=== PATIENT | female | born 1975 | race Caucasian/White ===

== ENCOUNTER 2021-08-30 12:55 | Outpatient (REF) | payer BC, SELFPAY | END 2021-08-30 12:56 | disposition home or self-care (01) | LOC: LBN 12:55 | PROVIDERS: PCP Nurse Practitioner; Visit Provider Physician Assistant Medical | DX: N39.0 Urinary tract infection, site not specified (principal) | CPT/HCPCS: 87086 ==

== ENCOUNTER 2021-09-20 19:05 | Outpatient (REF) | payer BC, SELFPAY ==
[2021-09-20 20:38] LABS: Abs Immature Grans 0.01 10^3/uL (0.0-0.06); Absolute Basophil Count 0.01 10^3/uL (0.0-0.2); Absolute Eosinophil Count 0.08 10^3/uL (0.0-0.7); Absolute Lymphocyte Count 2.34 10^3/uL (1.2-3.4); Absolute Monocyte Count 0.61 10^3/uL (0.1-0.8); Absolute Neutrophil Count 4.58 10^3/uL (1.2-6.7); Basophils % 0.1; HCT 38.5 % (36.0-46.0); HGB 12.5 g/dL (11.2-15.7); Immature Grans % 0.1; Lymphocytes % 30.7; MCH 27.3 pg (27.0-33.0); MCHC 32.5 % (32.0-36.0); MCV 84.1 fL (80-95); MPV 10.8 fL (8.0-11.0); Neutrophils % 60.1; Nucleated RBC 0 %; Platelet Count 272 10^3/uL (130-400); RBC 4.58 10^6/uL (3.93-5.22); RDW 12.1 % (11.7-14.6); RDW-SD 36.4 fL; WBC 7.63 10^3/uL (4.4-10.8)
[2021-09-20 21:17] LABS: ALT 42 U/L (14-59); AST 27 U/L (15-37); Albumin 3.9 g/dL (3.4-5.0); Alkaline Phosphatase 96 U/L (46-116); Anion Gap 7.5 mmol/L (3-11); BUN 15 mg/dL (7-18); Bilirubin, Total 0.3 mg/dL (0.2-1.0); CO2 27.5 mmol/L (21.0-32.0); CREATININE 0.8 mg/dL (0.55-1.02); Calcium 8.9 mg/dL (8.5-10.1); Chloride 106 mmol/L (98-107); Glucose 91 mg/dL (74-106); Potassium 4.3 mmol/L (3.5-5.1); Sodium 141 mmol/L (136-145); Total Protein 6.7 g/dL (6.4-8.2)
== END 2021-09-20 19:06 | disposition home or self-care (01) ==
LOC: LBN 19:05
PROVIDERS: PCP Nurse Practitioner; Visit Provider Physician Assistant Medical
DX: N39.0 Urinary tract infection, site not specified (principal); R39.82 Chronic bladder pain; R10.9 Unspecified abdominal pain
CPT/HCPCS: 80053; 85025

== ENCOUNTER 2021-10-29 01:18 | Outpatient (CLI) | payer BC, SELFPAY ==
[2021-10-29 22:58] LABS: COVID-19 PCR Negative (Negative); Source Nasal/Nares
== END 2021-10-29 01:19 | disposition home or self-care (01) ==
LOC: LBO 01:19
PROVIDERS: PCP Nurse Practitioner; Visit Provider Obstetrics & Gynecology
DX: Z20.822 Contact with and (suspected) exposure to COVID-19 (principal); Z01.818 Encounter for other preprocedural examination
CPT/HCPCS: 87635

== ENCOUNTER 2021-10-29 01:36 | Outpatient (CLI) | payer BC, SELFPAY ==
[2021-10-29 11:09] LABS: Abs Immature Grans 0.01 10^3/uL (0.0-0.06); Absolute Basophil Count 0.01 10^3/uL (0.0-0.2); Absolute Eosinophil Count 0.13 10^3/uL (0.0-0.7); Absolute Lymphocyte Count 2.19 10^3/uL (1.2-3.4); Absolute Monocyte Count 0.59 10^3/uL (0.1-0.8); Absolute Neutrophil Count 3.62 10^3/uL (1.2-6.7); Basophils % 0.2; HCT 36.8 % (36.0-46.0); HGB 11.7 g/dL (11.2-15.7); Immature Grans % 0.2; Lymphocytes % 33.4; MCH 26.8 pg (27.0-33.0); MCHC 31.8 % (32.0-36.0); MCV 84.2 fL (80-95); Neutrophils % 55.2; Nucleated RBC 0 %; Platelet Count 253 10^3/uL (130-400); RBC 4.37 10^6/uL (3.93-5.22); RDW 12.2 % (11.7-14.6); RDW-SD 37.2 fL; WBC 6.55 10^3/uL (4.4-10.8)
== END 2021-10-29 01:37 | disposition home or self-care (01) ==
LOC: LBO 01:36
PROVIDERS: PCP Nurse Practitioner; Visit Provider Obstetrics & Gynecology
DX: N90.7 Vulvar cyst (principal); R10.2 Pelvic and perineal pain; Z01.818 Encounter for other preprocedural examination; Z01.812 Encounter for preprocedural laboratory examination
CPT/HCPCS: 36415; 86850; 86900; 86901; 85025

== ENCOUNTER 2021-10-31 07:16 | Day surgery (SDC) | payer BC, SELFPAY ==
[2021-10-31 07:21] VITALS: BP 104/74; PULSE 78; RESP 16; TEMP 36.4; O2SAT 96
--- NOTE | 2021-10-31 07:59 | W.ANESPRE ---
General Info Date of Service Date Performed: 10/31/21 Height: 5 ft 1 in Weight: 64.8 kg Body Mass Index (BMI): 26.9 Surgical Procedure: Operation Date: 10/31/21 08:40 Proposed Procedure Side Surgeon p Excision Rt Labial Cyst Right Nara Post DO Meds Allergies and Home Medications Allergies Allergy/AdvReac Type Severity Reaction Status Date / Time bupropion [From Wellbutrin] Allergy Severe Pt states Unverified 10/31/21 07:49 serum sickness onion Allergy Severe Anaphylaxis Unverified 10/31/21 07:42 Home Medication Medication Instructions Recorded omeprazole 20 mg capsule,delayed 20 mg PO TID cap 09/12/21 release ibuprofen 200 mg capsule 600 mg PO BID 10/31/21 Current Visit Medications: Current Medications Generic Name Dose Route Start Last Admin Trade Name Freq PRN Reason Stop Dose Admin Ringer's Solution 1,000 mls @ 125 mls/hr 10/31/21 06:00 IV 11/12/21 23:59 INFUSION JULIO IV Miscellaneous Supplies 1 each 10/31/21 06:00 Iv Access IV 11/12/21 23:59 DIRECTED JULIO Sodium Chloride 0 ml 10/31/21 06:00 Normal Saline Flush 10 Ml Syr IV 11/12/21 23:59 PRN PRN Sodium Chloride 0 ml 10/31/21 06:00 Normal Saline 10 Ml Vial IJ 11/12/21 23:59 DIRECTED PRN Sterile Water 0 ml 10/31/21 06:00 Water,Injection,Sterile 10 Ml Vial IJ 11/12/21 23:59 DIRECTED PRN PFSH Active Problems Active Problems: Problem Status Onset Code Pelvic pain R10.2 Labial cyst N90.7 Hx of endometriosis Z87.42 Medical History Medical History (Updated 10/31/21 @ 07:49 by Jacey Harvey RN) Barretts esophagus Chronic bladder pain Hiatal hernia with GERD Left flank pain Tibial plateau fracture, left orif, metal in left tibia UTI (urinary tract infection) Medical History Comments:: left knee metal implants Surgical History Surgical History (Updated 10/31/21 @ 07:42 by Jacey Harvey RN) H/O hysterectomy with oophorectomy Unilateral oophorectomy for endometriosis History of cholecystectomy History of laparoscopy History of Magdaleno fundoplication History of partial gastrectomy Hx of section Tobacco Smoking/Tobacco Use Status: Former Tobacco Use Alcohol Alcohol Intake: never Substance Use Substance use type: does not use Prental History History 3 Para 2 Hx # Term Pregnancies 2 Multiple births Hx # Pregnancies Ectopic pregnancies AB induced Hx Number of Living Children 2 AB spontaneous Vital Signs and Lab Results Vital Signs Most Recent Vital Signs in EMR: Most Recent Vital Signs Temp Pulse Resp BP Pulse Ox 36.4 C L 78 16 104/74 96 10/31/21 07:21 10/31/21 07:21 10/31/21 07:21 10/31/21 07:21 10/31/21 07:21 Lab Results Blood Type / Crossmatch: Patient ABO/Rh B Positive 10/29/21 Antibody Screen NEGATIVE 10/29/21 Complete Blood Count: White Blood Count 6.55 10^3/uL (4.4-10.8) 10/29/21 11:00 10/29/21 Red Blood Count 4.37 10^6/uL (3.93-5.22) 10/29/21 11:00 10/29/21 Hemoglobin 11.7 g/dL (11.2-15.7) 10/29/21 11:00 10/29/21 Hematocrit 36.8 % (36.0-46.0) 10/29/21 11:00 10/29/21 Platelet Count 253 10^3/uL (130-400) 10/29/21 11:00 10/29/21 Complete Metabolic Panel: No Data to Display Liver Function Panel: No Data to Display Coagulation Panel: No Data to Display Cardiac Panel: No Data to Display Arterial Blood Gas: No Data to Display Venous Blood Gas: No Data to Display Pancreas Panel: No Data to Display Thyroid Panel: No Data to Display Infectious Disease: Coronavirus (COVID-19)(PCR) Negative (Negative) 10/29/21 11:04 10/29/21 Coronavirus 2019 Source Nasal/Nares 10/29/21 11:04 10/29/21 Blood Cultures: No Data to Display Toxicology Panel: No Data to Display Panel: No Data to Display Anesthesia Assessment and Plan Anesthesia History Personal History: PONV Family History: No Family History of Anesthesia Complications Exercise Tolerance Exercise Tolerance: Metabolic Equivalents>4 Pertinent Negatives Pertinent Negatives: No Symptoms of GERD, No Major Cardiovascular Symptoms or Complaints, No Major Pulmonary Symptoms or Complaints and No History of CVA/TIA Cardiac & Pulmonary Exam Cardiac Exam: Normal S1/S2 Heart Sounds Pulmonary Exam: Clear Bilateral Breath Sounds Implantable Cardiac Device Does patient have a Pacemaker or an ICD?: No Airway Exam Known Difficult Airway: No Mallampati Class: 2 Mouth Opening: Normal (> 3cm) Thyromental Distance: Greater than 3 cm Neck Range of Motion: Full ROM Neck Circumference: Normal Teeth Condition: Normal Dentition ASA Classification ASA Score: ASA 2 Emergency Case?: No NPO Status NPO Status: NPO Clears >2 hours, Solids >8 hours Status Status: History of Hysterectomy Anesthesia Plan Resuscitation Status: Full Code Anesthesia Technique: General Anesthesia Airway Planned: Natural Airway Monitors Used: Standard Monitors
[2021-10-31] MEDS: Lactated Ringers 1,000 ML 125 ML IV (08:10)
[2021-10-31 08:22] VITALS: BMI 26.9
[2021-10-31] MEDS: Lidocaine 1% Multi-Dose 50 ML VIAL (09:06)
--- NOTE | 2021-10-31 09:21 | LABIA_PTH ---
PATIENT: Mora Bolanos LOC: [facility] U#:[id number] AGE/SX: 46/F ROOM: RE10/31/[address]: Nara Post DO : 1975 BED: DIS: 10/31/2021 SPEC #: [id number] RECD: 10/31/21 12:51 STATUS: SOPHIE RE #: [id number] AMBER: 10/31/21 09:[address]: Nara Post DEPT: Surgical Specimen RECD BY: Silvia Cruz ENTERED: 10/31/21 12:52 SP TYPE: LABIA OTHR DR: Laura Ross Tissues: 1 - LABIA BX Procedures: GROSS AND MICRO LEVEL 3 Comments: [id number]
[2021-10-31 09:30] VITALS: PULSE 70; TEMP 36.4
--- NOTE | 2021-10-31 09:34 | W.PM.OP ---
Date of service: 10/31/21 Time of Service: 09:34 Operative Note Operative Note DATE OF PROCEDURE: 10/31/21 PRE-OP DIAGNOSIS: Labial cyst POST-OP DIAGNOSIS: same PROCEDURE: Excision of labial cyst, and removal of sebaceous cyst of the vulva SURGEON: Nara Post ANESTHESIA TYPE: MAC Refer to Anesthesia Record ESTIMATED BLOOD LOSS: 5 PATHOLOGY: other (1. Labial cyst) COMPLICATIONS: None Patient was transported to: same day Patient's condition: stable Indications: Symptomatic cyst of the right labia minora. Irritation from sebaceous cyst of the right labia majora Findings: 1 cm mobile right labial cyst. Small sebaceous cyst of the right labia majora Procedure Description: Patient taken the operating suite with an IV running where she is placed in dorsal supine position. Anesthesia administered. Then placed in the modified dorsolithotomy position in yellowfin stirrups and prepped and draped in the usual sterile fashion. Exam revealed a freely mobile approximately 1 cm cyst of the right labia minora and a very small sebaceous cyst at the 9 o'clock position of the vulva in the labia majora. Initial attention was turned to the freely mobile cyst. A 1 cm incision was made at the lateral aspect of the right labia minora. With meticulous blunt and sharp dissection around the cystic structure the entire cyst was elevated through the incision and removed. Base of the cyst cavity was then reapproximated with 4-0 Vicryl suture in a mattress fashion and skin edge reapproximated with 4-0 undyed Monocryl in a subcuticular fashion. Area was noted to be hemostatic. At this point, attention was turned to the sebaceous cyst which was infiltrated with lidocaine, 1% and incised. Sebaceous material removed. Cyst wall identified and removed. Puncture wound will heal by secondary intent. EBL: 5 mL Complications: None apparent Pathology: Right labial cyst for examination Anesthesia Per record Fluids: Crystalloid per anesthesia
[2021-10-31 10:00] VITALS: BP 113/67; PULSE 60; RESP 16; TEMP 36.5; O2SAT 100
[2021-10-31] MEDS: oxyCODONE 5 MG TAB PO (10:21)
[2021-10-31 11:15] VITALS: BP 110/65; PULSE 67; RESP 16; TEMP 36.2; O2SAT 99
--- NOTE | 2021-10-31 12:13 | W.ANESPOSTOP ---
Postoperative Evaluation Date, Time and Location Date Performed: 10/31/21 Time Performed: 11:28 Patient Location: Day Surgery Unit Vital Signs Most Recent Imported Vital Signs: Most Recent Vital Signs Temp Pulse Resp BP Pulse Ox 36.5 C 60 16 113/67 100 10/31/21 10:00 10/31/21 10:00 10/31/21 10:00 10/31/21 10:00 10/31/21 10:00 Pain Score Most Recent Pain Score: Most Recent Pain Score Pain Level 8 10/31/21 10:00 Assessment Mental Status: Awake (Alert & Oriented to Patient Baseline) Airway and Respiratory Function: Patent airway with normal (patient baseline) respiratory exam Cardiovascular Function: Hemodynamically Stable Hydration Status: Adequately Hydrated Nausea & Vomiting: No Nausea or Vomiting Pain: Pain is tolerable per patient (4/10) Peripheral Nerve Block: Patient did not receive a nerve block
== END 2021-10-31 11:30 | disposition home or self-care (01) ==
PROVIDERS: PCP Nurse Practitioner; Visit Provider Obstetrics & Gynecology
PROC: (CPT 11420; principal; 2021-10-31 08:30)
DX: N90.7 Vulvar cyst (principal); N94.89 Other specified conditions associated with female genital organs and menstrual cycle
CPT/HCPCS: 11420; 11421; 88305; 88304; J1100; J1885; J2001; J2405

== ENCOUNTER 2022-08-13 21:28 | Outpatient (REF) | payer BC, SELFPAY ==
[2022-08-13 21:50] LABS: Abs Immature Grans 0.01 10^3/uL (0.0-0.06); Absolute Basophil Count 0.02 10^3/uL (0.0-0.2); Absolute Eosinophil Count 0.04 10^3/uL (0.0-0.7); Absolute Lymphocyte Count 2.04 10^3/uL (1.2-3.4); Absolute Monocyte Count 0.43 10^3/uL (0.1-0.8); Absolute Neutrophil Count 3.17 10^3/uL (1.2-6.7); Basophils % 0.4; Eosinophils % 0.7; HGB 12.3 g/dL (11.2-15.7); Immature Grans % 0.2; Lymphocytes % 35.7; MCH 26.2 pg (27.0-33.0); MCHC 32.4 % (32.0-36.0); MCV 81 fL (80-95); MPV 11.2 fL (8.0-11.0); Monocytes % 7.5; Neutrophils % 55.5; Platelet Count 269 10^3/uL (130-400); RDW 12.1 % (11.7-14.6); RDW-SD 35.9 fL; WBC 5.71 10^3/uL (4.4-10.8)
[2022-08-13 21:52] LABS: ESR 10 mm/hr (0-20)
[2022-08-13 22:01] LABS: ALT 32 U/L (14-59); AST 29 U/L (15-37); Albumin 3.9 g/dL (3.4-5.0); Alkaline Phosphatase 122 U/L (46-116); Anion Gap 6.6 mmol/L (3-11); BUN 11 mg/dL (7-18); Bilirubin, Total 0.3 mg/dL (0.2-1.0); C-Reactive Protein < 0.05 mg/dL (0.0-0.3); CO2 29.4 mmol/L (21.0-32.0); CREATININE 0.9 mg/dL (0.55-1.02); Chloride 101 mmol/L (98-107); Estimated GFR 78.86 (mL/min/1.73m2); Glucose 95 mg/dL (74-106); Potassium 4.3 mmol/L (3.5-5.1); Sodium 137 mmol/L (136-145); Total Protein 6.9 g/dL (6.4-8.2)
[2022-08-15 10:30] LABS: Lyme Ab w Rflx to Lyme Confirm Negative (Negative)
[2022-08-15 10:37] LABS: Cyclic Citrullinated Peptide <2.5 U/mL (<5.0)
[2022-08-15 14:37] LABS: ANA Interpretation Positive (Negative); ANA Titer Pattern 1:320 Speckled
[2022-08-17 18:25] LABS: Anaplasma phagocytophilum Negative (Negative); B. miyamotoi PCR Negative (Negative); Babesia divergens/MO-1 Negative (Negative); Babesia duncani Negative (Negative); Babesia microti Negative (Negative); Ehrlichia chaffeensis Negative (Negative); Ehrlichia ewingii/canis Negative (Negative); Ehrlichia muris eauclairensis Negative (Negative)
== END 2022-08-13 21:29 | disposition home or self-care (01) ==
LOC: LBN 21:28
PROVIDERS: PCP Nurse Practitioner; Visit Provider Nurse Practitioner Family
DX: M25.59 Pain in other specified joint (principal); Z83.2 Family history of diseases of the blood and blood-forming organs and certain disorders involving the immune mechanism
CPT/HCPCS: 80053; 85652; 86200; 87798; 85025; 86038; 86140; 86618

== ENCOUNTER 2022-09-19 01:14 | Outpatient (CLI) | payer BC, SELFPAY ==
--- NOTE | 2022-09-19 | DI.US_ITS ---
Exam(s) US BREAST LT COMPLETE US BREAST RT COMPLETE MG MAMMO DIAGNOSTIC BI EXAM: MG MAMMO DIAGNOSTIC BI AND BILATERAL COMPLETE BREAST ULTRASOUND CLINICAL HISTORY: new increasing mass right side,2:00 outer,painful lumpy breast,n64.4,n63.10. TECHNIQUE: Bilateral CC and MLO views were performed and also performed 3D spot mammographic images of both breasts were obtained with 3D tomosynthesis technique and utilizing computer aided detection (CAD). Also performed complete bilateral breast ultrasound including all 4 quadrants of both breasts, the re troareolar regions, and both axillary regions. COMPARISON: Prior mammograms are from outside institution and have not yet arrived. This 47-year-old patient apparently feels 3 areas of lumps in the right breast. She has had a prior negative biopsy the right breast a few years ago. FINDINGS: DIAGNOSTIC BILATERAL MAMMOGRAM: There are no findings in the immediate vicinity of the biopsy marker clip in the right breast. In the anterior aspect right breast on the CC view there is a well-defined oval 5 x 3 millimeter nodu lar density located 3 cm in from the nipple, slightly medial of center. This has a small notch and m ay be a benign intramammary lymph node. Posterolaterally in the right breast there is a benign-appea ring lymph node noted peripherally. Skin marker is placed over 2 areas of which she feels are breast lumps on the right side placed and s pot compression view of this area was performed and did not reveal discernible nodule. In the opposite-left breast on the MLO view there is suggestion of nodular 2 adjacent small nodules l ocated 6 cm in from the nipple and with total measurement of 1.8 by 0.7 cm. These are less convincin g for a true nodule on 3D spot compression imaging through this area. There are no malignant-appearing microcalcification groups in either breast. No significant architec tural distortion nor skin thickening-traction. COMPLETE BILATERAL BREAST ULTRASOUND: Left breast: No significant focal findings in all 4 quadrants, further evidence that the finding on t he mammogram is most probably just asymmetric tissue, as opposed to a true nodule. No axillary adeno smiley. Right breast: There is no ultrasound finding to correspond to the 5 x 3 millimeter nodule seen anteri mal in the right breast on the CC view. Therefore this is probably a benign intramammary lymph node . In addition, there are no focal ultrasound findings in all 4 quadrants of the breast with this patien t scanned both supine and sitting. There are no ultrasound findings in the 2 areas where she apparen feli feels nodule. More superiorly there is a palpable finding which corresponds to a prominent rib on ultrasound. Ther e no breast tissue findings on ultrasound through this area. However, it is truly palpable as an asy mmetry. No adenopathy evident in the right axilla. IMPRESSION: 1. No radiographic evidence of malignancy in either breast. An addendum will follow if and when we r eceive the prior outside mammograms for comparison, particularly with respect of the left breast find ings. 2. Recommend repeat right breast mammogram and ultrasound in 6 months for follow-up of the mammograph ically visible nodule anteriorly in the right breast (which is not visible on ultrasound today and th erefore may represent a benign intramammary lymph node). 3. An addendum will follow when we receive the prior outside mammograms from [place]. If you have not received this addendum in 2 weeks then please contact us in the Radiology Department. 4. In the meantime I recommend CT or MRI scan of the chest wall for study of the anterior right chest wall abnormality which is palpable anteriorly on the right side.. The patient was informed of the findings and follow-up recommendations by myself prior to leaving the department today. BI-RADS Category 0 - Assessment Incomplete: Need additional imaging evaluation as described above and also be compared to her prior outside mammograms when they arrive. Breast Density - Category B - Scattered areas of fibroglandular density Breast density Category C or D implies that the patient has dense breast tissue. Dense breast tissue can make it harder to find cancer on a mammogram. Dense breast tissue is also associated with an incr eased risk of breast cancer. This information about the result of the mammogram report was provided to the patient to raise their awareness. Use this report when you speak with the patient about their risks for breast cancer, which includes their family history. At that time, you may recommend additional screening tests (Ultrasoun d or MRI) as these tests may add significant information. A negative radiographic report should not delay biopsy if a dominant or clinically suspicious mass is present. Up to ten percent of cancers are not identified on mammography. A negative report may reinforce clinical impression. Adenosis and dense breasts may obscure an underlying neoplasm. False positive reports average 6 to 10%. Patient will receive a letter notifying them of these results.
--- NOTE | 2022-09-19 06:45 | DI.RAD_ITS ---
Exam(s) XR WRIST LT COMPLETE EXAM: XR WRIST LT COMPLETE CLINICAL HISTORY: pain after trauma,m25.532. TECHNIQUE: 2D digital imaging was performed. COMPARISON: No exams were available for comparison FINDINGS: 3 views No fracture dislocation significant ulnar. Scaphoid appears unremarkable. Scapholunate distance nor mal. No osseous lesions. First carpometacarpal joint appears unremarkable. IMPRESSION: No significant osseous findings in the wrist. DATA REPOSITORY: RADIATION DOSE DELIVERED:
--- NOTE | 2022-09-19 06:45 | DI.US_ITS ---
Exam(s) US SOFT TISSUE EXTREMITY EXAM: US SOFT TISSUE EXTREMITY CLINICAL HISTORY: pain, lumps lateral aspect lt upper arm, m79.622. TECHNIQUE: Ultrasound was performed using standard protocol. COMPARISON: US US RENAL from 09/19/2021 FINDINGS: Sonographic assessment utilizing grayscale and color Doppler imaging was performed and targeted to th e area of clinical concern. There are 3 areas of apparent concern left upper extremity. Dedicated ultrasound of all 3 areas reveals no evidence of solid or significant cystic lesions. Also no obvious discernible lipomas at these locations. IMPRESSION: Negative ultrasound study of the areas concern in the left upper extremity. DATA REPOSITORY:
[2022-09-19 08:27] LABS: ESR 11 mm/hr (0-20)
[2022-09-19 08:28] LABS: HCT 39.2 % (36.0-46.0); HGB 12.4 g/dL (11.2-15.7); MCH 25.7 pg (27.0-33.0); MCHC 31.6 % (32.0-36.0); MCV 81 fL (80-95); MPV 10.2 fL (8.0-11.0); Platelet Count 228 10^3/uL (130-400); RBC 4.83 10^6/uL (3.93-5.22); RDW 12.1 % (11.7-14.6); WBC 5.31 10^3/uL (4.4-10.8)
[2022-09-19 09:14] LABS: ALT 27 U/L (14-59); AST 32 U/L (15-37); Albumin 3.9 g/dL (3.4-5.0); Alkaline Phosphatase 114 U/L (46-116); Anion Gap 7.9 mmol/L (3-11); BUN 13 mg/dL (7-18); Bilirubin, Total 0.5 mg/dL (0.2-1.0); CO2 29.1 mmol/L (21.0-32.0); CREATININE 0.8 mg/dL (0.55-1.02); Calcium 9.2 mg/dL (8.5-10.1); Chloride 104 mmol/L (98-107); Estimated GFR 90.83 (mL/min/1.73m2); Ferritin 13 ng/mL (8-252); Glucose 92 mg/dL (74-106); Potassium 4.2 mmol/L (3.5-5.1); Sodium 141 mmol/L (136-145); Total Protein 7.3 g/dL (6.4-8.2)
[2022-09-19 09:18] LABS: Iron 99 ug/dL (50-170); Total Iron Binding Capacity 458 ug/dL (250-450)
[2022-09-19 09:28] LABS: C-Reactive Protein < 0.05 mg/dL (0.0-0.3)
== END 2022-09-19 01:34 ==
PROVIDERS: PCP Nurse Practitioner Family; Visit Provider Nurse Practitioner Family
DX: N64.4 Mastodynia; M79.622 Pain in left upper arm; M25.532 Pain in left wrist; D50.9 Iron deficiency anemia, unspecified; R71.8 Other abnormality of red blood cells; R79.89 Other specified abnormal findings of blood chemistry; G25.81 Restless legs syndrome; R92.8 Other abnormal and inconclusive findings on diagnostic imaging of breast
CPT/HCPCS: 36415; 76642; 76881; 77062; 77066; 80053; 85027; 85652; 73110; 82728; 83540; 83550; 86140; G0279

== ENCOUNTER 2022-10-08 18:36 | Outpatient (CLI) | payer BC, SELFPAY ==
--- NOTE | 2022-10-08 18:30 | RT.EKG_ITS ---
APPROVED REPORT Exam: Resting ECG Reason for Exam: syncope Patient Location: O HR:65 bpm ECG Measurements Heart Rate 65 AXIS OK 129 P 3 QRSd 96 QRS 4 QT 396 T 39 QTc 412 Conclusion Sinus rhythm...normal P axis, V-rate 50- 99 Normal Electrocardiogram
== END 2022-10-08 18:37 | disposition home or self-care (01) ==
LOC: DI.CM 20:23
PROVIDERS: PCP Nurse Practitioner Family; Visit Provider Nurse Practitioner Family
DX: R55 Syncope and collapse (principal)
CPT/HCPCS: 93010

== ENCOUNTER 2022-11-22 00:08 | Outpatient (CLI) | payer BC, SELFPAY ==
--- NOTE | 2022-11-22 10:30 | DI.DEXA_ITS ---
Exam(s) XR DEXA BONE DENSITY W/WO AL EXAM: XR DEXA BONE DENSITY W/WO AL CLINICAL HISTORY: screening for osteoporosis in postmenopausal woman,z78.0 TECHNIQUE: COMPARISON: No exams were available for comparison FINDINGS: Lateral Spine Image: Unremarkable. No compression deformities identified. Left hip: Total T-Score: -1.9 Total Z-Score: -1.5 T- and Z-scores: Findings consistent with osteopenia. Lumbar Spine: Total T-Score: -2.1 Total Z-Score: -1.4 T- and Z-scores: Findings are consistent with osteopenia. IMPRESSION: Osteopenia in the lumbar spine and left hip.
== END 2022-11-22 00:28 ==
LOC: DI 00:08
PROVIDERS: PCP Nurse Practitioner Family; Visit Provider Nurse Practitioner Family
DX: Z78.0 Asymptomatic menopausal state (principal); Z13.820 Encounter for screening for osteoporosis; M85.88 Other specified disorders of bone density and structure, other site
CPT/HCPCS: 77080

== ENCOUNTER 2023-03-06 17:07 | Outpatient (CLI) | payer OTHER, SELFPAY ==
[2023-03-06 16:47] LABS: ESR 5 mm/hr (0-20); HCT 36.8 % (36.0-46.0); HGB 11.8 g/dL (11.2-15.7); MCH 25.6 pg (27.0-33.0); MCHC 32.1 % (32.0-36.0); MCV 80 fL (80-95); MPV 9.8 fL (8.0-11.0); Platelet Count 278 10^3/uL (130-400); RBC 4.61 10^6/uL (3.93-5.22); RDW 12.9 % (11.7-14.6); RDW-SD 36.6 fL
[2023-03-06 17:31] LABS: ALT 28 U/L (14-59); AST 22 U/L (15-37); Albumin 3.7 g/dL (3.4-5.0); Alkaline Phosphatase 116 U/L (46-116); BUN 11 mg/dL (7-18); Bilirubin, Total 0.2 mg/dL (0.2-1.0); CREATININE 0.8 mg/dL (0.55-1.02); Calcium 8.9 mg/dL (8.5-10.1); Chloride 105 mmol/L (98-107); Estimated GFR 90.83 (mL/min/1.73m2); Glucose 116 mg/dL (74-106); Potassium 4.5 mmol/L (3.5-5.1); Sodium 143 mmol/L (136-145); Total Protein 7.3 g/dL (6.4-8.2)
[2023-03-06 17:43] LABS: Iron 26 ug/dL (50-170)
[2023-03-07 10:51] LABS: Lab Add On Test DONE
[2023-03-07 11:14] LABS: Total Iron Binding Capacity 468 ug/dL (250-450)
== END 2023-03-06 17:08 | disposition home or self-care (01) ==
LOC: LBO 17:07
PROVIDERS: PCP Nurse Practitioner Family; Visit Provider Nurse Practitioner Family
DX: D50.9 Iron deficiency anemia, unspecified (principal); M25.50 Pain in unspecified joint; R79.89 Other specified abnormal findings of blood chemistry
CPT/HCPCS: 36415; 80053; 85027; 85652; 83540; 83550

== ENCOUNTER 2023-03-13 04:20 | Outpatient (CLI) | payer OTHER, SELFPAY ==
[2023-03-13 16:45] LABS: HCT 36.2 % (36.0-46.0); HGB 11.4 g/dL (11.2-15.7); MCH 25.5 pg (27.0-33.0); MCHC 31.5 % (32.0-36.0); MCV 81 fL (80-95); MPV 10.5 fL (8.0-11.0); Platelet Count 271 10^3/uL (130-400); RBC 4.47 10^6/uL (3.93-5.22); RDW 12.7 % (11.7-14.6); RDW-SD 37.3 fL; WBC 6.85 10^3/uL (4.4-10.8)
[2023-03-13 17:44] LABS: Iron 41 ug/dL (50-170); Total Iron Binding Capacity 452 ug/dL (250-450)
[2023-03-13 17:58] LABS: Ferritin 7 ng/mL (8-252)
[2023-03-17 13:08] LABS: IgA 212 mg/dL (85-499); Interpretation (See Note); Tissue Transglutaminase IgA <1.2 U/mL (<4.0)
== END 2023-03-13 04:21 | disposition home or self-care (01) ==
LOC: LBO 04:20
PROVIDERS: PCP Nurse Practitioner Family; Visit Provider Nurse Practitioner Family
DX: D50.9 Iron deficiency anemia, unspecified (principal)
CPT/HCPCS: 82784; 83516; 85027; 82728; 83540; 83550

== ENCOUNTER 2023-07-02 10:07 | Outpatient (CLI) | payer OTHER, SELFPAY ==
[2023-07-02 08:38] LABS: HCT 35.9 % (36.0-46.0); HGB 11.2 g/dL (11.2-15.7); MCH 24.8 pg (27.0-33.0); MCHC 31.2 % (32.0-36.0); MCV 80 fL (80-95); MPV 10.1 fL (8.0-11.0); Platelet Count 235 10^3/uL (130-400); RBC 4.51 10^6/uL (3.93-5.22); RDW 12.8 % (11.7-14.6); RDW-SD 36.2 fL; WBC 4.74 10^3/uL (4.4-10.8)
[2023-07-02 09:14] LABS: Iron 50 ug/dL (50-170); Total Iron Binding Capacity 468 ug/dL (250-450)
[2023-07-02 09:22] LABS: ALT 26 U/L (14-59); AST 24 U/L (15-37); Albumin 3.6 g/dL (3.4-5.0); Alkaline Phosphatase 120 U/L (46-116); Anion Gap 5.9 mmol/L (3-11); BUN 10 mg/dL (7-18); Bilirubin, Total 0.5 mg/dL (0.2-1.0); CO2 29.1 mmol/L (21.0-32.0); CREATININE 0.8 mg/dL (0.55-1.02); Calcium 9.3 mg/dL (8.5-10.1); Chloride 104 mmol/L (98-107); Estimated GFR 90.27 (mL/min/1.73m2); Ferritin 9 ng/mL (8-252); Glucose 90 mg/dL (74-106); Sodium 139 mmol/L (136-145); Total Protein 7.2 g/dL (6.4-8.2)
== END 2023-07-02 10:08 | disposition home or self-care (01) ==
LOC: LBO 10:07
PROVIDERS: PCP Nurse Practitioner Family; Visit Provider Nurse Practitioner Family
DX: D50.9 Iron deficiency anemia, unspecified (principal); R79.89 Other specified abnormal findings of blood chemistry
CPT/HCPCS: 36415; 80053; 85027; 82728; 83540; 83550

== ENCOUNTER 2023-11-05 14:07 | Outpatient (REF) | payer OTHER, SELFPAY ==
[2023-11-06 21:28] LABS: Bilirubin Negative (Negative); Blood Negative (Negative); Clarity Clear (Clear); Glucose Negative (Negative); Ketones Negative (Negative); Leukocyte Esterase Small (Negative); Nitrite Positive (Negative); Specific Gravity 1.025 (1.005-1.025); Urobilinogen 0.2 mg/dL (Up to 0.2); pH 5.5 (5-8)
[2023-11-06 21:37] LABS: Bacteria Few HPF (Negative); C & S Indicated? Yes; Casts Negative LPF (Negative); Crystals Negative HPF (Negative); Epithelial Cells Few HPF (Negative); Mucus Trace (Negative); RBC 0-2 HPF (0-2)
== END 2023-11-05 14:08 | disposition home or self-care (01) ==
LOC: LBN 14:07
PROVIDERS: PCP Nurse Practitioner Family; Visit Provider Nurse Practitioner Family
DX: R30.0 Dysuria (principal); R35.0 Frequency of micturition; R31.9 Hematuria, unspecified
CPT/HCPCS: 87077; 81003; 81015; 87086; 87186

== ENCOUNTER 2023-11-11 09:44 | Outpatient (CLI) | payer OTHER, SELFPAY ==
[2023-11-11 07:49] LABS: Abs Immature Grans 0.01 10^3/uL (0.0-0.06); Absolute Basophil Count 0.01 10^3/uL (0.0-0.2); Absolute Eosinophil Count 0.05 10^3/uL (0.0-0.7); Absolute Lymphocyte Count 2.17 10^3/uL (1.2-3.4); Absolute Neutrophil Count 2.43 10^3/uL (1.2-6.7); Basophils % 0.2; HGB 12.8 g/dL (11.2-15.7); Immature Grans % 0.2; Lymphocytes % 42.8; MCH 25.6 pg (27.0-33.0); MCV 80 fL (80-95); MPV 9.7 fL (8.0-11.0); Monocytes % 7.9; Neutrophils % 47.9; Platelet Count 233 10^3/uL (130-400); RDW 14.6 % (11.7-14.6); RDW-SD 42.5 fL; WBC 5.07 10^3/uL (4.4-10.8)
[2023-11-11 08:05] LABS: ALT 52 U/L (14-59); AST 44 U/L (15-37); Albumin 3.7 g/dL (3.4-5.0); Alkaline Phosphatase 125 U/L (46-116); Anion Gap 7.8 mmol/L (3-11); BUN 8 mg/dL (7-18); Bilirubin, Total 0.4 mg/dL (0.2-1.0); CO2 29.2 mmol/L (21.0-32.0); CREATININE 0.8 mg/dL (0.55-1.02); Calcium 9.1 mg/dL (8.5-10.1); Chloride 105 mmol/L (98-107); Estimated GFR 90.27 (mL/min/1.73m2); Glucose 63 mg/dL (74-106); Potassium 4.3 mmol/L (3.5-5.1); Sodium 142 mmol/L (136-145); Total Protein 7.1 g/dL (6.4-8.2)
== END 2023-11-11 09:45 | disposition home or self-care (01) ==
LOC: LBO 09:44
PROVIDERS: PCP Nurse Practitioner Family; Visit Provider Physician Assistant
DX: R10.9 Unspecified abdominal pain (principal)
CPT/HCPCS: 36415; 80053; 85025

== ENCOUNTER 2023-12-23 14:40 | Outpatient (REF) | payer OTHER, SELFPAY ==
[2023-12-23 21:06] LABS: Abs Immature Grans 0.02 10^3/uL (0.0-0.06); Absolute Basophil Count 0.03 10^3/uL (0.0-0.2); Absolute Eosinophil Count 0.07 10^3/uL (0.0-0.7); Absolute Lymphocyte Count 2.58 10^3/uL (1.2-3.4); Absolute Monocyte Count 0.39 10^3/uL (0.1-0.8); Absolute Neutrophil Count 3.58 10^3/uL (1.2-6.7); Basophils % 0.4; HCT 43.3 % (36.0-46.0); HGB 14.2 g/dL (11.2-15.7); Immature Grans % 0.3; Lymphocytes % 38.7; MCHC 32.8 % (32.0-36.0); MCV 82 fL (80-95); MPV 10.7 fL (8.0-11.0); Monocytes % 5.8; Neutrophils % 53.8; Platelet Count 260 10^3/uL (130-400); RBC 5.26 10^6/uL (3.93-5.22); RDW-SD 41.6 fL; WBC 6.67 10^3/uL (4.4-10.8)
[2023-12-23 21:20] LABS: Iron 84 ug/dL (50-170)
[2023-12-23 21:40] LABS: Hemoglobin A1C 5.5 % (<5.7)
[2023-12-23 21:43] LABS: ALT 43 U/L (14-59); AST 30 U/L (15-37); Albumin 4.1 g/dL (3.4-5.0); Alkaline Phosphatase 134 U/L (46-116); Anion Gap 10.8 mmol/L (3-11); BUN 11 mg/dL (7-18); Bilirubin, Total 0.4 mg/dL (0.2-1.0); CO2 27.2 mmol/L (21.0-32.0); CREATININE 0.8 mg/dL (0.55-1.02); Calcium 9.1 mg/dL (8.5-10.1); Chloride 105 mmol/L (98-107); Estimated GFR 90.27 (mL/min/1.73m2); Ferritin 161 ng/mL (8-252); Folate 12.6 ng/mL (8.6-20.0); Glucose 126 mg/dL (74-106); Potassium 4.3 mmol/L (3.5-5.1); Sodium 143 mmol/L (136-145); Total Protein 7.2 g/dL (6.4-8.2); Vitamin B12 392 pg/mL (193-986); Vitamin D 25 Total 9.6 ng/mL (30-100)
[2023-12-24 21:52] LABS: Parathyroid Hormone,Intact 58 pg/mL (19-88)
[2023-12-25 08:50] LABS: Prealbumin 24 mg/dL (20-40)
[2023-12-27 11:54] LABS: Thiamine (Vitamin B1), WB 110 nmol/L (70-180)
== END 2023-12-23 14:41 | disposition home or self-care (01) ==
LOC: LBN 14:40
PROVIDERS: PCP Nurse Practitioner Family; Visit Provider Nurse Practitioner Family
DX: Z90.3 Acquired absence of stomach [part of] (principal); R79.89 Other specified abnormal findings of blood chemistry; D50.9 Iron deficiency anemia, unspecified; R71.8 Other abnormality of red blood cells
CPT/HCPCS: 80053; 82306; 82607; 82728; 82746; 83036; 83540; 83970; 84134; 84425; 85025

== ENCOUNTER 2024-01-15 05:02 | Outpatient (CLI) | payer OTHER, SELFPAY ==
[2024-01-15 07:37] LABS: Abs Immature Grans 0.01 10^3/uL (0.0-0.06); Absolute Basophil Count 0.01 10^3/uL (0.0-0.2); Absolute Eosinophil Count 0.05 10^3/uL (0.0-0.7); Absolute Lymphocyte Count 2.05 10^3/uL (1.2-3.4); Absolute Monocyte Count 0.35 10^3/uL (0.1-0.8); Absolute Neutrophil Count 2.81 10^3/uL (1.2-6.7); Basophils % 0.2 %; Eosinophils % 0.9 %; HCT 41.2 % (36.0-46.0); HGB 13.4 g/dL (11.2-15.7); Immature Grans % 0.2 %; Lymphocytes % 38.8 %; MCH 27.2 pg (27.0-33.0); MCHC 32.5 % (32.0-36.0); MCV 84 fL (80-95); MPV 9.9 fL (8.0-11.0); Monocytes % 6.6 %; Neutrophils % 53.3 %; Platelet Count 242 10^3/uL (130-400); RBC 4.92 10^6/uL (3.93-5.22); RDW 13.5 % (11.7-14.6); RDW-SD 41.6 fL; WBC 5.28 10^3/uL (4.4-10.8)
[2024-01-15 08:04] LABS: Ferritin 152 ng/mL (8-252)
== END 2024-01-15 05:03 | disposition home or self-care (01) ==
LOC: LBO 05:02
PROVIDERS: PCP Nurse Practitioner Family; Visit Provider Internal Medicine Hematology & Oncology
DX: D50.0 Iron deficiency anemia secondary to blood loss (chronic) (principal)
CPT/HCPCS: 36415; 82728; 85025

== ENCOUNTER 2024-03-04 00:55 | Outpatient (CLI) | payer OTHER, SELFPAY ==
--- OUTSIDE RECORDS SUMMARY | 2024-03-04 00:56 | XMS_ITS | Continuity of Care Document ---
Author Name Unknown Organization [facility] Ambulatory Clinics Address [address] [place] [address] Care Team Providers Care Heating And Refrigeration Inspector Name Role Phone Mike Goodman Primary Care Physician [phone] Encounter [facility] NBR [id number] Date(s): 11/07/22 - 11/07/22 [facility] Ambulatory Clinics [address] [place] [address]- [place] Encounter Diagnosis GERD - Gastro-esophageal reflux disease(Discharge Diagnosis) - 11/07/22 Queen's esophagus(Discharge Diagnosis) - 11/07/22 Elevated liver function tests(Discharge Diagnosis) - 11/07/22 Family history of colon cancer(Discharge Diagnosis) - 11/07/22 S/P partial gastrectomy(Discharge Diagnosis) - 11/07/22 S/P cholecystectomy(Discharge Diagnosis) - 11/07/22 NSAID long-term use(Discharge Diagnosis) - 11/07/22 Fatty liver(Discharge Diagnosis) - 11/07/22 Nausea(Discharge Diagnosis) - 11/07/22 Epigastric pain(Discharge Diagnosis) - 11/07/22 Hematochezia(Discharge Diagnosis) - 11/07/22 Anorexia(Discharge Diagnosis) - 11/07/22 Pyrosis(Discharge Diagnosis) - 11/07/22 Globus sensation(Discharge Diagnosis) - 11/07/22 Discharge Disposition: Home or Self Care Attending Physician: Rehana Solorio APRN Allergies, Adverse Reactions, Alerts Substance Reaction Severity Status buPROPion Unknown Active Onion Unknown Active Assessment and Plan Future Appointments Future Scheduled Tests Laboratory* Celiac Disease Comprehensive LC 11/07/22 Radiology* US Abdomen Limited 11/07/22 Functional Status 11/07/22 Other exposure to Infectious Disease Non e Medications amitriptyline 10 mg oral tablet 20 mg = 2 tab, Oral, every day at bedtime, # 180 tab, 0 Refill(s) Start Date: 11/06/22 Status: Ordered doxycycline hyclate 100 mg oral capsule 100 mg = 1 cap, Oral, Daily, # 7 cap, 0 Refill(s) Start Date: 11/06/22 Stop Date: 11/13/22 Status: Ordered ibuprofen 800 mg oral tablet 800 mg = 1 tab, Oral, every 6 hr, # 40 tab, 0 Refill(s) Start Date: 11/06/22 Status: Ordered omeprazole 20 mg oral delayed release tablet 20 mg = 1 tab, Oral, Daily, # 90 tab, 0 Refill(s) Start Date: 11/06/22 Status: Ordered Problem List Condition Confirmation Course Effective Dates Status H ealth Status Informant Queen's esophagus Confirmed Active Diaphragmatic hernia Confirmed Active Epigastric pain Confirmed Active Family history of colon cancer Confirmed Active Globus sensation Confirmed Active GERD - Gastro-esophageal reflux disease Confirmed Active Pyrosis Confirmed Active Hematochezia Confirmed Active S/P cholecystectomy Confirmed Active History of endometriosis Confirmed Active S/P partial gastrectomy Confirmed Active Elevated liver function tests Confirmed Active Anorexia Confirmed Active Nausea Confirmed Active NSAID long-term use Confirmed Active Pelvic pain syndrome Confirmed Active Fatty liver Confirmed Active Procedures Procedure Date Related Diagnosis Body Site Status section Complete d Cholecystectomy Completed Dilation and curettage Co mpleted Hysterectomy Completed Magdaleno fundoplication Com pleted Oophorectomy Completed Partial gastrectomy Compl eted Vital Signs Most recent to oldest [Reference Range]: 1 Temperature Temporal Artery [36-38 Deg C ] 36.9 Deg C (11/07/22 4:04 PM) Apical Heart Rate [60-100 bpm] 92 bpm (11/07/22 4:04 PM) Blood Pressure [90-140/60-90 mmHg] 110/7 2mmHg (11/07/22 4:04 PM) Weight 68.9 kg (11/07/22 4:04 PM) Weight Measured (lbs) 151.898 lb (11/07/22 4:04 PM) [place] Body Weight Calculated 48.95 kg (11/07/22 4:04 PM) Height 156.21 cm (11/07/22 4:04 PM) Height/Length Measured (inches) 61.5 inc h (11/07/22 4:04 PM) BSA Measured 1.73 m2 (11/07/22 4:04 PM) Body Mass Index 28.24 kg/m2 (11/07/22 4:04 PM) Social History Social History Type Response Tobacco Former tobacco user Tobacco Use:. Sex Physician Outpatient Note * Rehana Solorio APRN: PERFORM Event Display: Office Clinic Note Physician Authored Date: [id number] MEAGAN SCHWARTZ :1975 Age:47 years Sex:Female Visit Date:11/07/2022 Primary Care Physician: Mike Goodman Chief Complaint Gastroparesis and elevated liver functions History of Present Illness Patient is a 47-year-old female here today at the request of Mike Goodman APRN for gastroparesis and elevated liver functions. ??This is an initial??consult.?? Patient has a history of a hiatal hernia??with GERD??and is status post partial gastrectomy. 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 Patient reports an extensive cardiac history??of??GERD having manometryand pH testing. ??She has had a Magdaleno fundoplication but slipped and had a repair. ??She ended up with a partial gastrectomy??afterwards.?? She takes omeprazole 20 mg 3 times a day before meals??andstill has pyrosis at night. ??She states pantoprazole 40 mg twice daily was not beneficial??and didnot improve her pH.?? She uses Motrin 800 mg twice daily.?? Her appetite is diminished and has nausea.?? Complains of epigastric pain. ?? She also complains of narrow stools that are changed. ??They are anywhere from [place] form 4-7.?? She has 2-3 bowel movements daily. ??Has hematochezia.?She has had??loose stools since cholecystectomy 7 years ago.? She reports??being told she has fatty liver disease??and has had elevated liver functions in the past.?? She cannot recall??what work-up she has had.?.? She had a cholecystectomy??laparoscopy,??Magdaleno, and partial gastrectomy. ?? She reports a history of endometriosis and has??rectal discomfort with intercourse.?? 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 ?? Labs on 09/19/2022 showed CBC,??normal. ??CRP normal left??05.?? Platelets were 228, AST 32, ALT 27. ??Fib 4 score based on these labs were 1.11??not indicative of cirrhosis. ?? Patient had a CT of the chest without contrast??on 09/27/2022 that was normal. ?? Patient has had extensive GI work-up at [facility], [facility]??at [facility].?? We will get a copy of those reports for review. ?? She states she has poor onset of pain in the colon or stomach cancer??both parents??are in their 50s.?? She was advised to have genetic testing but due to cost??was prohibitive. ?? Patient is being worked??up by cardiology for syncopal episodes. Review of Systems Pertinent positives and negatives are discussed in HPI. Physical Exam Vitals & Measurements T:??36.9?C ??(Temporal Artery)?? HR:??92??(Apical)?? BP:??110/72?? SpO2:??98%?? HT:??156.21??cm?? WT:??68.9??kg?? BMI:??28.24?? BSA:??1.73?? General: Well-nourished well-developed??female??in no acute distress. HEENT: Head is normocephalic, trachea midline and no cervical lymphadenopathy. ??Sclera are clear. Respiratory: Respirations are even and unlabored. ??Lungs are clear to auscultation. Cardiovascular: Regular rate and rhythm with S1 and S2. Abdomen: Positive bowel sounds x4 quadrants, no masses, no guarding, no tenderness. ??No hepatosplenomegaly. ??Abdomen is soft. Skin: Warm, dry, and pink. ??No spider angiomata, palmar erythema. Neurological: Alert and oriented x3, speech is clear and gait is steady. Psychological: Pleasant, calm and cooperative. Assessment/Plan 1.??GERD - Gastro-esophageal reflux disease??K21.9 Patient still has pyrosis despite omeprazole 20 mg 3 times a day which works the best for her. ??She has had a Magdaleno,??repair of Magdaleno??and a partial gastric gastrectomy.?? She uses??Motrin 800 mg twice daily. ??She has been advised to??avoid NSAIDs,??to eat small frequent meals,??to avoid acid reflux during foods and to avoid??eating 3 hours before bedtime.?? Patient should undergo EGD??for reevaluation??of mucosal injury, inflammation, H. pylori infection and celiac disease. ??She also has a history of Queen's esophagus with??with dysplasia??that has been ablated. Ordered: Actin (Smooth Muscle) Antibody LC, Blood, Routine, 11/07/22, Once, Lab Collect, GERD - Gastro-esophageal reflux disease Queen's esophagus Elevated liver function tests, Order for future visit [id number], Serum LC, Blood, Routine, 11/07/22, Once, Lab Collect, GERD - Gastro-esophageal reflux disease Queen's esophagus Elevated liver function tests, Order for future visit CBC w/ Diff, Blood, Routine, 11/07/22, Once, Lab Collect, GERD - Gastro- esophageal reflux disease Queen's esophagus Elevated liver function tests, Order for future visit Celiac Disease Comprehensive LC, Blood, Routine, 11/07/22, Once, Lab Collect, GERD - Gastro-esophageal reflux disease Queen's esophagus Elevated liver function tests, Order for future visit Ceruloplasmin LC, Blood, Routine, 11/07/22, Once, Lab Collect, GERD - Gastro- esophageal reflux disease Queen's esophagus Elevated liver function tests, Order for future visit Comprehensive Metabolic Panel, Blood, Routine, 11/07/22, Once, Lab Collect, GERD - Gastro-esophageal reflux disease Queen's esophagus Elevated liver function tests, Order for future visit Ferritin, Blood, Routine, 11/07/22, Once, Lab Collect, GERD - Gastro-esophageal reflux disease Queen's esophagus Elevated liver function tests, Order for future visit Follow-up Appointment Request [email or web address], *Est. 11/28/22 +/- 4 days, Future Order, In Approximately, [facility] Gastroenterology Hep A Ab, Total LC, Blood, Routine, 11/07/22, Once, Lab Collect, GERD - Gastro- esophageal reflux disease Queen's esophagus Elevated liver function tests, Order for future visit Hep B Core Ab, Tot LC, Blood, Routine, 11/07/22, Once, Lab Collect, GERD - Gastro-esophageal refluxdisease Queen's esophagus Elevated liver function tests, Order for future visit Hepatitis B Surface Antibody, Blood, Routine, 11/07/22, Once, Lab Collect, GERD - Gastro-esophagealreflux disease Queen's esophagus Elevated liver function tests, Order for future visit Hepatitis B Surface Antigen, Blood, Routine, 11/07/22, Once, Lab Collect, GERD - Gastro-esophageal reflux disease Queen's esophagus Elevated liver function tests, Order for future visit Hepatitis C Antibody, Blood, Routine, 11/07/22, Once, Lab Collect, GERD - Gastro-esophageal reflux disease Queen's esophagus Elevated liver function tests, Order for future visit Iron Panel, Blood, Routine, 11/07/22, Once, Lab Collect, GERD - Gastro- esophageal reflux disease Queen's esophagus Elevated liver function tests, Order for future visit Liver-Kidney Microsomal Ab LC, Blood, Routine, 11/07/22, Once, Lab Collect, GERD - Gastro-esophageal reflux disease Queen's esophagus Elevated liver function tests, Order for future visit Mitochondrial (M2) Antibody LC, Blood, Routine, 11/07/22, Once, Lab Collect, GERD - Gastro-esophageal reflux disease Queen's esophagus Elevated liver function tests, Order for future visit Abdomen Limited, 11/07/22, Routine, Reason: elevated liver functions, Transport Mode: Ambulatory, GERD - Gastro-esophageal reflux disease Queen's esophagus Elevated liver function tests ?? 2.??Queen's esophagus??K22.70 As above. Ordered: Actin (Smooth Muscle) Antibody LC, Blood, Routine, 11/07/22, Once, Lab Collect, GERD - Gastro-esophageal reflux disease Queen's esophagus Elevated liver function tests, Order for future visit [id number], Serum LC, Blood, Routine, 11/07/22, Once, Lab Collect, GERD - Gastro-esophageal reflux disease Queen's esophagus Elevated liver function tests, Order for future visit CBC w/ Diff, Blood, Routine, 11/07/22, Once, Lab Collect, GERD - Gastro- esophageal reflux disease Queen's esophagus Elevated liver function tests, Order for future visit Celiac Disease Comprehensive LC, Blood, Routine, 11/07/22, Once, Lab Collect, GERD - Gastro-esophageal reflux disease Queen's esophagus Elevated liver function tests, Order for future visit Ceruloplasmin LC, Blood, Routine, 11/07/22, Once, Lab Collect, GERD - Gastro- esophageal reflux disease Queen's esophagus Elevated liver function tests, Order for future visit Comprehensive Metabolic Panel, Blood, Routine, 11/07/22, Once, Lab Collect, GERD - Gastro-esophageal reflux disease Queen's esophagus Elevated liver function tests, Order for future visit Ferritin, Blood, Routine, 11/07/22, Once, Lab Collect, GERD - Gastro-esophageal reflux disease Queen's esophagus Elevated liver function tests, Order for future visit Follow-up Appointment Request [email or web address], *Est. 11/28/22 +/- 4 days, Future Order, In Approximately, [facility] Gastroenterology Hep A Ab, Total LC, Blood, Routine, 11/07/22, Once, Lab Collect, GERD - Gastro- esophageal reflux disease Queen's esophagus Elevated liver function tests, Order for future visit Hep B Core Ab, Tot LC, Blood, Routine, 11/07/22, Once, Lab Collect, GERD - Gastro-esophageal refluxdisease Queen's esophagus Elevated liver function tests, Order for future visit Hepatitis B Surface Antibody, Blood, Routine, 11/07/22, Once, Lab Collect, GERD - Gastro-esophagealreflux disease Queen's esophagus Elevated liver function tests, Order for future visit Hepatitis B Surface Antigen, Blood, Routine, 11/07/22, Once, Lab Collect, GERD - Gastro-esophageal reflux disease Queen's esophagus Elevated liver function tests, Order for future visit Hepatitis C Antibody, Blood, Routine, 11/07/22, Once, Lab Collect, GERD - Gastro-esophageal reflux disease Queen's esophagus Elevated liver function tests, Order for future visit Iron Panel, Blood, Routine, 11/07/22, Once, Lab Collect, GERD - Gastro- esophageal reflux disease Queen's esophagus Elevated liver function tests, Order for future visit Liver-Kidney Microsomal Ab LC, Blood, Routine, 11/07/22, Once, Lab Collect, GERD - Gastro-esophageal reflux disease Queen's esophagus Elevated liver function tests, Order for future visit Mitochondrial (M2) Antibody LC, Blood, Routine, 11/07/22, Once, Lab Collect, GERD - Gastro-esophageal reflux disease Qeuen's esophagus Elevated liver function tests, Order for future visit US Abdomen Limited, 11/07/22, Routine, Reason: elevated liver functions, Transport Mode: Ambulatory, GERD - Gastro-esophageal reflux disease Queen's esophagus Elevated liver function tests ?? 3.??Elevated liver function tests??R79.89 Labs ordered to assess for hemochromatosis, viral and autoimmune hepatitis. ??Abdominal ultrasound also ordered.?? Will discuss further at her follow-up.?? Fib 4 score does not suggest cirrhosis.?? We will also test??for immunity to hepatitis a and B. Ordered: Actin (Smooth Muscle) Antibody LC, Blood, Routine, 11/07/22, Once, Lab Collect, GERD - Gastro-esophageal reflux disease Queen's esophagus Elevated liver function tests, Order for future visit [id number], Serum LC, Blood, Routine, 11/07/22, Once, Lab Collect, GERD - Gastro-esophageal reflux disease Queen's esophagus Elevated liver function tests, Order for future visit CBC w/ Diff, Blood, Routine, 11/07/22, Once, Lab Collect, GERD - Gastro- esophageal reflux disease Queen's esophagus Elevated liver function tests, Order for future visit Celiac Disease Comprehensive LC, Blood, Routine, 11/07/22, Once, Lab Collect, GERD - Gastro-esophageal reflux disease Queen's esophagus Elevated liver function tests, Order for future visit Ceruloplasmin LC, Blood, Routine, 11/07/22, Once, Lab Collect, GERD - Gastro- esophageal reflux disease Queen's esophagus Elevated liver function tests, Order for future visit Comprehensive Metabolic Panel, Blood, Routine, 11/07/22, Once, Lab Collect, GERD - Gastro-esophageal reflux disease Queen's esophagus Elevated liver function tests, Order for future visit Ferritin, Blood, Routine, 11/07/22, Once, Lab Collect, GERD - Gastro-esophageal reflux disease Queen's esophagus Elevated liver function tests, Order for future visit Follow-up Appointment Request [id number], *Est. 11/28/22 +/- 4 days, Future Order, In Approximately, [facility] Gastroenterology Hep A Ab, Total LC, Blood, Routine, 11/07/22, Once, Lab Collect, GERD - Gastro- esophageal reflux disease Queen's esophagus Elevated liver function tests, Order for future visit Hep B Core Ab, Tot LC, Blood, Routine, 11/07/22, Once, Lab Collect, GERD - Gastro-esophageal refluxdisease Queen's esophagus Elevated liver function tests, Order for future visit Hepatitis B Surface Antibody, Blood, Routine, 11/07/22, Once, Lab Collect, GERD - Gastro-esophagealreflux disease Queen's esophagus Elevated liver function tests, Order for future visit Hepatitis B Surface Antigen, Blood, Routine, 11/07/22, Once, Lab Collect, GERD - Gastro-esophageal reflux disease Queen's esophagus Elevated liver function tests, Order for future visit Hepatitis C Antibody, Blood, Routine, 11/07/22, Once, Lab Collect, GERD - Gastro-esophageal reflux disease Queen's esophagus Elevated liver function tests, Order for future visit Iron Panel, Blood, Routine, 11/07/22, Once, Lab Collect, GERD - Gastro- esophageal reflux disease Queen's esophagus Elevated liver function tests, Order for future visit Liver-Kidney Microsomal Ab LC, Blood, Routine, 11/07/22, Once, Lab Collect, GERD - Gastro-esophageal reflux disease Queen's esophagus Elevated liver function tests, Order for future visit Mitochondrial (M2) Antibody LC, Blood, Routine, 11/07/22, Once, Lab Collect, GERD - Gastro-esophageal reflux disease Queen's esophagus Elevated liver function tests, Order for future visit US Abdomen Limited, 11/07/22, Routine, Reason: elevated liver functions, Transport Mode: Ambulatory, GERD - Gastro-esophageal reflux disease Queen's esophagus Elevated liver function tests ?? 4.??Family history of colon cancer??Z80.0 Family history of colon and gastric cancer. ??She should undergo EGD and colonoscopy once we have cardiac clearance??for her syncopal episodes.?? I will see patient??in 3 weeks to reevaluate once we have??previous medical records and current diagnostic work-up. ?? 5.??S/P partial gastrectomy??Z90.3 As above. ?? 6.??S/P cholecystectomy??Z90.49 She states she does have loose stools since having cholecystectomy??this may be bile acid malabsorption and corrected with bile acid sequestrant's.?? Will discuss this further pending the results of the colonoscopy once we get cardiac clearance to have a colonoscopy. ?? 7.??NSAID long-term use??Z79.1 As above. ?? 8.??Fatty liver??K76.0 As above. ?? 9.??Nausea??R11.0 As above, EGD and recommend small frequent meals. ?? 10.??Epigastric pain??R10.13 As above. ?? 11.??Hematochezia??K92.1 Colonoscopy as above to assess for anal fissure, internal hemorrhoids, colitis or neoplasm. ?? 12.??Anorexia??R63.0 As above. ?? 13.??Pyrosis??R12 As above. ?? 14.??Globus sensation??R09.89 As above. Denies dysphagia. ?? Will asked him to get records from??[facility] [place], and [facility].?? Will see patient back in 3 weeks to discuss current GI work-up??and previous medical records.?? Will??determine if cardiology work-up iscomplete??in order to schedule EGD and colonoscopy. ?? Voice recognition software utilized which may result in minor cutter operator helper error. ?? Future Orders Actin (Smooth Muscle) Antibody LC, Blood, Routine, 11/07/22, Once, Lab Collect, GERD - Gastro-esophageal reflux disease Queen's esophagus Elevated liver function tests, Order for future visit [id number], Serum LC, Blood, Routine, 11/07/22, Once, Lab Collect, GERD - Gastro-esophageal reflux disease Queen's esophagus Elevated liver function tests, Order for future visit CBC w/ Diff, Blood, Routine, 11/07/22, Once, Lab Collect, GERD - Gastro- esophageal reflux disease Queen's esophagus Elevated liver function tests, Order for future visit Celiac Disease Comprehensive LC, Blood, Routine, 11/07/22, Once, Lab Collect, GERD - Gastro-esophageal reflux disease Queen's esophagus Elevated liver function tests, Order for future visit Ceruloplasmin LC, Blood, Routine, 11/07/22, Once, Lab Collect, GERD - Gastro- esophageal reflux disease Queen's esophagus Elevated liver function tests, Order for future visit Comprehensive Metabolic Panel, Blood, Routine, 11/07/22, Once, Lab Collect, GERD - Gastro-esophageal reflux disease Queen's esophagus Elevated liver function tests, Order for future visit Ferritin, Blood, Routine, 11/07/22, Once, Lab Collect, GERD - Gastro-esophageal reflux disease Queen's esophagus Elevated liver function tests, Order for future visit Hep A Ab, Total LC, Blood, Routine, 11/07/22, Once, Lab Collect, GERD - Gastro- esophageal reflux disease Queen's esophagus Elevated liver function tests, Order for future visit Hep B Core Ab, Tot LC, Blood, Routine, 11/07/22, Once, Lab Collect, GERD - Gastro-esophageal refluxdisease Queen's esophagus Elevated liver function tests, Order for future visit Hepatitis B Surface Antibody, Blood, Routine, 11/07/22, Once, Lab Collect, GERD - Gastro-esophagealreflux disease Queen's esophagus Elevated liver function tests, Order for future visit Hepatitis B Surface Antigen, Blood, Routine, 11/07/22, Once, Lab Collect, GERD - Gastro-esophageal reflux disease Queen's esophagus Elevated liver function tests, Order for future visit Hepatitis C Antibody, Blood, Routine, 11/07/22, Once, Lab Collect, GERD - Gastro-esophageal reflux disease Queen's esophagus Elevated liver function tests, Order for future visit Iron Panel, Blood, Routine, 11/07/22, Once, Lab Collect, GERD - Gastro- esophageal reflux disease Queen's esophagus Elevated liver function tests, Order for future visit Liver-Kidney Microsomal Ab LC, Blood, Routine, 11/07/22, Once, Lab Collect, GERD - Gastro-esophageal reflux disease Queen's esophagus Elevated liver function tests, Order for future visit Mitochondrial (M2) Antibody LC, Blood, Routine, 11/07/22, Once, Lab Collect, GERD - Gastro-esophageal reflux disease Queen's esophagus Elevated liver function tests, Order for future visit US Abdomen Limited, 11/07/22, Routine, Reason: elevated liver functions, Transport Mode: Ambulatory, GERD - Gastro-esophageal reflux disease Queen's esophagus Elevated liver function tests Problem List/Past Medical History Ongoing Anorexia Queen's esophagus Diaphragmatic hernia Elevated liver function tests Epigastric pain Family history of colon cancer Fatty liver GERD - Gastro-esophageal reflux disease Globus sensation Hematochezia History of endometriosis Nausea NSAID long-term use Pelvic pain syndrome Pyrosis S/P cholecystectomy S/P partial gastrectomy Historical No qualifying data Procedure/Surgical History ??? section???Cholecystectomy???Dilation and curettage???Hysterectomy???Magdaleno fundoplication???Oophorectomy???Partial gastrectomy Medications amitriptyline 10 mg oral tablet, 20 mg= 2 tab, Oral, every night at bedtime doxycycline hyclate 100 mg oral capsule, 100 mg= 1 cap, Oral, Daily ibuprofen 800 mg oral tablet, 800 mg= 1 tab, Oral, every 6 hr omeprazole 20 mg oral delayed release tablet, 20 mg= 1 tab, Oral, Daily Allergies Onion buPROPion Social History Alcohol Never Electronic Cigarette/Vaping Electronic Cigarette Use: Never. Substance Use Never Tobacco Former tobacco user Tobacco Use:. Family History Cancer: Father. Diabetes mellitus: Father. Heart disease: Father. Hypertension: Father. Electronically Signed on 11/07/22 04:45 PM Rehana Solorio APRN Patient Care team information Care Team Personnel Name: Mike Goodman Position: No Access Member Role: Primary Care Physician Address: Address: [address] [place] [id number] [place] Care Team Related Persons Name: MAMIE SCHWARTZ Address: Home [address] [place], [place] [id number] [facility]
--- OUTSIDE RECORDS SUMMARY | 2024-03-04 00:56 | XMS_ITS | Continuity of Care Document ---
Author Name Unknown Organization [facility] Address [address] [place] [id number] Care Team Providers Care Systems Program Manager Name Role Phone Mike Goodman Primary Care Physician [phone] Encounter [facility] FIN NBR [id number] Date(s): 02/28/23 - 02/28/[address] [address]- Discharge Disposition: Home or Self Care Attending Physician: Rehana Solorio APRN Admitting Physician: Rehana Solorio APRN Referring Physician: Mike Goodman Allergies, Adverse Reactions, Alerts Substance Reaction Severity Status buPROPion Unknown Active Onion Unknown Active Assessment and Plan Future Appointments Future Scheduled Tests Laboratory* Celiac Disease Comprehensive 11/07/22 Medications omeprazole 20 mg oral delayed release tablet 20 mg = 1 tab, Oral, Daily, # 90 tab, 0 Refill(s) Start Date: 11/06/22 Status: Ordered Problem List Condition Confirmation Course Effective Dates Status H ealt Status Informant Change in bowel habits Confirmed Active Anal fissure Confirmed Active Diaphragmatic hernia Confirmed Active Diverticulosis of colon Confirmed Active Epigastric pain Confirmed Active Family history of colon cancer Confirmed Active Globus sensation Confirmed Active Family history of gastric cancer Confirmed Active GERD - Gastro-esophageal reflux disease Confirmed Active Pyrosis Confirmed Active S/P cholecystectomy Confirmed Active History of endometriosis Confirmed Active S/P partial gastrectomy Confirmed Active Iron deficiency anemia Confirmed Active Elevated liver function tests Confirmed Active Anorexia Confirmed Active Nausea Confirmed Active NSAID long-term use Confirmed Active Pelvic pain syndrome Confirmed Active Fatty liver Confirmed Active Terminal ileum 1 Confirmed Active 1polyp Procedures Procedure Date Related Diagnosis Body Site Status Esophagogastroduodenoscopy a nd Colonoscopy with Biopsy 1 02/13/23 Comple kendy Arthroscopy of knee with meniscus repair Completed section Complete d Cholecystectomy Completed Dilation and curettage Co mpleted Hysterectomy Completed Magdaleno fundoplication Com pleted Oophorectomy Completed Partial gastrectomy Compl eted 1auto-populated from documented surgical case Results Laboratory List Name Date CBC w/ Diff 02/28/23 Comprehensive Metabolic Panel 02/28/23 Ferritin 02/28/23 Iron Panel 02/28/23 Automated Diff 02/28/23 Most recent to oldest [Reference Range]: 1 WBC [4.8-10.8 K/mcL] 6.2 K/mcL (02/28/23 9:57 AM) RBC [4.20-5.40 Million/mcL] 4.67 Million /mcL (02/28/23 9:57 AM) Neutro Auto [42.2-75.2 %] 57.1 % (02/28/23 9:57 AM) Lymph Auto [20.5-51.1 %] 34.7 % (02/28/23 9:57 AM) [place] Auto [1.7-9.3 %] 6.4 % (02/28/23 9:57 AM) Basophil Auto [0.0-0.8 %] 0.3 % (02/28/23 9:57 AM) BUN [8-26 mg/dL] 11 mg/dL (02/28/23 9:57 AM) Glucose Level [74-106 mg/dL] 89 mg/dL (02/28/23 9:57 AM) Potassium Level [3.5-5.1 mmol/L] 4.3 mmo l/L (02/28/23 9:57 AM) Baso Absolute [0.0-0.2 K/mcL] 0.0 K/mcL (02/28/23 9:57 AM) MCV [81.0-99.0 fL] 81.2 fL (02/28/23 9:57 AM) AST [15-41 IntlUnit/L] 25 IntlUnit/L (02/28/23 9:57 AM) ALT [14-54 IntlUnit/L] 20 IntlUnit/L (02/28/23 9:57 AM) MCHC [32.0-36.0 g/dL] 31.9 g/dL *LOW* (02/28/23 9:57 AM) Osmolality [275-295 mOsm/kg] 275 mOsm/kg (02/28/23 9:57 AM) Sodium Level [134-143 mmol/L] 138 mmol/L (02/28/23 9:57 AM) Lymph Absolute [1.2-3.4 K/mcL] 2.2 K/mcL (02/28/23 9:57 AM) Hct [37.0-47.0 %] 37.9 % (02/28/23 9:57 AM) Calcium Level [8.9-10.3 mg/dL] 9.5 mg/dL (02/28/23 9:57 AM) [place] Absolute [0.1-0.6 K/mcL] 0.4 K/mcL (02/28/23 9:57 AM) Albumin Level [3.5-5.0 g/dL] 4.1 g/dL (02/28/23 9:57 AM) Protein Total [6.5-8.1 g/dL] 7.1 g/dL (02/28/23 9:57 AM) Iron Sat [20-55 %] 10 % *LOW* (02/28/23 9:57 AM) MCH [27.0-31.0 pg] 25.9 pg *LOW* (02/28/23 9:57 AM) Neutro Absolute [1.4-6.5 K/mcL] 3.6 K/mc L (02/28/23 9:57 AM) Bilirubin Total [0.2-1.2 mg/dL] 0.5 mg/d L (02/28/23 9:57 AM) Hgb [12.0-16.0 g/dL] 12.1 g/dL (02/28/23 9:57 AM) Transferrin [192-382 mg/dL] 391 mg/dL *HI* (02/28/23 9:57 AM) Alk Phos [38-130 IntlUnit/L] 95 IntlUnit /L (02/28/23 9:57 AM) MPV [7.4-10.4 fL] 10.5 fL *HI* (02/28/23 9:57 AM) Ferritin Level [11.0-307.0 ng/mL] 4.2 ng /mL *LOW* (02/28/23 9:57 AM) Platelets [130-400 K/mcL] 279 K/mcL (02/28/23 9:57 AM) CO2 [22-32 mmol/L] 29 mmol/L (02/28/23 9:57 AM) Eos Absolute [0.0-0.2 K/mcL] 0.1 K/mcL (02/28/23 9:57 AM) TIBC 547 *NA* (02/28/23 9:57 AM) Iron [28-170 mcg/dL] 53 mcg/dL (02/28/23 9:57 AM) Chloride Level [98-111 mmol/L] 101 mmol/ L (02/28/23 9:57 AM) RDW-CV [11.5-14.5 %] 12.8 % (02/28/23 9:57 AM) A/G Ratio 1.4 *NA* (02/28/23 9:57 AM) BUN/Creat Ratio [8.0-20.0] 16.2 (02/28/23 9:57 AM) Globulin 3.0 *NA* (02/28/23 9:57 AM) Imm Gran Absolute 0.01 *NA* (02/28/23 9:57 AM) Imm Gran Auto [0.0-0.5 %] 0.2 % (02/28/23 9:57 AM) Creatinine Level [0.44-1.00 mg/dL] 0.68 mg/dL (02/28/23 9:57 AM) Anion Gap [3.0-12.0] 8.0 (02/28/23 9:57 AM) Eos, Auto [0.00-3.00 %] 1.30 % (02/28/23 9:57 AM) eGFR CKD-EPI [>=60 mL/min/1.73 m2] 107 m L/min/1.73 m2 (02/28/23 9:57 AM) Social History Social History Type Response Tobacco Former tobacco user Tobacco Use:. Sex Patient Care team information Care Team Personnel Name: Mike Goodman Position: No Access Member Role: Primary Care Physician Address: Address: [address] [place] [id number] Care Team Related Persons Name: MAMIE SCHWARTZ Address: Home [address] [facility] [place], [place] [id number] [facility]
--- OUTSIDE RECORDS SUMMARY | 2024-03-04 00:56 | XMS_ITS | Continuity of Care Document ---
Author Name Unknown Organization [facility] Address [address] [place] [address] Care Team Providers Care Funeral Director/Embalmer Name Role Phone Mike Goodman Primary Care Physician Encounter [facility] NBR [id number] Date(s): 02/28/23 - 02/28/23 [facility] [address], [place] [address] Encounter Diagnosis Anal fissure(Discharge Diagnosis) - 02/28/23 Elevated liver function tests(Discharge Diagnosis) - 02/28/23 Iron deficiency anemia(Discharge Diagnosis) - 02/28/23 Family history of colon cancer(Discharge Diagnosis) - 02/28/23 Fatty liver(Discharge Diagnosis) - 02/28/23 GERD - Gastro-esophageal reflux disease(Discharge Diagnosis) - 02/28/23 Nausea(Discharge Diagnosis) - 02/28/23 S/P partial gastrectomy(Discharge Diagnosis) - 02/28/23 Discharge Disposition: Home or Self Care Attending Physician: Rehana Solorio APRN Allergies, Adverse Reactions, Alerts Substance Reaction Severity Status buPROPion Unknown Active Onion Unknown Active Assessment and Plan Future Appointments Future Scheduled Tests Laboratory* Celiac Disease Comprehensive LC 11/07/22 Functional Status 02/28/23 Other exposure to Infectious Disease Non e Medications omeprazole 20 mg oral delayed release tablet 20 mg = 1 tab, Oral, Daily, # 90 tab, 0 Refill(s) Start Date: 11/06/22 Status: Ordered Problem List Condition Confirmation Course Effective Dates Status H ealth Status Informant Change in bowel habits Confirmed [...] Compl eted 1auto-populated from documented surgical case Vital Signs Most recent to oldest [Reference Range]: 1 Temperature Temporal Artery [36-38 Deg C ] 36.9 Deg C (02/28/23 9:08 AM) Apical Heart Rate [60-100 bpm] 94 bpm (02/28/23 9:08 AM) Blood Pressure [90-140/60-90 mmHg] 122/8 0mmHg (02/28/23 9:08 AM) Weight 69.1 kg (02/28/23 9:08 AM) Weight Measured (lbs) 152.339 lb (02/28/23 9:08 AM) [place] Body Weight Calculated 47.8 kg (02/28/23 9:08 AM) Height 154.94 cm (02/28/23 9:08 AM) Height/Length Measured (inches) 61 inch (02/28/23 9:08 AM) BSA Measured 1.72 m2 (02/28/23 9:08 AM) Body Mass Index 28.78 kg/m2 (02/28/23 9:08 AM) Social History Social History Type Response Tobacco Former tobacco user Tobacco Use:. Sex Physician Outpatient Note * Rehana Solorio APRN W: PERFORM Event Display: Office Clinic Note Physician Authored Date: [id number] MEAGAN SCHWARTZ :1975 Age:47 years Sex:Female Visit Date:02/28/2023 Primary Care Physician: Mike Goodman Chief Complaint 2-week EGD and colonoscopy follow-up History of Present Illness Patient is a 47-year-old female here today at the request of Mike Maxine, SITE ADMINISTRATOR for gastroparesis and elevated liver functions. ??She is an established patient here today for follow-up??of EGD and colonoscopy.? 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 Patient reports an extensive cardiac history??of??GERD having manometry and pH testing. ??She has had a Magdaleno fundoplication but slipped and had a repair. ??She ended up with a partial gastrectomy??afterwards.?? She takes omeprazole 20 mg 3 times a day before meals??and still has pyrosis at night.??She states pantoprazole 40 mg twice daily was not beneficial??and did not improve her pH.?? She also reports that Prevacid a.m. Nexium were not beneficial either omeprazole works the past. ??She uses Motrin 800 mg twice daily.?? Her appetite is diminished and has nausea.?? Complains of epigastricpain.?? States she tried Carafate in the past that was not helpful. ?? She also complains of narrow stools that are changed. ??They are anywhere from [place] form 4-7.?? She has 2-3 bowel movements daily. ??Has hematochezia.?She has had??loose stools since cholecystectomy 7 years ago.?States overall they have improved but she continues with??large amounts of hematochezia. ?? She reports??being told she has fatty liver disease??and has had elevated liver functions in the past.?? She cannot recall??what work-up she has had.?.? She had a cholecystectomy??laparoscopy,??Magdaleno, and partial gastrectomy. ?? She reports a history of endometriosis and has??rectal discomfort with intercourse.?? She states she has seen [facility]??and advised??to speak to GI in regards to this. ?? Labs on 09/19/2022 showed CBC,??normal. ??CRP normal left??05.?? Platelets were 228, AST 32, ALT 27. ??Fib 4 score based on these labs were 1.11??not indicative of cirrhosis. ?? Patient had a CT of the chest without contrast??on 09/27/2022 that was normal. ?? Patient has had extensive GI work-up at [facility], [facility]??and at [facility].? 03/16/2019 colonoscopy was normal at [facility].?? Advised to follow-up in 10 years. ?? On 03/16/2019??EGD at [facility]??was unremarkable with biopsies of the GE junction??showing??chronic??gastritis.?? No Queen's esophagus seen. Small gastric pouch was seen.?? There was a small??ulcer at the??region of the anastomosis. ??Another small ulcer near jejunum distal to GEJ. ?? On 01/06/2013??patient??had a colonoscopy that was unremarkable.?? EGD??showed visualization of the Magdaleno wrap that was normal. ??No evidence of gastritis or duodenitis??or esophagitis seen. ?? 06/18/2012 patient had??an EGD with pathology??showing no H. pylori infection.?? Pathology??showed??1 hyperplastic polyp and 1 tubular adenoma.?? No celiac disease was seen. ??There was mild chronic??inflammation??within the stomach and??gastric intestinal metaplasia.?? No H. pylori infection.? On 03/15/2010 at [facility]??patient had EGD and colonoscopy??showing 2 small polyps 1 in the sigmoid and one in the transverse colon.?? They??were both removed.?? There was evidence of acid reflux and possible Queen's esophagus seen.?? Pathology report is not available. ?? 02/13/2023 EGD??showed status post??Bill[place]th I gastrectomy with 6 cm residual stomach, 2 cm hiatal hernia, irregular Z-line, no Queen's esophagus, celiac disease,??H. pylori infection or eosinophil esophagitis. ??There was reactive changes seen in the esophagus. ?? 02/13/2023??colonoscopy showed a terminal ileum polyp??that small bowel tissue, sigmoid diverticulosis and anal fissure. ?? In October??2022 labs suggested iron deficiency anemia. ?? Patient reports she has an appointment in April at [facility] gastroenterology was made prior to this appointment??she has been advised to continue that appointment by her PCP. ?? She states both of father had colon cancer and mother had stomach??cancer,??both??in their 50s.?? She was advised to have genetic testing but due to cost??was prohibitive. ?? Patient is being worked??up by cardiology for syncopal episodes. Review of Systems Pertinent positives and negatives are discussed in HPI. Physical Exam Vitals & Measurements T:??36.9?C ??(Temporal Artery)?? HR:??94??(Apical)?? BP:??122/80?? SpO2:??99%?? HT:??154.94??cm?? WT:??69.1??kg?? BMI:??28.78?? BSA:??1.72?? General: Well-nourished well-developed??female??in no acute distress. HEENT: [...] dry, and pink. ??No spider angiomata, palmar erythema or gynecomastia. Neurological: Alert and oriented x3, speech is clear and gait is steady. Psychological: Pleasant, calm and cooperative. ?? Assessment/Plan 1.??Anal fissure??K60.2 Reviewed findings of colonoscopy showing anal fissure. ??There was sigmoid diverticulosis.?? 1 polyp in the terminal ileum was benign.?? We discussed??high-fiber diet and she is agreeable to referralto Dr. Banerjee for further evaluation and treatment. ?? 2.??Elevated liver function tests??R79.89 Work-up has been unremarkable in the past showing no viral or autoimmune hepatitis. ??There is no hemochromatosis.?? Fib??4 score is 1.6??not suggestive of cirrhosis.?? She is not immune to hepatitisA or B.?? At this point would recommend she speak to her primary care provider in regards to??vaccin?? Will discuss this further??as patient's main priority is her??upper GI complaints at this time. We discussed nonalcoholic fatty liver disease and its??progression to cirrhosis and its associated complications including??liver carcinoma. ??Recommend 10 to 20% weight loss??goal of maintaining a healthy weight??and preventing this progression. ??Recheck liver functions today ?? 3.??Iron deficiency anemia??D50.9 Patient has some mild iron deficiency anemia. ??Recheck??CBC??and iron studies today. Ordered: Automated Diff, Blood, Routine, 02/28/23 9:50:00 EDT, by Etienne PEOPLES, Lab Collect, Iron deficiency anemia, [id number] CBC w/ Diff, Blood, Routine, 02/28/23 9:50:00 EDT, by Etienne PEOPLES, Lab Collect, Iron deficiency anemia Ferritin, Blood, Routine, 02/28/23 9:50:00 EDT, by Etienne PEOPLES, Lab Collect, Iron deficiency anemia Iron Panel, Blood, Routine, 02/28/23 9:50:00 EDT, by Etienne PEOPLES, Lab Collect, Iron deficiencyanemia ?? 4.??Family history of colon cancer??Z80.0 Repeat colonoscopy in 3 years given family history. 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 Referral made to [facility]??genetics. ?? 5.??Fatty liver??K76.0 As above. ?? 6.??GERD - Gastro-esophageal reflux disease??K21.9 Continue omeprazole 20 mg 3 times a day before meals??as this has worked the best for the patient. ??Reviewed EGD showing??she??is status post both??1 gastrectomy with a 6 cm residual stomach,??and a2 cm hiatal hernia. ??She did note an irregular Z-line but no signs of Queen's esophagus.?? Reactive changes are noted. ??No celiac disease, H. pylori infection or eosinophil esophagitis.?? Recommend??referral to [facility] which she already has in place??for consideration of high-resolution impedance and manometry and pH testing??and determine an??future treatments. ?? 7.??Nausea??R11.0 As above. ?? 8.??S/P partial gastrectomy??Z90.3 As above. ?? Orders: Comprehensive Metabolic Panel, Blood, Routine, 02/28/23 9:50:00 EDT, by Etienne PEOPLES, Lab Collect, Abnormal liver function Voice recognition software utilized which may result in minor ip attorney error. 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., Start: 02/28/23 Problem List/Past Medical History Ongoing Anal fissure Anorexia Change in bowel habits Diaphragmatic hernia Diverticulosis of colon Elevated liver function tests Epigastric pain Family history of colon cancer Family history of gastric cancer Fatty liver GERD - Gastro-esophageal reflux disease Globus sensation History of endometriosis Iron deficiency anemia Nausea NSAID long-term use Pelvic pain syndrome Pyrosis S/P cholecystectomy S/P partial gastrectomy Terminal ileum Historical Queen's esophagus Hematochezia Procedure/Surgical History ???Esophagogastroduodenoscopy and Colonoscopy with Biopsy (02/13/2023)???Arthroscopy of knee with meniscus repair??? section???Cholecystectomy???Dilation and curettage???Hysterectomy???Magdaleno fundoplication???Oophorectomy???Partial gastrectomy Medications omeprazole 20 mg oral delayed release tablet, 20 mg= 1 tab, Oral, Daily Allergies Onion buPROPion Social History Alcohol Never Electronic Cigarette/Vaping Electronic Cigarette Use: Never. Substance Use Never Tobacco Former tobacco user Tobacco Use:. Family History Cancer: Father. Diabetes mellitus: Father. Heart disease: Father. Hypertension: Father. Electronically Signed on 02/28/23 10:26 AM Rehana Solorio APRN Patient Care team information Care Team Personnel Name: Mike Goodman Position: No Access Member Role: Primary Care Physician Address: Address: [address] [place] [id number] Care Team Related Persons Name: MAMIE SCHWARTZ Address: Home [address] [facility] [place], [place] [id number] [facility]
--- OUTSIDE RECORDS SUMMARY | 2024-03-04 00:56 | XMS_ITS | Continuity of Care Document ---
Author Name Unknown Organization [facility] Address [address] [place] [address] Care Team Providers Care Supply Chain Coordinator Name Role Phone Mike Goodman Primary Care Physician Encounter [facility] NBR [id number] Date(s): 11/26/22 - 11/26/22 [facility] [address] [place] [address]- [place] Encounter Diagnosis Elevated liver function tests(Discharge Diagnosis) - 11/26/22 Queen's esophagus(Discharge Diagnosis) - 11/26/22 GERD - Gastro-esophageal reflux disease(Discharge Diagnosis) - 11/26/22 Hematochezia(Discharge Diagnosis) - 11/26/22 Change in bowel habits(Discharge Diagnosis) - 11/26/22 Iron deficiency anemia(Discharge Diagnosis) - 11/26/22 Discharge Disposition: Home or Self Care Attending Physician: Rehana Solorio APRN Allergies, Adverse Reactions, Alerts Substance Reaction Severity Status buPROPion Unknown Active Onion Unknown Active Assessment and Plan Future Scheduled Tests Laboratory* Celiac Disease Comprehensive LC 11/07/22 Radiology* US Abdomen Limited 11/07/22 Functional Status 11/26/22 Other exposure to Infectious Disease Non e [...] Informant Change in bowel habits Confirmed Active Queen's esophagus Confirmed Active Diaphragmatic hernia Confirmed [...] Temperature Temporal Artery [36-38 Deg C ] 36.5 Deg C (11/26/22 11:39 AM) Apical Heart Rate [60-100 bpm] 94 bpm (11/26/22 11:39 AM) Blood Pressure [90-140/60-90 mmHg] 118/7 8mmHg (11/26/22 11:39 AM) Weight 68.3 kg (11/26/22 11:39 AM) Weight Measured (lbs) 150.576 lb (11/26/22 11:39 AM) [place] Body Weight Calculated 47.8 kg (11/26/22 11:39 AM) Height 154.94 cm (11/26/22 11:39 AM) Height/Length Measured (inches) 61 inch (11/26/22 11:39 AM) BSA Measured 1.71 m2 (11/26/22 11:39 AM) Body Mass Index 28.45 kg/m2 (11/26/22 11:39 AM) Social History Social History Type Response Tobacco Former tobacco user Tobacco Use:. Sex Physician Outpatient Note * Rehana Solorio APRN: PERFORM Event Display: Office Clinic Note Physician Authored Date: [id number] MEAGAN SCHWARTZ :1975 Age:47 years Sex:Female Visit Date:11/26/2022 Primary Care Physician: Mike Goodman Chief Complaint 3 week follow up LFTS and gastropresis History of Present Illness Patient is a 47-year-old female here today at the request of Mike Goodman APRN for gastroparesis and elevated liver functions. ??She is an established patient here today for follow-up.?? Patient has a history of a hiatal hernia??with GERD??and is status post partial gastrectomy. 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 Patient reports an extensive cardiac history??of??GERD having manometry and pH testing. ??She has had a Magdaleno fundoplication but slipped and had a repair. ??She ended up with a partial gastrectomy??afterwards.?? She takes omeprazole 20 mg 3 times a day before meals??and still has pyrosis at night. ??She states pantoprazole 40 mg twice daily was not beneficial??and did not improve her pH.?? She uses Motrin 800 mg twice daily.?? Her appetiteis diminished and has nausea.?? Complains of epigastric pain.?? States she tried Carafate in the past that was not helpful. ?? She also complains of narrow stools that are changed. ??They are anywhere from [place] form 4-7.?? She has 2-3 bowel movements daily. ??Has hematochezia.?This is new since last colonoscopy.?She has had??loose stools since cholecystectomy 7 years ago.? She reports??being told she has fatty liver disease??and has had elevated liver functions in the past.?? She cannot recall??what work-up she has had.?.? She had a cholecystectomy??laparoscopy,??Magdaleno, and partial gastrectomy. ?? She reports a history of endometriosis and has??rectal discomfort with intercourse.?? She states she has seen [facility]??and advised??to speak to GI in regards to this. ?? Labs on 09/19/2022 showed CBC,??normal. ??CRP normal left??05.?? Platelets were 228, AST 32, ALT 27. ??Fib 4 score based on these labs were 1.11??not indicative of cirrhosis. ?? Patient had a CT of the chest without contrast??on 09/27/2022 that was normal. ?? Patient has had extensive GI work-up at [facility], [facility]??and at [facility].? 03/16/2019 colonoscopy was normal at [facility].?? Advised to follow-up in 10 years. ?? On 03/16/2019??EGD at [facility]??was unremarkable with biopsies of the GE [...] No H. pylori infection.? On 03/15/2010 at [facility]??patient had EGD and colonoscopy??showing 2 small polyps 1 in the sigmoid and one in the transverse colon.?? They??were both removed.?? There was evidence of acid reflux and possible Queen's esophagus seen.?? Pathology report is not available. ?? She states both of father had colon cancer and mother had stomach??cancer,??both??in their 50s.?? She was advised to have genetic testing but due to cost??was prohibitive. ?? Patient states that she has had a CT angiogram??and Holter monitor at [facility]. ??She is??for cardiac clearance to have procedures.?? She still has an echo pending for December. ?? Patient is being worked??up by cardiology for syncopal episodes. Review of Systems Pertinent positives and negatives are discussed in HPI. Physical Exam Vitals & Measurements T:??36.5?C ??(Temporal Artery)?? HR:??94??(Apical)?? BP:??118/78?? SpO2:??98%?? HT:??154.94??cm?? WT:??78.3??kg?? BMI:??32.62?? BSA:??1.84?? General: Well-nourished well-developed??female??in no acute distress. HEENT: Head is normocephalic, trachea midline, and no cervical lymphadenopathy. Respiratory: Respirations are even and unlabored. ??Lungs are clear to auscultation. Cardiovascular: Regular rate and rhythm with S1 and S2. Abdomen: Positive bowel sounds x4 quadrants, no masses, no guarding, no tenderness. ??No hepatosplenomegaly. ??Abdomen is soft. Skin: Warm, dry, and pink. Neurological: Alert and oriented x3, speech is clear and gait is steady. Psychological: Pleasant, calm and cooperative. Assessment/Plan 1.??Elevated liver function tests??R79.89 Reviewed findings of liver work-up showing no viral or autoimmune hepatitis. ??There is no hemochromatosis.?? Fib??4 score is 1.6??not suggestive of cirrhosis.?? She is not immune to hepatitis A or B.?? At this point would recommend she speak to her primary care provider in regards to??vaccinations.?? Will discuss this further??as patient's main priority is her??upper GI complaints at this time. 2.??Queen's esophagus??K22.70 Given patient's upper GI symptoms and a history of Queen's esophagus??would recommend EGD to assess for mucosal injury,??inflammation, H. pylori infection,??celiac disease,??and Queen's esophagus.?? Will need cardiac clearance prior to. ??I will reach out to anesthesia??at patient request as wel l. 3.??GERD - Gastro-esophageal reflux disease??K21.9 As above.?? Discussed reflux triggering foods and beverages to avoid, to avoid eating 3 hours before bedtime and to eat small frequent meals.?? Advised to avoid NSAIDs.?? Use only Tylenol for pain. ??Offered change of PPI however she states this is what is worked the best for her.?? Also offered Carafate which she states has not worked in the past.?? Recommend Pepcid??20 mg??daily??as needed??forbreakthrough symptoms. 4.??Hematochezia??K92.1 Hematochezia is new since last colonoscopy. ??Recommend??colonoscopy to assess for colitis or neoplasm.?? Again will need cardiac clearance prior to scheduling procedures. 5.??Change in bowel habits??R19.4 As above to assess for colitis or neoplasm.?Recommend high-fiber diet. 6.??Iron deficiency anemia??D50.9 EGD and colonoscopy as above.?? I will see patient 2 weeks following procedures to discuss findingsand??patient's. Voice recognition software utilized which may result in minor pipe testing technician error. Problem List/Past Medical History Ongoing Anorexia Queen's esophagus Change in bowel habits Diaphragmatic hernia Elevated liver function tests Epigastric pain Family history of colon cancer Fatty liver GERD - Gastro-esophageal reflux disease Globus sensation Hematochezia History of endometriosis Iron deficiency anemia Nausea [...] mellitus: Father. Heart disease: Father. Hypertension: Father. Lab Results Test Name Test Result Date/Time Hgb 11.8 g/dL 11/07/2022 17:00 EST Hct 36.5 % 11/07/2022 17:00 EST MCV 82.2 fL 11/07/2022 17:00 EST MCH 26.6 pg 11/07/2022 17:00 EST MCHC 32.3 g/dL 11/07/2022 17:00 EST RDW-CV 12.7 % 11/07/2022 17:00 EST Platelets 275 K/mcL 11/07/2022 17:00 EST Alk Phos 88 IntlUnit/L 11/07/2022 17:00 EST AST 31 IntlUnit/L 11/07/2022 17:00 EST ALT 26 IntlUnit/L 11/07/2022 17:00 EST Creatinine Level 0.59 mg/dL 11/07/2022 17:00 EST Protein Total 6.9 g/dL 11/07/2022 17:00 EST Albumin Level 3.9 g/dL 11/07/2022 17:00 EST Globulin 3.0 11/07/2022 17:00 EST Bilirubin Total 0.4 mg/dL 11/07/2022 17:00 EST Iron 42 mcg/dL 11/07/2022 17:00 EST TIBC 539 11/07/2022 17:00 EST Iron Sat 8 % 11/07/2022 17:00 EST Ferritin Level 5.6 ng/mL 11/07/2022 17:00 EST Osmolality 269 mOsm/kg 11/07/2022 17:00 EST Transferrin 385 mg/dL 11/07/2022 17:00 EST Diiek-0-Yuxdajzhqdd LC 145 mg/dL 11/07/2022 17:00 EST Ceruloplasmin LC 27.9 mg/dL 11/07/2022 17:00 EST Actin (Smooth Muscle) Ab LC 6 units 11/07/2022 17:00 EST t-Transglutaminase (tTG) IgA LC <2 unit/mL 11/07/2022 17:00 EST t-Transglutaminase (tTG) IgG LC <2 unit/mL 11/07/2022 17:00 EST Mitochondrial (M2) Ab LC <20.0 units 11/07/2022 17:00 EST Deamidated Gliadin Abs, IgA LC 5 units 11/07/2022 17:00 EST Liver-Kidney Microsomal Ab LC <20.1 units 11/07/2022 17:00 EST Deamidated Gliadin Abs, IgG LC 3 units 11/07/2022 17:00 EST Endomysial Ab IgA LC Negative 11/07/2022 17:00 EST Hep B Surface Ab <3.10 11/07/2022 17:00 EST Electronically Signed on 11/26/22 01:11 PM Rehana Solorio APRN Patient Care team information Care Team Personnel Name: Mike Goodman Position: No Access Member Role: Primary Care Physician Address: Address: [address] [place] [phone] [place] Care Team Related Persons Name: MAMIE SCHWARTZ Address: Home [address] [place], [place] [id number] [facility]
--- OUTSIDE RECORDS SUMMARY | 2024-03-04 00:56 | XMS_ITS | Continuity of Care Document ---
Author Name Unknown Organization [facility] Address [address] [place] [id number] Care Team Providers Care Flaker Operator Name Role Phone Mike Goodman Primary Care Physician Encounter [facility] NBR [id number] Date(s): 02/13/23 - 02/13/[address] [id number] Encounter Diagnosis Epigastric pain(Discharge Diagnosis) - 02/13/23 Family history of colon cancer(Discharge Diagnosis) - 02/13/23 Family history of gastric cancer(Discharge Diagnosis) - 02/13/23 Hematochezia(Discharge Diagnosis) - 02/13/23 S/P partial gastrectomy(Discharge Diagnosis) - 02/13/23 Discharge Disposition: Home or Self Care Attending Physician: Morris Mchugh MD Admitting Physician: Morris Mchugh MD Referring Physician: Mike Goodman Allergies, Adverse Reactions, Alerts Substance Reaction Severity Status buPROPion Unknown Active Onion Unknown Active Assessment and Plan Future Appointments Future Scheduled Tests Laboratory* Celiac Disease Comprehensive 11/07/22 Functional Status 02/13/23 ADLs Independent Other exposure to Infectious Disease Non e 02/06/23 Living Situation Home independently Medications omeprazole 20 mg oral delayed release [...] Most recent to oldest [Reference Range]: 1 2 3 Temperature Temporal Artery [36-38 Deg C] 36.6 Deg C (02/13/23 8:06 AM) 37.1 Deg C (02/13/23 6:49 AM) Temperature Temporal Artery (DegF) [97.3-100 Deg F] 97.88 Deg F (02/13/23 8:06 AM) Peripheral Pulse Rate [60-100 bpm] 57 bpm *LOW* (02/13/23 8:43 AM) 77 bpm (02/13/23 8:13 AM) 81 bpm (02/13/23 8:06 AM) Respiratory Rate [12-24 br/min] 16 br/min (02/13/23 6:49 AM) Blood Pressure [90-140/60-90 mmHg] 112/72mmHg (02/13/23 8:43 AM) 109/78mmHg (02/13/23 8:13 AM) 101/72mmHg (02/13/23 8:06 AM) Mean Arterial Pressure, Cuff [65-140 mmHg] 85 mmHg (02/13/23 8:43 AM) 88 mmHg (02/13/23 8:13 AM) 82 mmHg (02/13/23 8:06 AM) Mean Arterial Pressure Cuff 85 mmHg (02/13/23 8:43 AM) 88 mmHg (02/13/23 8:13 AM) 83 mmHg (02/13/23 8:06 AM) Weight 66.680 kg (02/06/23 2:19 PM) Weight Dosing 66.680 kg (02/06/23 2:19 PM) Height 154.940 cm (02/06/23 2:19 PM) Height/Length Dosing 154.940 cm (02/06/23 2:19 PM) Social History Social History Type Response Tobacco Former tobacco user Tobacco Use:. Sex Hospital Discharge Instructions Patient Education 02/13/2023 07:16:48 Upper Endoscopy, Adult, Care After Upper Endoscopy, Adult, Care After This sheet gives you information about how to care for yourself after your procedure. Your health care provider may also give you more specific instructions. If you have problems or questions, contact your health care provider. What can I expect after the procedure? After the procedure, it is common to have: ??? A sore throat. ??? Mild stomach pain or discomfort. ??? Bloating. ??? Nausea. Follow these instructions at home: ??? Follow instructions from your health care provider about what to eat or drink after your procedure. ??? Return to your normal activities as told by your health care provider. Ask your health care provider what activities are safe for you. ??? Take fpql-dta-evjqvub and prescription medicines only as told by your health care provider. ??? If you were given a sedative during the procedure, it can affect you for several hours. Do not drive or operate machinery until your health care provider says that it is safe. ??? Keep all follow-up visits as told by your health care provider. This is important. Contact a health care provider if you have: ??? A sore throat that lasts longer than one day. ??? Trouble swallowing. Get help right away if: ??? You vomit blood or your vomit looks like coffee grounds. ??? You have: ??? A fever. ??? Bloody, black, or tarry stools. ??? A severe sore throat or you cannot swallow. ??? Difficulty breathing. ??? Severe pain in your chest or abdomen. Summary ??? After the procedure, it is common to have a sore throat, mild stomach discomfort, bloating, andnausea. ??? If you were given a sedative during the procedure, it can affect you for several hours. Do not drive or operate machinery until your health care provider says that it is safe. ??? Follow instructions from your health care provider about what to eat or drink after your procedure. ??? Return to your normal activities as told by your health care provider. This information is not intended to replace advice given to you by your health care provider. Make sure you discuss any questions you have with your health care provider. Document Revised: 08/29/2020 Document Reviewed: 02/01/2019 [employer] Patient Education ?? 2021 [employer] 02/13/2023 07:16:44 Diverticulosis Diverticulosis Diverticulosis is a condition that develops when small pouches (diverticula) form in the wall of the large intestine (colon). The colon is where water is absorbed and stool (feces) is formed. The pouches form when the inside layer of the colon pushes through weak spots in the outer layers of the colon. You may have a few pouches or many of them. The pouches usually do not cause problems unless they become inflamed or infected. When this happens, the condition is called diverticulitis. What are the causes? The cause of this condition is not known. What increases the risk? The following factors may make you more likely to develop this condition: ??? Being older than age 60. Your risk for this condition increases with age. Diverticulosis is rare among people younger than age 30. By age 80, many people have it. ??? Eating a low-fiber diet. ??? Having frequent constipation. ??? Being overweight. ??? Not getting enough exercise. ??? Smoking. ??? Taking fdma-ree-brnyaua pain medicines, like aspirin and ibuprofen. ??? Having a family history of diverticulosis. What are the signs or symptoms? In most people, there are no symptoms of this condition. If you do have symptoms, they may include: ??? Bloating. ??? Cramps in the abdomen. ??? Constipation or diarrhea. ??? Pain in the lower left side of the abdomen. How is this diagnosed? Because diverticulosis usually has no symptoms, it is most often diagnosed during an exam for othercolon problems. The condition may be diagnosed by: ??? Using a flexible scope to examine the colon (colonoscopy). ??? Taking an X-ray of the colon after dye has been put into the colon (barium enema). ??? Having a CT scan. How is this treated? You may not need treatment for this condition. Your health care provider may recommend treatment toprevent problems. You may need treatment if you have symptoms or if you previously had diverticulitis. Treatment may include: ??? Eating a high-fiber diet. ??? Taking a fiber supplement. ??? Taking a live bacteria supplement (probiotic). ??? Taking medicine to relax your colon. Follow these instructions at home: Medicines ??? Take qqdj-vet-usqnnze and prescription medicines only as told by your health care provider. ??? If told by your health care provider, take a fiber supplement or probiotic. Constipation prevention Your condition may cause constipation. To prevent or treat constipation, you may need to: ??? Drink enough fluid to keep your urine pale yellow. ??? Take zulj-pss-kwtoeaw or prescription medicines. ??? Eat foods that are high in fiber, such as beans, whole grains, and fresh fruits and vegetables. ??? Limit foods that are high in fat and processed sugars, such as fried or sweet foods. General instructions ??? Try not to strain when you have a bowel movement. ??? Keep all follow-up visits as told by your health care provider. This is important. Contact a health care provider if you: ??? Have pain in your abdomen. ??? Have bloating. ??? Have cramps. ??? Have not had a bowel movement in 3 days. Get help right away if: ??? Your pain gets worse. ??? Your bloating becomes very bad. ??? You have a fever or chills, and your symptoms suddenly get worse. ??? You vomit. ??? You have bowel movements that are bloody or black. ??? You have bleeding from your rectum. Summary ??? Diverticulosis is a condition that develops when small pouches (diverticula) form in the wall of the large intestine (colon). ??? You may have a few pouches or many of them. ??? This condition is most often diagnosed during an exam for other colon problems. ??? Treatment may include increasing the fiber in your diet, taking supplements, or taking medicines. This information is not intended to replace advice given to you by your health care provider. Make sure you discuss any questions you have with your health care provider. Document Revised: 03/30/2020 Document Reviewed: 03/30/2020 [employer] Patient Education ?? 2021 [employer]. 02/13/2023 07:16:42 Colonoscopy, Adult, Care After Colonoscopy, Adult, Care After This sheet gives you information about how to care for yourself after your procedure. Your health care provider may also give you more specific instructions. If you have problems or questions, contact your health care provider. What can I expect after the procedure? After the procedure, it is common to have: ??? A small amount of blood in your stool for 24 hours after the procedure. ??? Some gas. ??? Mild cramping or bloating of your abdomen. Follow these instructions at home: Eating and drinking ??? Drink enough fluid to keep your urine pale yellow. ??? Follow instructions from your health care provider about eating or drinking restrictions. ??? Resume your normal diet as instructed by your health care provider. Avoid heavy or fried foods that are hard to digest. Activity ??? Rest as told by your health care provider. ??? Avoid sitting for a long time without moving. Get up to take short walks every 1???2 hours. This is important to improve blood flow and breathing. Ask for help if you feel weak or unsteady. ??? Return to your normal activities as told by your health care provider. Ask your health care provider what activities are safe for you. Managing cramping and bloating ??? Try walking around when you have cramps or feel bloated. ??? Apply heat to your abdomen as told by your health care provider. Use the heat source that your health care provider recommends, such as a moist heat pack or a heating pad. ??? Place a towel between your skin and the heat source. ??? Leave the heat on for 20???30 minutes. ??? Remove the heat if your skin turns bright red. This is especially important if you are unable to feel pain, heat, or cold. You may have a greater risk of getting burned. General instructions ??? If you were given a sedative during the procedure, it can affect you for several hours. Do not drive or operate machinery until your health care provider says that it is safe. ??? For the first 24 hours after the procedure: ??? Do not sign important documents. ??? Do not drink alcohol. ??? Do your regular daily activities at a slower pace than normal. ??? Eat soft foods that are easy to digest. ??? Take rwqn-zsn-cpvemcp and prescription medicines only as told by your health care provider. ??? Keep all follow-up visits as told by your health care provider. This is important. Contact a health care provider if: ??? You have blood in your stool 2???3 days after the procedure. Get help right away if you have: ??? More than a small spotting of blood in your stool. ??? Large blood clots in your stool. ??? Swelling of your abdomen. ??? Nausea or vomiting. ??? A fever. ??? Increasing pain in your abdomen that is not relieved with medicine. Summary ??? After the procedure, it is common to have a small amount of blood in your stool. You may also have mild cramping and bloating of your abdomen. ??? If you were given a sedative during the procedure, it can affect you for several hours. Do not drive or operate machinery until your health care provider says that it is safe. ??? Get help right away if you have a lot of blood in your stool, nausea or vomiting, a fever, or increased pain in your abdomen. This information is not intended to replace advice given to you by your health care provider. Make sure you discuss any questions you have with your health care provider. Document Revised: 08/25/2020 Document Reviewed: 03/27/2020 [employer] Patient Education ?? 2021 [employer]. Discharge instructions * Samreen Finn: PERFORM Event Display: Discharge Instructions Authored Date: [id number] MEAGAN SCHWARTZ :1975 Age:47 years Sex:Female Visit Date:02/13/2023 Primary Care Physician: [facility] Discharge Instructions We would like to thank you for allowing us to assist you with your healthcare needs. The following includes patient education materials and information regarding your injury/illness. Your Next Steps Discharge Orders Discharge Patient Instructions, You may experience some gas cramps and abdominal bloating Discharge Patient Instructions, Cramping and abdominal bloating should subside in 1 hour or so Discharge Patient Instructions, Passing gas rectally and belching is normal Discharge Patient Instructions, A light first meal may feel better in your stomach Discharge Patient Instructions, You may resume your normal activity in 24 hours Discharge Patient Instructions, It is important that a responsible adult drive you home today Discharge Patient Instructions, Do not sign any contracts, make any major decisions, or drive or operate machinery for 24 hours Discharge Patient Instructions, You should not be responsible for the care of others Discharge Patient Instructions, Avoid alcohol, tranquilizers, sleeping pills, or cold medicines for24 hours Discharge Patient Instructions, Call or come to emergency department if having unusual pain or severe abdominal pain Discharge Patient Instructions, Call or come to emergency department if vomiting blood or having black bowel movements, rectal bleeding or passing blood clots Discharge Patient Instructions, Call or come to emergency department for dizziness Discharge Patient Instructions, Call or come to emergency department chest pain, or shortness of breath Discharge Patient Instructions, Call or come to emergency department for fever greater than 100 ??F Discharge Patient Instructions, Call with any additional questions or concerns Medications What How Much When Instructions Next Dose Unchanged omeprazole (omeprazole 20 mg oral delayed release tablet) 1 tab Oral (given by mouth) Every day ?? What How Much When Comments Stop Taking ibuprofen (ibuprofen 800 mg oral tablet) 1 tab Oral (given by mouth) Every 6 hours Your Summary Your Care Team Admitting Physician - Jeison MCGOVERN, Morris Attending Physician - Jeison MCGOVERN, Morris Primary Care Physician - Mike Goodman Referring Physician - Mike Goodman Your Diagnosis Epigastric pain Family history of colon cancer Family history of gastric cancer Hematochezia S/P partial gastrectomy Problems Ongoing - Any problem that you are currently receiving treatment for. Anorexia Queen's esophagus Change in bowel habits Diaphragmatic hernia Elevated liver function tests Epigastric pain Family history of colon cancer Family history of gastric cancer Fatty liver GERD - Gastro-esophageal reflux disease Globus sensation Hematochezia History of endometriosis Iron deficiency anemia Nausea NSAID long-term use Pelvic pain syndrome Pyrosis S/P cholecystectomy S/P partial gastrectomy Procedures Performed ???Esophagogastroduodenoscopy and Colonoscopy with Biopsy (02/13/2023)???Arthroscopy of knee with meniscus repair Discharge Vitals Temperature??(Temporal Artery) 98.8 ??F (37.1 ??C) Heart Rate??(Peripheral) 66 Respiratory Rate?? 16 Blood Pressure?? 112/75?? Allergies Onion buPROPion Education Materials Upper Endoscopy, Adult, Care After This sheet gives you information about how to care for yourself after your procedure. Your health care provider may also give you more specific instructions. If you have problems or questions, contact your health care provider. What can I expect after the procedure? After the procedure, it is common to have: ? A sore throat. ? Mild stomach pain or discomfort. ? Bloating. ? Nausea. Follow these instructions at home: ? Follow instructions from your health care provider about what to eat or drink after your procedure. ? Return to your normal activities as told by your health care provider. Ask your health care provider what activities are safe for you. ? Take zvbf-ltk-icpbmdp and prescription medicines only as told by your health care provider. ? If you were given a sedative during the procedure, it can affect you for several hours. Do not drive or operate machinery until your health care provider says that it is safe. ? Keep all follow-up visits as told by your health care provider. This is important. Contact a health care provider if you have: ? A sore throat that lasts longer than one day. ? Trouble swallowing. Get help right away if: ? You vomit blood or your vomit looks like coffee grounds. ? You have: ? A fever. ? Bloody, black, or tarry stools. ? A severe sore throat or you cannot swallow. ? Difficulty breathing. ? Severe pain in your chest or abdomen. Summary ? After the procedure, it is common to have a sore throat, mild stomach discomfort, bloating, and nausea. ? If you were given a sedative during the procedure, it can affect you for several hours. Do not drive or operate machinery until your health care provider says that it is safe. ? Follow instructions from your health care provider about what to eat or drink after your procedure. ? Return to your normal activities as told by your health care provider. This information is not intended to replace advice given to you by your health care provider. Make sure you discuss any questions you have with your health care provider. Document Revised: 08/29/2020 Document Reviewed: 02/01/2019 [employer] Patient Education ?? 2022 [employer] Diverticulosis Diverticulosis is a condition that develops when small pouches (diverticula) form in the wall of the large intestine (colon). The colon is where water is absorbed and stool (feces) is formed. The pouches form when the inside layer of the colon pushes through weak spots in the outer layers of the colon. You may have a few pouches or many of them. The pouches usually do not cause problems unless they become inflamed or infected. When this happens, the condition is called diverticulitis. What are the causes? The cause of this condition is not known. What increases the risk? The following factors may make you more likely to develop this condition: ? Being older than age 60. Your risk for this condition increases with age. Diverticulosis is rare among people younger than age 30. By age 80, many people have it. ? Eating a low-fiber diet. ? Having frequent constipation. ? Being overweight. ? Not getting enough exercise. ? Smoking. ? Taking xoin-koc-rhdgjnb pain medicines, like aspirin and ibuprofen. ? Having a family history of diverticulosis. What are the signs or symptoms? In most people, there are no symptoms of this condition. If you do have symptoms, they may include: ? Bloating. ? Cramps in the abdomen. ? Constipation or diarrhea. ? Pain in the lower left side of the abdomen. How is this diagnosed? Because diverticulosis usually has no symptoms, it is most often diagnosed during an exam for othercolon problems. The condition may be diagnosed by: ? Using a flexible scope to examine the colon (colonoscopy). ? Taking an X-ray of the colon after dye has been put into the colon (barium enema). ? Having a CT scan. How is this treated? You may not need treatment for this condition. Your health care provider may recommend treatment toprevent problems. You may need treatment if you have symptoms or if you previously had diverticulitis. Treatment may include: ? Eating a high-fiber diet. ? Taking a fiber supplement. ? Taking a live bacteria supplement (probiotic). ? Taking medicine to relax your colon. Follow these instructions at home: Medicines ? Take ymmk-ram-qdjnigf and prescription medicines only as told by your health care provider. ? If told by your health care provider, take a fiber supplement or probiotic. Constipation prevention Your condition may cause constipation. To prevent or treat constipation, you may need to: ? Drink enough fluid to keep your urine pale yellow. ? Take vjmu-ata-yvljnez or prescription medicines. ? Eat foods that are high in fiber, such as beans, whole grains, and fresh fruits and vegetables. ? Limit foods that are high in fat and processed sugars, such as fried or sweet foods. General instructions ? Try not to strain when you have a bowel movement. ? Keep all follow-up visits as told by your health care provider. This is important. Contact a health care provider if you: ? Have pain in your abdomen. ? Have bloating. ? Have cramps. ? Have not had a bowel movement in 3 days. Get help right away if: ? Your pain gets worse. ? Your bloating becomes very bad. ? You have a fever or chills, and your symptoms suddenly get worse. ? You vomit. ? You have bowel movements that are bloody or black. ? You have bleeding from your rectum. Summary ? Diverticulosis is a condition that develops when small pouches (diverticula) form in the wall of the large intestine (colon). ? You may have a few pouches or many of them. ? This condition is most often diagnosed during an exam for other colon problems. ? Treatment may include increasing the fiber in your diet, taking supplements, or taking medicines. This information is not intended to replace advice given to you by your health care provider. Make sure you discuss any questions you have with your health care provider. Document Revised: 03/30/2020 Document Reviewed: 03/30/2020 [employer] Patient Education ?? 2021 [employer] Colonoscopy, Adult, Care After This sheet gives you information about how to care for yourself after your procedure. Your health care provider may also give you more specific instructions. If you have problems or questions, contact your health care provider. What can I expect after the procedure? After the procedure, it is common to have: ? A small amount of blood in your stool for 24 hours after the procedure. ? Some gas. ? Mild cramping or bloating of your abdomen. Follow these instructions at home: Eating and drinking ? Drink enough fluid to keep your urine pale yellow. ? Follow instructions from your health care provider about eating or drinking restrictions. ? Resume your normal diet as instructed by your health care provider. Avoid heavy or fried foods thatare hard to digest. Activity ? Rest as told by your health care provider. ? Avoid sitting for a long time without moving. Get up to take short walks every 1???2 hours. This isimportant to improve blood flow and breathing. Ask for help if you feel weak or unsteady. ? Return to your normal activities as told by your health care provider. Ask your health care provider what activities are safe for you. Managing cramping and bloating ? Try walking around when you have cramps or feel bloated. ? Apply heat to your abdomen as told by your health care provider. Use the heat source that your health care provider recommends, such as a moist heat pack or a heating pad. ? Place a towel between your skin and the heat source. ? Leave the heat on for 20???30 minutes. ? Remove the heat if your skin turns bright red. This is especially important if you are unable to feel pain, heat, or cold. You may have a greater risk of getting burned. General instructions ? If you were given a sedative during the procedure, it can affect you for several hours. Do not drive or operate machinery until your health care provider says that it is safe. ? For the first 24 hours after the procedure: ? Do not sign important documents. ? Do not drink alcohol. ? Do your regular daily activities at a slower pace than normal. ? Eat soft foods that are easy to digest. ? Take yadb-udy-rthsfuu and prescription medicines only as told by your health care provider. ? Keep all follow-up visits as told by your health care provider. This is important. Contact a health care provider if: ? You have blood in your stool 2???3 days after the procedure. Get help right away if you have: ? More than a small spotting of blood in your stool. ? Large blood clots in your stool. ? Swelling of your abdomen. ? Nausea or vomiting. ? A fever. ? Increasing pain in your abdomen that is not relieved with medicine. Summary ? After the procedure, it is common to have a small amount of blood in your stool. You may also have mild cramping and bloating of your abdomen. ? If you were given a sedative during the procedure, it can affect you for several hours. Do not drive or operate machinery until your health care provider says that it is safe. ? Get help right away if you have a lot of blood in your stool, nausea or vomiting, a fever, or increased pain in your abdomen. This information is not intended to replace advice given to you by your health care provider. Make sure you discuss any questions you have with your health care provider. Document Revised: 08/25/2020 Document Reviewed: 03/27/2020 [employer] Patient Education ?? 2021 [employer]. Patient Name:MEAGAN SCHWARTZ I have received this information and my questions have been answered. Patient/Train Operator Name: Patient/Train Operator Signature: Relationship to Patient: Witness Name/Signature: Date: Electronically Signed on: 02/13/2023 08:24 EDTSigned by:OMER History and physical note * Jeison MCGOVERN, Morris: PERFORM Event Display: History and Physical Authored Date: [id number] MEAGAN SCHWARTZ :1975 Age:47 years Sex:Female Visit Date:02/13/2023 Primary Care Physician: Mike Goodman History of Present Illness 39-year-old female with complex surgical history.?? She is status post Magdaleno fundoplication approximately 12 years ago??with a revision??8 years ago,??persistent??gastric hyperacidity,??unknown??cause??which resulted in??proximal??partial gastrectomy??at [facility].?? She complains of??refractory??pyrosis, epigastric pain.?? Father with colon cancer, mother with gastric cancer,??maternal aunts with??colon cancer??at least one younger than 50 years old??complains of intermittent hematochezia. Physical Exam Vitals & Measurements T:??37.1?C ??(Temporal Artery)?? HR:??66??(Peripheral)?? RR:??16?? BP:??112/75?? SpO2:??99%?? O2 Therapy:??Room air?? Well-developed well-nourished white female no acute distress Lungs: Clear to auscultation bilaterally Heart: Regular rhythm S1-S2 Abdomen: Soft nontender Assessment/Plan 1.??Epigastric pain??R10.13 EGD today. 2.??Family history of colon cancer??Z80.0,??Family history of gastric cancer??Z80.0 4.??Hematochezia??K92.1 Colonoscopy today. 5.??S/P partial gastrectomy??Z90.3 Orders: Normal Saline Flush, 10 mL, IV Flush, Soln, As Directed, PRN online content developer, First Dose: 236:34:00 EDT, Routine Sodium Chloride 0.9% 1,000 mL, Total Volume (mL): 1,000, 1,000 mL, Soln-IV, IV, 50 mL/hr, Start Date: 02/13/23 6:34:00 EDT, 66.68 kg, Populate Charting Weight From Order, 1.69, m2 Blood Glucose Monitoring POC RE, 02/13/23 6:34:00 EDT, Stop date 02/13/23 6:34:00 EDT NPO, 02/13/23 6:34:00 EDT, Constant Indicator Obtain consent, 02/13/23 6:34:00 EDT, Constant Order, 02/13/23 6:34:00 EDT Peripheral IV Insertion, 02/13/23 6:34:00 EDT Saline Lock Convert From IV, 02/13/23 6:34:00 EDT, Stop date 02/13/23 6:34:00 EDT Vital Signs, 02/13/23 6:34:00 EDT, Stop date 02/13/23 6:34:00 EDT, Routine Problem List/Past Medical History Ongoing Anorexia Queen's [...] gastrectomy Historical No qualifying data Procedure/Surgical History ???Arthroscopy of knee with meniscus repair??? section???Cholecystectomy???Dilation and curettage???Hysterectomy???Magdaleno fundoplication???Oophorectomy???Partial gastrectomy Medications Inpatient Normal Saline Flush, 10 mL, IV Flush, As Directed, PRN Sodium Chloride 0.9% 1,000 mL, 1000 mL, IV Home ibuprofen 800 mg oral tablet, 800 mg= 1 tab, Oral, every 6 hr omeprazole 20 mg oral delayed release tablet, 20 mg= 1 tab, Oral, Daily Allergies Onion buPROPion Social History Alcohol Never Electronic Cigarette/Vaping Electronic Cigarette Use: Never. Substance Use Never Tobacco Former tobacco user Tobacco Use:. Family History Cancer: Father. Diabetes mellitus: Father. Heart disease: Father. Hypertension: Father. Electronically Signed on 02/13/23 07:30 AM Morris Mchugh MD Patient Care team information Care Team Personnel Name: Mike Goodman Position: No Access Member Role: Primary Care Physician Address: Address: [address] [place] [address]- [place] Care Team Related Persons Name: MAMIE SCHWARTZ Address: Home [address] [facility] [place], [place] [id number] [facility]
--- OUTSIDE RECORDS SUMMARY | 2024-03-04 00:56 | XMS_ITS | Continuity of Care Document ---
Author Name Unknown Organization [facility] Ambulatory Clinics Address [address] [place] [address] Care Team Providers Care Special Inspector Name Role Phone Mike Goodman Primary Care Physician [phone] Encounter [facility] NBR [id number] Date(s): 03/03/23 - 03/03/23 [facility] Ambulatory Clinics [address] [place], [place] [address] Encounter Diagnosis Anal fissure(Discharge Diagnosis) - 03/03/23 Discharge Disposition: Home or Self Care Attending Physician: Chriss MCGOVERN, Senthil Powell Allergies, Adverse Reactions, Alerts Substance Reaction Severity Status buPROPion Unknown Active Onion Unknown Active Assessment and Plan Future Scheduled Tests Laboratory* Celiac Disease Comprehensive 11/07/22 Functional Status 03/03/23 Living Environment Home Environment No qualifying data available Other exposure to Infectious Disease Non e [...] Temperature Temporal Artery [36-38 Deg C ] 36.7 Deg C (03/03/23 3:11 PM) Apical Heart Rate [60-100 bpm] 93 bpm (03/03/23 3:11 PM) Blood Pressure [90-140/60-90 mmHg] 102/6 8mmHg (03/03/23 3:11 PM) Weight 69.2 kg (03/03/23 3:11 PM) Weight Measured (lbs) 152.56 lb (03/03/23 3:11 PM) [place] Body Weight Calculated 47.8 kg (03/03/23 3:11 PM) Height 154.94 cm (03/03/23 3:11 PM) Height/Length Measured (inches) 61 inch (03/03/23 3:11 PM) BSA Measured 1.73 m2 (03/03/23 3:11 PM) Body Mass Index 28.83 kg/m2 (03/03/23 3:11 PM) Social History Social History Type Response Tobacco Former tobacco user Tobacco Use:. Sex Physician Outpatient Note * Chriss MCGOVERN, Senthil Powell: PERFORM Event Display: Office Clinic Note Physician Authored Date: [id number] MORA BOLANOS :1975 Age:47 years Sex:Female Visit Date:03/03/2023 Primary Care Physician: Mike Goodman Chief Complaint Anal fissure History of Present Illness Mora Bolanos??is a 47-year-old woman referred by??Rehana Solorio APRN for evaluation of anal fissure.?? Mora??reports??intermittent issues with??bright red blood following bowel movements and pain.?She??recalls a history of a bleeding hemorrhoid being banded when she lived in [place].?? She has had??no significant recent??episodes of??bleeding. ??She denies current pain with defecation. ??She is having??occasional??perianal pain with intercourse. ??She is concerned this may related to??history of endometriosis.?? She describes moving her bowels daily without straining or constipation. ??She has had no forceful diarrhea. ??She does describe??thin stools.?? She??is followed regularlyby gastroenterology due to a history of Queen's esophagus as well as??significant family history??of colon cancer in both paternal and maternal sides. ??The question of possible Hammond syndrome has been raised, but she has not undergone genetic testing.?? Mora has underwent several prior surgeries including partial gastrectomy??with Analia-en-Y reconstruction. ??This was in follow-up of a slipped Magdaleno fundoplication??for severe GERD and history of Queen's esophagus.?? She??eats??small amounts daily and has been experiencing worsening??symptoms of reflux despite these interventions. ??She is taking omeprazole. ??She has had??no vomiting.?? She is taking iron for iron deficiency anemia.?? She is concerned as she has persistent elevation of her transfer and low ferritin and iron despite iron replacement.?? She underwent a colonoscopy on 02/13/2023 as part of her regular screening as well as evaluation of her ongoing??iron deficiency. ??This demonstrated??an anal fissure, sigmoid dive rticulosis, and??a polyp within the terminal ileum which was biopsied.?? The anal fissure was believed to be a possible cause for her intermittent hematochezia.?? Mora??has follow-up established with gastroenterology at [facility]. ??This is set up for April.?She denies other significant changes in her health. Review of Systems A 10 point review of systems was completed. ??Notable findings are documented above. Physical Exam Vitals & Measurements T:??36.7?C ??(Temporal Artery)?? HR:??93??(Apical)?? BP:??102/68?? SpO2:??98%?? HT:??154.94??cm?? WT:??69.2??kg?? BMI:??28.83?? BSA:??1.73?? General: No acute distress, pleasant, conversant CV: RRR Pulmonary: Regular breathing rate and effort Abdomen: Soft, nontender, nondistended Examination of the perineum reveals??significant enlargement of the external hemorrhoids. ??There is no tenderness to palpation.?? The previously??seen??anal fissure??is presumably healed as it is nolonger present. ??There is no evidence of sentinel tag or chronic inflammatory changes at the anal verge.?? Digital rectal exam was performed which demonstrated normal resting tone, normal voluntary contraction, and no gross blood. ??A well-lubricated anoscope was inserted.?? The anal canal was normal-appearing with??slightly enlarged hemorrhoids without stigmata of recent bleeding. Assessment/Plan 1.??Anal fissure??K60.2 Mora Bolanos is a 47-year-old woman??with a anal fissure identified on recent colonoscopy.?? Patient has a complex??history with multiple GI issues??which are being managed by gastroenterology aswell as??general surgery at [facility].?? The??fissure identified at the time of her colonoscopy was likely??an acute fissure that is subsequently healed. ??She has no evidence of chronic fissure warranting further intervention. ??We discussed the nature of anal fissures. ??I suspect that she has been dealing with anal fissure and??occasionally??enlarged internal hemorrhoid bleeding??or past several yea rs.?? Despite these intermittent symptoms, she has no consistent??issues with constipation, straining, or diarrhea??exacerbating her symptoms.?? Dietary modification with a high-fiber diet is challenging in individuals s/p??proximal gastrectomy and reconstruction.?? We discussed strategies to treatacute symptoms related to fissure and hemorrhoids with sitz bath's??and topical medications as needed.?? I recommend that Mora follow-up with her gastroenterology as scheduled in April.?? Additionally, she continues to experience dyspareunia, it may be worth following up with??a processing archivist as well. ??Mora demonstrated good understanding and agreed with this plan. ??She can call my office anytime with any further questions or concerns. Problem List/Past Medical History Ongoing Anal fissure [...] disease: Father. Hypertension: Father. Electronically Signed on 03/03/23 04:24 PM Senthil Banerjee MD Reviewed by: Rehana Solorio APRN Patient Care team information Care Team Personnel Name: Mike Goodman Position: No Access Member Role: Primary Care Physician Address: Address: [address] [place] [id number] [place] [address] Care Team Related Persons Name: MAMIE BOLANOS Address: Home [address] [place], [place] [id number] [facility]
--- OUTSIDE RECORDS SUMMARY | 2024-03-04 00:56 | XMS_ITS | Continuity of Care Document ---
Author Name Unknown Organization [facility] Address [address] [place] [id number] Care Team Providers Care Speed Operator Name Role Phone Mike Goodman Primary Care Physician [phone] Encounter [facility] FIN NBR [id number] Date(s): 12/12/22 - 12/12/[address] [address] Discharge Disposition: Home or Self Care Attending Physician: Rehana Solorio APRN Admitting Physician: Rehana Solorio APRN Allergies, Adverse Reactions, Alerts Substance Reaction Severity Status buPROPion Unknown Active Onion Unknown Active Assessment and Plan Future Scheduled Tests Laboratory* Celiac Disease Comprehensive LC 11/07/22 Medications amitriptyline 10 mg oral tablet 20 [...] pleted Oophorectomy Completed Partial gastrectomy Compl eted Results Radiology Reports * Exam Date Time Procedure Performing Provider Status 12/12/22 7:33 AM US Abdomen Limited DomainUserSherman ed; Auth (Verified) Notes: (US Abdomen Limited) Reason For Exam: elevated liver functions US Abdomen Limited EXAM DESCRIPTION: US Abdomen Limited 12/12/2022 INDICATION: ELEVATED LIVER FUNCTIONS TECHNIQUE: Grayscale and color Doppler ultrasound examination of the right upper quadrant region of the abdomen. COMPARISON: None FINDINGS: Liver measures 15.2 cm in maximum dimension. No focal hepatic lesion identified. Mild diffusely increased hepatic echogenicity suggesting hepatic steatosis. No hepatic surface nodularity. The main portal vein is patent with normal flow direction No ascites in the right upper quadrant Pancreas partly obscured by overlying bowel gas. Visualized portions are unremarkable Status post cholecystectomy. No biliary dilatation with common bile duct diameter of 4 mm Right kidney measures 10.9 cm in maximum dimension. No focal right renal mass, hydronephrosis or perinephric fluid collection. IMPRESSION: Findings suggesting mild hepatic steatosis. No focal hepatic lesion identified Status post cholecystectomy. No biliary dilatation. JOB #: [id number] Final Signed by: Shyam Dillon MD Signed (Electronic Signature): 12/12/2022 9:04 am Social History Social History Type Response Tobacco Former tobacco user Tobacco Use:. Sex US Abdomen limited * Shyam Dillon MD: VERIFY, VERIFY Event Display: Report EXAM DESCRIPTION: US Abdomen Limited 12/12/2022 INDICATION: ELEVATED LIVER FUNCTIONS TECHNIQUE: Grayscale and color Doppler ultrasound examination of the right upper quadrant region of the abdomen. COMPARISON: None FINDINGS: Liver measures 15.2 cm in maximum dimension. No focal hepatic lesion identified. Mild diffusely increased hepatic echogenicity suggesting hepatic steatosis. No hepatic surface nodularity. The main portal vein is patent with normal flow direction No ascites in the right upper quadrant Pancreas partly obscured by overlying bowel gas. Visualized portions are unremarkable Status post cholecystectomy. No biliary dilatation with common bile duct diameter of 4 mm Right kidney measures 10.9 cm in maximum dimension. No focal right renal mass, hydronephrosis or perinephric fluid collection. IMPRESSION: Findings suggesting mild hepatic steatosis. No focal hepatic lesion identified Status post cholecystectomy. No biliary dilatation. JOB #: [id number] Final Signed by: Shyam Dillon MD Signed (Electronic Signature): 12/12/2022 9:04 am Patient Care team information Care Team Personnel Name: Mike Goodman Position: No Access Member Role: Primary Care Physician Address: Address: [address] [place] [address]- Care Team Related Persons Name: MAMIE SCHWARTZ Address: Home [address] [facility] [place], [place] [id number] [facility]
--- OUTSIDE RECORDS SUMMARY | 2024-03-04 00:57 | XMS_ITS | Continuity of Care Document ---
Author Name Unknown Organization [facility] Ambulatory Clinics Address [address] [place] [address] Care Team Providers Care Job Setter Honing Name Role Phone Mike Goodman Primary Care Physician Encounter [facility] FIN NBR [id number] Date(s): 12/26/22 - 12/26/[address] [facility] Ambulatory Clinics [address] [place] [address] [place] Discharge Disposition: Home Allergies, Adverse Reactions, Alerts Substance Reaction Severity Status buPROPion Unknown Active Onion Unknown Active Assessment and Plan Future Appointments Future Scheduled Tests Laboratory* Celiac Disease Comprehensive 11/07/22 Medications amitriptyline 10 mg oral tablet [...] pleted Oophorectomy Completed Partial gastrectomy Compl eted Social History Social History Type Response Tobacco Former tobacco user Tobacco Use:. Sex Patient Care team information Care Team Personnel Name: Mike Goodman Position: No Access Member Role: Primary Care Physician Address: Address: [address] [place] [id number] [place] [address] Care Team Related Persons Name: MAMIE SCHWARTZ Address: Home [address] [facility] [place], [place] [id number] [place]
--- OUTSIDE RECORDS SUMMARY | 2024-03-04 00:57 | XMS_ITS | Continuity of Care Document ---
Author Name Unknown Organization [facility] Address [address] [place] [id number] Care Team Providers Care Journeyman Patternmaker Name Role Phone Mike Goodman Primary Care Physician Encounter [facility] FIN NBR [id number] Date(s): 11/07/22 - 11/07/[address] [address]- Encounter Diagnosis Gastro-esophageal reflux disease without esophagitis(Final) - 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(Final) - Other specified abnormal findings of blood chemistry(Final) - Discharge Disposition: Home or Self Care Attending Physician: Rehana Solorio APRN Admitting Physician: Rehana Solorio APRN Allergies, Adverse Reactions, Alerts Substance Reaction Severity Status buPROPion Unknown Active Onion Unknown Active Assessment and Plan Future Appointments Diagnostic Tests Pending * Celiac Disease Comprehensive LC 11/07/22 * Liver-Kidney Microsomal Ab LC 11/07/22 * Hepatitis C Antibody 11/07/22 * Actin (Smooth Muscle) Antibody LC 11/07/22 * [id number], Serum LC 11/07/22 * Ceruloplasmin LC 11/07/22 * Hep A Ab, Total LC 11/07/22 * Hep B Core Ab, Tot LC 11/07/22 * Hepatitis B Surface Antibody 11/07/22 * Hepatitis B Surface Antigen 11/07/22 * Mitochondrial (M2) Antibody LC 11/07/22 Future Scheduled Tests Laboratory* Celiac Disease Comprehensive LC 11/07/22 Radiology* US Abdomen Limited 11/07/22 Medications amitriptyline 10 mg oral tablet [...] Oophorectomy Completed Partial gastrectomy Compl eted Results Laboratory List Name Date CBC w/ Diff 11/07/22 Comprehensive Metabolic Panel (CMP) 11/07 Ferritin 11/07/22 Iron Panel 11/07/22 Automated Diff 11/07/22 Most recent to oldest [Reference Range]: 1 WBC [4.8-10.8 K/mcL] 6.2 K/mcL (11/07/22 5:00 PM) RBC [4.20-5.40 Million/mcL] 4.44 Million /mcL (11/07/22 5:00 PM) Neutro Auto [42.2-75.2 %] 55.0 % (11/07/22 5:00 PM) Lymph Auto [20.5-51.1 %] 36.5 % (11/07/22 5:00 PM) [place] Auto [1.7-9.3 %] 6.6 % (11/07/22 5:00 PM) Basophil Auto [0.0-0.8 %] 0.3 % (11/07/22 5:00 PM) BUN [8-26 mg/dL] 11 mg/dL (11/07/22 5:00 PM) Glucose Level [74-106 mg/dL] 90 mg/dL (11/07/22 5:00 PM) Potassium Level [3.5-5.1 mmol/L] 4.5 mmo l/L (11/07/22 5:00 PM) Baso Absolute [0.0-0.2 K/mcL] 0.0 K/mcL (11/07/22 5:00 PM) MCV [81.0-99.0 fL] 82.2 fL (11/07/22 5:00 PM) AST [15-41 IntlUnit/L] 31 IntlUnit/L (11/07/22 5:00 PM) ALT [14-54 IntlUnit/L] 26 IntlUnit/L (11/07/22 5:00 PM) MCHC [32.0-36.0 g/dL] 32.3 g/dL (11/07/22 5:00 PM) Osmolality [275-295 mOsm/kg] 269 mOsm/kg *LOW* (11/07/22 5:00 PM) Sodium Level [134-143 mmol/L] 135 mmol/L (11/07/22 5:00 PM) Lymph Absolute [1.2-3.4 K/mcL] 2.3 K/mcL (11/07/22 5:00 PM) Hct [37.0-47.0 %] 36.5 % *LOW* (11/07/22 5:00 PM) Calcium Level [8.9-10.3 mg/dL] 9.2 mg/dL (11/07/22 5:00 PM) [place] Absolute [0.1-0.6 K/mcL] 0.4 K/mcL (11/07/22 5:00 PM) Albumin Level [3.5-5.0 g/dL] 3.9 g/dL (11/07/22 5:00 PM) Protein Total [6.5-8.1 g/dL] 6.9 g/dL (11/07/22 5:00 PM) Iron Sat [20-55 %] 8 % *LOW* (11/07/22 5:00 PM) MCH [27.0-31.0 pg] 26.6 pg *LOW* (11/07/22 5:00 PM) Neutro Absolute [1.4-6.5 K/mcL] 3.4 K/mc L (11/07/22 5:00 PM) Bilirubin Total [0.2-1.2 mg/dL] 0.4 mg/d L (11/07/22 5:00 PM) Hgb [12.0-16.0 g/dL] 11.8 g/dL *LOW* (11/07/22 5:00 PM) Transferrin [192-382 mg/dL] 385 mg/dL *HI* (11/07/22 5:00 PM) Alk Phos [38-130 IntlUnit/L] 88 IntlUnit /L (11/07/22 5:00 PM) MPV [7.4-10.4 fL] 10.4 fL (11/07/22 5:00 PM) Ferritin Level [11.0-307.0 ng/mL] 5.6 ng /mL *LOW* (11/07/22 5:00 PM) Platelets [130-400 K/mcL] 275 K/mcL (11/07/22 5:00 PM) CO2 [22-32 mmol/L] 28 mmol/L (11/07/22 5:00 PM) Eos Absolute [0.0-0.2 K/mcL] 0.1 K/mcL (11/07/22 5:00 PM) TIBC 539 *NA* (11/07/22 5:00 PM) Iron [28-170 mcg/dL] 42 mcg/dL (11/07/22 5:00 PM) Chloride Level [98-111 mmol/L] 101 mmol/ L (11/07/22 5:00 PM) RDW-CV [11.5-14.5 %] 12.7 % (11/07/22 5:00 PM) A/G Ratio 1.3 *NA* (11/07/22 5:00 PM) BUN/Creat Ratio [8.0-20.0] 18.6 (11/07/22 5:00 PM) Globulin 3.0 *NA* (11/07/22 5:00 PM) Imm Gran Absolute 0.01 *NA* (11/07/22 5:00 PM) Imm Gran Auto [0.0-0.5 %] 0.2 % (11/07/22 5:00 PM) Creatinine Level [0.44-1.00 mg/dL] 0.59 mg/dL (11/07/22 5:00 PM) Anion Gap [3.0-12.0] 6.0 (11/07/22 5:00 PM) Eos, Auto [0.00-3.00 %] 1.40 % (11/07/22 5:00 PM) eGFR CKD-EPI [>=60 mL/min/1.73 m2] 111 m L/min/1.73 m2 (11/07/22 5:00 PM) Social History Social History Type Response Tobacco Former tobacco user Tobacco Use:. Sex Patient Care team information Care Team Personnel Name: Mike Goodman Position: No Access Member Role: Primary Care Physician Address: Address: [address] [place] [id number] [place] [address] Care Team Related Persons Name: MAMIE SCHWARTZ Address: Home [address] [facility] [place], [place] [id number] [facility]
[2024-03-04 13:07] LABS: Abs Immature Grans 0.01 10^3/uL (0.0-0.06); Absolute Basophil Count 0.02 10^3/uL (0.0-0.2); Absolute Eosinophil Count 0.09 10^3/uL (0.0-0.7); Absolute Lymphocyte Count 2.28 10^3/uL (1.2-3.4); Absolute Neutrophil Count 3.12 10^3/uL (1.2-6.7); Basophils % 0.3 %; Eosinophils % 1.5 %; HCT 40.1 % (36.0-46.0); HGB 13.2 g/dL (11.2-15.7); Immature Grans % 0.2 %; Lymphocytes % 37.9 %; MCHC 32.9 % (32.0-36.0); MCV 85 fL (80-95); MPV 9.7 fL (8.0-11.0); Monocytes % 8.3 %; Neutrophils % 51.8 %; Platelet Count 258 10^3/uL (130-400); RBC 4.72 10^6/uL (3.93-5.22); RDW 12.2 % (11.7-14.6); RDW-SD 37.6 fL; WBC 6.02 10^3/uL (4.4-10.8)
[2024-03-04 13:38] LABS: Ferritin 133 ng/mL (8-252)
== END 2024-03-04 00:56 | disposition home or self-care (01) ==
LOC: LBO 00:55
PROVIDERS: PCP Nurse Practitioner Family; Visit Provider Internal Medicine Hematology & Oncology
DX: D50.0 Iron deficiency anemia secondary to blood loss (chronic) (principal)
CPT/HCPCS: 36415; 82728; 85025

== ENCOUNTER 2024-06-12 13:38 | Outpatient (REF) | payer BC, SELFPAY ==
--- OUTSIDE RECORDS SUMMARY | 2024-06-12 13:40 | XMS_ITS | Encounter Summary ---
Author Organization [employer], Located Within [facility] [place] [address] Care Team Providers Care First Aid Teacher Name Role Phone Mike Goodman DNP Primary Care Provider [phone] Reason for Visit * Auth/Cert (Routine) Specialty Diagnoses / Procedures Referred By Martha broussard Referred To Contact Diagnoses Altered bowel function Bloating Gastroesophageal reflux disease, unspecified whether esophagitis present Esophageal dysphagia Nausea without vomiting Lower abdominal pain EGD hx of barretts, hx of anjel fund, esophageal dypshagia chcf- please take biopsies for EoE, ongoing GERD on BID PPI, wants a second opion EGD- last one done by Dr. Sidra Cohen: diarrhea, watery, please take biopsies for microscopic coltiis Procedures PRO UPPER GI ENDOSCOPY, DIAGNOSTIC PRO COLONOSCOPY, DIAGNOSTIC PRO UPPER GI ENDOSCOPY, BIOPSY PRO UP GI ENDOSCOPY, REMV TUMOR, SNARE PRO COLONOSCOPY, BIOPSY PRO COLONOSCOPY, REMV LESN, SNARE EGD, UPPER GI ENDOSCOPY (WRVU 2.09) COLONOSCOPY, DIAGNOSTIC (WRVU 3.26) Carolyn Lopez MD [facility] [place] [address] [facility] Referral ID Status Reason Start Date Expiration Date Visits Re quested Visits Authorized [id number] 1 1 Encounter Details Date Type Department Care Team (Late st Contact Info) Description 05/24/2024 9:30 AM EDT - 05/24/2024 10:30 AM EDT Surgery [place] [address] Carolyn Lopez MD [facility] [place] [address] EGD WITH BIOPSY (VU 2.39) Social History Tobacco Use Types Packs/Day Years Used Date Smoking Tobacco: Former Cigarettes Q uit: 12/03/2003 Smokeless Tobacco: Never Alcohol Use Standard Drinks/Week Comments No 0 (1 standard drink = 0.6 oz pur e alcohol) [facility] Utilities Answer Date Recorded In the past 12 months has th e electric, gas, oil, or water company threatened to shut off services in your home? Yes 10/16/2023 Overall Financial Resource Strain (CARDIA) Answe r Date Recorded How hard is it for you to pa y for the very basics like food, housing, medical care, and heating? Somewhat hard 10/16/2023 Hunger Vital Sign Answer Date Recorded Within the past 12 months, y ou worried that your food would run out before you got the money to buy more. Never true 10/16/19 24 Within the past 12 months, t he food you bought just didn't last and you didn't have money to get more. Never true 10/16/2023 PRAPARE - Transportation Answer Date Re corded In the past 12 months, has l ack of transportation kept you from medical appointments or from getting medications? No 09/2023 In the past 12 months, has l ack of transportation kept you from meetings, work, or from getting things needed for daily living? No 10/16/2023 Housing Stability Vital Sign Answer Wil e Recorded In the last 12 months, was t here a time when you were not able to pay the mortgage or rent on time? Yes 10/16/2023 In the last 12 months, how many places have you lived? 1 10/16/2023 In the last 12 months, was t here a time when you did not have a steady place to sleep or slept in a intermediate (including now)? No 10/16/2023 DH IPV Inpatient Questions Answer Date Recorded Does Anyone Try to Keep You From Having Contact with Others or Doing Things Outside Your Home? unable to answer (comment required) 07/16/2023 Feels Threatened by Someone unable to an swer (comment required) 07/16/2023 Feels Unsafe at Home or Work/School unab le to answer (comment required) 07/16/2023 Physical Signs of Abuse Present Not on file 07/16/2023 Sex and Gender Information Value Date Recorded Sex Assigned at Not on file Gender Identity Not on file Sexual Orientation Not on file documented as of this encounter Last Filed Vital Signs Vital Sign Reading Time Taken Comments Blood Pressure 100/73 05/24/2024 10:30 AM EDT Pulse 71 05/24/2024 10:20 AM EDT Temperature 36.2 ??C (97.2 ??F) 05/24/2024 9:07 AM ED T Respiratory Rate 16 05/24/2024 10:30 AM EDT Oxygen Saturation 100% 05/24/2024 10:30 AM EDT Inhaled Oxygen Concentration - - Weight - - Height - - Body Mass Index - - documented in this encounter Discharge Instructions * Discharge Instructions* Niraj Kearns, RN - 05/24/2024 11:21 AM EDT Upper Endoscopy (EGD) and Colonoscopy: What to Expect at Home Your Recovery After you have an EGD and colonoscopy, you will stay at the clinic for 1 to 2 hours until the medicines wear off. Then you can go home. But you will need to arrange for a ride. Your doctor will tell you when you can eat and do your other usual activities. Your doctor will talk to you about when you will need your next colonoscopy. Your doctor can help you decide how often you need to be checked. This will depend on the results of your test and your risk for colorectal cancer. You may have a sore throat for a day or two after the test. After the test, you may be bloated or have gas pains. You may need to pass gas. If a biopsy was done or a polyp was removed, you may have streaks of blood in your stool (feces) for a few days. Problems such as heavy rectal bleeding may notoccur until several weeks after the test. This isn't common. But it can happen after polyps are sue alon. This care sheet gives you a general idea about how long it will take for you to recover. But each person recovers at a different pace. Follow the steps below to get better as quickly as possible. How can you care for yourself at home? Activity Rest when you feel tired. You can do your normal activities when it feels okay to do so. Diet Follow your doctor's directions for eating. Unless your doctor has told you not to, drink plenty of fluids. This helps to replace the fluids that were lost during the colon prep. Do not drink alcohol. Medicines If you have a sore throat the day after the test, use an ennv-ooq-oyfdfer spray or lozenges to numbyour throat. Warm salt water gargles can also help the discomfort. Your doctor will tell you if and when you can restart your medicines. He or she will also give you instructions about taking any new medicines. If you take blood thinners, such as warfarin (Coumadin), clopidogrel (Plavix), or aspirin, be sure to talk to your doctor. He or she will tell you if and when to start taking those medicines again. Make sure that you understand exactly what your doctor wants you to do. If polyps were removed or a biopsy was done during the test, your doctor may tell you not to take aspirin or other anti-inflammatory medicines for a few days. These include ibuprofen (Advil, Motrin) and naproxen (Aleve). Other instructions for patients who received sedation: You may have received medications during the procedure which effect your judgement and reaction time. For your safety, do not drive or operate machinery until the medicine wears off and you can think clearly. Your doctor may tell you not to drive or operate machinery until the day after your test. Do not sign legal documents or make major decisions until the medicine wears off and you can think clearly. The anesthesia can make it hard for you to fully understand what you are agreeing to. Be careful on stairs and when standing up quickly as you may be unsteady on your feet. IV site: Slight redness or tenderness is normal. You can use a warm compress if you would like. If tenderness and/or redness increase or if foul drainage occurs, please contact your doctor. Please call [phone] before 8pm Mon-Fri with problems, questions, or concerns. If you call after 8pm or on weekends, call the Hospital at [phone] and ask for the Softball Winder risk and insurance consultant and the head soft sugar operator will contact that person for you. When should you call for help? Call 911 anytime you think you may need emergency care. For example, call if: You passed out (lost consciousness). You pass maroon or bloody stools. You have trouble breathing. Call your doctor now or seek immediate medical care if: You have pain that does not get better after you take pain medicine. You are sick to your stomach or cannot drink fluids. You have new or worse belly pain. You have blood in your stools. You have a fever. You cannot pass stools or gas. Your throat still hurts after a day or two. Your throat still hurts after a day or two. Watch closely for changes in your health, and be sure to contact your doctor if you have any problems. Where can you learn more? You can view health information on [employer], your personal patient account. Log in or sign up today. Content Version: 12.2 ?? [id number] [employer]. Care instructions adapted under license by [facility]. If you have questions about a medical condition or this instruction, always ask your healthcare professional. [employer] disclaims any warranty or liability for your use of this information. documented in this encounter Medications at Time of Discharge Medication Sig Dispensed Refills Start Date End Date ergocalciferoL, vitamin D2, (vitamin D2) 50,000 unit capsule Take 1 capsule by mouth daily. 30 capsule 1 05/03/2024 pantoprazole EC (Protonix) [address] tablet Take 1 tablet by mouth daily. 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 01/11/2011 documented as of this encounter Progress Notes * Niraj Kearns RN - 05/24/2024 11:36 AM EDT Patient alert and oriented, vital signs stable. Reviewed discharge instructions; patient and , Jay, verbalized understanding. Copy of instruction sheet with contact numbers for questions/concerns. Pain assessment documented. Patient escorted out of department via wheelchair with pushing wheelchair. * Mana Powell RN - 05/10/2024 3:34 PM EDT Pt called back and asked for a return call . Called pt and reached VM. Left message to call back 05/10/24 1530 LM x 1 to call GAS Nurse back at [phone] 05/24/24 0930 EGD/[place] [facility] IVCS Arrival Time: 829 Past Medical History: Cardiac History HLD, SVT Diabetic History na CURTIS na COPD/severe asthma na Any concerns with the ability to lie flat with or without breathing difficulty none Home Oxygen na Psychological none Co-morbidities Syncope, Queen's Fundoplication, diarrhea/nausea, Anemia, GERD Current height and weight - In Chart 151 lb 5'1 BMI > 40 [] IV Drug Abuse no Alcohol drinks/week: no Recommend IVCS or Anesthesia: IVCS Review med instructions for procedure complete Anesthesia education complete If the patient is unable to self-consent, plan of action: Name of the person who can consent Phone number if person not present on the day of the procedure documented in this encounter H&P Notes * Carolyn Lopez MD - 05/24/2024 9:36 AM EDT Gastroenterology and Hepatology Pre-Procedure History and Physical Exam Procedure: EGD: Colonoscopy: Indication: 48F with PMHx RYGB, s/p CCY presenting for dysphagia and diarrhea Patient Active Problem List Diagnosis Code Gastroesophageal reflux K21.9 Dyspepsia R10.13 Disorder of female genital organ N94.9 Endometriosis of other specified sites N80.8 Nausea R11.0 S/P partial gastrectomy Z90.3 Paroxysmal SVT (supraventricular tachycardia) I47.10 Chest pressure R07.89 Lipid screening Z13.220 Iron deficiency anemia due to chronic blood loss D50.0 EXAM: HEENT: Airway examined, oropharynx clear Mallampati Score: I (soft palate, uvula, fauces, tonsillar pillars visible) LUNGS: Clear to auscultation HEART: Regular rate and rhythm, normal S1, S2 ABDOMEN: Normal bowel sounds, soft, non tender, non distended A/P Proceed with the planned endoscopic procedure. ASA 2 - Patient with mild systemic disease with no functional limitations Sedation Plan: moderate (conscious sedation) Risks and benefits of the procedure explained to the patient. Consent signed. documented in this encounter Plan of Treatment Upcoming Encounters Date Type Department Care Team (Late st Contact Info) Description 06/15/2024 3:00 PM EDT Hospital [place] [address] [place] [address] 07/09/2024 8:30 AM EDT Appointment XRay at [address] [id number] [place] [address] 07/17/2024 8:00 AM EDT Procedure visit [place] [address] 08/26/2024 8:00 AM EST Office Visit Gastroenterology at [facility] [place] [address] 08/27/2024 9:00 AM EST Clinical Support Gastroenterology at [facility] [place] [address] documented as of this encounter Procedures Procedure Name Priority Date/Time Associated Diagnosis Comments SURGICAL PATHOLOGY Routine 05/24/2024 9: 57 AM EDT Colonoscopy, Biopsy ([id number]) 05/24/2024 9:46 AM EDT Altered bowel function Bloating Gastroesophageal reflux disease, unspecified whether esophagitis present Esophageal dysphagia Nausea without vomiting Lower abdominal pain Upper Gi Endoscopy, Biopsy ([id number]) 05/24/2024 9:46 AM EDT Altered bowel function Bloating Gastroesophageal reflux disease, unspecified whether esophagitis present Esophageal dysphagia Nausea without vomiting Lower abdominal pain UPPER GI ENDOSCOPY Routine 05/24/2024 9: 43 AM EDT COLONOSCOPY Routine 05/24/2024 9:35 AM EDT documented in this encounter Results * Surgical Pathology (05/24/2024 9:57 AM EDT) Case Report Surgical Pathology Report ? Case: [id number] ? Authorizing Provider: ??Carolyn Lopez MD ?Collected: ? 05/24/2024 0957 ? Ordering Location: ? Gastroenterology at [facility] ?? Received: ?05/24/2024 1229 ? Pathologist: ? Stefani Roberts MD ? Specimens: ?? A) - Esophagus, Distal ? B) - Esophagus, Mid ? C) - Colon, nontargeted ? 05/27/2024 1:40 PM EDT [facility] Final Diagnosis A. Esophagus, Distal, Biopsy: Esophageal squamous mucosa within normal limits. B. Esophagus, Mid, Biopsy: Esophageal squamous mucosa within normal limits. C. Colon, nontargeted Biopsy: Colonic mucosa within normal limits. 05/27/2024 1:40 PM EDT [facility] Clinical Information A. Esophagus, Distal, Rule out eosinophilic esophagitis Dysphagia B. Esophagus, Mid, Rule out eosinophilic esophagitis Dysphagia C. Colon, nontargeted Rule out microscopic colitis Diarrhea 05/27/2024 1:40 PM EDT [facility] Gross Description A. Esophagus, Distal, . A - Labeled/Fixative: Esophagus, distal, formalin. Quantity/Size: Fragments, 0.2 to 0.3 cm. Tissue Description: Soft, wispy dukes-white tissues. Sections/Processin g: Submitted in toto in 1 cassette labeled A1. pps B. Esophagus, Mid, . B - Labeled/Fixative: Esophagus, mid, formalin. Quantity/Size: Fragments, averaging 0.2 cm. Tissue Description: Soft, wispy dukes-white tissues. Sections/Processin g: Submitted in toto in 1 cassette labeled B1. pps C. Colon, nontargeted. C - Labeled/Fixative: Colon, nontargeted, formalin. Quantity/Size: Multiple, 0.2 to 0.4 cm. Tissue Description: Soft, dukes-pink tissues. Sections/Processin g: Entirely submitted in 3 cassettes labeled C1-C3. 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 Sidra Cohen: diarrhea, watery, please take biopsies for microscopic coltiis Tissue specimen (specimen) COLON STRUCTURE / Unknown 05/24/2024 10:15 AM EDT 05/24/2024 12:29 PM EDT Comment:Pre-op diagnosis: EGD hx of barretts, hx of anjel fund, esophageal dypshagia chcf- please take biopsies for EoE, ongoing GERD on BID PPI, wants a second opion EGD- last one done by Dr. Truss [place]: diarrhea, watery, please take biopsies for microscopic coltiis Carolyn Lopez MD PATHOLOGY/CYTOLOGY O RDERABLES [facility] [place] [address] * UPPER GI ENDOSCOPY (05/24/2024 9:43 AM EDT) UPPER GI ENDOSCOPY [facility] Procedure Date: 05/24/2024 9:43 AM ? Patient Name: Mora Bolanos ? N: [id number] ? Date of : 1975 ? Age: 48 ? Order #: [id number] ? Instrument Name: [id number]- [id number] ? Procedure: ? Upper GI endoscopy Indications: ? Dysphagia Patient Profile: ? 48F s/p Analia-en-Y with dysphagia Providers: ? Eamon Mccormack, RN, ? Symone Queen, Movie Theater Manager Referring MD: ?Senait Rico Medicines: ? Benzocaine spray, Midazolam 3 mg ? IV, Fentanyl 100 micrograms IV, ? Diphenhydramine 50 mg IV Complications: ? No immediate complications. Procedure: ? Pre-Anesthesia Assessment: ? - Prior to the procedure, a History ? and Physical was performed, and ? patient medications and allergies ? were reviewed. The patient's ? tolerance of previous anesthesia ? was also reviewed. The risks and ? benefits of the procedure and the ? sedation options and risks were ? discussed with the patient. All ? questions were answered, and ? informed consent was obtained. ? Prior Anticoagulants: The patient ? has taken no anticoagulant or ? antiplatelet agents. ASA Grade ? Assessment: II - A patient with ? mild systemic disease. After ? reviewing the risks and benefits, ? the patient was deemed in ? satisfactory condition to undergo ? the procedure. ? The procedure, indications, ? benefits, risks and alternatives ? were explained to the patient. ? Specifically discussed were ? potential complications including, ? but not limited to, bleeding, ? perforation, infection, missing a ? cancer, and adverse medication ? reactions. The Endoscope was ? introduced through the mouth, and ? advanced to the second part of ? duodenum The upper GI endoscopy was ? accomplished without difficulty. ? The patient tolerated the procedure ? well. ? Findings: ? The Z-line was irregular and was found 34 cm from the ? incisors. ? The exam of the esophagus was otherwise normal. ? Biopsies were obtained from the proximal and distal ? esophagus with cold forceps for histology of ? suspected eosinophilic esophagitis. ? Normal stomach ? Normal gastrojejunal anastomosis ? Normal efferent limb jejunum ? Moderate Sedation: ? Moderate (conscious) sedation was administered by the ? nurse and supervised by the endoscopist. The ? patient's oxygen saturation, heart rate, blood ? pressure and response to care were monitored. Impression: ?- Z-line irregular, 34 cm from the ? incisors. ? - Biopsies were taken with a cold ? forceps for evaluation of ? eosinophilic esophagitis. ? - Normal stomach ? - Normal gastrojejunal anastomosis ? - Normal efferent limb jejunum Recommendation: ?-Await pathology results, MD to ? send letter ? -Follow up in GI clinic ? Attending Participation: ? I personally performed the entire procedure. ? Carolyn Lopez MD Carolyn Lopez, 05/24/2024 10:04:17 AM Number of Addenda: 0 Note Initiated On: 05/24/2024 9:43 AM [employer] 05/24/2024 9:43 AM EDT Senait Rico ECONOMIC DEVELOPER GENERAL SURGICAL O RDERABLES [employer] * COLONOSCOPY (05/24/2024 9:35 AM EDT) COLONOSCOPY [facility] End[facility] Procedure Date: 05/24/2024 9:35 AM ? Patient Name: Mora Bolanos ? Date of : 1975 ? Age: 48 ? Order #: [id number] ? Instrument Name: [id number] [id number] ? Procedure: ? Colonoscopy Indications: ? Clinically significant diarrhea of ? unexplained origin Patient Profile: ? 48F with diarrhea Providers: ? Eamon Mccormack, RN, ? Symone Queen, Movie Theater Manager Referring MD: ?Senait Rico [facility]: ? EGD sedation and ? Midazolam 1 mg IV, Fentanyl 50 ? micrograms IV Complications: ? No immediate complications. Procedure: ? Pre-Anesthesia Assessment: ? - Prior to the procedure, a History ? and Physical was performed, and ? patient medications and allergies ? were reviewed. The patient's ? tolerance of previous anesthesia ? was also reviewed. The risks and ? benefits of the procedure and the ? sedation options and risks were ? discussed with the patient. All ? questions were answered, and ? informed consent was obtained. ? Prior Anticoagulants: The patient ? has taken no anticoagulant or ? antiplatelet agents. ASA Grade ? Assessment: II - A patient with ? mild systemic disease. After ? reviewing the risks and benefits, ? the patient was deemed in ? satisfactory condition to undergo ? the procedure. ? The procedure, indications, ? benefits, risks and alternatives ? were explained to the patient. ? Specifically discussed were ? potential complications including, ? but not limited to, bleeding, ? perforation, infection, missing a ? cancer, and adverse medication ? reactions. The patient was placed ? in the left lateral decubitus ? position, and a digital rectal exam ? was performed. The Colonoscope was ? inserted in the anus and under ? direct visualization, advanced to 5 ? cm into the ileum. Careful ? inspection was made as the ? colonoscope was withdrawn. The ? colonoscopy was performed without ? difficulty. The patient tolerated ? the procedure well. The quality of ? the bowel preparation was evaluated ? using the BBPS (Howard Bowel ? Preparation Scale) with scores of: ? Right Colon = 3, Transverse Colon = ? 3 and Left Colon = 3 (entire mucosa ? seen well with no residual ? staining, small fragments of stool ? or opaque liquid). The total BBPS ? score equals 9. The terminal ileum, ? ileocecal valve, appendiceal ? orifice, and rectum were ? photographed. The entire colon was ? examined. Scope withdrawal time was ? 9 minutes. ? Findings: ? Hemorrhoids were found on perianal exam. ? Internal hemorrhoids were found during retroflexion. ? A few diverticula were found in the sigmoid colon. ? Mild scattered erythema adjacent with appearance ? suggestive of mild SCAD ? The colon (entire examined portion) appeared normal. ? Biopsies for histology were taken with a cold forceps ? from the cecum, ascending colon, transverse colon, ? descending colon, sigmoid colon and rectum for ? evaluation of microscopic colitis. ? The terminal ileum appeared normal. ? Moderate Sedation: ? Moderate (conscious) sedation was administered by the ? nurse and supervised by the endoscopist. The ? patient's oxygen saturation, heart rate, blood ? pressure and response to care were monitored. Impression: ?- Hemorrhoids found on perianal ? exam. ? - Internal hemorrhoids. ? - Diverticulosis in the sigmoid ? colon. ? - The entire examined colon is ? normal. Biopsied. ? - The examined portion of the ileum ? was normal. Recommendation: ?-Await pathology results, MD to ? send letter ? -Follow up in GI clinic ? Attending Participation: ? I personally performed the entire procedure. ? Carolny Lopez MD Carolyn Lopez, 05/24/2024 10:24:04 AM Number of Addenda: 0 Note Initiated On: 05/24/2024 9:35 AM [employer]ATION 05/24/2024 9:35 AM EDT Mike Goodman DNP GENERAL SURGICAL OR DERABLES [employer] documented in this encounter Visit Diagnoses Diagnosis Altered bowel function Other symptoms involving digestive system Bloating Flatulence, eructation, and gas pain Gastroesophageal reflux disease, unspecified whether esophagitis present Esophageal dysphagia Dysphagia, pharyngoesophageal phase Nausea without vomiting Lower abdominal pain Abdominal pain, other specified site documented in this encounter Administered Medications Inactive Administered Medications - up to 3 most recent administrations Medication Order MAR Action Action Date Dose Rate Site benzocaine (Hurricane One) 20% spray (restricted to per-procedural use) PRN, Starting on Fri05/24/24 at 0956, Until Fri05/24/24 at 1338, Intra-Operative (Intra-Procedure) Given 05/24/2024 9:56 AM EDT 1 spray diphenhydrAMINE (Benadryl) (50 mg/mL) injection PRN, Starting on Fri05/24/24 at 0954, Until Fri05/24/24 at 1338, Intra-Operative (Intra-Procedure), Routine Given 05/24/2024 9:54 AM EDT 25 mg Given 05/24/2024 9:51 AM EDT 25 mg fentaNYL (pf) (50 mcg/mL) multi-dose injection PRN, Starting on Fri05/24/24 at 0954, Until Fri05/24/24 at 1338, Intra-Operative (Intra-Procedure), Routine Given 05/24/2024 10:06 AM EDT 50 mcg Given 05/24/2024 9:54 AM EDT 50 mcg Given 05/24/2024 9:51 AM EDT 50 mcg lactated ringers infusion 100 mL/hr, Intravenous, CONTINUOUS, Starting on Fri05/24/24 at 0930, Until Fri05/24/24 at 1118, Endoscopy (Day of Procedure) New Bag 05/24/2024 9:18 AM EDT 100 mL/hr 100 mL/hr midazolam (pf) (Versed) (1 mg/mL) multi-dose injection PRN, Starting on Fri05/24/24 at 0954, Until Fri05/24/24 at 1338, Intra-Operative (Intra-Procedure), Routine Given 05/24/2024 10:06 AM EDT 1 mg Given 05/24/2024 9:54 AM EDT 1 mg Given 05/24/2024 9:51 AM EDT 1 mg documented in this encounter Active and Recently Administered Medications Times are shown in EDT. Continuous Medication Order 05/22/2024 05/23/2024 05/24/2024 lactated ringers infusion (CANCELED) 100 mL/hr, Intravenous, CONTINUOUS, Starting on Fri05/24/24 at 0930, Until Fri05/24/24 at 1118, Endoscopy (Day of Procedure) 0918 (New Bag - Prov ider: Melissa Mariscal RN)1120 (Stopped - Provider: Niraj Kearns RN) PRN Medication Order 05/22/2024 05/23/2024 05/24/2024 benzocaine (Hurricane One) 20% spray (restricted to per-procedural use) (CANCELED) PRN, Starting on Fri05/24/24 at 0956, Until Fri05/24/24 at 1338, Intra-Operative (Intra-Procedure) 0956 (Given - Provid er: Eamon Porras RN) diphenhydrAMINE (Benadryl) (50 mg/mL) injection (CANCELED) PRN, Starting on Fri05/24/24 at 0954, Until Fri05/24/24 at 1338, Intra-Operative (Intra-Procedure), Routine 0951 (Given - Provid er: Eamon Porras RN)0954 (Given - Provider: Eamon Porras RN) fentaNYL (pf) (50 mcg/mL) multi-dose injection (CANCELED) PRN, Starting on Fri05/24/24 at 0954, Until Fri05/24/24 at 1338, Intra-Operative (Intra-Procedure), Routine 0951 (Given - Provid er: Eamon Porras RN)0954 (Given - Provider: Eamon Porras RN)1006 (Given - Provider: Eamon Porras RN) midazolam (pf) (Versed) (1 mg/mL) multi-dose injection (CANCELED) PRN, Starting on Fri05/24/24 at 0954, Until Fri05/24/24 at 1338, Intra-Operative (Intra-Procedure), Routine 0948 (Given - Provid er: Eamon Porras RN)0951 (Given - Provider: Eamon Porras RN)0954 (Given - Provider: Eamon Porras RN)1006 (Given - Provider: Eamon Porras RN) documented in this encounter Care Teams First Aid Teacher Relationship Specialty Start Date End Date Mike Goodman DNP [address] [place] [address] PCP - General Family Medicine 08/22/22 documented as of this encounter
--- OUTSIDE RECORDS SUMMARY | 2024-06-12 13:40 | XMS_ITS | Encounter Summary ---
Author Organization [facility] Address [facility] [place] [address] Care Team Providers Care Movement Assembler Name Role Phone Mike Goodman DNP Primary Care Provider [phone] Encounter Details Date Type Department Care Team (Late st Contact Info) Description 04/28/2024 Telephone [place] [phone] Tanner Ngo Social History Tobacco Use Types Packs/Day Years Used Date Smoking Tobacco: Former Cigarettes Q uit: 12/03/2003 Smokeless Tobacco: Never Alcohol Use Standard Drinks/Week Comments No 0 (1 standard drink = 0.6 oz pur e alcohol) [facility] Utilities Answer Date Recorded In the past 12 months has e electric, gas, oil, or water company [...] place to sleep or slept in a long term (including now)? No 10/16/2023 IPV Inpatient Questions Answer Date Recorded Does [...] on file documented as of this encounter Miscellaneous Notes * Telephone Encounter - Tanner Ngo - 04/28/2024 4:22 PM EDT Mora Bolanos [id number] Diagnosis/Indication: EGD hx of barretts, hx of anjel fund, esophageal dypshagia retirement- pleasetake biopsies for EoE, ongoing GERD on BID PPI, wants a second opion EGD- last one done by Dr. Sidra Cohen: diarrhea, watery, please take biopsies for microscopic coltiis Please review patient chart to confirm if previous Endoscopy procedure was performed within system. If yes, take note of Anesthesia type used. If previous procedure found, and with MAC/propofol Anesthesia support was used, schedule this procedure with Anesthesia and skip the Anesthesia portion of questions. If not performed within system, not performed at all, or performed with IVCS, ask Anesthesia questions. SCHEDULING QUESTIONS (ask all patient these questions) Have you ever had a/an Upper Endoscopy & Colonoscopy before? Yes: Date egd DH 07/16/23, colo [place] 3 years ago If yes, did you have any problems with the procedure (such as waking up during the procedure, pain or difficulties afterwards, etc.)? No What type of sedation was used: Other: unknown (ASK ONLY FOR COLONOSCOPY PROCEDURES) Are you aware, or have you ever been told that you had a poor prep or failed prep with a previous colonoscopy? No If yes, assign the Extended MiraLAX Prep (ASK ONLY FOR COLONOSCOPY PROCEDURES) Do you have an ongoing history of constipation? (E.g., hard stools, >2 days without a bowel movement, straining or difficulty passing stool) No If yes, assign the Extended MiraLAX Prep Do you take any blood thinners or have you been diagnosed with a bleeding disorder that increases your risk of bleeding with procedures? No Do you have a Pacemaker or Defibrillator device? If yes, send pool message to Cardiology with patient information and date or procedure. No Do you have diabetes? If yes, call PCP/managing provider to discuss use of prep and any questions or concerns related to. No If yes, assign the Extended MiraLAX Prep Do you take any iron supplements or vitamins that contain iron? No Do you have a preference regarding the gender of your provider? No ANESTHESIA QUESTIONS (YES to any question, please book with Anesthesia support) Have you ever been diagnosed with Pulmonary Hypertension and/or Congential Heart Disease? No Have you been diagnosed with A-Fib (atrial fibrillation) that is NOT being well controled with medications? No Have you ever had an allergic or adverse reaction to Fentanyl or Versed? No Have you had a problem with sedation or anesthesia? (Waking up during procedure, extreme confusion after, etc.) No Do you have a diagnosis of Obstructive Sleep Apnea that requires the use of a c- pap machine? No Do you use an oxygen tank at home? No Do you use a rescue inhaler more than twice per day? (COPD, severe asthma) No Do you experience breathing problems when you lay flat for a period of time? No Do you regularly take prescription opioid pain medications on a daily basis? (Includes oxycodone, Percocet, Suboxone, methadone, etc.) No If yes, assign the Extended MiraLAX Prep SCHEDULING CONFIRMATIONS: Please note any and all parts of your conversation with the patient here. We offer all new patients an opportunity to have an appointment with one of our associate care providers to learn more about your upcoming procedure, ask questions and get answers. These appointmentsare offered via telehealth. Would you be interested in scheduling this appointment? (Only ask if NEW referral patient; skip this question if GI provider ordered the procedure.) No Is there any other information or concerns you would like to us to share with your care team in relation to your upcoming scheduled procedure? No You must have a responsible libertarian who will drive you to your procedure, stay on campus for the entire duration of your procedure, and drive you home from your procedure. Who will likely be your ambulette driver for the procedure? *Please Verify the height and weight, and adjust if height and/or weight have changed* Estimated body mass index is 28.78 kg/m?? as calculated from the following: Height as of 04/27/24: 154.9 cm (5' 1). Weight as of 04/27/24: 69.1 kg (152 lb 4.8 oz). Age:48 y.o. documented in this encounter Plan of Treatment Upcoming Encounters Date Type Department Care Team (Late st Contact Info) Description 06/15/2024 3:00 PM EDT Hospital [place] [address] [place] [address] 07/09/2024 8:30 AM EDT Appointment XRay at [address] [address] [place] [address] 07/17/2024 8:00 AM EDT Procedure [place] [address] 08/26/2024 8:00 AM EST Office [place] [address] 08/27/2024 9:00 AM EST Clinical Support [place] [address] documented as of this encounter Visit Diagnoses Not on filedocumented in this encounter Care Teams Movement Assembler Relationship Specialty Start Date End Date Mike Goodman DNP [address] [place] [address] PCP - General Family Medicine 08/22/22 documented as of this encounter
--- OUTSIDE RECORDS SUMMARY | 2024-06-12 13:40 | XMS_ITS | Encounter Summary ---
[place] [address] Care Team Providers Care Continuous Process Machine Operator Name Role Phone Mike Goodman DNP Primary Care Provider [phone] Encounter Details Date Type Department Care Team (Latest Contact Info) Description 03/01/2024 2:40 PM EDT Laboratory Appointment Lab [address] [phone] Vitamin D deficient osteomalacia Social History Tobacco Use Types Packs/Day Years Used Date Smoking Tobacco: Former Cigarettes Q uit: 12/03/2003 Smokeless Tobacco: Never Alcohol Use Standard Drinks/Week Comments No 0 (1 standard drink = 0.6 oz pur e alcohol) [facility] Utilities Answer Date Recorded In the past 12 months has e electric, gas, oil, or water [employer] threatened to shut off services in your [...] place to sleep or slept in a snf (including now)? No 10/16/2023 IPV Inpatient Questions [...] on file documented as of this encounter Plan of Treatment Upcoming Encounters Date Type Department Care Team (Late st Contact Info) Description 06/15/2024 3:00 PM EDT Hospital Encounter [place] [address] [place] [address] 07/09/2024 8:30 AM EDT Appointment XRay at [address] [phone] [place] [address] 07/17/2024 8:00 AM EDT Procedure visit [place] [address] 08/26/2024 8:00 AM EST Office Visit [place] [address] 08/27/2024 9:00 AM EST Clinical Support [place] [address] documented as of this encounter Procedures Procedure Name Priority Date/Time Associated Diagnosis Comments PTH Routine 03/01/2024 3:28 PM EDT Vitamin D deficient osteomalacia 1,25-DIHYDROXYCHOLECA LCIFEROL Routine 03/01/2024 3:28 PM EDT Vitamin D deficient osteomalacia VITAMIN D, 25-HYDROXY Routine 03/01/2024 3:28 PM EDT Vitamin D deficient osteomalacia PHOSPHORUS Routine 03/01/2024 3:28 PM EDT Vitamin D deficient osteomalacia COMPREHENSIVE METABOLIC PANEL Routine 03/01/2024 3:28 PM EDT Vitamin D deficient osteomalacia documented in this encounter Results * (ABNORMAL) Vitamin D, 25-Hydroxy (03/01/2024 3:28 PM EDT) Pathologist [facility] Vitamin D Total 25 OH 18(L) 21 - 100 ng/mL [facility] Vit D Interp Deficient [facility] Blood 03/01/2024 3:28 PM EDT 03/01/2024 3:48 PM EDT Narrative Resulting Agency Comment Spec In Lab Piotr Carolina MD CHEMISTRY ORDERABLES [facility] [place] [place] [address] * 1,25-dihydroxycholecalciferol (03/01/2024 3:28 PM EDT) [facility] Vit D 1,25 Dihydroxy (JANUARY) 37 18 - 78 pg/mL [facility] Comment: ADDITIONAL INFORMATION This test was developed and its performance characteristics determined by [facility] in a manner consistent with CLIA requirements. This test has not been cleared or approved by the U.S. Food and Drug Administration. Test Performed by: [facility] - [facility] [address] [place] [address] Web Analytics Specialist: Talat Meier Ph.D.; CLIA# [id number] Blood 03/01/2024 3:28 PM EDT 03/02/2024 2:38 PM EDT Narrative Resulting Agency Comment Spec In Lab Piotr Carolina MD LAB SEND OUT ORDERAB LES [facility] [place] [address] * (ABNORMAL) Comprehensive metabolic panel (non-fasting) (03/01/2024 3:28 PM EDT) Glucose 91 65 - 199 mg/dL [facility] Comment:Diabetes: >=200 mg/d L plus symptoms Blood Urea Nitrogen 6(L) 8 - 18 mg/dL [facility] Creatinine 0.78 0.70 - 1.20 mg/dL [facility] Sodium 143 135 - 145 mmol/L [facility] Potassium 4.2 3.5 - 5.0 mmol/L [facility] Comment: Please note: ??Patients with WBC >100,000 may have falsely elevated Potassium levels. ??For accurate Potassium quantification in these patients send serum separator tube (gold top) for subsequent determinations. ??Contact the Clinical Chemistry Laboratory if there are any questions. Chloride 104 98 - 107 mmol/L [facility] Carbon Dioxide 28 22 - 31 mmol/L [facility] Anion Gap 11 5 - 15 mmol/L [facility] Calcium 9.3 8.5 - 10.5 mg/dL [facility] Protein, Total 6.6 6.1 - 8.0 g/dL [facility] Albumin 4.1 3.2 - 5.2 g/dL [facility] Aspartate Aminotransferase 25 0 - 30 unit/L [facility] Alanine Aminotransferase 23 0 - 30 unit/L [facility] Alkaline Phosphatase 111(H) 35 - 105 unit/L [facility] Bilirubin, Total 0.3 0.2 - 1.3 mg/dL [facility] Est Glomerular Filtration Rate 93 >=60 mL/min/1. 73 m?? [facility] Comment: This patient's estimated GFR was calculated using the 2020 CKD-EPI equation. The estimated GFR can vary from the measured GFR by up to 30% in the absence of rapidly changing kidney function. Assessment of the estimated GFR is not appropriate when creatinine concentrations are rapidly changing. For clinical situations in which a more precise estimate of GFR is necessary, consider alternative methods of GFR estimation such as a 24-hour urine creatinine clearance. Assignment of CKD stage 1-5 for patients with an eGFR near the transition point between stages may be based on clinical assessment of muscle mass and symptoms in addition to eGFR. Blood 03/01/2024 3:28 PM EDT 03/01/2024 3:48 PM EDT Narrative Resulting Agency Comment Spec In Lab Piotr Carolina MD CHEMISTRY ORDERABLES Performing Organization Address City/[facility] [place] [address] * Phosphorus (03/01/2024 3:28 PM EDT) Phosphorus 3.9 2.5 - 4.5 mg/dL [facility] Blood 03/01/2024 3:28 PM EDT 03/01/2024 3:48 PM EDT Narrative Resulting Agency Comment Spec In Lab Piotr Carolina MD CHEMISTRY ORDERABLES Performing Organization Address City/[facility]/ZIP Co de Phone Number [facility] [place] [address] * (ABNORMAL) PTH (03/01/2024 3:28 PM EDT) Parathyroid Hormone 76(H) 15 - 65 pg/mL [facility] Blood 03/01/2024 3:28 PM EDT 03/01/2024 3:48 PM EDT Narrative Resulting Agency Comment Spec In Lab Piotr Carolina MD CHEMISTRY ORDERABLES [facility] [place] [address] documented in this encounter Visit Diagnoses Diagnosis Vitamin D deficient osteomalacia Osteomalacia, unspecified documented in this encounter Care Teams Continuous Process Machine Operator Relationship Specialty Start Date End Date Mike Goodman DNP [address] [place] [address] PCP - General Family Medicine 08/22/22 documented as of this encounter
--- OUTSIDE RECORDS SUMMARY | 2024-06-12 13:40 | XMS_ITS | Encounter Summary ---
Author Organization [facility] [place] [address] Care Team Providers Care Concrete Pump Operator Name Role Phone Mike Goodman DNP Primary Care Provider [phone] Encounter Details Date Type Department Care Team (Late st Contact Info) Description 06/02/2024 Telephone [place] [address] Michael Sorensen Social History Tobacco Use Types Packs/Day Years Used Date Smoking Tobacco: Former Cigarettes Q uit: 12/03/2003 Smokeless Tobacco: Never Alcohol Use Standard Drinks/Week Comments No 0 (1 standard drink = 0.6 oz pur e alcohol) [facility] Utilities Answer Date Recorded In the [...] place to sleep or slept in a alf (including now)? No 10/16/2023 IPV Inpatient Questions [...] encounter Miscellaneous Notes * Telephone Encounter - Michael Sorensen - 06/02/2024 5:07 PM EDT Inbound/Outbound: Outbound Spoke to Patient/Left Message: Left message Notes: Outbound call to patient to schedule motility lab testing from referral. Left message askingfor callback to schedule. Return calls can be handled by: Motility Lab Renal Dialysis Technician documented in this encounter Plan of Treatment Upcoming Encounters Date Type Department Care Team (Late st Contact Info) Description 06/15/2024 3:00 PM EDT Hospital [place] [address] [place] [address] 07/09/2024 8:30 AM EDT Appointment XRay at [address] [phone] [place] [address] 07/17/2024 8:00 AM EDT Procedure visit [place] [address] 08/26/2024 8:00 AM EST Office [place] [address] 08/27/2024 9:00 AM EST Clinical Support [place] [address] documented as of this encounter Visit Diagnoses Not on filedocumented in this encounter Care Teams Concrete Pump Operator Relationship Specialty Start Date End Date Mike Goodman DNP [address] [place] [address] PCP - General Family Medicine 08/22/22 documented as of this encounter
--- OUTSIDE RECORDS SUMMARY | 2024-06-12 13:40 | XMS_ITS | Encounter Summary ---
[place] [address] Care Team Providers Care Firer Low Pressure Name Role Phone Mike Goodman KYLE Primary Care Provider [phone] Reason for Referral * Diagnostic Test (Routine) - Authorized Specialty Diagnoses / Procedures Referred By Martha broussard Referred To Contact Radiology Diagnoses Altered bowel function Lower abdominal pain Procedures CT Enterography [place] [address] [place] [address] Referral ID Status Reason Start Date Expiration Date Visits Requested Visits Authorized [id number] Authorized Specialty Service Requested 06/07/2024 12/05/2025 1 1 Encounter Details Date Type Department Care Team (Late st Contact Info) Description 06/07/2024 Orders [place] [address] Alena Pizarro [place] [address] Altered bowel function; Lower abdominal pain Social History Tobacco Use Types Packs/Day Years Used Date Smoking Tobacco: Former Cigarettes Q uit: 12/03/2003 Smokeless Tobacco: Never Alcohol Use Standard Drinks/Week Comments No 0 (1 standard drink = 0.6 oz pur e alcohol) [facility] Utilities Answer Date Recorded In [...] place to sleep or slept in a senior care (including now)? No 10/16/2023 DH IPV Inpatient [...] PM EDT Hospital [place] [address] Alena Pizarro [place] [address] 07/09/2024 8:30 AM EDT Appointment XRay at [address] [address] Alena Pizarro [place] [address] 07/17/2024 8:00 AM EDT Procedure [place] [address] 08/26/2024 8:00 AM EST Office [place] [address] 08/27/2024 9:00 AM EST Clinical [place] [address] Scheduled Orders Name Type Priority Associated Diagnoses Orde r Schedule CT Enterography Imaging Routine Altered bowel function Lower abdominal pain Expected: 06/07/2024, Expires: 12/07/2024 documented as of this encounter Visit Diagnoses Diagnosis Altered bowel function Other symptoms involving digestive system Lower abdominal pain Abdominal pain, other specified site documented in this encounter Care Teams Firer Low Pressure Relationship Specialty Start Date End Date Mike Goodman DNP [address] [place] [address] PCP - General Family Medicine 08/22/22 documented as of this encounter
--- OUTSIDE RECORDS SUMMARY | 2024-06-12 13:40 | XMS_ITS | Encounter Summary ---
[place] [address] Care Team Providers Care Classifier Operator Name Role Phone Mike Goodman KYLE Primary Care Provider [phone] Reason for Referral * Consultation (Routine) - Closed Specialty Diagnoses / Procedures Referred By Martha broussard Referred To Contact Gastroenterology Diagnoses Chronic abdominal pain Senait Rico APRN [facility] [place] [address] [facility] [address] [address] Referral ID Status Reason Start Date Expiration Date V isits Requested Visits Authorized [id number] Closed Consult, Test & Treat 02/11/2024 02/10/2025 1 1 Encounter Details Date Type Department Care Team (Late st Contact Info) Description 02/11/2024 Orders [place] [address] Senait Rico A OPERATOR [facility] [place] [address] Chronic abdominal pain Social History Tobacco Use Types Packs/Day Years Used Date Smoking Tobacco: Former Cigarettes Q uit: 12/03/2003 Smokeless Tobacco: Never Alcohol Use Standard Drinks/Week Comments No 0 (1 standard drink = 0.6 oz pur e alcohol) [facility] Utilities Answer Date Recorded In the past [...] place to sleep or slept in a nursing home (including now)? No 10/16/2023 DH IPV Inpatient [...] PM EDT Hospital [place] [address] [place] [address] 07/09/2024 8:30 AM EDT Appointment XRay at [address] [address] [place] [address] 07/17/2024 8:00 AM EDT Procedure [place] [address] 08/26/2024 8:00 AM EST Office [place] [address] 08/27/2024 9:00 AM EST Clinical [place] [address] Scheduled Referrals Name Type Priority Associated Diagnoses Order Schedule Referral to Gastroenterology Outpatient Referral Routine Chronic abdominal pain Ordered: 02/11/2024 documented as of this encounter Visit Diagnoses Diagnosis Chronic abdominal pain Abdominal pain, unspecified site documented in this encounter Care Teams Classifier Operator Relationship Specialty Start Date End Date Mike Goodman DNP [address] [place] [address] PCP - General Family Medicine 08/22/22 documented as of this encounter
--- OUTSIDE RECORDS SUMMARY | 2024-06-12 13:40 | XMS_ITS | Encounter Summary ---
Author Organization [facility]ly [facility] Address [facility] [place] [address] Care Team Providers Care Wound Care Coordinator Name Role Phone Mike Goodman DNP Primary Care Provider [phone]- [phone] Encounter Details Date Type Department Care Team (Latest Contact Info) Description 04/27/2024 Travel Social History Tobacco Use Types Packs/Day Years Used Date Smoking Tobacco: Former Cigarettes Q uit: 12/03/2003 Smokeless Tobacco: Never Alcohol Use Standard Drinks/Week Comments No 0 (1 standard drink = 0.6 oz pur e alcohol) [facility] Utilities Answer Date Recorded In the [...] place to sleep or slept in a skilled nursing (including now)? No 10/16/2023 IPV Inpatient Questions [...] PM EDT Hospital Encounter [place] [address] Alena Pizarro [employer] [place] [address] 07/09/2024 8:30 AM EDT Appointment XRay at [address] [address] Alena Pizarro [employer] [place] [address] 07/17/2024 8:00 AM EDT Procedure visit [place] [address] 08/26/2024 8:00 AM EST Office [place] [address] 08/27/2024 9:00 AM EST Clinical Support Gastroenterology at [place] [id number] documented as of this encounter Visit Diagnoses Not on filedocumented in this encounter Care Teams Wound Care Coordinator Relationship Specialty Start Date End Date Mike Goodman DNP [address] [place] [address] PCP - General Family Medicine 08/22/22 documented as of this encounter
--- OUTSIDE RECORDS SUMMARY | 2024-06-12 13:40 | XMS_ITS | Encounter Summary ---
Author Organization [facility] Address [facility] [place] [address] Care Team Providers Care Recycling Sorter Name Role Phone Mike Goodman DNP Primary Care Provider [phone]- [phone] Encounter Details Date Type Department Care Team (Latest Contact Info) Description 03/04/2024 Travel Social History Tobacco Use Types Packs/Day Years Used Date Smoking Tobacco: Former Cigarettes Q uit: 12/03/2003 Smokeless Tobacco: Never Alcohol Use Standard Drinks/Week Comments No 0 (1 standard drink = 0.6 oz pur e alcohol) [facility] Utilities Answer Date Recorded In the past [...] place to sleep or slept in a correction (including now)? No 10/16/2023 IPV Inpatient Questions [...] PM EDT Hospital [place] [address] [place] [address] 07/09/2024 8:30 AM EDT Appointment XRay at [address] [address] [place] [address] 07/17/2024 8:00 AM EDT Procedure [place] [address] 08/26/2024 8:00 AM EST Office [place] [address] 08/27/2024 9:00 AM EST Clinical Support Gastroenterology at [place] [id number] documented as of this encounter Visit Diagnoses Not on filedocumented in this encounter Care Teams Recycling Sorter Relationship Specialty Start Date End Date Mike Goodman DNP [address] [place] [address] PCP - General Family Medicine 08/22/22 documented as of this encounter
--- OUTSIDE RECORDS SUMMARY | 2024-06-12 13:40 | XMS_ITS | Encounter Summary ---
Author Organization [facility] Address [facility] [place] [address] Care Team Providers Care Wash Operator Name Role Phone Mike Goodman DNP Primary Care Provider Encounter Details Date Type Department Care Team (Latest Contact Info) Description 03/01/2024 2:39 PM EDT - 03/01/2024 11:59 PM EDT Hospital Encounter Mammography/[place] [address] Zahida Interiano MD Vitamin D deficient osteomalacia Discharge Disposition: Home Social History Tobacco Use Types Packs/Day Years Used Date Smoking Tobacco: Former Cigarettes Q uit: 12/03/2003 Smokeless Tobacco: Never Alcohol Use Standard Drinks/Week Comments No 0 (1 standard drink = 0.6 oz pur e alcohol) [facility] Utilities Answer Date Recorded In the past 12 months has [employer], gas, oil, or water [employer] threatened to shut off services in your [...] place to sleep or slept in a assisted (including now)? No 10/16/2023 DH IPV Inpatient [...] on file documented as of this encounter Medications at Time of Discharge Medication Sig Dispensed Refills Start Date End Date pantoprazole EC (Protonix) [address] tablet Take 1 tablet by mouth daily. 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 01/11/2011 acetaminophen (Tylenol) 325 mg tablet Take 650 mg by mouth every 4 hours as needed for Pain. 05/21/2024 calcium carbonate (Tums) 200 mg calcium (500 mg) Tablet, Chewable Take 1 tablet by mouth as needed for Heartburn. 05/03/2024 Calcium Carbonate-Mag Hydroxid (Rolaids) 550-110 mg Tablet, Chewable Take 1 tablet by mouth as needed. 05/03/2024 documented as of this encounter Plan of Treatment Upcoming Encounters Date Type Department Care Team (Late st Contact Info) Description 06/15/2024 3:00 PM EDT Hospital [place] [address] Alena Pizarro [employer] [address] 07/09/2024 8:30 AM EDT Appointment XRay at [address] [phone] Alena Pizarro [place] [address] 07/17/2024 8:00 AM EDT Procedure visit [place] [address] 08/26/2024 8:00 AM EST Office [place] [address] 08/27/2024 9:00 AM EST Clinical [place] [address] documented as of this encounter Procedures Procedure Name Priority Date/Time Associated Diagnosis Comments DXA CENTRAL SPINE, HIP, AND/OR WHOLE BODY (GENERIC) Routine 03/01/2024 3:26 PM EDT Vitamin D deficient osteomalacia documented in this encounter Results * DXA Central Spine, Hip, and/or Whole Body (Generic) (03/01/2024 3:26 PM EDT) WORKSTATION ID DH RAD Anatomical Region Laterality Modality C-spine, Hip N/A Other Impressions 03/01/2024 5:16 PM EDT 1. ??Measurements meet WHO criteria for osteopenia. 2. ??Although quantitative comparison for bone mineral density changes cannot be performed between equipment at different institutions which has not been cross calibrated, the WHO classification is unchanged since 2019.This will be considered a new baseline exam to compare with future DXA scans performed at [facility]. Prevent Fractures! PATIENTS NOT ON TREATMENT: For patients with osteopenia, *the fracture risk calculated by FRAX is displayed below*. Offer treatment for osteoporosis (calcium, vitamin D, and medication) if: * ??T less than or equal to -2.5, after excluding or treating secondary causes * ??FRAX gives a 10-year risk of hip fracture greater than or equal to 3% or major osteoporotic fracture (MOF) greater than or equal to 20% * ??Fragility fracture, regardless of T score (fracture without trauma, or from trauma equivalent to falling from standing height or less) If not treating, repeat DXA at the following intervals: * ??T greater than or equal to -1(normal): Repeat DXA in 10-15 years * ??T -1.0 to -1.5 (mild osteopenia): Repeat DXA in 10-15 years * ??T -1.5 to 2.0 (moderate osteopenia): Repeat DXA in 5 years * ??T -2.0 to -2.5 (severe osteopenia): Repeat DXA in 2 years DXA data sheets with BMD measurements and plots are available in [employer] under the imaging tab. Paper copies will be sent to providers without [employer] access. If you have received this report without the data sheet and do not have access to [employer], please contact Radiology Rn Acute Care at [phone] Friday thru Friday 8am-4pm. ? Bone Density Report ? Name: ?Mora Bolanos Age: ? 48 Sex: ? Female Ethnicity: ? White Date of : 1975 Referring Provider: ZAHIDA INTERIANO Study: Bone densitometry was performed. Model: FantasyHub (S/N [id number]) SW version 13.6.1.3 Exam Date: March 01, 2024 Accession number: [id number] Bone Density: Region ? BMD ?T-score ??Z-score ? AP Spine(L1-L4) ?0.824 ?? -2.0 ? -1.3 ? Femoral Neck (Left) ?0.641 ?? -1.9 ? -1.2 ? Total Hip (Left) ? 0.768 ?? -1.4 ? -1.0 ? Total Forearm (Left) ? 0.508 ?? -1.3 ? -0.6 ? 1/3 Forearm (Left) ? 0.677 ?? -0.3 ?0.4 ? UD Forearm (Left) ?0.309 ?? -2.3 ? -1.8 ? World Health Organization criteria for BMD impression classify patients as: Normal (T-score at or above -1.0), Osteopenia (T-score between -1.0 and -2.5), or Osteoporosis (T-score at or below -2.5). 10-year Fracture Risk(1): Major Osteoporotic Fracture ?4.8% Hip Fracture ? 0.5% Reported Risk Factors: [place] (), Neck BMD=0.641, BMI=29.4 (1) FRAX(R) Version 3.08. Fracture probability calculated for an untreated patient. Fracture probability may be lower if the patient has received treatment. Thank you for letting us participate in the care of this patient. ??If you are a health care provider and have any questions regarding this report, please contact the number below. ??For patients who have questions please contact the health rn medicare that requested your imaging first. ? Electronically signed by: Jethro Hutchins MD, [facility] ([phone]), at 03/01/2024 5:16 PM Narrative 03/01/2024 5:16 PM EDT EXAMINATION: DXA CENTRAL SPINE, HIP, AND/OR WHOLE BODY (GENERIC) CLINICAL HISTORY: 48 years Female Low Vit D from Malabsorption ? Osteoprosis/Osteomalacia (as entered by ordering provider) TECHNIQUE: Scans were acquired at the lumbar spine, left hip and left forearm using the Hologic Horizon A system. COMPARISON: Outside hospital DXA 02/17/2019 FINDINGS: Femoral neck BMD: 0.641 g/cm2 Lowest T-score at a diagnostic region of interest: T-score: -2, KARINE: Lumbar spine, WHO diagnosis: ??osteopenia. Procedure Note Jethro Hutchins MD - 03/01/2024 EXAMINATION: DXA CENTRAL SPINE, HIP, AND/OR WHOLE BODY (GENERIC) CLINICAL HISTORY: 48 years Female Low Vit D from Malabsorption ? Osteoprosis/Osteomalacia (as entered by ordering provider) TECHNIQUE: Scans were acquired at the lumbar spine, left hip and leftforearm using the Hologic Horizon A system. COMPARISON: Outside hospital DXA 02/17/2019 FINDINGS: Femoral neck BMD: 0.641 g/cm2 Lowest T-score at a diagnostic region of interest: T-score: -2, KARINE: Lumbar spine, WHO diagnosis: osteopenia. IMPRESSION 1. Measurements meet WHO criteria for osteopenia. 2. Although quantitative comparison for bone mineral density changescannot be performed between equipment at different institutions which has not beencross calibrated, the WHO classification is unchanged since 2019.This will be considered a new baseline exam to compare with future DXA scans performedat [facility]. Prevent Fractures! PATIENTS NOT ON TREATMENT: For patients with osteopenia, *the fracture risk calculated by FRAX isdisplayed below*. Offer treatment for osteoporosis (calcium, vitamin D, and medication)if: * T less than or equal to -2.5, after excluding or treating secondarycauses * FRAX gives a 10-year risk of hip fracture greater than or equal to 3%or major osteoporotic fracture (MOF) greater than or equal to 20% * Fragility fracture, regardless of T score (fracture without trauma, orfrom trauma equivalent to falling from standing height or less) If not treating, repeat DXA at the following intervals: * T greater than or equal to -1(normal): Repeat DXA in 10-15 years * T -1.0 to -1.5 (mild osteopenia): Repeat DXA in 10-15 years * T -1.5 to 2.0 (moderate osteopenia): Repeat DXA in 5 years * T -2.0 to -2.5 (severe osteopenia): Repeat DXA in 2 years DXA data sheets with BMD measurements and plots are available in [employer] the imaging tab. Paper copies will be sent to providers without [facility] access.If you have received this report without the data sheet and do not haveaccess to [employer], please contact Radiology Rn Acute Care at [phone] Friday thruFriday 8am-4pm. Bone Density Report Name: Mora Bolanos Age: 48 Sex: Female Ethnicity: White Date of : 1975 Referring Provider: ZAHIDA INTERIANO Study: Bone densitometry was performed. Model: FantasyHub (S/N [id number]) SW version 13.6.1.3 Exam Date: March 01, 2024 Accession number: [id number] Bone Density: Region BMD T-score Z-score AP Spine(L1-L4) 0.824 -2.0 -1.3 Femoral Neck (Left) 0.641 -1.9 -1.2 Total Hip (Left) 0.768 -1.4 -1.0 Total Forearm (Left) 0.508 -1.3 -0.6 1/3 Forearm (Left) 0.677 -0.3 0.4 UD Forearm (Left) 0.309 -2.3 -1.8 World Health Organization criteria for BMD impression classify patients as: Normal (T-score at or above -1.0), Osteopenia (T-score between -1.0 and -2.5), or Osteoporosis (T-score at or below -2.5). 10-year Fracture Risk(1): Major Osteoporotic Fracture 4.8% Hip Fracture 0.5% Reported Risk Factors: [place] (), Neck BMD=0.641, BMI=29.4 (1) FRAX(R) Version 3.08. Fracture probability calculated for an untreated patient. Fracture probability may be lower if the patient has received treatment. Thank you for letting us participate in the care of this patient. If youare a health care provider and have any questions regarding this report,please contact the number below. For patients who have questions please contactthe health rn medicare that requested your imaging first. Zahida Interiano MD IMG DEXA ORDERABLES documented in this encounter Visit Diagnoses Diagnosis Vitamin D deficient osteomalacia Osteomalacia, unspecified documented in this encounter Care Teams Wash Operator Relationship Specialty Start Date End Date Mike Goodman DNP [address] [place] [address] PCP - General Family Medicine 08/22/22 documented as of this encounter
--- OUTSIDE RECORDS SUMMARY | 2024-06-12 13:40 | XMS_ITS | Encounter Summary ---
Author Organization [facility] [place] [address] Care Team Providers Care Hospital Housekeeper Name Role Phone Mike Goodman DNP Primary Care Provider [phone] Reason for Visit * Auth/Cert (Routine) Specialty Diagnoses / Procedures Referred By Martha broussard Referred To Contact Diagnoses Altered bowel function Bloating Gastroesophageal reflux disease, unspecified whether esophagitis present Esophageal dysphagia Nausea without vomiting Lower abdominal pain EGD hx of barretts, hx of anjel fund, esophageal dypshagia jail- please take biopsies for EoE, ongoing GERD [...] COLONOSCOPY, DIAGNOSTIC (WRVU 3.26) Carolyn Lopez MD [facility] [place] [address] [facility] Referral ID Status Reason Start Date Expiration Date Visits Re quested Visits Authorized [id number] 1 1 Encounter Details Date Type Department Care Team (Latest Contact Info) Description 05/24/2024 8:44 AM EDT - 05/24/2024 11:30 AM EDT Hospital [place] [address] Carolyn Lopez MD [facility] [place] [address] Discharge Disposition: Home Social History Tobacco Use Types Packs/Day Years Used Date Smoking Tobacco: Former Cigarettes Q uit: 12/03/2003 Smokeless Tobacco: Never Alcohol Use Standard Drinks/Week Comments No 0 (1 standard drink = 0.6 oz pur e alcohol) [facility] Utilities Answer Date Recorded In [...] place to sleep or slept in a penitentiary (including now)? No 10/16/2023 DH IPV Inpatient [...] Sign Reading Time Taken Comments Blood Pressure 111/65 05/24/2024 11:00 AM EDT Pulse 71 05/24/2024 10:20 AM EDT Temperature 36.2 ??C (97.2 ??F) 05/24/2024 9:07 AM ED T Respiratory Rate 16 05/24/2024 11:00 AM EDT Oxygen Saturation 99% 05/24/2024 11:00 AM EDT Inhaled Oxygen Concentration - - Weight - - Height - - Body Mass Index - - documented in this encounter Discharge Instructions * Discharge Instructions* Niraj Kearns RN - 05/24/2024 11:21 AM EDT Upper [...] the day after the test, use an cddd-lgh-mjxkseb spray or lozenges to numbyour throat. Warm [...] occurs, please contact your doctor. Please call [phone] before 8pm Mon-Fri with problems, questions, or concerns. If you call after 8pm or on weekends, call the Hospital at [phone] and ask for the Body Masker chronic disease manager and the wood carving lathe operator will contact that person for you. [...] more? You can view health information on [employer], your personal patient account. Log in or sign up today. Content Version: 12.2 ?? [id number] [employer]. Care instructions adapted under license by [facility]. If you have questions about a medical condition or this instruction, always ask your healthcare professional. [employer] disclaims any warranty or liability for your [...] 1 to call GAS Nurse back at [phone] 05/24/24 0930 EGD/[facility] IVCS Arrival Time: 829 Past Medical [...] PM EDT Hospital [place] [address] [place] [address] 07/09/2024 8:30 AM EDT Appointment XRay at [address] [phone] [place] [address] 07/17/2024 8:00 AM EDT Procedure [place] [address] 08/26/2024 8:00 AM EST Office [place] [address] 08/27/2024 9:00 AM EST Clinical [place] [address] documented as of this encounter Procedures Procedure Name Priority Date/Time Associated Diagnosis Comments SURGICAL PATHOLOGY Routine 05/24/2024 9: 57 AM EDT Colonoscopy, Biopsy ([id number]) 05/24/2024 9:46 AM EDT Altered bowel function Bloating Gastroesophageal reflux disease, unspecified whether esophagitis present Esophageal dysphagia Nausea without vomiting Lower abdominal pain Upper Gi Endoscopy, Biopsy ([id number]) 05/24/2024 9:46 AM EDT Altered bowel function Bloating Gastroesophageal reflux disease, unspecified whether esophagitis present Esophageal dysphagia Nausea without vomiting Lower abdominal pain UPPER GI ENDOSCOPY Routine 05/24/2024 9: 43 AM EDT COLONOSCOPY Routine 05/24/2024 9:35 AM EDT documented in this encounter Results * Surgical Pathology (05/24/2024 9:57 AM EDT) Case Report Surgical Pathology Report ? Case: [id number] ? Authorizing Provider: ??Carolyn Lopez MD ?Collected: ? 05/24/2024 0957 ? Ordering Location: ? [place] [facility] [place] Received: ?05/24/2024 1229 ? Pathologist: ? Stefani Roberts MD ? Specimens: ?? A) - Esophagus, Distal ? B) - Esophagus, Mid ? C) - Colon, nontargeted ? 05/27/2024 1:40 PM EDT [facility] Final Diagnosis A. Esophagus, Distal, Biopsy: Esophageal squamous mucosa within normal limits. B. Esophagus, Mid, Biopsy: Esophageal squamous mucosa within normal limits. C. Colon, nontargeted Biopsy: Colonic mucosa within normal limits. 05/27/2024 1:40 PM EDT [facility] Clinical Information A. Esophagus, Distal, Rule out eosinophilic esophagitis Dysphagia B. Esophagus, Mid, Rule out eosinophilic esophagitis Dysphagia C. Colon, nontargeted Rule out microscopic colitis Diarrhea 05/27/2024 1:40 PM EDT [facility] Gross Description A. Esophagus, Distal, . [...] labeled C1-C3. pps 05/27/2024 1:40 PM EDT [facility] Result Note Routine 05/27/2024 1:40 PM EDT [facility] Tissue REGION OF ESOPHAGUS / Unknown 05/24/2024 9:57 AM EDT 05/24/2024 12:29 PM EDT Comment:Pre-op diagnosis: EGD hx of barretts, hx of anjel fund, esophageal dypshagia jail- please take biopsies for EoE, ongoing GERD on BID PPI, wants a second opion EGD- last one done by Dr. 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 Sidra Cohen: diarrhea, watery, please take biopsies for microscopic coltiis Carolyn Lopez MD PATHOLOGY/CYTOLOGY O RDRENANBLES [facility] [place] [address] * UPPER GI ENDOSCOPY (05/24/2024 9:43 AM EDT) Pathologist [facility] UPPER GI ENDOSCOPY [facility] Endoscopy Procedure Date: 05/24/2024 9:43 AM ? Patient Name: Mora Bolanos ? N: [id number] ? Date of : 1975 ? Age: 48 ? Order #: [id number] ? Instrument Name: [id number]- [id number] ? Procedure: ? Upper GI endoscopy Indications: ? Dysphagia Patient Profile: ? 48F s/p Analia-en-Y with dysphagia Providers: ? Eamon Mccormack, CHELO, ? Symone Queen, Oriental Rug Stretcher Referring MD: ?Senait Rico [facility]: ? Benzocaine spray, Midazolam 3 mg ? [...] personally performed the entire procedure. ? Carolyn Lopez, MD Carolyn Lopez, 05/24/2024 10:04:17 AM Number of Addenda: 0 Note Initiated On: 05/24/2024 9:43 AM PROVATION 05/24/2024 9:43 AM EDT Senait Rico WATER TAXI OPERATOR GENERAL SURGICAL O RDERABLES PROVATION * COLONOSCOPY (05/24/2024 9:35 AM EDT) COLONOSCOPY [facility] Endoscopy Procedure Date: 05/24/2024 9:35 AM ? Patient Name: Mora Bolanos ? Date of : 1975 ? Age: 48 ? Order #: [id number] ? Instrument Name: [id number]- [id number] ? Procedure: ? Colonoscopy Indications: ? Clinically significant diarrhea of ? unexplained origin Patient Profile: ? 48F with diarrhea Providers: ? Eamon Mccormack, RN, ? Symone Queen, Oriental Rug Stretcher Referring MD: ?Senait Rico [facility]: ? EGD sedation and ? Midazolam 1 [...] preparation was evaluated ? using the BBPS ([place] Bowel ? Preparation Scale) with scores of: [...] ? Carolyn Lopez MD Carolyn Lopez, 05/24/2024 10:24:04 AM Number of Addenda: 0 Note Initiated On: 05/24/2024 9:35 AM PROVATION 05/24/2024 9:35 AM EDT Mike Goodman DNP GENERAL SURGICAL OR DERABLES PROVATION documented in this encounter Visit Diagnoses Not on filedocumented in this encounter Administered Medications Inactive Administered Medications - up to 3 most recent administrations Medication Order MAR Action Action Date Dose Rate Site lactated ringers infusion 100 mL/hr, Intravenous, CONTINUOUS, Starting on Fri05/24/24 at 0930, Until Fri05/24/24 at 1118, Endoscopy (Day of Procedure) New Bag 05/24/2024 9:18 AM EDT 100 mL/hr 100 mL/hr documented in this encounter Active and Recently [...] RN) documented in this encounter Care Teams Hospital Housekeeper Relationship Specialty Start Date End Date Mike Goodman DNP [address] [place] [address] PCP - General Family Medicine 08/22/22 documented as of this encounter
--- OUTSIDE RECORDS SUMMARY | 2024-06-12 13:40 | XMS_ITS | Encounter Summary ---
Author Organization [facility] Address [facility] [place] [address] Care Team Providers Care Cable Engineer Name Role Phone Mike Goodman DNP Primary Care Provider [phone] Encounter Details Date Type Department Care Team (Late st Contact Info) Description 05/04/2024 Telephone [place] [phone] Roxana Webb MD [facility] [place] [address] Social History Tobacco Use Types Packs/Day Years Used Date Smoking Tobacco: Former Cigarettes Q uit: 12/03/2003 Smokeless Tobacco: Never Alcohol Use Standard Drinks/Week Comments No 0 (1 standard drink = 0.6 oz pur e alcohol) [facility] Utilities Answer Date Recorded In the past 12 months has [employer], gas, oil, or water [employer] threatened to shut off services in your [...] in a alf (including now)? No 10/16/2023 [facility] Inpatient Questions Answer Date Recorded Does Anyone [...] encounter Miscellaneous Notes * Telephone Encounter - Kisha Edmonds - 05/04/2024 10:54 AM EDT Needs [address] Webb can either be in person of . documented in this encounter Plan of Treatment Upcoming Encounters Date Type Department Care Team (Late st Contact Info) Description 06/15/2024 3:00 PM EDT Hospital Encounter [place] [phone] [place] [address] 07/09/2024 8:30 AM EDT Appointment XRay at [address] [phone] [place] [address] 07/17/2024 8:00 AM EDT Procedure visit [place] [address] 08/26/2024 8:00 AM EST [place] [address] 08/27/2024 9:00 AM EST Clinical [place] [address] documented as of this encounter Visit Diagnoses Not on filedocumented in this encounter Care Teams Cable Engineer Relationship Specialty Start Date End Date Mike Goodman DNP [address] [place] [id number] PCP - General Family Medicine 08/22/22 documented as of this encounter
--- OUTSIDE RECORDS SUMMARY | 2024-06-12 13:40 | XMS_ITS | Clinical Summary ---
Author Organization [facility] Address [facility] [place] [address] Care Team Providers Care Deicer Tester Name Role Phone Mike Goodman DNP Primary Care Provider Allergies Active Allergy Reactions Criticality Noted Date Comments Bupropion Hcl Other (See Comments) serum sickness Metoclopramide Hcl Other (See Comments) Unknown Onion Anaphylaxis High Medications Medication Sig Dispensed Refills Start Date End Date Status epiNEPHrine 0.15 mg/0.15 mL Cmpk combo pack Inject into the muscle as needed (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 01/11/2011 Active pantoprazole EC (Protonix) [address] tablet Take 1 tablet by mouth daily. 90 tablet 3 08/19/2023 Active Additional Information Patient taking differently:40 mg Oral2 TIMES DAILY, Reported on 10/16/2023 ergocalciferoL, vitamin D2, (vitamin D2) 50,000 unit capsule Take 1 capsule by mouth daily. 30 capsule 1 05/03/2024 Active Active Problems Problem Noted Date Diagnosed Date Iron deficiency anemia due to chronic blood loss 10/16/2023 Paroxysmal SVT (supraventricular tachycardia) Assessment & Plan (10/22/2022 9:10 PM EST): Since she seems to have had ablation worthy SVTs diagnosed years ago will refer to EP team even though most recent monitor result is still pending. She has never taking a beta jade. Will obtain echocardiogram, TSH. Chest pressure 10/22/2022 Assessment & Plan (10/22/2022 4:14 PM EST): Exertional chest pressure in addition to chest pressure with heart racing. She thinks stress tests in the past were negative. Will see whether coronary CTA is covered. Lipid screening 10/22/2022 Assessment & Plan (10/22/2022 4:17 PM EST): Will check lipid panel and Lp(a). S/P partial gastrectomy 11/26/2017 Gastroesophageal reflux 01/14/2011 Overview (06/14/2012): -EGD, 07/18/11: medium hiatal hernia from 38 to 33 cm; LA grade esophagitis; mild gastric erythema; H. pylori negative; normal small bowel biopsies -48 hour wireless pH capsule on daily Protonix, 09/17-01/2011 - normal on day one; evidence of persistent acid reflux on day two (while on daily PPI) -esophageal manometry, 09/17/10: hypotensive LES; normal motility in the body of the esophagus -Upper GI Series, Indra Roy, 08/24/09: question retained food in stomach, otherwise normal. -EGD, [facility], Dr. Julius Zepeda, 03/15/10: small hiatal hernia noted. Distal esophagitis noted, ? Queen? s. Dyspepsia 01/14/2011 Disorder of female genital organ 08/16/2009 Overview (09/03/2017): Overview: ICD10 Update Auto Replacement Endometriosis of other specified sites 9 Nausea 08/09/2009 Overview (09/03/2017): Overview: ICD10 Update Auto Replacement Encounters Date Type Department Care Team Description 06/07/2024 Orders [place] [address] Alena Pizarro APRN Altered bowel function; Lower abdominal pain 06/02/2024 Telephone [place] [address] Michael Sorensen 05/24/2024 9:30 AM EDT - 05/24/2024 10:30 AM EDT [place] [address] Carolyn Lopez MD EGD WITH BIOPSY (WRVU 2.39) 05/24/2024 8:44 AM EDT - 05/24/2024 11:30 AM EDT Hospital En[place] [address] Carolyn Lopez MD Discharge Disposition: Home 05/04/2024 [place] [address] Roxana Webb MD 05/03/2024 4:00 PM EDT TH Visit (TeleHealth) [place] [address] Roxana Webb MD 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; Vitamin D deficient osteomalacia; H/O bariatric surgery 04/28/2024 [place] [address] Tanner Ngo 04/27/2024 5:40 PM EDT Laboratory Appointment Lab [address] [place] [phone] Altered bowel function 04/27/2024 3:00 PM EDT Office [place] [address] Alena Pizarro APRN Altered bowel function; Bloating; Gastroesophageal reflux disease, unspecified whether esophagitis present; Esophageal dysphagia; Nausea without vomiting; Lower abdominal pain; Epigastric pain 04/27/2024 Travel from Last 3 Months Immunizations Name Administration Dates Next Due DTaP 05/17/1982, 6,04/15/1975,1974 ,1974 Measles Vaccine (Attenuvax)LIVE 12/15/1975 Mumps Vaccine (Mumpsvax) LIVE 05/17/1982 Polio Vaccine (Orimune) 05/17/1982,12/15/1975,,1974 Rubella Vaccine (MeruVax II)LIVE 12/15/1975 Family History Medical History Relation Comments Colorectal Cancer Father Prostate Cancer Father Breast Cancer Maternal Aunt 1 Pancreatic Cancer Maternal Aunt 1 Breast Cancer Maternal Aunt 2 Ovarian Cancer Maternal Aunt 2 Pancreatic Cancer Maternal Aunt 2 Colorectal Cancer Maternal Aunt 3 Polyposis syn drome Crohn Disease Maternal Aunt 3 Colorectal Cancer Maternal Aunt 4 Crohn Disease Maternal Aunt 4 Breast Cancer Maternal Cousin 1 Breast Cancer Maternal Cousin 2 Polyposis syn drome Ovarian Cancer Maternal Cousin 3 Breast Cancer Maternal Grandmother Colorectal Cancer Maternal Uncle 1 Esophageal Cancer Maternal Uncle 1 Colorectal Cancer Maternal Uncle 2 Colorectal Cancer Mother Ovarian Cancer Mother Colorectal Cancer Paternal Aunt Breast Cancer Paternal Grandmother Relation Status Comments Brother 1 Brother 2 Alive Father Maternal Aunt 1 Maternal Aunt 2 Maternal Aunt 3 Maternal Aunt 4 Maternal Cousin 1 Alive Maternal Cousin 2 Alive Maternal Cousin 3 Alive Maternal Grandfather Maternal Grandmother Maternal Uncle 1 Maternal Uncle 2 Mother Paternal Aunt Great-aunt (thro ugh PGF) Paternal Grandfather Paternal Grandmother Social History Tobacco Use Types Packs/Day Years Used Date Smoking Tobacco: Former Cigarettes Q uit: 12/03/2003 Smokeless Tobacco: Never Alcohol Use Standard Drinks/Week Comments No 0 (1 standard drink = 0.6 oz pur e alcohol) [facility] Utilities Answer Date Recorded In the past [...] place to sleep or slept in a longterm (including now)? No 10/16/2023 IPV Inpatient Questions [...] on file Sexual Orientation Not on file Last Filed Vital Signs Vital Sign Reading Time Taken Comments Blood Pressure 111/65 05/24/2024 11:00 AM EDT Pulse 71 05/24/2024 10:20 AM EDT Temperature 36.2 ??C (97.2 ??F) 05/24/2024 9:07 AM ED T Respiratory Rate 16 05/24/2024 11:00 AM EDT Oxygen Saturation 99% 05/24/2024 11:00 AM EDT Inhaled Oxygen Concentration - - Weight 69.1 kg (152 lb 4.8 oz) 04/27/2024 2:58 P M EDT Height 154.9 cm (5' 1) 2024 3:06 PM EDT Body Mass Index 28.78 04/27/2024 2:58 PM EDT Plan of Treatment Upcoming Encounters Date Type Department Care Team (Late st Contact Info) Description 06/15/2024 3:00 PM EDT Hospital [place] [address] [place] [address] 07/09/2024 8:30 AM EDT Appointment XRay at [address] [phone] [place] [address] 07/17/2024 8:00 AM EDT Procedure [place] [address] 08/26/2024 8:00 AM EST Office [place] [address] 08/27/2024 9:00 AM EST Clinical Support [place] [address] Health Maintenance Due Date Last Done Comments CT Colonography 1974 FIT DNA 1974 FIT 1974 Sigmoidoscopy 1974 Tetanus/Diphtheria/Pertussis Vaccines (6 - Tdap) 1985 05/17/1982, 12/15/1975, 04/15/1975, Additional history exists HIV screen 1992 Hepatitis C Screening 1992 Hepatitis B vaccine (0-59 yr s) (1) 1993 Breast Cancer Share Decision Needed 2014 HPV test 10/01/2022 10/01/2017 PAP Smear 10/01/2022 10/01/2017 Covid-19 Vaccine (1 - 2022-2 4 season) 2024 Influenza (Flu) vaccine (1 o f 1 - Influenza standard series) 05/16/2024 Zoster vaccine (1 of 2) 2024 Breast Cancer screening 12/20/2024 12/20/2022 Diabetes Screening (HgbA1C o r Glucose) 03/01/2027 03/01/2024, 09/02/2023, 09/02/2023, Additional history exists Colonoscopy 05/24/2034 05/24/2024, 05/24/2024 Colorectal Cancer Screening 05/24/2034 Sigmoidoscopy (10 year) with FIT yearly 05/24/2034 05/24/2024, 05/24/2024 Lipid Screening Discontinued 09/02/2023, 03/2023, 01/02/2021 Procedures Procedure Name Priority Date/Time Associated Diagnosis Comments SURGICAL PATHOLOGY Routine 05/24/2024 9: 57 AM EDT Colonoscopy, Biopsy ([id number]) 05/24/2024 9:46 AM EDT Altered bowel function Bloating Gastroesophageal reflux disease, unspecified whether esophagitis present Esophageal dysphagia Nausea without vomiting Lower abdominal pain Upper Gi Endoscopy, Biopsy ([id number]) 05/24/2024 9:46 AM EDT Altered bowel function Bloating Gastroesophageal reflux disease, unspecified whether esophagitis present Esophageal dysphagia Nausea without vomiting Lower abdominal pain UPPER GI ENDOSCOPY Routine 05/24/2024 9: 43 AM EDT COLONOSCOPY Routine 05/24/2024 9:35 AM EDT TISSUE TRANSGLUTAMINASE, IGA Routine 04/27/2024 4:14 PM EDT Altered bowel function IGG Routine 04/27/2024 4:14 PM EDT Altered bowel function IGA Routine 04/27/2024 4:14 PM EDT Altered bowel function TSH Routine 04/27/2024 4:14 PM EDT Altered bowel function COMPREHENSIVE METABOLIC PANEL Routine 03/01/2024 3:28 PM EDT Vitamin D deficient osteomalacia LIPID PANEL (REFLEX DIRECT LDL) Routine 09/02/2023 4:55 PM EST S/P partial gastrectomy MAMMO DIAGNOSTIC CAD AND DUTCH BILATERAL Routine 12/20/2022 9:28 AM EDT Abnormal finding on breast imaging HPV Routine 10/01/2017 12:00 PM EST WOOD STRIP BLOCK FLOOR INSTALLER CYTOLOGY FINAL REPORT Routine 10/01/2017 12:00 PM EST from Last 3 Months or Most Recently Relevant to Health Maintenance Results * Surgical Pathology (05/24/2024 9:57 AM EDT) Case Report Surgical Pathology Report ? Case: [id number] ? Authorizing Provider: ??Carolyn Lopez MD ?Collected: ? 05/24/2024 0957 ? Ordering Location: ? Gastroenterology at [facility] ?? Received: ?05/24/2024 1229 ? Pathologist: ? Stefani Roberts MD ? Specimens: ?? A) - Esophagus, Distal ? B) - Esophagus, Mid ? C) - Colon, nontargeted ? 05/27/2024 1:40 PM EDT [facility] Final Diagnosis A. Esophagus, Distal, Biopsy: Esophageal squamous mucosa within normal limits. B. Esophagus, Mid, Biopsy: Esophageal squamous mucosa within normal limits. C. Colon, nontargeted Biopsy: Colonic mucosa within normal limits. 05/27/2024 1:40 PM EDT [facility] Clinical Information A. Esophagus, Distal, Rule out eosinophilic esophagitis Dysphagia B. Esophagus, Mid, Rule out eosinophilic esophagitis Dysphagia C. Colon, nontargeted Rule out microscopic colitis Diarrhea 05/27/2024 1:40 PM EDT [facility] Gross Description A. Esophagus, [...] labeled C1-C3. pps 05/27/2024 1:40 PM EDT [facility] Result Note Routine 05/27/2024 1:40 PM EDT [facility] Tissue REGION OF ESOPHAGUS / Unknown 05/24/2024 9:57 AM EDT 05/24/2024 12:29 PM EDT Comment:Pre-op diagnosis: EGD hx of barretts, hx of anjel fund, esophageal dypshagia assisted- please take biopsies for EoE, ongoing GERD on BID PPI, wants a second opion EGD- last one done by Dr. 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 Sidra Cohen: diarrhea, watery, please take biopsies for microscopic coltiis Tissue specimen (specimen) COLON STRUCTURE / Unknown 05/24/2024 10:15 AM EDT 05/24/2024 12:29 PM EDT Comment:Pre-op diagnosis: EGD hx of barretts, hx of anjel fund, esophageal dypshagia machine long goods helper- please take biopsies for EoE, ongoing GERD on BID PPI, wants a second opion EGD- last one done by Dr. Sidra Cohen: diarrhea, watery, please take biopsies for microscopic coltiis Carolyn Lopez MD PATHOLOGY/[place] [address] * UPPER GI ENDOSCOPY (05/24/2024 9:43 AM EDT) UPPER GI ENDOSCOPY [facility] Endoscopy Procedure Date: 05/24/2024 9:43 AM ? Patient Name: Mora Bolanos ? Date of : 1975 ? Age: 48 ? Order #: [id number] ? Instrument Name: [id number] ? Procedure: ? Upper GI endoscopy Indications: ? Dysphagia Patient Profile: ? 48F s/p Analia-en-Y with dysphagia Providers: ? Eamon Mccormack RN, ? Symone Queen, Carton Counter Feeder Referring MD: ?Senait Rico Medicines: ? Benzocaine [...] [facility]ATION 05/24/2024 9:43 AM EDT Senait Rico TECHNICAL PROJECT COORDINATOR GENERAL SURGICAL O RDERABLES [facility] * COLONOSCOPY (05/24/2024 9:35 AM EDT) COLONOSCOPY [facility] Endoscopy Procedure Date: 05/24/2024 9:35 AM ? Patient Name: Mora Bolanos ? Date of : 1975 ? Age: 48 ? Order #: [id number] ? Instrument Name: [id number] ? Procedure: ? Colonoscopy Indications: ? Clinically significant diarrhea of ? unexplained origin Patient Profile: ? 48F with diarrhea Providers: ? Eamon Mccormack, CHELO, ? Symone Queen, Carton Counter Feeder Referring MD: ?Senait E. Sanborn Medicines: ? EGD sedation and ? Midazolam 1 [...] preparation was evaluated ? using the BBPS ([place] Bowel ? Preparation Scale) with scores of: [...] Mike Goodman DNP GENERAL SURGICAL OR DERABLES Performing Organization Address City/State/[facility] de Phone Number [facility]ATION * Tissue Transglutaminase, IgA (04/27/2024 4:14 PM EDT) TTG IgA Ab <0.4 <=10.0 U/mL 04/28/2024 3:02 PM EDT [facility] Blood VENOUS BLOOD SPECIMEN / Unknown Venipuncture / Unknown 04/27/2024 4:14 PM EDT 04/27/2024 4:15 PM EDT Narrative [facility] - 04/28/2024 3:02 PM EDT <7 U/mL: Negative 7-10 U/mL: Indeterminate >10 U/mL: Positive Alena Pizarro APRN IMMUNOLOGY ORDERAB LES Performing Organization Address [facility] de Phone Number [facility] [place] [address] * TSH (04/27/2024 4:14 PM EDT) Thyroid Stimulating Hormone 1.26 0.27 - 4.20 mcIU/mL 04/27/2024 5:23 PM EDT [facility] Comment: Reference Interval (mcIU/mL): ?? Females: ? First Trimester: 0.23-3.88 ? Second Trimester: 0.22-3.90 ? Third Trimester: 0.44-4.66 Blood VENOUS BLOOD SPECIMEN / Unknown Venipuncture / Unknown 04/27/2024 4:14 PM EDT 04/27/2024 4:15 PM EDT Alena Pizarro APRN CHEMISTRY ORDERABL ES Performing Organization Address [facility] de Phone Number [facility] [place] [address] * IgA (04/27/2024 4:14 PM EDT) IgA 215 70 - 400 mg/dL 04/27/2024 5:18 PM EDT [facility] Blood VENOUS BLOOD SPECIMEN / Unknown Venipuncture / Unknown 04/27/2024 4:14 PM EDT 04/27/2024 4:15 PM EDT Alena Baron Juarez CARMENN CHEMISTRY ORDERABL ES Performing Organization Address City/[facility]/ZIP Co de Phone Number [facility] [place] [address] * IgG (04/27/2024 4:14 PM EDT) IgG 842 700 - 1,600 mg/dL 04/27/2024 5:18 PM EDT [facility] Blood VENOUS BLOOD SPECIMEN / Unknown Venipuncture / Unknown 04/27/2024 4:14 PM EDT 04/27/2024 4:15 PM EDT Alena Pizarro APRN CHEMISTRY ORDERABL ES Performing Organization Address [facility]/ZIP Co de Phone Number [facility] [place] [address] * (ABNORMAL) Comprehensive metabolic panel (non-fasting) (03/01/2024 3:28 PM EDT) Glucose 91 65 - 199 mg/dL [facility] Comment:Diabetes: >=200 mg/d L plus symptoms Blood Urea Nitrogen 6(L) 8 - 18 mg/dL [facility] Creatinine 0.78 0.70 - 1.20 mg/dL [facility] Sodium 143 135 - 145 mmol/L [facility] Potassium 4.2 3.5 - 5.0 mmol/L [facility] Comment: Please note: ??Patients with WBC >100,000 may have falsely elevated Potassium levels. ??For accurate Potassium quantification in these patients send serum separator tube (gold top) for subsequent determinations. ??Contact the Clinical Chemistry Laboratory if there are any questions. Chloride 104 98 - 107 mmol/L [facility] Carbon Dioxide 28 22 - 31 mmol/L [facility] Anion Gap 11 5 - 15 mmol/L [facility] Calcium 9.3 8.5 - 10.5 mg/dL [facility] Protein, Total 6.6 6.1 - 8.0 g/dL [facility] Albumin 4.1 3.2 - 5.2 g/dL [facility] Aspartate Aminotransferase 25 0 - 30 unit/L [facility] Alanine Aminotransferase 23 0 - 30 unit/L [facility] Alkaline Phosphatase 111(H) 35 - 105 unit/L [facility] Bilirubin, Total 0.3 0.2 - 1.3 mg/dL [facility] Est Glomerular Filtration Rate 93 >=60 mL/min/1. 73 m?? [facility] Comment: This patient's estimated [...] In Lab Piotr Carolina MD CHEMISTRY ORDERABLES [facility] [place] [address] * Lipid Panel (Reflex Direct LDL) (09/02/2023 4:55 PM EST) Cholesterol, Total 202 mg/dL [facility] Comment: Lower Risk: <200 mg/dL Average Risk: 200-239 mg/dL Higher Risk: >rq=786 mg/dL Triglyceride 70 mg/dL [facility] Comment: Average Risk/Lower Risk: <150 mg/dL Borderline High Risk: 150-199 mg/dL High Risk: 200-499 mg/dL Very High Risk: >su=570 mg/dL HDL Cholesterol 73 mg/dL [facility] Comment: Males: ?? Higher Risk: <40 mg/dL Females: ?? Higher Risk: <50 mg/dL LDL Cholesterol 115 mg/dL [facility] Comment: Lowest Risk: <100 mg/dL Lower Risk: 100-129 mg/dL Borderline High Risk: 130-159 mg/dL High Risk: 160-189 mg/dL Very High Risk: >zj=854 mg/dL Cholesterol/HDL Ratio 2.8 ratio [facility] Lipid Interpretation See Note [facility] Comment: Lipid management should be guided by a patient? s ASCVD risk, goals and preferences. ACC/AHA Guidelines recommend high intensity statin if clinical ASCVD or LDL greater than or equal to 190 mg/dL. http://[employer]/OXO-UAN-Tnbclwino Adults aged 40-75 with LDL 70-189 mg/dL should have their 10 year ASCVD risk estimated with the ACC/AHA ASCVD risk offset platemaker http://tools.acc.org/UFNFX-Bbja-Xbtmyqtqu/ Statin should be discussed if risk greater than or equal to 7.5% in non-diabetics. With diabetes, moderate intensity statin is recommended if risk less than 7.5%, high intensity if risk greater than or equal to 7.5%. Annual lipid monitoring on statins is not necessary. Evaluate secondary causes of Triglycerides greater than 500 mg/dL or LDL greater than 190 mg/dL: See table 6 of ACC/AHA Guideline. Lifestyle modification is a critical component of ASCVD risk reduction. Blood 09/02/2023 4:55 PM EST 09/02/2023 5:02 PM EST Narrative Resulting Agency Comment Spec In Lab Sheridan Cassidy MD CHEMISTRY ORDERABLES [facility] [place] [address] * Mammo Diagnostic CAD and Dutch Bilateral (12/20/2022 9:28 AM EDT) Anatomical Region Laterality Modality Breast Bilateral Mammography Impressions 12/20/2022 11:08 AM EDT No mammographic evidence of malignancy in either breast. Recommend routine annual screening. Thank you for letting us participate in the care of this patient. ??If you are a health care provider and have any questions regarding this report, please contact the number below. ??For patients who have questions please contact the health hospice care sales consultant that requested your imaging first. ? Narrative 12/20/2022 11:08 AM EDT BILATERAL BREAST DIAGNOSTIC MAMMOGRAPHY AND BILATERAL DIAGNOSTIC ULTRASOUND CLINICAL HISTORY: Patient with 3 palpable areas in the right upper and upper inner breast and a small right breast mass seen on recent screening mammogram. Also with questioned mammographic focal asymmetry in the left upper outer quadrant. ??Additional evaluation. TECHNIQUE AND VIEWS OBTAINED: CC and MLO views were obtained of BOTH breasts. 2D and 3D tomosynthesis images were obtained. Computer aided detection was used. Ultrasound was performed of the right upper and upper inner quadrant and left upper outer quadrant. COMPARISON: Prior images BREAST DENSITY: There are scattered areas of fibroglandular density. FINDINGS: RIGHT BREAST MAMMOGRAM: There is a circumscribed, equal and low density 4 to 5 mm mass in the lower inner breast about 2 cm from the nipple. No other mass, suspicious calcifications or unexplained architectural distortion is seen, specifically in the areas of palpable concern identified with BB markers. RIGHT BREAST ULTRASOUND: A simple cyst measuring about 4 x 3 mm at 3:00, 3 cm from the nipple corresponds to the mammographic mass. No abnormalities identified in all of the areas of palpable concern which the patient pointed out. LEFT BREAST MAMMOGRAM: The area of focal asymmetry in the upper outer quadrant persists but does not show discrete margins. There are no associated calcifications or architectural distortion. No other abnormalities seen. LEFT BREAST ULTRASOUND: Sonographic evaluation shows a prominent island of glandular tissue corresponding to the focal asymmetry. No discrete cystic or solid mass is seen. DIAGNOSTIC SUMMARY: Small simple cyst in the right breast corresponding to mammographic mass. No other abnormalities seen in either breast.. Maria Alejandra Aparicio MD IMG MAMMO ORD ERABLES * HPV (10/01/2017 12:00 PM EST) HPV16 NEGATIVE NEGATIVE [facility] HPV 18 NEGATIVE NEGATIVE [facility] HPV Other HR NEGATIVE NEGATIVE [facility] HPV Interpretation See Comment [facility] Comment: NEGATIVE for high-risk HPV *. * Testing negative for high risk HPV means that the specimen is negative for the following 14 types tested: ??types 16, 18, 31, 33, 35, 39, 45, 51, 52, 56, 58, 59, 66, and 68. ??The test is not intended to detect low risk HPV types. Jules Isabella HPV test Specimen: HPV Testing - Cytology Liquid Based Prep Cervical swab (specimen) 10/01/2017 12:00 PM EST 10/02/2017 9:15 PM EST Narrative Resulting Agency Comment Spec In Lab / WKS Laura Ross APRN PATHOLOGY/CYTOLOGY O RDERABLES [facility] [place] [address] * Construction And Maintenance Inspector Cytology Final Report (10/01/2017 12:00 PM EST) Construction And Maintenance Inspector Cytology Final Report [id number] ? Location: [facility] The signing pathologist has (i) examined the relevant preparation(s) for the specimen(s) and (ii) rendered or confirmed the diagnosis(es). . ? Construction And Maintenance Inspector Final DIAGNOSIS Normal Negative for Intraepithelial Lesion or Malignancy (NILM). For consensus guidelines for the management of cervical cancer screening test results, please see: ?? http://www.asccp.o rg . Electronically signed by: ??Cari CARRIZALES(ASCP)Siobhanca Andre Verified: ??10/14/2017 ?Sales Professional Bilingual Performed at: ??-[facility] Dept. of Pathology, [place], [place] HPV RESULTS HPV16 (Result) ?Negative HPV18 (Result) ?Negative HPVOHR (Result) ? Negative HPV (Interpretation) ?See Below HPV (Interpretation) Text: NEGATIVE for high-risk HPV *. *Testing negative for high risk HPV means that the specimen is negative for the following 14 types tested: types 16, 18, 31, 33, 35, 39, 45, 51, 52, 56, 58, 59, 66, and 68. The test is not intended to detect low risk HPV types. Jules isabella HPV test Specimen: HPV Testing - Cytology Liquid Based Prep The Jules isabella ? HPV test was validated, performed and results reported through the [facility] ([facility]) at [facility]. ? - Tomasz Whitehead, PhD, [facility], Director-[facility] STATEMENT OF ADEQUACY Specimen submitted is satisfactory. Vaginal Only. CLINICAL INFORMATION HPV Option: ? Concurrent HPV Preparation: ?Liquid Based Pap Specimen Source: ?Vaginal Only/LBP LMP: ?Hyst Hormones?: ?No Hysterectomy?: ?Yes ?: ?No ?: ?No I.U.D.?: ?No Pelvic Radiation: ? No Prior WOOD STRIP BLOCK FLOOR INSTALLER Therapy?: ? No Hist Abnl Pap/Biopsy?: ??Yes Hist of HPV Vaccine?: ?? No Hist of Smoking?: ? No Hist of SANDRA exposure?: ??No Clinical Data, Significant Therapy and Clinical Impression ?? : ?? _ Referring Identifier: ?(not provided) . CLINICAL INFORMATION This Pap Test has been evaluated with the assistance of the Phon[employer] Pap Test Imaging System. Note: The Pap test is a screening test for cervical cancer with an inherent false-negative rate dependent upon several variables. For further information please contact the [facility]. Reference: Rosemary YE. Monkey Breeder of Pap Smear Results. In: Dane BS, Jeferson HH, ed. ??The Pap Smear. [place]: Rolando, 2002: 71-77. [facility] 10/01/2017 12:0 0 PM EST Narrative Resulting Agency Comment Spec In Lab / WKS Laura Ross APRN PATHOLOGY/CYTOLOGY O RDERABLES [facility] [place] [address] from Last 3 Months or Most Recently Relevant to Health Maintenance Advance Directives * Attempt Cardiopulmonary Resuscitation - Inpatient (Latest Code Status on File) Date Activated Date Inactivated Comments 07/16/2023 6:30 AM 07/16/2023 3:17 PM Question Answer Comments Code Status decision made by: Patient * Full Code Date Activated Date Inactivated Comments 11/26/2017 8:37 PM 11/29/2017 8:47 PM Question Answer Comments Does patient have capacity to make decision: Yes * Full Code Date Activated Date Inactivated Comments 11/25/2012 8:38 PM 11/27/2012 4:57 PM Question Answer Comments Order Status: Initial Order Does patient have decision m aking capacity? Yes, Order is based on Patients wishes. * Full Code Date Activated Date Inactivated Comments 11/25/2012 3:49 PM 11/25/2012 8:38 PM Question Answer Comments Order Status: Initial Order Does patient have decision m aking capacity? Yes, Order is based on Patients wishes. Care Teams Deicer Tester Relationship Specialty Start Date End Date Mike Goodman DNP [address] [place] [id number] PCP - General Family Medicine 08/22/22
--- OUTSIDE RECORDS SUMMARY | 2024-06-12 13:40 | XMS_ITS | Encounter Summary ---
Author Organization [facility] Address [facility] [place] [address] Care Team Providers Care Gang Head Saw Operator Name Role Phone Mike Goodman DNP Primary Care Provider [phone]- [phone] Encounter Details Date Type Department Care Team (Latest Contact Info) Description 03/01/2024 Travel Social History Tobacco Use Types Packs/Day Years Used Date Smoking Tobacco: Former Cigarettes Q uit: 12/03/2003 Smokeless Tobacco: Never Alcohol Use Standard Drinks/Week Comments No 0 (1 standard drink = 0.6 oz pur e alcohol) [facility] Utilities Answer Date Recorded In the [...] PM EDT Hospital Encounter [place] [address] Alena Pizarro OCULAR [place] [address] 07/09/2024 8:30 AM EDT Appointment XRay at [address] [phone] Alena Pizarro [employer] [place] [address] 07/17/2024 8:00 AM EDT Procedure visit [place] [address] 08/26/2024 8:00 AM EST Office Visit [place] [address] 08/27/2024 9:00 AM EST Clinical Support Gastroenterology at [place] [phone] documented as of this encounter Visit Diagnoses Not on filedocumented in this encounter Care Teams Gang Head Saw Operator Relationship Specialty Start Date End Date Mike Goodman DNP [address] [place] [address] PCP - General Family Medicine 08/22/22 documented as of this encounter
--- OUTSIDE RECORDS SUMMARY | 2024-06-12 13:40 | XMS_ITS | Encounter Summary ---
Author Organization [facility] [place] [address] Care Team Providers Care Accelerator Technician Name Role Phone Mike Goodman DNP Primary Care Provider [phone]- [phone] Encounter Details Date Type Department Care Team (Latest Contact Info) Description 04/27/2024 5:40 PM EDT Laboratory Appointment Lab [address] [place] [phone] Altered bowel function Social History Tobacco Use Types Packs/Day Years Used Date Smoking Tobacco: Former Cigarettes Q uit: 12/03/2003 Smokeless Tobacco: Never Alcohol Use Standard Drinks/Week Comments No 0 (1 standard drink = 0.6 oz pur e alcohol) [facility] Utilities Answer Date Recorded In the past 12 months has e electric, gas, oil, or water [facility] [place] threatened to shut off services in your [...] place to sleep or slept in a halfway (including now)? No 10/16/2023 IPV Inpatient Questions [...] PM EDT Hospital [place] [address] [place] [address] 07/09/2024 8:30 AM EDT Appointment XRay at [address] [phone] [place] [address] 07/17/2024 8:00 AM EDT Procedure [place] [phone] 08/26/2024 8:00 AM EST Office [place] [address] 08/27/2024 9:00 AM EST Clinical [place] [address] documented as of this encounter Procedures Procedure Name Priority Date/Time Associated Diagnosis Comments TISSUE TRANSGLUTAMINASE, IGA Routine 04/27/2024 4:14 PM EDT Altered bowel function TSH Routine 04/27/2024 4:14 PM EDT Altered bowel function IGA Routine 04/27/2024 4:14 PM EDT Altered bowel function IGG Routine 04/27/2024 4:14 PM EDT Altered bowel function documented in this encounter Results * Tissue Transglutaminase, IgA (04/27/2024 4:14 PM EDT) TTG IgA Ab <0.4 <=10.0 U/mL 04/28/2024 3:02 PM EDT [facility] Blood VENOUS BLOOD SPECIMEN / Unknown Venipuncture / Unknown 04/27/2024 4:14 PM EDT 04/27/2024 4:15 PM EDT Narrative [facility] - 04/28/2024 3:02 PM EDT <7 U/mL: Negative 7-10 U/mL: Indeterminate >10 U/mL: Positive Alena Pizarro STOCK CUTTER IMMUNOLOGY ORDERAB LES [facility] [place] [address] * IgG (04/27/2024 4:14 PM EDT) IgG 842 700 - 1,600 mg/dL 04/27/2024 5:18 PM EDT [facility] Blood VENOUS BLOOD SPECIMEN / Unknown Venipuncture / Unknown 04/27/2024 4:14 PM EDT 04/27/2024 4:15 PM EDT Alena Tod Juarez CARMENN CHEMISTRY ORDERABL ES Performing Organization Address [facility] Co de Phone Number [facility] [place] [address] * IgA (04/27/2024 4:14 PM EDT) IgA 215 70 - 400 mg/dL 04/27/2024 5:18 PM EDT [facility] Blood VENOUS BLOOD SPECIMEN / Unknown Venipuncture / Unknown 04/27/2024 4:14 PM EDT 04/27/2024 4:15 PM EDT Alena Tod Juarez CARMENN CHEMISTRY ORDERABL ES Performing Organization Address [facility] Co de Phone Number [facility] [place] [address] * TSH (04/27/2024 4:14 PM EDT) Thyroid Stimulating Hormone 1.26 0.27 - 4.20 mcIU/mL 04/27/2024 5:23 PM EDT [facility] Comment: Reference Interval (mcIU/mL): ?? Females: ? First Trimester: 0.23-3.88 ? Second Trimester: 0.22-3.90 ? Third Trimester: 0.44-4.66 Blood VENOUS BLOOD SPECIMEN / Unknown Venipuncture / Unknown 04/27/2024 4:14 PM EDT 04/27/2024 4:15 PM EDT Alena Pizarro APRN CHEMISTRY ORDERABL ES Performing Organization Address [facility] Co de Phone Number [facility] [place] [address] documented in this encounter Visit Diagnoses Diagnosis Altered bowel function Other symptoms involving digestive system documented in this encounter Care Teams Accelerator Technician Relationship Specialty Start Date End Date Mike Goodman DNP [address] [place] [address] PCP - General Family Medicine 08/22/22 documented as of this encounter
--- OUTSIDE RECORDS SUMMARY | 2024-06-12 13:40 | XMS_ITS | Encounter Summary ---
[place] [address] Care Team Providers Care Music Publisher Name Role Phone Mike Goodman KYLE Primary Care Provider Reason for Referral * Diagnostic Test (Routine) - Pending Review Specialty Diagnoses / Procedures Referred By Martha broussard Referred To Contact Gastroenterology Diagnoses Bloating HBT - lactulose - bloating Procedures Breath Hydrogen [place] [address] [place] [address] Referral ID Status Reason Start Date Expiration Date Visits Requested Visits Authorized [id number] Pending Review Consult, Test & Treat 04/27/2024 04/27/2025 1 1 * Diagnostic Test (Routine) - Pending Review Specialty Diagnoses / Procedures Referred By Martha broussard Referred To Contact Gastroenterology Diagnoses Gastroesophageal reflux disease, unspecified whether esophagitis present Esophageal dysphagia pH impedance ON PPI - regurgitation Procedures pH Impedance - 24 [place] [address] [facility] [address] [place] [address] Referral ID Status Reason Start Date Expiration Date Visits Requested Visits Authorized [id number] Pending Review Consult, Test & Treat 04/27/2024 04/27/2025 1 1 * Diagnostic Test (Routine) - Pending Review Specialty Diagnoses / Procedures Referred By Martha broussard Referred To Contact Gastroenterology Diagnoses Gastroesophageal reflux disease, unspecified whether esophagitis present Esophageal dysphagia HREM - dysphagia Procedures High Resolution Esophageal [place] [address] [place] [address] Referral ID Status Reason Start Date Expiration Date Visits Requested Visits Authorized [id number] Pending Review Test Only 04/27/2024 04/27/2025 1 1 Reason for Visit * Consultation (Routine) - Closed Specialty Diagnoses / Procedures Referred By Martha broussard Referred To Contact Gastroenterology Diagnoses Chronic abdominal pain Senait Rico [facility] [place] [address] [facility] [address] [place] [phone] Referral ID Status Reason Start Date Expiration Date V isits Requested Visits Authorized [id number] Closed Consult, Test & Treat 02/11/2024 02/10/2025 1 1 Encounter Details Date Type Department Care Team (Late st Contact Info) Description 04/27/2024 3:00 PM EDT Office Visit [place] [address] [place] [address] Altered bowel function; Bloating; Gastroesophageal reflux disease, unspecified whether esophagitis present; Esophageal dysphagia; Nausea without vomiting; Lower abdominal pain; Epigastric pain Social History Tobacco Use Types Packs/Day Years Used Date Smoking Tobacco: Former Cigarettes Q uit: 12/03/2003 Smokeless Tobacco: Never Alcohol Use Standard Drinks/Week Comments No 0 (1 standard drink = 0.6 oz pur e alcohol) [facility] Utilities Answer Date Recorded In the past 12 months has th e electric, gas, oil, or water [employer] threatened to shut off services in your [...] place to sleep or slept in a prison (including now)? No 10/16/2023 [facility] IPV Inpatient [...] Sign Reading Time Taken Comments Blood Pressure 127/63 04/27/2024 2:58 PM EDT Pulse - - Temperature - - Respiratory Rate - - Oxygen Saturation - - Inhaled Oxygen Concentration - - Weight 69.1 kg (152 lb 4.8 oz) 04/27/2024 2:58 P M EDT Height 154.9 cm (5' 1) 04/27/2024 2:58 PM EDT Body Mass Index 28.78 04/27/2024 2:58 PM EDT documented in this encounter Patient Instructions * Patient Instructions* Alena Pizarro, LOUIE - 04/27/2024 3:00 PM EDT Please call the GI department to schedule the investigations if you do not hear from us within 1 week: Clinic [phone] [facility] scheduling [phone] Endoscopy scheduling- [phone] Ms. Bolanos, It was a pleasure to meet you. Plan is as follows: Diagnostics: Endoscopy with biopsies for EOE Colonoscopy with biopsies for microscopic colitis and endometriosis Stool studies -C.difficile, crypto/Giardia, fecal elastase, and stool culture CT-E Esophageal high resolution manometry 24 hour esophageal pH/Impedance testing on PPI therapy Upper GI series with small bowel follow through Hydrogen breath test Labs: TSH and celiac panel Consider double contrast barium esophagram Consider anorectal manometry Therapeutics: Functional bowel handout Begin Metamucil or psyllium husk fiber (make sure it is free of artificial sweetener): 1tsp daily for one week, then 2tsp daily for one week, then 3tsp (1TBSP) daily. May increase slowly up to 2 TBSPdaily. Titrate according to what works best for you.This may cause bloating initially but this willimprove with continued use. If this supplement causes too much bloating you may try Citrucel. Follow-up with [employer] regarding bloating, abdominal pain, and altered bowel pattern similar to endometriosis flare. Patient was instructed to go to the ED with any worsening of abdominal pain or changing of abdominal pain and other symptoms. We will f/u 3 weeks after testing. Thanks! LOUIE Guillen Functional Bowel Disorders: Information Handout for Patients and Primary Care Providers [facility] What are functional bowel disorders? These are the most common type of gastrointestinal disorders in the [place] The most common functional bowel disorder in the [place] is irritable bowel syndrome (IBS) Irritable bowel syndrome affects the lower GI tract and can cause bloating, abdominal pain, diarrhea, and constipation Functional dyspepsia (FD) affects the upper GI tract and can cause bloating, burping, heartburn, nausea, fullness and stomach discomfort In functional disorders the gut is structurally/anatomically normal but is not functioning properlydue to abnormalities in the enteric (gut) nervous system Two mechanisms - heightened sensitivity of the gut to normal sensations (sensory nerves) and abnormal gut motility (motor nerves) These disorders are caused by a combination of a genetic factors, changes to the gut microbiota (intestinal bacteria) and environmental triggers How common are these disorders and what is the impact? 15-20% of general [place] population has IBS or FD or both 2nd most common cause for lost work days (after common cold) in [place] Estimated $30 billion dollar cost to [place] economy per year These disorders can have a significant impact on quality of life How is the diagnosis made? The diagnosis of a functional disorder is NOT a ???diagnosis of exclusion?? (common misconception) Investigations may be necessary to look for other disorders (such as celiac disease) if the diagnosis is unclear Work-up may include history (description of symptoms), physical exam, bloodwork, stool studies, diagnostic imaging and endoscopy What is the prognosis? Functional bowel disorders are unfortunately chronic disorders and often have a major impact on patient quality of life, function, and relationships Symptoms may gradually resolve is a small proportion of patients (highest rate in patients with immediate onset of symptoms after infection); joint terminal attack controller symptoms are expected in most patients however Intermittent exacerbations (i.e. ???flares?? ) are common and may be caused by stress, infections, antibiotic exposure, and lack of adherence to treatment plans When should a patient be re-evaluated? Patients with stable symptoms do NOT need episodic re-evaluation Subtle changes in symptoms and symptom flares are common Patients should be re-evaluated if they have progression or dramatic changes in symptoms, severe abdominal pain, swallowing difficulties, unexplained weight loss, anemia (low blood counts), or bleeding If you have concerns be sure to talk to your doctor What are the goals of therapy? Ultimately we hope that you to able to achieve prolonged periods of stability with minimal daily symptoms and have a decrease in the frequency/severity of ???flares?? However, we believe the most important goal is to help you improve your overall quality of life. For most patients this means doing the things that are important in your life despite having symptoms. This is generally achieved by helping you develop coping skills and helping you achieve a greater understanding of your disorder. Remember, generally complete resolution of symptoms is NOT a realistic goal. How do I use this information? Talk to you primary care provider and/or local major league baseball umpire and share this document. Treatment of functional disorders is a team effort! Set realistic goals! Remember it is unlikely that any one measure will completely eliminate all symptoms ???Start low and go slow?? with all measures to avoid potential side effects Do ONE measure at a time - add measures as needed in a ???step-solomon fashion?? - this will help determine if a particular measure is helpful or not Stay on any measure continuously for at least 4-6 weeks prior to assessing whether or not it is helping (improvements are often slow to occur) After an adequate trial ask yourself if the benefit is worth continuing the treatment Remember there are a limited number of treatment options available. We want to be absolutely sure that a measure is not effective or intolerable before stopping it and considering other options Often patients will need several ???layers?? or ???steps?? of therapy - finding the right combination for you takes time and patience We specifically recommend all patients to do ALL lifestyle and dietary measures AND try using Metamucil (or other psyllium fiber supplement) and probiotics together - this approach benefits most patients OTC (elgp-rri-jltlggl) medications can be used for ongoing bothersome symptoms as listed below Your provider (PCP or local Gastroenterology provider or [facility] provider) may decide to use prescription medications if you have ongoing symptoms despite strict adherence to lifestyle and dietary measures and OTC medications Your provider will give you advice on treatments but it is your responsibility to work on these measures to improve your symptoms. Lack of adherence to recommendations is one of the most common causefor ongoing symptoms. If symptoms are controlled try easing back or stepping down on measures - remember the main goal isto improve quality of life (not necessarily eliminate symptoms). Non-Pharmacologic General Treatments Lifestyle measures Many lifestyle factors can worsen IBS symptoms However, IBS is not caused by these factors (common misconception) These lifestyle factors include the following: Inadequate sleep Weight gain Inadequate exercise Stress Depression/anxiety - this should be brought up to your Primary Care Provider (if left untreated it is unlikely the functional bowel disorder will improve) Dietary measures Trigger food avoidance - you should re-introduce foods once symptoms settle as overly restrictive diet can be unhealthy and even harmful Fatty foods, spicy foods, alcohol, and caffeine can worsen symptoms Consider a 2 week dairy-free trial for possible lactose-intolerance Your PCP or GI provider can refer you to a dietitian to discuss specialized diets. The overall dietary goal is to allow you to have a well-balanced and nutritious diet Fiber and Fluid Adequate fiber and fluid intake is essential for optimal functioning of the human digestive tract Aim for a fluid intake goal of 8-10 glasses of water a day (caffeine and alcohol count as minus onein calculation) Aim for a fiber intake goal of 30 grams per day - some patients may require more or less Increase fiber by 5 grams per week (remember ???start low and go slow?? ) Fiber can be from multiple dietary sources but supplemental is often helpful Fiber intake should include psyllium fiber; this is the type of fiber used in research studies for treatment of functional disorders Sources of psyllium include All-Bran psyllium buds, Metamucil, Konsyl, bulk psyllium ([employer] food stores and bulk stores) Specifically we recommend starting Metamucil or Konsyl at a low dosage - start at one teaspoon a day for one week then gradually increase by one teaspoon per week until no further benefit is achieved. Some patients may get bloating when they start a fiber supplement. This generally goes away after 1-2 weeks of daily therapy. Try backing off to a lower dose or trying an alternate version (such as sweetener-free Metamucil) If persistent issues try Citrucel (methylcellulose) as an alternate fiber supplement Probiotics Measures aimed at improving the microbiome such as probiotics are a promising area but convincing medical evidence is still lacking Pwsk-ang-fasczic supplements including probiotics are not typically evaluated by FDA. The quality and even safety is often unclear and many products (despite being very expensive) actually do not contain any active ingredients at all! Live-culture yogurts, kombucha, sauerkraut and other dietary sources may help improve your microbiome Navya, TuLincoln, and Vissushmame are the three probiotics that are supported by medical research to have benefit for IBS Florastor has been shown to decrease antibiotic-associated diarrhea and post- infectious diarrhea BioK Plus has been shown to decrease antibiotic-associated diarrhea and antibiotic-related infections Hrhc-fqx-Upyknnz Medications for Functional Gut Disorders Based on Symptoms Diarrhea Loperamide (Imodium) should be considered first for mild and intermittent symptoms - start with small doses and take several hours before needed (or even before bed) (it is generally considered safe for long-term use) Constipation Patients with mild constipation can use laxatives ???as needed?? (in other words, if you feel constipated or haven't had a regular bowel movement). However, patients with more severe constipation generally need laxatives on a regular schedule (every day or every second day for example). This is called ???maintenance therapy?? . PEG 3350 (Miralax) is a stool softener that is safe for joint terminal attack controller usage (no risk of dependency) andthe dosage can be adjusted to achieve 1-2 soft bowel movements per day; you can take a capful (17g)twice daily if needed Milk of magnesia and lactulose are alternate stool softeners that are generally safe for regular use in most patients (you should ask your provider first). Bisacodyl (Dulcolax) and senna (Senokot) are stimulant laxatives for occasional use only as they may lead to dependency with regular long-term use. Enemas and bowel preparations (e.g. Colyte or Golytely) can be used to treat severe stool impaction---- this is called ???rescue therapy?? . Drink 2 litres in 4 hours in the evening then take another 2 litres over 4 hours the next morning. Another option is to mix up 14 capfuls of Miralax with 64 oz of Gatorade. After rescue therapy immediately begin aggressive ???maintenance therapy?? with the therapies above. Bloating/Pain Ensure constipation adequately treated - impacted stool can create a partial obstruction and contribute to pain Peppermint oil may also be useful; a capsule form exists as well (IBgard) Simethicone (Gas-X) can be helpful for occasional usage for ???gas spasms?? Acetominophen (Tylenol) is safest analgesic (pain killer) on the gut NSAIDs (e.g. ibuprofen) can cause gut irritation/inflammation - it's best to avoid or use in low doses only Medical cannabis has been used to treat various chronic pain disorders; it has been reported to benefit some patients with pain but has not be rigorously studied and may actually worsen symptoms in some patients with functional disorders. At this point we generally do NOT recommend using medical cannabis to treat functional disorders AVOID narcotics/opioids as they typically make symptoms much worse and there is a risk of addictionand/or dependence Exercise, hot-water bottle/heating pad, warm bath/shower, and warm beverages are also good treatments for painful bloating episodes Heartburn/Nausea/Vomiting/Dyspepsia Acid reducing medications such as proton-pump inhibitors (PPIs) and H2 blockers may be helpful especially if you have gastroesophageal reflux disease (GERD) Often a combination of anti-nausea medications (xfbp-hlv-yeikdzp or prescription) works better thanhigh doses of only one medication A herbal product called STW5 (Iberogast) is supported by some studies to help dyspepsia but data onlong-term effectiveness and safety is limited L-carnitine and coenzyme Q10 supplements have been reported to be beneficial to some patients with chronic nausea and vomiting If using cannabis (recreational or medical) consider stopping for at least two weeks (ideally a full month). While cannabis has been reported to help some patients with nausea it may actually be contributing to symptoms. Disclaimer This information is intended for education purposes only It is not meant to replace direct patient-provider care All medications should be used under the supervision of a Gastroenterology provider or Primary CareProvider Authors are not liable for misuse/misinterpretation of this information Patient Resources [place] [employer] https://www.gastro.org/practice-guidance/hk-jobkzyy-deuqhq/ topic/rhhegmaqh-ylhhz-bhqadbea-ibs Badgut.org https://badgut.org/information-centre/l-l-ouvyzjfmg-topics/ibs/ AboutIBS.org https://www.aboutibs.org/ Uptodate.com https://www.Nuservtodate.com/contents/ftzvuykki-sukxr-shptgjof-nwanqv-jbm-sakubu documented in this encounter Progress Notes * Alena Pizarro APRN - 04/27/2024 3:00 PM EDT Images from the original note were not included. Chief Complaint: Mora Bolanos is a 48 y.o. patient referred for consultation by Dr. Rico for chronic abdominal pain. History of Present Illness: 48 y.o. 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 No oropharyngeal dysphagia. Patient reports esophageal dysphagia 3-4x/week. It occurs with smoothies or solids. It generally occurs with more solid or thick consistencies. Patient also notes pain in epigastric/lower esophageal area. If she eats too much, patient reports she will have foam come up. Patient reports heartburn and acid reflux regularly. She notes she loses her voice from it. She reports it can occur with Ritz crackers, or laying down flat. Patient reports nausea when there is increased acid reflux or just sporadically with an associated gag reflux. No vomiting. Patient reports early satiety and post-prandial fullness. Pt reports regular bloating and gas. For the last month patient reports pain across her lower abdomen. This feels similar to when she has had endometriosis. It is worse when she has to have a BM. Patient feels incomplete evacuation of stool. Watery bowel movements for 1 month. Patient is going every time she eats or drinks. Patient reports melena. No blood in her stools. Patient reports artificial sugar can exacerbate loose stool. Patient is unable to drink a lot, as she will have diarrhea. Patient has had episodes of fecal incontinence. Low appetite. Patient has gained close to 20lbs. Current Regimen: Pantoprazole 40mg BID Past Therapies: N/A Lifestyle NSAID use: Ibuprofen twice weekly Caffeine/Soda: Sometimes coffee Diet: Regular Exercise: Active Child Births: 2: 1- vaginally and 1 Depression/Anxiety/Stress: Stress H/O abuse: No Disordered Eating: No Work: [employer] Review of systems: 14-system ROS reviewed and negative except as above Medications: Outpatient Medications Prior to Visit Medication Sig Dispense Refill pantoprazole EC (Protonix) [address] tablet Take 1 tablet by mouth daily. (Patient taking differently: Take 40 mg by mouth 2 times daily.) 90 tablet 3 calcium carbonate (Tums) 200 mg calcium (500 mg) Tablet, Chewable Take 1 tablet by mouth as needed for Heartburn. Calcium Carbonate-Mag Hydroxid (Rolaids) 550-110 mg Tablet, Chewable Take 1 tablet by mouth as needed. 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 acetaminophen (Tylenol) 325 mg tablet Take 650 mg by mouth every 4 hours as needed for Pain. No facility-administered medications prior to visit. Allergies: is allergic to onion, bupropion hcl, and metoclopramide hcl. Past Medical History: has a past medical history of Queen's esophagus, HLD (hyperlipidemia), and Type 2 diabetes mellitus. Past Surgical History: has a past surgical history that includes Upper Gi Endoscopy, Exam (91654) (09/04/2012); Upper Gi Endoscopy, Biopsy (33607) (09/04/2012); Unlisted Laparoscopic Procedure Esophagus (08763) (11/25/2012); Upper GI Endoscopy, Diagnostic (70886) (11/25/2012); Upper GI Endoscopy, Diag nostic (77883) (07/18/2014); Upper Gi Endoscopy, Biopsy ([id number]) (N/A, 07/22/2016); Upper Gi Endoscopy, Biopsy (63607) (N/A, 10/20/2017); Unlisted Laparoscopic Procedure Esophagus (11190) (N/A, 11/26/2017); Unlisted Laparoscopic Procedure Stomach (42953) (N/A, 11/26/2017); Upper GI Endoscopy, Diagnostic (49433) (N/A, 11/26/2017); Upper Gi Endoscopy, Biopsy (27010) (N/A, 03/09/2018); Upper GI Endoscopy, Diagnostic (36840) (N/A, 01/08/2021); Lap, Dx Surgical Abd W/Biopsy ([id number]) (N/A, 07/16/2023); and UpperGI Endoscopy, Diagnostic (44763) (N/A, 07/16/2023). Family History: family history includes Breast Cancer in her maternal cousin, maternal cousin, maternal grandmother, and paternal grandmother; Breast Cancer (age of onset: 45) in her maternal aunt and maternal aunt; Colorectal Cancer in her father, maternal uncle, mother, and paternal aunt; Colorectal Cancer (age of onset: 55) in her maternal aunt and maternal uncle; Colorectal Cancer (age of onset: 65) in her maternal aunt; Crohn Disease in her maternal aunt and maternal aunt; Esophageal Cancer in her maternal uncle; Ovarian Cancer in her maternal aunt and maternal cousin; Ovarian Cancer (age of onset: 60) in her mother; Pancreatic Cancer in her maternal aunt and maternal aunt; Prostate Cancer (age of onset: 63) in her father. denies family history of celiac disease in mother father or other family members Social History: reports that she quit smoking about 20 years ago. Her smoking use included cigarettes. She has never used smokeless tobacco. She reports that she does not drink alcohol and does not use drugs. Physical Exam: VITAL SIGNS: BP 127/63 (BP Location (NBP): Right arm, Patient Position: Sitting, BP Cuff Sizes: Adult (25-34 cm)) Ht 154.9 cm (5' 1) Wt 69.1 kg (152 lb 4.8 oz) BMI 28.78 kg/m?? BMI: Body mass index is 28.78 kg/m??. Gen: nad, normal body habitus Eyes: no scleral icterus CV: rrr, no m/r/g, radial pulse 2+, no pedal edema Pulm: ctab, normal respiratory effort GI: soft without masses, epigastric tenderness and lower abdominal tenderness, nondistended, normoactive bowel sounds Skin: warm, dry, grossly intact Neurologic: intact to light touch Psych: appropriate affect, a+ox3 Questionnaire: No data to display Laboratory studies, imaging, and procedures (my review of prior records): MRCP 05/15/23 07/16/23: Exploratory Lap and EGD HPI/Surgical Indications: Mora Bolanos is a 48 y.o. female with recurrent abdominal pain and reflux symptoms despite conversion from Magdaleno to Analia-en-Y gastric bypass, presenting for diagnostic laparoscopy and upper endoscopy. Procedure Description: The patient was brought to the operating room and positioned supine on the operating room table. 5000 units of SQH were administered preoperatively for VTE prophylaxis. Following induction of general endotracheal anesthesia, SCDs were placed for perioperative VTE prophylaxis and 2 g of Ancef was given as perioperative antibiotic prophylaxis. The abdomen was prepped and draped in usual sterile fashion. A standard surgical safety timeout was performed. Entry to the abdomen was gained via Optiview technique just above and to the left of the umbilicus at a prior port site. After infiltrating the skin and subcutaneous tissue with 0.25% Sensorcaine, a skin incision was made and a 5 mm port was placed under direct visualization with a 5 mm 0 degree laparoscope. Pneumoperitoneum was established to 15 mmHg which the patient tolerated without issue. Close inspection revealed no injury from initial port placement. After switching to a 5 mm 30 degree laparoscope, we then proceeded to place two additional 5 mm working ports in the right upper quadrantunder direct visualization at previous port sites. We then carefully inspected her post bypass anatomy. The Analia limb was identified and followed down to the JJ anastomosis. There were some adhesionsof the Analia limb to the JJ which were causing kinking of the Analia limb. These were carefully lysed using laparoscopic scissors. There were some additional adhesions to the mesentery of the Analia limb which were taken down as well. Once we had done this, the Analia limb was nicely mobile and laid out straight. The JJ anastomosis was carefully inspected; the mesenteric defect was closed. The BP limb was then run proximally without any evidence of abnormality. The common channel was then run distallyfor about 50 cm; there was no evidence of any abnormality. We then retracted the omentum cephalad and inspected Porter's defect which had opened up; this was closed with a running nonabsorbable 3-0V-loc suture. We then retracted the left lobe of the liver towards the anterior abdominal wall to expose the hiatus. There were large amount of adhesions from the gastric pouch and GJ anastomosis to the undersurface of the liver. These were taken down sharply with laparoscopic scissors to allow thepouch to be completely mobilized up to the level of the hiatus. An additional 5 mm working port wasplaced in the left upper quadrant under direct visualization in order to assist with retraction during this portion of the procedure. There was evidence of small herniation of the pouch, so we proceeded with an upper endoscopy. The gastroscope was passed through the oropharynx and into the esophagus. It was advanced down into the gastric pouch. The gastrojejunostomy appeared healthy and patent without any significant dilation or stricturing, and no evidence of ulceration. On withdrawing the scop e, there was a small 1 to 2 cm hiatal hernia but no evidence of any esophagitis. Given the relatively small size of the pouch herniation, we did not feel that this required further attention at this time, especially as the lysis of adhesions had significantly straightened out the Analia limb and mobilized the gastric pouch and may hopefully address a good deal of her symptoms. The ports were then removed under direct visualization and pneumoperitoneum was released. A total of 30 cc of 0.25% Sensorcaine was used to anesthetize the subcutaneous tissue at each of the port sites. The skin of each of the port sites was closed with 4-0 Monocryl subcuticular sutures. Mastisol and dressings of Steri-Strips and Band-Aids were applied to each port site. All counts were correct at the conclusion of the procedure. The patient was awakened from anesthesia, extubated, and transferred to recovery room in stable condition having suffered no untoward event. Dr. Cassidy was present for all critical portions of the procedure. Assessment/Plan: Ms. Bolanos is a 48 y.o. patient with a history of hyperlipidemia, endometriosis , diabetes, Queen's esophagus, s/p Analia-en-Y (Magdaleno to Analia-en-Y gastric bypass), s/p CCY presents for consultationfor chronic abdominal pain. #Esophageal Dysphagia Patient reports esophageal dysphagia 3-4x/week. It occurs with smoothies or solids. It generally occurs with more solid or thick consistencies. Patient also notes pain in epigastric/lower esophageal area. If she eats too much, patient reports she will have foam come up. Will proceed with high-resolution esophageal manometry to look for esophageal dysmotility. Last year high-resolution esophageal manometry was unremarkable. Patient did have an endoscopy last year by Dr. Cassidy, and is interested in repeating endoscopy to look for any structural abnormalities contributing to esophageal dysphagia. Patient is okay proceedingwith a GI provider if Dr. Cassidy is okay with it. Last EGD was unremarkable. Will proceed with EGD with biopsies for EOE. Could consider a double contrast barium esophagram. #Heartburn and Acid Reflux #Queen's Esophagus #Epigastric Pain #Voice Hoarseness Patient reports heartburn and acid reflux regularly. She notes she loses her voice from it. She reports it can occur with Ritz crackers, or laying down flat. Patient also reports epigastric pain and tenderness. Patient had pH/impedance testing in April of last year that showed evidence against breakthrough acid reflux 20 mg of omeprazole 4 times daily. Will proceed with pH/impedance testing to look for breakthrough acid reflux on 40 mg of omeprazole twice daily. We discussed the role of visceral hypersensitivity versus reflux (acid vs nonacid). #Nausea #Early Satiety #Post-Prandial Fullness Patient reports nausea when there is increased acid reflux or just sporadically with an associated gag reflux. No vomiting. Patient reports early satiety and post-prandial fullness. Will proceed with upper GI series with small bowel follow-through given altered anatomy from partial gastrectomy and Analia-en-Y. #Bloating Pt reports regular bloating and gas. Will obtain hydrogen breath test to rule out SIBO given that patient has a history of abdominal surgeries and diabetes. #Altered Bowel Pattern For the last month patient reports pain across her lower abdomen. This feels similar to when she has had endometriosis. It is worse when she has to have a BM. Patient feels incomplete evacuation of stool. Watery bowel movements for 1 month. Patient is going every time she eats or drinks. Patient reports melena. No blood in her stools. Patient reports artificial sugar can exacerbate loose stool. Patient is unable to drink a lot, as she will have diarrhea. Patient has had episodes of fecal incontinence. Patient has a significant family history of IBD and colorectal cancer. Will proceed with an abdominal CT-Eto rule out small bowel IBD given that patient has significant family history. Would hold off on fecal calprotectin given that patient uses NSAIDs regularly and that can alter the results. Will obtain a colonoscopy with biopsies for further microscopic colitis. Also patient has a historyof endometriosis can obtain biopsies. Patient also instructed to follow-up with [facility]CEIV[employer] PROC[employer] regarding abdominal pain, bloating, and altered bowelpattern similar to when patient had endometriosis flares. Will obtain stool samples: C. difficile, crypto/Giardia, fecal elastase, and stool culture. Will send labs to [facility] per patient request. Could consider anorectal manometry for fecal incontinence to look for dyssynergic defecation. Will obtain TSH and celiac panel. Could also trial fiber powder as a bulking agent. #Weight Gain Low appetite. Patient has gained close to 20lbs. We discussed that complete symptom relief may not be a fully achievable goal for this chronic condition, but that improvement in quality of life, healthy days at work and family functions, and also general symptom improvement may be more reasonable goals. We discussed that treatments should be tried individually and for periods of at least 4-8 weeks to truly assess symptom response. I did my bestto answer questions to the fullest ability. We discussed that recommended treatments should be tried individually for at least three months at a time to truly assess for a meaningful response, or as long as tolerated, before changing therapy. Recommendations: We discussed GI functional/motility disorders in depth today including pathophysiology, expected course, impact and treatment categories We also discussed realistic goals (with emphasis on improved quality of life) and patient responsibilities. Please see the patient handout for recommendations on general treatment measures including lifestyle, dietary, and non-prescription pharmacologic options. I will arrange a comprehensive evaluation of the structure and function of the patient's GI tract including the following investigations +/- referrals: Diagnostics: Endoscopy with biopsies for EOE Colonoscopy with biopsies for microscopic colitis and endometriosis Stool studies -C.difficile, crypto/Giardia, fecal elastase, and stool culture CT-E Esophageal high resolution manometry 24 hour esophageal pH/Impedance testing on PPI therapy Upper GI series with small bowel follow through Hydrogen breath test Labs: TSH and celiac panel Consider double contrast barium esophagram Consider anorectal manometry Therapeutics: Functional bowel handout Begin Metamucil or psyllium husk fiber (make sure it is free of artificial sweetener): 1tsp daily for one week, then 2tsp daily for one week, then 3tsp (1TBSP) daily. May increase slowly up to 2 TBSPdaily. Titrate according to what works best for you.This may cause bloating initially but this willimprove with continued use. If this supplement causes too much bloating you may try Citrucel. Follow-up with [facility] [facility] PROC[facility] regarding bloating, abdominal pain, and altered bowel pattern similar to endometriosis flare. Patient was instructed to go to the ED with any worsening of abdominal pain or changing of abdominal pain and other symptoms. We also discussed the collaborative care model of the [facility] GI motility program. The patient should continue to work with their PCP +/- local GI as the primary point(s) of contact for urgent issues, medication refills and adjustments as needed for continuity of care purposes in between visits to our center based on the recommendations above. Recommend PCP to refer to local GI if patient does not have a local GI currently (if outside the [facility] area). Yearly or bi-yearly visits with a member of the motility team may be available for co- management purposes depending upon the specific circumstances of the patient's medical condition. RTC with me in 3 weeks after testing Time spent reviewing records prior to this encounter on day of appointment: 0 minutes Time spent during encounter with patient including counselin minutes Time spent documenting encounter after office visit on day of appointment: 10 minutes Alena Pizarro APRN [facility] [place] [phone] documented in this encounter Plan of Treatment Upcoming Encounters Date Type Department Care Team (Late st Contact Info) Description 06/15/2024 3:00 PM EDT Hospital En[place] [address] [place] [address] 07/09/2024 8:30 AM EDT Appointment XRay at [address] [address] Alena Pizarro APRN [facility] [place] [address] 07/17/2024 8:00 AM EDT Procedure visit [place] [address] 08/26/2024 8:00 AM EST Office [place] [address] 08/27/2024 9:00 AM EST Clinical Support Gastroenterology at [place] [id number] Scheduled Orders Name Type Priority Associated Diagnoses Orde r Schedule High Resolution Esophageal Manometry GI Routine Gastroesophageal reflux disease, unspecified whether esophagitis present Esophageal dysphagia Expected: 04/27/2024, Expires: 10/28/2025 pH Impedance - 24 Hour GI Routine Gastroesophageal reflux disease, unspecified whether esophagitis present Esophageal dysphagia Expected: 04/27/2024 (Approximate), Expires: 10/28/2025 Breath Hydrogen Test GI Routine Bloating Expected: 04/27/2024, Expires: 10/27/2024 ENDOSCOPY CASE REQUEST: EGD, UPPER GI ENDOSCOPY (WRVU 2.09), COLONOSCOPY, DIAGNOSTIC (WRVU 3.26) Procedures Routine Altered bowel function Bloating Gastroesophageal reflux disease, unspecified whether esophagitis present Esophageal dysphagia Nausea without vomiting Lower abdominal pain Ordered: 04/27/2024 C. Difficile Screen Microbiology Routine Altered bowel function Expected: 04/27/2024 (Approximate), Expires: 07/28/2024 Giardia/Cryptosporidiu m Antigens ([facility]/CGP/APD/NLH) Microbiology Routine Altered bowel function Expected: 04/27/2024, Expires: 10/27/2024 Elastase, Stool Lab Routine Altered bowel function Expected: 04/27/2024, Expires: 10/27/2024 Stool Culture Screen ([facility]/CGP/APD/NL) Microbiology Routine Altered bowel function Expected: 04/27/2024, Expires: 10/27/2024 XR Fluoro Upper GI With Small Bowel Follow Thru Imaging Routine Bloating Nausea without vomiting Lower abdominal pain Epigastric pain Expected: 04/27/2024, Expires: 10/27/2024 documented as of this encounter Results * Tissue Transglutaminase, IgA (04/27/2024 4:14 PM EDT) TTG IgA Ab <0.4 <=10.0 U/mL 04/28/2024 3:02 PM EDT [facility] Blood VENOUS BLOOD SPECIMEN / Unknown Venipuncture / Unknown 04/27/2024 4:14 PM EDT 04/27/2024 4:15 PM EDT Narrative [facility] - 04/28/2024 3:02 PM EDT <7 U/mL: Negative 7-10 U/mL: Indeterminate >10 U/mL: Positive Alena Pizarro APRN IMMUNOLOGY ORDERAB LES Performing Organization Address City/[facility]/ZIP Co de Phone Number [facility] [place] [address] * IgG (04/27/2024 4:14 PM EDT) IgG 842 700 - 1,600 mg/dL 04/27/2024 5:18 PM EDT [facility] Blood VENOUS BLOOD SPECIMEN / Unknown Venipuncture / Unknown 04/27/2024 4:14 PM EDT 04/27/2024 4:15 PM EDT Alena Pizarro APRN CHEMISTRY ORDERABL ES Performing Organization Address [facility] Co de Phone Number [facility] [place] [address] * IgA (04/27/2024 4:14 PM EDT) IgA 215 70 - 400 mg/dL 04/27/2024 5:18 PM EDT [facility] Blood VENOUS BLOOD SPECIMEN / Unknown Venipuncture / Unknown 04/27/2024 4:14 PM EDT 04/27/2024 4:15 PM EDT Alena Pizarro REHAB NURSE CHEMISTRY ORDERABL ES Performing Organization Address City/[facility]/ZIP Co de Phone Number [facility] [place] [address] * TSH (04/27/2024 4:14 PM EDT) Thyroid Stimulating Hormone 1.26 0.27 - 4.20 mcIU/mL 04/27/2024 5:23 PM EDT [facility] Comment: Reference Interval (mcIU/mL): ?? Females: ? First Trimester: 0.23-3.88 ? Second Trimester: 0.22-3.90 ? Third Trimester: 0.44-4.66 Blood VENOUS BLOOD SPECIMEN / Unknown Venipuncture / Unknown 04/27/2024 4:14 PM EDT 04/27/2024 4:15 PM EDT Alena Tod Juarez REHAB NURSE CHEMISTRY ORDERABL ES [facility] [place] [address] documented in this encounter Visit Diagnoses Diagnosis Altered bowel function Other symptoms involving digestive system Bloating Flatulence, eructation, and gas pain Gastroesophageal reflux disease, unspecified whether esophagitis present Esophageal dysphagia Dysphagia, pharyngoesophageal phase Nausea without vomiting Lower abdominal pain Abdominal pain, other specified site Epigastric pain Abdominal pain, epigastric documented in this encounter Care Teams Music Publisher Relationship Specialty Start Date End Date Mike Goodman DNP [address] [place] [address] PCP - General Family Medicine 08/22/22 documented as of this encounter
--- OUTSIDE RECORDS SUMMARY | 2024-06-12 13:40 | XMS_ITS | Encounter Summary ---
Author Organization [facility] Address [facility] [place] [address] Care Team Providers Care Registry Np Name Role Phone Mike Goodman DNP Primary Care Provider [phone] Encounter Details Date Type Department Care Team (Late st Contact Info) Description 03/04/2024 2:00 PM EDT Office Visit Hematology/Oncology at [address] [phone] Leobardo Ricci MD [facility] DR HEMATOLOGY [place] [address] Justa Lyons [employer] LIFE COORDINATOR [address] [place] [address] DR [facility] [place], [place] [id number] Iron deficiency anemia due to chronic blood loss Social History Tobacco Use Types Packs/Day Years Used Date Smoking Tobacco: Former Cigarettes Q uit: 12/03/2003 Smokeless Tobacco: Never Alcohol Use Standard Drinks/Week Comments No 0 (1 standard drink = 0.6 oz pur e alcohol) [facility] Utilities Answer Date Recorded In the past 12 months has [employer], gas, oil, or water [employer] threatened to shut off services in your [...] place to sleep or slept in a fci (including now)? No 10/16/2023 DH IPV Inpatient [...] Sign Reading Time Taken Comments Blood Pressure 109/71 03/04/2024 1:56 PM EDT Pulse 79 03/04/2024 1:56 PM EDT Temperature 36.6 ??C (97.8 ??F) 03/04/2024 1:56 PM ED T Respiratory Rate 16 03/04/2024 1:56 PM EDT Oxygen Saturation 99% 03/04/2024 1:56 PM EDT Inhaled Oxygen Concentration - - Weight 68.9 kg (152 lb) 03/04/2024 1:56 PM EDT Height 154.9 cm (5' 0.98) 03/04/2024 1:56 PM ED T Body Mass Index 28.74 03/04/2024 1:56 PM EDT documented in this encounter Progress Notes * Leobardo Ricci MD - 03/04/2024 2:00 PM EDT Patient ID: Mora Bolanos is a 48 y.o. female. HPI Mora Bolanos is a 48yr old with iron deficiency anemia. She established care with the [facility] hematology clinic several months ago. She had been documented to be iron deficient without improvement on oral iron. She has a history of gastric bypass surgery. We gave her 1000 mg of intravenous iron 11/08. This resolved her iron deficiency and she was not anemic when we last checked her about 2 months ago. We asked her to return to make sure she was holdingonto her iron and not having rapid loss. She really does not feel much better. Still fatigued. Lots of other symptoms. He has not seen any blood loss. Patient Active Problem List Diagnosis Code Gastroesophageal reflux K21.9 Dyspepsia R10.13 Disorder of female genital organ N94.9 Endometriosis of other specified sites N80.8 Nausea R11.0 S/P partial gastrectomy Z90.3 Paroxysmal SVT (supraventricular tachycardia) I47.10 Chest pressure R07.89 Lipid screening Z13.220 Iron deficiency anemia due to chronic blood loss D50.0 Current Outpatient Medications: pantoprazole EC (Protonix) [address] tablet, Take 1 tablet by mouth daily. (Patient taking differently: Take 40 mg by mouth 2 times daily.), Disp: 90 tablet, Rfl: 3 acetaminophen (Tylenol) 325 mg tablet, Take 650 mg by mouth every 4 hours as needed for Pain., Disp: , Rfl: calcium carbonate (Tums) 200 mg calcium (500 mg) Tablet, Chewable, Take 1 tablet by mouth as neededfor Heartburn., Disp: , Rfl: Calcium Carbonate-Mag Hydroxid (Rolaids) 550-110 mg Tablet, Chewable, Take 1 tablet by mouth as needed., Disp: , Rfl: epiNEPHrine 0.15 mg/0.15 mL Cmpk combo pack, Inject into the muscle as needed (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, Disp: , Rfl: Allergies Allergen Reactions Onion Anaphylaxis Bupropion Hcl Other (See Comments) serum sickness Metoclopramide Hcl Other (See Comments) Unknown Review of Systems Constitutional: Positive for fatigue. Negative for fever. Respiratory: Negative for cough and shortness of breath. Cardiovascular: Negative for chest pain. Gastrointestinal: Positive for abdominal pain, diarrhea and nausea. Negative for anal bleeding, blood in stool and vomiting. Genitourinary: Negative for dysuria and vaginal bleeding. Musculoskeletal: Negative for back pain. Skin: Negative for pallor. Neurological: Negative for tremors, numbness and headaches. Hematological: Negative for adenopathy. Bruises/bleeds easily. Objective BP 109/71 (Patient Position: Sitting) Pulse 79 Temp 36.6 ??C (97.8 ??F) (Temporal) Resp 16 Ht 154.9 cm (5' 0.98) Wt 68.9 kg (152 lb) SpO2 99% BMI 28.74 kg/m?? Physical Exam Constitutional: General: She is not in acute distress. Appearance: Normal appearance. She is not ill-appearing. HENT: Mouth/Throat: Mouth: Mucous membranes are moist. Eyes: General: No scleral icterus. Pulmonary: Effort: Pulmonary effort is normal. Musculoskeletal: General: No swelling. Skin: Findings: No rash. Neurological: Mental Status: She is alert and oriented to person, place, and time. Lab Results Component Value Date WBC 6.02 03/04/2024 RBC 4.72 03/04/2024 HGB 13.2 03/04/2024 HCT 40.1 03/04/2024 MCV 78.4 (L) 09/02/2023 MCH 24.6 (L) 09/02/2023 MCHC 31.4 (L) 09/02/2023 PLATELET 258 03/04/2024 RDWCV 13.0 09/02/2023 Latest Reference Range & Units 08/19/23 09:51 09/02/23 16:55 01/15/24 00:00 03/04/24 00:00 Ferritin 6 - 175 ng/mL 10 (L) 10 152 (E) 133 (E) (L): Data is abnormally low (E): External lab result Assessment and Plan 48-year-old female with a microcytic anemia in the setting of low iron saturation and low ferritin despite ongoing oral iron. It is likely that her losses are not that great but she just does not absorb the iron very well. She had 1000mg monoferric IV infusion 11/08. This corrected her anemia and replenished her iron stores. There really has not been significant decrease in her iron stores over the last couple of months. This suggest she does not have excess losses. At this point I think she can be followed by her primary care team. I would recommend checking a CBC and ferritin every 6 to 12 months. She can be referred back to hematology if her ferritin gets below 30 for another course of intravenous iron. documented in this encounter Plan of Treatment Upcoming Encounters Date Type Department Care Team (Late st Contact Info) Description 06/15/2024 3:00 PM EDT Hospital [place] [address] [place] [address] 07/09/2024 8:30 AM EDT Appointment XRay at [address] [address] [place] [address] 07/17/2024 8:00 AM EDT Procedure [place] [address] 08/26/2024 8:00 AM EST Office [place] [address] 08/27/2024 9:00 AM EST Clinical [place] [address] documented as of this encounter Procedures Procedure Name Priority Date/Time Associated Diagnosis Comments CBC (WITH DIFF) Routine 03/04/2024 FERRITIN Routine 03/04/2024 documented in this encounter Results * Ferritin (03/04/2024) Ferritin 133 Blood 03/04/2024 Historical Provider CHEMISTRY ORDERAB LES * CBC (with Diff) (03/04/2024) White Blood Cell 6.02 Red Blood Cell 4.72 Hemoglobin 13.2 Hematocrit 40.1 Platelet 258 Neutrophil Absolute (ANC) - Automated 3.12 Blood 03/04/2024 Historical Provider HEMATOLOGY ORDERA BLES documented in this encounter Visit Diagnoses Diagnosis Iron deficiency anemia due to chronic blood loss Iron deficiency anemia secondary to blood loss (chronic) documented in this encounter Care Teams Registry Np Relationship Specialty Start Date End Date Mike Goodman DNP [address] [place] [id number] PCP - General Family Medicine 08/22/22 documented as of this encounter
--- OUTSIDE RECORDS SUMMARY | 2024-06-12 13:40 | XMS_ITS | Encounter Summary ---
Author Organization [facility] Address [facility] [place] [address] Care Team Providers Care Medical Technologist Hematology Name Role Phone Mike Goodman DNP Primary Care Provider [phone] Reason for Visit * Consultation (Routine) - Closed Specialty Diagnoses / Procedures Referred By Martha broussard Referred To Contact Endocrinology Diagnoses Vitamin D deficient osteomalacia Piotr Carolina MD [facility] [place] [address] Roxana Webb MD [facility] [place] [address] Referral ID Status Reason Start Date Expiration Date V isits Requested Visits Authorized [id number] Closed Consult, Test & Treat 02/11/2024 02/10/2025 1 1 Encounter Details Date Type Department Care Team (Latest Contact Info) Description 05/03/2024 4:00 PM EDT TH Visit (TeleHealth) [place] [address] Roxana Webb MD [facility] [place] [address] 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 No 10/16/2023 DH IPV Inpatient [...] on file documented as of this encounter Progress Notes * Roxana Webb MD - 05/03/2024 4:00 PM EDT Images from the original note were not included. Division of Endocrinology Date of Visit: 05/03/2024 Patient Name: Mora Bolanos : 1975 PCP: Mike Goodman DNP Mrs Mora Bolanos 48yo here for tele follow-up on vitamin D def, secondary hyperparathyroidisms/p Analia-en-Y. All food makes her nauseated. Her DM has resolved. Somebody told her to cut back Ca citrate to one a day and cut back on vitamin D. She still has pains in here long bones, shins and arms. Getting sun exposure as well as tanning garcia. Had partial hysterectomy when 20, one ovari was not taken out. She does not know if is postmenopausal. Analia-en-Y was done due to severe GERD, not weight loss. Her last BMD by [facility] DXA done on 02/2024 LS - 2.0 SD LFN -1.9 SD Distal 1/3 forearm -0.3 SD on T score Average time spent outside in direct sun a day [] 0-5 min [] 5-10 min [] 11-15 min [] 16-20 min [] 21-25 min [] 26-30 min [x] >30 min Daily calcium intake: [] 0-100 mg [x] 101-200 mg from one ca citrate chew [] 201-300 mg [] 301-400 mg [x] 401-500 mg from food [] 501-600 mg [] 601-700 mg [] 701-900 mg [] 901-1100 mg [] 2499-6441 mg [] 8668-6076 mg [] Above 1500 mg Medications: Current Outpatient Medications on File Prior to Visit Medication Sig Dispense Refill pantoprazole EC (Protonix) [address] tablet Take 1 tablet by mouth daily. (Patient taking differently: Take 40 mg by mouth 2 times daily.) 90 tablet 3 acetaminophen (Tylenol) 325 mg tablet Take 650 mg by mouth every 4 hours as needed for Pain. calcium carbonate (Tums) 200 mg calcium (500 mg) Tablet, Chewable Take 1 tablet by mouth as needed for Heartburn. Calcium Carbonate-Mag Hydroxid (Rolaids) 550-110 mg Tablet, Chewable Take 1 tablet by mouth as needed. 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 No current facility-administered medications on file prior to visit. PMH: Patient Active Problem List Diagnosis Code Gastroesophageal reflux K21.9 Dyspepsia R10.13 Disorder of female genital organ N94.9 Endometriosis of other specified sites N80.8 Nausea R11.0 S/P partial gastrectomy Z90.3 Paroxysmal SVT (supraventricular tachycardia) I47.10 Chest pressure R07.89 Lipid screening Z13.220 Iron deficiency anemia due to chronic blood loss D50.0 Allergies Allergen Reactions Onion Anaphylaxis Bupropion Hcl Other (See Comments) serum sickness Metoclopramide Hcl Other (See Comments) Unknown Family History Problem Relation Age of Onset Colorectal Cancer Mother Ovarian Cancer Mother 60 Colorectal Cancer Father Prostate Cancer Father 63 Breast Cancer Maternal Grandmother Breast Cancer Paternal Grandmother Breast Cancer Maternal Aunt 45 Pancreatic Cancer Maternal Aunt Pancreatic Cancer Maternal Aunt Breast Cancer Maternal Aunt 45 Ovarian Cancer Maternal Aunt Colorectal Cancer Maternal Aunt 55 Polyposis syndrome Crohn Disease Maternal Aunt Crohn Disease Maternal Aunt Colorectal Cancer Maternal Aunt 65 Colorectal Cancer Maternal Uncle 55 Esophageal Cancer Maternal Uncle Colorectal Cancer Maternal Uncle Colorectal Cancer Paternal Aunt Breast Cancer Maternal Cousin Breast Cancer Maternal Cousin Polyposis syndrome Ovarian Cancer Maternal Cousin Social History Socioeconomic History Marital status: Spouse name: Not on file Number of children: Not on file Years of education: Not on file Highest education level: Not on file Occupational History Not on file Tobacco Use Smoking status: Former Current packs/day: 0.00 Types: Cigarettes Quit date: 12/03/2003 Years since quittin.4 Smokeless tobacco: Never Vaping Use Vaping status: Never Used Substance and Sexual Activity Alcohol use: No Drug use: No Sexual activity: Yes Partners: Male Other Topics Concern Not on file Social History Narrative Not on file Social Determinants of Health Financial Resource Strain: Medium Risk (10/16/2023) Overall Financial Resource Strain (CARDIA) Difficulty of Paying Living Expenses: Somewhat hard Food Insecurity: No Food Insecurity (10/16/2023) Hunger Vital Sign Worried About Running Out of Food in the Last Year: Never true Ran Out of Food in the Last Year: Never true Transportation Needs: No Transportation Needs (10/16/2023) PRAPARE - Transportation Lack of Transportation (Medical): No Lack of Transportation (Non-Medical): No Physical Activity: Not on file Intimate Partner Violence: Patient Unable To Answer (07/16/2023) IPV Inpatient Questions Prevent Contact with Others: unable to answer (comment required) Feels Threatened by Someone: unable to answer (comment required) Feels Unsafe at Home: unable to answer (comment required) Physical Signs of Abuse Present: Not on file Housing Stability: High Risk (10/16/2023) Housing Stability Vital Sign Unable to Pay for Housing in the Last Year: Yes Number of Places Lived in the Last Year: 1 Unstable Housing in the Last Year: No Physical Examination: Appearance: well hydrated, well nourished, oriented x 3, in nad. Labs 02/2024 CBC and Chem 7 in good range, Ca 9.3, PTH 76, 25-D 18, AP 111, TSH 1.26 Assessment and Plan Vit D def with secondary hyperparathyroidism due to severe malabsorption/osteopenia: Will get FSH/LH to see if pt is postmenopausal. Check am cortisol as feels nausea all the time. Will continue spending time in sun 20min daily and/or tanning garcia. A. As patient's Ca intake is 400mg, and pt is on PPI, increase Ca citrate 1800 mg (21% elemental Ca) plus Vitamin D twice a day chews. B. Patient doesn't have Vitamin D at goal, 30 ng/ml and above. Now takes 73443Y vit D every other day, will increase to Ergoclaciferol 50,000 U daily for 4 weeks and repeat PTH/25-D level at that time. Will recheck 25, Vit D at [facility] outpatient follow up appointment. C. No need to repeat BMD by DXA D. I will schedule patient for outpatient visit at 4-8 weeks. Thank you for allowing me to participate in the care of this very pleasant patient. I spend 40min in chart review, DXA, labs discussing her low vitamin D, elevated PTH and writing my note. Sincerely, Roxana Webb MD Professor of Endocrinology documented in this encounter Plan of Treatment Upcoming Encounters Date Type Department Care Team (Late st Contact Info) Description 06/15/2024 3:00 PM EDT Hospital [place] [address] [place] [address] 07/09/2024 8:30 AM EDT Appointment XRay at [address] [address] [place] [address] 07/17/2024 8:00 AM EDT Procedure [place] [address] 08/26/2024 8:00 AM EST Office [place] [address] 08/27/2024 9:00 AM EST Clinical [place] [address] Scheduled Orders Name Type Priority Associated Diagnoses Orde r Schedule Creatinine, urine, 24 hour Lab Routine 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 H/O bariatric surgery Ordered: 05/03/2024 Calcium, urine, 24 hour Lab Routine 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 H/O bariatric surgery Ordered: 05/03/2024 PTH Lab Routine 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 H/O bariatric surgery Expected: 05/03/2024, Expires: 11/02/2024 Calcium Lab Routine 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 H/O bariatric surgery Expected: 05/03/2024, Expires: 11/02/2024 Vitamin D, 25-Hydroxy Lab Routine 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 H/O bariatric surgery Expected: 05/03/2024, Expires: 07/03/2024 Luteinizing Hormone Lab Routine 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 H/O bariatric surgery Expected: 05/03/2024, Expires: 11/02/2024 Follicle Stimulating Hormone Lab Routine 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 H/O bariatric surgery Expected: 05/03/2024, Expires: 11/02/2024 Cortisol Lab Routine 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
--- OUTSIDE RECORDS SUMMARY | 2024-06-12 13:41 | XMS_ITS | Encounter Summary ---
Author Organization [facility] [place] [address] Care Team Providers Care Commercial Attache Name Role Phone Mike Goodman KYLE Primary Care Provider [phone] Reason for Visit * Reason Comments Genetic Evaluation * Consultation (Routine) - Closed Specialty Diagnoses / Procedures Referred By Martha broussard Referred To Contact Genetics Diagnoses Family history of ovarian cancer Jaimee Maki, [facility] [place] [address] [facility] [address] [place] [address] Referral ID Status Reason Start Date Expiration Date V isits Requested Visits Authorized [id number] Closed Consult, Test & Treat 06/17/2023 06/16/2024 1 1 Encounter Details Date Type Department Care Team (Late st Contact Info) Description 10/01/2023 1:00 PM EST Office Visit Hematology [place] [address] Justa Jakcson, [facility] [place] [address] Family history of ovarian cancer; Family hx of colon cancer; Family history of malignant neoplasm of breast; Family history of genetic disease carrier Social History Tobacco Use Types Packs/Day Years Used Date Smoking Tobacco: Former Cigarettes Q uit: 12/03/2003 Smokeless Tobacco: Never Alcohol Use Standard Drinks/Week Comments No 0 (1 standard drink = 0.6 oz pur e alcohol) [facility] Utilities Answer Date Recorded In [...] place to sleep or slept in a residential (including now)? No 10/16/2023 DH IPV Inpatient [...] Sign Reading Time Taken Comments Blood Pressure 118/79 10/01/2023 1:12 PM EST Pulse 87 10/01/2023 1:12 PM EST Temperature 36.2 ??C (97.2 ??F) 10/01/2023 1:12 PM ES T Respiratory Rate 18 10/01/2023 1:12 PM EST Oxygen Saturation 100% 10/01/2023 1:12 PM EST Inhaled Oxygen Concentration - - Weight 68.9 kg (151 lb 14.4 oz) 10/01/2023 1:12 PM EST Height 154.9 cm (5' 0.98) 10/01/2023 1:12 PM ES T Body Mass Index 28.72 10/01/2023 1:12 PM EST documented in this encounter Progress Notes * Justa Flores LGC - 10/01/2023 1:00 PM EST Mora Bolanos was seen by MARCELLO Vila in consultation at the request of Rehana Solorio to advise regarding possible heritable predisposition to cancer. I spent 44 minutes of this face to face encounter with the patient gathering medical and family history and discussing the likelihood of a genetic predisposition to cancer and the option of genetic testing. Reason for referral/Chief complaint Family history of breast, colon, and ovarian cancer. Medical history Cancer hx and treatment: Mora is a 48 y.o. female who denies a personal history of cancer. Mora reports that her maternal aunt and maternal cousin underwent genetic testing and found to have a genetic predisposition to a polyposis syndrome. Mora did not have a copy of either her aunt or her cousin's test reports, so we were unable to review the specific gene/mutation found, where their testing was done, or how many genes were analyzed at today's visit. I informed Mora that providing us with a copy of either her aunt or cousin's genetic test report would ensure that our testing company supplies the most accurate information if she is able to send a copy to us through our email at [email or web address] or via a [employer] message. Family History of Cancer Problem Relation Age of Onset Ovarian Cancer Mother 60 Prostate Cancer Father 63 Breast Cancer Maternal Grandmother Breast Cancer Paternal Grandmother Breast Cancer Maternal Aunt 45 Breast Cancer Maternal Aunt 45 Ovarian Cancer Maternal Aunt Colorectal Cancer Maternal Aunt 55 Polyposis syndrome Colorectal Cancer Maternal Aunt 65 Colorectal Cancer Maternal Uncle 55 Colorectal Cancer Maternal Uncle Breast Cancer Maternal Cousin Breast Cancer Maternal Cousin Polyposis syndrome Ovarian Cancer Maternal Cousin Colorectal Cancer Paternal Aunt There is no known Ashkenazi Jain ancestry. Genetic risk assessment Based on the reported polyposis syndrome mutation identified in Mora's maternal aunt and maternal cousin, Mora has an up to 25% chance of also being a carrier. Genetic testing for Mora is recommended. Additionally, Mora meets NCCN criteria for BRCA1 and BRCA2 analysis based on thefamily history of ovarian cancer diagnosed in her mother, maternal aunt, and maternal cousin, as well as breast cancer diagnosed in her maternal grandmother, two maternal aunts, and two maternal cousins. We discussed the purpose of testing such as the possibility of identifying additional screeningand medical management recommendations, as well as identifying hereditary cancer risk for other family members. We reviewed the lifetime cancer risks and medical management recommendations associated with mutations in the BRCA1 and BRCA2 genes, including high-risk breast cancer screening with mammography and breast MRIs vs prophylactic bilateral mastectomy, as well as prophylactic removal of the ovaries and f allopian tubes (bilateral salpingo-oophorectomy). We also discussed risks for prostate, male breast, and pancreatic cancer. We discussed the lifetime cancer risks and medical management recommendations associated with polyposis syndromes such as Familial Adenomatous Polyposis (FAP) syndrome, including colonoscopies every 1-2 years beginning in late teens with consideration of colectomy depending on polyp burden and upper endoscopy starting between ages 20-25 with frequency determined by family history and personal findings. Panel genetic testing for an inherited predisposition to cancer, including polyposis syndromes and breast and ovarian cancer, was discussed. The risks, benefits and limitations of panel genetic testing were reviewed, specifically a high rate of identifying a variant of uncertain significance, lack of knowledge of cancer risk for newly identified, moderate risk genes included in the panel and lackof effective screening, as well as cancer risk for other cancers not observed in the family. We reviewed dominant inheritance, meaning that if a mutation is detected there is a 50% chance for Mora's sons and siblings to have also inherited the same gene alteration. We discussed the Genetic Information Nondiscrimination Act (MARTHA), a federal law prohibiting discrimination by health insurance companies and most employers based on genetic information. MARTHA does not apply to life insurance, disability insurance or long-term care insurance. More information about MARTHA may be found at [email or web address]. Mora opted for testing with [facility]' CancerNext-Expanded Panel, a next generation sequencing panel that simultaneously analyzes 77 genes, including BRCA1/BRCA2 and polyposis syndromes, that contribute to increased risk for cancer. Mora was consented. Her blood sample was drawn and sent to [facility]. We reviewed [facility]'s billing policy. Mora will be notified by text and/or email once Daksha completes their benefits investigation if her estimated out of pocket cost is over $100. At that time, ifMora is concerned about the estimated test cost she will have the option to contact [facility] directly and either apply for [employer]'s patient assistance program to try and reduce cost of testing based on income information, cancel testing, or switch to a self-pay option of $250. If Mora does not respond to [employer] [facility] [facility], testing will be billed to her insurance as the default option. Testing will take up to 3 weeks from when the lab receives the sample. Mora will be contacted via telephone once her test results become available. At that time, we will discuss with Mora theimplications that this test result may have for her as well as her family members, review any recommended screening guidelines for cancer prevention and early detection, and answer any questions she may have. documented in this encounter Plan of Treatment Upcoming Encounters Date Type Department Care Team (Late st Contact Info) Description 06/15/2024 3:00 PM EDT Hospital [place] [address] [place] [address] 07/09/2024 8:30 AM EDT Appointment XRay at [address] [address] Alena Pizarro APRN [facility] [place] [address] 07/17/2024 8:00 AM EDT Procedure [place] [address] 08/26/2024 8:00 AM EST Office [place] [address] 08/27/2024 9:00 AM EST Clinical [place] [address] Scheduled Referrals Name Type Priority Associated Diagnoses Orde r Schedule Referral to Familial Cancer Outpatient Referral Routine Anal fissure Family hx of colon cancer Ordered: 03/07/2023 Referral to Familial Cancer Outpatient Referral Routine Family history of ovarian cancer Ordered: 06/17/2023 documented as of this encounter Visit Diagnoses Diagnosis Family history of ovarian cancer Family history of malignant neoplasm of ovary Family hx of colon cancer Family history of malignant neoplasm of gastrointestinal tract Family history of malignant neoplasm of breast Family history of genetic disease carrier documented in this encounter Care Teams Commercial Attache Relationship Specialty Start Date End Date Mike Goodman DNP [address] [place] [id number] PCP - General Family Medicine 08/22/22 documented as of this encounter
--- OUTSIDE RECORDS SUMMARY | 2024-06-12 13:41 | XMS_ITS | Encounter Summary ---
Author Organization [facility] [place] [address] Care Team Providers Care Rn Hemodialysis Name Role Phone Mike Goodman KYLE Primary Care Provider [phone] Reason for Visit * Reason Onset Date Comments Results 11/06/2023 Encounter Details Date Type Department Care Team (Late st Contact Info) Description 11/06/2023 Telephone H[place]ology [place] [address] Garry Bullard [facility] Hematology/[place] [address] Results Social History Tobacco Use Types Packs/Day Years Used Date Smoking Tobacco: Former Cigarettes Q uit: 12/03/2003 Smokeless Tobacco: Never Alcohol Use Standard Drinks/Week Comments No 0 (1 standard drink = 0.6 oz pur e alcohol) [facility] Utilities Answer Date Recorded In the past 12 months has [employer], gas, oil, or water [employer] threatened to shut off services in your [...] in a snf (including now)? No 10/16/2023 DH IPV Inpatient [...] encounter Miscellaneous Notes * Telephone Encounter - Garry Bullard LGC - 11/06/2023 4:05 PM EST This test result was discussed with the patient by phone. A copy of the test results have been scanned in the medical record and sent to Mora. A summary of the results is provided below. Please be advised that [place] law requires that all health care workers respect the confidentiality of this information and not pass it along to other health care providers, insurance companies, or individuals without the written permission of the patient. The [facility] Cancer Program welcomes any questions about these matters. Our phone number is: [phone]. On 10/01/2023 Mora was seen for genetic counseling and subsequently underwent genetic testing for a hereditary predisposition to cancers in eight major organ systems including breast, gynecologic, gastrointestinal, endocrine, genitourinary, skin, brain/nervous system, sarcoma and hematologic. Following are the results of this test. Result: [facility]-Expanded [facility] Medical Panel showed no mutation was detected. This means that Mora does not carry a mutation in the genes detectable by this test. The following 77 genes were analyzed: AIP, ALK, APC, BLANCO, BAP1, BARD1, BLM, BMPR1A, BRCA1, BRCA2, BRIP1, CDC73, CDH1, CDK4, CDKN1B,CDKN2A, CHEK2, DICER1, FANCC, FH, FLCN, GALNT12, KIF1B, LZTR1, MAX, MEN1, MET, MLH1, MSH2, MSH6, MUTYH, NBN, NF1, NF2, NTHL1, PALB2, PHOX2B, PMS2, POT1, SFIMB2U, PTCH1, PTEN, RAD51C, RAD51D, RB1, RECQL, RET, SDHA, SDHAF2, SDHB, SDHC, SDHD, SMAD4, SMARCA4, SMARCB1, SMARCE1, STK11, SUFU, BRIF649, TP53, TSC1, TSC2, VHL and XRCC2 (sequencing and deletion/duplication); AXIN2, CTNNA1, EGFR, EGLN1, HOXB13, KIT, MITF, MSH3, PDGFRA, POLD1 and POLE (sequencing only); EPCAM and GREM1 (deletion/duplicationonly). Interpretation: This test did not identify an underlying genetic cause for the family history of ovarian, breast, colon, and prostate cancer. Possible explanations for this uninformative negative test result include: The cancer in Mora's family may be due to non genetic, environmental causes. There could be a mutation in Mora's family that Mora did not inherit. Mora's siblings and any maternal relatives should still consider their own genetic counseling and testing based on the extensive family history of cancer. There could be mutations in other cancer genes not included in this test, or in genes yet to be discovered. There is a very small chance that a pathogenic variant/mutation could be missed due to limitations in the testing. Based on these results, Mroa's children do not need genetic testing for hereditary cancer risk due to their maternal family history. If their father's family history is of concern, we would recommend further evaluation of that side of the family by a genetic counselor. Additional germline genetic testing for Mora is not recommended at this time. Screening Recommendations Based on genetic test results and personal and/or family history, we recommend: Breast cancer screening Be aware of any breast changes and share concerns with primary care provider Annual clinical breast exams Annual mammograms/Biennial or annual tomosynthesis (3D mammogram) As it is unclear whether the family history of breast cancers are due to a hereditary cancer syndrome or not, Mora could be considered for additional screening with breast MRIs. Mora should be aware of a high false positive rate associated with breast MRI screening, limited data supporting this modality for screening women at her level of risk, as well as possible lack of insurance coverage. If interested, Mora could further discuss this screening option with a breast specialist. Gynecologic cancer screening Pelvic exams and/or Pap smears as recommended by Mora's officer captain or primary care provider. Ovarian cancer risk management Risk reducing surgery to remove one's ovaries and fallopian tubes (a bilateral salpingo-oophorectomy) is not currently recommended for women without a gene mutation. Whether or not Mora may benefit from a BSO could be discussed with a gynecologic oncologist, if she desires. It important to notethat there may be risk associated with the procedure including, but not limited to: financial costs, early menopause, and general surgical risks. If Mora would like to discuss pros and cons of surgery further, she can talk to her officer captain or request a referral to the gynecological oncology program here at [facility]. Colon cancer screening Baseline colorectal cancer screening starting by age 45-50 is important for everyone, regardless ofgenetic predisposition. If Mora hasn't begun screening yet she should discuss the available screening options with her primary care provider. Periodic colonoscopy screening as recommended by Mora's operating room manager, taking family history it account. Skin cancer screening Skin cancer screening and sun protection are important for everyone, regardless of genetic predisposition. Consideration of routine dermatologic/skin exams, as recommended by Mora's primary care provider or chief clinical dietitian. documented in this encounter Plan of Treatment Upcoming Encounters Date Type Department Care Team (Late st Contact Info) Description 06/15/2024 3:00 PM EDT Hospital [place] [address] Alena [place] [address] 07/09/2024 8:30 AM EDT Appointment XRay at [address] [address] [place] [address] 07/17/2024 8:00 AM EDT Procedure [place] [address] 08/26/2024 8:00 AM EST Office [place] [address] 08/27/2024 9:00 AM EST Clinical [place] [address] documented as of this encounter Visit Diagnoses Not on filedocumented in this encounter Care Teams Rn Hemodialysis Relationship Specialty Start Date End Date Mike Goodman DNP [address] [place] [address] PCP - General Family Medicine 08/22/22 documented as of this encounter
--- OUTSIDE RECORDS SUMMARY | 2024-06-12 13:41 | XMS_ITS | Encounter Summary ---
Author Organization [facility] [place] [address] Care Team Providers Care Gse Mechanic Name Role Phone Mike Goodman DNP Primary Care Provider [phone] Encounter Details Date Type Department Care Team (Late st Contact Info) Description 10/01/2023 Notes Only Hematology [place] [id number] Lucy Roberts MD [facility] [place] [address] Social History Tobacco Use Types Packs/Day Years Used Date Smoking Tobacco: Former Cigarettes Q uit: 12/03/2003 Smokeless Tobacco: Never Alcohol Use Standard Drinks/Week Comments No 0 (1 standard drink = 0.6 oz pur e alcohol) IPV Inpatient Questions Answer Date Recorded Does [...] as of this encounter Progress Notes * Lucy Roberts MD - 10/01/2023 10:09 AM EST Images from the original note were not included. Patient Name: Mora Bolanos : 1975 Mora Bolanos will be meeting with the genetic counselor(s) of the [facility] Cancer Program ([facility]) for genetic testing as per referral placed by their referring provider. Genetic counselor(s) will order appropriate genetic testing based on their assessment and indications for which the patient has been referred to the program. Based on genetic testing results, and within the scope of practice of [facility] genetic counselors, referrals to other providers/departments for recommendations regarding screening/ further management may need to be ordered by genetic counselors, if indicated; and will be communicated with the patients per genetic counselors. Please be advised that I have NOT met with Mora Bolanos; and that Mora Bolanos may or may NOT have established care with medical oncology. Please be advised that my name may appear as referring provider for referrals s/p genetic testing results, given my relation with [facility]; otherwise I have NOT established care with Mora Bolanos from medical oncology standpoint unless patient has been formally referred to see me. If referrals for medical oncology are indicated; please place orders for referrals as indicated through appropriate channels. If patient has already established care with medical oncology, please communicate further recommendations to their primary oncologist. For questions regarding genetic testing results, please communicate with [facility] genetic counselors. An appointment has been scheduled with [facility] Genetics. Lucy Roberts MD Medical Oncology [facility] Cancer [employer] TeacherLamp Inspector, [facility] [employer] Cancer.[email or web address] [email or web address] [facility] documented in this encounter Plan of Treatment Upcoming Encounters Date Type Department Care Team (Late st Contact Info) Description 06/15/2024 3:00 PM EDT Hospital [place] [address] [place] [address] 07/09/2024 8:30 AM EDT Appointment XRay at [address] [address] [place] [address] 07/17/2024 8:00 AM EDT Procedure [place] [address] 08/26/2024 8:00 AM EST Office [place] [address] 08/27/2024 9:00 AM EST Clinical [place] [address] documented as of this encounter Visit Diagnoses Not on filedocumented in this encounter Care Teams Gse Mechanic Relationship Specialty Start Date End Date Mike Goodman DNP [address] [place] [address] PCP - General Family Medicine 08/22/22 documented as of this encounter
--- OUTSIDE RECORDS SUMMARY | 2024-06-12 13:41 | XMS_ITS | Encounter Summary ---
Author Organization [facility] Address [facility] [place] [address] Care Team Providers Care Sanitation Laborer Name Role Phone Mike Goodman DNP Primary Care Provider Encounter Details Date Type Department Care Team (Late st Contact Info) Description 07/16/2023 Interpretation Only Radiology [address] [place] [address] [place] [address] Unknown None Social History Tobacco Use Types Packs/Day Years Used Date Smoking Tobacco: Former Cigarettes Q uit: 12/03/2003 Smokeless Tobacco: Never Alcohol Use Standard Drinks/Week Comments No 0 (1 standard drink = 0.6 oz pur e alcohol) [facility] Inpatient Questions Answer Date Recorded Does Anyone [...] PM EDT Hospital Encounter CT Scan at [facility] [place] [address] [place] [address] 07/09/2024 8:30 AM EDT Appointment XRay at [address] [address] [place] [address] 07/17/2024 8:00 AM EDT Procedure visit [place] [address] 08/26/2024 8:00 AM EST Office [place] [address] 08/27/2024 9:00 AM EST Clinical [place] [address] documented as of this encounter Procedures Procedure Name Priority Date/Time Associated Diagnosis Comments DH OR ENDOSCOPY Routine 07/16/2023 documented in this encounter Results * DH OR Endoscopy (07/16/2023) Anatomical Region Laterality Modality Other 07/16/2023 Narrative 07/16/2023 12:00 AM EDT Photographs - Images Procedure Note Unknown - 09/01/2023 Photographs - Images Unknown EA IMAGES documented in this encounter Visit Diagnoses Not on filedocumented in this encounter Care Teams Sanitation Laborer Relationship Specialty Start Date End Date Mike Goodman DNP [address] [place] [address] PCP - General Family Medicine 08/22/22 documented as of this encounter
--- OUTSIDE RECORDS SUMMARY | 2024-06-12 13:41 | XMS_ITS | Encounter Summary ---
Author Organization [facility] [place] [address] Care Team Providers Care Neon Sign Installer Name Role Phone Mike Goodman KYLE Primary Care Provider [phone] Reason for Visit * Diagnostic Test (Routine) - Closed Specialty Diagnoses / Procedures Referred By Martha broussard Referred To Contact Diagnoses Pain of upper abdomen Procedures Duplex Study Visceral Arteries, Comp Eusebio Pereyra, HOME SCHOOL COORDINATOR [facility] [place] [address] [facility] [address], [place] [address] Referral ID Status Reason Start Date Expiration Date V isits Requested Visits Authorized [id number] Closed Specialty Service Requested 08/19/2023 08/18/2024 1 1 Encounter Details Date Type Department Care Team (Late st Contact Info) Description 08/27/2023 9:00 AM [facility] Tech [place] [address] Niyah Coppola, RVT Pain of upper abdomen Social History Tobacco Use Types Packs/Day Years [...] PM EDT Hospital [place] [address] [place] [address] 07/09/2024 8:30 AM EDT Appointment XRay at [address] [address] [place] [address] 07/17/2024 8:00 AM EDT Procedure [place] [address] 08/26/2024 8:00 AM EST Office Visit [place] [address] 08/27/2024 9:00 AM EST Clinical Support [place] [address] documented as of this encounter Procedures Procedure Name Priority Date/Time Associated Diagnosis Comments MESENTERIC COMPLETE Routine 08/27/2023 8 :44 AM EST Pain of upper abdomen documented in this encounter Results * Duplex Study Visceral Arteries, Comp (08/27/2023 8:44 AM EST) VB Text Report Department: Vascular Surgery Lab Patient: [id number] (MORA BOLANOS) CPT: 92164 Referring Physician: EUSEBIO PEREYRA ?? Indications: Persistent epigastric pain associated with eating; ? mesenteric disease. Findings: Unilateral ? Waveform ?? PSV cm/s ??EDV cm/s ?? [place] Renal Aorta ?96 ?13 ?? Celiac Artery, Proximal ??Biphasic ?103 ?35 ?? Celiac Artery, Mid ? Biphasic ?167 ?48 ?? Celiac Artery, Distal ?Biphasic ?123 ?32 ?? Sup Mes Artery Proximal ??Triphasic ? 156 ?26 ?? Sup Mes Artery Middle ?Triphasic ? 142 ?18 ?? Sup Mes Artery Distal ?Triphasic ?69 ? 0 ?? Hepatic Artery ? Biphasic ? 88 ?21 ?? Splenic Artery ? Biphasic ?146 ?38 ?? Inf Mes Artery ? Triphasic ? 136 ? 7 ?? Interpretation: Patent celiac and superior mesenteric arteries with no evidence of significant stenosis. Patent common hepatic, splenic and inferior mesenteric arteries with no evidence of significant stenosis. Comparison: ??No previous study in our vascular lab database for comparison. Electronically Signed by: CONRADO BOATENG M.D. on 2023-08-27 12:25:47 PM [facility] VB Text Report End of Report [facility] 08/27/2023 8:44 AM EST Eusebio Pereyra HOME SCHOOL COORDINATOR VASCULAR ORDERABLE S [facility] documented in this encounter Visit Diagnoses Diagnosis Pain of upper abdomen Abdominal pain, other specified site documented in this encounter Care Teams Neon Sign Installer Relationship Specialty Start Date End Date Mike Goodman DNP [address] [place] [address] PCP - General Family Medicine 08/22/22 documented as of this encounter
--- OUTSIDE RECORDS SUMMARY | 2024-06-12 13:41 | XMS_ITS | Encounter Summary ---
[place] [address] Care Team Providers Care Web Services Manager Name Role Phone Mike Goodman KYLE Primary Care Provider Reason for Referral * Diagnostic Test (Routine) - Closed Specialty Diagnoses / Procedures Referred By Martha broussard Referred To Contact Diagnoses Pain of upper abdomen Procedures Duplex Study Visceral Arteries, Comp Jessica Pereyra APRN [facility] [place] [address] [facility] [address] [address] Referral ID Status Reason Start Date Expiration Date V isits Requested Visits Authorized [id number] Closed Specialty Service Requested 08/19/2023 08/18/2024 1 1 Encounter Details Date Type Department Care Team (Late st Contact Info) Description 08/19/2023 8:00 AM EST Office Visit [place] [address] Jessica Pereyra APRN [facility] [place] [address] Pain of upper abdomen Social History Tobacco Use Types Packs/Day Years Used Date Smoking Tobacco: Former Cigarettes Q uit: 12/03/2003 Smokeless Tobacco: Never Alcohol Use Standard Drinks/Week Comments No 0 (1 standard drink = 0.6 oz pur e alcohol) DH IPV Inpatient Questions Answer Date Recorded [...] Sign Reading Time Taken Comments Blood Pressure 124/73 08/19/2023 8:52 AM EST Pulse 100 08/19/2023 8:52 AM EST Temperature 36.7 ??C (98 ??F) 08/19/2023 8:52 AM EST Respiratory Rate 16 08/19/2023 8:52 AM EST Oxygen Saturation 97% 08/19/2023 8:52 AM EST Inhaled Oxygen Concentration - - Weight - - Height - - Body Mass Index - - documented in this encounter Progress Notes * Jessica Pereyra, HEALTH SERVICE WORKER - 08/19/2023 8:00 AM EST Meagan Bolanos presents to clinic for surgical follow up. Meagan is a 48 yo female with PMH of Anjel fundoplication, with recurrent epigastric pain, laparoscopic revision. Pt reports she had a anjel fundoplication in 2010, developed acute cholecystitis shortly thereafter and underwent laparoscopic cholecystectomy. She then developed persistent epigastric pain, dysphagia and bloating. She then underwent redo laparoscopic Anjel fundoplication in 2012(Ange). In 2018 underwent laparoscopic revision, with partial gastrectomy and Analia-en-Y reconstruction. She subsequently developed worsening GERD, with epigastric pain.She presented to Dr Cassidy' clinic in June with complaints of recurrent abdominal pain and GERD symptoms despite her conversion togastric bypass anatomy. In addition there was concern for possible intermittent internal herniation. 07/16/23: Laparoscopy with biopsy single or multiple, EGD upper GI endoscopy-Trus Findings: Adhesions from Analia limb to JJ causing kinking of the Analia limb. 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 Small hiatal hernia. Today Meagan returns for hospital check.She reports the following:persistent epigastric pain of many years, radiating to RUQ and back, associated with meals occurring about an hour after eating however has also occurred at night. Described the pain as raw, like my guts are being ripped out lasting from 5-60 minutes at a time, resolving on its own.No aggravating factors, is sometime relieved by leaning forward. She has tried rolaids with occasional relief. Reports she has no energy. Otherwise no fevers, nausea or vomiting, denies any weight loss dark or bloody stools. She is able to eat, she is moving her bowels and voiding without difficulty. Denies any diarrhea or steatorhea. Denies any dark urine or acholic stools. Reports she has been taking omeprazole 40mg TID, she is taking Ferrous sulfate 325mg QD as well. EXAM: Non toxic appearing, moves easily about the exam room and onto the exam table. Sclera clear non icteric there is no jaundice. Abdomen is soft mildly tender over her epigastrium and right subcostal margin. Incisions are nicely healed there is no erythema or fluctuance. Impression/plan: -mesenteric duplex to evaluate for arterial stenosis -DC omeprazole, begin pantoprazole 40mg QD, may take Pepcid for breakthrough GERD symptoms -CBC, CMP, Lipase, Iron studies Seen with Dr Cassidy above reviewed with pt, she is pleased with this plan Addendum: Labs: 08/19/23: WBC:5.7 hgb:11.5 hct;36.2 Plat:257 Na;140 K:4.2 CL:104 CO2:27 Bun:8 Cre:0.78 Ca:9.2 Glu:86 Iron:60 TIBC:460 Iron saturation:13 Ferritin:[address] Cassidy, today's labs seem to be in keeping with her labs in June drawn by her PCP. Per Dr Cassidy plan for now it to await the pt's mesenteric duplex, at this point we would not pursue Iron infusion but will defer this to Meagan's PCP. I called Meagan samanta eng above results and updated her on the plan for care. She is comfortable with this documented in this encounter Plan of Treatment Upcoming Encounters Date Type Department Care Team (Late st Contact Info) Description 06/15/2024 3:00 PM EDT Hospital Encounter [place] [address] [place] [address] 07/09/2024 8:30 AM EDT Appointment XRay at [address] [phone] Alena Pizarro [place] [address] 07/17/2024 8:00 AM EDT Procedure visit [place] [address] 08/26/2024 8:00 AM EST Office [place] [address] 08/27/2024 9:00 AM EST Clinical Support [place] [address] documented as of this encounter Procedures Procedure Name Priority Date/Time Associated Diagnosis Comments HEMOGRAM STAT 08/19/2023 9:51 AM EST Pain of upper abdomen DIFFERENTIAL, AUTOMATED STAT 08/19/2023 9:51 AM EST Pain of upper abdomen IRON AND TIBC Routine 08/19/2023 9:51 AM EST Pain of upper abdomen CBC (WITH DIFF) STAT 08/19/2023 9:51 AM EST Pain of upper abdomen LIPASE STAT 08/19/2023 9:51 AM EST Pain of upper abdomen FOLATE, SERUM Routine 08/19/2023 9:51 AM EST Pain of upper abdomen FERRITIN Routine 08/19/2023 9:51 AM EST Pain of upper abdomen COMPREHENSIVE METABOLIC PANEL STAT 08/19/2023 9:51 AM EST Pain of upper abdomen documented in this encounter Results * Duplex Study Visceral Arteries, Comp (08/27/2023 8:44 AM EST) VB Text Report Department: Vascular Surgery Lab Patient: [id number] (MEAGAN BOLANOS) CPT: 45201 Referring Physician: JESSICA PEREYRA ?? Indications: Persistent epigastric pain associated [...] of Report VASCUBASE 08/27/2023 8:44 AM EST Jessica Pereyra HEALTH SERVICE WORKER VASCULAR ORDERABLE S VASCUBASE * Differential, Automated (08/19/2023 9:51 AM EST) Neutrophil % 55.0 % [facility] Neutrophil Absolute 3.15 1.70 - 6.10 x10(3)/[facility] Lymph % 35.5 % [facility] Lymphocytes Abs 2.0 0.9 - 3.2 x10(3)/[facility] Monocyte % 8.6 % [facility] Monocyte Abs 0.5 0.3 - 0.9 x10(3)/[facility] Eos % 0.5 % [facility] Eosinophils Abs 0.0 0.0 - 0.4 x10(3)/[facility] Basophil % 0.2 % [facility] Baso Absolute 0.0 0.0 - 0.1 x10(3)/[facility] Immature Gran % 0.20 % [facility] Comment: Immature granulocytes(IG's)percentage and absolute count will include metamyelocytes, myelocytes, and promyelocytes. Blood smears from CBCs yielding IG's will be scanned manually for concordance. If this scan disagrees with the automated IG or if promyelocytes are noted, a manual differential will be performed. Immature Gran Absolute 0.01 0.00 - 0.04 x10(3)/[facility] Blood 08/19/2023 9:51 AM EST 08/19/2023 10:12 AM EST Narrative Resulting Agency Comment Spec In Lab Jessica oTd Jayson HEALTH SERVICE WORKER HEMATOLOGY ORDERAB LES [facility] [place] [address] * (ABNORMAL) Hemogram (08/19/2023 9:51 AM EST) White Blood Cell 5.7 4.0 - 9.5 x10(3)/mc L [facility] Red Blood Cell 4.64 4.00 - 5.21 x10(6)/mc L [facility] Hemoglobin 11.5(L) 11.7 - 15.5 g/dL [facility] Hematocrit 36.2 35.7 - 45.8 % [facility] Mean Cell Volume 78.0(L) 82.6 - 94.4 fL [facility] Mean Cell Hemoglobin 24.8(L) 27.1 - 32.0 pg [facility] Mean Cell Hemoglobin Concentration 31.8 31.7 - 35.0 g/dL [facility] Platelet 257 145 - 357 x10(3)/mc L [facility] RDW Standard Deviation 36.3(L) 37.0 - 46.0 fL [facility] RDW coefficient of variation 12.8 11.5 - 14.1 % [facility] Mean Platelet Volume 10.4 7.6 - 12.9 fL [facility] NRBC% auto 0.0 % [facility] NRBC Absolute 0.000 0.000 - 0.000 x10(3)/ L [facility] Blood 08/19/2023 9:51 AM EST 08/19/2023 10:12 AM EST Narrative Resulting Agency Comment Spec In Lab Jessica Tod Jayson HEALTH SERVICE WORKER HEMATOLOGY ORDERAB LES Performing Organization Address City/[facility]/ZIP Co de Phone Number [facility] [place] [address] * (ABNORMAL) Ferritin (08/19/2023 9:51 AM EST) Ferritin 10(L) 15 - 150 ng/mL [facility] Comment: Pediatric reference ranges not verified at [facility], interpret with caution. Reference ranges for females greater than 50 years of age approach values for men, i.e., 30-400 ng/mL. Blood 08/19/2023 9:51 AM EST 08/19/2023 10:12 AM EST Narrative Resulting Agency Comment Spec In Lab Jessica Pereyra HEALTH SERVICE WORKER CHEMISTRY ORDERABL ES Performing Organization Address City/[facility] Co de Phone Number [facility] [place] [address] * Folate, serum (08/19/2023 9:51 AM EST) Folate 11.9 4.8 - 24.2 ng/mL [facility] Blood 08/19/2023 9:51 AM EST 08/19/2023 10:12 AM EST Narrative Resulting Agency Comment Spec In Lab Jessica Pereyra HEALTH SERVICE WORKER CHEMISTRY ORDERABL ES Performing Organization Address [facility] Co de Phone Number [facility] [place] [address] * (ABNORMAL) Iron and TIBC (08/19/2023 9:51 AM EST) Iron 60 30 - 150 mcg/dL [facility] TIBC 460(H) 250 - 450 mcg/dL [facility] Iron Saturation 13(L) 20 - 50 % [facility] Blood 08/19/2023 9:51 AM EST 08/19/2023 10:12 AM EST Narrative Resulting Agency Comment Spec In Lab Jessica Pereyra HEALTH SERVICE WORKER CHEMISTRY ORDERABL ES Performing Organization Address City/[facility] Co de Phone Number [facility] [place] [address] * Lipase (08/19/2023 9:51 AM EST) Lipase 57 0 - 60 unit/L [facility] Blood 08/19/2023 9:51 AM EST 08/19/2023 10:12 AM EST Narrative Resulting Agency Comment Spec In Lab Jessica Pereyra HEALTH SERVICE WORKER CHEMISTRY ORDERABL ES [facility] [place] [address] * (ABNORMAL) Comprehensive metabolic panel (non-fasting) (08/19/2023 9:51 AM EST) Glucose 86 65 - 199 mg/dL [facility] Comment:Diabetes: >=200 mg/d L plus symptoms Blood Urea Nitrogen 8 8 - 18 mg/dL [facility] Creatinine 0.78 0.70 - 1.20 mg/dL [facility] Sodium 140 135 - 145 mmol/L [facility] Potassium 4.2 3.5 - 5.0 mmol/L [facility] Comment: Please note: ??Patients with WBC >100,000 may have falsely elevated Potassium levels. ??For accurate Potassium quantification in these patients send serum separator tube (gold top) for subsequent determinations. ??Contact the Clinical Chemistry Laboratory if there are any questions. Chloride 104 98 - 107 mmol/L [facility] Carbon Dioxide 27 22 - 31 mmol/L [facility] Anion Gap 9 5 - 15 mmol/L [facility] Calcium 9.2 8.5 - 10.5 mg/dL [facility] Protein, Total 7.1 6.1 - 8.0 g/dL [facility] Albumin 4.4 3.2 - 5.2 g/dL [facility] Aspartate Aminotransferase 21 0 - 30 unit/L [facility] Alanine Aminotransferase 11 0 - 30 unit/L [facility] Alkaline Phosphatase 119(H) 35 - 105 unit/L [facility] Bilirubin, Total 0.4 0.2 - 1.3 mg/dL [facility] Est Glomerular Filtration Rate 93 >=60 mL/min/1. 73 m?? [facility] Comment: This patient's estimated GFR was [...] and symptoms in addition to eGFR. Blood 08/19/2023 9:51 AM EST 08/19/2023 10:12 AM EST Narrative Resulting Agency Comment Spec In Lab Jessica M Jayson HEALTH SERVICE WORKER CHEMISTRY ORDERABL ES Performing Organization Address City/State/[facility] Co de Phone Number [facility] [place] [address] documented in this encounter Visit Diagnoses Diagnosis Pain of upper abdomen Abdominal pain, other specified site documented in this encounter Care Teams Web Services Manager Relationship Specialty Start Date End Date Mike Goodman DNP [address] [place] [id number] PCP - General Family Medicine 08/22/22 documented as of this encounter
--- OUTSIDE RECORDS SUMMARY | 2024-06-12 13:41 | XMS_ITS | Encounter Summary ---
Author Organization [facility] [place] [address] Care Team Providers Care Fire Hydrant Operator Name Role Phone Mike Goodman DNP Primary Care Provider [phone]- [phone] Encounter Details Date Type Department Care Team (Late st Contact Info) Description 10/01/2023 Orders Only [place]ematology [place] [address] [facility] [place] [address] Family history of malignant neoplasm of breast; Family history of malignant neoplasm of ovary Social History Tobacco Use Types Packs/Day Years [...] PM EDT Hospital [place] [address] [place] [address] 07/09/2024 8:30 AM EDT Appointment XRay at [address] [address] [place] [address] 07/17/2024 8:00 AM EDT Procedure [place] [address] 08/26/2024 8:00 AM EST Office Visit [place] [address] 08/27/2024 9:00 AM EST Clinical Support [place] [address] documented as of this encounter Results * Research Venipuncture (10/01/2023 2:12 PM EST) Research Venipuncture Drawn [facility] Blood 10/01/2023 2:12 PM EST 10/01/2023 2:35 PM EST Narrative Resulting Agency Comment Spec In Lab Amalia Pendleton CLINICAL PHLEBOTOMIST CHEMISTRY ORDERABLE S [facility] [place] [address] documented in this encounter Visit Diagnoses Diagnosis Family history of malignant neoplasm of breast Family history of malignant neoplasm of ovary documented in this encounter Care Teams Fire Hydrant Operator Relationship Specialty Start Date End Date Mike Goodman DNP [address] [place] [address] PCP - General Family Medicine 08/22/22 documented as of this encounter
--- OUTSIDE RECORDS SUMMARY | 2024-06-12 13:41 | XMS_ITS | Encounter Summary ---
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 Social History Tobacco Use Types Packs/Day Years Used Date Smoking Tobacco: Former Cigarettes Q uit: 12/03/2003 Smokeless Tobacco: Never Alcohol Use Standard Drinks/Week Comments No 0 (1 standard drink = 0.6 oz pur e alcohol) [facility] Inpatient Questions Answer Date Recorded Does Anyone [...] PM EDT Hospital [place] [address] [place] [address] 07/09/2024 8:30 AM EDT Appointment XRay at [address] [address] Alena Pizar[place] [address] 07/17/2024 8:00 AM EDT Procedure [place] [address] 08/26/2024 8:00 AM EST Office [place] [address] 08/27/2024 9:00 AM EST Clinical [place] [address] documented as of this encounter Procedures Procedure Name Priority Date/Time Associated Diagnosis Comments PTH Routine 10/01/2023 3:56 PM EST 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 130 ?H ?U/L ?? 35 - 104 ??Liver 1 % ? 49.0 ?% ? 27.8-76.3 ??Liver 1 ? 63.7 ?IU/L ??16.2-70.2 ??Liver 2 % ? 6.2 ? % ? 0.0-8.0 ??Liver 2 ? 8.1 ?H ?IU/L ??0.0-5.8 ??Bone % ?44.8 ?% ? 19.1-67.7 ??Bone ?58.2 ? H ?IU/L ??12.1-42.7 ??Intestine % ? 0.0 ? % ? 0.0-20.6 ??Intestine ? 0.0 ? IU/L ??0.0-11.0 ??Placental ? Not Present ? Not present ?Test Performed by: ?[facility] ?[address] [place] [address] ?Physicians And Surgeons: Didier Botello M.D. Ph.D.; CLIA# [id number]) [facility] Blood Venous Draw / Unknown 10/01/2023 3:56 PM EST 10/02/2023 3:29 PM EST Narrative Resulting Agency Comment Spec In Lab Piotr Carolina MD LAB SEND OUT ORDERAB LES Performing Organization Address [facility] de Phone Number [facility] [place] [address] * Calcium (10/01/2023 3:56 PM EST) Calcium 9.8 8.5 - 10.5 mg/dL [facility] Blood 10/01/2023 3:56 PM EST 10/01/2023 4:07 PM EST Narrative Resulting Agency Comment Spec In Lab Piotr Carolina MD CHEMISTRY ORDERABLES Performing Organization Address [facility] de Phone Number [facility] [place] [address] * Phosphorus (10/01/2023 3:56 PM EST) Phosphorus 3.4 2.5 - 4.5 mg/dL [facility] Blood 10/01/2023 3:56 PM EST 10/01/2023 4:07 PM EST Narrative Resulting Agency Comment Spec In Lab Piotr Carolina MD CHEMISTRY ORDERABLES Performing Organization Address City/[facility]/ZIP Co de Phone Number [facility] [place] [address] * (ABNORMAL) PTH (10/01/2023 3:56 PM EST) Parathyroid Hormone 71(H) 15 - 65 pg/mL [facility] Blood 10/01/2023 3:56 PM EST 10/01/2023 4:07 PM EST Narrative Resulting Agency Comment Spec In Lab Piotr Carolina MD CHEMISTRY ORDERABLES Performing Organization Address City/[facility] Co de Phone Number [facility] [place] [address] documented in this encounter Visit Diagnoses Diagnosis 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
--- OUTSIDE RECORDS SUMMARY | 2024-06-12 13:41 | XMS_ITS | Encounter Summary ---
Author Organization [facility] [place] [address] Care Team Providers Care Motor Grader Rough Grade Name Role Phone Mike Goodman DNP Primary Care Provider [phone] Encounter Details Date Type Department Care Team (Late st Contact Info) Description 10/20/2023 Patient Outreach Hematology [place] [phone] Kathy Montoya Social History Tobacco Use Types Packs/Day Years Used Date Smoking Tobacco: Former Cigarettes Q uit: 12/03/2003 Smokeless Tobacco: Never Alcohol Use Standard Drinks/Week Comments No 0 (1 standard drink = 0.6 oz pur e alcohol) [facility] Utilities Answer Date Recorded In the [...] encounter Miscellaneous Notes * Telephone Encounter - Kathy Montoya - 10/20/2023 8:49 AM EST Community Health Tipple Engineer sent this letter to patient ,due to SDOH+ screen and being seen for non cancer patient visit. Dear Patient, 10/20/2023 Thank you for your recent visit to [facility]. We recognize that many things beyond medical care affect your health and wellbeing. During your recent visit, you completed the Social Determinants of Health questionnaire. Your responses indicate that you would like information about assistance programs and community resources. 211 is a great resource. [place] 211 and [place] 211 offer [place] and [place] residents detailed descriptions about programs and services provided by local community groups. A specially trained Information and Beauty Parlor Cleaner will guide and assist you. 211 can provide contact information for State resources for: Housing services including homelessness, rental assistance, fuel assistance, utilities and housing expenses Food services including food stamps, finding food, and Meals on Wheels Health related services including health insurance, health care assistance, mental health and COVID-19. Other services including transportation, child care associate teacher, aging and senior services, legal assistance, paying bills and much more. Call 211 by dialing 2-1-1 available 24 hours/7 days a week. If you are worried about your safety, call one of the toll-free numbers for your location to get help that is free and confidential: [place] hotline [place] hot[place] hotline [place] hotline Call 911 if you are in immediate danger. You may contact me if you would like a free consult, at your next scheduled appointment at [facility]. Kathy Montoya Community Health Tipple Engineer Included my contact information documented in this encounter Plan of Treatment Upcoming Encounters Date Type Department Care Team (Late st Contact Info) Description 06/15/2024 3:00 PM EDT Hospital [place] [address] Alena Pizarro [employer] [place] [address] 07/09/2024 8:30 AM EDT Appointment XRay at [address] [address] [place] [address] 07/17/2024 8:00 AM EDT Procedure [place] [address] 08/26/2024 8:00 AM EST Office Visit [place] [address] 08/27/2024 9:00 AM EST Clinical Support [place] [address] documented as of this encounter Visit Diagnoses Not on filedocumented in this encounter Care Teams Motor Grader Rough Grade Relationship Specialty Start Date End Date Mike Goodman DNP [address] [place] [address] PCP - General Family Medicine 08/22/22 documented as of this encounter
--- OUTSIDE RECORDS SUMMARY | 2024-06-12 13:41 | XMS_ITS | Encounter Summary ---
Author Organization [facility] [place] [address] Care Team Providers Care Relations Manager Name Role Phone Mike Goodman DNP Primary Care Provider +1 [phone] Encounter Details Date Type Department Care Team (Latest Contact Info) Description 08/14/2023 Travel Social History Tobacco Use Types Packs/Day [...] PM EDT Hospital [place] [address] [place] [address] 07/09/2024 8:30 AM EDT Appointment XRay at [address] [phone] [place] [address] 07/17/2024 8:00 AM EDT Procedure visit [place] [address] 08/26/2024 8:00 AM EST Office [place] [address] 08/27/2024 9:00 AM EST Clinical [place] [address] documented as of this encounter Visit Diagnoses Not on filedocumented in this encounter Care Teams Relations Manager Relationship Specialty Start Date End Date Mike Goodman DNP [address] [place] [address] [place] [address] PCP - General Family Medicine 08/22/22 documented as of this encounter
--- OUTSIDE RECORDS SUMMARY | 2024-06-12 13:41 | XMS_ITS | Encounter Summary ---
Author [place] [address] Care Team Providers Care Timber Surveyor Name Role Phone Mike Goodman KYLE Primary Care Provider [phone] Reason for Visit * Consultation (Routine) - Closed Specialty Diagnoses / Procedures Referred By Martha broussard Referred To Contact Endocrinology Diagnoses Vitamin D deficiency Senait Rico, AGING ROOM OPERATOR [facility] [place] [address] [facility] Endocrinology [address] [place] [phone] Referral ID Status Reason Start Date Expiration Date V isits Requested Visits Authorized [id number] Closed Consult, Test & Treat 09/10/2023 09/09/2024 1 1 Encounter Details Date Type Department Care Team (Latest Contact Info) Description 10/01/2023 3:00 PM EST Office [place] [address] Piotr Carolina MD 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 No 10/16/2023 DH IPV Inpatient [...] Reading Time Taken Comments Blood Pressure 109/71 10/01/2023 2:40 PM EST Pulse 86 10/01/2023 2:40 PM EST Temperature 36.8 ??C (98.2 ??F) 10/01/2023 2:40 PM ES T Respiratory Rate - - Oxygen Saturation 97% 10/01/2023 2:40 PM EST Inhaled Oxygen Concentration - - Weight 68.5 kg (151 lb) 10/01/2023 2:40 PM EST Height 154.9 cm (5' 1) 10/01/2023 2:40 PM EST Body Mass Index 28.53 10/01/2023 2:40 PM EST documented in this encounter Progress Notes * Piotr Carolina MD - 10/01/2023 3:00 PM EST Endocrine Consult I have reviewed the patient's medical history, past medical history and problem list, family medical history, social history, medications, allergies, laboratory values, imaging, as well as any outside medical records pertinent to this call incorporated into our EHR, in detail and am summarizing thepertinent relative facts below. 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 She underwent this procedure 3 to 4 years ago and initially lost 54 pounds of weight. Over the years she has gradually regained 23 of those pounds back. She continued to have significant problems with gastroesophageal reflux and underwent a Magdaleno fundoplication which initially worked well but then needed repair and redo on a second occasion. However since her partial gastrectomy she has had ongoing problems maintaining her vitamin D levelsshe has had documented vitamin D levels that have been low for the past several years. She saw my colleague here back in 2017 and had very low vitamin D levels at that time. She presents today upon referral after she was found to have an elevation in her PTH to 92 with a very low 25-hydroxy vitamin D level of 13. This was associated with an increased alkaline phosphatase, a normal serum calcium at 9.3 and a normal EGFR and liver function tests. At her return today the patient reports that she is having rather diffuse bone pain in her spine arms and legs. She notes that she has continuous loose stools in which she often sees fat droplets suggesting Steatorrhea. She also notes difficulties with her teeth breaking easily and has undergone a DEXA scan in [facility] in November 2022 which showed osteopenia with a T- score of -1.9 at the left hip and -2.1 at the left spine. All of these difficulties continued despite efforts at significant calcium and vitamin D supplementation. She currently is using the bariatric advantage multivitamin that contains 5000 international units of vitamin D daily and in addition supplements with 50,000 units of vitamin D every 3 days. Her bariatric multivitamin contains calcium and she is also using calcium citrate chews initially at 3tablets (believe 500 g) daily which was recently reduced by her bariatric surgeon to 2 tablets daily. PMHx: Status post hysterectomy Status post fundoplication Status postcholecystectomy History of prediabetes History of syncope Analia-en-Y Patient Active Problem List Diagnosis Code Gastroesophageal reflux K21.9 Dyspepsia R10.13 Disorder of female genital organ N94.9 Endometriosis of other specified sites N80.8 Nausea R11.0 S/P partial gastrectomy Z90.3 Paroxysmal SVT (supraventricular tachycardia) I47.10 Chest pressure R07.89 Lipid screening Z13.220 FamHx: No known family history of osteomalacia. She tells me that both her brother and her mother from blood clots resulting in stroke rendering them panhypopit There was also a family history of hemophilia on her father side Meds: Tells me medications were recently changed in terms of calcium and vitamin D D supplementation Using bariatric advantage multivitamin containing 5000 international units of vitamin D and calcium Calcium citrate chews 500 mg 2 chews daily with meals Additional vitamin D 50,000 units every 3 days pantoprazole EC (Protonix) [address] tablet oxyCODONE (Roxicodone) 5 mg tablet ferrous sulfate (FeroSul) 325 mg (65 mg iron) tablet acetaminophen (Tylenol) 325 mg tablet calcium carbonate (Tums) 200 mg calcium (500 mg) Tablet, Chewable Calcium Carbonate-Mag Hydroxid (Rolaids) 550-110 mg Tablet, Chewable epiNEPHrine 0.15 mg/0.15 mL Cmpk combo pack Allergies: Allergies Allergen Reactions Onion Anaphylaxis Bupropion Hcl Other (See Comments) serum sickness Metoclopramide Hcl Other (See Comments) Unknown R.O.S. Notes loose fatty stools chronically Multiple complaints of bone pain Phys. Exam: Vitals: Patient Vitals for the past 24 hrs: Temp Pulse BP SpO2 10/01/23 1440 36.8 ??C (98.2 ??F) 86 109/71 97 % There were no vitals filed for this visit. General: In no acute distress. HEENT: NCAT, PERRL, EOMI, Sclera non-icteric No thyroid goiter, no cervical lymphadenopathy Chest: Clear to auscultation without rales, rubs or rhonchi CV: Regular rate and rhythm without murmurs rubs or gallops Abd: Soft nontender, she does have CVA spinal tenderness to percussion Extrem: No clubbing cyanosis or edema, pain on palpation over her tibia but no shireen Bowing Neuro: General nonfocal neurologic examination Skin: No focal skin breakdown rash or ulceration in the distal lower extremities or feet LABS: Calcium 9.3 Albumin 4.5 PTH 92 Alkaline phosphatase 135 Estimated GFR 98 Outside ALT normal Assessment & Plan: 1. 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 At this juncture she has developed secondary hyperparathyroidism likely due to vitamin D deficiencyfrom malabsorption and I worry she now has osteomalacia as well which would explain her ongoing bone pain. Unfortunately as best I can ascertain we no longer have access to intravenous vitamin D infusions as these have been taken off the market. There is also an intramuscular injection of vitamin D but weare unable to obtain this on another patient in the recent past. Given that her D deficiency is likely related to gut malabsorption one of the few remaining solutions may be to recommend that she regularly attend a tanning garcia and maintain a 10 to generate normal vitamin D stores. We realize this increases skin exposure, skin aging and risk of skin cancer but given her severe symptoms and possible osteomalacia and documented osteopenia that such extreme measures are warranted. I will assess a repeat calcium this time with a phosphorus as well as a PTH and to ensure that directionally this is not contributing to worsen. Will also likely obtain a 24-hour urinary calcium to better gauge her calcium intake and inability to absorb. Will investigate possible alternative avenues for vitamin D supplementation but in the interim it may be reasonable to attend a tanning garcia weekly obtain a healthy full body 10 and reassess her vitamin D levels after 3 months. She can then contact me through the portal and we will reassess her vitamin D, Calcium, Phosphorus and parathyroid hormone at that time. A note will be sent to the referring provider It was a pleasure to be involved in the care of Mora Bolanos. If you have any questions aboutthe management and treatment plan as outlined above, or if I can be of further assistance, please do not hesitate to contact me. Sincerely, Piotr Carolina MD Endocrinology Section [facility] Total time for this visit encompassing extensive and thorough chart review and previsit planning aswell as examination counseling and education of the patient and coordination of care = 75 minutes. documented in this encounter Plan of Treatment Upcoming Encounters Date Type Department Care Team (Late st Contact Info) Description 06/15/2024 3:00 PM EDT Hospital [place] [address] [place] [address] 07/09/2024 8:30 AM EDT Appointment XRay at [address] [address] [place] [address] 07/17/2024 8:00 AM EDT Procedure [place] [address] 08/26/2024 8:00 AM EST Office [place] [address] 08/27/2024 9:00 AM EST Clinical [place] [address] documented as of this encounter Results * (ABNORMAL) PTH (10/01/2023 3:56 PM EST) Parathyroid Hormone 71(H) 15 - 65 pg/mL [facility] Blood 10/01/2023 3:56 PM EST 10/01/2023 4:07 PM EST Narrative Resulting Agency Comment Spec In Lab Piotr Carolina MD CHEMISTRY ORDERABLES Performing Organization Address City/[facility] Co de Phone Number [facility] [place] [address] * Phosphorus (10/01/2023 3:56 PM EST) Phosphorus 3.4 2.5 - 4.5 mg/dL [facility] Blood 10/01/2023 3:56 PM EST 10/01/2023 4:07 PM EST Narrative Resulting Agency Comment Spec In Lab Piotr Carolina MD CHEMISTRY ORDERABLES Performing Organization Address City/[facility] Co de Phone Number [facility] [place] [address] * Calcium (10/01/2023 3:56 PM EST) Calcium 9.8 8.5 - 10.5 mg/dL [facility] Blood 10/01/2023 3:56 PM EST 10/01/2023 4:07 PM EST Narrative Resulting Agency Comment Spec In Lab Piotr Carolina MD CHEMISTRY ORDERABLES Performing Organization Address [facility] Co de Phone Number [facility] [place] [address] documented in this encounter Visit Diagnoses Diagnosis 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
--- OUTSIDE RECORDS SUMMARY | 2024-06-12 13:41 | XMS_ITS | Encounter Summary ---
Author Organization [facility] Address [facility] [place] [address] Care Team Providers Care Shank Faker Name Role Phone Mike Goodman DNP Primary Care Provider [phone] Encounter Details Date Type Department Care Team (Latest Contact Info) Description 10/16/2023 Travel Social History Tobacco Use Types Packs/Day Years Used Date Smoking Tobacco: Former Cigarettes Q uit: 12/03/2003 Smokeless Tobacco: Never Alcohol Use Standard Drinks/Week Comments No 0 (1 standard drink = 0.6 oz pur e alcohol) [facility] Utilities Answer Date Recorded In the past [...] place to sleep or slept in a [place] health [place] facility (including now)? No 10/16/2023 IPV Inpatient Questions [...] PM EDT Hospital [place] [address] Alena Pizar[place] [address] 07/09/2024 8:30 AM EDT Appointment XRay at [address] [address] Alena Pizar[place] [address] 07/17/2024 8:00 AM EDT Procedure [place] [address] 08/26/2024 8:00 AM EST Office [place] [address] 08/27/2024 9:00 AM EST Clinical Support Gastroenterology at [place] [phone] documented as of this encounter Visit Diagnoses Not on filedocumented in this encounter Care Teams Shank Faker Relationship Specialty Start Date End Date Mike Goodman DNP [address] [place] [address] PCP - General Family Medicine 08/22/22 documented as of this encounter
--- OUTSIDE RECORDS SUMMARY | 2024-06-12 13:41 | XMS_ITS | Encounter Summary ---
Author Organization [facility] Address [facility] [place] [address] Care Team Providers Care Legal Services Manager Name Role Phone Mike Goodman DNP Primary Care Provider [phone] [phone] Encounter Details Date Type Department Care Team (Late st Contact Info) Description 08/19/2023 Orders [place] [address] Jessica Tyler, AUTOMATIC WINDER OPERATOR [facility] [place] [address] Social History Tobacco Use Types Packs/Day Years [...] PM EDT [place] [address] Alena Pizarro AUTOMATIC [place] [address] 07/09/2024 8:30 AM EDT Appointment XRay at [address] [address] Alena Pizar[place], [place] [address] 07/17/2024 8:00 AM EDT Procedure [place] [address] 08/26/2024 8:00 AM EST Office [place] [address] 08/27/2024 9:00 AM EST Clinical [place] [address] documented as of this encounter Visit Diagnoses Not on filedocumented in this encounter Care Teams Legal Services Manager Relationship Specialty Start Date End Date Mike Goodman DNP [address] [place] [address] PCP - General Family Medicine 08/22/22 documented as of this encounter
--- OUTSIDE RECORDS SUMMARY | 2024-06-12 13:41 | XMS_ITS | Encounter Summary ---
Author Organization [facility] [place] [address] Care Team Providers Care Forest Ranger Name Role Phone Mike Goodman DNP Primary Care Provider [phone] Encounter Details Date Type Department Care Team (Latest Contact Info) Description 08/27/2023 Travel Social History Tobacco Use Types Packs/Day [...] PM EDT Hospital [place] [address] [place] [address] 07/09/2024 8:30 AM EDT Appointment XRay at [address] [phone] [place] [address] 07/17/2024 8:00 AM EDT Procedure [place] [address] 08/26/2024 8:00 AM EST Office [place] [address] 08/27/2024 9:00 AM EST Clinical [place] [address] documented as of this encounter Visit Diagnoses Not on filedocumented in this encounter Care Teams Forest Ranger Relationship Specialty Start Date End Date Mike Goodman DNP [address] [place] [address] [place] [address] PCP - General Family Medicine 08/22/22 documented as of this encounter
--- OUTSIDE RECORDS SUMMARY | 2024-06-12 13:41 | XMS_ITS | Encounter Summary ---
Author Organization [place] [address] Care Team Providers Care Medical Scientific Officer Name Role Phone Mike Goodman DNP Primary Care Provider [phone] [phone] Encounter Details Date Type Department Care Team (Latest Contact Info) Description 10/01/2023 Travel Social History Tobacco Use Types Packs/Day [...] Hospital [place] [address] [place] [address] 07/09/2024 8:30 AM EDT Appointment XRay at [address] [phone] [place] [address] 07/17/2024 8:00 AM EDT Procedure [place] [address] 08/26/2024 8:00 AM EST Office [place] [address] 08/27/2024 9:00 AM EST Clinical [place] [address] documented as of this encounter Visit Diagnoses Not on filedocumented in this encounter Care Teams Medical Scientific Officer Relationship Specialty Start Date End Date Mike Goodman DNP [address] [place] [address] [place] [address] PCP - General Family Medicine 08/22/22 documented as of this encounter
--- OUTSIDE RECORDS SUMMARY | 2024-06-12 13:41 | XMS_ITS | Encounter Summary ---
[place] [address] Care Team Providers Care Registered Respiratory Technician Name Role Phone Mike Goodman DNP Primary Care Provider Encounter Details Date Type Department Care Team (Late st Contact Info) Description 08/19/2023 9:45 AM EST Laboratory Appointment Lab [place] [address] Social History Tobacco Use Types Packs/Day Years Used Date Smoking Tobacco: Former Cigarettes Q uit: 12/03/2003 Smokeless Tobacco: Never Alcohol Use Standard Drinks/Week Comments No 0 (1 standard drink = 0.6 oz pur e alcohol) [facility] Inpatient Questions Answer Date Recorded Does Anyone [...] PM EDT Hospital [place] [address] Alena Pizarro [place] [address] 07/09/2024 8:30 AM EDT Appointment XRay at [address] [address] [place] [address] 07/17/2024 8:00 AM EDT Procedure visit [place] [address] 08/26/2024 8:00 AM EST Office [place] [address] 08/27/2024 9:00 AM EST Clinical [place] [address] documented as of this encounter Visit Diagnoses Not on filedocumented in this encounter Care Teams Registered Respiratory Technician Relationship Specialty Start Date End Date Mike Goodman DNP [address] [place] [address] PCP - General Family Medicine 08/22/22 documented as of this encounter
--- OUTSIDE RECORDS SUMMARY | 2024-06-12 13:41 | XMS_ITS | Encounter Summary ---
Author Organization [facility] Address [facility] [place] [address] Care Team Providers Care Curing Finisher Name Role Phone Mike Goodman KYLE Primary Care Provider [phone] Reason for Visit * Reason Comments IV Medication * Treatment/Therapy Plan Authorization (Routine) - Pending Review Specialty Diagnoses / Procedures Referred By Martha t Referred To Contact Hematology and Oncology Diagnoses Iron deficiency anemia due to chronic blood loss Procedures TC FERRIC DERISOMALTOSE, 10 MG, INJ Ferric Derisomaltose (Monoferric) Infusion ([facility], [place]CHEL, LUZMA, NDP, [facility], [facility]) Iron Deficiency Anemia - Leobardo Ricci MD [facility] DR HEMATOLOGY [place] [address] Stj Hem Onc Infusion [address] [place] [phone] Referral ID Status Reason Start Date Expiration Date V isits Requested Visits Authorized [id number] Pending Review 10/16/2023 10/15/2024 1 100 Encounter Details Date Type Department Care Team (Late st Contact Info) Description 10/16/2023 11:45 AM EST Infusion Hematology Oncology at [address] [address] Iron deficiency anemia due to chronic blood loss Social History Tobacco Use Types Packs/Day Years Used Date Smoking Tobacco: Former Cigarettes Q uit: 12/03/2003 Smokeless Tobacco: Never Alcohol Use Standard Drinks/Week Comments No 0 (1 standard drink = 0.6 oz pur e alcohol) [facility] Utilities Answer Date Recorded In the [...] in a longterm (including now)? No 10/16/2023 DH IPV Inpatient [...] as of this encounter Progress Notes * Kisha Arita, RN - 10/16/2023 11:45 AM EST Mora Bolanos, 48 y.o. female with diagnosis of PAULA is here for chemotherapy infusion of Monoferric. S: Pt. offers no complaints at this time. O: Chemotherapy orders independently verified for correct drug name, route and dosage per patient'sheight, weight and BSA by Kisha Arita RN and onsite pharmacist REACTIONS (DESCRIPTION, TIME, INTERVENTION AND EFFECTIVENESS) none A: Pt. Tolerated treatment well. Mora Kanika Cici confirms that all questions and issues have been addressed. P: Return to clinic per routine documented in this encounter Plan of Treatment Upcoming Encounters Date Type Department Care Team (Late st Contact Info) Description 06/15/2024 3:00 PM EDT Hospital [place] [address] [place] [address] 07/09/2024 8:30 AM EDT Appointment XRay at [address] [address] [place] [address] 07/17/2024 8:00 AM EDT Procedure [place] [address] 08/26/2024 8:00 AM EST Office [place] [address] 08/27/2024 9:00 AM EST Clinical [place] [address] documented as of this encounter Visit Diagnoses Diagnosis Iron deficiency anemia due to chronic blood loss Iron deficiency anemia secondary to blood loss (chronic) documented in this encounter Administered Medications Inactive Administered Medications - up to 3 most recent administrations Medication Order MAR Action Action Date Dose Rate Site ferric derisomaltose (Monoferric) 1,000 mg in sodium chloride 0.9% 110 mL infusion 1,000 mg, Intravenous, ONCE, 1 dose, On Germania 10/16/23 at 1245, Administer over 20 Minutes, Administer over at least 20 minutes. Monitor for 30 minutes after infusion for hypersensitivity reactions. Compatible only in sodium chloride 0.9%, FerumoxytoL (Feraheme) is the [facility] preferred IV iron product. If this product was selected in error when ordering via Therapy Plan please discontinue and reorder as Feraheme. If use of ferric derisomaltose (Monoferric) is required, please provide reason. Other (please enter in comments), Comments: 1 infusion is better than multiple, This agent is restricted to oupatient use. Is this drug being given as an outpatient? Yes New Bag 10/16/2023 12:21 PM EST 1,000 mg 330 mL/hr documented in this encounter Care Teams Curing Finisher Relationship Specialty Start Date End Date Mike Goodman DNP [address] [place] [address] PCP - General Family Medicine 08/22/22 documented as of this encounter
--- OUTSIDE RECORDS SUMMARY | 2024-06-12 13:41 | XMS_ITS | Encounter Summary ---
Author Organization Formerly [facility], Later [facility] [place] [address] Care Team Providers Care Certified Cytotechnologist Name Role Phone Mike Goodman DNP Primary Care Provider [phone] Encounter Details Date Type Department Care Team (Latest Contact Info) Description 07/29/2023 Travel Social History Tobacco Use Types Packs/Day [...] PM EDT Hospital Encounter [place] [address] [place] [address] 07/09/2024 8:30 AM EDT Appointment XRay at [address] [phone] [place] [address] 07/17/2024 8:00 AM EDT Procedure visit [place] [address] 08/26/2024 8:00 AM EST Office Visit [place] [address] 08/27/2024 9:00 AM EST Clinical Support [place] [address] documented as of this encounter Visit Diagnoses Not on filedocumented in this encounter Care Teams Certified Cytotechnologist Relationship Specialty Start Date End Date Mike Goodman DNP [address] [place] [address] [place] [address] PCP - General Family Medicine 08/22/22 documented as of this encounter
--- OUTSIDE RECORDS SUMMARY | 2024-06-12 13:41 | XMS_ITS | Encounter Summary ---
Author Organization Formerly [facility] Address [facility] [place] [address] Care Team Providers Care Health Lead Name Role Phone Mike Goodman DNP Primary Care Provider [phone] Reason for Referral * Consultation (Routine) - Closed Specialty Diagnoses / Procedures Referred By Martha broussard Referred To Contact Endocrinology Diagnoses Vitamin D deficient osteomalacia Zahida Interiano MD [facility] [place] [address] Roxana Webb MD [facility] [place] [address] Referral ID Status Reason Start Date Expiration Date V isits Requested Visits Authorized [id number] Closed Consult, Test & Treat 02/11/2024 02/10/2025 1 1 Encounter Details Date Type Department Care Team (Latest Contact Info) Description 02/11/2024 11:30 AM EDT TH Visit (TeleHealth) [place] [address] Zahida Interiano MD Vitamin D deficient osteomalacia Social History Tobacco Use Types Packs/Day Years Used Date Smoking Tobacco: Former Cigarettes Q uit: 12/03/2003 Smokeless Tobacco: Never Alcohol Use Standard Drinks/Week Comments No 0 (1 standard drink = 0.6 oz pur e alcohol) [facility] Utilities Answer Date Recorded In [...] as of this encounter Progress Notes * Zahida Interiano MD - 02/11/2024 11:30 AM EDT Video Interim Follow-up Appt for Low Vit D and concern for Osteomalacia/Osteoporosis : Reviewed interim progress with her vitamin D replace placement and bone status with Ms. Cici bruce today. 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 She never did complete the 24-hour urine calcium to assess the adequacy of calcium intake and absorption. Because repeated attempts at even high-dose vitamin D replacement did not result in adequate levelswe had actually recommended trying to circumvent the GI route by having her make vitamin D through exposure to her skin by using a tanning garcia 3 times weekly. Her local physicians had continue to monitor PTH levels which had been progressively dropping potentially signifying improvement. PTH levels dropped from 92 pg/mL 5 months ago to 71 pg/mL 4 months ago to 58 pg/mL 1 month ago (normal limits 19-88 pg/mL). Unfortunately the patient reports that she continues to feel poorly with rather diffuse bone pain. In addition she reports that she recently had her vitamin D 3 level checked which was still quite low at 9.6 along with an elevated alkaline phosphatase of 134. A/P: 1. Status post Analia-en-Y gastric bypass with malabsorption and low vitamin D with potential for osteomalacia/osteoporosis: At this point would have her continue with a tanning garcia to supplement her vitamin D while also taking 50,000 units of vitamin D3 three times weekly. She should supplement her diet with an additional 1200 mg of calcium citrate daily in divided doses. We will then reassess her 24-hour urine calcium, serum calcium and phosphorus, alkaline phosphatase, PTH, creatinine, and ALT along with obtaining a full DEXA scan. I will then arrange for her to see one of my mold maintenance technician colleagues who is a specialist in boneand calcium disorders. Total time taken to review the chart, notes and labs, interviewed the patient, and coordinate ongoing testing and her future care 30 minutes documented in this encounter Plan of Treatment Upcoming Encounters Date Type Department Care Team (Late st Contact Info) Description 06/15/2024 3:00 PM EDT Hospital [place] [address] [place] [address] 07/09/2024 8:30 AM EDT Appointment XRay at [address] [phone] Alena Pizarro TEAM FOREM[employer] [facility] [place] [address] 07/17/2024 8:00 AM EDT Procedure visit [place] [address] 08/26/2024 8:00 AM EST Office [place] [address] 08/27/2024 9:00 AM EST Clinical Support [place] [address] Scheduled Orders Name Type Priority Associated Diagnoses Orde r Schedule Calcium, urine, 24 hour Lab Routine Vitamin D deficient osteomalacia Expected: 02/11/2024, Expires: 08/12/2024 Scheduled Referrals Name Type Priority Associated Diagnoses Orde r Schedule Referral to Endocrinology Outpatient Referral Routine Vitamin D deficient osteomalacia Ordered: 02/11/2024 documented as of this encounter Results * (ABNORMAL) PTH (03/01/2024 3:28 PM EDT) [facility] Parathyroid Hormone 76(H) 15 - 65 pg/mL [facility] Blood 03/01/2024 3:28 PM EDT 03/01/2024 3:48 PM EDT Narrative Resulting Agency Comment Spec In Lab Zahida Interiano MD CHEMISTRY ORDERABLES [facility] [place] [address] * Phosphorus (03/01/2024 3:28 PM EDT) [facility] Phosphorus 3.9 2.5 - 4.5 mg/dL [facility] Blood 03/01/2024 3:28 PM EDT 03/01/2024 3:48 PM EDT Narrative Resulting Agency Comment Spec In Lab Zahida Interiano MD CHEMISTRY ORDERABLES [facility] [place] [address] * (ABNORMAL) Comprehensive metabolic panel (non-fasting) (03/01/2024 3:28 PM EDT) Glucose 91 65 - 199 mg/dL [facility] Comment:Diabetes: >=200 mg/d L plus symptoms Blood Urea Nitrogen 6(L) 8 - 18 mg/dL [facility] Creatinine 0.78 0.70 - 1.20 mg/dL [facility] Sodium 143 135 - 145 mmol/L [facility] Potassium 4.2 3.5 - 5.0 mmol/L [facility] Comment: Please note: ??Patients with WBC >100,000 may have falsely elevated Potassium levels. ??For accurate Potassium quantification in these patients send serum separator tube (gold top) for subsequent determinations. ??Contact the Clinical Chemistry Laboratory if there are any questions. Chloride 104 98 - 107 mmol/L [facility] Carbon Dioxide 28 22 - 31 mmol/L [facility] Anion Gap 11 5 - 15 mmol/L [facility] Calcium 9.3 8.5 - 10.5 mg/dL [facility] Protein, Total 6.6 6.1 - 8.0 g/dL [facility] Albumin 4.1 3.2 - 5.2 g/dL [facility] Aspartate Aminotransferase 25 0 - 30 unit/L [facility] Alanine Aminotransferase 23 0 - 30 unit/L [facility] Alkaline Phosphatase 111(H) 35 - 105 unit/L [facility] Bilirubin, Total 0.3 0.2 - 1.3 mg/dL [facility] Est Glomerular Filtration Rate 93 >=60 mL/min/1. 73 m?? [facility] Comment: This patient's estimated GFR [...] Narrative Resulting Agency Comment Spec In Lab Zahida Interiano MD CHEMISTRY ORDERABLES Performing Organization Address [facility] de Phone Number [facility] [place] [address] * 1,25-dihydroxycholecalciferol (03/01/2024 3:28 PM EDT) Pathologist [facility] Vit D 1,25 Dihydroxy (JANUARY) 37 18 - 78 pg/mL [facility] Comment: ADDITIONAL INFORMATION This test was developed and its performance characteristics determined by [facility] in a manner consistent with CLIA requirements. This test has not been cleared or approved by the U.S. Food and Drug Administration. Test Performed by: [facility] - [address] [address] Luncheonette Operator: Talat Meier Ph.D.; CLIA# [id number] Blood 03/01/2024 3:28 PM EDT 03/02/2024 2:38 PM EDT Narrative Resulting Agency Comment Spec In Lab Zahida Interiano MD LAB SEND OUT ORDERAB LES [facility] [place] [address] * (ABNORMAL) Vitamin D, 25-Hydroxy (03/01/2024 3:28 PM EDT) Vitamin D Total 25 OH 18(L) 21 - 100 ng/mL [facility] Vit D Interp Deficient [facility] Blood 03/01/2024 3:28 PM EDT 03/01/2024 3:48 PM EDT Narrative Resulting Agency Comment Spec In Lab Zahida Interiano MD CHEMISTRY ORDERABLES Performing Organization Address City/[facility]/ZIP Co de Phone Number [facility] [place] [address] * DXA Central Spine, Hip, and/or Whole [...] compare with future DXA scans performed at [facility]. Prevent Fractures! PATIENTS NOT ON TREATMENT: [...] BMD measurements and plots are available in netZentry under the imaging tab. Paper copies will be sent to providers without netZentry access. If you have received this report without the data sheet and do not have access to netZentry, please contact Radiology Construction Management Instructor at [phone] Friday thru Friday 8am-4pm. ? Bone Density Report ? Name: ?Mora Bolanos Age: ? 48 Sex: ? Female Ethnicity: ? White Date of : 1975 Referring Provider: ZAHIDA INTERIANO Study: Bone densitometry was performed. Model: Follicum (S/N [id number]) version 13.6.1.3 Exam Date: March 01, 2024 Accession number: [id number] Bone Density: Region ? BMD ?T-score ??Z-score [...] who have questions please contact the health after school caregiver that requested your imaging first. ? Narrative 03/01/2024 5:16 PM EDT EXAMINATION: DXA CENTRAL SPINE, HIP, AND/OR WHOLE BODY (GENERIC) CLINICAL HISTORY: 48 years Female Low Vit D from Malabsorption ? Osteoprosis/Osteomalacia (as entered by ordering provider) TECHNIQUE: Scans were acquired at the lumbar spine, left hip and left forearm using the [employer] Horizon A system. COMPARISON: Outside hospital DXA [...] spine, left hip and leftforearm using the [employer] Horizon A system. COMPARISON: Outside hospital DXA [...] to compare with future DXA scans performedat [facility]. Prevent Fractures! PATIENTS NOT ON TREATMENT: [...] BMD measurements and plots are available in netZentryunder the imaging tab. Paper copies will be sent to providers without netZentry access.If you have received this report without the data sheet and do not haveaccess to netZentry, please contact Radiology Construction Management Instructor at [phone] Fridayrid 8am-4pm. Bone Density Report Name: Mora Bolanos Age: 48 Sex: Female Ethnicity: White Date of : 1975 Referring Provider: ZAHIDA INTERIANO Study: Bone densitometry was performed. Model: Follicum (S/N [id number]) SW version 13.6.1.3 Exam Date: March 01, 2024 Accession number: [id number] Bone Density: Region BMD T-score Z-score AP [...] patients who have questions please contactthe health after school caregiver that requested your imaging first. Zahida Interiano MD IMG DEXA ORDERABLES documented in this encounter Visit Diagnoses Diagnosis Vitamin D deficient osteomalacia Osteomalacia, unspecified Vitamin D deficient osteomalacia Osteomalacia, unspecified documented in this encounter Care Teams Health Lead Relationship Specialty Start Date End Date Mike Goodman DNP [address] [place] [address] PCP - General Family Medicine 08/22/22 documented as of this encounter
--- OUTSIDE RECORDS SUMMARY | 2024-06-12 13:41 | XMS_ITS | Encounter Summary ---
Author Organization [facility] Address [facility] [place] [address] Care Team Providers Care Administrative And Program Specialist Name Role Phone Mike Goodman KYLE Primary Care Provider Reason for Visit * Consultation (Routine) - Closed Specialty Diagnoses / Procedures Referred By Martha broussard Referred To Contact Hematology and Oncology Diagnoses Iron deficiency anemia, unspecified iron deficiency anemia type Senait Rico, [facility] [place] [address] St Hem Onc Office [address] [place] [phone] Referral ID Status Reason Start Date Expiration Date V isits Requested Visits Authorized [id number] Closed Consult, Test & Treat 09/10/2023 09/09/2024 1 1 Encounter Details Date Type Department Care Team (Late st Contact Info) Description 10/16/2023 11:00 AM EST Office Visit Hematology/Oncology at [address] [phone] Leobardo Ricci MD [facility] [place] [address] Blanca Lobo, [facility] [place] [address] Iron deficiency anemia due to chronic blood loss Social History Tobacco Use Types Packs/Day Years Used Date Smoking Tobacco: Former Cigarettes Q uit: 12/03/2003 Smokeless Tobacco: Never Alcohol Use Standard Drinks/Week Comments No 0 (1 standard drink = 0.6 oz pur e alcohol) [facility] Utilities Answer Date Recorded In the [...] to sleep or slept in a senior living (including now)? No 10/16/2023 DH IPV Inpatient [...] Sign Reading Time Taken Comments Blood Pressure 134/90 10/16/2023 11:06 AM EST Pulse 86 10/16/2023 11:06 AM EST Temperature 35.9 ??C (96.7 ??F) 10/16/2023 11:[address] Respiratory Rate 18 10/16/2023 11:06 AM EST Oxygen Saturation 99% 10/16/2023 11:06 AM EST Inhaled Oxygen Concentration - - Weight 68.9 kg (152 lb) 10/16/2023 11:06 AM EST Height 156.7 cm (5' 1.69) 10/16/2023 11:[address] Body Mass Index 28.08 10/16/2023 11:06 AM EST documented in this encounter Progress Notes * Sabina Rhodes, RN - 10/16/2023 11:[address] Medical Oncology Note SOCIAL ASSESSMENT: See [facility] social assessment information entered. 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 [ x ] yes [ ] no Local Pharmacy: No FUNCTIONAL SCREENING: Balance difficulty: [ x ]no [ ]yes At risk for fall: [ x ] no [ ] yes If yes, actions implemented to prevent fall. Patient/family instructed to avoid independent ambulation. Use wheelchair and ask for assistance of staff while in the clinic. ADL [ x] no limits [ ] needs dressing assistance [ ] needs meal assistance Assistive device:[x ]none [ ]cane [ ]walker [ ]wheelchair [ ]other: explain PAIN ASSESSMENT: [ 3 ] out of 10 Chronic Location: Description: [ ] Dull [ ] Sharp [ ] Burning [ ] Throbbing [ ] Radiating [ ] Continuous [ ] Intermittent Aggravating Factors: [ ] Movement [ ] Position [ ] Immobility [ ] Other Alleviating Factors: [ ] Medication [ ] Positioning [ ] Other Current Pain Management Plan: [ ] Satisfied [ ] Not satisfied LEARNING STYLE: Learning Needs Assessment up to date (yearly) [10/16/23 ] TEACHING: __ NCI ???Chemotherapy and You?? and folder given __ Specific chemotherapy literature provided and reviewed with patient VASCULAR ACCESS ASSESSMENT: getting chemo? [ ]yes [n ]no Need port? [ ] yes [ ] no * Leobardo Ricci MD - 10/16/2023 11:00 AM EST Subjective Patient ID: Mora Bolanos is a 48 y.o. female. HPI The patient is a 48-year-old female referred by Senait Rico APRN for consultation regarding iron deficiency anemia. I had a chance to review the available records and interviewed and examined thepatient. The patient has a long history of GI symptoms. She has had multiple evaluations by GI service. Mostrecent upper endoscopy revealed 2 small upper intestinal ulcers. She takes iron daily but it is unclear if she observes it based on her gastric bypass history. She has been documented to be iron deficient over the last several months without improvement with her oral iron. She additionally has lots of abdominal complaints which she takes the iron. She does have craving for some ice. She has not noted any active bleeding anywhere. She does feel tired. Patient Active Problem List Diagnosis Code Gastroesophageal [...] times daily.), Disp: 90 tablet, Rfl: 3 ferrous sulfate (FeroSul) 325 mg (65 mg iron) tablet, Take 325 mg by mouth 2 times daily., Disp: , Rfl: acetaminophen (Tylenol) 325 mg tablet, Take 650 [...] sickness Metoclopramide Hcl Other (See Comments) Unknown Social History Socioeconomic History Marital status: Spouse name: Not on file Number of children: Not on file Years of education: Not on file Highest education level: Not on file Occupational History Not on file Tobacco Use Smoking status: Former Packs/day: 1 Types: Cigarettes Quit date: 12/03/2003 Years since quittin.8 Smokeless tobacco: Never Vaping Use Vaping Use: Never used Substance and Sexual Activity Alcohol use: No [...] Activity: Not on file Intimate Partner Violence: Not on file Housing Stability: High Risk (10/16/2023) Housing Stability Vital Sign Unable to Pay for Housing in the Last Year: Yes Number of Places Lived in the Last Year: 1 Unstable Housing in the Last Year: No No family history on file. Review of Systems Constitutional: Positive for fatigue. Negative for fever. Respiratory: Positive for shortness of breath. Negative for cough. Cardiovascular: Negative for chest pain. Gastrointestinal: Positive for abdominal pain. Negative for blood in stool. Genitourinary: Negative for dysuria. Musculoskeletal: Negative for back pain. Neurological: Negative for seizures. Hematological: Negative for adenopathy. Objective BP 134/90 (Patient Position: Sitting) Pulse 86 Temp 35.9 ??C (96.7 ??F) (Temporal) Resp 18 Ht 156.7 cm (5' 1.69) Wt 68.9 kg (152 lb) SpO2 99% BMI 28.08 kg/m?? Physical Exam Constitutional: General: She is not in acute distress. HENT: Mouth/Throat: Mouth: Mucous membranes are moist. Eyes: General: No scleral icterus. Pulmonary: Effort: Pulmonary effort is normal. Musculoskeletal: General: No swelling. Skin: Findings: No rash. Neurological: Mental Status: She is oriented to person, place, and time. Lab Results Component Value Date WBC 6.7 09/02/2023 RBC 4.72 09/02/2023 HGB 11.6 (L) 09/02/2023 HCT 37.0 09/02/2023 MCV 78.4 (L) 09/02/2023 MCH 24.6 (L) 09/02/2023 MCHC 31.4 (L) 09/02/2023 PLATELET 282 09/02/2023 RDWCV 13.0 09/02/2023 Latest Reference Range & Units 09/02/23 16:55 Folate Lvl 4.8 - 24.2 ng/mL 9.5 Iron 30 - 150 mcg/dL 35 TIBC 250 - 450 mcg/dL 478 (H) Iron Saturation 20 - 50 % 7 (L) Ferritin 6 - 175 ng/mL 10 Vit B1 Lvl WB 70 - 180 nmol/L 77 Vitamin B-12 232 - 1,245 pg/mL 350 (H): Data is abnormally high (L): Data is abnormally low Assessment and Plan 48-year-old female with a microcytic anemia in the setting of low iron saturation and low ferritin despite ongoing oral iron. I think it is likely that her losses are not that great but she just does not absorb the iron very well. Additionally she is having GI side effects that may be worsened from the oral iron. I recommended intravenous iron to replace her and build up her iron stores. I would recommend Monoferric which can deliver the entire amount of 1000 mg of intravenous iron and a single infusion whichcan be done today. She is willing to get that. I would like to see her back in 2 or 3 months and repeat her CBC and ferritin to be sure she has been repleted and has adequate iron stores. In the future if she wanted to try oral iron again I would recommend a single ferrous sulfate tablet Wednesdays and Fridays to minimize GI side effects and increase the percentage of iron absorbed documented in this encounter Plan of Treatment Upcoming Encounters Date Type Department Care Team (Late st Contact Info) Description 06/15/2024 3:00 PM EDT Hospital [place] [address] [place] [address] 07/09/2024 8:30 AM EDT Appointment XRay at [address] [address] [place] [address] 07/17/2024 8:00 AM EDT Procedure [place] [address] 08/26/2024 8:00 AM EST Office [place] [address] 08/27/2024 9:00 AM EST Clinical Support [place] [address] Scheduled Orders Name Type Priority Associated Diagnoses Orde r Schedule CBC (with Diff) Lab STAT Iron deficiency anemia due to chronic blood loss Expected: 01/18/2024, Expires: 07/19/2024 Ferritin Lab STAT Iron deficiency anemia due to chronic blood loss Expected: 01/18/2024, Expires: 07/19/2024 documented as of this encounter Visit Diagnoses Diagnosis Iron deficiency anemia due to chronic blood loss Iron deficiency anemia secondary to blood loss (chronic) documented in this encounter Care Teams Administrative And Program Specialist Relationship Specialty Start Date End Date Mike Goodman DNP [address] [place] [id number] PCP - General Family Medicine 08/22/22 documented as of this encounter
--- OUTSIDE RECORDS SUMMARY | 2024-06-12 13:41 | XMS_ITS | Encounter Summary ---
Author Organization [facility] [place] [address] Care Team Providers Care Parts Finisher Name Role Phone Mike Goodman DNP Primary Care Provider [phone] Encounter Details Date Type Department Care Team (Late st Contact Info) Description 12/05/2023 3:00 PM EDT TH Visit (TeleHealth) [place] [address] Lisa Grady M, FACILITIES PAINTER [facility] [place] [address] Nedra Ling, RD [facility] [place] [address] Iron deficiency anemia, unspecified iron deficiency anemia type; Vitamin D deficiency; S/P partial gastrectomy Social History Tobacco Use Types Packs/Day Years Used Date Smoking Tobacco: Former Cigarettes Q uit: 12/03/2003 Smokeless Tobacco: Never Alcohol Use Standard Drinks/Week Comments No 0 (1 standard drink = 0.6 oz pur e alcohol) [facility] Utilities Answer Date Recorded In [...] on file documented as of this encounter Patient Instructions * Patient Instructions* Lisa Grady, FACILITIES PAINTER - 12/05/2023 3:00 PM EDT BSP application support intern Ana Maria [phone] and Lawanda [phone] Dietitians: [phone] Surgeons/ nurse practitioners: [phone] Nurse line: [phone] Dear Mora, Please see your electronic medical record note from today for details we discussed at your visit. Below is some additional general information that you may find helpful. Testing: It would be helpful if you can have your lab work drawn a couple days before your visit uriel [facility] facility so the results are available at the time of your follow up visit. If you have labwork done by your primary patient care technician before that date, please have a copy sent to the Bariatric Surgery Program. Please call/send my message if you have not heard from us within 2 weeks of having labs work done. Here's the link to [facility] Lab hours and locations: [email or web address] Next visit: Follow up visits are done at 4 months and 12 months after surgery and yearly thereafter. Some patients are evaluated on a more frequent basis. Please call [phone] if you do not receive an appointment by 3-4 weeks prior to the expected visit. Vitamins/Nutrition/Activity Recommendations: Please see your visit note for personalized recommendations General Vitamin recommendations: Multivitamins with minerals twice daily- needs to be an under 50 multivitamin that contains iron. Vitamin B12 500 mcg by mouth once daily Calcium citrate 500-600 mg with Vitamin D 400 units twice daily (600 mg in AM and 600 mg in PM- 2 pills twice a day) (or 1 chewable twice a day) Iron supplement: as specified in today's visit Vitamin D: as specified in today's visit General Nutrition recommendations: 1,000-1,200 calories per day (300 calories per meal, 100 calories per snack, 1-2 snacks per day) 60 grams of protein per day (20 grams per meal) 48-64 oz of non-caloric and hydrating fluids per day (6-8, 8 oz cups) Do not drink with meals- pushes food through more quickly, can cause upset stomach Activity: Aim for 30 minutes of exercise daily, 5 days a week of both cardio and strength training exercises. Skinfold care: Cleanse area with soap and water. Blow dry area on low setting with dental chairside assistant. Avoid excessive heat and/or sweating as friction and moisture can exacerbate disease. Try OTC Dove clinical strength anti perspirant to affected areas nightly or an absorbent powder such as Gold Flores and Desinex Apply cotton strips (such as strips from old sheets) or larger size cotton underwear folded beneathskin folds to act as a wick. Do not apply carlo cloth toweling which can cause further irritation Try combination of over the counter hydrocortisone cream with over the counter antifungal cream such as lotrimin twice a day for 2 weeks. If your symptoms do not improve you may require prescription of anti-fungal cream/powder. Follow up with PCP if symptoms worsen/fail to improve with above strategies. Constipation: Increase fiber, fluids and fitness. Yerba Prima is a fiber supplement that comes in capsule form. Additionally, consider trying 1 capful daily of miralax daily (preferably at night) with a goal of at least 1 BM per day. You can increase the dose as needed every 2-3 days (by adding on 1 capful either morning or night) without safety concerns, noting that individual tolerance becomes limited by loose stools and bloating with doses higher than 2 capfuls twice daily. Please call if you do not have a BM after 3 days. On days with loose stools, we recommend reducing miralax to 1/2 capful daily but continue to take miralax every day Nausea: Common causes for nausea post bariatric surgery are: Eating too fast, eating too much, drinking with meals, or not chewing well enough. Be sure to eat slowly and chew food well. Take at least30 minutes or more to eat a meal. Call if symptoms worsen, fail to improve, or if you have difficulty keeping food or fluid down. Alcohol: is not recommended for at least 6-12 months after surgery. Alcohol is absorbed much fasterand stays in your system much longer post bariatric surgery and as a result there is an increase risk of alcohol misuse/abuse after bariatric surgery. It should be used sparingly, no more than one drink per occasion, no more than 2 drinks a week. Alcohol is toxic to the liver, a source of empty calories, it can cause ulcers, vitamin and mineral deficiencies, as well as impair digestion and absorption of nutrients. Call or follow up with your therapist or primary care provider if you are struggling or think your alcohol intake is a problem. control for women of child bearing age: is recommended for at least 18-24 months after surgery. f non-prescribed drugs and treet drugs is unsafe Anti-inflammatory medications such as Ibuprofen (Advil), Aleve (Naproxen), Excedrin, Michell-Eldridge should be used sparingly after gastric bypass, since they increase the risk of ulcer and bleeding. A bone mineral density scan (DEXA) is recommended every 2 years after bariatric surgery. Please schedule this study through your primary care providers office. Hair Loss: is associated with rapid weight loss and is seen approximately 3 to 6 months after surgery and can last 3 to 6 months. It is almost always temporary. Eating a healthy diet with 60 grams ofprotein per day and taking your multivitamin with minerals will help. Sleep Apnea: If you have a history of sleep apnea and have a CPAP/BiPAP, please be sure to follow up with the sleep center to confirm your pressures and determine if continued use of CPAP/BiPAP is recommended. Potential lifetime risks of gastric bypass include risk of ulcer, which is increased with alcohol and antiinflammatory medications and internal hernia (less than 5%), which may be increased with higher than predicted weight loss Potential lifetime risks of sleeve gastrectomy include developed heartburn or severe reflux Call us: If you have concerns. If you have unexplained abdominal pain. if you see blood in your stool or vomit blood If you have prolonged vomiting Post Surgery Support Group: Our post surgery support group meets at [facility] on the first Friday of every month from 1:00 PM-2:00 PM. You can attend online or in person. Use the following link to attend online: [email or web address] Nutrition and Activity apps- Baritastic, My Fitness Pal, Lose It, My Plate Internet resources: www.Coin www.Theraclone Sciences www.bariatriceating.com www.[employer].nessPal.Reply[employer] Inc./blog [facility] facebook page: [email or web address] Books & Magazines: - Recipes for Life After Weight Loss Surgery by Netta Stovall - Shrink Yourself by Dr Renny Madrigal - Eating Well - www.Zenbox.[employer]. - Cooking Light- www.cookingAtrum Coal.[employer]. Anxiety: The Happiness Trap by Jd Joy The Mindfulness and acceptance workbook for anxiety By Ryan Priest. Mindful eating: What are you Hungry For? By Christiano Barraza The Mindful Diet by Dora Stevenson and the [facility] group. Emotional eating: End Emotional Eating by Nedra Birch Calming the Emotional Storm Lissettechari Ferrari documented in this encounter Progress Notes * Nedra Ling, RD - 12/05/2023 3:00 PM EDT Images from the original note were [place] [address] VIRTUAL NOTE Call made with Lisa Grady APRN Reason/purpose for telemedicine: follow up visit The patient voiced an understanding of the reason and intent of the televisit and provided verbal consent to discuss clinical issues by telehealth. Additionally, the patient acknowledged that the telehealth consultation is a billable encounter, and that the patient or their medical insurance carrier could be billed. At the time of encounter pt was in [place]. SUBJECTIVE: Topics Discussed/Patient Concerns: PCP is concerned bc she has been having struggles for some time - osteomalacia, low vitamin D, iron, and B12 . PCP wants to know what the plan is. Having hypoglycemia- no energy, blacks out- daily. Used to keep symptom log but not any more. So frustrated. Ongoing for years- since at least 2016. Retaining weight No change in abdominal pain. OBJECTIVE: Date of Surgery: 11/26/17 Types of Surgery: Laparoscopic revision of anjel fundoplasty with partial gastrectomy and Analia-en-Y reconstruction w/Dr. Ange López lap with Dr. Cassidy: 07/16/23 Weight History: Date Weight (lbs) HT BMI Comments 10/20/17 199.6# 61 37.7 Pre-op visit 11/26/17 199.5# EWL % Surgery 12/18/17 187.8# 18% 35.5 1 month post-op 12/05/23 na 6 years post-op (telehealth) Vitamin/Mineral Supplements (reported by patient): Supplement Type Brand/Form Dosage/Amount Frequency Comments Multivitamin Bariatric Advantage MV 3 pill daily 45 mg FE, 3000 IU vit D, 1000 mcg vit B12, 800 mcgfolate Calcium chews 500 mg twice daily Vitamin B12 IM monthly IM from PCP monthly Iron Stopped per hematology hx infusions Vitamin D3 57090 IU every 3rd day Food Allergies/Intolerances: red sauce Tracking Intake: none. Has in the past. 24-Hour Intake: eats 4 small meals. Doesn't eat after 7PM due to reflux. Breakfast Scrambled egg AM Snack 2 slices of apple with PB Lunch Not feeling well. String cheese PM Snack Couple slices of apple with PB Dinner Chicken, javier, caesar HS Snack Protein/ grams per day: <60 g Hydrating fluids- oz/ day: Struggles to stay hydrated. Sips all day. Crystal Light during the day. Occ coconut water - 2 x 24 oz bottle water daily Soda: Sips on coke if nauseous ETOH: None. Caffeine: coffee Sweets: Meals per day: Drinks with meals: none. In the past month, pt has vomited/regurgitated: if eats too much will regurgitation of food. Constipation/Diarrhea: BM daily. Exercise: energy is poor. Doesn't sleep well. Horses. adopting an 8 year old child. No longer running long distances. ASSESSMENT: Summary of Weight Loss: Mora Bolanos presents for f/u s/p Laparoscopic revision of anjel fundoplasty with partial gastrectomy and Analia-en-Y reconstruction w/Dr. Cassidy in 2018. Ongoing challenges with nutrition/supplementation. Recent visits with endocrinology (vitamin D), hematology (iron), PCP (vitamin B12). Discussed reactive hypoglycemia and how to treat it. NUTRITION INTERVENTION & MONITORING: Provided support/encouragement and reinforced importance of meeting nutritional goals. For low blood sugars: eat small frequent meals - 6 x day, protein at every meal, keep a ready source of glucose on hand (glucose tabs, honey sticks, etc) 15 g carbohydrate Talk to endocrinology about a trial of acarbose. Reviewed nutrition and vitamin and mineral supplement recommendations. Multivitamin with minerals- continue Bariatric Multivitamin 3 pill per day Calcium citrate 500-600 mg with vitamin D twice daily. (1 chew twice daily) Vitamin D 50,000 IU every 3 days. Iron- infusions as rec by hematology Vitamin B12- 1000 mcg IM monthly or as recommended by PCP Evaluation by Lisa Grady APRN today. F/u in 6 months, sooner if requested. * Lisa Grady, FACILITIES PAINTER - 12/05/2023 3:00 PM EDT Images from the original note were not included. [place] [address] SURGERY VIRTUAL NOTE Reason/purpose for phone call: follow up visit The patient voiced an understanding of the reason and intent of the televisit and provided verbal consent to discuss clinical issues by telehealth. Additionally, the patient acknowledged that the telehealth consultation is a billable encounter, and that the patient or their medical insurance carrier could be billed. Summary of conversation, decision making, and plan: see below encounter note for details. Reason for visit: Surgery follow up visit Subjective: Mora Bolanos is s/p Laparoscopic revision of anjel fundoplasty with partial gastrectomy and Analia-en-Y reconstruction on 11/26/17. She presents today for follow up. She is extremely frustrated with feeling poorly. She was last seen by Dr. Cassidy 08/2023, she is s/p diagnostic laparoscopy. She continues to have intermittent abdominal pain and fatigue. Per Dr. Cassidy, she had extensive work up, no surgical indication or cause for her pain. If pain persists would recommend referral to a GI motility specialist to see if there is any dysmotility component to this. She continues to have epigastric pain, which can occur every 3-4 days. Pain is accompanied by nausea. She has not found anything that really helps. Usually lasts minutes to hours. She has tried levsin in the past which did not help. She has not found a trend or specific food/fluid that causes her sx. She did find that this last time she took tums/rolaids it did help. She is taking Protonix BID. She will occasionally taking Pepcid prn, does not always seem. Her GERD sx are stable, occasional break through sx if she eats too late or has specific trigger foods. Occasional nausea/foamies. + regurg if she eats too much. BM are daily without problems. She also reports long history of reactive hypoglycemia which predates her bypass. She has been trying to be careful with what and how she eats. She is eating 4 small meals daily. Trying to make sure she is meeting nutritional/fluid requirements. Since her last visit she has seen heme for iron infusions to help manage her iron deficiency She has seen endocrinology for vit D deficiency and hyperparathyroid. She had been taking Vit D 50,000 IU q 3 days without any improvement in her levels. Per endocrinology she has stopped her PO Vit D and is now tanning 3 x week, she is up to 6 minutes. Current Supplements: -Bariatric Advantage MV serving = 3, taking full dose daily (45 mg Fe, 5000 IU vitamin D, 1000 mcg B12 daily) -Calcium citrate chews 3 daily, will decrease to 2 daily -Vitamin D every 3rd day 50,000 IU - Just started B12 injections monthly - following with Heme for periodic iron infusions -Magnesium Patient Active Problem List Diagnosis Code Gastroesophageal reflux K21.9 Dyspepsia R10.13 Disorder of female genital organ N94.9 Endometriosis of other specified sites N80.8 Nausea R11.0 S/P partial gastrectomy Z90.3 Paroxysmal SVT (supraventricular tachycardia) I47.10 Chest pressure R07.89 Lipid screening Z13.220 Iron deficiency anemia due to chronic blood loss D50.0 Dietary history/ exericse/ activity level: See dietitian note from today's visit for complete dietary evaluation. Objective: There were no vitals taken for this visit. Physical Exam- limited d/t telehealth Gen: Alert, pleasant, NAD, appears well Resp: Speaking in full sentences, no gasping. No cough witnessed. Skin: No pallor or diaphoresis visible. No rash noted. Psychiatric: normal mood and affect. Lab Results Component Value Date SFOLATE 9.5 09/02/2023 Lab Results Component Value Date IRON 35 09/02/2023 TIBC 478 (H) 09/02/2023 FERRITIN 10 09/02/2023 Lab Results Component Value Date LGBUREPS38 350 09/02/2023 25-OH Vit D Total (ng/mL) Date Value Status 09/02/2023 13 (L) Final Lab Results Component Value Date PTH 71 (H) 10/01/2023 CALCIUM 9.8 10/01/2023 PHOS 3.4 10/01/2023 Lab Results Component Value Date WBC 6.7 09/02/2023 HGB 11.6 (L) 09/02/2023 HCT 37.0 09/02/2023 MCV 78.4 (L) 09/02/2023 PLATELET 282 09/02/2023 Lab Results Component Value Date NA 141 09/02/2023 K 5.0 09/02/2023 CL 104 09/02/2023 CO2 29 09/02/2023 BUN 9 09/02/2023 CREATININE 0.77 09/02/2023 GLUCOSE 102 09/02/2023 GLUCFASTING 114 (H) 11/27/2017 CALCIUM 9.8 10/01/2023 ESTGFR 95 09/02/2023 Lab Results Component Value Date ALT 16 09/02/2023 AST 21 09/02/2023 ALKPHOS 135 (H) 09/02/2023 BILITOT 0.2 09/02/2023 BILIDIR 0.1 03/09/2018 ALBUMIN 4.5 09/02/2023 PROT 7.1 09/02/2023 Assessment /Plan: 48 y.o. female who is 6 yrs s/p Analia-en-Y gastric bypass For GERD with : Hypoglycemic episodes: Discussed importance of protein at every meal. Reviewed 15 grams of carbs and wait 15 minutes to see if sx improve. Reviewed ED precautions. Patient will track symptoms- when an episode occurs patient will document symptoms/time and food intake/time over the preceding 6 hours. Recommended that she discuss further with endocrinology to see if she should check blood sugar (? CGM) or see if she would be a candidate for acarbose. Epigastric pain: Discussed that some of patient's sx may be related to how she eats as well as whatshe eats. Discussed food tolerance/intolerances and nuances to post bariatric eating. Recommended re-starting Stage 2 diet for 5 days to see if sx persist with full fluid diet, advance diet to stage 3 for 3-5 days and then to stage 4, continue sx diary/food long to see if she can isolate trigger/cause. Continue PPI and H2 Silas. Reviewed importance of post bariatric eating behaviors--eating protein first, pairing carbs with protein, eating slowly, taking small bites, chewing well, avoiding meats/foods that are too dry. Separate food from fluids by 30 minutes. Patient has met with piping design specialist today, please see note for additional details/dietary evaluation. Will also refer to GI motility clinic for further evaluation. Risk for vitamin deficiencies: Reviewed lab results as above. Will check iron studies, folate, Vit D, Vit B 1, Vit B 12, hemogram, CMP, PTH and prealbumin and A1c. Will make additional recommendations once lab results are available. Continue with above supplements and recommendations by heme and endocrinology. RTC in 6 mo for next BSP follow up visit, with labs. Call/rtc sooner prn with questions/concerns orunexplained abdominal pain, prolonged nausea, vomiting or inability to hydrate. AVS Summary report is availabe for patient's review via e-DH I spent a total of 30 minutes associated with this encounter, including chart review, the patient encounter, and documentation. Lisa Grady APRN RECOMMENDED BARIATRIC SURGERY PROGRAM POSTOPERATIVE FOLLOW-UP: Follow up: done at 4, 12 and yearly thereafter. High risk patients are evaluated on a more frequentbasis. *Typical Supplement recommendations: Multivitamin with minerals twice a day, B12 500 mcg once a day, calcium citrate 600 mg/400 units vitamin D twice a day, iron (ferrous fumarate, carbonyl iron taken with vitamin C 250 mg once every other day) for menstruating females or those with Iron Deficiency. Labwork: Hemogram, ferritin, iron (transferrin) saturation, iron, folate, B1, B12, D (25 hydroxy only), Intact PTH and comprehensive metabolic profile at 4, 12 months and yearly. If labwork is done by the primary patient care technician: please send a copy to the Bariatric Surgery Program, General Surgery Clinic, [facility], or fax [phone] documented in this encounter Plan of Treatment Upcoming Encounters Date Type Department Care Team (Late st Contact Info) Description 06/15/2024 3:00 PM EDT Hospital [place] [address] [place] [address] 07/09/2024 8:30 AM EDT Appointment XRay at [address] [id number] [place] [address] 07/17/2024 8:00 AM EDT Procedure visit [place] [address] 08/26/2024 8:00 AM EST Office [place] [address] 08/27/2024 9:00 AM EST Clinical [place] [address] documented as of this encounter Visit Diagnoses Diagnosis Iron deficiency anemia, unspecified iron deficiency anemia type Vitamin D deficiency Unspecified vitamin D deficiency S/P partial gastrectomy Other postprocedural status documented in this encounter Care Teams Parts Finisher Relationship Specialty Start Date End Date Mike Goodman DNP [address] [place] [id number] PCP - General Family Medicine 08/22/22 documented as of this encounter
--- OUTSIDE RECORDS SUMMARY | 2024-06-12 13:41 | XMS_ITS | Encounter Summary ---
[place] [address] Care Team Providers Care Metal Drill Press Operator Name Role Phone Mike Goodman KYLE Primary Care Provider [phone]- [phone] Reason for Referral * Diagnostic Test (Routine) - Closed Specialty Diagnoses / Procedures Referred By Martha broussard Referred To Contact Radiology Diagnoses Breast lesion on mammography Procedures MRI Breast wwo Contrast Jaimee Shields APRN [facility] [place] [address] [place] [address] Referral ID Status Reason Start Date Expiration Date V isits Requested Visits Authorized [id number] Closed Specialty Service Requested 06/17/2023 12/16/2024 1 1 Reason for Visit * Diagnostic Test (Routine) - Closed Specialty Diagnoses / Procedures Referred By Martha broussard Referred To Contact Radiology Diagnoses Breast lesion on mammography Procedures MRI Breast wwo Contrast Jaimee Shields APRN [facility] [place] [address] [place] [address] Referral ID Status Reason Start Date Expiration Date V isits Requested Visits Authorized [id number] Closed Specialty Service Requested 06/17/2023 12/16/2024 1 1 Encounter Details Date Type Department Care Team (Latest Contact Info) Description 07/29/2023 6:11 PM EST - 07/29/2023 11:59 PM EST Hospital Encounter MRI at [facility] [place] [address] Jaimee Maki APRN [facility] [place] [place] [address] Breast lesion on mammography Discharge Disposition: Home Social History Tobacco Use Types Packs/Day Years Used Date Smoking Tobacco: Former Cigarettes Q uit: 12/03/2003 Smokeless Tobacco: Never Alcohol Use Standard Drinks/Week Comments No 0 (1 standard drink = 0.6 oz pur e alcohol) [facility] Inpatient Questions Answer Date Recorded Does Anyone [...] Sig Dispensed Refills Start Date End Date epiNEPHrine 0.15 mg/0.15 mL Cmpk combo pack Inject into the muscle as needed (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 01/11/2011 oxyCODONE (Roxicodone) 5 mg tablet Take 1 tablet by mouth every 4 hours as needed for Pain. 5 tablet 07/16/2023 10/16/2023 ferrous sulfate (FeroSul) 325 mg (65 mg iron) tablet Take 325 mg by mouth 2 times daily. 03/11/2023 12/05/2023 acetaminophen (Tylenol) 325 mg tablet Take 650 mg by mouth every 4 hours as needed for Pain. 05/21/2024 OMEPRAZOLE ORAL Take 40 mg by mouth 2 times daily. Takes it 4 times a day 08/19/2023 calcium carbonate (Tums) 200 mg calcium (500 [...] PM EDT Hospital [place] [address] Alena Pizarro, [place] [address] 07/09/2024 8:30 AM EDT Appointment XRay at [address] [address] [place] [address] 07/17/2024 8:00 AM EDT Procedure [place] [address] 08/26/2024 8:00 AM EST [place] [address] 08/27/2024 9:00 AM EST Clinical [place] [address] documented as of this encounter Procedures Procedure Name Priority Date/Time Associated Diagnosis Comments MRI BREAST WWO CONTRAST BILAT Routine 07/29/2023 7:24 PM EST Breast lesion on mammography documented in this encounter Results * MRI Breast wwo Contrast Bilat (07/29/2023 7:24 PM EST) Anatomical Region Laterality Modality Breast Bilateral Magnetic Resonan ce Impressions 07/30/2023 3:51 PM EST No MRI evidence of malignancy. RECOMMENDATION: Yearly screening mammography unless clinically indicated otherwise. FINAL ASSESSMENT: BI-RADS Category 2: Benign Findings Thank you for letting us participate in the care of this patient. ??If you are a health care provider and have any questions regarding this report, please contact the number below. ??For patients who have questions please contact the health child care specialist that requested your imaging first. ? Electronically signed by: Pilar Saravia MD, [facility] ([phone]), at 07/30/2023 3:51 PM Narrative 07/30/2023 3:51 PM EST EXAMINATION: MRI BREAST WWO CONTRAST BILAT CLINICAL INDICATION: 48-year-old with an abnormality detected in the right breast on a recent MRI cholangiogram. The patient has no current breast complaints. No family history of breast cancer. Most recent mammogram is December 2022 which found a cyst in the right breast. TECHNIQUE: Multiplanar sequences were obtained pre- and post- Dotarem enhancement, to include SPGR weighted dynamic run-off and subtraction sequences obtained after the intravenous administration of 13 ccs of Dotarem. Computer algorithm analysis for lesion detection and kinetic contrast enhancement curve analysis was performed, using [employer] software. COMPARISON STUDIES: No prior contrast-enhanced breast MRI studies. FINDINGS: Background Parenchymal Enhancement: Mild Amount of Fibroglandular Tissue: Scattered fibroglandular tissue There is adequate bilateral contrast and there is mild background enhancement. Signal void from biopsy clip is seen in the right lower outer quadrant. There is a benign-appearing intramammary lymph node in the right posterior 10:00 position. There is no suspicious enhancement in either breast. Both axillary regions are unremarkable. Lymph Node Basins/Other: There is no evidence of internal mammary or axillary adenopathy.. No significant abnormalities are seen in the chest wall or skin.. Jaimee Maki APRN IMG MRI ORDERABLES documented in this encounter Visit Diagnoses Diagnosis Breast lesion on mammography Abnormal mammogram, unspecified documented in this encounter Administered Medications Inactive Administered Medications - up to 3 most recent administrations Medication Order MAR Action Action Date Dose Rate Site gadoterate meglumine (Dotarem) (0.5 mMol/mL) injection solution 0-100 mL 0-100 mL, Intravenous, ONCE PRN, 1 dose, Starting on Fri07/29/23 at 1859, Until Fri07/29/23 at 1905, Per Protocol, Radiology Contrast, Routine Given 07/29/2023 7:05 PM EST 13 mLs documented in this encounter Care Teams Metal Drill Press Operator Relationship Specialty Start Date End Date Mike Goodman DNP [address] [place] [id number] PCP - General Family Medicine 08/22/22 documented as of this encounter
--- OUTSIDE RECORDS SUMMARY | 2024-06-12 13:41 | XMS_ITS | Encounter Summary ---
[place] [address] Care Team Providers Care Land Surveying Survey Worker Name Role Phone Mike Goodman KYLE Primary Care Provider [phone]- [phone] Reason for Referral * Consultation (Routine) - Closed Specialty Diagnoses / Procedures Referred By Contac t Referred To Contact Endocrinology Diagnoses Vitamin D deficiency Senait Rico APRN [facility] [place] [address] [facility] Endocrinology [address] [place] [phone] Referral ID Status Reason Start Date Expiration Date V isits Requested Visits Authorized [id number] Closed Consult, Test & Treat 09/10/2023 09/09/2024 1 1 * Consultation (Routine) - Closed Specialty Diagnoses / Procedures Referred By Contac t Referred To Contact Hematology and Oncology Diagnoses Iron deficiency anemia, unspecified iron deficiency anemia type Senait Rico APRN [facility] [place] [address] [facility] Hem Onc Office [address] [place] [phone] Referral ID Status Reason Start Date Expiration Date V isits Requested Visits Authorized [id number] Closed Consult, Test & Treat 09/10/2023 09/09/2024 1 1 Encounter Details Date Type Department Care Team (Late st Contact Info) Description 09/10/2023 Telephone General Surgery at [facility] [place] [address] Senait Rico APRN [facility] [place] [address] Social History Tobacco Use Types Packs/Day Years [...] encounter Miscellaneous Notes * Telephone Encounter - Senait Rico APRN - 09/10/2023 1:48 PM EST Called patient to review lab results. Labs show iron deficiency anemia, vitamin D deficiency, low B12. Patient is taking: -Bariatric Advantage MV serving = 3, taking full dose daily (45 mg Fe, 5000 IU vitamin D, 1000 mcg B12 daily) *patient switched to this MV about 1 year ago -Fe 62 mg BID -Calcium citrate chews 3 daily, will decrease to 2 daily -Vitamin D every 3rd day 50,000 *patient switching to this dose in December -Methylated B12 2000 mcg taking 4/day = 8000 mcg total -Magnesium A/P: Patient s/p RNY with significant micronutrient deficiencies in spite of very high dose supplement regimen. Referrals to hematology and endocrine placed. -Clinic follow up booked. -Questions encouraged and answered. documented in this encounter Plan of Treatment Upcoming Encounters Date Type Department Care Team (Late st Contact Info) Description 06/15/2024 3:00 PM EDT Hospital [place] [address] [place] [address] 07/09/2024 8:30 AM EDT Appointment XRay at [address] [address] Alena Pizarro [employer] [place] [address] 07/17/2024 8:00 AM EDT Procedure [place] [address] 08/26/2024 8:00 AM EST Office [place] [address] 08/27/2024 9:00 AM EST Clinical [place] [address] Scheduled Referrals Name Type Priority Associated Diagnoses Order Schedule Referral to Hematology and Oncology Outpatient Referral Routine Iron deficiency anemia, unspecified iron deficiency anemia type Ordered: 09/10/2023 Referral to Endocrinology Outpatient Referral Routine Vitamin D deficiency Ordered: 09/10/2023 documented as of this encounter Visit Diagnoses Diagnosis Iron deficiency anemia, unspecified iron deficiency anemia type Vitamin D deficiency Unspecified vitamin D deficiency documented in this encounter Care Teams Land Surveying Survey Worker Relationship Specialty Start Date End Date Mike Goodman DNP [address] [place] [address] PCP - General Family Medicine 08/22/22 documented as of this encounter
--- OUTSIDE RECORDS SUMMARY | 2024-06-12 13:41 | XMS_ITS | Encounter Summary ---
Author Organization [facility] [place] [address] Care Team Providers Care Loss Prevention Consultant Name Role Phone Mike Goodman DNP Primary Care Provider [phone] Encounter Details Date Type Department Care Team (Latest Contact Info) Description 07/22/2023 Travel Social History Tobacco Use Types Packs/Day [...] PM EDT Hospital [place] [address] [place] [address] 07/09/2024 8:30 AM EDT Appointment XRay at [address] [phone] [place] [address] 07/17/2024 8:00 AM EDT Procedure [place] [address] 08/26/2024 8:00 AM EST Office [place] [address] 08/27/2024 9:00 AM EST Clinical [place] [address] documented as of this encounter Visit Diagnoses Not on filedocumented in this encounter Care Teams Loss Prevention Consultant Relationship Specialty Start Date End Date Mike Goodman DNP [address] [place] [address] [place] [address] PCP - General Family Medicine 08/22/22 documented as of this encounter
--- OUTSIDE RECORDS SUMMARY | 2024-06-12 13:41 | XMS_ITS | Encounter Summary ---
Author Organization [facility] Address [facility] [place] [address] Care Team Providers Care Tobacco Warehouse Agent Name Role Phone Mike Goodman DNP Primary Care Provider [phone] Reason for Visit * Reason Comments Follow-up Encounter Details Date Type Department Care Team (Late st Contact Info) Description 09/02/2023 3:30 PM EST Office [place] [address] Sheridan Cassidy MD [facility] [place] [address] S/P partial gastrectomy Social History Tobacco Use [...] as of this encounter Progress Notes * Sheridan Cassidy MD - 09/02/2023 3:30 PM EST Mora Bolanos was seen in follow-up after her recent diagnostic laparoscopy. Unfortunately, she continues to have intermittent pain and fatigue. I do not see any surgical cause for this pain andshe has been worked up extensively. I think some of the fatigue may be related to some vitamin and m ineral deficiencies and I will check them today and have her followed by our bariatric team to arrange some corrections if there are some to be made. Another consideration is referral to a GI motility specialist to see if there is any dysmotility component to this. I think we should try to correct any mineral deficiencies first to see how this affects her energy level. documented in this encounter Plan of Treatment Upcoming Encounters Date Type Department Care Team (Late st Contact Info) Description 06/15/2024 3:00 PM EDT Hospital [place] [address] Alena [place] [address] 07/09/2024 8:30 AM EDT Appointment XRay at [address] [address] [place] [address] 07/17/2024 8:00 AM EDT Procedure [place] [address] 08/26/2024 8:00 AM EST Office Visit [place] [address] 08/27/2024 9:00 AM EST Clinical Support [place] [address] documented as of this encounter Procedures Procedure Name Priority Date/Time Associated Diagnosis Comments PTH Routine 09/02/2023 4:55 PM EST S/P partial gastrectomy HEMOGRAM Routine 09/02/2023 4:55 PM EST S/P partial gastrectomy VITAMIN B1, WHOLE BLOOD Routine 09/02/2023 4:55 PM EST S/P partial gastrectomy IRON AND TIBC Routine 09/02/2023 4:55 PM EST S/P partial gastrectomy VITAMIN D, 25-HYDROXY Routine 09/02/2023 4:55 PM EST S/P partial gastrectomy HEMOGLOBIN A1C Routine 09/02/2023 4:55 PM EST S/P partial gastrectomy FOLATE, SERUM Routine 09/02/2023 4:55 PM EST S/P partial gastrectomy FERRITIN Routine 09/02/2023 4:55 PM EST S/P partial gastrectomy VITAMIN B12 Routine 09/02/2023 4:55 PM EST S/P partial gastrectomy LIPID PANEL (REFLEX DIRECT LDL) Routine 09/02/2023 4:55 PM EST S/P partial gastrectomy COMPREHENSIVE METABOLIC PANEL Routine 09/02/2023 4:55 PM EST S/P partial gastrectomy documented in this encounter Results * (ABNORMAL) Vitamin D, 25-Hydroxy (09/02/2023 4:55 PM EST) Vitamin D Total 25 OH 13(L) 21 - 100 ng/mL [facility] Vit D Interp Deficient [facility] Blood 09/02/2023 4:55 PM EST 09/02/2023 5:02 PM EST Narrative Resulting Agency Comment Spec In Lab Sheridan Cassidy MD CHEMISTRY ORDERABLES [facility] [place] [address] * Vitamin B12 (09/02/2023 4:55 PM EST) Vitamin B12 350 232 - 1,245 pg/mL [facility] Blood 09/02/2023 4:55 PM EST 09/02/2023 5:02 PM EST Narrative Resulting Agency Comment Spec In Lab Sheridan Cassidy MD CHEMISTRY ORDERABLES Performing Organization Address City/[facility]/ZIP Co de Phone Number [facility] [place] [address] * Vitamin B1, whole blood (09/02/2023 4:55 PM EST) Vit B1 Lvl Wb (JANUARY) 77 70 - 180 nmol/L [facility] Comment: ADDITIONAL INFORMATION This test was developed and its performance characteristics determined by [facility] in a manner consistent with CLIA requirements. This test has not been cleared or approved by the U.S. Food and Drug Administration. Test Performed by: [facility] - [address] [address] Foreign Language Interpreter: Didier Botello M.D. Ph.D.; CLIA# [id number] Blood 09/02/2023 4:55 PM EST 09/03/2023 11:27 AM EST Narrative Resulting Agency Comment Spec In Lab Sheridan Cassidy MD LAB SEND OUT ORDERAB LES [facility] [place] [address] * (ABNORMAL) PTH (09/02/2023 4:55 PM EST) Parathyroid Hormone 92(H) 15 - 65 pg/mL [facility] Blood 09/02/2023 4:55 PM EST 09/02/2023 5:02 PM EST Narrative Resulting Agency Comment Spec In Lab Sheridan Cassidy MD CHEMISTRY ORDERABLES [facility] [place] [address] * Lipid Panel (Reflex Direct LDL) (09/02/2023 4:55 PM EST) Cholesterol, Total 202 mg/dL [facility] Comment: Lower Risk: <200 mg/dL Average Risk: 200-239 mg/dL Higher Risk: >cd=379 mg/dL Triglyceride 70 mg/dL [facility] Comment: Average Risk/Lower Risk: <150 mg/dL Borderline High Risk: 150-199 mg/dL High Risk: 200-499 mg/dL Very High Risk: >av=767 mg/dL HDL Cholesterol 73 mg/dL [facility] Comment: Males: ?? Higher Risk: <40 mg/dL Females: ?? Higher Risk: <50 mg/dL LDL Cholesterol 115 mg/dL [facility] Comment: Lowest Risk: <100 mg/dL Lower Risk: 100-129 mg/dL Borderline High Risk: 130-159 mg/dL High Risk: 160-189 mg/dL Very High Risk: >cb=007 mg/dL Cholesterol/HDL Ratio 2.8 ratio [facility] Lipid Interpretation See Note [facility] Comment: Lipid management should be guided by a patient? s ASCVD risk, goals and preferences. ACC/AHA Guidelines recommend high intensity statin if clinical ASCVD or LDL greater than or equal to 190 mg/dL. http://[employer] 11.com/RAD-LLI-Auyfbgjjd Adults aged 40-75 with LDL 70-189 mg/dL should have their 10 year ASCVD risk estimated with the ACC/AHA ASCVD risk retail sales advisor http://tools.acc.org/ZOXCE-Xhrr-Mfvrtixws/ Statin should be discussed if risk greater [...] In Lab Sheridan Cassidy MD CHEMISTRY ORDERABLES Performing Organization Address [facility] Co de Phone Number [facility] [place] [address] * (ABNORMAL) Iron and TIBC (09/02/2023 4:55 PM EST) Iron 35 30 - 150 mcg/dL [facility] TIBC 478(H) 250 - 450 mcg/dL [facility] Iron Saturation 7(L) 20 - 50 % [facility] Blood 09/02/2023 4:55 PM EST 09/02/2023 5:02 PM EST Narrative Resulting Agency Comment Spec In Lab Sheridan Cassidy MD CHEMISTRY ORDERABLES Performing Organization Address [facility] Co de Phone Number [facility] [place] [address] * (ABNORMAL) Hemogram (09/02/2023 4:55 PM EST) White Blood Cell 6.7 4.0 - 9.5 x10(3)/mc L [facility] Red Blood Cell 4.72 4.00 - 5.21 x10(6)/mc L [facility] Hemoglobin 11.6(L) 11.7 - 15.5 g/dL [facility] Hematocrit 37.0 35.7 - 45.8 % [facility] Mean Cell Volume 78.4(L) 82.6 - 94.4 fL [facility] Mean Cell Hemoglobin 24.6(L) 27.1 - 32.0 pg [facility] Mean Cell Hemoglobin Concentration 31.4(L) 31.7 - 35.0 g/dL [facility] Platelet 282 145 - 357 x10(3)/mc L [facility] RDW Standard Deviation 37.1 37.0 - 46.0 fL [facility] RDW coefficient of variation 13.0 11.5 - 14.1 % [facility] Mean Platelet Volume 10.0 7.6 - 12.9 fL [facility] NRBC% auto 0.0 % [facility] NRBC Absolute 0.000 0.000 - 0.000 x10(3)/mc L [facility] Blood 09/02/2023 4:55 PM EST 09/02/2023 5:02 PM EST Narrative Resulting Agency Comment Spec In Lab Sheridan Cassidy MD HEMATOLOGY ORDERABLE S Performing Organization Address [facility] Co de Phone Number [facility] [place] [address] * Hemoglobin A1c (09/02/2023 4:55 PM EST) Hemoglobin A1c 5.4 4.3 - 5.6 % [facility] Comment: Reference Range: 4.3 - 5.6% 5.7 - 6.4% - Increased Risk of Developing Diabetes Mellitus >= 6.5% - Consistent with diagnosis of Diabetes Mellitus In the absence of hyperglycemia (i.e. plasma glucose > 200 mg/dL) or classic symptoms of hyperglycemia a repeat measurement of HbA1c should be performed on a separate sample to confirm the diagnosis. Diagnosis and Classification of Diabetes Mellitus, Diabetes Care 2013; 36: Suppl. 1, M19-28 Estimated Average Glucose 110 mg/dL [facility] Comment: Note: The eAG calculation has not been proven valid for women, individuals below 18 years old or above 70 years old, or individuals with hemoglobinopathies. Estimated average glucose (eAG) is calculated from the equation described in: Ankush ERWIN, Finn J, Dariusz R, et al. ??Translating the A1C assay into estimated average glucose values. ??Diabetes Care 2008:31(8):8865-7427. Additional resources are available on the ADA website (diabetes.org). Blood 09/02/2023 4:55 PM EST 09/02/2023 5:02 PM EST Narrative Resulting Agency Comment Spec In Lab Sheridan Cassidy MD CHEMISTRY ORDERABLES Performing Organization Address [facility] Co de Phone Number [facility] [place] [address] * Folate, serum (09/02/2023 4:55 PM EST) Folate 9.5 4.8 - 24.2 ng/mL [facility] Blood 09/02/2023 4:55 PM EST 09/02/2023 5:02 PM EST Narrative Resulting Agency Comment Spec In Lab Sheridan Cassidy MD CHEMISTRY ORDERABLES Performing Organization Address [facility] Co de Phone Number [facility] [place] [address] * Ferritin (09/02/2023 4:55 PM EST) Ferritin 10 6 - 175 ng/mL [facility] Comment: Please note that as of 08/20/2023, the reference intervals for Ferritin have been updated. Blood 09/02/2023 4:55 PM EST 09/02/2023 5:02 PM EST Narrative Resulting Agency Comment Spec In Lab Sheridan Cassidy MD CHEMISTRY ORDERABLES Performing Organization Address [facility] Co de Phone Number [facility] [place] [address] * (ABNORMAL) Comprehensive metabolic panel (non-fasting) (09/02/2023 4:55 PM EST) Glucose 102 65 - 199 mg/dL [facility] Comment:Diabetes: >=200 mg/d L plus symptoms Blood Urea Nitrogen 9 8 - 18 mg/dL [facility] Creatinine 0.77 0.70 - 1.20 mg/dL [facility] Sodium 141 135 - 145 mmol/L [facility] Potassium 5.0 3.5 - 5.0 mmol/L [facility] Comment: Please note: ??Patients with WBC >100,000 may have falsely elevated Potassium levels. ??For accurate Potassium quantification in these patients send serum separator tube (gold top) for subsequent determinations. ??Contact the Clinical Chemistry Laboratory if there are any questions. Chloride 104 98 - 107 mmol/L [facility] Carbon Dioxide 29 22 - 31 mmol/L [facility] Anion Gap 8 5 - 15 mmol/L [facility] Calcium 9.3 8.5 - 10.5 mg/dL [facility] Protein, Total 7.1 6.1 - 8.0 g/dL [facility] Albumin 4.5 3.2 - 5.2 g/dL [facility] Aspartate Aminotransferase 21 0 - 30 unit/L [facility] Alanine Aminotransferase 16 0 - 30 unit/L [facility] Alkaline Phosphatase 135(H) 35 - 105 unit/L [facility] Bilirubin, Total 0.2 0.2 - 1.3 mg/dL [facility] Est Glomerular Filtration Rate 95 >=60 mL/min/1. 73 m?? [facility] Comment: This patient's estimated [...] and symptoms in addition to eGFR. Blood 09/02/2023 4:55 PM EST 09/02/2023 5:02 PM EST Narrative Resulting Agency Comment Spec In Lab Sheridan Cassidy MD CHEMISTRY ORDERABLES [facility] [place] [address] documented in this encounter Visit Diagnoses Diagnosis S/P partial gastrectomy Other postprocedural status documented in this encounter Care Teams Tobacco Warehouse Agent Relationship Specialty Start Date End Date Mike Goodman DNP [address] [place] [id number] PCP - General Family Medicine 08/22/22 documented as of this encounter
--- OUTSIDE RECORDS SUMMARY | 2024-06-12 13:41 | XMS_ITS | Encounter Summary ---
Author Organization [facility] Address [facility] [place] [address] Care Team Providers Care Motion Picture Film Examiner Name Role Phone Mike Goodman DNP Primary Care Provider Encounter Details Date Type Department Care Team (Late st Contact Info) Description 01/15/2024 8:30 AM EDT Office Visit Hematology/Oncology at [address] [phone] Leobardo Ricci MD [facility] [address] [place] [address] Justa Lyons ENERGY SALES CONSULTANT [address] [place] [address] DR MEDICAL ONCOLOGY [place], [place] [id number] Iron deficiency anemia due to chronic blood loss Social History Tobacco Use Types Packs/Day Years Used Date Smoking Tobacco: Former Cigarettes Q uit: 12/03/2003 Smokeless Tobacco: Never Alcohol Use Standard Drinks/Week Comments No 0 (1 standard drink = 0.6 oz pur e alcohol) [facility] Utilities Answer Date Recorded In the past 12 months has [employer], gas, oil, or water [employer] threatened to shut off services in your [...] Sign Reading Time Taken Comments Blood Pressure 109/70 01/15/2024 8:15 AM EDT Pulse 82 01/15/2024 8:15 AM EDT Temperature 36.5 ??C (97.7 ??F) 01/15/2024 8:15 AM ED T Respiratory Rate 16 01/15/2024 8:15 AM EDT Oxygen Saturation 99% 01/15/2024 8:15 AM EDT Inhaled Oxygen Concentration - - Weight 70.5 kg (155 lb 6.4 oz) 01/15/2024 8:15 A M EDT Height 154.9 cm (5' 0.98) 01/15/2024 8:15 AM ED T Body Mass Index 29.38 01/15/2024 8:15 AM EDT documented in this encounter Progress Notes * Justa Lyons, ENERGY SALES CONSULTANT - 01/15/2024 8:30 AM EDT Patient ID: Mora Bolanos is a 48 y.o. female. HPI Mora Bolanos is a 48yr old with iron deficiency anemia. She established care with the [facility] hematology clinic several months ago. She had been documented to be iron deficient without improvement on oral iron. She has a history of gastric bypass surgery. She has a long history of GI symptoms and a history of Barretts. She has had multiple evaluations by GI service. Most recent upper endoscopy revealed 2 small upper intestinal ulcers. She was started on protonix but has not had much improvement. She reports feeling very frustrated that no one can figure out what is going on with her. She is fatigues, has frequent diarrhea, joint pain and generallyfeels like something is wrong. She reports after her iron infusion two months ago she felt better for a little while but now feelstired again. She has had no bleeding, hx of hysterectomy so no periods. Patient Active Problem List Diagnosis Code Gastroesophageal [...] Negative for adenopathy. Bruises/bleeds easily. Objective BP 109/70 (Patient Position: Sitting) Pulse 82 Temp 36.5 ??C (97.7 ??F) (Temporal) Resp 16 Ht 154.9 cm (5' 0.98) Wt 70.5 kg (155 lb 6.4 oz) SpO2 99% BMI 29.38 kg/m?? Physical Exam Constitutional: General: She is not in acute distress. Appearance: Normal appearance. She is not ill-appearing. HENT: Mouth/Throat: Mouth: Mucous membranes are moist. Eyes: General: No scleral icterus. Pulmonary: Effort: Pulmonary effort is normal. Musculoskeletal: General: No swelling. Skin: Findings: No rash. Neurological: Mental Status: She is alert and oriented to person, place, and time. 01/15/24 00:00 WBC 5.28 (E) RBC 4.92 (E) Hemoglobin 13.4 (E) Hematocrit 41.2 (E) Platelets 242 (E) Neutr Abs (ANC) 2.81 (E) Ferritin 152 (E) (E): External lab result Assessment and Plan 48-year-old female with a microcytic anemia in the setting of low iron saturation and low ferritin despite ongoing oral iron. It is likely that her losses are not that great but she just does not absorb the iron very well. She had 1000mg monoferric IV infusion 2mos ago. Tolerated well and ferritin today is fine. She will continue to work with her PCP and gastroenterology to manage and treat her multiple concerns that are greatly affecting her quality of life. She will reach back out to [facility] gastric bypass nutrition team for advice on multiple nutritional deficiencies. Plan: - repeat CBC and ferritin in 3mos to ensure stability - monoferric infusions as needed Call with concerns or problems in the interim documented in this encounter Plan of Treatment Upcoming Encounters Date Type Department Care Team (Late st Contact Info) Description 06/15/2024 3:00 PM EDT Hospital [place] [address] Alena Pizarro [employer] [place] [address] 07/09/2024 8:30 AM EDT Appointment XRay at [address] [address] [place] [address] 07/17/2024 8:00 AM EDT Procedure visit [place] [address] 08/26/2024 8:00 AM EST Office [place] [address] 08/27/2024 9:00 AM EST Clinical [place] [address] documented as of this encounter Procedures Procedure Name Priority Date/Time Associated Diagnosis Comments CBC (WITH DIFF) Routine 01/15/2024 FERRITIN Routine 01/15/2024 documented in this encounter Results * Ferritin (01/15/2024) Ferritin 152 Blood 01/15/2024 Historical Provider CHEMISTRY ORDERAB LES * CBC (with Diff) (01/15/2024) White Blood Cell 5.28 Red Blood Cell 4.92 Hemoglobin 13.4 Hematocrit 41.2 Platelet 242 Neutrophil Absolute (ANC) - Automated 2.81 Blood 01/15/2024 Historical Provider HEMATOLOGY ORDERA BLES documented in this encounter Visit Diagnoses Diagnosis Iron deficiency anemia due to chronic blood loss Iron deficiency anemia secondary to blood loss (chronic) documented in this encounter Care Teams Motion Picture Film Examiner Relationship Specialty Start Date End Date Mike Goodman DNP [address] [place] [id number] PCP - General Family Medicine 08/22/22 documented as of this encounter
--- OUTSIDE RECORDS SUMMARY | 2024-06-12 13:41 | XMS_ITS | Encounter Summary ---
Author Organization [facility] [place] [address] Care Team Providers Care Water Restoration Technician Name Role Phone Mike Goodman DNP Primary Care Provider Encounter Details Date Type Department Care Team (Latest Contact Info) Description 10/01/2023 2:03 PM EST - 10/01/2023 11:59 PM EST Hospital Encounter Hematology [place] [address] Family history of malignant neoplasm of breast; Family history of malignant neoplasm of ovary Discharge Disposition: Home Social History Tobacco Use Types Packs/Day Years Used Date Smoking Tobacco: Former Cigarettes Q uit: 12/03/2003 Smokeless Tobacco: Never Alcohol Use Standard Drinks/Week Comments No 0 (1 standard drink = 0.6 oz pur e alcohol) [facility] Inpatient Questions Answer Date Recorded Does [...] PM EDT Hospital [place] [address] [place] [address] 07/09/2024 8:30 AM EDT Appointment XRay at [address] [address] [place] [address] 07/17/2024 8:00 AM EDT Procedure [place] [address] 08/26/2024 8:00 AM EST Office [place] [address] 08/27/2024 9:00 AM EST Clinical Support [place] [address] documented as of this encounter Procedures Procedure Name Priority Date/Time Associated Diagnosis Comments HC VENIPUNCTURE Routine 10/01/2023 2:12 PM EST Family history of malignant neoplasm of breast Family history of malignant neoplasm of ovary documented in this encounter Results * Research Venipuncture (10/01/2023 2:12 PM EST) Research Venipuncture Drawn [facility] Blood 10/01/2023 2:12 PM EST 10/01/2023 2:35 PM EST Narrative Resulting Agency Comment Spec In Lab Amalia Pendleton LEACH CELL OPERATOR CHEMISTRY ORDERABLE S [facility] [place] [address] documented in this encounter Visit Diagnoses Diagnosis Family history of malignant neoplasm of breast Family history of malignant neoplasm of ovary documented in this encounter Care Teams Water Restoration Technician Relationship Specialty Start Date End Date Mike Goodman DNP [address] [place] [id number] PCP - General Family Medicine 08/22/22 documented as of this encounter
--- OUTSIDE RECORDS SUMMARY | 2024-06-12 13:41 | XMS_ITS | Encounter Summary ---
Author Organization [facility] [place] [address] Care Team Providers Care Gyn Name Role Phone Mike Goodman DNP Primary Care Provider [phone] Encounter Details Date Type Department Care Team (Latest Contact Info) Description 09/02/2023 Travel Social History Tobacco Use Types Packs/Day [...] PM EDT Hospital En[place] [address] [place] [address] 07/09/2024 8:30 AM EDT Appointment XRay at [address] [phone] [place] [address] 07/17/2024 8:00 AM EDT Procedure visit [place] [address] 08/26/2024 8:00 AM EST Office [place] [address] 08/27/2024 9:00 AM EST Clinical Support [place] [address] documented as of this encounter Visit Diagnoses Not on filedocumented in this encounter Care Teams Gyn Relationship Specialty Start Date End Date Mike Goodman DNP [address] [place] [address] [place] [address] PCP - General Family Medicine 08/22/22 documented as of this encounter
--- OUTSIDE RECORDS SUMMARY | 2024-06-12 13:41 | XMS_ITS | Encounter Summary ---
Author Organization Counts Include [address] [facility] [address] Care Team Providers Care Oil Burner Servicer And Installer Name Role Phone Mike Goodman DNP Primary Care Provider [phone] Encounter Details Date Type Department Care Team (Latest Contact Info) Description 06/17/2023 Travel Social History Tobacco Use Types Packs/Day Years Used Date Smoking Tobacco: Former Cigarettes Q uit: 12/03/2003 Smokeless Tobacco: Never Alcohol Use Standard Drinks/Week Comments No 0 (1 standard drink = 0.6 oz pur e alcohol) Sex and Gender Information Value Date Recorded Sex Assigned at Not on file Gender Identity Not on file Sexual Orientation Not on file documented as of this encounter Plan of Treatment Upcoming Encounters Date Type Department Care Team (Late st Contact Info) Description 06/15/2024 3:00 PM EDT Hospital [place] [address] [place] [address] 07/09/2024 8:30 AM EDT Appointment XRay at [address] [phone] Alena [place] [address] 07/17/2024 8:00 AM EDT Procedure [place] [address] 08/26/2024 8:00 AM EST Office Visit [place] [address] 08/27/2024 9:00 AM EST Clinical Support [place] [address] documented as of this encounter Visit Diagnoses Not on filedocumented in this encounter Care Teams Oil Burner Servicer And Installer Relationship Specialty Start Date End Date Mike Goodman DNP [address] [place] [id number] PCP - General Family Medicine 08/22/22 documented as of this encounter
--- OUTSIDE RECORDS SUMMARY | 2024-06-12 13:41 | XMS_ITS | Encounter Summary ---
Author Organization [facility] [place] [address] Care Team Providers Care Subassembly Supervisor Name Role Phone Mike Goodman DNP Primary Care Provider [phone] Reason for Visit * Auth/Cert (Routine) Specialty Diagnoses / Procedures Referred By Martha broussard Referred To Contact Diagnoses possible internal Procedures PRO LAP, DX SURGICAL ABD W/BIOPSY PRO UPPER GI ENDOSCOPY, DIAGNOSTIC PRO UPPER GI ENDOSCOPY, BIOPSY PRO UP GI ENDOSCOPY, REMV TUMOR, SNARE PRO ANESTH, UGI ENDOSCOPY NOS LAPAROSCOPY,SURGICAL,WITH BIOPSY, SINGLE OR MULTIPLE (WRVU 5.44) EGD, UPPER GI ENDOSCOPY (WRVU 2.09) Sheridan Mosher MD [facility] [place] [address] [facility] Referral ID Status Reason Start Date Expiration Date Visits Re quested Visits Authorized [id number] 1 1 Encounter Details Date Type Department Care Team (Late st Contact Info) Description 07/16/2023 7:30 AM EDT - 07/16/2023 9:41 AM EDT [place] [phone] Sheridan Mosher MD [facility] DR AL SURGERY [place], [place] [id number] LAPAROSCOPY,SURGICAL,W ITH BIOPSY, SINGLE OR MULTIPLE (WRVU 5.44) Social History Tobacco Use Types Packs/Day Years [...] Sign Reading Time Taken Comments Blood Pressure 121/72 07/16/2023 9:30 AM EDT Pulse 70 07/16/2023 9:32 AM EDT Temperature 36 ??C (96.8 ??F) 07/16/2023 9:16 AM EDT Respiratory Rate 17 07/16/2023 9:32 AM EDT Oxygen Saturation 100% 07/16/2023 9:32 AM EDT Inhaled Oxygen Concentration - - Weight 69.4 kg (153 lb) 07/16/2023 6:16 AM EDT Height 154.9 cm (5' 1) 07/16/2023 6:16 AM EDT Body Mass Index 28.91 07/16/2023 6:16 AM EDT documented in this encounter Discharge Instructions * Patient Instructions* Joshua Medrano MD - 07/16/2023 9:21 AM EDT [facility] Department of GeneralSurgery Discharge Instructions CALL YOUR PHYSICIAN'S OFFICE IF: You have a fever greater than 101 degrees Farenheit (38.3C) within one month of your surgery. You have diarrhea or vomiting for >24 hours, stop having bowel movements and/or passing flatus, have pain with urination. You have worsening pain, not controlled with your pain medication. You develop redness, swelling, or new drainage from your wound. Medications: [x] Pain Control [x] Non-narcotic pain medication - We recommend taking tylenol as needed for pain control per the label instructions. [] Other Medication(s) - The remainder of your medications are listed in the first section of the After Visit Summary. Driving Restrictions: - No driving if you are too sore from surgery to enter or exit your vehicle comfortably, or if you are too sore to easily check your blind spot. No driving while using narcotic pain medications. Shower: - It is ok to shower starting on post operative day 2 (Friday). You can shower per usual routine and let soapy water run over your incision. Pat incision dry with a clean, dry towel. Do not submerge the wound under water (no swimming or soaking) for at least 6 weeks, or until approved by your surgeon. Diet: [x] You have been cleared to resume your usual diet. Activity: - It is normal to feel tired after surgery/hospitalization. Be as active as tolerated as this will improve recovery and prevent blood clots. - You should avoid any heavy lifting for 2-4 weeks after surgery. A gallon of milk is a good estimate of the maximum you should be lifting while your wounds heal. Wound/Incision Care: Closure: Your skin incision(s) are closed with: [x] Sutures - If your sutures are visible, they will need to be removed at a follow up appointment.If they are not visible, then they are underneath the skin and will dissolve. You may also have Steri strips covering your skin, which are strips of white tape that should fall off after ~10 days (ifnot, please remove manually). You may shower with them on. Infection: Observe for changes and alert the clinic if new/worsening redness or drainage. Things to avoid: Do not use creams, oils, or ointments on the wound. Keep wound open to air if it is not draining. Who to call? If you have concerns or questions: - During the day, it is best to call the General Surgery Clinic to speak with the Surgery nurses. The number is [phone]. - During the night or weekends call the [facility] toggle press operator at [phone] and ask to speak to the surgery resident organizational development consultant for general surgery. Please note: Your surgeon may not be Typists Supervisor, especially during the night or on weekends, so be ready to describe yourself and your surgery when you call. Follow up appointments: Future Appointments Date Time Provider Department Center 07/29/2023 6:30 PM [facility] MR 6 MH MRI [facility] Rad 08/12/2023 10:30 AM Jessica Tyler APRN [facility] SURG [facility] [x] Follow-up appointment with General Surgery has already been scheduled. Please call the clinic at [phone] to confirm or reschedule. documented in this encounter Medications at Time [...] needed. 05/03/2024 documented as of this encounter Progress Notes * Asa Wagoner RN - 07/16/2023 1:12 PM EDT Pt reports better pain control, see MAR. AVS reviewed with pt and with good understanding. IV removed without difficulty. Pt meets discharge criteria at this time. Pt discharged home with . Chika WHITNEY documented in this encounter H&P Notes * Francisco Javier Rader MD - 07/16/2023 6:29 AM EDT Pre-operative Interval H&P Planned Procedure: diagnostic laparoscopy, EGD Mora Bolanos is a 48 y.o. 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 She reports no interval change in her overall health since last seeing Dr. Mosher in clinic on 06/17/23 - please see clinic note for further details. VITALS: BP 109/76 Pulse 72 Temp 37 ??C (98.6 ??F) (Temporal) Resp 14 Ht 154.9 cm (5' 1) Wt 69.4 kg (153 lb) SpO2 98% BMI 28.91 kg/m?? EXAM: Gen: NAD CV: regular rate Pulm: unlabored respirations on RA Consent signed previously in clinic. All questions answered. Proceed with planned procedure. Francisco Javier Rader MD [id number] 07/16/2023 6:29 AM documented in this encounter Miscellaneous Notes * Op Note - Francisco Javier Rader MD - 07/16/2023 8:04 AM EDT [facility] Operative Note Patient Name: Mora Bolanos : [id number] MR#: [id number] Case Date: 07/16/2023 Surgeon: Surgeon(s) and Role: * Sheridan Mosher MD - Primary * Joshua Medrano MD - Resident - Assisting * Francisco Javier Rader MD - Fellow - Assisting Preoperative diagnosis: possible internal Postoperative diagnosis: possible internal Procedure(s) (LRB): LAPAROSCOPY,SURGICAL,WITH BIOPSY, SINGLE OR MULTIPLE (WRVU 5.44) (N/A) EGD, UPPER GI ENDOSCOPY (WRVU 2.09) (N/A) Findings: Adhesions from Analia limb to JJ causing kinking of the Analia limb. 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 Small hiatal hernia. Anesthesia: General Estimated Blood Loss: Specimens removed during surgery: None Drains: none Surgical Closure: Primary Closure - skin incision is completely closed without any wires, haley, drains or other devices Disposition: awakened from anesthesia, extubated and taken to the recovery room in a stable condition, having suffered no apparent untoward event. Condition: doing well without problems (Please see the Surgical Encounter Summary for any Implant and Specimen details pertinent to this patient.) HPI/Surgical Indications: Mora Bolanos is a 48 [...] condition having suffered no untoward event. Dr. Mosher was present for all critical portions of the procedure. Surgical Infection Prevention Bundle Used? N/A Francisco Javier Rader MD Associated attestation - Sheridan Mosher MD - 07/16/2023 5:58 PM EDT Attestation: Case Date: 07/16/2023 I was present and I participated during the entire procedure (does not need to include opening and closing). SHERIDAN MOSHER MD 07/16/2023 documented in this encounter Plan of Treatment Upcoming Encounters Date Type Department Care Team (Late st Contact Info) Description 06/15/2024 3:00 PM EDT Hospital [place] [address] [place] [address] 07/09/2024 8:30 AM EDT Appointment XRay at [address] [phone] [place] [address] 07/17/2024 8:00 AM EDT Procedure [place] [address] 08/26/2024 8:00 AM EST Office [place] [address] 08/27/2024 9:00 AM EST Clinical [place] [address] documented as of this encounter Procedures Procedure Name Priority Date/Time Associated Diagnosis Comments Upper GI Endoscopy, Diagnostic (71368) Yes 07/16/2023 7:30 AM EDT possible internal Lap, Dx Surgical Abd W/Biopsy (87478) Yes 07/16/2023 7:30 AM EDT possible internal POCT GLUCOSE Routine 07/16/2023 6:23 AM EDT UPPER GI ENDOSCOPY Routine 07/16/2023 6: 05 AM EDT LAPAROSCOPY,SURGICAL ,WITH BIOPSY, SINGLE OR MULTIPLE Routine 07/16/2023 6:05 AM EDT documented in this encounter Results * POCT Glucose (07/16/2023 6:23 AM EDT) Glucose, POC 82 65 - 199 mg/dL [facility] Comment: Supplemental ranges: <140 mg/dL before meals <180 mg/dL all other times of the day Blood 07/16/2023 6:23 AM EDT 07/16/2023 6:23 AM EDT Sheridan Mosher MD POINT OF CARE TEST O RDERACALVIN [facility] [place] [address] documented in this encounter Visit Diagnoses Not on filedocumented in this encounter Administered Medications Inactive Administered Medications - up to 3 most recent administrations Medication Order MAR Action Action Date Dose Rate Site acetaminophen (Tylenol) tablet 975 mg 975 mg, Oral, ONCE, 1 dose, On Fri07/16/23 at 0715, Maximum dose of acetaminophen is 4,000 mg from all sources in 24 hours. When ordered for pain, acetaminophen should be given even when other ordered pain medications are indicated. , Day of Surgery (Day of Procedure), Routine Given 07/16/2023 7:18 AM EDT 975 mg BUpivacaine (pf) (Marcaine) (2.5 mg/mL) 0.25% injection PRN, Starting on Fri07/16/23 at 0900, Until Fri07/16/23 at 1517, Intra-Operative (Intra-Procedure), Routine Given 07/16/2023 9:00 AM EDT 30 mLs 19- Surgical Site calcium carbonate (TUMS) chewable tablet 1,000 mg 1,000 mg, Oral, EVERY 6 HOURS PRN, Starting on Fri07/16/23 at 1029, Until Fri07/16/23 at 1517, Heartburn, Routine Given 07/16/2023 10:31 AM EDT 1,000 mg heparin (porcine) (5,000 units/1 mL) subcutaneous injection 5,000 Units 5,000 Units, Subcutaneous, ONCE, 1 dose, On Fri07/16/23 at 0715, Day of Surgery (Day of Procedure), Routine Given 07/16/2023 7:18 AM EDT 5,000 Units HYDROmorphone (Dilaudid) (0.2 mg/1 mL) injection syringe 0.4 mg 0.4 mg, Intravenous, EVERY 10 MIN PRN, Starting on Fri07/16/23 at 0928, Until Fri07/16/23 at 1312, Pain, For Moderate to Severe Pain (6-10 out of 10), Hold for respiratory rate less than 10 per minute. Maximum dose 2 mg over one hour including administrations in the OR. If multiple pain medications are ordered, start with HYDROmorphone and use fentaNYL for breakthrough pain. Notify anesthesia team if the maximum of 100 mcg of fentaNYL AND 2 mg of HYDROmorphone has been administered and patient still complains of moderate to severe pain (6-10)., PACU Recovery, Routine Given 07/16/2023 10:46 AM EDT 0.4 mg Given 07/16/2023 9:53 AM EDT 0.4 mg Given 07/16/2023 9:32 AM EDT 0.4 mg ketorolac (Toradol) (15 mg/mL) injection 30 mg 30 mg, Intravenous, ONCE, 1 dose, On Fri07/16/23 at 1045, PACU Recovery, Routine Given 07/16/2023 10:21 AM EDT 30 mg oxyCODONE (Roxicodone) tablet 5 mg 5 mg, Oral, ONCE PRN, 1 dose, Starting on Fri07/16/23 at 1218, Until Fri07/16/23 at 1230, Pain, Routine Given 07/16/2023 12:30 PM EDT 5 mg documented in this encounter Active and Recently Administered Medications Times are shown in EDT. Scheduled Medication Order 07/14/2023 07/15/2023 07/16/2023 acetaminophen (Tylenol) tablet 975 mg (COMPLETED) 975 mg, Oral, ONCE, 1 dose, On Fri07/16/23 at 0715, Maximum dose of acetaminophen is 4,000 mg from all sources in 24 hours. When ordered for pain, acetaminophen should be given even when other ordered pain medications are indicated. , Day of Surgery (Day of Procedure), Routine 0718 (Given - Provid er: Alexandra Rubi RN) ceFAZolin (Ancef) 2 g vial attach to sodium chloride 0.9% 100 mL Mini-Bag Plus (COMPLETED) 2 g, Intravenous, EVERY 4 HOURS, 1 dose, First dose on Fri07/16/23 at 0715, Administer over 30 Minutes, Intra-Operative (Intra-Procedure), Indication for (Active or Suspected): Prophylaxis 0752 (New Bag - Prov ider: Jayleen Lee) heparin (porcine) (5,000 units/1 mL) subcutaneous injection 5,000 Units (COMPLETED) 5,000 Units, Subcutaneous, ONCE, 1 dose, On Fri07/16/23 at 0715, Day of Surgery (Day of Procedure), Routine 0718 (Given - Provid er: Alexandra Rubi RN) ketorolac (Toradol) (15 mg/mL) injection 30 mg (COMPLETED) 30 mg, Intravenous, ONCE, 1 dose, On Fri07/16/23 at 1045, PACU Recovery, Routine 1021 (Given - Provid er: Asa Wagoner RN) PRN Medication Order 07/14/2023 07/15/2023 07/16/2023 BUpivacaine (pf) (Marcaine) (2.5 mg/mL) 0.25% injection (CANCELED) PRN, Starting on Fri07/16/23 at 0900, Until Fri07/16/23 at 1517, Intra-Operative (Intra-Procedure), Routine 0900 (Given - Provid er: Sheridan Mosher MD) calcium carbonate (TUMS) chewable tablet 1,000 mg 1,000 mg, Oral, EVERY 6 HOURS PRN, Starting on Fri07/16/23 at 1029, Until Fri07/16/23 at 1517, Heartburn, Routine 1031 (Given - Provid er: Asa Wagoner RN) HYDROmorphone (Dilaudid) (0.2 mg/1 mL) injection syringe 0.4 mg (CANCELED)(Linked Group 1) 0.4 mg, Intravenous, EVERY 10 MIN PRN, Starting on Fri07/16/23 at 0928, Until Fri07/16/23 at 1312, Pain, For Moderate to Severe Pain (6-10 out of 10), Hold for respiratory rate less than 10 per minute. Maximum dose 2 mg over one hour including administrations in the OR. If multiple pain medications are ordered, start with HYDROmorphone and use fentaNYL for breakthrough pain. Notify anesthesia team if the maximum of 100 mcg of fentaNYL AND 2 mg of HYDROmorphone has been administered and patient still complains of moderate to severe pain (6-10)., PACU Recovery, Routine 0932 (Given - Provid er: Asa Wagoner RN)0953 (Given - Provider: Asa Wagoner RN)1046 (Given - Provider: Asa Wagoner RN) oxyCODONE (Roxicodone) tablet 5 mg (COMPLETED) 5 mg, Oral, ONCE PRN, 1 dose, Starting on Fri07/16/23 at 1218, Until Fri07/16/23 at 1230, Pain, Routine 1230 (Given - Provid er: Asa Wagoner RN) Linked Groups Order Group 1: HYDROmorphone (Dilaudid) (0.2 mg/1 mL) injection syringe 0.2 mg (CANCELED) 0.2 mg, Intravenous, EVERY 10 MIN PRN, Starting on Fri07/16/23 at 0928, Until Fri07/16/23 at 1312, Pain, For Mild to Moderate Pain (1-5 out of 10), Hold for respiratory rate less than 10 per minute. Maximum dose 2 mg over one hour including administrations in the OR. If multiple pain medications are ordered, start with HYDROmorphone and use fentaNYL for breakthrough pain. Notify anesthesia team if the maximum of 100 mcg of fentaNYL AND 2 mg of HYDROmorphone has been administered and patient still complains of moderate to severe pain (6-10)., PACU Recovery, Routine Or HYDROmorphone (Dilaudid) (0.2 mg/1 mL) injection syringe 0.4 mg (CANCELED)Jump to med 0.4 mg, Intravenous, EVERY 10 MIN PRN, Starting on Fri07/16/23 at 0928, Until Fri07/16/23 at 1312, Pain, For Moderate to Severe Pain (6-10 out of 10), Hold for respiratory rate less than 10 per minute. Maximum dose 2 mg over one hour including administrations in the OR. If multiple pain medications are ordered, start with HYDROmorphone and use fentaNYL for breakthrough pain. Notify anesthesia team if the maximum of 100 mcg of fentaNYL AND 2 mg of HYDROmorphone has been administered and patient still complains of moderate to severe pain (6-10)., PACU Recovery, Routine documented in this encounter Care Teams Subassembly Supervisor Relationship Specialty Start Date End Date Mike Goodman, KYLE [address] [place] [address] PCP - General Family Medicine 08/22/22 documented as of this encounter
--- OUTSIDE RECORDS SUMMARY | 2024-06-12 13:41 | XMS_ITS | Encounter Summary ---
Author Organization [facility] [place] [address] Care Team Providers Care Developmental Education Instructor Name Role Phone Mike Goodman DNP Primary Care Provider [phone] Reason for Visit * Auth/Cert (Routine) Specialty [...] GI ENDOSCOPY (WRVU 2.09) Sheridan Mosher MD [facility] [place] [address] [facility] Referral ID Status Reason Start Date Expiration Date Visits Re quested Visits Authorized [id number] 1 1 Encounter Details Date Type Department Care Team (Latest Contact Info) Description 07/16/2023 5:55 AM EDT - 07/16/2023 1:17 PM EDT Hospital Encounter [place] [phone] Sheridan Mosher MD [facility] [place] [address] Discharge Disposition: Home Social History Tobacco Use [...] Sign Reading Time Taken Comments Blood Pressure 108/72 07/16/2023 11:45 AM EDT Pulse 64 07/16/2023 11:45 AM EDT Temperature 37.5 ??C (99.5 ??F) 07/16/2023 12:45 PM E DT Respiratory Rate 13 07/16/2023 11:45 AM EDT Oxygen Saturation 94% 07/16/2023 11:45 AM EDT Inhaled Oxygen Concentration - - Weight 69.4 kg (153 lb) 07/16/2023 6:16 AM EDT Height 154.9 cm (5' 1) 07/16/2023 6:16 AM EDT Body Mass Index 28.91 07/16/2023 6:16 AM EDT documented in this encounter Discharge Instructions * Patient Instructions* Joshua Medrano MD - 07/16/2023 9:21 AM EDT [facility] Department of GeneralSurgery Discharge Instructions CALL YOUR [...] with the Surgery nurses. The number is [phone]. - During the night or weekends call the [facility] latex thread machine operator at [phone] and ask to speak to the surgery resident supervisor home energy consultant for general surgery. Please note: Your surgeon may not be Steward/Stewardess Banquet, especially during the night or on weekends, so be ready to describe yourself and your surgery when you call. Follow up appointments: Future Appointments Date Time Provider Department Center 07/29/2023 6:30 PM [facility] MR 6 MH MRI [facility] Rad 08/12/2023 10:30 AM Jessica Tyler APRN [facility] SURG [facility] [x] Follow-up appointment with General Surgery has already been scheduled. Please call the clinic at [phone] to confirm or reschedule. documented in this [...] Rader MD - 07/16/2023 8:04 AM EDT [facility] Operative Note Patient Name: Mora Bolanos : [id number] MR#: [id number] Case Date: 07/16/2023 Surgeon: Surgeon(s) and Role: [...] PM EDT Hospital [place] [address] [place] [address] 07/09/2024 8:30 AM EDT Appointment XRay at [address] [phone] Alena Pizarro, [place] [address] 07/17/2024 8:00 AM EDT Procedure [place] [address] 08/26/2024 8:00 AM EST Office [place] [address] 08/27/2024 9:00 AM EST Clinical [place] [address] documented as of this encounter Procedures Procedure Name Priority Date/Time Associated Diagnosis Comments Upper GI Endoscopy, Diagnostic (66722) Yes 07/16/2023 7:30 AM EDT possible internal Lap, Dx Surgical Abd W/Biopsy (70406) Yes 07/16/2023 7:30 AM EDT possible internal POCT GLUCOSE Routine 07/16/2023 6:23 AM EDT UPPER GI ENDOSCOPY Routine 07/16/2023 6: 05 AM EDT LAPAROSCOPY,SURGICAL ,WITH BIOPSY, SINGLE OR MULTIPLE Routine 07/16/2023 6:05 AM EDT documented in this encounter Results * POCT Glucose (07/16/2023 6:23 AM EDT) Glucose, POC 82 65 - 199 mg/dL [facility] Comment: Supplemental ranges: <140 mg/dL before meals <180 mg/dL all other times of the day Blood 07/16/2023 6:23 AM EDT 07/16/2023 6:23 AM EDT Sheridan Mosher MD POINT OF CARE TEST O PATRICIA [facility] [place] [address] documented in this encounter Visit Diagnoses Not [...] Given 07/16/2023 7:18 AM EDT 975 mg calcium carbonate (TUMS) chewable tablet 1,000 mg [...] Day of Surgery (Day of Procedure), Routine 717 (Given - Provid er: Alexandra Rubi RN) ceFAZolin (Ancef) 2 g vial attach to sodium chloride 0.9% 100 mL Mini-Bag Plus (COMPLETED) 2 g, Intravenous, EVERY 4 HOURS, 1 dose, First dose on Fri07/16/23 at 0715, Administer over 30 Minutes, Intra-Operative (Intra-Procedure), Indication for (Active or Suspected): Prophylaxis 751 (New Bag - Prov ider: Jayleen Lee) [...] Heartburn, Routine 1031 (Given - Provid er: sAa Wagoner RN) HYDROmorphone (Dilaudid) (0.2 mg/1 mL) [...] Routine documented in this encounter Care Teams Developmental Education Instructor Relationship Specialty Start Date End Date Mike Goodman DNP [address] [place] [address] PCP - General Family Medicine 08/22/22 documented as of this encounter
--- OUTSIDE RECORDS SUMMARY | 2024-06-12 13:41 | XMS_ITS | Encounter Summary ---
Author Organization [facility] Address [facility] [place] [address] Care Team Providers Care Lotteries Agent Name Role Phone Mike Goodman DNP Primary Care Provider [phone] Encounter Details Date Type Department Care Team (Latest Contact Info) Description 01/15/2024 Travel Social History Tobacco Use Types Packs/Day Years Used Date Smoking Tobacco: Former Cigarettes Q uit: 12/03/2003 Smokeless Tobacco: Never Alcohol Use Standard Drinks/Week Comments No 0 (1 standard drink = 0.6 oz pur e alcohol) [facility] Utilities Answer Date Recorded In [...] PM EDT Hospital [place] [address] Alena Pizarro [place] [address] 07/09/2024 8:30 AM EDT Appointment XRay at [address] [address] Alena Pizarro [place] [address] 07/17/2024 8:00 AM EDT Procedure [place] [address] 08/26/2024 8:00 AM EST Office [place] [address] 08/27/2024 9:00 AM EST Clinical Support Gastroenterology at [place] [id number] documented as of this encounter Visit Diagnoses Not on filedocumented in this encounter Care Teams Lotteries Agent Relationship Specialty Start Date End Date Mike Goodman DNP [address] [place] [address] PCP - General Family Medicine 08/22/22 documented as of this encounter
--- OUTSIDE RECORDS SUMMARY | 2024-06-12 13:41 | XMS_ITS | Encounter Summary ---
Author Organization [facility] [place] [address] Care Team Providers Care Digital Press Operator Name Role Phone Mike Goodman DNP Primary Care Provider [phone] Encounter Details Date Type Department Care Team (Latest Contact Info) Description 08/19/2023 Travel Social History Tobacco Use Types Packs/Day [...] PM EDT Hospital [place] [address] [place] [address] 07/09/2024 8:30 AM EDT Appointment XRay at [address] [phone] [place] [address] 07/17/2024 8:00 AM EDT Procedure [place] [address] 08/26/2024 8:00 AM EST Office [place] [address] 08/27/2024 9:00 AM EST Clinical [place] [address] documented as of this encounter Visit Diagnoses Not on filedocumented in this encounter Care Teams Digital Press Operator Relationship Specialty Start Date End Date Mike Godoman DNP [address] [place] [address] [place] [address] PCP - General Family Medicine 08/22/22 documented as of this encounter
--- OUTSIDE RECORDS SUMMARY | 2024-06-12 13:41 | XMS_ITS | Encounter Summary ---
Author Organization [facility] [place] [address] Care Team Providers Care Speech Language Pathology Assistant Name Role Phone Mike Goodman DNP Primary Care Provider [phone] Reason for Visit * Auth/Cert (Routine) Specialty Diagnoses / Procedures Referred By Martha broussard Referred To Contact Diagnoses possible internal Procedures PRO LAP, DX SURGICAL ABD W/BIOPSY PRO UPPER GI ENDOSCOPY, DIAGNOSTIC PRO UPPER GI ENDOSCOPY, BIOPSY PRO UP GI ENDOSCOPY, REMV TUMOR, SNARE PRO ANESTH, UGI ENDOSCOPY NOS LAPAROSCOPY,SURGICAL,WITH BIOPSY, SINGLE OR MULTIPLE (WRVU 5.44) EGD, UPPER GI ENDOSCOPY (WRVU 2.09) Sheridan Cassidy MD [facility] [place] [address] [facility] Referral ID Status Reason Start Date Expiration Date Visits Re quested Visits Authorized [id number] 1 1 Encounter Details Date Type Department Care Team (Late st Contact Info) Description 07/16/2023 7:32 AM EDT Anesthesia Event [place] [phone] Clay Alaniz MD [facility] [place] [address] Jayleen Lee Anesthesia Record Procedure Summary Procedure Name Responsible Anesthesiologist Anesthesia Start Time Anesthesia Stop Time LAPAROSCOPY,SURGICA L,WITH BIOPSY, SINGLE OR MULTIPLE (WRVU 5.44) (Abdomen) Clay Alaniz MD 07/16/23 0732 07/16/23 0917 Events Date Time Event Comment 07/16/2023 0718 0732 AN Verify 0732 Start 0732 An Start Data 0745 An Induction 0746 An Intubation 0747 Anesthesia Ready 0807 Quick Note Abdominal insuf flation 0834 Break/Relief In I assumed ca re for Break Relief before which we: 1. Identified the patient 2. Identified the responsible provider(s) 3. Reviewed the pertinent medical history 4. Discussed the surgical plan and course 5. Reviewed intra-op anesthesia management and issues during anesthesia 6. Set expectations for the relief (and/or post-procedure) period 7. Allowed opportunity for questions and acknowledgement of understanding Ana Maria Garces CRNA 0850 Break/Relief Out 0911 Extubation/LMA Out 0913 an stop data 0917 Recovery or ICU Handoff Candelaria ent care was transferred to the destination unit staff after review of the patient's medical history, current anesthetic/surgical status and plan, according to the Provider Handoff Checklist. 0917 Stop Meds Name Total Midazolam 2 mg fentaNYL 100 mcg IV Lidocaine 50 mg Propofol 150 mg Propofol INF 817.19 mg ceFAZolin (Ancef) 2 g vial a ttach to sodium chloride 0.9% 100 mL Mini-Bag Plus 2 g Ondansetron 4 mg Dexamethasone 8 mg Succinylcholine 80 mg Rocuronium 50 mg Sugammadex 140 mg PHENYLephrine 160 mcg Lactated Ringers 500 mL * Agents Name O2 * Blood No blood administrations on file. Lines, Drains, and Airways Type Details Placement Removal Incision 07/16/23; 0804; Bila teral, anterior; abdomen; laparoscopic punctures (specify) (trocars (x4)) 07/16/23 0804 by Fuad King RN PIV 07/16/23; 0658; [id number] catheter system; 20 gauge; cephalic vein (lateral side of arm), right; Anatomical Landmarks; VERA Clemens; distraction, tolerated well, appears comfortable; 07/16/23; 1311 07/16/23 0658 by Bong Thompson RN 07/16/23 1311 by Asa Wagoner RN ETT Mask Ventilation: No t Attempted (0); ETT Type: Cuffed, Oral; ETT Size: 7 mm; Mac Blade: 3; Notes: Asleep, Pre-O2, Cricoid Pressure, Stylette; Attempts: 1; Laryngoscopy Grade: 1; ETT Placement Verified By: Auscultation, Capnometry, Visual; Secured at Teeth: 21 cm; Inserted by: SILKE Molina; Removal Date: 07/16/23; Removal Time: 91007/16/23745 by Jayleen Lee 07/16/23910 by Ana Maria Garces CRNA documented in this encounter Social History Tobacco Use Types Packs/Day Years [...] on file documented as of this encounter OR Notes * Anesthesia Postprocedure Evaluation - Clay Alaniz MD - 07/16/2023 10:19 AM EDT Department of Anesthesiology Post-procedure Note Patient: Mora Bolanos Procedure Summary Date: 07/16/23 Room / Location: [facility] OR [address] [place] [address] MAIN OR Anesthesia Start: 731 Anesthesia Stop: 916 Procedures: LAPAROSCOPY,SURGICAL,WITH BIOPSY, SINGLE OR MULTIPLE (WRVU 5.44) (Abdomen) EGD, UPPER GI ENDOSCOPY (WRVU 2.09) (Esophagus) Diagnosis: (possible internal) Surgeons: Sheridan Cassidy MD Responsible Provider: Clay Alaniz MD Anesthesia Type: general ASA Status: 3 All Anesthesia Providers: Anesthesiologist: Clay Alaniz MD MEDICAL RESEARCH ASSISTANT: O'Ihsan, Ana Maria M, MEDICAL RESEARCH ASSISTANT Student Nurse Medical Scientific Liaison: Jayleen Lee Vitals Value Taken Time BP 128/78 07/16/23 1015 Temp 36 ??C (96.8 ??F) 07/16/23 0916 Pulse 80 07/16/23 1018 Resp 11 07/16/23 1018 SpO2 92 % 07/16/23 1018 Pain Level 6 07/16/23 0953 Vitals shown include unfiled device data. Patient Location: PACU/[facility] Level of Consciousness: Awake and Alert Pain Management: Pain Being Addressed PONV: Cardiovascular Status: At Baseline Respiratory Status: At Baseline Postoperative Fluid Status: Intravascular EUvolemia Possible Anesthetic Complications: NONE apparent at time of evaluation Final Primary Anesthesia Type: General (The anesthetic type performed was the same as planned.) Comments: Significant post procedural pain. Will add single dose ketorolac and additional dilaudid and reevaluate * Anesthesia Preprocedure Evaluation - Clay Alaniz MD - 07/15/2023 3:56 PM EDT Pre-Anesthesia Evaluation for: Mora Bolanos a 48 y.o. female. Procedure(s): LAPAROSCOPY,SURGICAL,WITH BIOPSY, SINGLE OR MULTIPLE (WRVU 5.44) EGD, UPPER GI ENDOSCOPY (WRVU 2.09) Patient Active Problem List Diagnosis Date Noted ??? Paroxysmal SVT (supraventricular tachycardia) 10/22/2022 ??? Chest pressure 10/22/2022 ??? Lipid screening 10/22/2022 ??? S/P partial gastrectomy 11/26/2017 ??? Gastroesophageal reflux 01/14/2011 ??? Dyspepsia 01/14/2011 ??? Disorder of female genital organ 08/16/2009 ??? Endometriosis of other specified sites 08/09/2009 ??? Nausea 08/09/2009 No past medical history on file. Past Surgical History: Procedure Laterality Date ??? PRO UNLISTED LAPAROSCOPIC PROCEDURE ESOPHAGUS 11/25/2012 LAPAROSCOPIC REVISION OF GABRIELLA FUNDOPLASTY performed by Sheridan Cassidy MD at [facility] MAIN OR ??? PRO UNLISTED LAPAROSCOPIC PROCEDURE ESOPHAGUS N/A 11/26/2017 LAPAROSCOPIC REVISION OF GABRIELLA FUNDOPLASTY (WRVU *) performed by Sheridan Cassidy MD at [facility] MAIN OR ??? PRO UNLISTED LAPAROSCOPIC PROCEDURE STOMACH N/A 11/26/2017 LAPAROSCOPIC GASTRECTOMY, PARTIAL, W EVIN-EN-Y RECONSTRUCTION (WRVU *) performed by Sheridan Cassidy MD at [facility] OR ??? PRO UPPER GI ENDOSCOPY, BIOPSY 09/04/2012 EGD WITH BIOPSY performed by Didier Jones MD at [facility] ENDOSCOPY ??? PRO UPPER GI ENDOSCOPY, BIOPSY N/A 07/22/2016 UPPER GASTROINTESTINAL ENDOSCOPY,WITH BIOPSY SINGLE OR MULTIPLE performed by Sheridan Cassidy MD [facility] ENDOSCOPY ??? PRO UPPER GI ENDOSCOPY, BIOPSY N/A 10/20/2017 EGD WITH BIOPSY (WRVU 2.49) performed by Sheridan Cassidy MD at [facility] ENDOSCOPY ??? PRO UPPER GI ENDOSCOPY, BIOPSY N/A 03/09/2018 EGD WITH BIOPSY (WRVU 2.49) performed by Sheridan Cassidy MD at [facility] ENDOSCOPY ??? PRO UPPER GI ENDOSCOPY, DIAGNOSTIC 11/25/2012 ENDOSCOPY, UPPER GI, DIAGNOSTIC, WITH OR WITHOUT SPECIMENS performed by Sheridan Cassidy MD at [facility] OR ??? PRO UPPER GI ENDOSCOPY, DIAGNOSTIC 07/18/2014 EGD, UPPER GI ENDOSCOPY performed by Sheridan Cassidy MD at [facility] ENDOSCOPY ??? PRO UPPER GI ENDOSCOPY, DIAGNOSTIC N/A 11/26/2017 ENDOSCOPY, UPPER GI, DIAGNOSTIC, WITH OR WITHOUT SPECIMENS performed by Sheridan Cassidy MD at [facility] OR ??? PRO UPPER GI ENDOSCOPY, DIAGNOSTIC N/A 01/08/2021 EGD, UPPER GI ENDOSCOPY performed by Sheridan Cassidy MD at [facility] ENDOSCOPY ??? UPPER GI ENDOSCOPY, EXAM 09/04/2012 UPPER GI ENDOSCOPY performed by Didier Jones MD at [facility] ENDOSCOPY Social History Tobacco Use ??? Smoking status: Former Packs/day: 1 Types: Cigarettes Quit date: 12/03/2003 Years since quittin.6 ??? Smokeless tobacco: Never Substance Use Topics ??? Alcohol use: No Social History Substance and Sexual Activity Drug Use No Allergies Allergen Reactions ??? Onion Anaphylaxis ??? Bupropion Hcl Other (See Comments) serum sickness ??? Metoclopramide Hcl Other (See Comments) Unknown Medications: MAR and/or home medications have been reviewed. Physical Exam: Preprocedure Vitals Current as of 07/15/23 1556 No BP, pulse, respiration, SpO2, or temperature recorded. Height: Weight: BMI: IBW: Airway Assessment: Mallampati: II TM distance: >3 FB Neck ROM: full Cardiovascular Assessment: Rhythm: regular Rate: normal Pulmonary Assessment: breath sounds clear to auscultation Dental Assessment: - normal exam Misc Assessment: Last Filed Perioperative Cognitive Screening None Anesthesia Plan: ASA 3 general, with a(n) intravenous induction Pleasant 48yo 69kg F presents for laparoscopy and EGD. Prior Gabriella with subsequent revisions, and gastric bypass surgery, now presenting with GERD and abdominal pain. Most recently Mac 3 RSI Grade: 1 - appropriately fasted Prior cardiology workup for SVT. 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 Echocardiogram: December 2022, left ventricle normal size, LVEF 56%, LA normal, RA normal, ventricularectopy noted during study CT angiogram of coronary arteries: November 2022, coronary calcium score 0. No significant findings ofthe cardiac chambers, no significant findings of the great vessels. Region - Other Informed Consent: Anesthetic plan and risks discussed with patient and spouse. Plan discussed with MEDICAL RESEARCH ASSISTANT. Anesthesia Screening documented in this encounter Plan of Treatment Upcoming Encounters Date Type Department Care Team (Late st Contact Info) Description 06/15/2024 3:00 PM EDT Hospital [place] [address] Alena Pizarro PHARMACY [place] [address] 07/09/2024 8:30 AM EDT Appointment XRay at [address] [phone] [place] [address] 07/17/2024 8:00 AM EDT Procedure visit [place] [address] 08/26/2024 8:00 AM EST Office [place] [address] 08/27/2024 9:00 AM EST Clinical [place] [address] documented as of this encounter Visit Diagnoses Not on filedocumented in this encounter Administered Medications Inactive Administered Medications - up to 3 most recent administrations Medication Order MAR Action Action Date Dose Rate Site ceFAZolin (Ancef) 2 g vial attach to sodium chloride 0.9% 100 mL Mini-Bag Plus 2 g, Intravenous, EVERY 4 HOURS, 1 dose, First dose on Fri07/16/23 at 0715, Administer over 30 Minutes, Intra-Operative (Intra-Procedure), Indication for (Active or Suspected): Prophylaxis New Bag 07/16/2023 7:52 AM EDT 2 g dexAMETHasone (Decadron) injection Intravenous, PRN, Starting on Fri07/16/23 at 0746, Until Fri07/16/23 at 0919, Anesthesia Intra-op, Routine Given 07/16/2023 7:51 AM EDT 8 mg fentaNYL (pf) (50 mcg/mL) multi-dose injection Intravenous, PRN, Starting on Fri07/16/23 at 0748, Until Fri07/16/23 at 0919, Anesthesia Intra-op, Routine Given 07/16/2023 7:50 AM EDT 50 mcg Given 07/16/2023 7:48 AM EDT 50 mcg lactated ringers infusion Intravenous, CONTINUOUS PRN, Starting on Fri07/16/23 at 0729, Until Fri07/16/23 at 0919, Anesthesia Intra-op New Bag 07/16/2023 7:29 AM EDT lidocaine (pf) (Xylocaine) (20 mg/mL) 2% injection syringe Intravenous, PRN, Starting on Fri07/16/23 at 0745, Until Fri07/16/23 at 0919, Anesthesia Intra-op, Routine Given 07/16/2023 7:45 AM EDT 50 mg midazolam (pf) (Versed) (1 mg/mL) multi-dose injection Intravenous, PRN, Starting on Fri07/16/23 at 0729, Until Fri07/16/23 at 0919, Anesthesia Intra-op, Routine Given 07/16/2023 7:29 AM EDT 2 mg ondansetron (pf) (Zofran) (2 mg/mL) injection Intravenous, PRN, Starting on Fri07/16/23 at 0855, Until Fri07/16/23 at 0919, Anesthesia Intra-op, Routine Given 07/16/2023 8:55 AM EDT 4 mg PHENYLephrine in NS (PF) (RAS-SYNEPHRINE) 0.8 mg/10 mL (80 mcg/mL) multi-dose injection Syringe Intravenous, PRN, Starting on Fri07/16/23 at 0757, Until Fri07/16/23 at 09, Anesthesia Intra-op, Routine Given 07/16/2023 8:04 AM EDT 80 mcg Given 07/16/2023 7:57 AM EDT 80 mcg propofoL (Diprivan) (10 mg/mL) infusion Intravenous, CONTINUOUS PRN, Starting on Fri07/16/23 at 0746, Until Fri07/16/23 at 09, Anesthesia Intra-op, Routine Rate/Dose Change 07/16/2023 8:45 AM EDT 100 mcg/kg/min 41.64 mL/hr Rate/Dose Change 07/16/2023 8:29 AM EDT 150 mcg/kg/min 62. 46 mL/hr Rate/Dose Change 07/16/2023 8:00 AM EDT 175 mcg/kg/min 72. 87 mL/hr propofoL (Diprivan) 10 mg/mL bolus injection (Anesthesia) Intravenous, PRN, Starting on Fri07/16/23 at 0745, Until Fri07/16/23 at 0919, Anesthesia Intra-op Given 07/16/2023 7:45 AM EDT 150 mg rocuronium (Zemuron) 10 mg/mL injection Intravenous, PRN, Starting on Fri07/16/23 at 0752, Until Fri07/16/23 at 0919, Anesthesia Intra-op, Routine Given 07/16/2023 8:42 AM EDT 10 mg Given 07/16/2023 8:03 AM EDT 20 mg Given 07/16/2023 7:52 AM EDT 20 mg succinylcholine (Anectine;Quelicin) (20 mg/mL) injection Intravenous, PRN, Starting on Fri07/16/23 at 0745, Until Fri07/16/23 at 0919, Anesthesia Intra-op, Routine Given 07/16/2023 7:45 AM EDT 80 mg sugammadex (Bridion) 100 mg/mL injection Intravenous, PRN, Starting on Fri07/16/23 at 0900, Until Fri07/16/23 at 0919, Anesthesia Intra-op, Routine Given 07/16/2023 9:00 AM EDT 140 mg documented in this encounter Care Teams Speech Language Pathology Assistant Relationship Specialty Start Date End Date Mike Goodman DNP [address] [place] [address] PCP - General Family Medicine 08/22/22 documented as of this encounter
--- OUTSIDE RECORDS SUMMARY | 2024-06-12 13:42 | XMS_ITS | Encounter Summary ---
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; Hiatal hernia with GERD Social History Tobacco Use Types Packs/Day Years [...] PM EDT Hospital [place] [address] [place] [address] 07/09/2024 8:30 AM EDT Appointment XRay at [address] [address] [place] [address] 07/17/2024 8:00 AM EDT Procedure [place] [address] 08/26/2024 8:00 AM EST Office [place] [address] 08/27/2024 9:00 AM EST Clinical [place] [address] Scheduled Referrals Name Type Priority Associated Diagnoses Order Schedule Referral to Gastroenterology Outpatient Referral Routine S/P partial gastrectomy Elevated LFTs Syncope, unspecified syncope type 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
--- OUTSIDE RECORDS SUMMARY | 2024-06-12 13:42 | XMS_ITS | Encounter Summary ---
Author Organization [facility] Address [facility] [place] [address] Care Team Providers Care Concrete Layer Name Role Phone Laura Ross LOUIE Primary Care Provider [phone] Encounter Details Date Type Department Care Team (Late st Contact Info) Description 01/02/2021 8:45 AM EDT Office [place] [address] Sheridan Cassidy MD [facility] [place] [address] S/P partial gastrectomy (Primary Dx); Nausea; Inadequate nutrition; Gastroesophageal reflux disease, unspecified whether esophagitis present Social History Tobacco Use Types Packs/Day Years [...] encounter Patient Instructions * Patient Instructions* Lisa Grady APRN - 01/02/2021 8:45 AM EDT BSP sales support manager Ana Maria [phone] and Lawanda [phone] Dietitians: [phone] Surgeons/ nurse practitioners: [phone] Nurse line: [phone] Dear Mora, Please see your electronic medical record note from today for details we discussed at your visit. Below is some additional general information that you may find helpful. Testing: It would be helpful if you can have your lab work drawn a couple days before your visit uriel [facility] facility so the results are available at the time of your follow up visit. If you have labwork done by your primary acute care nursing assistant before that date, please have a copy sent to the Bariatric Surgery Program. Please call/send my message if you have not heard from us within 2 weeks of having labs work done. Here's the link to [facility] Lab hours and locations: [email or web address] Next visit: Follow up visits are done at 4 months and 12 months after surgery and yearly thereafter. Some patients are evaluated on a more frequent basis. Please call [phone] if you do not receive an appointment by 3-4 weeks prior to the expected visit. Vitamins/Nutrition/Activity Recommendations: Please see your visit note for personalized recommendations General Vitamin recommendations: ??? Multivitamins with minerals twice daily- needs to be an under 50 multivitamin that contains iron. ??? Vitamin B12 500 mcg by mouth once daily ??? Calcium citrate 500-600 mg with Vitamin D 400 units twice daily (600 mg in AM and 600 mg in PM-2 pills twice a day) (or 1 chewable twice a day) ??? Iron supplement: as specified in today's visit ??? Vitamin D: as specified in today's visit General Nutrition recommendations: ?? 1,000-1,200 calories per day (300 calories per meal, 100 calories per snack, 1-2 snacks per day) ?? 60 grams of protein per day (20 grams per meal) ?? 48-64 oz of non-caloric and hydrating fluids per day (6-8, 8 oz cups) ?? Do not drink with meals- pushes food through more quickly, can cause upset stomach Activity: ??? Aim for 30 minutes of exercise daily, 5 days a week of both cardio and strength training exercises. Skinfold care: 1. Cleanse area with soap and water. 2. Blow dry area on low setting with astronomy department chair. 3. Avoid excessive heat and/or sweating as friction and moisture can exacerbate disease. 4. Try OTC Dove clinical strength anti perspirant to affected areas nightly or an absorbent powder such as Gold Flores and Desinex 5. Apply cotton strips (such as strips from old sheets) or larger size cotton underwear folded beneath skin folds to act as a wick. Do not apply carlo cloth toweling which can cause further irritation 6. Try combination of over the counter hydrocortisone cream with over the counter antifungal cream such as lotrimin twice a day for 2 weeks. 7. If your symptoms do not improve you may require prescription of anti-fungal cream/powder. 8. Follow up with PCP if symptoms worsen/fail [...] day Nausea: Common causes for nausea post gastric bypass surgery are: Eating too fast, eating too much,drinking with meals, or not chewing well enough. Be sure to eat slowly and chew food well. Take at least 30 minutes or more to eat a meal. [...] such as Ibuprofen (Advil), Aleve (Naproxen), Excedrin, Michell-Lewellen should be used sparingly after gastric bypass, since they increase the risk of ulcer and bleeding. A bone mineral density scan (DEXA) is recommended every 2 years after gastric bypass surgery. Please schedule this study through your [...] developed heartburn or severe reflux Call us: ??? If you have concerns. ??? If you have unexplained abdominal pain. ??? if you see blood in your stool or vomit blood ??? If you have prolonged vomiting Post Surgery Support Group: Our post surgery support group meets at [facility] on the first Friday of every month from 1:00 PM-2:00 PM. Nutrition and Activity apps- Baritastic, My Fitness Pal, Lose It, My Plate Internet resources: www.[employer] www.[employer] www.bariatriceating.com www.Bsmark.Physiq/blog [facility] facebook page: https://www.facebook.com/[facility] Books & Magazines: - Recipes for Life After Weight Loss Surgery by Netta Stovall - Shrink Yourself by Dr Renny Madrigal - Eating Well - www.[employer].Physiq - Cooking Light- www.cookinglight.Physiq Anxiety: The Happiness Trap by Jd Joy The Mindfulness and acceptance workbook for anxiety By Ryan Priest. Mindful eating: What are you Hungry For? By Christiano Barraza The Mindful Diet by Dora Stevenson and the [facility] group. Emotional eating: End Emotional Eating by Nedra Birch Calming the Emotional Storm Lissettechari Ferrari documented in this encounter Progress Notes * Lisa Grady APRN - 01/02/2021 8:45 AM EDT Mora Bolanos is s/p Laparoscopic revision of anjel fundoplasty with partial gastrectomy and Analia-en-Y reconstruction on 11/26/17. She was seen in conjunction with Dr. Cassidy today as part of a shared visit (please see his note for more detail). Mora reports worsening GERD/epigastric pain. Additionally she is having difficultyconsistently meeting her protein/fluid goals. Notes often times after eating she will feel sweaty, l ight headed and shaky. She will sometimes skip meals b/c she is not hungry or she is nervous that she will develop sx. She is struggling to take her recommended vitamin/mineral supplements. She is taking a multivitaminwith minerals/no iron ~ 2-3 x week, but finds that they do not settle well and make her feel nauseous. 24 hour dietary recall: Breakfast No breakfast yesterday, typically will eat 1/2 slovenian muffin with slice of cheese AM Snack few pistachios Lunch Cup of salad with baked chicken breast PM Snack Dinner Protein pasta with chicken and pesto. HS Snack Protein: ~40 grams Hydrating Fluids: ~ 48 oz Soda: occasional sip of coke to help settle her stomach Caffeine: as above otherwise no Meals: does not always eat 3/day. ?? Episodes of hypoglycemia;yes ?? Food Allergies/Intolerances: Difficulty with carbs/sugars ?? Feels full/satisfied after eating: yes ?? Feels hungry: No ?? Drinks with meals: No ?? Has had dumping syndrome: yes ?? Practices portion control: yes ?? Spends at least 20 minutes eating each meal: yes Patient Active Problem List Diagnosis Code ??? Gastroesophageal reflux K21.9 ??? Dyspepsia R10.13 ??? Disorder of female genital organ N94.9 ??? Endometriosis of other specified sites N80.8 ??? Nausea R11.0 ??? S/P partial gastrectomy Z90.3 Meds and Allergies reviewed. Objective: Physical Exam Gen: Alert, pleasant, NAD, appears well Resp: Speaking in full sentences, no gasping. No cough witnessed. Skin: No pallor or diaphoresis visible. No rash noted. Psychiatric: normal mood and affect. No results found for this or any previous visit (from the past 72 hour(s)). Assessment: Mora Bolanos is an 45 y.o. female who is s/p laparoscopic revision of anjel fundoplasty with partial gastrectomy and Analia-en-Y gastric bypass with difficulty meet nutrition/supplement goals. Plan: o Recommended that she eat protein first with each meal/pair carbs with lean protein/healthy fats. Choose whole grain breads/cereals and pastas, spread carb intake throughout the day and avoid high carb meals. Limit intake of concentrated sweets, avoid drinking with meals, avoid caffeine and ETOH. o Reviewed importance of meeting nutritional/protein/fluid requirements daily . Encouraged to set timer as a reminder to eat/drink and avoid skipping meals. Recommended measuring and tracking food and being mindful of food choices. Pace eating, chew food well, space fluids 30 minutes from food. Call if she continues to struggle/ unable to meet daily nutritional goals. o Reviewed recommended vitamin/mineral supplements: Discussed timing of supplements and recommendedtrial of Bariatric Fusion Complete multivitamin, with the goal to taper up to two wafers twice daily (which includes Vit B12 560 mcg, Vit D3 3,000 IU, Calcium 1200 mg, Iron 45mg/day). Will make additional recommendations once lab results are available. F/u with Dr. Cassidy as planned for EGD. She will plan to f/u with me and our RD in 6 months for additional nutritional support. She will call/rtc sooner prn with questions/concerns or worsening abdominal pain, prolonged nausea, vomiting or inability to hydrate/meet nutritional goals. After Visit Summary report is availabe for patient's review via e-DH > 30 minutes spent with patient in [id number] discussion including review of diagnosis, labs, counseling/education and treatment plan. Lisa Grady APRN This patient was seen in conjunction with Dr.Dr. Cassidy as part of a shared visit- please see his note for further information regarding medical decision making. * Sheridan Cassidy MD - 01/02/2021 8:45 AM EDT Mora Bolanos was seen in follow-up with new complaints of recurrent significant reflux. She feels she is having worsening GERD with epigastric pain sometimes feeling lightheaded and sweaty whenshe eats. She will sometimes skip meals because she is worried about developing symptoms. She had arecent swallow which shows an intact gastric pouch and emptying with no dilation. No reflux could be elicited despite provocative measures. She has maintained regular weight and has tried a number of PPIs and other jcmg-dbb-blskrcw meds totry to combat her symptoms with no relief. She was seen today as well with our bariatric nurse practitioner and we talked a little bit about how some of this may represent some dumping. We discussed ways to try to help change her eating habits a little bit so we can perhaps control some of the symptoms. Given her ongoing issues however I think it is important to proceed with a endoscopy to ensurethat she does not have any issues with ulceration or stricturing. I think the latter is unlikely given her recent swallow appearance. She is agreeable with this plan and I will see her shortly for EGD. documented in this encounter Plan of Treatment Upcoming Encounters Date Type Department Care Team (Late st Contact Info) Description 06/15/2024 3:00 PM EDT Hospital [place] [address] [place] [address] 07/09/2024 8:30 AM EDT Appointment XRay at [address] [id number] [place] [address] 07/17/2024 8:00 AM EDT Procedure [place] [address] 08/26/2024 8:00 AM EST Office [place] [address] 08/27/2024 9:00 AM EST Clinical [place] [address] documented as of this encounter Procedures Procedure Name Priority Date/Time Associated Diagnosis Comments HC PARATHYROID HORMONE(PTH INTACT Routine 01/02/2021 12:23 PM EDT S/P partial gastrectomy HC HEMOGRAM Routine 01/02/2021 12:23 PM EDT S/P partial gastrectomy HC PCH THIAMIN LVL(VITAMIN B1) WB-CURRIE Routine 01/02/2021 12:23 PM EDT S/P partial gastrectomy HC IRON BINDING CAPACITY Routine 01/02/2021 12:23 PM EDT S/P partial gastrectomy HC VITAMIN D TOTAL-25 HYDROXY Routine 01/02/2021 12:23 PM EDT S/P partial gastrectomy HC HEMOGLOBIN A1C Routine 01/02/2021 12: 23 PM EDT S/P partial gastrectomy HC FOLATE, SERUM Routine 01/02/2021 12:2 3 PM EDT S/P partial gastrectomy HC FERRITIN, SERUM Routine 01/02/2021 12 :23 PM EDT S/P partial gastrectomy HC VITAMIN B12 SERUM Routine 01/02/2021 12:23 PM EDT S/P partial gastrectomy LIPID PANEL (REFLEX DIRECT LDL) Routine 01/02/2021 12:23 PM EDT S/P partial gastrectomy HC VENIPUNCTURE Routine 01/02/2021 12:23 PM EDT S/P partial gastrectomy documented in this encounter Results * Vitamin D, 25-Hydroxy (01/02/2021 12:23 PM EDT) Vitamin D Total 25 OH 27 21 - 100 ng/mL [facility] Vit D Interp Insufficient [facility] Blood specimen (specimen) 01/02/2021 12:23 PM EDT 01/02/2021 12:36 PM EDT Narrative Resulting Agency Comment Spec In Lab Sheridan Cassidy MD CHEMISTRY ORDERABLES Performing Organization Address [facility]/ZIP Co de Phone Number [facility] [place] [place] [address] * Vitamin B12 (01/02/2021 12:23 PM EDT) Vitamin B12 446 232 - 1,245 pg/mL [facility] Blood specimen (specimen) 01/02/2021 12:23 PM EDT 01/02/2021 12:36 PM EDT Narrative Resulting Agency Comment Spec In Lab Sheridan Cassidy MD CHEMISTRY ORDERABLES Performing Organization Address City/[facility]/ZIP Co de Phone Number [facility] [place] [address] * Vitamin B1, whole blood (01/02/2021 12:23 PM EDT) Vit B1 Lvl Wb (JANUARY) 97 70 - 180 nmol/L [facility] Comment: ADDITIONAL INFORMATION This test was developed and its performance characteristics determined by [facility] in a manner consistent with CLIA requirements. This test has not been cleared or approved by the U.S. Food and Drug Administration. Test Performed by: [facility] [address] [place] [address] Ice Guard Tester: Didier Botello M.D. Ph.D.; CLIA# [id number] Blood specimen (specimen) 01/02/2021 12:23 PM EDT 01/02/2021 1:49 PM EDT Narrative Resulting Agency Comment Spec In Lab Sheridan Cassidy MD LAB SEND OUT ORDERAB LES [facility] [place] [address] * PTH (01/02/2021 12:23 PM EDT) Parathyroid Hormone 45 15 - 65 pg/mL [facility] Blood specimen (specimen) 01/02/2021 12:23 PM EDT 01/02/2021 12:36 PM EDT Narrative Resulting Agency Comment Spec In Lab Sheridan Cassidy MD CHEMISTRY ORDERABLES Performing Organization Address City/[facility]/ZIP Co de Phone Number [facility] [place] [address] * Lipid Panel (Reflex Direct LDL) (01/02/2021 12:23 PM EDT) Cholesterol, Total 182 mg/dL [facility] Comment: Lower Risk: <200 mg/dL Average Risk: 200-239 mg/dL Higher Risk: >no=187 mg/dL Triglyceride 58 mg/dL [facility] Comment: Average Risk/Lower Risk: <150 mg/dL Borderline High Risk: 150-199 mg/dL High Risk: 200-499 mg/dL Very High Risk: >sw=706 mg/dL HDL Cholesterol 76 mg/dL [facility] Comment: Males: ?? Higher Risk: <40 mg/dL Females: ?? Higher Risk: <50 mg/dL LDL Cholesterol 94 mg/dL [facility] Comment: Lowest Risk: <100 mg/dL Lower Risk: 100-129 mg/dL Borderline High Risk: 130-159 mg/dL High Risk: 160-189 mg/dL Very High Risk: >fz=949 mg/dL Cholesterol/HDL Ratio 2.4 ratio [facility] Lipid Interpretation See Note [facility] Comment: Lipid management should be guided by a patient? s ASCVD risk, goals and preferences. ACC/AHA Guidelines recommend high intensity statin if clinical ASCVD or LDL greater than or equal to 190 mg/dL. http://[employer].com/WTR-XWA-Yrlvkrgnt Adults aged 40-75 with LDL 70-189 mg/dL should have their 10 year ASCVD risk estimated with the ACC/AHA ASCVD risk utilities estimator and drafter http://tools.acc.org/OAIWO-Txnr-Tkttcbjrh/ Statin should be discussed if risk greater [...] critical component of ASCVD risk reduction. Blood specimen (specimen) 01/02/2021 12:23 PM EDT 01/02/2021 12:36 PM EDT Narrative Resulting Agency Comment Spec In Lab Sheridan Cassidy MD CHEMISTRY ORDERABLES [facility] [place] [address] * Iron and TIBC (01/02/2021 12:23 PM EDT) Iron 90 30 - 150 mcg/dL [facility] TIBC 336 250 - 450 mcg/dL [facility] Iron Saturation 27 20 - 50 % [facility] Blood specimen (specimen) 01/02/2021 12:23 PM EDT 01/02/2021 12:36 PM EDT Narrative Resulting Agency Comment Spec In Lab Sheridan Cassidy MD CHEMISTRY ORDERABLES [facility] [place] [address] * Hemogram (01/02/2021 12:23 PM EDT) [facility] White Blood Cell 5.8 4.0 - 9.5 x10(3)/[facility] Red Blood Cell 4.52 4.00 - 5.21 x10(6)/[facility] Hemoglobin 12.4 11.7 - 15.5 gm/dL [facility] Hematocrit 37.5 35.7 - 45.8 % [facility] Mean Cell Volume 83.0 82.6 - 94.4 fL [facility] Mean Cell Hemoglobin 27.4 27.1 - 32.0 pg [facility] Mean Cell Hemoglobin Concentration 33.1 31.7 - 35.0 gm/dL [facility] Platelet 242 145 - 357 x10(3)/[facility]ORATORY RDW Standard Deviation 37.1 37.0 - 46.0 [facility] RDW coefficient of variation 12.2 11.5 - 14.1 % [facility] Mean Platelet Volume 10.2 7.6 - 12.9 fL [facility] NRBC% auto 0.0 % [facility] NRBC Absolute 0.000 0.000 - 0.000 x10(3)/[facility] Blood specimen (specimen) 01/02/2021 12:23 PM EDT 01/02/2021 12:36 PM EDT Narrative Resulting Agency Comment Spec In Lab Sheridan Cassidy MD HEMATOLOGY ORDERABLE S [facility] [place] [address] * Hemoglobin A1c (01/02/2021 12:23 PM EDT) Hemoglobin A1c 4.9 4.3 - 5.6 % [facility] Comment: Reference Range: [...] Mellitus, Diabetes Care 2013; 36: Suppl. 1, S67-05 Estimated Average Glucose 93 mg/dL [facility] Comment: eAG equivalents for HbA1c percentages: HbA1c(%) ?eAG(mg/dL) 6.0 ?126 6.5 ?140 7.0 ?154 7.5 ?169 8.0 ?183 8.5 ?197 9.0 ?212 9.5 ?226 10.0 ? 240 Limitations: The eAG calculation has not been validated on women, individuals below 18 years old and above 70 years old, and individuals with hemoglobinopathies. Additional resources are available on the ADA website. Ankush ERWIN, Finn J, Dariusz R, et al. ??Translating the A1C assay into estimated average glucose values. ??Diabetes Care 2008:31(8):3438-1662. Blood specimen (specimen) 01/02/2021 12:23 PM EDT 01/02/2021 12:36 PM EDT Narrative Resulting Agency Comment Spec In Lab Sheridan Cassidy MD CHEMISTRY ORDERABLES [facility] [place] [address] * Folate, serum (01/02/2021 12:23 PM EDT) [facility] Folate 11.2 4.8 - 24.2 ng/mL [facility] Blood specimen (specimen) 01/02/2021 12:23 PM EDT 01/02/2021 12:36 PM EDT Narrative Resulting Agency Comment Spec In Lab Sheridan Cassidy MD CHEMISTRY ORDERABLES Performing Organization Address City/[facility]/ZIP Co de Phone Number [facility] [place] [address] * Ferritin (01/02/2021 12:23 PM EDT) [facility] Ferritin 46 15 - 150 ng/mL [facility] Comment: Pediatric reference ranges not verified at [facility], interpret with caution. Reference ranges for females greater than 50 years of age approach values for men, i.e., 30-400 ng/mL. Blood specimen (specimen) 01/02/2021 12:23 PM EDT 01/02/2021 12:36 PM EDT Narrative Resulting Agency Comment Spec In Lab Sheridan Cassidy MD CHEMISTRY ORDERABLES Performing Organization Address City/[facility]/ZIP Co de Phone Number [facility] [place] [address] * (ABNORMAL) Comprehensive metabolic panel (non-fasting) (01/02/2021 12:23 PM EDT) [facility] Glucose 92 65 - 199 mg/dL [facility] Comment:Diabetes: >=200 mg/d L plus symptoms Blood Urea Nitrogen 8 8 - 18 mg/dL [facility] Creatinine 0.72 0.70 - 1.20 mg/dL [facility] Sodium 143 135 - 145 mmol/L [facility] Potassium 4.3 3.5 - 5.0 mmol/L [facility] Comment: Please note: ??Patients with WBC >100,000 may have falsely elevated Potassium levels. ??For accurate Potassium quantification in these patients send serum separator tube (gold top) for subsequent determinations. ??Contact the Clinical Chemistry Laboratory if there are any questions. Chloride 105 98 - 107 mmol/L [facility] Carbon Dioxide 30 22 - 31 mmol/L [facility] Anion Gap 8 5 - 15 mmol/L [facility] Calcium 9.6 8.5 - 10.5 mg/dL [facility] Protein, Total 7.0 6.1 - 8.0 gm/dL [facility] Albumin 4.3 3.2 - 5.2 gm/dL [facility] Aspartate Aminotransferase 31(H) 0 - 30 unit/L [facility] Alanine Aminotransferase 27 0 - 30 unit/L [facility] Alkaline Phosphatase 82 35 - 105 unit/L [facility] Bilirubin, Total 0.4 0.2 - 1.3 mg/dL [facility] Est Glomerular Filtration Rate 100 >=60 mL/min/1. 73 m?? [facility] Comment: This patient? s estimated glomerular filtration rate (eGFR) is between 100 mL/min/1.73 m2 (patients with less muscle mass) and 116 mL/min/1.73 m2 (patients with more muscle mass) as determined by the CKD-EPI equation. Assessment of eGFR is not appropriate when creatinine concentrations are rapidly changing. For clinical decisions where creatinine clearance will affect therapy, a 24-hour urine creatinine clearance may be advised. Assignment of CKD stage 1 - 5 for patients with an eGFR near the transition point between stages may be based on clinical assessment of muscle mass and symptoms in addition to eGFR. Blood specimen (specimen) 01/02/2021 12:23 PM EDT 01/02/2021 12:36 PM EDT Narrative Resulting Agency Comment Spec In Lab Sheridan Cassidy MD CHEMISTRY ORDERABLES [facility] [place] [phone] documented in this encounter Visit Diagnoses Diagnosis S/P partial gastrectomy- Primary Other postprocedural status Nausea Nausea alone Inadequate nutrition Gastroesophageal reflux disease, unspecified whether esophagitis present documented in this encounter Care Teams Concrete Layer Relationship Specialty Start Date End Date Laura Ross APRN [address] [place] [address] PCP - General Family Medicine 10/01/17 08/21/22 documented as of this encounter
--- OUTSIDE RECORDS SUMMARY | 2024-06-12 13:42 | XMS_ITS | Encounter Summary ---
Author Organization [facility] [place] [address] Care Team Providers Care International Account Executive Name Role Phone Mike Goodman KYLE Primary Care Provider [phone] Reason for Visit * Consultation (Routine) - Closed Specialty Diagnoses / Procedures Referred By Contact Referred To Contact Electrophysiology / Cardiology Diagnoses Paroxysmal SVT (supraventricular tachycardia) history of SVTs, most recent monitor pending, has had presyncopal and syncopal events in the last couple of months. *Zio scanned in from 2019* King Haro MD [facility] [place] [address] [facility] [address] [place] [id number] Referral ID Status Reason Start Date Expiration Date V isits Requested Visits Authorized [id number] Closed Consult, Test & Treat 10/22/2022 10/22/2023 1 1 Encounter Details Date Type Department Care Team (Late st Contact Info) Description 01/23/2023 4:00 PM EDT Office Visit Cardiology at [address] [phone] Grisel Vazquez MD [facility] [place] [address] Ezra Mckeon MD [facility] [place] [address] Paroxysmal SVT (supraventricular tachycardia) (Primary Dx) Social History Tobacco Use Types Packs/Day Years [...] Sign Reading Time Taken Comments Blood Pressure 131/81 01/23/2023 4:20 PM EDT Pulse 85 01/23/2023 4:20 PM EDT Temperature - - Respiratory Rate 14 01/23/2023 4:20 PM EDT Oxygen Saturation 100% 01/23/2023 4:20 PM EDT Inhaled Oxygen Concentration - - Weight 68.9 kg (152 lb) 01/23/2023 4:20 PM EDT Height - - Body Mass Index 28.26 10/22/2022 3:34 PM EST documented in this encounter Progress Notes * Grisel Vazquez MD - 01/23/2023 4:00 PM EDT Images from the original note were not included. Section of Cardiology/Cardiac Electrophysiology Clinical Cardiac Electrophysiology Consult Patient ID Mora Bolanos [id number] Mora Bolanos is referred to the EP clinic by Dr Haro Chief Complaint Syncope Palpitations History This is a 47 y.o. female following up/being seen in clinic for syncope/palpitations/SVT. The history is a little challenging to obtain as she has had care in multiple hospitals. Records from her prior cardiovascular work-up are somewhat incomplete, she has previously had care in [place]. She does have a long history of Magdaleno fundoplication with post surgery epigastric pain. Neil had a Magdaleno fundoplication performed in about 2010, and following this developed acute cholecystitis, and after a laparoscopic cholecystectomy, has had persistent epigastric pain dysphagia bloating etc. In 2012, she underwent a redo laparoscopic Magdaleno fundoplication. In 2018, she underwent a laparoscopic revision, with partial gastrectomy and Analia-en-Y reconstruction. Although she recovered reasonably well from the surgery, a few years later she was started to experience worsening GERD, with epigastric pain, lightheadedness and sweating when eating. As a result, she has small meals and does not drink much water. In October of this year, she was seen in the general cardiology clinic, for evaluation of episodesof heart racing, that she had been experiencing since approximately age 29. These episodes have become more prolonged, and sometimes associated with presyncope or even shireen syncope. She says that when she lived in [place], she was evaluated by a air chipper, who apparently diagnosed her with SVT. 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 She has injured her knee in the past. She tells me that she enjoys running, often running 3 to 5 miles and having 1 some half marathons, but more recently she has curtailed this. She believes she was trialed on a beta-jade while in [place], but this may have made her feel more lightheaded and dizzy. There is a family history of heart disease -see below, various members of the family have had coronary artery disease, she has a brother with pacemaker at a young age. Dr. Haro ordered a cardiac CT for evaluation of her chest discomfort, calcium score was 0. She had an ambulatory monitor placed in October of this year at [facility] -results of this monitor are not in the electronic medical record - she says that it 'didn't show much' She did have a Zio patch performed in 2019, wearing the monitor for 13 days. She brought a printed copy to the clinic with her today. There were no significant arrhythmias during the time of the recording. She indicates that in general her oral intake and hydration is poor to modest, she has difficulty secondary to her prior GI surgeries, does not typically drink much water during the day. She knows this is something she has to work at. Problem List Patient Active Problem List Diagnosis ??? Paroxysmal SVT (supraventricular tachycardia) ??? Chest pressure ??? Lipid screening ??? S/P partial gastrectomy ??? Gastroesophageal reflux -EGD, 07/18/11: medium hiatal hernia from 38 to 33 cm; LA grade esophagitis; mild gastric erythema;H. pylori negative; normal small bowel biopsies -48 hour wireless pH capsule on daily Protonix, 09/17-01/2011 - normal on day one; evidence of persistent acid reflux on day two (while on daily PPI) -esophageal manometry, 09/17/10: hypotensive LES; normal motility in the body of the esophagus -Upper GI Series, Indra Roy, 08/24/09: question retained food in stomach, otherwise normal. -EGD, [facility], Dr. Julius Zepeda, 03/15/10: small hiatal hernia noted. Distal esophagitis noted, ? [facility]???s. ??? Dyspepsia ??? 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 Endometriosis of other specified sites ??? Nausea Overview: ICD10 Update Auto Replacement Review of Systems Review of Systems Constitutional: Positive for weight loss. Cardiovascular: Positive for irregular heartbeat and palpitations. Meds Current Outpatient Medications Medication Sig Dispense Refill ??? OMEPRAZOLE ORAL Take 40 mg by mouth 2 times daily. ??? calcium carbonate (Tums) 200 mg calcium (500 mg) Tablet, Chewable Take 1 tablet by mouth as needed for Heartburn. ??? Calcium Carbonate-Mag Hydroxid (Rolaids) 550-110 mg Tablet, Chewable Take 1 tablet by mouth as needed. ??? 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 No current facility-administered medications for this visit. Social History Social History Tobacco Use ??? Smoking status: Former Packs/day: 1.00 Types: Cigarettes Quit date: 12/03/2003 Years since quittin.1 ??? Smokeless tobacco: Never Substance Use Topics ??? Alcohol use: No ??? Drug use: No Family History No family history on file. Father - age 80, he had CABG / vascular disease Mother - coronary artery disease () Parthahter - age 51 - stroke Brother - Fabiano - has pacemaker since age 24 Exam Patient Vitals for the past 24 hrs: Pulse Resp BP SpO2 01/23/23 1620 85 14 131/81 100 % Physical Exam Constitutional: Comments: Body mass index is 28.26 kg/m??. Eyes: Conjunctiva/sclera: Conjunctivae normal. Cardiovascular: Rate and Rhythm: Normal rate. Pulses: Normal pulses. Pulmonary: Effort: Pulmonary effort is normal. Skin: General: Skin is warm. Neurological: General: No focal deficit present. Mental Status: She is alert. Psychiatric: Mood and Affect: Mood normal. Echocardiogram: December 2022, left ventricle normal size, LVEF 56%, LA normal, RA normal, ventricularectopy noted during study CT angiogram of coronary arteries: November 2022, coronary calcium score 0. No significant findings ofthe cardiac chambers, no significant findings of the great vessels. Impression Mora Bolanos is seen in the EP clinic for consultative evaluation of her SVT/syncope. Although she has a history of prior work-up in [place], and was told that she has SVT, the availableZio patch (from 2018), shows only brief episodes of nonsustained, probable atrial tachycardia, and ectopic beats. Some of the symptoms also probably relate to the multiple GI complaints she has had in the past, with poor hydration and oral intake. Her echocardiogram was normal. CT scan also normal. We discussed the idea of trying to obtain more rhythm information, she believes that her ambulatorymonitor performed at [facility] did not provide much useful information (we need to obtain a copy of this). She does have an Apple Watch, so we reviewed how to obtain an ECG with the watch, she will try and capture some episodes of her tachycardia when they happen. If we are unable to obtain useful information from the Apple Watch, then we should order another Zio patch-we discussed this in detail today, she was agreeable to this plan. Depending on the findings, we may end up starting her on a low-dose of beta- jade for palpitations/ectopic beats, which she apparently has tolerated in the past, although had some orthostatic symptoms - she will need to make sure that she hydrates adequately. We discussed hydration with 60-80 ounces of water daily and use of electrolyte drinks when exercising. Recommendations / Plan A) We need to obtain copies of her ambulatory monitor from [facility] (requested) B) She will try and capture episodes of tachycardia on her Apple Watch C) If we are unable to capture any diagnostic episodes, we will proceed with repeat Zio patch D) Contingency for potentially starting metoprolol for palpitations/SVT E) Encouraged to maintain good hydration F) Follow-up in [place]. GRISEL VAZQUEZ MD Cardiac Electrophysiology [facility] T: [phone] F: [phone] 45 minutes were spent preparing to see the patient (e.g. review of tests), obtaining and/or reviewing separately obtained history, performing a medically appropriate examination and/or evaluation, counseling and educating the patient, ordering medications, tests, or procedures, documenting clinicalinformation in the electronic medical record, independently interpreting results Cc: Mike Goodman APRN documented in this encounter Plan of Treatment Upcoming Encounters Date Type Department Care Team (Late st Contact Info) Description 06/15/2024 3:00 PM EDT Hospital [place] [address] [place] [address] 07/09/2024 8:30 AM EDT Appointment XRay at [address] [phone] [place] [address] 07/17/2024 8:00 AM EDT Procedure [place] [address] 08/26/2024 8:00 AM EST Office Visit [place] [address] 08/27/2024 9:00 AM EST Clinical Support [place] [address] documented as of this encounter Visit Diagnoses Diagnosis Paroxysmal SVT (supraventricular tachycardia)- Primary Paroxysmal supraventricular tachycardia documented in this encounter Care Teams International Account Executive Relationship Specialty Start Date End Date Mike Goodman DNP [address] [place] [phone] PCP - General Family Medicine 08/22/22 documented as of this encounter
--- OUTSIDE RECORDS SUMMARY | 2024-06-12 13:42 | XMS_ITS | Encounter Summary ---
Author Organization [facility] [place] [address] Care Team Providers Care Water Registrar Name Role Phone Mike Goodman DNP Primary Care Provider Encounter Details Date Type Department Care Team (Latest Contact Info) Description 10/21/2022 Travel Social History Tobacco Use Types Packs/Day [...] PM EDT Hospital Encounter [place] [address] [place] [address] 07/09/2024 8:30 AM EDT Appointment XRay at [address] [phone] Alena Pizarro [employer] [place] [address] 07/17/2024 8:00 AM EDT Procedure visit [place] [address] 08/26/2024 8:00 AM EST Office [place] [address] 08/27/2024 9:00 AM EST Clinical Support [place] [address] documented as of this encounter Visit Diagnoses Not on filedocumented in this encounter Care Teams Water Registrar Relationship Specialty Start Date End Date Mike Goodman DNP [address] [place] [phone] PCP - General Family Medicine 08/22/22 documented as of this encounter
--- OUTSIDE RECORDS SUMMARY | 2024-06-12 13:42 | XMS_ITS | Encounter Summary ---
[place] [address] Care Team Providers Care Circus Performer Name Role Phone Laura Ross LOUIE Primary Care Provider Reason for Visit * Auth/Cert Specialty Diagnoses / Procedures Referred By Martha broussard Referred To Contact Diagnoses GERD (gastroesophageal reflux disease) GERD Procedures PRO UPPER GI ENDOSCOPY, DIAGNOSTIC PRO UPPER GI ENDOSCOPY, BIOPSY PRO UP GI ENDOSCOPY, REMV TUMOR, SNARE EGD, UPPER GI ENDOSCOPY Referral ID Status Reason Start Date Expiration Date Visits Re quested Visits Authorized [id number] 1 1 Encounter Details Date Type Department Care Team (Late Contact Info) Description 01/08/2021 3:00 PM EDT - 01/08/2021 3:45 PM EDT Surgery [place] [address] Sheridan Cassidy MD [facility] [place] [address] EGD, UPPER GI ENDOSCOPY (WRVU 2.09) Social History Tobacco Use Types Packs/Day Years [...] Sign Reading Time Taken Comments Blood Pressure 131/93 01/08/2021 3:35 PM EDT Pulse 77 01/08/2021 3:35 PM EDT Temperature 36.8 ??C (98.2 ??F) 01/08/2021 2:39 PM ED T Respiratory Rate 16 01/08/2021 3:35 PM EDT Oxygen Saturation 99% 01/08/2021 3:35 PM EDT Inhaled Oxygen Concentration - - Weight 63.5 kg (140 lb) 01/08/2021 2:39 PM EDT Height - - Body Mass Index 26.45 01/02/2021 10:27 AM EDT documented in this encounter Discharge Instructions * Discharge Instructions* Nuha Solomon RN - 01/08/2021 4:25 PM EDT Upper GI Endoscopy: What to Expect at Home Your Recovery You will be able to go home after your doctor or nurse checks to make sure you are not having any problems. You may have to stay overnight if you had treatment during the test. You may have a sore throat fora day or two after the test. This care sheet gives you a general idea about what to expect after the test. How can you care for yourself at home? Activity Rest when you feel tired. ?? You can do your normal activities when it feels okay to do so. Diet ?? Follow your doctor's directions for eating. ?? Unless your doctor has told you not to, drink plenty of fluids. This helps to replace the fluidsthat were lost during the prep. ?? Do not drink alcohol. Medicines ?? Your doctor will tell you if and when you can restart your medicines. He or she will also give you instructions about taking any new medicines. ?? If you take blood thinners, such as warfarin (Coumadin), clopidogrel (Plavix), or aspirin, be sure to talk to your doctor. He or she will tell you if and when to start taking those medicines again. Make sure that you understand exactly what your doctor wants you to do. ?? If polyps were removed or a biopsy was done during the test, your doctor may tell you not to take aspirin or other anti-inflammatory medicines for a few days. These include ibuprofen (Advil, Motrin) and naproxen (Aleve). ?? If you have a sore throat the day after the procedure, use an pvmh-lgt-pzsvufh spray to numb your throat. Sucking on throat lozenges and gargling with warm salt water may also help relieve your symptoms. Other instructions ?? For your safety, do not drive or operate machinery until the medicine wears off and you can think clearly. Your doctor may tell you not to drive or operate machinery until the day after your test. ?? Do not sign legal documents or make major decisions until the medicine wears off and you can think clearly. The anesthesia can make it hard for you to fully understand what you are agreeing to. Additional Information for Sedation Patients For patients who received sedation: ?? You may have received medications before and/or during your procedure which effects your judgement and reaction time. ?? Do not drive, operate machinery, drink alcoholic beverages or make important decisions for 24 hours. ?? Be careful on stairs as you may be unsteady on your feet. ?? You may eat a regular diet as tolerated. ?? Do not smoke if you are alone. ?? IV site: Slight redness or tenderness is normal, you can use a warm compress if you would like. If tenderness and/or redness increase or if foul drainage occurs, please contact your Doctor. Please call [phone] before 8pm Mon-Fri with problems, questions or concerns. If you call after 8pm or on weekends, call the Hospital at [phone] and ask to speak to the Ward Clerk hydraulic elevator constructor and the oxidation operator will contact that person for you. When should you call for help? Call 242 anytime you think you may need emergency care. For example, call if: ?? You passed out (lost consciousness). ?? You pass maroon or bloody stools. ?? You have trouble breathing. Call your doctor now or seek immediate medical care if: ?? You have pain that does not get better after you take pain medicine. ?? You are sick to your stomach or cannot drink fluids. ?? You have new or worse belly pain. ?? You have blood in your stools. ?? You have a fever. ?? You cannot pass stools or gas. Watch closely for changes in your health, and be sure to contact your doctor if you have any problems. Where can you learn more? [facility] View your After Visit Summary and more online at [email or web address] If you would like to provide feedback about your hospital experience, please call the Office of Patient and Family Relations at . If you have received this After Visit Summary in error, please immediately return it in person to the department, or notify the [facility] Privacy Office by calling toll free at between the hours of 8AM and 5PM to arrange for our retrieval of the documents at no cost to you. Content Version: 12.2 ?? [id number] [employer]. Care instructions adapted under license by [facility]. If you have questions about a medical condition or this instruction, always ask your healthcare professional. [employer] disclaims any warranty or liability for your use of this information. 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 01/11/2011 omeprazole (PriLOSEC) 40 mg Capsule, Delayed Release(E.C.) Take 1 capsule by mouth 2 times daily. 60 capsule 11 01/02/2021 01/02/2022 calcium carbonate (Tums) 200 mg calcium (500 mg) Tablet, Chewable Take 1 tablet by mouth as needed for Heartburn. 05/03/2024 Calcium Carbonate-Mag Hydroxid (Rolaids) 550-110 mg Tablet, Chewable Take 1 tablet by mouth as needed. 05/03/2024 documented as of this encounter H&P Notes * Lainey Eng MD - 01/08/2021 3:17 PM EDT [facility] Minimally Invasive Surgery Interval History and Physical HPI: Mora Bolanos is a 45 y.o. female who presents for EGD. She is s/p Gabriella conversion to gastric bypass for poorly controlled GERD. Recently she has experienced worsening GERD with heartburnalong with mid epigastric sharp pain. She was increased to Omeprazole 40 mg BID last week with minimal improvement in symptoms. The pain is sometimes triggered by food intake but not consistently. Please see clinic note dated 01/02/[address] Cassidy for further historical details, copied below. There have been no changes to the patient's history or physical exam since documented in clinic. Mora Bolanos was seen in follow-up with [...] reflux could be elicited despite provocative measures. ?? She has maintained regular weight and has tried a number of PPIs and other pzbp-oep-rhjqiqs meds totry to combat her symptoms with [...] I will see her shortly for EGD. ??5:13 PM Past Surgical History: Procedure Laterality Date ??? PRO LAP, ESOPHAGUS, OTHER PROC 11/25/2012 LAPAROSCOPIC REVISION OF GABRIELLA FUNDOPLASTY performed by Sheridan Cassidy MD at [facility] MAIN OR ??? PRO LAP, ESOPHAGUS, OTHER PROC N/A 11/26/2017 LAPAROSCOPIC REVISION OF GABRIELLA FUNDOPLASTY (WRVU *) performed by Sheridan Cassidy MD at [facility] MAIN OR ??? PRO LAP, STOMACH, OTHER, W/O TUBE N/A 11/26/2017 LAPAROSCOPIC GASTRECTOMY, PARTIAL, W EVIN-EN-Y RECONSTRUCTION (WRVU *) performed by Sheridan Cassidy MD at [facility] MAIN OR ??? PRO UPPER GI ENDOSCOPY, BIOPSY 09/04/2012 EGD WITH BIOPSY performed by Didier Jones MD at [facility] ENDOSCOPY ??? PRO UPPER GI ENDOSCOPY, BIOPSY N/A 07/22/2016 UPPER GASTROINTESTINAL ENDOSCOPY,WITH BIOPSY SINGLE OR MULTIPLE performed by Sheridan Cassidy MD [facility] ENDOSCOPY ??? PRO UPPER GI ENDOSCOPY, BIOPSY N/A 10/20/2017 EGD WITH BIOPSY (WRVU 2.49) performed by Sheridan Cassidy MD at [facility] ENDOSCOPY ??? PRO UPPER GI ENDOSCOPY, BIOPSY N/A 03/09/2018 EGD WITH BIOPSY (WRVU 2.49) performed by Sheridan Cassidy MD at [facility] ENDOSCOPY ??? PRO UPPER GI ENDOSCOPY, DIAGNOSTIC 11/25/2012 ENDOSCOPY, UPPER GI, DIAGNOSTIC, WITH OR WITHOUT SPECIMENS performed by Sheridan Cassidy MD at [facility] OR ??? PRO UPPER GI ENDOSCOPY, DIAGNOSTIC 07/18/2014 EGD, UPPER GI ENDOSCOPY performed by Sheridan Cassidy MD at [facility] ENDOSCOPY ??? PRO UPPER GI ENDOSCOPY, DIAGNOSTIC N/A 11/26/2017 ENDOSCOPY, UPPER GI, DIAGNOSTIC, WITH OR WITHOUT SPECIMENS performed by Sheridan Cassidy MD at [facility] OR ??? UPPER GI ENDOSCOPY, EXAM 09/04/2012 UPPER GI ENDOSCOPY performed by Didier Jones MD at [facility] ENDOSCOPY No current facility-administered medications on file prior to encounter. Current Outpatient Medications on File Prior to Encounter Medication Sig Dispense Refill ??? calcium carbonate (Tums) 200 mg calcium (500 mg) Tablet, Chewable Take 1 tablet by mouth as needed for Heartburn. ??? Calcium Carbonate-Mag Hydroxid (Rolaids) 550-110 mg Tablet, Chewable Take 1 tablet by mouth as needed. ??? omeprazole (PriLOSEC) 40 mg Capsule, Delayed Release(E.C.) Take 1 capsule by mouth 2 times daily. 60 capsule 11 ??? 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 Allergies Allergen Reactions ??? Onion Anaphylaxis ??? Bupropion Hcl Other (See Comments) serum sickness ??? Metoclopramide Hcl Other (See Comments) Unknown Social History Socioeconomic History ??? Marital status: Spouse name: Not on file ??? Number of children: Not on file ??? Years of education: Not on file ??? Highest education level: Not on file Occupational History ??? Not on file Tobacco Use ??? Smoking status: Former Smoker Packs/day: 1.00 Types: Cigarettes Quit date: 12/03/2003 Years since quittin.1 ??? Smokeless tobacco: Never Used Substance and Sexual Activity ??? Alcohol use: No ??? Drug use: No ??? Sexual activity: Yes Partners: Male Other Topics Concern ??? Not on file Social History Narrative ??? Not on file Social Determinants of Health Financial Resource Strain: ??? Difficulty of Paying Living Expenses: Food Insecurity: ??? Worried About Running Out of Food in the Last Year: ??? Ran Out of Food in the Last Year: Transportation Needs: ??? Lack of Transportation (Medical): ??? Lack of Transportation (Non-Medical): Physical Activity: ??? Days of Exercise per Week: ??? Minutes of Exercise per Session: Stress: ??? Feeling of Stress : Social Connections: ??? Frequency of Communication with Friends and Family: ??? Frequency of Social Gatherings with Friends and Family: ??? Attends [employer] Services: ??? Active Member of Clubs or Organizations: ??? Attends Club or Organization Meetings: ??? Marital Status: Intimate Partner Violence: ??? Fear of Current or Ex-Partner: ??? Emotionally Abused: ??? Physically Abused: ??? Sexually Abused: Patient Vitals for the past 24 hrs: BP Temp Temp src Pulse Resp SpO2 Weight 01/08/21 1439 118/82 36.8 ??C (98.2 ??F) Tympanic 68 16 99 % 63.5 kg (140 lb) PE: Comfortable, in NAD, conversant RRR without murmurs CTAB Abdomen soft, NT, ND Plan: Mora Bolanos is a 45 y.o. female who presents for EGD. She has no further questions andagrees to proceed. Lainey Eng MD PGY-6 Minimally Invasive Surgery Fellow documented in this encounter Plan of Treatment Upcoming Encounters Date Type Department Care Team (Late st Contact Info) Description 06/15/2024 3:00 PM EDT Hospital [place] [address] [place] [address] 07/09/2024 8:30 AM EDT Appointment XRay at [address] [id number] [place] [address] 07/17/2024 8:00 AM EDT Procedure visit [place] [address] 08/26/2024 8:00 AM EST [place] [address] 08/27/2024 9:00 AM EST Clinical [place] [address] documented as of this encounter Procedures Procedure Name Priority Date/Time Associated Diagnosis Comments Upper GI Endoscopy, Diagnostic (37277) 01/08/2021 3:35 PM EDT GERD UPPER GI ENDOSCOPY Routine 01/08/2021 3: 12 PM EDT documented in this encounter Results * UPPER GI ENDOSCOPY (01/08/2021 3:12 PM EDT) UPPER GI ENDOSCOPY [facility] Endoscopy Procedure Date: 01/08/2021 3:12 PM ? Patient Name: Mora Bolanos ? Date of : 1975 ? Age: 45 ? Order #: [id number] ? Instrument Name: [id number] ? Procedure: ? Upper GI endoscopy Indications: ? Heartburn Providers: ? Sheridan Cassidy MD, Rip Lagunas, ? Dimitri Colvin MD: ?Laura Ross Medicines: ? Fentanyl 200 micrograms IV, Midazolam ? 6 mg IV Complications: ? No immediate complications. Estimated ? blood loss: None. Procedure: ? Pre-Anesthesia Assessment: ? - Prior to the procedure, a History ? and Physical was performed, and ? patient medications and allergies ? were reviewed. The patient is ? competent. The risks and benefits of ? the procedure and the sedation ? options and risks were discussed with ? the patient. All questions were ? answered and informed consent was ? obtained. Patient identification and ? proposed procedure were verified by ? the physician, the nurse and the ? preparatory technician in the pre-procedure area ? in the procedure room. Mental Status ? Examination: normal. Airway ? Examination: normal oropharyngeal ? airway and neck mobility. Respiratory ? Examination: clear to auscultation. ? CV Examination: normal. Prophylactic ? Antibiotics: The patient does not ? require prophylactic antibiotics. ? Prior Anticoagulants: The patient has ? taken no previous anticoagulant or ? antiplatelet agents. ASA Grade ? Assessment: II - A patient with mild ? systemic disease. After reviewing the ? risks and benefits, the patient was ? deemed in satisfactory condition to ? undergo the procedure. The anesthesia ? plan was to use moderate sedation / ? analgesia (conscious sedation). ? Immediately prior to administration ? of medications, the patient was ? re-assessed for adequacy to receive ? sedatives. The heart rate, ? respiratory rate, oxygen saturations, ? blood pressure, adequacy of pulmonary ? ventilation, and response to care ? were monitored throughout the ? procedure. The physical status of the ? patient was re-assessed after the ? procedure. ? The procedure, indications, benefits, ? risks and alternatives were explained ? to the patient. Specifically ? discussed were potential ? complications including, but not ? limited to, bleeding, perforation, ? infection, missing a cancer, and ? adverse medication reactions. The ? Endoscope was introduced through the ? mouth, and advanced to the jejunum. ? The patient tolerated the procedure ? well. The upper GI endoscopy was ? accomplished with ease. The patient ? tolerated the procedure well. ? Findings: ? The examined esophagus was normal. ? Evidence of a gastric bypass was found. A gastric ? pouch with a normal size was found. The staple line ? appeared intact. The gastrojejunal anastomosis was ? characterized by healthy appearing mucosa. This was ? traversed. The mwxto-wy-alrjgiv limb was ? characterized by healthy appearing mucosa. ? The examined jejunum was normal but tortuous. ? Moderate Sedation: ? Moderate (conscious) sedation was administered by the ? endoscopy nurse and supervised by the endoscopist. ? The patient's oxygen saturation, heart rate, blood ? pressure and response to care were monitored. Total ? physician intraservice time was 6 minutes. Impression: ?- Normal esophagus. ? - Gastric bypass with a normal-sized ? pouch and intact staple line. ? Gastrojejunal anastomosis ? characterized by healthy appearing ? mucosa. ? - Normal examined jejunum. ? - No specimens collected. Procedure Code(s): ?? --- Professional --- ? 01404, Esophagogastroduod enoscopy, ? flexible, transoral; diagnostic, ? including collection of specimen(s) ? by brushing or washing, when ? performed (separate procedure) CPT copyright 2019 [employer]. All rights reserved. The codes documented in this report are preliminary and upon speeder tender review may be revised to meet current compliance requirements. Attending Participation: ? I personally performed the entire procedure. ? Sheridan Cassidy MD 01/08/2021 3:55:47 PM This report has been signed electronically. Number of Addenda: 0 Note Initiated On: 01/08/2021 3:12 PM PROVATION 01/08/2021 3:12 PM EDT Laura Ross N[facility] GENERAL SURGICAL ORD ERABLES PROVATION documented in this encounter Visit Diagnoses Not on filedocumented in this encounter Administered Medications Inactive Administered Medications - up to 3 most recent administrations Medication Order MAR Action Action Date Dose Rate Site fentaNYL (pf) (50 mcg/mL) multi-dose injection ONCE PRN, Starting on Fri01/08/21 at 1539, Until Fri01/08/21 at 1851, Intra-Operative (Intra-Procedure), Routine Given 01/08/2021 3:46 PM EDT 25 mcg Given 01/08/2021 3:44 PM EDT 25 mcg Given 01/08/2021 3:42 PM EDT 50 mcg lactated ringers infusion 100 mL/hr, Intravenous, CONTINUOUS, Starting on Fri01/08/21 at 1515, Until Fri01/08/21 at 1635, Endoscopy (Day of Procedure) New Bag 01/08/2021 2:53 PM EDT 100 mL/hr 100 mL/hr midazolam (pf) (Versed) (1 mg/mL) multi-dose injection ONCE PRN, Starting on Fri01/08/21 at 1537, Until Fri01/08/21 at 1851, Intra-Operative (Intra-Procedure), Routine Given 01/08/2021 3:49 PM EDT 1 mg Given 01/08/2021 3:45 PM EDT 1 mg Given 01/08/2021 3:43 PM EDT 1 mg documented in this encounter Active and Recently Administered Medications Times are shown in EDT. Continuous Medication Order 01/06/2021 01/07/2021 01/08/2021 lactated ringers infusion (CANCELED) 100 mL/hr, Intravenous, CONTINUOUS, Starting on Fri01/08/21 at 1515, Until Fri01/08/21 at 1635, Endoscopy (Day of Procedure) 1453 (New Bag - Prov ider: Kaci Wayne RN) PRN Medication Order 01/06/2021 01/07/2021 01/08/2021 fentaNYL (pf) (50 mcg/mL) multi-dose injection (CANCELED) ONCE PRN, Starting on Fri01/08/21 at 1539, Until Fri01/08/21 at 1851, Intra-Operative (Intra-Procedure), Routine 1539 (Given - Provid er: Rip Lagunas RN)1540 (Given - Provider: Rip Lagunas RN)1542 (Given - Provider: Rip Lagunas RN)1544 (Given - Provider: Rip Lagunas RN)1546 (Given - Provider: Rip Lagunas RN) midazolam (pf) (Versed) (1 mg/mL) multi-dose injection (CANCELED) ONCE PRN, Starting on Fri01/08/21 at 1537, Until Fri01/08/21 at 1851, Intra-Operative (Intra-Procedure), Routine 1537 (Given - Provid er: Rip Lagunas RN)1539 (Given - Provider: Rip Lagunas RN)1541 (Given - Provider: Rip Lagunas RN)1543 (Given - Provider: Rip Lagunas RN)1545 (Given - Provider: Rip Lagunas RN)1549 (Given - Provider: Rip Lagunas RN) documented in this encounter Care Teams Circus Performer Relationship Specialty Start Date End Date Laura Ross, LOUIE [address] [place] [address] PCP - General Family Medicine 10/01/17 08/21/22 documented as of this encounter
--- OUTSIDE RECORDS SUMMARY | 2024-06-12 13:42 | XMS_ITS | Encounter Summary ---
Author Organization [facility] [place] [address] Care Team Providers Care Silk Washing Machine Operator Name Role Phone Mike Goodman DNP Primary Care Provider Reason for Referral * Diagnostic Test (Routine) - Closed Specialty Diagnoses / Procedures Referred By Martha broussard Referred To Contact Gastroenterology Diagnoses Heartburn pH impedance ON PPI - heartburn see also hrem Procedures pH Impedance - 24 Hour Dinesh Lyle MD [facility] [place] [address] [facility] [address] [place] [address] Referral ID Status Reason Start Date Expiration Date V isits Requested Visits Authorized [id number] Closed Consult, Test & Treat 04/23/2023 04/22/2024 1 1 * Diagnostic Test (Routine) - Closed Specialty Diagnoses / Procedures Referred By Martha broussard Referred To Contact Gastroenterology Diagnoses Heartburn HREM - regurgitation see also ph imp Procedures High Resolution Esophageal Manometry PRG ESOPHAGEAL MOTILITY STUDY PRG GERD TST W NASAL IMPEDENCE ELECTROD Dinesh Lyle MD [facility] [place] [address] [place] [address] [facility] [address] [place] [address] Referral ID Status Reason Start Date Expiration Date V isits Requested Visits Authorized [id number] Closed Test Only 04/23/2023 04/22/2024 1 1 * Diagnostic Test (Routine) - Closed Specialty Diagnoses / Procedures Referred By Contac t Referred To Contact Radiology Diagnoses Colicky epigastric pain Procedures MRI Cholangiopancreatography wwo Contrast Dinesh Lyle MD [facility] [place] [address] [place] [address] Referral ID Status Reason Start Date Expiration Date V isits Requested Visits Authorized [id number] Closed Specialty Service Requested 04/23/2023 10/24/2024 1 1 Reason for Visit * Consultation (Routine) - Closed Specialty Diagnoses / Procedures Referred By Contac t Referred To Contact Gastroenterology Diagnoses S/P partial gastrectomy Elevated LFTs Syncope, unspecified syncope type 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 Hiatal hernia with GERD Mike Goodman, [facility] [address] [place] [address] [facility] [address] [place] [address] Referral ID Status Reason Start Date Expiration Date V isits Requested Visits Authorized [id number] Closed Consult, Test & Treat PCP Updated and/or Approved 11/13/2022 11/13/2023 6 6 Encounter Details Date Type Department Care Team (Late st Contact Info) Description 04/23/2023 9:00 AM EDT Office [place] [address] Dinesh Lyle MD [facility] [place] [address] Heartburn (Primary Dx); Colicky epigastric pain Social History Tobacco Use Types Packs/Day [...] as of this encounter Progress Notes * Dinesh Lyle MD - 04/23/2023 9:00 AM EDT [facility] Gastroenterology Telehealth Visit Primary care provider: Mike Goodman DNP Reason for visit: to focus on pain that started after first Amgdaleno Problem List Patient Active Problem List Diagnosis Date Noted Paroxysmal SVT (supraventricular tachycardia) 10/22/2022 Chest pressure 10/22/2022 Lipid screening 10/22/2022 S/P partial gastrectomy 11/26/2017 Gastroesophageal reflux 01/14/2011 Dyspepsia 01/14/2011 Disorder of female genital organ 08/16/2009 Endometriosis of other specified sites 08/09/2009 Nausea 08/09/2009 Resolved Hospital Problems No resolved problems to display. Interval History: Low iron Fatigue Debilitating pain that puts her on the ground Feels like labor pain At the beginning, in her 30''s Dr. Zepeda at [facility] saw her for chest pain relieved by NTG Saw Queen's at EGD at the time Acid regurg with voice changes First lap Magdaleno did well for 2 years No symptoms Then it slipped Had an un-do in [place] Did a re-do via [place] Did great for a while - about a year Was still in [place] Had gained weight Had cholestectomy for gallstones Also had fatty liver Continued with pain Like a toothache in the stomach This, despite acid jade Then had a Analia-en-Y gastric bypass which addressed weight and reflux Had significant nausea But ran marathons, did well Past year has had more episodes of pain attacks Can be driving along and have pain attack Sometimes Tums helps On omeprazole 4 times a day now Occasional feeling of dysphagia - described as if eats too much at once feels full in epigastrium Needs to eat small amounts and graze Cannot bring up food ingested even when heaving Just salivates and dry heaves Has not had impedance test No recent biliary imaging Pre-op pH study OFF MEDS post-opSTUDY DATES: 07/18/14 to 07/20/14 INTERPRETATION DATE: 07/25/14 PROVIDER: Rigoberto [place] ([id number]) INDICATION Reflux symptoms despite prior anti-reflux surgery. NOTE: This study was performed off of medications used to treat acid reflux. METHODS After upper endoscopy where landmarks were visualized and measured, in a supervised setting, and after informed consent, a Bill pH telemetry capsule was deployed orally and attached to the esophageal wall at 5 cm above the upper border of the LES. No complications were noted during this procedure. FINDINGS Visual inspection of the study shows fluctuations in pH values throughout the study consistent witha technically adequate study. DAY ONE Total Number of Reflux Episodes: 35 Upright Position: 35 Supine Position: 0 Reflux Episodes Longer than Five Minutes: 0 Upright: 0 Supine: 0 Duration of Longest Episode: 2 minute(s), upright position Total Distal Esophageal Acid Exposure Time: 13 minute(s). Percent of Total Recording Time: 0.9% Percent of Upright Recording Time: 1.4% Percent of Supine Recording Time: 0% DAY TWO Total Number of Reflux Episodes: 28 Upright Position: 28 Supine Position: 0 Reflux Episodes Longer than Five Minutes: 0 Upright: 0 Supine: 0 Duration of Longest Episode: 1 minute(s), upright position Total Distal Esophageal Acid Exposure Time: 9 minute(s). Percent of Total Recording Time: 0.6% Percent of Upright Recording Time: 0.9% Percent of Supine Recording Time: 0% [id number] (Total) Fraction of Time with pH Less Than 4%: 0.8% Calculated DeMeester Score (normal values are up to 14.72) Day One Calculated DeMeester Score: 4.5 Day Two Calculated DeMeester Score: 3.5 Neqfq-Nurdj-Gast DeMeester Score (Total): 4 Day One Symptoms Association Probability (SAP) for Heartburn: 74% Regurgitation: 16% Chest pain: 20% Day Two SAP for Heartburn: 78% Regurgitation: 36% Chest pain: 41% [id number] SAP for Heartburn: 89% Regurgitation: 48% Chest pain: 54% IMPRESSION During this recording period, while the patient was not on medications for acid reflux, there was no evidence of pathologic acid reflux into the distal esophagus. Symptom association for heartburn was elevated, but not statistically significant. NORMAL VALUES FOR WIRELESS pH CAPSULE STUDY 1. Total number of reflux episodes = less than 50. 2. Number of episodes longer than 5 minutes = less than 3. 3. Acid exposure time Total = less than 5.3% Upright = less than 6.3% Supine = less than 1.2%. Post-op manometry 2016 Reduced LES resting pressure. 2. Normal LES relaxation (IRP, integrated relaxation pressure). 3. UES resting pressure just above normal limits. This is usually not clinically significant. 4. Normal UES relaxation. 5. Normal motility in the body of the esophagus. Only one of 10 swallows was not transmitted. 6. No evidence of a hiatal hernia on this study. 7. Normal DCI (distal contractile integral). This is a measure of contractile vigor Barium swallo 12/2020 CLINICAL HISTORY: GERD, h/o slipped Magdaleno - check wrap TECHNIQUE: Double contrast esophagram was performed. Fluoroscopic spot films were obtained. 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 Nonobstructive bowel gas pattern. Surgical clips are seen throughout the abdomen, unchanged. Barium swallow: The esophagus is normal in course and caliber, and is well distended on double contrast views. The mucosal pattern is normal. The gastroesophageal junction is normally positioned. Esophageal peristalsis is normal. The expected tapering of the distal esophagus in a patient status post Magdaleno is not as pronounced on the current study as it was on the prior. The wrap does partially fill with contrast near the end of the examination and is appropriately positioned at/just below the level of the diaphragm. No gastroesophageal reflux was elicited with provocative maneuvers. A 13 mm barium tablet rapidly passed through the esophagus and Magdaleno wrap into the stomach without delay. IMPRESSION Status post Magdaleno fundoplication with a lack of expected tapering of the distal esophagus as well as rapid transit of 13 mm barium tablet through the wrap, concerning for wrap disruption/loosening. Liver enzyme elevation with an attack of pain evaluated at ED Voice will alter Social History Social History Narrative Not on file Review of systems as in the HPI, the rest of the review of systems were negative. Past Medical History, Social History and Family History is unchanged. Allergies/Adverse reactions Onion, Bupropion hcl, and Metoclopramide hcl No Physical Examination Performed Recent labs No visits with results within 3 Month(s) from this visit. Latest known visit with results is: Hospital Outpatient Visit on 01/02/2023 Component Date Value Ref Range Status EF 01/02/2023 56 Final Recent endoscopic procedures As in detailed in history above Recent relevant imaging As in detailed in history above Impression/Plan MRCP as a start to check biliopancreatic source Contingency for CT scan to look for internal hernia Impedance pH on meds Return to [facility] to continue evaluation and management folllowing my fci 40 minutes of this 60 minute telehealth appointment were spent in direct counseling regarding treatment of patient's gastroenterology concern. Please contact me if there are any further questions regarding the care of this patient. Dinesh Lyle MD Gastroenterology [facility] documented in this encounter Plan of Treatment Upcoming Encounters Date Type Department Care Team (Late st Contact Info) Description 06/15/2024 3:00 PM EDT Hospital [place] [address] [place] [address] 07/09/2024 8:30 AM EDT Appointment XRay at [address] [address] [place] [address] 07/17/2024 8:00 AM EDT Procedure [place] [address] 08/26/2024 8:00 AM EST Office [place] [address] 08/27/2024 9:00 AM EST Clinical [place] [address] Scheduled Orders Name Type Priority Associated Diagnoses Orde r Schedule High Resolution Esophageal Manometry GI Routine Heartburn Expected: 04/23/2023, Expires: 10/24/2024 pH Impedance - 24 Hour GI Routine Heartburn Expected: 04/23/2023 (Approximate), Expires: 10/24/2024 documented as of this encounter Results * MRI Cholangiopancreatography wwo Contrast (05/15/2023 8:43 PM EDT) Anatomical Region Laterality Modality Magnetic Resonan ce Impressions 05/16/2023 11:17 AM EDT No evidence of dilation or obstruction in the intrahepatic or extrahepatic bile ducts. I have personally reviewed the image(s) and the resident's interpretation and agree with the findings, Bharat Cabello MD at 05/16/2023 11:17 AM Thank you for letting us participate in the care of this patient. ??If you are a health care provider and have any questions regarding this report, please contact the number below. ??For patients who have questions please contact the health home health care respiratory therapist that requested your imaging first. ? Narrative 05/16/2023 11:17 AM EDT EXAMINATION: MRI CHOLANGIOPANCREATOGRAPHY WWO CONTRAST ? CLINICAL HISTORY: Hx of gallstones and s/p cholecystectomy, now with attacks of possible biliary colic with at least one episode of elevated liver tests by history Might there be an explanation for attacks of epigastric astrid pain - is there a common duct stione or other explanation? TECHNIQUE: MRCP performed prior to and following the intravenous administration of 14 mL Dotarem. 3-D MIPS were created. COMPARISON: None FINDINGS: Liver: Normal size and signal intensity. No lesions. Bile ducts: Intrahepatic bile ducts are well visualized and normal in caliber. The common bile duct is normal caliber. No intraluminal filling defects. Gallbladder: Surgically absent. Pancreas: No cystic or solid mass. Pancreatic duct: Normal caliber and configuration. Spleen: Normal size, no lesions. Adrenal glands: Normal. Kidneys: Symmetric enhancement. No hydronephrosis. No suspicious lesion. Bowel and mesentery: Non-dilated. No inflammatory changes. Lymph nodes: No lymphadenopathy. Osseous structures: No focal marrow signal abnormality. Chest wall: Well-circumscribed, T1 hypointense focus in the right lateral breast tissue. Procedure Note Bharat Cabello MD - 05/16/2023 EXAMINATION: MRI CHOLANGIOPANCREATOGRAPHY WWO CONTRAST CLINICAL HISTORY: Hx of gallstones and s/p cholecystectomy, now withattacks of possible biliary colic with at least one episode of elevated liver testsby history Might there be an explanation for attacks of epigastric astrid pain - isthere a common duct stione or other explanation? TECHNIQUE: MRCP performed prior to and following the intravenousadministration of 14 mL Dotarem. 3-D MIPS were created. COMPARISON: None FINDINGS: Liver: Normal size and signal intensity. No lesions. Bile ducts: Intrahepatic bile ducts are well visualized and normal incaliber. The common bile duct is normal caliber. No intraluminal filling defects. Gallbladder: Surgically absent. Pancreas: No cystic or solid mass. Pancreatic duct: Normal caliber and configuration. Spleen: Normal size, no lesions. Adrenal glands: Normal. Kidneys: Symmetric enhancement. No hydronephrosis. No suspicious lesion. Bowel and mesentery: Non-dilated. No inflammatory changes. Lymph nodes: No lymphadenopathy. Osseous structures: No focal marrow signal abnormality. Chest wall: Well-circumscribed, T1 hypointense focus in the right lateralbreast tissue. IMPRESSION No evidence of dilation or obstruction in the intrahepatic or extrahepaticbile ducts. I have personally reviewed the image(s) and the resident's interpretationand agree with the findings, Bharat Cabello MD at 05/16/2023 11:17 AM Thank you for letting us participate in the care of this patient. If youare a health care provider and have any questions regarding this report,please contact the number below. For patients who have questions please contactthe health home health care respiratory therapist that requested your imaging first. Dinesh Wray MD IMG MRI ORDERABL ES documented in this encounter Visit Diagnoses Diagnosis Heartburn- Primary Colicky epigastric pain Abdominal pain, epigastric Colicky epigastric pain Abdominal pain, epigastric documented in this encounter Care Teams Silk Washing Machine Operator Relationship Specialty Start Date End Date Mike Goodman DNP [address] [place] [place] [place] [address] PCP - General Family Medicine 08/22/22 documented as of this encounter
--- OUTSIDE RECORDS SUMMARY | 2024-06-12 13:42 | XMS_ITS | Encounter Summary ---
[place] [address] Care Team Providers Care Inspector Production Plastic Parts Name Role Phone Mike Goodman KYLE Primary Care Provider [phone] Reason for Referral * Consultation (Routine) - Closed Specialty Diagnoses / Procedures Referred By Martha broussard Referred To Contact Genetics Diagnoses Family history of ovarian cancer Jaimee Maki APRN [facility] [place] [address] [facility] [address]c [address] [place] [address] Referral ID Status Reason Start Date Expiration Date V isits Requested Visits Authorized [id number] Closed Consult, Test & Treat 06/17/2023 06/16/2024 1 1 * Diagnostic Test (Routine) - Closed Specialty Diagnoses / Procedures Referred By Martha broussard Referred To Contact Radiology Diagnoses Breast lesion on mammography Procedures MRI Breast wwo Contrast Bilat Jaimee Maki APRN [facility] [place] [address] [facility] [place] [address] Referral ID Status Reason Start Date Expiration Date V isits Requested Visits Authorized [id number] Closed Specialty Service Requested 06/17/2023 12/16/2024 1 1 Reason for Visit * Reason Comments Establish Care * Consultation (Routine) - Closed Specialty Diagnoses / Procedures Referred By Martha t Referred To Contact Breast Clinic / Breast Center Diagnoses Mastodynia Mass of right breast, unspecified quadrant Maxine Mike Hawa, DNP [address] [place] [address] [facility] [address] [place] [address] Referral ID Status Reason Start Date Expiration Date V isits Requested Visits Authorized [id number] Closed Consult, Test & Treat PCP Updated and/or Approved 06/04/2023 06/03/2024 6 6 Encounter Details Date Type Department Care Team (Late st Contact Info) Description 06/17/2023 1:00 PM EDT Office [place] [address] Jaimee Maki APRN [facility] [place] [address] Breast lesion on mammography; Family history of ovarian cancer Social History Tobacco Use Types Packs/Day Years Used Date Smoking Tobacco: Former Cigarettes Q uit: 12/03/2003 Smokeless Tobacco: Never Tobacco Cessation:Counseling Given: Not Answered Alcohol Use Standard Drinks/Week Comments No 0 (1 standard drink = 0.6 oz pur e alcohol) Sex and Gender Information Value Date Recorded Sex Assigned at Not on file Gender Identity Not on file Sexual Orientation Not on file documented as of this encounter Last Filed Vital Signs Vital Sign Reading Time Taken Comments Blood Pressure 119/74 06/17/2023 12:57 PM EDT Pulse 80 06/17/2023 12:57 PM EDT Temperature 36.7 ??C (98 ??F) 06/17/2023 12: 57 PM EDT Respiratory Rate 16 06/17/2023 12:5 7 PM EDT Oxygen Saturation 100% 06/17/2023 12: 57 PM EDT Inhaled Oxygen Concentration - - Weight 69.3 kg (152 lb 12.8 oz) 023 12:57 PM EDT Height - - Body Mass Index 28.4 10/22/2022 3:34 PM EST documented in this encounter Progress Notes * Jaimee Maki, LOUIE - 06/17/2023 1:00 PM EDT Images from the original note were not included. Patient ID: Mora Bolanos is a 48 y.o. female who is seen for right breast lump found on recent MRI of abdomen. HPI: Mora is here for right breast lump. She has had diagnostic imaging that was negative in December. Recent Mri cholangiogram showed a T1 right breast lesion. She has a significant family history of breast and ovarian cancer. She has never had genetic testing. At today's visit, she denies any skin changes, new breast masses, breast trauma, or prior breast surgery. No nipple discharge or pain in either breast. She denies any headaches or significant weight changes. She does endorse abdominal pain. No new chest pain or difficulty breathing. No new bony pain or tenderness. She has no new or concerning complaints of fatigue, cardiovascular, or respiratory symptoms. All other ROS are negative. She does have a history of cystic breast tissue. She has had a biopsy in her right breast for benign findings Breast Cancer Risk Factors: History Age at delivery of first child 15 yo Breast fed No Menarche age 11 yo LMP 20 yo hysterectomy Hormonal contraceptive use: Ocp's in past Hormone replacement therapy No Family history of breast cancer Mat aunt Family history of ovarian cancer Mom, 2 mat aunts Known genetic mutation Not tested Hx Ashkenazi Amish heritage? No Previous breast biopsy? Yes Previous radiation to chest? No Social Hx: She is a former smoker; ETOH - no Past Medical Hx: Gerd, Queen's, severe endometriosis Past Surgical Hx: Hysterectomy with left ovary Past Surgical History: Procedure Laterality Date PRO UNLISTED LAPAROSCOPIC PROCEDURE ESOPHAGUS 11/25/2012 LAPAROSCOPIC REVISION OF GABRIELLA FUNDOPLASTY performed by Sheridan Cassidy MD at [facility] OR PRO UNLISTED LAPAROSCOPIC PROCEDURE ESOPHAGUS N/A 11/26/2017 LAPAROSCOPIC REVISION OF GABRIELLA FUNDOPLASTY (WRVU *) performed by Sheridan Cassidy MD at [facility] OR PRO UNLISTED LAPAROSCOPIC PROCEDURE STOMACH N/A 11/26/2017 LAPAROSCOPIC GASTRECTOMY, PARTIAL, W EVIN-EN-Y RECONSTRUCTION (WRVU *) performed by Sheridan Cassidy MD at [facility] OR PRO UPPER GI ENDOSCOPY, BIOPSY 09/04/2012 EGD WITH BIOPSY performed by Didier Jones MD at [facility] ENDOSCOPY PRO UPPER GI ENDOSCOPY, BIOPSY N/A 07/22/2016 UPPER GASTROINTESTINAL ENDOSCOPY,WITH BIOPSY SINGLE OR MULTIPLE performed by Sheridan Cassidy MD [facility] ENDOSCOPY PRO UPPER GI ENDOSCOPY, BIOPSY N/A 10/20/2017 EGD WITH BIOPSY (WRVU 2.49) performed by Sheridan Cassidy MD at [facility] ENDOSCOPY PRO UPPER GI ENDOSCOPY, BIOPSY N/A 03/09/2018 EGD WITH BIOPSY (WRVU 2.49) performed by Sheridan Cassidy MD at [facility] ENDOSCOPY PRO UPPER GI ENDOSCOPY, DIAGNOSTIC 11/25/2012 ENDOSCOPY, UPPER GI, DIAGNOSTIC, WITH OR WITHOUT SPECIMENS performed by Sheridan Cassidy MD at [facility] OR PRO UPPER GI ENDOSCOPY, DIAGNOSTIC 07/18/2014 EGD, UPPER GI ENDOSCOPY performed by Sheridan Cassidy MD at [facility] ENDOSCOPY PRO UPPER GI ENDOSCOPY, DIAGNOSTIC N/A 11/26/2017 ENDOSCOPY, UPPER GI, DIAGNOSTIC, WITH OR WITHOUT SPECIMENS performed by Sheridan Cassidy MD at [facility] OR PRO UPPER GI ENDOSCOPY, DIAGNOSTIC N/A 01/08/2021 EGD, UPPER GI ENDOSCOPY performed by Sheridan Cassidy MD at [facility] ENDOSCOPY UPPER GI ENDOSCOPY, EXAM 09/04/2012 UPPER GI ENDOSCOPY performed by Didier Jones MD at [facility] ENDOSCOPY Physical Exam: General appearance: Alert, well-appearing, well-developed, well-nourished; in no acute distress. Skin: Warm and dry. Head: Normocephalic, atraumatic Neck: Soft and supple without masses or adenopathy. Breasts: Both breasts appear normal. No suspicious masses, tenderness, dimpling, erythema, or otherskin changes in either breast. No nipple discharge or other nipple changes. No palpable axillary lymph nodes bilaterally. Musculoskeletal: Full ROM in upper extremities without lymphedema. Neurological: Alert and oriented x 4. Mood is euthymic and appropriate to the situation. Tyrer-Cuzick Risk Assessment: Breast Cancer Risk (RADHA) Scores Lifetime Risk of Patient 15.5% Average Lifetime Risk 9.6% 10-Year Risk of Patient 6.1% Average 10-Year Risk 2.6% Results: FINDINGS: RIGHT BREAST MAMMOGRAM: There is a [...] No other abnormalities seen in either breast.. IMPRESSION No mammographic evidence of malignancy in either breast. Recommend routine annual screening. MRI Cholangiogram showed: Chest wall: Well-circumscribed, T1 hypointense focus in the right lateral breast tissue. Assessment: Clinical breast exam notable for fibrocystic breast tissue. At high risk due to significant family history of breast and ovarian cancer. Plan: Referral to familial cancer program for genetic testing. Breast MRI for high risk screening and recent findings on cholangiogram mri. I will see her annually with mammogram for high risk. Nonpharmacologic measures to help decrease your risk of developing breast cancer include the following: Get at least 30 minutes of moderate intensity physical activity above normal activity on most days of the week to reduce the risk of chronic disease in adulthood. Walking is a good choice. You also may want to do other activities, such as running, swimming, cycling, playing tennis, or other team sports. Do strength training exercises at least twice a week to maintain muscle and bone health. Drink alcohol in moderation, if at all. That means no more than 1 drink a day for women or 2 per day for men. Make healthy eating choices: fruits and vegetables, lean protein, and healthy fats. Minimize processed foods, simple carbohydrates, sugars, and artificial sweeteners. Maintain or achieve a healthy weight. Normal BMI < 25 for individuals under 65 years old; 22-30 for > 65 years old. Be cautious about exposure risk, both what you put in and on your body (ie: artificial fragrances, artificial dyes, as well as certain ingredients in makeup, hair and body care, antiperspirant, laundry detergent, fabric softener, dryer sheets, etc.). The nations ban over 1,300 ingredients from personal care products. Currently, the [place] bans only 11 products. Apps to help make healthier choices for personal care products are available for free at EWG (Environmental Working Group) and Think Dirty. All questions were answered to the patient's satisfaction and they state understanding and agreement with today's treatment plan. They are encouraged to follow up sooner if they develop any new or concerning symptoms. Jaimee Maki APRN Surgical Oncology P [phone] F [phone] [facility] documented in this encounter Plan of Treatment Upcoming Encounters Date Type Department Care Team (Late st Contact Info) Description 06/15/2024 3:00 PM EDT Hospital [place] [address] [place] [address] 07/09/2024 8:30 AM EDT Appointment XRay at [address] [phone] [place] [address] 07/17/2024 8:00 AM EDT Procedure [place] [address] 08/26/2024 8:00 AM EST Office [place] [address] 08/27/2024 9:00 AM EST Clinical [place] [address] Scheduled Referrals Name Type Priority Associated Diagnoses Orde r Schedule Referral to Familial Cancer Outpatient Referral Routine Family history of ovarian cancer Ordered: 06/17/2023 documented as of this encounter Results * MRI Breast wwo [...] who have questions please contact the health patient care coordinator that requested your imaging first. ? Narrative 07/30/2023 3:51 PM EST EXAMINATION: MRI [...] contrast enhancement curve analysis was performed, using inSelly software. COMPARISON STUDIES: No prior contrast-enhanced breast [...] Breast lesion on mammography Abnormal mammogram, unspecified Family history of ovarian cancer Family history of malignant neoplasm of ovary Breast lesion on mammography Abnormal mammogram, unspecified documented in this encounter Care Teams Inspector Production Pl[employer] Parts Relationship Specialty Start Date End Date Mike Goodman DNP [address] [place] [id number] PCP - General Family Medicine 08/22/22 documented as of this encounter
--- OUTSIDE RECORDS SUMMARY | 2024-06-12 13:42 | XMS_ITS | Encounter Summary ---
Author Organization [facility] [place] [address] Care Team Providers Care Health Services Director Name Role Phone Mike Goodman DNP Primary Care Provider Encounter Details Date Type Department Care Team (Latest Contact Info) Description 11/07/2022 Travel Social History Tobacco Use Types Packs/Day [...] PM EDT Hospital Encounter [place] [address] [place] [address] 07/09/2024 8:30 AM EDT Appointment XRay at [address] [phone] Alena Pizarro [employer] [place] [address] 07/17/2024 8:00 AM EDT Procedure visit [place] [address] 08/26/2024 8:00 AM EST Office [place] [address] 08/27/2024 9:00 AM EST Clinical [place] [address] documented as of this encounter Visit Diagnoses Not on filedocumented in this encounter Care Teams Health Services Director Relationship Specialty Start Date End Date Mike Goodman DNP [address] [place] [address] PCP - General Family Medicine 08/22/22 documented as of this encounter
--- OUTSIDE RECORDS SUMMARY | 2024-06-12 13:42 | XMS_ITS | Encounter Summary ---
Author Organization [facility] [place] [address] Care Team Providers Care Research Programmer Name Role Phone Mike Goodman DNP Primary Care Provider [phone] Encounter Details Date Type Department Care Team (Late st Contact Info) Description 09/19/2022 Ancillary Procedure Radiology Library at [facility] [place] [address] Mike Goodman, KYLE [address] [place] [address] Social History Tobacco Use Types Packs/Day Years [...] PM EDT Hospital Encounter CT Scan at [facility] [place] [phone] Alena Pizarro APRN [facility] [place] [address] 07/09/2024 8:30 AM EDT Appointment XRay at [address] [address] [place] [address] 07/17/2024 8:00 AM EDT Procedure visit [place] [address] 08/26/2024 8:00 AM EST Office [place] [address] 08/27/2024 9:00 AM EST Clinical [place] [address] documented as of this encounter Procedures Procedure Name Priority Date/Time Associated Diagnosis Comments FILM LIBRARY-STORAGE ONLY US BREAST Routine 09/19/2022 12:00 AM EST documented in this encounter Results * Film Library Storage Only US Breast (09/19/2022 12:00 AM EST) Narrative [facility] - 12/13/2022 8:55 AM EDT This exam is auto-finalizing. It's purpose is for storage only. Mike Goodman DNP IMKaren FILM LIBRARY OR DERABLES Performing Organization Address City/State/[facility] Co de Phone Number [place], [place] documented in this encounter Visit Diagnoses Not on filedocumented in this encounter Care Teams Research Programmer Relationship Specialty Start Date End Date Mike Goodman DNP [address] [place] [address] PCP - General Family Medicine 08/22/22 documented as of this encounter
--- OUTSIDE RECORDS SUMMARY | 2024-06-12 13:42 | XMS_ITS | Encounter Summary ---
Author Organization [facility] [place] [address] Care Team Providers Care Oracle Apex Developer Name Role Phone Mike Goodman DNP Primary Care Provider Encounter Details Date Type Department Care Team (Late st Contact Info) Description 09/19/2022 12:05 AM EST Ancillary Procedure Radiology Library at [facility] [place] [address] Mike Goodman DNP [address] [place] [address] Social History Tobacco Use Types [...] PM EDT Hospital Encounter CT Scan at [facility] [place] [address] Alena Pizarro APRN [facility] [place] [address] 07/09/2024 8:30 AM EDT Appointment XRay at [address] [address] [place] [address] 07/17/2024 8:00 AM EDT Procedure [place] [address] 08/26/2024 8:00 AM EST Office [place] [address] 08/27/2024 9:00 AM EST Clinical [place] [address] documented as of this encounter Procedures Procedure Name Priority Date/Time Associated Diagnosis Comments FILM LIBRARY STORAGE ONLY MAMMO Routine 09/19/2022 12:05 AM EST documented in this encounter Results * Film Library- Storage Only Mammo (09/19/2022 12:05 AM EST) Narrative [facility] - 12/13/2022 8:56 AM EDT This exam is auto-finalizing. It's purpose is for storage only. Mike Goodman DNP IMKaren FILM LIBRARY OR DERABLES Performing Organization Address City/State/[facility] Co de Phone Number [place], [place] documented in this encounter Visit Diagnoses Not on filedocumented in this encounter Care Teams Oracle Apex Developer Relationship Specialty Start Date End Date Mike Goodman DNP [address] [place] [address] PCP - General Family Medicine 08/22/22 documented as of this encounter
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
--- OUTSIDE RECORDS SUMMARY | 2024-06-12 13:42 | XMS_ITS | Encounter Summary ---
[place] [address] Care Team Providers Care Circus Trainer Name Role Phone Mike Goodman DNP Primary Care Provider [phone] Reason for Referral * Consultation (Routine) - Denied Specialty Diagnoses / Procedures Referred By Martha broussard Referred To Contact Rheumatology Diagnoses Pain in joint, multiple sites Family history of systemic lupus erythematosus Mike Goodman DNP [address] [place] [address] [facility] [address] [place] [phone] Referral ID Status Reason Start Date Expiration Date V isits Requested Visits Authorized [id number] Denied Consult, Test & Treat PCP Updated and/or Approved 08/22/2022 08/22/2023 6 0 Encounter Details Date Type Department Care Team (Late st Contact Info) Description 08/22/2022 Transcribe Orders eDH Incoming Referrals [phone] Mike Goodman DNP [facility] ethology [place], [place] [id number] Pain in joint, multiple sites; Family history of systemic lupus erythematosus Social History Tobacco Use Types Packs/Day Years [...] PM EDT Hospital [place] [address] [place] [address] 07/09/2024 8:30 AM EDT Appointment XRay at [address] [address] [place] [address] 07/17/2024 8:00 AM EDT Procedure [place] [address] 08/26/2024 8:00 AM EST Office Visit [place] [address] 08/27/2024 9:00 AM EST Clinical Support [place] [address] Scheduled Referrals Name Type Priority Associated Diagnoses Orde r Schedule Referral to Rheumatology Outpatient Referral Routine Pain in joint, multiple sites Family history of systemic lupus erythematosus Ordered: 08/22/2022 documented as of this encounter Visit Diagnoses Diagnosis Pain in joint, multiple sites Family history of systemic lupus erythematosus Family history of skin conditions documented in this encounter Care Teams Circus Trainer Relationship Specialty Start Date End Date Mike Goodman DNP [address] [place] [address] PCP - General Family Medicine 08/22/22 documented as of this encounter
--- OUTSIDE RECORDS SUMMARY | 2024-06-12 13:42 | XMS_ITS | Encounter Summary ---
Author Organization Formerly [facility] [place] [address] Care Team Providers Care Theatre Professor Name Role Phone Mike Goodman DNP Primary Care Provider [phone] Encounter Details Date Type Department Care Team (Latest Contact Info) Description 10/22/2022 Travel Social History Tobacco Use Types Packs/Day [...] PM EDT Hospital [place] [address] [place] [address] 07/09/2024 8:30 AM EDT Appointment XRay at [address] [phone] Alena Pizarro [place] [address] 07/17/2024 8:00 AM EDT Procedure [place] [address] 08/26/2024 8:00 AM EST Office [place] [address] 08/27/2024 9:00 AM EST Clinical Support [place] [address] documented as of this encounter Visit Diagnoses Not on filedocumented in this encounter Care Teams Theatre Professor Relationship Specialty Start Date End Date Mike Goodman DNP [address] [place] [address] PCP - General Family Medicine 08/22/22 documented as of this encounter
--- OUTSIDE RECORDS SUMMARY | 2024-06-12 13:42 | XMS_ITS | Encounter Summary ---
[place] [address] Care Team Providers Care Port Cdl A Driver Name Role Phone Laura Ross LOUIE Primary Care Provider [phone] Reason for Visit * Auth/Cert Specialty Diagnoses / Procedures Referred By Martha broussard Referred To Contact Diagnoses GERD (gastroesophageal reflux disease) GERD Procedures PRO UPPER GI ENDOSCOPY, DIAGNOSTIC PRO UPPER GI ENDOSCOPY, BIOPSY PRO UP GI ENDOSCOPY, REMV TUMOR, SNARE EGD, UPPER GI ENDOSCOPY Referral ID Status Reason Start Date Expiration Date Visits Re quested Visits Authorized [id number] 1 1 Encounter Details Date Type Department Care Team (Latest Contact Info) Description 01/08/2021 1:39 PM EDT - 01/08/2021 4:51 PM EDT Hospital Encounter [place] [address] Sheridan Cassidy MD [facility] [place] [address] Discharge Disposition: Home Social History Tobacco Use [...] Sign Reading Time Taken Comments Blood Pressure 110/72 01/08/2021 4:30 PM EDT Pulse 77 01/08/2021 3:35 PM EDT Temperature 36.8 ??C (98.2 ??F) 01/08/2021 2:39 PM ED T Respiratory Rate 16 01/08/2021 4:30 PM EDT Oxygen Saturation 100% 01/08/2021 4:30 PM EDT Inhaled Oxygen Concentration - - [...] the day after the procedure, use an pktr-oud-sggwiym spray to numb your throat. Sucking on [...] occurs, please contact your Doctor. Please call [phone] before 8pm Mon-Fri with problems, questions or concerns. If you call after 8pm or on weekends, call the Hospital at [phone] and ask to speak to the Cardiac/Vascular Sonographer technical applications specialist and the pickling operator will contact that person for you. When should you call for help? Call [phone] anytime you think you may need emergency [...] After Visit Summary and more online at [email or web address] If you would like to provide [...] cost to you. Content Version: 12.2 ?? [id number] [email or web address]. Care instructions adapted under license by [facility]. If you have questions about a medical condition or this instruction, always ask your healthcare professional. [email or web address] disclaims any warranty or liability for your [...] Eng MD - 01/08/2021 3:17 PM EDT [facility] Minimally Invasive Surgery Interval History and Physical [...] tried a number of PPIs and other zxcx-bot-duvqvnc meds totry to combat her symptoms with [...] FUNDOPLASTY performed by Sheridan Cassidy MD at [facility] MAIN OR ??? PRO LAP, ESOPHAGUS, OTHER PROC N/A 11/26/2017 LAPAROSCOPIC REVISION OF GABRIELLA FUNDOPLASTY (WRVU *) performed by Sheridan Cassidy MD at [facility] MAIN OR ??? PRO LAP, STOMACH, OTHER, W/O TUBE N/A 11/26/2017 LAPAROSCOPIC GASTRECTOMY, PARTIAL, W EVIN-EN-Y RECONSTRUCTION (WRVU *) performed by Sheridan Cassidy MD at [facility] MAIN OR ??? PRO UPPER GI ENDOSCOPY, BIOPSY 09/04/2012 EGD WITH BIOPSY performed by Didier Jones MD at [facility] ENDOSCOPY ??? PRO UPPER GI ENDOSCOPY, BIOPSY N/A 07/22/2016 UPPER GASTROINTESTINAL ENDOSCOPY,WITH BIOPSY SINGLE OR MULTIPLE performed by Sheridan Cassidy MD [facility] ENDOSCOPY ??? PRO UPPER GI ENDOSCOPY, BIOPSY N/A 10/20/2017 EGD WITH BIOPSY (WRVU 2.49) performed by Sheridan Cassidy MD at [facility] ENDOSCOPY ??? PRO UPPER GI ENDOSCOPY, BIOPSY N/A 03/09/2018 EGD WITH BIOPSY (WRVU 2.49) performed by Sheridan Cassidy MD at [facility] ENDOSCOPY ??? PRO UPPER GI ENDOSCOPY, DIAGNOSTIC 11/25/2012 ENDOSCOPY, UPPER GI, DIAGNOSTIC, WITH OR WITHOUT SPECIMENS performed by Sheridan Cassidy MD at [facility] OR ??? PRO UPPER GI ENDOSCOPY, DIAGNOSTIC 07/18/2014 EGD, UPPER GI ENDOSCOPY performed by Sheridan Cassidy MD at [facility] ENDOSCOPY ??? PRO UPPER GI ENDOSCOPY, DIAGNOSTIC N/A 11/26/2017 ENDOSCOPY, UPPER GI, DIAGNOSTIC, WITH OR WITHOUT SPECIMENS performed by Sheridan Cassidy MD at [facility] OR ??? UPPER GI ENDOSCOPY, EXAM 09/04/2012 UPPER GI ENDOSCOPY performed by Didier Jones MD at [facility] ENDOSCOPY No current facility-administered medications on file [...] Gatherings with Friends and Family: ??? Attends [employer] Services: ??? Active Member of Clubs or [...] PM EDT Hospital [place] [address] Alena Pizarro [employer] [address] 07/09/2024 8:30 AM EDT Appointment XRay at [address] [address] [place] [address] 07/17/2024 8:00 AM EDT Procedure [place] [address] 08/26/2024 8:00 AM EST Office Visit [place] [address] 08/27/2024 9:00 AM EST Clinical Support [place] [address] documented as of this encounter Procedures Procedure Name Priority Date/Time Associated Diagnosis Comments Upper GI Endoscopy, Diagnostic (41270) 01/08/2021 3:35 PM EDT GERD UPPER GI ENDOSCOPY Routine 01/08/2021 3: 12 PM EDT documented in this encounter Results * UPPER GI ENDOSCOPY (01/08/2021 3:12 PM EDT) UPPER GI ENDOSCOPY [facility] Endoscopy Procedure Date: 01/08/2021 3:12 PM ? Patient Name: Mora Fecteau ? Date of : 1975 ? Age: 45 ? Order #: [id number] ? Instrument Name: [id number] ? Procedure: ? Upper GI endoscopy Indications: [...] the physician, the nurse and the ? data center technician in the pre-procedure area ? in [...] appearing mucosa. This was ? traversed. The nlngo-dy-xprezey limb was ? characterized by healthy appearing [...] Procedure Code(s): ?? --- Professional --- ? 38100, Esophagogastroduod enoscopy, ? flexible, transoral; diagnostic, ? including collection of specimen(s) ? by brushing or washing, when ? performed (separate procedure) CPT copyright 2019 [employer]. All rights reserved. The codes documented in this report are preliminary and upon wildlife biology internship review may be revised to meet current compliance requirements. Attending Participation: ? I personally performed the entire procedure. ? Sheridan Cassidy MD 01/08/2021 3:55:47 PM This report has been signed electronically. Number of Addenda: 0 Note Initiated On: 01/08/2021 3:12 PM PROVATION 01/08/2021 3:12 PM EDT Laura Ross CUSTOMS COMPLIANCE SPECIALIST GENERAL SURGICAL ORD ERABLES PROVATION documented in this encounter Visit Diagnoses Not on filedocumented in this encounter Administered Medications Inactive Administered Medications - up to 3 most recent administrations Medication Order MAR Action Action Date Dose Rate Site lactated ringers infusion 100 mL/hr, Intravenous, CONTINUOUS, Starting on 01/08/21 at 1515, Until Fri01/08/21 at 1635, Endoscopy (Day of Procedure) New Bag 01/08/2021 2:53 PM EDT 100 mL/hr 100 mL/hr documented in [...] RN) documented in this encounter Care Teams Port Cdl A Driver Relationship Specialty Start Date End Date Laura Ross APRN [address] [place] [address] PCP - General Family Medicine 10/01/17 08/21/22 documented as of this encounter
--- OUTSIDE RECORDS SUMMARY | 2024-06-12 13:42 | XMS_ITS | Encounter Summary ---
Author Organization [facility] Address [facility] [place] [address] Care Team Providers Care Aboriginal Liaison Officer Name Role Phone Mike Goodman DNP Primary Care Provider Encounter Details Date Type Department Care Team (Latest Contact Info) Description 12/20/2022 8:14 AM EDT - 12/20/2022 11:59 PM EDT Hospital [place] [address] Maria Alejandra Aparicio MD [facility] [place] [address] Abnormal finding on breast imaging Discharge Disposition: Home Social History Tobacco Use [...] muscle as needed (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 01/11/2011 OMEPRAZOLE ORAL Take 40 mg by mouth [...] PM EDT Hospital [place] [address] [place] [address] 07/09/2024 8:30 AM EDT Appointment XRay at [address] [phone] [place] [address] 07/17/2024 8:00 AM EDT Procedure [place] [address] 08/26/2024 8:00 AM EST [place] [address] 08/27/2024 9:00 AM EST Clinical [place] [address] documented as of this encounter Procedures Procedure Name Priority Date/Time Associated Diagnosis Comments MAMMO BREAST US LIMITED BILATERAL Routine 12/20/2022 10:30 AM EDT Abnormal finding on breast imaging documented in this encounter Results * US Breast Limited Bilat (12/20/2022 10:30 AM EDT) Anatomical Region Laterality Modality Breast [...] who have questions please contact the health student career development specialist that requested your imaging first. ? Electronically signed by: Nagi Ruffin [facility] ([phone]), at 12/20/2022 11:08 AM Narrative 12/20/2022 11:08 AM EDT BILATERAL BREAST [...] Alejandra Aparicio MD IMG MAMMO ORD ERABLES documented in this encounter Visit Diagnoses Diagnosis Abnormal finding on breast imaging Other (abnormal) findings on radiological examination of breast documented in this encounter Care Teams Aboriginal Liaison Officer Relationship Specialty Start Date End Date iMke Goodman DNP [address] [place] [address] PCP - General Family Medicine 08/22/22 documented as of this encounter
--- OUTSIDE RECORDS SUMMARY | 2024-06-12 13:42 | XMS_ITS | Encounter Summary ---
Author Organization [facility] Address [facility] [place] [address] Care Team Providers Care Check Processor Name Role Phone Mike Goodman DNP Primary Care Provider [phone] Encounter Details Date Type Department Care Team (Late st Contact Info) Description 06/17/2023 1:45 PM EDT Office [place] [address] Sheridan Cassidy MD [facility] [place] [address] S/P partial gastrectomy Social History Tobacco Use [...] Progress Notes * Sheridan Cassidy MD - 06/17/2023 1:45 PM EDT Mora Bolanos was seen with complaints of recurrent abdominal pain and gerd despite her previous 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 We went over the differential diagnoses of this and I am concerned that she may be experiencing intermittent internal herniation causing this pain and subsequent regurgitation. Next step is diagnostic laparoscopy. Informed consent obtained toady, scheduled in the near future, documented in this encounter Plan of Treatment Upcoming Encounters Date Type Department Care Team (Late st Contact Info) Description 06/15/2024 3:00 PM EDT Hospital [place] [address] Alena Pizarro MARINE ENGINE [place] [address] 07/09/2024 8:30 AM EDT Appointment XRay at [address] [phone] [place] [address] 07/17/2024 8:00 AM EDT Procedure [place] [address] 08/26/2024 8:00 AM EST Office [place] [address] 08/27/2024 9:00 AM EST Clinical [place] [address] documented as of this encounter Visit Diagnoses Diagnosis S/P partial gastrectomy Other postprocedural status documented in this encounter Care Teams Check Processor Relationship Specialty Start Date End Date Mike Goodman DNP [address] [place] [address] [place] [address] PCP - General Family Medicine 08/22/22 documented as of this encounter
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
--- OUTSIDE RECORDS SUMMARY | 2024-06-12 13:42 | XMS_ITS | Encounter Summary ---
Author Organization [facility] [place] [address] Care Team Providers Care Associate Professor Of Sociology Name Role Phone Mike Goodman DNP Primary Care Provider Encounter Details Date Type Department Care Team (Latest Contact Info) Description 11/14/2022 Travel Social History Tobacco Use Types Packs/Day [...] PM EDT Hospital [place] [address] [place] [address] 07/09/2024 8:30 AM EDT Appointment XRay at [address] [phone] Alena Pizarro [employer] [address] 07/17/2024 8:00 AM EDT Procedure visit [place] [address] 08/26/2024 8:00 AM EST Office [place] [address] 08/27/2024 9:00 AM EST Clinical [place] [address] documented as of this encounter Visit Diagnoses Not on filedocumented in this encounter Care Teams Associate Professor Of Sociology Relationship Specialty Start Date End Date Mike Goodman DNP [address] [place] [id number] PCP - General Family Medicine 08/22/22 documented as of this encounter
--- OUTSIDE RECORDS SUMMARY | 2024-06-12 13:42 | XMS_ITS | Encounter Summary ---
[place] [address] Care Team Providers Care Chef Teacher Name Role Phone Mike Goodman KYLE Primary Care Provider Reason for Referral * Diagnostic Test (Routine) - Closed Specialty Diagnoses / Procedures Referred By Martha t Referred To Contact Radiology Diagnoses Chest pressure Procedures CT Angiogram Coronary Arteries Betina Shahid MD [facility] [place] [address] [facility] [place] [address] Referral ID Status Reason Start Date Expiration Date V isits Requested Visits Authorized [id number] Closed Specialty Service Requested 10/22/2022 04/21/2024 1 1 * Diagnostic Test (Routine) - Closed Specialty Diagnoses / Procedures Referred By Martha broussard Referred To Contact Cardiology Diagnoses Paroxysmal SVT (supraventricular tachycardia) Procedures Echocardiogram Transthoracic Betina Shahid MD [facility] [place] [address] [facility] [place] [address] Referral ID Status Reason Start Date Expiration Date V isits Requested Visits Authorized [id number] Closed Specialty Service Requested 10/22/2022 10/22/2023 1 1 * Consultation (Routine) - Closed Specialty Diagnoses / Procedures Referred By Contact Referred To Contact Electrophysiology / Cardiology Diagnoses Paroxysmal SVT (supraventricular tachycardia) history of SVTs, most recent monitor pending, has had presyncopal and syncopal events in the last couple of months. *Zio scanned in from 2019* Betina Shahid MD [facility] [place] [address] [facility] [address] [place] [phone] Referral ID Status Reason Start Date Expiration Date V isits Requested Visits Authorized [id number] Closed Consult, Test & Treat 10/22/2022 10/22/2023 1 1 Reason for Visit * Consultation (Routine) - Closed Specialty Diagnoses / Procedures Referred By Contac t Referred To Contact Cardiology Diagnoses Syncope, unspecified syncope type SYNCOPE. FHX CARDIAC ISSUES. 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 HAS RECURRENT SYNCOPAL EPISODES. 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 CURRENTLY WEARING A ZIO. *SCANNED DOCS Mike Goodman, DNP [address] [facility] [place] [address] [facility] [address] [place] [phone] Referral ID Status Reason Start Date Expiration Date V isits Requested Visits Authorized [id number] Closed Consult, Test & Treat 10/14/2022 10/14/2023 1 1 Encounter Details Date Type Department Care Team (Late st Contact Info) Description 10/22/2022 3:30 PM EST Office Visit Cardiology at [address] [phone] Betina Shahid MD [facility] [place] [address] Paroxysmal SVT (supraventricular tachycardia); Chest pressure; Lipid screening Social History Tobacco Use Types Packs/Day Years [...] Sign Reading Time Taken Comments Blood Pressure 116/66 10/22/2022 3:34 PM EST Pulse 82 10/22/2022 3:34 PM EST Temperature - - Respiratory Rate - - Oxygen Saturation 100% 10/22/2022 3:34 PM EST Inhaled Oxygen Concentration - - Weight 66.6 kg (146 lb 12.8 oz) 10/22/2022 3:34 PM EST Height 156.2 cm (5' 1.5) 10/22/2022 3:34 PM EST Body Mass Index 27.29 10/22/2022 3:34 PM EST documented in this encounter Progress Notes * Betina Shahid MD - 10/22/2022 3:30 PM EST [facility] [place] [phone] Subjective: Patient ID: Meagan Bolanos is a 47 y.o. female. Pt referred for: SYNCOPE. FHX CARDIAC ISSUES. 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 HAS RECURRENT SYNCOPAL EPISODES. WAS TOLD SOME PLAYERS IN [place] PLAY WHEN THEY AREN'T SUPPOSED TO. CURRENTLY WEARING A HEART MONITOR - BODYGUARDIAN MINI EL (sending to preventis in [facility] on 10/17. *SCANNED DOCS FROM [facility] -P: [phone] F: [phone] Patient Active Problem List Diagnosis ??? Paroxysmal [...] retained food in stomach, otherwise normal. -EGD, [facility], Dr. Julius Zepeda, 03/15/10: small hiatal hernia noted. Distal esophagitis noted, ? Queen???s. ??? Dyspepsia ??? 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 Endometriosis of other specified sites ??? Nausea Overview: ICD10 Update Auto Replacement She has had episodes of heart racing since her 30s. Now it seems to bother her more, now more intense and longer, 1-3x/day, sometimes triggered by eating, sudden onset, also triggered by walking stairs (has many in her house). 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 She had episodes of fainting/presycnope/syncope since June 2022, preceded by heart racing, has hurt her knee once when losing consciousness (which only has happened 2-3 x, but third time her told her she was still talking to him and did not really black out). She heart monitor for 2 weeks until 10/19/2022 but the result is not yet available (she had several episodes of heart racing and pr esyncope during that monitoring period). . She also has episodes of heart stopping and skipping beats. Her episodes can be associated with chest pressure. Sometimes she has noticed chest pressure (and skipping) with exertion without heart racing. She has been active until 2 months ago, riding horses, running 3-5 miles. Her cholesterol is good. Her brother of stroke at 51 yo. Mother of stroke age 76. Her father had CHF, 82 yo. Review of Systems Cardio[facility]ascular Pre Appointment Symptom Review 10/21/2022 Shortness of breath: Only with moderate or strenous activity Palpitations (skipped beats): Yes Leg swelling: No Dizziness/light headedness: Yes Loss of consciousness: Yes Difficulty lying flat (because of breathing): No Chills: No Fatigue: No Fever: No Unintended weight change: No Nosebleeds: No Difficulty swallowing: No Visual disturbances: Yes Frequent cough: No Wheezing: No Snoring: No Abdominal pain: Yes Diarrhea: Yes Blood in bowel movement: No Black, tarry bowel movement: No Nausea/vomiting: Yes Heat/cold intolerance: No Problems urinating: No Joint pains: Yes Muscle pain: Yes Rash: No Weakness/numbness: Yes Speech problems: No Easy bruising/bleeding: Yes Depression: No Anxiety: Yes Poor sleep: Yes No family history on file. Social History Social History Narrative ??? Not on file Social History Tobacco Use ??? Smoking status: Former Packs/day: 1.00 Types: Cigarettes Quit date: 12/03/2003 Years since quittin.8 ??? Smokeless tobacco: Never Substance Use Topics ??? Alcohol use: No Outpatient Medications Marked as Taking for the 10/22/22 encounter (Office Visit) with Betina Shahid MD Medication Sig Dispense Refill ??? OMEPRAZOLE ORAL [...] the muscle as needed (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 Objective: BP 116/66 (BP Location (NBP): Left arm, Patient Position: Sitting, BP Cuff Sizes: Adult (25-34 cm)) Pulse 82 Ht 156.2 cm (5' 1.5) Wt 66.6 kg (146 lb 12.8 oz) SpO2 100% BMI 27.29 kg/m?? Physical Exam Constitutional: Appearance: She is well-developed. HENT: Head: Normocephalic and atraumatic. Eyes: General: No scleral icterus. Neck: Vascular: No JVD. Cardiovascular: Rate and Rhythm: Normal rate and regular rhythm. Heart sounds: Normal heart sounds. No murmur heard. No friction rub. No gallop. Pulmonary: Effort: Pulmonary effort is normal. Breath sounds: Normal breath sounds. Abdominal: Palpations: Abdomen is soft. Musculoskeletal: Right lower leg: No edema. Left lower leg: No edema. Skin: General: Skin is warm and dry. Findings: No rash. Neurological: Mental Status: She is alert. Psychiatric: Behavior: Behavior normal. Recent Results (from the past 72 hour(s)) TSH Result Value Ref Range TSH 1.59 0.27 - 4.20 mcIU/mL Lipid Panel (Reflex Direct LDL) Result Value Ref Range Chol, Total 189 mg/dL Triglycerides 77 mg/dL HDL 75 mg/dL LDL Cholesterol 99 mg/dL Chol/HDL Ratio 2.5 ratio Lipid Interpretation See Note Assessment and Plan: Paroxysmal SVT (supraventricular tachycardia) Since she seems to have had ablation worthy SVTs diagnosed years ago will refer to EP team even though most recent monitor result is still pending. She has never taking a beta jade. Will obtain echocardiogram, TSH. Chest pressure Exertional chest pressure in addition to chest pressure with heart racing. She thinks stress tests in the past were negative. Will see whether coronary CTA is covered. Lipid screening Will check lipid panel and Lp(a). Total time spent on this visit today: 60 minutes. documented in this encounter Miscellaneous Notes * Assessment & Plan Note - Betina Shahid MD - 10/22/2022 4:17 PM ESTAssociated Problem(s): Lipid screening Will check lipid panel and Lp(a). * Assessment & Plan Note - Betina Shahid MD - 10/22/2022 4:11 PM ESTAssociated Problem(s): Chest pressure Exertional chest pressure in addition to chest pressure with heart racing. She thinks stress tests in the past were negative. Will see whether coronary CTA is covered. * Assessment & Plan Note - Betina Shahid MD - 10/22/2022 4:06 PM ESTAssociated Problem(s): Paroxysmal SVT (supraventricular tachycardia) Since she seems to have had ablation worthy SVTs diagnosed years ago will refer to EP team even though most recent monitor result is still pending. She has never taking a beta jade. Will obtain echocardiogram, TSH. documented in this encounter Plan of Treatment Upcoming Encounters Date Type Department Care Team (Late st Contact Info) Description 06/15/2024 3:00 PM EDT Hospital [place] [address] Alena Pizarro, [place] [address] 07/09/2024 8:30 AM EDT Appointment XRay at [address] [address] [place] [address] 07/17/2024 8:00 AM EDT Procedure [place] [address] 08/26/2024 8:00 AM EST [place] [address] 08/27/2024 9:00 AM EST Clinical [place] [address] Scheduled Referrals Name Type Priority Associated Diagnoses Order Schedule Referral to Cardiac Electrophysiology Outpatient Referral Routine Paroxysmal SVT (supraventricular tachycardia) Ordered: 10/22/2022 documented as of this encounter Procedures Procedure Name Priority Date/Time Associated Diagnosis Comments [facility] LIPOPROTEIN A Routine 10/22/2022 4:51 PM EST Lipid screening HC THYROID STIMULATING HORMONE, SERUM Routine 10/22/2022 4:51 PM EST Paroxysmal SVT (supraventricular tachycardia) LIPID PANEL (REFLEX DIRECT LDL) Routine 10/22/2022 4:51 PM EST Lipid screening documented in this encounter Results * ECHO COMPLETE (01/02/2023 4:08 PM EDT) EF 56 HEARTLAB SYSTEM Anatomical Region Laterality Modality Cardiac Other 01/02/2023 3:02 PM EDT Narrative 01/02/2023 4:17 PM EDT ? Echocardiogram Report Name: PIPEMEAGAN NICHOLSON A ? Study Date: 01/02/2023 03:02 PMBP: 113/66 mmHg ? Patient Location: 4A : 1975 ? Height: 156 cm ? Account: [id number] Age: 47 yrs ? Weight: 66 kg Gender: Female ?BSA: 1.7 m2 Ordering Physician: BETINA SHAHID Referring Physician: BETINA SHAHID Performed By: Cheryl Torres Reason For Study: Paroxysmal SVT (supraventricular tachycardia) Exam Location: [facility]. Interpretation Summary This was essentially a normal study. Please see below for details. Procedure Complete-[id number]. Satisfactory quality. There is normal sinus rhythm. Ventricular ectopy occurs frequently during the study. Left Ventricle Wall thickness is normal. Left ventricle is of normal size. There is no ventricular septal defect. Left ventricular systolic function is normal. The left ventricular ejection fraction is 56% by 3D volumetric assessment. There are no segmental wall motion abnormalities. Right Ventricle The right ventricle is of normal size. Right ventricular systolic function is normal. Left Atrium The left atrium is normal. There is no evidence for a patent foramen ovale. Right Atrium The right atrium is normal. Aortic Valve The aortic valve is tricuspid. There is no aortic stenosis. There is no aortic regurgitation. Mitral Valve The mitral valve is structurally normal. There is no mitral stenosis. There is trace mitral regurgitation. Tricuspid Valve The tricuspid valve is structurally normal. There is no tricuspid stenosis. There is trace tricuspid regurgitation. Pulmonic Valve The pulmonic valve appears to be structurally normal. There is no valvular pulmonic stenosis. There is no pulmonic valve regurgitation. Great Arteries The diameter at the level of the sinuses of Valsalva is 3.1 cm. The maximum diameter of the proximal ascending aorta is 3 cm. Venous Inferior vena cava is normal in size. Inferior vena cava collapse greater than 50% with respiration. Pericardium/Pleural There is no pericardial effusion. Hemodynamics The estimated right atrial pressure is 3mmHg. Pulmonary artery hypertension could not be assessed due to inadequate tricuspid regurgitation jet. Left ventricular diastolic function is normal. Left ventricular filling pressure is normal. Ejection Fraction ?2D Measurements ? Volumes EF(MOD-bp): 56.1 % ?IVSd: 0.61 cm ?LAV(MOD- bp) Indexed: 4D EF: 56.4 % ? LVIDd: 5.1 cm ?LVIDs: 3.5 cm ?20.9 ml/m2 ?LVPWd: 0.49 cm ? RA A4Cs_phl: 12.2 cm2 ? EDV (MOD-bp) Index: 65.3 ?LV mass(C)d: 87.7 grams ?ESV (MOD-bp) Index: 28.6 ?LV mass(C)dI: 52.9 grams/m2 ?3D ESV: 36.3 ml ?Ao root diam: 3.1 cm ? 3D EDV: 83.3 ml ?Ao root diam index: 1.9 ?3D EDV Index: 50.2 ?asc Aorta Diam: 3.0 cm ?TAPSE_phl: 1.7 cm ?3D ESV Index: 21.9 Doppler LV V1 VTI: 20.4 cm MV E max miguel: 81.1 cm/sec MV A max miguel: 84.6 cm/sec MV E/A: 0.96 MV dec time: 0.15 sec Lat Peak E' Miguel: 11.4 cm/sec E/ e' (lat): 7.1 Med Peak E' Miguel: 9.0 cm/sec E/e' (med): 9.0 E/e' Average: 8.1 I ?WMSI = 1.00 ? % Normal = 100 ?Segments ??Size X - Cannot ?2 - ?4 - ?1-2 ? small Interpret ?1 - Normal ?? Hypokinetic 3 - Akinetic Dyskinetic ?? 3-5 ? moderate 5 - ? 6-14 ?large Aneurysmal ?15-16 ?? diffuse Procedure Note Betina Shahid MD - 01/02/2023 Echocardiogram Report Name: MEAGAN BOLANOS Study Date: 303:02 PMBP: 113/66 mmHg Patient Location: : 1975 Height: 156 cm Account: [id number] Age: 47 yrs Weight: 66 kg Gender: Female BSA: 1.7 m2 Ordering Physician: BETINA SHAHID Referring Physician: BETINA SHAHID Performed By: Cheryl Torres Reason For Study: Paroxysmal SVT (supraventricular tachycardia) Exam Location: [facility]. Interpretation Summary This was essentially a normal study. Please see below for details. Procedure Complete-[id number]. Satisfactory quality. There is normal sinus rhythm.Ventricular ectopy occurs frequently during the study. Left Ventricle Wall thickness is normal. Left ventricle is of normal size. There is no ventricular septal defect. Left ventricular systolic function is normal.The left ventricular ejection fraction is 56% by 3D volumetric assessment. Thereare no segmental wall motion abnormalities. Right Ventricle The right ventricle is of normal size. Right ventricular systolic functionis normal. Left Atrium The left atrium is normal. There is no evidence for a patent foramenovale. Right Atrium The right atrium is normal. Aortic Valve The aortic valve is tricuspid. There is no aortic stenosis. There is noaortic regurgitation. Mitral Valve The mitral valve is structurally normal. There is no mitral stenosis.There is trace mitral regurgitation. Tricuspid Valve The tricuspid valve is structurally normal. There is no tricuspidstenosis. There is trace tricuspid regurgitation. Pulmonic Valve The pulmonic valve appears to be structurally normal. There is novalvular pulmonic stenosis. There is no pulmonic valve regurgitation. Great Arteries The diameter at the level of the sinuses of Valsalva is 3.1 cm. Themaximum diameter of the proximal ascending aorta is 3 cm. Venous Inferior vena cava is normal in size. Inferior vena cava collapse greaterthan 50% with respiration. Pericardium/Pleural There is no pericardial effusion. Hemodynamics The estimated right atrial pressure is 3mmHg. Pulmonary arteryhypertension could not be assessed due to inadequate tricuspid regurgitation jet. Leftventricular diastolic function is normal. Left ventricular filling pressure isnormal. Ejection Fraction 2D Measurements Volumes EF(MOD-bp): 56.1 % IVSd: 0.61 cm LAV(MOD-bp)Indexed: 4D EF: 56.4 % LVIDd: 5.1 cm LVIDs: 3.5 cm 20.9 ml/m2 LVPWd: 0.49 cm RA A4Cs_phl: 12.2cm2 EDV (MOD-bp)Index: 65.3 LV mass(C)d: 87.7 grams ESV (MOD-bp)Index: 28.6 LV mass(C)dI: 52.9 grams/m2 3D ESV: 36.3 ml Ao root diam: 3.1 cm 3D EDV: 83.3 ml Ao root diam index: 1.9 3D EDV Index:50.2 asc Aorta Diam: 3.0 cm TAPSE_phl: 1.7 cm 3D ESV Index:21.9 Doppler LV V1 VTI: 20.4 cm MV E max miguel: 81.1 cm/sec MV A max miguel: 84.6 cm/sec MV E/A: 0.96 MV dec time: 0.15 sec Lat Peak E' Miguel: 11.4 cm/sec E/ e' (lat): 7.1 Med Peak E' Miguel: 9.0 cm/sec E/e' (med): 9.0 E/e' Average: 8.1 I WMSI = 1.00 % Normal = 100 SegmentsSize X - Cannot 2 - 4 - 1-2small Interpret 1 - Normal Hypokinetic 3 - Akinetic Dyskinetic 3-5moderate 5 - 6-14large Aneurysmal 15-16diffuse Betina Shahid MD ECHO ORDERABLES * CT Angiogram Coronary Arteries (11/14/2022 9:22 AM EST) Anatomical Region Laterality Modality Cardiac Computed Tomogra phy Impressions 11/14/2022 1:14 PM EST Coronary calcium score of 0, consistent with no detectable calcified atherosclerotic plaque burden. No stenosing soft plaque or other significant finding on coronary CT arteriogram. CAD RADS 0. Thank you for letting us participate in the care of this patient. ??If you are a health care provider and have any questions regarding this report, please contact the number below. ??For patients who have questions please contact the health care partner that requested your imaging first. ? Electronically signed by: Sussy Farley MD, [facility] ([phone]), at 11/14/2022 1:14 PM Narrative 11/14/2022 1:14 PM EST EXAMINATION: CT ANGIOGRAM CORONARY ARTERIES CLINICAL HISTORY: Chest pain/anginal equiv, ECGs and troponins normal 120 COMPARISON: None. TECHNIQUE: 3 mm thick axial contiguous sections through the heart were obtained via ECG-gated axial mode acquisition without intravenous contrast. After time bolus, 0.625 mm thick axial contiguous sections were obtained through the heart via ECG-gated helical acquisition during intravenous administration of 85 cc Omnipaque 350. Post-processing was performed on an independent computer workstation including curved multiplanar reformats, coronary calcium scoring, and 3D reconstructions. FINDINGS: Coronary calcium score: Left main: ??Agatston score: 0 Left anterior descending: ??Agatston score: 0 Left circumflex: ??Agatston score: 0 Right coronary: ??Agatston score: 0 TOTAL: ??Agatston score: 0 Atherosclerotic plaque burden, based on Agatston score: No detectable calcified atherosclerotic plaque. Percentile rank, based on age, race/ethnicity, and gender: N/A Reference: Luisa RL, Garcia H, Ana Maria R, et al. ??Distribution of coronary artery calcium by race, gender, and age: results from the Multi-Ethnic Study of Atherosclerosis (ANN). Circulation. 2006;113(1):30-37. Coronary arteries: Right dominant coronary circulation. Left main: Normal origin. No demonstrable plaque or stenosis. Left anterior descending: No demonstrable plaque or stenosis. Diagonal branches: No demonstrable plaque or stenosis. Left Circumflex: No demonstrable plaque or stenosis. Obtuse marginal branches: No demonstrable plaque or stenosis. Right coronary: Normal origin. No demonstrable plaque or stenosis. Posterior descending: No demonstrable plaque or stenosis. Posterolateral branch: No demonstrable plaque or stenosis. Cardiac chambers: No significant findings. Great vessels: No significant findings. Pulmonary parenchyma, airways, pleura: No significant findings. Upper abdomen: Postoperative suture lines. Skeletal Structures: No significant findings. Procedure Note Sussy Hanson MD - 11/14/2022 EXAMINATION: CT ANGIOGRAM CORONARY ARTERIES CLINICAL HISTORY: Chest pain/anginal equiv, ECGs and troponins normal 120 COMPARISON: None. TECHNIQUE: 3 mm thick axial contiguous sections through the heart wereobtained via ECG-gated axial mode acquisition without intravenous contrast. Aftertime bolus, 0.625 mm thick axial contiguous sections were obtained through theheart via ECG-gated helical acquisition during intravenous administration of 85cc Omnipaque 350. Post-processing was performed on an independent computer workstation including curved multiplanar reformats, coronary calciumscoring, and 3D reconstructions. FINDINGS: Coronary calcium score: Left main: Agatston score: 0 Left anterior descending: Agatston score: 0 Left circumflex: Agatston score: 0 Right coronary: Agatston score: 0 TOTAL: Agatston score: 0 Atherosclerotic plaque burden, based on Agatston score: No detectablecalcified atherosclerotic plaque. Percentile rank, based on age, race/ethnicity, and gender: N/A Reference: Luisa RL, Garcia H, Ana Maria R, et al. ??Distribution ofcoronary artery calcium by race, gender, and age: results from the Multi-EthnicStudy of Atherosclerosis (ANN). Circulation. 2006;113(1):30-37. Coronary arteries: Right dominant coronary circulation. Left main: Normal origin. No demonstrable plaque or stenosis. Left anterior descending: No demonstrable plaque or stenosis. Diagonal branches: No demonstrable plaque or stenosis. Left Circumflex: No demonstrable plaque or stenosis. Obtuse marginal branches: No demonstrable plaque or stenosis. Right coronary: Normal origin. No demonstrable plaque or stenosis. Posterior descending: No demonstrable plaque or stenosis. Posterolateral branch: No demonstrable plaque or stenosis. Cardiac chambers: No significant findings. Great vessels: No significant findings. Pulmonary parenchyma, airways, pleura: No significant findings. Upper abdomen: Postoperative suture lines. Skeletal Structures: No significant findings. IMPRESSION Coronary calcium score of 0, consistent with no detectable calcified atherosclerotic plaque burden. No stenosing soft plaque or other significant finding on coronary CT arteriogram. CAD RADS 0. Thank you for letting us participate in the care of this patient. If youare a health care provider and have any questions regarding this report,please contact the number below. For patients who have questions please contactthe health care partner that requested your imaging first. Electronically signed by: Sussy Farley MD, [facility] ([phone]), at 11/14/2022 1:14 PM Betina Shahid MD IMG CT ORDERABLES * TSH (10/22/2022 4:51 PM EST) Thyroid Stimulating Hormone 1.59 0.27 - 4.20 mcIU/mL [facility] Comment: Reference Interval (mcIU/mL): Females: ??First Trimester: 0.23-3.88 ??Second Trimester: 0.22-3.90 ??Third Trimester: 0.44-4.66 Blood 10/22/2022 4:51 PM EST 10/22/2022 4:58 PM EST Narrative Resulting Agency Comment Spec In Lab Betina Shahid MD CHEMISTRY ORDERABLES [facility] [place] [address] * Lipid Panel (Reflex Direct LDL) (10/22/2022 4:51 PM EST) Cholesterol, Total 189 mg/dL [facility] Comment: Lower Risk: <200 mg/dL Average Risk: 200-239 mg/dL Higher Risk: >zw=502 mg/dL Triglyceride 77 mg/dL [facility] Comment: Average Risk/Lower Risk: <150 mg/dL Borderline High Risk: 150-199 mg/dL High Risk: 200-499 mg/dL Very High Risk: >to=501 mg/dL HDL Cholesterol 75 mg/dL [facility] Comment: Males: ?? Higher Risk: <40 mg/dL Females: ?? Higher Risk: <50 mg/dL LDL Cholesterol 99 mg/dL [facility] Comment: Lowest Risk: <100 mg/dL Lower Risk: 100-129 mg/dL Borderline High Risk: 130-159 mg/dL High Risk: 160-189 mg/dL Very High Risk: >vt=433 mg/dL Cholesterol/HDL Ratio 2.5 ratio [facility] Lipid Interpretation See Note [facility] Comment: Lipid management should be guided by a patient? s ASCVD risk, goals and preferences. ACC/AHA Guidelines recommend high intensity statin if clinical ASCVD or LDL greater than or equal to 190 mg/dL. http://ActiveReplay.com/QGL-FBL-Xgqhbwmlr Adults aged 40-75 with LDL 70-189 mg/dL should have their 10 year ASCVD risk estimated with the ACC/AHA ASCVD risk commercial estimator http://tools.acc.org/HHJWE-Mlqv-Usduxuswf/ Statin should be discussed if risk greater [...] critical component of ASCVD risk reduction. Blood 10/22/2022 4:51 PM EST 10/22/2022 4:58 PM EST Narrative Resulting Agency Comment Spec In Lab Betina Shahid MD CHEMISTRY ORDERABLES [facility] [place] [address] * Lipoprotein A (10/22/2022 4:51 PM EST) Lipoprotein(A) (JANUARY) <7 <75 nmol/L [facility] Comment: ADDITIONAL INFORMATION Please notice that Lp(a) values are reported in molar units (nmol/L). ??These units are recommended by professional society guidelines and expert opinion statements. ??Measured results and risk thresholds are higher than those generated using mass units (mg/dL). Cardiovascular risk increases starting at 75 nmol/L. Lp(a) >=125 nmol/L is considered a risk enhancing factor by the [place] [employer]. This test has been modified from the traffic signal technician's instructions. Its performance characteristics were determined by [facility] in a manner consistent with CLIA requirements. This test has not been cleared or approved by the U.S. Food and Drug Administration. Test Performed by: [place] [address] Per Diem Interpreter: Didier Botello M.D. Ph.D.; CLIA# [id number] Blood 10/22/2022 4:51 PM EST 10/23/2022 8:19 AM EST Narrative Resulting Agency Comment Spec In Lab Betina Shahid MD LAB SEND OUT ORDERAB LES Performing Organization Address City/State/[facility] Co de Phone Number [facility] [place] [address] documented in this encounter Visit Diagnoses Diagnosis Paroxysmal SVT (supraventricular tachycardia) Paroxysmal supraventricular tachycardia Chest pressure Other chest pain Lipid screening Screening for lipoid disorders Chest pressure Other chest pain Paroxysmal SVT (supraventricular tachycardia) Paroxysmal supraventricular tachycardia documented in this encounter Care Teams Chef Teacher Relationship Specialty Start Date End Date Mike Goodman DNP [address] [place] [address] PCP - General Family Medicine 08/22/22 documented as of this encounter
--- OUTSIDE RECORDS SUMMARY | 2024-06-12 13:42 | XMS_ITS | Encounter Summary ---
Author Organization [facility] [address] Care Team Providers Care Slat Basket Maker Helper Name Role Phone Mike Goodman DNP Primary Care Provider [phone] Reason for Referral * Consultation (Routine) - Closed Specialty Diagnoses / Procedures Referred By Contac t Referred To Contact Cardiology Diagnoses Syncope, unspecified syncope type SYNCOPE. FHX CARDIAC ISSUES. HAS SEEN MAILING [facility] IN [place], [place] IN 2014. HAS RECURRENT SYNCOPAL EPISODES. 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 CURRENTLY WEARING A ZIO. *SCANNED DOCS Mike Goodman DNP [address] [place] [address] [facility] Card[facility] [address] [place] [phone] Referral ID Status Reason Start Date Expiration Date V isits Requested Visits Authorized [id number] Closed Consult, Test & Treat 10/14/2022 10/14/2023 1 1 Encounter Details Date Type Department Care Team (Late st Contact Info) Description 10/14/2022 Transcribe Orders eDH Incoming Referrals [phone] Mike Goodman DNP [address] [place], [place] [id number] Syncope, unspecified syncope type Social History Tobacco Use Types Packs/Day Years [...] PM EDT Hospital [place] [address] [place] [address] 07/09/2024 8:30 AM EDT Appointment XRay at [address] [address] [place] [address] 07/17/2024 8:00 AM EDT Procedure [place] [address] 08/26/2024 8:00 AM EST Office [place] [address] 08/27/2024 9:00 AM EST Clinical [place] [address] Scheduled Referrals Name Type Priority Associated Diagnoses Orde r Schedule Referral to Cardiology Outpatient Referral Routine Syncope, unspecified syncope type Ordered: 10/14/2022 documented as of this encounter Visit Diagnoses Diagnosis Syncope, unspecified syncope type documented in this encounter Care Teams Slat Basket Maker Helper Relationship Specialty Start Date End Date Mike Goodman DNP [address] [place] [address] PCP - General Family Medicine 08/22/22 documented as of this encounter
--- OUTSIDE RECORDS SUMMARY | 2024-06-12 13:42 | XMS_ITS | Encounter Summary ---
[place] [address] Care Team Providers Care Chemical Tester Name Role Phone Laura Ross LOUIE Primary Care Provider [phone] Encounter Details Date Type Department Care Team (Late st Contact Info) Description 06/25/2021 Telephone [place] [phone] Lawanda Prado Social History Tobacco Use Types Packs/Day Years [...] encounter Miscellaneous Notes * Telephone Encounter - Lawanda Prado - 06/25/2021 10:54 AM EDT Left message to see if patient is interested in scheduling a annual follow-up visit. I asked them to give us a call back to set up an appointment and let them know that I will be mailing them a letter in the mail. documented in this encounter Plan of Treatment Upcoming Encounters Date Type Department Care Team (Late st Contact Info) Description 06/15/2024 3:00 PM EDT Hospital [place] [phone] [place] [address] 07/09/2024 8:30 AM EDT Appointment XRay at [address] [address] Alena Pizarro [employer] [place] [address] 07/17/2024 8:00 AM EDT Procedure [place] [address] 08/26/2024 8:00 AM EST Office [place] [address] 08/27/2024 9:00 AM EST Clinical [place] [address] documented as of this encounter Visit Diagnoses Not on filedocumented in this encounter Care Teams Chemical Tester Relationship Specialty Start Date End Date Laura Ross APRN [address] [place] [id number] PCP - General Family Medicine 10/01/17 08/21/22 documented as of this encounter
--- OUTSIDE RECORDS SUMMARY | 2024-06-12 13:42 | XMS_ITS | Encounter Summary ---
Author Organization [facility] [place] [address] Care Team Providers Care Able Bodied Tankerman Name Role Phone Mike Goodman DNP Primary Care Provider Reason for Visit * (Routine) - Closed Specialty Diagnoses / Procedures Referred By Martha broussard Referred To Contact Radiology Diagnoses Mass of right breast, unspecified quadrant Procedures Request for 2nd read Mammo Mike Goodman DNP [address] [place] [address] Referral ID Status Reason Start Date Expiration Date Visits Re quested Visits Authorized [id number] Closed 12/13/2022 12/13/2023 1 1 Encounter Details Date Type Department Care Team (Late st Contact Info) Description 12/13/2022 9:15 AM EDT Ancillary Procedure Radiology [facility] at [facility] [place] [address] Mike Goodman DNP [address] [place], [place] [address] Mass of right breast, unspecified quadrant Social History Tobacco Use Types Packs/Day Years [...] PM EDT Hospital [place] [address] [place] [address] 07/09/2024 8:30 AM EDT Appointment XRay at [address] [address] [place] [address] 07/17/2024 8:00 AM EDT Procedure [place] [address] 08/26/2024 8:00 AM EST Office [place] [address] 08/27/2024 9:00 AM EST Clinical [place] [address] documented as of this encounter Procedures Procedure Name Priority Date/Time Associated Diagnosis Comments REQUEST FOR 2ND READ MAMMO Routine 12/13/2022 9:11 AM EDT Mass of right breast, unspecified quadrant documented in this encounter Results * Request for 2nd read Mammo (12/13/2022 9:11 AM EDT) Anatomical Region Laterality Modality SO Narrative 12/15/2022 3:01 PM EDT INTERPRETATION OF OUTSIDE BREAST IMAGING I have been asked to consult on this patient by Mike Melissa Dege because he/she believes a review of this study may change or alter the care of this patient. STUDIES FROM: [facility] [place] [facility], [place], [place] CLINICAL HISTORY: As per Outside report: Category 0 Right breast painful mass(es): This 47 year old patient feels 3 areas of lumps in the Right breast. Recommend right mammogram and ultrasound in 6 months to follow-up mammographically visible anterior nodule right breast. Status post negative Right breast biopsy a few years ago. CAT 0 Right breast painful mass, CAT 0, pt would like treatment at . Clinical history: New increasing mass Right breast, 2:00, outer, painful lumpy breast. . ?Bx, more imaging; Sending Institution [facility]; Date of exam [id number]; I believe a reinterpretation of this exam may alter care of Patient. Yes; Right breast painful mass, CAT 0, pt would like treatment at . ?? DATES and TYPE OF EXAM: Bilateral CC and MLO mammograms, right CC spot compression (skin markers were placed over the 2 areas of which patient feels right breast lumps; skin markers on spot CC only), left MLO spot compression. Complete Bilateral Breast ultrasound, including all 4 quadrants of both breasts, retroareolar regions, both axillary regions; additional targeted right breast ultrasound at site of clinical concern ( Ultrasound Labeled R0I Painful at 2:00). COMPARISONS: This is compared to prior imaging, including bilateral mammograms from [place], [place] ??02/17/2019, 10/01/2017, Right breast ultrasound 10/01/2017. BREAST DENSITY: There are scattered areas of fibroglandular density. FINDINGS: Right Mammogram: The right breast demonstrates a 0.5 cm nodule anterior, medial right breast, CC only, 2 cm from the nipple; no ultrasound correlate was identified. Outside recommendation: repeat right mammogram and ultrasound in 6 months for follow-up of this anterior nodule. Right breast ultrasound: Site of 3 palpable areas of concern right breast: Palpable area 1: 12:00, 5 cm from the nipple Palpable area 2: 2:00 8 cm from the nipple Palpable area 3: 2:00, medial aspect: No ultrasound findings in the first 2 areas where patient feels nodules; more superiorly, palpable finding which corresponds to prominent rib on ultrasound. CT or MRI scan of the chest wall for study of anterior right chest wall abnormality which is palpable anteriorly on the right side. Left mammogram: : Suggestion of nodular/ two small nodules superiorly, 6 cm from the nipple, MLO only; measuring 1.8 x 0.7 cm total measurement. Left breast ultrasound: No focal findings. DIAGNOSTIC SUMMARY IMPRESSION and RECOMMENDATION: RIGHT Lesion 1 - A 0.5 cm circumscribed mass in the anterior medial breast, CC only, 2 cm from the nipple; no sonographic correlate on outside ultrasound. Recommend additional mammographic imaging and ultrasound for further evaluation. RIGHT Lesion 2- Three (3) palpable areas of concern right breast; recommend placement of 3 skin markers, followed by right ML, CC, spot tangent views; additionally, repeat right breast ultrasound at three sites of clinical concern. LEFT Lesion 1: Nodular asymmetric density superior left breast, MLO only, 6 cm from the nipple; likely corresponds to asymmetry in the lateral breast. Recommend additional mammographic imaging and breast ultrasound at the discretion of the radiologist. Right: BI-RADS Category 0: Incomplete-Need Additional Imaging Evaluation Left: BI-RADS Category 0: Incomplete-Need Additional Imaging Evaluation * ??Regular screening mammograms starting between age 40 and 50 reduces the risk of from breast cancer. * ??All screening tests have both risks and benefits. These risks and benefits should be assessed for each individual patient through discussion with their provider to determine their preferred breast cancer screening schedule. * ??Women should report any breast changes to a health care provider right away. * ??Some women, because of their family history, a genetic tendency, or other factors, should be screened with annual breast MRI as well as with mammograms. (The number of women who fall into this category is very small). Patients and health care providers should discuss each patients history to decide if earlier screening and/or breast MRI are appropriate. * ??Screening should continue as long as a woman is in good health and is expected to live 10 years or longer. * ??Screening mammography may not detect 10-15% of breast cancers. Please note: The interpretation of the [facility] Breast Imaging Radiologist subspecialist may differ from the original radiologists interpretation. This is usually not due to a deficiency of the original interpreting radiologist, rather due to the greater skill level afforded by sub-specialization in the field and/or reasonable variations in interpretations. If you have a concern regarding the [facility] interpretation you may contact the [facility] Breast Vice Chairman Office at . Thank you for letting us participate in the care of this patient. ??If you are a health care provider and have any questions regarding this report, please contact the number below. ??For patients who have questions please contact the health sub acute care nurse that requested your imaging first. ? Electronically signed by: Maria Alejandra Aparicio MD, [facility] [place] ([phone]), at 12/15/2022 3:01 PM Procedure Note Maria Alejandra Aparicio MD - 12/15/2022 INTERPRETATION OF OUTSIDE BREAST IMAGING I have been asked to consult on this patient by Mike Melissa Degebecause he/she believes a review of this study may change or alter the care ofthis patient. STUDIES FROM: [place], [place] CLINICAL HISTORY: As per Outside report: Category 0 Right breast painful mass(es): This 47 year old patient feels3 areas of lumps in the Right breast. Recommend right mammogram andultrasound in 6 months to follow-up mammographically visible anterior nodule rightbreast. Status post negative Right breast biopsy a few years ago. CAT 0 Rightbreast painful mass, CAT 0, pt would like treatment at . Clinical history:New increasing mass Right breast, 2:00, outer, painful lumpy breast. . ?Bx,more imaging; Sending Institution [facility]; Date of exam [id number]; I believe a reinterpretation of this exam may alter care of Patient. Yes; Rightbreast painful mass, CAT 0, pt would like treatment at . DATES and TYPE OF EXAM: Bilateral CC and MLO mammograms, right CC spot compression (skin markers were placed over the 2 areas of which patientfeels right breast lumps; skin markers on spot CC only), left MLO spotcompression. Complete Bilateral Breast ultrasound, including all 4 quadrants of bothbreasts, retroareolar regions, both axillary regions; additional targeted rightbreast ultrasound at site of clinical concern ( Ultrasound Labeled R0I Painfulat 2:00). COMPARISONS: This is compared to prior imaging, including [facility]ammograms from [facility] [place], [place], [place] 02/17/2019, 10/01/2017, Rightbreast ultrasound 10/01/2017. BREAST DENSITY: There are scattered areas of fibroglandular density. FINDINGS: Right Mammogram: The right breast demonstrates a 0.5 cm nodule anterior,medial right breast, CC only, 2 cm from the nipple; no ultrasound correlate was identified. Outside recommendation: repeat right mammogram and ultrasoundin 6 months for follow-up of this anterior nodule. Right breast ultrasound: Site of 3 palpable areas of concern rightbreast: Palpable area 1: 12:00, 5 cm from the nipple Palpable area 2: 2:00 8 cm from the nipple Palpable area 3: 2:00, medial aspect: No ultrasound findings in the first 2 areas where patient feels nodules;more superiorly, palpable finding which corresponds to prominent rib onultrasound. CT or MRI scan of the chest wall for study of anterior right chest wall abnormality which is palpable anteriorly on the right side. Left mammogram: : Suggestion of nodular/ two small nodules superiorly, 6cm from the nipple, MLO only; measuring 1.8 x 0.7 cm total measurement. Leftbreast ultrasound: No focal findings. DIAGNOSTIC SUMMARY IMPRESSION and RECOMMENDATION: RIGHT Lesion 1 - A 0.5 cm circumscribed mass in the anterior medialbreast, CC only, 2 cm from the nipple; no sonographic correlate on outsideultrasound. Recommend additional mammographic imaging and ultrasound for furtherevaluation. RIGHT Lesion 2- Three (3) palpable areas of concern right breast;recommend placement of 3 skin markers, followed by right ML, CC, spot tangentviews; additionally, repeat right breast ultrasound at three sites of clinicalconcern. LEFT Lesion 1: Nodular asymmetric density superior left breast, MLO only,6 cm from the nipple; likely corresponds to asymmetry in the lateral breast. Recommend additional mammographic imaging and breast ultrasound at the discretion of the radiologist. Right: BI-RADS Category 0: Incomplete-Need Additional Imaging Evaluation Left: BI-RADS Category 0: Incomplete-Need Additional Imaging Evaluation * Regular screening mammograms starting between age 40 and 50 reduces therisk of from breast cancer. * All screening tests have both risks and benefits. These risks andbenefits should be assessed for each individual patient through discussion withtheir provider to determine their preferred breast cancer screening schedule. * Women should report any breast changes to a health care provider rightaway. * Some women, because of their family history, a genetic tendency, orother factors, should be screened with annual breast MRI as well as withmammograms. (The number of women who fall into this category is very small). Patientsand health care providers should discuss each patients history to decide ifearlier screening and/or breast MRI are appropriate. * Screening should continue as long as a woman is in good health and is expected to live 10 years or longer. * Screening mammography may not detect 10-15% of breast cancers. Please note: The interpretation of the [facility] BreastImaging Radiologist subspecialist may differ from the original radiologists interpretation. This is usually not due to a deficiency of the original interpreting radiologist, rather due to the greater skill level affordedby sub-specialization in the field and/or reasonable variations ininterpretations. If you have a concern regarding the [facility] interpretation you may contact [facility] at . Thank you for letting us participate in the care of this patient. If youare a health care provider and have any questions regarding this report,please contact the number below. For patients who have questions please contactthe health sub acute care nurse that requested your imaging first. Electronically signed by: Maria Alejandra Aparicio MD, [facility] ([phone]), at 12/15/2022 3:01 PM Mike Goodman DNP IM OUTSIDE INTERPR ETATION ORDERABLES documented in this encounter Visit Diagnoses Diagnosis Mass of right breast, unspecified quadrant documented in this encounter Care Teams Able Bodied Tankerman Relationship Specialty Start Date End Date Mike Goodman DNP [address] [place] [address] PCP - General Family Medicine 08/22/22 documented as of this encounter
--- OUTSIDE RECORDS SUMMARY | 2024-06-12 13:42 | XMS_ITS | Encounter Summary ---
Author Organization [facility] [place] [address] Care Team Providers Care Executive Staff Assistant Name Role Phone Mike Goodman DNP Primary Care Provider Encounter Details Date Type Department Care Team (Latest Contact Info) Description 12/20/2022 Travel Social History Tobacco Use Types Packs/Day [...] PM EDT Hospital [place] [address] [place] [address] 07/09/2024 8:30 AM EDT Appointment XRay at [address] [phone] Alena [place] [address] 07/17/2024 8:00 AM EDT Procedure [place] [address] 08/26/2024 8:00 AM EST Office [place] [address] 08/27/2024 9:00 AM EST Clinical [place] [address] documented as of this encounter Visit Diagnoses Not on filedocumented in this encounter Care Teams Executive Staff Assistant Relationship Specialty Start Date End Date Mike Goodman DNP [address] [place] [address] PCP - General Family Medicine 08/22/22 documented as of this encounter
--- OUTSIDE RECORDS SUMMARY | 2024-06-12 13:42 | XMS_ITS | Encounter Summary ---
[place] [address] Care Team Providers Care Tube Splicer Name Role Phone Mike Goodman KYLE Primary Care Provider Reason for Referral * Diagnostic Test (Routine) - Closed Specialty Diagnoses / Procedures Referred By Contac t Referred To Contact Radiology Diagnoses Colicky epigastric pain Procedures MRI Cholangiopancreatography wwo Contrast Dinesh Lyle MD [facility] [place] [address] [place] [address] Referral ID Status Reason Start Date Expiration Date V isits Requested Visits Authorized [id number] Closed Specialty Service Requested 04/23/2023 10/24/2024 1 1 Reason for Visit * Diagnostic Test (Routine) - Closed Specialty Diagnoses / Procedures Referred By Contac t Referred To Contact Radiology Diagnoses Colicky epigastric pain Procedures MRI Cholangiopancreatography wwo Contrast Dinesh Lyle MD [facility] [place] [address] [place] [address] Referral ID Status Reason Start Date Expiration Date V isits Requested Visits Authorized [id number] Closed Specialty Service Requested 04/23/2023 10/24/2024 1 1 Encounter Details Date Type Department Care Team (Latest Contact Info) Description 05/15/2023 7:07 PM EDT - 05/15/2023 11:59 PM EDT [place] [address] Dinesh Lyle MD [facility] [place] [address] Colicky epigastric pain Discharge Disposition: Home Social History Tobacco Use [...] muscle as needed (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 01/11/2011 ferrous sulfate (FeroSul) 325 mg (65 mg iron) tablet Take 325 mg by mouth 2 times daily. 03/11/2023 12/05/2023 OMEPRAZOLE ORAL Take 40 mg by mouth [...] PM EDT Hospital [place] [phone] Alena Pizarro APRN [facility] [place] [address] 07/09/2024 8:30 AM EDT Appointment XRay at [address] [phone] [place] [address] 07/17/2024 8:00 AM EDT Procedure [place] [address] 08/26/2024 8:00 AM EST Office Visit [place] [address] 08/27/2024 9:00 AM EST Clinical Support [place] [address] documented as of this encounter Procedures Procedure Name Priority Date/Time Associated Diagnosis Comments MRI CHOLANGIOPANCREATOGRAPHY WWO CONTRAST Routine 05/15/2023 8:43 PM EDT Colicky epigastric pain documented in this encounter Results * MRI Cholangiopancreatography wwo [...] have questions please contact the health home care scheduler that requested your imaging first. ? Electronically signed by: Bharat Cabello MD, [facility] ([phone]), at 05/16/2023 11:17 AM Narrative 05/16/2023 11:17 AM EDT EXAMINATION: MRI [...] who have questions please contactthe health home care scheduler that requested your imaging first. Electronically signed by: Bharat Cabello MD, [facility]([phone]), at 05/16/2023 11:17 AM Dinesh Wray MD IMG MRI ORDERABL ES documented in this encounter Visit Diagnoses Diagnosis Colicky epigastric pain Abdominal pain, epigastric documented in this encounter Administered Medications Inactive Administered Medications - up to 3 most recent administrations Medication Order MAR Action Action Date Dose Rate Site gadoterate meglumine (Dotarem) (0.5 mMol/mL) injection solution 0-100 mL 0-100 mL, Intravenous, ONCE PRN, 1 dose, Starting on Germania 05/15/23 at 2040, Until Germania 05/15/23 at 2034, Per Protocol, Radiology Contrast, Routine Given 05/15/2023 8:35 PM EDT 14 mLs documented in this encounter Care Teams Tube Splicer Relationship Specialty Start Date End Date Mike Goodman DNP [address] [place] [address] PCP - General Family Medicine 08/22/22 documented as of this encounter
--- OUTSIDE RECORDS SUMMARY | 2024-06-12 13:42 | XMS_ITS | Encounter Summary ---
Author Organization [facility] Address [facility] [place] [address] Care Team Providers Care Warper Creeler Name Role Phone Mike Goodman DNP Primary Care Provider Encounter Details Date Type Department Care Team (Latest Contact Info) Description 12/20/2022 8:14 AM EDT - 12/20/2022 11:59 PM EDT Hospital En[place] [address] Maria Alejandra Aparicio MD [facility] [place] [address] Abnormal finding on breast imaging Discharge Disposition: [...] PM EDT Hospital [place] [address] [place] [address] 07/09/2024 8:30 AM EDT Appointment XRay at [address] [phone] [place] [address] 07/17/2024 8:00 AM EDT Procedure visit [place] [address] 08/26/2024 8:00 AM EST Office [place] [address] 08/27/2024 9:00 AM EST Clinical [place] [address] documented as of this encounter Procedures Procedure Name Priority Date/Time Associated Diagnosis Comments MAMMO DIAGNOSTIC CAD AND DUTCH BILATERAL Routine 12/20/2022 9:28 AM EDT Abnormal finding on breast imaging documented in this encounter Results * Mammo Diagnostic CAD and Dutch Bilateral [...] who have questions please contact the health long term care administrator that requested your imaging first. ? Narrative [...] breast documented in this encounter Care Teams Warper Creeler Relationship Specialty Start Date End Date Mike Goodman DNP [address] [facility] [place] [address] PCP - General Family Medicine 08/22/22 documented as of this encounter
--- OUTSIDE RECORDS SUMMARY | 2024-06-12 13:42 | XMS_ITS | Encounter Summary ---
[place] [address] Care Team Providers Care Montessori Program Director Name Role Phone Mike Goodman DNP Primary Care Provider +1- [phone] Encounter Details Date Type Department Care Team (Late st Contact Info) Description 11/20/2022 Telephone Cardiology at [address] [address] Rossi Mcgovern, RN Social History Tobacco Use Types Packs/Day Years [...] encounter Miscellaneous Notes * Telephone Encounter - Rossi Mcgovern RN - 11/20/2022 4:37 PM EST RTC to patient who reports her GI provider would like her to have an upper endoscopy and a colonoscopy, but is asking for cardiac clearance to have these procedures. Patient states she will call backwith the full name and contact information of the provider. Rossi Mcgovern RN [facility] [address] documented in this encounter Plan of Treatment Upcoming Encounters Date Type Department Care Team (Late st Contact Info) Description 06/15/2024 3:00 PM EDT Hospital [place] [address] [place] [address] 07/09/2024 8:30 AM EDT Appointment XRay at [address] [phone] [place] [address] 07/17/2024 8:00 AM EDT Procedure [place] [address] 08/26/2024 8:00 AM EST Office [place] [address] 08/27/2024 9:00 AM EST Clinical [place] [address] documented as of this encounter Visit Diagnoses Not on filedocumented in this encounter Care Teams Montessori Program Director Relationship Specialty Start Date End Date Mike Goodman DNP [address] [place] [address] PCP - General Family Medicine 08/22/22 documented as of this encounter
--- OUTSIDE RECORDS SUMMARY | 2024-06-12 13:42 | XMS_ITS | Encounter Summary ---
Author Organization [facility] [place] [address] Care Team Providers Care Processing Analyst Name Role Phone Mike Goodman DNP Primary Care Provider +1- [phone] Encounter Details Date Type Department Care Team (Latest Contact Info) Description 04/28/2023 Travel Social History Tobacco Use Types Packs/Day [...] PM EDT Hospital [place] [address] [place] [address] 07/09/2024 8:30 AM EDT Appointment XRay at [address] [phone] Alena [place] [address] 07/17/2024 8:00 AM EDT Procedure visit [place] [address] 08/26/2024 8:00 AM EST Office [place] [address] 08/27/2024 9:00 AM EST Clinical [place] [address] documented as of this encounter Visit Diagnoses Not on filedocumented in this encounter Care Teams Processing Analyst Relationship Specialty Start Date End Date Mike Goodman DNP [address] [place] [address] PCP - General Family Medicine 08/22/22 documented as of this encounter
--- OUTSIDE RECORDS SUMMARY | 2024-06-12 13:42 | XMS_ITS | Encounter Summary ---
Author Organization [place] [address] Care Team Providers Care Broom Builder Name Role Phone Mike Goodman DNP Primary Care Provider Encounter Details Date Type Department Care Team (Latest Contact Info) Description 01/02/2023 Travel Social History Tobacco Use Types Packs/Day [...] PM EDT Hospital [place] [address] [place] [address] 07/09/2024 8:30 AM EDT Appointment XRay at [address] [phone] Alena Pizarro [place] [address] 07/17/2024 8:00 AM EDT Procedure visit [place] [address] 08/26/2024 8:00 AM EST Office Visit [place] [address] 08/27/2024 9:00 AM EST Clinical Support [place] [address] documented as of this encounter Visit Diagnoses Not on filedocumented in this encounter Care Teams Broom Builder Relationship Specialty Start Date End Date Mike Goodman DNP [address] [place] [address] PCP - General Family Medicine 08/22/22 documented as of this encounter
--- OUTSIDE RECORDS SUMMARY | 2024-06-12 13:42 | XMS_ITS | Encounter Summary ---
[place] [address] Care Team Providers Care Ux Developer Designer Name Role Phone Mike Goodman KYLE Primary Care Provider Reason for Referral * Diagnostic Test (Routine) - Closed Specialty Diagnoses / Procedures Referred By Yayaac t Referred To Contact Radiology Diagnoses Chest pressure Procedures CT Angiogram Coronary Arteries King Haro MD [facility] [address] [facility] [place] [address] Referral ID Status Reason Start Date Expiration Date V isits Requested Visits Authorized [id number] Closed Specialty Service Requested 10/22/2022 04/21/2024 1 1 Reason for Visit * Diagnostic Test (Routine) - Closed Specialty Diagnoses / Procedures Referred By Contjoe t Referred To Contact Radiology Diagnoses Chest pressure Procedures CT Angiogram Coronary Arteries King Haro MD [facility] [address] [facility] [place] [address] Referral ID Status Reason Start Date Expiration Date V isits Requested Visits Authorized [id number] Closed Specialty Service Requested 10/22/2022 04/21/2024 1 1 Encounter Details Date Type Department Care Team (Latest Contact Info) Description 11/14/2022 8:45 AM EST - 11/14/2022 11:59 PM EST Hospital [place] [address] King Haro MD [facility] [place] [address] Chest pressure Discharge Disposition: Home Social History Tobacco Use [...] PM EDT Hospital [place] [address] Alena Pizarro APRN [facility] [address] 07/09/2024 8:30 AM EDT Appointment XRay at [address] [phone] Alena Pizarro APRN [facility] [address] 07/17/2024 8:00 AM EDT Procedure [place] [address] 08/26/2024 8:00 AM EST Office Visit [place] [address] 08/27/2024 9:00 AM EST Clinical Support [place] [address] documented as of this encounter Procedures Procedure Name Priority Date/Time Associated Diagnosis Comments CT ANGIOGRAM CORONARY ARTERIES Routine 11/14/2022 9:22 AM EST Chest pressure documented in this encounter Results * CT Angiogram Coronary Arteries (11/14/2022 9:22 [...] who have questions please contact the health children's zoo caretaker that requested your imaging first. ? Narrative 11/14/2022 1:14 PM EST EXAMINATION: CT [...] race/ethnicity, and gender: N/A Reference: Luisa RL, Jose H, Ana Maria R, et al. ??Distribution [...] race/ethnicity, and gender: N/A Reference: Luisa RL, Jose H, Ana Maria R, et al. ??Distribution [...] patients who have questions please contactthe health children's zoo caretaker that requested your imaging first. King Haro MD IMG CT ORDERABLES documented in this encounter Visit Diagnoses Diagnosis Chest pressure Other chest pain documented in this encounter Administered Medications Inactive Administered Medications - up to 3 most recent administrations Medication Order MAR Action Action Date Dose Rate Site iohexoL (Omnipaque) (350 mg/mL) solution 0-200 mL 0-200 mL, Intravenous, ONCE PRN, 1 dose, Starting on Germania 11/14/22 at 0923, Until Germania 11/14/22 at 0923, Per Protocol, Warning Vesicant/Irritant Medication , Radiology Contrast, Routine Given 11/14/2022 9:23 AM EST 85 mLs documented in this encounter Care Teams Ux Developer Designer Relationship Specialty Start Date End Date Mike Goodman DNP [address] [place] [address] PCP - General Family Medicine 08/22/22 documented as of this encounter
--- OUTSIDE RECORDS SUMMARY | 2024-06-12 13:42 | XMS_ITS | Encounter Summary ---
Author Organization [facility] [place] [address] Care Team Providers Care Livestock Breeder Name Role Phone Mike Goodman DNP Primary Care Provider +1- [phone] Encounter Details Date Type Department Care Team (Latest Contact Info) Description 04/23/2023 Travel Social History Tobacco Use Types Packs/Day [...] PM EDT Hospital [place] [address] [place] [address] 07/09/2024 8:30 AM EDT Appointment XRay at [address] [phone] Alena Pizarro [place] [address] 07/17/2024 8:00 AM EDT Procedure [place] [address] 08/26/2024 8:00 AM EST Office [place] [address] 08/27/2024 9:00 AM EST Clinical [place] [address] documented as of this encounter Visit Diagnoses Not on filedocumented in this encounter Care Teams Livestock Breeder Relationship Specialty Start Date End Date Mike Goodman DNP [address] [place] [address] PCP - General Family Medicine 08/22/22 documented as of this encounter
--- OUTSIDE RECORDS SUMMARY | 2024-06-12 13:42 | XMS_ITS | Encounter Summary ---
Author Organization [facility] [place] [address] Care Team Providers Care C.O.D. Audit Clerk Name Role Phone Mike Goodman DNP Primary Care Provider [phone] Reason for Visit * Diagnostic Test (Routine) - Closed Specialty Diagnoses / Procedures Referred By Martha broussard Referred To Contact Gastroenterology Diagnoses Heartburn HREM - regurgitation see also ph imp Procedures High Resolution Esophageal Manometry PRG ESOPHAGEAL MOTILITY STUDY PRG GERD TST W NASAL IMPEDENCE ELECTROD Dinesh Lyle MD [facility] [place] [address] [facility] [place] [address] [place] [address] Referral ID Status Reason Start Date Expiration Date V isits Requested Visits Authorized [id number] Closed Test Only 04/23/2023 04/22/2024 1 1 Encounter Details Date Type Department Care Team (Late st Contact Info) Description 04/29/2023 10:00 AM EDT Office Visit [place] [address] Heartburn Social History Tobacco Use Types Packs/Day Years [...] as of this encounter Progress Notes * Arely Mcnamara RN - 04/29/2023 10:00 AM EDT A description of the esophageal manometry procedure was provided to the patient. All questions wereanswered and the patient verbalized understanding. The HREM catheter was placed via the left naris without difficulty. The esophageal manometry procedure was performed and the catheter was removed. The patient tolerated the procedure well. Prior to placement of the impedance catheter, a description of the procedure was provided to patient. All questions were answered and the patient verbalized understanding. Written instructions were given to the patient as well. At 1040 the impedance catheter was placed in the left naris without difficulty. It was secured at 35cm with tape. This study is being performed on Omeprazole 20mgs QID suppressants, which was confirmed by the patient. * Dennis Caceres MD - 04/29/2023 10:00 AM EDT Catheter-based pH/impedance procedure report Patient: Mora Bolanos Address: [address] [place] [address] [place] [id number] : 1975 Referring provider: Dinesh Lyle I Date of service: 05/05/2023 Indication: Heartburn Procedure: The catheter was placed transnasally after topical anesthetic (1cc of 4% aerosol lidocaine and 1cc of 2% viscous lidocaine), with the esophageal pH sensor located 32cm from the nares, 5 cm above the manometrically identified lower esophageal sphincter. A gastric pH sensor was located 10 cm distal to the top of the lower esophageal sphincter. The patient was instructed to keep a diary of symptoms,and returned the next day for removal of the probe. Testing performed ON omeprazole 20 mg QID acid-suppressive therapy. Analysis Duration Total (HH:MM): 22:53 Analysis Duration Upright (HH:MM): 14:28 Analysis Duration Supine (HH:MM): 08:25 Acid exposure time (AET): Total distal esophageal acid exposure time: 2 % of testing period Upright distal esophageal acid exposure time: 3.2 % of testing period Supine distal esophageal acid exposure time: 0 % of testing period DeMeester Score: 8.1 (normal: <14.7) Normal values for acid exposure time (AET) defined as the % of time with a pH <4 Conclusive evidence for pathologic reflux: AET >7.0% Borderline or inconclusive evidence for pathologic reflux: AET 4.0% to 7.0% Evidence against pathologic reflux: AET <4.0% Reflux symptom association (RSA): Symptom Index (SI) Symptom (# of occurrences) Acid Weak acid Nonacid All reflux Symptom (9) 33.3% 0% 0% 33.3% Symptom Association Probability (SAP) Symptom (# of occurrences) Acid Weak acid Nonacid All reflux Symptom 98.3% 0% 0% 94.9% Interpretation of reflux symptom association (RSA) Positive association: Symptom Associated Probability [SAP] > 95% AND Symptom Index [SI] > 50% No convincing association: Symptom Associated Probability [SAP] > 95% OR Symptom Index [SI] >50% No evidence of association: Symptom Associated Probability [SAP] < 95% AND Symptom Index [SI] < 50% Number of reflux events by impedance: 34 total (normal < 80) and 11 acidic (normal < 80) and 23 weakly acidic (normal < 80) Impression based on the Dumont classification: Evidence against breakthrough acid reflux tested ON omeprazole 20mg QID medication. No convincing association between reflux and recorded symptoms of symptom. No evidence of elevated reflux burden measured by impedance. References: 1) Modern diagnosis of GERD: the Dumont Consensus. Gut. 2018 Mar; 67(7): 8397-2243. 2) Validation of the Dumont classification for GORD diagnosis: acid exposure time assessed by prolonged wireless pH monitoring in healthy controls and patients with erosive oesophagitis. Gut. 2020. doi10.1136/rvdojx-[id number]. Dennis Caceres MD, FRCPC Section of Gastroenterology and Hepatology [facility] [place] [address] V: [phone] F: [phone] CC/EC: Mike Goodman, [facility] [address] [place] [address] * Dennis Caceres MD - 04/29/2023 10:00 AM EDT Images from the original note were not included. HIGH-RESOLUTION ESOPHAGEAL MANOMETRY PROCEDURE NOTE Patient: Mora Bolanos Address: [address] [place] [address] [place] [id number] : 1975 Date of service: 04/29/2023 Indication: Heartburn Procedure: The patient arrived after an overnight fast. After verbal consent, a Kirsten motility catheter with 36 circumferential sensors on 1 cm spacing with impedance sensors was inserted transnasally after application of topical anesthesia to the nasal passage. The catheter was positioned so that at least 2distal sensors were in the stomach and 2 proximal sensors were located above the UES. A 3-5 minute acclimation period was provided followed by 10 wet swallows of 5 cc of water while supine. Normal values while supine: Upper esophageal sphincter residual pressure: < 12 mmHg Upper esophageal sphincter relaxation duration: > 480 msec Distal contractile integral (DCI): > 450 and < 8,000 mmHg x cm x s Distal latency time: > 4.5 sec Integrated EGJ relaxation pressure (IRP): < 15 mmHg Normal EGJ resting pressure (respiratory mean): 15-34 mmHg Findings: - Upper Esophageal Sphincter: normal mean residual pressure and relaxation duration - Body: 10% of swallows failed. 0% of swallows had premature contractions with shortened distal latency time. The remaining 90% of swallows were peristaltic, includin% of swallows with hypercontractility, 10% of swallows with weak peristalsis, and 40% of swallows with large breaks (>5 cm) in the 20mmHg isocontour line. - Esophagogastric Junction: Midpoint located 39 cm from the nares, and proximal extent located at 37 cm. 1cm hiatal hernia present. Normal resting pressure (mean 32 mmHg) and normal IRP in 100% of swallows (median 5.9 mmHg). - Bolus transit: Liquid boluses cleared in 80% of swallows. - Multiple rapid swallows: Peristaltic reserve: intact (ratio of post-multiple rapid swallow DCI to median DCI on 10 supine swallows is >=1.0) Deglutitive inhibition: normal deglutitive inhibition (DCI <100 mmHg*s*cm) during the maneuver Integrated relaxation pressure: 0 mmHg (normal <12 mmHg) - Rapid drink challenge: Esophageal body contractility: normal deglutitive inhibition (DCI <100 mmHg*s*cm) during the maneuver Integrated relaxation pressure: 0 mmHg (normal <12 mmHg) Canopy Inspector swallow: Impressions based on Boulder Classification v4.0: No evidence of a clinically significant disorder of peristalsis or EGJ outflow obstruction. *These findings assume that mechanical obstruction has been ruled out. Dennis Caceres MD, FRCPC Section of Gastroenterology and Hepatology [facility] [place] [address] V: [phone] F: [phone] CC/EC: Mike Goodman, [facility] [address] [facility] [address] documented in this encounter Plan of Treatment Upcoming Encounters Date Type Department Care Team (Late st Contact Info) Description 06/15/2024 3:00 PM EDT Hospital [place] [address] [place] [address] 07/09/2024 8:30 AM EDT Appointment XRay at [address] [address] [place] [address] 07/17/2024 8:00 AM EDT Procedure [place] [address] 08/26/2024 8:00 AM EST Office [place] [address] 08/27/2024 9:00 AM EST Clinical [place] [address] documented as of this encounter Visit Diagnoses Diagnosis Heartburn documented in this encounter Care Teams C.O.D. Audit Clerk Relationship Specialty Start Date End Date Mike Goodman DNP [address] [place] [address] PCP - General Family Medicine 08/22/22 documented as of this encounter
--- OUTSIDE RECORDS SUMMARY | 2024-06-12 13:42 | XMS_ITS | Encounter Summary ---
[place] [address] Care Team Providers Care Liquor Runner Name Role Phone Mike Goodman DNP Primary Care Provider Encounter Details Date Type Department Care Team (Late st Contact Info) Description 04/25/2023 Telephone [place] [address] Michael Sorensen Social History Tobacco Use Types [...] * Telephone Encounter - Michael Sorensen - 04/25/2023 8:43 AM EDT Inbound/Outbound: Outbound Spoke to Patient/Left Message: Left message Notes: Outbound call to patient to schedule motility lab testing from referral. Left message askingfor callback to schedule. Return calls can be handled by: Motility Lab Staff Occupational Therapist documented in this encounter Plan of Treatment Upcoming Encounters Date Type Department Care Team (Late st Contact Info) Description 06/15/2024 3:00 PM EDT Hospital [place] [address] [place] [address] 07/09/2024 8:30 AM EDT Appointment XRay at [address] [address] [place] [address] 07/17/2024 8:00 AM EDT Procedure visit [place] [address] 08/26/2024 8:00 AM EST Office Visit [place] [address] 08/27/2024 9:00 AM EST Clinical Support [place] [address] documented as of this encounter Visit Diagnoses Not on filedocumented in this encounter Care Teams Liquor Runner Relationship Specialty Start Date End Date Mike Goodman DNP [address] [place] [address] PCP - General Family Medicine 08/22/22 documented as of this encounter
--- OUTSIDE RECORDS SUMMARY | 2024-06-12 13:42 | XMS_ITS | Encounter Summary ---
[place] [address] Care Team Providers Care Food Service Helper Name Role Phone Mike Goodman DNP Primary Care Provider [phone] Reason for Referral * Consultation (Routine) - Closed Specialty Diagnoses / Procedures Referred By Martha broussard Referred To Contact Breast Clinic / Breast Center Diagnoses Mastodynia Mass of right breast, unspecified quadrant Mike Goodman DNP [address] [place] [address] [facility] [address] [place] [address] Referral ID Status Reason Start Date Expiration Date V isits Requested Visits Authorized [id number] Closed Consult, Test & Treat PCP Updated and/or Approved 06/04/2023 06/03/2024 6 6 Encounter Details Date Type Department Care Team (Late st Contact Info) Description 06/04/2023 Transcribe Orders eDH Incoming Referrals [phone] Mike Goodman DNP [address] [place], [place] [address] Mastodynia; Mass of right breast, unspecified quadrant Social [...] PM EDT Hospital Encounter [place] [address] [place] [address] 07/09/2024 8:30 AM EDT Appointment XRay at [address] [address] [place] [address] 07/17/2024 8:00 AM EDT Procedure visit [place] [address] 08/26/2024 8:00 AM EST Office Visit [place] [address] 08/27/2024 9:00 AM EST Clinical Support [place] [address] Scheduled Referrals Name Type Priority Associated Diagnoses Order Schedule Referral to Comprehensive Breast Program Outpatient Referral Routine Mastodynia Mass of right breast, unspecified quadrant Ordered: 06/04/2023 documented as of this encounter Visit Diagnoses Diagnosis Mastodynia Mass of right breast, unspecified quadrant documented in this encounter Care Teams Food Service Helper Relationship Specialty Start Date End Date Mike Goodman DNP [address] [address] PCP - General Family Medicine 08/22/22 documented as of this encounter
--- OUTSIDE RECORDS SUMMARY | 2024-06-12 13:42 | XMS_ITS | Encounter Summary ---
Author Organization [facility] [place] [address] Care Team Providers Care Welt Wheeler Name Role Phone Mike Goodman KYLE Primary Care Provider [phone] Reason for Referral * Diagnostic Test (Routine) - Closed Specialty Diagnoses / Procedures Referred By Contac t Referred To Contact Cardiology Diagnoses Paroxysmal SVT (supraventricular tachycardia) Procedures Echocardiogram Transthoracic King Shahid MD [facility] [place] [address] [facility] [place] [address] Referral ID Status Reason Start Date Expiration Date V isits Requested Visits Authorized [id number] Closed Specialty Service Requested 10/22/2022 10/22/2023 1 1 Reason for Visit * Diagnostic Test (Routine) - Closed Specialty Diagnoses / Procedures Referred By Contac t Referred To Contact Cardiology Diagnoses Paroxysmal SVT (supraventricular tachycardia) Procedures Echocardiogram Transthoracic King Shahid MD [facility] [place] [address] [facility] [place] [address] Referral ID Status Reason Start Date Expiration Date V isits Requested Visits Authorized [id number] Closed Specialty Service Requested 10/22/2022 10/22/2023 1 1 Encounter Details Date Type Department Care Team (Latest Contact Info) Description 01/02/2023 2:31 PM EDT - 01/02/2023 11:59 PM EDT Hospital Encounter Non-[place] [address] King Shahid MD [facility] [place] [address] Paroxysmal SVT (supraventricular tachycardia) Discharge Disposition: Home Social History Tobacco Use [...] Sign Reading Time Taken Comments Blood Pressure 113/66 01/02/2023 4:08 PM EDT Pulse - - Temperature - - Respiratory Rate - - Oxygen Saturation - - Inhaled Oxygen Concentration - - Weight - - Height - - Body Mass Index - - documented in this encounter Medications at Time [...] PM EDT Hospital [place] [address] Alena Pizar[place] [address] 07/09/2024 8:30 AM EDT Appointment XRay at [address] [address] [place] [address] 07/17/2024 8:00 AM EDT Procedure visit [place] [address] 08/26/2024 8:00 AM EST Office [place] [address] 08/27/2024 9:00 AM EST Clinical [place] [address] documented as of this encounter Procedures Procedure Name Priority Date/Time Associated Diagnosis Comments ECHO COMPLETE Routine 01/02/2023 4:08 PM EDT Paroxysmal SVT (supraventricular tachycardia) documented in this encounter Results * ECHO COMPLETE (01/02/2023 4:08 PM EDT) Pathologist [facility] EF 56 HEART[facility] SYSTEM Anatomical Region Laterality Modality Cardiac Other 01/02/2023 3:02 PM EDT Narrative 01/02/2023 4:17 PM EDT ? Echocardiogram Report Name: MORA BOLANOS A ? Study Date: 01/02/2023 03:02 PMBP: 113/66 mmHg ? Patient Location: 4A : 1975 ? Height: 156 cm ? Account: [id number] Age: 47 yrs ? Weight: 66 kg Gender: Female ?BSA: 1.7 m2 Ordering Physician: KING SHAHID Referring Physician: KING SHAHID Performed By: Cheryl Torres Reason For Study: Paroxysmal SVT (supraventricular tachycardia) Exam Location: [facility]. Interpretation Summary This was essentially a normal study. Please see below for details. Procedure Complete-[id number]. Satisfactory quality. There is normal sinus rhythm. [...] ?large Aneurysmal ?15-16 ?? diffuse Procedure Note King Shahid MD - 01/02/2023 Echocardiogram Report Name: MORA BOLANOS Study Date: 303:02 PMBP: 113/66 mmHg Patient Location: : 1975 Height: 156 cm Account: [id number] Age: 47 yrs Weight: 66 kg Gender: Female BSA: 1.7 m2 Ordering Physician: KING SHAHID Referring Physician: KING SHAHID Performed By: Cheryl Torres Reason For Study: Paroxysmal SVT (supraventricular tachycardia) Exam Location: [facility]. Interpretation Summary This was essentially a normal study. Please see below for details. Procedure Complete-[id number]. Satisfactory quality. There is normal sinus rhythm.Ventricular [...] Dyskinetic 3-5moderate 5 - 6-14large Aneurysmal 15-16diffuse King Shahid MD ECHO ORDERABLES documented in this encounter Visit Diagnoses Diagnosis Paroxysmal SVT (supraventricular tachycardia) Paroxysmal supraventricular tachycardia documented in this encounter Care Teams Welt Wheeler Relationship Specialty Start Date End Date Mike Goodman DNP [address] [place] [address] PCP - General Family Medicine 08/22/22 documented as of this encounter
--- OUTSIDE RECORDS SUMMARY | 2024-06-12 13:42 | XMS_ITS | Encounter Summary ---
Author Organization [facility] [place] [address] Care Team Providers Care Endo Tech Name Role Phone Mike Goodman DNP Primary Care Provider [phone]- [phone] Encounter Details Date Type Department Care Team (Latest Contact Info) Description 01/23/2023 Travel Social History Tobacco Use Types Packs/Day [...] PM EDT Hospital [place] [address] [place] [address] 07/09/2024 8:30 AM EDT Appointment XRay at [address] [phone] Alena Pizarro [employer] [place] [address] 07/17/2024 8:00 AM EDT Procedure [place] [address] 08/26/2024 8:00 AM EST Office Visit [place] [address] 08/27/2024 9:00 AM EST Clinical Support [place] [address] documented as of this encounter Visit Diagnoses Not on filedocumented in this encounter Care Teams Endo Tech Relationship Specialty Start Date End Date Mike Goodman DNP [address] [place] [address] PCP - General Family Medicine 08/22/22 documented as of this encounter
--- OUTSIDE RECORDS SUMMARY | 2024-06-12 13:42 | XMS_ITS | Encounter Summary ---
Author Organization [facility] [place] [address] Care Team Providers Care Mold Setter Name Role Phone Mike Goodman DNP Primary Care Provider [phone]- [phone] Encounter Details Date Type Department Care Team (Latest Contact Info) Description 05/15/2023 Travel Social History Tobacco Use Types Packs/Day [...] PM EDT Hospital [place] [address] [place] [address] 07/09/2024 8:30 AM EDT Appointment XRay at [address] [phone] Alena Pizar[place] [address] 07/17/2024 8:00 AM EDT Procedure [place] [address] 08/26/2024 8:00 AM EST Office [place] [address] 08/27/2024 9:00 AM EST Clinical [place] [address] documented as of this encounter Visit Diagnoses Not on filedocumented in this encounter Care Teams Mold Setter Relationship Specialty Start Date End Date Mike Goodman DNP [address] [place] [address] PCP - General Family Medicine 08/22/22 documented as of this encounter
--- OUTSIDE RECORDS SUMMARY | 2024-06-12 13:42 | XMS_ITS | Encounter Summary ---
Author Organization [facility] [place] [address] Care Team Providers Care Tire Recapping Machine Operator Name Role Phone Mike Goodman DNP Primary Care Provider Encounter Details Date Type Department Care Team (Late Contact Info) Description 05/21/2023 Telephone [place] [phone] Shefali Prather Social History Tobacco Use Types Packs/Day Years [...] encounter Miscellaneous Notes * Telephone Encounter - Shefali Prather - 05/21/2023 2:39 PM EDT I returned Mora's call from this morning and spoke with her. She was a patient of Dr. Dinesh Alejo's and saw him in the Gastroenterology clinic on 04/23/23. Since then, Mora has had all of the testing done that Dr. Lyle ordered (esophageal manometry, pH impedence study and MRCP). The tests were all scheduled and done as soon as possible. Her MRCP was completed on 05/15/23. Dr. Lyle has officially retired as of late April 2023 and will be away until late July/early August 2023 when he plans to resume doing some endoscopies but has no schedule planned for seeing anypatient's in clinic upon his return to [facility]. In the meantime, since Dr. Lyle is not available, Mora was hoping to talk with Dr. Portillo to go over her Gastroenterology test results. Mora is also scheduled for a follow up visit with Dr. Sheridan Cassidy in General Surgery for Saturday, June 17, 2023 at 1:45 pm-per Dr. Lyle's 04/23/23 office note. documented in this encounter Plan of Treatment Upcoming Encounters Date Type Department Care Team (Late st Contact Info) Description 06/15/2024 3:00 PM EDT Hospital [place] [address] [place] [address] 07/09/2024 8:30 AM EDT Appointment XRay at [address] [address] [place] [address] 07/17/2024 8:00 AM EDT Procedure [place] [address] 08/26/2024 8:00 AM EST Office Visit [place] [address] 08/27/2024 9:00 AM EST Clinical Support [place] [address] documented as of this encounter Visit Diagnoses Not on filedocumented in this encounter Care Teams Tire Recapping Machine Operator Relationship Specialty Start Date End Date Mike Goodman DNP [address] [place] [address] PCP - General Family Medicine 08/22/22 documented as of this encounter
--- OUTSIDE RECORDS SUMMARY | 2024-06-12 13:42 | XMS_ITS | Encounter Summary ---
[place] [address] Care Team Providers Care Meal Grinder Tender Name Role Phone Mike Goodman KYLE Primary Care Provider [phone] Reason for Referral * Consultation (Routine) - Closed Specialty Diagnoses / Procedures Referred By Martha broussard Referred To Contact Genetics Diagnoses Anal fissure Family hx of colon cancer Rehana Solorio APRN [address] [place] [address] [facility] [address] [place] [address] Referral ID Status Reason Start Date Expiration Date V isits Requested Visits Authorized [id number] Closed Consult, Test & Treat PCP Updated and/or Approved 03/07/2023 03/06/2024 1 1 Encounter Details Date Type Department Care Team (Late st Contact Info) Description 03/07/2023 Transcribe Orders eDH Incoming Referrals [phone] Rehana Solorio APRN [address] [place] [address] Anal fissure; Family hx of colon cancer Social History Tobacco Use Types Packs/Day [...] PM EDT [place] [address] Alena Pizarro, [place] [address] 07/09/2024 8:30 AM EDT Appointment XRay at [address] [address] [place] [address] 07/17/2024 8:00 AM EDT Procedure [place] [address] 08/26/2024 8:00 AM EST Office [place] [address] 08/27/2024 9:00 AM EST Clinical [place] [address] Scheduled Referrals Name Type Priority Associated Diagnoses Orde r Schedule Referral to Familial Cancer Outpatient Referral Routine Anal fissure Family hx of colon cancer Ordered: 03/07/2023 documented as of this encounter Visit Diagnoses Diagnosis Anal fissure Family hx of colon cancer Family history of malignant neoplasm of gastrointestinal tract documented in this encounter Care Teams Meal Grinder Tender Relationship Specialty Start Date End Date Mike Goodman DNP [address] [place] [address] [place] [address] PCP - General Family Medicine 08/22/22 documented as of this encounter
--- OUTSIDE RECORDS SUMMARY | 2024-06-12 13:42 | XMS_ITS | Encounter Summary ---
Author Organization [facility] Address [facility] [place] [address] Care Team Providers Care Surfacer Name Role Phone Laura Ross LOUIE Primary Care Provider [phone] Reason for Visit * Diagnostic Test (Routine) - Closed Specialty Diagnoses / Procedures Referred By Martha broussard Referred To Contact Radiology Diagnoses S/P partial gastrectomy Procedures XR Fluoro Barium Swallow (Single Contrast) Sheridan Cassidy MD [facility] [place] [address] [facility] Rad Xray [address] [place] [address] [place] [address] Referral ID Status Reason Start Date Expiration Date V isits Requested Visits Authorized [id number] Closed Specialty Service Requested 12/18/2020 06/19/2022 1 1 Encounter Details Date Type Department Care Team (Latest Contact Info) Description 12/27/2020 8:26 AM EDT - 12/27/2020 11:59 PM EDT Hospital Encounter XRay at [address] [place] [address] Sheridan Cassidy MD 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 01/11/2011 sucralfate (CARAFATE) 100 mg/mL SuspensionIndications: Postoperative epigastric abdominal pain Take 10 mLs by mouth 4 times daily. 420 mL 03/06/2018 01/02/2021 metFORMIN (GLUCOPHAGE-XR) 500 mg Tablet Sustained Release 24 hr Take 1 tablet by mouth nightly. Hold for 1 month while taking crushed medication 30 tablet 12 11/28/2017 01/02/2021 metFORMIN (GLUCOPHAGE) 500 mg Tablet Take 1 tablet by mouth nightly. Crush 60 tablet 12 11/28/2017 01/02/2021 ondansetron (ZOFRAN-ODT) 4 mg Tablet, Rapid Dissolve Take 1 tablet by mouth every 8 hours as needed for Nausea. 20 tablet 1 11/28/2017 01/02/2021 multivitamin (THERAGRAN) Tablet Take 1 tablet by mouth daily. 01/02/2021 documented as of this encounter Plan of Treatment Upcoming Encounters Date Type Department Care Team (Late st Contact Info) Description 06/15/2024 3:00 PM EDT Hospital [place] [address] [place] [address] 07/09/2024 8:30 AM EDT Appointment XRay at [address] [phone] [place] [address] 07/17/2024 8:00 AM EDT Procedure [place] [address] 08/26/2024 8:00 AM EST Office [place] [address] 08/27/2024 9:00 AM EST Clinical [place] [address] documented as of this encounter Procedures Procedure Name Priority Date/Time Associated Diagnosis Comments XR FLUORO BARIUM SWALLOW (DOUBLE CONTRAST) Routine 12/27/2020 9:26 AM EDT S/P partial gastrectomy documented in this encounter Results * XR Fluoro Barium Swallow (Double Contrast) (12/27/2020 9:26 AM EDT) Anatomical Region Laterality Modality N/A Radio Fluoroscop y Impressions 12/27/2020 11:29 AM EDT Status post Magdaelno fundoplication with a lack of expected tapering of the distal esophagus as well as rapid transit of 13 mm barium tablet through the wrap, concerning for wrap disruption/loosening. Thank you for letting us participate in the care of this patient. ??If you are a health care provider and have any questions regarding this report, please contact the number below. ??For patients who have questions please contact the health hospice care sales consultant that requested your imaging first. ? Electronically signed by: KRISTIN RICO MD, [facility] ([phone]), at 12/27/2020 11:29 AM Narrative 12/27/2020 11:29 AM EDT EXAMINATION: XR FLUORO BARIUM SWALLOW (DOUBLE CONTRAST) CLINICAL HISTORY: GERD, h/o slipped Magdaleno - check wrap TECHNIQUE: Double contrast esophagram was performed. Fluoroscopic spot films were obtained. Fluoro time: 1.6 minutes COMPARISON: Prior barium swallow studies, most recently 09/19/2017, abdominal radiograph 12/07/2018 FINDINGS: AP flyer repairer radiograph: The visualized lung bases are clear. Nonobstructive bowel gas pattern. Surgical clips are seen throughout the abdomen, unchanged. Barium swallow: The esophagus is normal in course and caliber, and is well distended on double contrast views. ??The mucosal pattern is normal. The gastroesophageal junction [...] Magdaleno wrap into the stomach without delay. Procedure Note Kristin Rico MD - 12/27/2020 EXAMINATION: XR FLUORO BARIUM SWALLOW (DOUBLE CONTRAST) CLINICAL HISTORY: GERD, h/o slipped Magdaleno - check wrap TECHNIQUE: Double contrast esophagram was performed. Fluoroscopic spot films wereobtained. Fluoro time: 1.6 minutes COMPARISON: Prior barium swallow studies, most recently 09/19/2017, abdominalradiograph 12/07/2018 FINDINGS: AP flyer repairer radiograph: The visualized lung bases are clear. Nonobstructive bowel gas pattern.Surgical clips are seen throughout the abdomen, unchanged. Barium swallow: The esophagus is normal in course and caliber, and is well distended ondouble contrast views. The mucosal pattern is normal. The gastroesophagealjunction is normally positioned. Esophageal peristalsis is normal. The expected tapering of the distal esophagus in a patient status postNissen is not as pronounced on the current study as it was on the prior. The wrapdoes partially fill with contrast near the end of the examination and is appropriately positioned at/just below the level of the diaphragm. No gastroesophageal reflux was elicited with provocative maneuvers. A 13 mm barium tablet rapidly passed through the esophagus and Magdaleno wrapinto the stomach without delay. IMPRESSION Status post Magdaleno fundoplication with a lack of expected tapering of thedistal esophagus as well as rapid transit of 13 mm barium tablet through thewrap, concerning for wrap disruption/loosening. Thank you for letting us participate in the care of this patient. If youare a health care provider and have any questions regarding this report,please contact the number below. For patients who have questions please contactthe health hospice care sales consultant that requested your imaging first. Electronically signed by: KRISTIN RICO MD, [facility]([phone]), at 12/27/2020 11:29 AM Sheridan Cassidy MD IMG FLUORO ORDERABLE S documented in this encounter Visit Diagnoses Diagnosis S/P partial gastrectomy Other postprocedural status documented in this encounter Administered Medications Inactive Administered Medications - up to 3 most recent administrations Medication Order MAR Action Action Date Dose Rate Site barium sulfate (E-Z Disk) tablet 700 mg 700 mg, Oral, ONCE, 1 dose, On Fri12/27/20 at 0945, Routine Given 12/27/2020 9:45 AM EDT 700 mg barium sulfate (E-Z-HD) 98% oral liquid 50 mL 50 mL, Oral, ONCE, 1 dose, On Fri12/27/20 at 0945, Routine Given 12/27/2020 9:45 AM EDT 25 mLs barium sulfate (Ezpaque) 60% (w/v) oral liquid 355 mL 355 mL, Oral, ONCE, 1 dose, On Fri12/27/20 at 0945, Routine Given 12/27/2020 9:45 AM EDT 100 mLs documented in this encounter Care Teams Surfacer Relationship Specialty Start Date End Date Laura Ross APRN [address] [place] [address] PCP - General Family Medicine 10/01/17 08/21/22 documented as of this encounter
--- OUTSIDE RECORDS SUMMARY | 2024-06-12 13:42 | XMS_ITS | Encounter Summary ---
[place] [address] Care Team Providers Care Barrel Leveler Name Role Phone Mike Goodman DNP Primary Care Provider Encounter Details Date Type Department Care Team (Late st Contact Info) Description 12/13/2022 Telephone Hematology [place] [phone] Danielle Willams Social History Tobacco Use Types Packs/Day Years [...] encounter Miscellaneous Notes * Telephone Encounter - Danielle Willams - 12/13/2022 8:13 AM EDT Mora Bolanos 1975 [id number] Referring provider: Mike Goodman Date of Referral: 12/12/22 Please review outside breast imaging dated: 09/19/22 Reason for exam and clinical history:right breast painful mass Category:0 Questions to be answered:bx More imaging Sending Institution: [facility] Patient would like treatment at: Call pt at: Home Phone [phone] documented in this encounter Plan of Treatment Upcoming Encounters Date Type Department Care Team (Late st Contact Info) Description 06/15/2024 3:00 PM EDT Hospital [place] [address] Alena Pizarro [place] [address] 07/09/2024 8:30 AM EDT Appointment XRay at [address] [address] [place] [address] 07/17/2024 8:00 AM EDT Procedure [place] [address] 08/26/2024 8:00 AM EST Office Visit [place] [address] 08/27/2024 9:00 AM EST Clinical Support [place] [address] documented as of this encounter Visit Diagnoses Not on filedocumented in this encounter Care Teams Barrel Leveler Relationship Specialty Start Date End Date Mike Goodman DNP [address] [place] [address] PCP - General Family Medicine 08/22/22 documented as of this encounter
--- OUTSIDE RECORDS SUMMARY | 2024-06-12 13:43 | XMS_ITS | Encounter Summary ---
Author Organization [facility] [place] [address] Care Team Providers Care Detention Officer Name Role Phone Laura Ross LOUIE Primary Care Provider [phone] Reason for Visit * Auth/Cert Specialty Diagnoses / Procedures Referred By Martha broussard Referred To Contact Diagnoses SEVERE ABDOMINAL PAIN Procedures PRO UPPER GI ENDOSCOPY, DIAGNOSTIC EGD, UPPER GI ENDOSCOPY Referral ID Status Reason Start Date Expiration Date Visits Re quested Visits Authorized [id number] 1 1 Encounter Details Date Type Department Care Team (Latest Contact Info) Description 03/09/2018 12:10 PM EDT - 03/09/2018 2:06 PM EDT Hospital Encounter [place] [address] Sheridan Cassidy MD [facility] [place] [address] Discharge Disposition: Home Social History Tobacco Use [...] Sign Reading Time Taken Comments Blood Pressure 129/74 03/09/2018 1:25 PM EDT Pulse 65 03/09/2018 1:25 PM EDT Temperature - - Respiratory Rate 16 03/09/2018 1:35 PM EDT Oxygen Saturation 96% 03/09/2018 1:25 PM EDT Inhaled Oxygen Concentration - - Weight 74.4 kg (164 lb) 03/09/2018 12:45 PM EDT Height - - Body Mass Index 31 11/26/2017 10:43 PM EDT documented in this encounter Discharge Instructions * Discharge Instructions* Mana Godoy, RN - 03/09/2018 1:27 PM EDT UPPER GI ENDOSCOPY WHAT TO EXPECT AFTER THE PROCEDURE After the test you may feel a little more gassy or bloated than usual, this is normal. ACTIVITY Because of the sedation that you received Your judgement and reaction time are affected ?? Go home and rest quietly for the remainder of the day. You may resume your normal activities tomorrow. ?? Change from one position to the next slowly. You may lose your balance unexpectedly Be careful on stairs, as you may be unsteady on your feet. FOR THE NEXT 24 HRS ?? DO NOT DRIVE OR OPERATE ANY MACHINERY ?? DO NOT DRINK ALCOHOLIC BEVERAGES ?? DO NOT SIGN LEGAL DOCUMENTS ?? If you are a smoker: DO NOT SMOKE WHILE YOU ARE ALONE Diet ?? Start by eating small portions of foods that ordinarily will not upset your stomach. Be gentle with what you choose to start with. ?? Drink plenty of fluids ( unless otherwise told not to) Medications You may have a mild sore throat. Ice chips, popsicles, over the counter throat lozenges or spray may help numb your throat. This procedure should not cause a fever. IV SITE-- slight redness or tenderness is normal, you can use warm compresses if you get concerned.If the tenderness +/or redness increases or foul drainage and a red streak occurs, please contact your PCP immediately. WHEN SHOULD YOU CALL FOR HELP? Call 911 anytime you think that you need emergency care. For example, call if: You passed out (lost consciousness). You cough up blood. You vomit blood or what looks like coffee grounds. You pass maroon or very bloody stools. Call your healthcare provider or seek immediate medical attention if: You have trouble swallowing. You have belly pain. Your stools are black or tarlike or have streaks of blood. You are sick to your stomach or cannot keep fluids down. Watch closely for changes in your health, and be sure to contact your doctor IF Your throat still hurts after a day or two You do not get better as expected. Friday-Friday Same Day Endo [phone]-8p Otherwise contact [phone] and ask to speak to the water taxi boat mate operations chief Follow-up care is a diaz part of your treatment and safety. Be sure to make and go to all appointments, and call your doctor if you are having problems. Instructions have been reviewed and patient expresses understanding documented in this encounter Medications at Time of Discharge Medication Sig Dispensed Refills Start Date End Date epiNEPHrine 0.15 mg/0.15 mL Cmpk combo pack Inject into the muscle as needed (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 01/11/2011 omeprazole (PRILOSEC) 40 mg Capsule, Delayed Release(E.C.)Indicati ons:Postoperative epigastric abdominal pain Take 1 capsule by mouth 2 times daily (before meals). 60 capsule 11 03/06/2018 03/06/2019 sucralfate (CARAFATE) 100 mg/mL SuspensionIndications :Postoperative epigastric abdominal pain Take 10 mLs by [...] daily. 01/02/2021 documented as of this encounter H&P Notes * Sheridan Cassidy MD - 03/09/2018 12:50 PM EDT Patient Name: Mora Bolanos Patient Age: 42 y.o. Birthdate: 1975 Admit date: 03/09/2018 Attending Physician: Sheridan Cassidy MD 42 yo female post gabriella converted to bypass with new dysphagia. Here for EGD, possible dilation. Patient Active Problem List Diagnosis Code ??? Gastroesophageal reflux K21.9 ??? Dyspepsia R10.13 ??? Disorder of female genital organ N94.9 ??? Endometriosis of other specified sites N80.8 ??? Nausea R11.0 ??? 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 Past Surgical History: Procedure Laterality Date ??? PRO LAP, ESOPHAGUS, OTHER PROC 11/25/2012 LAPAROSCOPIC REVISION OF GABRIELLA FUNDOPLASTY performed by Sheridan Cassidy MD at [facility] MAIN OR ??? PRO LAP, ESOPHAGUS, OTHER PROC N/A 11/26/2017 LAPAROSCOPIC REVISION OF GABRIELLA FUNDOPLASTY (WRVU *) performed by Sheridan Cassidy MD at [facility] MAIN OR ??? PRO LAP, STOMACH, OTHER, W/O TUBE N/A 11/26/2017 LAPAROSCOPIC GASTRECTOMY, PARTIAL, W EVIN-EN-Y RECONSTRUCTION (WRVU *) performed by Sheridan Cassidy MD at [facility] MAIN OR ??? PRO UPPER GI ENDOSCOPY, BIOPSY 09/04/2012 EGD WITH BIOPSY performed by Didier Jones MD at [facility] ENDOSCOPY ??? PRO UPPER GI ENDOSCOPY, BIOPSY N/A 07/22/2016 UPPER GASTROINTESTINAL ENDOSCOPY,WITH BIOPSY SINGLE OR MULTIPLE performed by Sheridan Cassidy MD [facility] ENDOSCOPY ??? PRO UPPER GI ENDOSCOPY, BIOPSY N/A 10/20/2017 EGD WITH BIOPSY (WRVU 2.49) performed by Sheridan Cassidy MD at [facility] ENDOSCOPY ??? PRO UPPER GI ENDOSCOPY, DIAGNOSTIC 11/25/2012 ENDOSCOPY, UPPER GI, DIAGNOSTIC, WITH OR WITHOUT SPECIMENS performed by Sheridan Cassidy MD at [facility] OR ??? PRO UPPER GI ENDOSCOPY, DIAGNOSTIC 07/18/2014 EGD, UPPER GI ENDOSCOPY performed by Sheridan Cassidy MD at [facility] ENDOSCOPY ??? PRO UPPER GI ENDOSCOPY, DIAGNOSTIC N/A 11/26/2017 ENDOSCOPY, UPPER GI, DIAGNOSTIC, WITH OR WITHOUT SPECIMENS [facility] ??? UPPER GI ENDOSCOPY, EXAM 09/04/2012 UPPER GI ENDOSCOPY performed by Didier Jones MD at [facility] ENDOSCOPY No current facility-administered medications on file prior to encounter. Current Outpatient Prescriptions on File Prior to Encounter Medication Sig Dispense Refill ??? omeprazole (PRILOSEC) 40 mg Capsule, Delayed Release(E.C.) Take 1 capsule by mouth 2 times daily (before meals). 60 capsule 11 ??? sucralfate (CARAFATE) 100 mg/mL Suspension Take 10 mLs by mouth 4 times daily. 420 mL 0 ??? metFORMIN (GLUCOPHAGE-XR) 500 mg Tablet Sustained Release 24 hr Take 1 tablet by mouth nightly.Hold for 1 month while taking crushed medication 30 tablet 12 ??? metFORMIN (GLUCOPHAGE) 500 mg Tablet Take 1 tablet by mouth nightly. Crush 60 tablet 12 ??? ondansetron (ZOFRAN-ODT) 4 mg Tablet, Rapid Dissolve Take 1 tablet by mouth every 8 hours as needed for Nausea. 20 tablet 1 ??? multivitamin (THERAGRAN) Tablet Take 1 tablet by mouth daily. ??? epiNEPHrine 0.15 mg/0.15 mL Cmpk combo pack Inject into the muscle as needed. Allergies Allergen Reactions ??? Onion Anaphylaxis ??? Bupropion ??? Bupropion Hcl Other (See Comments) serum sickness ??? Metoclopramide Hcl Other (See Comments) Unknown On examination, she appears well and in no distress. Head and neck exam reveals equal, reactive pupils and a supple neck. Her chest is clear bilaterally and her heart sounds are normal with no adventitious sounds or murmurs. Her abdomen is soft with no masses or tenderness. Extremity and Neuro exams are grossly normal. ASA I MAL II documented in this encounter Plan of Treatment Upcoming Encounters Date Type Department Care Team (Late st Contact Info) Description 06/15/2024 3:00 PM EDT Hospital [place] [address] [place] [address] 07/09/2024 8:30 AM EDT Appointment XRay at [address] [phone] [place] [address] 07/17/2024 8:00 AM EDT Procedure [place] [address] 08/26/2024 8:00 AM EST Office [place] [address] 08/27/2024 9:00 AM EST Clinical [place] [address] documented as of this encounter Procedures Procedure Name Priority Date/Time Associated Diagnosis Comments SPECIMEN TO PATHOLOGY Routine 03/09/2018 1:20 PM EDT SURGICAL PATHOLOGY REPORT Routine 03/09/2018 1:13 PM EDT EGD WITH BIOPSY (WRVU 2.39) 03/09/2018 12:52 PM EDT SEVERE ABDOMINAL PAIN UPPER GI ENDOSCOPY Routine 03/09/2018 12 :38 PM EDT documented in this encounter Results * Specimen to Pathology (03/09/2018 1:20 PM EDT) AP Specimen 03/09/2018 1:20 PM EDT 03/09/2018 1:20 PM EDT Narrative [facility] - 03/09/2018 1:20 PM EDT Specimen requisition ordered. ??Separate Pathology report to follow Sheridan Cassidy MD PATHOLOGY/CYTOLOGY O RDERABLES [facility] [place] [address] * Surgical Pathology Report (03/09/2018 1:13 PM EDT) Final Diagnosis [id number] ? Location: 4T; EA11; A The signing pathologist has (i) examined the relevant preparation(s) for the specimen(s) and (ii) rendered or confirmed the diagnosis(es). . ?Surgical Pathology DIAGNOSIS Stomach, biopsy: Gastric antral and body-fundic mucosa with pathcy increase in chronic inflammatory cells. See discussion #1. Electronically signed by: ??Capo MCGOVERN PhD, Kevin Ramirez Verified: ??03/11/2018 ?Pathologist Performed at: ??-[facility] Dept. of Pathology, [place], [place] DISCUSSION 1. ??There is no histological evidence of H.pylori. 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 Quantity/Size: Two, averaging 0.4 cm. Tissue Description: Soft dukes tissue. Sections/Process ing: (T1) ??tiago 03/11/2018 12:42 PM EDT [facility] GI Biopsy 03/09/2018 1:13 PM EDT 03/09/2018 1:13 PM EDT Sheridan Cassidy MD PATHOLOGY/CYTOLOGY O RDERABLES [facility] [place] [address] * UPPER GI ENDOSCOPY (03/09/2018 12:38 PM EDT) UPPER GI ENDOSCOPY [facility] ___ Procedure Date: 03/09/2018 12:38 PM ? Patient Name: Mora Bolanos ? Date of : 1975 ? Age: 42 ? Order #: [id number] ? Instrument Name: [id number] ? ___ Procedure: ? Upper GI endoscopy Indications: ? Dysphagia Providers: ? Sheridan Cassidy MD, Alexandra Taylor, ? RN, Symone Queen, Machine Tack Puller Referring : ?Laura Zhen Ross Medicines: ? Fentanyl 200 micrograms IV, Midazolam ? 4.5 mg IV, Diphenhydramine 25 mg IV Complications: ? No immediate complications. ___ Procedure: ? Pre-Anesthesia Assessment: ? - Prior [...] the physician, the nurse and the ? power lineman technician in the pre-procedure area ? in [...] ? antiplatelet agents. ASA Grade ? Assessment: I - A normal, healthy ? patient. After reviewing the risks ? and benefits, the patient was deemed ? in satisfactory condition to undergo ? the procedure. The anesthesia plan ? was to use moderate sedation / ? [...] the procedure well. ? Findings: ? The Z-line was irregular and was found at the ? gastroesophageal junction. ? Evidence of a gastric bypass was found. A gastric ? pouch with a medium size was found. The staple line ? appeared intact. The gastrojejunal anastomosis was ? characterized by congestion. This was traversed. The ? khclt-mk-wyjtdxz limb was characterized by ? congestion. Biopsies were taken with a cold forceps ? for Helicobacter pylori testing. ? The examined jejunum was normal. ? Moderate Sedation: ? Moderate (conscious) sedation was administered by the ? endoscopy nurse and supervised by the endoscopist. ? The following parameters were monitored: oxygen ? saturation, heart rate, blood pressure, respiratory ? rate, EKG, adequacy of pulmonary ventilation, and ? response to care. Total physician intraservice time ? was 10 minutes. Impression: ?- Z-line irregular, at the ? gastroesophageal junction. ? - Gastric bypass with a medium-sized ? pouch and intact staple line. ? Gastrojejunal anastomosis ? characterized by congestion. Biopsied. ? - Normal examined jejunum. Recommendation: ?- Continue present medications. ? - Await pathology results. ? Procedure Code(s): ?? --- Professional --- ? 70616, Esophagogastroduode noscopy, ? flexible, transoral; with biopsy, ? single or multiple ? 17812, 59, Moderate sedation services ? provided by the same physician or ? other qualified health care ? professional performing the ? diagnostic or therapeutic service ? that the sedation supports, requiring ? the presence of an independent ? trained observer to assist in the ? monitoring of the patient's level of ? consciousness and physiological ? status; initial 15 minutes of ? intraservice time, patient age 5 ? years or older CPT copyright 2016 [employer]. All rights reserved. The codes documented in this report are preliminary and upon cryptographic center specialist review may be revised to meet current compliance requirements. Attending Participation: ? I personally performed the entire procedure. ? Sheridan Cassidy MD 03/09/2018 1:26:14 PM This report has been signed electronically. Number of Addenda: 0 Note Initiated On: 03/09/2018 12:38 PM [employer]ATION 03/09/2018 12:3 8 PM EDT Laura Ross MANAGEMENT EXPERT GENERAL SURGICAL ORD ERABLES [employer] documented in this encounter Visit Diagnoses Not on filedocumented in this encounter Active and Recently Administered Medications Times are shown in EDT. PRN Medication Order 03/07/2018 03/08/2018 03/09/2018 diphenhydrAMINE (BENADRYL) injection (CANCELED) ONCE PRN, Starting on Fri03/09/18 at 1309, Until Fri03/09/18 at 1434, Intra-Operative (Intra-Procedure), Routine 1309 (Given - Provid er: Alexandra Taylor RN) fentaNYL 50 mcg/mL multi-dose injection (CANCELED) ONCE PRN, Starting on Fri03/09/18 at 1300, Until Fri03/09/18 at 1434, Intra-Operative (Intra-Procedure), Routine 1300 (Given - Provid er: Alexandra Taylor RN)1303 (Given - Provider: Alexandra Taylor RN)1306 (Given - Provider: Alexandra Taylor RN)1309 (Given - Provider: Alexandra Taylor RN) midazolam (PF) (VERSED) 1 mg/mL multi-dose injection (CANCELED) ONCE PRN, Starting on Fri03/09/18 at 1300, Until Fri03/09/18 at 1434, Intra-Operative (Intra-Procedure), Routine 1300 (Given - Provid er: Alexandra Taylor RN)1303 (Given - Provider: Alexandra Taylor RN)1306 (Given - Provider: Alexandra Taylor RN)1309 (Given - Provider: Alexandra Taylor RN)1312 (Given - Provider: Alexandra Taylor RN) documented in this encounter Care Teams Detention Officer Relationship Specialty Start Date End Date Laura Ross APRN [address] [place] [address] PCP - General Family Medicine 10/01/17 08/21/22 documented as of this encounter
--- OUTSIDE RECORDS SUMMARY | 2024-06-12 13:43 | XMS_ITS | Encounter Summary ---
Author Organization [facility] [place] [address] Care Team Providers Care Wire Stripper Name Role Phone Laura Ross LOUIE Primary Care Provider Encounter Details Date Type Department Care Team (Late st Contact Info) Description 03/09/2018 Orders Only [place] [phone] Sheridan Cassidy MD [facility] [place] [address] Upper abdominal pain Social History Tobacco Use Types [...] PM EDT Hospital [place] [address] Alena Pizarro APRN [facility] [address] 07/09/2024 8:30 AM EDT Appointment XRay at [address] [phone] [place] [address] 07/17/2024 8:00 AM EDT Procedure visit [place] [address] 08/26/2024 8:00 AM EST Office [place] [address] 08/27/2024 9:00 AM EST Clinical [place] [address] documented as of this encounter Results * Lipase (03/09/2018 2:39 PM EDT) [facility] Lipase 40 0 - 60 unit/L [facility] Blood specimen (specimen) 03/09/2018 2:39 PM EDT 03/09/2018 2:48 PM EDT Narrative Resulting Agency Comment Spec In Lab Sheridan Cassidy MD CHEMISTRY ORDERABLES Performing Organization Address [facility] Co de Phone Number [facility] [place] [address] * Amylase (03/09/2018 2:39 PM EDT) Pathologist [facility] Amylase 51 28 - 100 unit/L [facility] Blood specimen (specimen) 03/09/2018 2:39 PM EDT 03/09/2018 2:48 PM EDT Narrative Resulting Agency Comment Spec In Lab Sheridan Cassidy MD CHEMISTRY ORDERABLES Performing Organization Address [facility]/ZIP Co de Phone Number [facility] [place] [address] * (ABNORMAL) Hepatic Function Panel (03/09/2018 2:39 PM EDT) Pathologist [facility] Protein, Total 6.5 6.1 - 8.0 gm/dL [facility] Albumin 4.1 3.2 - 5.2 gm/dL [facility] Aspartate Aminotransferase 24 0 - 30 unit/L [facility] Alanine Aminotransferase 82(H) 0 - 30 unit/L [facility] Alkaline Phosphatase 118(H) 40 - 104 unit/L [facility] Bilirubin, Total 0.4 0.2 - 1.3 mg/dL [facility] Bilirubin, Direct 0.1 0.0 - 0.3 mg/dL [facility] Blood specimen (specimen) 03/09/2018 2:39 PM EDT 03/09/2018 2:48 PM EDT Narrative Resulting Agency Comment Spec In Lab Sheridan Cassidy MD CHEMISTRY ORDERABLES Performing Organization Address City/State/[facility] Co de Phone Number [facility] [place] [address] documented in this encounter Visit Diagnoses Diagnosis Upper abdominal pain Abdominal pain, other specified site documented in this encounter Care Teams Wire Stripper Relationship Specialty Start Date End Date Laura Ross APRN [address] [place] [address] PCP - General Family Medicine 10/01/17 08/21/22 documented as of this encounter
--- OUTSIDE RECORDS SUMMARY | 2024-06-12 13:43 | XMS_ITS | Encounter Summary ---
Author Organization [facility] [place] [address] Care Team Providers Care Venetian Blind Worker Name Role Phone Laura Ross VP COMMUNICATIONS Primary Care Provider [phone] Encounter Details Date Type Department Care Team (Late st Contact Info) Description 08/24/2019 Ancillary Procedure Radiology Library at [facility] [place] [address] Laura Ross, VP COMMUNICATIONS [address] [place] [address] Social History Tobacco Use Types Packs/Day Years [...] PM EDT Hospital [place] [phone] Alena Pizarro, VP COMMUNICATIONS [facility] [place] [address] 07/09/2024 8:30 AM EDT Appointment XRay at [address] [phone] [place] [address] 07/17/2024 8:00 AM EDT Procedure [place] [address] 08/26/2024 8:00 AM EST Office [place] [address] 08/27/2024 9:00 AM EST Clinical [place] [address] documented as of this encounter Procedures Procedure Name Priority Date/Time Associated Diagnosis Comments FILM LIBRARY STORAGE ONLY ULTRASOUND STUDY Routine 08/24/2019 12:00 AM EST documented in this encounter Results * Film Library- Storage Only Ultrasound Study (08/24/2019 12:00 AM EST) Narrative [facility] - 08/25/2019 4:49 PM EST This exam is auto-finalizing. It's purpose is for storage only. Laura Ross APRN [employer] FILM LIBRARY ORD ERABLES [place], [place] documented in this encounter Visit Diagnoses Not on filedocumented in this encounter Care Teams Venetian Blind Worker Relationship Specialty Start Date End Date Laura Ross APRN [address] [place] [address] PCP - General Family Medicine 10/01/17 08/21/22 documented as of this encounter
--- OUTSIDE RECORDS SUMMARY | 2024-06-12 13:43 | XMS_ITS | Encounter Summary ---
[place] [address] Care Team Providers Care Provisioning Specialist Name Role Phone Laura Ross LOUIE Primary Care Provider [phone] Encounter Details Date Type Department Care Team (Late st Contact Info) Description 12/04/2017 Telephone [place] [id number] Aleja Curtis, RN Social History Tobacco Use Types Packs/Day [...] encounter Miscellaneous Notes * Telephone Encounter - Aleja Curtis RN - 12/04/2017 9:01 AM EDT Nursing Triage - Phone Note DATE OF CALL: 12/04/2017 TIME OF CALL: 9:02 AM PATIENT DATE OF : 1975 CALLER: RN to the patient Learning Needs Assessment Reviewed: Yes SUBJECTIVE - Follow up after surgery PERTINENT PAST MEDICAL HISTORY: Pt is s/p [facility] Operative Note ?? Patient Name: Mora Bolanos : [id number] MR#: [id number] ?? Case Date: 11/26/2017 ?? Surgeon: Surgeon(s) and Role: * Sheridan Cassidy MD - Primary * Ange Cordon MD - No qualified resident available to assist ? Preoperative diagnosis: FAILED FUNDOPLICATION ?? Postoperative diagnosis: FAILED FUNDOPLICATION ?? Procedure(s) (LRB): LAPAROSCOPIC REVISION OF GABRIELLA FUNDOPLASTY (WRVU *) (N/A) LAPAROSCOPIC GASTRECTOMY, PARTIAL, W EVIN-EN-Y RECONSTRUCTION (WRVU *) (N/A) ENDOSCOPY, UPPER GI, DIAGNOSTIC, WITH OR WITHOUT SPECIMENS (N/A) ? Anesthesia: General ?? Estimated Blood Loss: 31.4 NURSING OBJECTIVE/ASSESSMENT: Pt did not answer her phone left a message for her to call with any questions or concerns. Symptom onset: Location: Duration: Characteristics: Aggravating factors: Relieving factors: Timing: Severity: INTERVENTION/PLAN/ FOLLOW UP: If your symptoms do not improve, or they worsen, report to your local emergency department. CALLER AGREES: No PCP: Laura Ross APRN documented in this encounter Plan of Treatment Upcoming Encounters Date Type Department Care Team (Late st Contact Info) Description 06/15/2024 3:00 PM EDT Hospital [place] [address] [place] [address] 07/09/2024 8:30 AM EDT Appointment XRay at [address] [address] [place] [address] 07/17/2024 8:00 AM EDT Procedure [place] [address] 08/26/2024 8:00 AM EST Office [place] [address] 08/27/2024 9:00 AM EST Clinical [place] [address] documented as of this encounter Visit Diagnoses Not on filedocumented in this encounter Care Teams Provisioning Specialist Relationship Specialty Start Date End Date Laura Ross APRN [address] [place] [id number] PCP - General Family Medicine 10/01/17 08/21/22 documented as of this encounter
--- OUTSIDE RECORDS SUMMARY | 2024-06-12 13:43 | XMS_ITS | Encounter Summary ---
Author Organization [facility] [place] [address] Care Team Providers Care Access Database Developer Name Role Phone Laura Ross MEETING FACILITATOR Primary Care Provider [phone] Encounter Details Date Type Department Care Team (Late st Contact Info) Description 07/19/2019 Ancillary Procedure Radiology Library at [facility] [place] [address] Laura Ross, MEETING FACILITATOR [address] [place] [address] Social History Tobacco Use Types Packs/Day Years [...] PM EDT Hospital [place] [address] Alena Pizarro, MEETING FACILITATOR [facility] [place] [address] 07/09/2024 8:30 AM EDT Appointment XRay at [address] [address] [place] [address] 07/17/2024 8:00 AM EDT Procedure [place] [address] 08/26/2024 8:00 AM EST Office [place] [address] 08/27/2024 9:00 AM EST Clinical [place] [address] documented as of this encounter Procedures Procedure Name Priority Date/Time Associated Diagnosis Comments FILM LIBRARY STORAGE ONLY ULTRASOUND STUDY Routine 07/19/2019 12:00 AM EST documented in this encounter Results * Film Library- Storage Only Ultrasound Study (07/19/2019 12:00 AM EST) Narrative [facility] - 08/25/2019 4:52 PM EST This exam is auto-finalizing. It's purpose is for storage only. Laura Ross APRN [facility] FILM LIBRARY ORD ERABLES [place], [place] documented in this encounter Visit Diagnoses Not on filedocumented in this encounter Care Teams Access Database Developer Relationship Specialty Start Date End Date Laura Ross APRN [address] [place] [address] PCP - General Family Medicine 10/01/17 08/21/22 documented as of this encounter
--- OUTSIDE RECORDS SUMMARY | 2024-06-12 13:43 | XMS_ITS | Encounter Summary ---
Author Organization [facility] [place] [address] Care Team Providers Care Coil Winding Machines Set Up Mechanic Name Role Phone Laura Ross SPECIAL AGENT SECRET SERVICE Primary Care Provider [phone] Encounter Details Date Type Department Care Team (Late st Contact Info) Description 06/18/2019 Ancillary Procedure Radiology Library at [facility] [place] [address] Laura Ross, SPECIAL AGENT SECRET SERVICE [address] [place] [address] Social History Tobacco Use Types Packs/Day Years [...] PM EDT Hospital Encounter [place] [phone] Alena Pizarro, SPECIAL AGENT SECRET SERVICE [facility] [place] [address] 07/09/2024 8:30 AM EDT Appointment XRay at [address] [address] [place] [address] 07/17/2024 8:00 AM EDT Procedure visit [place] [address] 08/26/2024 8:00 AM EST Office [place] [address] 08/27/2024 9:00 AM EST Clinical [place] [address] documented as of this encounter Procedures Procedure Name Priority Date/Time Associated Diagnosis Comments FILM LIBRARY STORAGE ONLY DX WRIST Routine 06/18/2019 12:00 AM EDT documented in this encounter Results * Film Library- Storage Only DX Wrist (06/18/2019 12:00 AM EDT) Narrative [facility] - 08/25/2019 4:15 PM EST This exam is auto-finalizing. It's purpose is for storage only. Laura Ross APRN [employer] FILM LIBRARY ORD ERABLES [place], [place] documented in this encounter Visit Diagnoses Not on filedocumented in this encounter Care Teams Coil Winding Machines Set Up Mechanic Relationship Specialty Start Date End Date Laura Ross APRN [address] [place] [address] PCP - General Family Medicine 10/01/17 08/21/22 documented as of this encounter
--- OUTSIDE RECORDS SUMMARY | 2024-06-12 13:43 | XMS_ITS | Encounter Summary ---
Author Organization [facility] [place] [address] Care Team Providers Care Senior Care Specialist Name Role Phone Laura Ross LOUIE Primary Care Provider [phone] Reason for Visit * Auth/Cert Specialty Diagnoses / Procedures Referred By Martha broussard Referred To Contact Diagnoses SEVERE ABDOMINAL PAIN Procedures PRO UPPER GI ENDOSCOPY, DIAGNOSTIC EGD, UPPER GI ENDOSCOPY Referral ID Status Reason Start Date Expiration Date Visits Re quested Visits Authorized [id number] 1 1 Encounter Details Date Type Department Care Team (Late st Contact Info) Description 03/09/2018 1:00 PM EDT - 03/09/2018 1:30 PM EDT [place] [address] Sheridan Cassidy MD [facility] [place] [address] EGD WITH BIOPSY (WRVU 2.39) Social History Tobacco Use Types Packs/Day [...] encounter Discharge Instructions * Discharge Instructions* Mana Godoy RN - 03/09/2018 1:27 PM EDT UPPER [...] better as expected. Friday-Friday Same Day Endo [phone] 7a-8p Otherwise contact [phone] and ask to speak to the select banker regional refrigerated cdl truck driver Follow-up care is a diaz part of [...] FUNDOPLASTY performed by Sheridan Cassidy MD at [facility] MAIN OR ??? PRO LAP, ESOPHAGUS, OTHER PROC N/A 11/26/2017 LAPAROSCOPIC REVISION OF GABRIELLA FUNDOPLASTY (WRVU *) performed by Sheridan Cassidy MD at [facility] MAIN OR ??? PRO LAP, STOMACH, OTHER, W/O TUBE N/A 11/26/2017 LAPAROSCOPIC GASTRECTOMY, PARTIAL, W EVIN-EN-Y RECONSTRUCTION (WRVU *) performed by Sheridan Cassidy MD at [facility] MAIN OR ??? PRO UPPER GI ENDOSCOPY, BIOPSY 09/04/2012 EGD WITH BIOPSY performed by Didier Jones MD at [facility] ENDOSCOPY ??? PRO UPPER GI ENDOSCOPY, BIOPSY N/A 07/22/2016 UPPER GASTROINTESTINAL ENDOSCOPY,WITH BIOPSY SINGLE OR MULTIPLE performed by Sheridan Cassidy MD [facility] ENDOSCOPY ??? PRO UPPER GI ENDOSCOPY, BIOPSY N/A 10/20/2017 EGD WITH BIOPSY (WRVU 2.49) performed by Sheridan Cassidy MD at [facility] ENDOSCOPY ??? PRO UPPER GI ENDOSCOPY, DIAGNOSTIC 11/25/2012 ENDOSCOPY, UPPER GI, DIAGNOSTIC, WITH OR WITHOUT SPECIMENS [facility] PRO UPPER GI ENDOSCOPY, DIAGNOSTIC 07/18/2014 EGD, UPPER GI ENDOSCOPY performed by Sheridan Cassidy MD at [facility] ENDOSCOPY ??? PRO UPPER GI ENDOSCOPY, DIAGNOSTIC N/A 11/26/2017 ENDOSCOPY, UPPER GI, DIAGNOSTIC, WITH OR WITHOUT SPECIMENS [facility]?? UPPER GI ENDOSCOPY, EXAM 09/04/2012 UPPER GI ENDOSCOPY performed by Didier Jones MD at [facility] ENDOSCOPY No current facility-administered medications [...] PM EDT Hospital [place] [phone] [place] [address] 07/09/2024 8:30 AM EDT Appointment XRay at [address] [address] [place] [address] 07/17/2024 8:00 AM EDT Procedure [place] [address] 08/26/2024 8:00 AM EST Office [place] [address] 08/27/2024 9:00 AM EST Clinical [place] [address] documented as of this encounter Procedures Procedure [...] PM EDT 03/09/2018 1:20 PM EDT Narrative [facility] - 03/09/2018 1:20 PM EDT Specimen requisition ordered. ??Separate Pathology report to follow Sheridan Cassidy MD PATHOLOGY/CYTOLOGY O RDERABLES [facility] [place] [address] * Surgical Pathology Report (03/09/2018 1:13 PM EDT) Final Diagnosis [id number] ? Location: 4T; EA11; A The signing pathologist has (i) examined the relevant preparation(s) for the specimen(s) and (ii) rendered or confirmed the diagnosis(es). . ?Surgical Pathology DIAGNOSIS Stomach, biopsy: Gastric antral and body-fundic mucosa with pathcy increase in chronic inflammatory cells. See discussion #1. Electronically signed by: ??Capo MCOGVERN PhD, Kevin Ramirez Verified: ??03/11/2018 ?Pathologist Performed at: ??-[facility] Dept. of Pathology, [place], [place] DISCUSSION 1. ??There is no histological evidence of H.pylori. 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 Quantity/Size: Two, averaging 0.4 cm. Tissue Description: Soft dukes tissue. Sections/Process ing: (T1) ??tiago 03/11/2018 12:42 PM EDT [facility] GI Biopsy 03/09/2018 1:13 PM EDT 03/09/2018 1:13 PM EDT Sheridan Cassidy MD PATHOLOGY/CYTOLOGY O RDERABLES [facility] [place] [address] * UPPER GI ENDOSCOPY (03/09/2018 12:38 PM EDT) UPPER GI ENDOSCOPY [facility] Endoscopy ___ Procedure Date: 03/09/2018 12:38 PM ? Patient Name: Mora Bolanos ? Date of : 1975 ? Age: 42 ? Order #: [id number] ? Instrument Name: [id number] ? ___ Procedure: ? Upper GI endoscopy Indications: ? Dysphagia Providers: ? Sheridan Cassidy MD, Alexandra Taylor, ? RN, Symone Queen, Decorating Machine Tender Referring : ?Laura Zhen Ross Medicines: ? [...] the physician, the nurse and the ? altitude chamber technician in the pre-procedure area ? in [...] by congestion. This was traversed. The ? mbkfw-cf-oyfzrbs limb was characterized by ? congestion. Biopsies [...] Procedure Code(s): ?? --- Professional --- ? 96513, Esophagogastroduode noscopy, ? flexible, transoral; with biopsy, ? single or multiple ? 55546, 59, Moderate sedation services ? provided by [...] ? years or older CPT copyright 2016 [employer]. All rights reserved. The codes documented in this report are preliminary and upon irs agent review may be revised to meet current compliance requirements. Attending Participation: ? I personally performed the entire procedure. ? Sheridan Cassidy MD 03/09/2018 1:26:14 PM This report has been signed electronically. Number of Addenda: 0 Note Initiated On: 03/09/2018 12:38 PM PROVATION 03/09/2018 12:3 8 PM EDT Laura L Cody SUPERVISING FLOORPERSON GENERAL SURGICAL ORD ERABLES [employer]ATION documented in this encounter Visit Diagnoses Not on filedocumented in this encounter Administered Medications Inactive Administered Medications - up to 3 most recent administrations Medication Order MAR Action Action Date Dose Rate Site diphenhydrAMINE (BENADRYL) injection ONCE PRN, Starting on Fri03/09/18 at 1309, Until Fri03/09/18 at 1434, Intra-Operative (Intra-Procedure), Routine Given 03/09/2018 1:09 PM EDT 25 mg Right Arm fentaNYL 50 mcg/mL multi-dose injection ONCE PRN, Starting on Fri03/09/18 at 1300, Until Fri03/09/18 at 1434, Intra-Operative (Intra-Procedure), Routine Given 03/09/2018 1:09 PM EDT 50 mcg Right Arm Given 03/09/2018 1:06 PM EDT 50 mcg Ri ght Arm Given 03/09/2018 1:03 PM EDT 50 mcg Ri ght Arm midazolam (PF) (VERSED) 1 mg/mL multi-dose injection ONCE PRN, Starting on Fri03/09/18 at 1300, Until 03/09/18 at 1434, Intra-Operative (Intra-Procedure), Routine Given 03/09/2018 1:12 PM EDT 0.5 mg Right Arm Given 03/09/2018 1:09 PM EDT 1 mg Ri ght Arm Given 03/09/2018 1:06 PM EDT 1 mg Ri ght Arm documented in this encounter Active and Recently Administered Medications Times are shown in EDT. PRN Medication Order 03/07/2018 03/08/2018 03/09/2018 diphenhydrAMINE (BENADRYL) injection (CANCELED) ONCE PRN, Starting on Fri03/09/18 at 1309, Until Fri03/09/18 at 1434, Intra-Operative (Intra-Procedure), Routine 1309 (Given - Provid er: Alexandra Taylor RN) fentaNYL 50 mcg/mL multi-dose injection (CANCELED) ONCE PRN, Starting on Fri03/09/18 at 1300, Until 03/09/18 at 1434, Intra-Operative (Intra-Procedure), Routine 1300 (Given [...] RN) documented in this encounter Care Teams Senior Care Specialist Relationship Specialty Start Date End Date Laura Ross APRN [address] [place] [address] PCP - General Family Medicine 10/01/17 08/21/22 documented as of this encounter
--- OUTSIDE RECORDS SUMMARY | 2024-06-12 13:43 | XMS_ITS | Encounter Summary ---
Author Organization [facility] [place] [address] Care Team Providers Care Food And Beverage Director Name Role Phone Laura Ross LOUIE Primary Care Provider [phone] Encounter Details Date Type Department Care Team (Latest Contact Info) Description 03/16/2019 9:11 PM EDT - 03/16/2019 11:59 PM EDT [place] [address] Discharge Disposition: Home Social History Tobacco Use [...] PM EDT Hospital Encounter [place] [address] [place] [address] 07/09/2024 8:30 AM EDT Appointment XRay at [address] [address] Alena Pizarro, [place] [address] 07/17/2024 8:00 AM EDT Procedure visit [place] [address] 08/26/2024 8:00 AM EST Office Visit [place] [address] 08/27/2024 9:00 AM EST Clinical Support [place] [address] documented as of this encounter Procedures Procedure Name Priority Date/Time Associated Diagnosis Comments SURGICAL PATHOLOGY REPORT Routine 03/16/2019 5:30 AM EDT documented in this encounter Results * Surgical Pathology Report (03/16/2019 5:30 AM EDT) Final Diagnosis [id number] ? Location: [facility] The signing pathologist has (i) examined the relevant preparation(s) for the specimen(s) and (ii) rendered or confirmed the diagnosis(es). . 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 No goblet cell metaplasia is seen. Electronically signed by: ??Blair MCGOVERN, Tonie Verified: ??03/22/2019 ?Pathologist Performed at: ??-[facility] Dept. 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 Quantity/Size: Four, ranging from 0.2-1.0 cm. Tissue Description: Soft, dukes-white tissues. Sections/Proces sing: Submitted en toto ??in 1 cassette labeled A1. ??apb 03/22/2019 11:36 AM EDT [facility] GI Biopsy 03/16/2019 5:30 AM EDT 03/16/2019 5:30 AM EDT Narrative Resulting Agency Comment Spec In Lab / [facility] Walter Reynaga MD PATHOLOGY/CYTOLOGY O [place] Performing Organization Address City/State/[facility] Co de Phone Number [facility] [place] [place] [address] documented in this encounter Visit Diagnoses Not on filedocumented in this encounter Care Teams Food And Beverage Director Relationship Specialty Start Date End Date Laura Ross APRN [address] [place] [address] PCP - General Family Medicine 10/01/17 08/21/22 documented as of this encounter
--- OUTSIDE RECORDS SUMMARY | 2024-06-12 13:43 | XMS_ITS | Encounter Summary ---
Author Organization [facility] Address [facility] [place] [address] Care Team Providers Care Emt P Name Role Phone Laura Ross LOUIE Primary Care Provider [phone] Reason for Visit * Reason Comments Follow-up Encounter Details Date Type Department Care Team (Latest Contact Info) Description 03/06/2018 3:00 PM EDT Office [place] [address] Sheridan Cassidy MD [facility] [place] [address] Postoperative epigastric abdominal pain; S/P partial gastrectomy Social History Tobacco Use [...] Sign Reading Time Taken Comments Blood Pressure 116/71 03/06/2018 2:56 PM EDT Pulse 70 03/06/2018 2:56 PM EDT Temperature - - Respiratory Rate - - Oxygen Saturation 99% 03/06/2018 2:56 PM EDT Inhaled Oxygen Concentration - - Weight 75.8 kg (167 lb) 03/06/2018 2:56 PM EDT Height - - Body Mass Index 31.57 11/26/2017 10:43 PM EDT documented in this encounter Progress Notes * Sheridan Cassidy MD - 03/06/2018 3:00 PM EDT Mora Bolanos was seen in clinic today after recent admission to an outside hospital with acute epigastric pain. She has been doing quite well after her Magdaleno revision to partial gastrectomy with Analia-en-Y reconstruction. She has been well controlled with her reflux symptoms being essentiallyabated and she continues on PPIs at least for now. She has been eating well but over the last couple of weeks has been having difficulty swallowing. She feels things are getting hung up more frequently and few days ago developed an acute episode of severe epigastric pain which feels like it was radiating through to her back. She denied any jaundice fevers or chills but workup at the outside hospital revealed elevated transaminases with a normal bilirubin and at least on one day slightly elevated alkaline phosphatase. Lipase was normal. Both CT and MR were unremarkable. There was no evidence of biliary obstruction no evidence of internal hernia no evidence of free air or free fluid in the abdomen. They increased her PPIs which seems to be helping and I suspect she has either a gastritis ofher pouch or a stricture\marginal ulcer. I have asked her to stay on high-dose PPIs and we will addCarafate to her regimen. I have arranged for endoscopy on Friday to evaluate this further. documented in this encounter Plan of Treatment Upcoming Encounters Date Type Department Care Team (Late st Contact Info) Description 06/15/2024 3:00 PM EDT Hospital [place] [address] [place] [address] 07/09/2024 8:30 AM EDT Appointment XRay at [address] [address] [place] [address] 07/17/2024 8:00 AM EDT Procedure [place] [address] 08/26/2024 8:00 AM EST Office [place] [address] 08/27/2024 9:00 AM EST Clinical Support [place] [address] documented as of this encounter Visit Diagnoses Diagnosis Postoperative epigastric abdominal pain S/P partial gastrectomy Other postprocedural status documented in this encounter Care Teams Emt P Relationship Specialty Start Date End Date Laura Ross APRN [address] [place] [address] PCP - General Family Medicine 10/01/17 08/21/22 documented as of this encounter
--- OUTSIDE RECORDS SUMMARY | 2024-06-12 13:43 | XMS_ITS | Encounter Summary ---
Author Organization [facility] Address [facility] [place] [address] Care Team Providers Care Automatic Lathe Setter Name Role Phone Laura Ross LOUIE Primary Care Provider [phone] Encounter Details Date Type Department Care Team (Late st Contact Info) Description 12/18/2017 10:40 AM EDT Office [place] [address] Sheridan Cassidy MD [facility] [place] [address] Nedra Ling, [place] [facility] [place] [address] S/P partial gastrectomy Social History Tobacco Use [...] Sign Reading Time Taken Comments Blood Pressure 125/70 12/18/2017 10:30 AM EDT Pulse 83 12/18/2017 10:30 AM EDT Temperature 36.6 ??C (97.9 ??F) 12/18/2017 1 0:30 AM EDT Respiratory Rate 16 12/18/2017 10:3 0 AM EDT Oxygen Saturation 96% 12/18/2017 10: 30 AM EDT Inhaled Oxygen Concentration - - Weight 85.2 kg (187 lb 14.4 oz) 018 10:30 AM EDT Height - - Body Mass Index 35.52 11/26/2017 10:43 PM EDT documented in this encounter Progress Notes * Nedra Ling, RD - 12/18/2017 10:40 AM EDT Nutrition Visit s/p Partial Gastrectomy SUBJECTIVE: Topics Discussed/Patient Concerns: ?? Pt is having a hard time finding unflavored protein powders. OBJECTIVE: Date of Surgery: 11/26/17 Types of Surgery: Laparoscopic revision of magdaleno fundoplasty with partial gastrectomy and Analia-en-Y reconstruction Weight History: Date Weight (lbs) HT BMI Comments 10/20/17 199.6# 61 37.7 Pre-op visit 11/26/17 199.5# EWL % Surgery 12/18/17 187.8# 18% 35.5 1 month post-op 4 months post-op MEDICATIONS: Vitamin/Mineral Supplements (reported by patient): Supplement Type Brand/Form Dosage/Amount Frequency Comments Multivitamin Flintstones 1 pill Twice daily Calcium chews 500 mg twice daily Vitamin B12 SL 1000 mcg daily Iron na Vitamin D3 Food Allergies/Intolerances: Tuna fish Tracking Intake: yes. Paper and pencil logging of intake and any adverse events Daily Oral Intake: Breakfast Scrambled egg AM Snack Lunch 1/4 cup peaches 1/4 cup cottage cheese ground beef (1 oz) PM Snack Dinner 1 oz canned chicken w/gravy 1/4 cup cottage cheese, 1/4 peaches HS Snack Protein- grams/day: 40 g Calories per day: ~400 Hydrating fluids - oz/day: 3 x 24 oz CL daily; decaf coffee Soda: None ETOH: None Caffeine: None Meals per day: 3 Other: ?? Feels full/satisfied after eating: yes ?? Spends at least 20 minutes eating each meal: yes ?? Vomiting/ regurgitation: None. ?? Nausea: Some nausea with food intolerances ?? Constipation/diarrhea: None. BM every 2 days. Exercise: walking daily; yesterday 1.7 miles ASSESSMENT: Patient s/p partial gastrectomy. She is tolerating the diet well with the exception of protein drinks. Provided pt with samples of protein powders she can mix into other foods as she was having a hard time finding unflavored protein powders in her area. She is meeting fluid goals and is taking the recommended supplements. PLAN: ?? Evaluation by Dr. Cassidy today. ?? Provided support/encouragement and reinforced importance of meeting nutritional goals. ?? Reviewed nutrition and vitamin and mineral supplement recommendations. ?? Provided samples of unflavored protein powder. ?? Follow up in 3 months with nurse practitioner. * Sheridan Cassidy MD - 12/18/2017 10:40 AM EDT Mora was seen in follow-up after her Magdaleno revision and conversion to subtotal gastrectomy with Analia-en-Y reconstruction. I am pleased to say that she is feeling much better and is free of any reflux. She has no swallowing difficulties and has been doing well with her diet. She met with her dietitian today to further discuss progressing of her diet. She has lost a total of 15 pounds since surgery. I have encouraged her to remain on supplements lifelong and she may try eventually weaning her PPI. Her wound sites have healed well with no signs of infection or hernia. She will follow-up as needed. Since her last biopsy did not show Queen's but she has had a previous biopsy showing Queen's, I suggested we do a follow-up endoscopy with biopsy in the next 3 years. documented in this encounter Plan of Treatment Upcoming Encounters Date Type Department Care Team (Late st Contact Info) Description 06/15/2024 3:00 PM EDT Hospital [place] [address] [place] [address] 07/09/2024 8:30 AM EDT Appointment XRay at [address] [phone] [place] [address] 07/17/2024 8:00 AM EDT Procedure [place] [address] 08/26/2024 8:00 AM EST Office [place] [address] 08/27/2024 9:00 AM EST Clinical [place] [address] documented as of this encounter Visit Diagnoses Diagnosis S/P partial gastrectomy Other postprocedural status documented in this encounter Care Teams Automatic Lathe Setter Relationship Specialty Start Date End Date Laura Ross APRN [address] [place] [id number] PCP - General Family Medicine 10/01/17 08/21/22 documented as of this encounter
--- OUTSIDE RECORDS SUMMARY | 2024-06-12 13:43 | XMS_ITS | Encounter Summary ---
Author Organization [facility] [place] [address] Care Team Providers Care Deck Steward Name Role Phone Laura Ross LOUIE Primary Care Provider [phone] Encounter Details Date Type Department Care Team (Latest Contact Info) Description 03/09/2018 2:45 PM EDT Laboratory Appointment Lab [address] [place] [phone] Upper abdominal pain Social History Tobacco Use [...] PM EDT Hospital [place] [address] Alena [place] [address] 07/09/2024 8:30 AM EDT Appointment XRay at [address] [phone] Calvino, Alena M, [facility] [place] [address] 07/17/2024 8:00 AM EDT Procedure [place] [address] 08/26/2024 8:00 AM EST Office [place] [address] 08/27/2024 9:00 AM EST Clinical [place] [address] documented as of this encounter Procedures Procedure Name Priority Date/Time Associated Diagnosis Comments LIPASE Routine 03/09/2018 2:39 PM EDT Upper abdominal pain AMYLASE Routine 03/09/2018 2:39 PM EDT Upper abdominal pain HEPATIC FUNCTION PANEL Routine 03/09/2018 2:39 PM EDT Upper abdominal pain documented in this encounter Results * Lipase (03/09/2018 2:39 PM EDT) Lipase 40 0 - 60 unit/L [facility] Blood specimen (specimen) 03/09/2018 2:39 PM EDT 03/09/2018 2:48 PM EDT Narrative Resulting Agency Comment Spec In Lab Sheridan Cassidy MD CHEMISTRY ORDERABLES Performing Organization Address City/[facility]/ZIP Co de Phone Number [facility] [place] [address] * Amylase (03/09/2018 2:39 PM EDT) Amylase 51 28 - 100 unit/L [facility] Blood specimen (specimen) 03/09/2018 2:39 PM EDT 03/09/2018 2:48 PM EDT Narrative Resulting Agency Comment Spec In Lab Sheridan Cassidy MD CHEMISTRY ORDERABLES Performing Organization Address [facility]/ZIP Co de Phone Number [facility] [place] [address] * (ABNORMAL) Hepatic Function Panel (03/09/2018 2:39 PM EDT) Protein, Total 6.5 6.1 - 8.0 gm/dL [facility] Albumin 4.1 3.2 - 5.2 gm/dL [facility] Aspartate Aminotransferase 24 0 - 30 unit/L [facility] Alanine Aminotransferase 82(H) 0 - 30 unit/L [facility] Alkaline Phosphatase 118(H) 40 - 104 unit/L [facility] Bilirubin, Total 0.4 0.2 - 1.3 mg/dL [facility] Bilirubin, Direct 0.1 0.0 - 0.3 mg/dL [facility] Blood specimen (specimen) 03/09/2018 2:39 PM EDT 03/09/2018 2:48 PM EDT Narrative Resulting Agency Comment Spec In Lab Sheridan Cassidy MD CHEMISTRY ORDERABLES Performing Organization Address [facility] Co de Phone Number [facility] [place] [address] documented in this encounter Visit Diagnoses Diagnosis Upper abdominal pain Abdominal pain, other specified site documented in this encounter Care Teams Deck Steward Relationship Specialty Start Date End Date Laura Ross APRN [address] [place] [id number] PCP - General Family Medicine 10/01/17 08/21/22 documented as of this encounter
--- OUTSIDE RECORDS SUMMARY | 2024-06-12 13:43 | XMS_ITS | Encounter Summary ---
Author Organization [facility] Address [facility] [place] [address] Care Team Providers Care Ski Molder Name Role Phone Laura Ross LOUIE Primary Care Provider [phone] Reason for Visit * Auth/Cert Specialty Diagnoses / Procedures Referred By Martha broussard Referred To Contact Diagnoses FAILED FUNDOPLICATION Procedures PRO LAP, ESOPHAGUS, OTHER PROC PRO LAP, STOMACH, OTHER, W/O TUBE PRO UPPER GI ENDOSCOPY, DIAGNOSTIC LAPAROSCOPIC REVISION OF GABRIELLA FUNDOPLASTY (WRVU *) LAPAROSCOPIC GASTRECTOMY, PARTIAL, W EVIN-EN-Y RECONSTRUCTION (WRVU *) ENDOSCOPY, UPPER GI, DIAGNOSTIC, WITH OR WITHOUT SPECIMENS Referral ID Status Reason Start Date Expiration Date Visits Re quested Visits Authorized [id number] 1 1 Encounter Details Date Type Department Care Team (Latest Contact Info) Description 11/26/2017 1:39 PM EDT - 11/29/2017 6:46 PM EDT Hospital Encounter 2 [place] [address] Sheridan Mosher MD [facility] [place] [address] Discharge Disposition: Home Social History Tobacco Use [...] Sign Reading Time Taken Comments Blood Pressure 134/81 11/29/2017 8:11 AM EDT Pulse 78 11/28/2017 3:58 PM EDT Temperature 36.9 ??C (98.4 ??F) 11/29/2017 8:11 AM ED T Respiratory Rate 18 11/29/2017 8:11 AM EDT Oxygen Saturation 98% 11/29/2017 8:11 AM EDT Inhaled Oxygen Concentration - - Weight 90.5 kg (199 lb 8.3 oz) 11/26/2017 10:43 PM EDT Height 154.9 cm (5' 0.98) 11/26/2017 10:43 PM E DT Body Mass Index 37.72 11/26/2017 10:43 PM EDT documented in this encounter Discharge Summaries * Lynda De Santiago MD - 11/28/2017 4:08 PM EDT General Surgery Discharge Summary Patient Name: Mora Bolanos Patient Age: 42 y.o. Birthdate: 1975 Admit date: 11/26/2017 Discharge date and time: 11/29/2017 Attending Physician: Sheridan Mosher MD Primary Diagnosis: Failed Fundoplication Secondary Diagnosis: Type 2 DM; Obesity Operations and Procedures: Laparoscopic Revision of Gabriella Fundoplasty with Partial Gastrectomy hnsIunf-de-N Reconstruction and Intraoperative Upper Endoscopy Surgeons: Surgeon(s) and Role: * Sheridan Mosher MD - Primary * Ange Cordon MD - Fellow History of Present Illness: Mora Bolanos is a 42 y.o. female well know to Dr. Mosher who returned to the clinic for follow-up regarding chronic GERD and abdominal pain. She has had GERD for nearly 2 decades and initially underwent laparoscopic Gabriella fundoplication on September 2010 after which she was completely symptom free for a period of time. She then moved to [place] and at some point experienced food impaction for which she underwent emergent take-down of her previous wrap. Her GERD symptoms recurred thereafter and she had a redo Gabriella fundoplication in November 2012. Unfortunately, libbyhas had persistent epigastric pain, post-prandial bloating and nausea, dysphagia and symptoms of heartburn since. She was last seen by Dr. Mosher in August 2016 at which time she was placed on an erythromycin trial, which she states did not alleviate her symptoms. Currently, her primary GERD symptoms including sub-sternal discomfort after eating, early satiety, post-prandial nausea and gas bloat,and frequent clearing of her throat with hoarseness. ?? She also has developed a generalized abdominal feeling of tearing that is mild and waxes and wanes over the last 6 months or so. She continues to gain weight, 27lbs in the last year, and currently weights 193lbs despite being stable at 146lbs for many years prior. Over the summer she participatedin a strict medically supervised weight loss with an REPLANTING MACHINE OPERATOR in [place] for 3 months and still gained weight. The dietitian referred her for Endocrine evaluation given this result. She was running frequentlyand in the last few years was able to complete half-marathon races, however since May or so she has experienced so much joint pain from her weight gain that she is now limited to walking. She also endorses being told she has osteoporosis or osteopenia despite her age of 42. 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 She continues to be Vitamin D deficient despite 50,000U weekly supplementation. She is very discouraged by all of this. Hospital Course: Mora Bolanos is a 42 y.o. female who was admitted on 11/26/2017 for laparoscopic revision of gabriella fundoplasty with partial gastrectomy and Evin-en-Y reconstruction and intraoperative upper endoscopy. The operative course was uneventful. On POD#1 she was started on a Gastric bypass stage I diet, and when she tolerated that she was advanced to a Gastric bypass stage II diet.She was changed to oral pain medications and the JUDICIAL LAW CLERK was discontinued on POD# 1. She was voiding without difficulty. On POD# 1 & 2 the dressings were dry and intact and the wounds were benign. She developed blurry vision associated with a headache on POD# 2 that was suspected of being from the use of Scopolamine. This was removed on POD# 2 and the blurry vision improved over the next 24hours.She was also noted to have worsening of a cough on POD# 2, so a CXR was ordered that demonstrated no cardiopulmonary abnormalities. She did not have a bowel movement prior to discharge but was passing flatus and taking PO without difficulty. Prior to discharge on POD# 3 Mora Bolanos was afebrile, with stable vital signs. On POD# 3, she was discharged to home in stable condition. Vital Signs: Last value Range last 24hrs Temperature Temp: 36.9 ??C (98.4 ??F) Temp: [36.9 ??C (98.4 ??F)-37.2 ??C (99 ??F)] Heart Rate Heart Rate: 78 Heart Rate: [78-91] Blood Pressure BP: 134/81 BP: (112-134)/(56-81) Respiratory Rate Resp: 18 Resp: [14-18] SpO2 SpO2: 98 % SpO2: [94 %-98 %] Pertinent Lab Data: Recent Labs 03/17/18 0350 03/16/18 0242 //18 0440 WBC 9.6* 9.3 15.1* HGB 11.7 10.5* 12.3 HCT 36.8 32.7* 37.3 PLATELET 216 212 281 Recent Labs 03/17/18 0350 03/16/18 0242 //18 0440 NA 144 142 139 K 4.0 3.7 Not Perf CL 106 104 100 CO2 28 27 27 BUN 4* 5* 7* CREATININE 0.66* 0.73 0.79 GLUCOSE 100 94 -- CALCIUM 9.0 7.9* -- MAGNESIUM -- -- 0.81 PHOS -- -- 4.4 Physical Exam: General: NAD, resting comfortably, pleasant, conversant HEENT: PERRL, anicteric sclerae CVS: RRR Pulm: CTAB Abd: soft, appropriately tender, non-distended. 6 port sites without evidence of edema, erythema orecchymosis. No drainage or s/s of infection noted. : no problems with voiding Skin: warm, dry Ext: no c/c/e Neuro: CN 2-12 grossly intact, nonfocal,moving all four extremities spontaneously Imaging: No results found. Condition at discharge: Stable Mental Status: awake and alert, oriented x 3 Medications: Your Medications New Medications Dose Details acetaminophen 650 mg/20.3 mL Soln Commonly known as: TYLENOL Take 20.3 mLs by mouth every 4 hours. 650 mg Refills: 0 omeprazole 40 mg Cpdr Commonly known as: PriLOSEC Take 1 capsule by mouth daily for 90 days. Open and mix granules 40 mg Quantity: 90 capsule Refills: 11 ondansetron 4 mg Tbdl Commonly known as: ZOFRAN-ODT Take 1 tablet by mouth every 8 hours as needed for Nausea. 4 mg Quantity: 20 tablet Refills: 1 oxyCODONE 5 mg/5 mL Soln Commonly known as: ROXICODONE Take 5 mLs by mouth every 4 hours as needed for Pain. 5 mg Quantity: 75 mL Refills: 0 Continued medications with new dosing Dose Details * metFORMIN 500 mg Tablet sr Commonly known as: GLUCOPHAGE-XR Take 1 tablet by mouth nightly. Hold for 1 month while taking crushed medication What changed: additional instructions 500 mg Quantity: 30 tablet Refills: 12 * metFORMIN 500 mg Tab Commonly known as: GLUCOPHAGE Take 1 tablet by mouth nightly. Crush What changed: You were already taking a medication with the same name, and this prescription was added. Make sure you understand how and when to take each. 500 mg Quantity: 60 tablet Refills: 12 * Notice: This list has 2 medication(s) that are the same as other medications prescribed for you. Read the directions carefully, and ask your doctor or other care provider to review them with you. Continued medications, unchanged Dose Details EPINEPHrine 0.15 mg/0.15 mL Cmpk Inject into the muscle as needed. Refills: 0 multivitamin Tab Commonly known as: THERAGRAN Take 1 tablet by mouth daily. 1 tablet Refills: 0 STOPPED Medications cholecalciferol (Vitamin D3) 50,000 unit Cap ibuprofen 800 mg Tab Commonly known as: ADVIL;MOTRIN Disposition: Home Allergies: Allergies Allergen Reactions ??? Onion Anaphylaxis ??? Bupropion ??? Bupropion Hcl Other (See Comments) serum sickness ??? Metoclopramide Hcl Other (See Comments) Unknown Outpatient Services/Studies: No discharge procedures on file. Scheduled Appointments: Future Appointments and Orders Future Appointments Provider Department Dept Phone 12/10/2017 1:00 PM Dorinda Covington MD [facility] [phone] 12/18/2017 10:40 AM Nedra Ling LD; Sheridan Mosher MD General Surgery at [facility] [phone] 02/25/2018 2:00 PM Nina Ibanez Hematology/Oncology at [facility] [phone] Instructions Given to Patient at Discharge: SURGERY DISCHARGE INFORMATION SURGERY SUPPORT TEAM CONTACT NUMBERS (Mon-Fri 8am - 5pm): General Surgery [phone] Surgeons: Karen Cherry and Ange [phone] Dietitians: [phone] Outside of regular business hours, including weekends and holidays: Ask for General Surgery resident front end web developer [phone] FOR EMERGENCIES: CALL 911 (trouble breathing, chest pain, rapid heart rate >120 beats per minuteor severe abdominal pain) CALL THE SURGERY TEAM FOR ANY OF THE FOLLOWING: ?? Signs and symptoms of infection such as: - Redness or swelling or new significant drainage from wounds - Drainage or bleeding from wounds - Fever over 101 degrees Fahrenheit, or shaking chills ?? Persistent diarrhea or vomiting or inability to keep down food or fluids down in a 24 hour period. ?? Signs / symptoms of a blood clot: leg swelling, redness, or pain, shortness of breath ?? Problems with urination or constipation, worsening abdominal pain not controlled with pain medication ?? Any concerns you may have after your surgery Follow up Information: You have a surgical followup appointment with the Surgery Team in 3 weeks at the General Surgery Outpatient Clinic ([address], [facility] Future Appointments Date Time Provider Department Center 12/10/2017 1:00 PM Dorinda Covington MD [facility] [address] [place] [address] CLIN 12/18/2017 10:40 AM Sheridan Mosher MD [facility] 02/25/2018 2:00 PM Nina Ibanez [facility] BATHING AND WOUND CARE: ?? You may shower 2 days after surgery ?? Wash incisions with unscented mild soap ?? Rinse, pat dry and leave open to air. ?? Remove Steri-strips if they don't fall off by 7-10 days after discharge. Pat dry if they become wet. ?? Do not soak wound (no baths, no swimmings) for 3 weeks after surgery ACTIVITY, LIFTING AND DRIVING: ?? Avoid lifting any objects greater than 15 lbs for the next 3-4 weeks. ?? Do not drive for 2 weeks. After [address] when comfortable and not taking narcotic pain medicine. DIET: ?? Follow Stage II diet for two weeks. ?? Keep a log of your intake: Daily goals are: 48-64 ounces of fluids and 60 grams of protein. MEDICATIONS: ?? For 2 WEEKS: LARGE pills (bigger than the size of a calcium pill) must be crushed, Capsules mustbe opened onto applesauce or pudding. ?? Pills smaller than the size of a calcium DO NOT need to be crushed. ?? Not all medications can be crushed. Check with your pharmacist if unsure. IF YOU ARE TREATED FOR OBSTRUCTIVE SLEEP APNEA: ?? IMPORTANT - you MUST use your CPAP/ BIPAP after surgery while sleeping at night and also when napping during the day because discharge medications can decrease your breathing. ?? Follow up with the Sleep Center if pressure seems to be too high. ULCER PREVENTION: ?? IMPORTANT - you must take acid suppressing medication for 3 MONTHS after surgery. This is taken to prevent ulcers at your surgical sites internally, even if you do not have heartburn. ?? omeprazole 20 mg daily (or another medication you may currently take for heartburn/reflux that has been discussed with Bariatric Team) ?? Omeprazole capsules contain enteric-coated, delayed-release granules. Because these granules should not be chewed or crushed, you must OPEN the capsules, sprinkle the enteric-coated granules on applesauce or yogurt. Alternatively, you may take the granules with apple juice, or swallow them quickly with water. Follow any of these methods with additional water to ensure that you have swallowed the granules completely. ?? If your insurer does not cover omeprazole, or similar medications such as pantoprazole, you mustpurchase these medications over the counter. ?? You will continue this after the initial 3 month course if you have heartburn or reflux PAIN MEDICATION: ?? Your pain should lessen with each day out from surgery. Over the next couple of days you should be requiring less narcotic medication to control your pain, and eventually you will not need any at all. ?? Take the medication exactly as it is prescribed and make sure to read all instructions that comewith the medication. Take only as needed. ?? You may adjunct your pain control using scheduled Tylenol (acetaminophen), use as directed. Do NOT use NSAIDS (ibuprofen, Motrin, Aleve, Toradol, aspirin, etc.) to adjunct your pain control. ?? Opioids can slow reaction time, cause drowsiness or cloud judgement. You MUST NOT DRIVE while taking narcotic pain medication. ?? Taking more than the prescribed amount of narcotic or combining with alcohol or drugs can cause you to stop breathing, leading to coma, brain damage or . ?? Using this drug may cause addiction. While addiction is more common in people with a personal orfamily history of addiction, it can occur in anyone. ?? Opioids are at risk of being diverted by anyone with access to your home. Opioids should be stored in a safe and secure place, such as a locked cabinet or safe. ?? Unused opioids should be disposed of appropriately. They may be returned to a take-back location, or mixed with a small amount of water and poured over an undesirable waste such as used coffee grounds or cat litter. ?? Opioid pain medications can cause significant constipation. You should use a stool softener suchas Miralax to address this. OTHER MEANS FOR PAIN RELIEF: Other than medications. ?? Learn deep breathing exercises or meditation to help you relax ?? Reduce stress ?? Your body produces natural endorphins from exercise which can help reduce pain. Even walking is considered exercise. Talk with your provider/surgical team about what exercises are appropriate for you to perform. ?? You may use a heating pad or apply ice to the painful area unless specifically discouraged by the surgical team. ?? Find ways to distract yourself from the pain. MEDICATIONS TO AVOID FOR TWO MONTHS AFTER SURGERY: ?? Discontinue anti-inflammatory non-steroidal medications, such as Advil, Aleve, etc. Refer to Medications that may increase the risk of bleeding in handbook. ?? If you do take aspirin for your heart or to prevent strokes, continue as prescribed. WOMEN OF CHILDBEARING AGE: ?? Fertility may increase with weight loss. Avoid for 18-24 months after bariatric surgery. ?? Condoms alone are not acceptable as a form of control. Do not take control pills forthe first month after surgery. MANAGEMENT OF DIABETES MELLITUS AFTER BARIATRIC SURGERY: ?? IMPORTANT to check blood sugars four times a day, fasting blood surgars, 2 hours after meals andas needed when feeling unwell. ?? Discontinue taking Glucophage 500mg daily. Please contact your PCP to discuss this change. ?? Follow up with primary care provider or business employment specialist in 1-2 weeks in order to adjust yourchanging diabetes treatment requirements. PATIENTS WITH HIGH BLOOD PRESSURE: ?? Monitor your blood pressure regularly. ?? If you feel dizzy and have been drinking 48-64 ounces of fluid, have your blood pressure checked. ?? If your blood pressure is low, call your primary care provider. Keep a log to bring to your PCP appointments. PATIENTS ON ANTI-DEPRESSANT OR MENTAL HEALTH MEDICATIONS: ?? Do not stop or decrease your medications unless advised. ?? Ongoing counseling is encouraged. VITAMIN AND MINERAL SUPPLEMENTATION: Vitamin B12 500 mcg pill daily Complete multivitamin w/ minerals Chewable, one pill twice daily. After 2 weeks may take regular vitamin pills. Calcium Calcium citrate 600 mg with vitamin D 400 units twice a day between meals. Iron with vitamin C Take iron as instructed per Handbook - (only if you have anemia, iron deficiency or regular menses) FOLLOW-UP CARE: ?? It is IMPORTANT to see your Primary Care Physician or PCP within 10-14 days after surgery for wound check and vital signs check, and to discuss specific medical management as referenced above. ?? You should follow up with your surgeon and dietitian at 3-4 weeks after surgery. ?? You will follow up with the dietitian and Bariatric nurse practitioner at 4, 12, 18, and 24 months, then yearly for life. Signed: Lynda De Santiago MD [facility] [phone] Primary Care Physician: Laura Ross APRN [address] [place] [id number] documented in this encounter Discharge Instructions * Patient Instructions* Ange Cordon MD - 11/28/2017 4:07 PM EDT SURGERY DISCHARGE INFORMATION SUPPORT TEAM CONTACT NUMBERS (Mon-Fri 8am - 5pm): General Surgery and Bariatric Surgery [phone] Surgeons: Karen Cherry and Ange [phone] Marketing Clerk: [phone] Dietitians: [phone] Outside of regular business hours, including weekends and holidays: Ask for General Surgery resident front end web developer [phone] FOR EMERGENCIES: CALL 911 (trouble breathing, chest pain, rapid heart rate >120 beats per minuteor severe abdominal pain) CALL THE TEAM FOR ANY OF THE FOLLOWING: ?? Signs and symptoms of infection such as: - Redness or swelling or new significant drainage from wounds - Drainage or bleeding from wounds - Fever over 101 degrees Fahrenheit, or shaking chills ?? Persistent diarrhea or vomiting or inability to keep down food or fluids down in a 24 hour period. ?? Signs / symptoms of a blood clot: leg swelling, redness, or pain, shortness of breath ?? Problems with urination or constipation, worsening abdominal pain not controlled with pain medication ?? Any concerns you may have after your surgery Follow up Information: You have a surgical followup appointment with The Bariatric Surgery Team in 3 weeks at the General Surgery Outpatient Clinic ([address] , [facility]). Future Appointments Date Time Provider Department Center 12/10/2017 1:00 PM Dorinda Covington MD [facility] [address] [place] [address] CLIN 12/18/2017 10:40 AM Sheridan Mosher MD [facility] 02/25/2018 2:00 PM Nina Ibanez [place] [facility] BATHING AND WOUND CARE: ?? You may shower 2 days after surgery ?? Wash incisions with unscented mild soap ?? Rinse, pat dry and leave open to air. ?? Remove Steri-strips if they don't fall off by 7-10 days after discharge. Pat dry if they become wet. ?? Do not soak wound (no baths, no swimmings) for 3 weeks after surgery ACTIVITY, LIFTING AND DRIVING: ?? For laparoscopic surgery: there are no lifting restrictions. Lift when you feel comfortable. ?? Do not drive for 2 weeks. After [address] when comfortable and not taking narcotic pain medicine. DIET: ?? Follow Stage II diet for two weeks. ?? Keep a log of your intake: Daily goals are: 48-64 ounces of fluids and 60 grams of protein. MEDICATIONS: ?? For 2 WEEKS: LARGE pills (bigger than the size of a calcium pill) must be crushed, Capsules mustbe opened onto applesauce or pudding. ?? Pills smaller than the size of a calcium DO NOT need to be crushed. ?? Not all medications can be crushed. Check with your pharmacist if unsure. BLOOD CLOT PREVENTION: ?? You do not meet scoring criteria to be discharged on medication to prevent blood clots. Be active, walk at least 4 times a day and do blood clot prevention exercises in your handbook on page 82. IF YOU ARE TREATED FOR OBSTRUCTIVE SLEEP APNEA: ?? IMPORTANT - you MUST use your CPAP/ BIPAP after surgery while sleeping at night and also when napping during the day because discharge medications can decrease your breathing. ?? Follow up with the Sleep Center if pressure seems to be too high. ULCER PREVENTION: ?? IMPORTANT - you must take acid suppressing medication for 3 MONTHS after surgery. This is taken to prevent ulcers at your surgical sites internally, even if you do not have heartburn. ?? omeprazole 20 mg daily (or another medication you may currently take for heartburn/reflux that has been discussed with Bariatric Team) ?? Omeprazole capsules contain enteric-coated, delayed-release granules. Because these granules should not be chewed or crushed, you must OPEN the capsules, sprinkle the enteric-coated granules on applesauce or yogurt. Alternatively, you may take the granules with apple juice, or swallow them quickly with water. Follow any of these methods with additional water to ensure that you have swallowed the granules completely. ?? If your insurer does not cover omeprazole, or similar medications such as pantoprazole, you mustpurchase these medications over the counter. ?? You will continue this after the initial 3 month course if you have heartburn or reflux GALLSTONE PREVENTION: ?? If you have had your gallbladder REMOVED - you do not need this medication. ?? If you have your gallbladder after Bariatric Surgery - you must take start taking Ursodiol (Actigall) 300 mg twice a day to prevent gallstones. You may START this medication 2 weeks after surgery for a duration of 6 months. After that, you may stop this medication unless otherwise directed. PAIN MEDICATION: ?? Your pain should lessen with each day out from surgery. Over the next couple of days you should be requiring less narcotic medication to control your pain, and eventually you will not need any at all. ?? Take the medication exactly as it is prescribed and make sure to read all instructions that comewith the medication. Take only as needed. ?? You may adjunct your pain control using scheduled Tylenol (acetaminophen), use as directed. Do NOT use NSAIDS (ibuprofen, Motrin, Aleve, Toradol, aspirin, etc.) to adjunct your pain control. ?? Opioids can slow reaction time, cause drowsiness or cloud judgement. You MUST NOT DRIVE while taking narcotic pain medication. ?? Taking more than the prescribed amount of narcotic or combining with alcohol or drugs can cause you to stop breathing, leading to coma, brain damage or . ?? Using this drug may cause addiction. While addiction is more common in people with a personal orfamily history of addiction, it can occur in anyone. ?? Opioids are at risk of being diverted by anyone with access to your home. Opioids should be stored in a safe and secure place, such as a locked cabinet or safe. ?? Unused opioids should be disposed of appropriately. They may be returned to a take-back location, or mixed with a small amount of water and poured over an undesirable waste such as used coffee grounds or cat litter. ?? Opioid pain medications can cause significant constipation. You should use a stool softener suchas Miralax to address this. OTHER MEANS FOR PAIN RELIEF: Other than medications. ?? Learn deep breathing exercises or meditation to help you relax ?? Reduce stress ?? Your body produces natural endorphins from exercise which can help reduce pain. Even walking is considered exercise. Talk with your provider/surgical team about what exercises are appropriate for you to perform. ?? You may use a heating pad or apply ice to the painful area unless specifically discouraged by the surgical team. ?? Find ways to distract yourself from the pain. MEDICATIONS TO AVOID FOR TWO MONTHS AFTER SURGERY: ?? Discontinue anti-inflammatory non-steroidal medications, such as Advil, Aleve, etc. Refer to Medications that may increase the risk of bleeding in handbook. ?? If you do take aspirin for your heart or to prevent strokes, continue as prescribed. WOMEN OF CHILDBEARING AGE: ?? Fertility may increase with weight loss. Avoid for 18-24 months after bariatric surgery. ?? Condoms alone are not acceptable as a form of control. Do not take control pills forthe first month after surgery. MANAGEMENT OF DIABETES MELLITUS AFTER BARIATRIC SURGERY: ?? IMPORTANT to check blood sugars four times a day, fasting blood surgars, 2 hours after meals andas needed when feeling unwell. For blood sugar less than 150, do not restart diabetes medications. ?? If the Diabetes Team saw you during your hospital stay, they have listed specific recommendations elsewhere in your discharge paperwork. Please refer to their specific diabetes care recommendations. ?? Patients on oral diabetic medication: If blood sugar is over 200 on more than 3 checks, call your primary care physician or diabetic specialist for recommendations. For patients on insulin and oral diabetic medications: If blood sugar is over 200 on 3 checks, call your primary care doctor or diabetic specialist for recommendations. ?? Follow up with primary care provider or business employment specialist in 1-2 weeks in order to adjust yourchanging diabetes treatment requirements. PATIENTS WITH HIGH BLOOD PRESSURE: ?? Monitor your blood pressure regularly. ?? If you feel dizzy and have been drinking 48-64 ounces of fluid, have your blood pressure checked. ?? If your blood pressure is low, call your primary care provider. Keep a log to bring to your PCP appointments. PATIENTS WHO TAKE DIURETICS (WATER PILLS): ?? Check with your surgical team prior to discharge for instructions. In general, this medication is stopped after surgery, as you are at risk for dehydration after Bariatric Surgery. ?? Monitor yourself for any swelling of legs or gain of water weight after medication is stopped.Call your primary care doctor if you notice this. PATIENTS ON ANTI-DEPRESSANT OR MENTAL HEALTH MEDICATIONS: ?? Do not stop or decrease your medications unless advised. ?? Ongoing counseling is encouraged. VITAMIN AND MINERAL SUPPLEMENTATION: Vitamin B12 500 mcg pill daily Complete multivitamin w/ minerals Chewable, one pill twice daily. After 2 weeks may take regular vitamin pills. Calcium Calcium citrate 600 mg with vitamin D 400 units twice a day between meals. Iron with vitamin C Take iron as instructed per Handbook - (only if you have anemia, iron deficiency or regular menses) FOLLOW-UP CARE: ?? It is IMPORTANT to see your Primary Care Physician or PCP within 10-14 days after surgery for wound check and vital signs check, and to discuss specific medical management as referenced above. ?? You should follow up with your surgeon and dietitian at 3-4 weeks after surgery. ?? You will follow up with the dietitian and Bariatric nurse practitioner at 4, 12, 18, and 24 months, then yearly for life. 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 01/11/2011 omeprazole (PRILOSEC) 40 mg Capsule, Delayed Release(E.C.) Take 1 capsule by mouth daily for 90 days. Open and mix granules 90 capsule 11 11/28/2017 02/26/2018 metFORMIN (GLUCOPHAGE-XR) 500 mg Tablet Sustained Release 24 hr Take 1 tablet by mouth nightly. Hold for 1 month while taking crushed medication 30 tablet 12 11/28/2017 01/02/2021 oxyCODONE (ROXICODONE) 5 mg/5 mL Solution Take 5 mLs by mouth every 4 hours as needed for Pain. 75 mL 11/28/2017 12/18/2017 metFORMIN (GLUCOPHAGE) 500 mg Tablet Take 1 tablet by mouth nightly. Crush 60 tablet 12 11/28/2017 01/02/2021 ondansetron (ZOFRAN-ODT) 4 mg Tablet, Rapid Dissolve Take 1 tablet by mouth every 8 hours as needed for Nausea. 20 tablet 1 11/28/2017 01/02/2021 multivitamin (THERAGRAN) Tablet Take 1 tablet by mouth daily. 01/02/2021 documented as of this encounter Progress Notes * Kaitlyn Buckner RN - 11/29/2017 6:46 PM EDT Patient discharged at this time. * Kaitlyn Buckner RN - 11/29/2017 6:33 PM EDT Patient Name: Mora Bolanos Patient Age: 42 y.o. Birthdate: 1975 Admit date: 11/26/2017 Attending Physician: Sheridan Mosher MD Patient is planning to discharge this evening. All discharge paperwork is completed, patient will discharge home with NO services. Patient was able to fill prescriptions at outpatient pharmacy. Verbalization of understanding of the AVS. Questions answered. IV access removed. * Michaela Hansen PA - 11/28/2017 11:40 AM EDT Minimally Invasive Surgery Inpatient Progress Note ID: Mora Bolanos is a 42 y.o. female s/p laparoscopic revision of gabriella fundoplasty with partial gastrectomy and Evin-en-Y reconstruction and intraoperative upper endoscopy. Now 2 Days Post-Op. 24hr events: ?? No acute events ?? New onset changes in vision; suspected to be from use of Scopolamine ?? Headache relieved partially with Toradol ?? Continues with worsening cough Subjective: She continues to be very sore, and she states the coughing is not helping the pain in her abdomen. She does feel the cough is from deep, and it seems to be worsening. She has also had a change in her vision, that seems to have correlated with the use of a Scopolamine patch. The vision changes are associated with a headache. She states she was not able to see clearly things close up, but recently she is also having blurry vision with objects far away. She used Toradol for the headache, and she states it did offer her some relief. She is tolerated a stage II diet, and she denies anynausea other than with increased pain. She is voiding without problems. She is also ambulating without problems. She currently denies v/cp/sob. O: Last value Range last 24hrs Temperature Temp: 37.2 ??C (99 ??F) Temp: [37 ??C (98.6 ??F)-37.4 ??C (99.3 ??F)] Heart Rate Heart Rate: 90 Heart Rate: [75-92] Blood Pressure BP: 114/66 BP: (101-114)/(52-66) Respiratory Rate Resp: 18 Resp: [16-18] SpO2 SpO2: 91 % SpO2: [88 %-98 %] 11/27 0701 - 11/28 0700 In: 4067.2 [P.O.:2939; I.V.:1128.2] Out: 2300 [Urine:2300] Physical Exam: General: NAD, resting comfortably, pleasant, conversant HEENT: PERRL, anicteric sclerae CVS: RRR Pulm: CTAB Abd: soft, appropriately tender, non-distended. 6 port sites without evidence of edema, erythema orecchymosis. No drainage or s/s of infection noted. : no problems with voiding Skin: warm, dry Ext: no c/c/e Neuro: non-focal, moving all four extremities spontaneously Labs: Recent Labs 11/28/17 0242 11/27/17 0440 WBC 9.3 15.1* HGB 10.5* 12.3 HCT 32.7* 37.3 PLATELET 212 281 Recent Labs 11/28/17 0242 11/27/17 0440 NA 142 139 K 3.7 Not Perf CL 104 100 CO2 27 27 BUN 5* 7* CREATININE 0.73 0.79 GLUCOSE 94 -- CALCIUM 7.9* -- MAGNESIUM -- 0.81 PHOS -- 4.4 Microbiology: None New Studies: CXR from 11/28/17 ASSESSMENT: Mora Bolanos is a 42 y.o. female s/p laparoscopic revision of gabriella fundoplasty with partial gastrectomy and Evin-en-Y reconstruction and intraoperative upper endoscopy. Now 2 DaysPost-Op Progressing post-operatively with new onset of headache and blurry vision. Suspect blurry vision isfrom Scopolamine use, this has been discontinued. Increasing cough, will obtain CXR to determine cause. PLAN: NEURO: Pain control with elixir Tylenol and Oxycodone. CV: no acute issues. PULM: Encourage frequent ambulation and IS use. CXR to determine possible cause of cough GI: Diet Gastric Bypass diet Stage II-Full : no problems voiding; monitor UOP closely FEK: HLIv; monitor lytes and replace prn ID: no indication of active infection HEME: no indication of active bleeding ENDO: insulin sliding scale while inpatient; will resume home Glucophage after d/c PROPHYLAXIS: Lovenox for DVT; DISPO: Floor status, Full Code Plan for discharge tomorrow based on progress. RICHARD PHELPS 11/28/2017 * Isabel Hammond RN - 11/28/2017 7:55 AM EDT Patient reports significant headache and dizziness I see things moving in the hallway, it all looks blurry. Neuro assessment, benign. Reports HX of migraines, denies taking any medications to treat migraines. VSS. paged. * Nedra Ling RD - 11/27/2017 1:30 PM EDT Patient Name: Mora Bolanos Patient Age: 42 y.o. Birthdate: 1975 Admit date: 11/26/2017 Attending Physician: Sheridan Mosher MD Per pt request, checked in to review dietary guidelines. Reviewed diet Stages II-IV. Reminded pt to chew food well, take 20-30 minutes to eat, and to not drink with meals. Advised she would start out eating 1/2 cup food at a time and build over the course of 4-6 months to eating 1-1.5 cups at a meal. Discussed potential for food intolerances. Encouraged her to stop eating when she feels full. Pt has a protein powder at home she likes to mix with ice, almond milk and PB2. Advised her that was fine to have. She can also add strained banana. Pt had the opportunity to have all her questions answered. She has a copy of the nutrition guidelines at home as well as my business card. Encouraged her to call with any questions. * Michaela Hansen PA - 11/27/2017 7:41 AM EDT Minimally Invasive Surgery Inpatient Progress Note ID: Mora Bolanos is a 42 y.o. female s/p laparoscopic revision of gabriella fundoplasty with partial gastrectomy and Evin-en-Y reconstruction and intraoperative upper endoscopy. Now 1 Day Post-Op. 24hr events: ?? No acute events Subjective: She admits to being very sore this am, which she states is more unexpected than she thought. She states that coughing increases her pain. The pain medication does decrease the pain, but she is noticing it does not last. She did have some jello and apple juice this am, and did not have any nausea or increase pain. She has been walking to the bathroom and is voiding without any problems. She admits to having nausea with increased pain, mostly with ambulation, but she has not had any vomiting. She currently denies v/cp/sob. O: Last value Range last 24hrs Temperature Temp: 37 ??C (98.6 ??F) Temp: [36.8 ??C (98.2 ??F)-37.9 ??C (100.2 ??F)] Heart Rate Heart Rate: 71 Heart Rate: [55-79] Blood Pressure BP: 109/64 BP: (96-133)/(44-84) Respiratory Rate Resp: 16 Resp: [13-24] SpO2 SpO2: 95 % SpO2: [91 %-100 %] 11/26 0701 - 11/27 0700 In: 2178 [I.V.:2178] Out: 650 [Urine:650] Physical Exam: General: NAD, resting comfortably, pleasant, conversant HEENT: PERRL, anicteric sclerae CVS: RRR Pulm: CTAB Abd: soft, appropriately tender, non-distended. 6 port sites without evidence of edema, erythema orecchymosis. No drainage or s/s of infection noted. : no problems with voiding Skin: warm, dry Ext: no c/c/e Neuro: non-focal, moving all four extremities spontaneously Labs: Recent Labs 11/27/17 0440 WBC 15.1* HGB 12.3 HCT 37.3 PLATELET 281 Recent Labs 11/27/17 0440 NA 139 K Not Perf CL 100 CO2 27 BUN 7* CREATININE 0.79 MAGNESIUM 0.81 PHOS 4.4 Microbiology: None New Studies: None ASSESSMENT: Mora Bolanos is a 42 y.o. female s/p laparoscopic revision of gabriella fundoplasty with partial gastrectomy and Evin-en-Y reconstruction and intraoperative upper endoscopy. Now 1 Day Post-Op Progressing post-operatively without concerns. PLAN: NEURO: Pain control with IV Tylenol and JUDICIAL LAW CLERK Dilaudid; transition to elixir Tylenol and Oxycodone. CV: no acute issues. PULM: Encourage frequent ambulation and IS use GI: Diet Gastric Bypass diet Stage I-Clear : no problems voiding; monitor UOP closely FEK: LR 90cc/hr until tolerating adequate po intake; monitor lytes and replace prn ID: no indication of active infection HEME: no indication of active bleeding ENDO: insulin sliding scale while inpatient; will resume home Glucophage after d/c PROPHYLAXIS: Lovenox for DVT; DISPO: Floor status, Full Code Plan for discharge tomorrow based on progress. RICHARD PHELPS 11/27/2017 * Ankush Lowry RN - 11/27/2017 5:23 AM EDT Pt arrived to [facility] at 0520 after report received from Mara in PACU. Pt oriented to floor, call system, purposeful rounding, fall prevention program. VSS. Lap sites on abdomen CDI under bandaids. Denies nausea, states pain gets better with JUDICIAL LAW CLERK but is afraid to fall asleep because of pain. Denies CP/SOB * Mara Marie RN - 11/27/2017 12:53 AM EDT 2300 - report received from MICROSTRATEGY ARCHITECT. Care assumed. Pt will remain in PACU as boarder. 0505 - report called to CHELO Mathur. 0515 - pt transported to via bed * Piotr Roy MD - 11/27/2017 12:00 AM EDT Post-Operative Check Mora Bolanos is a 42 y.o. female s/p Procedure(s): LAPAROSCOPIC REVISION OF GABRIELLA FUNDOPLASTY (WRVU *) LAPAROSCOPIC GASTRECTOMY, PARTIAL, W EVIN-EN-Y RECONSTRUCTION (WRVU *) ENDOSCOPY, UPPER GI, DIAGNOSTIC, WITH OR WITHOUT SPECIMENS S: No nausea/vomiting, chest pain, SOB, pain well controlled, offers no complaints O: Temp: [36.8 ??C (98.2 ??F)-37.9 ??C (100.2 ??F)] Heart Rate: [55-65] Resp: [13-24] BP: (96-118)/(44-65) SpO2: [91 %-100 %] Heart Rate from SPO2: [55 bpm-65 bpm] I/O last 3 completed shifts: In: 600 [I.V.:600] Out: - I/O this shift: In: 800 [I.V.:800] Out: 400 [Urine:400] Recent Results (from the past 24 hour(s)) POCT Glucose Result Value Ref Range POC Glucose 158 65 - 199 mg/dL POCT Glucose Result Value Ref Range POC Glucose 143 65 - 199 mg/dL Physical Exam Gen: A0x3, NAD, resting comfortably CVS: RRR Resp: CTAB, breathing comfortably on 2L NC Abd: soft, appropriately tender, nondistended Ext: SCDs in place, WWP AP Mora Bolanos is a 42 y.o. female s/p partial gastrectomy currently in stable condition andrecovering well - continue post operative plan per primary team - pain well controlled - hemodynamically stable Piotr Roy MD 11/27/2017 documented in this encounter H&P Notes * Sheridan Mosher MD - 11/26/2017 3:43 PM EDT Patient Name: Mora Bolanos Patient Age: 42 y.o. Birthdate: 1975 Admit date: 11/26/2017 Attending Physician: Sheridan Mosher MD ?? 42 yo female with history of recurrent GERD after several failed fundoplications. Here for revisionand conversion to partial gastrectomy (evin en Y reconstruction) ?? Patient Active Problem List Diagnosis Code ??? Gastroesophageal reflux K21.9 ??? Dyspepsia R10.13 ??? Disorder of female genital organ N94.9 ??? Endometriosis of other specified sites N80.8 ??? Nausea R11.0 ?? Past??Medical??History No past medical history on file. Past??Surgical??History Past Surgical History: Procedure Laterality Date ??? PRO LAP, ESOPHAGUS, OTHER PROC ?? 11/25/2012 ?? LAPAROSCOPIC REVISION OF GABRIELLA FUNDOPLASTY performed by Sheridan Mosher MD at [facility] OR ??? PRO UPPER GI ENDOSCOPY, BIOPSY ?? 09/04/2012 ?? EGD WITH BIOPSY performed by Didier Jones MD at [facility] ENDOSCOPY ??? PRO UPPER GI ENDOSCOPY, BIOPSY N/A 07/22/2016 ?? UPPER GASTROINTESTINAL ENDOSCOPY,WITH BIOPSY SINGLE OR MULTIPLE performed by Sheridan Mosher MDat [facility] ??? PRO UPPER GI ENDOSCOPY, DIAGNOSTIC ?? 11/25/2012 ?? ENDOSCOPY, UPPER GI, DIAGNOSTIC, WITH OR WITHOUT SPECIMENS performed by Sheridan Mosher MD at [facility] OR ??? PRO UPPER GI ENDOSCOPY, DIAGNOSTIC ?? 07/18/2014 ?? EGD, UPPER GI ENDOSCOPY performed by Sheridan Mosher MD at [facility] END[facility] ??? UPPER GI ENDOSCOPY, EXAM ?? 09/04/2012 ?? UPPER GI ENDOSCOPY performed by Didier Jones MD at [facility] ENDOSCOPY ?? No current facility-administered medications on file prior to encounter. Current Outpatient Prescriptions on File Prior to Encounter Medication Sig Dispense Refill ??? metFORMIN (GLUCOPHAGE-XR) 500 mg Tablet Sustained Release 24 hr Take 500 mg by mouth nightly. ??? multivitamin (THERAGRAN) Tablet Take 1 tablet by mouth daily. ??? cholecalciferol, Vitamin D3, 50,000 unit Capsule Take 50,000 Units by mouth twice a week. ??? epiNEPHrine 0.15 mg/0.15 mL Cmpk combo pack Inject into the muscle as needed. ??? ibuprofen (ADVIL;MOTRIN) 800 mg tablet Allergies Allergen Reactions ??? Onion Anaphylaxis ??? Bupropion ? Bupropion Hcl Other (See Comments) ? serum sickness ??? Metoclopramide Hcl Other (See Comments) ? Unknown ?? On examination, she appears well and in no distress. Head and neck exam reveals equal, reactive pupils and a supple neck. Her chest is clear bilaterally and her heart sounds are normal with no adventitious sounds or murmurs. Her abdomen is soft with no masses or tenderness. Extremity and Neuro exams are grossly normal. documented in this encounter Miscellaneous Notes * Plan of Care - Ankush Lowry RN - 11/29/2017 1:19 AM EDT Problem: Patient Care Overview Goal: Plan of Care Review Outcome: Ongoing (Interventions Implemented as Appropriate) 11/29/17 0117 Coping/Psychosocial Plan Of Care Reviewed With patient Plan of Care Review Progress progress toward functional goals as expected OUTCOME EVALUATION NOTE: OUTCOME SUMMARY: Pt states pain has been well managed with scheduled and PRN meds. Denies need for additional meds. Expressed some frustration at start of shift over continued blurred vision, hopeful that it will be resolving in AM. Voiding adequately. CHAUDHRY improving with increased PO intake. Resting between care, will continue to monitor. PLAN MOVING FORWARD: Monitor vision, potential for d/c with clearing of blurred vision INDIVIDUALIZED FALL PREVENTION INTERVENTIONS: high risk to fall ?? Patient-specific fall risk factors per assessment: [current deficits]: Generalized weakness, blurred vision ?? Assistance [level of assistance required for transfers and ambulation]: Standby ?? Supervision [direct monitoring required during toileting and ADLs]: Eyes on ?? Surveillance [continuous indirect monitoring]: NKE at bedside, purposeful rounding, bed/chair alarm, environmental modifications (waste basket is out of the path and the IV tubing and cords are free from the floor), fall reduction program in place, lighting adjusted for task/safety, bed in low position, wheels locked, side rails up (x2), nonskid socks worn OOB, [place] ID band on, no restraints, and call light is within reach at all times, family at bedside. ?? Patient-specific fall prevention interventions for sensory deficits provided, if applicable: [X] N/A CPG GOAL OUTCOME EVALUATION: * Plan of Care - Isabel Hammond RN - 11/28/2017 4:45 PM EDT Problem: Patient Care Overview Goal: Plan of Care Review Outcome: Ongoing (Interventions Implemented as Appropriate) 11/28/17 1624 Coping/Psychosocial Plan Of Care Reviewed With patient;spouse Plan of Care Review Progress no change OUTCOME EVALUATION NOTE: OUTCOME SUMMARY: Analisa c/o blurred vision and headache first thing this morning. After giving tylenol and oxy, pain did not subside. MD ordered a 1X dose of toradol, pain and blurred vision still did not subside. MD decided to DC the scopolamine patch because it has ability to cause side effects such as blurred vision and increased nausea. Blurred vision continued through out this shift, MD aware and stated that it may take until 3/17 AM to subside. Produced adequate UOP. RN continued to encourage PO intake. Patient continued to have a persistent dry cough, had gone to chest X-ray today which had shown slighty low lung volumes. RN encouraged patient to use I.S. PLAN MOVING FORWARD: Monitor symptoms of blurred vision and nausea, monitor I&O, use I.S. D/C tomorrow? INDIVIDUALIZED FALL PREVENTION INTERVENTIONS: high risk to fall Patient-specific fall risk factors per assessment: [current deficits]: Generalized weakness, blurred vision Assistance [level of assistance required for transfers and ambulation]: Standby Supervision [direct monitoring required during toileting and ADLs]: Eyes on Surveillance [continuous indirect monitoring]: NKE at bedside, purposeful rounding, bed/chair alarm, environmental modifications (waste basket is out of the path and the IV tubing and cords are free from the floor), fall reduction program in place, lighting adjusted for task/safety, bed in low position, wheels locked, side rails up (x2), nonskid socks worn OOB, [place] ID band on, no restraints, and call light is within reach at all times, family at bedside. Patient-specific fall prevention interventions for sensory deficits provided, if applicable: [X] N/A CPG GOAL OUTCOME EVALUATION: Goal: Individualization & Mutuality Outcome: Ongoing (Interventions Implemented as Appropriate) 11/27/17 0230 11/28/17 0041 Individualization Patient Specific Goals -- Monitor tolerance of diet, ROBF Patient Specific Interventions -- Encourage ambulation Mutuality/Individual Preferences What Anxieties, Fears or Concerns Do You Have About Your Health or Care? none -- What Questions Do You Have About Your Health or Care? none -- What Information Would Help Us Give You More Personalized Care? nothing -- Goal: Fall Prevention-Safe Patient Handling Outcome: Ongoing (Interventions Implemented as Appropriate) 11/28/17 0811/28/17 1624 Daily Care Interventions Self-Care Promotion -- independence encouraged;BADL personal objects within reach [place] Fall Risk History of Falling 0 -- Secondary Diagnosis 15 -- Ambulatory Aids 0 -- Intravenous Therapy/Heparin/Saline Lock 20 -- Gait/Transferring 10 -- Mental Status 0 -- Score 45 -- OTHER [place] Fall Risk High -- Restraint Interventions Safety Promotion/Fall Prevention activity supervised;fall prevention program maintained;nonskid shoes/slippers when out of bed;safety round/check completed -- Positioning Body Position independent -- Activity Activity Type activity encouraged -- Activity Assistance Provided assistance, 1 person -- Assistive Device Utilized front-wheel walker -- Goal: Infection Control Outcome: Ongoing (Interventions Implemented as Appropriate) 11/28/17 08 Safety Interventions Isolation Precautions standard precautions maintained Infection Prevention rest/sleep promoted Coping Strategies Supportive Measures active listening utilized;goal setting facilitated;self-care encouraged;verbalization of feelings encouraged Goal: Discharge Needs Assessment Outcome: Ongoing (Interventions Implemented as Appropriate) 11/27/17 0230 11/27/17 1600 11/28/17 0041 Discharge Needs Assessment Concerns To Be Addressed -- -- denies needs/concerns at this time Readmission Within The Last 30 Days no previous admission in last 30 days -- -- Equipment Needed After Discharge none -- -- Discharge Disposition still a patient -- -- Current Health Anticipated Changes Related to Illness none -- -- Activity/Self Care Review of Systems Equipment Currently Used at Home none -- -- Living Environment Transportation Available -- family or friend will provide -- Goal: Interdisciplinary Rounds/Family Conf Outcome: Ongoing (Interventions Implemented as Appropriate) 11/28/17 1624 Interdisciplinary Rounds/Family Conf Participants nursing;patient;physician Problem: Pain, Acute (Adult) Goal: Acceptable Pain Control/Comfort Level Patient will demonstrate the desired outcomes by discharge/transition of care. Outcome: Ongoing (Interventions Implemented as Appropriate) 11/28/17 0041 Pain, Acute (Adult) Acceptable Pain Control/Comfort Level making progress toward outcome Problem: Perioperative Period (Adult) Goal: Signs and Symptoms of Listed Potential Problems Will be Absent, Minimized or Managed (Perioperative Period) Signs and symptoms of listed potential problems will be absent, minimized or managed by discharge/transition of care (reference Perioperative Period (Adult) CPG). Outcome: Ongoing (Interventions Implemented as Appropriate) 11/27/17 1407 11/28/17 1624 Perioperative Period Problems Assessed (Perioperative Period) all -- Problems Present (Perioperative Period) -- pain * Plan of Care - Ankush Lowry RN - 11/28/2017 12:44 AM EDT Problem: Patient Care Overview Goal: Plan of Care Review Outcome: Ongoing (Interventions Implemented as Appropriate) 11/28/17 0042 Coping/Psychosocial Plan Of Care Reviewed With patient Plan of Care Review Progress progress toward functional goals as expected OUTCOME EVALUATION NOTE: OUTCOME SUMMARY: Pt states pain has been moderately managed with scheduled meds and oxy PRN q3. Voiding adequately. Ambulated with staff in hallway. Sats noted to be dropping when sleeping, encouraged IS and applied 1 L NC while asleep. Resting between care, will continue to monitor. PLAN MOVING FORWARD: Encourage activity, monitor tolerance of diet, treat pain, promote ROBF INDIVIDUALIZED FALL PREVENTION INTERVENTIONS: HIGH FALLS RISK Patient-specific fall risk factors per assessment: [current deficits]: Risk factors include IV access, narcotic use, generalized weakness Assistance [level of assistance required for transfers and ambulation]: SBA w/ IV pole Supervision [direct monitoring required during toileting and ADLs]: Eyes Surveillance [continuous indirect monitoring]: NKE at bedside, purposeful rounding, bed/chair alarm Patient-specific fall prevention interventions for sensory deficits provided, if applicable: [X] N/A CPG GOAL OUTCOME EVALUATION: * Plan of Care - Ange Griffin RN - 11/27/2017 2:23 PM EDT Problem: Patient Care Overview Goal: Plan of Care Review Outcome: Ongoing (Interventions Implemented as Appropriate) 11/27/17 0230 11/27/17 0834 Coping/Psychosocial Plan Of Care Reviewed With -- patient Plan of Care Review Progress progress toward functional goals as expected -- OUTCOME EVALUATION NOTE: OUTCOME SUMMARY: Patient received. A&O throughout shift. Patient slightly tachy but otherwise vital signs stable. Patient ambulated in hallway several times today. JUDICIAL LAW CLERK discontinued this morning and patient now onliquid oral medication. Patient requiring around the clock dosing of her oxycodone. Patient tolerating diet. No straws, limit of sugary drinks. But continues to be nauseated with increased pain. Scopolamine patch reordered. Patient rested in between care. Comfort and safety measures maintained, call reddy within reach bed alarm on. PLAN MOVING FORWARD: Continue to monitor all order parameter, manage pain, encourage ambulation, INDIVIDUALIZED FALL PREVENTION INTERVENTIONS: High fall risk Patient-specific fall risk factors per assessment: [current deficits]: Patient's current risk factors include: recent surgery, acute pain, taking narcotic pain medication, periods of dizziness, and IVs infusing. Assistance [level of assistance required for transfers and ambulation]: One person assist with walker Supervision [direct monitoring required during toileting and ADLs]: Eyes on Surveillance [continuous indirect monitoring]: Bed/Chair alarm, yellow fall band, NKE at bedside, purposeful rounding, environmental modification (floor free of clutter, tubing secured), bed in low position, lighting adjusted for task/safety, nonskid slippers when out of bed, wheels locked, call light in reach, upper side-rails raised X2, ID bands on. Patient-specific fall prevention interventions for sensory deficits provided, if applicable: No CPG GOAL OUTCOME EVALUATION: * Care Management - Nena Bright RN - 11/27/2017 1:48 PM EDT Office of Care Management Initial Assessment Nena Bright RN reviewed record and discussed patient with Care Team. Source of Information: Patient and chart review. Introduced self/reviewed role; services accepted. Reason for Hospitalization: Reason for Admission as Stated by Patient: Surgery on my stomach. Laparoscopic Revision of Gabriella Fundoplasty with Partial Gastrectomy and Evin-en-Y Reconstruction and Intraoperative Upper Endoscopy. 10/29/2017 History reviewed. No pertinent past medical history. Hospitalizations Within the Past 30 Days: no Anticipated Length Of Stay (If known): Current Decision-Making Capacity: Full capacity. Advance Care Planning: Patient does not have Advance Directives but is very interested. Discussed and provided advance directive booklet and forms, patient will discuss with family at a later time. Current Coping/Education/Information Needs: Coping well considering she has a frequent dry cough, making it painful to cough. Pt splinting her abdomen. Current Functional Ability: Stand by assist. Walked the hallway; tolerated well. Functional Status Prior to Admission: Independent. Home Environment: Pt lives in a double wide trailer with spouse Jay. They have three pet dogs. Social & Family Supports/Community Resources: Pt is well supported by her spouse and children. Two adult children live in [place]; youngest son attends [employer] [facility] in January 2018. Behavioral Health History: Denied. Substance Use/Abuse: Denied Other Pertinent/Service Specific Information: Pt has had many surgery in her past; she is very familiar with post-operative recovery. Health/Prescription Coverage: Primary Insurance: [employer] [facility] Secondary Insurance: [facility] Prescription Coverage: Pt was not sure if she has prescription coverage but said she can handle outof pocket co-pays of generic's. Preferred Pharmacy: [place], [place]. Other: no Primary Care Provider: Laura Ross, PLANT GUIDE [phone] Patient/Caregiver Goals of Treatment: Effective pain management; adequate fluid and nutrition support; able tolerated clear liquids for now; advance diet as ordered. Walk each shift. Potential Needs for Transition of Care: Rehab/SNF: no Home Health: no DME: no Dialysis: no Community Resources: no Transportation: via car with spouse driving. Other: no Anticipated Barriers to Discharge/Special Considerations: none Assessment: Mora is a 42 year old female who is POD 1 for the above procedure. Pt is doing well; skin color pink; walking with sba; experiencing a sore throat; has a dry cough; abdominal discomfort when coughing and moving around. Plan: A member of the Care Management team will continue to monitor progress, follow for continuityof care and assist with transition of care planning. Nena Bright RN, BSN Grounds Manager-2 [place] Pager # [phone] [email or web address] * Plan of Care - Mara Marie RN - 11/27/2017 2:46 AM EDT Problem: Patient Care Overview Goal: Plan of Care Review Outcome: Ongoing (Interventions Implemented as Appropriate) 11/27/17 0230 Coping/Psychosocial Plan Of Care Reviewed With patient Plan of Care Review Progress progress toward functional goals as expected OUTCOME EVALUATION NOTE: OUTCOME SUMMARY: Ms. Bolanos has been sleeping most of the night, and thus only using her JUDICIAL LAW CLERK intermittently. When she got up to walk to the bathroom (succsesfully voiding with low PVR) she c/o severe pain, but was able to catch up once returned to bed. VSS. NPO maintained. C/o nausea last hs, medicated with relief stated. PLAN MOVING FORWARD: mobilize; nausea meds as needed; JUDICIAL LAW CLERK INDIVIDUALIZED FALL PREVENTION INTERVENTIONS: Patient-specific fall risk factors per assessment: [current deficits]: No deficits Assistance [level of assistance required for transfers and ambulation]: One light assist Supervision [direct monitoring required during toileting and ADLs]: Pt may be left unsupervised, and she uses the call reddy appropriately. Surveillance [continuous indirect monitoring]: Masimo, hourly purposeful rounding Patient-specific fall prevention interventions for sensory deficits provided, if applicable: n/a CPG GOAL OUTCOME EVALUATION: Goal: Individualization & Mutuality Outcome: Ongoing (Interventions Implemented as Appropriate) 11/27/17 0230 Individualization Patient Specific Goals I'd like to get some sleep!. Patient Specific Interventions Care clustered to minimize awakenings. Mutuality/Individual Preferences What Anxieties, Fears or Concerns Do You Have About Your Health or Care? none What Questions Do You Have About Your Health or Care? none What Information Would Help Us Give You More Personalized Care? nothing Goal: Fall Prevention-Safe Patient Handling Outcome: Ongoing (Interventions Implemented as Appropriate) 11/26/17 1401 11/27/17 0005 Chirinos Fall Risk History of Falling 0 -- Secondary Diagnosis 15 -- Ambulatory Aids 0 -- Intravenous Therapy/Heparin/Saline Lock 20 -- Gait/Transferring 0 -- Mental Status 0 -- Score 35 -- OTHER Chirinos Fall Risk Med -- Restraint Interventions Safety Promotion/Fall Prevention -- safety round/check completed;fall prevention program maintained;activity supervised Positioning Body Position -- independent Activity Activity Type -- activity adjusted per tolerance Goal: Infection Control Outcome: Ongoing (Interventions Implemented as Appropriate) 11/26/17 2300 11/27/17 0005 Safety Interventions Isolation Precautions -- standard precautions maintained Infection Prevention -- environmental surveillance performed;personal protective equipment utilized;rest/sleep promoted Coping Strategies Supportive Measures active listening utilized;decision-making supported;positive reinforcement provided;self-care encouraged;self-responsibility promoted;verbalization of feelings encouraged -- Goal: Discharge Needs Assessment Outcome: Ongoing (Interventions Implemented as Appropriate) 11/27/17 023 Discharge Needs Assessment Concerns To Be Addressed denies needs/concerns at this time Readmission Within The Last 30 Days no previous admission in last 30 days Equipment Needed After Discharge none Discharge Disposition still a patient Current Health Anticipated Changes Related to Illness none Activity/Self Care Review of Systems Equipment Currently Used at Home none Living Environment Transportation Available family or friend will provide Goal: Interdisciplinary Rounds/Family Conf Outcome: Ongoing (Interventions Implemented as Appropriate) 11/27/17 023 Interdisciplinary Rounds/Family Conf Participants patient;physician Problem: Pain, Acute (Adult) Goal: Identify Related Risk Factors and Signs and Symptoms Related risk factors and signs and symptoms are identified upon initiation of Human Response Clinical Practice Guideline (CPG) Outcome: Ongoing (Interventions Implemented as Appropriate) 11/27/17229 Pain, Acute Related Risk Factors (Acute Pain) surgery Signs and Symptoms (Acute Pain) facial mask of pain/grimace;verbalization of pain descriptors;sleeppattern alteration Goal: Acceptable Pain Control/Comfort Level Patient will demonstrate the desired outcomes by discharge/transition of care. Outcome: Ongoing (Interventions Implemented as Appropriate) 11/27/17 023 Pain, Acute (Adult) Acceptable Pain Control/Comfort Level making progress toward outcome * Op Note - Sheridan Mosher MD - 11/26/2017 8:05 PM EDT [facility] [place]ative [place] Patient Name: Mora Bolanos : [id number] MR#: [id number] Case Date: 11/26/2017 Surgeon: Surgeon(s) and Role: * Sheridan Mosher MD - Primary * Ange Cordon MD - No qualified resident available to assist Preoperative diagnosis: FAILED FUNDOPLICATION Postoperative diagnosis: FAILED FUNDOPLICATION Procedure(s) (LRB): LAPAROSCOPIC REVISION OF GABRIELLA FUNDOPLASTY (WRVU *) (N/A) LAPAROSCOPIC GASTRECTOMY, PARTIAL, W EVIN-EN-Y RECONSTRUCTION (WRVU *) (N/A) ENDOSCOPY, UPPER GI, DIAGNOSTIC, WITH OR WITHOUT SPECIMENS (N/A) Anesthesia: General Estimated Blood Loss: 31.4 Specimens removed during surgery: Order Name Source Comment Collection Info Order Time SPECIMEN TO PATHOLOGY OR 26 [id number] FAILED FUNDOPLICATION Fundus Excision No 11/26/2017 6:23 PM Time removed from patient: 6:23 PM Drains: Surgical Closure: Primary Closure - closure of ALL tissue levels during the original surgery regardless of wires, wickes, drains, or other devices extruding through the incision Disposition: awakened from anesthesia, extubated and taken to the recovery room in a stable condition, having suffered no apparent untoward event. Condition: doing well without problems (Please see the Surgical Encounter Summary for any Implant and Specimen details pertinent to this patient.) Indications: The patient is a 42 y.o. female who previously underwent laparoscopic Gabriella fundoplication x2 for symptomatic GERD. She did very well after her surgery initially but has recently developed recurrent symptoms. She does not wish to remain on chronic PPI therapy, which is not completely c ontrolling her symptoms. The risks and benefits of re-do procedure were explained to her and she chose to undergo this after adequate review of the risks and benefits and informed consent was obtained. Description of Procedure: Under general anesthesia and endotracheal intubation, the patient was prepped and draped in the supine position . After team timeout, he abdomen was insufflated by placing an Optiview trocarapproximately 20 cm below the xiphoid to the left of the midline. A 45 degree telescope was inserted and under direct vision 5 mm ports were placed at 10 cm along the left and right costal margins, 15 cm along the right costal margin and 25 cm along the left costal margin. A final 12 mm port was eventually placed at the level of the camera port to the right of the midline. A liverretractor was placed in the lateral right port and used to elevate the left lobe of the liver thus exposing the hiatus. Sharp and blunt dissection was used to eventually mobilize the adhesions from the undersurface of the left lobe of the liver and diaphragm. The fundoplication was reduced and it appeared that the fundoplication had opened up somewhat. The previous fundoplication was taken down using sharp and blunt dissection. The crura was still reapproximated posterior to the esophagus. The f undus appeared quite scarred and given her 2 past failures we decided to resect the fundus and reconstruct with a Evin en Y configuration. A small window was made along the vasculature of the lesser curve, approximately 5 cm from the hiatus. Eventually, the vasculature was from the lesser curve and the posterior, lesser sac was entered. A firing of an endo-NAY 60 stapler with a blue load in a transverse direction across the stomach was performed. The stapler was then fired multiple times until a small narrow pouch was created. The pouch accommodated a volume of approximately 20 cc to 30 cc. The fundus was also stapled off and the resected fundus was placed in a bag and removed. The patient was then placed into some Trendelenburg position. Adhesions between the omentum and lower anterior abdominal wall were taken down using sharp dissection. The omentum and transverse colon reflected cephalad. The ligament of Treitz was identified and dissection was carried along approximately 40 cm from the ligament of Treitz. A small window was made in the small bowel mesentery and a stapler was introduced through this to create a firing of the stapler and divide the small bowel. The harmonic scalpel was used to divide the mesentery for a Evin limb. At a point approximately 80 cm, the distal bowel was chosen to create the mbet-gn-uyiz jejunojejunostomy. The duodenal, afferent limb was approximated to the side wall of the jejunum at the 80-cm poly. Enterotomies were made in both and a single firing of an EndoGIA vascular load was used to create anastomosis. The resultant defect was sewn in two layers of running 2-0 Surgilon suture. A split was made in the omentum just above the transverse colon and the Evin limb fed through this. Two stay stitches in the side wall of the Evin limb were approximated to the end of the gastric pouch. An enterotomy was made in the gastric pouch and the jejunostomy and a partial-length firing of the NAY-60 stapler was used to create the anastomosis between this pouch and the jejunum. The resultant enterotomy defect was closed with a running 2- 0 Surgilon suture in two layers with a 30 Occitan Bougie (blunt-tipped) in place. The Bougie was then removed and the Evin limb clamped with a bowel clamp. The endoscope was introduced and the pouch and anastomosis was insufflated under saline. Inspection of the anastomosis did not reveal any leak. It appeared to be patent and allowed passage of an endoscope without resistance. The jejunojejunostomy mesenteric defect was then closed with a running 2-0 Surgilon suture. All ports were then removed under direct vision and the skin was closed with running subcuticular 4-0 Vicryl suture, followed by Steri- Strips and Band-aids. The patient returned to the Recovery Room in stable conditions. Sponge, instrument and needle counts were correct. Attestation: Case Date: 11/26/2017 I performed this procedure without the involvement of a resident. SHERIDAN MOSHER MD 11/26/2017 documented in this encounter Plan of Treatment Upcoming Encounters Date Type Department Care Team (Late st Contact Info) Description 06/15/2024 3:00 PM EDT Hospital En[place] [address] Alena [place] [address] 07/09/2024 8:30 AM EDT Appointment XRay at [address] [address] Alena [place] [address] 07/17/2024 8:00 AM EDT Procedure visit [place] [address] 08/26/2024 8:00 AM EST Office [place] [address] 08/27/2024 9:00 AM EST Clinical Support Gastroenterology at [facility] [address] documented as of this encounter Procedures Procedure Name Priority Date/Time Associated Diagnosis Comments POCT GLUCOSE Routine 11/29/2017 3:08 PM EDT POCT GLUCOSE Routine 11/29/2017 11:54 AM EDT POCT GLUCOSE Routine 11/29/2017 7:43 AM EDT HEMOGRAM Routine 11/29/2017 3:50 AM EDT DIFFERENTIAL, AUTOMATED Routine 11/29/2017 3:50 AM EDT CBC (WITH DIFF) Routine 11/29/2017 3:50 AM EDT BASIC METABOLIC PANEL Routine 11/29/2017 3:50 AM EDT POCT GLUCOSE Routine 11/29/2017 3:49 AM EDT POCT GLUCOSE Routine 11/28/2017 11:30 PM EDT POCT GLUCOSE Routine 11/28/2017 7:32 PM EDT POCT GLUCOSE Routine 11/28/2017 3:56 PM EDT XR CHEST PA AND LATERAL Routine 11/28/2017 1:54 PM EDT POCT GLUCOSE Routine 11/28/2017 11:53 AM EDT POCT GLUCOSE Routine 11/28/2017 7:47 AM EDT POCT GLUCOSE Routine 11/28/2017 4:21 AM EDT HEMOGRAM Routine 11/28/2017 2:42 AM EDT DIFFERENTIAL, AUTOMATED Routine 11/28/2017 2:42 AM EDT CBC (WITH DIFF) Routine 11/28/2017 2:42 AM EDT BASIC METABOLIC PANEL Routine 11/28/2017 2:42 AM EDT POCT GLUCOSE Routine 11/27/2017 11:46 PM EDT POCT GLUCOSE Routine 11/27/2017 7:46 PM EDT POCT GLUCOSE Routine 11/27/2017 3:51 PM EDT POCT GLUCOSE Routine 11/27/2017 11:12 AM EDT POCT GLUCOSE Routine 11/27/2017 8:08 AM EDT POCT GLUCOSE Routine 11/27/2017 4:47 AM EDT HEMOGRAM Routine 11/27/2017 4:40 AM EDT DIFFERENTIAL, AUTOMATED Routine 11/27/2017 4:40 AM EDT CREATININE Routine 11/27/2017 4:40 AM EDT CBC (WITH DIFF) Routine 11/27/2017 4:40 AM EDT BUN Routine 11/27/2017 4:40 AM EDT PHOSPHORUS Routine 11/27/2017 4:40 AM EDT MAGNESIUM Routine 11/27/2017 4:40 AM EDT GLUCOSE, FASTING Routine 11/27/2017 4:40 AM EDT ELECTROLYTES PANEL Routine 11/27/2017 4: 40 AM EDT POCT GLUCOSE Routine 11/27/2017 12:18 AM EDT POCT GLUCOSE Routine 11/26/2017 8:40 PM EDT SPECIMEN TO PATHOLOGY Routine 11/26/2017 6:24 PM EDT SURGICAL PATHOLOGY REPORT Routine 11/26/2017 6:23 PM EDT ENDOSCOPY, UPPER GI, DIAGNOSTIC, WITH OR WITHOUT SPECIMENS (WRVU 2.09) 11/26/2017 4:32 PM EDT FAILED FUNDOPLICATION LAPAROSCOPIC GASTRECTOMY, PARTIAL, W EVIN-EN-Y CONSTRUCTION (WRVU 35.53) 11/26/2017 4:32 PM EDT FAILED FUNDOPLICATION LAPAROSCOPIC REVISION OF GABRIELLA FUNDOPLASTY (WRVU 48.75) 11/26/2017 4:32 PM EDT FAILED FUNDOPLICATION LENS GRINDER ROUGH SCAN 11/26/2017 12:00 AM EDT documented in this encounter Results * POCT Glucose (11/29/2017 3:08 PM EDT) Glucose, POC 92 65 - 199 mg/dL [facility] Comment: Supplemental ranges: <140 mg/dL before meals <180 mg/dL all other times of the day Blood specimen (specimen) 11/29/2017 3:08 PM EDT 11/29/2017 3:08 PM EDT Sheridan Mosher MD POINT OF CARE TEST Britany GOMEZ Performing Organization Address [facility] Co de Phone Number [facility] [place] [address] * POCT Glucose (11/29/2017 11:54 AM EDT) Glucose, POC 103 65 - 199 mg/dL [facility] Comment: Supplemental ranges: <140 mg/dL before meals <180 mg/dL all other times of the day Blood specimen (specimen) 11/29/2017 11:54 AM EDT 11/29/2017 11:54 AM EDT Sheridan Mosher MD POINT OF CARE TEST O PATRICIA Performing Organization Address City/[facility]/ZIP Co de Phone Number [facility] [place] [place] [address] * POCT Glucose (11/29/2017 7:43 AM EDT) Glucose, POC 88 65 - 199 mg/dL [facility] Comment: Supplemental ranges: <140 mg/dL before meals <180 mg/dL all other times of the day Blood specimen (specimen) 11/29/2017 7:43 AM EDT 11/29/2017 7:43 AM EDT Sheridan Mosher MD POINT OF CARE [place] [address] * Differential, Automated (11/29/2017 3:50 AM EDT) [facility] Neutrophil % 61.6 % [facility] Neutrophil Absolute 5.94 1.70 - 6.10 x10(3)/[facility] Lymph % 28.8 % [facility] Lymphocytes Abs 2.8 0.9 - 3.2 x10(3)/[facility] Monocyte % 6.2 % [facility] Monocyte Abs 0.6 0.3 - 0.9 x10(3)/[facility] Eos % 2.7 % [facility] Eosinophils Abs 0.3 0.0 - 0.4 x10(3)/[facility] Basophil % 0.4 % [facility] Baso Absolute 0.0 0.0 - 0.1 x10(3)/[facility] Immature Gran % 0.30 % [facility] Comment: Immature granulocytes(IG's)percentage and absolute count will include metamyelocytes, myelocytes, and promyelocytes. Blood smears from CBCs yielding IG's will be scanned manually for concordance. If this scan disagrees with the automated IG or if promyelocytes are noted, a manual differential will be performed. Immature Gran Absolute 0.03 0.00 - 0.04 x10(3)/[facility] Blood specimen (specimen) 11/29/2017 3:50 AM EDT 11/29/2017 4:03 AM EDT Narrative Resulting Agency Comment Spec In Lab Ange Oreilly MD HEMATOLOGY OR DERABLES [facility] [place] [address] * (ABNORMAL) Hemogram (11/29/2017 3:50 AM EDT) White Blood Cell 9.6(H) 4.0 - 9.5 x10(3)/[facility] Red Blood Cell 4.24 4.00 - 5.21 x10(6)/[facility] Hemoglobin 11.7 11.7 - 15.5 gm/dL [facility] Hematocrit 36.8 35.7 - 45.8 % [facility] Mean Cell Volume 86.8 82.6 - 94.4 fL [facility] Mean Cell Hemoglobin 27.6 27.1 - 32.0 pg [facility] Mean Cell Hemoglobin Concentration 31.8 31.7 - 35.0 gm/dL [facility] Platelet 216 145 - 357 x10(3)/[facility] RDW Standard Deviation 40.6 37.0 - 46.0 [facility] RDW coefficient of variation 12.8 11.5 - 14.1 % [facility] Mean Platelet Volume 10.0 7.6 - 12.9 fL [facility] NRBC% auto 0.0 % [facility] NRBC Absolute 0.000 0.000 - 0.000 x10(3)/[facility] Blood specimen (specimen) 11/29/2017 3:50 AM EDT 11/29/2017 4:03 AM EDT Narrative Resulting Agency Comment Spec In Lab Ange Oreilly MD HEMATOLOGY OR DERABLES Performing Organization Address City/State/[facility] Co de Phone Number [facility] [place] [address] * (ABNORMAL) Basic Metabolic Panel (non-fasting) (11/29/2017 3:50 AM EDT) Glucose 100 65 - 199 mg/dL [facility] Comment:Diabetes: >=200 mg/d L plus symptoms Blood Urea Nitrogen 4(L) 8 - 18 mg/dL [facility] Creatinine 0.66(L) 0.70 - 1.20 mg/dL [facility] Sodium 144 135 - 145 mmol/L [facility] Potassium 4.0 3.5 - 5.0 mmol/L [facility] Comment: Please note: ??Patients with WBC >100,000 may have falsely elevated Potassium levels. ??For accurate Potassium quantification in these patients send serum separator tube (gold top) for subsequent determinations. ??Contact the Clinical Chemistry Laboratory if there are any questions. Chloride 106 98 - 107 mmol/L [facility] Carbon Dioxide 28 22 - 31 mmol/L [facility] Anion Gap 10 5 - 15 mmol/L [facility] Calcium 9.0 8.5 - 10.5 mg/dL [facility] Comment:result rechecked-jt Est Glomerular Filtration Rate >60 >=60 [facility] Comment: The reported eGFR should be multiplied by 1.2 for patients. The MDRD is not an appropriate measure of renal function for patients with body mass extremes or in patients with acute kidney failure. http://[employer]/DHnkdep http://[employer].com/DHMCnkf Blood specimen (specimen) 11/29/2017 3:50 AM EDT 11/29/2017 4:03 AM EDT Narrative Resulting Agency Comment Spec In Lab Ange Oreilly MD CHEMISTRY ORD ERABLES Performing Organization Address City/State/[facility] Co de Phone Number [facility] [place] [place] [address] * POCT Glucose (11/29/2017 3:49 AM EDT) Glucose, POC 91 65 - 199 mg/dL [facility] Comment: Supplemental ranges: <140 mg/dL before meals <180 mg/dL all other times of the day Blood specimen (specimen) 11/29/2017 3:49 AM EDT 11/29/2017 3:49 AM EDT Sheridan Mosher MD POINT OF CARE TEST O PATRICIA Performing Organization Address [facility] Co de Phone Number [facility] [place] [place] [address] * POCT Glucose (11/28/2017 11:30 PM EDT) Glucose, POC 82 65 - 199 mg/dL [facility] Comment: Supplemental ranges: <140 mg/dL before meals <180 mg/dL all other times of the day Blood specimen (specimen) 11/28/2017 11:30 PM EDT 11/28/2017 11:30 PM EDT Sheridan Mosher MD POINT OF CARE TEST O PATRICIA Performing Organization Address [facility] de Phone Number [facility] [place] [place] [address] * POCT Glucose (11/28/2017 7:32 PM EDT) Glucose, POC 117 65 - 199 mg/dL [facility] Comment: Supplemental ranges: <140 mg/dL before meals <180 mg/dL all other times of the day Blood specimen (specimen) 11/28/2017 7:32 PM EDT 11/28/2017 7:32 PM EDT Sheridan Mosher MD POINT OF CARE TEST O PATRICIA Performing Organization Address [facility]/State/ZIP Co de Phone Number [facility] [place] [place] [address] * POCT Glucose (11/28/2017 3:56 PM EDT) Glucose, POC 141 65 - 199 mg/dL [facility] Comment: Supplemental ranges: <140 mg/dL before meals <180 mg/dL all other times of the day Blood specimen (specimen) 11/28/2017 3:56 PM EDT 11/28/2017 3:56 PM EDT Sheridan Mosher MD POINT OF CARE TEST O RDERABLES [facility] [place] [place] [address] * XR Chest PA & Lateral (Generic) (11/28/2017 1:54 PM EDT) Anatomical Region Laterality Modality Chest N/A Digital Radiogra phy Impressions 11/28/2017 1:59 PM EDT Slightly low lung volumes. No significant abnormality. Narrative 11/28/2017 1:59 PM EDT EXAMINATION: XR CHEST PA AND LATERAL (GENERIC) CLINICAL HISTORY: 42yo female s/p lap Gabriella revision and partial gastrectomy from 11/26/17 with worsening cough. Please eval for pathology. Thanks. TECHNIQUE: Standing PA and lateral chest COMPARISON: 09/27/2010 FINDINGS: There are slightly low lung volumes with mild bibasilar atelectasis. Otherwise, the lungs are clear. The cardiomediastinal silhouette and winsome appear normal. No pleural effusion, pneumothorax or other significant abnormality is seen. Procedure Note Didier Banuelos MD - 11/28/2017 EXAMINATION: XR CHEST PA AND LATERAL (GENERIC) CLINICAL HISTORY: 42yo female s/p lap Gabriella revision and partialgastrectomy from 11/26/17 with worsening cough. Please eval for pathology. Thanks. TECHNIQUE: Standing PA and lateral chest COMPARISON: 09/27/2010 FINDINGS: There are slightly low lung volumes with mild bibasilar atelectasis.Otherwise, the lungs are clear. The cardiomediastinal silhouette and winsome appearnormal. No pleural effusion, pneumothorax or other significant abnormality is seen. IMPRESSION Slightly low lung volumes. No significant abnormality. Sheridan Mosher MD IMG DX ORDERABLES * POCT Glucose (11/28/2017 11:53 AM EDT) Glucose, POC 120 65 - 199 mg/dL [facility] Comment: Supplemental ranges: <140 mg/dL before meals <180 mg/dL all other times of the day Blood specimen (specimen) 11/28/2017 11:53 AM EDT 11/28/2017 11:53 AM EDT Sheridan Mosher MD POINT OF CARE TEST O PATRICIA Performing Organization Address [facility]/ZIP Co de Phone Number [facility] [place] [address] * POCT Glucose (11/28/2017 7:47 AM EDT) Glucose, POC 109 65 - 199 mg/dL [facility] Comment: Supplemental ranges: <140 mg/dL before meals <180 mg/dL all other times of the day Blood specimen (specimen) 11/28/2017 7:47 AM EDT 11/28/2017 7:47 AM EDT Sheridan Mosher MD POINT OF CARE TEST O PATRICIA [facility] [place] [address] * POCT Glucose (11/28/2017 4:21 AM EDT) Glucose, POC 104 65 - 199 mg/dL [facility] Comment: Supplemental ranges: <140 mg/dL before meals <180 mg/dL all other times of the day Blood specimen (specimen) 11/28/2017 4:21 AM EDT 11/28/2017 4:21 AM EDT Sheridan Mosher MD POINT OF CARE TEST O RDERABLES [facility] [place] [place] [address] * (ABNORMAL) Differential, Automated (11/28/2017 2:42 AM EDT) Neutrophil % 67.1 % [facility] Neutrophil Absolute 6.24(H) 1.70 - 6.10 x10(3)/[facility] Lymph % 24.0 % [facility] Lymphocytes Abs 2.2 0.9 - 3.2 x10(3)/[facility] Monocyte % 7.5 % [facility] Monocyte Abs 0.7 0.3 - 0.9 x10(3)/[facility] Eos % 0.9 % [facility] Eosinophils Abs 0.1 0.0 - 0.4 x10(3)/[facility] Basophil % 0.2 % [facility] Baso Absolute 0.0 0.0 - 0.1 x10(3)/[facility] Immature Gran % 0.30 % [facility] Comment: Immature granulocytes(IG's)percentage and absolute count will include metamyelocytes, myelocytes, and promyelocytes. Blood smears from CBCs yielding IG's will be scanned manually for concordance. If this scan disagrees with the automated IG or if promyelocytes are noted, a manual differential will be performed. Immature Gran Absolute 0.03 0.00 - 0.04 x10(3)/[facility] Blood specimen (specimen) 11/28/2017 2:42 AM EDT 11/28/2017 3:08 AM EDT Narrative Resulting Agency Comment Spec In Lab Ange Oreilly MD HEMATOLOGY OR DERABLES [facility] [place] [place] [address] * (ABNORMAL) Hemogram (11/28/2017 2:42 AM EDT) White Blood Cell 9.3 4.0 - 9.5 x10(3)/mc L [facility] Red Blood Cell 3.78(L) 4.00 - 5.21 x10(6)/mc L [facility] Hemoglobin 10.5(L) 11.7 - 15.5 gm/dL [facility] Hematocrit 32.7(L) 35.7 - 45.8 % [facility] Mean Cell Volume 86.5 82.6 - 94.4 fL [facility] Mean Cell Hemoglobin 27.8 27.1 - 32.0 pg [facility] Mean Cell Hemoglobin Concentration 32.1 31.7 - 35.0 gm/dL [facility] Platelet 212 145 - 357 x10(3)/mc L [facility] RDW Standard Deviation 40.9 37.0 - 46.0 fL [facility] RDW coefficient of variation 13.0 11.5 - 14.1 % [facility] Mean Platelet Volume 10.5 7.6 - 12.9 fL [facility] NRBC% auto 0.0 % [facility] NRBC Absolute 0.000 0.000 - 0.000 x10(3)/mc L [facility] Blood specimen (specimen) 11/28/2017 2:42 AM EDT 11/28/2017 3:08 AM EDT Narrative Resulting Agency Comment Spec In Lab Ange Oreilly MD HEMATOLOGY OR DERABLES [facility] [place] [address] * (ABNORMAL) Basic Metabolic Panel (non-fasting) (11/28/2017 2:42 AM EDT) Glucose 94 65 - 199 mg/dL [facility] Comment:Diabetes: >=200 mg/d L plus symptoms Blood Urea Nitrogen 5(L) 8 - 18 mg/dL [facility] Creatinine 0.73 0.70 - 1.20 mg/dL [facility] Sodium 142 135 - 145 mmol/L [facility] Potassium 3.7 3.5 - 5.0 mmol/L [facility] Comment: result rechecked-jt Please note: ??Patients with WBC >100,000 may have falsely elevated Potassium levels. ??For accurate Potassium quantification in these patients send serum separator tube (gold top) for subsequent determinations. ??Contact the Clinical Chemistry Laboratory if there are any questions. Chloride 104 98 - 107 mmol/L [facility] Carbon Dioxide 27 22 - 31 mmol/L [facility] Anion Gap 11 5 - 15 mmol/L [facility] Calcium 7.9(L) 8.5 - 10.5 mg/dL [facility] Est Glomerular Filtration Rate >60 >=60 [facility] Comment: The reported eGFR should be multiplied by 1.2 for patients. The MDRD is not an appropriate measure of renal function for patients with body mass extremes or in patients with acute kidney failure. http://[employer]/DHnkdep http://[employer]/DHMCnkf Blood specimen (specimen) 11/28/2017 2:42 AM EDT 11/28/2017 3:08 AM EDT Narrative Resulting Agency Comment Spec In Lab Ange Oreilly MD CHEMISTRY ORD ERABLES [facility] [place] [place] [address] * POCT Glucose (11/27/2017 11:46 PM EDT) Glucose, POC 95 65 - 199 mg/dL [facility] Comment: Supplemental ranges: <140 mg/dL before meals <180 mg/dL all other times of the day Blood specimen (specimen) 11/27/2017 11:46 PM EDT 11/27/2017 11:46 PM EDT Sheridan Mosher MD POINT OF CARE TEST O PATRICIA Performing Organization Address City/[facility]/ZIP Co de Phone Number [facility] [place] [address] * POCT Glucose (11/27/2017 7:46 PM EDT) Glucose, POC 110 65 - 199 mg/dL [facility] Comment: Supplemental ranges: <140 mg/dL before meals <180 mg/dL all other times of the day Blood specimen (specimen) 11/27/2017 7:46 PM EDT 11/27/2017 7:46 PM EDT Sheridan Mosher MD POINT OF CARE TEST O PATRICIA Performing Organization Address [facility]/ZIP Co de Phone Number [facility] [place] [address] * POCT Glucose (11/27/2017 3:51 PM EDT) Glucose, POC 105 65 - 199 mg/dL [facility] Comment: Supplemental ranges: <140 mg/dL before meals <180 mg/dL all other times of the day Blood specimen (specimen) 11/27/2017 3:51 PM EDT 11/27/2017 3:51 PM EDT Sheridan Mosher MD POINT OF CARE TEST O PATRICIA Performing Organization Address City/[facility]/ZIP Co de Phone Number [facility] [place] [address] * POCT Glucose (11/27/2017 11:12 AM EDT) Glucose, POC 95 65 - 199 mg/dL [facility] Comment: Supplemental ranges: <140 mg/dL before meals <180 mg/dL all other times of the day Blood specimen (specimen) 11/27/2017 11:12 AM EDT 11/27/2017 11:12 AM EDT Sheridan Mosher MD POINT OF CARE TEST O RDWILMA Performing Organization Address [facility] Co de Phone Number [facility] [place] [address] * POCT Glucose (11/27/2017 8:08 AM EDT) Glucose, POC 105 65 - 199 mg/dL [facility] Comment: Supplemental ranges: <140 mg/dL before meals <180 mg/dL all other times of the day Blood specimen (specimen) 11/27/2017 8:08 AM EDT 11/27/2017 8:08 AM EDT Sheridan Mosher MD POINT OF CARE TEST O CAROLINAERACALVIN Performing Organization Address [facility] Co de Phone Number [facility] [place] [address] * POCT Glucose (11/27/2017 4:47 AM EDT) Glucose, POC 113 65 - 199 mg/dL [facility] Comment: Supplemental ranges: <140 mg/dL before meals <180 mg/dL all other times of the day Blood specimen (specimen) 11/27/2017 4:47 AM EDT 11/27/2017 4:47 AM EDT Sheridan Mosher MD POINT OF CARE TEST O RDWILMA Performing Organization Address [facility] Co de Phone Number [facility] [place] [address] * (ABNORMAL) Differential, Automated (11/27/2017 4:40 AM EDT) Neutrophil % 84.9 % [facility] Neutrophil Absolute 12.83(H) 1.70 - 6.10 x10(3)/mc L [facility] Lymph % 10.0 % [facility] Lymphocytes Abs 1.5 0.9 - 3.2 x10(3)/[facility] Monocyte % 4.7 % [facility] Monocyte Abs 0.7 0.3 - 0.9 x10(3)/[facility] Eos % 0.0 % [facility] Eosinophils Abs 0.0 0.0 - 0.4 x10(3)/[facility] Basophil % 0.1 % [facility] Baso Absolute 0.0 0.0 - 0.1 x10(3)/[facility] Immature Gran % 0.30 % [facility] Comment: Immature granulocytes(IG's)percentage and absolute count will include metamyelocytes, myelocytes, and promyelocytes. Blood smears from CBCs yielding IG's will be scanned manually for concordance. If this scan disagrees with the automated IG or if promyelocytes are noted, a manual differential will be performed. Immature Gran Absolute 0.04 0.00 - 0.04 x10(3)/[facility] Blood specimen (specimen) 11/27/2017 4:40 AM EDT 11/27/2017 4:46 AM EDT Narrative Resulting Agency Comment Spec In Lab Ange Oreilly MD HEMATOLOGY OR DERABLES [facility] [place] [address] * (ABNORMAL) Hemogram (11/27/2017 4:40 AM EDT) White Blood Cell 15.1(H) 4.0 - 9.5 x10(3)/[facility] Red Blood Cell 4.46 4.00 - 5.21 x10(6)/[facility] Hemoglobin 12.3 11.7 - 15.5 gm/dL [facility] Hematocrit 37.3 35.7 - 45.8 % [facility] Mean Cell Volume 83.6 82.6 - 94.4 fL [facility] Mean Cell Hemoglobin 27.6 27.1 - 32.0 pg [facility] Mean Cell Hemoglobin Concentration 33.0 31.7 - 35.0 gm/dL [facility] Platelet 281 145 - 357 x10(3)/mc L [facility] RDW Standard Deviation 38.5 37.0 - 46.0 fL [facility] RDW coefficient of variation 12.8 11.5 - 14.1 % [facility] Mean Platelet Volume 10.4 7.6 - 12.9 fL [facility] NRBC% auto 0.0 % [facility] NRBC Absolute 0.000 0.000 - 0.000 x10(3)/mc L [facility] Blood specimen (specimen) 11/27/2017 4:40 AM EDT 11/27/2017 4:46 AM EDT Narrative Resulting Agency Comment Spec In Lab Ange Oreilly MD HEMATOLOGY OR DERABLES Performing Organization Address City/[facility]/ZIP Co de Phone Number [facility] [place] [place] [address] * Phosphorus (11/27/2017 4:40 AM EDT) Phosphorus 4.4 2.5 - 4.5 mg/dL [facility] Blood specimen (specimen) 11/27/2017 4:40 AM EDT 11/27/2017 4:46 AM EDT Narrative Resulting Agency Comment Spec In Lab Ange Oreilly MD CHEMISTRY ORD ERABLES Performing Organization Address City/[facility]/ZIP Co de Phone Number [facility] [place] [place] [address] * Magnesium (11/27/2017 4:40 AM EDT) Magnesium 0.81 0.69 - 1.07 mmol/L [facility] Blood specimen (specimen) 11/27/2017 4:40 AM EDT 11/27/2017 4:46 AM EDT Narrative Resulting Agency Comment Spec In Lab Ange Oreilly MD CHEMISTRY ORD ERABLES Performing Organization Address [facility] de Phone Number [facility] [place] [address] * (ABNORMAL) Glucose, fasting (11/27/2017 4:40 AM EDT) [facility] Glucose Fasting 114(H) 65 - 99 mg/dL [facility] Comment: ?Fasting* Glucose Interpretive Criteria Normal ?65-99 mg/dL Impaired Fasting glucose ?100-125 mg/dL Consistent with Diabetes Mellitus ? >or= 126 mg/dL *Fasting is defined as no caloric intake for at least 8 hours In the absence of unequivocal hyperglycemia a plasma glucose value of >or= 126 mg/dL should be repeated on a subsequent day. Diagnosis and Classification of Diabetes Mellitus, Position Statement from the [employer]. ??Diabetes Care, Volume 33, Supplement 1, Sep 2009 Blood specimen (specimen) 11/27/2017 4:40 AM EDT 11/27/2017 4:46 AM EDT Narrative Resulting Agency Comment Spec In Lab Ange Oreilly MD CHEMISTRY ORD ERABLES Performing Organization Address [facility] Co de Phone Number [facility] [place] [address] * Creatinine (11/27/2017 4:40 AM EDT) Creatinine 0.79 0.70 - 1.20 mg/dL [facility] Est Glomerular Filtration Rate >60 >=60 [facility] Comment: The reported eGFR should be multiplied by 1.2 for patients. The MDRD is not an appropriate measure of renal function for patients with body mass extremes or in patients with acute kidney failure. http://[employer]/DHnkdep http://[employer]/DHMCnkf Blood specimen (specimen) 11/27/2017 4:40 AM EDT 11/27/2017 4:46 AM EDT Narrative Resulting Agency Comment Spec In Lab Ange Oreilly MD CHEMISTRY ORD ERABLES Performing Organization Address [facility] Co de Phone Number [facility] [place] [address] * (ABNORMAL) BUN (11/27/2017 4:40 AM EDT) Blood Urea Nitrogen 7(L) 8 - 18 mg/dL [facility] Blood specimen (specimen) 11/27/2017 4:40 AM EDT 11/27/2017 4:46 AM EDT Narrative Resulting Agency Comment Spec In Lab Ange Oreilly MD CHEMISTRY ORD [employer]ES Performing Organization Address [facility] Co de Phone Number [facility] [place] [address] * Electrolytes panel (11/27/2017 4:40 AM EDT) Sodium 139 135 - 145 mmol/L [facility] Potassium Not Perf 3.5 - 5.0 mmol/L [facility] Comment: Unable to quantitate due to sample hemolysis. ??Sample redraw suggested. Called by: MAICOL, Read back by: Rayray Ballesteros, Date/Time:11/27/17 05:46. Please note: ??Patients with WBC >100,000 may have falsely elevated Potassium levels. ??For accurate Potassium quantification in these patients send serum separator tube (gold top) for subsequent determinations. ??Contact the Clinical Chemistry Laboratory if there are any questions. Chloride 100 98 - 107 mmol/L [facility] Carbon Dioxide 27 22 - 31 mmol/L [facility] Anion Gap 12 5 - 15 mmol/L [facility] Blood specimen (specimen) 11/27/2017 4:40 AM EDT 11/27/2017 4:46 AM EDT Narrative Resulting Agency Comment Spec In Lab Ange Oreilly MD CHEMISTRY ORD ERABLES Performing Organization Address City/[facility]/ZIP Co de Phone Number [facility] [place] [address] * POCT Glucose (11/27/2017 12:18 AM EDT) Glucose, POC 143 65 - 199 mg/dL [facility] Comment: Supplemental ranges: <140 mg/dL before meals <180 mg/dL all other times of the day Blood specimen (specimen) 11/27/2017 12:18 AM EDT 11/27/2017 12:18 AM EDT Sheridan Mosher MD POINT OF CARE TEST O PATRICIA Performing Organization Address [facility] Co de Phone Number [facility] [place] [address] * POCT Glucose (11/26/2017 8:40 PM EDT) Glucose, POC 158 65 - 199 mg/dL [facility] Comment: Supplemental ranges: <140 mg/dL before meals <180 mg/dL all other times of the day Blood specimen (specimen) 11/26/2017 8:40 PM EDT 11/26/2017 8:40 PM EDT Sheridan Mosher MD POINT OF CARE TEST O PATRICIA Performing Organization Address City/[facility]/ZIP Co de Phone Number [facility] [place] [place] [address] * Specimen to Pathology (11/26/2017 6:24 PM EDT) AP Specimen 11/26/2017 6:24 PM EDT 11/26/2017 6:24 PM EDT Narrative [facility] - 11/26/2017 6:24 PM EDT Specimen requisition ordered. ??Separate Pathology report to follow Sheridan Mosher MD PATHOLOGY/CYTOLOGY Britany GOMEZ [facility] [place] [address] * Surgical Pathology Report (11/26/2017 6:23 PM EDT) Final Diagnosis [id number] ? Location: 2WST; 0210; A The signing pathologist has (i) examined the relevant preparation(s) for the specimen(s) and (ii) rendered or confirmed the diagnosis(es). . ?Surgical Pathology DIAGNOSIS Fundus, wedge resection: Benign segment of stomach with unremarkable gastric fundic gland mucosa. Electronically signed by: ??Stefani Roberts MD Verified: ??12/01/2017 ?Pathologist Performed at: ??-[facility] [place] Dept. of [place]ology, [place], [place] CLINICAL INFORMATION Specimen Submitted: A - Fundus Clinical History: Failed fundoplication Clinical Diagnosis: Same SPECIMEN PROCESSING A - ??Labeled/Fixativ e: Fundus, fresh. Quantity/Size: Single, 5.5 x 4.5 x 3.5 cm. Tissue Description: Intact, wedge resection of stomach. The serosa is pink, ragged with fibrous adhesions. The mucosa is pink with the usual rugal folds. Sections/Processi ng: ??(R1) ??sns 12/01/2017 3:54 PM EDT [facility] STOMACH STRUCTURE / Unknown 11/26/2017 6:23 PM EDT 11/26/2017 6:23 PM EDT Sheridan Mosher MD PATHOLOGY/CYTOLOGY O PATRICIA [facility] [place] [address] * SCAN DOC: LENS GRINDER ROUGH (11/26/2017 12:00 AM EDT) Anatomical Region Laterality Modality Other Narrative 11/26/2017 12:00 AM EDT Ordered by an unspecified provider. Scanning Provider MEDIA MGR SCAN EXT O RDR/RSLT documented in this encounter Visit Diagnoses Diagnosis S/P partial gastrectomy Other postprocedural status documented in this encounter Admitting Diagnoses Diagnosis S/P partial gastrectomy Other postprocedural status documented in this encounter Administered Medications Inactive Administered Medications - up to 3 most recent administrations Medication Order MAR Action Action Date Dose Rate Site acetaminophen (OFIRMEV) injection 1,000 mg 1,000 mg, Intravenous, at 400 mL/hr, Administer over 15 Minutes, EVERY 6 HOURS SCHEDULED, 3 doses, First dose on Germania 11/27/17 at 0000, Last dose on Germania 11/27/17 at 1200, Maximum dose of acetaminophen is 4000 mg from all sources in 24 hours., Recovery (Recovery-Hospital Unit), Routine, Is ketorolac (Toradol) IV contraindicated? Yes, Can this patient tolerate oral medications or suppositories? No Given 11/27/2017 5:25 AM EDT 1,000 mg 400 mL/hr Given 11/26/2017 11:47 PM EDT 1,000 mg 400 mL/hr acetaminophen (TYLENOL) 650 mg/20.3 mL oral liquid 650 mg 650 mg, Oral, EVERY 4 HOURS, First dose on Germania 11/27/17 at 0930, Until Discontinued, Maximum dose of acetaminophen is 4,000 mg from all sources in 24 hours., Routine Given 11/29/2017 3:13 PM EDT 650 m g Given 11/29/2017 11:03 AM EDT 650 mg Given 11/29/2017 8:29 AM EDT 650 mg bisacodyl (DULCOLAX) suppository 10 mg 10 mg, Rectal, DAILY PRN, Starting on 11/26/17 at 2237, Until 11/29/17 at 2047, Constipation, Administer if no bowel movement within 48 hours to achieve: (1) One bowel movement at least every 48 hours, AND (2) without straining. If multiple PRN bowel medications ordered, start with polyethylene glycol, then lactulose, then oral bisacodyl, then bisacodyl suppository, then magnesium citrate, then tap water enema. Multiple medications may be given concomitantly for constipation., Recovery (Recovery-Hospital Unit), Routine dextrose 50% IV syringe 25-50 mL 25-50 mL (12.5-25 g), Intravenous, EVERY 1 HOUR PRN, Starting on [place] 11/27/17 at 0027, Until 11/29/17 at 2046, Low blood sugar, For BG 50-70: 120 mL Juice or Regular (not diet) soda OR 12.5 gram (25 mL) Dextrose 50% IV OR, if no IV access, 1 mg Glucagon IM. Recheck BG in 30 minutes. May repeat juice, dextrose or glucagon once per episode For BG less than 50: 240 mL Juice or Regular (not diet) soda OR 25 grams (50 mL) Dextrose 50% IV OR, if no IV access, 1 mg Glucagon IM. Recheck BG in 30 minutes. May repeat juice, dextrose, or glucagon once per episode. To avoid extravasation, push Dextrose 50% SLOWLY (3 mL over 1 minute) in a patent, running IV, preferably a central line. For persistent hypoglycemia, consider longer-acting treatment for the duration of the active insulin., Routine diphenhydrAMINE (BENADRYL) injection 25 mg 25 mg, Intravenous, EVERY 6 HOURS PRN, Starting on Fri11/26/17 at 2237, Until 11/29/17 at 2046, Itching, Recovery (Recovery-Hospital Unit), Routine enoxaparin (LOVENOX) injection 40 mg 40 mg, Subcutaneous, NIGHTLY, First dose on Fri11/26/17 at 2300, Until Discontinued, Recovery (Recovery[facility]Hospital Unit), Routine Given 11/28/2017 8:27 PM EDT 4 0 mg Given 11/27/2017 8:49 PM EDT 40 mg Given 11/26/2017 11:47 PM EDT 40 mg glucagon (human recombinant) injection SolR 1 mg 1 mg, Intramuscular, EVERY 1 HOUR PRN, Starting on [place] 11/27/17 at 0027, Until 11/29/17 at 2047, Low blood sugar, For BG 50-70: 120 mL Juice or Regular (not diet) soda OR 12.5 gram (25 mL) Dextrose 50% IV OR, if no IV access, 1 mg Glucagon IM. Recheck BG in 30 minutes. May repeat juice, dextrose or glucagon once per episode For BG less than 50: 240 mL Juice or Regular (not diet) soda OR 25 grams (50 mL) Dextrose 50% IV OR, if no IV access, 1 mg Glucagon IM. Recheck BG in 30 minutes. May repeat juice, dextrose, or glucagon once per episode. To avoid extravasation, push Dextrose 50% SLOWLY (3 mL over 1 minute) in a patent, running IV, preferably a central line. For persistent hypoglycemia, consider longer-acting treatment for the duration of the active insulin., Routine heparin (Porcine) subcutaneous injection 5,000 Units 5,000 Units, Subcutaneous, ONCE, 1 dose, On Fri11/26/17 at 1415, Day of Surgery (Day of Procedure), Routine Given 11/26/2017 2:15 PM EDT 5,000 Units HYDROmorphone (DILAUDID) 1 mg/mL JUDICIAL LAW CLERK 50 mL Intravenous, JUDICIAL LAW CLERK ONLY, Starting on Fri11/26/17 at 2100, Until [place] 11/27/17 at 0900, Recovery (Recovery-Hospital Unit) New Syringe/Cartridge 11/26/2017 8:46 PM EDT 50 mg HYDROmorphone (DILAUDID) injection 0.2-0.4 mg 0.2-0.4 mg, Intravenous, EVERY 5 MIN PRN, Starting on Fri11/26/17 at 2004, Until Fri11/26/17 at 2211, Pain, Give 0.2 mg every 5 minutes PRN for mild to moderate pain (1-5) Give 0.4 mg every 5 minutes PRN for moderate to severe pain (6-10). Hold for respiratory rate less than 10 per minute. Maximum dose 4 mg over one hour. If multiple pain medications are ordered, start with hydromorphone or morphine and use fentanyl for breakthrough pain., PACU Recovery, Routine Given 11/26/2017 8:55 PM EDT 0.2 mg insulin lispro (humaLOG) VIAL injection 1-4 Units 1-4 Units, Subcutaneous, EVERY 4 HOURS SCHEDULED, First dose on Fri11/26/17 at 2100, Until Discontinued, CORRECTION BOLUS Sensitive to insulin lean patient or total daily dose of all insulin needed to achieve glycemic control less than 30 units BG 140 - 160 Give 1 unit BG 161 - 200 Give 2 units BG 201 - 240 Give 3 units BG greater than 240, give 4 units and recheck BG in 2 hours. If less than 240 after two hours, give no insulin and resume prior schedule. If BG remains greater than 240, repeat 4 units (no more than three times) & call for new basal insulin orders. DO NOT hold if NPO, unless specifically told to do so., Routine Given 11/28/2017 4:18 PM EDT 1 Units Given 11/27/2017 12:24 AM EDT 1 Units ketorolac (TORADOL) injection 15 mg 15 mg, Intravenous, EVERY 6 HOURS PRN, Starting on Fri11/28/17 at 0800, Until Fri11/28/17 at 1124, Pain, Routine Given 11/28/2017 8:17 AM EDT 15 mg lactated Ringers infusion 1,000 mL 1,000 mL, at 100 mL/hr, Intravenous, CONTINUOUS, Starting on Fri11/26/17 at 1415, Until Fri11/26/17 at 2004, Day of Surgery (Day of Procedure) New 11/26/2017 7:56 PM EDT New Bag 11/26/2017 2:15 PM EDT 1,000 mLs 100 mL/hr lactated Ringers infusion 90 mL/hr, Intravenous, CONTINUOUS, Starting on Fri11/26/17 at 2100, Until Fri11/28/17 at 0537, Recovery (Recovery[facility]Hospital Unit) New Bag 11/27/2017 7:27 PM EDT 90 mL/h r 90 mL/hr New Bag 11/27/2017 8:34 AM EDT 90 mL/hr 90 mL/hr New Bag 11/26/2017 8:51 PM EDT 90 mL/hr 90 mL/hr lidocaine (XYLOCAINE) 10 mg/mL (1 %) injection 3 mg 3 mg (0.3 mL), Subcutaneous, ONCE PRN, 1 dose, Starting on Fri11/26/17 at 2237, Until Fri11/29/17 at 2047, for discomfort with PIV insertion, Recovery (Recovery[facility]Hospital Unit), Routine naloxone (NARCAN) injection 0.2 mg 0.2 mg, Intravenous, EVERY 1 MIN PRN, Starting on Fri11/26/17 at 2237, Until 11/29/17 at 2046, Opioid Reversal, May repeat every 60 seconds to increase respiratory rate. DO NOT exceed 2 mg total dose. Per JUDICIAL LAW CLERK order., Recovery (Recovery[facility]ospital Unit), Routine ondansetron (ZOFRAN) injection 4 mg 4 mg, Intravenous, EVERY 8 HOURS PRN, Starting on [place] 11/27/17 at 0859, Until 11/29/17 at 2046, Nausea Given 11/29/2017 8:29 AM EDT 4 mg Given 11/28/2017 2:39 PM EDT 4 mg Given 11/27/2017 9:51 AM EDT 4 mg oxyCODONE (ROXICODONE) 5 mg/5 mL solution 5-10 mg 5-10 mg, Oral, EVERY 4 HOURS PRN, Starting on [place]ia 11/27/17 at 0859, Until [place] 11/27/17 at 1438, Pain, for pain 1-5 give 5mg; for pain 6-10 give 10mg, Routine Given 11/27/2017 10:51 AM EDT 10 mg oxyCODONE (ROXICODONE) 5 mg/5 mL solution 5-10 mg 5-10 mg, Oral, EVERY 3 HOURS PRN, Starting on [place] 11/27/17 at 1445, Until 11/29/17 at 2046, Pain, for pain 1-5 give 5mg; for pain 6-10 give 10mg, Routine Given 11/29/2017 2:52 PM EDT 10 mg Given 11/29/2017 11:03 AM EDT 5 mg Given 11/29/2017 3:36 AM EDT 10 mg pantoprazole (PROTONIX) injection 40 mg 40 mg, Intravenous, DAILY, First dose on [place] 11/27/17 at 0900, Until Discontinued, Reconstitute with 10 mL of normal saline to a concentration of 4 mg/mL and infuse slowly over 2 minutes. , Recovery (Recovery[facility]Hospital Unit), Routine Given 11/29/2017 8:29 AM EDT 40 mg Given 11/28/2017 8:17 AM EDT 40 mg Given 11/27/2017 8:36 AM EDT 40 mg polyethylene glycol (MIRALAX) packet 17 g 17 g, Oral, DAILY PRN, Starting on Fri11/26/17 at 2237, Until 11/29/17 at 2046, Constipation, Administer if no bowel movement within 48 hours to achieve: (1) One bowel movement at least every 48 hours, AND (2) without straining. If multiple PRN bowel medications ordered, start with polyethylene glycol, then lactulose, then oral bisacodyl, then bisacodyl suppository, then magnesium citrate, then tap water enema. Multiple medications may be given concomitantly for constipation., Recovery ([facility]overy[facility]ospital Unit), Routine prochlorperazine (COMPAZINE) injection 10 mg 10 mg, Intravenous, EVERY 6 HOURS PRN, Starting on [place] 11/27/17 at 0900, Until 11/29/17 at 2046, Nausea, Use only if no relief from Ondansetron., Routine promethazine (PHENERGAN) injection 12.5 mg 12.5 mg, Intravenous, EVERY 30 MIN PRN, Nausea, Starting on Fri11/26/17 at 2004, 2 doses, Until Fri11/26/17 at 221, VESICANT - Dilute with a minimum of 10 mL saline. LARGE VEIN only. Inject over 10 minutes into the farthest port of a running IV infusion. Remain with the patient and STOP infusion immediately if patient reports burning. Avoid extravasation. If multiple antiemetics are ordered, use ondansetron first and if ineffective use prochlorperazine second and if ineffective use promethazine., PACU Recovery Given 11/26/2017 10:33 PM EDT 6.25 mg Given 11/26/2017 9:00 PM EDT 6.25 mg scopolamine (TRANSDERM-SCOP) 1 mg over 3 days patch 1 patch 1 patch, Transdermal, ONCE, 1 dose, On Fri11/26/17 at 1430, Day of Surgery (Day of Procedure), Routine Patch Applied 11/26/2017 2:30 PM EDT 1 patch 01- Ear Behind (Left) scopolamine (TRANSDERM-SCOP) 1 mg over 3 days patch 1 patch 1 patch, Transdermal, EVERY 72 HOURS, First dose on [place] 11/27/17 at 1400, Until Discontinued, Routine Patch Applied 11/27/2017 3:11 PM EDT 1 patch 02- Ear Behind (Right) sodium chloride 0.9 % flush 5 mL 5 mL, Intravenous, 2 TIMES DAILY, First dose on Fri11/26/17 at 2300, Until Discontinued, Recovery (Recovery[facility]Hospital Unit), Routine Given 11/29/2017 8:30 AM EDT 5 mLs Given 11/28/2017 8:27 PM EDT 5 mLs Given 11/28/2017 8:17 AM EDT 5 mLs sodium chloride 0.9 % flush 5-20 mL 5-20 mL, Intravenous, EVERY 1 MIN PRN, Starting on Fri11/26/17 at 2237, Until 11/29/17 at 2047, flush, Flush pertains to all indwelling lines. Flush per protocol found in the job aid using the link provided on this medication record., Recovery (Recovery[facility]Hospital Unit), Routine documented in this encounter Active and Recently Administered Medications Times are shown in EDT. Scheduled Medication Order 11/27/2017 11/28/2017 11/29/2017 acetaminophen (OFIRMEV) injection 1,000 mg (CANCELED) 1,000 mg, Intravenous, at 400 mL/hr, Administer over 15 Minutes, EVERY 6 HOURS SCHEDULED, 3 doses, First dose on Germania 11/27/17 at 0000, Last dose on Germania 11/27/17 at 1200, Maximum dose of acetaminophen is 4000 mg from all sources in 24 hours., Recovery ([facility] Unit), Routine, Is ketorolac (Toradol) IV contraindicated? Yes, Can this patient tolerate oral medications or suppositories? No 0525 (Given - Provider: Ankush Lowry RN) acetaminophen (TYLENOL) 650 mg/20.3 mL oral liquid 650 mg 650 mg, Oral, EVERY 4 HOURS, First dose on [place] 11/27/17 at 0930, Until Discontinued, Maximum dose of acetaminophen is 4,000 mg from all sources in 24 hours., Routine 1051 (Given - Provider: Ange Griffin RN)1450 (Given - Provider: Ange Griffin, CHELO)1800 (Given - Provider: Ange Griffin RN)2349 (Given - Provider: Ankush Lowry RN) 0359 (Given - Provider: Ankush Lowry RN)0724 (Given - Provider: Ankush Lowry RN)1130 (Given - Provider: Isabel Hammond, RN)1517 (Given - Provider: Isabel Hammond RN)1915 (Given - Provider: Isabel Hammond RN)2330 (Given - Provider: Ankush Lowry RN) 0336 (Given - Provider: Ankush Lowry RN)0829 (Given - Provider: Kaitlyn Buckner RN)1103 (Given - Provider: Kaitlyn Buckner RN)1513 (Given - Provider: Kaitlyn Buckner RN) enoxaparin (LOVENOX) injection 40 mg 40 mg, Subcutaneous, NIGHTLY, First dose on Fri11/26/17 at 2300, Until Discontinued, Recovery (Recovery[facility]Hospital Unit), Routine 2048 (Given - Provider: Ankush Lowry RN) 2026 (Given - Provider: Ankush Lowry RN) insulin lispro (humaLOG) VIAL injection 1-4 Units(Linked Group 1) 1-4 Units, Subcutaneous, EVERY 4 HOURS SCHEDULED, First dose on Fri11/26/17 at 2100, Until Discontinued, CORRECTION BOLUS Sensitive to insulin lean patient or total daily dose of all insulin needed to achieve glycemic control less than 30 units BG 140 - 160 Give 1 unit BG 161 - 200 Give 2 units BG 201 - 240 Give 3 units BG greater than 240, give 4 units and recheck BG in 2 hours. If less than 240 after two hours, give no insulin and resume prior schedule. If BG remains greater than 240, repeat 4 units (no more than three times) & call for new basal insulin orders. DO NOT hold if NPO, unless specifically told to do so., Routine 0024 (Given - Provider: Mara Marie RN)0400 (Not Given - Provider: Mara Marie RN - Reason: Order parameters not met)0827 (Not Given - Provider: Ange Griffin RN - Reason: Order parameters not met)1140 (Not Given - Provider: Ange Griffin RN - Reason: Order parameters not met)1618 (Not Given - Provider: Ange Griffin RN - Reason: Order parameters not met)195 (Not Given - Provider: Ankush Lowry RN - Reason: Order parameters not met)2348 (Not Given - Provider: Ankush Lowry RN - Reason: Order parameters not met) 0426 (Not Given - Provider: Ankush Lowry RN - Reason: Order parameters not met)0800 (Not Given - Provider: Isabel Hammond RN - Reason: Order parameters not met)1200 (Not Given - Provider: Isabel Hammond RN - Reason: Order parameters not met)1618 (Given - Provider: Isable Hammond RN)2026 (Not Given - Provider: Ankush Lowry RN - Reason: Order parameters not met)2334 (Not Given - Provider: Ankush Lowry RN - Reason: Order parameters not met) 0358 (Not Given - Provider: Ankush Lowry RN - Reason: Order parameters not met)0800 (Not Given - Provider: Kaitlyn Buckner RN - Reason: Order parameters not met)1200 (Not Given - Provider: Kaitlyn Buckner RN - Reason: Order parameters not met)1600 (Not Given - Provider: Kaitlyn Buckner RN - Reason: Order parameters not met) pantoprazole (PROTONIX) injection 40 mg 40 mg, Intravenous, DAILY, First dose on Fri11/27/17 at 0900, Until Discontinued, Reconstitute with 10 mL of normal saline to a concentration of 4 mg/mL and infuse slowly over 2 minutes. , Recovery (Recovery[facility]ospital Unit), Routine 0836 (Given - Provider: Ange Griffin RN) 0817 (Given - Provider: Isabel Hammond RN) 0829 (Given - Provider: Kaitlyn Buckner RN) scopolamine (TRANSDERM-SCOP) 1 mg over 3 days patch 1 patch (CANCELED)(Linked Group 2) 1 patch, Transdermal, EVERY 72 HOURS, First dose on Fri11/27/17 at 1400, Until Discontinued, Routine 1511 (Patch Applied - Provider: Ange Griffin RN) sodium chloride 0.9 % flush 5 mL 5 mL, Intravenous, 2 TIMES DAILY, First dose on Fri11/26/17 at 2300, Until Discontinued, Recovery ([facility]), Routine 0836 (Given - Provider: Ange Griffin RN)2049 (Given - Provider: Ankush M [place], RN) 0817 (Given - Provider: Isabel Hammond, CHELO)2026 (Given - Provider: Ankush Lowry, RN) 0830 (Given - Provider: Kaitlyn Buckner RN) Continuous Medication Order 11/27/2017 11/28/2017 11/29/2017 lactated Ringers infusion (CANCELED) 90 mL/hr, Intravenous, CONTINUOUS, Starting on Fri11/26/17 at 2100, Until Fri11/28/17 at 0537, Recovery (Recovery[facility]Hospital Unit) 0834 (New Bag - Provider: Ange Griffin, CHELO)1927 (New Bag - Provider: Ankush Lowry, RN) 0620 (Stopped - Provider: Ankush Lowry RN) PRN Medication Order 11/27/2017 11/28/2017 11/29/2017 bisacodyl (DULCOLAX) suppository 10 mg 10 mg, Rectal, DAILY PRN, Starting on Fri11/26/17 at 2237, Until 11/29/17 at 2046, Constipation, Administer if no bowel movement within 48 hours to achieve: (1) One bowel movement at least every 48 hours, AND (2) without straining. If multiple PRN bowel medications ordered, start with polyethylene glycol, then lactulose, then oral bisacodyl, then bisacodyl suppository, then magnesium citrate, then tap water enema. Multiple medications may be given concomitantly for constipation., Recovery (Rec[facility]ospital Unit), Routine dextrose 50% IV syringe 25-50 mL(Linked Group 3) 25-50 mL (12.5-25 g), Intravenous, EVERY 1 HOUR PRN, Starting on [place] 11/27/17 at 0027, Until 11/29/17 at 2046, Low blood sugar, For BG 50-70: 120 mL Juice or Regular (not diet) soda OR 12.5 gram (25 mL) Dextrose 50% IV OR, if no IV access, 1 mg Glucagon IM. Recheck BG in 30 minutes. May repeat juice, dextrose or glucagon once per episode For BG less than 50: 240 mL Juice or Regular (not diet) soda OR 25 grams (50 mL) Dextrose 50% IV OR, if no IV access, 1 mg Glucagon IM. Recheck BG in 30 minutes. May repeat juice, dextrose, or glucagon once per episode. To avoid extravasation, push Dextrose 50% SLOWLY (3 mL over 1 minute) in a patent, running IV, preferably a central line. For persistent hypoglycemia, consider longer-acting treatment for the duration of the active insulin., Routine diphenhydrAMINE (BENADRYL) injection 25 mg 25 mg, Intravenous, EVERY 6 HOURS PRN, Starting on 11/26/17 at 2237, Until 11/29/17 at 2046, Itching, Recovery (Recovery[facility]ospital Unit), Routine glucagon (human recombinant) injection SolR 1 mg(Linked Group 3) 1 mg, Intramuscular, EVERY 1 HOUR PRN, Starting on [place] 11/27/17 at 0027, Until 11/29/17 at 2046, Low blood sugar, For BG 50-70: 120 mL Juice or Regular (not diet) soda OR 12.5 gram (25 mL) Dextrose 50% IV OR, if no IV access, 1 mg Glucagon IM. Recheck BG in 30 minutes. May repeat juice, dextrose or glucagon once per episode For BG less than 50: 240 mL Juice or Regular (not diet) soda OR 25 grams (50 mL) Dextrose 50% IV OR, if no IV access, 1 mg Glucagon IM. Recheck BG in 30 minutes. May repeat juice, dextrose, or glucagon once per episode. To avoid extravasation, push Dextrose 50% SLOWLY (3 mL over 1 minute) in a patent, running IV, preferably a central line. For persistent hypoglycemia, consider longer-acting treatment for the duration of the active insulin., Routine ketorolac (TORADOL) injection 15 mg (CANCELED) 15 mg, Intravenous, EVERY 6 HOURS PRN, Starting on Fri11/28/17 at 0800, Until Fri11/28/17 at 1124, Pain, Routine 816 (Given - Provider: Isabel Hammond RN) lidocaine (XYLOCAINE) 10 mg/mL (1 %) injection 3 mg 3 mg (0.3 mL), Subcutaneous, ONCE PRN, 1 dose, Starting on 11/26/17 at 2237, Until 11/29/17 at 2046, for discomfort with PIV insertion, Recovery (Recovery[facility]Hospital Unit), Routine naloxone (NARCAN) injection 0.2 mg 0.2 mg, Intravenous, EVERY 1 MIN PRN, Starting on 11/26/17 at 2237, Until 11/29/17 at 2047, Opioid Reversal, May repeat every 60 seconds to increase respiratory rate. DO NOT exceed 2 mg total dose. Per JUDICIAL LAW CLERK order., Recovery (Rec[facility]ospital Unit), Routine ondansetron (ZOFRAN) injection 4 mg 4 mg, Intravenous, EVERY 8 HOURS PRN, Starting on [place] 11/27/17 at 0859, Until 11/29/17 at 2047, Nausea 0951 (Given - Provider: Ange Griffin RN) 1439 (Given - Provider: Hermelinda Tucker, CHELO) 0829 (Given - Provider: Kaitlyn Buckner RN) oxyCODONE (ROXICODONE) 5 mg/5 mL solution 5-10 mg (CANCELED) 5-10 mg, Oral, EVERY 4 HOURS PRN, Starting on [place] 11/27/17 at 0859, Until [place] 11/27/17 at 1438, Pain, for pain 1-5 give 5mg; for pain 6-10 give 10mg, Routine 1051 (Given - Provider: Ange Griffin RN) oxyCODONE (ROXICODONE) 5 mg/5 mL solution 5-10 mg 5-10 mg, Oral, EVERY 3 HOURS PRN, Starting on [place] 11/27/17 at 1445, Until 11/29/17 at 2047, Pain, for pain 1-5 give 5mg; for pain 6-10 give 10mg, Routine 1449 (Given - Provider: Ange Griffin RN)1758 (Given - Provider: Ange Griffin RN)2048 (Given - Provider: Ankush Lowry, CHELO)2348 (Given - Provider: Ankush Lowry, CHELO) 0400 (Given - Provider: Ankush Lowry, CHELO)0724 (Given - Provider: Ankush Lowry, CHELO)1130 (Given - Provider: Isabel Hammond RN)1445 (Given - Provider: Hermelinda Tucker, CHELO)1928 (Given - Provider: Ankush Lowry, CHELO)2330 (Given - Provider: Ankush Lowry, RN) 0336 (Given - Provider: Ankush Lowry, RN)1103 (Given - Provider: Kaitlyn Buckner, RN)1452 (Given - Provider: Kaitlyn Buckner, CHELO) polyethylene glycol (MIRALAX) packet 17 g 17 g, Oral, DAILY PRN, Starting on Fri11/26/17 at 2237, Until 11/29/17 at 2046, Constipation, Administer if no bowel movement within 48 hours to achieve: (1) One bowel movement at least every 48 hours, AND (2) without straining. If multiple PRN bowel medications ordered, start with polyethylene glycol, then lactulose, then oral bisacodyl, then bisacodyl suppository, then magnesium citrate, then tap water enema. Multiple medications may be given concomitantly for constipation., Recovery (Recovery[facility]ospital Unit), Routine prochlorperazine (COMPAZINE) injection 10 mg 10 mg, Intravenous, EVERY 6 HOURS PRN, Starting on Fri11/27/17 at 0900, Until 11/29/17 at 2046, Nausea, Use only if no relief from Ondansetron., Routine sodium chloride 0.9 % flush 5-20 mL 5-20 mL, Intravenous, EVERY 1 MIN PRN, Starting on Fri11/26/17 at 2237, Until 11/29/17 at 2046, flush, Flush pertains to all indwelling lines. Flush per protocol found in the job aid using the link provided on this medication record., Recovery ([facility]overy[facility]ospital Unit), Routine Linked Groups Order Group 1: POCT Fingerstick Glucose (CANCELED) Routine, EVERY 4 HOURS, First occurrence on Fri11/27/17 at 0000, Until Specified, Consider choosing EVERY 4 HOURS as frequency for: - Type 1 Diabetes - At least 24 hours after coming off an insulin drip - At least 24 hours after admission for DKA - Hypoglycemia unawareness - Patients who are otherwise unstable Select the same frequency for the correction bolus insulin order And insulin lispro (humaLOG) VIAL injection 1-4 UnitsJump to med 1-4 Units, Subcutaneous, EVERY 4 HOURS SCHEDULED, First dose on Fri11/26/17 at 2100, Until Discontinued, CORRECTION BOLUS Sensitive to insulin lean patient or total daily dose of all insulin needed to achieve glycemic control less than 30 units BG 140 - 160 Give 1 unit BG 161 - 200 Give 2 units BG 201 - 240 Give 3 units BG greater than 240, give 4 units and recheck BG in 2 hours. If less than 240 after two hours, give no insulin and resume prior schedule. If BG remains greater than 240, repeat 4 units (no more than three times) & call for new basal insulin orders. DO NOT hold if NPO, unless specifically told to do so., Routine Group 2: scopolamine (TRANSDERM-SCOP) 1 mg over 3 days patch 1 patch (CANCELED)Jump to med 1 patch, Transdermal, EVERY 72 HOURS, First dose on [place] 11/27/17 at 1400, Until Discontinued, Routine And scopolamine (TRANSDERM-SCOP) 1 mg patch Patch Verification (CANCELED) Transdermal, 2 TIMES DAILY, First dose on Fri11/28/17 at 0145, Until Discontinued, Verify scopolamine 1 mg patch. And scopolamine (TRANSDERM-SCOP) 1 mg patch Patch Removal (CANCELED) Transdermal, EVERY 72 HOURS, First dose on Fri11/30/17 at 1345, Until Discontinued, Remove scopolamine 1 mg patch Group 3: dextrose 50% IV syringe 25-50 mLJump to med 25-50 mL (12.5-25 g), Intravenous, EVERY 1 HOUR PRN, Starting on [place] 11/27/17 at 0027, Until 11/29/17 at 2047, Low blood sugar, For BG 50-70: 120 mL Juice or Regular (not diet) soda OR 12.5 gram (25 mL) Dextrose 50% IV OR, if no IV access, 1 mg Glucagon IM. Recheck BG in 30 minutes. May repeat juice, dextrose or glucagon once per episode For BG less than 50: 240 mL Juice or Regular (not diet) soda OR 25 grams (50 mL) Dextrose 50% IV OR, if no IV access, 1 mg Glucagon IM. Recheck BG in 30 minutes. May repeat juice, dextrose, or glucagon once per episode. To avoid extravasation, push Dextrose 50% SLOWLY (3 mL over 1 minute) in a patent, running IV, preferably a central line. For persistent hypoglycemia, consider longer-acting treatment for the duration of the active insulin., Routine Or glucagon (human recombinant) injection SolR 1 mgJump to med 1 mg, Intramuscular, EVERY 1 HOUR PRN, Starting on [place] 11/27/17 at 0027, Until 11/29/17 at 2047, Low blood sugar, For BG 50-70: 120 mL Juice or Regular (not diet) soda OR 12.5 gram (25 mL) Dextrose 50% IV OR, if no IV access, 1 mg Glucagon IM. Recheck BG in 30 minutes. May repeat juice, dextrose or glucagon once per episode For BG less than 50: 240 mL Juice or Regular (not diet) soda OR 25 grams (50 mL) Dextrose 50% IV OR, if no IV access, 1 mg Glucagon IM. Recheck BG in 30 minutes. May repeat juice, dextrose, or glucagon once per episode. To avoid extravasation, push Dextrose 50% SLOWLY (3 mL over 1 minute) in a patent, running IV, preferably a central line. For persistent hypoglycemia, consider longer-acting treatment for the duration of the active insulin., Routine documented in this encounter Care Teams Ski Molder Relationship Specialty Start Date End Date Laura Ross, [employer] [address] [place] [id number] PCP - General Family Medicine 10/01/17 08/21/22 documented as of this encounter
--- OUTSIDE RECORDS SUMMARY | 2024-06-12 13:43 | XMS_ITS | Encounter Summary ---
Author Organization [facility] [place] [address] Care Team Providers Care Felt Pad Cutter Name Role Phone Laura Ross LOUIE Primary Care Provider [phone] Encounter Details Date Type Department Care Team (Late st Contact Info) Description 03/19/2019 External [place] [address] Provider, Scanning Social History Tobacco Use Types Packs/Day Years [...] PM EDT Hospital [place] [address] [place] [address] 07/09/2024 8:30 AM EDT Appointment XRay at [address] [address] [place] [address] 07/17/2024 8:00 AM EDT Procedure [place] [address] 08/26/2024 8:00 AM EST Office [place] [address] 08/27/2024 9:00 AM EST Clinical Support [place] [address] documented as of this encounter Procedures Procedure Name Priority Date/Time Associated Diagnosis Comments SURGICAL PATHOLOGY SCAN Routine 03/19/2019 documented in this encounter Results * Scan Doc: Surgical Pathology (03/19/2019) Historical Provider MD [place] MGR SCAN EX T ORDR/RSLT documented in this encounter Visit Diagnoses Not on filedocumented in this encounter Care Teams Felt Pad Cutter Relationship Specialty Start Date End Date Laura Ross APRN [address] [place] [id number] PCP - General Family Medicine 10/01/17 08/21/22 documented as of this encounter
--- OUTSIDE RECORDS SUMMARY | 2024-06-12 13:43 | XMS_ITS | Encounter Summary ---
Author Organization [facility] [address] Care Team Providers Care Health And Nutrition Specialist Name Role Phone Laura Ross LOUIE Primary Care Provider [phone] Encounter Details Date Type Department Care Team (Latest Contact Info) Description 12/11/2020 9:57 PM EDT - 12/11/2020 11:59 PM EDT Hospital [place] [address] Discharge Disposition: Home Social History Tobacco Use [...] PM EDT Hospital [place] [address] [place] [address] 07/09/2024 8:30 AM EDT Appointment XRay at [address] [address] [place] [address] 07/17/2024 8:00 AM EDT Procedure [place] [address] 08/26/2024 8:00 AM EST Office [place] [address] 08/27/2024 9:00 AM EST Clinical [place] [address] documented as of this encounter Procedures Procedure Name Priority Date/Time Associated Diagnosis Comments SURGICAL PATHOLOGY REPORT Routine 12/11/2020 8:50 AM EDT documented in this encounter Results * Surgical Pathology Report (12/11/2020 8:50 AM EDT) Final Diagnosis [id number] ? Location: [facility] The signing pathologist has (i) examined the relevant preparation(s) for the specimen(s) and (ii) rendered or confirmed the diagnosis(es). . ?Surgical Pathology DIAGNOSIS Needle biopsies: ?Right breast Diagnosis: ?Benign breast tissue (see ?Discussion). Microcalcificat ions: ??N/A Electronically signed by: ??Misa Retana DO Verified: ??12/12/2020 ?Pathologist Performed at: ??-[facility] [place] Dept. of Pathology, [place], [place] DISCUSSION Histologic features of a mass or lesion are not identified in this sample. Radiologic correlation is recommended. SPECIMEN(S) SUBMITTED A - Unspecific lump in the right breast, upper outer quadrant. Referring Identifier: ??[id number] CLINICAL INFORMATION Unspecified lump in the right breast, upper outer quadrant SPECIMEN PROCESSING A - Labeled/Fixativ e: Right breast, formalin. Quantity/Size: Three, ranging from 0.7 x 0.1 cm, 1.2 x 0.2 cm Tissue Description: Yellow to focally pink red fibrofatty needle core biopsies. Sections/Proces sing: Entirely submitted in 1 cassette labeled A1. Ischemic Time: <1 minute ??shb 12/12/2020 12:39 PM EDT [facility] BREAST STRUCTURE / Unknown 12/11/2020 8:50 AM EDT 12/11/2020 8:50 AM EDT Narrative Resulting Agency Comment Spec In Lab / [facility] Laura Ross APRN PATHOLOGY/CYTOLOGY O RDERABLES [facility] [place] [address] documented in this encounter Visit Diagnoses Not on filedocumented in this encounter Care Teams Health And Nutrition Specialist Relationship Specialty Start Date End Date Laura Ross APRN [address] [place] [id number] PCP - General Family Medicine 10/01/17 08/21/22 documented as of this encounter
--- OUTSIDE RECORDS SUMMARY | 2024-06-12 13:43 | XMS_ITS | Encounter Summary ---
Author [facility] [place] [address] Care Team Providers Care Drafter Geophysical Name Role Phone Laura Ross LOUIE Primary Care Provider Encounter Details Date Type Department Care Team (Late st Contact Info) Description 12/12/2020 External [place] [address] Provider, Scanning Social History Tobacco Use Types [...] PM EDT Hospital [place] [address] [place] [address] 07/09/2024 8:30 AM EDT Appointment XRay at [address] [phone] [place] [address] 07/17/2024 8:00 AM EDT Procedure [place] [address] 08/26/2024 8:00 AM EST Office Visit [place] [address] 08/27/2024 9:00 AM EST Clinical Support [place] [address] documented as of this encounter Procedures Procedure Name Priority Date/Time Associated Diagnosis Comments SURGICAL PATHOLOGY SCAN Routine 12/12/2020 documented in this encounter Results * Scan Doc: Surgical Pathology (12/12/2020) Historical Provider MD [facility] MGR SCAN EX T ORDR/RSLT documented in this encounter Visit Diagnoses Not on filedocumented in this encounter Care Teams Drafter Geophysical Relationship Specialty Start Date End Date Laura Ross APRN [address] [place] [address] PCP - General Family Medicine 10/01/17 08/21/22 documented as of this encounter
--- OUTSIDE RECORDS SUMMARY | 2024-06-12 13:43 | XMS_ITS | Encounter Summary ---
Author Organization [facility] Address [facility] [place] [address] Care Team Providers Care Manager Package Name Role Phone Laura Ross SEASONAL PACKAGE HANDLER Primary Care Provider [phone] Reason for Visit * Auth/Cert Specialty Diagnoses [...] Expiration Date Visits Re quested Visits Authorized [id number] 1 1 Encounter Details Date Type Department Care Team (Late st Contact Info) Description 11/26/2017 2:57 PM EDT - 11/26/2017 7:25 PM EDT Surgery [place] [address] Sheridan Mosher MD [facility] [place] [address] LAPAROSCOPIC REVISION OF GABRIELLA FUNDOPLASTY (WRVU 48.75) Social History Tobacco Use Types Packs/Day Years [...] Revision of Gabriella Fundoplasty with Partial Gastrectomy [id number] Reconstruction and Intraoperative Upper Endoscopy Surgeons: Surgeon(s) [...] period of time. She then moved to [place] and at some point experienced food impaction for which she underwent emergent take-down of her previous wrap. Her GERD symptoms recurred thereafter and she had a redo Gabriella fundoplication in November 2012. Unfortunately, shehas had persistent epigastric pain, post-prandial bloating and [...] strict medically supervised weight loss with an DRUG COORDINATOR in [place] for 3 months and still gained weight. 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 She continues to be Vitamin D deficient [...] changed to oral pain medications and the FIBERGLASS BOAT BUILDER was discontinued on POD# 1. She was [...] Data: Recent Labs 03/17/18 0350 03/16/18 0242 03/15/18 0440 WBC 9.6* 9.3 15.1* HGB 11.7 10.5* 12.3 HCT 36.8 32.7* 37.3 PLATELET 216 212 281 Recent Labs 03/17/18 0350 03/16/18 0242 03/15/18 0440 NA 144 142 139 K 4.0 [...] Dorinda Covington MD Obstetrics and Gynecology at [place] [phone] 12/18/2017 10:40 AM Nedra Ling LD; Sheridan Mosher MD General Surgery at [place] [phone] 02/25/2018 2:00 PM Nina Ibanez Hematology/Oncology at [facility] [phone] Instructions Given to Patient at Discharge: SURGERY DISCHARGE INFORMATION SURGERY SUPPORT TEAM CONTACT NUMBERS (Mon-Fri 8am - 5pm): General Surgery [phone] Surgeons: Karen Cherry and Ange [phone] Dietitians: [phone] Outside of regular business hours, including weekends and holidays: Ask for General Surgery resident quality control engineering technician [phone] FOR EMERGENCIES: CALL 911 (trouble breathing, chest [...] weeks at the General Surgery Outpatient Clinic (Full Stack Engineer 4L, [facility] Future Appointments Date Time Provider Department Center 12/10/2017 1:00 PM Dorinda Covington MD [facility] 12/18/2017 10:40 AM Sheridan Mosher MD [facility] 02/25/2018 2:00 PM Nina Ibanez [facility] [place] [facility] BATHING AND WOUND CARE: ?? You may [...] Follow up with primary care provider or surgical specialist in 1-2 weeks in order to [...] for life. Signed: Lynda De Santiago MD [facility] [id number] Primary Care Physician: Laura Ross APRN [address] [facility] [address] documented in this encounter Discharge Instructions * Patient Instructions* Ange Cordon MD - 11/28/2017 4:07 PM EDT SURGERY DISCHARGE INFORMATION SUPPORT TEAM CONTACT NUMBERS (Mon-Fri 8am - 5pm): General Surgery and Bariatric Surgery [phone] Surgeons: Karen Cherry and Ange [phone] Employment Supervisor: [phone] Dietitians: [phone] Outside of regular business hours, including weekends and holidays: Ask for General Surgery resident quality control engineering technician [phone] FOR EMERGENCIES: CALL 911 (trouble breathing, chest [...] weeks at the General Surgery Outpatient Clinic (Full Stack Engineer 4, [facility]). Future Appointments Date Time Provider Department Center 12/10/2017 1:00 PM Dorinda Covington MD Leb ObGyn [address] [place] [address] 12/18/2017 10:40 AM Sheridan Mosher MD Leb Surg [facility] 02/25/2018 2:00 PM Nina Ibanez [facility] [place] [facility] BATHING AND WOUND CARE: ?? You may [...] Follow up with primary care provider or surgical specialist in 1-2 weeks in order to [...] SpO2: [88 %-98 %] 11/27 0701 - 03/16 0700 In: 4067.2 [P.O.:2939; I.V.:1128.2] Out: 2300 [...] NEURO: Pain control with IV Tylenol and FIBERGLASS BOAT BUILDER Dilaudid; transition to elixir Tylenol and Oxycodone. [...] 11/27/2017 5:23 AM EDT Pt arrived to [facility] at 0520 after report received from Mara in PACU. Pt oriented to floor, call system, purposeful rounding, fall prevention program. VSS. Lap sites on abdomen CDI under bandaids. Denies nausea, states pain gets better with FIBERGLASS BOAT BUILDER but is afraid to fall asleep because of pain. Denies CP/SOB * Mara Marie RN - 11/27/2017 12:53 AM EDT 2300 - report received from LOAN SERVICES PROFESSIONAL. Care assumed. Pt will remain in PACU [...] LAPAROSCOPIC REVISION OF GABRIELLA FUNDOPLASTY performed by Sehridan Mosher MD at [facility] MAIN OR ??? PRO UPPER GI ENDOSCOPY, BIOPSY ?? 09/04/2012 ?? EGD WITH BIOPSY performed by Didier Jones MD at [facility] ENDOSCOPY ??? PRO UPPER GI ENDOSCOPY, BIOPSY N/A 07/22/2016 ?? UPPER GASTROINTESTINAL ENDOSCOPY,WITH BIOPSY SINGLE OR MULTIPLE performed by Sheridan Mosher MDat [facility] ENDOSCOPY ??? PRO UPPER GI ENDOSCOPY, DIAGNOSTIC ?? 11/25/2012 ?? ENDOSCOPY, UPPER GI, DIAGNOSTIC, WITH OR WITHOUT SPECIMENS performed by Sheridan Mosher MD at [facility] MAIN OR ??? PRO UPPER GI ENDOSCOPY, DIAGNOSTIC ?? 07/18/2014 ?? EGD, UPPER GI ENDOSCOPY performed by Sheridan Mosher MD at [facility] ENDOSCOPY ??? UPPER GI ENDOSCOPY, EXAM ?? 09/04/2012 ?? UPPER GI ENDOSCOPY performed by Didier Jones MD at [facility] ENDOSCOPY ?? No current facility-administered medications on [...] EVALUATION: * Plan of Care - Isabel Hammond, RN - 11/28/2017 4:45 PM EDT Problem: [...] Outcome: Ongoing (Interventions Implemented as Appropriate) 11/28/17 0826 11/28/17 1624 Daily Care Interventions Self-Care Promotion -- [...] Outcome: Ongoing (Interventions Implemented as Appropriate) 11/28/17 0826 Safety Interventions Isolation Precautions standard precautions maintained [...] Patient ambulated in hallway several times today. FIBERGLASS BOAT BUILDER discontinued this morning and patient now onliquid [...] and children. Two adult children live in [place]; youngest son attends [employer] [employer] in January 2018. Behavioral Health History: Denied. Substance Use/Abuse: Denied Other Pertinent/Service Specific Information: Pt has had many surgery in her past; she is very familiar with post-operative recovery. Health/Prescription Coverage: Primary Insurance: [employer] [facility] Secondary Insurance: [facility] Prescription Coverage: Pt was not sure if she has prescription coverage but said she can handle outof pocket co-pays of generic's. [place] Other: no Primary Care Provider: Laura Ross, LOUIE [phone] Patient/Caregiver Goals of Treatment: Effective pain management; [...] of care planning. Nena Bright RN, BSN Marketing Automation Analyst-2 West Pager # [phone] [email or web address] * Plan of Care - Mara Marie [...] the night, and thus only using her FIBERGLASS BOAT BUILDER intermittently. When she got up to walk to the bathroom (succsesfully voiding with low PVR) she c/o severe pain, but was able to catch up once returned to bed. VSS. NPO maintained. C/o nausea last hs, medicated with relief stated. PLAN MOVING FORWARD: mobilize; nausea meds as needed; FIBERGLASS BOAT BUILDER INDIVIDUALIZED FALL PREVENTION INTERVENTIONS: Patient-specific fall risk [...] Ongoing (Interventions Implemented as Appropriate) 11/27/17 0230 Interdisciplinary Rounds/Family Conf Participants patient;physician Problem: Pain, Acute (Adult) Goal: Identify Related Risk Factors and Signs and Symptoms Related risk factors and signs and symptoms are identified upon initiation of Human Response Clinical Practice Guideline (CPG) Outcome: Ongoing (Interventions Implemented as Appropriate) 11/27/17 023 Pain, Acute Related Risk Factors (Acute Pain) [...] Mosher MD - 11/26/2017 8:05 PM EDT [facility] Operative Note Patient Name: Mora Bolanos : [id number] MR#: [id number] Case Date: 11/26/2017 Surgeon: Surgeon(s) and Role: [...] Order Time SPECIMEN TO PATHOLOGY OR 26 [id number] FAILED FUNDOPLICATION Fundus Excision No 11/26/2017 6:23 [...] sac was entered. A firing of an Bragster-NAY 60 stapler with a blue load in [...] distal bowel was chosen to create the nnzp-ma-ilss jejunojejunostomy. The duodenal, afferent limb was approximated [...] suture in two layers with a 30 Citizen [place] Bougie (blunt-tipped) in place. The Bougie was [...] PM EDT Hospital [place] [address] [place] [address] 07/09/2024 8:30 AM EDT Appointment XRay at [address] [address] [place] [address] 07/17/2024 8:00 AM EDT Procedure visit [place] [address] 08/26/2024 8:00 AM EST Office [place] [address] 08/27/2024 9:00 AM EST Clinical Support [place] [address] documented as of this encounter Procedures Procedure [...] 48.75) 11/26/2017 4:32 PM EDT FAILED FUNDOPLICATION CAMPUS RECEPTIONIST SCAN 11/26/2017 12:00 AM EDT documented in this encounter Results * POCT Glucose (11/29/2017 3:08 PM EDT) Glucose, POC 92 65 - 199 mg/dL [facility] Comment: Supplemental ranges: <140 mg/dL before meals <180 mg/dL all other times of the day Blood specimen (specimen) 11/29/2017 3:08 PM EDT 11/29/2017 3:08 PM EDT Sheridan Mosher MD POINT OF CARE TEST O PATRICIA Performing Organization Address [facility] Co de Phone Number [facility] [place] [address] * POCT Glucose (11/29/2017 11:54 AM EDT) Glucose, POC 103 65 - 199 mg/dL [facility] Comment: Supplemental ranges: <140 mg/dL before meals <180 mg/dL all other times of the day Blood specimen (specimen) 11/29/2017 11:54 AM EDT 11/29/2017 11:54 AM EDT Sheridan Mosher MD POINT OF CARE TEST O PATRICIA [facility] [place] [place] [address] * POCT Glucose (11/29/2017 7:43 AM EDT) Glucose, POC 88 65 - 199 mg/dL [facility] Comment: Supplemental ranges: <140 mg/dL before meals <180 mg/dL all other times of the day Blood specimen (specimen) 11/29/2017 7:43 AM EDT 11/29/2017 7:43 AM EDT Sheridan Mosher MD POINT [place] [address] * Differential, Automated (11/29/2017 3:50 AM EDT) Pathologist [facility] Neutrophil % 61.6 % [facility] Neutrophil Absolute 5.94 1.70 - 6.10 x10(3)/[facility] LABORATORY Lymph % 28.8 % [facility] Lymphocytes Abs 2.8 0.9 - 3.2 x10(3)/[facility] LABORATORY Monocyte % 6.2 % [facility] Monocyte Abs 0.6 0.3 - 0.9 x10(3)/[facility] LABORATORY Eos % 2.7 % [facility] Eosinophils Abs 0.3 0.0 - 0.4 x10(3)/[facility] LABORATORY Basophil % 0.4 % [facility] Baso Absolute 0.0 0.0 - 0.1 x10(3)/[facility] LABORATORY Immature Gran % 0.30 % [facility] Comment: Immature granulocytes(IG's)percentage and absolute count will include metamyelocytes, myelocytes, and promyelocytes. Blood smears from CBCs yielding IG's will be scanned manually for concordance. If this scan disagrees with the automated IG or if promyelocytes are noted, a manual differential will be performed. Immature Gran Absolute 0.03 0.00 - 0.04 x10(3)/mcL [facility] Blood specimen (specimen) 11/29/2017 3:50 AM EDT 11/29/2017 4:03 AM EDT Narrative Resulting Agency Comment Spec In Lab Ange Oreilly MD HEMATOLOGY OR DERABLES Performing Organization Address City/State/[facility] Co de Phone Number [facility] [place] [address] * (ABNORMAL) Hemogram (11/29/2017 3:50 AM EDT) White Blood Cell 9.6(H) 4.0 - 9.5 x10(3)/[facility]AT[facility] Red Blood Cell 4.24 4.00 - 5.21 x10(6)/[facility] Hemoglobin 11.7 11.7 - 15.5 gm/dL [facility] Hematocrit 36.8 35.7 - 45.8 % [facility] Mean Cell Volume 86.8 82.6 - 94.4 [facility] LABORATORY Mean Cell Hemoglobin 27.6 27.1 - 32.0 pg [facility] Mean Cell Hemoglobin Concentration 31.8 31.7 - 35.0 gm/dL [facility] Platelet 216 145 - 357 x10(3)/[facility] LABORATORY RDW Standard Deviation 40.6 37.0 - 46.0 [facility] LABORATORY RDW coefficient of variation 12.8 11.5 - 14.1 % [facility] Mean Platelet Volume 10.0 7.6 - 12.9 [facility] LABORATORY NRBC% auto 0.0 % [facility] NRBC Absolute 0.000 0.000 - 0.000 x10(3)/[facility] Blood specimen (specimen) 11/29/2017 3:50 AM EDT 11/29/2017 4:03 AM EDT Narrative Resulting Agency Comment Spec In Lab Ange Oreilly MD HEMATOLOGY OR DERABLES [facility] [address] * (ABNORMAL) Basic Metabolic Panel (non-fasting) (11/29/2017 3:50 AM EDT) Glucose 100 65 - 199 mg/dL [facility] Comment:Diabetes: >=200 mg/d L plus symptoms Blood Urea Nitrogen 4(L) 8 - 18 mg/dL [facility] Creatinine 0.66(L) 0.70 - 1.20 mg/dL [facility] Sodium 144 135 - 145 mmol/L [facility] Potassium 4.0 3.5 - 5.0 mmol/L [facility] Comment: Please note: ??Patients with WBC >100,000 may have falsely elevated Potassium levels. ??For accurate Potassium quantification in these patients send serum separator tube (gold top) for subsequent determinations. ??Contact the Clinical Chemistry Laboratory if there are any questions. Chloride 106 98 - 107 mmol/L [facility] Carbon Dioxide 28 22 - 31 mmol/L [facility] Anion Gap 10 5 - 15 mmol/L [facility] Calcium 9.0 8.5 - 10.5 mg/dL [facility] Comment:result rechecked-jt Est Glomerular Filtration Rate >60 >=60 [facility] Comment: The reported eGFR should be multiplied by 1.2 for patients. The MDRD is not an appropriate measure of renal function for patients with body mass extremes or in patients with acute kidney failure. http://Coub.BrandFiesta/DHnkdep http://Coub.com/DHMCnkf Blood specimen (specimen) 11/29/2017 3:50 AM EDT 11/29/2017 4:03 AM EDT Narrative Resulting Agency Comment Spec In Lab Ange Oreilly MD CHEMISTRY ORD ERABLES Performing Organization Address [facility]/ZIP Co de Phone Number [facility] [place] [address] * POCT Glucose (11/29/2017 3:49 AM EDT) Glucose, POC 91 65 - 199 mg/dL [facility] Comment: Supplemental ranges: <140 mg/dL before meals <180 mg/dL all other times of the day Blood specimen (specimen) 11/29/2017 3:49 AM EDT 11/29/2017 3:49 AM EDT Sheridan Mosher MD POINT OF CARE TEST O PATRICIA Performing Organization Address [facility] Co de Phone Number [facility] [place] [address] * POCT Glucose (11/28/2017 11:30 PM EDT) Glucose, POC 82 65 - 199 mg/dL [facility] Comment: Supplemental ranges: <140 mg/dL before meals <180 mg/dL all other times of the day Blood specimen (specimen) 11/28/2017 11:30 PM EDT 11/28/2017 11:30 PM EDT Sheridan Mosher MD POINT OF CARE TEST Britany GOMEZ Performing Organization Address [facility] Co de Phone Number [facility] [place] [address] * POCT Glucose (11/28/2017 7:32 PM EDT) Glucose, POC 117 65 - 199 mg/dL [facility] Comment: Supplemental ranges: <140 mg/dL before meals <180 mg/dL all other times of the day Blood specimen (specimen) 11/28/2017 7:32 PM EDT 11/28/2017 7:32 PM EDT Sheridan Mosher MD POINT OF CARE TEST O RDERABLES Performing Organization Address City/[facility]/ZIP Co de Phone Number [facility] [place] [address] * POCT Glucose (11/28/2017 3:56 PM EDT) Glucose, POC 141 65 - 199 mg/dL [facility] Comment: Supplemental ranges: <140 mg/dL before meals <180 mg/dL all other times of the day Blood specimen (specimen) 11/28/2017 3:56 PM EDT 11/28/2017 3:56 PM EDT Sheridan Mosher MD POINT OF CARE TEST O RDERABLES Performing Organization Address [facility]/ZIP Co de Phone Number [facility] [place] [address] * XR Chest PA & Lateral (Generic) [...] Glucose, POC 120 65 - 199 mg/dL [facility] Comment: Supplemental ranges: <140 mg/dL before meals <180 mg/dL all other times of the day Blood specimen (specimen) 11/28/2017 11:53 AM EDT 11/28/2017 11:53 AM EDT Sheridan Mosher MD POINT OF CARE TEST O PATRICIA Performing Organization Address [facility] Co de Phone Number [facility] [place] [address] * POCT Glucose (11/28/2017 7:47 AM EDT) Glucose, POC 109 65 - 199 mg/dL [facility] Comment: Supplemental ranges: <140 mg/dL before meals <180 mg/dL all other times of the day Blood specimen (specimen) 11/28/2017 7:47 AM EDT 11/28/2017 7:47 AM EDT Sheridan Mosher MD POINT OF CARE TEST O PATRICIA [facility] [place] [address] * POCT Glucose (11/28/2017 4:21 AM EDT) Glucose, POC 104 65 - 199 mg/dL [facility] Comment: Supplemental ranges: <140 mg/dL before meals <180 mg/dL all other times of the day Blood specimen (specimen) 11/28/2017 4:21 AM EDT 11/28/2017 4:21 AM EDT Sheridan Mosher MD POINT OF CARE TEST O RDERABLES [facility] [place] [address] * (ABNORMAL) Differential, Automated (11/28/2017 2:42 AM EDT) Neutrophil % 67.1 % [facility] Neutrophil Absolute 6.24(H) 1.70 - 6.10 x10(3)/[facility] Lymph % 24.0 % [facility] Lymphocytes Abs 2.2 0.9 - 3.2 x10(3)/[facility] Monocyte % 7.5 % [facility] Monocyte Abs 0.7 0.3 - 0.9 x10(3)/[facility] Eos % 0.9 % [facility] Eosinophils Abs 0.1 0.0 - 0.4 x10(3)/[facility] Basophil % 0.2 % [facility] Baso Absolute 0.0 0.0 - 0.1 x10(3)/[facility] Immature Gran % 0.30 % [facility] Comment: Immature granulocytes(IG's)percentage and absolute count will include metamyelocytes, myelocytes, and promyelocytes. Blood smears from CBCs yielding IG's will be scanned manually for concordance. If this scan disagrees with the automated IG or if promyelocytes are noted, a manual differential will be performed. Immature Gran Absolute 0.03 0.00 - 0.04 x10(3)/ L [facility] Blood specimen (specimen) 11/28/2017 2:42 AM EDT 11/28/2017 3:08 AM EDT Narrative Resulting Agency Comment Spec In Lab Ange Oreilly MD HEMATOLOGY OR DERABLES [facility] [place] [address] * (ABNORMAL) Hemogram (11/28/2017 2:42 AM EDT) White Blood Cell 9.3 4.0 - 9.5 x10(3)/mc L [facility] Red Blood Cell 3.78(L) 4.00 - 5.21 x10(6)/mc L [facility] Hemoglobin 10.5(L) 11.7 - 15.5 gm/dL [facility] Hematocrit 32.7(L) 35.7 - 45.8 % [facility] Mean Cell Volume 86.5 82.6 - 94.4 fL [facility] Mean Cell Hemoglobin 27.8 27.1 - 32.0 pg [facility] Mean Cell Hemoglobin Concentration 32.1 31.7 - 35.0 gm/dL [facility] Platelet 212 145 - 357 x10(3)/mc L [facility] RDW Standard Deviation 40.9 37.0 - 46.0 fL [facility] RDW coefficient of variation 13.0 11.5 - 14.1 % [facility] Mean Platelet Volume 10.5 7.6 - 12.9 fL [facility] NRBC% auto 0.0 % [facility] NRBC Absolute 0.000 0.000 - 0.000 x10(3)/mc L [facility] Blood specimen (specimen) 11/28/2017 2:42 AM EDT 11/28/2017 3:08 AM EDT Narrative Resulting Agency Comment Spec In Lab Ange Oreilly MD HEMATOLOGY OR DERABLES [facility] [place] [address] * (ABNORMAL) Basic Metabolic Panel (non-fasting) (11/28/2017 2:42 AM EDT) Glucose 94 65 - 199 mg/dL [facility] Comment:Diabetes: >=200 mg/d L plus symptoms Blood Urea Nitrogen 5(L) 8 - 18 mg/dL [facility] Creatinine 0.73 0.70 - 1.20 mg/dL [facility] Sodium 142 135 - 145 mmol/L [facility] Potassium 3.7 3.5 - 5.0 mmol/L [facility] Comment: result rechecked-jt Please note: ??Patients with WBC >100,000 may have falsely elevated Potassium levels. ??For accurate Potassium quantification in these patients send serum separator tube (gold top) for subsequent determinations. ??Contact the Clinical Chemistry Laboratory if there are any questions. Chloride 104 98 - 107 mmol/L [facility] Carbon Dioxide 27 22 - 31 mmol/L [facility] Anion Gap 11 5 - 15 mmol/L [facility] Calcium 7.9(L) 8.5 - 10.5 mg/dL [facility] Est Glomerular Filtration Rate >60 >=60 [facility] Comment: The reported eGFR should be multiplied by 1.2 for patients. The MDRD is not an appropriate measure of renal function for patients with body mass extremes or in patients with acute kidney failure. http://Coub.BrandFiesta/DHnkdep http://Coub.BrandFiesta/DHMCnkf Blood specimen (specimen) 11/28/2017 2:42 AM EDT 11/28/2017 3:08 AM EDT Narrative Resulting Agency Comment Spec In Lab Ange Oreilly MD CHEMISTRY ORD ERABLES [facility] [place] [address] * POCT Glucose (11/27/2017 11:46 PM EDT) Glucose, POC 95 65 - 199 mg/dL [facility] Comment: Supplemental ranges: <140 mg/dL before meals <180 mg/dL all other times of the day Blood specimen (specimen) 11/27/2017 11:46 PM EDT 11/27/2017 11:46 PM EDT Sheridan Mosher MD POINT OF CARE TEST O PATRICIA Performing Organization Address City/[facility] Co de Phone Number [facility] [place] [address] * POCT Glucose (11/27/2017 7:46 PM EDT) Glucose, POC 110 65 - 199 mg/dL [facility] Comment: Supplemental ranges: <140 mg/dL before meals <180 mg/dL all other times of the day Blood specimen (specimen) 11/27/2017 7:46 PM EDT 11/27/2017 7:46 PM EDT Sheridan Mosher MD POINT OF CARE TEST O PATRICIA Performing Organization Address [facility] Co de Phone Number [facility] [place] [address] * POCT Glucose (11/27/2017 3:51 PM EDT) Glucose, POC 105 65 - 199 mg/dL [facility] Comment: Supplemental ranges: <140 mg/dL before meals <180 mg/dL all other times of the day Blood specimen (specimen) 11/27/2017 3:51 PM EDT 11/27/2017 3:51 PM EDT Sheridan Mosher MD POINT OF CARE TEST O CAROLINAERACALVIN Performing Organization Address City/[facility] Co de Phone Number [facility] [place] [address] * POCT Glucose (11/27/2017 11:12 AM EDT) Glucose, POC 95 65 - 199 mg/dL [facility] Comment: Supplemental ranges: <140 mg/dL before meals <180 mg/dL all other times of the day Blood specimen (specimen) 11/27/2017 11:12 AM EDT 11/27/2017 11:12 AM EDT Sheridan Mosher MD POINT OF CARE TEST O PATRICIA Performing Organization Address City/[facility] Co de Phone Number [facility] [place] [address] * POCT Glucose (11/27/2017 8:08 AM EDT) Glucose, POC 105 65 - 199 mg/dL [facility] Comment: Supplemental ranges: <140 mg/dL before meals <180 mg/dL all other times of the day Blood specimen (specimen) 11/27/2017 8:08 AM EDT 11/27/2017 8:08 AM EDT Sheridan Mosher MD POINT OF CARE TEST O PATRICIA Performing Organization Address [facility] Co de Phone Number [facility] [place] [address] * POCT Glucose (11/27/2017 4:47 AM EDT) Glucose, POC 113 65 - 199 mg/dL [facility] Comment: Supplemental ranges: <140 mg/dL before meals <180 mg/dL all other times of the day Blood specimen (specimen) 11/27/2017 4:47 AM EDT 11/27/2017 4:47 AM EDT Sheridan Mosher MD POINT OF CARE TEST O PATRICIA Performing Organization Address City/[facility] Co de Phone Number [facility] [place] [place] [address] * (ABNORMAL) Differential, Automated (11/27/2017 4:40 AM EDT) Neutrophil % 84.9 % [facility] Neutrophil Absolute 12.83(H) 1.70 - 6.10 x10(3)/[facility] Lymph % 10.0 % [facility] Lymphocytes Abs 1.5 0.9 - 3.2 x10(3)/[facility] Monocyte % 4.7 % [facility] Monocyte Abs 0.7 0.3 - 0.9 x10(3)/[facility] Eos % 0.0 % [facility] Eosinophils Abs 0.0 0.0 - 0.4 x10(3)/[facility] Basophil % 0.1 % [facility] Baso Absolute 0.0 0.0 - 0.1 x10(3)/[facility] Immature Gran % 0.30 % [facility] Comment: Immature granulocytes(IG's)percentage and absolute count will include metamyelocytes, myelocytes, and promyelocytes. Blood smears from CBCs yielding IG's will be scanned manually for concordance. If this scan disagrees with the automated IG or if promyelocytes are noted, a manual differential will be performed. Immature Gran Absolute 0.04 0.00 - 0.04 x10(3)/[facility] Blood specimen (specimen) 11/27/2017 4:40 AM EDT 11/27/2017 4:46 AM EDT Narrative Resulting Agency Comment Spec In Lab Ange Oreilly MD HEMATOLOGY OR DERABLES [facility] [place] [address] * (ABNORMAL) Hemogram (11/27/2017 4:40 AM EDT) White Blood Cell 15.1(H) 4.0 - 9.5 x10(3)/[facility] Red Blood Cell 4.46 4.00 - 5.21 x10(6)/[facility] Hemoglobin 12.3 11.7 - 15.5 gm/dL [facility] Hematocrit 37.3 35.7 - 45.8 % [facility] Mean Cell Volume 83.6 82.6 - 94.4 fL [facility] Mean Cell Hemoglobin 27.6 27.1 - 32.0 pg [facility] Mean Cell Hemoglobin Concentration 33.0 31.7 - 35.0 gm/dL [facility] Platelet 281 145 - 357 x10(3)/mc L [facility] RDW Standard Deviation 38.5 37.0 - 46.0 fL [facility] RDW coefficient of variation 12.8 11.5 - 14.1 % [facility] Mean Platelet Volume 10.4 7.6 - 12.9 fL [facility] NRBC% auto 0.0 % [facility] NRBC Absolute 0.000 0.000 - 0.000 x10(3)/mc L [facility] Blood specimen (specimen) 11/27/2017 4:40 AM EDT 11/27/2017 4:46 AM EDT Narrative Resulting Agency Comment Spec In Lab Ange Oreilly MD HEMATOLOGY OR DERABLES Performing Organization Address City/[facility]/ZIP Co de Phone Number [facility] [place] [address] * Phosphorus (11/27/2017 4:40 AM EDT) Phosphorus 4.4 2.5 - 4.5 mg/dL [facility] Blood specimen (specimen) 11/27/2017 4:40 AM EDT 11/27/2017 4:46 AM EDT Narrative Resulting Agency Comment Spec In Lab Ange Oreilly MD CHEMISTRY ORD ERABLES Performing Organization Address City/[facility]/ZIP Co de Phone Number [facility] [place] [address] * Magnesium (11/27/2017 4:40 AM EDT) Magnesium 0.81 0.69 - 1.07 mmol/L [facility] Blood specimen (specimen) 11/27/2017 4:40 AM EDT 11/27/2017 4:46 AM EDT Narrative Resulting Agency Comment Spec In Lab Ange Oreilly MD CHEMISTRY ORD DeskMetricsBLES Performing Organization Address [facility] Co de Phone Number [facility] [place] [address] * (ABNORMAL) Glucose, fasting (11/27/2017 4:40 AM EDT) [facility] Glucose Fasting 114(H) 65 - 99 mg/dL [facility] Comment: ?Fasting* Glucose Interpretive Criteria Normal [...] of Diabetes Mellitus, Position Statement from the [place] [employer]. ??Diabetes Care, Volume 33, Supplement 1, Sep 2009 Blood specimen (specimen) 11/27/2017 4:40 AM EDT 11/27/2017 4:46 AM EDT Narrative Resulting Agency Comment Spec In Lab Ange Oreilly MD DermLink ORD [employer] Performing Organization Address [facility] Co de Phone Number [facility] [place] [address] * Creatinine (11/27/2017 4:40 AM EDT) Pathologist [facility] Creatinine 0.79 0.70 - 1.20 mg/dL [facility] Est Glomerular Filtration Rate >60 >=60 [facility] Comment: The reported eGFR should be multiplied by 1.2 for patients. The MDRD is not an appropriate measure of renal function for patients with body mass extremes or in patients with acute kidney failure. http://[employer]/DHnkdep http://[employer]/DHMCnkf Blood specimen (specimen) 11/27/2017 4:40 AM EDT 11/27/2017 4:46 AM EDT Narrative Resulting Agency Comment Spec In Lab Ange Oreilly MD CHEMISTRY ORD ERABLES Performing Organization Address [facility] Co de Phone Number [facility] [place] [address] * (ABNORMAL) BUN (11/27/2017 4:40 AM EDT) Blood Urea Nitrogen 7(L) 8 - 18 mg/dL [facility] Blood specimen (specimen) 11/27/2017 4:40 AM EDT 11/27/2017 4:46 AM EDT Narrative Resulting Agency Comment Spec In Lab Ange Oreilly MD CHEMISTRY ORD ERABLES Performing Organization Address [facility] Co de Phone Number [facility] [place] [address] * Electrolytes panel (11/27/2017 4:40 AM EDT) Sodium 139 135 - 145 mmol/L [facility] Potassium Not Perf 3.5 - 5.0 mmol/L [facility] Comment: Unable to quantitate due to [...] questions. Chloride 100 98 - 107 mmol/L [facility] Carbon Dioxide 27 22 - 31 mmol/L [facility] Anion Gap 12 5 - 15 mmol/L [facility] Blood specimen (specimen) 11/27/2017 4:40 AM EDT 11/27/2017 4:46 AM EDT Narrative Resulting Agency Comment Spec In Lab Ange Oreilly MD CHEMISTRY ORD ERABLES [facility] [place] [place] [address] * POCT Glucose (11/27/2017 12:18 AM EDT) Glucose, POC 143 65 - 199 mg/dL [facility] Comment: Supplemental ranges: <140 mg/dL before meals <180 mg/dL all other times of the day Blood specimen (specimen) 11/27/2017 12:18 AM EDT 11/27/2017 12:18 AM EDT Sheridan Mosher MD POINT OF CARE TEST O PATRICIA Performing Organization Address [facility] Co de Phone Number [facility] [place] [address] * POCT Glucose (11/26/2017 8:40 PM EDT) Glucose, POC 158 65 - 199 mg/dL [facility] Comment: Supplemental ranges: <140 mg/dL before meals <180 mg/dL all other times of the day Blood specimen (specimen) 11/26/2017 8:40 PM EDT 11/26/2017 8:40 PM EDT Sheridan Mosher MD POINT OF CARE TEST O PATRICIA Performing Organization Address City/[facility]/ZIP Co de Phone Number [facility] [place] [address] * Specimen to Pathology (11/26/2017 6:24 PM EDT) AP Specimen 11/26/2017 6:24 PM EDT 11/26/2017 6:24 PM EDT Narrative [facility] - 11/26/2017 6:24 PM EDT Specimen requisition ordered. ??Separate Pathology report to follow Sheridan Mosher MD PATHOLOGY/CYTOLOGY O PATRICIA [facility] [place] [address] * Surgical Pathology Report (11/26/2017 6:23 PM EDT) Final Diagnosis [id number] ? Location: 2WST; 0210; A The signing pathologist has (i) examined the relevant preparation(s) for the specimen(s) and (ii) rendered or confirmed the diagnosis(es). . ?Surgical Pathology DIAGNOSIS Fundus, wedge resection: Benign segment of stomach with unremarkable gastric fundic gland mucosa. Electronically signed by: ??Stefani Roberts MD Verified: ??12/01/2017 ?Pathologist Performed at: ??-[facility] Dept. of Pathology, [place], [place] CLINICAL INFORMATION Specimen Submitted: A - Fundus Clinical History: Failed fundoplication Clinical Diagnosis: Same SPECIMEN PROCESSING A - ??Labeled/Fixativ e: Fundus, fresh. Quantity/Size: Single, 5.5 x 4.5 x 3.5 cm. Tissue Description: Intact, wedge resection of stomach. The serosa is pink, ragged with fibrous adhesions. The mucosa is pink with the usual rugal folds. Sections/Processi ng: ??(R1) ??sns 12/01/2017 3:54 PM EDT [facility] STOMACH STRUCTURE / Unknown 11/26/2017 6:23 PM EDT 11/26/2017 6:23 PM EDT Sheridan Mosher MD PATHOLOGY/CYTOLOGY O PATRICIA [facility] [place] [address] * SCAN DOC: CAMPUS RECEPTIONIST (11/26/2017 12:00 AM EDT) Anatomical Region Laterality Modality Other Narrative 11/26/2017 12:00 AM EDT Ordered by an unspecified provider. Scanning Provider MEDIA MGR SCAN EXT O RDR/RSLT documented in this encounter Visit Diagnoses Not on filedocumented in this encounter Admitting Diagnoses Diagnosis S/P partial gastrectomy Other postprocedural status documented in this encounter Administered Medications Inactive Administered Medications - up to 3 most recent administrations Medication Order MAR Action Action Date Dose Rate Site acetaminophen (TYLENOL) 650 mg/20.3 mL oral liquid 650 mg 650 mg, Oral, EVERY 4 HOURS, First dose on [place] 11/27/17 at 0930, Until Discontinued, Maximum dose of acetaminophen is 4,000 mg from all sources in 24 hours., Routine Given 11/29/2017 3:13 PM EDT 650 mg Given 11/29/2017 11:03 AM EDT 650 mg Given 11/29/2017 8:29 AM EDT 650 mg bisacodyl (DULCOLAX) suppository 10 mg 10 mg, Rectal, DAILY PRN, Starting on Fri11/26/17 at 2237, Until 11/29/17 at 2047, Constipation, [...] concomitantly for constipation., Recovery (Recovery-Hospital Unit), Routine BUpivacaine (PF) (MARCAINE) 0.25 % (2.5 mg/mL) injection ONCE PRN, Starting on Fri11/26/17 at 1817, Until 11/29/17 at 2047, Intra-Operative (Intra-Procedure), Routine Given 11/26/2017 7:56 PM EDT 20 mLs 19- Surgical Site Given 11/26/2017 6:17 PM EDT 10 mLs 19 - Surgical Site dextrose 50% IV syringe 25-50 mL 25-50 [...] the duration of the active insulin., Routine insulin lispro (humaLOG) VIAL injection 1-4 Units [...] Given 11/27/2017 12:24 AM EDT 1 Units lidocaine (XYLOCAINE) 10 mg/mL (1 %) injection 3 mg 3 mg (0.3 mL), Subcutaneous, ONCE PRN, 1 dose, Starting on Fri11/26/17 at 2237, Until 11/29/17 at 2046, for discomfort with PIV insertion, Recovery (Recovery-Hospital Unit), Routine naloxone (NARCAN) injection 0.2 mg 0.2 mg, Intravenous, EVERY 1 MIN PRN, Starting on Fri11/26/17 at 2237, Until 11/29/17 at 2046, Opioid Reversal, May repeat every 60 seconds to increase respiratory rate. DO NOT exceed 2 mg total dose. Per FIBERGLASS BOAT BUILDER order., Recovery (Recovery-Hospital Unit), Routine ondansetron (ZOFRAN) [...] Ondansetron., Routine sodium chloride 0.9 % flush 5 mL [...] Ange Griffin RN)1450 (Given - Provider: Ange Griffin RN)1800 (Given - Provider: Ange Griffin RN)2349 (Given - Provider: Ankush Lowry RN) 0359 (Given - Provider: Ankush Lowry RN)0724 (Given - Provider: Ankush Lowry RN)1130 (Given - Provider: Isabel Hammond RN)1517 (Given - Provider: Isabel Hammond RN)1915 (Given - Provider: Isabel Hammond RN)2330 (Given - Provider: Ankush Lowry RN) 0336 (Given - Provider: Ankush Lowry RN)0829 (Given - Provider: Kaitlyn Buckner, CHELO)1103 (Given - Provider: Kaitlyn Buckner RN)1513 (Given [...] Griffin RN - Reason: Order parameters not met)1953 (Not Given - Provider: Ankush Lowry RN [...] Order parameters not met)1618 (Given - Provider: Isabel Hammond RN)2026 (Not Given - Provider: Ankush [...] Griffin RN)2049 (Given - Provider: Ankush M Lynd, RN) 0817 (Given - Provider: Isabel Hammond, RN)2026 (Given - Provider: Ankush Lowry, RN) 0830 (Given - Provider: Kaitlyn Buckner RN) Continuous Medication Order 11/27/2017 11/28/2017 11/29/2017 lactated Ringers infusion (CANCELED) 90 mL/hr, Intravenous, CONTINUOUS, Starting on 11/26/17 at 2100, Until Fri11/28/17 at 0537, Recovery (Recovery-Hospital Unit) 0834 (New Bag - Provider: Ange Griffin, CHELO)1927 (New Bag - Provider: Ankush Lowry, RN) 0620 (Stopped - Provider: Ankush Lowry, RN) PRN Medication Order 11/27/2017 11/28/2017 11/29/2017 bisacodyl (DULCOLAX) suppository 10 mg 10 mg, Rectal, DAILY PRN, Starting on 11/26/17 at 2237, Until 11/29/17 at 2046, Constipation, [...] 0800, Until Fri11/28/17 at 1124, Pain, Routine 0817 (Given - Provider: Isabel Hammond RN) lidocaine (XYLOCAINE) 10 mg/mL (1 %) injection 3 mg 3 mg (0.3 mL), Subcutaneous, ONCE PRN, 1 dose, Starting on 11/26/17 at 2237, Until 11/29/17 at 7, for discomfort with PIV insertion, Recovery (Recovery-Hospital Unit), Routine naloxone (NARCAN) injection 0.2 mg 0.2 mg, Intravenous, EVERY 1 MIN PRN, Starting on 11/26/17 at 2237, Until 11/29/17 at 2047, Opioid Reversal, May repeat every 60 seconds to increase respiratory rate. DO NOT exceed 2 mg total dose. Per FIBERGLASS BOAT BUILDER order., Recovery (Recovery-Hospital Unit), Routine ondansetron (ZOFRAN) [...] Ankush Lowry, CHELO)2330 (Given - Provider: Ankush Lowry RN) 0336 (Given - Provider: Ankush Lowry RN)1103 (Given - Provider: Kaitlyn Buckner, CHELO)1452 (Given - Provider: Kaitlyn Buckner RN) polyethylene glycol (MIRALAX) packet 17 g 17 [...] Routine, EVERY 4 HOURS, First occurrence on [place] 11/27/17 at 0000, Until Specified, Consider choosing EVERY [...] Routine documented in this encounter Care Teams Manager Package Relationship Specialty Start Date End Date Laura Ross APRN [address] [place] [id number] PCP - General Family Medicine 10/01/17 08/21/22 documented as of this encounter
--- OUTSIDE RECORDS SUMMARY | 2024-06-12 13:43 | XMS_ITS | Encounter Summary ---
Author Organization [facility] [place] [address] Care Team Providers Care Biological Scientist Name Role Phone Laura Ross BLOCK PAVER Primary Care Provider [phone] Encounter Details Date Type Department Care Team (Late st Contact Info) Description 06/18/2019 12:10 AM EDT Ancillary Procedure Radiology Library [place] [address] Laura Ross, BLOCK PAVER [address] [place] [address] Social History Tobacco Use Types Packs/Day Years [...] PM EDT Hospital Encounter CT Scan at [facility] [place] [phone] Alena Pizarro, BLOCK PAVER [facility] [address] 07/09/2024 8:30 AM EDT Appointment XRay at [address] [address] [place] [address] 07/17/2024 8:00 AM EDT Procedure [place] [address] 08/26/2024 8:00 AM EST Office [place] [address] 08/27/2024 9:00 AM EST Clinical [place] [address] documented as of this encounter Procedures Procedure Name Priority Date/Time Associated Diagnosis Comments FILM LIBRARY STORAGE ONLY DX WRIST Routine 06/18/2019 12:10 AM EDT documented in this encounter Results * Film Library- Storage Only DX Wrist (06/18/2019 12:10 AM EDT) Narrative [facility] - 08/25/2019 4:19 PM EST This exam is auto-finalizing. It's purpose is for storage only. Laura Ross APRN IMG FILM LIBRARY ORD ERABLES [place], [place] documented in this encounter Visit Diagnoses Not on filedocumented in this encounter Care Teams Biological Scientist Relationship Specialty Start Date End Date Laura Ross APRN [address] [place] [id number] PCP - General Family Medicine 10/01/17 08/21/22 documented as of this encounter
--- OUTSIDE RECORDS SUMMARY | 2024-06-12 13:43 | XMS_ITS | Encounter Summary ---
Author Organization [facility] [place] [address] Care Team Providers Care Rug Hooker Hand Name Role Phone Laura Ross SURGICAL SUPPLIES STERILIZER Primary Care Provider [phone] Encounter Details Date Type Department Care Team (Late st Contact Info) Description 06/18/2019 12:05 AM EDT Ancillary Procedure Radiology Library at [facility] [place] [address] Laura Ross, SURGICAL SUPPLIES STERILIZER [address] [place] [address] Social History Tobacco Use Types Packs/Day Years [...] PM EDT Hospital Encounter CT Scan at [facility] [place] [phone] Alena Pizarro, SURGICAL SUPPLIES STERILIZER [facility] [place] [address] 07/09/2024 8:30 AM EDT Appointment XRay at [address] [phone] [place] [address] 07/17/2024 8:00 AM EDT Procedure visit [place] [address] 08/26/2024 8:00 AM EST Office [place] [address] 08/27/2024 9:00 AM EST Clinical [place] [address] documented as of this encounter Procedures Procedure Name Priority Date/Time Associated Diagnosis Comments FILM LIBRARY STORAGE ONLY MR WRIST Routine 06/18/2019 12:05 AM EDT documented in this encounter Results * Film Library- Storage Only MR Wrist (06/18/2019 12:05 AM EDT) Narrative [facility] - 08/25/2019 4:16 PM EST This exam is auto-finalizing. It's purpose is for storage only. Laura Ross APRN IMG FILM LIBRARY ORD ERABLES [place], [place] documented in this encounter Visit Diagnoses Not on filedocumented in this encounter Care Teams Rug Hooker Hand Relationship Specialty Start Date End Date Laura Ross APRN [address] [place] [phone] PCP - General Family Medicine 10/01/17 08/21/22 documented as of this encounter
--- OUTSIDE RECORDS SUMMARY | 2024-06-12 13:43 | XMS_ITS | Encounter Summary ---
Author Organization [facility] [place] [address] Care Team Providers Care Refuse Laborer Name Role Phone Laura Ross APRN Primary Care Provider [phone] Encounter Details Date Type Department Care Team (Late st Contact Info) Description 02/20/2018 Notes Only [place] [address] Gabriel Young MD [facility] HEMATOLOGY/[place] [address] Social History Tobacco Use Types Packs/Day Years [...] as of this encounter Progress Notes * Gabriel Young MD - 02/20/2018 1:28 PM EDT I have reviewed the patient's record and given personal and/or family history of cancer she should be seen by genetic counselor. This will be scheduled for next week. documented in this encounter Plan of Treatment Upcoming Encounters Date Type Department Care Team (Late st Contact Info) Description 06/15/2024 3:00 PM EDT [place] [address] Alena Pizarro [place] [address] 07/09/2024 8:30 AM EDT Appointment XRay at [address] [address] Alena Pizarro [place] [address] 07/17/2024 8:00 AM EDT Procedure [place] [address] 08/26/2024 8:00 AM EST Office [place] [address] 08/27/2024 9:00 AM EST Clinical [place] [address] documented as of this encounter Visit Diagnoses Not on filedocumented in this encounter Care Teams Refuse Laborer Relationship Specialty Start Date End Date Laura Ross APRN [address] [place] [id number] PCP - General Family Medicine 10/01/17 08/21/22 documented as of this encounter
--- OUTSIDE RECORDS SUMMARY | 2024-06-12 13:43 | XMS_ITS | Encounter Summary ---
Author Organization [facility] [place] [address] Care Team Providers Care Woodwork Salvage Inspector Name Role Phone Laura Ross LOUIE Primary Care Provider [phone] Encounter Details Date Type Department Care Team (Late st Contact Info) Description 12/18/2020 Orders [place] [phone] Sheridan Cassidy MD [facility] [place] [address] S/P partial gastrectomy Social History Tobacco Use [...] PM EDT [place] [address] Alena Pizarro APRN [facility] [place] [address] 07/09/2024 8:30 AM EDT Appointment XRay at [address] [address] [place] [address] 07/17/2024 8:00 AM EDT Procedure [place] [address] 08/26/2024 8:00 AM EST Office [place] [address] 08/27/2024 9:00 AM EST Clinical [place] [address] documented as of this encounter Visit Diagnoses Diagnosis S/P partial gastrectomy Other postprocedural status documented in this encounter Care Teams Woodwork Salvage Inspector Relationship Specialty Start Date End Date Laura Ross APRN [address] [place] [phone] PCP - General Family Medicine 10/01/17 08/21/22 documented as of this encounter
--- OUTSIDE RECORDS SUMMARY | 2024-06-12 13:43 | XMS_ITS | Encounter Summary ---
Author Organization [facility] [place] [address] Care Team Providers Care Ultrasonic Welding Machine Operator Name Role Phone Laura Ross LOUIE Primary Care Provider [phone] Encounter Details Date Type Department Care Team (Late st Contact Info) Description 10/04/2020 Ancillary Procedure Radiology Library at [facility] [place] [address] Olivier Sanz MD [facility] [place] [address] Social History Tobacco Use Types Packs/Day Years [...] PM EDT Hospital Encounter CT Scan at [facility] [place] [id number] Alena Pizarro APRN [facility] [place] [address] 07/09/2024 8:30 AM EDT Appointment XRay at [address] [address] [place] [address] 07/17/2024 8:00 AM EDT Procedure [place] [address] 08/26/2024 8:00 AM EST Office [place] [address] 08/27/2024 9:00 AM EST Clinical Support [place] [address] documented as of this encounter Procedures Procedure Name Priority Date/Time Associated Diagnosis Comments FILM LIBRARY STORAGE ONLY DX WRIST Routine 10/04/2020 12:00 AM EST documented in this encounter Results * Film Library- Storage Only DX Wrist (10/04/2020 12:00 AM EST) Narrative [facility] - 11/03/2020 9:10 AM EST This exam is auto-finalizing. It's purpose is for storage only. Olivier Sanz MD IMG FILM LIBRARY ORD ERABLES [place], [place] documented in this encounter Visit Diagnoses Not on filedocumented in this encounter Care Teams Ultrasonic Welding Machine Operator Relationship Specialty Start Date End Date Laura Ross APRN [address] [place] [id number] PCP - General Family Medicine 10/01/17 08/21/22 documented as of this encounter
--- OUTSIDE RECORDS SUMMARY | 2024-06-12 13:44 | XMS_ITS | Encounter Summary ---
[place] [address] Care Team Providers Care Senior Director Marketing Name Role Phone Laura Ross APRN Primary Care Provider [phone] Reason for Referral * Consultation (Routine) - Canceled Specialty Diagnoses / Procedures Referred By Martha broussard Referred To Contact Hematology and Oncology Diagnoses Breast mass Kaci Castellon APRN [facility] [place] [address] [facility] Hem Onc Office [address] [place] [id number] Referral ID Status Reason Start Date Expiration Date V isits Requested Visits Authorized [id number] Canceled Consult, Test & Treat 10/22/2017 10/22/2018 1 1 Reason for Visit * Reason Comments Breast Mass * Consultation (Routine) - Closed Specialty Diagnoses / Procedures Referred By Contjoe broussard Referred To Contact Hematology and Oncology Diagnoses eval and tx lateral lump in R breast. Pt looking for second opinion Laura Ross APRN [address] [place] [address] [facility] Hem [place]c [address] [place] [address] Referral ID Status Reason Start Date Expiration Date V isits Requested Visits Authorized [id number] Closed Evaluate and Treat [facility] 10/09/2017 10/09/2018 1 1 Encounter Details Date Type Department Care Team (Late st Contact Info) Description 10/22/2017 9:45 AM EST Office Visit General Surgery at [facility] [place] [address] Kaci Castellon APRN [facility] [place] [address] Breast mass Social History Tobacco Use Types Packs/Day Years Used Date Smoking Tobacco: Former Cigarettes Q uit: 12/03/2003 Smokeless Tobacco: Never Alcohol Use Standard Drinks/Week Comments No 0 (1 standard drink = 0.6 oz pur e alcohol) once in a great while Sex and Gender Information Value Date Recorded Sex Assigned at Not on file Gender Identity Not on file Sexual Orientation Not on file documented as of this encounter Progress Notes * Kaci Castellon APRN - 10/22/2017 9:45 AM EST Ms. Bolanos is a 42 y.o. year-old patient who I am seeing at the request of Laura Ross APRN to evaluate a mass in the upper central aspect of her right breast at 1200. In 2012 while living in [place] she thought she felt a mass in this area. She had breast imaging (not available for my review) which she believes was a cat 3 for an area on the right which needed watching. She moved to [place] in June of 2017 and at that time she received a letter telling her that she needed more imaging including and MRI. She had no discussions with the radiology department in [place]. When she relocated to [place] she eventually was seen by her PCP who sent her for imaging ( mammo and right US at Weeks/cat 2). She was then sent to see Dr Deysi Madrid. Dr Madrid did not feel a mass but agreed to refer her for another opinion. Ms Bolanos still feels a mass on the right at 1200 and tenderness in the UOQ of her right breast. She is wondering if she needs an MRI due to the fact the radiology dept in [place] told her she needed one. She denies any skin changes,breast trauma, prior breast surgery or nipple discharge. She does have a history of cystic breast tissue and has not had cysts aspirated or breast biopsies in the past. She does occasional self-breast exams. Weight stable. She has no new or concerning complaints of fatigue, cardiovascular or respiratory symptoms. All other ROS are negative. She does have severe GERD and Barrettes esophagus and is having a partial gastrectomy with Dr Cassidy next month. Reproductive History: P2 , had her first child at the age of 15 and did not nurse her children. Menarche began at 11.Her LMP was at age 20. HRT/OC: none Family History:Positive for breast cancer: mat aunt Positive for ovarian cancer:mom at 60 No genetic testing Social History: She is currently unemployed. She does not smoke. Past Medical History:Barettes esophagus, GERD Past Surgical History: Magdaleno, MORGAN/BSO/endometriosis Physical Exam: She looks well and is in no apparent distress. Her skin is anicteric with good turgor. Sclera are anicteric. Her head and neck are without masses or adenopathy. Her arms have good ROM without any evidence of lymphedema. Breasts are large and ptotic.Her breasts are generally symmetric. Her nipples are everted. There isno axillary adenopathy on the right or the left. There are no skin changes or dimpling noted in either breast. The right breast is notable for generally homogenous breast tissue,without discrete masses. Slight area of focal nodularity at 1200,no discrete mass. Her left breast exam is similar in character to her right breast,without discrete masses. Assessment: Clinical breast exam notable for fibrocystic breast tissue without discrete masses evident on todays exam.Recent OS imaging normal, with review from imaging from [place]. Potentially high risk patient due to family history. No indication for MRI based on normal exam and imaging. Plan: I have discussed my assessment and recommendations with Ms. Bolanos to include occasional self-breast exams and annual clinical breast exams. We discussed how the symptoms she is experiencing are most likely related to benign and will improve over time.She does have large breasts and likely her breast pain is related to that.Suggest good support. I believe what she is feeling is breast and fatty tissue and in light of her normal imaging and CBEdo not believe that she needs any further imaging or work up. I will refer her to genetics in light of her family history. In light of her history and findings, I recommend observation at this time and PRN surgical follow up. She will also contact me if she develops any new masses in her breast. I recommend a mammogram on 09/2018 or sooner if needed. Ms. Bolanos agrees to this plan. Laura Ross APRN documented in this encounter Plan of Treatment Upcoming Encounters Date Type Department Care Team ([facility] st Contact Info) Description 06/15/2024 3:00 PM EDT Hospital Encounter [place] [address] [place] [address] 07/09/2024 8:30 AM EDT Appointment XRay at [address] [address] [place] [address] 07/17/2024 8:00 AM EDT Procedure visit G[place] [address] 08/26/2024 8:00 AM EST Office [place] [address] 08/27/2024 9:00 AM EST Clinical [place] [address] Scheduled Referrals Name Type Priority Associated Diagnoses Order Schedule Referral to Hematology and Oncology Outpatient Referral Routine Breast mass Ordered: 10/22/2017 documented as of this encounter Visit Diagnoses Diagnosis Breast mass Lump or mass in breast documented in this encounter Care Teams Senior Director Marketing Relationship Specialty Start Date End Date Laura Ross APRN [address] [place] [id number] PCP - General Family Medicine 10/01/17 08/21/22 documented as of this encounter
--- OUTSIDE RECORDS SUMMARY | 2024-06-12 13:44 | XMS_ITS | Encounter Summary ---
[place] [address] Care Team Providers Care Collar Worker Name Role Phone Arely Arzola APRN Primary Care Provider [phone] Reason for Visit * Reason Comments Follow-up Encounter Details Date Type Department Care Team (Latest Contact Info) Description 07/26/2014 10:40 AM EST Follow-[place] [id number] CLINIC, Sheridan Russ MD [facility] [address] Gastroesophageal reflux Discharge Disposition: Home Social History Tobacco Use Types Packs/Day Years Used Date Smoking Tobacco: Former Cigarettes Q uit: 12/03/2003 Alcohol Use Standard Drinks/Week Comments No 0 (1 standard drink = 0.6 oz pur e alcohol) once in a great while Sex and Gender Information Value Date Recorded Sex Assigned at Not on file Gender Identity Not on file Sexual Orientation Not on file documented as of this encounter Last Filed Vital Signs Vital Sign Reading Time Taken Comments Blood Pressure - - Pulse - - Temperature - - Respiratory Rate - - Oxygen Saturation - - Inhaled Oxygen Concentration - - Weight 77.2 kg (170 lb 3.1 oz) 07/26/2014 10:28 AM EST Height - - Body Mass Index 32.16 11/25/2012 3:37 PM EDT documented in this encounter Progress Notes * Sheridan Cassidy MD - 07/26/2014 5:17 PM EST Ms. Bolanos was seen in followup after a recent EGD which shows an intact fundoplication with no evidence of esophagitis or other abnormalities. Manometry was performed as well as Bill pH off medication. Her manometry shows good motility with a slightly low LES pressure. A 48 hour Bill testing off medication reveals no evidence of pathologic reflux. In talking to her her pain complaints are mostly epigastric pain, she feels that if she overeats she gets discomfort in this area and it feels similar to the type of pain she was having before. She feels sometimes that food sits in her stomach, particularly things like bread and other gluten containing foods. We did not see any evidence of celiac disease of her duodenum however she did not undergo biopsy at that time during her endoscopy. I reassured her that her fundoplication appears to be functioning and in the appropriate position. We did talk a little bit about her issue with constipation, she often does not move her bowels for days at a time and then usually has a watery bowel movement which is unusual and I suspect she may be getting some overflow loose stool around a constipated stool. I talked to her about different measures including Metamucil, MiraLax, Colace and other options to try to regulate her bowels which I think may be impacting some of her gastric emptying. We also talked about a brief course of erythromycin as an improvement to see if this helps. For the chest pain I have suggested we try a course of Levsin to see if this helps. I am hoping that once we get her bowels under a more regular regimen that things will improve overall. She seems reassured by this and I see no need for any intervention. She should undergo repeat endoscopy with biopsy in 2 years to followup for any potential Queen's. documented in this encounter Plan of Treatment Upcoming Encounters Date Type Department Care Team (Late st Contact Info) Description 06/15/2024 3:00 PM EDT [place] [address] [place] [address] 07/09/2024 8:30 AM EDT Appointment XRay at [address] [address] [place] [address] 07/17/2024 8:00 AM EDT Procedure [place] [address] 08/26/2024 8:00 AM EST Office [place] [address] 08/27/2024 9:00 AM EST Clinical [place] [address] documented as of this encounter Visit Diagnoses Diagnosis Gastroesophageal reflux Esophageal reflux documented in this encounter Care Teams Collar Worker Relationship Specialty Start Date End Date Arely Arzola APRN [address] [place] [address] PCP - General 11/23/12 09/30/17 documented as of this encounter
--- OUTSIDE RECORDS SUMMARY | 2024-06-12 13:44 | XMS_ITS | Encounter Summary ---
Author Organization [facility] [place] [address] Care Team Providers Care Deputy Insurance Commissioner Name Role Phone Arely Arzola LOUIE Primary Care Provider [phone] Reason for Referral * Diagnostic Test (Routine) - Closed Specialty Diagnoses / Procedures Referred By Martha broussard Referred To Contact Radiology Diagnoses Gastroesophageal reflux disease, esophagitis presence not specified Procedures XR Fluoro Barium Swallow Ange Cordon MD [facility] [place] [address] [facility] X[facility] [address] [place] [address] [place] [address] Referral ID Status Reason Start Date Expiration Date V isits Requested Visits Authorized [id number] Closed Specialty Service Requested 09/03/2017 09/03/2018 1 1 Reason for Visit * Diagnostic Test (Routine) - Closed Specialty Diagnoses / Procedures Referred By Martha broussard Referred To Contact Radiology Diagnoses Gastroesophageal reflux disease, esophagitis presence not specified Procedures XR Fluoro Barium Swallow nAge Cordon MD [facility] [place] [address] [facility] Rad Xray [address] [place] [address] [place] [address] Referral ID Status Reason Start Date Expiration Date V isits Requested Visits Authorized [id number] Closed Specialty Service Requested 09/03/2017 09/03/2018 1 1 Encounter Details Date Type Department Care Team (Latest Contact Info) Description 09/19/2017 9:37 AM EST - 09/19/2017 11:59 PM EST Hospital Encounter XRay at [address] [place] [address] Ange Cordon MD [facility] [place] [address] Gastroesophageal reflux disease, esophagitis presence not specified Discharge Disposition: Home Social History Tobacco Use [...] muscle as needed (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 01/11/2011 metFORMIN (GLUCOPHAGE-XR) 500 mg Tablet Sustained Release 24 hr Take 500 mg by mouth nightly. 11/28/2017 multivitamin (THERAGRAN) Tablet Take 1 tablet by mouth daily. 01/02/2021 cholecalciferol, Vitamin D3, 50,000 unit Capsule Take 50,000 Units by mouth twice a week. 11/29/2017 acarbose (PRECOSE) 25 mg TabletIndications:Weight gain Take 1 tablet by mouth daily. 30 tablet 11 09/03/2017 10/20/2017 ibuprofen (ADVIL;MOTRIN) 800 mg tablet 10/18/2010 11/26/2017 documented as of this encounter Plan of Treatment Upcoming Encounters Date Type Department Care Team (Late st Contact Info) Description 06/15/2024 3:00 PM EDT Hospital Encounter CT Scan [place] [facility] [place] [address] Alena Pizarro APRN [facility] [address] 07/09/2024 8:30 AM EDT Appointment XRay at [address] [phone] [place] [address] 07/17/2024 8:00 AM EDT Procedure [place] [address] 08/26/2024 8:00 AM EST Office [place] [address] 08/27/2024 9:00 AM EST Clinical [place] [address] documented as of this encounter Procedures Procedure Name Priority Date/Time Associated Diagnosis Comments XR FLUORO BARIUM SWALLOW (SINGLE CONTRAST) Routine 09/19/2017 10:05 AM EST Gastroesophageal reflux disease, esophagitis presence not specified documented in this encounter Results * XR Fluoro Barium Swallow (09/19/2017 10:05 AM EST) Anatomical Region Laterality Modality N/A Radio Fluoroscop y Impressions 09/19/2017 10:25 AM EST 1. ??Intact Magdaleno fundoplication wrap. 2. ??Normal esophageal motility. Preliminary report signed by: Kalpana Wright at 09/19/2017 10:21 AM I have personally reviewed the image(s) and the residents interpretation and agree with the findings, Dennis Hall at 09/19/2017 10:25 AM Narrative 09/19/2017 10:25 AM EST EXAMINATION: XR FLUORO BARIUM SWALLOW CLINICAL HISTORY: GERD, h/o slipped Magdaleno TECHNIQUE: Single contrast esophagram was performed. Fluoroscopic spot films were obtained. A 13 mm barium tablet was given. Fluoro time: 1.77 minutes COMPARISON: Barium swallow 07/26/2014 FINDINGS: There is expected tapering of the distal esophagus and mass effect upon the gastric cardia consistent with history of Magdaleno fundoplication. The esophagus is normal in course and caliber, and distends well. ?? The Magdaleno fundoplication wrap is intact below the diaphragm. Esophageal peristalsis is normal. There is mild esophagoesophageal reflux from the distal esophagus above the fundoplication wrap into the mid thoracic esophagus. No gastroesophageal reflux was noted spontaneously or elicited with provocative maneuvers. The 13 mm barium tablet rapidly passed through the esophagus and Magdaleno fundoplication wrap into the stomach without delay. Procedure Note Dennis Hall MD - 09/19/2017 EXAMINATION: XR FLUORO BARIUM SWALLOW CLINICAL HISTORY: GERD, h/o slipped Magdaleno TECHNIQUE: Single contrast esophagram was performed. Fluoroscopic spot films wereobtained. A 13 mm barium tablet was given. Fluoro time: 1.77 minutes COMPARISON: Barium swallow 07/26/2014 FINDINGS: There is expected tapering of the distal esophagus and mass effect uponthe gastric cardia consistent with history of Magdaleno fundoplication. Theesophagus is normal in course and caliber, and distends well. The Magdaleno fundoplication wrap is intact below the diaphragm. Esophageal peristalsis is normal. There is mild esophagoesophageal reflux from the distal esophagus abovethe fundoplication wrap into the mid thoracic esophagus. No gastroesophageal reflux was noted spontaneously or elicited withprovocative maneuvers. The 13 mm barium tablet rapidly passed through the esophagus and Magdaleno fundoplication wrap into the stomach without delay. IMPRESSION 1. Intact Magdaleno fundoplication wrap. 2. Normal esophageal motility. Preliminary report signed by: Kalpana Wright at 09/19/2017 10:21 AM I have personally reviewed the image(s) and the residents interpretationand agree with the findings, Dennis Hall at 09/19/2017 10:25 AM 10:25 AM Ange Oreilly MD IMG FLUORO OR DERABLES documented in this encounter Visit Diagnoses Diagnosis Gastroesophageal reflux disease, esophagitis presence not specified documented in this encounter Administered Medications Inactive Administered Medications - up to 3 most recent administrations Medication Order MAR Action Action Date Dose Rate Site barium sulfate (E-Z DISK) tablet 700 mg 700 mg, Oral, ONCE, 1 dose, On Fri09/19/17 at 1030, Routine Given 09/19/2017 10:30 AM EST 700 mg barium sulfate (E-Z-HD) 98 % oral suspension 120 mL 120 mL, Oral, ONCE, 1 dose, On Fri09/19/17 at 1030, Routine Given 09/19/2017 10:30 AM EST 120 mLs barium sulfate (EZPAQUE) oral suspension 100 mL 100 mL, Oral, ONCE, 1 dose, On Fri09/19/17 at 1030, Routine Given 09/19/2017 10:30 AM EST 100 mLs documented in this encounter Care Teams Deputy Insurance Commissioner Relationship Specialty Start Date End Date Arely Arzola APRN [phone] [place] [address] PCP - General 11/23/12 09/30/17 documented as of this encounter
--- OUTSIDE RECORDS SUMMARY | 2024-06-12 13:44 | XMS_ITS | Encounter Summary ---
Author Organization [facility] [place] [address] Care Team Providers Care Metrologist Name Role Phone Arely Arzola LOUIE Primary Care Provider [phone] Encounter Details Date Type Department Care Team (Late st Contact Info) Description 11/25/2012 5:39 PM EDT - 11/25/2012 9:02 PM EDT [place] [address] Sheridan Mosher MD [facility] [place] [address] LAPAROSCOPIC REVISION OF GABRIELLA FUNDOPLASTY (WRVU 48.75) Social History Tobacco Use Types Packs/Day Years Used Date Smoking Tobacco: Never Assessed Tobacco Cessation:Counseling Given: No Alcohol Use Standard Drinks/Week Comments No 0 (1 standard drink = 0.6 oz pur e alcohol) Sex and Gender Information Value Date Recorded Sex Assigned at Not on file Gender Identity Not on file Sexual Orientation Not on file documented as of this encounter Last Filed Vital Signs Vital Sign Reading Time Taken Comments Blood Pressure 100/52 11/25/2012 9:00 PM EDT Pulse 59 11/25/2012 9:00 PM EDT Temperature 36.4 ??C (97.5 ??F) 11/25/2012 8:27 PM ED T Respiratory Rate 20 11/25/2012 9:00 PM EDT Oxygen Saturation 97% 11/25/2012 9:00 PM EDT Inhaled Oxygen Concentration - - Weight 71.2 kg (157 lb) 11/25/2012 3:37 PM EDT Height 154.9 cm (5' 1) 11/25/2012 3:37 PM EDT Body Mass Index 29.66 11/25/2012 3:37 PM EDT documented in this encounter Discharge Instructions * Patient Instructions* Manoj Leyva MD - 11/25/2012 8:29 PM EDT Call your doctor if you develop: Fever greater than 101.3 degrees Farenheit (38.5 degrees Celcius), chills, nausea or vomiting. Alsocall if you develop severe pain not relieved by your prescribed oral pain medicine. CALL THE GENERAL SURGERY CLINIC DURING WORKING HOURS AT , OR CALL AFTERCLINIC HOURS, WEEKENDS AND HOLIDAYS: ASK FOR THE GENERAL SURGERY RESIDENT MODEL AND MOLD MAKER PLASTER IF ANY OF THE ABOVE OCCUR. Activity level: Increase your activity slowly. You may tire easily, so frequent rest periods may be necessary. Do not lift more than 10 pounds for 4 weeks. Walk three times a day. Use common sense. Don't exhaust yourself. Diet: You should follow a post Gabriella diet, as instructed by the track fitter in the hospital for a period of approximately 3 weeks. The main purpose of this diet is to have you consume foods that will slide easily down into your stomach. Most foods when well chewed should pass through the esophagus and into your stomach. However, patients do not always chew foods well enough. Slow, thorough chewing isrecommended. Moistening foods with sauce, gravy, syrup or other liquids can be helpful. You should consume only very soft, small particle foods. You should not eat bread or drink carbonated beverages. You should start with more bland foods and if these are tolerated you may increase the amount of spice in your food. If you find there are foods that don't agree with you, try these sparingly until y ou can tolerate them. You need to remain in an upright position for 30-60 minutes after you eat. You may find that you need to eat smaller meals with frequent between meal snacks to get enough calories. Pills: Please crush all pills for 4 weeks. Pain: Roxicodone elixir for pain, as directed. Driving: Do not drive while taking narcotic pain medications such as Roxicodone. Shower/Bath: You may shower and let water run over wound 48 hours after your surgery. No soaking baths or swimming for 2 weeks from surgery. Wound Care: Once showering, wash your incision(s) daily with soap and rinse well, pat dry. Assess for any signsof infection such as increased redness, pain, warmth or drainage. The Steri-Strips will fall off in7-10 days. The brown bandaids can be removed at any time. Follow-up: You have a follow-up appointment scheduled to see Dr. Mosher at the [facility]. You will receive a letter in the mail confirming the appointment date and time. Your follow-up is very important to us. Please call [phone] if you do not hear from us within 7 days of discharge or if you need to change the appointment date/time. 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 01/11/2011 OXYcodone-acetaminophen (ROXICET) 5-325 mg/5 mL solution Take 5-10 mLs by mouth every 3 hours as needed for Pain. 350 mL 0 11/27/2012 07/26/2014 OXYcodone (ROXICODONE) 5 mg/5 mL solution Take 5-10 mLs by mouth every 4 hours as needed for Pain. 2000 mL 0 11/27/2012 07/26/2014 ibuprofen (ADVIL;MOTRIN) 800 mg tablet 10/18/2010 11/26/2017 documented as of this encounter Progress Notes * Syeda Haque RN - 11/27/2012 3:03 PM EDT Patient Name: Mora Bolanos Patient Age: 37 y.o. Birthdate: 1975 Admit date: 11/25/2012 Attending Physician: No att. providers found Pt DC home w/ family, HC DC'd, Rx's sent to pharmacy, all ?'s answered, pain well controlled. * Saji Woods P - 11/27/2012 7:04 AM EDT General Surgery Resident Progress Note Mora Boudreaux Fecdanielle,[id number],1975 ID: A 37 yoF with h/o GERD, endometriosis, chronic constipation, now s/p re-do laparoscopic Gabriella fundoplication POD#2 Interval: No acute events over night Ambulating Pain better controlled Tolerating adequate oral intake ??? DISCONTD: lactated ringers Stopped (11/26/12 0800) ??? DISCONTD: morphine FRICTION SAW OPERATOR Stopped (11/26/12 0800) ??? DISCONTD: FRICTION SAW OPERATOR diaz ??? DISCONTD: FRICTION SAW OPERATOR diaz ??? scopolamine 1 patch Transdermal Q72H And ??? scopolamine 1 patch Transdermal Q72H ??? sodium chloride 0.9 % 5 mL Intravenous Q12H ketorolac, OXYcodone-acetaminophen, DISCONTD: OXYcodone-acetaminophen, diphenhydrAMINE, naloxone, ondansetron, promethazine Temp: [36.7 ??C (98.1 ??F)-36.8 ??C (98.2 ??F)] Heart Rate: [58-72] Resp: [16-20] BP: (97-110)/(56-72) SpO2: [96 %-98 %] Intake/Output Summary (Last 24 hours) at 11/27/12 0704 Last data filed at 11/26/122022 Gross per 24 hour Intake 1200 ml Output 1800 ml Net -600 ml Patient Vitals for the past 168 hrs: Weight 11/25/12 1537 71.215 kg (157 lb) Exam: General: Alert and oriented x4 Heart: RRR Lungs: Vesicular bilateral Abdomen: Soft, non distended, diffusely tender, no peritonitis, + BS Extremities: Warm, no edema Recent Labs Basename 11/26/12 0639 WBC 16.3* HGB 12.4 HCT 37.4 PLATELET 204 PT -- INR -- PTT -- Recent Labs Basename 11/26/12 0639 NA 141 K 4.3 CL 106 CO2 23 BUN 10 CREATININE 0.65* GLUCOSE 141 CALCIUM 8.4* MAGNESIUM 0.76 PHOS -- Assessment/Plan: A 37 yoF with h/o GERD, endometriosis, chronic constipation, now s/p re-do laparoscopic Gabriella fundoplication POD#2 Vital signs, I/O, labs all close to normal values, abdominal exam not concerning Pain issues resolving. Full liquid post Gabriella diet Aim for d/c home this AM * Samreen Cerda RN - 11/26/2012 1:57 PM EDT Care Management/ CRC Pager# [phone]/ Assessment O: Patient talking on phone now. Notes reviewed. Patient lives with her Jay. Patient has [employer] PPO insurance. No Advance Directives on file here at [facility]. Patient is POD #1 laparoscopic Gabriella revision. At this time patient is on full liquid diet po. Patient voiding without difficulty. Roxicet solution po q4hr prn. Toradol IV q6hr prn. Patient OOB withassistance. 98% on RA. A/P: I will continue in CRC role, following patient's in-hospital course. I am available to assist should discharge needs arise. * Agnieszka Steiner DT - 11/26/2012 10:36 AM EDT Nutrition Services - Education Note Mora Bolanos : 1975 AGE: 37 y.o. MedDx/PMHx: Reason for Nutrition Intervention: Consult Diet Order: Gabriella, full liquids, no carbonated beverages Appetite: small Food allergies: none Height: (cm) 154.9 Weight: (kg) 71.2 BMI: 29.7 Education: Reviewed gabriella and full liquid dietary guidelines. Verbalized good understanding. Education material, with means of contact provided. Assessment: Patient denies need for any other changes at this time. Nutrition Plan: Diet: Gabriella, full liquids, no carbonated beverages Encourage good po intake. Support and encouragement provided. Nutrition services to follow weekly thru hospital course unless consulted in the interim. MARIUM ELMORE * Saji Woods - 11/26/2012 7:52 AM EDT General Surgery Resident Progress Note Mora Boudreaux Fecdanielle,[id number],1975 ID: A 37 yoF with h/o GERD, endometriosis, chronic constipation, now s/p re-do laparoscopic Gabriella fundoplication POD#1 Interval: Taken to surgery last PM, no intraoperative events reported Pain issues this AM Has not ambulated No nausea, tolerating small amount of liquids ??? lactated ringers 100 mL/hr (11/26/12 0521) ??? morphine FRICTION SAW OPERATOR ??? FRICTION SAW OPERATOR diaz ??? scopolamine 1 patch Transdermal Q72H And ??? scopolamine 1 patch Transdermal Q72H ??? sodium chloride 0.9 % 5 mL Intravenous Q12H ??? DISCONTD: ceFAZolin 2 g Intravenous Once ??? DISCONTD: heparin (porcine) 5,000 Units Subcutaneous Once diphenhydrAMINE, naloxone, ondansetron, promethazine, DISCONTD: fentaNYL (PF), DISCONTD: HYDROmorphone, DISCONTD: naloxone, DISCONTD: ondansetron, DISCONTD: promethazine, DISCONTD: BUpivacaine (PF), DISCONTD: ceFAZolin Temp: [36.4 ??C (97.5 ??F)-36.8 ??C (98.2 ??F)] Heart Rate: [53-84] Resp: [18-20] BP: (95-133)/(50-79) SpO2: [97 %-100 %] Intake/Output Summary (Last 24 hours) at 11/26/12 0753 Last data filed at 11/26/12 0600 Gross per 24 hour Intake 2783 ml Output 955 ml Net 1828 ml Patient Vitals for the past 168 hrs: Weight 11/25/12 1537 71.215 kg (157 lb) Exam: General: Alert and oriented x4 Heart: RRR Lungs: Vesicular bilateral Abdomen: Soft, non distended, diffusely tender, no peritonitis, + BS Extremities: Warm, no edema Recent Labs Basename 11/26/12 0639 11/23/12 1444 WBC 16.3* 6.9 HGB 12.4 13.2 HCT 37.4 40.2 PLATELET 204 205 PT -- -- INR -- -- PTT -- -- Recent Labs Basename 11/26/12 0639 11/23/12 1444 NA 141 139 K 4.3 3.9 CL 106 105 CO2 23 26 BUN 10 8 CREATININE 0.65* 0.71 GLUCOSE 141 -- CALCIUM 8.4* -- MAGNESIUM 0.76 -- PHOS -- -- Assessment/Plan: A 37 yoF with h/o GERD, endometriosis, chronic constipation, now s/p re-do laparoscopic Gabriella fundoplication POD#1 Vital signs, I/O, labs all close to normal values, abdominal exam not concerning Pain issues, will add Toradol, advance along path, Hliv, ambulate, oral pain medications, hurst out, full liquid diet Pending on progress, possible d/c this PM * Ryan Leyva RN - 11/26/2012 4:15 AM EDT Patient Name: Mora Bolanos Patient Age: 37 y.o. Birthdate: 1975 Admit date: 11/25/2012 Attending Physician: Sheridan Mosher MD Had Lumbar drain checked by Melba Garcia RN to assure no kinks in line and that all stopcocks openand correctly set to negative 5 cm. No kinks found, all stopcocks open and correctly set at negetive 5cm. At this point no CSF in chamber. Did see some fluctuation in tubing when lowered but no CSF in graduate container. Will very closely monitor. Denies headache, nausea or headache. * Ryan Leyva RN - 11/25/2012 10:11 PM EDT Patient Name: Mora Bolanos Patient Age: 37 y.o. Birthdate: 1975 Admit date: 11/25/2012 Attending Physician: Sheridan Mosher MD Patient arrivedd from same day surgery s/p fundoplication redo, Patient with 5 bandaids from endoscopic incisions all dry and intact. Hypoactive bowel sounds. Denies nausea vomiting. Oriented to roomand call reddy system. FRICTION SAW OPERATOR morphine infusing, set in PACU/Same day surgery. * Cheryl Matos RN - 11/25/2012 9:34 PM EDT 2129 spoke w/ Dr. Fonseca about SBP=99-OK TO DISCHARGE FROM PACU CARE * Krystyna Luna MD - 11/25/2012 9:31 PM EDT General Surgery Post-op Note Mora Bolanos is a 37 y.o. female s/p the following procedure: revision of Gabriella Fundiplocation S: Denies nausea/vomiting, chest pain, SOB, or itchiness. Pain well controlled, no complaints. Mildsore throat O: Temp: [36.4 ??C (97.5 ??F)-36.7 ??C (98.1 ??F)] Heart Rate: [53-84] Resp: [18-20] BP: (100-133)/(50-79) SpO2: [97 %-100 %] I/O this shift: In: 1844 [I.V.:1844] Out: 355 [Urine:350; Blood:5] Physical Exam Gen: A&Ox3, NAD, lying comfortably in bed CV: Bradycardic, no m/r/g Pulm: CTAB throughout 2L NC Abd: Soft, nontender, nondistended, port sites all clean and dry with Bandaids : Hurst removed at end of case, no urine output yet, bladder scanned for 0cc Extr: WWP, moving all 4 extremities, no c/c/e, venodynes in place. Moves all 4 feels all 4 Recent Labs Basename 11/23/12 1444 WBC 6.9 HGB 13.2 PLATELET 205 Recent Labs Basename 11/23/12 1444 NA 139 K 3.9 CL 105 CO2 26 Recent Labs Basename 11/23/12 1444 BUN 8 CREATININE 0.71 Imaging Postop CXR: No new imaging A/P Mora Bolanos is a 37 y.o. female s/p revision of gabriella fundiplocation currently in stable condition and recovering well. Continue current management. Will monitor for urine output throughout the night. KRYSTYNA LUNA MD 11/25/2012 * Cheryl Matos RN - 11/25/2012 8:58 PM EDT 2044 instructed to use FRICTION SAW OPERATOR Morphine-can successfully perform * Cheryl Matos RN - 11/25/2012 8:57 PM EDT 2024 s/p gabriella revision w/ [id number]-[id number] dressings (5 bandaids) intact documented in this encounter H&P Notes * Sheridan Mosher MD - 11/25/2012 5:06 PM EDT Patient Name: Mora Bolanos Patient Age: 37 y.o. Birthdate: 1975 Admit date: 11/25/2012 Attending Physician: Sheridan Mosher MD Mrs. Bolanos is a 37F post Lap Gabriella Fundoplication in 2010. Apparently had some issues with epigastric pain last year in [place] and had part of her wrap taken down. No improvement in discomfort. Now has recurrent GERD. EGD shows abnormal wrap with some esophagitis Manometry normal Minimal herniation on swallow On ROS, she denies any recent illnesses. No fevers or chills. No CHAUDHRY or vision changes. 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 No SOB. Epigastric pain as above. Chronic constipation which is being managed medicallly.Appetite is poor, although she has gained 60lbs over 4 yrs after quitting smoking. PMHx: Endometriosis Chronic constipation PSurgHx: Lap NissenLaparoscopic ablation of endometriosis x 2 Hysterectomy 1994 Unilateral oophorectomy 1995 Csection Social Hx: Former smoker, no ETOH, no drugs with 2 children FHx: Mother with ovarian CA Maternal aunts x 2 with colon CA Father with lupus, CAD/SC Brother x 2 with CAD/SC Maternal uncle with pancreatic CA Maternal GF with pancreatic CA All: wellbutrin, reglan, onion Meds updated in [facility] On P/E, she is well appearing and appropriate. Afebrile with stable VS. CVS RRR normal heart sounds. Chest is clear. Abdomen obese, soft, NTTP. No extremity edema. documented in this encounter Miscellaneous Notes * Miscellaneous - Provider, Kulwinder - 11/28/2012 11:26 AM EDT * Plan of Care - Ryan Leyva RN - 11/27/2012 2:37 AM EDT Problem: Pain, Acute (Adult, Obstetric) Goal: Acute Pain: Acceptable Pain Control/Comfort Level - Pain, Acute (Adult, Obstetric) Patient requested to be awakened when pain medication are due and this has controlled her pain in the 2-3/10 range which is acceptable for patient. Patient s/p alicia fundoplication for severe GERD and was kept in hospital due to poor pain control. Currently plan working keeping patient within acceptable pain threshold for patient. Tolerating fluids and full liquids with no nausea or emesis. Anticipate patient will be discharged later today. * Plan of Care - Kasandra Molina RN - 11/26/2012 12:08 PM EDT Problem: Pain, Acute (Adult, Obstetric) Goal: Acute Pain: Acceptable Pain Control/Comfort Level - Pain, Acute (Adult, Obstetric) FRICTION SAW OPERATOR was discontinued this morning. Pt c/o sever abdominal pain with rest and activity. Multiple pain med modality used to relieve pain (see MAR) with little effect. Will continue to monitor pain level and utilize other techniques to minimize pain. * Discharge Summary - Michael Laughlin MD - 11/26/2012 7:47 AM EDT GENERAL SURGERY Inpatient - Discharge Summary Patient Name: Mora Bolanos Patient Age: 37 y.o. Birthdate: 1975 Admit date: 11/25/2012 Discharge date: 11/27/2012 Attending Physician: Sheridan Mosher MD CC This Visit: Patient Active Problem List Diagnoses Date Noted ??? Gastroesophageal reflux 01/14/2011 ??? Dyspepsia 01/14/2011 HPI and Summary of Hospital Course: Mora Bolanos is a 37 y.o. female admitted on 11/25/2012 for a re-do laparoscopic Gabriella fundoplication. She tolerated the procedure well, and was admitted to the floor in stable condition thereafter. Once pain was adequately controlled on oral medications, she was tolerating a diet, and was ambulating and voiding at baseline, she was deemed medically appropriate for discharge to home on 2 Days Post-Op. Updated Allergies/ADRs: Allergies Allergen Reactions ??? Onion Anaphylaxis ??? Bupropion Hcl Other (See Comments) serum sickness ??? Metoclopramide Hcl Other (See Comments) Unknown Operations/Major Procedures: Operations: 11/25/2012 Surgeon(s) and Role: * Sheridan Mosher MD - Primary * Manoj Leyva MD: Procedure(s): LAPAROSCOPIC REVISION OF GABRIELLA FUNDOPLASTY ENDOSCOPY, UPPER GI, DIAGNOSTIC, WITH OR WITHOUT SPECIMENS Important Studies and Lab Data: Recent Labs Basename 11/26/12 0639 WBC 16.3* HGB 12.4 HCT 37.4 PLATELET 204 PT -- INR -- PTT -- Recent Labs Basename 11/26/12 0639 NA 141 K 4.3 CL 106 CO2 23 BUN 10 CREATININE 0.65* GLUCOSE 141 CALCIUM 8.4* MAGNESIUM 0.76 PHOS -- Discharge Examination: Last value Range last 24 hrs Temperature Temp: 36.7 ??C (98.1 ??F) Temp: [36.7 ??C (98.1 ??F)-36.8 ??C (98.2 ??F)] Heart Rate Heart Rate: 61 Heart Rate: [58-72] Blood Pressure BP: 98/58 mmHg BP: (97-108)/(56-72) Respiratory Rate Resp: 16 Resp: [16-18] SpO2 SpO2: 95 % SpO2: [95 %-98 %] Intake/Output Summary (Last 24 hours) at 11/27/12 1246 Last data filed at 11/27/12 0800 Gross per 24 hour Intake 1440 ml Output 1150 ml Net 290 ml Physical Exam: Gen: Resting in bed, NAD, oriented x3 Pulm: CTAB, no crackles/wheeze Card: Regular rate/rhythm, no m/r/g, no JVD Abd: Non-distended, normal BS, soft, moderately tender to palpation, incision dressings c/d/i Ext: WWP, no edema Discharge Medications: The following medications have been prescribed for you. If you notice any adverse reactions to your medications, please contact your primary care physician immediately or go tothe nearest Emergency Department. Medications prior to admission that will be resumed at discharge: Medication Sig Dispense Refill ??? ibuprofen (ADVIL;MOTRIN) 800 mg tablet ??? epiNEPHrine 0.15 mg/0.15 mL Cmpk combo pack Inject into the muscle as needed. New medications prescribed at discharge: Medication Sig Dispense Refill ??? OXYcodone-acetaminophen (ROXICET) 5-325 mg/5 mL solution Take 5-10 mLs by mouth every 3 hours as needed for Pain. 350 mL 0 ??? OXYcodone (ROXICODONE) 5 mg/5 mL solution Take 5-10 mLs by mouth every 4 hours as needed for Pain. 2000 mL 0 PCP: Arely Arzola APRN, Scheduled Appointments: The following appointments have been scheduled on your behalf: Future Appointments Date Time Provider Department Center 12/01/2012 2:00 PM Sheridan Mosher MD [facility] [address] [place] [address] CLIN Patient Instructions: Call your doctor if you develop: Fever greater than 101.3 degrees Farenheit (38.5 degrees Celcius), chills, nausea or vomiting. Alsocall if you develop severe pain not relieved by your prescribed oral pain medicine. CALL THE GENERAL SURGERY CLINIC DURING WORKING HOURS AT , OR CALL AFTERCLINIC HOURS, WEEKENDS AND HOLIDAYS: ASK FOR THE GENERAL SURGERY RESIDENT MODEL AND MOLD MAKER PLASTER IF ANY OF THE ABOVE OCCUR. Activity level: Increase your activity slowly. You may tire easily, so frequent rest periods may be necessary. Do not lift more than 10 pounds for 4 weeks. Walk three times a day. Use common sense. Don't exhaust yourself. Diet: You should follow a post Gabriella diet, as instructed by the track fitter in the hospital for a period of approximately 3 weeks. The main purpose of this diet is to have you consume foods that will slide easily down into your stomach. Most foods when well chewed should pass through the esophagus and into your stomach. However, patients do not always chew foods well enough. Slow, thorough chewing isrecommended. Moistening foods with sauce, gravy, syrup or other liquids can be helpful. You should consume only very soft, small particle foods. You should not eat bread or drink carbonated beverages. You should start with more bland foods and if these are tolerated you may increase the amount of spice in your food. If you find there are foods that don't agree with you, try these sparingly until y ou can tolerate them. You need to remain in an upright position for 30-60 minutes after you eat. You may find that you need to eat smaller meals with frequent between meal snacks to get enough calories. Pills: Please crush all pills for 4 weeks. Pain: Roxicodone elixir for pain, as directed. Driving: Do not drive while taking narcotic pain medications such as Roxicodone. Shower/Bath: You may shower and let water run over wound 48 hours after your surgery. No soaking baths or swimming for 2 weeks from surgery. Wound Care: Once showering, wash your incision(s) daily with soap and rinse well, pat dry. Assess for any signsof infection such as increased redness, pain, warmth or drainage. The Steri-Strips will fall off in7-10 days. The brown bandaids can be removed at any time. Follow-up: You have a follow-up appointment scheduled to see Dr. Mosher at the [facility] Friday. You will receive a letter in the mail confirming the appointment date and time. Your follow-up is very important to us. Please call [phone] if you do not hear from us within 7 days of discharge or if you need to change the appointment date/time. Call your doctor if: Please call your doctor immediately or go to an Emergency Department if you notice worsening pain not controlled by pain medications, uncontrolled headache, vision changes, chest pain, difficulty breathing, persistent nausea and vomiting, new redness or swelling in any extremities, new onset weakness or changes in sensation, or for any fevers greater than 101.3 F. Outpatient Services/Studies: No discharge procedures on file. Provider Instructions Call your doctor if you develop: Fever greater than 101.3 degrees Farenheit (38.5 degrees Celcius), chills, nausea or vomiting. Alsocall if you develop severe pain not relieved by your prescribed oral pain medicine. CALL THE GENERAL SURGERY CLINIC DURING WORKING HOURS AT , OR CALL AFTERCLINIC HOURS, WEEKENDS AND HOLIDAYS: ASK FOR THE GENERAL SURGERY RESIDENT MODEL AND MOLD MAKER PLASTER IF ANY OF THE ABOVE OCCUR. Activity level: Increase your activity slowly. You may tire easily, so frequent rest periods may be necessary. Do not lift more than 10 pounds for 4 weeks. Walk three times a day. Use common sense. Don't exhaust yourself. Diet: You should follow a post Gabriella diet, as instructed by the track fitter in the hospital for a period of approximately 3 weeks. The main purpose of this diet is to have you consume foods that will slide easily down into your stomach. Most foods when well chewed should pass through the esophagus and into your stomach. However, patients do not always chew foods well enough. Slow, thorough chewing isrecommended. Moistening foods with sauce, gravy, syrup or other liquids can be helpful. You should consume only very soft, small particle foods. You should not eat bread or drink carbonated beverages. You should start with more bland foods and if these are tolerated you may increase the amount of spice in your food. If you find there are foods that don't agree with you, try these sparingly until y ou can tolerate them. You need to remain in an upright position for 30-60 minutes after you eat. You may find that you need to eat smaller meals with frequent between meal snacks to get enough calories. Pills: Please crush all pills for 4 weeks. Pain: Roxicodone elixir for pain, as directed. Driving: Do not drive while taking narcotic pain medications such as Roxicodone. Shower/Bath: You may shower and let water run over wound 48 hours after your surgery. No soaking baths or swimming for 2 weeks from surgery. Wound Care: Once showering, wash your incision(s) daily with soap and rinse well, pat dry. Assess for any signsof infection such as increased redness, pain, warmth or drainage. The Steri-Strips will fall off in7-10 days. The brown bandaids can be removed at any time. Follow-up: You have a follow-up appointment scheduled to see Dr. Mosher at [facility]. You will receive a letter in the mail confirming the appointment date and time. Your follow-up is very important to us. Please call [phone] if you do not hear from us within 7 days of discharge or if you need to change the appointment date/time. Special Instructions Given to Patient at Discharge: An After Visit Summary was printed and given to the patient. CC: Arely Arzola APRN Signed: GENERAL SURGERY 11/27/2012 * Plan of Care - Ryan Leyva RN - 11/26/2012 1:15 AM EDT Problem: Pain, Acute (Adult, Obstetric) Intervention: Acute Pain: Related Risk Factors Patient s/p endoscopic fundoplication for reflux. 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 No c/onausea or vomiting, iv fluids infusing, tolerating ice/ water without nausea vomiting. Resp even and unlabored. Patient alert and oriented x4, easily awaken with voice or light touch. * Op Note - Sheridan Mosher MD - 11/25/2012 8:18 PM EDT [facility] Operative Note Patient Name: Mora Bolanos : [id number] MR#: [id number] Case Date: 11/25/2012 Surgeon: Surgeon(s) and Role: * Sheridan Mosher MD - Primary * Manoj Leyva MD No qualified resident available to assist Preoperative diagnosis: FAILED FUNDOPLICATION Postoperative diagnosis: FAILED FUNDOPLICATION Procedure(s): LAPAROSCOPIC REVISION OF GABRIELLA FUNDOPLASTY ENDOSCOPY, UPPER GI, DIAGNOSTIC, WITH OR WITHOUT SPECIMENS General Estimated Blood Loss: 8cc Drains: none Disposition: awakened from anesthesia, extubated and taken to the recovery room in a stable condition, having suffered no apparent untoward event. Condition: doing well without problems This 37 y.o. female presented with a long history of gastroesophageal reflux disease. Her medical management was not optimal and the patient chose to have this treated surgically. She had a fundoplication with good result but a surgeon in [place] took it down and she now has recurrent reflux. The risks and benefits of Gabriella fundoplication were discussed with the patient andhe chose to have this revision done laparoscopically. Under general anesthesia and endotracheal intubation, the patient was prepped and draped in the supine position. A small traverse incision was made approximately 15-cm below the xiphoid to the left of midline after infiltrating with 0.25 percent Marcaine. The abdomen was entered using a 10mm optiview port. The abdomen was insufflated with CO2 to a pressure of 15 mmHg. The 45-degree telescope was inserted and, under direct vision, the 5-mm port was placed approximately 10 cm along the xiphoid to the left of midline. A 5-mm port was placed approximately 15 cm along the xiphoid on the right side of the subcostal margin. The liver retractor was placed through this and used to elevate the left lobe of the liver thus exposing the hiatus. Another 5-mm port was placed approximately 10 cm along the right costal margin directed through thefalciform. A final 5-mm port was placed approximately 25 cm along the left costal margin. Traction was placed on the stomach and the fundoplication was free on the left and adherent on the right to the liver and jeff. This was taken down using sharp dissection until the stomach was in the normal anatomic position. The esophagus was then easily encircled with a Rene drain and this was used for further traction. The crural closure appeared adequate. After adequate mobility, the mobilized fundus easily remained in place around the esophagus withouttension. Endoscopy was performed to confirm the location of the GE junction and integrity of the stomach. No leaks were noted. A 60 Hungarian Bougie was passed by Anesthesia and left in place for formation of the fundoplication. The mobilized fundus was brought behind the esophagus through the posterior window and approximated in 360-degree fashion with each 2- 0 Surgilon suture incorporating full thickness bites in the left and right of the esophagus, as well as partial-thickness bites of the esophageal wall. Care was taken to identify and preserve the vagus nerves. A total of three sutures placed approximately 1 cm apart, thus creating a 2-cm loose floppy fundoplication was created. The area was copiously irrigated with saline to assure adequate hemostasis. All ports were then removed under direct vision and the [place] drain and liver retractor were removed. The patient's wounds were closed with running subcuticular 4-0 Vicryl suture, followed by Steri-Strips and Band-aids. The patient tolerated the procedure without any complication and sponge, instrument and needle counts were correct. The patient returned tothe Recovery Room in stable condition. No specimen sent to pathology * OR Attestation - Sheridan Mosher MD - 11/25/2012 8:18 PM EDT Attestation: Case Date: 11/25/2012 I performed this procedure without the involvement of a resident. SHERIDAN MOSHER MD 11/25/2012 * Miscellaneous - Provider, Scanning - 11/25/2012 3:59 PM EDT documented in this encounter Plan of Treatment Upcoming Encounters Date Type Department Care Team (Late st Contact Info) Description 06/15/2024 3:00 PM EDT Hospital [place] [address] Alena Pizarro [place] [address] 07/09/2024 8:30 AM EDT Appointment XRay at [address] [address] [place] [address] 07/17/2024 8:00 AM EDT Procedure [place] [address] 08/26/2024 8:00 AM EST Office Visit [place] [address] 08/27/2024 9:00 AM EST Clinical Support [place] [address] documented as of this encounter Procedures Procedure Name Priority Date/Time Associated Diagnosis Comments DIFFERENTIAL, AUTOMATED Routine 11/26/2012 6:39 AM EDT CBC (WITH DIFF) Routine 11/26/2012 6:39 AM EDT MAGNESIUM Routine 11/26/2012 6:39 AM EDT BASIC METABOLIC PANEL Routine 11/26/2012 6:39 AM EDT ENDOSCOPY, UPPER GI, DIAGNOSTIC, WITH OR WITHOUT SPECIMENS (WRVU 2.09) Yes 11/25/2012 5:50 PM EDT FAILED FUNDOPLICATION LAPAROSCOPIC REVISION OF GABRIELLA FUNDOPLASTY (WRVU 48.75) Yes 11/25/2012 5:50 PM EDT FAILED FUNDOPLICATION documented in this encounter Results * (ABNORMAL) Differential, Automated (11/26/2012 6:39 AM EDT) Neutrophil % 88.6(H) 34.0 - 71.0 % CERNER MILLENNIUM Neutrophil Absolute 14.47(H) 1.50 - 6.30 x10(3)/mc L CERNER MILLENNIUM Lymph % 6.2(L) 19.0 - 53.0 % CERNER MILLENNIUM Lymphocytes Abs 1.0 1.0 - 3.6 x10(3)/mc L CERNER MILLENNIUM Monocyte % 5.1 4.0 - 13.0 % CERNER MILLENNIUM Monocyte Abs 0.8 0.2 - 1.0 x10(3)/mc L CERNER MILLENNIUM Eos % 0.0 0.0 - 7.0 % CERNER MILLENNIUM Eosinophils Abs 0.0 0.0 - 0.5 x10(3)/mc L CERNER MILLENNIUM Basophil % 0.0 0.0 - 2.0 % CERNER MILLENNIUM Baso Absolute 0.0 0.0 - 0.2 x10(3)/mc L CERNER MILLENNIUM Immature Gran % 0.10 0.00 - 0.66 % CERNER MILLENNIUM Comment: Immature granulocytes(IG's)percentage and absolute count will include metamyelocytes, myelocytes, and promyelocytes. Blood smears from CBCs yielding IG's will be scanned manually for concordance. If this scan disagrees with the automated IG or if promyelocytes are noted, a manual differential will be performed. Immature Gran Absolute 0.01 0.00 - 0.05 x10(3)/mc L CERNER MILLENNIUM Blood specimen (specimen) 11/26/2012 6:39 AM EDT 11/26/2012 6:54 AM EDT Manoj Leyva MD HEMATOLOGY ORD ERABLES Performing Organization Address [facility]/ZIP Co de Phone Number CERNER MILLENNIUM * Magnesium (11/26/2012 6:39 AM EDT) Magnesium 0.76 0.69 - 1.07 mmol/L CERNER MILLENNIUM Blood specimen (specimen) 11/26/2012 6:39 AM EDT 11/26/2012 6:54 AM EDT Narrative Resulting Agency Comment Spec In Lab Manoj Leyva MD CHEMISTRY ORDE JEM Performing Organization Address [facility]/RUST de Phone Number CERNER MILLENNIUM * (ABNORMAL) Basic Metabolic Panel (non-fasting) (11/26/2012 6:39 AM EDT) Pathologist [facility] Glucose 141 60 - 199 mg/dL CERNER MILLENNIUM Comment:Diabetes: >=200 mg/d L plus symptoms Blood Urea Nitrogen 10 8 - 18 mg/dL CERNER MILLENNIUM Creatinine 0.65(L) 0.70 - 1.20 mg/dL CERNER MILLENNIUM Comment: Please note that the pediatric reference intervals supplied above were not validated at [facility]. Results from pediatric patients should be interpreted in conjunction to the patient's age, height and muscle mass. Sodium 141 135 - 145 mmol/L CERNER MILLENNIUM Potassium 4.3 3.5 - 5.0 mmol/L CERNER MILLENNIUM Comment: Please note: ??Patients with WBC >100,000 may have falsely elevated Potassium levels. ??For accurate Potassium quantification in these patients send serum separator tube (gold top) for subsequent determinations. ??Contact the Clinical Chemistry Laboratory if there are any questions. Chloride 106 98 - 107 mmol/L CERNER MILLENNIUM Carbon Dioxide 23 22 - 31 mmol/L CERNER MILLENNIUM Anion Gap 12 5 - 15 mmol/L CERNER MILLENNIUM Calcium 8.4(L) 8.5 - 10.5 mg/dL CERNER MILLENNIUM Est Glomerular Filtration Rate >60 >=60 CERNER MILLENNIUM Comment: The National Kidney Disease Education Program (NKDEP) has recommended all laboratories report estimated GFR (eGFR) along with plasma creatinine measurements to assist you with recognition of early kidney disease. Caveats: ??Plasma creatinine should be at steady-state (unchanged within the past week). For patients multiply eGFR by 1.2. The MDRD equation was developed using patients between the ages of 18 and 70 years. ?? The MDRD equation has not been validated for patients < 18 years of age and should not be used to assess renal function in the pediatric population. ??The MDRD eGFR equation will also overestimate the true GFR of patients above the age of 70. ??This overestimation is variable but increases with age. At present, NKDEP does NOT recommend using the MDRD equation for drug dosing purposes and pharmacists should continue to use their current dosing methods. In addition, numerical eGFR values greater than 60 ml/min/1.73 square meters should be treated as > 60, and not an exact number due to greater inaccuracies at these higher values. Per NKDEP, they classify normal renal function as any GFR >60ml/min/1.73 square meters; chronic kidney disease when GFR <60, and renal failure when GFR <15. ??This calculation may not be valid for patients with atypical muscle mass (very lean or obese), acute renal failure, and in patients with diabetic kidney disease. References: http://nkdep.nih.gov/resources/NKDEP_Suggestn4Labs_0606_508.pdf http://www.kidney.org/professionals/kls/pdf/faq_gfr.pdf Pepito K, Hardeep NA, Sindy AK, Ziyad TS, Griselda AD, Daniel CORRY. Relative performance of the MDRD and CKD-EPI equations for estimating glomerular filtration rate among patients with varied clinical presentations. Clin J Am Soc Nephrol;6:1963-72. Blood specimen (specimen) 11/26/2012 6:39 AM EDT 11/26/2012 6:54 AM EDT Narrative Resulting Agency Comment Spec In Lab Manoj Leyva MD CHEMISTRY ORDE JEM Performing Organization Address [facility]/ZIP Co de Phone Number EUGENE BROOKS * (ABNORMAL) CBC (with Diff) (11/26/2012 6:39 AM EDT) White Blood Cell 16.3(H) 4.0 - 10.0 x10(3)/mc L CERNER MILLENNIUM Red Blood Cell 4.38 3.93 - 5.22 x10(6)/mc L CERNER MILLENNIUM Hemoglobin 12.4 11.2 - 15.7 gm/dL CERNER MILLENNIUM Hematocrit 37.4 34.0 - 45.0 % CERNER MILLENNIUM Mean Cell Volume 85.4 79.0 - 94.0 fL CERNER MILLENNIUM Mean Cell Hemoglobin 28.3 26.6 - 32.2 pg CERNER MILLENNIUM Mean Cell Hemoglobin Concentration 33.2 32.0 - 36.5 gm/dL CERNER MILLENNIUM Platelet 204 145 - 370 x10(3)/mc L CERNER MILLENNIUM RDW Standard Deviation 38.2 35.0 - 46.0 fL CERNER MILLENNIUM RDW coefficient of variation 12.4 10.9 - 14.4 % CERNER MILLENNIUM Mean Platelet Volume 10.5 9.0 - 12.0 fL CERNER MILLENNIUM Blood specimen (specimen) 11/26/2012 6:39 AM EDT 11/26/2012 6:54 AM EDT Narrative Resulting Agency Comment Spec In Lab Manoj Leyva MD HEMATOLOGY ORD WILMA Performing Organization Address City/[facility]/ZIP Co de Phone Number EUGENE BROOKS documented in this encounter Visit Diagnoses Not on filedocumented in this encounter Administered Medications Inactive Administered Medications - up to 3 most recent administrations Medication Order MAR Action Action Date Dose Rate Site BUpivacaine (PF) (MARCAINE) 0.25 % (2.5 mg/mL) injection ONCE PRN, Starting on Fri11/25/12 at 1903, Until Fri11/25/12 at 2139, Intra-Operative (Intra-Procedure), Routine Given 11/25/2012 7:03 PM EDT 30 mg 19- Surgical Site ceFAZolin (ANCEF) injection ONCE PRN, Starting on Fri11/25/12 at 1819, Until Fri11/25/12 at 2138, Intra-Operative (Intra-Procedure), Routine Given 11/25/2012 6:19 PM EDT 2 g fentaNYL 50mcg/mL injection 25-50 mcg, Intravenous, EVERY 5 MIN PRN, Starting on Fri11/25/12 at 2022, Until Fri11/25/12 at 2138, Pain, for breakthrough pain, Hold for respiratory rate less than 10 per minute. Maximum dose: 250 mcg over one hour., PACU Recovery, Routine Given 11/25/2012 8:54 PM EDT 25 mcg ketorolac (TORADOL) injection 15 mg 15 mg, Intravenous, EVERY 6 HOURS PRN, Starting on Germania 11/26/12 at 0830, Until Fri11/27/12 at 1657, Pain, Routine Given 11/27/2012 12:24 PM EDT 15 mg Given 11/27/2012 6:04 AM EDT 15 mg Given 11/27/2012 12:00 AM EDT 15 mg lactated ringers infusion 100 mL/hr, Intravenous, CONTINUOUS, Starting on Fri11/25/12 at 2100, Until Germania 11/26/12 at 0800 New Bag 11/26/2012 5:21 AM EDT 100 mL/hr 100 mL/hr Rate/Dose Verify 11/26/2012 5:00 AM EDT 100 mL/hr 100 mL/ hr New Bag 11/25/2012 8:45 PM EDT 100 mL/hr 100 mL/hr morphine 1 mg/mL FRICTION SAW OPERATOR 30 mL Intravenous, FRICTION SAW OPERATOR ONLY, Starting on Fri11/25/12 at 2100, Until Germania 11/26/12 at 0800 New Syringe/Cartridge 11/25/2012 8:45 PM EDT mL/hr OXYcodone-acetaminophen (ROXICET) 5-325 mg/5 mL oral solution 5-10 mL 5-10 mL, Oral, EVERY 4 HOURS PRN, Pain, Starting on Germania 11/26/12 at 0759, Until Germania 11/26/12 at 1858, Maximum dose of acetaminophen is 4000 mg from all sources in 24 hours. Given 11/26/2012 3:31 PM EDT 10 mLs Given 11/26/2012 10:22 AM EDT 10 mLs OXYcodone-acetaminophen (ROXICET) 5-325 mg/5 mL oral solution 5-10 mL 5-10 mL, Oral, EVERY 3 HOURS PRN, Pain, Starting on Fri11/26/12 at 1900, Until Fri11/27/12 at 1657, Maximum dose of acetaminophen is 4000 mg from all sources in 24 hours. Given 11/27/2012 12:24 PM EDT 10 mLs Given 11/27/2012 9:26 AM EDT 10 mLs Given 11/27/2012 6:25 AM EDT 10 mLs scopolamine (TRANSDERM-SCOP) 1.5 mg patch 1 patch 1 patch, Transdermal, EVERY 72 HOURS, First dose on Fri11/25/12 at 1800, Until Discontinued, Routine Given 11/25/2012 5:45 PM EDT 1 patch Left Ear scopolamine (TRANSDERM-SCOP) 1.5 mg patch 1 dose, Starting on Fri11/25/12 at 1731, Until Fri11/25/12 at 1745, MARIA ALEJANDRA FUNES: cabinet override sodium chloride 0.9 % flush 5 mL 5 mL, Intravenous, EVERY 12 HOURS, First dose on Fri11/25/12 at 2230, Until Discontinued Given 11/27/2012 10:30 AM EDT 5 mLs Given 11/26/2012 10:30 PM EDT 5 mLs Given 11/26/2012 10:30 AM EDT 5 mLs documented in this encounter Active and Recently Administered Medications Times are shown in EDT. Scheduled Medication Order 11/25/2012 11/26/2012 11/27/2012 scopolamine (TRANSDERM-SCOP) 1.5 mg patch 1 patch (CANCELED)(Linked Group 1) 1 patch, Transdermal, EVERY 72 HOURS, First dose on Fri11/25/12 at 1800, Until Discontinued, Routine 1745 (Given - Provider: Maria Alejandra Funes RN)1800 (Not Given - Provider: Cheryl Matos RN - Reason: See comment - Comment: given in Or) sodium chloride 0.9 % flush 5 mL (CANCELED) 5 mL, Intravenous, EVERY 12 HOURS, First dose on Fri11/25/12 at 2230, Until Discontinued 2230 (Given - Provider: Ryan B Gordon, RN) 1030 (Given - Provider: Kasandra Molina, RN)2230 (Given - Provider: Ryan Leyva, RN) 1030 (Given - Provider: Syeda Haque RN) Continuous Medication Order 11/25/2012 11/26/2012 11/27/2012 lactated ringers infusion (CANCELED) 100 mL/hr, Intravenous, CONTINUOUS, Starting on Fri11/25/12 at 2100, Until Germania 11/26/12 at 0800 2045 (New Bag - Provider: Cheryl Matos RN) 0500 (Rate/Dose Verify - Provider: Ryan Leyva, RN)0521 (New Bag - Provider: Ryan Leyva, RN)0800 (Stopped - Provider: Kasandra Molina RN) morphine 1 mg/mL FRICTION SAW OPERATOR 30 mL (CANCELED) Intravenous, FRICTION SAW OPERATOR ONLY, Starting on Fri11/25/12 at 2100, Until Germania 11/26/12 at 0800 2045 (New Syringe/Cartridge - Provider: Cheryl Matos RN) 0800 (Stopped - Provider: Kasandra Molina RN) PRN Medication Order 11/25/2012 11/26/2012 11/27/2012 BUpivacaine (PF) (MARCAINE) 0.25 % (2.5 mg/mL) injection (CANCELED) ONCE PRN, Starting on Fri11/25/12 at 1903, Until Fri11/25/12 at 2138, Intra-Operative (Intra-Procedure), Routine 1902 (Given - Provider: Sheridan Mosher MD - Comment: 12 ml injected) ceFAZolin (ANCEF) injection (CANCELED) ONCE PRN, Starting on Fri11/25/12 at 1819, Until Fri11/25/12 at 2138, Intra-Operative (Intra-Procedure), Routine 1818 (Given - Provider: Jayant Rodriguez CRNA) fentaNYL 50mcg/mL injection (CANCELED) 25-50 mcg, Intravenous, EVERY 5 MIN PRN, Starting on Fri11/25/12 at 202, Until Fri11/25/12 at 2138, Pain, for breakthrough pain, Hold for respiratory rate less than 10 per minute. Maximum dose: 250 mcg over one hour., PACU Recovery, Routine 2053 (Given - Provider: Cheryl Matos RN) ketorolac (TORADOL) injection 15 mg (CANCELED) 15 mg, Intravenous, EVERY 6 HOURS PRN, Starting on Fri11/26/12 at 0830, Until Fri11/27/12 at 1657, Pain, Routine 1132 (Given - Provider: Kasandra Molina RN)1744 (Given - Provider: Kasandra Molina RN) 0000 (Given - Provider: Ryan Leyva RN)0604 (Given - Provider: Ryan Leyva RN)1224 (Given - Provider: Syeda Haque, CHELO) OXYcodone-acetaminophen (ROXICET) 5-325 mg/5 mL oral solution 5-10 mL (CANCELED) 5-10 mL, Oral, EVERY 4 HOURS PRN, Pain, Starting on Fri11/26/12 at 0759, Until Fri11/26/12 at 1858, Maximum dose of acetaminophen is 4000 mg from all sources in 24 hours. 1022 (Given - Provider: Kasandra Molina RN)1531 (Given - Provider: Kasandra Molina RN) OXYcodone-acetaminophen (ROXICET) 5-325 mg/5 mL oral solution 5-10 mL 5-10 mL, Oral, EVERY 3 HOURS PRN, Pain, Starting on Fri11/26/12 at 1900, Until Fri11/27/12 at 1657, Maximum dose of acetaminophen is 4000 mg from all sources in 24 hours. 2100 (Given - Provider: Ryan Leyva RN) 0000 (Given - Provider: Ryan Leyva RN)0334 (Given - Provider: Ryan Leyva RN)0625 (Given - Provider: Ryan Leyva RN)0926 (Given - Provider: Syeda Haque, CHELO)1224 (Given - Provider: Syeda Haque RN) Linked Groups Order Group 1: scopolamine (TRANSDERM-SCOP) 1.5 mg patch 1 patch (CANCELED)Jump to med 1 patch, Transdermal, EVERY 72 HOURS, First dose on Fri11/25/12 at 1800, Until Discontinued, Routine And scopolamine (TRANSDERM SCOP) patch REMOVAL (CANCELED) Transdermal, EVERY 72 HOURS, First dose on Fri11/28/12 at 1800, Until Discontinued, Remove Scopolamine Patch documented in this encounter Care Teams Metrologist Relationship Specialty Start Date End Date Arely Arzola APRN [phone] [place] [address] PCP - General 11/23/12 09/30/17 documented as of this encounter
--- OUTSIDE RECORDS SUMMARY | 2024-06-12 13:44 | XMS_ITS | Encounter Summary ---
Author Organization [facility] [place] [address] Care Team Providers Care Heavy Equipment Sales Associate Name Role Phone DariuszArely carranza James PALMA Primary Care Provider [phone] Encounter Details Date Type Department Care Team (Latest Contact Info) Description 09/09/2017 2:40 PM EST - 09/09/2017 11:59 PM EST Hospital [place] [address] Reactive hypoglycemia Discharge Disposition: Home Social History Tobacco Use [...] Hospital [place] [address] [place] [address] 07/09/2024 8:30 AM EDT Appointment XRay at [address] [id number] [place] [address] 07/17/2024 8:00 AM EDT Procedure visit [place] [address] 08/26/2024 8:00 AM EST [place] [address] 08/27/2024 9:00 AM EST Clinical [place] [address] documented as of this encounter Procedures Procedure Name Priority Date/Time Associated Diagnosis Comments CORTISOL, SALIVA Routine 09/09/2017 11:1 7 PM EST Reactive hypoglycemia documented in this encounter Results * Cortisol, saliva (09/09/2017 11:17 PM EST) Bryan Saliva Midnight (JANUARY) <50 <100 ng/dL [facility] Comment: ADDITIONAL INFORMATION This test was developed and its performance characteristics determined by [facility] in a manner consistent with CLIA requirements. This test has not been cleared or approved by the U.S. Food and Drug Administration. Test Performed by: [facility] [address] [place] [address] Specimen of unknown material (specimen) 09/09/2017 11:17 PM EST 09/11/2017 3:05 PM EST Dinesh Garner MD LAB SEND OUT ORDERAB LES Performing Organization Address City/State/[facility] Co de Phone Number [facility] [place] [address] documented in this encounter Visit Diagnoses Diagnosis Reactive hypoglycemia Hypoglycemia, unspecified documented in this encounter Care Teams Heavy Equipment Sales Associate Relationship Specialty Start Date End Date Arely Arzola APRN [address], [place] [address] PCP - General 11/23/12 09/30/17 documented as of this encounter
--- OUTSIDE RECORDS SUMMARY | 2024-06-12 13:44 | XMS_ITS | Encounter Summary ---
Author Organization [facility] Address [facility] [place] [address] Care Team Providers Care Investment Associate Name Role Phone Laura Ross LOUIE Primary Care Provider [phone] Encounter Details Date Type Department Care Team (Late st Contact Info) Description 10/20/2017 1:00 PM EST - 10/20/2017 1:30 PM EST Surgery [place] [address] Sheridan Cassidy MD [facility] [place] [address] EGD WITH BIOPSY (WRVU 2.39) Social History [...] Sign Reading Time Taken Comments Blood Pressure 140/88 10/20/2017 12:22 PM EST Pulse 78 10/20/2017 12:22 PM EST Temperature - - Respiratory Rate 17 10/20/2017 12:22 PM EST Oxygen Saturation 98% 10/20/2017 12:22 PM EST Inhaled Oxygen Concentration - - Weight - - Height - - Body Mass Index - - documented in this encounter Discharge Instructions * Discharge Instructions* Jolanta Sevilla RN - 10/20/2017 2:33 PM EST Please call [phone] before 8pm Mon-Fri with problems, questions or concerns. If you call after 8pm or on weekends, call the Hospital at [phone] and ask to speak to the Radiology Clerk station engineer and the bonded strand operator will contact that person for you. UPPER GI ENDOSCOPY WHAT TO EXPECT AFTER [...] better as expected. Friday-Friday Same Day Endo [phone] 7a-8p Otherwise contact [phone] and ask to speak to the hooker off station engineer Follow-up care is a diaz part of [...] Units by mouth twice a week. 11/29/2017 ibuprofen (ADVIL;MOTRIN) 800 mg tablet 10/18/2010 11/26/2017 documented as of this encounter H&P Notes * Sheridan Cassidy MD - 10/20/2017 12:45 PM EST Patient Name: Mora Bolanos Patient Age: 42 y.o. Birthdate: 1975 Admit date: 10/20/2017 Attending Physician: Sheridan Cassidy MD 42 yo female with history of recurrent GERD after several failed fundoplications. Here for pre op EGD, Queen's follow up possible dilation. Patient Active Problem List Diagnosis Code ??? Gastroesophageal reflux K21.9 ??? Dyspepsia R10.13 ??? Disorder of female genital organ N94.9 ??? Endometriosis of other specified sites N80.8 ??? Nausea R11.0 No past medical history on file. Past Surgical History: Procedure Laterality Date ??? PRO LAP, ESOPHAGUS, OTHER PROC 11/25/2012 LAPAROSCOPIC REVISION OF GABRIELLA FUNDOPLASTY performed by [facility]idan [facility]idy MD [facility] ??? PRO UPPER GI ENDOSCOPY, BIOPSY 09/04/2012 EGD WITH BIOPSY performed by Didier Jones MD at [facility] ENDOSCOPY ??? PRO UPPER GI ENDOSCOPY, BIOPSY N/A 07/22/2016 UPPER GASTROINTESTINAL ENDOSCOPY,WITH BIOPSY SINGLE OR MULTIPLE performed by Sheridan Cassidy MD [facility] ENDOSCOPY ??? PRO UPPER GI ENDOSCOPY, DIAGNOSTIC 11/25/2012 ENDOSCOPY, UPPER GI, DIAGNOSTIC, WITH OR WITHOUT SPECIMENS performed by [facility] ??? PRO UPPER GI ENDOSCOPY, DIAGNOSTIC 07/18/2014 EGD, UPPER GI ENDOSCOPY performed by Sheridan Cassidy MD at [facility] ENDOSCOPY ??? UPPER GI ENDOSCOPY, EXAM 09/04/2012 UPPER GI ENDOSCOPY performed by Didier Jones MD at [facility] ENDOSCOPY No current facility-administered medications on file [...] and Neuro exams are grossly normal. ASA II MAL II documented in this encounter Plan of Treatment Upcoming Encounters Date Type Department Care Team (Late st Contact Info) Description 06/15/2024 3:00 PM EDT Hospital [place] [address] [place] [address] 07/09/2024 8:30 AM EDT Appointment XRay at [address] [address] [place] [address] 07/17/2024 8:00 AM EDT Procedure visit [place] [address] 08/26/2024 8:00 AM EST Office [place] [address] 08/27/2024 9:00 AM EST Clinical [place] [address] documented as of this encounter Procedures Procedure Name Priority Date/Time Associated Diagnosis Comments SURGICAL PATHOLOGY REPORT Routine 10/20/2017 2:18 PM EST SPECIMEN TO PATHOLOGY Routine 10/20/2017 2:18 PM EST EGD WITH BIOPSY (WRVU 2.39) 10/20/2017 2:00 PM EST GERD-pre bariatric surgery UPPER GI ENDOSCOPY Routine 10/20/2017 1: 39 PM EST documented in this encounter Results * Surgical Pathology Report (10/20/2017 2:18 PM EST) Final Diagnosis [id number] ? Location: 4T; 06; A The signing pathologist has (i) examined the relevant preparation(s) for the specimen(s) and (ii) rendered or confirmed the diagnosis(es). . 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 No goblet cell metaplasia is seen. Electronically signed by: ??Stefani Roberts MD Verified: ??10/23/2017 ?Pathologist Performed at: ??-[facility] Dept. of Pathology, [place], [place] CLINICAL INFORMATION Specimen Submitted: A - Esaphagus bx at Z-line Clinical History: History of Queen 's, followup biopsy Clinical Diagnosis: Same SPECIMEN PROCESSING A - Labeled/Fixativ e: Esophagus BX at Z line 35 cm, formalin. Quantity/Size: Multiple, ranging from 0.1-0.5 cm. Tissue Description: ??Soft, pink tissues . Sections/Proces sing: (T2) ??sns 10/23/2017 11:36 AM EST [facility] GI Biopsy 10/20/2017 2:18 PM EST 10/20/2017 2:18 PM EST Sheridan Cassidy MD PATHOLOGY/CYTOLOGY O PATRICIA Performing Organization Address City/[facility] Co de Phone Number [facility] [place] [address] * Specimen to Pathology (10/20/2017 2:18 PM EST) AP Specimen 10/20/2017 2:18 PM EST 10/20/2017 2:18 PM EST Narrative [facility] - 10/20/2017 2:18 PM EST Specimen requisition ordered. ??Separate Pathology report to follow Sheridan Cassidy MD PATHOLOGY/CYTOLOGY O PATRICIA Performing Organization Address [facility] Co de Phone Number [facility] [place] [address] * UPPER GI ENDOSCOPY (10/20/2017 1:39 PM EST) UPPER GI ENDOSCOPY [facility] Endoscopy ___ Procedure Date: 10/20/2017 1:39 PM ? Patient Name: Mora Bolanos ? Date of : 1975 ? Age: 42 ? Order #: [id number] ? Instrument Name: [id number] ? ___ Procedure: ? Upper GI endoscopy Indications: ? 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 Sheridan Cassidy MD, Eamon Porras, ? RN, Ange Leach ? Malina Colvin MD: ?Laura Ross Medicines: ? Fentanyl 250 micrograms IV, Midazolam ? 6 mg IV, Diphenhydramine 50 mg IV Complications: ? No immediate complications. Estimated ? blood loss: Minimal. ___ Procedure: ? Pre-Anesthesia Assessment: ? - [...] the physician, the nurse and the ? plastic process technician in the pre-procedure area ? in [...] the ? mouth, and advanced to the second ? part of duodenum. The patient ? tolerated the procedure well. The ? upper GI endoscopy was accomplished ? with ease. The patient tolerated the ? procedure well. ? Findings: ? There were esophageal mucosal changes secondary to ? 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 The maximum ? longitudinal extent of these mucosal changes was 1 cm ? in length. Mucosa was biopsied with a cold forceps ? for histology. One specimen bottle was sent to ? pathology. ? There appeared to be a snug fundoplication ? on retroflex view ? The examined duodenum was normal. ? Moderate Sedation: ? Moderate (conscious) sedation was administered by the ? endoscopy nurse and supervised by the endoscopist. ? The following parameters were monitored: oxygen ? saturation, heart rate, blood pressure, respiratory ? rate, EKG, adequacy of pulmonary ventilation, and ? response to care. Total physician intraservice time ? was 9 minutes. Impression: ?- Esophageal mucosal changes ? 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 ? Biopsied. ? - Normal examined duodenum. Procedure Code(s): ?? --- Professional --- ? 75369, Esophagogastroduode noscopy, ? flexible, transoral; with biopsy, ? single or multiple CPT copyright 2016 [employer]. All rights reserved. The codes documented in this report are preliminary and upon parallel computing software engineer review may be revised to meet current compliance requirements. Attending Participation: ? I was present and participated during the entire ? procedure, including non-diaz portions. I was present ? during the intraservice time as documented by the ? sedation RN ? I was present and participated during the entire ? procedure, including non-diaz portions. ? Sheridan Cassidy MD 10/20/2017 2:28:36 PM This report has been signed electronically. ____ Ange Malina Oreilly, Number of Addenda: 0 Note Initiated On: 10/20/2017 1:39 PM PROVATION 10/20/2017 1:39 PM EST Laura Ross APPAREL SALES ASSOCIATE GENERAL SURGICAL ORD ERABLES PROVATION documented in this encounter Visit Diagnoses Not on filedocumented in this encounter Administered Medications Inactive Administered Medications - up to 3 most recent administrations Medication Order MAR Action Action Date Dose Rate Site diphenhydrAMINE (BENADRYL) injection ONCE PRN, Starting on Fri10/20/17 at 1358, Until Fri10/20/17 at 1708, Intra-Operative (Intra-Procedure), Routine Given 10/20/2017 1:58 PM EST 25 mg Given 10/20/2017 1:55 PM EST 25 mg fentaNYL 50 mcg/mL multi-dose injection ONCE PRN, Starting on Fri10/20/17 at 1359, Until Fri10/20/17 at 1708, Intra-Operative (Intra-Procedure), Routine Given 10/20/2017 2:10 PM EST 50 mcg Given 10/20/2017 2:07 PM EST 50 mcg Given 10/20/2017 2:04 PM EST 50 mcg lactated Ringers infusion 100 mL/hr, Intravenous, CONTINUOUS, Starting on Fri10/20/17 at 1245, Until Fri10/20/17 at 1458, Endoscopy (Day of Procedure) New Bag 10/20/2017 12:33 PM EST 100 mL/hr 100 mL/hr midazolam (PF) (VERSED) 1 mg/mL multi-dose injection ONCE PRN, Starting on Fri10/20/17 at 1359, Until Fri10/20/17 at 1708, Intra-Operative (Intra-Procedure), Routine Given 10/20/2017 2:10 PM EST 1 mg Given 10/20/2017 2:07 PM EST 1 mg Given 10/20/2017 1:58 PM EST 1 mg documented in this encounter Active and Recently Administered Medications Times are shown in EST. Continuous Medication Order 10/18/2017 10/19/2017 10/20/2017 lactated Ringers infusion (CANCELED) 100 mL/hr, Intravenous, CONTINUOUS, Starting on Fri10/20/17 at 1245, Until Fri10/20/17 at 1458, Endoscopy (Day of Procedure) 1233 (New Bag - Prov ider: Lacey Borrego RN) PRN Medication Order 10/18/2017 10/19/2017 10/20/2017 diphenhydrAMINE (BENADRYL) injection (CANCELED) ONCE PRN, Starting on Fri10/20/17 at 1358, Until Fri10/20/17 at 1708, Intra-Operative (Intra-Procedure), Routine 1355 (Given - Provid er: Eamon Porras RN)1358 (Given - Provider: Eamon Porras RN) fentaNYL 50 mcg/mL multi-dose injection (CANCELED) ONCE PRN, Starting on Fri10/20/17 at 1359, Until Fri10/20/17 at 1708, Intra-Operative (Intra-Procedure), Routine 1355 (Given - Provid er: Eamon Porras RN)1359 (Given - Provider: Eamon Porras RN)1404 (Given - Provider: Eamon Porras RN)1407 (Given - Provider: Eamon Porras RN)1410 (Given - Provider: Eamon Porras RN) midazolam (PF) (VERSED) 1 mg/mL multi-dose injection (CANCELED) ONCE PRN, Starting on Fri10/20/17 at 1359, Until Fri10/20/17 at 1708, Intra-Operative (Intra-Procedure), Routine 1355 (Given - Provid er: Eamon Porras RN)1358 (Given - Provider: Eamon Porras RN)1407 (Given - Provider: Eamon Porras RN)1410 (Given - Provider: Eamon Porras RN) documented in this encounter Care Teams Investment Associate Relationship Specialty Start Date End Date Laura Ross APRN [address] [place] [id number] PCP - General Family Medicine 10/01/17 08/21/22 documented as of this encounter
--- OUTSIDE RECORDS SUMMARY | 2024-06-12 13:44 | XMS_ITS | Encounter Summary ---
[facility] [place] [address] Care Team Providers Care Insurance Premium Auditor Name Role Phone Arely Arzola APRN Primary Care Provider [phone] Encounter Details Date Type Department Care Team (Late st Contact Info) Description 07/22/2014 6:00 PM EST Office Visit [place] [address] Rigoberto Reid MD [facility] [place] [address] Esophageal reflux Discharge Disposition: Home Social History Tobacco [...] as of this encounter Progress Notes * Rigoberto Reid MD - 07/26/2014 7:45 AM EST FQSAK-[id number]-CHMM WIRELESS pH CAPSULE STUDY AFTER UPPER ENDOSCOPY Rachkayleigh Mora Kanika Age: Female, 39 y.o., 1975 PCP: Arely Arzola LONG TERM CARE ADMINISTRATOR: NONE STUDY DATES: 07/18/14 to 07/20/14 INTERPRETATION DATE: 07/25/14 PROVIDER: Rigober[place] ([id number]) INDICATION Reflux symptoms despite prior anti-reflux surgery. [...] 0.9% Percent of Supine Recording Time: 0% Ysycr-Myukc-Bkse (Total) Fraction of Time with pH Less Than 4%: 0.8% Calculated DeMeester Score (normal values are up to 14.72) Day One Calculated DeMeester Score: 4.5 Day Two Calculated DeMeester Score: 3.5 Qokqk-Risel-Qjot DeMeester Score (Total): 4 Day One Symptoms Association Probability (SAP) for Heartburn: 74% Regurgitation: 16% Chest pain: 20% Day Two SAP for Heartburn: 78% Regurgitation: 36% Chest pain: 41% Nwcjh-Pdxio-Ywcy SAP for Heartburn: 89% Regurgitation: 48% Chest [...] than 6.3% Supine = less than 1.2%. ADDENDUM SAP expresses the likelihood that a specific symptom, i.e., heartburn, regurgitation, chest pain, is associated with acid reflux. By convention, SAP values greater than 95% are positive. Rigoberto Reid MD, PhD precision optics technician, [facility], [employer] Section [place] [address] V: [phone] F: [phone] BEL/bcj EC/CC: PCP - fax copy 07/25/14 Sheridan Cassidy MD - staff msg copy 07/25/14 Danni Dominguez - staff msg copy 07/25/14 documented in this encounter Plan of Treatment Upcoming Encounters Date Type Department Care Team (Late st Contact Info) Description 06/15/2024 3:00 PM EDT Hospital [place] [address] Alena Pizarro [place] [address] 07/09/2024 8:30 AM EDT Appointment XRay at [address] [address] [place] [address] 07/17/2024 8:00 AM EDT Procedure [place] [address] 08/26/2024 8:00 AM EST Office [place] [address] 08/27/2024 9:00 AM EST Clinical Support [place] [address] documented as of this encounter Visit Diagnoses Diagnosis Esophageal reflux documented in this encounter Care Teams Insurance Premium Auditor Relationship Specialty Start Date End Date Arely Arzola APRN [phone] [id number] PCP - General 11/23/12 09/30/17 documented as of this encounter
--- OUTSIDE RECORDS SUMMARY | 2024-06-12 13:44 | XMS_ITS | Encounter Summary ---
Author Organization [facility] [place] [address] Care Team Providers Care Stockbroking Dealer Name Role Phone Arely Arzola LOUIE Primary Care Provider [phone] Reason for Referral * Diagnostic Test (Routine) - Closed Specialty Diagnoses / Procedures Referred By Martha broussard Referred To Contact Radiology Diagnoses Gastroesophageal reflux disease, esophagitis presence not specified Procedures XR Fluoro Barium Swallow Ange Cordon MD [facility] [place] [address] [facility] Rad Xray [address] [place] [address] [place] [address] Referral ID Status Reason Start Date Expiration Date V isits Requested Visits Authorized [id number] Closed Specialty Service Requested 09/03/2017 09/03/2018 1 1 Reason for Visit * Reason Comments Follow-up Encounter Details Date Type Department Care Team (Late st Contact Info) Description 09/03/2017 11:30 AM EST Office Visit General Surgery at [facility] [place] [address] Sheridan Cassidy MD [facility] [place] [address] Weight gain (Primary Dx); Gastroesophageal reflux disease, esophagitis presence not specified Social History Tobacco Use Types Packs/Day Years [...] as of this encounter Progress Notes * Ange Cordon MD - 09/03/2017 11:30 AM EST Mora Bolanos is a 42 y.o. female well know to Dr. Cassidy who returns to clinic for follow-up regarding chronic GERD and abdominal pain. She has had GERD for nearly 2 decades and initially underwent laparoscopic Gabriella fundoplication on September 2010 after which she was completely symptoms free for a period of time. She then moved to [place] and at some point experienced food impaction for whichshe underwent emergent take-down of her previous wrap. Her GERD symptoms recurred thereafter and she had a redo Gabriella fundoplication in November 2012. Unfortunately, she has had persistent epigastric pain, post-prandial bloat and nausea, dysphagia and symptoms of heartburn since. She was last seen byDr. Cassidy in August 2016 at which time she was placed on an erythromycin trial, which she states did not alleviate her symptoms. Currently, her primary GERD symptoms including sub-sternal discomfortafter eating, early satiety, post-prandial nausea and gas bloat, and frequent clearing of her throat with hoarseness. She also has developed a generalized abdominal feeling of tearing that is mild and waxes and wanes over the last 6 months or so. She continues to gain weight, 27lbs in the last year, and currently weights 193lbs despite being stable at 146lbs for many years prior. Over the summer she participatedin a strict medically supervised weight loss with an GLAZE WIPER in [place] for 3 months and still gained weight. 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 She continues to be Vitamin D deficient despite 50,000U weekly supplementation. She is very discouraged by all of this. She has not had any further work-up since last year. This includes: 07/2016 - HRM - Reduced LES pressure, nl IRP; normal esophageal motility, no HH, nl DCI. 07/2016 - EGD - Irregular Z line (BX = Queen's nondysplastic ), nl duodenum ?? 07/2014 - HRM - Hypotensive LES, nl LES relaxation, normal esophageal motility 07/2014 - EGD - Irregular Z line, nl duodenum, smith pH capsule deployed (no biopsies) 07/2014 - pH 48hr - No pathologic reflux 07/2014 - Barium - Intact fundo and no GERD seen ?? 11/2012 - OR - Redo Gabriella ?? 08/2012 - HRM - Nl LES resting pressuer, elevated LES residual pressure, nl esophageal motility 08/2012 - EGD - Esophageal mucosal changes suspicious for short-segment Queen's (BX = no metaplasia) ) Appearance of partial fundoplication 08/2012 - Barium - Intact fundo at diaphragm, intermittently arises above level of diaphragm ?? 09/2010 - EGD - Biopsies: Duodenal mucosa nl; gastric antrum with nonsp reactive gastropathy ?? Patient Active Problem List Diagnosis Code ??? Gastroesophageal reflux K21.9 ??? Dyspepsia R10.13 ?? Past medical history: Patient Active Problem List Diagnosis Code ??? Gastroesophageal reflux K21.9 ??? Dyspepsia R10.13 ??? Disorder of female genital organ N94.9 ??? Endometriosis of other specified sites N80.8 ??? Nausea R11.0 Past Surgical History: Procedure Laterality Date ??? PRO LAP, ESOPHAGUS, OTHER PROC 11/25/2012 LAPAROSCOPIC REVISION OF GABRIELLA FUNDOPLASTY performed by Sheridan Cassidy MD at [facility] MAIN OR ??? PRO UPPER GI ENDOSCOPY, BIOPSY 09/04/2012 EGD WITH BIOPSY performed by Didier Jones MD at [facility] ENDOSCOPY ??? PRO UPPER GI ENDOSCOPY, BIOPSY N/A 07/22/2016 UPPER GASTROINTESTINAL ENDOSCOPY,WITH BIOPSY SINGLE OR MULTIPLE performed by Sheridan Cassidy MD [facility] ENDOSCOPY ??? PRO UPPER GI ENDOSCOPY, DIAGNOSTIC 11/25/2012 ENDOSCOPY, UPPER GI, DIAGNOSTIC, WITH OR WITHOUT SPECIMENS [facility] ??? PRO UPPER GI ENDOSCOPY, DIAGNOSTIC 07/18/2014 EGD, UPPER GI ENDOSCOPY performed by Sheridan Cassidy MD at [facility] ENDOSCOPY ??? UPPER GI ENDOSCOPY, EXAM 09/04/2012 UPPER GI ENDOSCOPY performed by Didier Jones MD at [facility] ENDOSCOPY Medications: Current Outpatient Prescriptions on File Prior to Visit Medication Sig Dispense Refill ??? metFORMIN (GLUCOPHAGE-XR) 500 mg Tablet Sustained Release 24 hr Take 500 mg by mouth nightly. ??? multivitamin (THERAGRAN) Tablet Take 1 tablet by mouth daily. ??? cholecalciferol, Vitamin D3, 50,000 unit Capsule Take 50,000 Units by mouth twice a week. ??? acarbose (PRECOSE) 25 mg Tablet Take 1 tablet by mouth daily. 30 tablet 11 ??? epiNEPHrine 0.15 mg/0.15 mL Cmpk combo pack Inject into the muscle as needed. ??? ibuprofen (ADVIL;MOTRIN) 800 mg tablet (Patient not taking: No sig reported) No current facility-administered medications on file prior to visit. Allergies: Onion; Bupropion; Bupropion hcl; and Metoclopramide hcl Family History: No family history on file. Social History: She reports that she quit smoking about 13 years ago. Her smoking use included Cigarettes. She smoked 1.00 pack per day. She has never used smokeless tobacco. She reports that she does not drink alcohol or use illicit drugs. Review of systems: Review of systems is negative for any unexplained weight loss or weight gain. She denies any cough,chest pain or shortness on breath on exertion. She has no fevers, chills or night sweats. She denies headaches, dizziness, weakness, numbness or ataxia. Bowel and bladder elimination is normal. All other system reviews are negative. On physical examination, this is a well appearing female. There is no scleral or skin icterus. Mucous membranes are moist. pupils reactive. Her lungs are clear to auscultation. Heart is regular, rate, and rhythm and without murmurs. Her abdomen is nontender and without palpable masses. There are nogroin hernias. Her extremity and neurological exam are grossly normal. Impression. Symptomatic gastroesophageal reflux as well as ongoing weight gain to the point that she is now morbidly obese with a BMI of 37 kg/m2. We discussed her GERD symptoms as well as her prior endoscopy and manometry findings. She continues to have reflux despite her redo-Gabriella and medical therapy. To further assess her anatomy and functionality, we will obtain an UGI barium swallow study.She will also need and EGD in the future for Queen's surveillance. We also discussed the possibility of a terrie-en-y gastric bypass as both treatment for her recalcitrant GERD and morbid obesity. If her Endocrine work-up does not reveal any other causes of weight gain, it may be her best option, as her weight is likely contributing to her recurrent GERD. She is interested in exploring this further and plans to attend the next introductory meeting. I provided her with an information pamphlet. I have also added a PTH, CBC and CMP with calcium to her labs to assess for possible hyperparathyroidism as contributing to her depression, generalized abdominal pain, osteopenia/osteoporosis and vitamin D deficiency. We will set her up with an appointment with the dietitians, and she will work on acquiring health insurance. Once these and the results of her above studies are complete, we will have her return to clinic to discuss our findings and how we proceed from here. She is hopeful and eager to proceed. Ange Oreilly MD 09/03/2017 * Sheridan Cassidy MD - 09/03/2017 11:30 AM EST I have seen the patient and reviewed Dr. Malina Oerilly's above history and I agree with the detailsas written. The assessment and plan were formulated in discussion with me and I agree with them as documented. documented in this encounter Plan of Treatment Upcoming Encounters Date Type Department Care Team (Late st Contact Info) Description 06/15/2024 3:00 PM EDT Hospital [place] [id number] Calvino, Alena M, [place] [address] 07/09/2024 8:30 AM EDT Appointment XRay at [address] [address] Alena Pizarro, [place] [address] 07/17/2024 8:00 AM EDT Procedure [place] [address] 08/26/2024 8:00 AM EST Office [place] [address] 08/27/2024 9:00 AM EST Clinical [place] [address] documented as of this encounter Results * XR Fluoro Barium Swallow (09/19/2017 10:05 AM EST) Anatomical Region Laterality Modality N/A Radio Fluoroscop y Impressions 09/19/2017 10:25 AM EST 1. ??Intact Gabriella fundoplication wrap. 2. ??Normal esophageal motility. Preliminary report signed by: Kalpana Wright at 09/19/2017 10:21 AM I have personally reviewed the image(s) and the residents interpretation and agree with the findings, Dennis Hall at 09/19/2017 10:25 AM Narrative 09/19/2017 10:25 AM EST EXAMINATION: XR FLUORO BARIUM SWALLOW CLINICAL HISTORY: GERD, h/o slipped Gabriella TECHNIQUE: Single contrast esophagram was performed. Fluoroscopic spot films were obtained. A 13 mm barium tablet was given. Fluoro time: 1.77 minutes COMPARISON: Barium swallow 07/26/2014 FINDINGS: There is expected tapering of the distal esophagus and mass effect upon the gastric cardia consistent with history of Gabriella fundoplication. The esophagus is normal in course and caliber, and distends well. ?? The Gabriella fundoplication wrap is intact below the diaphragm. Esophageal peristalsis is normal. There is mild esophagoesophageal reflux from the distal esophagus above the fundoplication wrap into the mid thoracic esophagus. No gastroesophageal reflux was noted spontaneously or elicited with provocative maneuvers. The 13 mm barium tablet rapidly passed through the esophagus and Gabriella fundoplication wrap into the stomach without delay. Procedure Note Dennis Hall MD - 09/19/2017 EXAMINATION: XR FLUORO BARIUM SWALLOW CLINICAL HISTORY: GERD, h/o slipped Gabriella TECHNIQUE: Single contrast esophagram was performed. Fluoroscopic spot films wereobtained. A 13 mm barium tablet was given. Fluoro time: 1.77 minutes COMPARISON: Barium swallow 07/26/2014 FINDINGS: There is expected tapering of the distal esophagus and mass effect uponthe gastric cardia consistent with history of Gabriella fundoplication. Theesophagus is normal in course and caliber, and distends well. The Gabriella fundoplication wrap is intact below the diaphragm. Esophageal peristalsis is normal. There is mild esophagoesophageal reflux from the distal esophagus abovethe fundoplication wrap into the mid thoracic esophagus. No gastroesophageal reflux was noted spontaneously or elicited withprovocative maneuvers. The 13 mm barium tablet rapidly passed through the esophagus and Gabriella fundoplication wrap into the stomach without delay. IMPRESSION 1. Intact Gabriella fundoplication wrap. 2. Normal esophageal motility. Preliminary report signed by: Kalpana Wright at 09/19/2017 10:21 AM I have personally reviewed the image(s) and the residents interpretationand agree with the findings, Dennis Hall at 09/19/2017 10:25 AM 10:25 AM Ange Oreilly MD IMG FLUORO OR DERABLES * Calcium (09/03/2017 4:22 PM EST) Calcium 9.3 8.5 - 10.5 mg/dL [facility] Blood specimen (specimen) 09/03/2017 4:22 PM EST 09/03/2017 4:29 PM EST Narrative Resulting Agency Comment Spec In Lab Ange Oreilly MD CHEMISTRY ORD ERABLES Performing Organization Address City/[facility]/ZIP Co de Phone Number [facility] [place] [address] * PTH (09/03/2017 4:22 PM EST) Parathyroid Hormone 37 15 - 65 pg/mL [facility] Blood specimen (specimen) 09/03/2017 4:22 PM EST 09/03/2017 4:29 PM EST Narrative Resulting Agency Comment Spec In Lab Ange Oreilly MD CHEMISTRY ORD ERABLES Performing Organization Address [facility] de Phone Number [facility] [place] [address] * Comprehensive metabolic panel (non-fasting) (09/03/2017 4:22 PM EST) Glucose 101 65 - 199 mg/dL [facility] Comment:Diabetes: >=200 mg/d L plus symptoms Blood Urea Nitrogen 9 8 - 18 mg/dL [facility] Creatinine 0.80 0.70 - 1.20 mg/dL [facility] Sodium 144 135 - 145 mmol/L [facility] Potassium 4.0 3.5 - 5.0 mmol/L [facility] Comment: Please note: ??Patients with WBC >100,000 may have falsely elevated Potassium levels. ??For accurate Potassium quantification in these patients send serum separator tube (gold top) for subsequent determinations. ??Contact the Clinical Chemistry Laboratory if there are any questions. Chloride 105 98 - 107 mmol/L [facility] Carbon Dioxide 24 22 - 31 mmol/L [facility] Anion Gap 15 5 - 15 mmol/L [facility] Calcium 9.3 8.5 - 10.5 mg/dL [facility] Protein, Total 7.4 6.1 - 8.0 gm/dL [facility] Albumin 4.3 3.2 - 5.2 gm/dL [facility] Aspartate Aminotransferase 23 0 - 30 unit/L [facility] Alanine Aminotransferase 26 0 - 30 unit/L [facility] Alkaline Phosphatase 83 40 - 104 unit/L [facility] Bilirubin, Total 0.2 0.2 - 1.3 mg/dL [facility] Est Glomerular Filtration Rate >60 >=60 [facility] Comment: The reported eGFR should be multiplied by 1.2 for patients. The MDRD is not an appropriate measure of renal function for patients with body mass extremes or in patients with acute kidney failure. http://[employer]/DHnkdep http://[employer]/DHMCnkf Blood specimen (specimen) 09/03/2017 4:22 PM EST 09/03/2017 4:29 PM EST Narrative Resulting Agency Comment Spec In Lab Ange Oreilly MD CHEMISTRY ORD ERABLES [facility] [place] [phone] documented in this encounter Visit Diagnoses Diagnosis Weight gain- Primary Abnormal weight gain Gastroesophageal reflux disease, esophagitis presence not specified Gastroesophageal reflux disease, esophagitis presence not specified documented in this encounter Care Teams Stockbroking Dealer Relationship Specialty Start Date End Date Arely Arzola APRN [address] [place] [id number] PCP - General 11/23/12 09/30/17 documented as of this encounter
--- OUTSIDE RECORDS SUMMARY | 2024-06-12 13:44 | XMS_ITS | Encounter Summary ---
Author Organization [facility] Address [facility] [place] [address] Care Team Providers Care Jewelry Inspector Name Role Phone Arely Arzola APRN Primary Care Provider [phone] Reason for Visit * Reason Comments Follow-up Encounter Details Date Type Department Care Team (Latest Contact Info) Description 08/20/2016 12:00 PM EST Office Visit [place] [address] Sheridan Cassidy MD [facility] [place] [address] Gastroesophageal reflux disease without esophagitis Social History Tobacco Use Types Packs/Day Years [...] - Inhaled Oxygen Concentration - - Weight 85.1 kg (187 lb 9.8 oz) 08/20/2016 12:32 PM EST Height - - Body Mass Index 35.45 11/25/2012 3:37 PM EDT documented in this encounter Progress Notes * Corazon Martin MD - 08/20/2016 12:00 PM EST Mora Bolanos is a 41 y.o. female is well known to Dr. Cassidy since her Magdaleno fundoplication for GERD over 15years ago. She felt quite well after her initial operation, then unfortunately, developed a slipped Magdaleno after she had moved to [place]. From her description, she became quite sick, with partial obstruction in the wrap, and a food bolus getting stuck, and an intense hospital course. She underwent urgent laparoscopic takedown of the Magdaleno fundiplication in [place], [place] and immediately experienced recurrent GERD symptoms and resumed PPI therapy. She then went on to be evaluated by Dr. Cassidy and underwent a redo laparoscopic Magdaleno fundoplication 11/2012. She endorses today that since then, she still has not felt right. She experiences early satiety, constant nausea, dramatic gasbloat, and pain that knocks me right out and puts me to the floor. She claims that she is not able to eat more than two crackers and I can't eat anymore because I bloat up like I'm out to here.She denies food getting stuck, regurgitation, shortness of breath. Her pain is stimulated by eatingor physical activity such as running. Her pain is sharp 8/10 in the epigastric / subxiphoid region,and does not radiate. She is very unhappy with her present condition. Patient Active Problem List Diagnosis Code ??? Gastroesophageal reflux K21.9 ??? Dyspepsia R10.13 Workup 07/2016 - HRM - Reduced LES pressure, nl IRP; normal esophageal motility, no HH, nl DCI. 07/2016 - EGD - Irregular Z line (BX = Queen's nondysplastic ), nl duodenum 07/2014 - HRM - Hypotensive LES, nl LES relaxation, normal esophageal motility 07/2014 - EGD - Irregular Z line, nl duodenum, smith pH capsule deployed (no biopsies) 07/2014 - pH 48hr - no pathologic reflux 07/2014 - Barium - Intact fundo and no GERD seen 11/2012 - OR - redo Magdaleno 08/2012 - HRM - Nl LES resting pressuer, elevated LES residual pressure, nl esophageal motility 08/2012 - EGD - Esophageal mucosal changes suspicious for short-segment Queen's (BX = no metaplasia) ) Appearance of partial fundoplication 08/2012 - Barium - Intact fundo at diaphragm, intermittently arises above level of diaphragm 09/2010 - EGD - Biopsies: Duodenal mucosa nl; gastric antrum with nonsp reactive gastropathy Mora Kanika Bolanos is a 41 y.o. female who seems to have subacute symptoms related to the redo Magdaleno fundoplication. We discussed her treatment options of recurrent GERD with PPI therapy or with redo Magdaleno, which does not prove as effective as an anti-reflux procedure after second redo attempt. 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 She was informed that regardless of her choice to reinitiated PPI therapy or consider eventual redo Magdaleno, she would need to be under lifelong Queen's surveillance for progression to esophageal cancer. Plan for Erythromycin trial for improvement of antegrade bowel function, gastric emptying, and hopefully improvement with gas bloat. Patient was seen and evaluated with Dr. Cassidy. * Sheridan Cassidy MD - 08/20/2016 12:00 PM EST I have seen the patient and reviewed Dr. Martin's above history and I agree with the details as written. The assessment and plan were formulated in discussion with me and I agree with them as documented. Try Erythromycin to see if gastric emptying and bloat improves. documented in this encounter Plan of Treatment Upcoming Encounters Date Type Department Care Team (Late st Contact Info) Description 06/15/2024 3:00 PM EDT Hospital [place] [address] [place] [address] 07/09/2024 8:30 AM EDT Appointment XRay at [address] [address] [place] [address] 07/17/2024 8:00 AM EDT Procedure visit [place] [address] 08/26/2024 8:00 AM EST Office Visit [place] [address] 08/27/2024 9:00 AM EST Clinical Support [place] [address] documented as of this encounter Visit Diagnoses Diagnosis Gastroesophageal reflux disease without esophagitis Esophageal reflux documented in this encounter Care Teams Jewelry Inspector Relationship Specialty Start Date End Date Arely Arzola APRN [address] [place] [id number] PCP - General 11/23/12 09/30/17 documented as of this encounter
--- OUTSIDE RECORDS SUMMARY | 2024-06-12 13:44 | XMS_ITS | Encounter Summary ---
Author Organization [facility] [place] [id number] Care Team Providers Care Retail Customer Service Representative Name Role Phone Arely Arzola APRN Primary Care Provider [phone] Encounter Details Date Type Department Care Team (Latest Contact Info) Description 08/06/2016 8:00 PM EST Tech Visit [place] [address] Rigoberto Reid MD [facility] [place] [address] Gastroesophageal reflux disease, esophagitis presence not specified [...] Progress Notes * Rigoberto Reid MD - 08/06/2016 8:00 PM EST HIGH-RESOLUTION ESOPHAGEAL MANOMETRY Mora Bolanos [address] [place] [id number] : 1975 STUDY DATE: 08-06-2016 PROVIDER: Rigoberto [place], [place] ([id number]) INDICATION GERD; history of prior Magdaleno fundoplication with revision METHODS Stationary esophageal manometry was performed with the ManoScan ESO version 3.0 in a supervised setting after verbal consent and after topical anesthesia to the nares. This system uses 36 individual circumferential solid state sensors spaced 1 cm apart. The outer diameter of the probe is 4.2 mm. Length, resting pressure, pressure inversion point (PIP), and relaxation of the lower esophageal sphincter (LES) was measured. The high pressure zone of the upper esophageal sphincter (UES) was measured. Water swallows were provided after a 6-kh-2-minute accommodation period to assess LES function andfunction of the esophageal body. FINDINGS LES (lower esophageal sphincter) Distal border of LES identified at 43.3 cm. Proximal border of LES identified at 40.1 cm. Hiatal hernia present? No Basal pressure respiratory mean pressure 11.6 mmHg (normal = 15-34 mmHg). Residual mean pressure (integrated relaxation pressure - IRP) 4.0 mmHg (normal = <15 mmHg). BODY OF ESOPHAGUS Water Swallows: 10. Failed: 10%. Transmitted (peristaltic): 90%. Panesophageal pressurization: 0% Premature: 0% Rapid: 0% With large breaks: 40%. With small breaks: 30%. DCI (distal contractile integral): 559 mmHg-cm-s (normal is 450 to 5000 mmHg-cm-s). Contractile front velocity: 1.8 cm/s (normal is <9.0 cm/s). Intrabolus pressure (average maximum): 15 mmHg (normal is <17.0 mmHg). Distal latency: 11 UES (upper esophageal sphincter) Distal border of UES identified at 19.8 cm and extended to 17.4 cm. UES basal pressure 117 mmHg (normal = 34-104 mmHg). Residual pressure 2.9 mmHg (normal = <12 mmHg). IMPRESSION 1. Reduced LES resting pressure. 2. Normal LES [...] integral). This is a measure of contractile vigor. Rigoberto Reid, PhD, MD ear pull machine operator, [employer] Chief, Section of Gastroenterology and Hepatology [facility] [place] [address] V: [phone] F: [phone] CC/EC: PCP documented in this encounter Plan of Treatment Upcoming Encounters Date Type Department Care Team (Late st Contact Info) Description 06/15/2024 3:00 PM EDT Hospital [place] [address] [place] [address] 07/09/2024 8:30 AM EDT Appointment XRay at [address] [address] [place] [address] 07/17/2024 8:00 AM EDT Procedure [place] [address] 08/26/2024 8:00 AM EST Office [place] [address] 08/27/2024 9:00 AM EST Clinical [place] [address] documented as of this encounter Visit Diagnoses Diagnosis Gastroesophageal reflux disease, esophagitis presence not specified documented in this encounter Care Teams Retail Customer Service Representative Relationship Specialty Start Date End Date Arely Arzola APRN [facility] [address] [address] PCP - General 11/23/12 09/30/17 documented as of this encounter
--- OUTSIDE RECORDS SUMMARY | 2024-06-12 13:44 | XMS_ITS | Encounter Summary ---
Author Organization [facility] [place] [address] Care Team Providers Care Can Stacker Name Role Phone Arely Arzola LOUIE Primary Care Provider [phone] Encounter Details Date Type Department Care Team (Late st Contact Info) Description 05/26/2014 Orders Only [place] [phone] Sheridan Cassidy MD [facility] [place] [address] Esophageal reflux Social History Tobacco Use Types Packs/Day Years [...] EDT Hospital [place] [phone] Alena Pizarro APRN [facility] [place] [address] 07/09/2024 8:30 AM EDT Appointment XRay at [address] [phone] [place] [address] 07/17/2024 8:00 AM EDT Procedure visit [place] [address] 08/26/2024 8:00 AM EST Office [place] [address] 08/27/2024 9:00 AM EST Clinical [place] [address] documented as of this encounter Results * XR Fluoro Barium swallow (07/26/2014 9:56 AM EST) Anatomical Region Laterality Modality N/A Radiographic Radha ging 07/26/2014 9:56 AM EST Narrative 07/26/2014 10:40 AM EST Examination BARIUM SWALLOW Clinical History GERD s/p anjel fundoplication 11/25/2012. The patient reported epigastric pain with eating. ?? Comparison Barium swallowing study from September 04, 2012. Technique Barium swallow was performed following the administration of effervescent agent. Images from Intermittent fluoroscopy were acquired. A 13 mm barium tablet was also administered. Fluoro time: ??2 minutes 39 second. ? Finding Normal esophagus without obstruction or filling defects. ??The motility is normal with prompt clearance of contrast from the esophagus to the stomach. The wrapped segment of the distal esophagus is normally tapered. The gastroesophageal junction and the fundoplication wrap is completely below the diaphragm. No hernia, reflux or contrast leak seen. No holdup of contrast or pill. ?? Impression ? 1. Intact fundoplication wrap. ? 2. No gastroesophageal reflux seen. Procedure Note Bindu Ramires MD - 07/26/2014 Examination BARIUM SWALLOW Clinical History GERD s/p anjel fundoplication 11/25/2012. The patient reported epigastricpain with eating. Comparison Barium swallowing study from September 04, 2012. Technique Barium swallow was performed following the administration of effervescent agent. Images from Intermittent fluoroscopy were acquired. A 13 mm barium tablet was also administered. Fluoro time: 2 minutes 39 second. Finding Normal esophagus without obstruction or filling defects. The motility is normal with prompt clearance of contrast from the esophagus to thestomach. The wrapped segment of the distal esophagus is normally tapered. The gastroesophageal junction and the fundoplication wrap is completely belowthe diaphragm. No hernia, reflux or contrast leak seen. No holdup of contrastor pill. Impression 1. Intact fundoplication wrap. 2. No gastroesophageal reflux seen. Sheridan Cassidy MD IMG FLUORO ORDERABLE S documented in this encounter Visit Diagnoses Diagnosis Esophageal reflux Esophageal reflux documented in this encounter Care Teams Can Stacker Relationship Specialty Start Date End Date Arely Arzola, SUPERVISOR PAINTING DEPARTMENT [address] [place] [address] PCP - General 11/23/12 09/30/17 documented as of this encounter
--- OUTSIDE RECORDS SUMMARY | 2024-06-12 13:44 | XMS_ITS | Encounter Summary ---
Author Organization [facility] [place] [address] Care Team Providers Care Critical Care Cns Name Role Phone Arely Arzola LOUIE Primary Care Provider [phone] Reason for Visit * Consultation (Routine) - Closed Specialty Diagnoses / Procedures Referred By Martha broussard Referred To Contact Endocrinology Diagnoses wt gain, hairloss, cold intolerance, w/ normal thyroid labs, surgical menopause, gastroparesis Deedee Inman PA [address] [place] [address] [facility] Endocrinology [address] [place] [phone] Referral ID Status Reason Start Date Expiration Date V isits Requested Visits Authorized [id number] Closed Consult, [facility] 2017 2018 1 1 Encounter Details Date Type Department Care Team (Late st Contact Info) Description 09/03/2017 1:30 PM EST Office [place] [address] Dinesh Garner MD [facility] [place] [address] Weight gain; Reactive hypoglycemia; Sweating abnormality Social History Tobacco Use Types Packs/Day Years [...] Sign Reading Time Taken Comments Blood Pressure 134/88 09/03/2017 1:30 PM EST Pulse 100 09/03/2017 1:30 PM EST Temperature - - Respiratory Rate - - Oxygen Saturation - - Inhaled Oxygen Concentration - - Weight 89.6 kg (197 lb 9.6 oz) 09/03/2017 1:30 P M EST Height 154.9 cm (5' 1) 09/03/2017 1:30 PM EST Body Mass Index 37.34 09/03/2017 1:30 PM EST documented in this encounter Progress Notes * Dinesh Garner MD - 09/03/2017 1:30 PM EST Referred (from [place]!) for fatigue and inability to lose weight Over the last two years, weight was increasing but it accelerated in the last year. Was 140 lbs 3 years ago, now 193 (30 in elast year). Has tried exercise and diet programs and cannot lose, stillgains. Started metformin - no weight loss. Had blackout problems which have improved on metformin. Has had low vit D - uses the 50 K supplement every 3 days, still low vit D. No diarrhea or constipation, some upper abdominal pain. Had a alicia fundoplication here7 years agoand then a re-do 3 years ago. Has some low sugar episodes- will black out if she does not eat regularly (every 2 h- but sleeps 5 h) Hysterectomy at age 20- left one ovary (has a large ovarian cyst); for endometriosis. Had two children before. No history of GD. 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 Bolanos has gained 50 pounds in the last 3 years. I told her that the only endocrine diagnoses that cause this are Seymour's syndrome diagnoses. We will check her midnight salivary cortisols ??2. I will also check her thyroid state primarily for the problem of fatigue but it's unlikely that there is significant hypothyroidism behind this weight gain. She has no other stigmata of hypothyroidism. She has had a Magdaleno fundoplication and describes blackouts and problems with going without eating frequently. It is possible that she has reactive hypoglycemia due to this operation and that relief from those symptoms will decrease her eating. Therefore I started her on acarbose 25 mg per day and told her we would try this for one month to see if it diminished her sense of passing out, as well as her need to eat frequently. I went over the concept of body metabolic rate declines as weight loss occurs and that any dietary change has to be long-standing to be fully effective.Finally I went over the medications, their cost and their effectiveness. She would be best served if the endocrine workup is negative by referral to the weight wellness center. 2) sweats-she complains of profuse sweating with exercise which may be due to estrogen deficiency. I will check and LH/FSH. This also may be related to repeated reactive hypoglycemia episodes. Finally may be related to simply weight gain itself. documented in this encounter Plan of Treatment Upcoming Encounters Date Type Department Care Team (Late st Contact Info) Description 06/15/2024 3:00 PM EDT Hospital [place] [address] Alena Pizarro [place] [address] 07/09/2024 8:30 AM EDT Appointment XRay at [address] [phone] Alena [place]izar[place] [address] 07/17/2024 8:00 AM EDT Procedure [place] [address] 08/26/2024 8:00 AM EST Office [place] [address] 08/27/2024 9:00 AM EST Clinical [place] [address] documented as of this encounter Results * Cortisol, saliva (09/09/2017 11:17 PM EST) Bryan Saliva Midnight (JANUARY) <50 <100 ng/dL [facility] Comment: ADDITIONAL INFORMATION This test was developed and its performance characteristics determined by [facility] in a manner consistent with CLIA requirements. This test has not been cleared or approved by the U.S. Food and Drug Administration. Test Performed by: [facility] [address] [place] [id number] Specimen of unknown material (specimen) 09/09/2017 11:17 PM EST 09/11/2017 3:05 PM EST Dinesh Garner MD LAB SEND OUT ORDERAB LES [facility] [place] [address] * Cortisol, saliva (09/08/2017 11:16 PM EST) Bryan Saliva Midnight (JANUARY) <50 <100 ng/dL [facility] Comment: ADDITIONAL INFORMATION This test was developed and its performance characteristics determined by [facility] in a manner consistent with CLIA requirements. This test has not been cleared or approved by the U.S. Food and Drug Administration. Test Performed by: [facility] [address] [place] [address] Specimen of unknown material (specimen) 09/08/2017 11:16 PM EST 09/11/2017 3:05 PM EST Dinesh Garner MD LAB SEND OUT ORDERAB LES Performing Organization Address [facility] [employer] de Phone Number [facility] [place] [address] * T4, free (09/03/2017 4:22 PM EST) Free T4 1.09 0.93 - 1.70 ng/dL [facility] Blood specimen (specimen) 09/03/2017 4:22 PM EST 09/03/2017 4:29 PM EST Narrative Resulting Agency Comment Spec In Lab Dinesh Garner MD CHEMISTRY ORDERABLES Performing Organization Address [facility] [employer] de Phone Number [facility] [place] [address] * TSH (09/03/2017 4:22 PM EST) Thyroid Stimulating Hormone 1.38 0.27 - 4.20 mlU/ML [facility] Blood specimen (specimen) 09/03/2017 4:22 PM EST 09/03/2017 4:29 PM EST Narrative Resulting Agency Comment Spec In Lab Dinesh Garner MD CHEMISTRY ORDERABLES [facility] [place] [address] documented in this encounter Visit Diagnoses Diagnosis Weight gain Abnormal weight gain Reactive hypoglycemia Hypoglycemia, unspecified Sweating abnormality Other specified disorder of sweat glands documented in this encounter Care Teams Critical Care Cns Relationship Specialty Start Date End Date Arely Arzola APRN [address] [place] [address] [place] [address] PCP - General 11/23/12 09/30/17 documented as of this encounter
--- OUTSIDE RECORDS SUMMARY | 2024-06-12 13:44 | XMS_ITS | Encounter Summary ---
[place] [address] Care Team Providers Care Temper Mill Operator Name Role Phone Arely Arzola LOUIE Primary Care Provider [phone] Reason for Visit * Auth/Cert Specialty Diagnoses / Procedures Referred By Martha broussard Referred To Contact Diagnoses S/P Gabriella fundoplication (without gastrostomy tube) procedure S/P GABRIELLA Procedures PRO UPPER GI ENDOSCOPY, DIAGNOSTIC EGD, UPPER GI ENDOSCOPY Referral ID Status Reason Start Date Expiration Date Visits Re quested Visits Authorized [id number] 1 1 Encounter Details Date Type Department Care Team (Latest Contact Info) Description 07/22/2016 2:35 PM EST - 07/22/2016 5:21 PM [facility] Hospital [place] [address] Sheridan Mosher MD [facility] [place] [address] Discharge Disposition: Home Social History Tobacco Use [...] Sign Reading Time Taken Comments Blood Pressure 129/82 07/22/2016 5:00 PM EST Pulse 94 07/22/2016 4:40 PM EST Temperature - - Respiratory Rate 16 07/22/2016 5:00 PM EST Oxygen Saturation 97% 07/22/2016 5:00 PM EST Inhaled Oxygen Concentration - - Weight - - Height - - Body Mass Index - - documented in this encounter Discharge Instructions * Discharge Instructions* Dolly Marshall RN - 07/22/2016 4:54 PM EST UPPER GI ENDOSCOPY WHAT TO EXPECT AFTER [...] better as expected. 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 01/11/2011 metFORMIN (GLUCOPHAGE) 500 mg Tablet Take 250 mg by mouth 2 times daily (with meals). 09/03/2017 hyoscyamine (LEVSIN SL) 0.125 mg Tablet, Sublingual Take 1 tablet by mouth every 4 hours as needed for Cramping (before meals and at bedtime). 90 tablet PRN 07/26/2014 09/03/2017 ibuprofen (ADVIL;MOTRIN) 800 mg tablet 10/18/2010 11/26/2017 documented as of this encounter H&P Notes * Sheridan Mosher MD - 07/22/2016 4:11 PM EST Patient Name: Mora Bolanos Patient Age: 41 y.o. Birthdate: 1975 Admit date: 07/22/2016 Attending Physician: Sheridan Mosher MD HPI: Mora Bolanos is a 41 y.o. female who presents for EGD. She has a history of Gabriella fundoplication and revision (2012), with epigastric pain, Bill off meds negative. Pain is localized to the epigastrium with radiation to her chest. Regurgitation occurs most often at night, and she sleepsat an angle. Here for follow up Queen's biopsy. Past Medical History No past medical history on file. No other medical problems ?? Past Surgical History Past Surgical History?? Procedure?? Date? Upper gi endoscopy, exam?? 09/04/2012? UPPER GI ENDOSCOPY performed by Didier Jones MD at [facility] END[facility]? Upper gi endoscopy, biopsy?? 09/04/2012? EGD WITH BIOPSY performed by Didier Jones MD at [facility] ENDOSCOPY? Lap, esophagus, other proc?? 11/25/2012? LAPAROSCOPIC REVISION OF GABRIELLA FUNDOPLASTY performed by Sheridan Mosher MD at [facility] MAIN OR? Upper gi endoscopy, diagnostic?? 11/25/2012? ENDOSCOPY, UPPER GI, DIAGNOSTIC, WITH OR WITHOUT SPECIMENS performed by Sheridan Mosher MD at [facility] OR? No current facility-administered medications on file prior to encounter. Current Outpatient Prescriptions on File Prior to Encounter Medication Sig Dispense Refill ??? ibuprofen (ADVIL;MOTRIN) 800 mg tablet ??? hyoscyamine (LEVSIN SL) 0.125 mg Tablet, Sublingual Take 1 tablet by mouth every 4 hours as needed for Cramping (before meals and at bedtime). 90 tablet PRN ??? epiNEPHrine 0.15 mg/0.15 mL Cmpk combo pack Inject into the muscle as needed. ?? Allergies?? Allergen?? Reactions? Onion?? Anaphylaxis? Bupropion Hcl?? Other (See Comments)? serum sickness? Metoclopramide Hcl?? Other (See Comments)? Unknown? Social History History? Social History? Marital Status:? Spouse Name:?? N/A? Number of Children:?? N/A? Years of Education:?? N/A? Occupational History? Not on file.? Social History Main Topics? Smoking status:?? Former Smoker? Quit date:?? 12/03/2003? Smokeless tobacco:?? Not on file? Alcohol Use:?? No? Comment: once in a great while? Drug Use:?? No? Sexually Active:?? Yes -- Male partner(s)? Other Topics?? Concern? Not on file? Social History Narrative? No narrative on file?? 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 [place] On examination, she appears well and in [...] encounter Miscellaneous Notes * Op Note - Sheridan Mosher MD - 07/22/2016 5:21 PM EST [facility] [place] Patient Name: Mora Bolanos : [id number] MR#: [id number] Case Date: 07/22/2016 Surgeon: Surgeon(s) and Role: * Sheridan Mosher MD - Primary Preoperative diagnosis: S/P GABRIELLA- 2 YR REPEAT ENDOSCOPY -ASSESS ANY POTENTIAL BARRETTS Postoperative diagnosis: * No post-op diagnosis entered * Procedure(s): UPPER GASTROINTESTINAL ENDOSCOPY,WITH BIOPSY SINGLE OR MULTIPLE See procedure note Attestation: Case Date: 07/22/2016 I performed this procedure without the involvement of a resident. SHERIDAN MOSHER MD 07/23/2016 documented in this encounter Plan of Treatment Upcoming Encounters Date Type Department Care Team (Late st Contact Info) Description 06/15/2024 3:00 PM EDT Hospital [place] [address] [place] [address] 07/09/2024 8:30 AM EDT Appointment XRay at [address] [address] Alena Pizarro [facility] [place] [address] 07/17/2024 8:00 AM EDT Procedure [place] [address] 08/26/2024 8:00 AM EST Office [place] [address] 08/27/2024 9:00 AM EST Clinical [place] [address] documented as of this encounter Procedures Procedure Name Priority Date/Time Associated Diagnosis Comments SURGICAL PATHOLOGY REPORT Routine 07/22/2016 4:56 PM EST SPECIMEN TO PATHOLOGY Routine 07/22/2016 4:56 PM EST UPPER GASTROINTESTINAL ENDOSCOPY,WITH BIOPSY SINGLE OR MULTIPLE (WRVU 2.39) 07/22/2016 4:23 PM EST S/P GABRIELLA- 2 YR REPEAT ENDOSCOPY -ASSESS ANY POTENTIAL BARRETTS UPPER GI ENDOSCOPY Routine 07/22/2016 4: 08 PM EST documented in this encounter Results * Surgical Pathology Report (07/22/2016 4:56 PM EST) Final Diagnosis [id number] ?Location: ; [facility]; A The signing pathologist has (i) examined the relevant preparation(s) for the specimen(s) and (ii) rendered or confirmed the diagnosis(es). . ?Surgical Pathology DIAGNOSIS GE junction, ??biopsy: - Queen 's esophagus, negative for dysplasia. Electronically signed by: ??Cash Fu MD Verified: ??07/24/2016 ?Pathologist CLINICAL INFORMATION Specimen Submitted: A - GE junction Clinical History: GERD, irregular Z line, rule out Queen ??' s Clinical Diagnosis: Same SPECIMEN PROCESSING A - Labeled/Fixativ e: GE junction, formalin. Quantity/Size: Five, 0.2-0.3 cm. Tissue Description: ??Soft, dukes-pink tissue ??. Sections/Proces sing: (T1) ??ejr 07/24/2016 2:38 PM EST [facility] GI Biopsy 07/22/2016 4:56 PM EST 07/22/2016 4:56 PM EST Sheridan Mosher MD PATHOLOGY/CYTOLOGY O PATRICIA Performing Organization Address [facility] [place] [address] * Specimen to Pathology (surgical or derm) (07/22/2016 4:56 PM EST) AP Specimen 07/22/2016 4:56 PM EST 07/22/2016 4:56 PM EST Narrative [facility] - 07/22/2016 4:56 PM EST Specimen requisition ordered. ??Separate Pathology report to follow Sheridan Mosher MD PATHOLOGY/CYTOLOGY O PATRICIA Performing Organization Address [facility] Co de Phone Number [facility] [address] * UPPER GI ENDOSCOPY (07/22/2016 4:08 PM EST) UPPER GI ENDOSCOPY [facility] Endoscopy ___ Procedure Date: 07/22/2016 4:08 PM ? Patient Name: Mora Bolanos ? Date of : 1975 ? Age: 41 ? Order #: [id number] ? Instrument Name: [id number] ? ___ Procedure: ? Upper GI endoscopy Indications: ? Epigastric abdominal pain, Dysphagia Providers: ? Sheridan Mosher MD, Ela Manley ? CHELO Fu, Daksha Colvin MD: ?Arely Arzola Medicines: ? Fentanyl 250 micrograms IV, Midazolam ? 5 mg IV, Diphenhydramine 50 mg IV Complications: ? No immediate complications. Estimated ? blood loss: None. ___ Procedure: ? Pre-Anesthesia Assessment: ? - [...] the physician, the nurse and the ? photocopier technician in the pre-procedure area ? in the endoscopy suite. Mental Status ? Examination: normal. Airway ? [...] the ? procedure well. ? Findings: ? The Z-line was irregular and was found at the ? gastroesophageal junction. Biopsies were taken with a ? cold forceps for histology. ? The cardia and gastric fundus were normal on ? retroflexion. ? There appeared to be a snug fundoplication ? on retroflex view ? The examined duodenum was normal. ? Impression: ?- Z-line irregular, at the ? gastroesophageal junction. Biopsied. ? - Normal examined duodenum. Recommendation: ?- Await pathology results. ? Procedure Code(s): ?? --- Professional --- ? 97385, Esophagogastroduode noscopy, ? flexible, transoral; with biopsy, ? single or multiple CPT copyright 2015 [employer]. All rights reserved. The codes documented in this report are preliminary and upon manager transition review may be revised to meet current compliance requirements. Attending Participation: ? I personally performed the entire procedure. ? Sheridan Mosher MD 07/22/2016 4:51:29 PM This report has been signed electronically. Number of Addenda: 0 Note Initiated On: 07/22/2016 4:08 PM PROVATION 07/22/2016 4:08 PM EST Arely Arzola APRN GENERAL SURGICAL ORD ERABLES PROVATION documented in this encounter Visit Diagnoses Not on filedocumented in this encounter Active and Recently Administered Medications Due to Daylight Saving Time, this section may contain times in both EDT and EST. PRN Medication Order 07/20/2016 07/21/2016 07/22/2016 diphenhydrAMINE (BENADRYL) injection (CANCELED) ONCE PRN, Starting on Fri07/22/16 at 1625, Until Fri07/22/16 at 1921, Intra-Operative (Intra-Procedure), Routine 1625 (Given - Provid er: Ela Fu RN)1628 (Given - Provider: Ela Fu RN) fentaNYL 50 mcg/mL multi-dose injection (CANCELED) ONCE PRN, Starting on Fri07/22/16 at 1625, Until Fri07/22/16 at 1921, Intra-Operative (Intra-Procedure), Routine 1625 (Given - Provid er: Ela Fu RN)1628 (Given - Provider: Ela Fu RN)1631 (Given - Provider: Ela Fu RN)1634 (Given - Provider: Ela Fu RN)1637 (Given - Provider: Ela Fu RN) midazolam (PF) (VERSED) 1 mg/mL multi-dose injection (CANCELED) ONCE PRN, Starting on Fri07/22/16 at 1625, Until Fri07/22/16 at 1921, Intra-Operative (Intra-Procedure), Routine 1625 (Given - Provid er: Ela Fu RN)1628 (Given - Provider: Ela Fu RN)1631 (Given - Provider: Ela Fu RN)1634 (Given - Provider: Ela Fu RN)1637 (Given - Provider: Ela Fu RN) documented in this encounter Care Teams Temper Mill Operator Relationship Specialty Start Date End Date Arely Arzola APRN [address] [address] PCP - General 11/23/12 09/30/17 documented as of this encounter
--- OUTSIDE RECORDS SUMMARY | 2024-06-12 13:44 | XMS_ITS | Encounter Summary ---
Author Organization [facility] [place] [address] Care Team Providers Care Decorating Consultant Name Role Phone DariuszArely carranza James PALMA Primary Care Provider [phone] Encounter Details Date Type Department Care Team (Latest Contact Info) Description 09/08/2017 2:41 PM EST - 09/08/2017 11:59 PM EST Hospital [place] [address] Reactive hypoglycemia Discharge Disposition: Home Social History [...] PM EDT Hospital [place] [address] [place] [address] 07/09/2024 8:30 AM EDT Appointment XRay at [address] [phone] [place] [address] 07/17/2024 8:00 AM EDT Procedure [place] [address] 08/26/2024 8:00 AM EST Office [place] [address] 08/27/2024 9:00 AM EST Clinical [place] [address] documented as of this encounter Procedures Procedure Name Priority Date/Time Associated Diagnosis Comments CORTISOL, SALIVA Routine 09/08/2017 11:1 6 PM EST Reactive hypoglycemia documented in this encounter Results * Cortisol, saliva (09/08/2017 11:16 PM EST) Bryan Saliva Midnight (JANUARY) <50 <100 ng/dL [facility] Comment: ADDITIONAL INFORMATION This test was developed and its performance characteristics determined by [facility] in a manner consistent with CLIA requirements. This test has not been cleared or approved by the U.S. Food and Drug Administration. Test Performed by: [facility] [address] [place] [address] Specimen of unknown material (specimen) 09/08/2017 11:16 PM EST 09/11/2017 3:05 PM EST Dinesh Garner MD LAB SEND OUT ORDERAB LES Performing Organization Address City/State/[facility] Co de Phone Number [facility] [place] [address] documented in this encounter Visit Diagnoses Diagnosis Reactive hypoglycemia Hypoglycemia, unspecified documented in this encounter Care Teams Decorating Consultant Relationship Specialty Start Date End Date Arely Arzola APRN [address], [place] [address] PCP - General 11/23/12 09/30/17 documented as of this encounter
--- OUTSIDE RECORDS SUMMARY | 2024-06-12 13:44 | XMS_ITS | Encounter Summary ---
[place] [address] Care Team Providers Care Gear Hobber Name Role Phone Arely Arzola LOUIE Primary Care Provider [phone] Reason for Visit * Auth/Cert Specialty Diagnoses / Procedures Referred By Martha broussard Referred To Contact Diagnoses S/P Gabriella fundoplication (without gastrostomy tube) procedure S/P GABRIELLA Procedures PRO UPPER GI ENDOSCOPY, DIAGNOSTIC EGD, UPPER GI ENDOSCOPY Referral ID Status Reason Start Date Expiration Date Visits Re quested Visits Authorized [id number] 1 1 Encounter Details Date Type Department Care Team (Late st Contact Info) Description 07/22/2016 3:30 PM EST - 07/22/2016 4:00 PM EST Surgery [place] [address] Sheridan Mosher MD [facility] [place] [address] UPPER GASTROINTESTINAL ENDOSCOPY,WITH BIOPSY SINGLE OR MULTIPLE (WRVU 2.39) Social History Tobacco Use Types [...] Sign Reading Time Taken Comments Blood Pressure 117/72 07/22/2016 3:10 PM EST Pulse 74 07/22/2016 3:10 PM EST Temperature - - Respiratory Rate 18 07/22/2016 3:10 PM EST Oxygen Saturation 97% 07/22/2016 3:10 PM EST Inhaled Oxygen Concentration - - Weight - - Height - - Body Mass Index - - documented in this encounter Discharge Instructions * Discharge Instructions* Dolly Marshall, RN - 07/22/2016 4:54 PM EST UPPER [...] better as expected. 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? Upper gi endoscopy, biopsy?? 09/04/2012? EGD WITH BIOPSY performed by Didier Jones MD at [facility]? Lap, esophagus, other proc?? 11/25/2012? LAPAROSCOPIC REVISION OF GABRIELLA FUNDOPLASTY performed by Sheridan Mosher MD at [facility] OR? Upper gi endoscopy, diagnostic?? 11/25/2012? ENDOSCOPY, UPPER GI, DIAGNOSTIC, WITH OR WITHOUT SPECIMENS performed by Sheridan Mosher MD at [facility] OR? No current facility-administered medications [...] Social History Narrative? 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 [place] On examination, she appears well and in [...] Mosher MD - 07/22/2016 5:21 PM EST [facility] [place] Note Patient Name: Mora Bolanos : [id number] MR#: [id number] Case Date: 07/22/2016 Surgeon: Surgeon(s) and Role: [...] PM EDT Hospital [place] [address] [place] [address] 07/09/2024 8:30 AM EDT Appointment XRay at [address] [address] [place] [address] 07/17/2024 8:00 AM EDT Procedure [place] [address] 08/26/2024 8:00 AM EST Office Visit [place] [address] 08/27/2024 9:00 AM EST Clinical Support [place] [address] documented as of this encounter Procedures Procedure [...] Report (07/22/2016 4:56 PM EST) Final Diagnosis [id number] ?Location: 4T; [facility]; A The signing pathologist has (i) examined [...] sing: (T1) ??ejr 07/24/2016 2:38 PM EST [facility] GI Biopsy 07/22/2016 4:56 PM EST 07/22/2016 4:56 PM EST Sheridan Mosher MD PATHOLOGY/CYTOLOGY O PATRICIA Performing Organization Address [facility] de Phone Number [facility] [place] [address] * Specimen to Pathology (surgical or derm) (07/22/2016 4:56 PM EST) AP Specimen 07/22/2016 4:56 PM EST 07/22/2016 4:56 PM EST Narrative [facility] - 07/22/2016 4:56 PM EST Specimen requisition ordered. ??Separate Pathology report to follow Sheridan Mosher MD PATHOLOGY/CYTOLOGY O PATRICIA Performing Organization Address [facility] Co de Phone Number [facility] [place] [address] * UPPER GI ENDOSCOPY (07/22/2016 4:08 PM EST) UPPER GI ENDOSCOPY [facility] ___ Procedure Date: 07/22/2016 4:08 PM ? Patient Name: Mora Bolanos ? Date of : 1975 ? Age: 41 ? Order #: [id number] ? Instrument Name: [id number] ? ___ Procedure: ? Upper GI endoscopy Indications: ? Epigastric abdominal pain, Dysphagia Providers: ? Sheridan Mosher MD, Ela Manley ? Tank, CHELO, Daksha Fraga Referring : ?Arely Arzola Medicines: ? Fentanyl 250 micrograms [...] the physician, the nurse and the ? photogrammetric technician in the pre-procedure area ? in [...] Procedure Code(s): ?? --- Professional --- ? 72391, Esophagogastroduode noscopy, ? flexible, transoral; with biopsy, ? single or multiple CPT copyright 2015 [place]. All rights reserved. The codes documented in this report are preliminary and upon financial controller review may be revised to meet current [...] diphenhydrAMINE (BENADRYL) injection ONCE PRN, Starting on Fri07/22/16 at 1625, Until Fri07/22/16 at 1921, Intra-Operative (Intra-Procedure), Routine Given 07/22/2016 4:28 PM EST 25 mg Given 07/22/2016 4:25 PM EST 25 mg fentaNYL 50 mcg/mL multi-dose injection ONCE PRN, Starting on Fri07/22/16 at 1625, Until Fri07/22/16 at 1921, Intra-Operative (Intra-Procedure), Routine Given 07/22/2016 4:37 PM EST 50 mcg Given 07/22/2016 4:34 PM EST 50 mcg Given 07/22/2016 4:31 PM EST 50 mcg midazolam (PF) (VERSED) 1 mg/mL multi-dose injection ONCE PRN, Starting on Fri07/22/16 at 1625, Until Fri07/22/16 at 1921, Intra-Operative (Intra-Procedure), Routine Given 07/22/2016 4:37 PM EST 1 mg Given 07/22/2016 4:34 PM EST 1 mg Given 07/22/2016 4:31 PM EST 1 mg documented in this [...] Ela Fu RN)1631 (Given - Provider: Ela uF RN)1634 (Given - Provider: Ela Fu RN)0086 (Given - Provider: Ela Fu RN) documented in this encounter Care Teams Gear Hobber Relationship Specialty Start Date End Date Arely Arzola APRN [address] [facility] [place] [address] PCP - General 11/23/12 09/30/17 documented as of this encounter
--- OUTSIDE RECORDS SUMMARY | 2024-06-12 13:44 | XMS_ITS | Encounter Summary ---
Author Organization [facility] [place] [address] Care Team Providers Care Food Service Driver Name Role Phone DariuszArely carranza James PALMA Primary Care Provider [phone] Encounter Details Date Type Department Care Team (Late st Contact Info) Description 07/18/2014 2:00 PM EST Office [place] [address] Patti Plunkett, RN Esophageal reflux (Primary Dx) Social History Tobacco Use Types [...] as of this encounter Progress Notes * Patti Plunkett, RN - 07/18/2014 2:58 PM EST 1455 Bill capsule deployed 29 cm below incisors post EGD. First pH is 7.8. documented in this encounter Plan of Treatment Upcoming Encounters Date Type Department Care Team (Late st Contact Info) Description 06/15/2024 3:00 PM EDT Hospital [place] [address] [place] [address] 07/09/2024 8:30 AM EDT Appointment XRay at [address] [address] Alena Pizarro [place] [address] 07/17/2024 8:00 AM EDT Procedure visit [place] [address] 08/26/2024 8:00 AM EST Office [place] [address] 08/27/2024 9:00 AM EST Clinical [place] [address] documented as of this encounter Visit Diagnoses Diagnosis Esophageal reflux- Primary documented in this encounter Care Teams Food Service Driver Relationship Specialty Start Date End Date Arely Arzola APRN [address], [place] [address] PCP - General 11/23/12 09/30/17 documented as of this encounter
--- OUTSIDE RECORDS SUMMARY | 2024-06-12 13:44 | XMS_ITS | Encounter Summary ---
Author Organization Formerly [facility], [facility] [place] [address] Care Team Providers Care Call Center Director Name Role Phone Laura Ross LOUIE Primary Care Provider [phone] Encounter Details Date Type Department Care Team (Latest Contact Info) Description 10/01/2017 9:04 PM EST - 10/01/2017 11:59 PM EST Hospital [place] [address] Discharge Disposition: Home Social History Tobacco Use [...] PM EDT Hospital [place] [address] [place] [address] 07/09/2024 8:30 AM EDT Appointment XRay at [address] [id number] [place] [address] 07/17/2024 8:00 AM EDT Procedure [place] [address] 08/26/2024 8:00 AM EST Office Visit [place] [address] 08/27/2024 9:00 AM EST Clinical Support [place] [address] documented as of this encounter Procedures Procedure Name Priority Date/Time Associated Diagnosis Comments HPV Routine 10/01/2017 12:00 PM EST TUNNEL MAN CYTOLOGY INTERPRETATION Routine 10/01/2017 12:00 PM EST TUNNEL MAN CYTOLOGY FINAL REPORT Routine 10/01/2017 12:00 PM EST documented in this encounter Results * TUNNEL MAN Cytology Interpretation (10/01/2017 12:00 PM EST) Premix Operator Concentrate Cytology Interpretation [facility] Comment:Premix Operator Concentrate Cytology Final R eport Endocervical Component Vaginal Only [facility] AP Specimen 10/01/2017 12:0 0 PM EST 10/14/2017 11:27 AM EST Narrative Resulting Agency Comment Spec In Lab / WKS Laura Ross LOUIE PATHOLOGY/CYTOLOGY O RDERABLES [facility] [place] [address] * Premix Operator Concentrate Cytology Final Report (10/01/2017 12:00 PM EST) Premix Operator Concentrate Cytology Final Report [id number] ? Location: WK The signing pathologist has (i) examined the relevant preparation(s) for the specimen(s) and (ii) rendered or confirmed the diagnosis(es). . ? Premix Operator Concentrate Final DIAGNOSIS Normal Negative for Intraepithelial Lesion or Malignancy (NILM). For consensus guidelines for the management of cervical cancer screening test results, please see: ?? [email or web address].[email or web address].o rg . Electronically signed by: ??Cari CARRIZALES(ASCP)Amalia Verified: ??10/14/2017 ?Certified Nuclear Medicine Technologist Performed at: ??-[facility] Dept. of Pathology, [place], [place] HPV RESULTS HPV16 (Result) ?Negative HPV18 [...] Clinical Genomics and Advanced Technology (CGAT) at [facility] [place]. ? - Tomasz Whitehead, PhD, [facility], Director-[facility] STATEMENT OF ADEQUACY Specimen submitted is satisfactory. Vaginal Only. CLINICAL INFORMATION HPV Option: ? Concurrent HPV Preparation: ?Liquid Based Pap Specimen Source: ?Vaginal Only/LBP LMP: ?Hyst Hormones?: ?No Hysterectomy?: ?Yes ?: ?No ?: ?No I.U.D.?: ?No Pelvic Radiation: ? No Prior TUNNEL MAN Therapy?: ? No Hist Abnl Pap/Biopsy?: ??Yes Hist of HPV Vaccine?: ?? No Hist of Smoking?: ? No Hist of SANDRA exposure?: ??No Clinical Data, Significant Therapy and Clinical Impression ?? : ?? _ Referring Identifier: ?(not provided) . CLINICAL INFORMATION This Pap Test has been evaluated with the assistance of the [employer]Prep Pap Test Imaging System. Note: The Pap test is a screening test for cervical cancer with an inherent false-negative rate dependent upon several variables. For further information please contact the [facility] [place] Laboratory. Reference: Rosemary YE. Flat Polisher of Pap Smear Results. In: Dane BS, Jeferson HH, ed. ??The Pap Smear. [place]: Rolando, 2002: 71-77. [facility] 10/01/2017 12:0 0 PM EST Narrative Resulting Agency Comment Spec In Lab / WKS Laura Gannell BOMB SQUAD OFFICER PATHOLOGY/CYTOLOGY O RDERABLES Performing Organization Address [facility] Co de Phone Number [facility] [place] [place] [address] * HPV (10/01/2017 12:00 PM EST) HPV16 NEGATIVE NEGATIVE [facility] HPV 18 NEGATIVE NEGATIVE [facility] HPV Other HR NEGATIVE NEGATIVE [facility] HPV Interpretation See Comment [facility] Comment: NEGATIVE for high-risk [...] Comment Spec In Lab / WKS Laura Gannbenjy CARMENN PATHOLOGY/CYTOLOGY O PATRICIA Performing Organization Address [facility] Co de Phone Number [facility] [place] [place] [address] documented in this encounter Visit Diagnoses Not on filedocumented in this encounter Care Teams Call Center Director Relationship Specialty Start Date End Date Laura Ross APRN [address] [place] [id number] PCP - General Family Medicine 10/01/17 08/21/22 documented as of this encounter
--- OUTSIDE RECORDS SUMMARY | 2024-06-12 13:44 | XMS_ITS | Encounter Summary ---
Author Organization [facility] [place] [address] Care Team Providers Care Proofer Black And White Name Role Phone Arley Arzola LOUIE Primary Care Provider [phone] Encounter Details Date Type Department Care Team (Latest Contact Info) Description 11/25/2012 10:02 PM EDT - 11/27/2012 2:56 PM EDT Hospital Encounter [address] [place] [address] Sheridan Mosher MD [facility] [place] [address] Discharge Disposition: Home Social History Tobacco Use [...] Sign Reading Time Taken Comments Blood Pressure 102/56 11/26/2012 7:33 AM EDT Pulse 72 11/26/2012 7:33 AM EDT Temperature 36.7 ??C (98.1 ??F) 11/26/2012 7:33 AM ED T Respiratory Rate 20 11/26/2012 7:33 AM EDT Oxygen Saturation 98% 11/26/2012 7:33 AM EDT Inhaled Oxygen Concentration - - [...] HOLIDAYS: ASK FOR THE GENERAL SURGERY RESIDENT TACK DRILLER IF ANY OF THE ABOVE OCCUR. Activity level: Increase your activity slowly. You may tire easily, so frequent rest periods may be necessary. Do not lift more than 10 pounds for 4 weeks. Walk three times a day. Use common sense. Don't exhaust yourself. Diet: You should follow a post Anjel diet, as instructed by the chief unit forester in the hospital for a period of [...] Mosher at the General Surgery Outpatient Clinic- Engineering Inspection Assistant 4. You will receive a letter in the mail confirming the appointment date and time. Your follow-up is very important to us. Please call [phone] if you do not hear from us [...] answered, pain well controlled. * Saji Woods - 11/27/2012 7:04 AM EDT General Surgery Resident Progress Note Mora Bolanos,[id number],1975 ID: A 37 yoF with h/o GERD, endometriosis, chronic constipation, now s/p re-do laparoscopic Anjel fundoplication POD#2 Interval: No acute events over night Ambulating Pain better controlled Tolerating adequate oral intake ??? DISCONTD: lactated ringers Stopped (11/26/12 0800) ??? DISCONTD: morphine ZOO CARETAKER Stopped (11/26/12 0800) ??? DISCONTD: ZOO CARETAKER diaz ??? DISCONTD: ZOO CARETAKER diaz ??? scopolamine 1 patch Transdermal Q72H [...] endometriosis, chronic constipation, now s/p re-do laparoscopic Anjel fundoplication POD#2 Vital signs, I/O, labs all close to normal values, abdominal exam not concerning Pain issues resolving. Full liquid post Anjel diet Aim for d/c home this AM * Samreen Cerda RN - 11/26/2012 1:57 PM EDT Care Management/ CRC Pager# [phone]/ Assessment O: Patient talking on phone now. Notes reviewed. Patient lives with her Jay. Patient has [employer] PPO insurance. No Advance Directives on file here at [facility]. Patient is POD #1 laparoscopic Anjel revision. At this time patient is on [...] Reason for Nutrition Intervention: Consult Diet Order: Anjel, full liquids, no carbonated beverages Appetite: small Food allergies: none Height: (cm) 154.9 Weight: (kg) 71.2 BMI: 29.7 Education: Reviewed anjel and full liquid dietary guidelines. Verbalized good understanding. Education material, with means of contact provided. Assessment: Patient denies need for any other changes at this time. Nutrition Plan: Diet: Anjel, full liquids, no carbonated beverages Encourage good po intake. Support and encouragement provided. Nutrition services to follow weekly thru hospital course unless consulted in the interim. MARIUM ELMORE * Saji Woods P - 11/26/2012 7:52 AM EDT General Surgery Resident Progress Note Mora Bolanos,[id number],1975 ID: A 37 yoF with h/o GERD, endometriosis, chronic constipation, now s/p re-do laparoscopic Anjel fundoplication POD#1 Interval: Taken to surgery last PM, no intraoperative events reported Pain issues this AM Has not ambulated No nausea, tolerating small amount of liquids ??? lactated ringers 100 mL/hr (11/26/12 0521) ??? morphine ZOO CARETAKER ??? ZOO CARETAKER diaz ??? scopolamine 1 patch Transdermal Q72H [...] endometriosis, chronic constipation, now s/p re-do laparoscopic Anjel fundoplication POD#1 Vital signs, I/O, labs all close to normal values, abdominal exam not concerning Pain issues, will add Toradol, advance along path, Hliv, ambulate, oral pain medications, hurst out, full liquid diet Pending on progress, possible d/c this PM * Ryan Leyva, CHELO - 11/26/2012 4:15 AM EDT Patient Name: [...] vomiting. Oriented to roomand call reddy system. ZOO CARETAKER morphine infusing, set in PACU/Same day surgery. * Cheryl Matos RN - 11/25/2012 9:34 PM EDT 2129 spoke w/ Dr. Fonseca about SBP=99-OK TO DISCHARGE FROM PACU CARE * Krystyna Luna MD - 11/25/2012 9:31 PM EDT General Surgery Post-op Note Mora Bolanos is a 37 y.o. female s/p the following procedure: revision of Anjel Fundiplocation S: Denies nausea/vomiting, chest pain, SOB, [...] a 37 y.o. female s/p revision of anjel fundiplocation currently in stable condition and recovering well. Continue current management. Will monitor for urine output throughout the night. KRYSTYNA LUNA MD 11/25/2012 * Cheryl Matos RN - 11/25/2012 8:58 PM EDT 2044 instructed to use ZOO CARETAKER Morphine-can successfully perform * Cheryl Matos RN - 11/25/2012 8:57 PM EDT 2024 s/p anjel revision w/ MJ-fbcvv-cequjmwry dressings (5 bandaids) intact documented in this encounter H&P Notes * Sheridan Mosher MD - 11/25/2012 5:06 PM EDT Patient Name: Mora Bolanos Patient Age: 37 y.o. Birthdate: 1975 Admit date: 11/25/2012 Attending Physician: Sheridan Mosher MD Mrs. Bolanos is a 37F post Lap Anjel Fundoplication in 2010. Apparently had some issues with epigastric pain last year in [place] and had part of her wrap taken down. No improvement in discomfort. Now has recurrent GERD. EGD shows abnormal wrap with some esophagitis Manometry normal Minimal herniation on swallow On ROS, she denies any recent illnesses. No fevers or chills. No CHAUDHRY or vision changes. Nocturnal risk consultant above. No SOB. Epigastric pain as above. [...] 2 with colon CA Father with lupus, CAD/NM Brother x 2 with CAD/NM Maternal uncle with pancreatic CA Maternal GF with pancreatic CA All: wellbutrin, reglan, onion Meds updated in CIS On P/E, she is well appearing and appropriate. Afebrile with stable VS. CVS RRR normal heart sounds. Chest is clear. Abdomen obese, soft, NTTP. No extremity edema. documented in this encounter Miscellaneous Notes * Miscellaneous - Provider, Scanning - 11/28/2012 11:26 AM EDT * Plan [...] Control/Comfort Level - Pain, Acute (Adult, Obstetric) ZOO CARETAKER was discontinued this morning. Pt c/o sever [...] admitted on 11/25/2012 for a re-do laparoscopic Anjel fundoplication. She tolerated the procedure well, and [...] Manoj Leyva MD: Procedure(s): LAPAROSCOPIC REVISION OF ANJEL FUNDOPLASTY ENDOSCOPY, UPPER GI, DIAGNOSTIC, WITH OR [...] 2:00 PM Sheridan Mosher MD [facility] Patient Instructions: Call your doctor if you develop: Fever greater than 101.3 degrees Farenheit (38.5 degrees Celcius), chills, nausea or vomiting. Alsocall if you develop severe pain not relieved by your prescribed oral pain medicine. CALL THE GENERAL SURGERY CLINIC DURING WORKING HOURS AT , OR CALL AFTERCLINIC HOURS, WEEKENDS AND HOLIDAYS: ASK FOR THE GENERAL SURGERY RESIDENT TACK DRILLER IF ANY OF THE ABOVE OCCUR. Activity level: Increase your activity slowly. You may tire easily, so frequent rest periods may be necessary. Do not lift more than 10 pounds for 4 weeks. Walk three times a day. Use common sense. Don't exhaust yourself. Diet: You should follow a post Anjel diet, as instructed by the chief unit forester in the hospital for a period of [...] Mosher at the General Surgery Outpatient Clinic- Engineering Inspection Assistant 4L Friday. You will receive a letter in the mail confirming the appointment date and time. Your follow-up is very important to us. Please call [phone] if you do not hear from us [...] HOLIDAYS: ASK FOR THE GENERAL SURGERY RESIDENT TACK DRILLER IF ANY OF THE ABOVE OCCUR. Activity level: Increase your activity slowly. You may tire easily, so frequent rest periods may be necessary. Do not lift more than 10 pounds for 4 weeks. Walk three times a day. Use common sense. Don't exhaust yourself. Diet: You should follow a post Anjel diet, as instructed by the chief unit forester in the hospital for a period of [...] Mosher at the General Surgery Outpatient Clinic- Engineering Inspection Assistant 4L. You will receive a letter in the mail confirming the appointment date and time. Your follow-up is very important to us. Please call [phone] if you do not hear from us [...] s/p endoscopic fundoplication for reflux. On morphine ZOO CARETAKER with good relief obtained. No c/onausea or vomiting, iv fluids infusing, tolerating ice/ water without nausea vomiting. Resp even and unlabored. Patient alert and oriented x4, easily awaken with voice or light touch. * Op Note - Sheridan Mosher MD - 11/25/2012 8:[address] [facility] Operative Note Patient Name: Mora Bolanos : [id number] MR#: [id number] Case Date: 11/25/2012 Surgeon: Surgeon(s) and Role: * Sheridan Mosher MD - Primary * Manoj Leyva MD No qualified resident available to assist Preoperative diagnosis: FAILED FUNDOPLICATION Postoperative diagnosis: FAILED FUNDOPLICATION Procedure(s): LAPAROSCOPIC REVISION OF ANJEL FUNDOPLASTY ENDOSCOPY, UPPER GI, DIAGNOSTIC, WITH OR [...] with good result but a surgeon in [place] took it down and she now has recurrent reflux. The risks and benefits of Anjel fundoplication were discussed with the patient andhe [...] esophagus was then easily encircled with a Ruby drain and this was used for further traction. The crural closure appeared adequate. After adequate mobility, the mobilized fundus easily remained in place around the esophagus withouttension. Endoscopy was performed to confirm the location of the GE junction and integrity of the stomach. No leaks were noted. A 60 [place] Bougie was passed by Anesthesia and left [...] then removed under direct vision and the Ruby drain and liver retractor were removed. The [...] PM EDT Hospital [place] [address] [place] [address] 07/09/2024 8:30 AM EDT Appointment XRay at [address] [address] [place] [address] 07/17/2024 8:00 AM EDT Procedure [place] [address] 08/26/2024 8:00 AM EST Office [place] [address] 08/27/2024 9:00 AM EST Clinical Support [place] [address] documented as of this encounter Procedures Procedure Name Priority Date/Time Associated Diagnosis Comments DIFFERENTIAL, AUTOMATED Routine 11/26/2012 6:39 AM EDT CBC (WITH DIFF) Routine 11/26/2012 6:39 AM EDT MAGNESIUM Routine 11/26/2012 6:39 AM EDT BASIC METABOLIC PANEL Routine 11/26/2012 6:39 AM EDT ENDOSCOPY, UPPER GI, DIAGNOSTIC, WITH OR WITHOUT SPECIMENS (WRVU 2.09) Yes 11/25/2012 5:50 PM EDT FAILED FUNDOPLICATION LAPAROSCOPIC REVISION OF ANJEL FUNDOPLASTY (WRVU 48.75) Yes 11/25/2012 5:50 PM [...] EDT Manoj Leyva MD HEMATOLOGY ORD ERABLES CERNER MILLENNIUM * Magnesium (11/26/2012 6:39 AM EDT) Magnesium 0.76 0.69 - 1.07 mmol/L CERNER MILLENNIUM Blood specimen (specimen) 11/26/2012 6:39 AM EDT 11/26/2012 6:54 AM EDT Narrative Resulting Agency Comment Spec In Lab Manoj Leyva MD CHEMISTRY [place] Performing Organization Address [facility] de Phone Number CERNER MILLENNIUM * (ABNORMAL) Basic Metabolic Panel (non-fasting) (11/26/2012 6:39 AM EDT) Glucose 141 60 - 199 mg/dL CERNER MILLENNIUM Comment:Diabetes: >=200 mg/d L plus symptoms Blood Urea Nitrogen 10 8 - 18 mg/dL CERNER MILLENNIUM Creatinine 0.65(L) 0.70 - 1.20 mg/dL CERNER MILLENNIUM Comment: Please note that the pediatric reference intervals supplied above were not validated at [facility]. Results from pediatric patients should be interpreted [...] Spec In Lab Manoj Leyva MD CHEMISTRY [place]DHu[place] Performing Organization Address City/[facility]/ZIP Co de Phone Number EUGENE BROOKS * [...] In Lab Manoj Leyva MD HEMATOLOGY ORD ERABLES EUGENE BROOKS documented in this encounter Visit Diagnoses Not on filedocumented in this encounter Administered Medications Inactive Administered Medications - up to 3 most recent administrations Medication Order MAR Action Action Date Dose Rate Site fentaNYL 50mcg/mL injection 25-50 mcg, Intravenous, EVERY 5 MIN PRN, Starting on Fri11/25/12 at 2021, Until Fri11/25/12 at 2138, Pain, for breakthrough [...] 100 mL/hr 100 mL/hr morphine 1 mg/mL ZOO CARETAKER 30 mL Intravenous, ZOO CARETAKER ONLY, Starting on Fri11/25/12 at 2100, Until Fri11/26/12 at 0800 New Syringe/Cartridge 11/25/2012 8:45 PM [...] EVERY 3 HOURS PRN, Pain, Starting on Germania 11/26/12 at 1900, Until Fri11/27/12 at 1657, Maximum [...] Until Discontinued 2230 (Given - Provider: Ryan Leyva RN) 1030 (Given - Provider: Kasandra Molina RN)2230 (Given - Provider: Ryan Leyva, CHELO) 1030 (Given - Provider: Syeda Haque RN) Continuous Medication Order 11/25/2012 11/26/2012 11/27/2012 lactated ringers infusion (CANCELED) 100 mL/hr, Intravenous, CONTINUOUS, Starting on Fri11/25/12 at 2100, Until Germania 11/26/12 at 0800 2045 (New Bag - Provider: Cheryl Matos RN) 0500 (Rate/Dose Verify - Provider: Ryan Leyva RN)0521 (New Bag - Provider: Ryan Leyva, RN)0800 (Stopped - Provider: Kasandra Molina RN) morphine 1 mg/mL ZOO CARETAKER 30 mL (CANCELED) Intravenous, ZOO CARETAKER ONLY, Starting on Fri11/25/12 at 2100, Until [...] Recovery, Routine 2053 (Given - Provider: Cheryl Matos, CHELO) ketorolac (TORADOL) injection 15 mg (CANCELED) 15 mg, Intravenous, EVERY 6 HOURS PRN, Starting on Germania 11/26/12 at 0830, Until Fri11/27/12 at 1657, Pain, Routine 1132 (Given - Provider: Kasandra Molina RN)1744 (Given - Provider: Kasandra Molina RN) 0000 (Given - Provider: Ryan Leyva, RN)0604 (Given - Provider: Ryan Leyva, CHELO)1224 (Given - Provider: Syeda Haque RN) OXYcodone-acetaminophen (ROXICET) 5-325 mg/5 mL oral solution 5-10 mL (CANCELED) 5-10 mL, Oral, EVERY 4 HOURS PRN, Pain, Starting on Germania 11/26/12 at 0759, Until Germania 11/26/12 at 1858, Maximum dose of acetaminophen is 4000 mg from all sources in 24 hours. 1022 (Given - Provider: Kasandra Molina, RN)1531 (Given - Provider: Kasandra Molina RN) OXYcodone-acetaminophen (ROXICET) 5-325 mg/5 mL oral solution 5-10 mL 5-10 mL, Oral, EVERY 3 HOURS PRN, Pain, Starting on Germania 11/26/12 at 1900, Until 11/27/12 at 1657, Maximum dose of acetaminophen is 4000 mg from all sources in 24 hours. 2100 (Given - Provider: Ryan Leyva RN) 0000 (Given - Provider: Ryan Leyva RN)0334 (Given - Provider: Ryan Leyva, CHELO)0625 (Given - Provider: Ryan Leyva RN)0926 (Given - Provider: Syeda Haque, CHELO)1224 (Given - Provider: Syeda Haque, CHELO) Linked Groups Order Group 1: scopolamine (TRANSDERM-SCOP) 1.5 mg patch 1 patch (CANCELED)Jump to med 1 patch, Transdermal, EVERY 72 HOURS, First dose on Fri11/25/12 at 1800, Until Discontinued, Routine And scopolamine (TRANSDERM SCOP) patch REMOVAL (CANCELED) Transdermal, EVERY 72 HOURS, First dose on Fri11/28/12 at 1800, Until Discontinued, Remove Scopolamine Patch documented in this encounter Care Teams Proofer Black And White Relationship Specialty Start Date End Date Arely Arzola APRN [address] [place] [address] PCP - General 11/23/12 09/30/17 documented as of this encounter
--- OUTSIDE RECORDS SUMMARY | 2024-06-12 13:44 | XMS_ITS | Encounter Summary ---
Author Organization [facility] Address [facility] [place] [address] Care Team Providers Care Digital Director Name Role Phone Arely Arzola LOUIE Primary Care Provider [phone] Reason for Visit * Reason Comments Follow-up Encounter Details Date Type Department Care Team (Latest Contact Info) Description 12/02/2012 12:45 PM EDT Office Visit [place] [address] Sheridan Cassidy MD [facility] [place] [address] Gastroesophageal reflux (Primary Dx) Discharge Disposition: Home Social History Tobacco Use [...] Progress Notes * Sheridan Cassidy MD - 12/04/2012 7:13 AM EDT Ms. Bolanos returns one week following her laparoscopic redo Magdaleno fundoplication. Overall, she has recovered well. Her heartburn and regurgitation are completely gone and she is off medications. She has no significant problems with dysphagia beyond what is expected 1 week post-op. Her wound sitesare well healing without signs of infection or hernia. Overall, she is doing very well and she knows to contact me if further problems develop. documented in this encounter Plan of Treatment Upcoming Encounters Date Type Department Care Team (Late st Contact Info) Description 06/15/2024 3:00 PM EDT Hospital Encounter [place] [address] [place] [address] 07/09/2024 8:30 AM EDT Appointment XRay at [address] [address] [place] [address] 07/17/2024 8:00 AM EDT Procedure visit [place] [address] 08/26/2024 8:00 AM EST Office [place] [address] 08/27/2024 9:00 AM EST Clinical [place] [address] documented as of this encounter Visit Diagnoses Diagnosis Gastroesophageal reflux- Primary Esophageal reflux documented in this encounter Care Teams Digital Director Relationship Specialty Start Date End Date Arely Arzola APRN [address], [place] [address] PCP - General 11/23/12 09/30/17 documented as of this encounter
--- OUTSIDE RECORDS SUMMARY | 2024-06-12 13:44 | XMS_ITS | Encounter Summary ---
Author Organization [facility]ly [facility] Address [facility] [place] [address] Care Team Providers Care Plant Physiology Teacher Name Role Phone Arely Arzola LOUIE Primary Care Provider [phone] Encounter Details Date Type Department Care Team (Latest Contact Info) Description 07/18/2014 12:59 PM EST - 07/18/2014 4:54 PM EST Hospital Encounter [place] [address] Sheridan Cassidy MD [facility] [place] [address] Discharge Disposition: Home Social History Tobacco Use [...] Sign Reading Time Taken Comments Blood Pressure 124/79 07/18/2014 3:10 PM EST Pulse 81 07/18/2014 3:10 PM EST Temperature - - Respiratory Rate 16 07/18/2014 3:10 PM EST Oxygen Saturation 98% 07/18/2014 3:10 PM EST Inhaled Oxygen Concentration - - Weight - - Height - - Body Mass Index - - documented in this encounter Discharge Instructions * Discharge Instructions* Eamon Porras RN - 07/18/2014 3:14 PM EST UPPER GI ENDOSCOPY with Garcia PH Capsule and Biopsies What to expect after the procedure You may feel a little more gassy or bloated than usual, this is normal. You should expect the return of normal bowel function in the next 2 to 3 days. Because some biopsies were taken, you may see a little blood with the next few bowel movements, this should be a small amount ( less than a few tablespoons) and will resolve on its own. ACTIVITY Because of the sedation that you recieved Your judgement and reaction time are affected ?? Go home and rest quietly for the remainder of the day. You may resume your normal activities tomorrow. ?? Change from one position to the next slowly. You may loose your balance unexpectedly. ?? Be careful on stairs, as you may be unsteady on your feet. FOR THE NEXT 24 HRS ?? DO NOT DRIVE OR OPERATE ANY MACHINERY ?? DO NOT DRINK ALCOHOLIC BEVERAGES ?? DO NOT SIGN LEGAL DOCUMENTS or make important decisions ?? If you are a smoker: DO NOT SMOKE WHILE YOU ARE ALONE Diet ?? Start by eating small portions of foods that ordinarily won't upset your stomach. Be gentle withwhat you choose to start with. ?? Drink plenty of fluids ( unless otherwise told not to) Medications ?? You may have a mild sore throat. Ice chips, popsicles, over- the-counter throat lozenges or spaymay help numb your throat. This procedure should not cause a fever. ?? You may experience some chest discomfort that may or may not get worse with swallowing. If this happens try drinking a warm liquid which will help relax the esophagus. Or use pain medicine that you normally would use ( Tylenol, advil ...). Peppermint tea may also be useful. This discomfort usually passes after 24-48 hrs. Avoid medicines that influence the way your blood clots for the next week. These would include anti-inflammatory medicine, such as ibuprofen( Advil, Motrin) and naproxen ( Aleve). If you need something for discomfort, Tylenol (Acetaminophen) is safe if used as directed. Your doctor will tell you when to restart your prescribed blood thinners Other Instructions Be sure to carry your technical operations vice president within 3 feet at all times . Follow the instructions that were givento you along with your diary. IV SITE may get red or tender. This is normal. You may use warm compresses 20 minutes at a time on and off for the next day or so. If the tenderness +/or redness increases or foul drainage and a red streak occurs, please contact your primary doctor. WHEN SHOULD YOU CALL FOR HELP? Call 911 anytime you think that you need emergency care. For example, call if: You passed out (lost consciousness). You cough up blood. You vomit blood or what looks like coffee grounds. You pass maroon or very bloody stools. Call your doctor now or seek immediate medical attention if: Severe chest pain that gets worse with swallowing You have trouble swallowing. Your stools are black or tarlike You are sick to your stomach or cannot keep fluids down. Your stools have streaks of blood that is more pronounced with each BM You have belly pain, or your belly is swollen and firm You vomit You have a fever You are very dizzy Watch closely for changes in your health, and be sure to contact your doctor IF Your throat still hurts after a day or two You do not get better as expected. Your doctor will let you know when you will need your next colonoscopy. The results of your test and your risk for colorectal cancer will help your doctor decide how often you need to be checked. Follow up care is a diaz part of your treatment and safety. Be sure to make and go to all appointments, and call your doctor if you are having problems. If you have questions or concerns, please call us [facility] [phone] 8a-5p Same Day Endo [phone] 7a-8p Otherwise contact [phone] and ask to speak to the oil plant operator director translational. Patti Plunkett RN [phone] if any problems with technical operations vice president Discharge instructions reviewed with patient who expresses understanding. documented in this encounter Medications at Time [...] as of this encounter H&P Notes * Kasey Jennings MD - 07/18/2014 2:19 PM EST HPI: Mora Bolanos is a 39 y.o. female who presents for EGD. She has a history of Gabriella fundoplication and revision (2012), with recurrence of heartburn, and regurgitation. Pain is localized tothe epigastrium with radiation to her chest. Regurgitation occurs most often at night, and she sleeps at an angle. She was taking protonix BID, however stopped due to lack of improvement. No past medical history on file. No other medical problems Past Surgical History Procedure Date ??? Upper gi endoscopy, exam 09/04/2012 UPPER GI ENDOSCOPY performed by Didier Jones MD at [facility] ENDOSCOPY ??? Upper gi endoscopy, biopsy 09/04/2012 EGD WITH BIOPSY performed by Didier Jones MD at [facility] ENDOSCOPY ??? Lap, esophagus, other proc 11/25/2012 LAPAROSCOPIC REVISION OF GABRIELLA FUNDOPLASTY performed by Sheridan Cassidy MD at [facility] MA[facility] OR ??? Upper gi endoscopy, diagnostic 11/25/2012 ENDOSCOPY, UPPER GI, DIAGNOSTIC, WITH OR WITHOUT SPECIMENS [facility] Meds: None Allergies Allergen Reactions ??? Onion Anaphylaxis ??? Bupropion Hcl Other (See Comments) serum sickness ??? Metoclopramide Hcl Other (See Comments) Unknown History Social History ??? Marital Status: Spouse Name: N/A Number of Children: N/A ??? Years of Education: N/A Occupational History ??? Not on file. Social History Main Topics ??? Smoking status: Former Smoker Quit date: 12/03/2003 ??? Smokeless tobacco: Not on file ??? Alcohol Use: No Comment: once in a great while ??? Drug Use: No ??? Sexually Active: Yes -- Male partner(s) Other Topics Concern ??? Not on file Social History Narrative ??? 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 Well healed surgical scars. Plan: Mora Bolanos is a 39 y.o. female who presents for EGD. The risks, benefits and alternatives of the procedure were described, and the patients agrees to proceed. documented in this encounter Miscellaneous Notes * Miscellaneous - Provider, Scanning - 07/18/2014 12:00 AM EST * Miscellaneous - Provider, Scanning - 07/18/2014 12:00 AM EST documented in this encounter Plan of Treatment Upcoming Encounters Date Type Department Care Team (Late st Contact Info) Description 06/15/2024 3:00 PM EDT Hospital [place] [address] Alena Pizarro [place] [address] 07/09/2024 8:30 AM EDT Appointment XRay at [address] [phone] Alena Pizarro [place] [address] 07/17/2024 8:00 AM EDT Procedure visit [place] [address] 08/26/2024 8:00 AM EST Office [place] [address] 08/27/2024 9:00 AM EST Clinical [place] [address] documented as of this encounter Procedures Procedure Name Priority Date/Time Associated Diagnosis Comments EGD, UPPER GI ENDOSCOPY (WRVU 2.09) 07/18/2014 2:24 PM EST S/P GABRIELLA UPPER GI ENDOSCOPY Routine 07/18/2014 2: 19 PM EST documented in this encounter Results * UPPER GI ENDOSCOPY (07/18/2014 2:19 PM EST) [facility] Signature UPPER GI ENDOSCOPY [facility] Endoscopy ___ Patient Name: Mora Bolanos ? Procedure Date: 07/18/2014 2:19 PM ? N: [id number] ? Date of : 1975 ? Age: 39 ? Order #: [id number] ? ___ Procedure: ? Upper GI endoscopy Indications: ? Esophageal reflux symptoms that recur ? despite appropriate therapy Providers: ? Sheridan Cassidy MD, Patti Nevarez, ? RN, Cj Cordova, Dispatcher [employer] Referring : ?Arely Arzola Medicines: ? Fentanyl 250 micrograms IV, Midazolam ? 6 mg IV, Diphenhydramine 50 mg IV, ? Cetacaine spray Complications: ? No immediate complications. ___ Procedure: [...] proposed procedure were verified by ? the physician and the nurse in the ? pre-procedure area in the endoscopy ? suite. Mental Status Examination: ? normal. Airway Examination: normal ? oropharyngeal airway and neck ? mobility. Respiratory Examination: ? clear to auscultation. CV ? Examination: normal. Prophylactic ? Antibiotics: The patient [...] The Z-line was irregular and was found 35 cm from the ? incisors. ? There appeared to be a snug fundoplication ? on retroflex view ? The examined duodenum was normal. ? No gross lesions were noted in the entire esophagus. ? The GARCIA capsule with delivery system was introduced ? through the mouth and advanced into the esophagus, ? such that the GARCIA pH capsule was positioned 35 cm ? from the incisors, which was 6 cm proximal to the EG ? junction. The GARCIA pH capsule was then deployed and ? attached to the esophageal mucosa. The delivery ? system was then withdrawn. Endoscopy was utilized for ? probe placement and diagnostic evaluation. ? Impression: ?- Z-line irregular, 35 cm from the ? incisors. ? - Normal examined duodenum. ? - No gross lesions in esophagus. ? - The GARCIA pH capsule was deployed. Procedure Code(s): ?? --- Professional --- ? 86189, Upper gastrointestinal ? endoscopy including esophagus, ? stomach, and either the duodenum ? and/or jejunum as appropriate; ? diagnostic, with or without ? collection of specimen(s) by brushing ? or washing (separate procedure) CPT (R) 2012 [employer]. All Rights Reserved. The codes documented in this report are preliminary and upon hospital coder review may be revised to meet current compliance requirements. Sheridan Cassidy MD 07/18/2014 3:02 PM This report has been signed electronically. Number of Addenda: 0 Note Initiated On: 07/18/2014 2:19 PM PROVATION 07/18/2014 2:19 PM EST Arely Arzola [employer] GENERAL SURGICAL ORD ERABLES PROVATION documented in this encounter Visit Diagnoses Not on filedocumented in this encounter Administered Medications Inactive Administered Medications - up to 3 most recent administrations Medication Order MAR Action Action Date Dose Rate Site lactated ringers infusion 100 mL/hr, Intravenous, CONTINUOUS, Starting on Fri07/18/14 at 1345, Until Fri07/18/14 at 1855, Endoscopy (Day of Procedure) New Bag 07/18/2014 1:25 PM EST 100 mL/hr 100 mL/hr documented in this encounter Active and Recently Administered Medications Due to Daylight Saving Time, this section may contain times in both EDT and EST. Continuous Medication Order 07/16/2014 07/17/2014 07/18/2014 lactated ringers infusion (CANCELED) 100 mL/hr, Intravenous, CONTINUOUS, Starting on Fri07/18/14 at 1345, Until Fri07/18/14 at 1855, Endoscopy (Day of Procedure) 1325 (New Bag - Prov ider: Edith Dsouza RN) PRN Medication Order 07/16/2014 07/17/2014 07/18/2014 diphenhydrAMINE (BENADRYL) injection (CANCELED) ONCE PRN, Starting on Fri07/18/14 at 1443, Until Fri07/18/14 at 1855, Itching, Intra-Operative (Intra-Procedure), Routine 1443 (Given - Provid er: Patti Nevarez RN - Comment: continuing sedation)1446 (Given - Provider: Patti Nevarez RN - Comment: continuing sedation) fentaNYL 50mcg/mL injection (CANCELED) ONCE PRN, Starting on Fri07/18/14 at 1433, Until Fri07/18/14 at 1855, Pain, Intra-Operative (Intra-Procedure), Routine 1433 (Given - Provid er: Patti Nevarez RN - Comment: starting sedation)1436 (Given - Provider: Patti Nevarez RN - Comment: continuing sedation)1439 (Given - Provider: Patti Nevarez RN - Comment: continuing sedation)1443 (Given - Provider: Patti Nevarez RN - Comment: continuing sedation)1452 (Given - Provider: Patti Nevarez RN - Comment: pt uncomfortable) midazolam (PF) (VERSED) 1 mg/mL injection (CANCELED) ONCE PRN, Starting on Fri07/18/14 at 1433, Until Fri07/18/14 at 1855, Sleep, Intra-Operative (Intra-Procedure), Routine 1433 (Given - Provid er: Patti Nevarez RN - Comment: starting sedation)1436 (Given - Provider: Patti Nevarez RN - Comment: continuing sedation)1439 (Given - Provider: Patti Nevarez RN - Comment: continuing sedation)1441 (Given - Provider: Patti Nevarez RN - Comment: continhuihng sedation)1444 (Given - Provider: Patti Nevarez RN - Comment: continuing sedation)1453 (Given - Provider: Patti Nevarez RN - Comment: pt uncomfortable) documented in this encounter Care Teams Plant Physiology Teacher Relationship Specialty Start Date End Date Arely Arzola APRN [address] [place] [address] PCP - General 11/23/12 09/30/17 documented as of this encounter
--- OUTSIDE RECORDS SUMMARY | 2024-06-12 13:44 | XMS_ITS | Encounter Summary ---
Author Organization [facility] Address [facility] [place] [address] Care Team Providers Care Converter Operator Name Role Phone Arely Arzola James PALMA Primary Care Provider [phone] Encounter Details Date Type Department Care Team (Latest Contact Info) Description 07/26/2014 9:26 AM EST - 07/26/2014 11:59 PM [facility] Hospital Encounter XRay at [address] [place] [address] Esophageal reflux Social History Tobacco Use Types [...] muscle as needed (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 01/11/2011 erythromycin (DEEPIKA-TAB) 250 mg Tablet, Delayed Release (E.C.) Take 1 tablet by mouth 4 times daily for 7 days. 28 tablet 0 07/26/2014 08/02/2014 hyoscyamine (LEVSIN SL) 0.125 mg Tablet, Sublingual [...] PM EDT Hospital [place] [address] [place] [address] 07/09/2024 8:30 AM EDT Appointment XRay at [address] [phone] [place] [address] 07/17/2024 8:00 AM EDT Procedure [place] [address] 08/26/2024 8:00 AM EST Office [place] [address] 08/27/2024 9:00 AM EST Clinical Support [place] [address] documented as of this encounter Procedures Procedure Name Priority Date/Time Associated Diagnosis Comments XR FLUORO BARIUM SWALLOW (SINGLE CONTRAST) Routine 07/26/2014 9:56 AM EST Esophageal reflux documented in this encounter Results * XR Fluoro Barium swallow (07/26/2014 9:56 AM EST) Anatomical Region Laterality Modality N/A Radiographic Radha ging 07/26/2014 9:56 AM EST Narrative 07/26/2014 10:40 AM EST Examination BARIUM SWALLOW Clinical History GERD s/p najel fundoplication 11/25/2012. The patient reported epigastric pain [...] No gastroesophageal reflux seen. Sheridan Cassidy MD IM FLUORO ORDERABLE S documented in this encounter Visit Diagnoses Diagnosis Esophageal reflux documented in this encounter Administered Medications Inactive Administered Medications - up to 3 most recent administrations Medication Order MAR Action Action Date Dose Rate Site barium sulfate (EZPAQUE) oral suspension 160 mL 160 mL, Oral, ONCE PRN, 1 dose, Starting on Fri07/26/14 at 1003, Until Fri07/26/14 at 0954, Per Protocol, once prn, Routine Given 07/26/2014 9:54 AM EST 160 mLs Barium Sulfate 210 % Susp 135 mL 135 mL, Oral, ONCE PRN, once prn, Starting on Fri07/26/14 at 1002, 1 dose, Until Fri07/26/14 at 0954 Given 07/26/2014 9:54 AM EST 135 mLs Barium Sulfate Tab 700 mg 700 mg, Oral, ONCE PRN, 1 dose, Starting on Fri07/26/14 at 1003, Until Fri07/26/14 at 0955, once prn, Routine Given 07/26/2014 9:55 AM EST 700 mg documented in this encounter Care Teams Converter Operator Relationship Specialty Start Date End Date Arely Arzola, SPEECH CLINICIAN [address] [place] [address] PCP - General 11/23/12 09/30/17 documented as of this encounter
--- OUTSIDE RECORDS SUMMARY | 2024-06-12 13:44 | XMS_ITS | Encounter Summary ---
[place] [address] Care Team Providers Care Junior Engineer Name Role Phone Arely Arzola James PALMA Primary Care Provider [phone] Reason for Visit * Surgical (Routine) - Closed Specialty Diagnoses / Procedures Referred By Martha broussard Referred To Contact Gastroenterology Diagnoses GERD/Queen's prior manometry in 2011 Procedures MANOMETRY ESOPHAGEAL HREM Sheridan Cassidy MD [facility] [place] [address] [facility] [address] [place] [address] Referral ID Status Reason Start Date Expiration Date Visits Re quested Visits Authorized [id number] Closed 08/01/2016 08/01/2017 1 1 Encounter Details Date Type Department Care Team (Latest Contact Info) Description 08/06/2016 9:00 AM EST Procedure [place] [address] Gastroesophageal reflux disease, esophagitis presence not specified [...] as of this encounter Progress Notes * Veronica Fraga RN - 08/06/2016 9:00 AM EST HREM catheter placed via Left nare without difficulty. Patient tolerated procedure well. documented in this encounter Plan of Treatment Upcoming Encounters Date Type Department Care Team (Late st Contact Info) Description 06/15/2024 3:00 PM EDT Hospital [place] [address] [place] [address] 07/09/2024 8:30 AM EDT Appointment XRay at [address] [address] [place] [address] 07/17/2024 8:00 AM EDT Procedure [place] [address] 08/26/2024 8:00 AM EST Office [place] [address] 08/27/2024 9:00 AM EST Clinical [place] [address] documented as of this encounter Visit Diagnoses Diagnosis Gastroesophageal reflux disease, esophagitis presence not specified documented in this encounter Care Teams Junior Engineer Relationship Specialty Start Date End Date Arely Arzola APRN [address] [place] [address] PCP - General 11/23/12 09/30/17 documented as of this encounter
--- OUTSIDE RECORDS SUMMARY | 2024-06-12 13:44 | XMS_ITS | Encounter Summary ---
Author Organization [facility] [place] [address] Care Team Providers Care Information Technology Intern Name Role Phone Arely Arzola LOUIE Primary Care Provider [phone] Encounter Details Date Type Department Care Team (Latest Contact Info) Description 09/03/2017 4:10 PM EST Laboratory Appointment Lab [address] [place] [phone] Weight gain; Gastroesophageal reflux disease, esophagitis presence not specified [...] PM EDT Hospital Encounter [place] [phone] [place] [address] 07/09/2024 8:30 AM EDT Appointment XRay at [address] [phone] [place] [address] 07/17/2024 8:00 AM EDT Procedure visit [place] [address] 08/26/2024 8:00 AM EST Office [place] [address] 08/27/2024 9:00 AM EST Clinical [place] [address] documented as of this encounter Procedures Procedure Name Priority Date/Time Associated Diagnosis Comments PTH Routine 09/03/2017 4:22 PM EST Weight gain Gastroesophageal reflux disease, esophagitis presence not specified HEMOGRAM Routine 09/03/2017 4:22 PM EST Weight gain Gastroesophageal reflux disease, esophagitis presence not specified DIFFERENTIAL, AUTOMATED Routine 09/03/2017 4:22 PM EST Weight gain Gastroesophageal reflux disease, esophagitis presence not specified CBC (WITH DIFF) Routine 09/03/2017 4:22 PM EST Weight gain Gastroesophageal reflux disease, esophagitis presence not specified TSH Routine 09/03/2017 4:22 PM EST Weight gain T4, FREE Routine 09/03/2017 4:22 PM EST Weight gain CALCIUM Routine 09/03/2017 4:22 PM EST Weight gain Gastroesophageal reflux disease, esophagitis presence not specified COMPREHENSIVE METABOLIC PANEL Routine 09/03/2017 4:22 PM EST Weight gain Gastroesophageal reflux disease, esophagitis presence not specified documented in this encounter Results * (ABNORMAL) Differential, Automated (09/03/2017 4:22 PM EST) Neutrophil % 61.6 % [facility] Neutrophil Absolute 6.36(H) 1.70 - 6.10 x10(3)/mc L [facility] Lymph % 29.1 % [facility] Lymphocytes Abs 3.0 0.9 - 3.2 x10(3)/[facility] Monocyte % 7.5 % [facility] Monocyte Abs 0.8 0.3 - 0.9 x10(3)/[facility] Eos % 1.2 % [facility] Eosinophils Abs 0.1 0.0 - 0.4 x10(3)/[facility] Basophil % 0.3 % [facility] Baso Absolute 0.0 0.0 - 0.1 x10(3)/[facility] Immature Gran % 0.30 % [facility] Comment: Immature granulocytes(IG's)percentage and absolute count will include metamyelocytes, myelocytes, and promyelocytes. Blood smears from CBCs yielding IG's will be scanned manually for concordance. If this scan disagrees with the automated IG or if promyelocytes are noted, a manual differential will be performed. Immature Gran Absolute 0.03 0.00 - 0.04 x10(3)/[facility] Blood specimen (specimen) 09/03/2017 4:22 PM EST 09/03/2017 4:29 PM EST Narrative Resulting Agency Comment Spec In Lab Ange Oreilly MD HEMATOLOGY OR DERABLES Performing Organization Address City/State/[facility] Co de Phone Number [facility] [place] [address] * (ABNORMAL) Hemogram (09/03/2017 4:22 PM EST) White Blood Cell 10.3(H) 4.0 - 9.5 x10(3)/[facility] Red Blood Cell 4.79 4.00 - 5.21 x10(6)/[facility] Hemoglobin 13.6 11.7 - 15.5 gm/dL [facility] Hematocrit 39.1 35.7 - 45.8 % [facility] Mean Cell Volume 81.6(L) 82.6 - 94.4 fL [facility] Mean Cell Hemoglobin 28.4 27.1 - 32.0 pg [facility] Mean Cell Hemoglobin Concentration 34.8 31.7 - 35.0 gm/dL [facility] Platelet 312 145 - 357 x10(3)/mc L [facility] RDW Standard Deviation 37.1 37.0 - 46.0 fL [facility] RDW coefficient of variation 12.5 11.5 - 14.1 % [facility] Mean Platelet Volume 9.7 7.6 - 12.9 fL [facility] NRBC% auto 0.0 % [facility] NRBC Absolute 0.000 0.000 - 0.000 x10(3)/mc L [facility] Blood specimen (specimen) 09/03/2017 4:22 PM EST 09/03/2017 4:29 PM EST Narrative Resulting Agency Comment Spec In Lab Ange Oreilly MD HEMATOLOGY OR DERABLES Performing Organization Address City/[facility]/ZIP Co de Phone Number [facility] [place] [address] * Calcium (09/03/2017 4:22 PM EST) Calcium 9.3 8.5 - 10.5 mg/dL [facility] Blood specimen (specimen) 09/03/2017 4:22 PM EST 09/03/2017 4:29 PM EST Narrative Resulting Agency Comment Spec In Lab Ange Oreilly MD CHEMISTRY ORD ERABLES Performing Organization Address City/[facility]/ZIP Co de Phone Number [facility] [place] [address] * PTH (09/03/2017 4:22 PM EST) Parathyroid Hormone 37 15 - 65 pg/mL [facility] Blood specimen (specimen) 09/03/2017 4:22 PM EST 09/03/2017 4:29 PM EST Narrative Resulting Agency Comment Spec In Lab Ange Oreilly MD CHEMISTRY ORD ERABLES [facility] [place] [address] * Comprehensive metabolic panel (non-fasting) (09/03/2017 4:22 PM EST) Glucose 101 65 - 199 mg/dL [facility] Comment:Diabetes: >=200 mg/d L plus symptoms Blood Urea Nitrogen 9 8 - 18 mg/dL [facility] Creatinine 0.80 0.70 - 1.20 mg/dL [facility] Sodium 144 135 - 145 mmol/L [facility] Potassium 4.0 3.5 - 5.0 mmol/L [facility] Comment: Please note: ??Patients with WBC >100,000 may have falsely elevated Potassium levels. ??For accurate Potassium quantification in these patients send serum separator tube (gold top) for subsequent determinations. ??Contact the Clinical Chemistry Laboratory if there are any questions. Chloride 105 98 - 107 mmol/L [facility] Carbon Dioxide 24 22 - 31 mmol/L [facility] Anion Gap 15 5 - 15 mmol/L [facility] Calcium 9.3 8.5 - 10.5 mg/dL [facility] Protein, Total 7.4 6.1 - 8.0 gm/dL [facility] Albumin 4.3 3.2 - 5.2 gm/dL [facility] Aspartate Aminotransferase 23 0 - 30 unit/L [facility] Alanine Aminotransferase 26 0 - 30 unit/L [facility] Alkaline Phosphatase 83 40 - 104 unit/L [facility] Bilirubin, Total 0.2 0.2 - 1.3 mg/dL [facility] Est Glomerular Filtration Rate >60 >=60 [facility] Comment: The reported eGFR should be multiplied by 1.2 for patients. The MDRD is not an appropriate measure of renal function for patients with body mass extremes or in patients with acute kidney failure. http://GraphOn/DHnkdep http://GraphOn/DHMCnkf Blood specimen (specimen) 09/03/2017 4:22 PM EST 09/03/2017 4:29 PM EST Narrative Resulting Agency Comment Spec In Lab Ange Oreilly MD CHEMISTRY ORD ERABLES Performing Organization Address [facility] Co de Phone Number [facility] [place] [address] * T4, free (09/03/2017 4:22 PM EST) Free T4 1.09 0.93 - 1.70 ng/dL [facility] Blood specimen (specimen) 09/03/2017 4:22 PM EST 09/03/2017 4:29 PM EST Narrative Resulting Agency Comment Spec In Lab Dinesh Garner MD CHEMISTRY ORDERABLES Performing Organization Address [facility] Co de Phone Number [facility] [place] [address] * TSH (09/03/2017 4:22 PM EST) Thyroid Stimulating Hormone 1.38 0.27 - 4.20 mlU/ML [facility] Blood specimen (specimen) 09/03/2017 4:22 PM EST 09/03/2017 4:29 PM EST Narrative Resulting Agency Comment Spec In Lab Dinesh Garner MD CHEMISTRY ORDERABLES Performing Organization Address [facility] Co de Phone Number [facility] [place] [address] documented in this encounter Visit Diagnoses Diagnosis Weight gain Abnormal weight gain Gastroesophageal reflux disease, esophagitis presence not specified documented in this encounter Care Teams Information Technology Intern Relationship Specialty Start Date End Date Arely Arzola, LOUIE [address] [address] PCP - General 11/23/12 09/30/17 documented as of this encounter
--- OUTSIDE RECORDS SUMMARY | 2024-06-12 13:44 | XMS_ITS | Encounter Summary ---
Author Organization [facility] Address [facility] [place] [address] Care Team Providers Care Food Preparation Supervisor Name Role Phone Laura Ross APRN Primary Care Provider [phone] Reason for Visit * Auth/Cert Specialty Diagnoses [...] Expiration Date Visits Re quested Visits Authorized [id number] 1 1 Encounter Details Date Type Department Care Team (Late st Contact Info) Description 11/26/2017 4:31 PM EDT Anesthesia [place] [address] Gloria Keys MD [facility] [place] [address] Rigoberto Knowles MD [facility] [place] [address] Anesthesia Record Procedure Summary Procedure Name Responsible Anesthesiologist Anesthesia Start Time Anesthesia Stop Time LAPAROSCOPIC REVISION OF GABRIELLA FUNDOPLASTY (WRVU 48.75) (Abdomen) Gloria Keys MD 11/26/17 1631 11/26/17 203 1 Events Date Time Event Comment 11/26/2017 1415 1631 Start 1634 AN Verify 1634 An Start Data 1637 An Induction 1639 An Intubation 1650 Anesthesia Ready 1701 Procedure Start 1815 Handoff Intra-procedure anesthesia care was transferred after review of the patient's history, current anesthetic/surgical status and plan, according to the ANES Provider Handoff Checklist. 2020 Extubation/LMA Out 2020 an stop data 2030 Recovery or ICU Handoff Candelaria ent care was transferred to the destination unit staff after review of the patient's medical history, current anesthetic/surgical status and plan, according to the Provider Handoff Checklist. 2030 Stop Meds Name Total Midazolam 2 mg fentaNYL 200 mcg IV Lidocaine 40 mg Propofol 300 mg Rocuronium 90 mg PHENYLephrine 240 mcg Ondansetron 8 mg Dexamethasone 4 mg Neostigmine 3 mg Glycopyrrolate 0.4 mg Succinylcholine 100 mg ceFAZolin (ANCEF) 2g in dextrose 5% 100 mL 4 g PHENYLephrine INF 7,670 mcg Dexmedetomidine 24 mcg HYDROmorphone 0.6 mg lactated Ringers infusion 1,000 mL 1,400 mL * Agents Name O2 Air N2O Sevoflurane (et) * Blood No blood administrations on file. Lines, Drains, and Airways Type Details Placement Removal Incision 11/25/12; abdomen (trocar sites time 4); 05/13/22 (LDA cleanup utility RA#[id number]); 1715 (LDA cleanup utility RA#[id number]) 11/25/12 0000 by Traci Mcgee RN 05/13/22 1715 by Genie Retana NG/OG Tube orogastric; mouth; 11/26/17; 1757 11/26/17 1728 by 11/26/17 1757 by Ana Maria Garces CRNA (RETIRED) Peripheral IV Line - Single Lumen 11/26/17; 1420; cephalic vein (lateral side of arm), left; 20 gauge; Jessica Hampton RN; distraction, intradermal injection, tolerated well, appears comfortable; 11/29/17; 1416 11/26/17 1420 by Jessica Hampton RN 11/29/17 1416 by Kaitlyn Buckner RN ETT Mask Ventilation: No t Attempted (0); ETT Type: Cuffed, Oral; ETT Size: 7.5 mm; Mac Blade: 3; Notes: Asleep, Pre-O2, RSI, Cricoid Pressure, Stylette; Attempts: 1; Laryngoscopy Grade: 1; ETT Placement Verified By: Auscultation, Capnometry, Visual; Secured at Teeth: 21 cm; Inserted by: kiran mckeon; Removal Date: 11/26/17; Removal Time: 202011/26/17 164 by Ana Maria Garces SCRIPT COORDINATOR 11/26/172020 by Jarvis Marks CRNA (RETIRED) Peripheral IV Line - Single Lumen 11/26/17; 1658; cephalic vein (lateral side of arm), right; 18 gauge; kiran mckeon; 11/29/17; 1416 11/26/17 1658 by Ana Maria Garces SCRIPT COORDINATOR 11/29/17 1416 by Kaitlyn Buckner RN Incision 11/26/17; 1702; abdo men; laparoscopic punctures (specify); 6 trocar port sites; 05/13/22 (LDA cleanup utility RA#[id number]); 1715 (LDA cleanup utility RA#[id number]) 11/26/17 1702 by Zahida Vuong RN 05/13/22 1715 by Genie Retana documented in this encounter Social History Tobacco [...] OR Notes * Anesthesia Postprocedure Evaluation - Gloria Keys MD - 11/26/2017 10:23 PM EDT [facility] Department of Anesthesiology Post-procedure Note Patient: Mora Bolanos Procedure Summary Date Anesthesia Start Anesthesia Stop Room / Location 11/26/171630 [facility] Procedure Diagnosis Surgeon Responsible Provider LAPAROSCOPIC REVISION OF GABRIELLA FUNDOPLASTY (WRVU *) (N/A Abdomen); LAPAROSCOPIC GASTRECTOMY, PARTIAL, W EVIN-EN-Y RECONSTRUCTION (WRVU *) (N/A Abdomen); ENDOSCOPY, UPPER GI, DIAGNOSTIC, WITH OR WITHOUT SPECIMENS (N/A ) (FAILED FUNDOPLICATION) Sheridan Cassidy MD Chinn, Christopher D, MD All Anesthesia Providers: Anesthesiologist: Gloria Keys MD; Ck Merlso MD; Rigoberto Knowles MD SCRIPT COORDINATOR: Jarvis Marks CRNA Student Nurse Cnc Maintenance Technician: Ana Maria Mckeon RN Most Recent Vitals: 11/26/172199 BP: 104/53 Pulse: 59 Resp: 13 Temp: 36.8 ??C (98.2 ??F) SpO2: 99% Pain 3 (11/26/172199) Patient Location: PACU/[facility] Level of Consciousness: Awake and Alert Pain Management: Satisfactory Analgesia PONV: None Cardiovascular Status: At Baseline and Hemodynamically Stable Respiratory Status: At Baseline and Room Air Postoperative Fluid Status: Intravascular EUvolemia Possible Anesthetic Complications: NONE apparent at time of evaluation Final Primary Anesthesia Type: General (The anesthetic type performed was the same as planned.) Comments: GLORIA KEYS MD * Anesthesia Preprocedure Evaluation - Rigoberto Knowles MD - 11/26/2017 2:12 PM EDT Images from the original note were not included. Pre-Anesthesia Evaluation for: Mora Bolanos a 42 y.o. female. Procedure(s): LAPAROSCOPIC REVISION OF GABRIELLA FUNDOPLASTY (WRVU *) LAPAROSCOPIC GASTRECTOMY, PARTIAL, W EVIN-EN-Y RECONSTRUCTION (WRVU *) ENDOSCOPY, UPPER GI, DIAGNOSTIC, WITH OR WITHOUT SPECIMENS Patient Active Problem List Diagnosis ??? Gastroesophageal reflux -EGD, 07/18/11: medium hiatal [...] retained food in stomach, otherwise normal. -EGD, [facility], Dr. Julius Zepeda, 03/15/10: small hiatal hernia noted. Distal esophagitis noted, ? [place]???s. ??? Dyspepsia ??? 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 Endometriosis of other specified sites ??? Nausea Overview: ICD10 Update Auto Replacement History reviewed. No pertinent past medical history. Past Surgical History: Procedure Laterality Date ??? PRO LAP, ESOPHAGUS, OTHER PROC 11/25/2012 LAPAROSCOPIC REVISION OF GABRIELLA FUNDOPLASTY performed by Sheridan Cassidy MD at [facility] MAIN OR ??? PRO UPPER GI ENDOSCOPY, BIOPSY 09/04/2012 EGD WITH BIOPSY performed by Didier Jones MD at [facility] ENDOSCOPY ??? PRO UPPER GI ENDOSCOPY, BIOPSY N/A 07/22/2016 UPPER GASTROINTESTINAL ENDOSCOPY,WITH BIOPSY SINGLE OR MULTIPLE performed by Sheridan Cassidy MD [facility] ENDOSCOPY ??? PRO UPPER GI ENDOSCOPY, BIOPSY N/A 10/20/2017 EGD WITH BIOPSY (WRVU 2.49) performed by Sheridan Cassidy MD at [facility] ENDOSCOPY ??? PRO UPPER GI ENDOSCOPY, DIAGNOSTIC 11/25/2012 ENDOSCOPY, UPPER GI, DIAGNOSTIC, WITH OR WITHOUT SPECIMENS [facility] ??? PRO UPPER GI ENDOSCOPY, DIAGNOSTIC 07/18/2014 EGD, UPPER GI ENDOSCOPY performed by Sheridan Cassidy MD at [facility] ENDOSCOPY ??? UPPER GI ENDOSCOPY, EXAM 09/04/2012 UPPER GI ENDOSCOPY performed by Didier Jones MD at [facility] ENDOSCOPY Social History Substance Use Topics ??? Smoking status: Former Smoker Packs/day: 1.00 Types: Cigarettes Quit date: 12/03/2003 ??? Smokeless tobacco: Never Used ??? Alcohol use No History Drug Use No Allergies Allergen Reactions ??? Onion Anaphylaxis ??? Bupropion ??? Bupropion Hcl Other (See Comments) serum sickness ??? Metoclopramide Hcl Other (See Comments) Unknown Medications: MAR and/or home medications have been reviewed. Physical Exam: Most Recent Vitals: 11/26/17 1357 BP: 133/84 Pulse: 79 Resp: 16 Temp: 37.2 ??C (99 ??F) SpO2: 97% There is no height or weight on file to calculate BMI. Airway Assessment: Mallampati: I TM distance: >3 FB Neck ROM: full Cardiovascular Assessment: cardiovascular exam normal Pulmonary Assessment: pulmonary exam normal Dental Assessment: - normal exam Misc Assessment: Anesthesia Plan: ASA 3 general, with a(n) intravenous induction Delightful 42 year-old female presenting for a laparoscopic nNissen fundoplication revision, partial gastrectomy and EGD. She still has active GERS even on medications. She has good functional tolerance, denies recent URI's and is prediabetic. She has allergies to bupropion, metoclopramide and onions. She is appropriately NPO. Plan is for a GA with ETT using an RSI. She also admits that she is very nervous about this surgery but refuses Ativan due to being agitated with it in the past. Region - Other Informed Consent: Anesthetic plan and risks discussed with patient and spouse. Plan discussed with SCRIPT COORDINATOR. PAT Staff Note documented in this encounter Plan of Treatment Upcoming Encounters Date Type Department Care Team (Late st Contact Info) Description 06/15/2024 3:00 PM EDT Hospital [place] [address] [place] [address] 07/09/2024 8:30 AM EDT Appointment XRay at [address] [phone] Alena Pizarro APRN [facility] [place] [address] 07/17/2024 8:00 AM EDT Procedure [place] [address] 08/26/2024 8:00 AM EST [place] [address] 08/27/2024 9:00 AM EST Clinical [place] [address] documented as of this encounter Visit Diagnoses Not on filedocumented in this encounter Administered Medications Inactive Administered Medications - up to 3 most recent administrations Medication Order MAR Action Action Date Dose Rate Site ceFAZolin (ANCEF) 2g in dextrose 5% 100 mL 2 g, Intravenous, EVERY 3 HOURS, 1 dose, First dose on Fri11/26/17 at 1415, Administer over 30 Minutes, Day of Surgery (Day of Procedure), Indication for (Active or Suspected): Prophylaxis Given 11/26/2017 7:59 PM EDT 2 g Given 11/26/2017 4:54 PM EDT 2 g dexamethasone (DECADRON) injection PRN, Starting on Fri11/26/17 at 1654, Until Fri11/26/17 at 2032, Anesthesia Intra-op, Routine Given 11/26/2017 4:54 PM EDT 4 mg dexmedetomidine (PRECEDEX) injection PRN, Starting on Fri11/26/17 at 1726, Until Fri11/26/17 at 2032, Anesthesia Intra-op, Routine Given 11/26/2017 6:06 PM EDT 8 mcg Given 11/26/2017 5:30 PM EDT 8 mcg Given 11/26/2017 5:26 PM EDT 8 mcg fentaNYL 50 mcg/mL multi-dose injection PRN, Starting on Fri11/26/17 at 1637, Until Fri11/26/17 at 2032, Pain, Anesthesia Intra-op, Routine Given 11/26/2017 8:28 PM EDT 50 mcg Given 11/26/2017 8:09 PM EDT 50 mcg Given 11/26/2017 4:37 PM EDT 100 mcg glycopyrrolate (ROBINUL) multi-dose injection PRN, Starting on Fri11/26/17 at 2010, Until Fri11/26/17 at 2032, Anesthesia Intra-op, Routine Given 11/26/2017 8:10 PM EDT 0.4 mg HYDROmorphone (DILAUDID) injection PRN, Starting on Fri11/26/17 at 1704, Until Fri11/26/17 at 2032, Pain, Anesthesia Intra-op, Routine Given 11/26/2017 5:04 PM EDT 0.6 mg lactated Ringers infusion 1,000 mL 1,000 mL, at 100 mL/hr, Intravenous, CONTINUOUS, Starting on Fri11/26/17 at 1415, Until Fri11/26/17 at 2004, Day of Surgery (Day of Procedure) New Bag 11/26/2017 7:56 PM EDT New Bag 11/26/2017 2:15 PM EDT 1,000 mLs 100 mL/hr lidocaine (PF) (XYLOCAINE) 100 mg/5 mL (2 %) injection PRN, Starting on Fri11/26/17 at 1637, Until Fri11/26/17 at 2032, Anesthesia Intra-op, Routine Given 11/26/2017 4:37 PM EDT 40 mg midazolam (PF) (VERSED) 1 mg/mL multi-dose injection PRN, Starting on Fri11/26/17 at 1631, Until Fri11/26/17 at 2032, Sleep, Anesthesia Intra-op, Routine Given 11/26/2017 4:31 PM EDT 2 mg neostigmine (BLOXIVERZ) injection PRN, Starting on Fri11/26/17 at 2010, Until Fri11/26/17 at 2032, Anesthesia Intra-op, Routine Given 11/26/2017 8:10 PM EDT 3 mg ondansetron (ZOFRAN) injection PRN, Starting on Fri11/26/17 at 2008, Until Fri11/26/17 at 2032, Nausea, Anesthesia Intra-op, Routine Given 11/26/2017 8:08 PM EDT 8 mg PHENYLephrine (RAS-SYNEPHRINE) 20 mg in sodium chloride 250 mL (standard ADULT & Pedi greater than 20kg) infusion CONTINUOUS PRN, Starting on Fri11/26/17 at 1715, Until Fri11/26/17 at 2004, Anesthesia Intra-op, Routine Rate/Dose Change 11/26/2017 6:17 PM EDT 50 mcg/min 37.5 mL/hr Rate/Dose Change 11/26/2017 6:07 PM EDT 20 mcg/min 15 mL/h r Rate/Dose Change 11/26/2017 6:01 PM EDT 30 mcg/min 22.5 mL /hr PHENYLephrine in NS (PF) (RAS-SYNEPHRINE) 0.8 mg/10 mL (80 mcg/mL) multi-dose injection Syrg PRN, Starting on Fri11/26/17 at 1718, Until Fri11/26/17 at 2032, Anesthesia Intra-op, Routine Given 11/26/2017 5:40 PM EDT 160 mcg Given 11/26/2017 5:18 PM EDT 80 mcg propofol (DIPRIVAN) 10 mg/mL bolus injection (Anesthesia) PRN, Starting on Fri11/26/17 at 1637, Until Fri11/26/17 at 2032, Anesthesia Intra-op Given 11/26/2017 5:04 PM EDT 50 mg Given 11/26/2017 5:01 PM EDT 50 mg Given 11/26/2017 4:37 PM EDT 200 mg rocuronium (ZEMURON) multi-dose injection PRN, Starting on Fri11/26/17 at 1650, Until Fri11/26/17 at 2032, Anesthesia Intra-op, Routine Given 11/26/2017 7:11 PM EDT 20 mg Given 11/26/2017 5:59 PM EDT 10 mg Given 11/26/2017 5:22 PM EDT 10 mg succinylcholine chloride (Quelicin) injection PRN, Starting on Fri11/26/17 at 1638, Until Fri11/26/17 at 2032, Anesthesia Intra-op, Routine Given 11/26/2017 4:38 PM EDT 100 mg documented in this encounter Care Teams Food Preparation Supervisor Relationship Specialty Start Date End Date Laura Ross APRN [address] [place] [id number] PCP - General Family Medicine 10/01/17 08/21/22 documented as of this encounter
--- OUTSIDE RECORDS SUMMARY | 2024-06-12 13:44 | XMS_ITS | Encounter Summary ---
Author Organization [facility] Address [facility] [place] [address] Care Team Providers Care Environmental Web Crawler Name Role Phone Laura Ross LOUIE Primary Care Provider [phone] Encounter Details Date Type Department Care Team (Latest Contact Info) Description 10/20/2017 12:07 PM EST - 10/20/2017 3:08 PM EST Hospital En[place] [address] Sheridan Cassidy MD [facility] [place] [address] Discharge Disposition: Home Social History Tobacco Use [...] Reading Time Taken Comments Blood Pressure 129/82 10/20/2017 2:50 PM EST Pulse 90 10/20/2017 2:25 PM EST Temperature - - Respiratory Rate 18 10/20/2017 2:50 PM EST Oxygen Saturation 97% 10/20/2017 2:50 PM EST Inhaled Oxygen Concentration - - Weight - - Height - - Body Mass Index - - documented in this encounter Discharge Instructions * Discharge Instructions* RoelJolanta ware RN - 10/20/2017 2:33 PM EST Please call [phone] before 8pm Mon-Fri with problems, questions or concerns. If you call after 8pm or on weekends, call the Hospital at [phone] and ask to speak to the Battery Service Technician publications distribution clerk and the marble cutter operator will contact that person for you. [...] better as expected. Friday-Friday Same Day Endo [phone] 7a-8p Otherwise contact [phone] and ask to speak to the open winder publications distribution clerk Follow-up care is a diaz part of [...] FUNDOPLASTY performed by Sheridan Cassidy MD at [facility] MAIN OR ??? PRO UPPER GI ENDOSCOPY, BIOPSY 09/04/2012 EGD WITH BIOPSY performed by Didier Jones MD at [facility] ENDOSCOPY ??? PRO UPPER GI ENDOSCOPY, BIOPSY N/A 07/22/2016 UPPER GASTROINTESTINAL ENDOSCOPY,WITH BIOPSY SINGLE OR MULTIPLE performed by Sheridan Cassidy MD [facility] hospital ENDOSCOPY ??? PRO UPPER GI ENDOSCOPY, DIAGNOSTIC 11/25/2012 ENDOSCOPY, UPPER GI, DIAGNOSTIC, WITH OR WITHOUT SPECIMENS [facility]?? PRO UPPER GI ENDOSCOPY, DIAGNOSTIC 07/18/2014 EGD, UPPER GI ENDOSCOPY performed by Sheridan Cassidy MD at [facility] ENDOSCOPY ??? UPPER GI ENDOSCOPY, EXAM 09/04/2012 UPPER GI ENDOSCOPY performed by Didier Jones MD at [facility] ENDOSCOPY No current facility-administered medications on [...] PM EDT Hospital [place] [address] Alena [place] [address] 07/09/2024 8:30 AM EDT Appointment XRay at [address] [address] Alena [place] [address] 07/17/2024 8:00 AM EDT Procedure [place] [address] 08/26/2024 8:00 AM EST Office [place] [address] 08/27/2024 9:00 AM EST Clinical Support [place] [address] documented as of this encounter Procedures Procedure [...] Report (10/20/2017 2:18 PM EST) Final Diagnosis [id number] ? Location: 4T; 06; A The signing pathologist has (i) examined the relevant preparation(s) for the specimen(s) and (ii) rendered or confirmed the diagnosis(es). . 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 No goblet cell metaplasia is seen. Electronically signed by: ??Stefani Roberts MD Verified: ??10/23/2017 ?Pathologist Performed at: ??-[facility] Dept. of Pathology, [place], [place] CLINICAL INFORMATION Specimen Submitted: A - Esaphagus bx at Z-line Clinical History: History of Queen 's, followup biopsy Clinical Diagnosis: Same SPECIMEN PROCESSING A - Labeled/Fixativ e: Esophagus BX at Z line 35 cm, formalin. Quantity/Size: Multiple, ranging from 0.1-0.5 cm. Tissue Description: ??Soft, pink tissues . Sections/Proces sing: (T2) ??sns 10/23/2017 11:[address] [facility] GI Biopsy 10/20/2017 2:18 PM EST 10/20/2017 2:18 PM EST Sheridan Cassidy MD PATHOLOGY/CYTOLOGY O PATRICIA Performing Organization Address [facility] Co de Phone Number [facility] [place] [address] * Specimen to Pathology (10/20/2017 2:18 PM EST) AP Specimen 10/20/2017 2:18 PM EST 10/20/2017 2:[address] [facility] - 10/20/2017 2:18 PM EST Specimen requisition ordered. ??Separate Pathology report to follow Sheridan Cassidy MD PATHOLOGY/CYTOLOGY O PATRICIA Performing Organization Address [facility]/ZIP Co de Phone Number [facility] [place] [address] * UPPER GI ENDOSCOPY (10/20/2017 1:39 PM EST) UPPER GI ENDOSCOPY [facility] Endoscopy ___ Procedure Date: 10/20/2017 1:39 PM ? Patient Name: Mora Bolanos ? Date of : 1975 ? Age: 42 ? Order #: [id number] ? Instrument Name: [id number] ? ___ Procedure: ? Upper GI endoscopy [...] the physician, the nurse and the ? automation technician in the pre-procedure area ? in [...] Procedure Code(s): ?? --- Professional --- ? 01218, Esophagogastroduode noscopy, ? flexible, transoral; with biopsy, ? single or multiple CPT copyright 2016 [employer]. All rights reserved. The codes documented in this report are preliminary and upon dye house helper review may be revised to meet current [...] PROVATION 10/20/2017 1:39 PM EST Laura Ross SNOW MAKER GENERAL SURGICAL ORD ERABLES PROVATION documented in this encounter Visit Diagnoses Not on filedocumented in this encounter Administered Medications Inactive Administered Medications - up to 3 most recent administrations Medication Order MAR Action Action Date Dose Rate Site lactated Ringers infusion 100 mL/hr, Intravenous, CONTINUOUS, Starting on Fri10/20/17 at 1245, Until Fri10/20/17 at 1458, Endoscopy (Day of Procedure) New Bag 10/20/2017 12:33 PM EST 100 mL/hr 100 mL/hr documented [...] RN) documented in this encounter Care Teams Environmental Web Crawler Relationship Specialty Start Date End Date Laura Ross APRN [address] [place], [place] [id number] PCP - General Family Medicine 10/01/17 08/21/22 documented as of this encounter
--- OUTSIDE RECORDS SUMMARY | 2024-06-12 13:44 | XMS_ITS | Encounter Summary ---
Author Organization [facility] Address [facility] [place] [address] Care Team Providers Care Playground Aide Name Role Phone Laura Ross LOUIE Primary Care Provider Encounter Details Date Type Department Care Team (Latest Contact Info) Description 10/07/2017 10:50 AM EST Office [place] [address] Sheridan Cassidy MD [facility] [place] [address] Gastroesophageal reflux disease, esophagitis presence not specified [...] Sign Reading Time Taken Comments Blood Pressure 141/86 10/07/2017 10:53 AM EST Pulse 98 10/07/2017 10:53 AM EST Temperature 36.4 ??C (97.6 ??F) 10/07/2017 1 0:53 AM EST Respiratory Rate 12 10/07/2017 10:5 3 AM EST Oxygen Saturation 98% 10/07/2017 10: 53 AM EST Inhaled Oxygen Concentration - - Weight 89.7 kg (197 lb 11.2 oz) 018 10:53 AM EST Height - - Body Mass Index 37.36 09/03/2017 1:30 PM EST documented in this encounter Progress Notes * Sheridan Cassidy MD - 10/07/2017 10:50 AM EST Mora was seen in follow-up after her endocrine workup. There is no other cause of her weight gain and she continues to have significant symptoms both of some dysphagia and horrible recurrent reflux. Given her multiple antireflux operations in the past we discussed proceeding with partial gastrectomy with a possible Analia-en-Y reconstruction since multiple fundoplications result in worsening results with each subsequent fundoplication. She is agreeable with this plan and we will proceed with her scheduled endoscopy next week and hopefully get her seen by a dietitian to prepare for potentialdietary changes associated with partial gastrectomy. documented in this encounter Plan of Treatment Upcoming Encounters Date Type Department Care Team (Late st Contact Info) Description 06/15/2024 3:00 PM EDT Hospital [place] [address] [place] [address] 07/09/2024 8:30 AM EDT Appointment XRay at [address] [address] [place] [address] 07/17/2024 8:00 AM EDT Procedure [place] [address] 08/26/2024 8:00 AM EST Office [place] [address] 08/27/2024 9:00 AM EST Clinical [place] [address] documented as of this encounter Visit Diagnoses Diagnosis Gastroesophageal reflux disease, esophagitis presence not specified documented in this encounter Care Teams Playground Aide Relationship Specialty Start Date End Date Laura Ross APRN [address] [place] [address] PCP - General Family Medicine 10/01/17 08/21/22 documented as of this encounter
--- OUTSIDE RECORDS SUMMARY | 2024-06-12 13:44 | XMS_ITS | Encounter Summary ---
Author Organization [place] [address] Care Team Providers Care Grapple Yarder Operator Name Role Phone Arely Arzola APRN Primary Care Provider Encounter Details Date Type Department Care Team (Latest Contact Info) Description 07/18/2014 10:00 AM EST Procedure [place] [address] CLINIC, Patti Ahn RN Esophageal reflux (Primary Dx) Discharge Disposition: Home Social [...] Progress Notes * Rigoberto Reid MD - 07/24/2014 11:10 AM EST ESOPHAGEAL MANOMETRY Mora Bolanos Female, 39 yrs, 1975 PCP: ARELY ARZOLA FRONT WINDOW CASHIER: NONE STUDY DATE: 07/18/14 INDICATION Reflux symptoms despite prior Magdaleno fundoplication; need to accurately place a wireless pH capsule. METHODS Stationary esophageal manometry was performed with the ClickMedix esophageal motility system utilizing the Invuity software with a 4-channel solid-state motility probe. The transducers are spaced 5 cm apart, and the distal transducer is circumferential, while the proximal three transducers are placed radially above it. Station pull-through technique is utilized to define the lower esophageal sphincter, whose resting tone is determined by the circumferential transducer. Wet swallows are performed in the body of the esophagus with the distal transducer placed 3 and 8 cm above the lower esophageal sphincter zone. The upper esophageal sphincter zone is discerned by station pull-through technique and measured using the circumferential transducer. LES (lower esophageal sphincter) Lower Border: 43 cm Upper Border: 40 cm Mid-Inspiratory Resting Pressure: 7 mmHg using the distal circumferential transducer (normal=13.5-34.5 mmHg). Water Swallows On 5 of 5 swallows the LES relaxed appropriately. Mean residual LES resting pressure was 1 mmHg (normal less than or equal to 8 mmHg). BODY OF ESOPHAGUS Water Swallows: 10 Peristaltic: 9 Not Transmitted: 1 Simultaneous: 0 Rapidly Propagated: 0 Mean Amplitude of Contraction At 3 cm above the mid portion of the LES: 55 mmHg. (normal = 30 mmHg and above) At 8 cm above the mid portion the LES: 40 mmHg. (normal = 30 mmHg and above) UES (upper esophageal sphincter) Identified at 20 cm and extended to 18 cm. UES resting pressure 50 mmHg (normal=30-150 mmHg); relaxation complete. IMPRESSION 1. Hypotensive LES. 2. Normal LES relaxation. 3. Normal UES resting pressure. 4. Normal UES relaxation. 5. Normal motility in the body of the esophagus. Rigoberto Reid, PhD, MD sand caster apprentice, [facility] [employer] Section of Gastroenterology and Hepatology [facility] [place] [address] V: [phone] F: [phone] [facility]/sunita CC/EC: PCP - fax copy 07/22/14 Enclosure: Tracing Sheridan Cassidy MD - staff msg copy 07/22/14 Enclosure: Tracing Danni Dominguez - staff msg copy 07/22/14 * Patti Plunkett RN - 07/18/2014 10:45 AM EST Esophageal manometry performed without Difficulty and was well tolerated. Bill teaching done. Study is being done off Acid suppression and this was confirmed with her. Returned to office assistant receptionist area to await EGD and Bill later today. No voiced concerns at this time. documented in this encounter Plan of Treatment Upcoming Encounters Date Type Department Care Team (Late st Contact Info) Description 06/15/2024 3:00 PM EDT Hospital [place] [address] [place] [address] 07/09/2024 8:30 AM EDT Appointment XRay at [address] [address] [place] [address] 07/17/2024 8:00 AM EDT Procedure [place] [address] 08/26/2024 8:00 AM EST Office [place] [address] 08/27/2024 9:00 AM EST Clinical [place] [address] documented as of this encounter Visit Diagnoses Diagnosis Esophageal reflux- Primary documented in this encounter Care Teams Grapple Yarder Operator Relationship Specialty Start Date End Date Arely Arzola APRN [address], [place] [address] PCP - General 11/23/12 09/30/17 documented as of this encounter
--- OUTSIDE RECORDS SUMMARY | 2024-06-12 13:44 | XMS_ITS | Encounter Summary ---
Author Organization [facility] Address [facility] [place] [address] Care Team Providers Care Boom Worker Name Role Phone Laura Ross APRN Primary Care Provider [phone] Encounter Details Date Type Department Care Team (Late st Contact Info) Description 10/20/2017 11:00 AM EST Clinical Support [place] [address] Nedra Ling, RD [facility] [place] [address] Social History Tobacco Use Types Packs/Day Years [...] Sign Reading Time Taken Comments Blood Pressure 122/71 10/20/2017 10:43 AM EST Pulse 65 10/20/2017 10:43 AM EST Temperature 36.6 ??C (97.8 ??F) 10/20/2017 10:[address] Respiratory Rate 16 10/20/2017 10:43 AM EST Oxygen Saturation 98% 10/20/2017 10:43 AM EST Inhaled Oxygen Concentration - - Weight 90.5 kg (199 lb 9.6 oz) 10/20/2017 10:43 AM EST Height - - Body Mass Index 37.71 09/03/2017 1:30 PM EST documented in this encounter Progress Notes * Nedra Ling RD - 10/20/2017 11:00 AM EST NUTRITION EDUCATION Ms. Bolanos has been referred for nutrition education regarding potential dietary changes associated with partial gastrectomy. SUBJECTIVE: Social History: Not currently working. Plans to go back to work. Moved back to [place] from [place] in June 2017. Support for after surgery: to help out after surgery. Typical Daily Intake: Currently tracking her intake using My Fitness Pal Breakfast yogurt Snack Apple or banana Lunch Salad with chicken Snack Mozzarella stick OR apple and PB Supper 2-3 oz chicken, roasted peppers and a few red potatoes Snacks Cottage cheese with peaches Beverages: coffee with creamer, PowerAde Zero ETOH: None. Tobacco: none. Supplements/Vitamins: MVM, vitamin D 32,000 International Units every other day Physical Activity: elliptical 3 x week for 20 minutes. Enjoys running. Would love to get back to running 1/2 marathons. OBJECTIVE: Height: 61 Weight: 199.6# BMI: 37.7 ASSESSMENT/PLAN: Pt currently eats a healthy meal plan as evidenced by dietary recall. Pt was instructed to follow a preoperative diet for 1-2 weeks before surgery. Reviewed potential dietary changesafter surgery. Pt had the opportunity to have all of her questions answered. She was provided with a handout detailing dietary considerations s/p partial gastrectomy. She was provided protein powders/drinks to aid in meeting protein needs in the early post-operative period. Provided my contact information for any questions. F/u at 1 month post-op. Nutrition Topics Covered at Today's Appointment: ?? Pre-operative Surgical Diet ?? Purpose of diet ?? Appropriate foods ?? Protein goals ?? Carbohydrate goals ?? Calorie goals ?? Keeping a food log ?? Hydration and Appropriate Beverages ?? Post-Operative Diets (Stages I-IV) ?? Importance of following diet stages ?? Appropriate foods ?? Sample Menus ?? Vitamin/Mineral Supplementation ?? Common Food Intolerances ?? Dumping Syndrome ?? Sugar Alcohols ?? Physical Activity The appointment consisted of 60 minutes of counseling. documented in this encounter Plan of Treatment Upcoming Encounters Date Type Department Care Team (Late st Contact Info) Description 06/15/2024 3:00 PM EDT Hospital [place] [address] Alena Pizarro ASSISTANT [place] [address] 07/09/2024 8:30 AM EDT Appointment XRay at [address] [address] [place] [address] 07/17/2024 8:00 AM EDT Procedure [place] [address] 08/26/2024 8:00 AM EST Office [place] [address] 08/27/2024 9:00 AM EST Clinical [place] [address] documented as of this encounter Visit Diagnoses Not on filedocumented in this encounter Care Teams Boom Worker Relationship Specialty Start Date End Date Laura Ross APRN [address] [place] [address] PCP - General Family Medicine 10/01/17 08/21/22 documented as of this encounter
--- OUTSIDE RECORDS SUMMARY | 2024-06-12 13:44 | XMS_ITS | Encounter Summary ---
Author Organization [facility] Address [facility] [place] [address] Care Team Providers Care Pin Inserter Name Role Phone Arely Arzola LOUIE Primary Care Provider [phone] Encounter Details Date Type Department Care Team (Late st Contact Info) Description 07/18/2014 2:30 PM EST - 07/18/2014 3:00 PM EST [place] [address] Sheridan Cassidy MD [facility] [place] [address] EGD, UPPER GI ENDOSCOPY (WRVU 2.09) Social [...] 3:14 PM EST UPPER GI ENDOSCOPY with Bill PH Capsule and Biopsies What to expect [...] Other Instructions Be sure to carry your client account specialist within 3 feet at all times . [...] or concerns, please call us Friday-Friday Clinic [phone] 8a-5p Same Day Endo [phone] 7a-8p Otherwise contact [phone] and ask to speak to the washing machine loader and puller data consultant. Patti Plunkett RN [phone] if any problems with client account specialist Discharge instructions reviewed with patient who expresses [...] ENDOSCOPY performed by Didier Jones MD at [facility] ENDOSCOPY ??? Upper gi endoscopy, biopsy 09/04/2012 EGD WITH BIOPSY performed by Didier Jones MD at [facility] ENDOSCOPY ??? Lap, esophagus, other proc 11/25/2012 LAPAROSCOPIC REVISION OF GABRIELLA FUNDOPLASTY performed by Sheridan Cassidy MD at [facility] MAIN OR ??? Upper gi endoscopy, diagnostic 11/25/2012 ENDOSCOPY, UPPER GI, DIAGNOSTIC, WITH OR WITHOUT SPECIMENS [facility] Meds: None Allergies Allergen Reactions [...] History Narrative ??? No narrative on file travel guide in [place] Patient Vitals for the past 24 hrs: [...] PM EDT Hospital [place] [address] Alena Pizarro [place] [address] 07/09/2024 8:30 AM EDT Appointment XRay at [address] [address] [place] [address] 07/17/2024 8:00 AM EDT Procedure [place] [address] 08/26/2024 8:00 AM EST Office [place] [address] 08/27/2024 9:00 AM EST Clinical [place] [address] documented as of this encounter Procedures Procedure Name Priority Date/Time Associated Diagnosis Comments EGD, UPPER GI ENDOSCOPY (WRVU 2.09) 07/18/2014 2:24 PM EST S/P GABRIELLA UPPER GI ENDOSCOPY Routine 07/18/2014 2: 19 PM EST documented in this encounter Results * UPPER GI ENDOSCOPY (07/18/2014 2:19 PM EST) UPPER GI ENDOSCOPY [facility] Endoscopy ___ Patient Name: Mora Bolanos ? Procedure Date: 07/18/2014 2:19 PM ? N: [id number] ? Date of : 1975 ? Age: 39 ? Order #: [id number] ? ___ Procedure: ? Upper GI endoscopy Indications: ? Esophageal reflux symptoms that recur ? despite appropriate therapy Providers: ? Sheridan Cassidy MD, Patti Nevarez, ? RN, Cj Cordova, Line Fixer Referring : ?Arely Arzola [facility]: ? Fentanyl 250 micrograms IV, Midazolam ? [...] noted in the entire esophagus. ? The BILL capsule with delivery system was introduced ? through the mouth and advanced into the esophagus, ? such that the BILL pH capsule was positioned 35 cm ? from the incisors, which was 6 cm proximal to the EG ? junction. The BILL pH capsule was then deployed and ? attached to the esophageal mucosa. The delivery ? system was then withdrawn. Endoscopy was utilized for ? probe placement and diagnostic evaluation. ? Impression: ?- Z-line irregular, 35 cm from the ? incisors. ? - Normal examined duodenum. ? - No gross lesions in esophagus. ? - The BILL pH capsule was deployed. Procedure Code(s): ?? --- Professional --- ? 82603, Upper gastrointestinal ? endoscopy including esophagus, ? stomach, and either the duodenum ? and/or jejunum as appropriate; ? diagnostic, with or without ? collection of specimen(s) by brushing ? or washing (separate procedure) CPT (R) 2012 [place] [employer]. All Rights Reserved. The codes documented in this report are preliminary and upon pole peeling machine operator review may be revised to meet current compliance requirements. Sheridan Cassidy MD 07/18/2014 3:02 PM This report has been signed electronically. Number of Addenda: 0 Note Initiated On: 07/18/2014 2:19 PM PROVATION 07/18/2014 2:19 PM EST Arely Ramirez Dariusz LOUIE GENERAL SURGICAL ORD ERABLES PROVATION documented in this encounter Visit Diagnoses Not on filedocumented in this encounter Administered Medications Inactive Administered Medications - up to 3 most recent administrations Medication Order MAR Action Action Date Dose Rate Site diphenhydrAMINE (BENADRYL) injection ONCE PRN, Starting on Fri07/18/14 at 1443, Until Fri07/18/14 at 1855, Itching, Intra-Operative (Intra-Procedure), Routine Given 07/18/2014 2:46 PM EST 25 mg Right Arm Given 07/18/2014 2:43 PM EST 25 mg Ri ght Arm fentaNYL 50mcg/mL injection ONCE PRN, Starting on Fri07/18/14 at 1433, Until Fri07/18/14 at 1855, Pain, Intra-Operative (Intra-Procedure), Routine Given 07/18/2014 2:52 PM EST 50 mcg Right Arm Given 07/18/2014 2:43 PM EST 50 mcg Ri ght Arm Given 07/18/2014 2:39 PM EST 50 mcg Ri ght Arm lactated ringers infusion 100 mL/hr, Intravenous, CONTINUOUS, Starting on Fri07/18/14 at 1345, Until Fri07/18/14 at 1855, Endoscopy (Day of Procedure) New Bag 07/18/2014 1:25 PM EST 100 mL/hr 100 mL/hr midazolam (PF) (VERSED) 1 mg/mL injection ONCE PRN, Starting on Fri07/18/14 at 1433, Until Fri07/18/14 at 1855, Sleep, Intra-Operative (Intra-Procedure), Routine Given 07/18/2014 2:53 PM EST 1 mg Right Arm Given 07/18/2014 2:44 PM EST 1 mg Ri ght Arm Given 07/18/2014 2:41 PM EST 1 mg Ri ght Arm documented in [...] - Comment: starting sedation)1436 (Given - Provider: aPtti Nevarez RN - Comment: continuing sedation)1439 (Given [...] uncomfortable) documented in this encounter Care Teams Pin Inserter Relationship Specialty Start Date End Date Arely Arzola APRN [address], [place] [address] PCP - General 11/23/12 09/30/17 documented as of this encounter
--- OUTSIDE RECORDS SUMMARY | 2024-06-12 13:45 | XMS_ITS | Encounter Summary ---
Author Organization [facility] Address [address] [place] [address] Care Team Providers Care Laser Set Up Operator Name Role Phone Cayla Yeager STAGE SETTING PAINTER APPRENTICE Primary Care Provider [phone] Reason for Visit * Reason Comments Abdominal Pain Pt reports seeing sp ots and having unclear vision in her left eye x 2 days. Pt arrives with a copy of her MRI done about one week ago. Pt also reports ongoing abd pain and back pain. Pt reports taking 800mg Ibuprofen x 3 tablets today. Back Pain Eye Pain Encounter Details Date Type Department Care Team (Late st Contact Info) Description 09/25/2009 15:24 EST - 09/25/2009 17:55 EST Emergency [facility] Emergency Department - [facility] [address] [place] [address] Maj Bajwa MD [address] [place] [id number] Emergency, MD Efren Abdominal pain; Visual color changes Discharge Disposition: Home or Self Care Social History Tobacco Use Types Packs/Day Years Used Date Smoking Tobacco: Never Comments:no Alcohol Use Standard Drinks/Week Comments No 0 (1 standard drink = 0.6 oz pur e alcohol) no Sex and Gender Information Value Date Recorded Sex Assigned at Not on file Gender Identity Not on file Sexual Orientation Not on file documented as of this encounter Last Filed Vital Signs Vital Sign Reading Time Taken Comments Blood Pressure 125/93 09/25/2009 1526 EST Pulse 94 09/25/2009 1526 EST Temperature 36.4 ??C (97.5 ??F) 09/25/2009 1526 EST Respiratory Rate 16 09/25/2009 1526 EST Oxygen Saturation 97% 09/25/2009 1526 EST Inhaled Oxygen Concentration - - Weight - - Height - - Body Mass Index - - documented in this encounter Discharge Instructions * Discharge Instructions* Maj Bajwa MD - 09/25/2009 17:35 EST Images from the original note were not included. Please return if worsening symptoms or any new concerns. Return if eye pain, visual loss, fever, weakness. See opthalmology in followup. Please see Pain management and orthopedics on 09/27 as planned.Please see your doctor tomorrow for assistance in analgesic prescription refills; consider neurology evaluation for possible migraine. [facility] Patient Instructions Abdominal Pain: After Your Visit to the Emergency Room Your Care Instructions Many abdominal problems can cause belly pain. Some are not serious and get better on their own in afew days. Other abdominal problems need more testing and emergency treatment. Your doctor may have recommended a follow-up visit in the next 8 to 12 hours. If you are not getting better, you may needmore tests or treatment. Even though you have been released from the emergency room, you still need to watch for any problems. The doctor carefully checked you. But sometimes problems can develop later. If you have new symptoms, or if your symptoms do not get better, return to the emergency room or call your doctor right away. A visit to the emergency room is only one step in your treatment. Even if you feel better, you still need to do what your doctor recommends, such as going to all suggested follow-up appointments and taking medicines exactly as directed. How can you care for yourself at home? ?? Rest until you feel better. Drink plenty of fluids to prevent dehydration. Choose water and other caffeine- free clear liquids until you feel better. If you have kidney, heart, or liver disease and have to limit fluids, talk with your doctor before you increase the amount of fluids you drink. Take your medicines exactly as directed. Call your doctor if you think you are having a problem with your medicine. Do not drive after taking a prescription pain medicine. When should you call for help? Call 911 if: ?? You pass out (lose consciousness). You have sudden chest pain and shortness of breath, or you cough up blood. You pass maroon or very bloody stools. You vomit blood or what looks like coffee grounds. You have new, severe belly pain. You have other symptoms that you think are a medical emergency. Return to the emergency room now if: ?? You feel weak and lightheaded. Your pain becomes focused in one area of your belly. Your belly pain is worse after you cough or move. You have a new or higher fever. Call your doctor today if: ?? Your stools are black and tarlike or have streaks of blood. You have new, unusual bleeding or discharge from the vagina. You have blood in your urine, it hurts when you urinate, or you have to urinate more often than usual. Your belly pain has not improved after 1 day. Where can you learn more? Go to www.[employer].net/fahc Enter D163 in the search box to learn more about Abdominal Pain: After Your Visit to the EmergencyRoom. ?? 2005 - 2008 [employer]. Care instructions adapted under license by [facility], [facility] . This care instruction is for use with your licensed healthcare professional. If you have questions about a medical condition or this instruction, always ask your healthcare professional. [employer] disclaims any warranty or liability for your use of this information. documented in this encounter Medications at Time of Discharge Medication Sig Dispensed Refills Start Date End Date acetaminophen (TYLENOL) 500 mg tablet Take 2 Tabs by mouth as needed for Pain. Last dose 3 hrs ago IBUPROFEN ORAL Take by mouth as needed. oxycodone-acetaminophen (PERCOCET) 5-325 mg per tablet Take 1 Tab by mouth every 4 hours as needed for Pain. 15 Tab 0 08/06/2009 pantoprazole (PROTONIX) 20 mg tablet Take 2 Tabs by mouth daily. 30 Tab 0 08/05/2009 PEG 3350-Electrolytes (MIRALAX) 17 gram packet Take 17 g by mouth daily. documented as of this encounter Discharge Disposition Disposition Code Departure Means Destination Home or Self Care documented in this encounter ED Notes * Krystyna Lyles RN - 09/26/2009 0716 EST Pt declined her Percocet starter pack, returned to the [facility]. * Krystyna Conley RN - 09/25/2009 1643 EST Rt eye 20/20 lt ey 20/30 * Maj Bajwa MD - 09/25/2009 1559 EST DOS: 09/25/2009 Chief Complaint Patient presents with ??? Abdominal Pain Pt reports seeing spots and having unclear vision in her left eye x 2 days. Pt arrives with a copy of her MRI done about one week ago. Pt also reports ongoing abd pain and back pain. Pt reports taking 800mg Ibuprofen x 3 tablets today. ??? Back Pain ??? Eye Pain HPI Comments: Abdominal pain with extensive recent workup: normal RUQ and pelvic US, normal CTabdomen, UGI with no gastric outlet obstruction but with retained food in stomach suggestive of delayed emptying, MRI T spine (done due to fact that pain radiates around to back) normal. Has seen Dr. Fitzgerald surgery without clear diagnosis. Has [facility]. Pt notes 6-8 weeks history of occasional right leg numbness which is resolved with changes of position, it was for this recent MRI was done. Also notes 2 week history of wavy vision in left eye with nausea, no headache, usually for several hours then resolves. States that occasionally she cannot see out of left eye at all, but can at present. No deep eye pain or flashing lights. Notes the wavy vis ion is persistent today, and that she has been out of percocet for 2 days; took 3 ibuprofen Withoutrelief. Patient is a 34 y.o. female presenting with abdominal pain, back pain, and eye pain. The history isprovided by the patient. Abdominal Pain This is a chronic problem. The current episode started more than 1 week ago. The problem occurs constantly. The problem has not changed since onset. The pain is associated with an unknown factor. Thepain is located in the generalized abdominal region. The pain is moderate. Associated symptoms include nausea and headaches. Pertinent negatives include no anorexia, no fever, no belching, no diarrhea, no flatus, no melena, no vomiting, no constipation, no dysuria, no hematuria, no arthralgias and no myalgias. Nothing worsens the symptoms. Relieved by: percocet. Past workup includes CT scan and ultrasound. surgical consult endometriosis and hysterectomy. Back Pain Associated symptoms include headaches and abdominal pain. Pertinent negatives include no chest pain, no fever and no dysuria. Eye Pain Associated symptoms include nausea. Pertinent negatives include no vomiting. Review of Systems Constitutional: Negative for fever and chills. HENT: Negative for neck stiffness. Eyes: Negative for pain and visual disturbance. Respiratory: Negative for shortness of breath. Cardiovascular: Negative for chest pain. Gastrointestinal: Positive for nausea and abdominal pain. Negative for vomiting, diarrhea, constipation and melena. Genitourinary: Negative for dysuria and hematuria. Musculoskeletal: Positive for back pain. Negative for myalgias and arthralgias. Skin: Negative for rash. Neurological: Positive for headaches. Psychiatric/Behavioral: Negative for confusion. All other systems reviewed and are negative. Past Medical History Diagnosis Date ??? Endometriosis c cyst removal Past Surgical History Procedure Date ??? section ??? Abdomen surgery 3 laproscopic surgeries and 1 surgery to remove a endometrial mass ??? Knee surgery x 5 Allergies Allergen Reactions ??? Wellbutrin (Bupropion) History Substance Use Topics ??? Tobacco Use: Never no ??? Alcohol Use: No no History reviewed. No pertinent family history. BP 125/93 Pulse 94 Temp(Src) 36.4 ??C (97.5 ??F) (Tympanic) Resp 16 SpO2 97% Physical Exam Nursing note and vitals reviewed. Constitutional: She appears well-developed and well-nourished. HENT: Head: Normocephalic and atraumatic. Right Ear: External ear normal. Left Ear: External ear normal. Nose: Nose normal. Eyes: Extraocular motions are normal. Pupils are equal, round, and reactive to light. Right eye exhibits no discharge. Left eye exhibits no discharge. Normal fundoscopic. No evidence detachment. No lesions. Martinez full to confrontation. Visual acuity as per Nursing. Neck: Normal range of motion. Neck supple. No tracheal deviation present. Cardiovascular: Normal rate, regular rhythm and normal heart sounds. Pulmonary/Chest: No respiratory distress. Abdominal: Soft. No tenderness (mild diffuse). Musculoskeletal: Normal range of motion. Neurological: She is alert. She has normal strength. No cranial nerve deficit or sensory deficit. Skin: No rash noted. Psychiatric: She has a normal mood and affect. Radiology orders: None Procedures ED Course: Offered reglan for rx of both possible migraine and delayed gastric emptying. Declines same, notes she does not believe in migraine medicine as has long history with this problem. States her doctor was hopeful that we could give her some pain medicine, and that she can see her doctor tomorrow. Chart review: Sep 2007 noted vision loss, posterior headache, and weakness flexion extension: MRI and MRA normal at [facility] Stable in ED, counselled re need for followup with opthalmology and with PMD as well as pain management as already set up. Given starter pack of analgesia. Discharge Prescriptions New Prescriptions No Discharge Prescriptions for this patient MDM Encounter Diagnoses Code Name Primary? Qualifier ??? 789.00AP Abdominal pain ??? 368.59AC Visual color changes Note: color edited out. PCP: KAVYA MAHMOOD 09/25/2009 3:59 PM documented in this encounter Miscellaneous Notes * Scanned Note-Null - Inpatient, Physician - 09/27/2009 0829 EST documented in this encounter Plan of Treatment Not on file documented as of this encounter Visit Diagnoses Diagnosis Abdominal pain Abdominal pain, unspecified site Visual color changes Other color vision deficiencies documented in this encounter Administered Medications Inactive Administered Medications - up to 3 most recent administrations Medication Order MAR Action Action Date Dose Rate Site Oxycodone w APAP?? 5- 325 mg Tab STARTER PACK 1 Package, oral, NOW X1, 1 dose, On 09/25/09 at 1815, STAT Given 09/25/2009 18:15 EST 1 Package documented in this encounter Discontinued Medications Medication Sig Discontinue Reason Start Date End Da te meclizine (ANTIVERT) 25 mg tablet Take 25 mg by mouth daily as needed. Therapy completed 09/25/2009 hydrocodone-acetaminophe n (VICODIN) 5-500 mg per tablet Take 1-2 Tabs by mouth every 6 hours as needed for Pain. Therapy completed 08/21/2009 09/25/2009 docusate sodium (COLACE) 250 mg capsule Take 1 Cap by mouth 2 times daily. Therapy completed 08/05/2009 09/25/2009 documented as of this encounter Historical Medications * This list may reflect changes made after this encounter. Medication Sig Dispensed Refills Start Date End Date PEG 3350-Electrolytes (MIRALAX) 17 gram packet Take 17 g by mouth daily. added in this encounter Active and Recently Administered Medications Times are shown in EST. Scheduled Medication Order 09/23/2009 09/24/2009 09/25/2009 Oxycodone w APAP?? 5- 325 mg Tab STARTER PACK (COMPLETED) 1 Package, oral, NOW X1, 1 dose, On 09/25/09 at 1815, STAT 1815 (Given - Provid er: Krystyna Conley RN) documented in this encounter Care Teams Laser Set Up Operator Relationship Specialty Start Date End Date Cayla Yeager FNP [address] [place] [address] PCP - General 05/30/09 documented as of this encounter
--- OUTSIDE RECORDS SUMMARY | 2024-06-12 13:45 | XMS_ITS | Encounter Summary ---
Author Organization [facility] Address [address] [place] [address] Care Team Providers Care Dining Host Name Role Phone Cayla Yeager Primary Care Provider [phone] Encounter Details Date Type Department Care Team (Latest Contact Info) Description 11/13/2009 17:05 EST - 11/13/2009 23:59 EST Hospital Encounter [facility] [id number] [place] [address] Cayla Yeager, KAVYA [address] [place], [place] [id number] Discharge Disposition: Home or Self Care Social [...] Code Departure Means Destination Home or Self [facility]ci documented in this encounter Plan of Treatment Not on file documented as of this encounter Procedures Procedure Name Priority Date/Time Associated Diagnosis Comments ZZCA 125 Routine 11/13/2009 17:20 EST documented in this encounter Results * CA 125 (11/13/2009 17:20 EST) CA 125 13 0 - 35 U/ml [facility] Comment: Serum CA125 concentrations should not be interpreted as absolute evidence for the presence or absence of malignant disease. Assayed utilizing [employer] technology. Values obtained by using different assay methods cannot be used interchangeably. [phone] 11/13/2009 17:2 0 EST 11/13/2009 17:22 EST Cayla HOFF CHEMISTRY & BLOOD GAS ORDERABLES Performing Organization Address City/State/[facility] Co de Phone Number [facility] [address] [place] [address] documented in this encounter Visit Diagnoses Not on filedocumented in this encounter Care Teams Dining Host Relationship Specialty Start Date End Date Cayla Yeager FNP [address] [place] [address] PCP - General 05/30/09 documented as of this encounter
--- OUTSIDE RECORDS SUMMARY | 2024-06-12 13:45 | XMS_ITS | Encounter Summary ---
Author Organization [facility] [place] [place] [address] Care Team Providers Care Clearance Center Manager Name Role Phone Cayla Yeager LOUIE Primary Care Provider + Encounter Details Date Type Department Care Team (Late st Contact Info) Description 09/27/2010 4:30 PM EST Office Visit [place] [address] Mary Grace Ortega [facility] [place] [address] Discharge Disposition: Home Social History Tobacco Use Types Packs/Day Years Used Date Smoking Tobacco: Never Assessed Sex and Gender Information Value Date Recorded Sex Assigned at Not on file Gender Identity Not on file Sexual Orientation Not on file documented as of this encounter Plan of Treatment Upcoming Encounters Date Type Department Care Team (Late st Contact Info) Description 06/15/2024 3:00 PM EDT Hospital Encounter [place] [address] Alena Pizarro PASSPORT SUPPORT ASSOCIATE [facility] [place] [address] 07/09/2024 8:30 AM EDT Appointment XRay at [address] [phone] [place] [address] 07/17/2024 8:00 AM EDT Procedure visit [place] [address] 08/26/2024 8:00 AM EST Office [place] [address] 08/27/2024 9:00 AM EST Clinical [place] [address] documented as of this encounter Visit Diagnoses Not on filedocumented in this encounter Care Teams Clearance Center Manager Relationship Specialty Start Date End Date Cayla Yeager APRN [address] [place] [address] PCP - General 08/28/10 10/01/10 documented as of this encounter
--- OUTSIDE RECORDS SUMMARY | 2024-06-12 13:45 | XMS_ITS | Encounter Summary ---
Author Organization [facility] [place] [address] Care Team Providers Care Ecological Technical Officer Name Role Phone Kasey Rader MD Primary Care Provider [phone] Encounter Details Date Type Department Care Team (Late st Contact Info) Description 01/11/2011 Abstract [place] [address] Rigoberto Reid MD [facility] [address] [place] [address] Social History Tobacco Use Types Packs/Day Years [...] PM EDT Hospital [place] [address] Alena Pizarro APRN [facility] [place] [address] 07/09/2024 8:30 AM EDT Appointment XRay at [address] [phone] Alena Pizarro APRN [facility] [place] [address] 07/17/2024 8:00 AM EDT Procedure visit [place] [address] 08/26/2024 8:00 AM EST Office [place] [address] 08/27/2024 9:00 AM EST Clinical [place] [address] documented as of this encounter Visit Diagnoses Not on filedocumented in this encounter Care Teams Ecological Technical Officer Relationship Specialty Start Date End Date Kasey Rader MD [address] [place] [address] PCP - General 10/02/10 11/22/12 documented as of this encounter
--- OUTSIDE RECORDS SUMMARY | 2024-06-12 13:45 | XMS_ITS | Encounter Summary ---
Author Organization [facility] Address [address] [place] [address] Care Team Providers Care Building Superintendent Name Role Phone Cayla Yeager KAVYA Primary Care Provider [phone] Encounter Details Date Type Department Care Team (Latest Contact Info) Description 01/06/2010 10:01 EDT - 01/06/2010 23:59 EDT Hospital Encounter [facility] [address] [place] [address] Opal Thapa MD [address] [place] [phone] Discharge Disposition: Home or Self Care Social [...] Code Departure Means Destination Home or Self Fdc documented in this encounter Plan of Treatment Not on file documented as of this encounter Procedures Procedure Name Priority Date/Time Associated Diagnosis Comments LYME AB Routine 01/06/2010 10:04 EDT NIKOLE TITER Routine 01/06/2010 10:04 EDT COMPLETE BLOOD COUNT AND DIFFERENTIAL Routine 01/06/2010 10:04 EDT ANTI NUCLEAR AB (NIKOLE), IFA Routine 01/06/2010 10:04 EDT FOLATE Routine 01/06/2010 10:04 EDT VITAMIN B12 Routine 01/06/2010 10:04 EDT COMPREHENSIVE METABOLIC PANEL (CMP) Routine 01/06/2010 10:04 EDT documented in this encounter Results * (ABNORMAL) NIKOLE TITER (01/06/2010 10:04 EDT) NIKOLE Titer 160(H) 0 - 40 dils [facility] Comment:Speckled pattern 01/06/2010 10:0 4 EDT 01/06/2010 10:05 EDT Opal Thapa MD IMMUNOLOGY AND SEROL OGY ORDERABLES [facility] [address] [place] [address] * VITAMIN B12 (01/06/2010 10:04 EDT) Vitamin B-12 534 211 - 911 pg/ml [facility] Blood specimen (specimen) 01/06/2010 10:04 EDT 01/06/2010 10:05 EDT Opal Thapa MD CHEMISTRY & BLOOD GA S ORDERABLES [facility] [address] [place] [address] * FOLATE (01/06/2010 10:04 EDT) Pathologist [facility] Folate 15.2 ng/mL [facility] Comment: Deficient: ??Less than 3.4 ng/mL Indeterminate: ??3.4-5.4 ng/mL Normal: ??Greater than 5.4 ng/mL Blood specimen (specimen) 01/06/2010 10:04 EDT 01/06/2010 10:05 EDT Opal Thapa MD CHEMISTRY & BLOOD GA S ORDERABLES Performing Organization Address [facility] Co de Phone Number [facility] [address] [place] [address] * ANTI NUCLEAR ANTIBODY (01/06/2010 10:04 EDT) Pathologist [facility] Anti Nuclear Ab Positive at 40 dils, titer to follow. 0 - 40 Dils [facility] Blood specimen (specimen) 01/06/2010 10:04 EDT 01/06/2010 10:05 EDT Opal Thapa MD IMMUNOLOGY AND SEROL OGY ORDERABLES Performing Organization Address [facility] Co de Phone Number [facility] [address] [place] [address] * (ABNORMAL) COMPREHENSIVE METABOLIC PANEL (01/06/2010 10:04 EDT) Pathologist [facility] Potassium 4.3 3.5 - 5.0 mEq/L [facility] Sodium 144 136 - 145 mEq/L [facility] Chloride 107 96 - 110 mEq/L [facility] CO2 26 24 - 32 mEq/L [facility] Total Alkaline Phosphatase 60 38 - 126 U/L [facility] Bilirubin, Total <0.5 0.2 - 1.3 mg/dl [facility] AST 22 15 - 46 U/L [facility] ALT 22 9 - 52 U/L [facility] Albumin 4.5 3.4 - 4.9 g/dl [facility] Total Protein 7.0 6.5 - 8.3 g/dl [facility] Creatinine 0.67(L) 0.7 - 1.5 mg/dl [facility] GFR, Calculated >60 ml/min/1.7 3m2 [facility] BUN 11 10 - 26 mg/dl [facility] Calcium 9.7 8.5 - 10.5 mg/dl [facility] Calculated Calcium 9.6 8.5 - 10.5 mg/dl [facility] Glucose, Serum 64(L) 70 - 100 mg/dl [facility] Fasting? Yes [facility] Blood specimen (specimen) 01/06/2010 10:04 EDT 01/06/2010 10:05 EDT Opal Thapa MD CHEMISTRY & BLOOD GA S ORDERABLES Performing Organization Address [facility] Co de Phone Number [facility] [address] [place] [address] * LYME AB (01/06/2010 10:04 EDT) Lyme AB Interpretatio n: Negative Reference Range: Negative [facility] Blood specimen (specimen) 01/06/2010 10:04 EDT 01/06/2010 10:05 EDT Opal Thapa MD IMMUNOLOGY AND SEROL OGY ORDERABLES Performing Organization Address [facility] Co de Phone Number [facility] [address] [place] [address] * HEMAGRAM AND DIFFERENTIAL (01/06/2010 10:04 EDT) WBC 8.11 4.0 - 12.4 K/cmm [facility] RBC 4.88 3.86 - 5.04 M/cmm [facility] Hemoglobin 13.8 11.6 - 15.2 gm/dl [facility] HCT 40.9 34.9 - 44.4 % [facility] MCV 84 81 - 98 fl [facility] MCH 28.2 26.7 - 33.3 pg [facility] MCHC 33.7 32.1 - 35.9 gm/dl [facility] PLT 247 141 - 320 K/cmm [facility] RDW-CV 13.3 11.7 - 14.6 % [facility] % Neutrophils 62.3 45.5 - 79.7 % [facility] % Lymphocytes 28.6 15.0 - 46.8 % [facility] % Monocytes 7.3 1.8 - 12.0 % [facility] % Eosinophils 1.4 0.6 - 6.9 % [facility] % Basophils 0.4 0.2 - 1.4 % [facility] ABS Neutrophils 5.06 2.20 - 8.85 K/cmm [facility] ABS Lymphs 2.32 1.09 - 3.30 K/cmm [facility] ABS Monocytes 0.59 0.1 - 0.8 K/cmm [facility] ABS Eosinophils 0.11 0.03 - 0.61 K/cmm [facility] ABS Basophils 0.03 0.01 - 0.11 K/cmm [facility] Type of Diff: Automated [facility] Blood specimen (specimen) 01/06/2010 10:04 EDT 01/06/2010 10:05 EDT Opal Thapa MD PACKAGES & DNA PROBE ORDERABLES [facility] [address] [place] [address] documented in this encounter Visit Diagnoses Not on filedocumented in this encounter Care Teams Building Superintendent Relationship Specialty Start Date End Date Cayla Yeager FNP [address] [place] [address] PCP - General 05/30/09 documented as of this encounter
--- OUTSIDE RECORDS SUMMARY | 2024-06-12 13:45 | XMS_ITS | Encounter Summary ---
Author Organization [facility] [place] [address] Care Team Providers Care Customer Service Representative Teller Name Role Phone Cayla Yeager APRN Primary Care Provider + Encounter Details Date Type Department Care Team (Latest Contact Info) Description 09/17/2010 8:00 AM EST Procedure [place] [address] CLINIC, Patti Ahn, pit shovel operator Disposition: Home Social History Tobacco Use Types [...] PM EDT Hospital [place] [address] Alena Pizarro GREEN HOUSE MANAGER [facility] [place] [address] 07/09/2024 8:30 AM EDT Appointment XRay at [address] [phone] Alena Pizarro GREEN HOUSE MANAGER [facility] [place] [address] 07/17/2024 8:00 AM EDT Procedure [place] [address] 08/26/2024 8:00 AM EST Office [place] [address] 08/27/2024 9:00 AM EST Clinical [place] [address] documented as of this encounter Visit Diagnoses Not on filedocumented in this encounter Care Teams Customer Service Representative Teller Relationship Specialty Start Date End Date Cayla Yeager APRN [address] [place] [address] PCP - General 08/28/10 10/01/10 documented as of this encounter
--- OUTSIDE RECORDS SUMMARY | 2024-06-12 13:45 | XMS_ITS | Encounter Summary ---
Author Organization [facility] [place] [address] Care Team Providers Care Lawn Care Technician Name Role Phone Cayla Yeager LOUIE Primary Care Provider + Encounter Details Date Type Department Care Team (Latest Contact Info) Description 09/17/2010 7:34 AM EST - 09/17/2010 1:00 PM EST Hospital Encounter [place] [address] Rigoberto Reid MD [facility] [address] [place] [address] Discharge Disposition: Home Social History Tobacco Use [...] PM EDT Hospital [place] [address] [place] [address] 07/09/2024 8:30 AM EDT Appointment XRay at [address] [phone] [place] [address] 07/17/2024 8:00 AM EDT Procedure visit [place] [address] 08/26/2024 8:00 AM EST Office Visit [place] [address] 08/27/2024 9:00 AM EST Clinical Support [place] [address] documented as of this encounter Visit Diagnoses Not on filedocumented in this encounter Care Teams Lawn Care Technician Relationship Specialty Start Date End Date Cayla Yeager APRN [address] [place] [address] PCP - General 08/28/10 10/01/10 documented as of this encounter
--- OUTSIDE RECORDS SUMMARY | 2024-06-12 13:45 | XMS_ITS | Encounter Summary ---
Author Organization [facility] Address [facility] [place] [address] Care Team Providers Care Sole Seamer Name Role Phone Mike Goodman DNP Primary Care Provider [phone] Encounter Details Date Type Department Care Team (Late st Contact Info) Description 09/17/2010 Orders [place] [address] Rigoberto Reid MD [facility] [place] [address] Social History Tobacco Use Types Packs/Day Years Used Date Smoking Tobacco: Never Assessed [facility] Utilities Answer Date Recorded In the past [...] a senior care (including now)? No 10/16/2023 IPV Inpatient Questions [...] PM EDT Hospital [place] [address] [place] [address] 07/09/2024 8:30 AM EDT Appointment XRay at [address] [phone] [place] [address] 07/17/2024 8:00 AM EDT Procedure visit [place] [address] 08/26/2024 8:00 AM EST Office [place] [address] 08/27/2024 9:00 AM EST Clinical Support [place] [address] documented as of this encounter Procedures Procedure Name Priority Date/Time Associated Diagnosis Comments SURGICAL PATHOLOGY REPORT Routine 09/17/2010 2:19 PM EST documented in this encounter Results * Surgical Pathology Report (09/17/2010 2:19 PM EST) Surgical Pathology Report [id number] ? Location: 4T The signing pathologist has (i) examined the relevant preparation(s) for the specimen(s) and (ii) rendered or confirmed the diagnosis(es). . ?Pathology Surgical Pathology Final Report Clinical Information Specimen Submitted: A - Small intestine, duodenum B - Stomach, random Clinical History: _ Clinical Diagnosis: _ Gross Description A - Labeled/Fixativ e: 1 Bx small intestine, duodenum, formalin. Qty/Size/Weight : ?Multiple, ranging from 0.2 cm to 0.3 cm in ?greatest dimension. Tissue Description: ?? Soft, dukes tissues. Sections/Proces sing: ??(T1) B - Labeled/Fixativ e: 2 Bx stomach, random, formalin. Qty/Size/Weight : ?Multiple, ranging from 0.2 cm to 0.3 cm in ?greatest dimension. Tissue Description: ?? Soft, dukes tissues. Sections/Proces sing: ??(T1) Diagnosis Endoscopic biopsies - A. Duodenal mucosa within normal limits, including preserved villous architecture. B. Gastric antral gland mucosa with nonspecific reactive gastropathy. Gastric fundic mucosa within normal limits. Negative for H. pylori (Thiazine stain). CR-0 09/19/10 AAS 09/21/10 Verified by: ? Stefani Roberts MD ?Pathologist ?(Electronic Signature) The attending pathologist whose signature appears on this report has reviewed all diagnostic slides and has edited the gross and/or microscopic portion of the report in rendering the final pathologic diagnosis. EUGENE BUSTAMANTEIUM 09/17/2010 2:19 PM EST Rigoberto Reid MD PATHOLOGY/CYTOLOGY O RDERABLES [facility] documented in this encounter Visit Diagnoses Not on filedocumented in this encounter Care Teams Sole Seamer Relationship Specialty Start Date End Date Mike Goodman DNP [address] [place] [place] [address] PCP - General Family Medicine 08/22/22 documented as of this encounter
--- OUTSIDE RECORDS SUMMARY | 2024-06-12 13:45 | XMS_ITS | Encounter Summary ---
Author Organization [facility] Address [place] [address] Care Team Providers Care Family Medicine Chair Name Role Phone Arely Arzola LOUIE Primary Care Provider [phone] Reason for Visit * Reason Comments Pre-op Exam Encounter Details Date Type Department Care Team (Late st Contact Info) Description 11/23/2012 12:40 PM EDT Follow-[place] [address] Sheridan Cassidy MD [facility] [place] [address] Epigastric pain (Primary Dx); Gastroesophageal reflux Discharge Disposition: Home Social History Tobacco Use Types Packs/Day Years Used Date Smoking Tobacco: Never Assessed Sex and Gender Information Value Date Recorded Sex Assigned at Not on file Gender Identity Not on file Sexual Orientation Not on file documented as of this encounter Last Filed Vital Signs Vital Sign Reading Time Taken Comments Blood Pressure 138/80 11/23/2012 3:28 PM EDT Pulse 89 11/23/2012 3:28 PM EDT Temperature 36.8 ??C (98.2 ??F) 11/23/2012 3:28 PM ED T Respiratory Rate 16 11/23/2012 3:28 PM EDT Oxygen Saturation 100% 11/23/2012 3:28 PM EDT Inhaled Oxygen Concentration - - Weight 76.7 kg (169 lb) 11/23/2012 3:28 PM EDT Height - - Body Mass Index - - documented in this encounter Progress Notes * Sheridan Cassidy MD - 11/30/2012 6:04 PM EDT Seen in follow up for revision of her fundoplication. Risks and benefits reviewed. She seems well informed and ready to proceed with surgery in the next few days. On examination, she appears well and in no distress. Head and neck exam reveals equal, reactive pupils and a supple neck. Her chest is clear bilaterally and her heart sounds are normal with no adventitious sounds or murmurs. Her abdomen is soft with no masses or tenderness. Extremity and Neuro exams are grossly normal. documented in this encounter Plan of Treatment Upcoming Encounters Date Type Department Care Team (Late st Contact Info) Description 06/15/2024 3:00 PM EDT Hospital [place] [address] [place] [address] 07/09/2024 8:30 AM EDT Appointment XRay at [address] [phone] [place] [address] 07/17/2024 8:00 AM EDT Procedure [place] [address] 08/26/2024 8:00 AM EST Office Visit [place] [address] 08/27/2024 9:00 AM EST Clinical Support [place] [address] documented as of this encounter Procedures Procedure Name Priority Date/Time Associated Diagnosis Comments DIFFERENTIAL, AUTOMATED STAT 11/23/2012 2:44 PM EDT CREATININE STAT 11/23/2012 2:44 PM EDT Epigastric pain CBC (WITH DIFF) STAT 11/23/2012 2:44 PM EDT Epigastric pain BUN STAT 11/23/2012 2:44 PM EDT Epigastric pain LIPASE STAT 11/23/2012 2:44 PM EDT Epigastric pain AMYLASE STAT 11/23/2012 2:44 PM EDT Epigastric pain HEPATIC FUNCTION PANEL STAT 11/23/2012 2:44 PM EDT Epigastric pain ELECTROLYTES PANEL STAT 11/23/2012 2: 44 PM EDT Epigastric pain documented in this encounter Results * Differential, Automated (11/23/2012 2:44 PM EDT) Neutrophil % 58.0 34.0 - 71.0 % CERNER MILLENNIUM Neutrophil Absolute 4.02 1.50 - 6.30 x10(3)/mcL CERNER MILLENNIUM Lymph % 33.1 19.0 - 53.0 % CERNER MILLENNIUM Lymphocytes Abs 2.3 1.0 - 3.6 x10(3)/mcL CERNER MILLENNIUM Monocyte % 7.6 4.0 - 13.0 % CERNER MILLENNIUM Monocyte Abs 0.5 0.2 - 1.0 x10(3)/mcL CERNER MILLENNIUM Eos % 1.2 0.0 - 7.0 % CERNER MILLENNIUM Eosinophils Abs 0.1 0.0 - 0.5 x10(3)/mcL CERNER MILLENNIUM Basophil % 0.1 0.0 - 2.0 % CERNER MILLENNIUM Baso Absolute 0.0 0.0 - 0.2 x10(3)/mcL CERNER MILLENNIUM Immature Gran % 0.00 0.00 - 0.66 % CERNER MILLENNIUM Comment: Immature granulocytes(IG's)percentage and absolute count will include metamyelocytes, myelocytes, and promyelocytes. Blood smears from CBCs yielding IG's will be scanned manually for concordance. If this scan disagrees with the automated IG or if promyelocytes are noted, a manual differential will be performed. Immature Gran Absolute 0.00 0.00 - 0.05 x10(3)/mcL [facility] MILLENNIUM Blood specimen (specimen) 11/23/2012 2:44 PM EDT 11/23/2012 2:53 PM EDT Sheridan Cassidy MD HEMATOLOGY ORDERABLE S Performing Organization Address [facility] de Phone Number [facility] * Lipase (11/23/2012 2:44 PM EDT) Lipase 35 0 - 60 unit/L [facility] Blood specimen (specimen) 11/23/2012 2:44 PM EDT 11/23/2012 2:53 PM EDT Narrative Resulting Agency Comment Spec In Lab Sheridan Cassidy MD CHEMISTRY ORDERABLES Performing Organization Address [facility] [place] de Phone Number [facility] * Amylase (11/23/2012 2:44 PM EDT) Amylase 64 28 - 100 unit/L [facility] Blood specimen (specimen) 11/23/2012 2:44 PM EDT 11/23/2012 2:53 PM EDT Narrative Resulting Agency Comment Spec In Lab Sheridan Cassidy MD CHEMISTRY ORDERABLES Performing Organization Address [facility] de Phone Number [facility] * Hepatic Function Panel (11/23/2012 2:44 PM EDT) Protein, Total 7.0 6.4 - 8.3 gm/dL [facility] MILLENNIUM Albumin 4.3 3.2 - 5.2 gm/dL [facility] MILLENNIUM Aspartate Aminotransferase 18 0 - 30 unit/L CERNER MILLENNIUM Alanine Aminotransferase 15 0 - 30 unit/L [facility] MILLENNIUM Alkaline Phosphatase 58 40 - 104 unit/L [facility] Bilirubin, Total 0.4 0.2 - 1.3 mg/dL CERNER MILLENNIUM Bilirubin, Direct 0.1 0.0 - 0.3 mg/dL CERNER MILLENNIUM Blood specimen (specimen) 11/23/2012 2:44 PM EDT 11/23/2012 2:53 PM EDT Narrative Resulting Agency Comment Spec In Lab Shreidan Cassidy MD CHEMISTRY ORDERABLES Performing Organization Address [facility] [place] de Phone Number CERNER MILLENNIUM * Electrolytes panel (11/23/2012 2:44 PM EDT) Sodium 139 135 - 145 mmol/L CERNER MILLENNIUM Potassium 3.9 3.5 - 5.0 mmol/L CERNER MILLENNIUM Comment: Please note: ??Patients with WBC >100,000 may have falsely elevated Potassium levels. ??For accurate Potassium quantification in these patients send serum separator tube (gold top) for subsequent determinations. ??Contact the Clinical Chemistry Laboratory if there are any questions. Chloride 105 98 - 107 mmol/L CERNER MILLENNIUM Carbon Dioxide 26 22 - 31 mmol/L CERNER MILLENNIUM Anion Gap 8 5 - 15 mmol/L CERNER MILLENNIUM Blood specimen (specimen) 11/23/2012 2:44 PM EDT 11/23/2012 2:53 PM EDT Narrative Resulting Agency Comment Spec In Lab Sheridan Cassidy MD CHEMISTRY ORDERABLES Performing Organization Address [facility] [place] de Phone Number CERNER MILLENNIUM * Creatinine (11/23/2012 2:44 PM EDT) Creatinine 0.71 0.70 - 1.20 mg/dL CERNER MILLENNIUM Comment: Please note that the pediatric reference intervals supplied above were not validated at [facility]. Results from pediatric patients should be interpreted in conjunction to the patient's age, height and muscle mass. Est Glomerular Filtration Rate >60 >=60 CERNER [...] J Am Soc Nephrol;6:1963-72. Blood specimen (specimen) 11/23/2012 2:44 PM EDT 11/23/2012 2:53 PM EDT Narrative Resulting Agency Comment Spec In Lab Sheridan Cassidy MD CHEMISTRY ORDERABLES EUGENE BROOKS * BUN (11/23/2012 2:44 PM EDT) Blood Urea Nitrogen 8 8 - 18 mg/dL EUGENE MARIUMYUMIKO Blood specimen (specimen) 11/23/2012 2:44 PM EDT 11/23/2012 2:53 PM EDT Narrative Resulting Agency Comment Spec In Lab Sheridan Cassidy MD CHEMISTRY ORDERABLES [facility]ERIVAN CAUSEYENNIUM * CBC (with Diff) (11/23/2012 2:44 PM EDT) White Blood Cell 6.9 4.0 - 10.0 x10(3)/mcL CERNER MILLENNIUM Red Blood Cell 4.70 3.93 - 5.22 x10(6)/mcL CERNER MILLENNIUM Hemoglobin 13.2 11.2 - 15.7 gm/dL CERNER MILLENNIUM Hematocrit 40.2 34.0 - 45.0 % CERNER MILLENNIUM Mean Cell Volume 85.5 79.0 - 94.0 fL CERNER MILLENNIUM Mean Cell Hemoglobin 28.1 26.6 - 32.2 pg CERNER MILLENNIUM Mean Cell Hemoglobin Concentration 32.8 32.0 - 36.5 gm/dL CERNER MILLENNIUM Platelet 205 145 - 370 x10(3)/mcL CERNER MILLENNIUM RDW Standard Deviation 39.3 35.0 - 46.0 fL CERNER MILLENNIUM RDW coefficient of variation 12.6 10.9 - 14.4 % CERNER MILLENNIUM Mean Platelet Volume 10.4 9.0 - 12.0 fL CERNER MILLENNIUM Blood specimen (specimen) 11/23/2012 2:44 PM EDT 11/23/2012 2:53 PM EDT Narrative Resulting Agency Comment Spec In Lab Sheridan Cassidy MD HEMATOLOGY ORDERABLE S Performing Organization Address [facility] Co de Phone Number EUGENE BROOKS documented in this encounter Visit Diagnoses Diagnosis Epigastric pain- Primary Abdominal pain, epigastric Gastroesophageal reflux Esophageal reflux documented in this encounter Care Teams Family Medicine Chair Relationship Specialty Start Date End Date Arely Arzola APRN [address] [place] [address] PCP - General 11/23/12 09/30/17 documented as of this encounter
--- OUTSIDE RECORDS SUMMARY | 2024-06-12 13:45 | XMS_ITS | Encounter Summary ---
Author Organization [facility] [place] [address] Care Team Providers Care Base Filler Operator Name Role Phone Kasey Rader MD Primary Care Provider [phone] Encounter Details Date Type Department Care Team (Latest Contact Info) Description 10/09/2010 9:53 AM EST - 10/10/2010 7:28 PM EST Hospital Encounter [place] [address] Sheridan Cassidy MD [facility] [place] [address] Discharge Disposition: Home Social History Tobacco Use [...] PM EDT Hospital [place] [phone] Alena iPzarro APRN [facility] [place] [address] 07/09/2024 8:30 AM EDT Appointment XRay at [address] [phone] [place] [address] 07/17/2024 8:00 AM EDT Procedure [place] [address] 08/26/2024 8:00 AM EST Office Visit [place] [address] 08/27/2024 9:00 AM EST Clinical Support [place] [address] documented as of this encounter Visit Diagnoses Not on filedocumented in this encounter Active and Recently Administered Medications Care Teams Base Filler Operator Relationship Specialty Start Date End Date Kasey Rader MD [facility] [address] [place] [address] PCP - General 10/02/10 11/22/12 documented as of this encounter
--- OUTSIDE RECORDS SUMMARY | 2024-06-12 13:45 | XMS_ITS | Encounter Summary ---
Author Organization [facility] Address [address] [place] [address] Care Team Providers Care School Age Lead Teacher Name Role Phone Cayla Yeager KAVYA Primary Care Provider [phone] Encounter Details Date Type Department Care Team (Latest Contact Info) Description 10/09/2009 15:43 EST - 10/09/2009 23:59 EST Hospital Encounter [facility] Interventional Pain [address] [place] [address] Unknown, [place], [place] [address] [place] [address] Negrito Gonzalez MD [address] [address] Discharge Disposition: Auto Discharge Social History Tobacco Use Types Packs/Day Years [...] Discharge Disposition Disposition Code Departure Means Destination Auto Discharge Home documented in this encounter Plan of Treatment Not on file documented as of this encounter Visit Diagnoses * Evaluation - Negrito Gonzalez MD - 10/09/2009 0000 EST DIVISION OF PAIN MANAGEMENT NEW PATIENT EVALUATION - 10/09/2009 PREPROCEDURE DIAGNOSIS: Lumbar radiculopathy in an L5 distribution. POSTPROCEDURE DIAGNOSIS: Lumbar radiculopathy in an L5 distribution. PROCEDURE: Right-sided L5-S1 transforaminal epidural steroid injection. HISTORY OF PRESENT ILLNESS: Ms Bolanos comes to clinic at the request of Lee Clinton for right-sidedlumbar radiculopathy that she has been having for greater than 3 month's duration. The patient states this pain to be currently 8/10 in nature, located along her lower buttock, lower back and into her right leg. The patient describes this pain as a tingling freezing sensation, worsened with any moving or driving, and relieved with changes in position. She reports that the Neurontin she has been taking since September has not significantly helped her. She says the pain she currently feels she describes starting in her right-sided lower back, progressing over her posterior buttock, lateral thigh,lateral posterior calf, into the middle toes of her foot. REVIEW OF SYSTEMS: Negative for chest pain, shortness of breath, nausea, vomiting, diarrhea, constipation, bowel or bladder incontinence, infectious issues or anticoagulation issues. PAST MEDICAL HISTORY: Endometriosis. PAST SURGICAL HISTORY: Left knee procedure, , partial hysterectomy and oophorectomy. ALLERGIES: WELLBUTRIN and onions. FAMILY HISTORY: Noncontributory. SOCIAL HISTORY: She quit smoking 3 years ago and occasionally drinks alcohol. 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 REVIEW OF SYSTEMS: Negative for chest pain, shortness of breath, nausea, vomiting, diarrhea, constipation, bowel or bladder incontinence, infectious issues or anticoagulation issues. OBJECTIVE: She is awake, alert and oriented x3, in no acute distress. She is 5 feet 1 inches tall and weighs 178 pounds. Blood pressure 124/93, pulse 97, respiratory rate of 16, temperature 35.9. Examination of the lumbar spine reveals no obvious deformities or malformations. She has no significant tenderness to palpation over her paravertebral lumbar axial spine. She has hypoesthesias over the right-sided anterolateral thigh, right lateral calf and into her forefoot. She has strength 5/5 bilateral lower extremities and reflexes 2+ bilateral lower extremities. I am unable to assess her sacroiliac joints or to proceed with straight leg raise secondary to patient discomfort. IMAGING: MRI dated 09/21/2009 reveals a possible disk extrusion at the L5-S1 level on the right exterior foramen exiting the L5 nerve root. PLAN: Today, we will proceed at the request of Lee Clinton with a right-sided L5- S1 transforaminal epidural steroid injection in hopes of alleviating some of the discomfort she continues to have. She is to return to clinic on a p.r.n. basis. PROCEDURE NOTE: After obtaining informed consent, the patient was brought to the procedure room andplaced in prone position. After sterile prep and drape with chlorhexidine solution, we located under fluoroscopic guidance the right-sided L5-S1 neural foraminal opening. After local infiltration with 2% lidocaine for skin and subcutaneous tissues, we advanced in coaxial fashion a 5-inch, 22-gauge Quincke needle into the foramen at the aforementioned level. After confirmation with AP and lateral views and negative heme and CSF aspiration at all times, we injected a total of 2 mL of Isovue contrast dye with excellent epidural spread, after which we injected a total of 80 mg of Depo-Medrol and 2 mL of 0.25% bupivacaine. The needle was restiletted and removed. The patient tolerated the procedure well without any apparent complications. She is return to clinic on a p.r.n. basis. I saw and examined the patient with the resident/fellow. I agree with the findings and plan of caredocumented in the resident's/fellow's note. In addition, I was present during the entire procedure. Electronically Signed by Travis Jarvis MD 10/17/2009 10:21 Negrito Gonzalez MD Travis Jarvis MD - Negrito Gonzalez MD - Job ID: SM Doc ID: [id number] Ext Doc ID: [id number] cc: RICHARD Cronejo MD documented in this encounter Care Teams School Age Lead Teacher Relationship Specialty Start Date End Date Cayla Yeager FNP [address] [place] [address] PCP - General 05/30/09 documented as of this encounter
--- OUTSIDE RECORDS SUMMARY | 2024-06-12 13:45 | XMS_ITS | Encounter Summary ---
Author Organization [facility] Address [address] [place] [address] Care Team Providers Care Sales Planning Coordinator Name Role Phone Cayla Yeager KAVYA Primary Care Provider [phone] Encounter Details Date Type Department Care Team (Late st Contact Info) Description 02/14/2023 Lab Requisition [facility] Lab - Main [address] [id number] Morris Mchugh MD [address] [place] [phone] Epigastric pain; Family history of malignant neoplasm of digestive organs; Melena; Acquired absence of stomach (part of) Social History Tobacco Use Types Packs/Day Years Used Date Smoking Tobacco: Never Comments:no Alcohol Use Standard Drinks/Week Comments No 0 (1 standard drink = 0.6 oz pur e alcohol) no Sex and Gender Information Value Date Recorded Sex Assigned at Not on file Gender Identity Not on file Sexual Orientation Not on file documented as of this encounter Plan of Treatment Not on file documented as of this encounter Procedures Procedure Name Priority Date/Time Associated Diagnosis Comments SURGICAL PATHOLOGY Today 02/13/2023 7:36 EDT Epigastric pain Family history of malignant neoplasm of digestive organs Melena Acquired absence of stomach (part of) documented in this encounter Results * SURGICAL PATHOLOGY (02/13/2023 7:36 EDT) Note to Patient The following pathology results have been interpreted by your pathologist and may be available to you before your health provider has had the opportunity to review them. Please allow time for your provider to receive these results and explore management options, if applicable. 02/17/2023 16:54 [facility] Final Diagnosis A. DUODENUM, BIOPSY: - Small bowel mucosa with no significant pathologic change. - No evidence of gluten-sensitive enteropathy (celiac sprue). B. STOMACH, BIOPSY: - Minute fragments of oxyntic-type mucosa with no significant pathologic change. - No intestinal metaplasia or dysplasia. - No evidence of Helicobacter pylori on routine H&E stain. C. GASTROESOPHAGEAL JUNCTION, BIOPSY: - Junctional mucosa with focal reactive epithelial change; no other significant pathologic change. - No intestinal metaplasia or dysplasia. D. ESOPHAGUS, DISTAL, BIOPSY: - Benign squamous mucosa with a focal area of mild reactive epithelial changes. - No increase in intraepithelial eosinophils. E. ESOPHAGUS, MID, BIOPSY: - Benign squamous mucosa with no significant pathologic change. - No increase in intraepithelial eosinophils. F. TERMINAL ILEUM, POLYP, BIOPSY: - Fragment of benign small bowel mucosa with no significant pathologic change. 02/17/2023 16:54 [facility] Diagnosis Comment Specimen F: Deeper level tissue sections were examined on block F1. 02/17/2023 16:54 [facility] Attestation By the signature below, the attending physician certifies that they have 1) personally conducted a gross and/or microscopic examination of the described specimen(s), and/or personally interpreted the results of laboratory testing of the described specimen(s), and 2) personally rendered or confirmed the above diagnosis. 02/17/2023 16:54 [facility] at 1653 Clinical History Hx of anorexia, Queen's esophagus, GERD, globus sensation, epigastric pain, hematochezia, anemia, nausea, pyrosis, status post partial gastrectomy, status post Queen's ablation. 02/17/2023 16:54 [facility] Gross Description A. Received in formalin labeled ? Mora A. Fecteau? and ? small bowel Bx? are 2 mucosal tissue fragments each measuring 0.3 x 0.2 x 0.1 cm. Entirely submitted in A1. B. Received in formalin labeled ? Mora A. Fecteau? and ? stomach Bx? are 5 mucosal tissue fragments ranging in size from less than 0.1 cm up to 0.3 x 0.1 x 0.1 cm. Entirely submitted in B1. C. Received in formalin labeled ? Mora A. Fecteau? and ? GE junction? are 2 mucosal tissue fragments each measuring 0.1 x 0.1 x 0.1 cm. Entirely submitted in C1. D. Received in formalin labeled ? Mora A. Fecteau? and ? distal esophagus? are 3 mucosal tissue fragments ranging in size from 0.1 cm up to 0.2 x 0.2 x 0.1 cm. Entirely submitted in D1. E. Received in formalin labeled ? Mora A. Fecteau? and ? mid esophagus? are 2 mucosal tissue fragments ranging in size from less than 0.1 cm and up to 0.2 x 0.2 x 0.1 cm. Entirely submitted in E1. F. Received in formalin labeled ? Mora A. Fecteau? and ? polyp terminal ileum? is a single mucosal tissue fragment measuring 0.6 x 0.2 x 0.1 cm. Entirely submitted in F1. YOLI SYLVESTER 02/14/2023 12:23 02/17/2023 16:54 EDT [facility] Performing Lab [facility] 01/2023 16:54 EDT [facility] Scanned Images [facility] ENTIRE ILEUM / Unknown 02/13 7:36 EDT 02/14/2023 7:18 EDT Tissue specimen (specimen) STOMACH STRUCTURE / Unknown 02/13/2023 7:36 EDT 02/14/2023 7:18 EDT Tissue specimen (specimen) CARDIOESOPHAGEAL JUNCTION STRUCTURE / Unknown 02/13/2023 7:36 EDT 02/14/2023 7:18 EDT Tissue specimen (specimen) ESOPHAGEAL STRUCTURE / Unknown 02/13/2023 7:36 EDT 02/14/2023 7:18 EDT Tissue specimen (specimen) ESOPHAGEAL STRUCTURE / Unknown 02/13/2023 7:36 EDT 02/14/2023 7:18 EDT Tissue specimen (specimen) ILEAL STRUCTURE / Unknown 02/13/2023 7:36 EDT 02/14/2023 7:31 EDT Morris Mchugh MD PATHOLOGY ORD ERABLES [facility] [address] [place] [address] documented in this encounter Visit Diagnoses Diagnosis Epigastric pain Abdominal pain, epigastric Family history of malignant neoplasm of digestive organs Melena Blood in stool Acquired absence of stomach (part of) documented in this encounter Care Teams Sales Planning Coordinator Relationship Specialty Start Date End Date Cayla Yeager FNP [address] [place] [address] PCP - General 05/30/09 documented as of this encounter
--- OUTSIDE RECORDS SUMMARY | 2024-06-12 13:45 | XMS_ITS | Encounter Summary ---
Author Organization [place] [address] Care Team Providers Care Raw Stock Machine Loader Name Role Phone Kasey Rader MD Primary Care Provider [phone] Encounter Details Date Type Department Care Team (Latest Contact Info) Description 09/04/2012 1:40 PM EST - 09/04/2012 5:35 PM EST Hospital Encounter [place] [address] Vianney Wolf MD [facility] [place] [address] Discharge Disposition: Home Social History Tobacco Use Types Packs/Day Years Used Date Smoking Tobacco: Never Assessed Sex and Gender Information Value Date Recorded Sex Assigned at Not on file Gender Identity Not on file Sexual Orientation Not on file documented as of this encounter Last Filed Vital Signs Vital Sign Reading Time Taken Comments Blood Pressure 111/67 09/04/2012 4:05 PM EST Pulse 77 09/04/2012 4:05 PM EST Temperature - - Respiratory Rate 14 09/04/2012 4:05 PM EST Oxygen Saturation 96% 09/04/2012 4:05 PM EST Inhaled Oxygen Concentration - - Weight - - Height - - Body Mass Index - - documented in this encounter Discharge Instructions * Attachments The following attachments cannot be sent through Care Everywhere. 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 01/11/2011 pantoprazole (PROTONIX) 40 mg tablet Take 40 mg by mouth daily. 11/27/2012 polyethylene glycol (MIRALAX) 17 gram packet 10/18/201007/2013 ibuprofen (ADVIL;MOTRIN) 800 mg tablet 10/18/2010 11/26/2017 documented as of this encounter H&P Notes * Vianney Wolf MD - 09/04/2012 3:35 PM EST Patient Name: Meagan Bolanos Patient Age: 37 y.o. Birthdate: 1975 Admit date: 09/04/2012 Attending Physician: Vianney Wolf MD 37 yo s/p Magdaleno with Dr. Cassidy 09/2010. Has since had some revisional surgery in [place] to her fundoplication. I have no info on that. Currently c/o postprandial epigastric pain. Had Ba swallow this am which looks like there is a wrap present and a ba pill goes through without holdup. She saw Dr. Cassidy yesterday and he advised EGD. documented in this encounter Miscellaneous Notes * Miscellaneous - Provider, Scanning - 09/04/2012 10:49 PM EST * Miscellaneous - Provider, Scanning - 09/04/2012 3:55 PM EST documented in this encounter Plan of Treatment Upcoming Encounters Date Type Department Care Team (Late st Contact Info) Description 06/15/2024 3:00 PM EDT Hospital [place] [address] [place] [address] 07/09/2024 8:30 AM EDT Appointment XRay at [address] [phone] [place] [address] 07/17/2024 8:00 AM EDT Procedure visit [place] [address] 08/26/2024 8:00 AM EST Office Visit [place] [address] 08/27/2024 9:00 AM EST Clinical Support [place] [address] documented as of this encounter Procedures Procedure Name Priority Date/Time Associated Diagnosis Comments SURGICAL PATHOLOGY REPORT Routine 09/04/2012 6:20 PM EST SPECIMEN TO PATHOLOGY Routine 09/04/2012 4:02 PM EST EGD WITH BIOPSY (WRVU 2.39) 09/04/2012 3:45 PM EST DYSPEPSIA / GASTROESOPHAGEAL REFLUX UPPER GI ENDOSCOPY 09/04/2012 3:45 PM EST DYSPEPSIA / GASTROESOPHAGEAL REFLUX UPPER GI ENDOSCOPY Routine 09/04/2012 3:37 PM EST documented in this encounter Results * Surgical Pathology Report (09/04/2012 6:20 PM EST) Surgical Pathology Report ? [facility] ? Provider: ?? VIANNEY WOLF ??Pt. Name: ?? MEAGAN BOLANOS ? Acc #: ?[id number] ?Pt. ? Col Date: ?? 09/04/2012 ?/Sex: ?1975,(37 years),Female ? Rec Date: ?? 09/04/2012 ?LOC: ?4T ? SURGICAL PATHOLOGY ? ---Pathologic Diagnosis--- ? Endoscopic biopsy - ? A - Esophagus, GE junction: ? Squamocolumnar junctional mucosa (cardia and corpus type) with mild ? chronic inflammation. ??There is no evidence of intestinal metaplasia. ? CR-0 ? 09/07/12 ? XL ? 09/07/12 Verified by: ? Enio MCGOVERN, Meri ? Pathologist ? (Electronic Signature) ? The attending pathologist whose signature appears on this report has ? reviewed all diagnostic slides and has edited the gross and/or ? microscopic portion of the report in rendering the final pathologic ? diagnosis. ? ---Microscopic Description--- ? Slides reviewed, microscopic description not recorded. ? ---Gross Description--- ? Labeled/Fixative: ? Esophagus, GE junction; formalin. ? Qty/Size/Weight: ?Three, ranging from 0.1 cm to 0.3 cm in ? greatest dimension. ? Tissue Description: ?? Soft, dukes tissues. ? Sections/Processi ng: ??(T1) ??aje/SHB ? ---Clinical Information--- ? Specimen Submitted: ? A - Esophagus, GE junction ? Clinical History/Diagnosis : ? S/P Magdaleno, HX of GERD, ? of Queen's [facility] 09/04/2012 6:20 PM EST Vianney Wolf MD PATHOLOGY/CYTOLOGY ORDERABLES Performing Organization Address [facility] Co de Phone Number [facility] * Specimen to Pathology (surgical or derm) (09/04/2012 4:02 PM EST) AP Specimen 09/04/2012 4:02 PM EST 09/04/2012 4:02 PM EST Narrative [facility] - 09/04/2012 4:02 PM EST Specimen requisition ordered. ??Separate Pathology report to follow Vianney Wolf MD PATHOLOGY/CYTOLOGY ORDERABLES Performing Organization Address City/[facility] Co de Phone Number [facility] * UPPER GI ENDOSCOPY (09/04/2012 3:37 PM EST) UPPER GI ENDOSCOPY [facility] Endoscopy Patient Name: Meagan Bolanos ? Procedure Date: 09/04/2012 3:37 PM ? N: [id number] ? Date of : 1975 ? Age: 37 ? Order #: [id number] ? Procedure: ? Upper GI endoscopy Indications: ? Epigastric abdominal pain, Assessment ? following Magdaleno fundoplication Providers: ? Vianney Wolf MD, Alexandra ? CHELO Taylor, Camille López, ? Crown And Bridge Technician Referring MD: ?Kaesy Rader MD Medicines: ? Midazolam 4 mg IV, Fentanyl 200 ? micrograms IV Complications: ? No immediate [...] physician and the nurse in the ? endoscopy suite. Mental Status ? Examination: alert and oriented. ? Airway Examination: normal ? oropharyngeal airway and [...] ? upper GI endoscopy was accomplished ? without difficulty. The patient ? tolerated the procedure well. ? Findings: ? There were esophageal mucosal changes suspicious for ? short-segment Queen's esophagus. Three tongues of ? salmon-colored mucosa were present. Biopsy with a ? cold forceps was performed for histology. Estimated ? blood loss was minimal. Verification of patient ? identification for the specimen was done by the ? physician. A Magdaleno fundoplication was found in the ? cardia. This was characterized by healthy appearing ? mucosa. The fundoplication appears to be only a ? partial wrap. I am not sure what occurred at her ? revision but perhaps a partial takedown?The examined ? duodenum was normal. Her ampulla seems a bit ? prominent. She has had a cholecystectomy and whether ? a cholangiogram was done at the time would be good to ? know for ? of retained CBD stone which could ? potentially explain her symptoms. ? Impression: ?- Esophageal mucosal changes ? suspicious for short-segment ? Queen's esophagus. ? - A Magdaleno fundoplication was found ? but currently appears to be a partial ? wrap. ? - Normal examined duodenum. Recommendation: ?- Await pathology results. Will ? discuss with Dr. Cassidy but will likely ? need pH, manometery and possibly MRCP/ ? ___ Vianney Wolf MD 09/04/2012 4:10 PM This report has been signed electronically. Number of Addenda: 0 Note Initiated On: 09/04/2012 3:37 PM PROVATION 09/04/2012 3:37 PM EST Kasey Rader MD GENERAL SURGICAL ORD ERABLES [employer]ATION documented in this encounter Visit Diagnoses Not on filedocumented in this encounter Administered Medications Inactive Administered Medications - up to 3 most recent administrations Medication Order MAR Action Action Date Dose Rate Site sodium chloride 0.9% infusion 100 mL/hr, Intravenous, CONTINUOUS, Starting on Fri09/04/12 at 1515, Until Fri09/04/12 at 1936, Endoscopy (Day of Procedure) New Bag 09/04/2012 2:47 PM EST 100 mL/hr 100 mL/hr documented in this encounter Active and Recently Administered Medications Times are shown in EST. Continuous Medication Order 09/02/2012 09/03/2012 09/04/2012 sodium chloride 0.9% infusion (CANCELED) 100 mL/hr, Intravenous, CONTINUOUS, Starting on Fri09/04/12 at 1515, Until Fri09/04/12 at 1936, Endoscopy (Day of Procedure) 1447 (New Bag - Prov ider: Blanche Gonzalez RN)1700 (Stopped - Provider: Niraj Kearns RN) PRN Medication Order 09/02/2012 09/03/2012 09/04/2012 fentaNYL 50mcg/mL injection (CANCELED) ONCE PRN, Starting on Fri09/04/12 at 1547, Until Fri09/04/12 at 1936, Pain, Intra-Operative (Intra-Procedure), Routine 1547 (Given - Provid er: Alexandra Taylor RN)1551 (Given - Provider: Alexandra Taylor, CHELO)1554 (Given - Provider: Alexandra Taylor, CHELO) midazolam (VERSED) injection (CANCELED) ONCE PRN, Starting on Fri09/04/12 at 1547, Until Fri09/04/12 at 1936, Sleep, Intra-Operative (Intra-Procedure), Routine 1547 (Given - Provid er: Alexandra Taylor, CHELO)1549 (Given - Provider: Alexandra Taylor, CHELO)1550 (Given - Provider: Alexandra Taylor, CHELO)1554 (Given - Provider: Alexandra Taylor, CHELO) documented in this encounter Care Teams Raw Stock Machine Loader Relationship Specialty Start Date End Date Kasey Rader MD [address] [place] [address] PCP - General 10/02/10 11/22/12 documented as of this encounter
--- OUTSIDE RECORDS SUMMARY | 2024-06-12 13:45 | XMS_ITS | Encounter Summary ---
Author Organization [facility] Address [address] [place] [address] Care Team Providers Care Mining Professionals Name Role Phone Cayla Yeager KAVYA Primary Care Provider [phone] Encounter Details Date Type Department Care Team (Latest Contact Info) Description 01/11/2010 15:53 EDT - 01/11/2010 23:59 EDT Hospital Encounter [facility] Ophthalmology - Main [address] [place] [address] Opal Thapa MD [address] [place] [phone] Discharge Disposition: Auto Discharge Social History Tobacco [...] on filedocumented in this encounter Care Teams Mining Professionals Relationship Specialty Start Date End Date Cayla Yeager FNP [address] [place] [address] PCP - General 05/30/09 documented as of this encounter
--- OUTSIDE RECORDS SUMMARY | 2024-06-12 13:45 | XMS_ITS | Encounter Summary ---
Author Organization [facility] [place] [address] Care Team Providers Care Workers Compensation Examiner Name Role Phone Kasey Rader MD Primary Care Provider [phone] Encounter Details Date Type Department Care Team (Late st Contact Info) Description 09/17/2010 [place] [address] Giovanna Sommers MD [facility] [place] [address] Social History Tobacco Use Types Packs/Day Years [...] PM EDT Hospital [place] [address] Alena Pizarro APRN [facility] [place] [address] 07/09/2024 8:30 AM EDT Appointment XRay at [address] [phone] Alena Pizarro APRN [facility] [place] [address] 07/17/2024 8:00 AM EDT Procedure [place] [address] 08/26/2024 8:00 AM EST Office [place] [address] 08/27/2024 9:00 AM EST Clinical [place] [address] documented as of this encounter Procedures Procedure Name Priority Date/Time Associated Diagnosis Comments SURGICAL PATHOLOGY REPORT Routine 09/17/2010 2:19 PM EST documented in this encounter Results * PATHOLOGY SURGICAL PATHOLOGY FINAL REPORT (09/17/2010 2:19 PM EST) Surgical Pathology Report ? [facility] ? Provider: ?? GIOVANNA SOMMERS ? Pt. Name: ?? MEAGAN BOLANOS ? Acc #: ?[id number] ?Pt. ? Col Date: ?? 09/17/2010 ?/Sex: ?1975,(35 years),Female ? Rec Date: ?? 09/17/2010 ?LOC: ?4T ? SURGICAL PATHOLOGY ? ---Pathologic Diagnosis--- ? Endoscopic biopsies - ? A. Duodenal mucosa within normal limits, including preserved villous ? architecture. ? B. Gastric antral gland mucosa with nonspecific reactive gastropathy. ? Gastric fundic mucosa within normal limits. Negative for H. pylori ? (Thiazine stain). ? CR-0 ? 09/19/10 ? AAS ? 09/21/10 Verified by: ? Stefani Roberts MD ? Pathologist ? (Electronic Signature) ? The attending pathologist whose signature appears on this report has ? reviewed all diagnostic slides and has edited the gross and/or ? microscopic portion of the report in rendering the final pathologic ? diagnosis. ? ---Gross Description--- ? A - Labeled/Fixativ e: 1 Bx small intestine, duodenum, formalin. ? Qty/Size/Weight : ?Multiple, ranging from 0.2 cm to 0.3 cm in ? greatest dimension. ? Tissue Description: ?? Soft, dukes tissues. ? Sections/Proces sing: ??(T1) ? B - Labeled/Fixativ e: 2 Bx stomach, random, formalin. ? Qty/Size/Weight : ?Multiple, ranging from 0.2 cm to 0.3 cm in ? greatest dimension. ? Tissue Description: ?? Soft, dukes tissues. ? Sections/Proces sing: ??(T1) ? ---Clinical Information--- ? Specimen Submitted: ? A - Small intestine, duodenum ? B - Stomach, random ? Clinical History: ? _ ? [facility] ? Provider: ?? GIOVANNA SOMMERS ? Pt. Name: ?? MEAGAN BOLANOS ? Acc #: ?[id number] ?Pt. ? Col Date: ?? 09/17/2010 ?/Sex: ?1975,(35 years),Female ? Rec Date: ?? 09/17/2010 ?LOC: ?4T ? SURGICAL PATHOLOGY ? Clinical Diagnosis: ? _ [facility] 09/17/2010 2:19 PM EST Giovanna Sommers MD PATHOLOGY/CYTOLOGY O RDERABLES [facility] documented in this encounter Visit Diagnoses Not on filedocumented in this encounter Care Teams Workers Compensation Examiner Relationship Specialty Start Date End Date Kasey Rader MD [address] [place] [address] PCP - General 10/02/10 11/22/12 documented as of this encounter
--- OUTSIDE RECORDS SUMMARY | 2024-06-12 13:45 | XMS_ITS | Encounter Summary ---
Author Organization [facility] Address [address] [place] [address] Care Team Providers Care Cancer Registry Coordinator Name Role Phone Cayla Yeager Primary Care Provider [phone] Encounter Details Date Type Department Care Team (Late st Contact Info) Description 10/27/2009 Abstract [facility] OBGYN Services - [address] [phone] Cayla Yeager FNP [address] [place], [place] [phone] Endometriosis of other specified sites; Nausea alone Social History Tobacco Use Types Packs/Day Years [...] as of this encounter Visit Diagnoses Diagnosis Endometriosis of other specified sites Nausea alone documented in this encounter Care Teams Cancer Registry Coordinator Relationship Specialty Start Date End Date Cayla Yeager FNP [address] [place] [address] PCP - General 05/30/09 documented as of this encounter
--- OUTSIDE RECORDS SUMMARY | 2024-06-12 13:45 | XMS_ITS | Encounter Summary ---
Author Organization [facility] [place] [address] Care Team Providers Care Projection Welding Machine Operator Name Role Phone Cayla Yeager LOUIE Primary Care Provider + Encounter Details Date Type Department Care Team (Late st Contact Info) Description 09/27/2010 2:00 PM EST Office Visit [place] [phone] Yovana Herzog [facility] DR [place] [address] Rigoberto Reid MD [facility] DR [place] [address] Discharge Disposition: Home Social History Tobacco Use [...] PM EDT Hospital [place] [phone] Alena Pizarro NURSE PRACTITIONER ADULT [facility] [place] [address] 07/09/2024 8:30 AM EDT Appointment XRay at [address] [phone] [place] [address] 07/17/2024 8:00 AM EDT Procedure visit [place] [address] 08/26/2024 8:00 AM EST Office [place] [address] 08/27/2024 9:00 AM EST Clinical [place] [address] documented as of this encounter Visit Diagnoses Not on filedocumented in this encounter Care Teams Projection Welding Machine Operator Relationship Specialty Start Date End Date Cayal Yeager APRN [address] [place] [address] PCP - General 08/28/10 10/01/10 documented as of this encounter
--- OUTSIDE RECORDS SUMMARY | 2024-06-12 13:45 | XMS_ITS | Encounter Summary ---
Author Organization [facility] [place] [address] Care Team Providers Care Export Sales Assistant Name Role Phone Kasey Freed MD Primary Care Provider [phone] Encounter Details Date Type Department Care Team (Latest Contact Info) Description 09/09/2012 1:00 PM EST Procedure [place] [id number] CLINIC, Patti Ahn RN GERD (gastroesophageal reflux disease) (Primary Dx) Discharge Disposition: Home Social History Tobacco Use Types Packs/Day Years Used Date Smoking Tobacco: Never Assessed Sex and Gender Information Value Date Recorded Sex Assigned at Not on file Gender Identity Not on file Sexual Orientation Not on file documented as of this encounter Progress Notes * Rigoberto Reid MD - 09/17/2012 9:58 AM EST ESOPHAGEAL MANOMETRY Mora Bolanos Female, 37 yrs, 1975 PCP: KASEY FREED STUDY DATE: 09/09/12 PROVIDER: Rigoberto Reid, [place] ([id number]) INDICATION Reflux, epigastric pain, prior fundoplication with concern over esophageal function. METHODS Stationary esophageal manometry was performed with the [employer] esophageal motility system utilizing the [employer] software with a 4-channel solid-state motility probe. [...] sphincter) Lower Border: 43 cm Upper Border: 39 cm Mid-Inspiratory Resting Pressure: normal at 22 mmHg using the distal circumferential transducer (normal=13.5-34.5 mmHg). Water Swallows On 6 of 6 swallows the LES relaxed. Mean residual LES resting pressure was elevated at 8.9 mmHg (normal less than or equal to 8 mmHg). BODY OF ESOPHAGUS Water Swallows: 10 Peristaltic: 10 Not Transmitted: 0 Simultaneous: 0 Poorly Propagated: 0 Mean Amplitude of Contraction At 3 cm above the mid portion of the LES: normal at 66 mmHg (normal = 30 mmHg and above) At 8 cm above the mid portion the LES: normal at 39 mmHg (normal = 30 mmHg and above) UES (upper esophageal sphincter) Identified at 19 cm and extended to 17 cm. UES resting pressure just below normal limits at 29 mmHg (normal=30-150 mmHg); relaxation complete. IMPRESSION 1. Normal LES resting pressure. 2. Elevated LES residual pressure. This likely represents prior fundoplication. 3. UES resting pressure just below normal limits. 4. Normal UES relaxation. 5. Normal motility in the body of the esophagus. Rigoberto Reid, PhD, MD long wall mining machine helper, [facility] [employer] Section of Gastroenterology and Hepatology Formerly [facility] [place] [address] V: [phone] F: [phone] [facility]/sunita CC/EC: Sheridan Cassidy MD Enclosure: Tracing PCP Enclosure: Tracing * Patti Plunkett RN - 09/09/2012 2:10 PM EST Esophageal manometry performed without difficulty and was well tolerated. Discharged from lab without voiced concerns. documented in this encounter Plan of Treatment Upcoming Encounters Date Type Department Care Team (Late st Contact Info) Description 06/15/2024 3:00 PM EDT Hospital [place] [address] Alena Pizarro [place] [address] 07/09/2024 8:30 AM EDT Appointment XRay at [address] [phone] [place] [address] 07/17/2024 8:00 AM EDT Procedure [place] [address] 08/26/2024 8:00 AM EST Office Visit [place] [address] 08/27/2024 9:00 AM EST Clinical Support [place] [address] documented as of this encounter Visit Diagnoses Diagnosis GERD (gastroesophageal reflux disease)- Primary Esophageal reflux documented in this encounter Care Teams Export Sales Assistant Relationship Specialty Start Date End Date Kasey Freed MD [address] [place] [address] PCP - General 10/02/10 11/22/12 documented as of this encounter
--- OUTSIDE RECORDS SUMMARY | 2024-06-12 13:45 | XMS_ITS | Encounter Summary ---
Author Organization [facility] Address [address] [place] [address] Care Team Providers Care Process Tech Name Role Phone Cayla Yeager KAVYA Primary Care Provider [phone] Encounter Details Date Type Department Care Team (Late st Contact Info) Description 08/14/2022 Lab Requisition [facility] Pathology & Laboratory Medicine - [address] [address] Outr Resulting Lab, Provider Social History Tobacco Use Types Packs/Day Years [...] Procedure Name Priority Date/Time Associated Diagnosis Comments CCP ANTIBODIES Routine 08/13/2022 12:34 EST LYME AB Routine 08/13/2022 12:34 EST ANTI NUCLEAR AB (NIKOLE), IFA Routine 08/13/2022 12:34 EST documented in this encounter Results * LYME AB (08/13/2022 12:34 EST) Lyme Ab Negative Negative 08/15/2022 10:24 EST [facility] Blood VENOUS BLOOD / Unknown 08/13/2022 12:34 EST 08/14/2022 16:47 EST Provider Outr Resulting Lab IMMUNOLOGY A ND SEROLOGY ORDERABLES Performing Organization Address [facility] Co de Phone Number [facility] [address] [place] [address] * (ABNORMAL) ANTI NUCLEAR AB (NIKOLE), IFA (08/13/2022 12:34 EST) NIKOLE Interpretation Positive(A) Negative 08/15/2022 14:31 EST [facility] Comment: For titers greater than or equal to 1:160 (except the centromere and nucleolar patterns) it is recommended that specific follow-up autoantibody testing ??(such as for dsDNA and Extractable Nuclear Antigens) be performed on all diffuse and/or speckled patterns NOTE: For add-on testing dsDNA is stable for 7 days refrigerated while Extractable Nuclear Antigens are only stable for 48 hours refrigerated. NIKOLE Titer and Pattern 1 1:320 Speckled 08/15/2022 14:31 EST [facility] Blood VENOUS BLOOD / Unknown 08/13/2022 12:34 EST 08/14/2022 16:47 EST Narrative [facility] - 08/15/2022 14:31 EST Results were obtained with the [employer] NOVA Lite HEp-2 NIKOLE Kit by indirect immunofluorescence. Provider Outr Resulting Lab IMMUNOLOGY A ND SEROLOGY ORDERABLES Performing Organization Address [facility] Co de Phone Number [facility] [address] [place] [phone] * CCP ANTIBODIES (08/13/2022 12:34 EST) CCP Antibodies <2.5 <5.0 U/mL 08/15/2022 10:32 EST [facility] Blood VENOUS BLOOD / Unknown 08/13/2022 12:34 EST 08/14/2022 16:47 EST Provider Outr Resulting Lab IMMUNOLOGY A ND SEROLOGY ORDERABLES Performing Organization Address City/[facility] Co de Phone Number [facility] [address] [place] [address] documented in this encounter Visit Diagnoses Not on filedocumented in this encounter Care Teams Process Tech Relationship Specialty Start Date End Date Cayla Yeager FNP [address] [place] [address] PCP - General 05/30/09 documented as of this encounter
--- OUTSIDE RECORDS SUMMARY | 2024-06-12 13:45 | XMS_ITS | Encounter Summary ---
Author Organization [facility] Address [address] [place] [address] Care Team Providers Care Planting Machine Operator Name Role Phone Cayla Yeager Primary Care Provider [phone] Encounter Details Date Type Department Care Team (Late st Contact Info) Description 09/21/2009 Orders Only [facility] [phone] Cayla Yeager, KAVYA [address] [place], [place] [address] Social History Tobacco Use Types Packs/Day Years [...] Procedure Name Priority Date/Time Associated Diagnosis Comments MR THORACIC LUMBAR SPINE WO CONTRAST 09/21/2009 17:41 EST documented in this encounter Results * MR THORACIC LUMBAR SPINE WO CONTRAST (09/21/2009 17:41 EST) Anatomical Region Laterality Modality Other 09/21/2009 17:4 1 EST 09/22/2009 9:39 EST Narrative 09/22/2009 9:39 EST MR THORACIC LUMBAR SPINE WO CONTRAST ??Sep 21, 2009 05:42:03 PM Impression: 1. normal MRI of the thoracic and normal MRI of the lumbar spine. Clinical History: Pain in abdomen radiating around right flank in lumbosacral spine, down right hip and leg. Numbness and tingling in right hip and leg. Technique: MRI of the thoracic spine was performed with sagittal T2, sagittal T2 fat-sat, sagittal T1, axial T1 and axial T2 sequences. MRI of the lumbar spine was performed with sagittal T2, sagittal T1, axial T1, axial T2 and coronal T2 sequences gradient Comparison: None. Findings: MRI of the thoracic spine: The height, alignment and marrow signal intensity of the thoracic vertebral bodies is normal. The posterior elements are normally aligned. The caliber and signal intensity of the thoracic spinal cord is normal. The conus terminates at an appropriate level. MRI of the lumbar spine: The height, alignment and marrow signal intensity of the lumbar vertebral bodies is normal. The disc height and morphology is normal. The conus terminates at a normal level. There is no significant central or foraminal stenosis Procedure Note 09/22/2009 MR THORACIC LUMBAR SPINE WO CONTRAST Sep 21, 2009 05:42:03 PM Impression: 1. normal MRI of the thoracic and normal MRI of the lumbar spine. Clinical History: Pain in abdomen radiating around right flank in lumbosacral spine, down right hip and leg. Numbness and tingling in right hip and leg. Technique: MRI of the thoracic spine was performed with sagittal T2, sagittal T2 fat-sat, sagittal T1, axial T1 and axial T2 sequences. MRI of the lumbar spine was performed with sagittal T2, sagittal T1, axial T1, axial T2 and coronal T2 sequences gradient Comparison: None. Findings: MRI of the thoracic spine: The height, alignment and marrow signal intensity of the thoracic vertebral bodies is normal. The posterior elements are normally aligned. The caliber and signal intensity of the thoracic spinal cord is normal. The conus terminates at an appropriate level. MRI of the lumbar spine: The height, alignment and marrow signal intensity of the lumbar vertebral bodies is normal. The disc height and morphology is normal. The conus terminates at a normal level. There is no significant central or foraminal stenosis Cayla PRICE MRI ORDERABLE S documented in this encounter Visit Diagnoses Not on filedocumented in this encounter Care Teams Planting Machine Operator Relationship Specialty Start Date End Date Cayla Yeager FNP [address] [place] [address] PCP - General 05/30/09 documented as of this encounter
--- OUTSIDE RECORDS SUMMARY | 2024-06-12 13:45 | XMS_ITS | Encounter Summary ---
Author Organization [facility] Address [facility] [place] [address] Care Team Providers Care It Consulting Manager Name Role Phone Kasey Rader MD Primary Care Provider [phone] Encounter Details Date Type Department Care Team (Late st Contact Info) Description 10/18/2010 11:00 AM EST Office [place] [address] Sheridan Cassidy MD [facility] [place] [address] Discharge Disposition: Home Social History Tobacco Use [...] PM EDT Hospital [place] [address] [place] [address] 07/09/2024 8:30 AM EDT Appointment XRay at [address] [phone] Calvino, Alena M, [place] [address] 07/17/2024 8:00 AM EDT Procedure [place] [address] 08/26/2024 8:00 AM EST Office Visit [place] [address] 08/27/2024 9:00 AM EST Clinical Support [place] [address] documented as of this encounter Visit Diagnoses Not on filedocumented in this encounter Care Teams It Consulting Manager Relationship Specialty Start Date End Date Kasey Rader MD [address] [place] [address] PCP - General 10/02/10 11/22/12 documented as of this encounter
--- OUTSIDE RECORDS SUMMARY | 2024-06-12 13:45 | XMS_ITS | Encounter Summary ---
Author Organization [facility] Address [address] [place] [address] Care Team Providers Care Pillar Man Name Role Phone Cayla Yeager Primary Care Provider [phone] Encounter Details Date Type Department Care Team (Late st Contact Info) Description 08/28/2009 Abstract Used for ABSTRACTING Data [phone] Cayla Yeager FNP [address] [place], [place] [address] Social History Tobacco Use Types Packs/Day Years [...] Diagnoses Not on filedocumented in this encounter Historical Medications * This list may reflect changes made after this encounter. Medication Sig Dispensed Refills Start Date End Date IBUPROFEN ORAL Take by mouth as needed. meclizine (ANTIVERT) 25 mg tablet Take 25 mg by mouth daily as needed. 09/25/2009 added in this encounter Care Teams Pillar Man Relationship Specialty Start Date End Date Cayla Yeager FNP [address] [place], [place] [address] PCP - General 05/30/09 documented as of this encounter
--- OUTSIDE RECORDS SUMMARY | 2024-06-12 13:45 | XMS_ITS | Encounter Summary ---
Author Organization [facility] Address [address] [place] [address] Care Team Providers Care Bottling Line Operator Name Role Phone Cayla Yeager Odette HOFF Primary Care Provider [phone] Encounter Details Date Type Department Care Team (Latest Contact Info) Description 11/15/2009 20:21 EST - 11/15/2009 23:59 [facility] Hospital Encounter [facility] [address] [place] [address] Opal Thapa MD [address] [place] [address] Discharge Disposition: Auto Discharge Social History Tobacco [...] on filedocumented in this encounter Care Teams Bottling Line Operator Relationship Specialty Start Date End Date Cayla Yeager FNP [address] [place] [address] PCP - General 05/30/09 documented as of this encounter
--- OUTSIDE RECORDS SUMMARY | 2024-06-12 13:45 | XMS_ITS | Encounter Summary ---
Author Organization [facility] Address [address] [place] [address] Care Team Providers Care Pick Up Man Name Role Phone Cayla Yeager Primary Care Provider [phone] Reason for Visit * Reason Onset Date Comments Medications Refill 01/15/2021 Encounter Details Date Type Department Care Team (Late st Contact Info) Description 01/15/2021 Refill [facility] Adult Primary Care - [address] [address] Patti Ford, CHELO Medications Refill Social History Tobacco Use Types Packs/Day Years [...] on filedocumented in this encounter Care Teams Pick Up Man Relationship Specialty Start Date End Date Cayla Yeager FNP [address] [place], [place] [address] PCP - General 05/30/09 documented as of this encounter
--- OUTSIDE RECORDS SUMMARY | 2024-06-12 13:45 | XMS_ITS | Encounter Summary ---
Author Organization [facility] Address [address] [place] [address] Care Team Providers Care Information Technology Teacher Name Role Phone Cayla Yeager KAVYA Primary Care Provider [phone] Encounter Details Date Type Department Care Team (Late st Contact Info) Description 11/03/2009 Orders Only [facility] Ophthalmology - [facility] [place] [address] [place], [place] [address] Opal Thapa MD [address] [place] [phone] Social History Tobacco Use Types Packs/Day Years [...] Name Priority Date/Time Associated Diagnosis Comments MR HEAD AND ORBIT W/WO CONTRAST 11/15/2009 21:50 EST documented in this encounter Results * MR BRAIN AND ORBIT W/WO CONTRAST (11/15/2009 21:50 EST) Anatomical Region Laterality Modality Other 11/15/2009 21:5 0 EST 11/16/2009 10:36 EST Narrative 11/16/2009 10:36 EST MR BRAIN AND ORBIT WITH AND WITHOUT CONTRAST ??Nov 15, 2009 09:50:00 PM Signs and Symptoms/Comments: ??Vision loss left eye. Visual field defect left eye. New daily headache. Impression: ?? 1. Normal contrast enhanced brain and orbits MRI. Comparison: ??None ?? Technique: ??Sagittal T1 and axial T2, T2 FLAIR, GRE, DWI and T1 pre and post contrast FS MR images of the brain were obtained. ??Coronal T1pre, T2 and T1 post contrast FS and axial T1 pre and post contrast FS MR images of the orbits were obtained. Findings: ?? The ventricles and sulci are age appropriate. ??There is no mass effect or midline shift. ??Signal intensity throughout the brain and brainstem is normal. ??Flow voids are present in the major intracranial arteries and dural venous sinuses. ??No abnormal enhancement is seen following contrast administration. There are no paranasal sinus air fluid levels. The orbital preseptal soft tissues and retrorbital fat are normal in appearance. ??The lacrimal gland is unremarkable. ??No abnormality of the globes is identified. ??The superior ophthalmic veins, extraocular musculature and optic nerves are symmetric and normal in caliber. ??No abnormal enhancement of the optic nerves is demonstrated. ??No abnormality of the orbital apices, cavernous sinuses or optic chiasm is appreciated. I have personally reviewed the images and the above interpretation and agree with the findings. Procedure Note Mau Cortés MD / Mau Cortés MD / Mau Cortés MD - 11/16/2009 MR BRAIN AND ORBIT WITH AND WITHOUT CONTRAST Nov 15, 2009 09:50:00 PM Signs and Symptoms/Comments: Vision loss left eye. Visual field defect left eye. New daily headache. Impression: 1. Normal contrast enhanced brain and orbits MRI. Comparison: None Technique: Sagittal T1 and axial T2, T2 FLAIR, GRE, DWI and T1 pre and post contrast FS MR images of the brain were obtained. Coronal T1pre, T2 and T1 post contrast FS and axial T1 pre and post contrast FS MR images of the orbits were obtained. Findings: The ventricles and sulci are age appropriate. There is no mass effect or midline shift. Signal intensity throughout the brain and brainstem is normal. Flow voids are present in the major intracranial arteries and dural venous sinuses. No abnormal enhancement is seen following contrast administration. There are no paranasal sinus air fluid levels. The orbital preseptal soft tissues and retrorbital fat are normal in appearance. The lacrimal gland is unremarkable. No abnormality of the globes is identified. The superior ophthalmic veins, extraocular musculature and optic nerves are symmetric and normal in caliber. No abnormal enhancement of the optic nerves is demonstrated. No abnormality of the orbital apices, cavernous sinuses or optic chiasm is appreciated. I have personally reviewed the images and the above interpretation and agree with the findings. Opal Thapa MD IMG MRI ORDERABLES documented in this encounter Visit Diagnoses Not on filedocumented in this encounter Care Teams Information Technology Teacher Relationship Specialty Start Date End Date Cayla Yeager FNP [address] [place] [address] PCP - General 05/30/09 documented as of this encounter
--- OUTSIDE RECORDS SUMMARY | 2024-06-12 13:45 | XMS_ITS | Encounter Summary ---
Author Organization [facility] [place] [address] Care Team Providers Care Executive Wellness Programs Director Name Role Phone Cayla Yeager APRN Primary Care Provider + Encounter Details Date Type Department Care Team (Late st Contact Info) Description 09/17/2010 9:00 AM EST Procedure [place] [address] Ptati Plunkett, RN Social History Tobacco Use Types Packs/Day [...] PM EDT Hospital [place] [address] [place] [address] 07/09/2024 8:30 AM EDT Appointment XRay at [address] [address] Alena Pizarro CASE [place] [address] 07/17/2024 8:00 AM EDT Procedure [place] [address] 08/26/2024 8:00 AM EST Office [place] [address] 08/27/2024 9:00 AM EST Clinical [place] [address] documented as of this encounter Visit Diagnoses Not on filedocumented in this encounter Care Teams Executive Wellness Programs Director Relationship Specialty Start Date End Date Cayla Yeager APRN [address] [place] [address] PCP - General 08/28/10 10/01/10 documented as of this encounter
--- OUTSIDE RECORDS SUMMARY | 2024-06-12 13:45 | XMS_ITS | Encounter Summary ---
Author Organization [facility] [place] [address] Care Team Providers Care Gang Sawyer Name Role Phone Cayla Yeager LOUIE Primary Care Provider + Encounter Details Date Type Department Care Team (Late st Contact Info) Description 09/17/2010 10:30 AM EST Procedure [place] [address] Rigoberto Reid MD [facility] [place] [address] Social History Tobacco Use Types Packs/Day Years [...] PM EDT Hospital [place] [address] Alena Pizarro APRN [facility] [place] [address] 07/09/2024 8:30 AM EDT Appointment XRay at [address] [phone] [place] [address] 07/17/2024 8:00 AM EDT Procedure [place] [address] 08/26/2024 8:00 AM EST Office [place] [address] 08/27/2024 9:00 AM EST Clinical [place] [address] documented as of this encounter Visit Diagnoses Not on filedocumented in this encounter Care Teams Gang Sawyer Relationship Specialty Start Date End Date Cayla Yeager APRN [address] [place] [address] PCP - General 08/28/10 10/01/10 documented as of this encounter
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
--- OUTSIDE RECORDS SUMMARY | 2024-06-12 13:45 | XMS_ITS | Encounter Summary ---
Author Organization [facility] [place] [address] Care Team Providers Care Buildings And Grounds Director Name Role Phone Kasey Rader MD Primary Care Provider [phone] Encounter Details Date Type Department Care Team (Late st Contact Info) Description 09/04/2012 2:30 PM EST - 09/04/2012 3:00 PM EST [place] [address] Vianney Wolf MD [facility] [place] [address] UPPER GI ENDOSCOPY Social History Tobacco Use Types Packs/Day Years [...] GI ENDOSCOPY: WHAT TO EXPECT AT HOME ([place]) documented in this encounter Medications at Time [...] Has since had some revisional surgery in [place] to her fundoplication. I have no info [...] PM EDT Hospital [place] [address] [place] [address] 07/09/2024 8:30 AM EDT Appointment XRay at [address] [phone] [place] [address] 07/17/2024 8:00 AM EDT Procedure [place] [address] 08/26/2024 8:00 AM EST Office Visit [place] [address] 08/27/2024 9:00 AM EST Clinical Support [place] [address] documented as of this encounter Procedures Procedure [...] 6:20 PM EST) Surgical Pathology Report ? [facility] ? Provider: ?? VIANNEY WOLF ??Pt. Name: ?? MEAGNA BOLANOS ? Acc #: ?[id number] ?Pt. ? Col Date: ?? 09/04/2012 ?/Sex: [...] HX of GERD, ? [facility] 09/04/2012 6:20 PM EST Vianney Wolf MD PATHOLOGY/CYTOLOGY ORDERABLES Performing Organization Address [facility] Co de Phone Number EUGENE BROOKS * Specimen to Pathology (surgical or derm) (09/04/2012 4:02 PM EST) AP Specimen 09/04/2012 4:02 PM EST 09/04/2012 4:02 PM EST Narrative [facility] - 09/04/2012 4:02 PM EST Specimen requisition ordered. ??Separate Pathology report to follow Vianney Wolf MD PATHOLOGY/CYTOLOGY ORDERABLES Performing Organization Address City/[facility] Co de Phone Number EUGENE BROOKS * UPPER GI ENDOSCOPY (09/04/2012 3:37 PM EST) UPPER GI ENDOSCOPY [facility] Patient Name: Meagan Bolanos ? Procedure Date: 09/04/2012 3:37 PM ? [facility]: [id number] ? Date of : 1975 ? Age: 37 ? Order #: [id number] ? Procedure: ? Upper GI endoscopy Indications: ? Epigastric abdominal pain, Assessment ? following Magdaleno fundoplication Providers: ? Vianney Wolf MD, Alexandra ? CHELO Taylor, Camille López, ? [employer] Department Head Referring MD: ?Kasey Rader MD Medicines: ? Midazolam 4 mg [...] Date Dose Rate Site fentaNYL 50mcg/mL injection ONCE PRN, Starting on Fri09/04/12 at 1547, Until Fri09/04/12 at 1936, Pain, Intra-Operative (Intra-Procedure), Routine Given 09/04/2012 3:54 PM EST 50 mcg Right Arm Given 09/04/2012 3:51 PM EST 50 mcg Ri ght Arm Given 09/04/2012 3:47 PM EST 100 mcg Ri ght Arm midazolam (VERSED) injection ONCE PRN, Starting on Fri09/04/12 at 1547, Until Fri09/04/12 at 1936, Sleep, Intra-Operative (Intra-Procedure), Routine Given 09/04/2012 3:54 PM EST 0.5 mg Right Arm Given 09/04/2012 3:50 PM EST 1 mg Ri ght Arm Given 09/04/2012 3:49 PM EST 0.5 mg Ri ght Arm sodium chloride 0.9% infusion 100 mL/hr, Intravenous, [...] 1447 (New Bag - Prov ider: Blanche Gonzalez, RN)1700 (Stopped - Provider: Niraj Kearns RN) PRN Medication Order 09/02/2012 09/03/2012 09/04/2012 fentaNYL 50mcg/mL injection (CANCELED) ONCE PRN, Starting on Fri09/04/12 at 1547, Until Fri09/04/12 at 1936, Pain, Intra-Operative (Intra-Procedure), Routine 1547 (Given - Provid er: Alexandra Taylor RN)1551 (Given - Provider: Alexandra Taylor RN)1554 (Given - Provider: Alxeandra Taylor RN) midazolam (VERSED) injection (CANCELED) ONCE PRN, Starting on Fri09/04/12 at 1547, Until Fri09/04/12 at 1936, Sleep, Intra-Operative (Intra-Procedure), Routine 1547 (Given - Provid er: Alexandra Taylor RN)1549 (Given - Provider: Alexandra Taylor RN)1550 (Given - Provider: Alexandra Taylor, CHELO)1554 (Given - Provider: Alexandra Taylor RN) documented in this encounter Care Teams Buildings And Grounds Director Relationship Specialty Start Date End Date Kasey Rader MD [address] [place] [address] PCP - General 10/02/10 11/22/12 documented as of this encounter
--- OUTSIDE RECORDS SUMMARY | 2024-06-12 13:45 | XMS_ITS | Encounter Summary ---
Author Organization [facility] Address [address] [place] [address] Care Team Providers Care Still Operator Gin Name Role Phone Cayla Yeager KAVYA Primary Care Provider [phone] Encounter Details Date Type Department Care Team (Latest Contact Info) Description 09/21/2009 15:50 EST - 09/21/2009 23:59 EST Hospital Encounter [facility] - [facility] [place] [address] Kasey Rader MD [address] [place] [phone] Discharge Disposition: Home or Self Care Social [...] by mouth daily. 30 Tab 0 08/05/2009 docusate sodium (COLACE) 250 mg capsule Take 1 Cap by mouth 2 times daily. 20 Cap 0 08/05/2009 09/25/2009 hydrocodone-acetaminophen (VICODIN) 5-500 mg per tablet Take 1-2 Tabs by mouth every 6 hours as needed for Pain. 30 Tab 0 08/21/2009 09/25/2009 meclizine (ANTIVERT) 25 mg tablet Take 25 mg by mouth daily as needed. 09/25/2009 documented as of this encounter Discharge Disposition Disposition Code Departure Means Destination Home or Self Half-Way documented in this encounter Plan of Treatment Not on file documented as of this encounter Visit Diagnoses Not on filedocumented in this encounter Care Teams Still Operator Gin Relationship Specialty Start Date End Date Cayla Yeager FNP [address] [place] [address] PCP - General 05/30/09 documented as of this encounter
--- OUTSIDE RECORDS SUMMARY | 2024-06-12 13:45 | XMS_ITS | Encounter Summary ---
Author Organization [facility] Address [address] [place] [address] Care Team Providers Care Occupational Therapy Department Chair Name Role Phone Cayla Yeager Primary Care Provider [phone] Encounter Details Date Type Department Care Team (Late st Contact Info) Description 10/23/2009 Abstract [facility] OBGYN Services - [address] [id number] Cayla Yeager FNP [address] [place], [place] [phone] Unspecified symptom associated with female genital organs Social History Tobacco Use Types Packs/Day Years [...] as of this encounter Visit Diagnoses Diagnosis Unspecified symptom associated with female genital organs documented in this encounter Care Teams Occupational Therapy Department Chair Relationship Specialty Start Date End Date Cayla Yeager FNP [address] [place] [address] PCP - General 05/30/09 documented as of this encounter
--- OUTSIDE RECORDS SUMMARY | 2024-06-12 13:45 | XMS_ITS | Encounter Summary ---
Author [facility] [place] [address] Care Team Providers Care Product Steward Name Role Phone Mike Goodman DNP Primary Care Provider Encounter Details Date Type Department Care Team (Late st Contact Info) Description 02/17/2004 [place] [phone] Lena Howard MD OBSTETRICS & GYNECOLOGY Social History Tobacco Use Types Packs/Day Years Used Date Smoking Tobacco: Never Assessed [facility] Utilities Answer Date Recorded In the [...] place to sleep or slept in a fdc (including now)? No 10/16/2023 IPV Inpatient Questions [...] PM EDT Hospital [place] [address] [place] [address] 07/09/2024 8:30 AM EDT Appointment XRay at [address] [address] [place] [address] 07/17/2024 8:00 AM EDT Procedure [place] [address] 08/26/2024 8:00 AM EST Office [place] [address] 08/27/2024 9:00 AM EST Clinical [place] [address] documented as of this encounter Procedures Procedure Name Priority Date/Time Associated Diagnosis Comments SURGICAL PATHOLOGY REPORT Routine 02/17/2004 1:03 PM EDT documented in this encounter Results * Surgical Pathology Report (02/17/2004 1:03 PM EDT) Surgical Pathology Report [id number] ? Location: The signing pathologist has (i) examined the relevant preparation(s) for the specimen(s) and (ii) rendered or confirmed the diagnosis(es). . ?Pathology Surgical Pathology Final Report Clinical Information Specimen Submitted: A - Labial cyst. Clinical History: 2 - 3 wk with (L) labial minora swelling. ??C.D.: (__ILLEGIBLE__) cyst. Gross Description Labeled/Fixativ e: ? Labeled with the patient's name, formalin. Qty/Size/Weight : ?One, 0.8 x 0.5 x 0.5 cm. Tissue Description: ?? Ovoid, nodular portion of pink-dukes tissue. ?Sectioning reveals a thin-walled cyst containing ?hernandez-white, granular material. Sections/Proces sing: ??Trisected. ??(T1) ??aje/EJR Microscopic Description Slides reviewed, microscopic description not recorded. Diagnosis Left labial cyst, excision: ?? Benign Mullerian cyst. CR-0 02/21/04 [facility] 02/23/04 Verified by: ? José Miguel Metzger MD ?Pathologist ?(Electronic Signature) The attending pathologist whose signature appears on this report has reviewed all diagnostic slides and has edited the gross and/or microscopic portion of the report in rendering the final pathologic diagnosis. EUGENE BROOKS 02/17/2004 1:03 PM EDT Lena Howard MD PATHOLOGY/CYTOLOGY O RDERABLES [facility] documented in this encounter Visit Diagnoses Not on filedocumented in this encounter Care Teams Product Steward Relationship Specialty Start Date End Date Mike Goodman DNP [address] [place] [address] PCP - General Family Medicine 08/22/22 documented as of this encounter
--- OUTSIDE RECORDS SUMMARY | 2024-06-12 13:45 | XMS_ITS | Encounter Summary ---
Author Organization [facility] [place] [address] Care Team Providers Care Technology Assistant Name Role Phone Cayla Yeager LOUIE Primary Care Provider + Encounter Details Date Type Department Care Team (Latest Contact Info) Description 08/28/2010 9:30 AM EST Initial [place] [address] Rigoberto Reid MD [facility] [address] [place] [address] Discharge Disposition: Home Social History Tobacco Use [...] PM EDT Hospital [place] [address] [place] [address] 07/09/2024 8:30 AM EDT Appointment XRay at [address] [phone] [place] [address] 07/17/2024 8:00 AM EDT Procedure [place] [address] 08/26/2024 8:00 AM EST Office [place] [address] 08/27/2024 9:00 AM EST Clinical [place] [address] documented as of this encounter Visit Diagnoses Not on filedocumented in this encounter Care Teams Technology Assistant Relationship Specialty Start Date End Date Cayla Yeager APRN [address] [place] [address] PCP - General 08/28/10 10/01/10 documented as of this encounter
--- OUTSIDE RECORDS SUMMARY | 2024-06-12 13:45 | XMS_ITS | Encounter Summary ---
Author Organization [facility] Address [address] [place] [address] Care Team Providers Care Lab Manager Name Role Phone Cayla Yeager KAVYA Primary Care Provider [phone] Encounter Details Date Type Department Care Team (Late st Contact Info) Description 03/13/2023 Lab Requisition [facility] Pathology & Laboratory Medicine - [address] [address] Outr Resulting Lab, Provider Social History Tobacco [...] Procedure Name Priority Date/Time Associated Diagnosis Comments CELIAC DISEASE PANEL Routine 03/13/2023 16:21 EDT documented in this encounter Results * CELIAC DISEASE PANEL (03/13/2023 16:21 EDT) Tissue Transglutaminase Antibody IGA <1.2 <4.0 U/mL 03/17/2023 13:03 EDT [facility] Comment: A negative result may be due to IgA deficiency and does not rule out celiac disease. ? Negative: ??<4.0 U/mL ? Weak Positive: ??4.0 - 10.0 U/mL ? Positive: ??>10.0 U/mL Results were obtained with the [employer] L[employer] R h-tTG IgA AJ assay on the [employer] DS[employer]. IgA 212 85 - 499 mg/dL 03/17/2023 13:03 EDT [facility] Celiac Disease Interpretation Negative Serology. Celiac disease unlikely. Approximately 10% of patients with celiac disease are seronegative. Patients who are already adhering to a gluten-free diet may also be seronegative. If celiac disease is highly clinically suspected, referral to gastroenterology for additional evaluation is recommended. 03/17/2023 13:03 EDT [facility] Blood VENOUS BLOOD / Unknown 03/13/2023 16:21 EDT 03/13/2023 21:48 EDT Provider Outr Resulting Lab IMMUNOLOGY A ND SEROLOGY ORDERABLES Performing Organization Address City/State/[facility] Co de Phone Number [facility] [address] [place] [address] documented in this encounter Visit Diagnoses Not on filedocumented in this encounter Care Teams Lab Manager Relationship Specialty Start Date End Date Cayla Yeager FNP [address] [place] [address] PCP - General 05/30/09 documented as of this encounter
--- OUTSIDE RECORDS SUMMARY | 2024-06-12 13:45 | XMS_ITS | Encounter Summary ---
Author Organization [facility] Address [facility] [place] [address] Care Team Providers Care Financial Sales Associate Name Role Phone Kasey Rader MD Primary Care Provider [phone] Encounter Details Date Type Department Care Team (Late st Contact Info) Description 09/03/2012 3:00 PM EST Follow-[place] [address] Sheridan Cassidy MD [facility] [address] GERD (gastroesophageal reflux disease) (Primary Dx); Gastroesophageal reflux Discharge Disposition: Home Social History Tobacco Use Types Packs/Day Years Used Date Smoking Tobacco: Never Assessed Sex and Gender Information Value Date Recorded Sex Assigned at Not on file Gender Identity Not on file Sexual Orientation Not on file documented as of this encounter Last Filed Vital Signs Vital Sign Reading Time Taken Comments Blood Pressure 125/79 09/03/2012 2:50 PM EST Pulse 86 09/03/2012 2:50 PM EST Temperature - - Respiratory Rate - - Oxygen Saturation 98% 09/03/2012 2:50 PM EST Inhaled Oxygen Concentration - - Weight 73.5 kg (162 lb) 09/03/2012 2:50 PM EST Height - - Body Mass Index - - documented in this encounter Progress Notes * Sheridan Cassidy MD - 09/28/2012 9:06 AM EST Presents with a complaint of epigastric pain for several months. She is s/p Magdaleno with excellent initial result. She developed acute cholecystitis in [place] and since her [place] she has had epigastric pain, dysphagia and bloating. A surgeon in [place] re-operated on her and apparently took down half of her wrap. Swallow today reveals and intact wrap with no reflux and passage of contrast without delay. There may be some int herniation on her swallow. I think she requires work up with EGD and repeat manometry to evaluate her fundoplication. She is here for just over 1 week so we will try to get this done while she is here. I suspect she will need redo surgery at some point in the future. Follow up after her studies. documented in this encounter Plan of Treatment Upcoming Encounters Date Type Department Care Team (Late st Contact Info) Description 06/15/2024 3:00 PM EDT Hospital [place] [address] [place] [address] 07/09/2024 8:30 AM EDT Appointment XRay at [address] [address] [place] [address] 07/17/2024 8:00 AM EDT Procedure [place] [address] 08/26/2024 8:00 AM EST Office [place] [address] 08/27/2024 9:00 AM EST Clinical [place] [address] documented as of this encounter Results * XR Fluoro Barium swallow (09/04/2012 8:46 AM EST) Anatomical Region Laterality Modality N/A Radiographic Radha ging 09/04/2012 8:46 AM EST Narrative 09/04/2012 4:46 PM EST Examination BARIUM SWALLOW Clinical History Failed fundoplication please assess for herniation Comparison None. Technique Single contrast barium swallow was performed with images acquired under intermittent fluoroscopy. ??13 mm barium tab was also administered as part of the study. Findings The esophagus distends normally without evidence of focal filling defect. ?? Esophageal motility is normal with prompt clearance of contrast from the esophagus into the stomach. ??An intact fundoplication wrap is visualized. ??The wrap appears to be at the level of the diaphragm with a portion that arises intermittently above the level of the diaphragm. ??There is no contrast seen within the wrap. ??No gastroesophageal reflux is visualized during the study. ?? Limited views of the stomach are normal. ??The hypopharynx distends well. ??AP views of the hypopharynx demonstrate a symmetric swallow. A 13 mm tablet was administered by mouth and passed promptly into the stomach. ?? Impression 1. Intact fundoplication wrap appears to be at the level of the diaphragm, with a portion which arises intermittently above the level of the diaphragm. ?? 2. No gastroesophageal reflux visualized during the study. ?? 3. Total fluoro time 40 sec. ?? Film and interpretation reviewed by the attending Procedure Note Dorene Kruse MD - 09/04/2012 Examination BARIUM SWALLOW Clinical History Failed fundoplication please assess for herniation Comparison None. Technique Single contrast barium swallow was performed with images acquired under intermittent fluoroscopy. 13 mm barium tab wasalso administered as part of the study. Findings The esophagus distends normally without evidence of focal filling defect. Esophageal motility is normal with prompt clearance of contrast from the esophagus into the stomach. An intact fundoplication wrap is visualized.The wrap appears to be at the level of the diaphragm with a portion thatarises intermittently above the level of the diaphragm. There is no contrastseen within the wrap. No gastroesophageal reflux is visualized during thestudy. Limited views of the stomach are normal. The hypopharynx distends well. AP views of the hypopharynx demonstrate a symmetric swallow. A 13 mm tablet was administered by mouthand passed promptly into the stomach. Impression 1. Intact fundoplication wrap appears to be at the level of the diaphragm,with a portion which arises intermittently above the level of the diaphragm. 2. No gastroesophageal reflux visualized during the study. 3. Total fluoro time 40 sec. Film and interpretation reviewed by the attending Sheridan Cassidy MD IMG FLUORO ORDERABLE S documented in this encounter Visit Diagnoses Diagnosis GERD (gastroesophageal reflux disease)- Primary Esophageal reflux Gastroesophageal reflux Esophageal reflux GERD (gastroesophageal reflux disease) Esophageal reflux documented in this encounter Care Teams Financial Sales Associate Relationship Specialty Start Date End Date Kasey Rader MD [address] [place] [address] PCP - General 10/02/10 11/22/12 documented as of this encounter
--- OUTSIDE RECORDS SUMMARY | 2024-06-12 13:45 | XMS_ITS | Encounter Summary ---
Author Organization [facility] Address [address] [place] [address] Care Team Providers Care Sawyer Helper Name Role Phone Cayla Yeager Odette HOFF Primary Care Provider [phone] Encounter Details Date Type Department Care Team (Latest Contact Info) Description 10/21/2009 11:41 EST - 10/21/2009 23:59 [facility] Hospital Encounter [facility] [address] [place] [address] Client, MD Efren Discharge Disposition: Home or Self Care Social [...] Code Departure Means Destination Home or Self [facility] documented in this encounter Plan of Treatment Not on file documented as of this encounter Procedures Procedure Name Priority Date/Time Associated Diagnosis Comments MUMPS ANTIBODY IGG Routine 10/21/2009 12 :01 EST documented in this encounter Results * MUMPS ANTIBODY IGG (10/21/2009 12:01 EST) Mumps Antibody IgG Positive [facility] Blood specimen (specimen) 10/21/2009 12:01 EST 10/21/2009 12:03 EST Nurse Employee Health IMMUNOLOGY AND SER OLOGY ORDERABLES Performing Organization Address City/State/[facility] Co de Phone Number [facility] [address] [place] [address] documented in this encounter Visit Diagnoses Not on filedocumented in this encounter Care Teams Sawyer Helper Relationship Specialty Start Date End Date Cayla Yeager FNP [address] [place] [address] PCP - General 05/30/09 documented as of this encounter
--- OUTSIDE RECORDS SUMMARY | 2024-06-12 13:45 | XMS_ITS | Referral Summary ---
Author Organization [facility] Address [address] [place] [address] Care Team Providers Care Cashier Supervisor Name Role Phone Cayla Yeager TROLLEY WORKER Primary Care Provider [phone] Allergies Active Allergy Reactions Criticality Noted Date Comments Bupropion 08/05/2009 Medications Medication Sig Dispensed Refills Start Date End Date Status pantoprazole (PROTONIX) 20 mg tablet Take 2 Tabs by mouth daily. 30 Tab 0 08/05/2009 Active acetaminophen (TYLENOL) 500 mg tablet Take 2 Tabs by mouth as needed for Pain. Last dose 3 hrs ago Active oxycodone-acetaminophe n (PERCOCET) 5-325 mg per tablet Take 1 Tab by mouth every 4 hours as needed for Pain. 15 Tab 0 08/06/2009 Active IBUPROFEN ORAL Take by mouth as needed. Active PEG 3350-Electrolytes (MIRALAX) 17 gram packet Take 17 g by mouth daily. 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 08/16/2009 Overview: ICD10 Update Auto Replacement Endometriosis of other specified sites 9 Nausea 08/09/2009 Overview: ICD10 Update Auto Replacement Immunizations Name Administration Dates Next Due DTaP Vaccine (INFANRIX) <7YO IM 05/17/19 82,12/15/1975,04/15/1975,1974, 1974 Measles Vaccine SQ 12/15/1975 Mumps Vaccine SQ 05/17/1982 PolioVirus Vaccine OPV Oral 05/17/1982, 6,1974,1974 Rubella Vaccine SQ 12/15/1975 Social History Tobacco Use Types Packs/Day Years [...] - - Body Mass Index - - Plan of Treatment Not on file Care Teams Cashier Supervisor Relationship Specialty Start Date End Date Cayla Yeager FNP [address] [place], [place] [address] PCP - General 05/30/09
--- OUTSIDE RECORDS SUMMARY | 2024-06-12 13:45 | XMS_ITS | Clinical Summary ---
Author Organization [facility] Address [address] [place] [address] Care Team Providers Care Environmental Sciences Professor Name Role Phone Cayla Yeager BAG MAKING MACHINE TENDER Primary Care Provider [phone] Allergies Active Allergy Reactions Criticality Noted Date [...] Oral 05/17/1982, 6,1974,1974 Rubella Vaccine SQ 12/15/1975 Surgical History Surgery Date Site/Laterality Comments SECTION ABDOMEN SURGERY 3 laproscopic surgeries and 1 surgery to remove a endometrial mass KNEE SURGERY x 5 Medical History Medical History Date Comments Endometriosis c cyst removal Social History Tobacco Use Types Packs/Day Years Used Date Smoking Tobacco: Never Comments:no Alcohol Use Standard Drinks/Week Comments No 0 (1 standard drink = 0.6 oz pur e alcohol) no Sex and Gender Information Value Date Recorded Sex Assigned at Not on file Gender Identity Not on file Sexual Orientation Not on file Obstetrics History Last Filed Vital Signs Vital Sign Reading Time Taken Comments Blood Pressure 125/93 09/25/2009 1526 EST Pulse 94 09/25/2009 1526 EST Temperature 36.4 ??C (97.5 ??F) 09/25/2009 1526 EST Respiratory Rate 16 09/25/2009 1526 EST Oxygen Saturation 97% 09/25/2009 1526 EST Inhaled Oxygen Concentration - - Weight - - Height - - Body Mass Index - - Plan of Treatment Health Maintenance Due Date Last Done Comments Hepatitis C Screen 1974 Hepatitis B Vaccine (1 of 3 - 19+ 3-dose series) 06/08 COVID-19 Vaccine (2022- season) 2023 Care Teams Environmental Sciences Professor Relationship Specialty Start Date End Date Cayla Yeager FNP [address] [place] [address] PCP - General 05/30/09
--- OUTSIDE RECORDS SUMMARY | 2024-06-12 13:45 | XMS_ITS | Encounter Summary ---
Author Organization [facility] Address [address] [place] [address] Care Team Providers Care Under Seal Operator Name Role Phone Cayla Yeager Odette HOFF Primary Care Provider [phone] Encounter Details Date Type Department Care Team (Late st Contact Info) Description 10/31/2021 Lab Requisition [facility] Pathology & Laboratory Medicine - [address] [address] [address] [place] [address] [place] [phone] Encounter for other general examination Social History Tobacco Use Types Packs/Day Years [...] Date/Time Associated Diagnosis Comments SURGICAL PATHOLOGY Today 10/31/2021 9: 21 EST Encounter for other general examination documented in this encounter Results * SURGICAL PATHOLOGY (10/31/2021 9:21 EST) Note to Patient The following pathology results have been interpreted by your pathologist and may be available to you before your health provider has had the opportunity to review them. Please allow time for your provider to receive these results and explore management options, if applicable. 11/02/2021 13:08 [facility] Final Diagnosis A. SKIN OF LABIA MINORA, RIGHT, EXCISION: - Mucinous cyst. 11/02/2021 13:08 [facility] Attestation By the signature below, the attending physician certifies that they have 1) personally conducted a gross and/or microscopic examination of the described specimen(s), and/or personally interpreted the results of laboratory testing of the described specimen(s), and 2) personally rendered or confirmed the above diagnosis. 11/02/2021 13:08 [facility] at 1308 Clinical History R labial cyst 11/02/2021 13:08 [facility] Gross Description A. Received in formalin labelled with proper patient identification (initials F, P) and right labial cyst is a 1.4 x 0.8 x 0.7 cm ovoid portion of dukes soft tissue. The outer surface is inked. Sectioning reveals a smooth-walled cyst filled with somewhat mucinous dukes material. No firm areas or excrescences are identified. Two sales representative door to door sections are submitted in A1. RICHARD MITCHELL(ASCP) 11/01/2021 8:11 11/02/2021 13:08 [facility] Performing Lab [facility] 11/02/2021 13:08 [facility] Scanned Images 11/02/2021 13:08 [facility] Tissue STRUCTURE OF RIGHT LABIUM MINUS / Unknown 10/31/2021 9:21 EST 10/31/2021 17:33 EST [address] PATHOLOGY ORDERABLES [facility] [address] [place] [address] documented in this encounter Visit Diagnoses Diagnosis Encounter for other general examination documented in this encounter Care Teams Under Seal Operator Relationship Specialty Start Date End Date Cayla Yeager FNP [address] [place] [address] PCP - General 05/30/09 documented as of this encounter
--- OUTSIDE RECORDS SUMMARY | 2024-06-12 13:45 | XMS_ITS | Encounter Summary ---
Author Organization [facility] Address [address] [place] [address] Care Team Providers Care Putty Glazer Name Role Phone Cayla Yeager Odette HOFF Primary Care Provider [phone] Encounter Details Date Type Department Care Team (Late st Contact Info) Description 08/24/2009 9:50 EST - 08/24/2009 23:59 [facility] Hospital Encounter [facility] [address] [place] [address] Ayo Webb MD [address] [facility], [address] [place] [phone] Discharge Disposition: Auto Discharge Social History Tobacco [...] for Pain. Last dose 3 hrs ago oxycodone-acetaminophen (PERCOCET) 5-325 mg per tablet Take [...] for Pain. 30 Tab 0 08/21/2009 09/25/2009 documented as of this encounter Discharge Disposition Disposition Code Departure Means Destination Auto Discharge Home documented in this encounter Plan of Treatment Not on file documented as of this encounter Visit Diagnoses Not on filedocumented in this encounter Care Teams Putty Glazer Relationship Specialty Start Date End Date Cayla Yeager FNP [address] [place] [address] PCP - General 05/30/09 documented as of this encounter
--- OUTSIDE RECORDS SUMMARY | 2024-06-12 13:45 | XMS_ITS | Encounter Summary ---
Author Organization [facility] [place] [address] Care Team Providers Care Securities Compliance Examiner Name Role Phone Arely Arzola LOUIE Primary Care Provider [phone] Encounter Details Date Type Department Care Team (Late st Contact Info) Description 11/25/2012 5:55 PM EDT Anesthesia Event Main [place] [address] Mau Fonseca MD [facility] [place] [address] Jayant Rodriguez CRNA [facility] [place] [address] Anesthesia Record Procedure Summary Procedure Name Responsible Anesthesiologist Anesthesia Start Time Anesthesia Stop Time LAPAROSCOPIC REVISION OF GABRIELLA FUNDOPLASTY (WRVU 48.75) (Abdomen) Mau Fonseca MD 11/25/12175411/25/122028 Events Date Time Event Comment 11/25/20121754 Start 1755 2028 Stop Meds * Agents No agents on file. * Blood No blood administrations on file. Lines, Drains, and Airways Type Details Placement Removal Urethral Catheter 11/25/12; indwelling double lumen catheter; 100% silicone; 16; inserted (CHELO Mcgee); drainage bag to dependent drainage (urine clear, light yellow.); 11/25/12; 1832 11/25/12 0000 by Traci Mcgee RN 11/25/12 1832 by Ryan Leyva RN Incision 11/25/12; abdomen (trocar sites time 4); 05/13/22 (LDA cleanup utility RA#[id number]); 1715 (LDA cleanup utility RA#[id number]) 11/25/12 0000 by Traci Mcgee RN 05/13/22 1715 by Genie Retana (RETIRED) Peripheral IV Line - Single Lumen 11/25/12; 1610; 11/27/12; 1503 11/25/12 1610 by Maura Mojica RN 11/27/12 1503 by Syeda Haque RN documented in this encounter Social History Tobacco Use Types Packs/Day Years Used Date Smoking Tobacco: Never Assessed Alcohol Use Standard Drinks/Week Comments No 0 (1 standard drink = 0.6 oz pur e alcohol) Sex and Gender Information Value Date Recorded Sex Assigned at Not on file Gender Identity Not on file Sexual Orientation Not on file documented as of this encounter OR Notes * Anesthesia Postprocedure Evaluation - Mau Fonseca - 11/25/2012 8:51 PM EDT Patient: Mora Bolanos Procedure(s) Performed: Procedure(s): LAPAROSCOPIC REVISION OF GABRIELLA FUNDOPLASTY ENDOSCOPY, UPPER GI, DIAGNOSTIC, WITH OR WITHOUT SPECIMENS Patient location: PACU Post-op pain: Adequate analgesia Post-op nausea: no nausea or vomiting Last Vitals: Filed Vitals: 11/25/122044 BP: 113/57 Pulse: 59 Temp: Resp: Post-op cardiovascular and respiratory status: is stable Level of consciousness: awake, alert and lethargic Complications: no apparent complications, tolerated the procedure well and no evidence of recall Fluid Status: normal * Anesthesia Preprocedure Evaluation - Mau Fonseca - 11/25/2012 5:51 PM EDT Today I evaluated Mora Bolanos a 37 y.o. female. Procedure(s): LAPAROSCOPIC REVISION OF GABRIELLA FUNDOPLASTY ENDOSCOPY, UPPER GI, DIAGNOSTIC, WITH OR WITHOUT SPECIMENS Patient Active Problem List Diagnoses ??? Gastroesophageal reflux -EGD, 07/18/11: medium hiatal [...] body of the esophagus -Upper GI Series, Burrell Kirill, 08/24/09: question retained food in stomach, otherwise normal. -EGD, [facility], Dr. Julius Zepeda, 03/15/10: small hiatal hernia noted. Distal esophagitis noted, ? Queen???s. ??? Dyspepsia No past medical history on file. Past Surgical History Procedure Date ??? Upper gi endoscopy, exam 09/04/2012 UPPER GI ENDOSCOPY performed by Didier Jones MD at [facility] ??? Upper gi endoscopy, biopsy 09/04/2012 EGD WITH BIOPSY performed by Didier Jones MD at [facility] History Substance Use Topics ??? Smoking status: Not on file ??? Smokeless tobacco: Not on file ??? Alcohol Use: No Allergies Allergen Reactions ??? Onion Anaphylaxis ??? Bupropion Hcl Other (See Comments) serum sickness ??? Metoclopramide Hcl Other (See Comments) Unknown Medications: MAR and/or home medications have been reviewed. Physical Exam: There were no vitals filed for this visit. There is no height or weight on file to calculate BMI. Airway Assessment: Mallampati: I TM distance: >3 FB Neck ROM: full Cardiovascular Assessment: Rhythm: regular Rate: normal (-) murmur cardiovascular exam normal Pulmonary Assessment: pulmonary exam normal Dental Assessment: - normal exam Comment: Multiple fillings Misc Assessment: Patient is wearing No contact(s). IV access: Peripheral line Other exam findings: NPO since 2300, Severe GERD! Anesthesia Plan: ASA 2 general, with a(n) intravenous induction RSI / GETA with routine ASA monitors. Pre-op pepcid and bicitra. Informed Consent: Anesthetic plan and risks discussed with patient. Use of blood products discussed with whom consented to blood products. Plan discussed with TAKER DOWN. Misc. Assessment: documented in this encounter Miscellaneous Notes * Addendum Note - Jayleen Salinas - 09/07/2014 1:55 PM EST Addendum created 09/07/14 1355 by Jayleen Salinas Modules edited: Anesthesia Responsible Staff * Addendum Note - Mana Gomez - 11/26/2012 11:17 AM EDT Addendum created 11/26/12 1117 by Mana Gomez Modules edited:Anesthesia Events, Anesthesia Responsible Staff, SmartForms SmartFormsVN Section for SmartForms 266 documented in this encounter Plan of Treatment Upcoming Encounters Date Type Department Care Team (Late st Contact Info) Description 06/15/2024 3:00 PM EDT Hospital [place] [address] [place] [address] 07/09/2024 8:30 AM EDT Appointment XRay at [address] [address] [place] [address] 07/17/2024 8:00 AM EDT Procedure [place] [address] 08/26/2024 8:00 AM EST Office Visit [place] [address] 08/27/2024 9:00 AM EST Clinical Support [place] [address] documented as of this encounter Visit Diagnoses Not on filedocumented in this encounter Care Teams Securities Compliance Examiner Relationship Specialty Start Date End Date Arely Arzola APRN [address] [facility] [place] [address] PCP - General 11/23/12 09/30/17 documented as of this encounter
--- OUTSIDE RECORDS SUMMARY | 2024-06-12 13:45 | XMS_ITS | Encounter Summary ---
Author Organization [facility] Address [address] [place] [address] Care Team Providers Care Health Technical Writer Name Role Phone Cayla Yeager Odette HOFF Primary Care Provider [phone] Encounter Details Date Type Department Care Team (Late st Contact Info) Description 10/20/2009 9:13 EST - 10/20/2009 23:59 [facility] Hospital Encounter [facility] Ophthalmology - [facility] [address] [place] [address] Rigoberto Bains MD [address] [facility] [address] [place] [address] Discharge Disposition: Home or Self Care Social [...] or Self Half-Way documented in this encounter Consult Notes * Rigoberto Bains MD - 10/20/2009 0000 EST DIVISION OF OPHTHALMOLOGY [facility] CONSULTATION - 10/20/2009 [place] [address] Dear Gene: Thank you for allowing me to see Mrs Bolanos. As you know, I am seeing her in consultation for evaluation of a focal deficit in the vision in her left eye. She says she has been having problems in her left eye for approximately two to three weeks. She says she sees a worm in her vision, but she also says that she has a separate fixed the area that been there for the same amount of time. It seems to be worse in the morning. Dilated fundus exam with extended ophthalmoscopy was performed in both eyes and showed in the righteye, a cup-to-disc ratio of 0.4 with a healthy nerve. She has got an essentially healthy vitreous cavity. She has a pigmented scar at 7:00 and a choroidal small nevus at 3:00. In her left eye, she has a cup-to-disc ratio of 0.4 with what appears to be a relatively healthy-appearing nerve. She may or may not have a minimal amount of optic nerve edema nasally, but that would be trace, if at all. She has a chorioretinal scar at 5:00 and a little vitreous floater. Impression: 1. Vitreous floater left. 2. Possible nerve edema with a visual field defect, left. 3. Pigmented scar, both. 4. Tiny nevus, right. Plan: At this point, she has got I think two problems; she has got a little tiny floater, which is a really normal thing. I am not too worried about that. What bothers me more is this depressed area she has in her visual field that seems to be thick for the past couple weeks. I have got a visual field, which shows somewhat of a visual field defect in that eye, specifically, but with low reliability in terms of the patient's variability. In any case, I am going to have her see Opal Thapa, who is her neuroophthalmologist, for this. Again, the floater that I see it is a normal change and I am not worried about that, it is more visual field defect that concerns me and I am sure Opal will keep you updated to anything she finds pertinent. Thanks again. Sincerely, Electronically Signed by Rigoberto Bains MD 10/27/2009 07:57 Rigoberto Bains MD [facility] [address] [place] [address] - Rigoberto Bains MD - JARVIS Job ID: SM Doc ID: [id number] Ext Doc ID: [id number] cc: *Gene Lan MD* documented in this encounter Plan of Treatment Not on file documented as of this encounter Visit Diagnoses Not on filedocumented in this encounter Care Teams Health Technical Writer Relationship Specialty Start Date End Date Cayla Yeager FNP [address] [place] [address] PCP - General 05/30/09 documented as of this encounter
--- OUTSIDE RECORDS SUMMARY | 2024-06-12 13:45 | XMS_ITS | Encounter Summary ---
Author Organization [facility] Address [facility] [place] [address] Care Team Providers Care Baler Operator Name Role Phone Kasey Rader MD Primary Care Provider [phone] Encounter Details Date Type Department Care Team (Latest Contact Info) Description 09/04/2012 7:49 AM EST - 09/04/2012 11:59 PM [facility] Hospital Encounter XRay at [address] [place] [address] CLINIC, Sheridan Russ MD [facility] [place] [address] GERD (gastroesophageal reflux disease) Discharge Disposition: Home Social History Tobacco Use [...] PM EDT Hospital [place] [address] [place] [address] 07/09/2024 8:30 AM EDT Appointment XRay at [address] [phone] [place] [address] 07/17/2024 8:00 AM EDT Procedure [place] [address] 08/26/2024 8:00 AM EST Office Visit [place] [address] 08/27/2024 9:00 AM EST Clinical Support [place] [address] documented as of this encounter Procedures Procedure Name Priority Date/Time Associated Diagnosis Comments XR FLUORO BARIUM SWALLOW (SINGLE CONTRAST) Routine 09/04/2012 8:46 AM EST GERD (gastroesophageal reflux disease) documented in this encounter Results * XR [...] reviewed by the attending Sheridan Cassidy MD IM FLUORO ORDERABLE S documented in this encounter Visit Diagnoses Diagnosis GERD (gastroesophageal reflux disease) Esophageal reflux documented in this encounter Administered Medications Inactive Administered Medications - up to 3 most recent administrations Medication Order MAR Action Action Date Dose Rate Site barium sulfate (EZPAQUE) oral suspension 150 mL 150 mL, Oral, ONCE, 1 dose, On Fri09/04/12 at 0915, Routine Given 09/04/2012 9:15 AM EST 150 mLs documented in this encounter Care Teams Baler Operator Relationship Specialty Start Date End Date Kasey Rader MD [address] [place] [address] PCP - General 10/02/10 11/22/12 documented as of this encounter
--- OUTSIDE RECORDS SUMMARY | 2024-06-12 13:45 | XMS_ITS | Encounter Summary ---
Author Organization [facility] Address [facility] [place] [address] Care Team Providers Care Java Architect Name Role Phone Kasey Rader MD Primary Care Provider [phone] Encounter Details Date Type Department Care Team (Late st Contact Info) Description 10/02/2010 9:30 AM EST Office [place] [address] Sheridan Cassidy MD [facility] [place] [address] Discharge Disposition: Home Social History Tobacco Use [...] PM EDT Hospital [place] [address] [place] [address] 07/09/2024 8:30 AM EDT Appointment XRay at [address] [phone] Calvino, Alena M, [place] [address] 07/17/2024 8:00 AM EDT Procedure [place] [address] 08/26/2024 8:00 AM EST Office [place] [address] 08/27/2024 9:00 AM EST Clinical [place] [address] documented as of this encounter Visit Diagnoses Not on filedocumented in this encounter Care Teams Java Architect Relationship Specialty Start Date End Date Kasey Rader MD [address] [place] [address] PCP - General 10/02/10 11/22/12 documented as of this encounter
--- OUTSIDE RECORDS SUMMARY | 2024-06-12 13:45 | XMS_ITS | Encounter Summary ---
Author Organization [facility] Address [address] [place] [address] Care Team Providers Care Tram Operator Name Role Phone Cayla Yeager KAVYA Primary Care Provider [phone] Encounter Details Date Type Department Care Team (Late st Contact Info) Description 12/24/[address] [facility] Pathology & Laboratory Medicine - [address] [address] Outr Resulting Lab, Provider Social History Tobacco [...] Name Priority Date/Time Associated Diagnosis Comments PTH INTACT Routine 12/23/2023 13:30 EDT PREALBUMIN Routine 12/23/2023 13:30 EDT documented in this encounter Results * PTH INTACT (12/23/2023 13:30 EDT) Intact PTH 58 19 - 88 pg/mL 12/24/2023 21:48 EDT [facility] Blood VENOUS BLOOD / Unknown 12/23/2023 13:30 EDT 12/24/2023 20:31 EDT Provider Outr Resulting Lab CHEMISTRY & BLOOD GAS ORDERABLES Performing Organization Address City/[facility]/ZIP Co de Phone Number [facility] [address] [place], [place] [id number] * PREALBUMIN (12/23/2023 13:30 EDT) Prealbumin 24 20 - 40 mg/dL 12/25/2023 8:45 EDT [facility] Blood VENOUS BLOOD / Unknown 12/23/2023 13:30 EDT 12/24/2023 20:31 EDT Provider Outr Resulting Lab CHEMISTRY & BLOOD GAS ORDERABLES Performing Organization Address [facility] de Phone Number [facility] [address] [place] [phone] documented in this encounter Visit Diagnoses Not on filedocumented in this encounter Care Teams Tram Operator Relationship Specialty Start Date End Date Cayla Yeager FNP [address] [place] [address] PCP - General 05/30/09 documented as of this encounter
--- OUTSIDE RECORDS SUMMARY | 2024-06-12 13:46 | XMS_ITS | Encounter Summary ---
Author Organization [facility] Address [address] [place] [address] Care Team Providers Care Cuff Setter Name Role Phone Cayla Yeager KAVYA Primary Care Provider [phone] Reason for Visit * Reason Comments Abdominal Pain Patient reports she had a abdominal CT last friday, followup apt scheduled for next friday with Dr. Olmos. Patient presents today with abdominal pain radiating to back and distention. Eye Problem Left eye vision beauchamp ges since this morning. Encounter Details Date Type Department Care Team (Late st Contact Info) Description 08/21/2009 15:25 EST - 08/21/2009 21:39 EST Emergency [facility] Emergency Department - [address] [id number] Ayo Webb MD [address] [facility], [address] [place] [address] Emergency, MD Efren Abdominal Pain; Migraine Aura without Headache (Migraine Equivalents) Discharge Disposition: Home or Self Care Social [...] Sign Reading Time Taken Comments Blood Pressure 106/59 08/21/2009 2100 EST Pulse 64 08/21/2009 2100 EST Temperature 36.7 ??C (98.1 ??F) 08/21/2009 1529 EST Respiratory Rate 16 08/21/2009 2100 EST Oxygen Saturation 99% 08/21/2009 2100 EST Inhaled Oxygen Concentration - - Weight - - Height - - Body Mass Index - - documented in this encounter Discharge Instructions * Discharge Instructions* Ayo Webb MD - 08/21/2009 21:27 EST Images from the original note were not included. Call Dr. Yeager's office to make sure the upper GI study is scheduled for as soon as possible. [facility] Patient Instructions Abdominal Pain in Adults: After Your Visit Your Care Instructions Abdominal pain has many possible causes. Some are not serious and get better on their own in a few days. Others need more testing and treatment. If your pain continues or gets worse, you need to be rechecked and may need more tests to find out what is wrong. Do not ignore new symptoms, such as fever, nausea and vomiting, urination problems, pain that gets worse, or dizziness. These may be signs of a more serious problem. Follow-up care is a diaz part of your treatment and safety. Be sure to make and go to all appointments, and call your doctor if you are having problems. It???s also a good idea to know your test results and keep a list of the medicines you take. How can you care for yourself at home? ?? Rest until you feel better. Drink plenty of fluids to prevent dehydration. Choose water and other caffeine- free clear liquids until you feel better. If you have kidney, heart, or liver disease and have to limit fluids, talk with your doctor before you increase the amount of fluids you drink. If your stomach is upset, eat mild foods, such as rice, dry toast or crackers, bananas, and applesauce. Try eating several small meals instead of two or three large ones. Avoid spicy foods, alcohol, and drinks that contain caffeine until 48 hours after all symptoms havegone away. Do not eat foods that are high in fat. Avoid anti-inflammatory medicines such as aspirin, ibuprofen (Advil, Motrin), and naproxen (Aleve).These can cause stomach upset. Talk to your doctor if you take daily aspirin for another health problem. When should you call for help? Call 911 anytime you think you may need emergency care. For example, call if: ?? You passed out (lost consciousness). You pass maroon or very bloody stools. You vomit blood or what looks like coffee grounds. You have new, severe belly pain. Call your doctor now or seek immediate medical care if: ?? The pain gets worse, especially if it becomes focused in one area of your belly. You have severe pain that does not get better after you pass gas or stool. Coughing or movement makes your belly pain worse. You have a new or higher fever. Your stools are black and tarlike or have streaks of blood. You have abnormal bleeding or discharge from the vagina. You have blood in your urine, it hurts when you urinate, or you have to urinate more often than usual. You are dizzy or lightheaded, or you feel like you may faint. Watch closely for changes in your health, and be sure to contact your doctor if: ?? Your abdominal pain has not improved after 1 day. Where can you learn more? Go to www.[employer].net/fahc Enter E907 in the search box to learn more about Abdominal Pain in Adults: After Your Visit. ?? 2005 - 2008 [employer]. Care instructions adapted under license by [facility], [facility] . This care instruction is for use with your licensed healthcare professional. If you have questions about a medical condition or this instruction, always ask your healthcare professional. [employer] disclaims any warranty or liability for your [...] 08/21/2009 09/25/2009 documented as of this encounter Ordered Prescriptions Prescription Sig Dispensed Refills Start Date End Da te hydrocodone-acetaminophen (VICODIN) 5-500 mg per tablet Take 1-2 Tabs by mouth every 6 hours as needed for Pain. 30 Tab 0 08/21/2009 09/25/2009 documented in this encounter Discharge Disposition Disposition Code Departure Means Destination Home or Self Care Car documented in this encounter ED Notes * Ayo Webb MD - 08/22/2009 1232 EST DOS: 08/21/2009 Chief Complaint Patient presents with ??? Abdominal Pain Patient reports she had a abdominal CT last friday, followup apt scheduled for next friday with . Patient presents today with abdominal pain radiating to back and distention. ??? Eye Problem Left eye vision changes since this morning. Patient is a 34 y.o. female presenting with abdominal pain and eye problem. The history is providedby the patient. Abdominal Pain Episode Onset: about 2 months ago. The problem occurs constantly. The problem has been gradually worsening. The pain is associated with eating. Location: upper abdominal pain and bloating precipitated by oral intake, and accompanied by early satiety. The quality of the pain is cramping and dull. The pain is severe. Associated symptoms include constipation. Pertinent negatives include no fever, nodiarrhea, no hematochezia, no melena, no dysuria, no frequency, no hematuria, no headaches and no myalgias. Vomiting: minimal. vague visual distortion promarily in righ-manriquez visual field c/w past aura prior to migraines, but has had no headacheThe symptoms are worsened by eating. Nothing relieves the symptoms. Past workup includes CT scan (last week, with no pathologic findings). Her past medicalhistory is significant for GERD (but no relief of recent symptoms with PPI use). endometriosis, with several laser ablations, s/p hysterectomy ans unilateral oophorectomy Eye Problem This is a recurrent problem. The current episode started 3 to 5 hours ago. The problem has not changed since onset. There is pain in the right eye. There was no injury mechanism. She is experiencing no pain. There is no history of trauma to the eye. Pertinent negatives include no double vision and no photophobia. Vomiting: minimal. vague visual distortion promarily in righ-manriquez visual field c/w past aura prior to migraines, but has had no headache Review of Systems Constitutional: Negative for fever, chills and unexpected weight change. HENT: Negative for sore throat and trouble swallowing. Eyes: Negative for double vision and photophobia. Respiratory: Negative for cough, choking and shortness of breath. Cardiovascular: Negative for chest pain, palpitations and leg swelling. Gastrointestinal: Positive for abdominal pain and constipation. Negative for diarrhea, melena and hematochezia. Vomiting: minimal. Genitourinary: Negative for dysuria, frequency, hematuria, vaginal bleeding and pelvic pain. Musculoskeletal: Negative for myalgias and back pain. Skin: Negative for rash. Neurological: Negative for syncope and headaches. Hematological: Negative for adenopathy. Psychiatric/Behavioral: Negative for confusion. Past Medical History Diagnosis Date ??? Endometriosis c cyst removal Past Surgical History Procedure Date ??? section ??? Abdomen surgery 3 laproscopic surgeries and 1 surgery to remove a endometrial mass Allergies Allergen Reactions ??? Wellbutrin (Bupropion) History Substance Use Topics ??? Tobacco Use: Never no ??? Alcohol Use: No no No family history on file. BP 106/59 Pulse 64 Temp 36.7 ??C (98.1 ??F) Resp 16 SpO2 99% Physical Exam Nursing note and vitals reviewed. Constitutional: She is oriented. She appears well-developed and well-nourished. No distress. HENT: Head: Normocephalic and atraumatic. Mouth/Throat: Oropharynx is clear and moist. Eyes: Extraocular motions are normal. Pupils are equal, round, and reactive to light. No scleral icterus. Neck: Normal range of motion. Neck supple. No JVD present. No thyromegaly present. Cardiovascular: Normal rate, regular rhythm and normal heart sounds. Pulmonary/Chest: Effort normal and breath sounds normal. No respiratory distress. She exhibits no tenderness. Abdominal: Soft. Bowel sounds are normal. She exhibits no distension and no mass. Tenderness (moderate diffusely, but most prominent in LUQ and epigastrium) is present. She has no guarding. Musculoskeletal: Normal range of motion. She exhibits no edema and no tenderness. Lymphadenopathy: She has no cervical adenopathy. Neurological: She is alert and oriented. No cranial nerve deficit. Coordination normal. Skin: Skin is warm and dry. No rash noted. Psychiatric: She has a normal mood and affect. Her behavior is normal. Radiology orders: FL UPPER GI SERIES W/O AIR CONTRAST Procedures ED Course: Patient with persistent upper abdominal pain, bloating, and early satiety. My review of 08/16/09 CT abdomen reveals extensive low density material with interspersed air in stomach at time of CT. On further questioning, patient states she had taken very little oral intake in the 12+ hours prior to drinking gastrograffin for the CT. She denies trichophagia or other non-food ingestion habits. I discussed with her the possibility that this finding represents delayed gastric emptying due to mechanical gastric outlet obstruction, or could represent gastric bezoar. I will schedule outpatient UGI study prior to patient's scheduled follow--up with Dr. Olmos, and patient is instructed to fol low-up with Dr. Yeager or return to the ED if symptoms worsen in the interim. Discharge Prescriptions New Prescriptions HYDROCODONE-ACETAMINOPHEN (VICODIN) 5-500 MG PER TABLET Take 1-2 Tabs by mouth every 6 hours as needed for Pain. MDM Number of Diagnoses and Management Options Abdominal Pain: General comments: 4 Amount and/or Complexity of Data Reviewed Clinical lab tests: ordered and reviewed Review and summarize past medical records: yes Independent visualization of images, tracings, or specimens: yes (Recent CT abdomen) Encounter Diagnoses Code Name Primary? Qualifier ??? 789.00AP Abdominal Pain ??? 346.00BF Migraine Aura without Headache (Migraine Equivalents) PCP: KAVYA MAHMOOD 08/22/2009 12:57 PM * Jing Cash RN - 08/21/2009 1833 EST Pt states some relief from pain medication. States pain tolerable. * Jing Cash RN - 08/21/2009 1711 EST Pt same as triage. Pt to BR without difficulty. U/A obtained. documented in this encounter Miscellaneous Notes * Scanned Note-Null - Inpatient, Physician - 08/23/2009 0816 EST documented in this encounter Plan of Treatment Not on file documented as of this encounter Procedures Procedure Name Priority Date/Time Associated Diagnosis Comments FL UPPER GI SERIES W/O AIR CONTRAST Routine 08/24/2009 10:36 EST COMPLETE BLOOD COUNT AND DIFFERENTIAL STAT 08/21/2009 18:05 EST BUN STAT 08/21/2009 18:05 EST LIPASE STAT 08/21/2009 18:05 EST CREATININE STAT 08/21/2009 18:05 EST HEPATIC FUNCTION PANEL (ALB,ALK PHOS,ALT,AST,DBIL,TOT LINDSEY,TOT PROT) STAT 08/21/2009 18:05 EST ELECTROLYTES STAT 08/21/2009 18:05 EST POCT TEST, VISUAL READ STAT 08/21/2009 17:27 EST POCT URINE DIPSTICK, CLINITEK STAT 08/21/2009 17:26 EST documented in this encounter Results * FL UPPER GI SERIES W/O AIR CONTRAST (08/24/2009 10:36 EST) Anatomical Region Laterality Modality Other 08/24/2009 10:3 6 EST 08/24/2009 11:00 EST Narrative 08/24/2009 11:00 EST FL UPPER GISERIES WO/AIR CONTR ??Aug 24, 2009 10:36:00 AM Signs and Symptoms/Comments: ?? ABDOMINAL PAIN and bloating ?? Comparison: CT of the abdomen and pelvis dated 08/16/2009 Findings: Single and double-contrast views of the thoracic esophagus, stomach, duodenal bulb and sweep were obtained. Gelatin Plant Supervisor KUB is non specific. There are pelvic phleboliths. There is a small amount of stool throughout the colon. Study shows a normally distensible thoracic esophagus within normal appearing mucosa. The stomach is normally distensible than normal appearing mucosa. However, there are mobile filling defects noted in the stomach likely consistent with residual ingested food. The gastric emptying appears normal within a normal transit time range. The duodenal bulb and sweep are within normal limits. Impression: Moderate amount of residual food in the stomach. No gastric outlet obstruction. Procedure Note 08/24/2009 DC UPPER GISERIES WO/AIR CONTR Aug 24, 2009 10:36:00 AM Signs and Symptoms/Comments: ABDOMINAL PAIN and bloating Comparison: CT of the abdomen and pelvis dated 08/16/2009 Findings: Single and double-contrast views of the thoracic esophagus, stomach, duodenal bulb and sweep were obtained. Gelatin Plant Supervisor KUB is non specific. There are pelvic phleboliths. There is a small amount of stool throughout the colon. Study shows a normally distensible thoracic esophagus within normal appearing mucosa. The stomach is normally distensible than normal appearing mucosa. However, there are mobile filling defects noted in the stomach likely consistent with residual ingested food. The gastric emptying appears normal within a normal transit time range. The duodenal bulb and sweep are within normal limits. Impression: Moderate amount of residual food in the stomach. No gastric outlet obstruction. Ayo Webb MD IMG FLUOROSCOPY ORD ERABLES * HEMAGRAM AND DIFFERENTIAL (08/21/2009 18:05 EST) WBC 9.01 4.0 - 12.4 K/cmm [facility] RBC 4.56 3.86 - 5.04 M/cmm [facility] Hemoglobin 12.8 11.6 - 15.2 gm/dl [facility] HCT 37.8 34.9 - 44.4 % [facility] MCV 83 81 - 98 fl [facility] MCH 28.1 26.7 - 33.3 pg [facility] MCHC 33.9 32.1 - 35.9 gm/dl [facility] PLT 262 141 - 320 K/cmm [facility] RDW-CV 13.8 11.7 - 14.6 % [facility] Neutrophils 59.9 45.5 - 79.7 % [facility] Lymphocytes 31.7 15.0 - 46.8 % [facility] Monocytes 6.1 1.8 - 12.0 % [facility] Eosinophils 1.7 0.6 - 6.9 % [facility] Basophils 0.6 0.2 - 1.4 % [facility] ABS Neutrophils 5.40 2.20 - 8.85 K/cmm [facility] ABS Lymphs 2.86 1.09 - 3.30 K/cmm [facility] ABS Monocytes 0.55 0.1 - 0.8 K/cmm [facility] ABS Eosinophils 0.15 0.03 - 0.61 K/cmm [facility] ABS Basophils 0.05 0.01 - 0.11 K/cmm [facility] Type of Diff: Automated [facility] Blood specimen (specimen) 08/21/2009 18:05 EST 08/21/2009 18:11 EST Ayo Webb MD PACKAGES & DNA PROB E ORDERABLES Performing Organization Address City/State/[facility] Co de Phone Number [facility] [address] [place] [address] * LIVER FUNCTION TESTS (08/21/2009 18:05 EST) Albumin 4.1 3.4 - 4.9 g/dl [facility] Total Protein 7.3 6.5 - 8.3 g/dl [facility] Alkaline Phosphatase 78 38 - 126 U/L [facility] ALT 35 9 - 52 U/L [facility] AST 24 15 - 46 U/L [facility] Unconjugated Bilirubin 0.3 0.1 - 1.1 mg/dl [facility] Conjugated Bilirubin 0.0 0.0 - 0.3 mg/dl [facility] Bilirubin, Total <0.5 0.2 - 1.3 mg/dl [facility] Blood specimen (specimen) 08/21/2009 18:05 EST 08/21/2009 18:11 EST Ayo Webb MD CHEMISTRY & BLOOD G ORDERABLES Performing Organization Address [facility] de Phone Number [facility] [address] [place] [address] * LIPASE (08/21/2009 18:05 EST) Lipase 236 0 - 250 U/L [facility] Blood specimen (specimen) 08/21/2009 18:05 EST 08/21/2009 18:11 EST Ayo Webb MD CHEMISTRY & BLOOD G ORDERABLES Performing Organization Address [facility] Phone Number [facility] [address] [place] [address] * ELECTROLYTES (08/21/2009 18:05 EST) Sodium 141 136 - 145 mEq/L [facility] Potassium 4.1 3.5 - 5.0 mEq/L [facility] Chloride 104 96 - 110 mEq/L [facility] CO2 29 24 - 32 mEq/L [facility] Blood specimen (specimen) 08/21/2009 18:05 EST 08/21/2009 18:11 EST Ayo Webb MD CHEMISTRY & BLOOD G ORDERABLES Performing Organization Address [facility] Phone Number [facility] [address] [place] [address] * BUN (08/21/2009 18:05 EST) BUN 12 10 - 26 mg/dl [facility] Blood specimen (specimen) 08/21/2009 18:05 EST 08/21/2009 18:11 EST Ayo Webb MD CHEMISTRY & BLOOD G ORDERABLES Performing Organization Address [facility] de Phone Number [facility] [address] [place] [address] * CREATININE (08/21/2009 18:05 EST) Creatinine 0.70 0.7 - 1.5 mg/dl [facility] GFR, Calculated >60 ml/min/1.7 3m2 [facility] Blood specimen (specimen) 08/21/2009 18:05 EST 08/21/2009 18:11 EST Ayo Webb MD CHEMISTRY & BLOOD G ORDERABLES Performing Organization Address City/[facility]/ZIP Co de Phone Number [facility] [address] [place] [address] * POCT URINE TEST (08/21/2009 17:27 EST) Kit Lot Number POINT OF CARE Expiration Date POINT OF CARE Test, Urine, POC Negative Negative POINT OF CARE Control Line Present POINT OF CARE Background Clear? POINT OF CARE Urine specimen (specimen) 08/21/2009 17:27 EST Ayo Webb MD POINT OF CARE TEST ORDERABLES Performing Organization Address [facility] Co de Phone Number POINT OF CARE * (ABNORMAL) POCT URINE DIPSTICK (08/21/2009 17:26 EST) Strip Lot Number POINT OF CARE Expiration Date POINT OF CARE Color, UA POINT OF CARE Clarity, UA POINT OF CARE Glucose, UA Negative Negative, Trace mg/dL POINT OF CARE Bilirubin, UA Negative Negative POINT OF CARE Ketones, UA Negative Negative mg/dL POINT OF CARE Spec Grav, UA 1.025 1.010, 1.015, 1.020, 1.025 POINT OF CARE Blood, UA Negative Negative POINT OF CARE pH, UA 7.0 4.6 - 8.0 POINT OF CARE Protein, UA Trace(A) Negative mg/dL POINT OF CARE Urobilinogen, UA 0.2 2.0 E.U./dL POINT OF CARE Nitrite, UA Negative Negative POINT OF CARE Leuk Esterase Negative Negative POINT OF CARE Comment POINT OF CARE Urine specimen (specimen) 08/21/2009 17:26 EST Ayo Webb MD POINT OF CARE TEST ORDERABLES Performing Organization Address City/[facility] Co de Phone Number POINT OF CARE documented in this encounter Visit Diagnoses Diagnosis Abdominal pain Abdominal pain, unspecified site Migraine aura without headache (migraine equivalents) Migraine with aura, without mention of intractable migraine without mention of status migrainosus documented in this encounter Administered Medications Inactive Administered Medications - up to 3 most recent administrations Medication Order MAR Action Action Date Dose Rate Site Hydrocodone w APAP 5-500 mg Tab??STARTER PACK 1 Package, oral, NOW X1, 1 dose, On Fri08/21/09 at 2145, STAT Given 08/21/2009 21:38 EST 1 Package morphine injection 3 mg 3 mg, intravenous, NOW X1, 1 dose, On Fri08/21/09 at 1830, STAT Given 08/21/2009 18:17 EST 3 mg morphine injection 5 mg 5 mg, intravenous, NOW X1, 1 dose, On Fri08/21/09 at 2015, STAT Given 08/21/2009 20:07 EST 5 mg ondansetron (PF) (ZOFRAN) 4 mg/2 mL injection 4 mg 4 mg, intravenous, NOW X1, 1 dose, On Fri08/21/09 at 1815, STAT Given 08/21/2009 18:17 EST 4 mg sodium chloride 0.9 % 1,000 mL BOLUS 1,000 mL, intravenous, Once (Without Time Specified), 1 dose, Starting on Fri08/21/09 at 1815, Until Fri08/21/09 at 1809, STAT Given 08/21/2009 18:09 EST 1,000 mL documented in this encounter Active and Recently Administered Medications Times are shown in EST. Scheduled Medication Order 08/19/2009 08/20/2009 08/21/2009 Hydrocodone w APAP 5-500 mg Tab??STARTER PACK (COMPLETED) 1 Package, oral, NOW X1, 1 dose, On Fri08/21/09 at 2145, STAT 2138 (Given - Provid er: Jing Cash RN) morphine injection 3 mg (COMPLETED) 3 mg, intravenous, NOW X1, 1 dose, On Fri08/21/09 at 1830, STAT 1817 (Given - Provid er: Jing Cash RN) morphine injection 5 mg (COMPLETED) 5 mg, intravenous, NOW X1, 1 dose, On Fri08/21/09 at 2015, STAT 2007 (Given - Provid er: Jing Cash RN) ondansetron (PF) (ZOFRAN) 4 mg/2 mL injection 4 mg (COMPLETED) 4 mg, intravenous, NOW X1, 1 dose, On Fri08/21/09 at 1815, STAT 1817 (Given - Provid er: Jing Cash RN) sodium chloride 0.9 % 1,000 mL BOLUS (COMPLETED) 1,000 mL, intravenous, Once (Without Time Specified), 1 dose, Starting on Fri08/21/09 at 1815, Until Fri08/21/09 at 1809, STAT 1809 (Given - Provid er: Jing Cash RN) documented in this encounter Orders Diet Count Last Ordered Date First Orde red Date DIET NPO TIME SPECIFIED 08/21/2009 Nursing Count Last Ordered Date First Orde red Date INSERT PERIPHERAL IV 1 08/21/2009 documented in this encounter Care Teams Cuff Setter Relationship Specialty Start Date End Date Cayla Yeager FNP [address] [place] [address] PCP - General 05/30/09 documented as of this encounter
--- OUTSIDE RECORDS SUMMARY | 2024-06-12 13:46 | XMS_ITS | Encounter Summary ---
Author Organization [facility] Address [address] [place] [address] Care Team Providers Care Pipe Bender Name Role Phone Unavailable Primary Care Provider Unavailabl e Encounter Details Date Type Department Care Team (Late st Contact Info) Description 05/05/2000 11:37 EDT - 05/05/2000 11:59 EDT Hospital Encounter [facility] [address] [place] [address] Garry Cortés MD [address] [facility], [address] [place] [id number] Discharge Disposition: Auto Discharge Social History Tobacco Use Types Packs/Day Years Used Date Smoking Tobacco: Never Assessed Sex and Gender Information Value Date Recorded Sex Assigned at Not on file Gender Identity Not on file Sexual Orientation Not on file documented as of this encounter Discharge Disposition Disposition Code Departure Means Destination Auto Discharge documented in this encounter Plan of Treatment Not on file documented as of this encounter Procedures Procedure Name Priority Date/Time Associated Diagnosis Comments SURGICAL PATHOLOGY Routine 05/05/2000 0:00 EDT documented in this encounter Results * SURGICAL PATHOLOGY (05/05/2000 0:00 EDT) Pathology Report: SURGICAL PATHOLOGY REPORT Reports generated via electronic interface contain original data; however they are lacking the format of the original report. Caution should be taken when reading/interpreti ng unformatted reports. Name: ? MEAGAN BOLANOS ? Accession #: ? [id number] ? : ? 1975 (Age: 24) ??F ? Collect Date: ? 05/05/2000 ? Location: ? [facility] ? Receive Date: ? 05/05/2000 ? Provider: GARRY CORTÉS MD Copy to: FRANTZ FABIAN MD ? Final Pathologic Diagnosis: A. ?Colon, right, biopsies: 1. ?Focal active inflammatory disease. B. ?Colon, left, biopsies: 1. ?No specific pathologic features. C. ?Duodenum, biopsies: 1. ?Mild intraepithelial lymphocytosis. 2. ?Normal villi. D. ?Terminal ileum, biopsies: 1. ?No specific pathologic features. E. ?Rectum, biopsies: 1. ?Focal active inflammatory disease. F. ?Colon, sigmoid, polyp, biopsy: ? 1. ??Fragment of hyperplastic polyp. Document reviewed and electronically signed by: Marlee Dial MD Report ??Date: 05/07/2000 18:33 By the signature above, the attending physician certifies that he/she has personally conducted a gross and/or microscopic examination of the described specimens and rendered or confirmed the above diagnosis. Specimen(s) Received: A. ?R colon B. ?L colon C. ?Rectum D. ?Sigmoid polyp E. ?Duodenum F. ?TI Clinical History: ? R/O microscopic colitis, TA, Sprue; diarrhea, hematochezia, nl colonoscopy except for polyp ? Gross Description: ? Received in [place]' s fixative labelled Sincere and R colon are three irregular, small fragments of tissue which measure variably from 0.3 x 0.2 x 0.1 cm to 0.6 x 0.2 x 0.1 cm. ??The specimen is submitted entirely as (A). ?? Received in [place]e' s fixative labelled Sincere and L colon are two irregular, small fragments of tissue which measures 0.6 x 0.2 x 0.1 cm and 0.4 x 0.3 x 0.2 cm. ??The specimen is submitted entirely as (B). Received in [place]' s fixative labelled Sincere and duod are three irregular, small fragments of tissue which measures variably from 0.3 x 0.2 x 0.1 cm to 0.9 x 0.2 x 0.1 cm. ??The specimen is submitted entirely as (C). Received in [place]' s fixative labelled Sincere and TI are two irregular small fragments of tissue which measures 0.6 x 0.2 x 0.1 cm and 0.8 x 0.2 x 0.1 cm. ??The specimen is submitted entirely as (D). Received in [place]' s fixative labelled Sincere and rectum are three irregular, small fragments of tissue which measures variably from 0.2 x 0.1 x 0.1 cm to 0.4 x 0.3 x 0.1 cm. ??The specimen is submitted intact as (E). Received in [place]' s fixative labelled Sincere and sigmoid polyp is one irregular, small fragment of tissue which measures 0.3 x 0.2 x 0.1 cm. ??The specimen is submitted intact as (F). ??(Dr. Reed)/[facility] End of Report [facility] 05/05/2000 05/05/2000 15: 24 EDT Garry Cortés MD PATHOLOGY ORDERAB LES Performing Organization Address City/State/[facility] Co de Phone Number LAWANDA COLON [address] [address] documented in this encounter Visit Diagnoses Not on filedocumented in this encounter
--- OUTSIDE RECORDS SUMMARY | 2024-06-12 13:46 | XMS_ITS | Encounter Summary ---
Author Organization [facility] Address [address] [place] [address] Care Team Providers Care Bar Waiter/Waitress Name Role Phone Unavailable Primary Care Provider Unavailabl e Encounter Details Date Type Department Care Team (Latest Contact Info) Description 10/06/2007 13:02 EST Hospital Encounter [facility] [address] [place] [address] Franky Feliz MD [address] [facility] [address] [place] [phone] Discharge Disposition: Auto Discharge Social History Tobacco [...] Name Priority Date/Time Associated Diagnosis Comments MR ANGIO HEAD,BRAIN W/WO CONTRAST 10/06/2007 23:23 EST documented in this encounter Results * MR ANGIO HEAD,BRAIN W/WO CONTRAST (10/06/2007 23:23 EST) Anatomical Region Laterality Modality Other 10/06/2007 23:2 3 EST Narrative 03/06/2009 4:46 EDT posterior headache, vertigo, vision loss with weak flexion and extension MRI of the brain with and without contrast and MRA of the [place] Indication for Study: Posterior headache, vertigo, visual loss with weak flexion-extension. Brain Technique: Sagittal T1, axial T1, T2, FLAIR, gradient echo, and diffusion-weighted imaging of the brain is obtained. After contrast administration ??axial T1 images are obtained with fat-suppression. MRA [place] Technique: ??3-D time of flight MRA is performed of the [place]. Findings: Examination of the diffusion-weighted sequence demonstrates no acute infarct. On the gradient-echo sequence, no significant susceptibility effect is identified. No parenchymal mass, extra-axial fluid collection, midline shift, or focal mass effect is seen. There is minor ethmoid air cell mucosal thickening noted. With contrast administration, no abnormal enhancement is seen. There is slight nasoseptal deviation to the right noted incidentally. [place] MRA demonstrates no significant stenosis in visualized portions of distal vertebral arteries, basilar artery or proximal posterior cerebral artery. Both posterior inferior cerebellar artery origins are normal. Examination of the anterior circulation demonstrates no stenosis, vascular malformation or aneurysm at the level of the anterior or middle cerebral arteries bilaterally or cavernous segment of the internal carotid artery. Impression: 1. Unremarkable MRA of the [place]. 2. No MR evidence of intracranial mass lesion or acute infarct. Procedure Note Mau Martinez MD - 03/06/2009 posterior headache, vertigo, vision loss with weak flexion and extension MRI of the brain with and without contrast and MRA of the [place] Indication for Study: Posterior headache, vertigo, visual loss with weak flexion-extension. Brain Technique: Sagittal T1, axial T1, T2, FLAIR, gradient echo, and diffusion-weighted imaging of the brain is obtained. After contrast administration axial T1 images are obtained with fat-suppression. MRA [place] Technique: 3-D time of flight MRA is performed of the [place]. Findings: Examination of the diffusion-weighted sequence demonstrates no acute infarct. On the gradient-echo sequence, no significant susceptibility effect is identified. No parenchymal mass, extra-axial fluid collection, midline shift, or focal mass effect is seen. There is minor ethmoid air cell mucosal thickening noted. With contrast administration, no abnormal enhancement is seen. There is slight nasoseptal deviation to the right noted incidentally. [place] MRA demonstrates no significant stenosis in visualized portions of distal vertebral arteries, basilar artery or proximal posterior cerebral artery. Both posterior inferior cerebellar artery origins are normal. Examination of the anterior circulation demonstrates no stenosis, vascular malformation or aneurysm at the level of the anterior or middle cerebral arteries bilaterally or cavernous segment of the internal carotid artery. Impression: 1. Unremarkable MRA of the [place]. 2. No MR evidence of intracranial mass lesion or acute infarct. Franky Feliz MD [facility] MRI ORDERABLES documented in this encounter Visit Diagnoses Not on filedocumented in this encounter
--- OUTSIDE RECORDS SUMMARY | 2024-06-12 13:46 | XMS_ITS | Encounter Summary ---
Author Organization [facility] Address [address] [place] [address] Care Team Providers Care River Expedition Guide Name Role Phone Cayla Yeager KAVYA Primary Care Provider [phone] Encounter Details Date Type Department Care Team (Latest Contact Info) Description 08/16/2009 13:06 EST - 08/16/2009 23:59 [facility] Hospital Encounter [facility] [address] [place] [address] Ihsan Olmos MD [address] [place] [address] Discharge Disposition: Auto Discharge Social History Tobacco Use Types Packs/Day Years Used Date Smoking Tobacco: Never Assessed Comments:no Alcohol Use Standard Drinks/Week Comments No [...] times daily. 20 Cap 0 08/05/2009 09/25/2009 documented as of this encounter Discharge Disposition Disposition Code Departure Means Destination Auto Discharge Home documented in this encounter Plan of Treatment Not on file documented as of this encounter Visit Diagnoses Not on filedocumented in this encounter Care Teams River Expedition Guide Relationship Specialty Start Date End Date Cayla Yeager FNP [address] [place] [address] PCP - General 05/30/09 documented as of this encounter
--- OUTSIDE RECORDS SUMMARY | 2024-06-12 13:46 | XMS_ITS | Encounter Summary ---
Author Organization [facility] Address [address] [place] [address] Care Team Providers Care Swatcher Name Role Phone Unavailable Primary Care Provider Unavailabl e Encounter Details Date Type Department Care Team (Latest Contact Info) Description 11/26/2007 16:31 EDT Hospital Encounter [address] [address] Kannan Banks MD [address] [place] [phone] Discharge Disposition: Auto Discharge Social History Tobacco [...] Procedure Name Priority Date/Time Associated Diagnosis Comments ANKLE 3 OR MORE VIEWS 11/26/2007 17:16 EDT WRIST 3 OR MORE VIEWS 11/26/2007 17:15 EDT documented in this encounter Results * ANKLE 3 OR MORE VIEWS (11/26/2007 17:16 EDT) Anatomical Region Laterality Modality Other 11/26/2007 17:1 6 EDT Narrative 02/26/2009 11:33 EDT fall on ice this am inversion injury pain over right fibula/lat malleolus left wrist pain over distal radius snuffbox aarti [place] [id number] ANKLE 3 OR MORE VIEWS, right wrist 4 views ??Nov 26, 2007 5:16:00 PM Clinical history: fall on ice this am inversion injury pain over right fibula/lat malleolus left wrist pain over distal radius snuffbox aarti [place] [id number] Comparison: None Findings: Three views of the right ankle show normal osseous structures and alignment without signs of fracture. Four views of the right wrist show normal osseous structures and alignment without signs of fracture. Procedure Note Ayo Anthony MD - 02/26/2009 fall on ice this am inversion injury pain over right fibula/lat malleolus left wrist pain over distal radius snuffbox aarti [place] [id number] ANKLE 3 OR MORE VIEWS, right wrist 4 views Nov 26, 2007 5:16:00 PM Clinical history: fall on ice this am inversion injury pain over right fibula/lat malleolus left wrist pain over distal radius snuffbox aarti [place] [id number] Comparison: None Findings: Three views of the right ankle show normal osseous structures and alignment without signs of fracture. Four views of the right wrist show normal osseous structures and alignment without signs of fracture. Kannan Banks MD IMG DIAGNOSTIC IMAGING ORDERABLES * WRIST 3 OR MORE VIEWS (11/26/2007 17:15 EDT) Anatomical Region Laterality Modality Other 11/26/2007 17:1 5 EDT Narrative 02/26/2009 11:33 EDT fall on ice this am inversion injury pain over right fibula/lat malleolus left wrist pain over distal radius snuffbox a[place] [id number] ANKLE 3 OR MORE VIEWS, right wrist 4 views ??Nov 26, 2007 5:16:00 PM Clinical history: fall on ice this am inversion injury pain over right fibula/lat malleolus left wrist pain over distal radius snuffbox aarti [place] [id number] Comparison: None Findings: Three views of the right ankle show normal osseous structures and alignment without signs of fracture. Four views of the right wrist show normal osseous structures and alignment without signs of fracture. Procedure Note Ayo Anthony MD - 02/26/2009 fall on ice this am inversion injury pain over right fibula/lat malleolus left wrist pain over distal radius snuffbox [facility] [phone] ANKLE 3 OR MORE VIEWS, right wrist 4 views Nov 26, 2007 5:16:00 PM Clinical history: fall on ice this am inversion injury pain over right fibula/lat malleolus left wrist pain over distal radius snuffbox aarti [facility] [phone] Comparison: None Findings: Three views of the right ankle show normal osseous structures and alignment without signs of fracture. Four views of the right wrist show normal osseous structures and alignment without signs of fracture. Kannan Banks MD IMG DIAGNOSTIC IMAGING ORDERABLES documented in this encounter Visit Diagnoses Not on filedocumented in this encounter
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
--- OUTSIDE RECORDS SUMMARY | 2024-06-12 13:46 | XMS_ITS | Encounter Summary ---
Author Organization [facility] Address [address] [place] [address] Care Team Providers Care Ux Information Architect Name Role Phone Cayla Yeager KAVYA Primary Care Provider [phone] Encounter Details Date Type Department Care Team (Late st Contact Info) Description 11/26/2007 Office Visit [facility] - Maple conversion [address] [place] [address] Kannan Banks MD [address] [place] [id number] Social History Tobacco Use Types Packs/Day Years Used Date Smoking Tobacco: Never Assessed Sex and Gender Information Value Date Recorded Sex Assigned at Not on file Gender Identity Not on file Sexual Orientation Not on file documented as of this encounter Progress Notes * Kannan Banks MD - 11/03/2009 1210 EST [facility] - Physician Summary Registration Date/Time: 11/26/2007 16:37 Arrived- By private vehicle. Historian- patient. HISTORY OF PRESENT ILLNESS Chief Complaint- Injury to the right foot and Complaint (L Wrist). 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 Patient is experiencing moderate pain. No other injury. REVIEW OF SYSTEMS The patientsustained a laceration (small laceration over the DIP of left 3rd digit). She complains of pain on weight bearing. She has had swelling. No tingling, weakness, numbness or suspected foreign body. SOCIAL HISTORY Is not a local resident. PHYSICAL EXAM Appearance: Alert. Oriented X3. No acute distress. Head: Head atraumatic. Neck: Neck supple. Respiratory: No respiratory distress. Extremities: Right ankle (pain over the distal 4 cm of malleolus, mortise stable, moderate effusion). Tenderness present in the left wrist(paon over dorsal/distal left radius to snuff box, hurts withaxial percussion and range of motion.). (small closed lac/scratch [3mm] over DIP joint left 3rd digit.). Neuro, Vascular and Tendons: Vascular status intact. Sensation intact. Motor intact. Tendon function intact. Neuro: Oriented X 3. LABS, X-RAYS, AND EKG X-Rays: Right wrist negative. Right ankle negative. PROGRESS AND PROCEDURES Disposition: Discharged home in good condition. CLINICAL IMPRESSION Sprained right ankle; left wrist. INSTRUCTIONS Return to work (no lifting over 25 pounds for four days.). (Ice, elastic bandage, ibuprofen for four days. No heavy [over 25 lbs] lifting or running in next 4 days, then back to all activities.). Understanding of the discharge instructions verbalized by patient. (Electronically signed by Kannan Banks MD 12/03/2007 16:06) Care Center - Nursing Summary Registration Date/Time: 11/26/2007 16:37 TRIAGE Initial Assessment BP: 128 / 70 sitting. HR: 80. RR: 18. Temp: 98.7 oral. --1651 Shayy Tang, Triage time 16:53. --1654 Jayleen Curry, L.P.N.. Medications Albuterol Inhaler. Ibuprofen. --1654 Jayleen Curry, L.P.N.. Allergies WELLBUTRIN. --1654 Jayleen Curry, L.P.N.. History Chief Complaint: INJURY TO RIGHT ANKLE. Pain level now: 5/10. PAST HX: Negative. History of previous surgery. . Left lower extremity fracture repair. Had hysterectomy. Left knee surgery. Laparoscopy. SOCIAL HX: Previous smoker (about 1 years ago). No alcohol use. No report of abuse. Historian: patient. --1654 Jayleen Curry L.P.N.. PHYSICAL ASSESSMENT Ambulatory to room. Alert. Appears in pain. Oriented X 3. --1655 Jayleen Curry L.P.N.. NURSING PROGRESS NOTES Patient identifiers checked. Call light placed in reach. Bed placed in lowest position. Brakes of bed on. Patient ready for evaluation. --1655 Jayleen Curry L.P.N. Medardo bandage applied to right wrist and right ankle by nurse. --1756 Samreen Mccartney R.N.. DISPOSITION / DISCHARGE Condition at departure: stable. Patient reports pain level on departure as 5/10. No learning barriers present. Discharge instructions reviewed with the patient. Reviewed warnings. Patient verbalized understanding. The patient was discharged home. The patient left the Emergency Department ambulatoryand via private vehicle. Departure time: 17:57. --1756 Samreen Mccartney R.N.. Locked/Released at 11/26/2007 17:58 by Samreen Mccartney R.N. documented in this encounter Plan of Treatment Not on file documented as of this encounter Visit Diagnoses Not on filedocumented in this encounter Care Teams Ux Information Architect Relationship Specialty Start Date End Date Cayla Yeager FNP [address] [place] [id number] PCP - General 05/30/09 documented as of this encounter
--- OUTSIDE RECORDS SUMMARY | 2024-06-12 13:46 | XMS_ITS | Encounter Summary ---
Author Organization [facility] Address [address] [place] [address] Care Team Providers Care Batch Unloader Name Role Phone Unavailable Primary Care Provider Unavailabl e Encounter Details Date Type Department Care Team (Latest Contact Info) Description 09/10/2007 14:05 EST Hospital Encounter [facility] - [address] [address] Franky Feliz MD [address] [facility] [address] [place] [address] Discharge Disposition: Auto Discharge Social History Tobacco [...]
--- OUTSIDE RECORDS SUMMARY | 2024-06-12 13:46 | XMS_ITS | Encounter Summary ---
Author Organization [facility] Address [address] [place] [address] Care Team Providers Care Biofuels Engineering Manager Name Role Phone Unavailable Primary Care Provider Unavailabl e Encounter Details Date Type Department Care Team (Late st Contact Info) Description 04/10/2000 7:39 EDT Hospital Encounter [facility] - Other [address] [place] [address] Garry Toussaint MD [address] [facility], [facility] [address] [place] [phone] Unknown, Provider, Social History Tobacco Use Types Packs/Day Years [...] Procedure Name Priority Date/Time Associated Diagnosis Comments HEMAGRAM & DIFF Routine 04/10/2000 10:49 EDT PTT Routine 04/10/2000 10:49 EDT PROTIME Routine 04/10/2000 10:49 EDT documented in this encounter Results * PTT (04/10/2000 10:49 EDT) PTT 24 20 - 31 secs [facility] Comment:Therapeutic Heparin range: 58-100 seconds 04/10/2000 10:4 9 EDT 04/10/2000 10:50 EDT Garry Toussaint MD HEMATOLOGY & PF4 ORDERABLES Performing Organization Address City/[facility] Co de Phone Number [facility] [address] [place] [address] * PROTIME (04/10/2000 10:49 EDT) Pro Time 12.4 11.7 - 13.4 secs [facility] I.N.R. 1.0 0.8 - 1.2 Ratio [facility] Comment: Moderate Intensity Coumadin INR = 2.0-3.0 Adjustments in anticoagulant therapy dose should be based upon the INR and NOT the Pro Time 04/10/2000 10:4 9 EDT 04/10/2000 10:50 EDT Garry Toussaint MD HEMATOLOGY & PF4 ORDERABLES Performing Organization Address City/[facility] Co de Phone Number [facility] [address] [place] [address] * HEMAGRAM & DIFF (04/10/2000 10:49 EDT) WBC 8.19 4.0 - 12.4 K/cmm [facility] RBC 4.89 3.86 - 5.04 M/cmm [facility] Hemoglobin 14.3 11.6 - 15.2 gm/dl [facility] HCT 40.3 34.9 - 44.4 % [facility] MCV 82 81 - 98 fl [facility] MCH 29.3 26.7 - 33.3 pg [facility] MCHC 35.5 32.1 - 35.9 gm/dl [facility] PLT 241 141 - 320 K/cmm [facility] RDW-CV 12.4 11.7 - 14.6 % [facility] % Neutrophils 56.8 45.5 - 79.7 % [facility] % Lymphocytes 34.4 15.0 - 46.8 % [facility] % Monocytes 6.3 1.8 - 12.0 % [facility] % Eosinophils 2.2 0.6 - 6.9 % [facility] % Basophils 0.3 0.2 - 1.4 % [facility] ABS Neutrophils 4.65 2.20 - 8.85 K/cmm [facility] ABS Lymphs 2.82 1.09 - 3.30 K/cmm [facility] ABS Monocytes 0.52 0.1 - 0.8 K/cmm [facility] ABS Eosinophils 0.18 0.03 - 0.61 K/cmm [facility] ABS Basophils 0.02 0.01 - 0.11 K/cmm [facility] Type of Diff: Automated [facility] 04/10/2000 10:4 9 EDT 04/10/2000 10:50 EDT Garry Toussaint MD HISTORICAL LAB FO R SQ LOAD [facility] [address] [place] [address] documented in this encounter Visit Diagnoses Not on filedocumented in this encounter
--- OUTSIDE RECORDS SUMMARY | 2024-06-12 13:46 | XMS_ITS | Encounter Summary ---
Author Organization [facility] Address [address] [place] [address] Care Team Providers Care Board Member Name Role Phone Cayla Yeager KAVYA Primary Care Provider [phone] [phone] Encounter Details Date Type Department Care Team (Late st Contact Info) Description 08/16/2009 Orders Only [facility] - [address] [id number] Misa Haywood MD Social History Tobacco Use Types Packs/Day Years [...] Name Priority Date/Time Associated Diagnosis Comments CT ABD W/WO AND PELVIS W CONTRAST 08/16/2009 14:39 EST TAX SERVICES PROFESSIONAL US PELVIS TRANSVAGINAL 08/16/2009 11:33 EST documented in this encounter Results * CT ABD W/WO PELVIS W CONTRAST (08/16/2009 14:39 EST) Anatomical Region Laterality Modality Other 08/16/2009 14:3 9 EST 08/16/2009 17:09 EST Narrative 08/16/2009 17:09 EST History/Comments: ??Epigastric pain radiating to the back. CT ABD W/WO PELVIS W ?? Noncontrast images of the upper abdomen were obtained. ??This was then followed by arterial phase images of the pancreas during the intravenous administration of contrast. ??Images of the upper abdomen were then obtained during the portal-venous phase. In addition, helical CT images of the pelvis was obtained during the intravenous administration of contrast. Findings: Noncontrast images of the upper abdomen demonstrates no evidence of renal or pancreatic calcifications. Following contrast demonstration, the pancreas enhances homogeneously without a focal lesion. The pancreatic duct is not dilated. There is no evidence of stranding of the fat around the pancreas. The spleen, liver, adrenals, gallbladder and kidneys are unremarkable. The uterus is absent. There are no enlarged nodes in the abdomen or pelvis. There is no evidence of free fluid in the abdomen or pelvis. Lung bases are clear. Impressions: 1. Unremarkable examination of the pancreas. 2. Status post hysterectomy. Procedure Note 08/16/2009 History/Comments: Epigastric pain radiating to the back. CT ABD W/WO PELVIS W Noncontrast images of the upper abdomen were obtained. This was then followed by arterial phase images of the pancreas during the intravenous administration of contrast. Images of the upper abdomen were then obtained during the portal-venous phase. In addition, helical CT images of the pelvis was obtained during the intravenous administration of contrast. Findings: Noncontrast images of the upper abdomen demonstrates no evidence of renal or pancreatic calcifications. Following contrast demonstration, the pancreas enhances homogeneously without a focal lesion. The pancreatic duct is not dilated. There is no evidence of stranding of the fat around the pancreas. The spleen, liver, adrenals, gallbladder and kidneys are unremarkable. The uterus is absent. There are no enlarged nodes in the abdomen or pelvis. There is no evidence of free fluid in the abdomen or pelvis. Lung bases are clear. Impressions: 1. Unremarkable examination of the pancreas. 2. Status post hysterectomy. Ihsan Olmos MD [facility] CT ORDERABLES * TAX SERVICES PROFESSIONAL US PELVIS TRANSVAGINAL (08/16/2009 11:33 EST) Anatomical Region Laterality Modality Other 08/16/2009 11:3 3 EST 08/23/2009 10:34 EST Narrative 08/23/2009 10:34 EST INDICATION: ??This 34-year-old had a hysterectomy at age 20 for pain relief due to endometriosis. ??She additionally had a unilateral salpingo-oophorectomy, but she is unaware of which side it was. ??She is currently experiencing fairly debilitating pelvic pain and this scan is performed to evaluate this. FINDINGS: ??The scan is performed transvaginally. ??The uterus is surgically absent. ??There are no abnormalities appreciated in either the right or left adnexa. ??What I believe to be the left ovary is seen with some difficulty. ??It is fairly close to the midline. ??Its overall measurements are 1.65 x 1.55 x 1.00 cm. ??Pressure on this area appears to simulate the significant pain that she is having. ?? There is no free fluid in the cul-de-sac and there are no pelvic masses appreciated on the scan. IMPRESSION: ?? 1. ? Surgically absent uterus and probable right ovary. 2. ? Normal appearing left ovary. PLAN: ??Follow up with Dr. Olmos. ?? D: ??08/16/2009 T: ??08/16/2009 /ayush Procedure Note 08/23/2009 INDICATION: This 34-year-old had a hysterectomy at age 20 for pain relief due to endometriosis. She additionally had a unilateral salpingo-oophorectomy, but she is unaware of which side it was. She is currently experiencing fairly debilitating pelvic pain and this scan is performed to evaluate this. FINDINGS: The scan is performed transvaginally. The uterus is surgically absent. There are no abnormalities appreciated in either the right or left adnexa. What I believe to be the left ovary is seen with some difficulty. It is fairly close to the midline. Its overall measurements are 1.65 x 1.55 x 1.00 cm. Pressure on this area appears to simulate the significant pain that she is having. There is no free fluid in the cul-de-sac and there are no pelvic masses appreciated on the scan. IMPRESSION: 1. Surgically absent uterus and probable right ovary. 2. Normal appearing left ovary. PLAN: Follow up with Dr. Olmos. /ayush Misa Haywood MD IMG US TAX SERVICES PROFESSIONAL ORDERABLE S documented in this encounter Visit Diagnoses Not on filedocumented in this encounter Care Teams Board Member Relationship Specialty Start Date End Date Cayla Yeager FNP [address] [place] [address] PCP - General 05/30/09 documented as of this encounter
--- OUTSIDE RECORDS SUMMARY | 2024-06-12 13:46 | XMS_ITS | Encounter Summary ---
Author Organization [facility] Address [address] [place] [address] Care Team Providers Care Strength And Conditioning Coach Name Role Phone Cayla Yeager KAVYA Primary Care Provider [phone] Reason for Visit * Reason Comments Abdominal Pain Pt c/o upper abd gerard n x several months, worse 2 days. Seen in ED yesterday, pt to call on friday for GI follow-up. 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 Encounter Details Date Type Department Care Team (Late st Contact Info) Description 08/06/2009 11:03 EST - 08/06/2009 14:55 EST Emergency [facility] Emergency Department - [facility] [address] [place] [address] Dinesh Jorge MD Emergency, MD Efren Abdominal Pain Discharge Disposition: Home or Self Care Social [...] Sign Reading Time Taken Comments Blood Pressure 112/68 08/06/2009 1442 EST Pulse 67 08/06/2009 1442 EST Temperature 36.3 ??C (97.3 ??F) 08/06/2009 1109 EST Respiratory Rate 16 08/06/2009 1109 EST Oxygen Saturation 99% 08/06/2009 1109 EST Inhaled Oxygen Concentration - - Weight - - Height - - Body Mass Index - - documented in this encounter Discharge Instructions * Discharge Instructions* Neetu Jorge MD (Richard) - 08/06/2009 14:19 EST 1. Call the GI doctors and the gynecology clinic. I have spoken to both of them and you should be on their urgent list. When you call the sql ssrs ssis developer clinic ([phone]) ask to be seen in the [facility] clinic. This is much faster. 2. In the meantime, please begin the protonix and take pain meds for the first couple of days. Recheck with us if you are not making much progress. documented in this encounter Medications at Time [...] Dispensed Refills Start Date End Da te oxycodone-acetaminophen (PERCOCET) 5-325 mg per tablet Take 1 Tab by mouth every 4 hours as needed for Pain. 15 Tab 0 08/06/2009 documented in this encounter Discharge Disposition Disposition Code Departure Means Destination Home or Self Care Walk-out Home documented in this encounter ED Notes * Neetu Jorge MD (Richard) - 08/08/2009 0015 EST DOS: 08/06/2009 Chief Complaint Patient presents with ??? Abdominal Pain Pt c/o upper abd pain x several months, worse 2 days. Seen in ED yesterday, pt to call on friday for GI follow-up. 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 Patient is a 34 y.o. female presenting with abdominal pain. The history is provided by the patient. Abdominal Pain This is a recurrent problem. The current episode started more than 2 days ago. The problem occurs constantly. The problem has been gradually worsening. The pain is located in the generalized abdominal region. The pain is moderate. Associated symptoms include nausea. Pertinent negatives include no anorexia, no fever, no belching, no diarrhea, no flatus, no hematochezia, no melena, no vomiting, no constipation, no dysuria, no frequency, no hematuria, no headaches, no arthralgias and no myalgias. Nothing worsens the symptoms. Nothing relieves the symptoms. 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, here years ago. Review of Systems Constitutional: Negative. Negative for fever. HENT: Negative. Eyes: Negative. Respiratory: Negative. Cardiovascular: Negative. Gastrointestinal: Positive for nausea and abdominal pain. Negative for vomiting, diarrhea, constipation, melena and hematochezia. Genitourinary: Negative for dysuria, frequency and hematuria. Musculoskeletal: Negative for myalgias and arthralgias. Neurological: Negative for headaches. Hematological: Negative. Psychiatric/Behavioral: Negative. Past Medical History Diagnosis Date ??? Endometriosis c cyst removal Past Surgical History Procedure Date ??? section ??? Abdomen surgery 3 laproscopic surgeries and 1 surgery to remove a endometrial mass Allergies Allergen Reactions ??? Wellbutrin (Bupropion) History Substance Use Topics ??? Tobacco Use: no ??? Alcohol Use: No no History reviewed. No pertinent family history. BP 112/68 Pulse 67 Temp(Src) 36.3 ??C (97.3 ??F) (Tympanic) Resp 16 SpO2 99% Physical Exam Nursing note and vitals reviewed. Constitutional: She is oriented. She appears well-developed and well-nourished. HENT: Head: Normocephalic and atraumatic. Eyes: Extraocular motions are normal. Pupils are equal, round, and reactive to light. Neck: Normal range of motion. Neck supple. Cardiovascular: Normal rate and regular rhythm. Pulmonary/Chest: Effort normal and breath sounds normal. Abdominal: Soft. Bowel sounds are normal. She exhibits no distension and no mass. Tenderness (diffusely) is present. She has no rebound and no guarding. Genitourinary: Had workup yesterday. Musculoskeletal: Normal range of motion. Neurological: She is alert and oriented. Skin: Skin is warm. Psychiatric: She has a normal mood and affect. Radiology orders: None Procedures ED Course: Labs improved from yesterday. Old records reviewed. Discussed with GI and TRAVEL [employer]: both will see her. Discharge Prescriptions New Prescriptions OXYCODONE-ACETAMINOPHEN (PERCOCET) 5-325 MG PER TABLET Take 1 Tab by mouth every 4 hours as needed for Pain. MDM Encounter Diagnoses Code Name Primary? Qualifier ??? 789.00AP Abdominal Pain PCP: KAVYA MAHMOOD 08/08/2009 12:15 AM * Tegan Rachel RN - 08/06/2009 1215 EST Blood drawn via right forearm per protocol, lav, green, tiger, blue top tube(s) sent to lab per order. documented in this encounter Miscellaneous Notes * Scanned Note-Null - Inpatient, Physician - 08/08/2009 0838 EST documented in this encounter Plan of Treatment Not on file documented as of this encounter Procedures Procedure Name Priority Date/Time Associated Diagnosis Comments HOLD GREEN TOP STAT 08/06/2009 12:06 EST HOLD BLUE TOP STAT 08/06/2009 12:06 EST COMPLETE BLOOD COUNT AND DIFFERENTIAL STAT 08/06/2009 11:58 EST C REACTIVE PROTEIN STAT 08/06/2009 11 :58 EST LIPASE STAT 08/06/2009 11:58 EST documented in this encounter Results * HOLD GREEN TOP (08/06/2009 12:06 EST) Hold Green Top Hold for further testing. Specimen will be held for 5 days. [facility] Blood specimen (specimen) 08/06/2009 12:06 EST 08/06/2009 12:15 EST Dinesh Jorge MD LAB INFO SERVICE AND SUPPORT & PHONE RESULT Performing Organization Address City/[facility]/ZIP Co de Phone Number [facility] [address] [place] [address] * HOLD BLUE TOP (08/06/2009 12:06 EST) Hold Blue Top Sample for coagulation will be discarded after 4 hours [facility] Blood specimen (specimen) 08/06/2009 12:06 EST 08/06/2009 12:15 EST Dinesh Jorge MD LAB INFO SERVICE AND SUPPORT & PHONE RESULT Performing Organization Address [facility] Co de Phone Number [facility] [address] [place] [address] * HEMAGRAM AND DIFFERENTIAL (08/06/2009 11:58 EST) WBC 9.06 4.0 - 12.4 K/cmm [facility] RBC 4.81 3.86 - 5.04 M/cmm [facility] Hemoglobin 13.5 11.6 - 15.2 gm/dl [facility] HCT 39.8 34.9 - 44.4 % [facility] MCV 83 81 - 98 fl [facility] MCH 28.1 26.7 - 33.3 pg [facility] MCHC 34.0 32.1 - 35.9 gm/dl [facility] PLT 251 141 - 320 K/cmm [facility] RDW-CV 12.8 11.7 - 14.6 % [facility] Neutrophils 62.9 45.5 - 79.7 % [facility] Lymphocytes 28.9 15.0 - 46.8 % [facility] Monocytes 6.6 1.8 - 12.0 % [facility] Eosinophils 1.2 0.6 - 6.9 % [facility] Basophils 0.4 0.2 - 1.4 % [facility] ABS Neutrophils 5.70 2.20 - 8.85 K/cmm [facility] ABS Lymphs 2.62 1.09 - 3.30 K/cmm [facility] ABS Monocytes 0.60 0.1 - 0.8 K/cmm [facility] ABS Eosinophils 0.11 0.03 - 0.61 K/cmm [facility] ABS Basophils 0.04 0.01 - 0.11 K/cmm [facility] Type of Diff: Automated [facility] Blood specimen (specimen) 08/06/2009 11:58 EST 08/06/2009 12:15 EST Dinesh Jorge MD PACKAGES & DNA CO OBE ORDERABLES Performing Organization Address [facility] de Phone Number [facility] [address] [place] [address] * LIPASE (08/06/2009 11:58 EST) Lipase 176 0 - 250 U/L [facility] Blood specimen (specimen) 08/06/2009 11:58 EST 08/06/2009 12:15 EST Dinesh Jorge MD CHEMISTRY & BLOOD GAS ORDERABLES Performing Organization Address [facility] de Phone Number [facility] [address] [place] [address] * C-REACTIVE PROTEIN (08/06/2009 11:58 EST) C-Reactive Protein <0.7 <1.0 mg/dl [facility] Blood specimen (specimen) 08/06/2009 11:58 EST 08/06/2009 12:15 EST Dinesh Jorge MD CHEMISTRY & BLOOD GAS ORDERABLES Performing Organization Address [facility] de Phone Number [facility] [address] [place] [address] documented in this encounter Visit Diagnoses Diagnosis Abdominal pain Abdominal pain, unspecified site documented in this encounter Administered Medications Inactive Administered Medications - up to 3 most recent administrations Medication Order MAR Action Action Date Dose Rate Site lorazepam (ATIVAN) injection 0.5 mg 0.5 mg, intravenous, NOW X1, 1 dose, On 08/06/09 at 1215, STAT Given 08/06/2009 12:32 EST 0.5 mg morphine injection 5 mg 5 mg, intravenous, NOW X1, 1 dose, On 08/06/09 at 1330, STAT Given 08/06/2009 13:15 EST 5 mg morphine injection 5 mg 5 mg, intravenous, NOW X1, 1 dose, On 08/06/09 at 1430, STAT Given 08/06/2009 14:22 EST 5 mg pantoprazole (PROTONIX) injection 40 mg 40 mg, intravenous, NOW X1, 1 dose, On 08/06/09 at 1245, STAT Given 08/06/2009 12:32 EST 40 mg sodium chloride 0.9 % 500 mL BOLUS 500 mL, intravenous, Once (Without Time Specified), 1 dose, Starting on 08/06/09 at 1215, Until 08/06/09 at 1210, STAT Given 08/06/2009 12:10 EST 500 mL documented in this encounter Historical Medications * This list may reflect changes made after this encounter. Medication Sig Dispensed Refills Start Date End Date acetaminophen (TYLENOL) 500 mg tablet Take 2 Tabs by mouth as needed for Pain. Last dose 3 hrs ago added in this encounter Active and Recently Administered Medications Times are shown in EST. Scheduled Medication Order 08/04/2009 08/05/2009 08/06/2009 lorazepam (ATIVAN) injection 0.5 mg (COMPLETED) 0.5 mg, intravenous, NOW X1, 1 dose, On 08/06/09 at 1215, STAT 1232 (Given - Provid er: Molly Staley Parent - Comment: via pump) morphine injection 5 mg (COMPLETED) 5 mg, intravenous, NOW X1, 1 dose, On 08/06/09 at 1330, STAT 1315 (Given - Provid er: Molly Staley Parent - Comment: via pump) morphine injection 5 mg (COMPLETED) 5 mg, intravenous, NOW X1, 1 dose, On 08/06/09 at 1430, STAT 1422 (Given - Provid er: Molly Staley Parent - Comment: via pump) pantoprazole (PROTONIX) injection 40 mg (COMPLETED) 40 mg, intravenous, NOW X1, 1 dose, On 08/06/09 at 1245, STAT 1232 (Given - Provid er: Molly Staley Parent - Comment: via pump) sodium chloride 0.9 % 500 mL BOLUS (COMPLETED) 500 mL, intravenous, Once (Without Time Specified), 1 dose, Starting on 08/06/09 at 1215, Until 08/06/09 at 1210, STAT 1210 (Given - Provid er: Molly Sheets)1444 (Completed - Provider: Molly Sheets) documented in this encounter Orders Diet Count Last Ordered Date First Orde red Date DIET NPO TIME SPECIFIED 1 08/06/2009 documented in this encounter Care Teams Strength And Conditioning Coach Relationship Specialty Start Date End Date Cayla Yeager FNP [address] [place] [address] PCP - General 05/30/09 documented as of this encounter
--- OUTSIDE RECORDS SUMMARY | 2024-06-12 13:46 | XMS_ITS | Encounter Summary ---
Author Organization [facility] Address [address] [place] [address] Care Team Providers Care Forestry Contractor Name Role Phone Cayla Yeager KAVYA Primary Care Provider [phone] Encounter Details Date Type Department Care Team (Latest Contact Info) Description 05/30/2009 14:23 EDT - 05/30/2009 23:59 EDT Hospital Encounter [address] [address] Client, MD Efren Discharge Disposition: Home or Self Care Social History Tobacco Use Types Packs/Day Years Used Date Smoking Tobacco: Never Assessed Sex and Gender Information Value Date Recorded Sex Assigned at Not on file Gender Identity Not on file Sexual Orientation Not on file documented as of this encounter Discharge Disposition Disposition Code Departure Means Destination Home or Self Senior Living documented in this encounter Plan of Treatment Not on file documented as of this encounter Procedures Procedure Name Priority Date/Time Associated Diagnosis Comments MEASLES IGG AB Routine 05/30/2009 14:32 EDT RUBELLA IGG ANTIBODY Routine 05/30/2009 14:32 EDT VARICELLA IGG ANTIBODY Routine 05/30/2009 14:32 EDT MUMPS ANTIBODY IGG Routine 05/30/2009 14 :32 EDT documented in this encounter Results * VARICELLA IGG ANTIBODY (05/30/2009 14:32 EDT) Varicella IgG Ab Positive [facility] Blood specimen (specimen) 05/30/2009 14:32 EDT 05/30/2009 14:33 EDT Nurse Employee Health IMMUNOLOGY AND SER OLOGY ORDERABLES Performing Organization Address [facility] Co de Phone Number [facility] [address] [place] [address] * RUBEOLA IGG ANTIBODY (05/30/2009 14:32 EDT) Rubeola IgG Ab Positive [facility] Blood specimen (specimen) 05/30/2009 14:32 EDT 05/30/2009 14:33 EDT Nurse Employee Health IMMUNOLOGY AND SER OLOGY ORDERABLES Performing Organization Address [facility] Phone Number [facility] [address] [place] [address] * MUMPS ANTIBODY IGG (05/30/2009 14:32 EDT) Mumps Antibody IgG Negative [facility] Blood specimen (specimen) 05/30/2009 14:32 EDT 05/30/2009 14:33 EDT Nurse Employee Health IMMUNOLOGY AND SER OLOGY ORDERABLES Performing Organization Address [facility] de Phone Number [facility] [address] [place] [address] * RUBELLA IGG ANTIBODY (05/30/2009 14:32 EDT) Rubella IgG Ab Antibody detected Assayed utilizing the [employer] Immulite 2500. Values may vary with other methods. [facility] Blood specimen (specimen) 05/30/2009 14:32 EDT 05/30/2009 14:33 EDT Nurse Employee Health CHEMISTRY & BLOOD GAS ORDERABLES Performing Organization Address [facility] Phone Number [facility] [address] [place] [address] documented in this encounter Visit Diagnoses Not on filedocumented in this encounter Care Teams Forestry Contractor Relationship Specialty Start Date End Date Cayla Yeager, KAVYA [address] [place] [address] PCP - General 05/30/09 documented as of this encounter
[2024-06-12 17:56] LABS: HCT 43.3 % (36.0-46.0); HGB 13.9 g/dL (11.2-15.7); MCHC 32.1 % (32.0-36.0); MCV 84 fL (80-95); MPV 10.9 fL (8.0-11.0); Platelet Count 260 10^3/uL (130-400); RBC 5.14 10^6/uL (3.93-5.22); RDW 12.2 % (11.7-14.6); RDW-SD 36.9 fL; WBC 6.92 10^3/uL (4.4-10.8)
[2024-06-12 18:12] LABS: Iron 48 ug/dL (50-170)
[2024-06-12 18:34] LABS: ALT 37 U/L (14-59); AST 30 U/L (15-37); Albumin 3.9 g/dL (3.4-5.0); Alkaline Phosphatase 132 U/L (46-116); BUN 7 mg/dL (7-18); Bilirubin, Total 0.55 mg/dL (0.2-1.0); CREATININE 0.8 mg/dL (0.55-1.02); Chloride 103 mmol/L (98-107); Estimated GFR 89.71 (mL/min/1.73m2); Ferritin 142 ng/mL (8-252); Glucose 84 mg/dL (74-106); Potassium 4.3 mmol/L (3.5-5.1); Sodium 140 mmol/L (136-145); Total Protein 7.2 g/dL (6.4-8.2); Vitamin B12 422 pg/mL (193-986); Vitamin D 25 Total 16.7 ng/mL (30-100)
== END 2024-06-12 13:39 | disposition home or self-care (01) ==
LOC: LBN 13:38
PROVIDERS: PCP Nurse Practitioner Family; Visit Provider Nurse Practitioner Family
DX: R79.89 Other specified abnormal findings of blood chemistry (principal); R71.8 Other abnormality of red blood cells; D50.9 Iron deficiency anemia, unspecified
CPT/HCPCS: 80053; 82306; 85027; 82607; 82728; 83540

== ENCOUNTER 2024-08-15 10:33 | Emergency (ER) | payer BC, SELFPAY ==
[2024-08-15 10:36] VITALS: BP 107/73; PULSE 88; RESP 16; TEMP 36.4; O2SAT 98
--- NOTE | 2024-08-15 11:09 | DI.CT_ITS ---
Exam(s) CT ABDOMEN PELVIS WO EXAM: CT ABDOMEN PELVIS WO CLINICAL HISTORY: right flank pain. TECHNIQUE: Imaging Protocol: Axial computed tomography images with coronal and sagittal reformatted images were created and reviewed. COMPARISON: CT CT ABDOMEN PELVIS WO/W from 01/02/2024 FINDINGS: ABDOMEN: Lung Bases: Normal where visualized. Liver: Normal density. No measurable mass. Gallbladder and biliary tract: Status post cholecystectomy. No significant biliary ductal dilatation . Pancreas: Normal density, no abnormal calcifications or inflammatory process. Spleen: Normal. Kidneys: Normal size, contour and axis.No radiodense stones or obstructive uropathy. No masses seen. Adrenal glands: No mass is seen. Lymph nodes: Within normal limits. Abdominal Aorta: Abdominal portion non-dilated. Atherosclerotic calcification is present. PELVIS: Bladder:Symmetric distention, no gross wall thickening. Bowel: No obstruction or bowel wall thickening. There are again seen the findings of prior gastric franco rgery and anastomotic clips in the small bowel. Normal appendix is present. Peritoneal cavity: No ascites, collection or mesenteric inflammatory response. No free air. Reproductive organs: Status post hysterectomy. Bones: Within normal limits. Soft Tissues: Within normal limits. IMPRESSION: No evidence of nephrolithiasis or hydronephrosis. RADIATION DOSE DELIVERED: 537.43mGy.cm Total DLP DATA REPOSITORY: All CT scans at this facility are submitted to the National Radiology Data Registry (NRDR) Dose Index Registry (DIR) with the [employer] (A[employer]). RADIATION OPTIMIZATION: All CT scans at this facility use at least one of these dose optimization te chniques: automated exposure control; mA and/or kV adjustment per patient size (includes targeted exa ms where dose is matched to clinical indication); or iterative reconstruction.
[2024-08-15] MEDS: Ondansetron 4 MG/2 ML VIAL IVP (11:22)
[2024-08-15] MEDS: Ketorolac 30 MG/ML VIAL IVP (11:23)
[2024-08-15 11:33] LABS: ALT 30 U/L (14-59); AST 25 U/L (15-37); Alkaline Phosphatase 134 U/L (46-116); BUN 6 mg/dL (7-18); Bilirubin, Total 0.56 mg/dL (0.2-1.0); Calcium 9.4 mg/dL (8.5-10.1); Chloride 102 mmol/L (98-107); Estimated GFR 68.63 (mL/min/1.73m2); Glucose 92 mg/dL (74-106); Potassium 3.6 mmol/L (3.5-5.1); Sodium 139 mmol/L (136-145); Total Protein 7.7 g/dL (6.4-8.2)
--- NOTE | 2024-08-15 11:39 | W.ED.GENAD ---
Discharge Plan Disposition Patient Disposition: Home Condition: Stable Discharge Details Clinical Impression: Dysuria, Fever, Acute flank pain Primary Care Provider: Mike Rivas ED Provider: Jaden Jennings Home Meds and New Rx's Prescriptions: New sulfamethoxazole-trimethoprim [Bactrim DS] 800-160 mg tablet 1 tab PO BID 5 Days Qty: 10 0RF ondansetron 4 mg tablet,disintegrating 4 mg PO Q6H PRN (Reason: nausea and vomiting) Qty: 20 0RF No Action albuterol sulfate [Proventil HFA] 90 mcg/actuation HFA aerosol inhaler 2 puff inhalation Q6H PRN (Reason: shortness of breath or wheezing) Qty: 8.5 0RF epinephrine 0.3 mg/0.3 mL auto-injector 0.3 mg IM ONCE Qty: 2 0RF Rx Instructions: as a single dose; may repeat once ibuprofen 800 mg tablet 800 mg PO Q8H PRN (Reason: pain) Qty: 20 0RF Wegovy 0.25 mg/0.5 mL pen injector 0.25 mg subcut QWEEK Qty: 2 0RF Rx Instructions: administer weeks 1 through 4 of therapy ferrous sulfate [Feosol] 325 mg (65 mg iron) tablet 325 mg PO QID pantoprazole 40 mg tablet,delayed release (DR/EC) 40 mg PO BID ergocalciferol (vitamin D2) 1,250 mcg (50,000 unit) capsule 1,250 mcg PO DAILY Discharge Instructions Additional Instructions: Your white blood cell count and renal function testing are normal. Urine urinalysis is not able to be run because of the Azo, but based on your symptoms, I am treating you for urinary tract infection Your CT scan does not reveal an abscess or renal stone Your first dose of medication was given in the emergency department. Please continue this medication as prescribed. You have also been prescribed some nausea medication to take as needed Continue Motrin or Tylenol as needed for fever or pain. Return to the emergency department with persistent fever, not tolerating the medication or worsening symptoms. HPI General Date/Time Provider Initiated Documentation: 08/15/24 10:45. Limitations to Documentation: no limitations. Information obtained by: patient. HPI Narrative: 49-year-old female with past medical history of urinary tract infection presents for evaluation of UTI symptoms. She reports that she has had symptoms for the last 2 days. Symptoms include dysuria, frequency urgency. She started noticing hematuria at the beginning. But started taking Azo so her urine color has changed to orange. She reports that her symptoms are associated with fever, measured at home of 102. Mild nausea. She is having right flank pain. She took Tylenol this morning because she had fever. She reports that she has a prior history of urinary tract infection that required shots. Related Data Home Medications ?Medication ?Instructions ?Recorded ?Confirmed ferrous sulfate 325 mg (65 mg 325 mg PO QID 03/11/23 08/15/24 iron) tablet (Feosol) pantoprazole 40 mg tablet,delayed 40 mg PO BID 10/20/23 08/15/24 release albuterol sulfate 90 mcg/actuation 2 puff inhalation Q6H PRN 02/16/24 08/15/24 aerosol inhaler (Proventil HFA) shortness of breath or wheezing #8.5 grams epinephrine 0.3 mg/0.3 mL 0.3 mg (0.3 mL) IM ONCE #2 ea 02/16/24 08/15/24 injection, auto-injector ibuprofen 800 mg tablet 800 mg PO Q8H PRN pain #20 tabs 06/24/24 08/15/24 semaglutide (weight loss) 0.25 0.25 mg (0.5 mL) subcut QWEEK #2 mL 06/24/24 08/15/24 mg/0.5 mL subcutaneous pen injector (Sammy) ergocalciferol (vitamin D2) 1,250 1,250 mcg PO DAILY 08/15/24 08/15/24 mcg (50,000 unit) capsule ondansetron 4 mg disintegrating 4 mg PO Q6H PRN nausea and 08/15/24 tablet vomiting #20 tabs sulfamethoxazole 800 1 tab PO BID 5 days #10 tabs 08/15/24 mg-trimethoprim 160 mg tablet (Bactrim DS) Previous Rx's ?Medication ?Instructions ?Recorded albuterol sulfate 90 mcg/actuation 2 puff inhalation Q6H PRN 02/16/24 aerosol inhaler (Proventil HFA) shortness of breath or wheezing #8.5 grams epinephrine 0.3 mg/0.3 mL 0.3 mg (0.3 mL) IM ONCE #2 ea 02/16/24 injection, auto-injector ibuprofen 800 mg tablet 800 mg PO Q8H PRN pain #20 tabs 06/24/24 semaglutide (weight loss) 0.25 0.25 mg (0.5 mL) subcut QWEEK #2 mL 06/24/24 mg/0.5 mL subcutaneous pen injector (Wegovy) ondansetron 4 mg disintegrating 4 mg PO Q6H PRN nausea and 08/15/24 tablet vomiting #20 tabs sulfamethoxazole 800 1 tab PO BID 5 days #10 tabs 08/15/24 mg-trimethoprim 160 mg tablet (Bactrim DS) Allergies Allergy/AdvReac Type Severity Reaction Status Date / Time bupropion (From Wellbutrin) Allergy Severe Pt states Verified 08/15/24 11:08 serum sickness onion Allergy Severe Anaphylaxis Verified 08/15/24 11:08 General Stated Complaint: Urinary NINFA: 3 Exam Narrative Exam Narrative: Review of Systems: All systems reviewed & are unremarkable except as noted in HPI and below Well-developed, no acute distress Afebrile RRR Unlabored respiratory effort clear bilaterally Nondistended abdomen soft, mild suprapubic tenderness, right CVA tenderness Course Vital Signs Vital signs: Vital Signs Temperature 36.4 C L 08/15/24 10:36 Pulse 88 08/15/24 10:36 Respiratory Rate 16 08/15/24 10:36 Blood Pressure 107/73 08/15/24 10:36 Pulse Oximetry 98 08/15/24 10:36 Temperature 36.4 C L 08/15/24 10:36 Pulse 88 08/15/24 10:36 Respiratory Rate 16 08/15/24 10:36 Respiratory Effort Normal 08/15/24 10:40 Blood Pressure 107/73 08/15/24 10:36 Blood Pressure Position Sitting 08/15/24 10:36 Pulse Oximetry 98 08/15/24 10:36 Oxygen Delivery Method Room Air 08/15/24 10:36 Oxygen Flow Rate 0 08/15/24 10:36 Pain Level 8 08/15/24 11:23 Lab/Test Results Lab/Test Results: 08/15/24 11:05 Urine - Voided Urine Culture - Pending Laboratory Tests Range/Units 08/15/24 11:06 Sodium (136-145) mmol/L 139 Potassium (3.5-5.1) mmol/L 3.6 Chloride (98-107) mmol/L 102 Carbon Dioxide (21.0-32.0) mmol/L 30.0 Anion Gap (3-11) mmol/L 7.0 BUN (7-18) mg/dL 6 L Creatinine (0.55-1.02) mg/dL 1.0 Est GFR (CKD-EPI 2020) (mL/min/1.73m2) 68.63 Glucose (74-106) mg/dL 92 Calcium (8.5-10.1) mg/dL 9.4 Total Bilirubin (0.2-1.0) mg/dL 0.56 AST (15-37) U/L 25 ALT (14-59) U/L 30 Alkaline Phosphatase (46-116) U/L 134 H Total Protein (6.4-8.2) g/dL 7.7 Albumin (3.4-5.0) g/dL 4.0 Medical Decision Making Emergent evaluation of flank pain. Initial concerns include UTI, pyelonephritis, perinephric abscess. Patient is afebrile here. Her urine at is contaminated with Azo but will run and send for culture. Will check blood work, renal function and get CT imaging of the abdomen. Lab work reviewed. There is no leukocytosis or anemia. No electrolyte derangement. Renal function is within normal limits. Her urinalysis was unable to be ran secondary to the color discoloration from the Azo. She does have 20-50 white blood cells and a few bacteria. A culture has been sent. I reviewed her prior culture and noted that it was E. coli pansensitive. First dose of Bactrim given in the emergency department and will discharge home with a course of Bactrim. Zofran additional sent to the pharmacy. Return precautions advised. Recommend close follow-up with PCP as needed. Quality:SDOH Health Related Social Needs: No Data to Display PFSH All Active Problems (Updated 08/15/24 @ 12:21 by Jaden Jennings MD) Acute flank pain (Acute) Fever (Acute) Dysuria (Acute) Celiac artery stenosis (Acute) per CT Dental infection (Acute) Seborrheic keratosis (Acute) Vitamin D deficiency (Acute) Altered gait (Acute) Hematoma (Acute) Upper back pain (Acute) Neck pain (Acute) Mass in neck (Acute) Periodic heart flutter (Acute) S/P partial gastrectomy (Acute) Syncope (Chronic) Hypochromic anemia (Acute) check CBC and ferritin q6-12m, refer back to hem/onc for iron transfusion for ferritin <30 BPPV (benign paroxysmal positional vertigo) (Acute) Restless legs (Acute) Elevated LFTs (Acute) Arthralgia (Acute) Microcytosis (Acute) Left wrist pain (Acute) Left upper arm pain (Acute) Painful lumpy right breast (Acute) Hx of endometriosis (Acute) Labial cyst (Acute) Right, 1 cm Pelvic pain (Acute) Medical History Urinary tract infection Obesity Gastroparesis Low back pain Hemorrhoids Anxiety about health Mild episode of recurrent major depressive disorder PTSD (post-traumatic stress disorder) Hx of colonic polyp Hiatal hernia with GERD Barretts esophagus with dysplasia Tibial plateau fracture, left orif, metal in left tibia UTI (urinary tract infection) Left flank pain Chronic bladder pain Surgical History H/O right breast biopsy Hx of knee surgery Hx of hysterectomy History of esophagogastroduodenoscopy (EGD) History of cholecystectomy History of partial gastrectomy History of Magdaleno fundoplication History of laparoscopy Hx of section H/O hysterectomy with oophorectomy Unilateral oophorectomy for endometriosis Family History Mother , 75 Cancer Cervical Depression Heart disease Hyperlipidemia Stroke Father , 81 Diabetes Hypertension Brother , 51 Heart disease Hyperlipidemia Stroke Brother Heart disease Hyperlipidemia Hypertension Son No problems noted. Son No problems noted. Maternal Grandfather , 77 Cancer Lung Diabetes Heart disease Stroke Paternal Grandfather , 75 Diabetes Heart disease Hypertension Maternal Grandmother , 63 Cancer Breast Diabetes Stroke Paternal Grandmother , 76 Cancer Ovarian Heart disease Hypertension Stroke Social History Smoking/Tobacco Use Status: Former Tobacco Use tobacco type: cigarettes Quit Date: 09/15/94 Tobacco: How many years used: 12 Second Hand Exposure: Yes Smoking risk assessment performed?: Yes Alcohol Intake: current Alcohol Intake frequency: holidays/special occasions only Alcohol type: wine Drug use: Never Substance use type: does not use Household members: spouse Pets and animals: Yes Pets and animals: cat(s), dog(s) and horse(s) Sexually active: Yes Current gender identity: female What is your relationship status?: How often do you talk on the phone with friends or family?: three or more times per week How often do you get together with friends or relatives?: three or more times per week How often do you attend jain or anabaptism services?: 1-3 times per year Do you belong to any clubs or organized social groups?: yes Panel score (0-1 are the most socially isolated patients): 3 What type of physical activity do you participate in: walking Duration: 30-45 minutes/day Frequency: 3-4 times per week Radha/Evangelical: Nondenominational Special radha needs: No Seatbelt use: always Helmet use: Yes Helmet use: always Drive intox or ride w/intox drive away driver: No Do you feel safe at home: Yes Do you feel safe in your relationship?: Yes Female Reproductive History Menstrual Menopause type: surgical History History 3 Para 2 Hx # Term Pregnancies 2 Multiple births Hx # Pregnancies Ectopic pregnancies AB induced Hx Number of Living Children 2 AB spontaneous
[2024-08-15 11:54] LABS: Abs Immature Grans 0.03 10^3/uL (0.0-0.06); Absolute Basophil Count 0.02 10^3/uL (0.0-0.2); Absolute Eosinophil Count 0.08 10^3/uL (0.0-0.7); Absolute Lymphocyte Count 2.75 10^3/uL (1.2-3.4); Absolute Monocyte Count 0.51 10^3/uL (0.1-0.8); Absolute Neutrophil Count 5.35 10^3/uL (1.2-6.7); Basophils % 0.2 %; Eosinophils % 0.9 %; HCT 42.4 % (36.0-46.0); HGB 13.6 g/dL (11.2-15.7); Immature Grans % 0.3 %; Lymphocytes % 31.5 %; MCH 26.8 pg (27.0-33.0); MCHC 32.1 % (32.0-36.0); MCV 84 fL (80-95); MPV 10.3 fL (8.0-11.0); Monocytes % 5.8 %; Neutrophils % 61.3 %; Platelet Count 247 10^3/uL (130-400); RBC 5.07 10^6/uL (3.93-5.22); RDW 12.2 % (11.7-14.6); RDW-SD 37.2 fL; WBC 8.74 10^3/uL (4.4-10.8)
--- NOTE | 2024-08-15 12:03 | DI.VRAD_ITS ---
PROCEDURE INFORMATION: Exam: CT Abdomen And Pelvis Without Contrast Exam date and time: 08/15/2024 11:35 AM Age: 49 years old Clinical indication: Abdominal pain; Patient HX: Right flank pain TECHNIQUE: Imaging protocol: Computed tomography of the abdomen and pelvis without contrast. COMPARISON: CT ABDOMEN PELVIS WO/W 01/02/2024 9:30 AM FINDINGS: Liver: Normal. No mass. Gallbladder and biliary ducts: Cholecystectomy Pancreas: Normal. No ductal dilation. Spleen: Normal. No splenomegaly. Adrenal glands: Normal. No mass. Kidneys and ureters: There is no evidence of renal or ureteral calcifications. Stomach and bowel: Gastric sutures and sutures in the jejunum . No obstruction Appendix: Normal appendix Intraperitoneal space: Unremarkable. No free air. No significant fluid collection. Vasculature: Unremarkable. No abdominal aortic aneurysm. Lymph nodes: Unremarkable. No enlarged lymph nodes. Urinary bladder: Unremarkable as visualized. Reproductive: Surgical resection of the uterus Bones/joints: Unremarkable. No acute fracture. Soft tissues: Unremarkable. IMPRESSION: 1. There is no evidence of renal or ureteral calcifications. 2. Normal appendix Dictated and Authenticated by: Julio Dial MD. Ordering:[facility] Michaela Palacios MD
--- OUTSIDE RECORDS SUMMARY | 2024-08-15 12:07 | XMS_ITS | Encounter Summary ---
Author Organization Formerly [facility] Address [facility] [place] [address] Care Team Providers Care Brazing Machine Operator Helper Name Role Phone Mike Goodman DNP Primary Care Provider [phone]- [phone] Encounter Details Date Type Department Care Team (Latest Contact Info) Description 07/27/2024 Travel Social History Tobacco Use Types Packs/Day Years Used Date Smoking Tobacco: Former Cigarettes Q uit: 12/03/2003 Smokeless Tobacco: Never Alcohol Use Standard Drinks/Week Comments No 0 (1 standard drink = 0.6 oz pur e alcohol) [facility] Utilities Answer Date Recorded In the [...] Care Team (Late st Contact Info) Description 08/23/2024 3:30 PM EST TH Visit (TeleHealth) [place] [address] Roxana Webb MD [facility] [address] documented as of this encounter Visit Diagnoses Not on filedocumented in this encounter Care Teams Brazing Machine Operator Helper Relationship Specialty Start Date End Date Mike Goodman DNP [address] [place] [address] PCP - General Family Medicine 08/22/22 documented as of this encounter
--- OUTSIDE RECORDS SUMMARY | 2024-08-15 12:07 | XMS_ITS | Encounter Summary ---
Author Organization Formerly [facility] [place] [address] Care Team Providers Care Edge Beader Name Role Phone Mike Goodman DNP Primary Care Provider [phone]- [phone] Reason for Visit * Auth/Cert (Routine) Specialty Diagnoses / Procedures Referred By Martha broussard Referred To Contact Diagnoses Altered bowel function Bloating Gastroesophageal reflux disease, unspecified whether esophagitis present Esophageal dysphagia Nausea without vomiting Lower abdominal pain EGD hx of barretts, hx of anjel fund, esophageal dypshagia penitentiary- please take biopsies for EoE, ongoing GERD [...] COLONOSCOPY, DIAGNOSTIC (WRVU 3.26) Carolyn Lopez MD [facility] [place] [address] [facility] Referral ID Status Reason Start Date Expiration Date Visits Re quested Visits Authorized [id number] 1 1 Encounter Details Date Type Department Care Team (Late st Contact Info) Description 05/24/2024 9:30 AM EDT - 05/24/2024 10:30 AM EDT Surgery [place] [address] Carolyn Lopez MD [facility] [place] [address] EGD WITH BIOPSY (VU 2.39) Social History Tobacco Use Types Packs/Day Years Used Date Smoking Tobacco: Former Cigarettes Q uit: 12/03/2003 Smokeless Tobacco: Never Alcohol Use Standard Drinks/Week Comments No 0 (1 standard drink = 0.6 oz pur e alcohol) [facility] Utilities Answer Date Recorded In the [...] the day after the test, use an yygw-wwr-[id number] spray or lozenges to numbyour throat. Warm [...] occurs, please contact your doctor. Please call [phone] before 8pm Mon-Fri with problems, questions, or concerns. If you call after 8pm or on weekends, call the Hospital at [phone] and ask for the Plant Security Guard personal health coach and the inverform machine operator will contact that person for you. [...] more? You can view health information on [employer], your personal patient account. Log in or sign up today. Content Version: 12.2 ?? [id number] [employer]. Care instructions adapted under license by [facility]. If you have questions about a medical condition or this instruction, always ask your healthcare professional. [employer] disclaims any warranty or liability for your use of this information. documented in this encounter Medications at Time of Discharge Medication Sig Dispensed Refills Start Date End Date pantoprazole EC (Protonix) [address] tablet Take 1 tablet by mouth daily. 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 01/11/2011 ergocalciferoL, vitamin D2, (vitamin D2) 50,000 unit capsule Take 1 capsule by mouth daily. 30 capsule 1 05/03/2024 07/07/2024 documented as of this encounter Progress Notes * Niraj Kearns RN - 05/24/2024 11:36 AM EDT Patient alert and oriented, vital signs stable. Reviewed discharge instructions; patient and , Jay, verbalized understanding. Copy of instruction sheet with contact numbers for questions/concerns. Pain assessment documented. Patient escorted out of department via wheelchair with pushing wheelchair. * Mana Powell LPN - 05/10/2024 3:34 PM EDT Pt called back and asked for a return call . Called pt and reached VM. Left message to call back 05/10/24 1530 LM x 1 to call GAS Nurse back at [phone] 05/24/24 0930 EGD/[place] IVCS Arrival Time: 829 Past Medical [...] PM EST TH Visit (TeleHealth) [place] [address] Roxana Webb MD [facility] [place] [address] documented as of this encounter Procedures Procedure Name Priority Date/Time Associated Diagnosis Comments SURGICAL PATHOLOGY Routine 05/24/2024 9: 57 AM EDT Colonoscopy, Biopsy ([id number]) 05/24/2024 9:46 AM EDT Altered bowel function Bloating Gastroesophageal reflux disease, unspecified whether esophagitis present Esophageal dysphagia Nausea without vomiting Lower abdominal pain Upper Gi Endoscopy, Biopsy ([id number]) 05/24/2024 9:46 AM EDT Altered bowel function Bloating Gastroesophageal reflux disease, unspecified whether esophagitis present Esophageal dysphagia Nausea without vomiting Lower abdominal pain UPPER GI ENDOSCOPY Routine 05/24/2024 9: 43 AM EDT COLONOSCOPY Routine 05/24/2024 9:35 AM EDT documented in this encounter Results * Surgical Pathology (05/24/2024 9:57 AM EDT) Case Report Surgical Pathology Report ? Case: [id number] ? Authorizing Provider: ??Carolyn Lopez MD ?Collected: ? 05/24/2024 0957 ? Ordering Location: ? Gastroenterology at [facility] ?? Received: ?05/24/2024 1229 ? Pathologist: ? Stefani Roberts MD ? Specimens: ?? A) - Esophagus, Distal ? B) - Esophagus, Mid ? C) - Colon, nontargeted ? 05/27/2024 1:40 PM EDT [facility] Final Diagnosis A. Esophagus, Distal, Biopsy: Esophageal squamous mucosa within normal limits. B. Esophagus, Mid, Biopsy: Esophageal squamous mucosa within normal limits. C. Colon, nontargeted Biopsy: Colonic mucosa within normal limits. 05/27/2024 1:40 PM EDT [facility] Clinical Information A. Esophagus, Distal, Rule out eosinophilic esophagitis Dysphagia B. Esophagus, Mid, Rule out eosinophilic esophagitis Dysphagia C. Colon, nontargeted Rule out microscopic colitis Diarrhea 05/27/2024 1:40 PM EDT [facility] Gross Description A. Esophagus, Distal, [...] labeled C1-C3. pps 05/27/2024 1:40 PM EDT [facility] Result Note Routine 05/27/2024 1:40 PM EDT [facility] Tissue REGION OF ESOPHAGUS / Unknown 05/24/2024 9:57 AM EDT 05/24/2024 12:29 PM EDT Comment:Pre-op diagnosis: EGD hx of barretts, hx of anjel fund, esophageal dypshagia penitentiary- please take biopsies for EoE, ongoing GERD on BID PPI, wants a second opion EGD- last one done by Dr. 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 Sidra Cohen: diarrhea, watery, please take biopsies for microscopic coltiis Tissue specimen (specimen) COLON STRUCTURE / Unknown 05/24/2024 10:15 AM EDT 05/24/2024 12:29 PM EDT Comment:Pre-op diagnosis: EGD hx of barretts, hx of anjel fund, esophageal dypshagia penitentiary- please take biopsies for EoE, ongoing GERD on BID PPI, wants a second opion EGD- last one done by Dr. Sidra Cohen: diarrhea, watery, please take biopsies for microscopic coltiis Carolyn Lopez MD PATHOLOGY/CYTOLOGY O PATRICIA Performing Organization Address City/State/[facility] [place] [address] * UPPER GI ENDOSCOPY (05/24/2024 9:43 AM EDT) UPPER GI ENDOSCOPY [facility] Endoscopy Procedure Date: 05/24/2024 9:43 AM ? Patient Name: Mora Bolanos ? Date of : 1975 ? Age: 48 ? Order #: [id number] ? Instrument Name: [id number] ? Procedure: ? Upper GI endoscopy Indications: ? Dysphagia Patient Profile: ? 48F s/p Analia-en-Y with dysphagia Providers: ? Eamon Mccormack, CHELO, ? Symone Queen, Pulverizer Referring MD: ?Senait Manley Lyman Medicines: ? Benzocaine spray, Midazolam 3 mg [...] PROVATION 05/24/2024 9:43 AM EDT Senait Rico INCOME TAX ADJUSTER GENERAL SURGICAL O RDERABLES PROVATION * COLONOSCOPY (05/24/2024 9:35 AM EDT) COLONOSCOPY [facility] Endoscopy Procedure Date: 05/24/2024 9:35 AM ? Patient Name: Mora Bolanos ? Date of : 1975 ? Age: 48 ? Order #: [id number] ? Instrument Name: [id number] ? Procedure: ? Colonoscopy Indications: ? Clinically significant diarrhea of ? unexplained origin Patient Profile: ? 48F with diarrhea Providers: ? Eamon Mccormack RN, ? Symone Queen, Pulverizer Referring MD: ?Senait Rico Medicines: ? EGD sedation and ? Midazolam [...] preparation was evaluated ? using the BBPS ([place] Bowel ? Preparation Scale) with scores of: [...] AM PROVATION 05/24/2024 9:35 AM EDT Mike Shaikh Maxine DNP GENERAL SURGICAL OR DERABLES PROVATION documented [...] 0918 (New Bag - Prov ider: Melissa Mariscal, CHELO)1120 (Stopped - Provider: Niraj Kearns RN) PRN [...] RN) documented in this encounter Care Teams Edge Beader Relationship Specialty Start Date End Date Mike Goodman DNP [address] [place] [id number] PCP - General Family Medicine 08/22/22 documented as of this encounter
--- OUTSIDE RECORDS SUMMARY | 2024-08-15 12:07 | XMS_ITS | Encounter Summary ---
Author Organization [facility] Address [facility] [place] [address] Care Team Providers Care Multigraph Operator Name Role Phone Mike Goodman DNP Primary Care Provider +1- [phone] Encounter Details Date Type Department Care Team (Latest Contact Info) Description 06/15/2024 Travel Social History Tobacco Use Types Packs/Day Years Used Date Smoking Tobacco: Former Cigarettes Q uit: 12/03/2003 Smokeless Tobacco: Never Alcohol Use Standard Drinks/Week Comments No 0 (1 standard drink = 0.6 oz pur e alcohol) [facility] Utilities Answer Date Recorded [...] in a intermediate (including now)? No 10/16/2023 IPV Inpatient Questions [...] PM EST TH Visit (TeleHealth) [place] [address] Roxana Webb MD [facility] [place] [address] documented as of this encounter Visit Diagnoses Not on filedocumented in this encounter Care Teams Multigraph Operator Relationship Specialty Start Date End Date Mike Goodman DNP [address] [place] [address] PCP - General Family Medicine 08/22/22 documented as of this encounter
--- OUTSIDE RECORDS SUMMARY | 2024-08-15 12:07 | XMS_ITS | Encounter Summary ---
[facility] Address [facility] [place] [address] Care Team Providers Care Animal Control Supervisor Name Role Phone Mike Goodman DNP Primary Care Provider [phone]- [phone] Reason for Visit * Reason Onset Date Comments Medication Refill 07/07/2024 Encounter Details Date Type Department Care Team (Late st Contact Info) Description 07/07/2024 Refill [place] [address] Roxana Webb MD [facility] [place] [address] Social History Tobacco Use Types Packs/Day Years Used Date Smoking Tobacco: Former Cigarettes Q uit: 12/03/2003 Smokeless Tobacco: Never Alcohol Use Standard Drinks/Week Comments No 0 (1 standard drink = 0.6 oz pur e alcohol) [facility] Utilities Answer Date Recorded In the past 12 months has [employer], gas, oil, or water [employer] threatened to shut off services in your [...] place to sleep or slept in a [facility] (including now)? No 10/16/2023 DH IPV Inpatient [...] encounter Miscellaneous Notes * Telephone Encounter - Kalpana Bullard, A - 07/07/2024 2:30 PM EDT Prescription Renewal Request Name: Mora Bolanos : 1975 Prescription(s) Requested: Requested Prescriptions Pending Prescriptions Disp Refills ergocalciferoL, vitamin D2, (vitamin D2) 50,000 unit capsule 30 capsule 1 Sig: Take 1 capsule by mouth daily. Date of Encounter last in This Dept (If need an appointment send to secretaries to schedule): 05/03/[address] Webb (per note:Return in about 8 weeks (around 06/28/2024) forEither In Person or Telehealth. ) Next Encounter in This Dept: Visit date not found. Visit requested. Date of Last Refill (for each medication): ergocalciferoL, vitamin D2, (vitamin D2) 50,000 unit capsule Authorized By: Roxana Webb MD Take 1 capsule by mouth daily. Dispense: 30 capsule, Refills: 1ordered 05/03/2024 Note from 05/03/2024 visit: Assessment and Plan Vit D def with [...] goal, 30 ng/ml and above. Now takes 38152W vit D every other day, will increase to Ergoclaciferol 50,000 U daily for 4 weeks and repeat PTH/25-D level at that time. Will recheck 25, Vit D at [facility] outpatient follow up appointment. C. No need to repeat BMD by DXA D. I will schedule patient for outpatient visit at 4-8 weeks. Status of request: Pended Allergies Allergen Reactions Onion Anaphylaxis Bupropion Hcl Other (See Comments) serum sickness Metoclopramide Hcl Other (See Comments) Unknown ENOC ESTRADA 07/07/24 2:36 PM documented in this encounter Plan of Treatment Upcoming Encounters Date Type Department Care Team (Late st Contact Info) Description 08/23/2024 3:30 PM EST TH Visit (TeleHealth) [place] [address] Roxana Webb MD [facility] [place] [address] documented as of this encounter Visit Diagnoses Not on filedocumented in this encounter Care Teams Animal Control Supervisor Relationship Specialty Start Date End Date Mike Goodman DNP [address] [place] [address] PCP - General Family Medicine 08/22/22 documented as of this encounter
--- OUTSIDE RECORDS SUMMARY | 2024-08-15 12:07 | XMS_ITS | Encounter Summary ---
Author Organization [facility] Address [facility] [place] [address] Care Team Providers Care Policy Writer Name Role Phone Mike Goodman DNP Primary Care Provider [phone] [phone] Reason for Visit * Consultation (Routine) - Closed Specialty Diagnoses / Procedures Referred By Martha broussard Referred To Contact Endocrinology Diagnoses Vitamin D deficient osteomalacia Piotr Carolina MD [facility] [place] [address] Roxana Webb MD [facility] [place] [address] Referral ID Status Reason Start Date Expiration Date V isits Requested Visits Authorized [id number] Closed Consult, Test & Treat 02/11/2024 02/10/2025 1 1 Encounter Details Date Type Department Care Team (Latest Contact Info) Description 05/03/2024 4:00 PM EDT TH Visit (TeleHealth) [place] [address] Roxana Webb MD [facility] [place] [address] 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 Now takes 76483F vit D every other day, will increase to Ergoclaciferol 50,000 U daily for 4 weeks and repeat PTH/25-D level at that time. Will recheck 25, Vit D at [facility] outpatient follow up appointment. C. No [...] PM EST TH Visit (TeleHealth) Endocrinology at [place] [phone] Roxana Webb MD [facility] [place] [address] Scheduled Orders Name Type Priority Associated Diagnoses Orde r Schedule PTH Lab Routine Hyperparathyroidism due to intestinal [...] status documented in this encounter Care Teams Policy Writer Relationship Specialty Start Date End Date Mike Goodman DNP [address] [place] [address] PCP - General Family Medicine 08/22/22 documented as of this encounter
--- OUTSIDE RECORDS SUMMARY | 2024-08-15 12:07 | XMS_ITS | Encounter Summary ---
[place] [address] Care Team Providers Care Intranet Specialist Name Role Phone Mike Goodman KYLE Primary Care Provider [phone] [phone] Reason for Referral * Consultation (Routine) - Closed Specialty Diagnoses / Procedures Referred By Martha broussard Referred To Contact Vascular Surgery Diagnoses Abnormal CT of the abdomen [place] [address] [facility] [address] [place] [address] Referral ID Status Reason Start Date Expiration Date V isits Requested Visits Authorized [id number] Closed Consult, Test & Treat 06/16/2024 06/16/2025 1 1 Encounter Details Date Type Department Care Team (Late st Contact Info) Description 06/16/2024 Orders [place] [address] Alena Pizar[place] [address] of the abdomen Social History Tobacco Use Types Packs/Day Years Used Date Smoking Tobacco: Former Cigarettes Q uit: 12/03/2003 Smokeless Tobacco: Never Alcohol Use Standard Drinks/Week Comments No 0 (1 standard drink = 0.6 oz pur e alcohol) [facility] Utilities Answer Date Recorded In the [...] place to sleep or slept in a group home (including now)? No 10/16/2023 IPV Inpatient Questions [...] PM EST TH Visit (TeleHealth) [place] [address] Roxana Webb MD [facility] [place] [address] Scheduled Referrals Name Type Priority Associated Diagnoses Orde r Schedule Referral to Vascular Surgery Outpatient Referral Routine Abnormal CT of the abdomen Ordered: 06/16/2024 documented as of this encounter Visit Diagnoses Diagnosis Abnormal CT of the abdomen Nonspecific (abnormal) findings on radiological and other examination of abdominal area, including retroperitoneum documented in this encounter Care Teams Intranet Specialist Relationship Specialty Start Date End Date Mike Goodman DNP [address] [place] [address] PCP - General Family Medicine 08/22/22 documented as of this encounter
--- OUTSIDE RECORDS SUMMARY | 2024-08-15 12:07 | XMS_ITS | Encounter Summary ---
[place] [address] Care Team Providers Care Drive In Teller Name Role Phone Mike Goodman KYLE Primary Care Provider [phone]- [phone] Reason for Referral * Diagnostic Test (Routine) - Closed Specialty Diagnoses / Procedures Referred By Contac t Referred To Contact Radiology Diagnoses Altered bowel function Lower abdominal pain Procedures CT Enterography [place] [address] [facility] [place] [address] Referral ID Status Reason Start Date Expiration Date V isits Requested Visits Authorized [id number] Closed Specialty Service Requested 06/07/2024 12/05/2025 1 1 Reason for Visit * Diagnostic Test (Routine) - Closed Specialty Diagnoses / Procedures Referred By Contac t Referred To Contact Radiology Diagnoses Altered bowel function Lower abdominal pain Procedures CT Enterography [place] [address] [facility] [place] [address] Referral ID Status Reason Start Date Expiration Date V isits Requested Visits Authorized [id number] Closed Specialty Service Requested 06/07/2024 12/05/2025 1 1 Encounter Details Date Type Department Care Team (Latest Contact Info) Description 06/15/2024 1:22 PM EDT - 06/15/2024 11:59 PM EDT Hospital Encounter CT Scan at [facility] [address] [place] [address] Altered bowel function; Lower abdominal pain Discharge Disposition: Home Social History Tobacco Use Types Packs/Day Years Used Date Smoking Tobacco: Former Cigarettes Q uit: 12/03/2003 Smokeless Tobacco: Never Alcohol Use Standard Drinks/Week Comments No 0 (1 standard drink = 0.6 oz pur e alcohol) [facility] Utilities Answer Date Recorded In the [...] a senior living (including now)? No 10/16/2023 IPV Inpatient Questions [...] 05/03/2024 07/07/2024 documented as of this encounter Plan of Treatment Upcoming Encounters Date Type Department Care Team (Late st Contact Info) Description 08/23/2024 3:30 PM EST TH Visit (TeleHealth) [place] [address] Roxana Webb MD [facility] [place] [address] documented as of this encounter Procedures Procedure Name Priority Date/Time Associated Diagnosis Comments CT ENTEROGRAPHY Routine 06/15/2024 3:10 PM EDT Altered bowel function Lower abdominal pain documented in this encounter Results * CT Enterography (06/15/2024 3:10 PM EDT) [employer] Signature WORKSTATION ID [id number] RAD Anatomical Region Laterality Modality Chest, Abdomen Computed Tomogra phy Impressions 06/16/2024 12:54 PM EDT 1. ??Normal CT enterography. No CT evidence of enteritis or obstruction. 2. ??Postsurgical changes status post gastric bypass. 3. 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 Thank you for letting us participate in the care of this patient. ??If you are a health care provider and have any questions regarding this report, please contact the number below. ??For patients who have questions please contact the health outdoor emergency care technician that requested your imaging first. ? Electronically signed by: Anabel Wolf MD, [facility] ([phone]), at 06/16/2024 12:54 PM Narrative 06/16/2024 12:54 PM EDT EXAMINATION: CT ENTEROGRAPHY CLINICAL HISTORY: vomiting, rule out small bowel crohn's (please measure SMA angle, no angio needed) R19.8, Other specified symptoms and signs involving the digestive system and abdomen - R10.30, Lower abdominal pain, unspecified TECHNIQUE: Helical CT Enterography of the abdomen and pelvis following the intravenous administration of contrast. Administered 125.0 ml of OMNIPAQUE 350.00 mg/ml. Breeza was administered as oral contrast. COMPARISON: MRI abdomen 05/15/2023, MRI abdomen 03/05/2018, CT abdomen pelvis 03/02/2018 FINDINGS: Gastrointestinal tract: Postsurgical changes status post gastric bypass. Bypassed stomach is decompressed. No dilated small bowel loops or small bowel wall thickening. Normal fold pattern. Normal terminal ileum and appendix. No colonic wall thickening or dilatation. There are several diverticula in the sigmoid colon. No associated inflammation. Peritoneum and mesentery: No ascites, free air, or loculated fluid collection. No mesenteric inflammation. Lower chest: Normal. Liver: Normal size and attenuation without focal lesions. Patent hepatic and portal veins. Bile ducts: Nondilated. Gallbladder: Surgically absent. Pancreas: Normal attenuation without ductal dilatation. Spleen: Normal. Adrenals: Normal. Kidneys: Symmetric enhancement without lesions, hydronephrosis, or urolithiasis. Urinary Bladder: Normal. 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 Widely patent origin of the superior mesenteric and inferior mesenteric arteries. Normal aorta-SMA angle and interval (90 degrees and 12 mm). Normal caliber aorta. Lymph Nodes: No enlarged lymph nodes. Abdominal wall: Normal. Reproductive organs: Uterus is absent. Neither ovary is visualized. No adnexal masses. Osseous structures: No suspicious lesions. Procedure Note Anabel Wolf MD - 06/16/2024 EXAMINATION: CT ENTEROGRAPHY CLINICAL HISTORY: vomiting, rule out small bowel crohn's (please measureSMA angle, no angio needed) R19.8, Other specified symptoms and signs involving the digestive systemand abdomen - R10.30, Lower abdominal pain, unspecified TECHNIQUE: Helical CT Enterography of the abdomen and pelvis followingthe intravenous administration of contrast. Administered 125.0 ml ofOMNIPAQUE 350.00 mg/ml. Breeza was administered as oral contrast. COMPARISON: MRI abdomen 05/15/2023, MRI abdomen 03/05/2018, CT abdomenpelvis 03/02/2018 FINDINGS: Gastrointestinal tract: Postsurgical changes status post gastric bypass. Bypassed stomach is decompressed. No dilated small bowel loops or smallbowel wall thickening. Normal fold pattern. Normal terminal ileum and appendix.No colonic wall thickening or dilatation. There are several diverticula inthe sigmoid colon. No associated inflammation. Peritoneum and mesentery: No ascites, free air, or loculated fluidcollection. No mesenteric inflammation. Lower chest: Normal. Liver: Normal size and attenuation without focal lesions. Patent hepaticand portal veins. Bile ducts: Nondilated. Gallbladder: Surgically absent. Pancreas: Normal attenuation without ductal dilatation. Spleen: Normal. Adrenals: Normal. Kidneys: Symmetric enhancement without lesions, hydronephrosis, orurolithiasis. Urinary Bladder: Normal. 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 Widelypatent origin of the superior mesenteric and inferior mesenteric arteries.Normal aorta-SMA angle and interval (90 degrees and 12 mm). Normal caliberaorta. Lymph Nodes: No enlarged lymph nodes. Abdominal wall: Normal. Reproductive organs: Uterus is absent. Neither ovary is visualized. Noadnexal masses. Osseous structures: No suspicious lesions. IMPRESSION 1. Normal CT enterography. No CT evidence of enteritis or obstruction. 2. Postsurgical changes status post gastric bypass. 3. 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 Thank you for letting us participate in the care of this patient. If youare a health care provider and have any questions regarding this report,please contact the number below. For patients who have questions please contactthe health outdoor emergency care technician that requested your imaging first. Electronically signed by: Anabel Wolf MD, [facility]([phone]), at 06/16/2024 12:54 PM Alena M Juarez [facility] IMG CT ORDERABLES documented in this encounter Visit Diagnoses Diagnosis Altered bowel function Other symptoms involving digestive system Lower abdominal pain Abdominal pain, other specified site documented in this encounter Administered Medications Inactive Administered Medications - up to 3 most recent administrations Medication Order MAR Action Action Date Dose Rate Site flavored contrast (Breeza) oral liquid 1,500 mL 1,500 mL, Oral, ONCE PRN, 1 dose, Starting on Fri06/15/24 at 1506, Until Fri06/15/24 at 1506, Per Protocol, Radiology Contrast, Routine Given 06/15/2024 3:06 PM EDT 1,500 mLs iohexoL (Omnipaque) (350 mg/mL) solution 0-200 mL 0-200 mL, Intravenous, ONCE PRN, 1 dose, Starting on Fri06/15/24 at 1506, Until Fri06/15/24 at 1506, Per Protocol, Warning Vesicant/Irritant Medication , Radiology Contrast, Routine Given 06/15/2024 3:06 PM EDT 125 mLs documented in this encounter Care Teams Drive In Teller Relationship Specialty Start Date End Date Mike Goodman DNP [address] [place] [address] PCP - General Family Medicine 08/22/22 documented as of this encounter
--- OUTSIDE RECORDS SUMMARY | 2024-08-15 12:07 | XMS_ITS | Encounter Summary ---
[place] [address] Care Team Providers Care Screen Printing Machine Operator Name Role Phone Mike Goodman KYLE Primary Care Provider [phone]- [phone] Reason for Visit * Reason Onset Date Comments Other 07/27/2024 Patient Navigati on Encounter Details Date Type Department Care Team (Late st Contact Info) Description 07/27/2024 Telephone [place] [address] Estrellita Russell Other (Patient Navigation/) Social History Tobacco Use Types Packs/Day Years Used Date Smoking Tobacco: Former Cigarettes Q uit: 12/03/2003 Smokeless Tobacco: Never Alcohol Use Standard Drinks/Week Comments No 0 (1 standard drink = 0.6 oz pur e alcohol) [facility] Utilities Answer Date Recorded In the past 12 months has [facility] [employer], gas, oil, or water [employer] threatened to shut off services in your [...] encounter Miscellaneous Notes * Telephone Encounter - Estrellita Russell - 07/27/2024 1:03 PM EST Called patient, who is followed in the GI Motility Program by Alena Pizarro APRN. The patient had a difficult experience when seeing Vascular Surgery today in that she felt that ainsleycern was dismissed because no obvious reason for her on-going abdominal pain was found. She has had very good experiences with Dr. Cassidy in General Surgery, but he reportedly cannot find areason for the pain. She resents being perceived as drug-seeking, when she absolutely never wants to take pain medication. She wonders if the mild celiac stenosis seen on CT enterography imaging might still be a cause ofher pain. She is frustrated by getting a lot of testing that has not yet pointed to a cause or treatment plan. Agreed to convey her concerns to Mx. Pizarro to discuss next steps. Patient is welcome to contact this check writer at any point, if helpful. Estrellita Russell MA Patient Navigator Section of Gastroenterology & Hepatology documented in this encounter Plan of Treatment Upcoming Encounters Date Type Department Care Team (Late st Contact Info) Description 08/23/2024 3:30 PM EST TH Visit (TeleHealth) [place] [address] Roxana Webb MD [facility] [place] [address] documented as of this encounter Visit Diagnoses Not on filedocumented in this encounter Care Teams Screen Printing Machine Operator Relationship Specialty Start Date End Date Mike Goodman DNP [address] [place] [address] PCP - General Family Medicine 08/22/22 documented as of this encounter
--- OUTSIDE RECORDS SUMMARY | 2024-08-15 12:07 | XMS_ITS | Encounter Summary ---
Author Organization [facility] Address [facility] [place] [address] Care Team Providers Care Design Teacher Name Role Phone Mike Goodman DNP Primary Care Provider [phone]- [phone] Encounter Details Date Type Department Care Team (Late st Contact Info) Description 05/04/2024 Telephone [place] [phone] Roxana Webb MD [facility] [place] [address] Social History Tobacco Use Types Packs/Day Years Used Date Smoking Tobacco: Former Cigarettes Q uit: 12/03/2003 Smokeless Tobacco: Never Alcohol Use Standard Drinks/Week Comments No 0 (1 standard drink = 0.6 oz pur e alcohol) [facility] Utilities Answer Date Recorded In the past 12 months has [employer], gas, oil, or water [employer] threatened to shut off services in your [...] in a assisted (including now)? No 10/16/2023 IPV Inpatient Questions [...] Webb can either be in person of TH. documented in this encounter Plan of Treatment Upcoming Encounters Date Type Department Care Team (Late st Contact Info) Description 08/23/2024 3:30 PM EST TH Visit (TeleHealth) [place] [address] Roxana Webb MD [facility] [place] [address] documented as of this encounter Visit Diagnoses Not on filedocumented in this encounter Care Teams Design Teacher Relationship Specialty Start Date End Date Mike Goodman DNP [address] [place] [address] PCP - General Family Medicine 08/22/22 documented as of this encounter
--- OUTSIDE RECORDS SUMMARY | 2024-08-15 12:07 | XMS_ITS | Encounter Summary ---
[place] [address] Care Team Providers Care Weigh Tank Operator Name Role Phone Mike Goodman KYLE Primary Care Provider [phone] [phone] Reason for Referral * Diagnostic Test (Routine) - Closed Specialty Diagnoses / Procedures Referred By Martha broussard Referred To Contact Radiology Diagnoses Altered bowel function Lower abdominal pain Procedures CT Enterography [place] [address] [facility] [place] [address] Referral ID Status Reason Start Date Expiration Date V isits Requested Visits Authorized [id number] Closed Specialty Service Requested 06/07/2024 12/05/2025 1 1 Encounter Details Date Type Department Care Team (Late st Contact Info) Description 06/07/2024 Orders [place] [address] Alena Pizarro GRAVITY PR[place]PECTING [place] [address] Altered bowel function; Lower abdominal pain Social History Tobacco Use Types Packs/Day Years Used Date Smoking Tobacco: Former Cigarettes Q uit: 12/03/2003 Smokeless Tobacco: Never Alcohol Use Standard Drinks/Week Comments No 0 (1 standard drink = 0.6 oz pur e alcohol) [facility] Utilities Answer Date Recorded In [...] a group home (including now)? No 10/16/2023 DH IPV [...] PM EST TH Visit (TeleHealth) [place] [address] Roxana Webb MD [facility] [place] [address] documented as of this encounter Results * CT Enterography (06/15/2024 3:10 PM EDT) WORKSTATION ID [id number] RAD Anatomical Region Laterality Modality Chest, Abdomen [...] who have questions please contact the health wound care specialist that requested your imaging first. ? Narrative 06/16/2024 12:54 PM EDT EXAMINATION: CT [...] patients who have questions please contactthe health wound care specialist that requested your imaging first. Electronically signed by: Anabel Wolf MD, [facility]([phone]), at 06/16/2024 12:54 PM Alena Pizarro APRN [facility] ORDERABLES documented in this encounter Visit Diagnoses Diagnosis Altered bowel function Other symptoms involving digestive system Lower abdominal pain Abdominal pain, other specified site Altered bowel function Other symptoms involving digestive system Lower abdominal pain Abdominal pain, other specified site documented in this encounter Care Teams Weigh Tank Operator Relationship Specialty Start Date End Date Mike Goodman DNP [address] [place] [address] PCP - General Family Medicine 08/22/22 documented as of this encounter
--- OUTSIDE RECORDS SUMMARY | 2024-08-15 12:07 | XMS_ITS | Encounter Summary ---
Author Organization [facility] [place] [address] Care Team Providers Care [employer] Teacher Name Role Phone Mike Goodman KYLE Primary Care Provider [phone] Reason for Visit * Consultation (Routine) - Closed Specialty Diagnoses / Procedures Referred By Martha broussard Referred To Contact Vascular Surgery Diagnoses Abnormal CT of the abdomen Alena Pizarro APRN [facility] [place] [address] [facility] Vascular Surg [address] [place] [address] Referral ID Status Reason Start Date Expiration Date V isits Requested Visits Authorized [id number] Closed Consult, Test & Treat 06/16/2024 06/16/2025 1 1 Encounter Details Date Type Department Care Team (Late st Contact Info) Description 07/27/2024 10:00 AM EST Office Visit [place] [address] Xavier Bailey MD [facility] [place] [address] Chronic abdominal pain Social History Tobacco Use Types Packs/Day Years Used Date Smoking Tobacco: Former Cigarettes Q uit: 12/03/2003 Smokeless Tobacco: Never Alcohol Use Standard Drinks/Week Comments No 0 (1 standard drink = 0.6 oz pur e alcohol) [facility] Utilities Answer Date Recorded In the past [...] Sign Reading Time Taken Comments Blood Pressure 110/78 07/27/2024 10:01 AM EST Pulse 82 07/27/2024 10:01 AM EST Temperature - - Respiratory Rate - - Oxygen Saturation - - Inhaled Oxygen Concentration - - Weight 68.5 kg (151 lb) 07/27/2024 10:01 AM EST Height 154.9 cm (5' 1) 07/27/2024 10:01 AM EST Body Mass Index 28.53 07/27/2024 10:01 AM EST documented in this encounter Progress Notes * Xavier Bailey MD - 07/27/2024 10:00 AM EST OUTPATIENT VASCULAR SURGERY CONSULTATION Reason for Visit: ? MALS History of Present Illness: Mora Bolanos is a 49 y.o. female referred for MALS evaluation. 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 She undergoes year endoscopy and has had 8 previous abdominal operations, last of which was here in Jul 2023. Patient reports that she has now had pain for 3 years. She says that the pain is debilitating where she literally cannot function but only crawl into a position. It occurs approximately every couple weeks. Food makes itworse. Pressure movement has no effect on it. Nothing makes it better. She has go to the ER sometimes for pain control. During her extensive workup she was told that she might have median arcuate ligament syndrome. Her pain is not related to her breathing. It is not positional. reports that she quit smoking about 20 years ago. Her smoking use included cigarettes. She has never used smokeless tobacco. Patient Active Problem List Diagnosis Code Gastroesophageal reflux K21.9 Dyspepsia R10.13 Disorder of female genital organ N94.9 Endometriosis of other specified sites N80.8 Nausea R11.0 S/P partial gastrectomy Z90.3 Paroxysmal SVT (supraventricular tachycardia) I47.10 Chest pressure R07.89 Lipid screening Z13.220 Iron deficiency anemia due to chronic blood loss D50.0 Current Outpatient Medications: ergocalciferoL, vitamin D2, (vitamin D2) 50,000 unit capsule, Take 1 capsule by mouth daily., Disp:30 capsule, Rfl: 1 pantoprazole EC (Protonix) [address] tablet, Take 1 tablet by mouth daily. (Patient taking differently: Take 40 mg by mouth 2 times daily.), Disp: 90 tablet, Rfl: 3 epiNEPHrine 0.15 mg/0.15 mL Cmpk combo pack, Inject into the muscle as needed (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, Disp: , Rfl: Allergies Allergen Reactions Onion Anaphylaxis Bupropion Hcl Other (See Comments) serum sickness Metoclopramide Hcl Other (See Comments) Unknown Review of Systems: Constitutional (weight change, fever) - + Neuro (dizziness, seizures, numbness, tingling) - Denies Eyes (vision) - Denies Ears, nose, throat (hearing) - Denies Cardiovascular (CP) - + Respiratory (SOB) - Denies GI (abd pain, nausea, emesis, blood in stool) - + (hematuria, dysuria, frequency) - Denies Muscoloskeletal (extremity pain, weakness) - Denies Skin (ulcers, rashes) - Denies Functional Status/Social Hx: Lives at home, Retired, Drives Car, Denies Tobacco Use, Occasional ETOH Family Hx: Negative for Thrombosis, Bleeding Disorders Physical Exam: There were no vitals taken for this visit. General - NAD, appears stated age Neuro - Alert and Oriented, Motor Sensory grossly intact Skin - No prominent markings or lesions Ear, Nose, Throat - No masses, No lesions Cardiac - RRR, no murmurs Lungs - Clear Abd - Soft, NT, ND, No palpable pulsatile masses Musculoskeletal- full ROM upper and lower extremities Psych- alert oriented X3 Extremities - Warm, pink, no edema, brisk capillary refill IMPRESSION 1. Normal CT enterography. No CT evidence of enteritis or obstruction. 2. Postsurgical changes status post gastric bypass. 3. Mild stenosis at the origin of the celiac axis with widely patent superior and inferior mesenteric arteries. Duplex: Interpretation: Patent celiac and superior mesenteric arteries with no evidence of significant stenosis. Patent common hepatic, splenic and inferior mesenteric arteries with no evidence of significant stenosis. Assessment and Plan: 49 y.o. female with abdominal pain. I advised the patient that her anatomy on the ultrasound and CT scan are not consistent with MALS. Her history and symptoms are not consistentwith it either. Asked her to follow up with her PCP and vascular prn. I did my best to answer all of her questions. documented in this encounter Plan of Treatment Upcoming Encounters Date Type Department Care Team (Late st Contact Info) Description 08/23/2024 3:30 PM EST TH Visit (TeleHealth) [place] [address] Roxana Webb MD [facility] [place] [address] Scheduled Referrals Name Type Priority Associated Diagnoses Orde r Schedule Referral to Vascular Surgery Outpatient Referral Routine Abnormal CT of the abdomen Ordered: 06/16/2024 documented as of this encounter Visit Diagnoses Diagnosis Chronic abdominal pain Abdominal pain, unspecified site documented in this encounter Care Teams [employer] Biology Teacher Relationship Specialty Start Date End Date Mike Goodman DNP [address] [place] [phone] PCP - General Family Medicine 08/22/22 documented as of this encounter
--- OUTSIDE RECORDS SUMMARY | 2024-08-15 12:07 | XMS_ITS | Encounter Summary ---
Author Organization [facility] [address] Care Team Providers Care Citrus Fruit Colorer Name Role Phone Mike Goodman DNP Primary Care Provider [phone] Encounter Details Date Type Department Care Team (Latest Contact Info) Description 04/27/2024 5:40 PM EDT Laboratory Appointment Lab [address] [place] [id number] Altered bowel function Social History Tobacco Use Types Packs/Day Years Used Date Smoking Tobacco: Former Cigarettes Q uit: 12/03/2003 Smokeless Tobacco: Never Alcohol Use Standard Drinks/Week Comments No 0 (1 standard drink = 0.6 oz pur e alcohol) [facility] Utilities Answer Date Recorded In the past 12 months has e electric, gas, oil, or water [email or web address] threatened to shut off services in your [...] in a fci (including now)? No 10/16/2023 IPV Inpatient Questions [...] PM EST TH Visit (TeleHealth) [place] [address] Roxana Webb MD [facility] [place] [address] documented as of this encounter Procedures Procedure [...] Tissue Transglutaminase, IgA (04/27/2024 4:14 PM EDT) Pathologist [facility] TTG IgA Ab <0.4 <=10.0 U/mL 04/28/2024 3:02 PM EDT [facility] Blood VENOUS BLOOD SPECIMEN / Unknown Venipuncture / Unknown 04/27/2024 4:14 PM EDT 04/27/2024 4:15 PM EDT Narrative [facility] - 04/28/2024 3:02 PM EDT <7 U/mL: Negative 7-10 U/mL: Indeterminate >10 U/mL: Positive Alena Pizarro APRN IMMUNOLOGY ORDERAB LES [facility] [place] [address] * IgG (04/27/2024 4:14 PM EDT) Pathologist [facility] IgG 842 700 - 1,600 mg/dL 04/27/2024 5:18 PM EDT [facility] Blood VENOUS BLOOD SPECIMEN / Unknown Venipuncture / Unknown 04/27/2024 4:14 PM EDT 04/27/2024 4:15 PM EDT Alena Pizarro APRN CHEMISTRY ORDERABL ES [facility] [place] [address] * IgA (04/27/2024 4:14 PM EDT) Pathologist [facility] IgA 215 70 - 400 mg/dL 04/27/2024 5:18 PM EDT [facility] Blood VENOUS BLOOD SPECIMEN / Unknown Venipuncture / Unknown 04/27/2024 4:14 PM EDT 04/27/2024 4:15 PM EDT Alena Pizarro LEAD DEVELOPER CHEMISTRY ORDERABL ES Performing Organization Address [facility] Co de Phone Number [facility] [place] [address] * TSH (04/27/2024 4:14 PM EDT) Thyroid Stimulating Hormone 1.26 0.27 - 4.20 mcIU/mL 04/27/2024 5:23 PM EDT [facility] Comment: Reference Interval (mcIU/mL): ?? Females: ? First Trimester: 0.23-3.88 ? Second Trimester: 0.22-3.90 ? Third Trimester: 0.44-4.66 Blood VENOUS BLOOD SPECIMEN / Unknown Venipuncture / Unknown 04/27/2024 4:14 PM EDT 04/27/2024 4:15 PM EDT Alena Pizarro APRN CHEMISTRY ORDERABL ES Performing Organization Address [facility] Co de Phone Number [facility] [place] [address] documented in this encounter Visit Diagnoses Diagnosis Altered bowel function Other symptoms involving digestive system documented in this encounter Care Teams Cit[employer] Fruit Colorer Relationship Specialty Start Date End Date Mike Goodman DNP [address] [place] [id number] PCP - General Family Medicine 08/22/22 documented as of this encounter
--- OUTSIDE RECORDS SUMMARY | 2024-08-15 12:07 | XMS_ITS | Clinical Summary ---
Author Organization Formerly [facility] Address [facility] [place] [address] Care Team Providers Care Salary And Wage Administrator Name Role Phone Mike Goodman DNP Primary Care Provider [phone] Allergies Active Allergy Reactions Criticality Noted Date [...] capsule by mouth daily. 30 capsule 1 07/07/2024 Active Active Problems Problem Noted Date Diagnosed [...] Encounters Date Type Department Care Team Description 07/27/2024 10:00 AM EST Office [place] [address] Xavier Bailey MD Chronic abdominal pain 07/27/2024 [place] [address] Alena Pizarro, LOUIE 07/27/2024 Orders [place] [address] Alena Pizarro APRN 07/27/2024 [place] [address] Estrellita Russell Other (Patient Navigation/) 07/27/2024 Travel 07/22/2024 Telephone [place] [address] Mirna Wray 07/07/2024 [place] [address] Roxana Webb MD 06/16/2024 Orders [place] [address] Alena Pizarro, TELEPHONE RECORDER Abnormal CT of the abdomen 06/15/2024 1:22 PM EDT - 06/15/2024 11:59 PM EDT Hospital [place] [address] Alena Pizarro, TELEPHONE RECORDER Altered bowel function; Lower abdominal pain Discharge Disposition: Home 06/15/2024 Travel 06/07/2024 Orders [place] [address] Alena Pizarro, TELEPHONE RECORDER Altered bowel function; Lower abdominal pain 06/02/2024 Telephone [place] [address] Michael Sorensen 05/24/2024 9:30 AM EDT - 05/24/2024 10:30 AM EDT [place] [address] Carolyn Lopez MD EGD WITH BIOPSY (WRVU 2.39) 05/24/2024 8:44 AM EDT - 05/24/2024 11:30 AM EDT Hospital [place] [address] Carolyn Lopez MD Discharge Disposition: Home from Last 3 Months Immunizations Name Administration Dates Next Due DTaP 05/17/1982, 6,04/15/1975, 975,1974 Measles Vaccine (Attenuvax)LIVE 12/15/1975 Mumps Vaccine (Mumpsvax) LIVE 05/17/1982 Polio Oral Trivalent LIVE (Orimune) 10/1981,12/15/1975,1974, 975 Rubella Vaccine (MeruVax II)LIVE 12/15/1975 Family History [...] = 0.6 oz pur e alcohol) [facility] Utilities Answer Date Recorded In the past 12 months has [employer], [employer], oil, or water [employer] threatened to shut off services in your [...] place to sleep or slept in a detention (including now)? No 10/16/2023 DH IPV Inpatient [...] Pulse 82 07/27/2024 10:01 AM EST Temperature 36.2 ??C (97.2 ??F) 05/24/2024 9:07 AM ED T Respiratory Rate 16 05/24/2024 11:00 AM EDT Oxygen Saturation 99% 05/24/2024 11:00 AM EDT Inhaled Oxygen Concentration - - Weight 68.5 kg (151 lb) 07/27/2024 10:01 AM EST Height 154.9 cm (5' 1) 07/27/2024 10:01 AM EST Body Mass Index 28.53 07/27/2024 10:01 AM EST Plan of Treatment Upcoming Encounters Date Type Department Care Team (Late st Contact Info) Description 08/23/2024 3:30 PM EST TH Visit (TeleHealth) Endocrinology at [facility] [place] [address] [facility] [place] [address] Health Maintenance Due Date Last Done Comments CT Colonography 1974 FIT DNA 1974 FIT 1974 Sigmoidoscopy 1974 Tetanus/Diphtheria/Pertussis Vaccines (6 - Tdap) 1985 05/17/1982, 12/15/1975, 04/15/1975, Additional history exists HIV screen 1992 Hepatitis C Screening 1992 Hepatitis B vaccine (0-59 yr s) (1) 1993 Breast Cancer Share Decision Needed 2014 HPV test 10/01/2022 10/01/2017 PAP Smear 10/01/2022 10/01/2017 Covid-19 Vaccine (1 - 2023-2 5 season) 2024 Influenza (Flu) vaccine (1 o f 1 - Influenza standard series) 05/16/2024 Zoster vaccine (1 of 2) 2024 Breast Cancer screening 12/20/2024 12/20/2022 Diabetes Screening (HgbA1C o r Glucose) 03/01/2027 03/01/2024, 09/02/2023, 09/02/2023, Additional history exists Colonoscopy 05/24/2034 05/24/2024, 05/24/2024 Colorectal Cancer Screening 05/24/2034 Sigmoidoscopy (10 year) with FIT yearly 05/24/2034 05/24/2024, 05/24/2024 Lipid Screening Discontinued 09/02/2023, 02/0 03/2023, 01/02/2021 Procedures Procedure Name Priority Date/Time Associated Diagnosis Comments CT ENTEROGRAPHY Routine 06/15/2024 3:10 PM EDT Altered bowel function Lower abdominal pain SURGICAL PATHOLOGY Routine 05/24/2024 9: 57 AM EDT Colonoscopy, Biopsy ([id number]) 05/24/2024 9:46 AM EDT Altered bowel function Bloating Gastroesophageal reflux disease, unspecified whether esophagitis present Esophageal dysphagia Nausea without vomiting Lower abdominal pain Upper Gi Endoscopy, Biopsy ([id number]) 05/24/2024 9:46 AM EDT Altered bowel function Bloating Gastroesophageal reflux disease, unspecified whether esophagitis present Esophageal dysphagia Nausea without vomiting Lower abdominal pain UPPER GI ENDOSCOPY Routine 05/24/2024 9: 43 AM EDT COLONOSCOPY Routine 05/24/2024 9:35 AM EDT COMPREHENSIVE METABOLIC PANEL Routine 03/01/2024 3:28 PM EDT Vitamin D deficient osteomalacia LIPID PANEL (REFLEX DIRECT LDL) Routine 09/02/2023 4:55 PM EST S/P partial gastrectomy MAMMO DIAGNOSTIC CAD AND DUTCH BILATERAL Routine 12/20/2022 9:28 AM EDT Abnormal finding on breast imaging HPV Routine 10/01/2017 12:00 PM EST DAMAGE APPRAISER CYTOLOGY FINAL REPORT Routine 10/01/2017 12:00 PM EST from Last 3 Months or Most Recently Relevant to Health Maintenance Results * CT Enterography (06/15/2024 3:10 PM EDT) WORKSTATION ID [id number] DH RAD Anatomical Region Laterality Modality Chest, Abdomen [...] who have questions please contact the health healthcare administration intern that requested your imaging first. ? Electronically signed by: Anabel Wolf MD, [facility] ([phone]), at 06/16/2024 12:54 PM Narrative 06/16/2024 12:54 [...] patients who have questions please contactthe health healthcare administration intern that requested your imaging first. Alena Pizarro TELEPHONE RECORDER IMG CT ORDERABLES * Surgical Pathology (05/24/2024 9:57 AM EDT) Case Report Surgical Pathology Report ? Case: [id number] ? Authorizing Provider: ??Carolyn Lopez MD ?Collected: ? 05/24/2024 0957 ? Ordering Location: ? Gastroenterology at [facility] ?? Received: ?05/24/2024 1229 ? Pathologist: ? Stefani Roberts MD ? Specimens: ?? A) - Esophagus, Distal ? B) - Esophagus, Mid ? C) - Colon, nontargeted ? 05/27/2024 1:40 PM EDT [facility] Final Diagnosis A. Esophagus, Distal, Biopsy: Esophageal squamous mucosa within normal limits. B. Esophagus, Mid, Biopsy: Esophageal squamous mucosa within normal limits. C. Colon, nontargeted Biopsy: Colonic mucosa within normal limits. 05/27/2024 1:40 PM EDT [facility] Clinical Information A. Esophagus, Distal, Rule out eosinophilic esophagitis Dysphagia B. Esophagus, Mid, Rule out eosinophilic esophagitis Dysphagia C. Colon, nontargeted Rule out microscopic colitis Diarrhea 05/27/2024 1:40 PM EDT [facility] Gross Description A. Esophagus, Distal, [...] labeled C1-C3. 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 Sidra Cohen: diarrhea, watery, please take biopsies for microscopic coltiis Tissue specimen (specimen) ESOPHAGEAL STRUCTURE / Unknown 05/24/2024 10:00 AM EDT 05/24/2024 12:29 PM EDT Comment:Pre-op diagnosis: EGD hx of barretts, hx of anjel fund, esophageal dypshagia custodial- please take biopsies for EoE, ongoing GERD on BID PPI, wants a second opion EGD- last one done by Dr. Sidra Cohen: diarrhea, watery, please take biopsies for microscopic coltiis Tissue specimen (specimen) COLON STRUCTURE / Unknown 05/24/2024 10:15 AM EDT 05/24/2024 12:29 PM EDT Comment:Pre-op diagnosis: EGD hx of barretts, hx of anjel fund, esophageal dypshagia custodial- please take biopsies for EoE, ongoing GERD on BID PPI, wants a second opion EGD- last one done by Dr. Sidra Cohen: diarrhea, watery, please take biopsies for microscopic coltiis Carolyn Lopez MD PATHOLOGY/CYTOLOGY O RDERABLES [facility] [place] [address] * UPPER GI ENDOSCOPY (05/24/2024 9:43 AM EDT) UPPER GI ENDOSCOPY [facility] Endoscopy Procedure Date: 05/24/2024 9:43 AM ? Patient Name: Mora Bolanos ? Date of : 1975 ? Age: 48 ? Order #: [id number] ? Instrument Name: [id number] ? Procedure: ? Upper GI endoscopy Indications: ? Dysphagia Patient Profile: ? 48F s/p Analia-en-Y with dysphagia Providers: ? Eamon Mccormack, CHELO, ? Symone Queen, Ui Architect Referring MD: ?Senait Rico Medicines: ? Benzocaine [...] PROVATION 05/24/2024 9:43 AM EDT Senait Rico TELEPHONE RECORDER GENERAL SURGICAL O RDERABLES PROVATION * COLONOSCOPY (05/24/2024 9:35 AM EDT) COLONOSCOPY [facility] Endoscopy Procedure Date: 05/24/2024 9:35 AM ? Patient Name: Mora Bolanos ? Date of : 1975 ? Age: 48 ? Order #: [id number] ? Instrument Name: [id number] ? Procedure: ? Colonoscopy Indications: ? Clinically significant diarrhea of ? unexplained origin Patient Profile: ? 48F with diarrhea Providers: ? Eamon Mccormack, CHELO, ? Symone Queen, Ui Architect Referring MD: ?Senait Rico Medicines: ? EGD [...] preparation was evaluated ? using the BBPS ([place] Bowel ? Preparation Scale) with scores of: [...] Goodman DNP GENERAL SURGICAL OR DERABLES PROVATION * (ABNORMAL) Comprehensive metabolic panel (non-fasting) (03/01/2024 3:28 PM EDT) Glucose 91 65 - 199 mg/dL [facility] Comment:Diabetes: >=200 mg/d L plus symptoms Blood Urea Nitrogen 6(L) 8 - 18 mg/dL [facility] Creatinine 0.78 0.70 - 1.20 mg/dL [facility] Sodium 143 135 - 145 mmol/L [facility] Potassium 4.2 3.5 - 5.0 mmol/L [facility] Comment: Please note: ??Patients with WBC >100,000 may have falsely elevated Potassium levels. ??For accurate Potassium quantification in these patients send serum separator tube (gold top) for subsequent determinations. ??Contact the Clinical Chemistry Laboratory if there are any questions. Chloride 104 98 - 107 mmol/L [facility] Carbon Dioxide 28 22 - 31 mmol/L [facility] Anion Gap 11 5 - 15 mmol/L [facility] Calcium 9.3 8.5 - 10.5 mg/dL [facility] Protein, Total 6.6 6.1 - 8.0 g/dL [facility] Albumin 4.1 3.2 - 5.2 g/dL [facility] Aspartate Aminotransferase 25 0 - 30 unit/L [facility] Alanine Aminotransferase 23 0 - 30 unit/L [facility] Alkaline Phosphatase 111(H) 35 - 105 unit/L [facility] Bilirubin, Total 0.3 0.2 - 1.3 mg/dL [facility] Est Glomerular Filtration Rate 93 >=60 mL/min/1. 73 m?? [facility] Comment: This patient's estimated GFR [...] In Lab Piotr Carolina MD CHEMISTRY ORDERABLES [facility] [place] [address] * Lipid Panel (Reflex Direct LDL) (09/02/2023 4:55 PM EST) [facility] Cholesterol, Total 202 mg/dL [facility] Comment: Lower Risk: <200 mg/dL Average Risk: 200-239 mg/dL Higher Risk: >ga=818 mg/dL Triglyceride 70 mg/dL [facility] Comment: Average Risk/Lower Risk: <150 mg/dL Borderline High Risk: 150-199 mg/dL High Risk: 200-499 mg/dL Very High Risk: >ho=672 mg/dL HDL Cholesterol 73 mg/dL [facility] Comment: Males: ?? Higher Risk: <40 mg/dL Females: ?? Higher Risk: <50 mg/dL LDL Cholesterol 115 mg/dL [facility] Comment: Lowest Risk: <100 mg/dL Lower Risk: 100-129 mg/dL Borderline High Risk: 130-159 mg/dL High Risk: 160-189 mg/dL Very High Risk: >ud=409 mg/dL Cholesterol/HDL Ratio 2.8 ratio [facility] Lipid Interpretation See Note [facility] Comment: Lipid management should be guided by a patient? s ASCVD risk, goals and preferences. ACC/AHA Guidelines recommend high intensity statin if clinical ASCVD or LDL greater than or equal to 190 mg/dL. http://Oversi.com/QFQ-FWY-Gwyxeczzr Adults aged 40-75 with LDL 70-189 mg/dL should have their 10 year ASCVD risk estimated with the ACC/AHA ASCVD risk class b truck driver http://tools.acc.org/HXWZC-Ifkc-Dqpqxqyzk/ Statin should be discussed if risk greater [...] In Lab Sheridan Cassidy MD CHEMISTRY ORDERABLES [facility] [place] [address] * Mammo Diagnostic CAD and Dutch Bilateral [...] who have questions please contact the health healthcare administration intern that requested your imaging first. ? Narrative [...] (10/01/2017 12:00 PM EST) HPV16 NEGATIVE NEGATIVE [facility] HPV 18 NEGATIVE NEGATIVE [facility] HPV Other HR NEGATIVE NEGATIVE [facility] HPV Interpretation See Comment [facility] Comment: NEGATIVE for high-risk HPV *. [...] WKS Laura Ross APRN PATHOLOGY/CYTOLOGY O RDERABLES [facility] [place] [address] * Leveling Machine Operator Cytology Final Report (10/01/2017 12:00 PM EST) Leveling Machine Operator Cytology Final Report [id number] ? Location: [facility] The signing pathologist has (i) examined the relevant preparation(s) for the specimen(s) and (ii) rendered or confirmed the diagnosis(es). . ? Leveling Machine Operator Final DIAGNOSIS Normal Negative for Intraepithelial Lesion or Malignancy (NILM). For consensus guidelines for the management of cervical cancer screening test results, please see: ?? http://www.asccp.o rg . Electronically signed by: ??Cari CARRIZALES(ASCP)Amalia Verified: ??10/14/2017 ?Area Coordinator Performed at: ??-[facility] Dept. of Pathology, [place], [place] HPV RESULTS HPV16 (Result) ?Negative HPV18 [...] Clinical Genomics [employer] (CGAT) at [facility]. ? - Tomasz Whitehead, PhD, [facility], Director-CGAT STATEMENT OF ADEQUACY Specimen submitted is satisfactory. Vaginal Only. CLINICAL INFORMATION HPV Option: ? Concurrent HPV Preparation: ?Liquid Based Pap Specimen Source: ?Vaginal Only/LBP LMP: ?Hyst Hormones?: ?No Hysterectomy?: ?Yes ?: ?No ?: ?No I.U.D.?: ?No Pelvic Radiation: ? No Prior DAMAGE APPRAISER Therapy?: ? No Hist Abnl Pap/Biopsy?: ??Yes Hist of HPV Vaccine?: ?? No Hist of Smoking?: ? No Hist of SANDRA exposure?: ??No Clinical Data, Significant Therapy and Clinical Impression ?? : ?? _ Referring Identifier: ?(not provided) . CLINICAL INFORMATION This Pap Test has been evaluated with the assistance of the Efficient Cloud[employer] Pap Test Imaging System. Note: The Pap test is a screening test for cervical cancer with an inherent false-negative rate dependent upon several variables. For further information please contact the [facility] Laboratory. Reference: Rosemary YE. Cv/Cvn Cv Tsc System Operator of Pap Smear Results. In: Dane BS, Jeferson HH, ed. ??The Pap Smear. [place]: Rolando, 2002: 71-77. [facility] 10/01/2017 12:0 0 PM EST Narrative Resulting Agency Comment Spec In Lab / WKS Laura Ross TELEPHONE RECORDER PATHOLOGY/CYTOLOGY O RDERABLES [facility] [place] [address] from Last 3 Months or Most Recently [...] is based on Patients wishes. Care Teams Salary And Wage Administrator Relationship Specialty Start Date End Date Mike Goodman DNP [address] [place] [address] PCP - General Family Medicine 08/22/22
--- OUTSIDE RECORDS SUMMARY | 2024-08-15 12:07 | XMS_ITS | Encounter Summary ---
Author [facility] [place] [address] Care Team Providers Care Stablehand Name Role Phone Mike Goodman DNP Primary Care Provider [phone] Encounter Details Date Type Department Care Team (Late st Contact Info) Description 06/02/2024 Telephone [place] [address] Michael Sorensen Social History Tobacco Use Types Packs/Day Years Used Date Smoking Tobacco: Former Cigarettes Q uit: 12/03/2003 Smokeless Tobacco: Never Alcohol Use Standard Drinks/Week Comments No 0 (1 standard drink = 0.6 oz pur e alcohol) [facility] Utilities Answer Date Recorded In the [...] calls can be handled by: Motility Lab Nurse General Duty documented in this encounter Plan of Treatment Upcoming Encounters Date Type Department Care Team (Late st Contact Info) Description 08/23/2024 3:30 PM EST TH Visit (TeleHealth) [place] [address] Roxana Webb MD [facility] [place] [address] documented as of this encounter Visit Diagnoses Not on filedocumented in this encounter Care Teams Stablehand Relationship Specialty Start Date End Date Mike Goodman DNP [address] [place] [address] PCP - General Family Medicine 08/22/22 documented as of this encounter
--- OUTSIDE RECORDS SUMMARY | 2024-08-15 12:07 | XMS_ITS | Encounter Summary ---
[place] [address] Care Team Providers Care Loan Adviser Name Role Phone Mike Goodman KYLE Primary Care Provider [phone] Reason for Referral * Consultation (Routine) - Authorized Specialty Diagnoses / Procedures Referred By Martha broussard Referred To Contact [facility] Diagnoses Lower abdominal pain Alena Pizarro [place] [address] [facility] [place] [address] Referral ID Status Reason Start Date Expiration Date Visits Requested Visits Authorized [id number] Authorized Consult, Test & Treat 07/27/2024 07/27/2025 1 1 Encounter Details Date Type Department Care Team (Late st Contact Info) Description 07/27/2024 Telephone [place] [address] Alena Pizarro [place] [address] Social History Tobacco Use Types Packs/Day Years [...] encounter Miscellaneous Notes * Telephone Encounter - Alena Pizarro, DOCK COORDINATOR - 07/27/2024 4:53 PM EST Telephone call to who reports a horrible experience today in vascular. Patient is concerned as she has vascular history in the family, has ongoing pains, and had mild stenosis on her CT. Patient felt like she was not heard today, and she has not been 1 to seek medication for pain. Patient started to feel hopeless and like there was not much other options, and canceled remaining appointments. Patient has spoke with our patient advocate today. Patient has reached out to patient relations. Patient is cooperative and agreeable to get upper GI series. Will discuss the case further with Dr. Valente. And will refer patient to pain clinic to see if they have any other options. Will follow-up with patient after. Alena Pizarro APRN documented in this encounter Plan of Treatment Upcoming Encounters Date Type Department Care Team (Late st Contact Info) Description 08/23/2024 3:30 PM EST TH Visit (TeleHealth) [place] [address] Roxana Webb MD [facility] [place] [address] Scheduled Referrals Name Type Priority Associated Diagnoses Order Schedule Referral to Pain Management Outpatient Referral Routine Lower abdominal pain Ordered: 07/27/2024 documented as of this encounter Visit Diagnoses Diagnosis Lower abdominal pain Abdominal pain, other specified site documented in this encounter Care Teams Loan Adviser Relationship Specialty Start Date End Date Mike Goodman DNP [address] [place] [address] PCP - General Family Medicine 08/22/22 documented as of this encounter
--- OUTSIDE RECORDS SUMMARY | 2024-08-15 12:07 | XMS_ITS | Encounter Summary ---
Author Organization [facility] Address [facility] [place] [address] Care Team Providers Care Steamtable Worker Name Role Phone Mike Goodman DNP Primary Care Provider [phone] Encounter Details Date Type Department Care Team (Latest Contact Info) Description 04/27/2024 Travel Social History Tobacco Use Types Packs/Day Years Used Date Smoking Tobacco: Former Cigarettes Q uit: 12/03/2003 Smokeless Tobacco: Never Alcohol Use Standard Drinks/Week Comments No 0 (1 standard drink = 0.6 oz pur e alcohol) [facility] Utilities Answer Date Recorded In [...] PM EST TH Visit (TeleHealth) [place] [address] Roxana Webb MD [facility] [place] [address] documented as of this encounter Visit Diagnoses Not on filedocumented in this encounter Care Teams Steamtable Worker Relationship Specialty Start Date End Date Mike Goodman DNP [address] [place] [address] PCP - General Family Medicine 08/22/22 documented as of this encounter
--- OUTSIDE RECORDS SUMMARY | 2024-08-15 12:07 | XMS_ITS | Encounter Summary ---
Author Organization [facility] [place] [address] Care Team Providers Care Marketing Automation Manager Name Role Phone Mike Goodman DNP Primary Care Provider [phone] Encounter Details Date Type Department Care Team (Late st Contact Info) Description 07/27/2024 Orders Only [place] [address] [place] [address] Social History Tobacco Use Types Packs/Day Years Used Date Smoking Tobacco: Former Cigarettes Q uit: 12/03/2003 Smokeless Tobacco: Never Alcohol Use Standard Drinks/Week Comments No 0 (1 standard drink = 0.6 oz pur e alcohol) [facility] Utilities Answer Date Recorded In the past 12 months has [employer], gas, oil, or water [employer] threatened to shut off services in your [...] place to sleep or slept in a care home (including now)? No 10/16/2023 IPV Inpatient [...] PM EST TH Visit (TeleHealth) [place] [address] Roxana Webb MD [facility] [place] [address] documented as of this encounter Visit Diagnoses Not on filedocumented in this encounter Care Teams Marketing Automation Manager Relationship Specialty Start Date End Date Mike Goodman DNP [address] [place] [address] PCP - General Family Medicine 08/22/22 documented as of this encounter
--- OUTSIDE RECORDS SUMMARY | 2024-08-15 12:07 | XMS_ITS | Encounter Summary ---
Author Organization [facility] Address [facility] [place] [address] Care Team Providers Care Compensation And Hris Analyst Name Role Phone Mike Goodman DNP Primary Care Provider [phone]- [phone] Encounter Details Date Type Department Care Team (Late st Contact Info) Description 04/28/2024 Telephone [place] [phone] Tanner Ngo Social History Tobacco Use Types Packs/Day Years Used Date Smoking Tobacco: Former Cigarettes Q uit: 12/03/2003 Smokeless Tobacco: Never Alcohol Use Standard Drinks/Week Comments No 0 (1 standard drink = 0.6 oz pur e alcohol) [facility] Utilities Answer Date Recorded In [...] No 10/16/2023 Housing Stability Vital Sign Answer Iwl e Recorded In the last 12 months, [...] place to sleep or slept in a long-term (including now)? No 10/16/2023 IPV Inpatient Questions [...] - 04/28/2024 4:22 PM EDT Mora Bolanos [id number] Diagnosis/Indication: EGD hx of barretts, hx of anjel fund, esophageal dypshagia longterm- pleasetake biopsies for EoE, ongoing GERD on [...] before? Yes: Date egd DH 07/16/23, colo [place] 3 years ago If yes, did you [...] procedure? No You must have a responsible alliance party who will drive you to your procedure, stay on campus for the entire duration of your procedure, and drive you home from your procedure. Who will likely be your steam train driver for the procedure? *Please Verify the [...] PM EST TH Visit (TeleHealth) [place] [address] Roxana Webb MD [facility] [place] [address] documented as of this encounter Visit Diagnoses Not on filedocumented in this encounter Care Teams Compensation And Hris Analyst Relationship Specialty Start Date End Date Mike Goodman DNP [address] [place] [address] PCP - General Family Medicine 08/22/22 documented as of this encounter
--- OUTSIDE RECORDS SUMMARY | 2024-08-15 12:07 | XMS_ITS | Encounter Summary ---
Author Organization [facility] Address [facility] [place] [address] Care Team Providers Care Middle School History Teacher Name Role Phone Mike Goodman DNP Primary Care Provider [phone]- [phone] Encounter Details Date Type Department Care Team (Late st Contact Info) Description 07/22/2024 Telephone [place] [phone] Mirna Wray Social History Tobacco Use Types Packs/Day Years [...] place to sleep or slept in a half-way (including now)? No 10/16/2023 IPV Inpatient Questions [...] encounter Miscellaneous Notes * Telephone Encounter - Mirna Wray - 07/22/2024 12:22 PM EST Mora called today to schedule an appointment. After further investigation it was found that herreferral is supposed to be for a E consult. Sent message to triaging provider for scheduling instruction. documented in this encounter Plan of Treatment Upcoming Encounters Date Type Department Care Team (Late st Contact Info) Description 08/23/2024 3:30 PM EST TH Visit (TeleHealth) [place] [address] Roxana Webb MD [facility] [place] [address] documented as of this encounter Visit Diagnoses Not on filedocumented in this encounter Care Teams Middle School History Teacher Relationship Specialty Start Date End Date Mike Goodman DNP [address] [place] [address] PCP - General Family Medicine 08/22/22 documented as of this encounter
--- OUTSIDE RECORDS SUMMARY | 2024-08-15 12:07 | XMS_ITS | Encounter Summary ---
Author Organization [facility] [place] [address] Care Team Providers Care Fence Repairman Name Role Phone Mike Goodman DNP Primary Care Provider Reason for Visit * Auth/Cert (Routine) Specialty Diagnoses / Procedures Referred By Martha broussard Referred To Contact Diagnoses Altered bowel function Bloating Gastroesophageal reflux disease, unspecified whether esophagitis present Esophageal dysphagia Nausea without vomiting Lower abdominal pain EGD hx of barretts, hx of anjel fund, esophageal dypshagia mcfp- please take biopsies for EoE, ongoing GERD [...] COLONOSCOPY, DIAGNOSTIC (WRVU 3.26) Carolyn Lopez MD [facility] [place] [address] [facility] Referral ID Status Reason Start Date Expiration Date Visits Re quested Visits Authorized [id number] 1 1 Encounter Details Date Type Department Care Team (Latest Contact Info) Description 05/24/2024 8:44 AM EDT - 05/24/2024 11:30 AM EDT Hospital Encounter [place] [address] Carolyn Lopez MD [facility] [place] [address] Discharge Disposition: Home Social History Tobacco Use Types Packs/Day Years Used Date Smoking Tobacco: Former Cigarettes Q uit: 12/03/2003 Smokeless Tobacco: Never Alcohol Use Standard Drinks/Week Comments No 0 (1 standard drink = 0.6 oz pur e alcohol) [facility] Utilities Answer Date Recorded In [...] the day after the test, use an clnk-oaf-lhfnqtz spray or lozenges to numbyour throat. Warm [...] occurs, please contact your doctor. Please call [phone] before 8pm Mon-Fri with problems, questions, or concerns. If you call after 8pm or on weekends, call the Hospital at [phone] and ask for the Molding Room Supervisor diamond selector and the barrel dedenting machine operator will contact that person for [...] more? You can view health information on [employer], your personal patient account. Log in or sign up today. Content Version: 12.2 ?? 0412-2307 [employer]. Care instructions adapted under license by [email or web address]. If you have questions about a medical condition or this instruction, always ask your healthcare professional. [employer] disclaims any warranty or liability for your [...] of this encounter Progress Notes * Niraj Kearns, RN - 05/24/2024 11:36 AM EDT Patient [...] 1 to call GAS Nurse back at [phone] 05/24/24 0930 EGD/[place] [facility] IVCS Arrival Time: 829 Past Medical [...] PM EST TH Visit (TeleHealth) [place] [address] Roxana Webb MD [facility] [place] [address] documented as of this encounter Procedures Procedure Name Priority Date/Time Associated Diagnosis Comments SURGICAL PATHOLOGY Routine 05/24/2024 9: 57 AM EDT Colonoscopy, Biopsy (91730) 05/24/2024 9:46 AM EDT Altered bowel function Bloating Gastroesophageal reflux disease, unspecified whether esophagitis present Esophageal dysphagia Nausea without vomiting Lower abdominal pain Upper Gi Endoscopy, Biopsy ([id number]) 05/24/2024 9:46 AM EDT Altered bowel function Bloating Gastroesophageal reflux disease, unspecified whether esophagitis present Esophageal dysphagia Nausea without vomiting Lower abdominal pain UPPER GI ENDOSCOPY Routine 05/24/2024 9: 43 AM EDT COLONOSCOPY Routine 05/24/2024 9:35 AM EDT documented in this encounter Results * Surgical Pathology (05/24/2024 9:57 AM EDT) Case Report Surgical Pathology Report ? Case: [id number] ? Authorizing Provider: ??Carolyn Lopez MD ?Collected: ? 05/24/2024 0957 ? [place]ing [place]: ? [place] [facility] [place] Received: ?05/24/2024 1229 ? Pathologist: ? Stefani Roberts MD ? Specimens: ?? A) - Esophagus, Distal ? B) - Esophagus, Mid ? C) - Colon, nontargeted ? 05/27/2024 1:[address] [facility] Final Diagnosis A. Esophagus, Distal, Biopsy: Esophageal squamous mucosa within normal limits. B. Esophagus, Mid, Biopsy: Esophageal squamous mucosa within normal limits. C. Colon, nontargeted Biopsy: Colonic mucosa within normal limits. 05/27/2024 1:[address] [facility] Clinical Information A. Esophagus, Distal, Rule out eosinophilic esophagitis Dysphagia B. Esophagus, Mid, Rule out eosinophilic esophagitis Dysphagia C. Colon, nontargeted Rule out microscopic colitis Diarrhea 05/27/2024 1:[address] [facility] Gross Description A. Esophagus, Distal, [...] labeled C1-C3. pps 05/27/2024 1:[address] [facility] Result Note Routine 05/27/2024 1:[address] [facility] Tissue REGION OF ESOPHAGUS / Unknown 05/24/2024 9:57 AM EDT 05/24/2024 12:29 PM EDT Comment:Pre-op diagnosis: EGD hx of barretts, hx of anjel fund, esophageal dypshagia mcfp- please take biopsies for EoE, ongoing GERD on BID PPI, wants a second opion EGD- last one done by Dr. Sidra Cohen: diarrhea, watery, please take biopsies for microscopic coltiis Tissue specimen (specimen) ESOPHAGEAL STRUCTURE / Unknown 05/24/2024 10:00 AM EDT 05/24/2024 12:29 PM EDT Comment:Pre-op diagnosis: EGD hx of barretts, hx of anjel fund, esophageal dypshagia mcfp- please take biopsies for EoE, ongoing GERD on BID PPI, wants a second opion EGD- last one done by Dr. Sidra Cohen: diarrhea, watery, please take biopsies for microscopic coltiis Tissue specimen (specimen) COLON STRUCTURE / Unknown 05/24/2024 10:15 AM EDT 05/24/2024 12:29 PM EDT Comment:Pre-op diagnosis: EGD hx of barretts, hx of anjel fund, esophageal dypshagia mcfp- please take biopsies for EoE, ongoing GERD on BID PPI, wants a second opion EGD- last one done by Dr. Sidra Cohen: diarrhea, watery, please take biopsies for microscopic coltiis Carolyn Lopez MD PATHOLOGY/[place] [address] * UPPER GI ENDOSCOPY (05/24/2024 9:43 AM EDT) UPPER GI ENDOSCOPY [facility] Procedure Date: 05/24/2024 9:43 AM ? Patient Name: Mora Bolanos ? Date of : 1975 ? Age: 48 ? Order #: [id number] ? Instrument Name: [id number]- [id number] ? Procedure: ? Upper GI endoscopy Indications: ? Dysphagia Patient Profile: ? 48F s/p Analia-en-Y with dysphagia Providers: ? Eamon Mccormack, CHELO, ? Symone Queen, Food And Beverage Order Clerk Referring MD: ?Senait E. [place] Medicines: ? Benzocaine spray, Midazolam 3 mg [...] PROVATION 05/24/2024 9:43 AM EDT Senait Rico TOOLROOM CLERK GENERAL SURGICAL O RDERABLES PROVATION * COLONOSCOPY (05/24/2024 9:35 AM EDT) COLONOSCOPY [facility] Procedure Date: 05/24/2024 9:35 AM ? Patient Name: Mora Bolanos ? Date of : 1975 ? Age: 48 ? Order #: [id number] ? Instrument Name: [id number]- [id number] ? Procedure: ? Colonoscopy Indications: ? Clinically significant diarrhea of ? unexplained origin Patient Profile: ? 48F with diarrhea Providers: ? Eamon Mccormack RN, ? Symone Queen, Food And Beverage Order Clerk Referring MD: ?Senait Rico Medicines: ? EGD [...] preparation was evaluated ? using the BBPS ([place] Bowel ? Preparation Scale) with scores of: [...] the entire procedure. ? Carolyn Lopez MD Craolyn Lopez, 05/24/2024 10:24:04 AM Number of Addenda: [...] RN) documented in this encounter Care Teams Fence Repairman Relationship Specialty Start Date End Date Mike Godoman DNP [address] [place] [address] PCP - General Family Medicine 08/22/22 documented as of this encounter
--- OUTSIDE RECORDS SUMMARY | 2024-08-15 12:08 | XMS_ITS | Encounter Summary ---
Author Organization [facility] Address [facility] [place] [address] Care Team Providers Care Branch Sales Manager Name Role Phone Mike Goodman KYLE Primary Care Provider [phone]- [phone] Reason for Visit * Reason Comments IV Medication * Treatment/Therapy Plan Authorization (Routine) - Pending Review Specialty Diagnoses / Procedures Referred By Martha t Referred To Contact Hematology and Oncology Diagnoses Iron deficiency anemia due to chronic blood loss Procedures TC FERRIC DERISOMALTOSE, 10 MG, INJ Ferric Derisomaltose (Monoferric) Infusion ([facility], [place], LUZMA, NDP, [facility], [facility]) Iron Deficiency Anemia - Leobardo Ricci MD [facility] [place] [address] Stj Hem Onc Infusion [address] [place] [phone] Referral ID Status Reason Start Date Expiration Date V isits Requested Visits Authorized [id number] Pending Review 10/16/2023 10/15/2024 1 100 Encounter Details Date Type Department Care Team (Late st Contact Info) Description 10/16/2023 11:45 AM EST Infusion Hematology Oncology at [address] [address] Iron deficiency anemia due to chronic blood loss Social History Tobacco Use Types Packs/Day Years Used Date Smoking Tobacco: Former Cigarettes Q uit: 12/03/2003 Smokeless Tobacco: Never Alcohol Use Standard Drinks/Week Comments No 0 (1 standard drink = 0.6 oz pur e alcohol) [facility] Utilities Answer Date Recorded In [...] in a half-way (including now)? No 10/16/2023 DH IPV Inpatient [...] PM EST TH Visit (TeleHealth) [place] [address] Roxana Webb MD [facility] [place] [address] documented as of this encounter Visit Diagnoses [...] than multiple, This agent is restricted to outpatient use. Is this drug being given as an outpatient? Yes New Bag 10/16/2023 12:21 PM EST 1,000 mg 330 mL/hr documented in this encounter Care Teams Branch Sales Manager Relationship Specialty Start Date End Date Mike Goodman DNP [address] [place] [address] PCP - General Family Medicine 08/22/22 documented as of this encounter
--- OUTSIDE RECORDS SUMMARY | 2024-08-15 12:08 | XMS_ITS | Encounter Summary ---
Author Organization [facility] [place] [address] Care Team Providers Care Sexual Assault Response Coordinator Name Role Phone Mike Goodman DNP Primary Care Provider Encounter Details Date Type Department Care Team (Latest Contact Info) Description 10/01/2023 2:03 PM EST - 10/01/2023 11:59 PM EST Hospital Encounter [place]ology [place] [address] Family history of malignant neoplasm of breast; Family history of malignant neoplasm of ovary Discharge Disposition: Home Social History Tobacco Use Types Packs/Day Years Used Date Smoking Tobacco: Former Cigarettes Q uit: 12/03/2003 Smokeless Tobacco: Never Alcohol Use Standard Drinks/Week Comments No 0 (1 standard drink = 0.6 oz pur e alcohol) [facility] Inpatient Questions Answer Date Recorded Does [...] muscle as needed (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 01/11/2011 calcium carbonate (Tums) 200 mg calcium (500 mg) Tablet, Chewable Take 1 tablet by mouth as needed for Heartburn. 05/03/2024 Calcium Carbonate-Mag Hydroxid (Rolaids) 550-110 mg Tablet, Chewable Take 1 tablet by mouth as needed. 05/03/2024 oxyCODONE (Roxicodone) 5 mg tablet Take 1 tablet by mouth every 4 hours as needed for Pain. 5 tablet 07/16/2023 10/16/2023 ferrous sulfate (FeroSul) 325 mg (65 mg iron) tablet Take 325 mg by mouth 2 times daily. 03/11/2023 12/05/2023 acetaminophen (Tylenol) 325 mg tablet Take 650 mg by mouth every 4 hours as needed for Pain. 05/21/2024 documented as of this encounter Plan of Treatment Upcoming Encounters Date Type Department Care Team (Late st Contact Info) Description 08/23/2024 3:30 PM EST TH Visit (TeleHealth) [place] [address] Roxana Webb MD [facility] [place] [address] documented as of this encounter Procedures Procedure Name Priority Date/Time Associated Diagnosis Comments HC VENIPUNCTURE Routine 10/01/2023 2:12 PM EST Family history of malignant neoplasm of breast Family history of malignant neoplasm of ovary documented in this encounter Results * Research Venipuncture (10/01/2023 2:12 PM EST) Research Venipuncture Drawn [facility] Blood 10/01/2023 2:12 PM EST 10/01/2023 2:35 PM EST Narrative Resulting Agency Comment Spec In Lab Amalia Pendleton IN SERVICE EDUCATION TEACHER CHEMISTRY ORDERABLE S [facility] [address] documented in this encounter Visit Diagnoses Diagnosis Family history of malignant neoplasm of breast Family history of malignant neoplasm of ovary documented in this encounter Care Teams Sexual Assault Response Coordinator Relationship Specialty Start Date End Date Mike Goodman DNP [address] [place] [address] PCP - General Family Medicine 08/22/22 documented as of this encounter
--- OUTSIDE RECORDS SUMMARY | 2024-08-15 12:08 | XMS_ITS | Encounter Summary ---
Author Organization [facility] Address [facility] [place] [address] Care Team Providers Care Shock Absorption Floor Layer Name Role Phone Mike Goodman DNP Primary Care Provider +1 [phone] Encounter Details Date Type Department Care Team [...] PM EST TH Visit (TeleHealth) [place] [address] Roxana Webb MD [facility] [address] documented as of this encounter Visit Diagnoses Not on filedocumented in this encounter Care Teams Shock Absorption Floor Layer Relationship Specialty Start Date End Date Mike Goodman DNP [address] [place] [address] PCP - General Family Medicine 08/22/22 documented as of this encounter
--- OUTSIDE RECORDS SUMMARY | 2024-08-15 12:08 | XMS_ITS | Encounter Summary ---
Author Organization [facility] Address [facility] [place] [address] Care Team Providers Care Thread Reeler Name Role Phone Mike Goodman DNP Primary Care Provider +1 [phone] Encounter Details Date Type Department Care Team [...] PM EST TH Visit (TeleHealth) [place] [address] Roxana Webb MD [facility] [place] [address] documented as of this encounter Visit Diagnoses Not on filedocumented in this encounter Care Teams Thread Reeler Relationship Specialty Start Date End Date Mike Goodman DNP [address] [place] [address] PCP - General Family Medicine 08/22/22 documented as of this encounter
--- OUTSIDE RECORDS SUMMARY | 2024-08-15 12:08 | XMS_ITS | Encounter Summary ---
Author Organization [facility] Address [facility] [place] [address] Care Team Providers Care Supervisor Polishing Name Role Phone Mike Goodman DNP Primary Care Provider +1- [phone] Encounter Details Date Type Department Care Team (Latest Contact Info) Description 03/04/2024 Travel Social History Tobacco Use Types Packs/Day Years Used Date Smoking Tobacco: Former Cigarettes Q uit: 12/03/2003 Smokeless Tobacco: Never Alcohol Use Standard Drinks/Week Comments No 0 (1 standard drink = 0.6 oz pur e alcohol) [facility] Utilities Answer Date Recorded In the past [...] in a retirement (including now)? No 10/16/2023 IPV Inpatient Questions [...] PM EST TH Visit (TeleHealth) [place] [address] Roxana Webb MD [facility] [place] [address] documented as of this encounter Visit Diagnoses Not on filedocumented in this encounter Care Teams Supervisor Polishing Relationship Specialty Start Date End Date Mike Goodman DNP [address] [place] [address] PCP - General Family Medicine 08/22/22 documented as of this encounter
--- OUTSIDE RECORDS SUMMARY | 2024-08-15 12:08 | XMS_ITS | Encounter Summary ---
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 Not present ?Test Performed by: ?[facility] ?[address] [place] [address] ?[place]: Didier Botello M.D. Ph.D.; CLIA# [id number]) [facility] Blood Venous Draw / Unknown 10/01/2023 3:56 PM EST 10/02/2023 3:29 PM EST Narrative Resulting Agency Comment Spec In Lab Piotr Carolina MD LAB SEND OUT ORDERAB LES Performing Organization Address City/[facility] Co de Phone Number [facility] [place] [address] * Calcium (10/01/2023 3:56 PM EST) Calcium 9.8 8.5 - 10.5 mg/dL [facility] Blood 10/01/2023 3:56 PM EST 10/01/2023 4:07 PM EST Narrative Resulting Agency Comment Spec In Lab Piotr Carolina MD CHEMISTRY ORDERABLES Performing Organization Address [facility] Co de Phone Number [facility] [place] [address] * Phosphorus (10/01/2023 3:56 PM EST) Phosphorus 3.4 2.5 - 4.5 mg/dL [facility] Blood 10/01/2023 3:56 PM EST 10/01/2023 4:07 PM EST Narrative Resulting Agency Comment Spec In Lab Piotr Carolina MD CHEMISTRY ORDERABLES Performing Organization Address [facility] Co de Phone Number [facility] [place] [address] * (ABNORMAL) PTH (10/01/2023 3:56 PM EST) Parathyroid Hormone 71(H) 15 - 65 pg/mL [facility] Blood 10/01/2023 3:56 PM EST 10/01/2023 4:07 PM EST Narrative Resulting Agency Comment Spec In Lab Piotr Carolina MD CHEMISTRY ORDERABLES [facility] [place] [address] documented in this encounter Visit Diagnoses Diagnosis 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
--- OUTSIDE RECORDS SUMMARY | 2024-08-15 12:08 | XMS_ITS | Encounter Summary ---
[place] [address] Care Team Providers Care Retirement Plan Counselor Name Role Phone Mike Goodman KYLE Primary Care Provider [phone]- [phone] Reason for Referral * Consultation (Routine) - Closed Specialty Diagnoses / Procedures Referred By Contac t Referred To Contact Endocrinology Diagnoses Vitamin D deficiency Senait Rico APRN [facility] [place] [address] [facility] [place] Endocrinology [address] [place] [phone] Referral ID Status Reason Start Date Expiration Date V isits Requested Visits Authorized [id number] Closed Consult, Test & Treat 09/10/2023 09/09/2024 1 1 * Consultation (Routine) - Closed Specialty Diagnoses / Procedures Referred By Contac t Referred To Contact Hematology and Oncology Diagnoses Iron deficiency anemia, unspecified iron deficiency anemia type Senait Rico APRN [facility] [place] [address] [facility] Hem Onc Office [address] [place] [phone] Referral ID Status Reason Start Date Expiration Date V isits Requested Visits Authorized [id number] Closed Consult, Test & Treat 09/10/2023 09/09/2024 1 1 Encounter Details Date Type Department Care Team (Late st Contact Info) Description 09/10/2023 Telephone General Surgery at [facility] [place] [place] [address] Senait Rico APRN [facility] [place] [address] Social History Tobacco Use Types Packs/Day Years [...] PM EST TH Visit (TeleHealth) [place] [address] Roxana Webb MD [facility] [place] [address] Scheduled Referrals Name Type Priority Associated Diagnoses [...] deficiency documented in this encounter Care Teams Retirement Plan Counselor Relationship Specialty Start Date End Date Mike Goodman DNP [address] [place] [address] PCP - General Family Medicine 08/22/22 documented as of this encounter
--- OUTSIDE RECORDS SUMMARY | 2024-08-15 12:08 | XMS_ITS | Encounter Summary ---
Author Organization [facility] Address [facility] [place] [address] Care Team Providers Care Ehs Engineer Name Role Phone Mike Goodman DNP Primary Care Provider [phone] Encounter Details Date Type Department Care Team [...] PM EST TH Visit (TeleHealth) [place] [address] Roxana Webb MD [facility] [place] [address] documented as of this encounter Visit Diagnoses Not on filedocumented in this encounter Care Teams Ehs Engineer Relationship Specialty Start Date End Date Mike Goodman DNP [address] [place] [address] PCP - General Family Medicine 08/22/22 documented as of this encounter
--- OUTSIDE RECORDS SUMMARY | 2024-08-15 12:08 | XMS_ITS | Encounter Summary ---
Author Organization [facility] Address [facility] [place] [address] Care Team Providers Care Vacuum Drier Operator Name Role Phone Mike Goodman DNP Primary Care Provider [phone] Encounter Details Date Type Department Care Team [...] Contact Info) Description 08/23/2024 3:30 PM EST Visit (TeleHealth) [place] [address] Roxana Webb MD [facility] [place] [address] documented as of this encounter Visit Diagnoses Not on filedocumented in this encounter Care Teams Vacuum Drier Operator Relationship Specialty Start Date End Date Mike Goodman DNP [address] [place] [address] PCP - General Family Medicine 08/22/22 documented as of this encounter
--- OUTSIDE RECORDS SUMMARY | 2024-08-15 12:08 | XMS_ITS | Encounter Summary ---
Author Organization [facility] [place] [address] Care Team Providers Care Implementation Project Manager Name Role Phone Mike Goodman DNP Primary Care Provider [phone] Encounter Details Date Type Department Care Team (Late st Contact Info) Description 10/01/2023 Notes Only Hematology [place] [address] Lucy Roberts MD Social History Tobacco Use Types Packs/Day [...] Patient Name: Mora Bolanos : 1975 Mora Kanika Emanueldanielle will be meeting with the genetic counselor(s) of the Familial Cancer Program (P) for genetic testing as per referral placed by their referring provider. Genetic counselor(s) will order appropriate genetic testing based on their assessment and indications for which the patient has been referred to the program. Based on genetic testing results, and within the scope of practice of [facility] genetic counselors, referrals to other providers/departments for recommendations regarding screening/ further management may need to be ordered by genetic counselors, if indicated; and will be communicated with the patients per genetic counselors. Please be advised that I have NOT met with Mora Kanika Emanueldanielle; and that Mora Bolanos may or may NOT have established care with medical oncology. Please be advised that my name may appear as referring provider for referrals s/p genetic testing results, given my relation with [facility]; otherwise I have NOT established care with [...] regarding genetic testing results, please communicate with [facility] genetic counselors. An appointment has been scheduled with [facility] Genetics. Lucy Roberts MD Medical Oncology [facility] First Grade TeacherWebmethods Architect, [facility] [employer] Cancer[facility] [email or web address] [facility] documented in this encounter Plan of Treatment Upcoming Encounters Date Type Department Care Team (Late st Contact Info) Description 08/23/2024 3:30 PM EST TH Visit (TeleHealth) [place] [address] Roxana Webb MD [facility] [place] [address] documented as of this encounter Visit Diagnoses Not on filedocumented in this encounter Care Teams Implementation Project Manager Relationship Specialty Start Date End Date Mike Goodman DNP [address] [place] [address] PCP - General Family Medicine 08/22/22 documented as of this encounter
--- OUTSIDE RECORDS SUMMARY | 2024-08-15 12:08 | XMS_ITS | Encounter Summary ---
Author Organization [facility] [place] [address] Care Team Providers Care Automotive Parts Salesperson Name Role Phone Mike Goodman DNP Primary Care Provider [phone]- [phone] Encounter Details Date Type Department Care Team (Late st Contact Info) Description 10/20/2023 Patient Outreach Hematology [place] [address] Kathy Montoya Social History Tobacco Use Types Packs/Day Years Used Date Smoking Tobacco: Former Cigarettes Q uit: 12/03/2003 Smokeless Tobacco: Never Alcohol Use Standard Drinks/Week Comments No 0 (1 standard drink = 0.6 oz pur e alcohol) [facility] Utilities Answer Date Recorded In [...] in a halfway (including now)? No 10/16/2023 DH IPV Inpatient [...] - 10/20/2023 8:49 AM EST Community Health Refinery Pipeline Operator sent this letter to patient ,due to SDOH+ screen and being seen for non cancer patient visit. Dear Patient, 10/20/2023 Thank you for your recent visit to [facility]. We recognize that many things beyond medical care affect your health and wellbeing. During your recent visit, you completed the Social Determinants of Health questionnaire. Your responses indicate that you would like information about assistance programs and community resources. 211 is a great resource. [place] 211 and [place] 211 offer [place] and [place] residents detailed descriptions about programs and services provided by local community groups. A specially trained Information and Nurse Informatics Educator will guide and assist you. 211 can provide contact information for State resources for: Housing services including homelessness, rental assistance, fuel assistance, utilities and housing expenses Food services including food stamps, finding food, and Meals on Wheels Health related services including health insurance, health care assistance, mental health and COVID-19. Other services including transportation, child care attendant school, aging and senior services, legal assistance, paying bills and much more. Call 211 by dialing 2-1-1 available 24 hours/7 days a week. If you are worried about your safety, call one of the toll-free numbers for your location to get help that is free and confidential: [place] hotline [place] hot[place] hotline [place] hotline Call 911 if you are in immediate danger. You may contact me if you would like a free consult, at your next scheduled appointment at [facility]. Kathy Montoya Community Health Refinery Pipeline Operator Included my contact information documented in this encounter Plan of Treatment Upcoming Encounters Date Type Department Care Team (Late st Contact Info) Description 08/23/2024 3:30 PM EST TH Visit (TeleHealth) [place] [address] Roxana Webb MD [facility] [place] [address] documented as of this encounter Visit Diagnoses Not on filedocumented in this encounter Care Teams Automotive Parts Salesperson Relationship Specialty Start Date End Date Mike Goodman DNP [address] [place] [address] PCP - General Family Medicine 08/22/22 documented as of this encounter
--- OUTSIDE RECORDS SUMMARY | 2024-08-15 12:08 | XMS_ITS | Encounter Summary ---
Author Organization [facility] Address [facility] [place] [address] Care Team Providers Care Box Car Loader Name Role Phone Mike Goodman DNP Primary Care Provider [phone] [phone] Encounter Details Date Type Department Care Team [...] PM EST TH Visit (TeleHealth) [place] [address] [facility] [place] [address] documented as of this encounter Visit Diagnoses Not on filedocumented in this encounter Care Teams Box Car Loader Relationship Specialty Start Date End Date Mike Goodman DNP [address] [place] [address] PCP - General Family Medicine 08/22/22 documented as of this encounter
--- OUTSIDE RECORDS SUMMARY | 2024-08-15 12:08 | XMS_ITS | Encounter Summary ---
Author Organization [facility] Address [facility] [place] [address] Care Team Providers Care Retail Salesperson Name Role Phone Mike Goodman DNP Primary Care Provider [phone]- [phone] Encounter Details Date Type Department Care Team (Late st Contact Info) Description 12/05/2023 3:00 PM EDT TH Visit (TeleHealth) [place] [address] Lisa Grady M, CROWN IRONER [facility] [place] [address] Nedra Ling, RD [facility] [place] [address] Iron deficiency anemia, unspecified iron deficiency anemia type; Vitamin D deficiency; S/P partial gastrectomy Social History Tobacco Use Types Packs/Day Years Used Date Smoking Tobacco: Former Cigarettes Q uit: 12/03/2003 Smokeless Tobacco: Never Alcohol Use Standard Drinks/Week Comments No 0 (1 standard drink = 0.6 oz pur e alcohol) [facility] Utilities Answer Date Recorded In [...] a skilled nursing (including now)? No 10/16/2023 DH IPV Inpatient [...] Patient Instructions * Patient Instructions* Lisa Grady, CROWN IRONER - 12/05/2023 3:00 PM EDT BSP health support specialist Ana Maria [phone] and Lawanda [phone] Dietitians: [phone] Surgeons/ nurse practitioners: [phone] Nurse line: [phone] Dear Mora, Please see your electronic medical record note from today for details we discussed at your visit. Below is some additional general information that you may find helpful. Testing: It would be helpful if you can have your lab work drawn a couple days before your visit uriel [facility] facility so the results are available at the time of your follow up visit. If you have labwork done by your primary manager progressive care before that date, please have a copy sent to the Bariatric Surgery Program. Please call/send my message if you have not heard from us within 2 weeks of having labs work done. Here's the link to [facility] Lab hours and locations: [email or web address] Next visit: Follow up visits are done at 4 months and 12 months after surgery and yearly thereafter. Some patients are evaluated on a more frequent basis. Please call [phone] if you do not receive an appointment [...] Blow dry area on low setting with co founder and chairman. Avoid excessive heat and/or sweating as friction [...] such as Ibuprofen (Advil), Aleve (Naproxen), Excedrin, [place] should be used sparingly after gastric bypass, [...] Our post surgery support group meets at [facility] on the first Friday of every month from 1:00 PM-2:00 PM. You can attend online or in person. Use the following link to attend online: [email or web address] Nutrition and Activity apps- Baritastic, My Fitness Pal, Lose It, My Plate Internet resources: www.ScoreFeeder www.[employer] www.bariatriceating.com www.SendHubnessPal.8minutenergy Renewables/blog [facility] facebook page: [email or web address]ON[facility]ricSurgery Books & Magazines: - Recipes for Life After Weight Loss Surgery by Netta Stovall - Shrink Yourself by Dr Renny Madrigal - Eating Well - www.Chrends.8minutenergy Renewables - Cooking Light- www.cookingOsteoplastics.8minutenergy Renewables Anxiety: The Happiness Trap by Jd Joy The Mindfulness and acceptance workbook for anxiety By Ryan Priest. Mindful eating: What are you Hungry For? By Christiano Barraza The Mindful Diet by Dora Stevenson and the [facility] group. Emotional eating: End Emotional Eating by Nedra Birch Calming the Emotional Storm Lissettechari Ferrari documented in this encounter Progress Notes * Nedra Ling, RD - 12/05/2023 3:00 PM EDT Images from the original note were [place] [address] VIRTUAL NOTE Call made with Lisa Grady [...] Stopped per hematology hx infusions Vitamin D3 10281 IU every 3rd day Food Allergies/Intolerances: red [...] months, sooner if requested. * Lisa Grady, CROWN IRONER - 12/05/2023 3:00 PM EDT Images from the original note were not included[place] [address] SURGERY VIRTUAL NOTE Reason/purpose for phone call: [...] 10 09/02/2023 Lab Results Component Value Date [id number] 09/02/2023 25-OH Vit D Total (ng/mL) [...] by 30 minutes. Patient has met with bone cooking operator today, please see note for additional details/dietary [...] If labwork is done by the primary manager progressive care: please send a copy to the Bariatric Surgery Program, General Surgery Clinic, [facility], or fax [phone] documented in this encounter Plan of Treatment Upcoming Encounters Date Type Department Care Team (Late st Contact Info) Description 08/23/2024 3:30 PM EST TH Visit (TeleHealth) [place] [address] Roxana Webb MD [facility] [place] [place] [address] documented as of this encounter Visit Diagnoses Diagnosis Iron deficiency anemia, unspecified iron deficiency anemia type Vitamin D deficiency Unspecified vitamin D deficiency S/P partial gastrectomy Other postprocedural status documented in this encounter Care Teams Retail Salesperson Relationship Specialty Start Date End Date Maxine, Mike Dege, DNP [address] [place] [address] PCP - General Family Medicine 08/22/22 documented as of this encounter
--- OUTSIDE RECORDS SUMMARY | 2024-08-15 12:08 | XMS_ITS | Encounter Summary ---
Author Organization Pending [facility] Address [facility] [place] [address] Care Team Providers Care Meter Installer And Remover Name Role Phone Mike Goodman DNP Primary Care Provider Encounter Details Date Type Department Care Team (Late st Contact Info) Description 07/16/2023 Interpretation Only Radiology [address] [place] [address] [place] [address] Unknown None Social History Tobacco Use Types Packs/Day Years Used Date Smoking Tobacco: Former Cigarettes Q uit: 12/03/2003 Smokeless Tobacco: Never Alcohol Use Standard Drinks/Week Comments No 0 (1 standard drink = 0.6 oz pur e alcohol) [facility] Inpatient Questions Answer Date Recorded Does [...] PM EST TH Visit (TeleHealth) End[facility]inology at [facility] [place] [address] Roxana Webb MD [facility] [place] [address] documented as of this encounter Procedures Procedure [...] on filedocumented in this encounter Care Teams Meter Installer And Remover Relationship Specialty Start Date End Date Mike Goodman DNP [address] [place] [address] PCP - General Family Medicine 08/22/22 documented as of this encounter
--- OUTSIDE RECORDS SUMMARY | 2024-08-15 12:08 | XMS_ITS | Encounter Summary ---
Author Organization [facility] Address [facility] [place] [address] Care Team Providers Care Curriculum Developer Name Role Phone Mike Goodman DNP Primary Care Provider [phone]- [phone] Reason for Visit * Reason Comments Follow-up Encounter Details Date Type Department Care Team (Late st Contact Info) Description 09/02/2023 3:30 PM EST Office [place] [address] Sheridan Cassidy MD [facility] [place] [address] S/P partial gastrectomy Social History Tobacco Use [...] PM EST TH Visit (TeleHealth) [place] [address] Roxana Webb MD [facility] [place] [address] documented as of this encounter [...] 25 OH 13(L) 21 - 100 ng/mL [facility] Vit D Interp Deficient [facility] Blood 09/02/2023 4:55 PM EST 09/02/2023 5:02 PM EST Narrative Resulting Agency Comment Spec In Lab Sheridan Cassidy MD CHEMISTRY ORDERABLES Performing Organization Address City/[facility] Co de Phone Number [facility] [place] [address] * Vitamin B12 (09/02/2023 4:55 PM EST) Vitamin B12 350 232 - 1,245 pg/mL [facility] Blood 09/02/2023 4:55 PM EST 09/02/2023 5:02 PM EST Narrative Resulting Agency Comment Spec In Lab Sheridan Cassidy MD CHEMISTRY ORDERABLES Performing Organization Address City/[facility]/ZIP Co de Phone Number [facility] [place] [address] * Vitamin B1, whole blood (09/02/2023 4:55 PM EST) Vit B1 Lvl Wb (JANUARY) 77 70 - 180 nmol/L [facility] Comment: ADDITIONAL INFORMATION This test was developed and its performance characteristics determined by [facility] in a manner consistent with CLIA requirements. This test has not been cleared or approved by the U.S. Food and Drug Administration. Test Performed by: [facility] [address] [place] [address] Sourcing Specialist: Didier Botello M.D. Ph.D.; CLIA# [id number] Blood 09/02/2023 4:55 PM EST 09/03/2023 11:27 AM EST Narrative Resulting Agency Comment Spec In Lab Sheridan Cassidy MD LAB SEND OUT ORDERAB LES Performing Organization Address [facility] Co de Phone Number [facility] [place] [address] * (ABNORMAL) PTH (09/02/2023 4:55 PM EST) Parathyroid Hormone 92(H) 15 - 65 pg/mL [facility] Blood 09/02/2023 4:55 PM EST 09/02/2023 5:02 PM EST Narrative Resulting Agency Comment Spec In Lab Sheridan Cassidy MD CHEMISTRY ORDERABLES Performing Organization Address [facility] Co de Phone Number [facility] [place] [address] * Lipid Panel (Reflex Direct LDL) (09/02/2023 4:55 PM EST) Cholesterol, Total 202 mg/dL [facility] Comment: Lower Risk: <200 mg/dL Average Risk: 200-239 mg/dL Higher Risk: >bp=075 mg/dL Triglyceride 70 mg/dL [facility] Comment: Average Risk/Lower Risk: <150 mg/dL Borderline High Risk: 150-199 mg/dL High Risk: 200-499 mg/dL Very High Risk: >vt=473 mg/dL HDL Cholesterol 73 mg/dL [facility] Comment: Males: ?? Higher Risk: <40 mg/dL Females: ?? Higher Risk: <50 mg/dL LDL Cholesterol 115 mg/dL [facility] Comment: Lowest Risk: <100 mg/dL Lower Risk: 100-129 mg/dL Borderline High Risk: 130-159 mg/dL High Risk: 160-189 mg/dL Very High Risk: >ov=084 mg/dL Cholesterol/HDL Ratio 2.8 ratio [facility] Lipid Interpretation See Note [facility] Comment: Lipid management should be guided by a patient? s ASCVD risk, goals and preferences. ACC/AHA Guidelines recommend high intensity statin if clinical ASCVD or LDL greater than or equal to 190 mg/dL. http://Paymetric.com/KMR-DZK-[email or web address] Adults aged 40-75 with LDL 70-189 mg/dL should have their 10 year ASCVD risk estimated with the ACC/AHA ASCVD risk senior mechanical estimator http://tools.acc.org/CRSKP-Wsak-Odgclefbp/ Statin should be discussed if risk greater [...] In Lab Sheridan Cassidy MD CHEMISTRY ORDERABLES [facility] [place] [address] * (ABNORMAL) Iron and TIBC (09/02/2023 4:55 PM EST) Iron 35 30 - 150 mcg/dL [facility] TIBC 478(H) 250 - 450 mcg/dL [facility] Iron Saturation 7(L) 20 - 50 % [facility] Blood 09/02/2023 4:55 PM EST 09/02/2023 5:02 PM EST Narrative Resulting Agency Comment Spec In Lab Sheridan Cassidy MD CHEMISTRY ORDERABLES [facility] [place] [address] * (ABNORMAL) Hemogram (09/02/2023 4:55 PM EST) White Blood Cell 6.7 4.0 - 9.5 x10(3)/mc L [facility] Red Blood Cell 4.72 4.00 - 5.21 x10(6)/mc L [facility] Hemoglobin 11.6(L) 11.7 - 15.5 g/dL [facility] Hematocrit 37.0 35.7 - 45.8 % [facility] Mean Cell Volume 78.4(L) 82.6 - 94.4 fL [facility] Mean Cell Hemoglobin 24.6(L) 27.1 - 32.0 pg [facility] Mean Cell Hemoglobin Concentration 31.4(L) 31.7 - 35.0 g/dL [facility] Platelet 282 145 - 357 x10(3)/mc L [facility] RDW Standard Deviation 37.1 37.0 - 46.0 fL [facility] RDW coefficient of variation 13.0 11.5 - 14.1 % [facility] Mean Platelet Volume 10.0 7.6 - 12.9 fL [facility] NRBC% auto 0.0 % [facility] NRBC Absolute 0.000 0.000 - 0.000 x10(3)/mc L [facility] Blood 09/02/2023 4:55 PM EST 09/02/2023 5:02 PM EST Narrative Resulting Agency Comment Spec In Lab Sheridan Cassidy MD HEMATOLOGY ORDERABLE S Performing Organization Address City/[facility]/ZIP Co de Phone Number [facility] [place] [address] * Hemoglobin A1c (09/02/2023 4:55 PM EST) Hemoglobin A1c 5.4 4.3 - 5.6 % [facility] Comment: Reference Range: 4.3 - 5.6% [...] Mellitus, Diabetes Care 2013; 36: Suppl. 1, S66-07 Estimated Average Glucose 110 mg/dL [facility] Comment: Note: The eAG calculation has not been proven valid for women, individuals below 18 years old or above 70 years old, or individuals with hemoglobinopathies. Estimated average glucose (eAG) is calculated from the equation described in: Ankush ERWIN, Finn J, Dariusz R, et al. ??Translating the A1C assay into estimated average glucose values. ??Diabetes Care 2008:31(8):8626-0216. Additional resources are available on the ADA website (diabetes.org). Blood 09/02/2023 4:55 PM EST 09/02/2023 5:02 PM EST Narrative Resulting Agency Comment Spec In Lab Sheridan Cassidy MD CHEMISTRY ORDERABLES Performing Organization Address City/[facility] Co de Phone Number [facility] [place] [address] * Folate, serum (09/02/2023 4:55 PM EST) Folate 9.5 4.8 - 24.2 ng/mL [facility] Blood 09/02/2023 4:55 PM EST 09/02/2023 5:02 PM EST Narrative Resulting Agency Comment Spec In Lab Sheridan Cassidy MD CHEMISTRY ORDERABLES Performing Organization Address City/[facility]/ZIP Co de Phone Number [facility] [place] [address] * Ferritin (09/02/2023 4:55 PM EST) Ferritin 10 6 - 175 ng/mL [facility] Comment: Please note that as of 08/20/2023, the reference intervals for Ferritin have been updated. Blood 09/02/2023 4:55 PM EST 09/02/2023 5:02 PM EST Narrative Resulting Agency Comment Spec In Lab Sheridan Cassidy MD CHEMISTRY ORDERABLES [facility] [address] [place] [address] * (ABNORMAL) Comprehensive metabolic panel (non-fasting) (09/02/2023 4:55 PM EST) Glucose 102 65 - 199 mg/dL [facility] Comment:Diabetes: >=200 mg/d L plus symptoms Blood Urea Nitrogen 9 8 - 18 mg/dL [facility] Creatinine 0.77 0.70 - 1.20 mg/dL [facility] Sodium 141 135 - 145 mmol/L [facility] Potassium 5.0 3.5 - 5.0 mmol/L [facility] Comment: Please note: ??Patients with WBC >100,000 may have falsely elevated Potassium levels. ??For accurate Potassium quantification in these patients send serum separator tube (gold top) for subsequent determinations. ??Contact the Clinical Chemistry Laboratory if there are any questions. Chloride 104 98 - 107 mmol/L [facility] Carbon Dioxide 29 22 - 31 mmol/L [facility] Anion Gap 8 5 - 15 mmol/L [facility] Calcium 9.3 8.5 - 10.5 mg/dL [facility] Protein, Total 7.1 6.1 - 8.0 g/dL [facility] Albumin 4.5 3.2 - 5.2 g/dL [facility] Aspartate Aminotransferase 21 0 - 30 unit/L [facility] Alanine Aminotransferase 16 0 - 30 unit/L [facility] Alkaline Phosphatase 135(H) 35 - 105 unit/L [facility] Bilirubin, Total 0.2 0.2 - 1.3 mg/dL [facility] Est Glomerular Filtration Rate 95 >=60 mL/min/1. 73 m?? [facility] Comment: This patient's estimated GFR [...] In Lab Sheridan Cassidy MD CHEMISTRY ORDERABLES [facility] [place] [address] documented in this encounter Visit Diagnoses Diagnosis S/P partial gastrectomy Other postprocedural status documented in this encounter Care Teams Curriculum Developer Relationship Specialty Start Date End Date Mike Goodman DNP [address] [place] [address] PCP - General Family Medicine 08/22/22 documented as of this encounter
--- OUTSIDE RECORDS SUMMARY | 2024-08-15 12:08 | XMS_ITS | Encounter Summary ---
Author Organization [facility] Address [facility] [place] [address] Care Team Providers Care Fruit Harvest Machine Operator Name Role Phone Mike Goodman DNP Primary Care Provider Encounter Details Date Type Department Care Team (Late st Contact Info) Description 03/04/2024 2:00 PM EDT Office Visit Hematology/Oncology at [address] [phone] Leobardo Ricci MD [facility] [address] [place] [address] Justa Lyons PRESS BUCKER [address] [place] [address] DR MEDICAL ONCOLOGY [place], [place] [id number] Iron deficiency anemia due to chronic blood loss Social History Tobacco Use Types Packs/Day Years Used Date Smoking Tobacco: Former Cigarettes Q uit: 12/03/2003 Smokeless Tobacco: Never Alcohol Use Standard Drinks/Week Comments No 0 (1 standard drink = 0.6 oz pur e alcohol) [facility] Utilities Answer Date Recorded In the past 12 months has [employer], gas, oil, or water [place] threatened to shut off services in your [...] place to sleep or slept in a jail (including now)? No 10/16/2023 DH IPV Inpatient [...] TH Visit (TeleHealth) [place] [address] Roxana Webb MD [facility] [place] [place] [address] documented as of this encounter Procedures Procedure [...] (chronic) documented in this encounter Care Teams Fruit Harvest Machine Operator Relationship Specialty Start Date End Date Mike Goodman DNP [address] [place] [address] PCP - General Family Medicine 08/22/22 documented as of this encounter
--- OUTSIDE RECORDS SUMMARY | 2024-08-15 12:08 | XMS_ITS | Encounter Summary ---
Author Organization [facility] Address [facility] [place] [address] Care Team Providers Care Senior Analyst Programmer Name Role Phone Mike Goodman DNP Primary Care Provider [phone] Encounter Details Date Type Department Care Team (Latest Contact Info) Description 03/01/2024 2:39 PM EDT - 03/01/2024 11:59 PM EDT Hospital Encounter Mammography/[place] [address] Zahida Interiano MD Vitamin D deficient osteomalacia Discharge Disposition: Home Social History Tobacco Use Types Packs/Day Years Used Date Smoking Tobacco: Former Cigarettes Q uit: 12/03/2003 Smokeless Tobacco: Never Alcohol Use Standard Drinks/Week Comments No 0 (1 standard drink = 0.6 oz pur e alcohol) [facility] Utilities Answer Date Recorded In the past 12 months has [employer], gas, oil, or water [employer] threatened to shut off services in your [...] place to sleep or slept in a custodial (including now)? No 10/16/2023 DH IPV Inpatient [...] 1 tablet by mouth as needed. 05/03/2024 acetaminophen (Tylenol) 325 mg tablet Take 650 mg by mouth every 4 hours as needed for Pain. 05/21/2024 documented as of this encounter Plan of Treatment Upcoming Encounters Date Type Department Care Team (Late st Contact Info) Description 08/23/2024 3:30 PM EST TH Visit (TeleHealth) [place] [address] Roxana Webb MD [facility] [place] [address] documented as of this encounter Procedures Procedure Name Priority Date/Time Associated Diagnosis Comments DXA CENTRAL SPINE, HIP, AND/OR WHOLE BODY (GENERIC) Routine 03/01/2024 3:26 PM EDT Vitamin D deficient osteomalacia documented in this encounter Results * DXA Central Spine, Hip, and/or Whole Body (Generic) (03/01/2024 3:26 PM EDT) [employer] Signature WORKSTATION ID DH RAD Anatomical Region Laterality [...] compare with future DXA scans performed at [facility]. Prevent Fractures! PATIENTS NOT ON TREATMENT: For [...] BMD measurements and plots are available in Tindie under the imaging tab. Paper copies will be sent to providers without [employer] access. If you have received this report without the data sheet and do not have access to Tindie, please contact Radiology Subwarehouse Supervisor at [phone] Friday thru Friday 8am-4pm. ? Bone Density Report ? Name: ?Mora Bolanos Kanika Age: ? 48 Sex: ? Female Ethnicity: ? White Date of : 1975 Referring Provider: ZAHIDA INTERIANO Study: Bone densitometry was performed. Model: Geovanni Boudreaux (S/N [id number]) SW version 13.6.1.3 Exam Date: March 01, 2024 Accession number: [id number] Bone Density: Region ? BMD ?T-score ??Z-score [...] have questions please contact the health rn urgent care that requested your imaging first. ? Electronically signed by: Jethro Hutchins MD, [facility] ([phone]), at 03/01/2024 5:16 PM Narrative 03/01/2024 5:16 [...] to compare with future DXA scans performedat [facility]. Prevent Fractures! PATIENTS NOT ON TREATMENT: For [...] BMD measurements and plots are available in Tindieunder the imaging tab. Paper copies will be sent to providers without [employer] access.If you have received this report without the data sheet and do not haveaccess to Tindie, please contact Radiology Subwarehouse Supervisor at [phone] Friday thruFrid 8am-4pm. Bone Density Report Name: Mora Bolanos Age: 48 Sex: Female Ethnicity: White Date of : 1975 Referring Provider: ZAHIDA INTERIANO Study: Bone densitometry was performed. Model: [facility] A (S/N [id number]) [employer] version 13.6.1.3 Exam Date: March 01, 2024 Accession number: [id number] Bone Density: Region BMD T-score Z-score AP [...] who have questions please contactthe health rn urgent care that requested your imaging first. Electronically signed by: Jethro Hutchins MD, [facility]([phone]), at 03/01/2024 5:16 PM Zahida Interiano MD IMG DEXA ORDERABLES documented in this encounter Visit Diagnoses Diagnosis Vitamin D deficient osteomalacia Osteomalacia, unspecified documented in this encounter Care Teams Senior Analyst Programmer Relationship Specialty Start Date End Date Mike Goodman DNP [address] [place] [address] [place] [address] PCP - General Family Medicine 08/22/22 documented as of this encounter
--- OUTSIDE RECORDS SUMMARY | 2024-08-15 12:08 | XMS_ITS | Encounter Summary ---
Author Organization [facility] [place] [address] Care Team Providers Care Table Tender Name Role Phone Mike Goodman KYLE Primary Care Provider [phone] Reason for Visit * Reason Onset Date Comments Results 11/06/2023 Encounter Details Date Type Department Care Team (Late st Contact Info) Description 11/06/2023 Telephone Hematology [place] [address] Garry Bullard [facility] Hematology/[place] [address] Results Social History Tobacco Use Types Packs/Day Years Used Date Smoking Tobacco: Former Cigarettes Q uit: 12/03/2003 Smokeless Tobacco: Never Alcohol Use Standard Drinks/Week Comments No 0 (1 standard drink = 0.6 oz pur e alcohol) [facility] Utilities Answer Date Recorded In the past 12 months has [employer], gas, oil, or water [employer] threatened to shut off services in your [...] health care facility (including now)? No 10/16/2023 DH IPV Inpatient [...] is provided below. Please be advised that [place] law requires that all health care workers respect the confidentiality of this information and not pass it along to other health care providers, insurance companies, or individuals without the written permission of the patient. The Familial Cancer Program welcomes any questions about these matters. Our phone number is: [phone]. On 10/01/2023 Mora was seen for genetic counseling and subsequently underwent genetic testing for a hereditary predisposition to cancers in eight major organ systems including breast, gynecologic, gastrointestinal, endocrine, genitourinary, skin, brain/nervous system, sarcoma and hematologic. Following are the results of this test. Result: [facility] CancerNext-Expanded +[employer] Panel showed no mutation was detected. This [...] NF1, NF2, NTHL1, PALB2, PHOX2B, PMS2, POT1, IFZBH6V, PTCH1, PTEN, RAD51C, RAD51D, RB1, RECQL, RET, SDHA, SDHAF2, SDHB, SDHC, SDHD, SMAD4, SMARCA4, SMARCB1, SMARCE1, STK11, SUFU, XKAR738, TP53, TSC1, TSC2, VHL and XRCC2 (sequencing [...] in the testing. Based on these results, Mora's children do not need genetic testing for [...] and/or Pap smears as recommended by Mora's oil dispatcher or primary care provider. Ovarian cancer risk [...] surgery further, she can talk to her oil dispatcher or request a referral to the gynecological oncology program here at [facility]. Colon cancer screening Baseline colorectal cancer screening starting by age 45-50 is important for everyone, regardless ofgenetic predisposition. If Mora hasn't begun screening yet she should discuss the available screening options with her primary care provider. Periodic colonoscopy screening as recommended by Mora's safety and security manager, taking family history it account. Skin cancer screening Skin cancer screening and sun protection are important for everyone, regardless of genetic predisposition. Consideration of routine dermatologic/skin exams, as recommended by Mora's primary care provider or classroom teacher. documented in this encounter Plan of Treatment Upcoming Encounters Date Type Department Care Team (Late st Contact Info) Description 08/23/2024 3:30 PM EST TH Visit (TeleHealth) [place] [address] [facility] [address] documented as of this encounter Visit Diagnoses Not on filedocumented in this encounter Care Teams Table Tender Relationship Specialty Start Date End Date Mike Goodman DNP [address] [place] [address] PCP - General Family Medicine 08/22/22 documented as of this encounter
--- OUTSIDE RECORDS SUMMARY | 2024-08-15 12:08 | XMS_ITS | Encounter Summary ---
Author Organization [facility] Address [facility] [place] [address] Care Team Providers Care It Disaster Recovery Manager Name Role Phone Mike Goodman DNP Primary Care Provider [phone] Encounter Details Date Type Department Care Team (Latest Contact Info) Description 10/16/2023 Travel Social History Tobacco Use Types Packs/Day Years Used Date Smoking Tobacco: Former Cigarettes Q uit: 12/03/2003 Smokeless Tobacco: Never Alcohol Use Standard Drinks/Week Comments No 0 (1 standard drink = 0.6 oz pur e alcohol) [facility] Utilities Answer Date Recorded In [...] in a jail (including now)? No 10/16/2023 IPV Inpatient Questions [...] PM EST TH Visit (TeleHealth) [place] [address] Roxana Webb MD [facility] [place] [address] documented as of this encounter Visit Diagnoses Not on filedocumented in this encounter Care Teams It Disaster Recovery Manager Relationship Specialty Start Date End Date Mkie Goodman DNP [address] [place] [address] PCP - General Family Medicine 08/22/22 documented as of this encounter
--- OUTSIDE RECORDS SUMMARY | 2024-08-15 12:08 | XMS_ITS | Encounter Summary ---
Author Organization [facility] Address [facility] [place] [address] Care Team Providers Care Lead Mobile Developer Name Role Phone Mike Goodman DNP Primary Care Provider [phone] Reason for Referral * Consultation (Routine) - Closed Specialty Diagnoses / Procedures Referred By Martha broussard Referred To Contact Endocrinology Diagnoses Vitamin D deficient osteomalacia Zahida Interiano MD [facility] [place] [address] Roxana Webb MD [facility] [place] [address] Referral ID Status Reason Start Date Expiration Date V isits Requested Visits Authorized [id number] Closed Consult, Test & Treat 02/11/2024 02/10/2025 1 1 Encounter Details Date Type Department Care Team (Latest Contact Info) Description 02/11/2024 11:30 AM EDT TH Visit (TeleHealth) [place] [address] Zahida Interiano MD Vitamin D deficient osteomalacia Social History Tobacco Use Types Packs/Day Years Used Date Smoking Tobacco: Former Cigarettes Q uit: 12/03/2003 Smokeless Tobacco: Never Alcohol Use Standard Drinks/Week Comments No 0 (1 standard drink = 0.6 oz pur e alcohol) [facility] Utilities Answer Date Recorded In [...] in a fdc (including now)? No 10/16/2023 DH IPV Inpatient [...] for her to see one of my lettuce trimmer colleagues who is a specialist in boneand calcium disorders. Total time taken to review the chart, notes and labs, interviewed the patient, and coordinate ongoing testing and her future care 30 minutes documented in this encounter Plan of Treatment Upcoming Encounters Date Type Department Care Team (Late st Contact Info) Description 08/23/2024 3:30 PM EST TH Visit (TeleHealth) [place] [address] Roxana Webb MD [facility] [place] [address] Scheduled Orders Name Type Priority Associated Diagnoses [...] Parathyroid Hormone 76(H) 15 - 65 pg/mL [facility] Blood 03/01/2024 3:28 PM EDT 03/01/2024 3:48 PM EDT Narrative Resulting Agency Comment Spec In Lab Zahida Interiano MD CHEMISTRY ORDERABLES Performing Organization Address City/[facility]/ZIP Co de Phone Number [facility] [place] [address] * Phosphorus (03/01/2024 3:28 PM EDT) Phosphorus 3.9 2.5 - 4.5 mg/dL [facility] Blood 03/01/2024 3:28 PM EDT 03/01/2024 3:48 PM EDT Narrative Resulting Agency Comment Spec In Lab Zahida Interiano MD CHEMISTRY ORDERABLES Performing Organization Address City/[facility]/ZIP Co de Phone Number [facility] [place] [address] * (ABNORMAL) Comprehensive metabolic panel (non-fasting) (03/01/2024 3:28 PM EDT) Glucose 91 65 - 199 mg/dL [facility] Comment:Diabetes: >=200 mg/d L plus symptoms Blood Urea Nitrogen 6(L) 8 - 18 mg/dL [facility] Creatinine 0.78 0.70 - 1.20 mg/dL [facility] Sodium 143 135 - 145 mmol/L [facility] Potassium 4.2 3.5 - 5.0 mmol/L [facility] Comment: Please note: ??Patients with WBC >100,000 may have falsely elevated Potassium levels. ??For accurate Potassium quantification in these patients send serum separator tube (gold top) for subsequent determinations. ??Contact the Clinical Chemistry Laboratory if there are any questions. Chloride 104 98 - 107 mmol/L [facility] Carbon Dioxide 28 22 - 31 mmol/L [facility] Anion Gap 11 5 - 15 mmol/L [facility] Calcium 9.3 8.5 - 10.5 mg/dL [facility] Protein, Total 6.6 6.1 - 8.0 g/dL [facility] Albumin 4.1 3.2 - 5.2 g/dL [facility] Aspartate Aminotransferase 25 0 - 30 unit/L [facility] Alanine Aminotransferase 23 0 - 30 unit/L [facility] Alkaline Phosphatase 111(H) 35 - 105 unit/L [facility] Bilirubin, Total 0.3 0.2 - 1.3 mg/dL [facility] Est Glomerular Filtration Rate 93 >=60 mL/min/1. 73 m?? [facility] Comment: This patient's estimated GFR [...] Interiano MD CHEMISTRY ORDERABLES Performing Organization Address City/[facility]/ZIP Co de Phone Number [facility] [place] [address] * 1,25-dihydroxycholecalciferol (03/01/2024 3:28 PM EDT) Pathologist [facility] Vit D 1,25 Dihydroxy (JANUARY) 37 18 - 78 pg/mL [facility] Comment: ADDITIONAL INFORMATION This test was developed and its performance characteristics determined by [facility] in a manner consistent with CLIA requirements. This test has not been cleared or approved by the U.S. Food and Drug Administration. Test Performed by: [facility] [place] [address] Collection Systems Modeler: Talat Meier Ph.D.; CLIA# [id number] Blood 03/01/2024 3:28 PM EDT 03/02/2024 2:38 PM EDT Narrative Resulting Agency Comment Spec In Lab Zahida Interiano MD LAB SEND OUT ORDERAB LES Performing Organization Address [facility] Co de Phone Number [facility] [place] [address] * (ABNORMAL) Vitamin D, 25-Hydroxy (03/01/2024 3:28 PM EDT) [facility] Vitamin D Total 25 OH 18(L) 21 - 100 ng/mL [facility] Vit D Interp Deficient [facility] Blood 03/01/2024 3:28 PM EDT 03/01/2024 3:48 PM EDT Narrative Resulting Agency Comment Spec In Lab Zahida Interiano MD CHEMISTRY ORDERABLES Performing Organization Address City/[facility]/ZIP Co de Phone Number [facility] [place] [address] * DXA Central Spine, Hip, and/or Whole Body (Generic) (03/01/2024 3:26 PM EDT) [employer] WORKSTATION ID DH RAD Anatomical Region Laterality [...] compare with future DXA scans performed at [facility]. Prevent Fractures! PATIENTS NOT ON [...] BMD measurements and plots are available in EOngo under the imaging tab. Paper copies will be sent to providers without E- access. If you have received this report without the data sheet and do not have access to EDeath by Party, please contact Radiology Street Openings Inspector at [phone] Friday thru Friday 8am-4pm. ? Bone Density Report ? Name: ?Mora Bolanos Age: ? 48 Sex: ? Female Ethnicity: ? White Date of : 1975 Referring Provider: ZAHIDA INTERIANO Study: Bone densitometry was performed. Model: Swiftcourt A (S/N [id number]) SW version 13.6.1.3 Exam Date: March 01, 2024 Accession number: [id number] Bone Density: Region ? BMD ?T-score ??Z-score [...] who have questions please contact the health client care consultant that requested your imaging first. ? Narrative 03/01/2024 5:16 PM EDT EXAMINATION: DXA CENTRAL SPINE, HIP, AND/OR WHOLE BODY (GENERIC) CLINICAL HISTORY: 48 years Female Low Vit D from Malabsorption ? Osteoprosis/Osteomalacia (as entered by ordering provider) TECHNIQUE: Scans were acquired at the lumbar spine, left hip and left forearm using the Aspectiva A system. COMPARISON: Outside hospital DXA 02/17/2019 [...] spine, left hip and leftforearm using the Aspectiva A system. COMPARISON: Outside hospital DXA 02/17/2019 [...] to compare with future DXA scans performedat [facility]. Prevent Fractures! PATIENTS NOT ON [...] BMD measurements and plots are available in EOngounder the imaging tab. Paper copies will be sent to providers without BriteHub access.If you have received this report without the data sheet and do not haveaccess to EOngo, please contact Radiology Street Openings Inspector at [phone] Friday thruFriday 8am-4pm. Bone Density Report Name: Mora Bolanos Age: 48 Sex: Female Ethnicity: White Date of : 1975 Referring Provider: ZAHIDA INTERIANO Study: Bone densitometry was performed. Model: jslyhl (S/N [id number]) Hyginex version 13.6.1.3 Exam Date: March 01, 2024 Accession number: [id number] Bone Density: Region BMD T-score Z-score AP [...] patients who have questions please contactthe health client care consultant that requested your imaging first. Zahida Interiano MD IMG DEXA ORDERABLES documented in this encounter Visit Diagnoses Diagnosis Vitamin D deficient osteomalacia Osteomalacia, unspecified Vitamin D deficient osteomalacia Osteomalacia, unspecified documented in this encounter Care Teams Lead Mobile Developer Relationship Specialty Start Date End Date Mike Goodman DNP [address] [place] [address] PCP - General Family Medicine 08/22/22 documented as of this encounter
--- OUTSIDE RECORDS SUMMARY | 2024-08-15 12:08 | XMS_ITS | Encounter Summary ---
Author Organization [facility] Address [facility] [place] [address] Care Team Providers Care Dye Weigher Helper Name Role Phone Mike Goodman DNP Primary Care Provider [phone] Encounter Details Date Type Department Care Team [...] PM EST TH Visit (TeleHealth) [place] [address] Roxana Webb MD [facility] [place] [address] documented as of this encounter Visit Diagnoses Not on filedocumented in this encounter Care Teams Dye Weigher Helper Relationship Specialty Start Date End Date Mike Goodman DNP [address] [place] [address] PCP - General Family Medicine 08/22/22 documented as of this encounter
--- OUTSIDE RECORDS SUMMARY | 2024-08-15 12:08 | XMS_ITS | Encounter Summary ---
[place] [address] Care Team Providers Care Fish Rod Maker Name Role Phone Mike Goodman DNP Primary Care Provider Encounter Details Date Type Department Care Team (Late st Contact Info) Description 08/19/2023 9:45 AM EST Laboratory Appointment Lab [address] [address] Social History Tobacco Use Types Packs/Day Years Used Date Smoking Tobacco: Former Cigarettes Q uit: 12/03/2003 Smokeless Tobacco: Never Alcohol Use Standard Drinks/Week Comments No 0 (1 standard drink = 0.6 oz pur e alcohol) [facility] Inpatient Questions Answer Date Recorded Does Anyone [...] PM EST TH Visit (TeleHealth) [place] [address] Roxana Webb MD [facility] [place] [address] documented as of this encounter Visit Diagnoses Not on filedocumented in this encounter Care Teams Fish Rod Maker Relationship Specialty Start Date End Date Mike Goodman DNP [address] [place] [address] PCP - General Family Medicine 08/22/22 documented as of this encounter
--- OUTSIDE RECORDS SUMMARY | 2024-08-15 12:08 | XMS_ITS | Encounter Summary ---
Author Organization [facility] [place] [address] Care Team Providers Care Draw Frame Runner Name Role Phone Mike Goodman KYLE Primary Care Provider [phone] Reason for Referral * Diagnostic Test (Routine) - Closed Specialty Diagnoses / Procedures Referred By Martha broussard Referred To Contact Gastroenterology Diagnoses Bloating HBT - lactulose - bloating Procedures Breath Hydrogen [place] [address] [place] [address] Referral ID Status Reason Start Date Expiration Date V isits Requested Visits Authorized [id number] Closed Consult, Test & Treat 04/27/2024 04/27/2025 1 1 * Diagnostic Test (Routine) - Closed Specialty Diagnoses / Procedures Referred By Martha broussard Referred To Contact Gastroenterology Diagnoses Gastroesophageal reflux disease, unspecified whether esophagitis present Esophageal dysphagia pH impedance ON PPI - regurgitation Procedures pH Impedance - 24 [place] [address] [facility] [address] [place] [address] Referral ID Status Reason Start Date Expiration Date V isits Requested Visits Authorized [id number] Closed Consult, Test & Treat 04/27/2024 04/27/2025 1 1 * Diagnostic Test (Routine) - Closed Specialty Diagnoses / Procedures Referred By Martha t Referred To Contact Gastroenterology Diagnoses Gastroesophageal reflux disease, unspecified whether esophagitis present Esophageal dysphagia HREM - dysphagia Procedures High Resolution Esophageal Manometry [place] [address] [address] Referral ID Status Reason Start Date Expiration Date V isits Requested Visits Authorized [id number] Closed Test Only 04/27/2024 04/27/2025 1 1 Reason for Visit * Consultation (Routine) - Closed Specialty Diagnoses / Procedures Referred By Martha t Referred To Contact Gastroenterology Diagnoses Chronic abdominal pain Senait Rico [facility] [place] [address] [facility] [address] [place] [phone] Referral ID Status Reason Start Date Expiration Date V isits Requested Visits Authorized [id number] Closed Consult, Test & Treat 02/11/2024 02/10/2025 1 1 Encounter Details Date Type Department Care Team (Late st Contact Info) Description 04/27/2024 3:00 PM EDT Office [place] [address] [place] [address] Altered bowel function; Bloating; Gastroesophageal reflux disease, unspecified whether esophagitis present; Esophageal dysphagia; Nausea without vomiting; Lower abdominal pain; Epigastric pain Social History Tobacco Use Types Packs/Day Years Used Date Smoking Tobacco: Former Cigarettes Q uit: 12/03/2003 Smokeless Tobacco: Never Alcohol Use Standard Drinks/Week Comments No 0 (1 standard drink = 0.6 oz pur e alcohol) [facility] Utilities Answer Date Recorded In the [...] hear from us within 1 week: Clinic [phone] Motility Lab scheduling [phone] Endoscopy scheduling- [phone] Ms. Bolanos, It was a pleasure to [...] bloating you may try Citrucel. Follow-up with LODGING MANAGER regarding bloating, abdominal pain, and altered bowel pattern similar to endometriosis flare. Patient was instructed to go to the ED with any worsening of abdominal pain or changing of abdominal pain and other symptoms. We will f/u 3 weeks after testing. Thanks! LOUIE Guillen Functional Bowel Disorders: Information Handout for Patients and Primary Care Providers [facility] Gastrointestinal Motility, Esophageal, and Swallowing Disorders Center [...] what is the impact? 15-20% of general [place] population has IBS or FD or both 2nd most common cause for lost work days (after common cold) in [place] Estimated $30 billion dollar cost to [place] economy per year These disorders can have [...] with immediate onset of symptoms after infection); terminal computer operator symptoms are expected in most patients however [...] to you primary care provider and/or local gas engineer and share this document. Treatment of functional [...] - this approach benefits most patients OTC (awuc-fnw-lnploey) medications can be used for ongoing bothersome symptoms as listed below Your provider (PCP or local Gastroenterology provider or [facility] provider) may decide to use prescription [...] All-Bran psyllium buds, Metamucil, Konsyl, bulk psyllium (health food stores and bulk stores) Specifically we [...] but convincing medical evidence is still lacking Ujhr-tmj-ltjzihj supplements including probiotics are not typically evaluated by FDA. The quality and even safety is often unclear and many products (despite being very expensive) actually do not contain any active ingredients at all! Live-culture yogurts, kombucha, sauerkraut and other dietary sources may help improve your microbiome Navya, TuZen, and Visbiome are the three probiotics that are supported by medical research to have benefit for IBS Florastor has been shown to decrease antibiotic-associated diarrhea and post- infectious diarrhea BioK Plus has been shown to decrease antibiotic-associated diarrhea and antibiotic-related infections Asin-vqs-Pwhpjyd Medications for Functional Gut Disorders Based on [...] a stool softener that is safe for long-term usage (no risk of dependency) andthe dosage [...] (GERD) Often a combination of anti-nausea medications (sdkp-myc-doedtea or prescription) works better thanhigh doses of [...] for misuse/misinterpretation of this information Patient Resources [place] [employer] https://www.gastro.org/practice-guidance/bo-pgbjnyc-olaxao/ topic/lgicpdjsb-vgrco-whzhwfmf-ibs Badgut.org https://badgut.org/information-centre/b-j-zwdbdekoz-topics/ibs/ AboutIBS.org https://www.aboutibs.org/ CompBluetodate.com https://www.Deltekdate.com/contents/syzzmqplj-aexha-oswiluhy-yhebzb-jbp-frqlfa documented in this encounter Progress Notes * [...] H/O abuse: No Disordered Eating: No 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 Review of systems: 14-system ROS reviewed and [...] history that includes Upper Gi Endoscopy, Exam (10519) (09/04/2012); Upper Gi Endoscopy, Biopsy (75622) (09/04/2012); Unlisted Laparoscopic Procedure Esophagus (58492) (11/25/2012); Upper GI Endoscopy, Diagnostic (46159) (11/25/2012); Upper GI Endoscopy, Diag nostic (38603) (07/18/2014); Upper Gi Endoscopy, Biopsy (82098) (N/A, 07/22/2016); Upper Gi Endoscopy, Biopsy (41737) (N/A, 10/20/2017); Unlisted Laparoscopic Procedure Esophagus (29339) (N/A, 11/26/2017); Unlisted Laparoscopic Procedure Stomach (02442) (N/A, 11/26/2017); Upper GI Endoscopy, Diagnostic (21441) (N/A, 11/26/2017); Upper Gi Endoscopy, Biopsy (08917) (N/A, 03/09/2018); Upper GI Endoscopy, Diagnostic (09085) (N/A, 01/08/2021); Lap, Dx Surgical Abd W/Biopsy (52793) (N/A, 07/16/2023); and UpperGI Endoscopy, Diagnostic (95387) (N/A, 07/16/2023). Family History: family history includes [...] biopsies. Patient also instructed to follow-up with LODGING MANAGER regarding abdominal pain, bloating, and altered bowelpattern similar to when patient had endometriosis flares. Will obtain stool samples: C. difficile, crypto/Giardia, fecal elastase, and stool culture. Will send labs to [facility] per patient request. Could consider anorectal manometry [...] bloating you may try Citrucel. Follow-up with LODGING MANAGER regarding bloating, abdominal pain, and altered bowel pattern similar to endometriosis flare. Patient was instructed to go to the ED with any worsening of abdominal pain or changing of abdominal pain and other symptoms. We also discussed the collaborative care model of the [facility] GI motility program. The patient should [...] a local GI currently (if outside the [facility] area). Yearly or bi-yearly visits with a [...] of appointment: 10 minutes Alena Pizarro APRN [facility] [place] [address] documented in this encounter Plan of Treatment Upcoming Encounters Date Type Department Care Team (Late st Contact Info) Description 08/23/2024 3:30 PM EST TH Visit (TeleHealth) [place] [address] Roxana Webb MD [facility] [place] [address] Scheduled Orders Name Type Priority Associated Diagnoses [...] 04/27/2024 (Approximate), Expires: 07/28/2024 Giardia/Cryptosporidiu m Antigens ([facility]/CGP/[facility]) Microbiology Routine Altered bowel function Expected: 04/27/2024, Expires: 10/27/2024 Elastase, Stool Lab Routine Altered bowel function Expected: 04/27/2024, Expires: 10/27/2024 Stool Culture Screen ([facility]/CG/[facility]) Microbiology Routine Altered bowel function Expected: 04/27/2024, Expires: 10/27/2024 XR Fluoro Upper GI With Small Bowel Follow Thru Imaging Routine Bloating Nausea without vomiting Lower abdominal pain Epigastric pain Expected: 04/27/2024, Expires: 10/27/2024 documented as of this encounter Results * Tissue Transglutaminase, IgA (04/27/2024 4:14 PM EDT) Pathologist [facility] TTG IgA Ab <0.4 <=10.0 U/mL 04/28/2024 3:02 PM EDT [facility] Blood VENOUS BLOOD SPECIMEN / Unknown Venipuncture / Unknown 04/27/2024 4:14 PM EDT 04/27/2024 4:15 PM EDT Narrative [facility] - 04/28/2024 3:02 PM EDT <7 U/mL: Negative 7-10 U/mL: Indeterminate >10 U/mL: Positive Alena Pizarro AUTO REPAIR TECHNICIAN IMMUNOLOGY ORDERAB LES [facility] [place] [address] * IgG (04/27/2024 4:14 PM EDT) Pathologist [facility] IgG 842 700 - 1,600 mg/dL 04/27/2024 5:18 PM EDT [facility] Blood VENOUS BLOOD SPECIMEN / Unknown Venipuncture / Unknown 04/27/2024 4:14 PM EDT 04/27/2024 4:15 PM EDT Alena M Juarez CARMENN CHEMISTRY ORDERABL ES Performing Organization Address [facility] Co de Phone Number [facility] [place] [address] * IgA (04/27/2024 4:14 PM EDT) IgA 215 70 - 400 mg/dL 04/27/2024 5:18 PM EDT [facility] Blood VENOUS BLOOD SPECIMEN / Unknown Venipuncture / Unknown 04/27/2024 4:14 PM EDT 04/27/2024 4:15 PM EDT Alena M Juarez CARMENN CHEMISTRY ORDERABL ES Performing Organization Address [facility] Co de Phone Number [facility] [place] [address] * TSH (04/27/2024 4:14 PM EDT) Thyroid Stimulating Hormone 1.26 0.27 - 4.20 mcIU/mL 04/27/2024 5:23 PM EDT [facility] Comment: Reference Interval (mcIU/mL): ?? Females: ? First Trimester: 0.23-3.88 ? Second Trimester: 0.22-3.90 ? Third Trimester: 0.44-4.66 Blood VENOUS BLOOD SPECIMEN / Unknown Venipuncture / Unknown 04/27/2024 4:14 PM EDT 04/27/2024 4:15 PM EDT Alena M Juarez CARMENN CHEMISTRY ORDERABL ES Performing Organization Address [facility] Co de Phone Number [facility] [place] [address] documented in this encounter Visit Diagnoses Diagnosis Altered bowel function Other symptoms involving digestive system Bloating Flatulence, eructation, and gas pain Gastroesophageal reflux disease, unspecified whether esophagitis present Esophageal dysphagia Dysphagia, pharyngoesophageal phase Nausea without vomiting Lower abdominal pain Abdominal pain, other specified site Epigastric pain Abdominal pain, epigastric documented in this encounter Care Teams Draw Frame Runner Relationship Specialty Start Date End Date Mike Goodman DNP [address] [place] [address] PCP - General Family Medicine 08/22/22 documented as of this encounter
--- OUTSIDE RECORDS SUMMARY | 2024-08-15 12:08 | XMS_ITS | Encounter Summary ---
Author Organization [facility] Address [facility] [place] [address] Care Team Providers Care Heat Treater Head Name Role Phone Mike Goodman DNP Primary Care Provider +1 [phone] Encounter Details Date Type Department Care Team (Late st Contact Info) Description 08/19/2023 Orders [place] [address] Jessica Tyler, [facility] [place] [address] Social History Tobacco Use Types Packs/Day Years [...] PM EST TH Visit (TeleHealth) [place] [address] Roxana Webb MD [facility] [place] [address] documented as of this encounter Visit Diagnoses Not on filedocumented in this encounter Care Teams Heat Treater Head Relationship Specialty Start Date End Date Mike Goodman DNP [address] [place] [address] PCP - General Family Medicine 08/22/22 documented as of this encounter
--- OUTSIDE RECORDS SUMMARY | 2024-08-15 12:08 | XMS_ITS | Encounter Summary ---
[place] [address] Care Team Providers Care Maintenance Electrician Name Role Phone Mike Goodman KYLE Primary Care Provider [phone]- [phone] Reason for Referral * Diagnostic Test (Routine) - Closed Specialty Diagnoses / Procedures Referred By Martha broussard Referred To Contact Radiology Diagnoses Breast lesion on mammography Procedures MRI Breast wwo Contrast Jaimee Shields APRN [facility] [place] [address] [place] [address] Referral ID Status Reason Start Date Expiration Date V isits Requested Visits Authorized [id number] Closed Specialty Service Requested 06/17/2023 12/16/2024 1 1 Reason for Visit * Diagnostic Test (Routine) - Closed Specialty Diagnoses / Procedures Referred By Martha broussard Referred To Contact Radiology Diagnoses Breast lesion on mammography Procedures MRI Breast wwo Contrast Jaimee Shields APRN [facility] [place] [address] [place] [address] Referral ID Status Reason Start Date Expiration Date V isits Requested Visits Authorized [id number] Closed Specialty Service Requested 06/17/2023 12/16/2024 1 1 Encounter Details Date Type Department Care Team (Latest Contact Info) Description 07/29/2023 6:11 PM EST - 07/29/2023 11:59 PM EST Hospital Encounter [facility] [place] [address] Jaimee Maki APRN [facility] [place] [address] Breast lesion on mammography Discharge Disposition: Home Social History Tobacco Use Types Packs/Day Years Used Date Smoking Tobacco: Former Cigarettes Q uit: 12/03/2003 Smokeless Tobacco: Never Alcohol Use Standard Drinks/Week Comments No 0 (1 standard drink = 0.6 oz pur e alcohol) [facility] Inpatient Questions Answer Date Recorded [...] Takes it 4 times a day 08/19/2023 documented as of this encounter Plan of Treatment Upcoming Encounters Date Type Department Care Team (Late st Contact Info) Description 08/23/2024 3:30 PM EST TH Visit (TeleHealth) [place] [address] Roxana Webb MD [facility] [place] [address] documented as of this encounter Procedures Procedure [...] who have questions please contact the health managed care manager that requested your imaging first. ? Narrative [...] contrast enhancement curve analysis was performed, using [employer] software. COMPARISON STUDIES: No prior contrast-enhanced breast [...] mLs documented in this encounter Care Teams Maintenance Electrician Relationship Specialty Start Date End Date Mike Goodman DNP [address] [place] [address] PCP - General Family Medicine 08/22/22 documented as of this encounter
--- OUTSIDE RECORDS SUMMARY | 2024-08-15 12:08 | XMS_ITS | Encounter Summary ---
[place] [address] Care Team Providers Care Accelerator Technician Name Role Phone Mike Goodman KYLE Primary Care Provider [phone] Reason for Referral * Consultation (Routine) - Closed Specialty Diagnoses / Procedures Referred By Martha broussard Referred To Contact Gastroenterology Diagnoses Chronic abdominal pain Senait Rico APRN [facility] [place] [address] [facility] [address] [address] Referral ID Status Reason Start Date Expiration Date V isits Requested Visits Authorized [id number] Closed Consult, Test & Treat 02/11/2024 02/10/2025 1 1 Encounter Details Date Type Department Care Team (Late st Contact Info) Description 02/11/2024 Orders [place] [address] Senait Rico PERSONAL SHOPPER [facility] [place] [address] Chronic abdominal pain Social History Tobacco Use Types Packs/Day Years Used Date Smoking Tobacco: Former Cigarettes Q uit: 12/03/2003 Smokeless Tobacco: Never Alcohol Use Standard Drinks/Week Comments No 0 (1 standard drink = 0.6 oz pur e alcohol) [facility] Utilities Answer Date Recorded In the [...] in a correction (including now)? No 10/16/2023 DH IPV Inpatient [...] PM EST TH Visit (TeleHealth) [place] [address] Roxana Webb MD [facility] [place] [address] Scheduled Referrals Name Type Priority Associated Diagnoses Order Schedule Referral to Gastroenterology Outpatient Referral Routine Chronic abdominal pain Ordered: 02/11/2024 documented as of this encounter Visit Diagnoses Diagnosis Chronic abdominal pain Abdominal pain, unspecified site documented in this encounter Care Teams Accelerator Technician Relationship Specialty Start Date End Date Mike Goodman DNP [address] [place] [address] PCP - General Family Medicine 08/22/22 documented as of this encounter
--- OUTSIDE RECORDS SUMMARY | 2024-08-15 12:08 | XMS_ITS | Encounter Summary ---
Author Organization [facility] [place] [address] Care Team Providers Care Converting Technician Name Role Phone Mike Goodman DNP Primary Care Provider [phone]- [phone] Encounter Details Date Type Department Care Team (Late st Contact Info) Description 10/01/2023 Orders Only Hematology [place] [address] [facility] [place] [address] Family history of malignant neoplasm of breast; [...] PM EST TH Visit (TeleHealth) [place] [address] Roxana Webb MD [facility] [place] [address] documented as of this encounter Results * Research Venipuncture (10/01/2023 2:12 PM EST) Research Venipuncture Drawn [facility] Blood 10/01/2023 2:12 PM EST 10/01/2023 2:35 PM EST Narrative Resulting Agency Comment Spec In Lab Amalia Pendleton ADVANCE AGENT CHEMISTRY ORDERABLE S [facility] [place] [address] documented in this encounter Visit Diagnoses Diagnosis Family history of malignant neoplasm of breast Family history of malignant neoplasm of ovary documented in this encounter Care Teams Converting Technician Relationship Specialty Start Date End Date Mike Goodman DNP [address] [place] [address] PCP - General Family Medicine 08/22/22 documented as of this encounter
--- OUTSIDE RECORDS SUMMARY | 2024-08-15 12:08 | XMS_ITS | Encounter Summary ---
Author Organization [facility] Address [facility] [place] [address] Care Team Providers Care Vessel Slag Worker Name Role Phone Mike Goodman DNP Primary Care Provider +1- [phone] Encounter Details Date Type Department Care Team [...] PM EST TH Visit (TeleHealth) [place] [address] Roxana Webb MD [facility] [place] [address] documented as of this encounter Visit Diagnoses Not on filedocumented in this encounter Care Teams Vessel Slag Worker Relationship Specialty Start Date End Date Mike Goodman DNP [address] [place] [address] PCP - General Family Medicine 08/22/22 documented as of this encounter
--- OUTSIDE RECORDS SUMMARY | 2024-08-15 12:08 | XMS_ITS | Encounter Summary ---
[place] [address] Care Team Providers Care Manager Home Healthcare Name Role Phone Mike Goodman KYLE Primary Care Provider Reason for Referral * Diagnostic Test (Routine) - Closed Specialty Diagnoses / Procedures Referred By Martha broussard Referred To Contact Diagnoses Pain of upper abdomen Procedures Duplex Study Visceral Arteries, Comp Jessica Pereyra APRN [facility] [place] [address] [facility] V[facility] [address] [address] Referral ID Status Reason Start Date Expiration Date V isits Requested Visits Authorized [id number] Closed Specialty Service Requested 08/19/2023 08/18/2024 1 1 Encounter Details Date Type Department Care Team (Late st Contact Info) Description 08/19/2023 8:00 AM EST Office Visit [place] [address] Jessica Pereyra APRN [facility] [place] [address] Pain of upper abdomen Social [...] this encounter Progress Notes * Jessica Pereyra, LIFE SCIENCE TECHNICAL OFFICER - 08/19/2023 8:00 AM EST Meagan Bolanos [...] PM EST TH Visit (TeleHealth) Endocrinology at [facility] [place] [address] Roxana Webb MD [facility] [place] [address] documented as of this encounter Procedures Procedure [...] Text Report Department: Vascular Surgery Lab Patient: [id number] (MEAGAN BOLANOS) CPT: [id number] Referring Physician: JESSICA PEREYRA ?? Indications: Persistent [...] VASCUBASE 08/27/2023 8:44 AM EST Jessica Pereyra APRN VASCULAR ORDERABLE S VASCUBASE * Differential, Automated (08/19/2023 9:51 AM EST) Neutrophil % 55.0 % [facility] Neutrophil Absolute 3.15 1.70 - 6.10 x10(3)/[facility] Lymph % 35.5 % [facility] Lymphocytes Abs 2.0 0.9 - 3.2 x10(3)/[facility] Monocyte % 8.6 % [facility] Monocyte Abs 0.5 0.3 - 0.9 x10(3)/[facility] Eos % 0.5 % [facility] Eosinophils Abs 0.0 0.0 - 0.4 x10(3)/[facility] Basophil % 0.2 % [facility] Baso Absolute 0.0 0.0 - 0.1 x10(3)/[facility] Immature Gran % 0.20 % [facility] Comment: Immature granulocytes(IG's)percentage and absolute count will include metamyelocytes, myelocytes, and promyelocytes. Blood smears from CBCs yielding IG's will be scanned manually for concordance. If this scan disagrees with the automated IG or if promyelocytes are noted, a manual differential will be performed. Immature Gran Absolute 0.01 0.00 - 0.04 x10(3)/[facility] Blood 08/19/2023 9:51 AM EST 08/19/2023 10:12 AM EST Narrative Resulting Agency Comment Spec In Lab Jessica Pereyra LIFE SCIENCE TECHNICAL OFFICER HEMATOLOGY ORDERAB LES Performing Organization Address City/State/[facility] Co de Phone Number [facility] [place] [address] * (ABNORMAL) Hemogram (08/19/2023 9:51 AM EST) White Blood Cell 5.7 4.0 - 9.5 x10(3)/mc L [facility] Red Blood Cell 4.64 4.00 - 5.21 x10(6)/ L [facility] Hemoglobin 11.5(L) 11.7 - 15.5 g/dL [facility] Hematocrit 36.2 35.7 - 45.8 % [facility] Mean Cell Volume 78.0(L) 82.6 - 94.4 fL [facility] Mean Cell Hemoglobin 24.8(L) 27.1 - 32.0 pg [facility] Mean Cell Hemoglobin Concentration 31.8 31.7 - 35.0 g/dL [facility] Platelet 257 145 - 357 x10(3)/mc L [facility] RDW Standard Deviation 36.3(L) 37.0 - 46.0 fL [facility] RDW coefficient of variation 12.8 11.5 - 14.1 % [facility] Mean Platelet Volume 10.4 7.6 - 12.9 fL [facility] NRBC% auto 0.0 % [facility] NRBC Absolute 0.000 0.000 - 0.000 x10(3)/mc L [facility] Blood 08/19/2023 9:51 AM EST 08/19/2023 10:12 AM EST Narrative Resulting Agency Comment Spec In Lab Jessica Pereyra LIFE SCIENCE TECHNICAL OFFICER HEMATOLOGY ORDERAB LES Performing Organization Address City/[facility]/ZIP Co de Phone Number [facility] [place] [address] * (ABNORMAL) Ferritin (08/19/2023 9:51 AM EST) Ferritin 10(L) 15 - 150 ng/mL [facility] Comment: Pediatric reference ranges not verified at [facility], interpret with caution. Reference ranges for females greater than 50 years of age approach values for men, i.e., 30-400 ng/mL. Blood 08/19/2023 9:51 AM EST 08/19/2023 10:12 AM EST Narrative Resulting Agency Comment Spec In Lab Jessica Pereyra LIFE SCIENCE TECHNICAL OFFICER CHEMISTRY ORDERABL ES Performing Organization Address City/[facility]/ZIP Co de Phone Number [facility] [place] [address] * Folate, serum (08/19/2023 9:51 AM EST) Folate 11.9 4.8 - 24.2 ng/mL [facility] Blood 08/19/2023 9:51 AM EST 08/19/2023 10:12 AM EST Narrative Resulting Agency Comment Spec In Lab Jessica Pereyra LIFE SCIENCE TECHNICAL OFFICER CHEMISTRY ORDERABL ES Performing Organization Address [facility] de Phone Number [facility] [place] [address] * (ABNORMAL) Iron and TIBC (08/19/2023 9:51 AM EST) Iron 60 30 - 150 mcg/dL [facility] TIBC 460(H) 250 - 450 mcg/dL [facility] Iron Saturation 13(L) 20 - 50 % [facility] Blood 08/19/2023 9:51 AM EST 08/19/2023 10:12 AM EST Narrative Resulting Agency Comment Spec In Lab Jessica Pereyra LIFE SCIENCE TECHNICAL OFFICER CHEMISTRY ORDERABL ES Performing Organization Address [facility] de Phone Number [facility] [place] [address] * Lipase (08/19/2023 9:51 AM EST) Lipase 57 0 - 60 unit/L [facility] Blood 08/19/2023 9:51 AM EST 08/19/2023 10:12 AM EST Narrative Resulting Agency Comment Spec In Lab Jessica Pereyra LIFE SCIENCE TECHNICAL OFFICER CHEMISTRY ORDERABL ES Performing Organization Address [facility] de Phone Number [facility] [place] [address] * (ABNORMAL) Comprehensive metabolic panel (non-fasting) (08/19/2023 9:51 AM EST) Glucose 86 65 - 199 mg/dL [facility] Comment:Diabetes: >=200 mg/d L plus symptoms Blood Urea Nitrogen 8 8 - 18 mg/dL [facility] Creatinine 0.78 0.70 - 1.20 mg/dL [facility] Sodium 140 135 - 145 mmol/L [facility] Potassium 4.2 3.5 - 5.0 mmol/L [facility] Comment: Please note: ??Patients with WBC >100,000 may have falsely elevated Potassium levels. ??For accurate Potassium quantification in these patients send serum separator tube (gold top) for subsequent determinations. ??Contact the Clinical Chemistry Laboratory if there are any questions. Chloride 104 98 - 107 mmol/L [facility] Carbon Dioxide 27 22 - 31 mmol/L [facility] Anion Gap 9 5 - 15 mmol/L [facility] Calcium 9.2 8.5 - 10.5 mg/dL [facility] Protein, Total 7.1 6.1 - 8.0 g/dL [facility] Albumin 4.4 3.2 - 5.2 g/dL [facility] Aspartate Aminotransferase 21 0 - 30 unit/L [facility] Alanine Aminotransferase 11 0 - 30 unit/L [facility] Alkaline Phosphatase 119(H) 35 - 105 unit/L [facility] Bilirubin, Total 0.4 0.2 - 1.3 mg/dL [facility] Est Glomerular Filtration Rate 93 >=60 mL/min/1. 73 m?? [facility] Comment: This patient's estimated GFR was [...] Agency Comment Spec In Lab Jessica Pereyra LIFE SCIENCE TECHNICAL OFFICER CHEMISTRY ORDERABL ES [facility] [place] [address] documented in this encounter Visit Diagnoses Diagnosis Pain of upper abdomen Abdominal pain, other specified site documented in this encounter Care Teams Manager Home Healthcare Relationship Specialty Start Date End Date Mike Goodman DNP [address] [place] [address] [place] [address] PCP - General Family Medicine 08/22/22 documented as of this encounter
--- OUTSIDE RECORDS SUMMARY | 2024-08-15 12:08 | XMS_ITS | Encounter Summary ---
Author Organization [facility] Address [facility] [place] [address] Care Team Providers Care Abrasive Grader Helper Name Role Phone Mike Goodman DNP Primary Care Provider Encounter Details Date Type Department Care Team (Late st Contact Info) Description 01/15/2024 8:30 AM EDT Office Visit Hematology/Oncology at [address] [phone] Leobardo Ricci MD [facility] [place] [address] Justa Lyons FILM REPLACEMENT ORDERER [address] [place] [address] DR MEDICAL ONCOLOGY [place], [place] [id number] Iron deficiency anemia due to chronic blood loss Social History Tobacco Use Types Packs/Day Years Used Date Smoking Tobacco: Former Cigarettes Q uit: 12/03/2003 Smokeless Tobacco: Never Alcohol Use Standard Drinks/Week Comments No 0 (1 standard drink = 0.6 oz pur e alcohol) [facility] Utilities Answer Date Recorded In the past 12 months has [employer], gas, oil, or water [employer] threatened to shut off services in [...] this encounter Progress Notes * Justa Lyons, FILM REPLACEMENT ORDERER - 01/15/2024 8:30 AM EDT Patient ID: Mora Bolanos is a 48 y.o. female. HPI Mora Bolanos is a 48yr old with iron deficiency anemia. She established care with the [facility] hematology clinic several months ago. She [...] life. She will reach back out to [facility] gastric [facility] nutrition team for advice on multiple nutritional deficiencies. Plan: - repeat CBC and ferritin in 3mos to ensure stability - monoferric infusions as needed Call with concerns or problems in the interim documented in this encounter Plan of Treatment Upcoming Encounters Date Type Department Care Team (Late st Contact Info) Description 08/23/2024 3:30 PM EST TH Visit (TeleHealth) [place] [address] Roxana Webb MD [facility] [place] [address] documented as of this encounter Procedures Procedure [...] (chronic) documented in this encounter Care Teams Abrasive Grader Helper Relationship Specialty Start Date End Date Mike Goodman DNP [address] [place] [address] PCP - General Family Medicine 08/22/22 documented as of this encounter
--- OUTSIDE RECORDS SUMMARY | 2024-08-15 12:08 | XMS_ITS | Encounter Summary ---
Author Organization [facility] [place] [address] Care Team Providers Care Director Of Residential Services Name Role Phone Mike Goodman KYLE Primary Care Provider [phone] Reason for Visit * Reason Comments Genetic Evaluation * Consultation (Routine) - Closed Specialty Diagnoses / Procedures Referred By Martha broussard Referred To Contact Genetics Diagnoses Family history of ovarian cancer Jaimee Maki, [facility] [address] [facility] [address] [place] [address] Referral ID Status Reason Start Date Expiration Date V isits Requested Visits Authorized [id number] Closed Consult, Test & Treat 06/17/2023 06/16/2024 1 1 Encounter Details Date Type Department Care Team (Late st Contact Info) Description 10/01/2023 1:00 PM EST Office Visit [place]ematology [place] [address] Justa Jackson, [facility] [place] [address] Family history of ovarian cancer; Family hx of colon cancer; Family history of malignant neoplasm of breast; Family history of genetic disease carrier Social History Tobacco Use Types Packs/Day Years Used Date Smoking Tobacco: Former Cigarettes Q uit: 12/03/2003 Smokeless Tobacco: Never Alcohol Use Standard Drinks/Week Comments No 0 (1 standard drink = 0.6 oz pur e alcohol) [facility] Utilities Answer Date Recorded In the [...] copy to us through our email at [email or web address] or via a [employer] message. Family History of Cancer Problem Relation [...] Paternal Aunt There is no known Ashkenazi Sabianism ancestry. Genetic risk assessment Based on the [...] at [email or web address]. Mora opted for testing with [facility] CancerNext-Expanded Panel, a next generation sequencing panel that simultaneously analyzes 77 genes, including BRCA1/BRCA2 and polyposis syndromes, that contribute to increased risk for cancer. Mora was consented. Her blood sample was drawn and sent to [facility]. We reviewed [facility]'s billing policy. Mora will be notified by text and/or email once Daksha completes their benefits investigation if her estimated out of pocket cost is over $100. At that time, ifMora is concerned about the estimated test cost she will have the option to contact [facility] directly and either apply for [facility]'s patient assistance program to try and reduce cost of testing based on income information, cancel testing, or switch to a self-pay option of $250. If Mora does not respond to [facility], testing will be billed to her insurance [...] PM EST TH Visit (TeleHealth) [place] [address] Roxana Webb MD [facility] [place] [address] Scheduled Referrals Name Type Priority Associated Diagnoses [...] carrier documented in this encounter Care Teams Director Of Residential Services Relationship Specialty Start Date End Date Mike Goodman DNP [address] [place] [address] PCP - General Family Medicine 08/22/22 documented as of this encounter
--- OUTSIDE RECORDS SUMMARY | 2024-08-15 12:08 | XMS_ITS | Encounter Summary ---
Author Organization [facility] [place] [address] Care Team Providers Care Rn Integrity Name Role Phone Mike Goodman KYLE Primary Care Provider +1 [phone] Reason for Visit * Diagnostic Test (Routine) - Closed Specialty Diagnoses / Procedures Referred By Martha broussard Referred To Contact Diagnoses Pain of upper abdomen Procedures Duplex Study Visceral Arteries, Comp Eusebio Pererya, BELL TIER [facility] [place] [address] [facility] Vascular Lab [address] [address] Referral ID Status Reason Start Date Expiration Date V isits Requested Visits Authorized [id number] Closed Specialty Service Requested 08/19/2023 08/18/2024 1 1 Encounter Details Date Type Department Care Team (Late st Contact Info) Description 08/27/2023 9:00 AM [facility] Tech [place] [address] Niyah Coppola, RVT Pain of [...] PM EST TH Visit (TeleHealth) [place] [address] Roxana Webb MD [facility] [place] [address] documented as of this encounter Procedures Procedure Name Priority Date/Time Associated Diagnosis Comments MESENTERIC COMPLETE Routine 08/27/2023 8 :44 AM EST Pain of upper abdomen documented in this encounter Results * Duplex Study Visceral Arteries, Comp (08/27/2023 8:44 AM EST) VB Text Report Department: Vascular Surgery Lab Patient: [id number] (MORA BOLANOS) CPT: [id number] Referring Physician: EUSEBIO PEREYRA ?? Indications: Persistent [...] VASCUBASE 08/27/2023 8:44 AM EST Eusebio Pereyra APRN VASCULAR ORDERABLE S Performing Organization Address City/State/[facility] Co de Phone Number VASCUBASE documented in this encounter Visit Diagnoses Diagnosis Pain of upper abdomen Abdominal pain, other specified site documented in this encounter Care Teams Rn Integrity Relationship Specialty Start Date End Date Mike Goodman DNP [address] [address] PCP - General Family Medicine 08/22/22 documented as of this encounter
--- OUTSIDE RECORDS SUMMARY | 2024-08-15 12:08 | XMS_ITS | Encounter Summary ---
Author Organization [facility] Address [facility] [place] [address] Care Team Providers Care Auto Finance Sales Rep Name Role Phone Mike Goodman KYLE Primary Care Provider Reason for Visit * Consultation (Routine) - Closed Specialty Diagnoses / Procedures Referred By Martha broussard Referred To Contact Hematology and Oncology Diagnoses Iron deficiency anemia, unspecified iron deficiency anemia type Senait Rico, [facility] [place] [address] [address] Hem Onc Office [address] [place] [phone] Referral ID Status Reason Start Date Expiration Date V isits Requested Visits Authorized [id number] Closed Consult, Test & Treat 09/10/2023 09/09/2024 1 1 Encounter Details Date Type Department Care Team (Late st Contact Info) Description 10/16/2023 11:00 AM EST Office Visit Hematology/Oncology at [address] [address] Leobardo Ricci MD [facility] HEMATOLOGY [place] [address] Blanca Lobo, [facility] [place] [address] Iron deficiency anemia due to chronic blood loss Social History Tobacco Use Types Packs/Day Years Used Date Smoking Tobacco: Former Cigarettes Q uit: 12/03/2003 Smokeless Tobacco: Never Alcohol Use Standard Drinks/Week Comments No 0 (1 standard drink = 0.6 oz pur e alcohol) [facility] Utilities Answer Date Recorded In [...] Patient Medical Oncology Note SOCIAL ASSESSMENT: See [facility] social assessment information entered. 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
--- OUTSIDE RECORDS SUMMARY | 2024-08-15 12:08 | XMS_ITS | Encounter Summary ---
[place] [address] Care Team Providers Care Housing Development Specialist Name Role Phone Mike Goodman DNP Primary Care Provider Encounter Details Date Type Department Care Team (Latest Contact Info) Description 03/01/2024 2:40 PM EDT Laboratory Appointment Lab [address] [address] Vitamin D deficient osteomalacia Social History Tobacco Use Types Packs/Day Years Used Date Smoking Tobacco: Former Cigarettes Q uit: 12/03/2003 Smokeless Tobacco: Never Alcohol Use Standard Drinks/Week Comments No 0 (1 standard drink = 0.6 oz pur e alcohol) [facility] Utilities Answer Date Recorded In the past 12 months has e electric, gas, oil, or water [employer] threatened to shut off services in your [...] PM EST TH Visit (TeleHealth) [place] [address] Roxana Webb MD [facility] [place] [address] documented as of this encounter Procedures Procedure [...] 25 OH 18(L) 21 - 100 ng/mL [facility] Vit D Interp Deficient [facility] Blood 03/01/2024 3:28 PM EDT 03/01/2024 3:48 PM EDT Narrative Resulting Agency Comment Spec In Lab Piotr Carolina MD CHEMISTRY ORDERABLES Performing Organization Address City/State/[facility] Co de Phone Number [facility] [place] [address] * 1,25-dihydroxycholecalciferol (03/01/2024 3:28 PM EDT) [facility] Vit D 1,25 Dihydroxy (JANUARY) 37 18 - 78 pg/mL [facility] Comment: ADDITIONAL INFORMATION This test was developed and its performance characteristics determined by [facility] in a manner consistent with CLIA requirements. This test has not been cleared or approved by the U.S. Food and Drug Administration. Test Performed by: [facility] - [address] [address] Vice President Of Consulting Services: Talat Meier Ph.D.; CLIA# [id number] Blood 03/01/2024 3:28 PM EDT 03/02/2024 2:38 PM EDT Narrative Resulting Agency Comment Spec In Lab Piotr Carolina MD LAB SEND OUT ORDERAB LES [facility] [place] [address] * (ABNORMAL) Comprehensive metabolic panel (non-fasting) (03/01/2024 3:28 PM EDT) Glucose 91 65 - 199 mg/dL [facility] Comment:Diabetes: >=200 mg/d L plus symptoms Blood Urea Nitrogen 6(L) 8 - 18 mg/dL [facility] Creatinine 0.78 0.70 - 1.20 mg/dL [facility] Sodium 143 135 - 145 mmol/L [facility] Potassium 4.2 3.5 - 5.0 mmol/L [facility] Comment: Please note: ??Patients with WBC >100,000 may have falsely elevated Potassium levels. ??For accurate Potassium quantification in these patients send serum separator tube (gold top) for subsequent determinations. ??Contact the Clinical Chemistry Laboratory if there are any questions. Chloride 104 98 - 107 mmol/L [facility] Carbon Dioxide 28 22 - 31 mmol/L [facility] Anion Gap 11 5 - 15 mmol/L [facility] Calcium 9.3 8.5 - 10.5 mg/dL [facility] Protein, Total 6.6 6.1 - 8.0 g/dL [facility] Albumin 4.1 3.2 - 5.2 g/dL [facility] Aspartate Aminotransferase 25 0 - 30 unit/L [facility] Alanine Aminotransferase 23 0 - 30 unit/L [facility] Alkaline Phosphatase 111(H) 35 - 105 unit/L [facility] Bilirubin, Total 0.3 0.2 - 1.3 mg/dL [facility] Est Glomerular Filtration Rate 93 >=60 mL/min/1. 73 m?? [facility] Comment: This patient's estimated [...] Carolina MD CHEMISTRY ORDERABLES Performing Organization Address City/[facility]/ZIP Co de Phone Number [facility] [place] [address] * Phosphorus (03/01/2024 3:28 PM EDT) Phosphorus 3.9 2.5 - 4.5 mg/dL [facility] Blood 03/01/2024 3:28 PM EDT 03/01/2024 3:48 PM EDT Narrative Resulting Agency Comment Spec In Lab Piotr Carolina MD CHEMISTRY ORDERABLES Performing Organization Address City/[facility]/ZIP Co de Phone Number [facility] [place] [address] * (ABNORMAL) PTH (03/01/2024 3:28 PM EDT) Parathyroid Hormone 76(H) 15 - 65 pg/mL [facility] Blood 03/01/2024 3:28 PM EDT 03/01/2024 3:48 PM EDT Narrative Resulting Agency Comment Spec In Lab Piotr Carolina MD CHEMISTRY ORDERABLES Performing Organization Address City/[facility]/ZIP Co de Phone Number [facility] [place] [address] documented in this encounter Visit Diagnoses Diagnosis Vitamin D deficient osteomalacia Osteomalacia, unspecified documented in this encounter Care Teams Housing Development Specialist Relationship Specialty Start Date End Date Mike Goodman DNP [address] [place] [address] PCP - General Family Medicine 08/22/22 documented as of this encounter
--- OUTSIDE RECORDS SUMMARY | 2024-08-15 12:08 | XMS_ITS | Encounter Summary ---
Author Organization [facility] Address [facility] [place] [address] Care Team Providers Care Winch Stripper Name Role Phone Mike Goodman DNP Primary Care Provider [phone] Encounter Details Date Type Department Care Team [...] EST TH Visit (TeleHealth) [place] [address] Roxana Webb MD [facility] [place] [address] documented as of this encounter Visit Diagnoses Not on filedocumented in this encounter Care Teams Winch Stripper Relationship Specialty Start Date End Date Mike Goodman DNP [address] [place] [address] PCP - General Family Medicine 08/22/22 documented as of this encounter
--- OUTSIDE RECORDS SUMMARY | 2024-08-15 12:08 | XMS_ITS | Encounter Summary ---
Author Organization [facility] Address [facility] [place] [address] Care Team Providers Care Gaming Host Name Role Phone Mike Goodman DNP Primary Care Provider [phone] Encounter Details Date Type Department Care Team [...] PM EST TH Visit (TeleHealth) [place] [address] Roxana Webb MD [facility] [place] [address] documented as of this encounter Visit Diagnoses Not on filedocumented in this encounter Care Teams Gaming Host Relationship Specialty Start Date End Date Mike Goodman DNP [address] [place] [address] PCP - General Family Medicine 08/22/22 documented as of this encounter
--- OUTSIDE RECORDS SUMMARY | 2024-08-15 12:08 | XMS_ITS | Encounter Summary ---
[place] [address] Care Team Providers Care Marine Extension Agent Name Role Phone Mike Goodman KYLE Primary Care Provider [phone] Reason for Visit * Consultation (Routine) - Closed Specialty Diagnoses / Procedures Referred By Martha broussard Referred To Contact Endocrinology Diagnoses Vitamin D deficiency Senait Rico, FLOOR COVERER APPRENTICE [facility] [place] [address] [facility] Endocrinology [address] [place] [phone] Referral ID Status Reason Start Date Expiration Date V isits Requested Visits Authorized [id number] Closed Consult, Test & Treat 09/10/2023 09/09/2024 1 1 Encounter Details Date Type Department Care Team (Latest Contact Info) Description 10/01/2023 3:00 PM EST Office Visit [place] [address] Piotr Carolina MD 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 Referral: Senait Rico APRN [facility] SURGERY [place] [id number] Chief Complaint: Secondary hyperparathyroidism due to malabsorption following Analia-en-Y bypass HPI: The patient is a very pleasant 48-year-old woman who underwent Analia-en-Y bypass with partial gastrectomy in part due [...] and has undergone a DEXA scan in [facility] in November 2022 which showed osteopenia [...] me. Sincerely, Piotr Carolina MD Endocrinology Section [facility] Total time for this visit encompassing extensive and thorough chart review and previsit planning aswell as examination counseling and education of the patient and coordination of care = 75 minutes. documented in this encounter Plan of Treatment Upcoming Encounters Date Type Department Care Team (Late st Contact Info) Description 08/23/2024 3:30 PM EST TH Visit (TeleHealth) [place] [address] Roxana Webb MD [facility] [place] [address] documented as of this encounter Results * (ABNORMAL) PTH (10/01/2023 3:56 PM EST) Parathyroid Hormone 71(H) 15 - 65 pg/mL [facility] Blood 10/01/2023 3:56 PM EST 10/01/2023 4:07 PM EST Narrative Resulting Agency Comment Spec In Lab Piotr Carolina MD CHEMISTRY ORDERABLES [facility] [place] [address] * Phosphorus (10/01/2023 3:56 PM EST) Phosphorus 3.4 2.5 - 4.5 mg/dL [facility] Blood 10/01/2023 3:56 PM EST 10/01/2023 4:07 PM EST Narrative Resulting Agency Comment Spec In Lab Piotr Carolina MD CHEMISTRY ORDERABLES Performing Organization Address City/[facility]/ZIP Co de Phone Number [facility] [place] [address] * Calcium (10/01/2023 3:56 PM EST) Calcium 9.8 8.5 - 10.5 mg/dL [facility] Blood 10/01/2023 3:56 PM EST 10/01/2023 4:07 PM EST Narrative Resulting Agency Comment Spec In Lab Piotr Carolina MD CHEMISTRY ORDERABLES Performing Organization Address 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
--- OUTSIDE RECORDS SUMMARY | 2024-08-15 12:09 | XMS_ITS | Encounter Summary ---
Author Organization [facility] [place] [address] Care Team Providers Care Professional Development Director Name Role Phone Mike Goodman DNP Primary Care Provider [phone] Reason for Visit * Diagnostic Test (Routine) - Closed Specialty Diagnoses / Procedures Referred By Martha broussard Referred To Contact Gastroenterology Diagnoses Heartburn HREM - regurgitation see also ph imp Procedures High Resolution Esophageal Manometry PRG ESOPHAGEAL MOTILITY STUDY PRG GERD TST W NASAL IMPEDENCE ELECTROD Dinesh Lyle MD [facility] [place] [address] [facility] [address] [place] [address] Referral ID Status Reason Start Date Expiration Date V isits Requested Visits Authorized [id number] Closed Test Only 04/23/2023 04/22/2024 1 1 Encounter Details Date Type Department Care Team (Late st Contact Info) Description 04/29/2023 10:00 AM EDT Office [place] [address] Heartburn Social History Tobacco Use Types Packs/Day [...] pH/impedance procedure report Patient: Mora Bolanos Address: [address] [place] [address] [place] [address] : 1975 Referring provider: Dinesh Lyle I [...] the Dumont Consensus. Gut. 2018 Mar; 67(7): 0700-6540. 2) Validation of the Dumont classification for GORD diagnosis: acid exposure time assessed by prolonged wireless pH monitoring in healthy controls and patients with erosive oesophagitis. Gut. 2020. doi10.1136/qtjodq-[id number]. Dennis Caceres MD, FRCPC Section of Gastroenterology and Hepatology [facility] [place] [address] V: [phone] F: [phone] CC/EC: Mike Goodman, [facility] [address] [place] [address] * Dennis Caceres MD - 04/29/2023 10:00 AM EDT Images from the original note were not included. HIGH-RESOLUTION ESOPHAGEAL MANOMETRY PROCEDURE NOTE Patient: Mora Bolanos Address: [address] [place] [address] [place] [address] : 1975 Date of service: 04/29/2023 Indication: [...] relaxation pressure: 0 mmHg (normal <12 mmHg) [place] swallow: Impressions based on [place] Classification v4.0: No evidence of a clinically significant disorder of peristalsis or EGJ outflow obstruction. *These findings assume that mechanical obstruction has been ruled out. Dennis Caceres MD, FRCPC Section of Gastroenterology and Hepatology [facility] [place] [address] V: [phone] F: [phone] CC/EC: Mike Goodman DNP [address] [place] [address] documented in this encounter Plan of Treatment Upcoming Encounters Date Type Department Care Team (Late st Contact Info) Description 08/23/2024 3:30 PM EST TH Visit (TeleHealth) [place] [address] Roxana Webb MD [facility] [place] [address] documented as of this encounter Visit Diagnoses Diagnosis Heartburn documented in this encounter Care Teams Professional Development Director Relationship Specialty Start Date End Date Mike Goodman DNP [address] [place] [address] PCP - General Family Medicine 08/22/22 documented as of this encounter
--- OUTSIDE RECORDS SUMMARY | 2024-08-15 12:09 | XMS_ITS | Encounter Summary ---
[place] [address] Care Team Providers Care Business Insight And Analytics Manager Name Role Phone Mike Goodman KYLE Primary Care Provider [phone] Reason for Referral * Consultation (Routine) - Closed Specialty Diagnoses / Procedures Referred By Martha broussard Referred To Contact Genetics Diagnoses Anal fissure Family hx of colon cancer Rehana Solorio APRN [address] [place] [address] [facility] Hem Onc [address] [place] [address] Referral ID Status Reason Start Date Expiration Date V isits Requested Visits Authorized [id number] Closed Consult, Test & Treat PCP Updated and/or Approved 03/07/2023 03/06/2024 1 1 Encounter Details Date Type Department Care Team (Late st Contact Info) Description 03/07/2023 Transcribe Orders eDH Incoming Referrals [phone] Rehana Solorio APRN [address] [place] [address] Anal fissure; Family hx of [...] PM EST TH Visit (TeleHealth) [place] [address] Roxana Webb MD [facility] [place] [address] Scheduled Referrals Name Type Priority Associated Diagnoses Orde r Schedule Referral to Familial Cancer Outpatient Referral Routine Anal fissure Family hx of colon cancer Ordered: 03/07/2023 documented as of this encounter Visit Diagnoses Diagnosis Anal fissure Family hx of colon cancer Family history of malignant neoplasm of gastrointestinal tract documented in this encounter Care Teams Business Insight And Analytics Manager Relationship Specialty Start Date End Date Mike Goodman DNP [address] [place] [address] PCP - General Family Medicine 08/22/22 documented as of this encounter
--- OUTSIDE RECORDS SUMMARY | 2024-08-15 12:09 | XMS_ITS | Encounter Summary ---
Author Organization [facility] [place] [address] Care Team Providers Care Polisher Dial Name Role Phone Mike Goodman DNP Primary Care Provider Encounter Details Date Type Department Care Team (Late st Contact Info) Description 09/19/2022 Ancillary Procedure Radiology Library at [facility] [place] [address] Mike Goodman DNP [address] [place] [address] Social History Tobacco Use Types Packs/Day Years [...] PM EST TH Visit (TeleHealth) Endocrinology at [facility] [place] [address] Roxana Webb MD [facility] [place] [address] documented as of this encounter Procedures Procedure Name Priority Date/Time Associated Diagnosis Comments FILM LIBRARY-STORAGE ONLY US BREAST Routine 09/19/2022 12:00 AM EST documented in this encounter Results * Film Library Storage Only US Breast (09/19/2022 12:00 AM EST) Narrative RAD - 12/13/2022 8:55 AM EDT This exam is auto-finalizing. It's purpose is for storage only. Mike Goodman DNP IM FILM LIBRARY OR DERABLES Performing Organization Address City/State/[facility] Co de Phone Number [place], [place] documented in this encounter Visit Diagnoses Not on filedocumented in this encounter Care Teams Polisher Dial Relationship Specialty Start Date End Date Mike Goodman DNP [address] [place] [address] PCP - General Family Medicine 08/22/22 documented as of this encounter
--- OUTSIDE RECORDS SUMMARY | 2024-08-15 12:09 | XMS_ITS | Encounter Summary ---
Author Organization [facility] [place] [address] Care Team Providers Care Bill Checker Name Role Phone Mike Goodman DNP Primary Care Provider Reason for Visit * (Routine) - Closed Specialty Diagnoses / Procedures Referred By Martha broussard Referred To Contact Radiology Diagnoses Mass of right breast, unspecified quadrant Procedures Request for 2nd read Mammo Mike Goodman DNP [address] [place] [address] Referral ID Status Reason Start Date Expiration Date Visits Re quested Visits Authorized [id number] Closed 12/13/2022 12/13/2023 1 1 Encounter Details Date Type Department Care Team (Latest Contact Info) Description 12/13/2022 9:15 AM EDT Ancillary Procedure Radiology Library at [facility] [place] [address] Mike Goodman DNP [address] [place], [place] [address] Mass of right breast, unspecified quadrant Social [...] PM EST TH Visit (TeleHealth) Endocrinology at [facility] [place] [address] Roxana Webb MD [facility] [place] [address] documented as of this encounter Procedures Procedure [...] asked to consult on this patient by Dr. Goodman, Hawa Mckeon because he/she believes a review of this study may change or alter the care of this patient. STUDIES FROM: [facility], [place], [place] CLINICAL HISTORY: As per Outside report: [...] breast. . ?Bx, more imaging; Sending Institution [facility]; Date of exam [id number]; I believe [...] to prior imaging, including bilateral mammograms from [place], [place] ??02/17/2019, 10/01/2017, Right breast ultrasound 10/01/2017. [...] cancers. Please note: The interpretation of the [facility] Breast Imaging Radiologist subspecialist may differ from the original radiologists interpretation. This is usually not due to a deficiency of the original interpreting radiologist, rather due to the greater skill level afforded by sub-specialization in the field and/or reasonable variations in interpretations. If you have a concern regarding the D-H interpretation you may contact the [facility] Breast Senior Service Aide Office at . Thank you for letting us participate in the care of this patient. ??If you are a health care provider and have any questions regarding this report, please contact the number below. ??For patients who have questions please contact the health resident caregiver that requested your imaging first. ? Electronically signed by: Maria Alejandra Aparicio MD, [facility] ([phone]), at 12/15/2022 3:01 PM Procedure Note Maria Alejandra Aparicio MD - 12/15/2022 INTERPRETATION OF OUTSIDE BREAST IMAGING I have been asked to consult on this patient by Mike Melissa Degebecause he/she believes a review of this study may change or alter the care ofthis patient. STUDIES FROM: [place], [place] CLINICAL HISTORY: As per Outside report: [...] lumpy breast. . ?Bx,more imaging; Sending Institution [facility]; Date of exam [id number]; I believe [...] compared to prior imaging, including bilateralmammograms from [place] 02/17/2019, 10/01/2017, Rightbreast ultrasound 10/01/2017. BREAST [...] cancers. Please note: The interpretation of the [facility] BreastImaging Radiologist subspecialist may differ from the original radiologists interpretation. This is usually not due to a deficiency of the original interpreting radiologist, rather due to the greater skill level affordedby sub-specialization in the field and/or reasonable variations ininterpretations. If you have a concern regarding the D-H interpretation [facility] may [facility] at . Thank you for letting us participate in the care of this patient. If youare a health care provider and have any questions regarding this report,please contact the number below. For patients who have questions please contactthe health resident caregiver that requested your imaging first. Electronically signed by: Maria Alejandra Aparicio MD, [facility] ([phone]), at 12/15/2022 3:01 PM Mike Goodman DNP IMG OUTSIDE INTERPR ETATION ORDERABLES documented in this encounter Visit Diagnoses Diagnosis Mass of right breast, unspecified quadrant documented in this encounter Care Teams Bill Checker Relationship Specialty Start Date End Date Mike Goodman DNP [address] [place] [address] [place] [address] PCP - General Family Medicine 08/22/22 documented as of this encounter
--- OUTSIDE RECORDS SUMMARY | 2024-08-15 12:09 | XMS_ITS | Encounter Summary ---
Author Organization [facility] [place] [address] Care Team Providers Care Entry Specialist Name Role Phone Mike Goodman DNP Primary Care Provider [phone] Encounter Details Date Type Department Care Team [...] PM EST TH Visit (TeleHealth) [place] [address] Roxana Webb MD [facility] [place] [address] documented as of this encounter Visit Diagnoses Not on filedocumented in this encounter Care Teams Entry Specialist Relationship Specialty Start Date End Date Mike Goodman DNP [address] [place] [address] PCP - General Family Medicine 08/22/22 documented as of this encounter
--- OUTSIDE RECORDS SUMMARY | 2024-08-15 12:09 | XMS_ITS | Encounter Summary ---
[place] [address] Care Team Providers Care Mortar Mixer Operator Name Role Phone Mike Goodman DNP Primary Care Provider [phone] Encounter Details Date Type Department Care Team (Late st Contact Info) Description 04/25/2023 Telephone [place] [address] Michael Sorensen Social History Tobacco Use Types [...] calls can be handled by: Motility Lab Clin Tech documented in this encounter Plan of Treatment Upcoming Encounters Date Type Department Care Team (Late st Contact Info) Description 08/23/2024 3:30 PM EST TH Visit (TeleHealth) [place] [address] Roxana Webb MD [facility] [place] [address] documented as of this encounter Visit Diagnoses Not on filedocumented in this encounter Care Teams Mortar Mixer Operator Relationship Specialty Start Date End Date Mike Goodman DNP [address] [place] [address] PCP - General Family Medicine 08/22/22 documented as of this encounter
--- OUTSIDE RECORDS SUMMARY | 2024-08-15 12:09 | XMS_ITS | Encounter Summary ---
Author Organization [facility] [place] [address] Care Team Providers Care Superintendent Warehouse Name Role Phone Mike Goodman DNP Primary Care Provider [phone] Reason for Visit * Auth/Cert (Routine) Specialty [...] GI ENDOSCOPY (WRVU 2.09) Sheridan Mosher MD [facility] [place] [address] [facility] Referral ID Status Reason Start Date Expiration Date Visits Re quested Visits Authorized [id number] 1 1 Encounter Details Date Type Department Care Team (Latest Contact Info) Description 07/16/2023 5:55 AM EDT - 07/16/2023 1:17 PM EDT Hospital Encounter [place] [id number] Sheridan Mosher MD [facility] [place] [address] Discharge Disposition: Home Social History Tobacco Use [...] Medrano MD - 07/16/2023 9:21 AM EDT [facility] Department of GeneralSurgery Discharge Instructions CALL [...] with the Surgery nurses. The number is [phone]. - During the night or weekends call the [facility] clay dry press operator at [phone] and ask to speak to the surgery resident blood bank calendar control clerk for general surgery. Please note: Your surgeon may not be [employer], especially during the night or on weekends, so be ready to describe yourself and your surgery when you call. Follow up appointments: Future Appointments Date Time Provider Department Center 07/29/2023 6:30 PM [facility] MR 6 MH MRI [facility] Rad 08/12/2023 10:30 AM Jessica Tyler APRN [facility] SURG [facility] [x] Follow-up appointment with General Surgery has already been scheduled. Please call the clinic at [phone] to confirm or reschedule. documented in this [...] day 08/19/2023 documented as of this encounter Progress Notes [...] Rader MD - 07/16/2023 8:04 AM EDT [facility] Operative Note Patient Name: Mora Bolanos : [id number] MR#: [id number] Case Date: 07/16/2023 Surgeon: Surgeon(s) and Role: [...] PM EST TH Visit (TeleHealth) [place] [address] Roxana Webb MD [facility] [place] [place] [address] documented as of this encounter Procedures Procedure Name Priority Date/Time Associated Diagnosis Comments Upper GI Endoscopy, Diagnostic (99839) Yes 07/16/2023 7:30 AM EDT possible internal Lap, Dx Surgical Abd W/Biopsy (93617) Yes 07/16/2023 7:30 AM EDT possible internal POCT GLUCOSE Routine 07/16/2023 6:23 AM EDT UPPER GI ENDOSCOPY Routine 07/16/2023 6: 05 AM EDT LAPAROSCOPY,SURGICAL ,WITH BIOPSY, SINGLE OR MULTIPLE Routine 07/16/2023 6:05 AM EDT documented in this encounter Results * POCT Glucose (07/16/2023 6:23 AM EDT) Glucose, POC 82 65 - 199 mg/dL [facility] Comment: Supplemental ranges: <140 mg/dL before meals <180 mg/dL all other times of the day Blood 07/16/2023 6:23 AM EDT 07/16/2023 6:23 AM EDT Sheridan Mosher MD POINT OF CARE TEST O RDERABLES [facility] [place] [address] documented in this encounter Visit Diagnoses Not [...] Day of Surgery (Day of Procedure), Routine 07 (Given - Provid er: Alexandra Rubi RN) [...] Routine documented in this encounter Care Teams Superintendent Warehouse Relationship Specialty Start Date End Date Mike Goodman DNP [address] [place] [address] PCP - General Family Medicine 08/22/22 documented as of this encounter
--- OUTSIDE RECORDS SUMMARY | 2024-08-15 12:09 | XMS_ITS | Encounter Summary ---
[place] [address] Care Team Providers Care Smoke Jumper Name Role Phone Laura Ross LOUIE Primary Care Provider [phone] Reason for Visit * Auth/Cert Specialty Diagnoses / Procedures Referred By Martha broussard Referred To Contact Diagnoses GERD (gastroesophageal reflux disease) GERD Procedures PRO UPPER GI ENDOSCOPY, DIAGNOSTIC PRO UPPER GI ENDOSCOPY, BIOPSY PRO UP GI ENDOSCOPY, REMV TUMOR, SNARE EGD, UPPER GI ENDOSCOPY Referral ID Status Reason Start Date Expiration Date Visits Re quested Visits Authorized [id number] 1 1 Encounter Details Date Type Department Care Team (Late Contact Info) Description 01/08/2021 3:00 PM EDT - 01/08/2021 3:45 PM EDT Surgery [place] [address] Sheridan Cassidy MD [facility] [place] [address] EGD, UPPER GI ENDOSCOPY (WRVU 2.09) Social [...] the day after the procedure, use an unbt-yyu-xjrhfsa spray to numb your throat. Sucking on [...] occurs, please contact your Doctor. Please call [phone] before 8pm Mon-Fri with problems, questions or concerns. If you call after 8pm or on weekends, call the Hospital at [phone] and ask to speak to the Claims Coordinator eight section blower and the felled seam operator chainstitch will contact that person for you. When should you call for help? Call 101 anytime you think you may need emergency [...] After Visit Summary and more online at [email or web address] If you would like to provide [...] cost to you. Content Version: 12.2 ?? [id number] [employer]. Care instructions adapted under license by [facility]. If you have questions about a medical condition or this instruction, always ask your healthcare professional. [employer] disclaims any warranty or liability for your [...] 1 tablet by mouth as needed. 05/03/2024 omeprazole (PriLOSEC) 40 mg Capsule, Delayed Release(E.C.) Take 1 capsule by mouth 2 times daily. 60 capsule 11 01/02/2021 01/02/2022 documented as of this encounter H&P Notes * Lainey Eng MD - 01/08/2021 3:17 PM EDT [facility] Minimally Invasive Surgery Interval History and Physical [...] tried a number of PPIs and other knrg-zwp-uposrjc meds totry to combat her symptoms with [...] FUNDOPLASTY performed by Sheridan Cassidy MD at [facility] OR ??? PRO LAP, ESOPHAGUS, OTHER PROC N/A 11/26/2017 LAPAROSCOPIC REVISION OF GABRIELLA FUNDOPLASTY (WRVU *) performed by Sheridan Cassidy MD at [facility] MA[facility] OR ??? PRO LAP, STOMACH, OTHER, W/O TUBE N/A 11/26/2017 LAPAROSCOPIC GASTRECTOMY, PARTIAL, W EVIN-EN-Y RECONSTRUCTION (WRVU *) performed by Sheridan Cassidy MD at [facility] MA[facility] OR ??? PRO UPPER GI ENDOSCOPY, BIOPSY 09/04/2012 EGD WITH BIOPSY performed by Didier Jones MD at [facility] ENDOSCOPY ??? PRO UPPER GI ENDOSCOPY, BIOPSY N/A 07/22/2016 UPPER GASTROINTESTINAL ENDOSCOPY,WITH BIOPSY SINGLE OR MULTIPLE performed by Sheridan Cassidy MD [facility] ENDOSCOPY ??? PRO UPPER GI ENDOSCOPY, BIOPSY N/A 10/20/2017 EGD WITH BIOPSY (WRVU 2.49) performed by Sheridan Cassidy MD at [facility] ENDOSCOPY ??? PRO UPPER GI ENDOSCOPY, BIOPSY N/A 03/09/2018 EGD WITH BIOPSY (WRVU 2.49) performed by Sheridan Cassidy MD at [facility] ENDOSCOPY ??? PRO UPPER GI ENDOSCOPY, DIAGNOSTIC 11/25/2012 ENDOSCOPY, UPPER GI, DIAGNOSTIC, WITH OR WITHOUT SPECIMENS performed by Sheridan Cassidy MD at [facility] OR ??? PRO UPPER GI ENDOSCOPY, DIAGNOSTIC 07/18/2014 EGD, UPPER GI ENDOSCOPY performed by Sheridan Cassidy MD at [facility] ENDOSCOPY ??? PRO UPPER GI ENDOSCOPY, DIAGNOSTIC N/A 11/26/2017 ENDOSCOPY, UPPER GI, DIAGNOSTIC, WITH OR WITHOUT SPECIMENS performed by Sheridan Cassidy MD at [facility] OR ??? UPPER GI ENDOSCOPY, EXAM 09/04/2012 UPPER GI ENDOSCOPY performed by Didier Jones MD at [facility] ENDOSCOPY No current facility-administered medications on file [...] Gatherings with Friends and Family: ??? Attends [employer] Services: ??? Active Member of Clubs or [...] at [facility] [place] [address] Roxana Webb MD [facility] [place] [address] documented as of this encounter Procedures Procedure Name Priority Date/Time Associated Diagnosis Comments Upper GI Endoscopy, Diagnostic (93785) 01/08/2021 3:35 PM EDT GERD UPPER GI ENDOSCOPY Routine 01/08/2021 3: 12 PM EDT documented in this encounter Results * UPPER GI ENDOSCOPY (01/08/2021 3:12 PM EDT) [facility] UPPER GI ENDOSCOPY [facility] Endoscopy Procedure Date: 01/08/2021 3:12 PM ? Patient Name: Mora Bolanos ? Date of : 1975 ? Age: 45 ? Order #: [id number] ? Instrument Name: [id number] ? Procedure: ? Upper GI endoscopy Indications: [...] the physician, the nurse and the ? civil drafting technician in the pre-procedure area ? in [...] appearing mucosa. This was ? traversed. The rfjek-ff-gppppzk limb was ? characterized by healthy appearing [...] Procedure Code(s): ?? --- Professional --- ? 10184, Esophagogastroduod enoscopy, ? flexible, transoral; diagnostic, ? including collection of specimen(s) ? by brushing or washing, when ? performed (separate procedure) CPT copyright 2019 [employer]. All rights reserved. The codes documented in this report are preliminary and upon wood boring machine operator review may be revised to meet current compliance requirements. Attending Participation: ? I personally performed the entire procedure. ? Sheridan Cassidy MD 01/08/2021 3:55:47 PM This report has been signed electronically. Number of Addenda: 0 Note Initiated On: 01/08/2021 3:12 PM PROVATION 01/08/2021 3:12 PM EDT Laura Ross ECHO TECH GENERAL SURGICAL ORD ERABLES PROVATION documented in [...] RN) documented in this encounter Care Teams Smoke Jumper Relationship Specialty Start Date End Date Laura Ross APRN [address] [place] [address] PCP - General Family Medicine 10/01/17 08/21/22 documented as of this encounter
--- OUTSIDE RECORDS SUMMARY | 2024-08-15 12:09 | XMS_ITS | Encounter Summary ---
Author Organization [place] [address] Care Team Providers Care Ship'S Surveyor Name Role Phone Mike Goodman DNP Primary Care Provider Reason for Referral * Consultation (Routine) - Closed Specialty Diagnoses / Procedures Referred By Contac t Referred To Contact Cardiology Diagnoses Syncope, unspecified syncope type SYNCOPE. FHX CARDIAC ISSUES. HAS SEEN CHRONIC DISEASE EPIDEMIOLOGIST IN [place], [place] IN 2014. HAS RECURRENT SYNCOPAL EPISODES. 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 CURRENTLY WEARING A ZIO. *SCANNED DOCS Mike Goodman DNP [address] [place] [address] [facility] [address] [place] [phone] Referral ID Status Reason Start Date Expiration Date V isits Requested Visits Authorized [id number] Closed Consult, Test & Treat 10/14/2022 10/14/2023 1 1 Encounter Details Date Type Department Care Team (Latest Contact Info) Description 10/14/2022 Transcribe Orders eDH Incoming Referrals [phone] Mike Goodman DNP [address] [place] [address] Syncope, unspecified syncope type Social History Tobacco [...] PM EST TH Visit (TeleHealth) [place] [address] Roxana Webb MD [facility] [place] [address] Scheduled Referrals Name Type Priority Associated Diagnoses Orde r Schedule Referral to Cardiology Outpatient Referral Routine Syncope, unspecified syncope type Ordered: 10/14/2022 documented as of this encounter Visit Diagnoses Diagnosis Syncope, unspecified syncope type documented in this encounter Care Teams Ship'S Surveyor Relationship Specialty Start Date End Date Mike Goodman DNP [address] [place] [address] PCP - General Family Medicine 08/22/22 documented as of this encounter
--- OUTSIDE RECORDS SUMMARY | 2024-08-15 12:09 | XMS_ITS | Encounter Summary ---
Author Organization [facility] [place] [address] Care Team Providers Care Glue Spreader Name Role Phone Mike Goodman KYLE Primary Care Provider [phone] Reason for Visit * Consultation (Routine) - Closed Specialty Diagnoses / Procedures Referred By Contact Referred To Contact Electrophysiology / Cardiology Diagnoses Paroxysmal SVT (supraventricular tachycardia) history of SVTs, most recent monitor pending, has had presyncopal and syncopal events in the last couple of months. *Zio scanned in from 2019* King Haro MD [facility] [place] [address] [facility] [address] [place] [phone] Referral ID Status Reason Start Date Expiration Date V isits Requested Visits Authorized [id number] Closed Consult, Test & Treat 10/22/2022 10/22/2023 1 1 Encounter Details Date Type Department Care Team (Late st Contact Info) Description 01/23/2023 4:00 PM EDT Office Visit Cardiology at [address] [address] Grisel Vazquez MD [facility] [place] [address] Ezra Mckeon MD [facility] [address] Paroxysmal SVT (supraventricular tachycardia) (Primary Dx) Social [...] Electrophysiology Consult Patient ID Mora Bolanos 1975 [id number] Mora Bolanos is referred to the EP clinic by Dr Haro Chief Complaint Syncope Palpitations History This is a 47 y.o. female following up/being seen in clinic for syncope/palpitations/SVT. The history is a little challenging to obtain as she has had care in multiple hospitals. Records from her prior cardiovascular work-up are somewhat incomplete, she has previously had care in [place]. She does have a long history of [...] She says that when she lived in [place], she was evaluated by a quilting machine helper, who apparently diagnosed her with SVT. She [...] was trialed on a beta-jade while in [place], but this may have made her feel [...] placed in October of this year at [facility] -results of this monitor are not in [...] retained food in stomach, otherwise normal. -EGD, [facility], Dr. Julius Zepeda, 03/15/10: small hiatal [...] - age 50 - stroke Brother - Fabinao - has pacemaker since age 23 Exam [...] has a history of prior work-up in [place], and was told that she has SVT, [...] she believes that her ambulatorymonitor performed at [facility] did not provide much useful information (we [...] obtain copies of her ambulatory monitor from [facility] (requested) B) She will try and capture episodes of tachycardia on her Apple Watch C) If we are unable to capture any diagnostic episodes, we will proceed with repeat Zio patch D) Contingency for potentially starting metoprolol for palpitations/SVT E) Encouraged to maintain good hydration F) Follow-up in [place]. GRISEL VAZQUEZ MD Cardiac Electrophysiology [facility] T: [phone] F: [phone] 45 minutes were spent preparing to see [...] PM EST TH Visit (TeleHealth) [place] [address] Roxana Webb MD [facility] [place] [address] documented as of this encounter Visit Diagnoses Diagnosis Paroxysmal SVT (supraventricular tachycardia)- Primary Paroxysmal supraventricular tachycardia documented in this encounter Care Teams Glue Spreader Relationship Specialty Start Date End Date Mike Goodman DNP [address] [place] [address] PCP - General Family Medicine 08/22/22 documented as of this encounter
--- OUTSIDE RECORDS SUMMARY | 2024-08-15 12:09 | XMS_ITS | Encounter Summary ---
Author Organization [facility] [place] [address] Care Team Providers Care Correctional Nurse Name Role Phone Mike Goodman DNP Primary Care Provider [phone] Encounter Details Date Type Department Care Team [...] PM EST TH Visit (TeleHealth) [place] [address] Roxana Webb MD [facility] [place] [address] documented as of this encounter Visit Diagnoses Not on filedocumented in this encounter Care Teams Correctional Nurse Relationship Specialty Start Date End Date Mike Goodman DNP [address] [place] [address] PCP - General Family Medicine 08/22/22 documented as of this encounter
--- OUTSIDE RECORDS SUMMARY | 2024-08-15 12:09 | XMS_ITS | Encounter Summary ---
Author Organization [facility] [place] [address] Care Team Providers Care Emery Grinder Name Role Phone Mike Goodman DNP Primary Care Provider Encounter Details Date Type Department Care Team (Late st Contact Info) Description 09/19/2022 12:05 AM EST Ancillary Procedure Radiology Library at [facility] [place] [phone] Mike Goodman DNP [facility] [address] [place] [address] Social History Tobacco Use Types [...] PM EST TH Visit (TeleHealth) Endocrinology at [facility] [place] [phone] Roxana Webb MD [facility] [place] [address] documented as of this encounter Procedures Procedure Name Priority Date/Time Associated Diagnosis Comments FILM LIBRARY STORAGE ONLY MAMMO Routine 09/19/2022 12:05 AM EST documented in this encounter Results * Film Library- Storage Only Mammo (09/19/2022 12:05 AM EST) Narrative RAD - 12/13/2022 8:56 AM EDT This exam is auto-finalizing. It's purpose is for storage only. Mike Goodman DNP IMG FILM LIBRARY OR DERABLES Performing Organization Address City/State/[facility] Co de Phone Number [place], [place] documented in this encounter Visit Diagnoses Not on filedocumented in this encounter Care Teams Emery Grinder Relationship Specialty Start Date End Date Mike Goodman DNP [address] [place] [address] PCP - General Family Medicine 08/22/22 documented as of this encounter
--- OUTSIDE RECORDS SUMMARY | 2024-08-15 12:09 | XMS_ITS | Encounter Summary ---
[place] [address] Care Team Providers Care Structural Fitter Name Role Phone Mike Goodman DNP Primary Care Provider [phone] Reason for Referral * Consultation (Routine) - Closed Specialty Diagnoses / Procedures Referred By Martha broussard Referred To Contact Breast Clinic / Breast Center Diagnoses Mastodynia Mass of right breast, unspecified quadrant Mike Goodman DNP [address] [place] [address] [facility] [address] [place] [address] Referral ID Status Reason Start Date Expiration Date V isits Requested Visits Authorized [id number] Closed Consult, Test & Treat PCP Updated and/or Approved 06/04/2023 06/03/2024 6 6 Encounter Details Date Type Department Care Team (Latest Contact Info) Description 06/04/2023 Transcribe Orders eDH Incoming Referrals [phone] Mike Goodman DNP [address] [place] [address] Mastodynia; Mass of right breast, unspecified quadrant [...] PM EST TH Visit (TeleHealth) [place] [address] Roxana Webb MD [facility] [place] [address] Scheduled Referrals Name Type Priority Associated Diagnoses Order Schedule Referral to Comprehensive Breast Program Outpatient Referral Routine Mastodynia Mass of right breast, unspecified quadrant Ordered: 06/04/2023 documented as of this encounter Visit Diagnoses Diagnosis Mastodynia Mass of right breast, unspecified quadrant documented in this encounter Care Teams Structural Fitter Relationship Specialty Start Date End Date Mike Goodman DNP [address] [place] [address] PCP - General Family Medicine 08/22/22 documented as of this encounter
--- OUTSIDE RECORDS SUMMARY | 2024-08-15 12:09 | XMS_ITS | Encounter Summary ---
Author Organization [facility] [place] [address] Care Team Providers Care Manager Case Name Role Phone Mike Goodman DNP Primary Care Provider [phone] Encounter Details Date Type Department Care Team [...] PM EST TH Visit (TeleHealth) [place] [address] Roxana Webb MD [facility] [address] documented as of this encounter Visit Diagnoses Not on filedocumented in this encounter Care Teams Manager Case Relationship Specialty Start Date End Date Mike Goodman DNP [address] [place] [address] PCP - General Family Medicine 08/22/22 documented as of this encounter
--- OUTSIDE RECORDS SUMMARY | 2024-08-15 12:09 | XMS_ITS | Encounter Summary ---
Author Organization [facility] [place] [address] Care Team Providers Care Streetcar Dispatcher Name Role Phone Mike Goodman DNP Primary Care Provider [phone] Encounter Details Date Type Department Care Team [...] PM EST TH Visit (TeleHealth) [place] [address] Roxana Webb MD [facility] [place] [address] documented as of this encounter Visit Diagnoses Not on filedocumented in this encounter Care Teams Streetcar Dispatcher Relationship Specialty Start Date End Date Mike Goodman DNP [address] [place] [address] PCP - General Family Medicine 08/22/22 documented as of this encounter
--- OUTSIDE RECORDS SUMMARY | 2024-08-15 12:09 | XMS_ITS | Encounter Summary ---
Author [place] [address] Care Team Providers Care Claims Assistant Name Role Phone Laura Ross APRN Primary Care Provider [phone] Encounter Details Date Type Department Care Team (Latest Contact Info) Description 01/02/2021 11:00 AM EDT Office [place] [address] Nedra Harkins OT De Quervain's tenosynovitis Social [...] that has not resolved s/p 18 months. Mora Bolanos is referred to Occupational Therapy for [...] With Activity: 5-6/10 Treatment Today: Orthosis - Xozvu-Uuko-Waaauk Orthotic, Rigid, WO Jts, Custom Fit & [...] PM EST TH Visit (TeleHealth) [place] [address] Roxana Webb MD [facility] [place] [address] documented as of this encounter Visit Diagnoses Diagnosis De Quervain's tenosynovitis Radial styloid tenosynovitis documented in this encounter Care Teams Claims Assistant Relationship Specialty Start Date End Date Laura Ross APRN [address] [place] [address] PCP - General Family Medicine 10/01/17 08/21/22 documented as of this encounter
--- OUTSIDE RECORDS SUMMARY | 2024-08-15 12:09 | XMS_ITS | Encounter Summary ---
Author Organization [place] [address] Care Team Providers Care Auto Service Mechanic Name Role Phone Mike Goodman KYLE Primary Care Provider [phone] Reason for Referral * Diagnostic Test (Routine) - Closed Specialty Diagnoses / Procedures Referred By Contac t Referred To Contact Cardiology Diagnoses Paroxysmal SVT (supraventricular tachycardia) Procedures Echocardiogram Transthoracic Betina Shahid MD [facility] [place] [address] [facility] [place] [address] Referral ID Status Reason Start Date Expiration Date V isits Requested Visits Authorized [id number] Closed Specialty Service Requested 10/22/2022 10/22/2023 1 1 Reason for Visit * Diagnostic Test (Routine) - Closed Specialty Diagnoses / Procedures Referred By Contac t Referred To Contact Cardiology Diagnoses Paroxysmal SVT (supraventricular tachycardia) Procedures Echocardiogram Transthoracic Betina Shahid MD [facility] [place] [address] [facility] [place] [address] Referral ID Status Reason Start Date Expiration Date V isits Requested Visits Authorized [id number] Closed Specialty Service Requested 10/22/2022 10/22/2023 1 1 Encounter Details Date Type Department Care Team (Latest Contact Info) Description 01/02/2023 2:31 PM EDT - 01/02/2023 11:59 PM EDT Hospital Encounter [place] [address] Betina Shahid MD [facility] [place] [address] Paroxysmal SVT (supraventricular tachycardia) Discharge Disposition: Home [...] 1 tablet by mouth as needed. 05/03/2024 OMEPRAZOLE ORAL Take 40 mg by mouth 2 times daily. Takes it 4 times a day 08/19/2023 documented as of this encounter Plan of Treatment Upcoming Encounters Date Type Department Care Team (Late st Contact Info) Description 08/23/2024 3:30 PM EST TH Visit (TeleHealth) [place] [address] Roxana Webb MD [facility] [address] documented as of this encounter Procedures Procedure Name Priority Date/Time Associated Diagnosis Comments ECHO COMPLETE Routine 01/02/2023 4:08 PM EDT Paroxysmal SVT (supraventricular tachycardia) documented in this encounter Results * ECHO COMPLETE (01/02/2023 4:08 PM EDT) EF 56 HEARTT[employer] SYSTEM Anatomical Region Laterality Modality Cardiac Other 01/02/2023 3:02 PM EDT Narrative 01/02/2023 4:17 PM EDT ? Echocardiogram Report Name: LANAALYIA Kanika ? Study Date: 01/02/2023 03:02 PMBP: 113/66 mmHg ? Patient Location: 4A : 1975 ? Height: 156 cm ? Account: [id number] Age: 47 yrs ? Weight: 66 kg Gender: Female ?BSA: 1.7 m2 Ordering Physician: BETINA SHAHID Referring Physician: BETINA SHAHID Performed By: Cheryl Torres Reason For Study: Paroxysmal SVT (supraventricular tachycardia) Exam Location: [facility]. Interpretation Summary This was essentially a normal study. Please see below for details. Procedure Complete-[id number]. Satisfactory quality. There is normal sinus rhythm. [...] Location: : 1975 Height: 156 cm Account: [id number] Age: 47 yrs Weight: 66 kg Gender: Female BSA: 1.7 m2 Ordering Physician: BETINA SHAHID Referring Physician: BETINA SHAHID Performed By: Cheryl Torres Reason For Study: Paroxysmal SVT (supraventricular tachycardia) Exam Location: [facility]. Interpretation Summary This was essentially a normal study. Please see below for details. Procedure Complete-[id number]. Satisfactory quality. There is normal sinus rhythm.Ventricular [...] Aneurysmal 15-16diffuse Betina Shahid MD [facility] ORDER[facility]LES documented in this encounter Visit Diagnoses Diagnosis Paroxysmal SVT (supraventricular tachycardia) Paroxysmal supraventricular tachycardia documented in this encounter Care Teams Auto Service Mechanic Relationship Specialty Start Date End Date Mike Goodman DNP [address] [place] [address] PCP - General Family Medicine 08/22/22 documented as of this encounter
--- OUTSIDE RECORDS SUMMARY | 2024-08-15 12:09 | XMS_ITS | Encounter Summary ---
Author Organization [place] [id number] Care Team Providers Care Production Designer Name Role Phone Mike Goodman DNP Primary Care Provider [phone] Reason for Referral * Consultation (Routine) - Denied Specialty Diagnoses / Procedures Referred By Martha broussard Referred To Contact Rheumatology Diagnoses Pain in joint, multiple sites Family history of systemic lupus erythematosus Mike Goodman DNP [address] [place] [address] [facility] Rheumatology [address] [place] [phone] Referral ID Status Reason Start Date Expiration Date V isits Requested Visits Authorized [id number] Denied Consult, Test & Treat PCP Updated and/or Approved 08/22/2022 08/22/2023 6 0 Encounter Details Date Type Department Care Team (Latest Contact Info) Description 08/22/2022 Transcribe Orders eDH Incoming Referrals [phone] Mike Goodman DNP [address] [place], [place] [id number] Pain in joint, multiple sites; Family history [...] PM EST TH Visit (TeleHealth) [place] [address] Roxana Webb MD [facility] [place] [address] Scheduled Referrals Name Type Priority Associated Diagnoses Orde r Schedule Referral to Rheumatology Outpatient Referral Routine Pain in joint, multiple sites Family history of systemic lupus erythematosus Ordered: 08/22/2022 documented as of this encounter Visit Diagnoses Diagnosis Pain in joint, multiple sites Family history of systemic lupus erythematosus Family history of skin conditions documented in this encounter Care Teams Production Designer Relationship Specialty Start Date End Date Mike Goodman DNP [address] [place] [address] PCP - General Family Medicine 08/22/22 documented as of this encounter
--- OUTSIDE RECORDS SUMMARY | 2024-08-15 12:09 | XMS_ITS | Encounter Summary ---
Author Organization [facility] [place] [address] Care Team Providers Care Customs Verifier Name Role Phone Mike Goodman DNP Primary Care Provider [phone] Encounter Details Date Type Department Care Team [...] PM EST TH Visit (TeleHealth) [place] [address] Roxana Webb MD [facility] [place] [address] documented as of this encounter Visit Diagnoses Not on filedocumented in this encounter Care Teams Customs Verifier Relationship Specialty Start Date End Date Mike Goodman DNP [address] [place] [address] PCP - General Family Medicine 08/22/22 documented as of this encounter
--- OUTSIDE RECORDS SUMMARY | 2024-08-15 12:09 | XMS_ITS | Encounter Summary ---
Author Organization [facility] [place] [address] Care Team Providers Care Business Director Name Role Phone Mike Goodman DNP Primary Care Provider [phone] Encounter Details Date Type Department Care Team [...] PM EST TH Visit (TeleHealth) [place] [address] Roxana Webb MD [facility] [place] [address] documented as of this encounter Visit Diagnoses Not on filedocumented in this encounter Care Teams Business Director Relationship Specialty Start Date End Date Mike Goodman DNP [address] [place] [address] PCP - General Family Medicine 08/22/22 documented as of this encounter
--- OUTSIDE RECORDS SUMMARY | 2024-08-15 12:09 | XMS_ITS | Encounter Summary ---
Author Organization [facility] Address [facility] [place] [address] Care Team Providers Care Skin Washer Name Role Phone Mike Goodman DNP Primary Care Provider Encounter Details Date Type Department Care Team (Latest Contact Info) Description 12/20/2022 8:14 AM EDT - 12/20/2022 11:59 PM EDT Hospital En[place] [address] Maria Alejandra Aparicio MD [facility] [place] [address] Abnormal finding on breast imaging Discharge Disposition: [...] PM EST TH Visit (TeleHealth) [place] [address] Roxana Webb MD [facility] [place] [address] documented as of this encounter Procedures Procedure [...] have questions please contact the health healthcare customer service that requested your imaging first. ? Narrative [...] breast documented in this encounter Care Teams Skin Washer Relationship Specialty Start Date End Date Mike Goodman DNP [address] [place] [address] PCP - General Family Medicine 08/22/22 documented as of this encounter
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
--- OUTSIDE RECORDS SUMMARY | 2024-08-15 12:09 | XMS_ITS | Encounter Summary ---
[place] [address] Care Team Providers Care Broadcast Engineer Name Role Phone Mike Goodman KYLE Primary Care Provider Reason for Referral * Diagnostic Test (Routine) - Closed Specialty Diagnoses / Procedures Referred By Yayaac t Referred To Contact Radiology Diagnoses Chest pressure Procedures CT Angiogram Coronary Arteries King Haro MD [facility] [address] [facility] [place] [address] Referral ID Status Reason Start Date Expiration Date V isits Requested Visits Authorized [id number] Closed Specialty Service Requested 10/22/2022 04/21/2024 1 1 Reason for Visit * Diagnostic Test (Routine) - Closed Specialty Diagnoses / Procedures Referred By Contjoe t Referred To Contact Radiology Diagnoses Chest pressure Procedures CT Angiogram Coronary Arteries King Haro MD [facility] [place] [address] [facility] [place] [address] Referral ID Status Reason Start Date Expiration Date V isits Requested Visits Authorized [id number] Closed Specialty Service Requested 10/22/2022 04/21/2024 1 1 Encounter Details Date Type Department Care Team (Latest Contact Info) Description 11/14/2022 8:45 AM EST - 11/14/2022 11:59 PM EST Hospital [place] [address] King Haro MD [facility] [place] [address] Chest pressure Discharge Disposition: Home Social History [...] PM EST TH Visit (TeleHealth) [place] [address] Roxana Webb MD [facility] ENDOCRINOLOGY [place], [place] [id number] documented as of this encounter Procedures Procedure [...] who have questions please contact the health customer care consultant that requested your imaging first. ? Electronically signed by: Sussy Farley MD, [facility] ([phone]), at 11/14/2022 1:14 PM Narrative 11/14/2022 1:14 [...] on age, race/ethnicity, and gender: N/A Reference: Jose Linda Detrano R, et al. ??Distribution of coronary artery [...] on age, race/ethnicity, and gender: N/A Reference: Jose Linda Detrano R, et al. ??Distribution ofcoronary artery calcium [...] patients who have questions please contactthe health customer care consultant that requested your imaging first. Electronically signed by: Sussy Farley MD, [facility] ([phone]), at 11/14/2022 1:14 PM King Haro MD IMG CT ORDERABLES documented [...] mLs documented in this encounter Care Teams Broadcast Engineer Relationship Specialty Start Date End Date Mike Goodman DNP [address] [place] [address] PCP - General Family Medicine 08/22/22 documented as of this encounter
--- OUTSIDE RECORDS SUMMARY | 2024-08-15 12:09 | XMS_ITS | Encounter Summary ---
[place] [address] Care Team Providers Care Public Employment Mediator Name Role Phone Laura Ross LOUIE Primary Care Provider [phone] Encounter Details Date Type Department Care Team (Late st Contact Info) Description 06/25/2021 Telephone [place] [address] Lawanda Prado Social History Tobacco Use Types [...] PM EST TH Visit (TeleHealth) [place] [address] Roxana Webb MD [facility] [place] [address] documented as of this encounter Visit Diagnoses Not on filedocumented in this encounter Care Teams Public Employment Mediator Relationship Specialty Start Date End Date Laura Ross APRN [address] [place] [address] PCP - General Family Medicine 10/01/17 08/21/22 documented as of this encounter
--- OUTSIDE RECORDS SUMMARY | 2024-08-15 12:09 | XMS_ITS | Encounter Summary ---
Author Organization [facility] [place] [address] Care Team Providers Care Drop Count Associate Name Role Phone Mike Goodman DNP Primary Care Provider [phone] Reason for Visit * Auth/Cert (Routine) Specialty [...] GI ENDOSCOPY (WRVU 2.09) Sheridan Cassidy MD [facility] [place] [address] [facility] Referral ID Status Reason Start Date Expiration Date Visits Re quested Visits Authorized [id number] 1 1 Encounter Details Date Type Department Care Team (Late st Contact Info) Description 07/16/2023 7:32 AM EDT Anesthesia Event [place] [phone] Clay Alaniz MD [facility] [place] [address] Jayleen Lee Anesthesia Record Procedure Summary Procedure [...] by Fuad King RN PIV 07/16/23; 0658; [id number] catheter system; 20 gauge; cephalic vein (lateral side of arm), right; Anatomical Landmarks; VERA Clemens; distraction, tolerated well, appears comfortable; 07/16/23; 1311 07/16/23 0658 by Bong Thomposn RN 07/16/23 1311 by Asa Wagoner RN [...] Procedure Summary Date: 07/16/23 Room / Location: [facility] OR [address] [place] [address] MAIN OR Anesthesia Start: 731 Anesthesia Stop: 916 Procedures: LAPAROSCOPY,SURGICAL,WITH BIOPSY, SINGLE OR MULTIPLE (WRVU 5.44) (Abdomen) EGD, UPPER GI ENDOSCOPY (WRVU 2.09) (Esophagus) Diagnosis: (possible internal) Surgeons: Sheridan Cassidy MD Responsible Provider: Clay Alaniz MD Anesthesia Type: general ASA Status: 3 All Anesthesia Providers: Anesthesiologist: Clay Alaniz MD MOLD STAMPER: O'Ihsan, An Amaria M, MOLD STAMPER Student Nurse Surveyor Oil Well Directional: Jayleen Lee Vitals Value Taken Time BP 128/78 07/16/23 1015 Temp 36 ??C (96.8 ??F) 07/16/23 0916 Pulse 80 07/16/23 1018 Resp 11 07/16/23 1018 SpO2 92 % 07/16/23 1018 Pain Level 6 07/16/23 0953 Vitals shown include unfiled device data. Patient Location: PACU/[facility] Level of Consciousness: Awake and Alert [...] FUNDOPLASTY performed by Sheridan Cassidy MD at [facility] MAIN OR ??? PRO UNLISTED LAPAROSCOPIC PROCEDURE ESOPHAGUS N/A 11/26/2017 LAPAROSCOPIC REVISION OF GABRIELLA FUNDOPLASTY (WRVU *) performed by Sheridan Cassidy MD at [facility] MAIN OR ??? PRO UNLISTED LAPAROSCOPIC PROCEDURE STOMACH N/A 11/26/2017 LAPAROSCOPIC GASTRECTOMY, PARTIAL, W EVIN-EN-Y RECONSTRUCTION (WRVU *) performed by Sheridan Cassidy MD at [facility] OR ??? PRO UPPER GI ENDOSCOPY, BIOPSY 09/04/2012 EGD WITH BIOPSY performed by Didier Jones MD at [facility] ENDOSCOPY ??? PRO UPPER GI ENDOSCOPY, BIOPSY N/A 07/22/2016 UPPER GASTROINTESTINAL ENDOSCOPY,WITH BIOPSY SINGLE OR MULTIPLE performed by Sheridan Cassidy MD [facility] ENDOSCOPY ??? PRO UPPER GI ENDOSCOPY, BIOPSY N/A 10/20/2017 EGD WITH BIOPSY (WRVU 2.49) performed by Sheridan Cassidy MD at [facility] ENDOSCOPY ??? PRO UPPER GI ENDOSCOPY, BIOPSY N/A 03/09/2018 EGD WITH BIOPSY (WRVU 2.49) performed by Sheridan Cassidy MD at [facility] ENDOSCOPY ??? PRO UPPER GI ENDOSCOPY, DIAGNOSTIC 11/25/2012 ENDOSCOPY, UPPER GI, DIAGNOSTIC, WITH OR WITHOUT SPECIMENS performed by Sheridan Cassidy MD at [facility] OR ??? PRO UPPER GI ENDOSCOPY, DIAGNOSTIC 07/18/2014 EGD, UPPER GI ENDOSCOPY performed by Sheridan Cassidy MD at [facility] ENDOSCOPY ??? PRO UPPER GI ENDOSCOPY, DIAGNOSTIC N/A 11/26/2017 ENDOSCOPY, UPPER GI, DIAGNOSTIC, WITH OR WITHOUT SPECIMENS performed by Sheridan Cassidy MD at [facility] OR ??? PRO UPPER GI ENDOSCOPY, DIAGNOSTIC N/A 01/08/2021 EGD, UPPER GI ENDOSCOPY performed by Sheridan Cassidy MD at [facility] ENDOSCOPY ??? UPPER GI ENDOSCOPY, EXAM 09/04/2012 UPPER GI ENDOSCOPY performed by Didier Jones MD at [facility] ENDOSCOPY Social History Tobacco Use ??? Smoking [...] with patient and spouse. Plan discussed with MOLD STAMPER. Anesthesia Screening documented in this encounter Plan of Treatment Upcoming Encounters Date Type Department Care Team (Late st Contact Info) Description 08/23/2024 3:30 PM EST TH Visit (TeleHealth) [place] [address] Roxana Webb MD [facility] [address] documented as of this encounter Visit Diagnoses [...] on Fri07/16/23 at 0757, Until Fri07/16/23 at 0919, Anesthesia Intra-op, Routine Given 07/16/2023 8:04 AM [...] on Fri07/16/23 at 0745, Until Fri07/16/23 at 09, Anesthesia Intra-op Given 07/16/2023 7:45 AM EDT [...] on Fri07/16/23 at 0900, Until Fri07/16/23 at 09, Anesthesia Intra-op, Routine Given 07/16/2023 9:00 AM EDT 140 mg documented in this encounter Care Teams Drop Count Associate Relationship Specialty Start Date End Date Mike Goodman DNP [address] [facility] [address] [address] PCP - General Family Medicine 08/22/22 documented as of this encounter
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
--- OUTSIDE RECORDS SUMMARY | 2024-08-15 12:09 | XMS_ITS | Encounter Summary ---
Author Organization [facility] [place] [address] Care Team Providers Care Retail Shift Manager Name Role Phone Mike Goodman DNP Primary Care Provider [phone] Encounter Details Date Type Department Care Team [...] PM EST TH Visit (TeleHealth) [place] [address] Roxana Webb MD [facility] [place] [address] documented as of this encounter Visit Diagnoses Not on filedocumented in this encounter Care Teams Retail Shift Manager Relationship Specialty Start Date End Date Mike Goodman DNP [address] [place] [address] PCP - General Family Medicine 08/22/22 documented as of this encounter
--- OUTSIDE RECORDS SUMMARY | 2024-08-15 12:09 | XMS_ITS | Encounter Summary ---
Author [place] [address] Care Team Providers Care Facetor Name Role Phone Mike Goodman DNP Primary Care Provider Encounter Details Date Type Department Care Team (Late st Contact Info) Description 12/13/2022 Telephone Hematology [place] [phone] Danielle Willams Social History Tobacco Use Types [...] 12/13/2022 8:13 AM EDT Mora Bolanos 1975 [id number] Referring provider: Mike Goodman Date of Referral: 12/12/22 Please review outside breast imaging dated: 09/19/22 Reason for exam and clinical history:right breast painful mass Category:0 Questions to be answered:bx More imaging Sending Institution: [facility] Patient would like treatment at: Call pt at: Home Phone [phone] documented in this encounter Plan of Treatment Upcoming Encounters Date Type Department Care Team (Late st Contact Info) Description 08/23/2024 3:30 PM EST TH Visit (TeleHealth) [place] [address] Roxana Webb MD [facility] [address] documented as of this encounter Visit Diagnoses Not on filedocumented in this encounter Care Teams Facetor Relationship Specialty Start Date End Date Mike Goodman DNP [address] [place] [address] PCP - General Family Medicine 08/22/22 documented as of this encounter
--- OUTSIDE RECORDS SUMMARY | 2024-08-15 12:09 | XMS_ITS | Encounter Summary ---
Author Organization [facility] Address [facility] [place] [address] Care Team Providers Care Automation Mechanic Name Role Phone Mike Goodman DNP Primary Care Provider [phone] Encounter Details Date Type Department Care Team (Late st Contact Info) Description 06/17/2023 1:45 PM EDT Office [place] [address] Sheridan Cassidy MD [facility] [place] [address] S/P partial gastrectomy Social History Tobacco Use [...] PM EST TH Visit (TeleHealth) [place] [address] Roxana Webb MD [facility] [place] [address] documented as of this encounter Visit Diagnoses Diagnosis S/P partial gastrectomy Other postprocedural status documented in this encounter Care Teams Automation Mechanic Relationship Specialty Start Date End Date Mike Goodman DNP [address] [place] [address] PCP - General Family Medicine 08/22/22 documented as of this encounter
--- OUTSIDE RECORDS SUMMARY | 2024-08-15 12:09 | XMS_ITS | Encounter Summary ---
Author Organization [facility] [place] [address] Care Team Providers Care Nursery Nurse Name Role Phone Mike Goodman DNP Primary Care Provider [phone] Encounter Details Date Type Department Care Team [...] PM EST TH Visit (TeleHealth) [place] [address] Roxana Webb MD [facility] [place] [address] documented as of this encounter Visit Diagnoses Not on filedocumented in this encounter Care Teams Nursery Nurse Relationship Specialty Start Date End Date Mike Goodman DNP [address] [place] [address] PCP - General Family Medicine 08/22/22 documented as of this encounter
--- OUTSIDE RECORDS SUMMARY | 2024-08-15 12:09 | XMS_ITS | Encounter Summary ---
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 Hiatal hernia with GERD Mike Goodman DNP [address] [place] [address] [facility] [address] [place] [phone] Referral ID Status Reason Start Date Expiration Date V isits Requested Visits Authorized [id number] Closed Consult, Test & Treat PCP Updated and/or Approved 11/13/2022 11/13/2023 6 6 Encounter Details Date Type Department Care Team (Latest Contact Info) Description 11/13/2022 Transcribe Orders eDH Incoming Referrals [phone] Mike Goodman DNP [address] [place] [address] S/P partial gastrectomy; Elevated LFTs; Syncope, unspecified [...] PM EST TH Visit (TeleHealth) [place] [address] Roxana Webb MD [facility] [address] Scheduled Referrals Name Type Priority Associated Diagnoses [...] GERD documented in this encounter Care Teams Master In Chancery Relationship Specialty Start Date End Date Mike Goodman DNP [address] [place] [address] PCP - General Family Medicine 08/22/22 documented as of this encounter
--- OUTSIDE RECORDS SUMMARY | 2024-08-15 12:09 | XMS_ITS | Encounter Summary ---
Author Organization [facility] [place] [address] Care Team Providers Care Saw Superintendent Name Role Phone Mike Goodman DNP Primary Care Provider Encounter Details Date Type Department Care Team (Late Contact Info) Description 05/21/2023 Tele[place] [phone] Shefali Prather Social History Tobacco Use Types [...] anypatient's in clinic upon his [place] [facility] [place]. In the meantime, since Dr. Lyle is [...] PM EST TH Visit (TeleHealth) [place] [address] Roxana Webb MD [facility] [place] [address] documented as of this encounter Visit Diagnoses Not on filedocumented in this encounter Care Teams Saw Superintendent Relationship Specialty Start Date End Date Mike Goodman DNP [address] [place] [address] PCP - General Family Medicine 08/22/22 documented as of this encounter
--- OUTSIDE RECORDS SUMMARY | 2024-08-15 12:09 | XMS_ITS | Encounter Summary ---
Author Organization [place] [address] Care Team Providers Care Archaeology Professor Name Role Phone Mike Goodman DNP Primary Care Provider Reason for Referral * Diagnostic Test (Routine) - Closed Specialty Diagnoses / Procedures Referred By Martha broussard Referred To Contact Gastroenterology Diagnoses Heartburn pH impedance ON PPI - heartburn see also hrem Procedures pH Impedance - 24 Hour Dinesh Lyle MD [facility] [place] [address] [facility] [address] [place] [address] Referral ID Status Reason Start Date Expiration Date V isits Requested Visits Authorized [id number] Closed Consult, Test & Treat 04/23/2023 04/22/2024 1 1 * Diagnostic Test (Routine) - Closed Specialty Diagnoses / Procedures Referred By Martha broussard Referred To Contact Gastroenterology Diagnoses Heartburn HREM - regurgitation see also ph imp Procedures High Resolution Esophageal Manometry PRG ESOPHAGEAL MOTILITY STUDY PRG GERD TST W NASAL IMPEDENCE ELECTROD Dinesh Lyle MD [facility] [place] [address] [facility] [address] [place] [address] Referral ID Status Reason Start Date Expiration Date V isits Requested Visits Authorized [id number] Closed Test Only 04/23/2023 04/22/2024 1 1 * Diagnostic Test (Routine) - Closed Specialty Diagnoses / Procedures Referred By Contac t Referred To Contact Radiology Diagnoses Colicky epigastric pain Procedures MRI Cholangiopancreatography wwo Contrast Dinesh Lyle MD [facility] [place] [address] [place] [address] Referral ID Status Reason Start Date Expiration Date V isits Requested Visits Authorized [id number] Closed Specialty Service Requested 04/23/2023 10/24/2024 1 1 Reason for Visit * Consultation (Routine) - Closed Specialty Diagnoses / Procedures Referred By Contac t Referred To Contact Gastroenterology Diagnoses S/P partial gastrectomy Elevated LFTs Syncope, unspecified syncope type 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 Hiatal hernia with GERD Mike Goodman, [facility] [address] [place] [address] [facility] [address] [place] [address] Referral ID Status Reason Start Date Expiration Date V isits Requested Visits Authorized [id number] Closed Consult, Test & Treat PCP Updated and/or Approved 11/13/2022 11/13/2023 6 6 Encounter Details Date Type Department Care Team (Late st Contact Info) Description 04/23/2023 9:00 AM EDT Office [place] [address] Dinesh Lyle MD [facility] [place] [address] Heartburn (Primary Dx); Colicky epigastric pain Social [...] Lyle MD - 04/23/2023 9:00 AM EDT [facility] Gastroenterology Telehealth Visit Primary care provider: Mike Goodman DNP Reason for visit: to focus on pain that started after first Magdaleno Problem List Patient Active Problem List Diagnosis [...] beginning, in her 30''s Dr. Zepeda at [facility] saw her for chest pain relieved by NTG Saw Queen's at EGD at the time Acid regurg with voice changes First lap Magdaleno did well for 2 years No symptoms Then it slipped Had an un-do in [place] Did a re-do via [place] Did great for a while - about a year Was still in [place] Had gained weight Had cholestectomy for gallstones [...] DATE: 07/25/14 PROVIDER: Rigoberto [place] ([id number]) INDICATION Reflux symptoms despite prior anti-reflux surgery. [...] 0.9% Percent of Supine Recording Time: 0% Ahrpa-Udtgm-Zegc (Total) Fraction of Time with pH Less Than 4%: 0.8% Calculated DeMeester Score (normal values are up to 14.72) Day One Calculated DeMeester Score: 4.5 Day Two Calculated DeMeester Score: 3.5 Gaftg-Pfcqs-Gpog DeMeester Score (Total): 4 Day One Symptoms Association Probability (SAP) for Heartburn: 74% Regurgitation: 16% Chest pain: 20% Day Two SAP for Heartburn: 78% Regurgitation: 36% Chest pain: 41% Bsckt-Rojcd-Gmvc SAP for Heartburn: 89% Regurgitation: 48% Chest [...] recently 09/19/2017, abdominal radiograph 12/07/2018 FINDINGS: AP field nurse case manager radiograph: The visualized lung bases are clear. [...] hernia Impedance pH on meds Return to [facility] to continue evaluation and management folllowing my half-way 40 minutes of this 60 minute telehealth appointment were spent in direct counseling regarding treatment of patient's gastroenterology concern. Please contact me if there are any further questions regarding the care of this patient. Dinesh Lyle MD Gastroenterology Section [facility] documented in this encounter Plan of Treatment Upcoming Encounters Date Type Department Care Team (Late st Contact Info) Description 08/23/2024 3:30 PM EST TH Visit (TeleHealth) [place] [address] Roxana Webb MD [facility] [place] [address] Scheduled Orders Name Type Priority Associated Diagnoses [...] who have questions please contact the health career development manager that requested your imaging first. ? Electronically signed by: Bharat Cabello MD, [facility] ([phone]), at 05/16/2023 11:17 AM Narrative 05/16/2023 11:17 [...] patients who have questions please contactthe health career development manager that requested your imaging first. Electronically signed by: Bharat Cabello MD, [facility]([phone]), at 05/16/2023 11:17 AM Dinesh Wray MD IMG MRI ORDERABL ES documented in this encounter Visit Diagnoses Diagnosis Heartburn- Primary Colicky epigastric pain Abdominal pain, epigastric Colicky epigastric pain Abdominal pain, epigastric documented in this encounter Care Teams Archaeology Professor Relationship Specialty Start Date End Date Mike Goodman DNP [address] [place], [place] [id number] PCP - General Family Medicine 08/22/22 documented as of this encounter
--- OUTSIDE RECORDS SUMMARY | 2024-08-15 12:09 | XMS_ITS | Encounter Summary ---
[place] [address] Care Team Providers Care Oyster Washer Name Role Phone Laura Ross LOUIE Primary Care Provider [phone] Reason for Visit * Auth/Cert Specialty Diagnoses / Procedures Referred By Martha broussard Referred To Contact Diagnoses GERD (gastroesophageal reflux disease) GERD Procedures PRO UPPER GI ENDOSCOPY, DIAGNOSTIC PRO UPPER GI ENDOSCOPY, BIOPSY PRO UP GI ENDOSCOPY, REMV TUMOR, SNARE EGD, UPPER GI ENDOSCOPY Referral ID Status Reason Start Date Expiration Date Visits Re quested Visits Authorized [id number] 1 1 Encounter Details Date Type Department Care Team (Latest Contact Info) Description 01/08/2021 1:39 PM EDT - 01/08/2021 4:51 PM EDT Hospital Encounter [place] [address] Sheridan Cassidy MD [facility] [place] [address] Discharge Disposition: Home Social History Tobacco Use [...] this encounter Discharge Instructions * Discharge Instructions* uNha Solomon RN - 01/08/2021 4:25 PM EDT [...] the day after the procedure, use an ofhj-ovx-djtgeds spray to numb your throat. Sucking on [...] occurs, please contact your Doctor. Please call [phone] before 8pm Mon-Fri with problems, questions or concerns. If you call after 8pm or on weekends, call the Hospital at [phone] and ask to speak to the Terminal Operator case resolution specialist and the printer operator will contact that person for you. When should you call for help? Call [phone] anytime you think you may need emergency [...] After Visit Summary and more online at [email or web address] If you would like to provide [...] cost to you. Content Version: 12.2 ?? [id number] [employer]. Care instructions adapted under license by [facility]. If you have questions about a medical condition or this instruction, always ask your healthcare professional. [employer] disclaims any warranty or liability for your [...] Eng MD - 01/08/2021 3:17 PM EDT [facility] Minimally Invasive Surgery Interval History and Physical [...] tried a number of PPIs and other fooh-nqk-bdimytc meds totry to combat her symptoms with [...] FUNDOPLASTY performed by Sheridan Cassidy MD at [facility] MAIN OR ??? PRO LAP, ESOPHAGUS, OTHER PROC N/A 11/26/2017 LAPAROSCOPIC REVISION OF GABRIELLA FUNDOPLASTY (WRVU *) performed by Sheridan Cassidy MD at [facility] MAIN OR ??? PRO LAP, STOMACH, OTHER, W/O TUBE N/A 11/26/2017 LAPAROSCOPIC GASTRECTOMY, PARTIAL, W EVIN-EN-Y RECONSTRUCTION (WRVU *) performed by Sheridan Cassidy MD at [facility] MAIN OR ??? PRO UPPER GI ENDOSCOPY, BIOPSY 09/04/2012 EGD WITH BIOPSY performed by Didier Jones MD at [facility] ENDOSCOPY ??? PRO UPPER GI ENDOSCOPY, BIOPSY N/A 07/22/2016 UPPER GASTROINTESTINAL ENDOSCOPY,WITH BIOPSY SINGLE OR MULTIPLE performed by Sheridan Cassidy MD [facility] ENDOSCOPY ??? PRO UPPER GI ENDOSCOPY, BIOPSY N/A 10/20/2017 EGD WITH BIOPSY (WRVU 2.49) performed by Sheridan Cassidy MD at [facility] ENDOSCOPY ??? PRO UPPER GI ENDOSCOPY, BIOPSY N/A 03/09/2018 EGD WITH BIOPSY (WRVU 2.49) performed by Sheridan Cassidy MD at [facility] ENDOSCOPY ??? PRO UPPER GI ENDOSCOPY, DIAGNOSTIC 11/25/2012 ENDOSCOPY, UPPER GI, DIAGNOSTIC, WITH OR WITHOUT SPECIMENS performed by Sheridan Cassidy MD at [facility] OR ??? PRO UPPER GI ENDOSCOPY, DIAGNOSTIC 07/18/2014 EGD, UPPER GI ENDOSCOPY performed by Sheridan Cassidy MD at [facility] ENDOSCOPY ??? PRO UPPER GI ENDOSCOPY, DIAGNOSTIC N/A 11/26/2017 ENDOSCOPY, UPPER GI, DIAGNOSTIC, WITH OR WITHOUT SPECIMENS performed by Sheridan Cassidy MD at [facility] OR ??? UPPER GI ENDOSCOPY, EXAM 09/04/2012 UPPER GI ENDOSCOPY performed by Didier Jones MD at [facility] ENDOSCOPY No current facility-administered medications on [...] Gatherings with Friends and Family: ??? Attends Gnosticism Services: ??? Active Member of Clubs or [...] PM EST TH Visit (TeleHealth) Endocrinology at [facility] [place] [place] [address] Roxana Webb MD [facility] [place] [address] documented as of this encounter Procedures Procedure Name Priority Date/Time Associated Diagnosis Comments Upper GI Endoscopy, Diagnostic (66522) 01/08/2021 3:35 PM EDT GERD UPPER GI ENDOSCOPY Routine 01/08/2021 3: 12 PM EDT documented in this encounter Results * UPPER GI ENDOSCOPY (01/08/2021 3:12 PM EDT) UPPER GI ENDOSCOPY [facility] Procedure Date: 01/08/2021 3:12 PM ? Patient Name: Mora Bolanos ? Date of : 1975 ? Age: 45 ? Order #: [id number] ? Instrument Name: [id number] ? Procedure: ? Upper GI endoscopy Indications: [...] the physician, the nurse and the ? forestry technician in the pre-procedure area ? in [...] appearing mucosa. This was ? traversed. The vsqqb-ls-hvjohzy limb was ? characterized by healthy appearing [...] Procedure Code(s): ?? --- Professional --- ? 65776, Esophagogastroduod enoscopy, ? flexible, transoral; diagnostic, ? including collection of specimen(s) ? by brushing or washing, when ? performed (separate procedure) CPT copyright 2019 [employer]. All rights reserved. The codes documented in this report are preliminary and upon change management analyst review may be revised to meet current compliance requirements. Attending Participation: ? I personally performed the entire procedure. ? Sheridan Cassidy MD 01/08/2021 3:55:47 PM This report has been signed electronically. Number of Addenda: 0 Note Initiated On: 01/08/2021 3:12 PM PROVATION 01/08/2021 3:12 PM EDT Laura L Cody [facility] PROVATION documented in [...] RN) documented in this encounter Care Teams Oyster Washer Relationship Specialty Start Date End Date Laura Ross APRN [address] [place] [address] PCP - General Family Medicine 10/01/17 08/21/22 documented as of this encounter
--- OUTSIDE RECORDS SUMMARY | 2024-08-15 12:09 | XMS_ITS | Encounter Summary ---
[place] [address] Care Team Providers Care Recreation Program Coordinator Name Role Phone Mike Goodman KYLE Primary Care Provider [phone] Reason for Referral * Consultation (Routine) - Closed Specialty Diagnoses / Procedures Referred By Martha broussard Referred To Contact Genetics Diagnoses Family history of ovarian cancer Jaimee Maki APRN [facility] [place] [address] [facility] Hem Onc [address] [place] [address] Referral ID Status Reason Start Date Expiration Date V isits Requested Visits Authorized [id number] Closed Consult, Test & Treat 06/17/2023 06/16/2024 1 1 * Diagnostic Test (Routine) - Closed Specialty Diagnoses / Procedures Referred By Martha broussard Referred To Contact Radiology Diagnoses Breast lesion on mammography Procedures MRI Breast wwo Contrast Bilat Jaimee Maki APRN [facility] [place] [address] [facility] [place] [address] Referral ID Status Reason Start Date Expiration Date V isits Requested Visits Authorized [id number] Closed Specialty Service Requested 06/17/2023 12/16/2024 1 1 Reason for Visit * Reason Comments Establish Care * Consultation (Routine) - Closed Specialty Diagnoses / Procedures Referred By Martha t Referred To Contact Breast Clinic / Breast Center Diagnoses Mastodynia Mass of right breast, unspecified quadrant Maxine Mike Hawa, DNP [address] [place] [address] [facility] Hem [facility] [address] [place] [address] Referral ID Status Reason Start Date Expiration Date V isits Requested Visits Authorized [id number] Closed Consult, Test & Treat PCP Updated and/or Approved 06/04/2023 06/03/2024 6 6 Encounter Details Date Type Department Care Team (Late st Contact Info) Description 06/17/2023 1:00 PM EDT Office [place] [address] Jaimee Maki APRN [facility] [place] [address] Breast lesion on mammography; Family history of [...] Known genetic mutation Not tested Hx Ashkenazi Restorationism heritage? No Previous breast biopsy? Yes Previous radiation to chest? No Social Hx: She is a former smoker; ETOH - no Past Medical Hx: Gerd, Queen's, severe endometriosis Past Surgical Hx: Hysterectomy with left ovary Past Surgical History: Procedure Laterality Date PRO UNLISTED LAPAROSCOPIC PROCEDURE ESOPHAGUS 11/25/2012 LAPAROSCOPIC REVISION OF GABRIELLA FUNDOPLASTY performed by Sheridan Cassidy MD at [facility] MAIN OR PRO UNLISTED LAPAROSCOPIC PROCEDURE ESOPHAGUS N/A 11/26/2017 LAPAROSCOPIC REVISION OF GABRIELLA FUNDOPLASTY (WRVU *) performed by Sheridan Cassidy MD at [facility] MAIN OR PRO UNLISTED LAPAROSCOPIC PROCEDURE STOMACH N/A 11/26/2017 LAPAROSCOPIC GASTRECTOMY, PARTIAL, W EVIN-EN-Y RECONSTRUCTION (WRVU *) performed by Sheridan Cassidy MD at [facility] MAIN OR PRO UPPER GI ENDOSCOPY, BIOPSY 09/04/2012 EGD WITH BIOPSY performed by Didier Jones MD at [facility] ENDOSCOPY PRO UPPER GI ENDOSCOPY, BIOPSY N/A 07/22/2016 UPPER GASTROINTESTINAL ENDOSCOPY,WITH BIOPSY SINGLE OR MULTIPLE performed by Sheridan Cassidy MD [facility] ENDOSCOPY PRO UPPER GI ENDOSCOPY, BIOPSY N/A 10/20/2017 EGD WITH BIOPSY (WRVU 2.49) performed by Sheridan Cassidy MD at [facility] ENDOSCOPY PRO UPPER GI ENDOSCOPY, BIOPSY N/A 03/09/2018 EGD WITH BIOPSY (WRVU 2.49) performed by Sheridan Cassidy MD at [facility] ENDOSCOPY PRO UPPER GI ENDOSCOPY, DIAGNOSTIC 11/25/2012 ENDOSCOPY, UPPER GI, DIAGNOSTIC, WITH OR WITHOUT SPECIMENS performed by Sheridan Cassidy MD at [facility] OR PRO UPPER GI ENDOSCOPY, DIAGNOSTIC 07/18/2014 EGD, UPPER GI ENDOSCOPY performed by Sheridan Cassidy MD at [facility] ENDOSCOPY PRO UPPER GI ENDOSCOPY, DIAGNOSTIC N/A 11/26/2017 ENDOSCOPY, UPPER GI, DIAGNOSTIC, WITH OR WITHOUT SPECIMENS performed by Sheridan Cassidy MD at [facility] OR PRO UPPER GI ENDOSCOPY, DIAGNOSTIC N/A 01/08/2021 EGD, UPPER GI ENDOSCOPY performed by Sheridan Cassidy MD at [facility] ENDOSCOPY UPPER GI ENDOSCOPY, EXAM 09/04/2012 UPPER GI ENDOSCOPY performed by Didier Jones MD at [facility] ENDOSCOPY Physical Exam: General appearance: Alert, well-appearing, [...] symptoms. Jaimee Maki APRN Surgical Oncology P [phone] F [phone] [facility] documented in this encounter Plan of Treatment Upcoming Encounters Date Type Department Care Team (Late st Contact Info) Description 08/23/2024 3:30 PM EST TH Visit (TeleHealth) [place] [address] Roxana Webb MD [facility] [place] [address] Scheduled Referrals Name Type Priority Associated Diagnoses [...] who have questions please contact the health senior resident care director that requested your imaging first. ? Narrative [...] contrast enhancement curve analysis was performed, using HALKAR software. COMPARISON STUDIES: No prior contrast-enhanced breast [...] chest wall or skin.. Jaimee Maki APRN [facility] MRI ORDERABLES documented in this encounter Visit Diagnoses Diagnosis Breast lesion on mammography Abnormal mammogram, unspecified Family history of ovarian cancer Family history of malignant neoplasm of ovary Breast lesion on mammography Abnormal mammogram, unspecified documented in this encounter Care Teams Recreation Program Coordinator Relationship Specialty Start Date End Date Mike Goodman DNP [address] [place] [address] PCP - General Family Medicine 08/22/22 documented as of this encounter
--- OUTSIDE RECORDS SUMMARY | 2024-08-15 12:09 | XMS_ITS | Encounter Summary ---
Author Organization [facility] Address [facility] [place] [address] Care Team Providers Care Topographic Computator Name Role Phone Mike Goodman DNP Primary Care Provider Encounter Details Date Type Department Care Team (Latest Contact Info) Description 12/20/2022 8:14 AM EDT - 12/20/2022 11:59 PM EDT Hospital En[place] [address] Maria Alejandra Aparicio MD [facility] [place] [address] Abnormal finding on breast imaging Discharge Disposition: [...] PM EST TH Visit (TeleHealth) [place] [address] Roxana Webb MD [facility] [place] [address] documented as of this encounter Procedures Procedure [...] have questions please contact the health healthcare science specialist that requested your imaging first. ? [...] breast documented in this encounter Care Teams Topographic Computator Relationship Specialty Start Date End Date Mike Goodman DNP [address] [place] [address] PCP - General Family Medicine 08/22/22 documented as of this encounter
--- OUTSIDE RECORDS SUMMARY | 2024-08-15 12:09 | XMS_ITS | Encounter Summary ---
Author Organization [facility] [place] [address] Care Team Providers Care Screw Machine Hand Name Role Phone Mike Goodman DNP Primary Care Provider [phone] Encounter Details Date Type Department Care Team [...] PM EST TH Visit (TeleHealth) [place] [address] Roxana Webb MD [facility] [place] [address] documented as of this encounter Visit Diagnoses Not on filedocumented in this encounter Care Teams Screw Machine Hand Relationship Specialty Start Date End Date Mike Goodman DNP [address] [place] [address] PCP - General Family Medicine 08/22/22 documented as of this encounter
--- OUTSIDE RECORDS SUMMARY | 2024-08-15 12:09 | XMS_ITS | Encounter Summary ---
Author Organization [facility] [place] [address] Care Team Providers Care Spring Machine Operator Name Role Phone Mike Goodman DNP Primary Care Provider [phone] Reason for Visit * Auth/Cert (Routine) Specialty [...] GI ENDOSCOPY (WRVU 2.09) Sheridan Mosher MD [facility] [place] [address] [facility] Referral ID Status Reason Start Date Expiration Date Visits Re quested Visits Authorized [id number] 1 1 Encounter Details Date Type Department Care Team (Late st Contact Info) Description 07/16/2023 7:30 AM EDT - 07/16/2023 9:41 AM EDT Surgery [place] [phone] Sheridan Mosher MD [facility] [address] AL SURGERY [place], [place] [id number] LAPAROSCOPY,SURGICAL,W ITH BIOPSY, SINGLE OR MULTIPLE (WRVU [...] Medrano MD - 07/16/2023 9:21 AM EDT [facility] Department of GeneralSurgery Discharge Instructions CALL [...] with the Surgery nurses. The number is [phone]. - During the night or weekends call the [facility] flat grinder operator at [phone] and ask to speak to the surgery resident fashion buyer for general surgery. Please note: Your surgeon may not be Rock Loader, especially during the night or on weekends, so be ready to describe yourself and your surgery when you call. Follow up appointments: Future Appointments Date Time Provider Department Center 07/29/2023 6:30 PM [facility] MR 6 MH MRI [facility] Rad 08/12/2023 10:30 AM Jessica Tyler APRN [facility] [place] [x] Follow-up appointment with General Surgery has already been scheduled. Please call the clinic at [phone] to confirm or reschedule. documented in this [...] Rader MD - 07/16/2023 8:04 AM EDT [facility] Operative Note Patient Name: Mora Bolanos : [id number] MR#: [id number] Case Date: 07/16/2023 Surgeon: Surgeon(s) and Role: [...] Surgical Infection Prevention Bundle Used? N/A Francisco Javeir Rader MD Associated attestation - Sheridan Mosher [...] PM EST TH Visit (TeleHealth) [place] [address] Roxana Webb MD [facility] [place] [address] documented as of this encounter Procedures Procedure Name Priority Date/Time Associated Diagnosis Comments Upper GI Endoscopy, Diagnostic (18858) Yes 07/16/2023 7:30 AM EDT possible internal Lap, Dx Surgical Abd W/Biopsy (52993) Yes 07/16/2023 7:30 AM EDT possible internal POCT GLUCOSE Routine 07/16/2023 6:23 AM EDT UPPER GI ENDOSCOPY Routine 07/16/2023 6: 05 AM EDT LAPAROSCOPY,SURGICAL ,WITH BIOPSY, SINGLE OR MULTIPLE Routine 07/16/2023 6:05 AM EDT documented in this encounter Results * POCT Glucose (07/16/2023 6:23 AM EDT) Glucose, POC 82 65 - 199 mg/dL [facility] Comment: Supplemental ranges: <140 mg/dL before meals <180 mg/dL all other times of the day Blood 07/16/2023 6:23 AM EDT 07/16/2023 6:23 AM EDT Sheridan Mosher MD POINT OF CARE TEST O RDERABLES [facility] [place] [address] documented in this encounter Visit Diagnoses Not [...] Routine documented in this encounter Care Teams Spring Machine Operator Relationship Specialty Start Date End Date Mike Goodman DNP [address] [place] [address] PCP - General Family Medicine 08/22/22 documented as of this encounter
--- OUTSIDE RECORDS SUMMARY | 2024-08-15 12:09 | XMS_ITS | Encounter Summary ---
Author [place] [address] Care Team Providers Care Automotive Machinist Name Role Phone Mike Goodman KYLE Primary Care Provider Reason for Referral * Diagnostic Test (Routine) - Closed Specialty Diagnoses / Procedures Referred By Contac t Referred To Contact Radiology Diagnoses Colicky epigastric pain Procedures MRI Cholangiopancreatography wwo Contrast Dinesh Lyle MD [facility] [address] [place] [address] Referral ID Status Reason Start Date Expiration Date V isits Requested Visits Authorized [id number] Closed Specialty Service Requested 04/23/2023 10/24/2024 1 1 Reason for Visit * Diagnostic Test (Routine) - Closed Specialty Diagnoses / Procedures Referred By Contac t Referred To Contact Radiology Diagnoses Colicky epigastric pain Procedures MRI Cholangiopancreatography wwo Contrast Dinesh Lyle MD [facility] [address] [place] [address] Referral ID Status Reason Start Date Expiration Date V isits Requested Visits Authorized [id number] Closed Specialty Service Requested 04/23/2023 10/24/2024 1 1 Encounter Details Date Type Department Care Team (Latest Contact Info) Description 05/15/2023 7:07 PM EDT - 05/15/2023 11:59 PM EDT [place] [phone] Dinesh Lyle MD [facility] [address] Colicky epigastric pain Discharge Disposition: Home Social [...] 1 tablet by mouth as needed. 05/03/2024 ferrous sulfate (FeroSul) 325 mg (65 mg [...] PM EST TH Visit (TeleHealth) [place] [address] Roxana Webb MD [facility] [address] documented as of this encounter Procedures Procedure [...] who have questions please contact the health campground caretaker that requested your imaging first. ? Electronically signed by: Bharat Cabello MD, [facility] ([phone]), at 05/16/2023 11:17 AM Narrative 05/16/2023 11:17 [...] patients who have questions please contactthe health campground caretaker that requested your imaging first. Dinesh Wray [...] mLs documented in this encounter Care Teams Automotive Machinist Relationship Specialty Start Date End Date Mike Goodman DNP [address] [place] [address] PCP - General Family Medicine 08/22/22 documented as of this encounter
--- OUTSIDE RECORDS SUMMARY | 2024-08-15 12:09 | XMS_ITS | Encounter Summary ---
Author Organization [facility] [place] [address] Care Team Providers Care Pasting Machine Operator Name Role Phone Mike Goodman DNP Primary Care Provider [phone] Encounter Details Date Type Department Care Team [...] PM EST TH Visit (TeleHealth) [place] [address] Roxana Webb MD [facility] [place] [address] documented as of this encounter Visit Diagnoses Not on filedocumented in this encounter Care Teams Pasting Machine Operator Relationship Specialty Start Date End Date Mike Goodman DNP [address] [place] [address] PCP - General Family Medicine 08/22/22 documented as of this encounter
--- OUTSIDE RECORDS SUMMARY | 2024-08-15 12:09 | XMS_ITS | Encounter Summary ---
Author Organization [facility] [place] [address] Care Team Providers Care Financial Aid Counselor Name Role Phone Mike Goodman DNP Primary Care Provider [phone] Encounter Details Date Type Department Care Team [...] PM EST TH Visit (TeleHealth) [place] [address] Roxana Webb MD [facility] [place] [address] documented as of this encounter Visit Diagnoses Not on filedocumented in this encounter Care Teams Financial Aid Counselor Relationship Specialty Start Date End Date Mike Goodman DNP [address] [place] [address] PCP - General Family Medicine 08/22/22 documented as of this encounter
--- OUTSIDE RECORDS SUMMARY | 2024-08-15 12:09 | XMS_ITS | Encounter Summary ---
[place] [address] Care Team Providers Care Professor Of Kinesiology Name Role Phone Mike Goodman DNP Primary Care Provider [phone] Encounter Details Date Type Department Care Team (Late st Contact Info) Description 11/20/2022 Telephone Cardiology at [address] [address] Rossi Mcgovern RN Social History Tobacco Use Types Packs/Day [...] provider. Rossi Mcgovern RN Cardiology Clinic at [facility] [address] documented in this encounter Plan of Treatment Upcoming Encounters Date Type Department Care Team (Late st Contact Info) Description 08/23/2024 3:30 PM EST TH Visit (TeleHealth) [place] [address] Roxana Webb MD [facility] [place] [address] documented as of this encounter Visit Diagnoses Not on filedocumented in this encounter Care Teams Professor Of Kinesiology Relationship Specialty Start Date End Date Mike Goodman DNP [address] [place] [address] PCP - General Family Medicine 08/22/22 documented as of this encounter
--- OUTSIDE RECORDS SUMMARY | 2024-08-15 12:10 | XMS_ITS | Encounter Summary ---
Author Organization Pending Sale To [facility] Address [facility] [place] [address] Care Team Providers Care Adjunct Phlebotomy Instructor Name Role Phone Laura Ross LOUIE Primary Care Provider [phone] Reason for Visit * Auth/Cert Specialty Diagnoses [...] Expiration Date Visits Re quested Visits Authorized [id number] 1 Encounter Details Date Type Department Care Team (Late st Contact Info) Description 11/26/2017 2:57 PM EDT - 11/26/2017 7:25 PM EDT [place] [address] Sheridan Mosher MD [facility] [place] [address] LAPAROSCOPIC REVISION OF GABRIELLA FUNDOPLASTY (WRVU 48.75) [...] Revision of Gabriella Fundoplasty with Partial Gastrectomy [id number] Reconstruction and Intraoperative Upper Endoscopy Surgeons: Surgeon(s) [...] period of time. She then moved to [place] and at some point experienced food impaction [...] strict medically supervised weight loss with an ASSOCIATE PRODUCER in [place] for 3 months and still gained weight. 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 She continues to be Vitamin D deficient [...] changed to oral pain medications and the SECURITY OPERATIONS SPECIALIST was discontinued on POD# 1. She was [...] Dorinda Covington MD Obstetrics and Gynecology at [employer] [phone] 12/18/2017 10:40 AM Nedra Ling LD; Sheridan Mosher MD General Surgery at [employer] [phone] 02/25/2018 2:00 PM Nina Ibanez Hematology/Oncology at [facility] [phone] Instructions Given to Patient at Discharge: SURGERY DISCHARGE INFORMATION SURGERY SUPPORT TEAM CONTACT NUMBERS (Mon-Fri 8am - 5pm): General Surgery [phone] Surgeons: Karen Cherry and Ange [phone] Dietitians: [phone] Outside of regular business hours, including weekends and holidays: Ask for General Surgery resident neurosurgeon [phone] FOR EMERGENCIES: CALL 911 (trouble breathing, chest [...] weeks at the General Surgery Outpatient Clinic (Service Counselor 4L, [facility]). Future Appointments Date Time Provider Department Center 12/10/2017 1:00 PM Dorinda Covington MD [facility] 12/18/2017 10:40 AM Sheridan Mosher MD Le[facility] Surg [facility] 02/25/2018 2:00 PM Nina Ibanez [facility] [place] [facility] BATHING AND WOUND CARE: ?? You [...] Follow up with primary care provider or aviation technical systems specialist in 1-2 weeks in order to [...] for life. Signed: Lynda De Santiago MD [facility] [id number] Primary Care Physician: Laura Ross APRN [address] [facility] [address] documented in this encounter Discharge Instructions * Patient Instructions* Ange Cordon MD - 11/28/2017 4:07 PM EDT SURGERY DISCHARGE INFORMATION SUPPORT TEAM CONTACT NUMBERS (Mon-Fri 8am - 5pm): General Surgery and Bariatric Surgery [phone] Surgeons: Karen Cherry and Ange [phone] Rail Loader: [phone] Dietitians: [phone] Outside of regular business hours, including weekends and holidays: Ask for General Surgery resident neurosurgeon [phone] FOR EMERGENCIES: CALL 911 (trouble breathing, chest [...] weeks at the General Surgery Outpatient Clinic (Service Counselor 4, [facility]). Future Appointments Date Time Provider Department Center 12/10/2017 1:00 PM Dorinda Covington MD Leb ObGyn [address] [place] [address] 12/18/2017 10:40 AM Sheridan Mosher MD Leb Surg [facility] 02/25/2018 2:00 PM Nina Ibanez [facility] [place] [facility] BATHING AND WOUND CARE: ?? You [...] Follow up with primary care provider or aviation technical systems specialist in 1-2 weeks in order to [...] NEURO: Pain control with IV Tylenol and SECURITY OPERATIONS SPECIALIST Dilaudid; transition to elixir Tylenol and Oxycodone. [...] 5:23 AM EDT Pt arrived to [facility] at 0520 after report received from Mara in PACU. Pt oriented to floor, call system, purposeful rounding, fall prevention program. VSS. Lap sites on abdomen CDI under bandaids. Denies nausea, states pain gets better with SECURITY OPERATIONS SPECIALIST but is afraid to fall asleep because of pain. Denies CP/SOB * Mara Marie RN - 11/27/2017 12:53 AM EDT 2300 - report received from [facility] [place]. Care assumed. Pt will remain in PACU [...] FUNDOPLASTY performed by Sheridan Mosher MD at [facility] MAIN OR ??? PRO UPPER GI ENDOSCOPY, BIOPSY ?? 09/04/2012 ?? EGD WITH BIOPSY performed by Didier Jones MD at [facility] ENDOSCOPY ??? PRO UPPER GI ENDOSCOPY, BIOPSY N/A 07/22/2016 ?? UPPER GASTROINTESTINAL ENDOSCOPY,WITH BIOPSY SINGLE OR MULTIPLE performed by Sheridan Mosher MDat [facility] ENDOSCOPY ??? PRO UPPER GI ENDOSCOPY, DIAGNOSTIC ?? 11/25/2012 ?? ENDOSCOPY, UPPER GI, DIAGNOSTIC, WITH OR WITHOUT SPECIMENS performed by Sheridan Mosher MD at [facility] MAIN OR ??? PRO UPPER GI ENDOSCOPY, DIAGNOSTIC ?? 07/18/2014 ?? EGD, UPPER GI ENDOSCOPY performed by Sheridan Mosher MD at [facility] ENDOSCOPY ??? UPPER GI ENDOSCOPY, EXAM ?? 09/04/2012 ?? UPPER GI ENDOSCOPY performed by Didier Jones MD at [facility] ENDOSCOPY ?? No current facility-administered medications on [...] Patient ambulated in hallway several times today. SECURITY OPERATIONS SPECIALIST discontinued this morning and patient now onliquid [...] and children. Two adult children live in [place]; youngest son attends [employer], [facility] in January 2018. Behavioral Health History: Denied. Substance Use/Abuse: Denied Other Pertinent/Service Specific Information: Pt has had many surgery in her past; she is very familiar with post-operative recovery. Health/Prescription Coverage: Primary Insurance: [facility] Secondary Insurance: [facility] Prescription Coverage: Pt was not sure if she has prescription coverage but said she can handle outof pocket co-pays of generic's. Preferred Pharmacy: [place]. Other: no Primary Care Provider: Laura Ross, LOUIE [phone] Patient/Caregiver Goals of Treatment: Effective pain management; [...] of care planning. Nena Bright RN, BSN Conference Concierge-2 West Pager # [phone] [email or web address] * Plan of Care - Mara Marie [...] the night, and thus only using her SECURITY OPERATIONS SPECIALIST intermittently. When she got up to walk to the bathroom (succsesfully voiding with low PVR) she c/o severe pain, but was able to catch up once returned to bed. VSS. NPO maintained. C/o nausea last hs, medicated with relief stated. PLAN MOVING FORWARD: mobilize; nausea meds as needed; SECURITY OPERATIONS SPECIALIST INDIVIDUALIZED FALL PREVENTION INTERVENTIONS: Patient-specific fall risk [...] Mosher MD - 11/26/2017 8:05 PM EDT [facility] Operative Note Patient Name: Mora Bolanos : [id number] MR#: [id number] Case Date: 11/26/2017 Surgeon: Surgeon(s) and Role: [...] Order Time SPECIMEN TO PATHOLOGY OR 26 [id number] FAILED FUNDOPLICATION Fundus Excision No 11/26/2017 6:23 [...] sac was entered. A firing of an [employer] Templates-NAY 60 stapler with a blue load in [...] distal bowel was chosen to create the [id number] jejunojejunostomy. The duodenal, afferent limb was approximated [...] suture in two layers with a 30 Latvian Bougie (blunt-tipped) in place. The Bougie was [...] PM EST TH Visit (TeleHealth) [place] [address] Roxana Webb MD [facility] [place] [address] documented as of this encounter Procedures Procedure [...] 48.75) 11/26/2017 4:32 PM EDT FAILED FUNDOPLICATION DIRECTOR TRUST SCAN 11/26/2017 12:00 AM EDT documented in this encounter Results * POCT Glucose (11/29/2017 3:08 PM EDT) Glucose, POC 92 65 - 199 mg/dL [facility] Comment: Supplemental ranges: <140 mg/dL before meals <180 mg/dL all other times of the day Blood specimen (specimen) 11/29/2017 3:08 PM EDT 11/29/2017 3:08 PM EDT Sheridan Mosher MD POINT OF CARE TEST O RDERACALVIN Performing Organization Address City/[facility]/ZIP Co de Phone Number [facility] [place] [address] * POCT Glucose (11/29/2017 11:54 AM EDT) Glucose, POC 103 65 - 199 mg/dL [facility] Comment: Supplemental ranges: <140 mg/dL before meals <180 mg/dL all other times of the day Blood specimen (specimen) 11/29/2017 11:54 AM EDT 11/29/2017 11:54 AM EDT Sheridan Mosher MD POINT OF CARE TEST O RDERACALVIN Performing Organization Address [facility]/ZIP Co de Phone Number [facility] [place] [address] * POCT Glucose (11/29/2017 7:43 AM EDT) Glucose, POC 88 65 - 199 mg/dL [facility] Comment: Supplemental ranges: <140 mg/dL before meals <180 mg/dL all other times of the day Blood specimen (specimen) 11/29/2017 7:43 AM EDT 11/29/2017 7:43 AM EDT Sheridan Mosher MD POINT OF CARE TEST O RDERACALVIN [facility] [place] [address] * Differential, Automated (11/29/2017 3:50 AM EDT) Neutrophil % 61.6 % [facility] Neutrophil Absolute 5.94 1.70 - 6.10 x10(3)/[facility] Lymph % 28.8 % [facility] Lymphocytes Abs 2.8 0.9 - 3.2 x10(3)/[facility] Monocyte % 6.2 % [facility] Monocyte Abs 0.6 0.3 - 0.9 x10(3)/[facility] Eos % 2.7 % [facility] Eosinophils Abs 0.3 0.0 - 0.4 x10(3)/[facility] Basophil % 0.4 % [facility] Baso Absolute 0.0 0.0 - 0.1 x10(3)/[facility] Immature Gran % 0.30 % [facility] Comment: Immature granulocytes(IG's)percentage and absolute count will include metamyelocytes, myelocytes, and promyelocytes. Blood smears from CBCs yielding IG's will be scanned manually for concordance. If this scan disagrees with the automated IG or if promyelocytes are noted, a manual differential will be performed. Immature Gran Absolute 0.03 0.00 - 0.04 x10(3)/[facility] Blood specimen (specimen) 11/29/2017 3:50 AM EDT 11/29/2017 4:03 AM EDT Narrative Resulting Agency Comment Spec In Lab Ange Oreilly MD HEMATOLOGY OR DERABLES [facility] [place] [address] * (ABNORMAL) Hemogram (11/29/2017 3:50 AM EDT) White Blood Cell 9.6(H) 4.0 - 9.5 x10(3)/[facility] Red Blood Cell 4.24 4.00 - 5.21 x10(6)/mc L [facility] Hemoglobin 11.7 11.7 - 15.5 gm/dL [facility] Hematocrit 36.8 35.7 - 45.8 % [facility] Mean Cell Volume 86.8 82.6 - 94.4 fL [facility] Mean Cell Hemoglobin 27.6 27.1 - 32.0 pg [facility] Mean Cell Hemoglobin Concentration 31.8 31.7 - 35.0 gm/dL [facility] Platelet 216 145 - 357 x10(3)/mc L [facility] RDW Standard Deviation 40.6 37.0 - 46.0 fL [facility] RDW coefficient of variation 12.8 11.5 - 14.1 % [facility] Mean Platelet Volume 10.0 7.6 - 12.9 fL [facility] NRBC% auto 0.0 % [facility] NRBC Absolute 0.000 0.000 - 0.000 x10(3)/mc L [facility] Blood specimen (specimen) 11/29/2017 3:50 AM EDT 11/29/2017 4:03 AM EDT Narrative Resulting Agency Comment Spec In Lab Ange Oreilly MD HEMATOLOGY OR DERABLES Performing Organization Address City/State/[facility] Co de Phone Number [facility] [place] [address] * (ABNORMAL) Basic Metabolic Panel (non-fasting) (11/29/2017 3:50 AM EDT) Glucose 100 65 - 199 mg/dL [facility] Comment:Diabetes: >=200 mg/d L plus symptoms Blood Urea Nitrogen 4(L) 8 - 18 mg/dL [facility] Creatinine 0.66(L) 0.70 - 1.20 mg/dL [facility] Sodium 144 135 - 145 mmol/L [facility] Potassium 4.0 3.5 - 5.0 mmol/L [facility] Comment: Please note: ??Patients with WBC >100,000 may have falsely elevated Potassium levels. ??For accurate Potassium quantification in these patients send serum separator tube (gold top) for subsequent determinations. ??Contact the Clinical Chemistry Laboratory if there are any questions. Chloride 106 98 - 107 mmol/L [facility] Carbon Dioxide 28 22 - 31 mmol/L [facility] Anion Gap 10 5 - 15 mmol/L [facility] Calcium 9.0 8.5 - 10.5 mg/dL [facility] Comment:result rechecked-jt Est Glomerular Filtration Rate >60 >=60 [facility] Comment: The reported eGFR should be multiplied by 1.2 for patients. The MDRD is not an appropriate measure of renal function for patients with body mass extremes or in patients with acute kidney failure. http://OnRequest Images/DHnkdep http://On[employer] Images/DHMCnkf Blood specimen (specimen) 11/29/2017 3:50 AM EDT 11/29/2017 4:03 AM EDT Narrative Resulting Agency Comment Spec In Lab Ange Oreilly MD CHEMISTRY ORD ERABLES Performing Organization Address [facility] Co de Phone Number [facility] [place] [address] * POCT Glucose (11/29/2017 3:49 AM EDT) Glucose, POC 91 65 - 199 mg/dL [facility] Comment: Supplemental ranges: <140 mg/dL before meals <180 mg/dL all other times of the day Blood specimen (specimen) 11/29/2017 3:49 AM EDT 11/29/2017 3:49 AM EDT Sheridan Mosher MD POINT OF CARE TEST O RDERABLES Performing Organization Address City/[facility]/ZIP Co de Phone Number [facility] [place] [address] * POCT Glucose (11/28/2017 11:30 PM EDT) Glucose, POC 82 65 - 199 mg/dL [facility] Comment: Supplemental ranges: <140 mg/dL before meals <180 mg/dL all other times of the day Blood specimen (specimen) 11/28/2017 11:30 PM EDT 11/28/2017 11:30 PM EDT Sheridan Mosher MD POINT OF CARE TEST O PATRICIA [facility] [place] [address] * POCT Glucose (11/28/2017 7:32 PM EDT) Glucose, POC 117 65 - 199 mg/dL [facility] Comment: Supplemental ranges: <140 mg/dL before meals <180 mg/dL all other times of the day Blood specimen (specimen) 11/28/2017 7:32 PM EDT 11/28/2017 7:32 PM EDT Sheridan Mosher MD POINT OF CARE TEST O PATRICIA Performing Organization Address City/[facility]/ZIP Co de Phone Number [facility] [place] [address] * POCT Glucose (11/28/2017 3:56 PM EDT) Glucose, POC 141 65 - 199 mg/dL [facility] Comment: Supplemental ranges: <140 mg/dL before meals <180 mg/dL all other times of the day Blood specimen (specimen) 11/28/2017 3:56 PM EDT 11/28/2017 3:56 PM EDT Sheridan Mosher MD POINT OF CARE TEST O CAROLINAERACALVIN [facility] [place] [address] * XR Chest PA & Lateral (Generic) [...] Glucose, POC 120 65 - 199 mg/dL [facility] Comment: Supplemental ranges: <140 mg/dL before meals <180 mg/dL all other times of the day Blood specimen (specimen) 11/28/2017 11:53 AM EDT 11/28/2017 11:53 AM EDT Sheridan Mosher MD POINT OF CARE TEST O PATRICIA Performing Organization Address [facility] Co de Phone Number [facility] [place] [address] * POCT Glucose (11/28/2017 7:47 AM EDT) Glucose, POC 109 65 - 199 mg/dL [facility] Comment: Supplemental ranges: <140 mg/dL before meals <180 mg/dL all other times of the day Blood specimen (specimen) 11/28/2017 7:47 AM EDT 11/28/2017 7:47 AM EDT Sheridan Mosher MD POINT OF CARE TEST O PATRICIA Performing Organization Address [facility] Co de Phone Number [facility] [place] [address] * POCT Glucose (11/28/2017 4:21 AM EDT) Glucose, POC 104 65 - 199 mg/dL [facility] Comment: Supplemental ranges: <140 mg/dL before meals <180 mg/dL all other times of the day Blood specimen (specimen) 11/28/2017 4:21 AM EDT 11/28/2017 4:21 AM EDT Sheridan Mosher MD POINT OF CARE TEST O PATRICIA Performing Organization Address [facility] Co de Phone Number [facility] [place] [address] * (ABNORMAL) Differential, Automated (11/28/2017 2:42 AM EDT) Neutrophil % 67.1 % [facility] Neutrophil Absolute 6.24(H) 1.70 - 6.10 x10(3)/mc L [facility] Lymph % 24.0 % [facility] Lymphocytes Abs 2.2 0.9 - 3.2 x10(3)/[facility] Monocyte % 7.5 % [facility] Monocyte Abs 0.7 0.3 - 0.9 x10(3)/[facility] Eos % 0.9 % [facility] Eosinophils Abs 0.1 0.0 - 0.4 x10(3)/[facility] Basophil % 0.2 % [facility] Baso Absolute 0.0 0.0 - 0.1 x10(3)/[facility] Immature Gran % 0.30 % [facility] Comment: Immature granulocytes(IG's)percentage and absolute count will include metamyelocytes, myelocytes, and promyelocytes. Blood smears from CBCs yielding IG's will be scanned manually for concordance. If this scan disagrees with the automated IG or if promyelocytes are noted, a manual differential will be performed. Immature Gran Absolute 0.03 0.00 - 0.04 x10(3)/[facility] Blood specimen (specimen) 11/28/2017 2:42 AM EDT 11/28/2017 3:08 AM EDT Narrative Resulting Agency Comment Spec In Lab Ange Oreilly MD HEMATOLOGY OR DERABLES Performing Organization Address City/State/[facility] Co de Phone Number [facility] [place] [address] * (ABNORMAL) Hemogram (11/28/2017 2:42 AM EDT) White Blood Cell 9.3 4.0 - 9.5 x10(3)/[facility] Red Blood Cell 3.78(L) 4.00 - 5.21 x10(6)/[facility] Hemoglobin 10.5(L) 11.7 - 15.5 gm/dL [facility] Hematocrit 32.7(L) 35.7 - 45.8 % [facility] Mean Cell Volume 86.5 82.6 - 94.4 fL [facility] Mean Cell Hemoglobin 27.8 27.1 - 32.0 pg [facility] Mean Cell Hemoglobin Concentration 32.1 31.7 - 35.0 gm/dL [facility] Platelet 212 145 - 357 x10(3)/mc L [facility] RDW Standard Deviation 40.9 37.0 - 46.0 fL [facility] RDW coefficient of variation 13.0 11.5 - 14.1 % [facility] Mean Platelet Volume 10.5 7.6 - 12.9 fL [facility] NRBC% auto 0.0 % [facility] NRBC Absolute 0.000 0.000 - 0.000 x10(3)/mc L [facility] Blood specimen (specimen) 11/28/2017 2:42 AM EDT 11/28/2017 3:08 AM EDT Narrative Resulting Agency Comment Spec In Lab Ange Oreilly MD HEMATOLOGY OR DERABLES [facility] [place] [address] * (ABNORMAL) Basic Metabolic Panel (non-fasting) (11/28/2017 2:42 AM EDT) Glucose 94 65 - 199 mg/dL [facility] Comment:Diabetes: >=200 mg/d L plus symptoms Blood Urea Nitrogen 5(L) 8 - 18 mg/dL [facility] Creatinine 0.73 0.70 - 1.20 mg/dL [facility] Sodium 142 135 - 145 mmol/L [facility] Potassium 3.7 3.5 - 5.0 mmol/L [facility] Comment: result rechecked-jt Please note: ??Patients with WBC >100,000 may have falsely elevated Potassium levels. ??For accurate Potassium quantification in these patients send serum separator tube (gold top) for subsequent determinations. ??Contact the Clinical Chemistry Laboratory if there are any questions. Chloride 104 98 - 107 mmol/L [facility] Carbon Dioxide 27 22 - 31 mmol/L [facility] Anion Gap 11 5 - 15 mmol/L [facility] Calcium 7.9(L) 8.5 - 10.5 mg/dL [facility] Est Glomerular Filtration Rate >60 >=60 [facility] Comment: The reported eGFR should be multiplied by 1.2 for patients. The MDRD is not an appropriate measure of renal function for patients with body mass extremes or in patients with acute kidney failure. http://OnRequest [email or web address] http://OnRequest Images/DHMCnkf Blood specimen (specimen) 11/28/2017 2:42 AM EDT 11/28/2017 3:08 AM EDT Narrative Resulting Agency Comment Spec In Lab Ange Oreilly MD CHEMISTRY ORD ERABLES Performing Organization Address City/[facility]/ZIP Co de Phone Number [facility] [place] [address] * POCT Glucose (11/27/2017 11:46 PM EDT) Glucose, POC 95 65 - 199 mg/dL [facility] Comment: Supplemental ranges: <140 mg/dL before meals <180 mg/dL all other times of the day Blood specimen (specimen) 11/27/2017 11:46 PM EDT 11/27/2017 11:46 PM EDT Sheridan Mosher MD POINT OF CARE TEST O RDERABLES Performing Organization Address City/[facility]/ZIP Co de Phone Number [facility] [place] [address] * POCT Glucose (11/27/2017 7:46 PM EDT) Glucose, POC 110 65 - 199 mg/dL [facility] Comment: Supplemental ranges: <140 mg/dL before meals <180 mg/dL all other times of the day Blood specimen (specimen) 11/27/2017 7:46 PM EDT 11/27/2017 7:46 PM EDT Sheridan Mosher MD POINT OF CARE TEST O PATRICIA [facility] [place] [address] * POCT Glucose (11/27/2017 3:51 PM EDT) Glucose, POC 105 65 - 199 mg/dL [facility] Comment: Supplemental ranges: <140 mg/dL before meals <180 mg/dL all other times of the day Blood specimen (specimen) 11/27/2017 3:51 PM EDT 11/27/2017 3:51 PM EDT Sheridan Mosher MD POINT OF CARE TEST Britany GOMEZ Performing Organization Address [facility]/ZIP Co de Phone Number [facility] [place] [address] * POCT Glucose (11/27/2017 11:12 AM EDT) Glucose, POC 95 65 - 199 mg/dL [facility] Comment: Supplemental ranges: <140 mg/dL before meals <180 mg/dL all other times of the day Blood specimen (specimen) 11/27/2017 11:12 AM EDT 11/27/2017 11:12 AM EDT Sheridan Mosher MD POINT OF CARE TEST O PATRICIA [facility] [place] [address] * POCT Glucose (11/27/2017 8:08 AM EDT) Glucose, POC 105 65 - 199 mg/dL [facility] Comment: Supplemental ranges: <140 mg/dL before meals <180 mg/dL all other times of the day Blood specimen (specimen) 11/27/2017 8:08 AM EDT 11/27/2017 8:08 AM EDT Sheridan Mosher MD POINT OF CARE TEST O PATRICIA Performing Organization Address City/[facility] Co de Phone Number [facility] [place] [address] * POCT Glucose (11/27/2017 4:47 AM EDT) Glucose, POC 113 65 - 199 mg/dL [facility] Comment: Supplemental ranges: <140 mg/dL before meals <180 mg/dL all other times of the day Blood specimen (specimen) 11/27/2017 4:47 AM EDT 11/27/2017 4:47 AM EDT Sheridan Mosher MD POINT OF CARE TEST O PATRICIA Performing Organization Address City/[facility] Co de Phone Number [facility] [place] [address] * (ABNORMAL) Differential, Automated (11/27/2017 4:40 AM EDT) [facility] Neutrophil % 84.9 % [facility] Neutrophil Absolute 12.83(H) 1.70 - 6.10 x10(3)/mc L [facility] Lymph % 10.0 % [facility] Lymphocytes Abs 1.5 0.9 - 3.2 x10(3)/mc L [facility] Monocyte % 4.7 % [facility] Monocyte Abs 0.7 0.3 - 0.9 x10(3)/mc L [facility] Eos % 0.0 % [facility] Eosinophils Abs 0.0 0.0 - 0.4 x10(3)/mc L [facility] Basophil % 0.1 % [facility] Baso Absolute 0.0 0.0 - 0.1 x10(3)/mc L [facility] Immature Gran % 0.30 % [facility] Comment: Immature granulocytes(IG's)percentage and absolute count will include metamyelocytes, myelocytes, and promyelocytes. Blood smears from CBCs yielding IG's will be scanned manually for concordance. If this scan disagrees with the automated IG or if promyelocytes are noted, a manual differential will be performed. Immature Gran Absolute 0.04 0.00 - 0.04 x10(3)/ L [facility] Blood specimen (specimen) 11/27/2017 4:40 AM EDT 11/27/2017 4:46 AM EDT Narrative Resulting Agency Comment Spec In Lab Ange Oreilly MD HEMATOLOGY OR DERABLES [facility] [place] [address] * (ABNORMAL) Hemogram (11/27/2017 4:40 AM EDT) White Blood Cell 15.1(H) 4.0 - 9.5 x10(3)/ L [facility] Red Blood Cell 4.46 4.00 - 5.21 x10(6)/ L [facility] Hemoglobin 12.3 11.7 - 15.5 gm/dL [facility] Hematocrit 37.3 35.7 - 45.8 % [facility] Mean Cell Volume 83.6 82.6 - 94.4 fL [facility] Mean Cell Hemoglobin 27.6 27.1 - 32.0 pg [facility] Mean Cell Hemoglobin Concentration 33.0 31.7 - 35.0 gm/dL [facility] Platelet 281 145 - 357 x10(3)/ L [facility] RDW Standard Deviation 38.5 37.0 - 46.0 fL [facility] RDW coefficient of variation 12.8 11.5 - 14.1 % [facility] Mean Platelet Volume 10.4 7.6 - 12.9 fL [facility] NRBC% auto 0.0 % [facility] NRBC Absolute 0.000 0.000 - 0.000 x10(3)/mc L [facility] Blood specimen (specimen) 11/27/2017 4:40 AM EDT 11/27/2017 4:46 AM EDT Narrative Resulting Agency Comment Spec In Lab Ange Oreilly MD HEMATOLOGY OR DERABLES Performing Organization Address City/[facility] Co de Phone Number [facility] [place] [address] * Phosphorus (11/27/2017 4:40 AM EDT) Phosphorus 4.4 2.5 - 4.5 mg/dL [facility] Blood specimen (specimen) 11/27/2017 4:40 AM EDT 11/27/2017 4:46 AM EDT Narrative Resulting Agency Comment Spec In Lab Ange Oreilly MD CHEMISTRY ORD ERABLES Performing Organization Address [facility] Co de Phone Number [facility] [place] [address] * Magnesium (11/27/2017 4:40 AM EDT) Magnesium 0.81 0.69 - 1.07 mmol/L [facility] Blood specimen (specimen) 11/27/2017 4:40 AM EDT 11/27/2017 4:46 AM EDT Narrative Resulting Agency Comment Spec In Lab Ange Oreilly MD CHEMISTRY ORD ERABLES Performing Organization Address [facility] Co de Phone Number [facility] [place] [address] * (ABNORMAL) Glucose, fasting (11/27/2017 4:40 AM EDT) Glucose Fasting 114(H) 65 - 99 mg/dL [facility] Comment: ?Fasting* Glucose Interpretive [...] of Diabetes Mellitus, Position Statement from the [place] [employer]. ??Diabetes Care, Volume 33, Supplement 1, Sep 2009 Blood specimen (specimen) 11/27/2017 4:40 AM EDT 11/27/2017 4:46 AM EDT Narrative Resulting Agency Comment Spec In Lab Ange Oreilly MD 33[employer] Performing Organization Address [facility] de Phone Number [facility] [place] [address] * Creatinine (11/27/2017 4:40 AM EDT) Creatinine 0.79 0.70 - 1.20 mg/dL [facility] Est Glomerular Filtration Rate >60 >=60 [facility] Comment: The reported eGFR should be multiplied by 1.2 for patients. The MDRD is not an appropriate measure of renal function for patients with body mass extremes or in patients with acute kidney failure. http://[employer]/DHnkdep http://[employer]/DHMCnkf Blood specimen (specimen) 11/27/2017 4:40 AM EDT 11/27/2017 4:46 AM EDT Narrative Resulting Agency Comment Spec In Lab Ange Oreilly MD CHEMISTRY ORD [employer] Performing Organization Address [facility] Co de Phone Number [facility] [place] [address] * (ABNORMAL) BUN (11/27/2017 4:40 AM EDT) Blood Urea Nitrogen 7(L) 8 - 18 mg/dL [facility] Blood specimen (specimen) 11/27/2017 4:40 AM EDT 11/27/2017 4:46 AM EDT Narrative Resulting Agency Comment Spec In Lab Ange Oreilly MD CHEMISTRY ORD ERABLES Performing Organization Address City/[facility] Co de Phone Number [facility] [place] [address] * Electrolytes panel (11/27/2017 4:40 AM EDT) [facility] Sodium 139 135 - 145 mmol/L [facility] Potassium Not Perf 3.5 - 5.0 mmol/L [facility] Comment: Unable to quantitate [...] questions. Chloride 100 98 - 107 mmol/L [facility] Carbon Dioxide 27 22 - 31 mmol/L [facility] Anion Gap 12 5 - 15 mmol/L [facility] Blood specimen (specimen) 11/27/2017 4:40 AM EDT 11/27/2017 4:46 AM EDT Narrative Resulting Agency Comment Spec In Lab Ange Oreilly MD CHEMISTRY ORD ERABLES Performing Organization Address City/[facility]/ZIP Co de Phone Number [facility] [place] [address] * POCT Glucose (11/27/2017 12:18 AM EDT) Glucose, POC 143 65 - 199 mg/dL [facility] Comment: Supplemental ranges: <140 mg/dL before meals <180 mg/dL all other times of the day Blood specimen (specimen) 11/27/2017 12:18 AM EDT 11/27/2017 12:18 AM EDT Sheridan Mosher MD POINT OF CARE TEST O PATRICIA Performing Organization Address [facility] Co de Phone Number [facility] [place] [address] * POCT Glucose (11/26/2017 8:40 PM EDT) Glucose, POC 158 65 - 199 mg/dL [facility] Comment: Supplemental ranges: <140 mg/dL before meals <180 mg/dL all other times of the day Blood specimen (specimen) 11/26/2017 8:40 PM EDT 11/26/2017 8:40 PM EDT Sheridan Mosher MD POINT OF CARE TEST O PATRICIA Performing Organization Address [facility] Co de Phone Number [facility] [place] [address] * Specimen to Pathology (11/26/2017 6:24 PM EDT) AP Specimen 11/26/2017 6:24 PM EDT 11/26/2017 6:24 PM EDT Narrative [facility] - 11/26/2017 6:24 PM EDT Specimen requisition ordered. ??Separate Pathology report to follow Sheridan Mosher MD PATHOLOGY/CYTOLOGY O RDWILMA Performing Organization Address [facility] Co de Phone Number [facility] [place] [address] * Surgical Pathology Report (11/26/2017 6:23 PM EDT) Final Diagnosis [id number] ? Location: 2WST; 0210; A The signing pathologist has (i) examined the relevant preparation(s) for the specimen(s) and (ii) rendered or confirmed the diagnosis(es). . ?Surgical Pathology DIAGNOSIS Fundus, wedge resection: Benign segment of stomach with unremarkable gastric fundic gland mucosa. Electronically signed by: ??Stefani Roberts MD Verified: ??12/01/2017 ?Pathologist Performed at: ??-[facility] Dept. of Pathology, [place], [place] CLINICAL INFORMATION Specimen Submitted: A - Fundus Clinical History: Failed fundoplication Clinical Diagnosis: Same SPECIMEN PROCESSING A - ??Labeled/Fixativ e: Fundus, fresh. Quantity/Size: Single, 5.5 x 4.5 x 3.5 cm. Tissue Description: Intact, wedge resection of stomach. The serosa is pink, ragged with fibrous adhesions. The mucosa is pink with the usual rugal folds. Sections/Processi ng: ??(R1) ??sns 12/01/2017 3:54 PM EDT [facility] STOMACH STRUCTURE / Unknown 11/26/2017 6:23 PM EDT 11/26/2017 6:23 PM EDT Sheridan Mosher MD PATHOLOGY/CYTOLOGY O RDERABLES [facility] [place] [address] * SCAN DOC: DIRECTOR TRUST (11/26/2017 12:00 AM EDT) Anatomical Region Laterality [...] (2.5 mg/mL) injection ONCE PRN, Starting on 11/26/17 at 1817, Until 11/29/17 at 2046, Intra-Operative (Intra-Procedure), Routine Given 11/26/2017 7:56 PM [...] NOT exceed 2 mg total dose. Per SECURITY OPERATIONS SPECIALIST order., Recovery (Recovery-Hospital Unit), Routine ondansetron (ZOFRAN) [...] Ankush Lowry RN)0724 (Given - Provider: Ankush Lowry, CHELO)1130 (Given - Provider: Isabel Hammond RN)1517 (Given - Provider: Isabel Hammond, CHELO)1915 (Given - Provider: Isabel Hammond RN)2330 (Given - Provider: Ankush Lowry RN) 0336 (Given - Provider: Ankush Lowry RN)0829 (Given - Provider: Kaitlyn Buckner, CHELO)1103 (Given - Provider: Kaitlyn Buckner, CHELO)1513 (Given - Provider: Kaitlyn Buckner RN) enoxaparin [...] Germania 11/27/17 at 1400, Until Discontinued, Routine 1511 (Patch Applied - Provider: Ange Griffin RN) sodium chloride 0.9 % flush 5 mL 5 mL, Intravenous, 2 TIMES DAILY, First dose on Fri11/26/17 at 2300, Until Discontinued, Recovery (Recovery-Hospital Unit), Routine 0836 (Given - Provider: Ange Griffin RN)2048 (Given - Provider: Ankush Lowry, CHELO) 0817 (Given - Provider: Isabel Hammond, CHELO)2026 (Given - Provider: Ankush Lowry, CHELO) 0830 (Given - Provider: Kaitlyn Buckner RN) Continuous Medication Order 11/27/2017 11/28/2017 11/29/2017 lactated Ringers infusion (CANCELED) 90 mL/hr, Intravenous, CONTINUOUS, Starting on Fri11/26/17 at 2100, Until Fri11/28/17 at 0537, Recovery (Recovery-Hospital Unit) 0834 (New Bag - Provider: Ange Griffin RN)1927 (New Bag - Provider: Ankush Lowry, CHELO) 0620 (Stopped - Provider: Ankush Lowry, CHELO) PRN Medication Order 11/27/2017 11/28/2017 11/29/2017 bisacodyl [...] NOT exceed 2 mg total dose. Per SECURITY OPERATIONS SPECIALIST order., Recovery (Recovery-Hospital Unit), Routine ondansetron (ZOFRAN) injection 4 mg 4 mg, Intravenous, EVERY 8 HOURS PRN, Starting on Germania 11/27/17 at 0859, Until 11/29/17 at 2047, Nausea 0951 (Given - Provider: Ange Griffin RN) 1439 (Given - Provider: Hermelinda Tucker RN) 0829 (Given - Provider: Kaitlyn Buckner [...] Ange Griffin RN)2048 (Given - Provider: Ankush Lowry RN)2348 (Given - Provider: Ankush Lowry RN) 0400 (Given - Provider: Ankush Lowry RN)0724 (Given - Provider: Ankush Lowry RN)1130 (Given - Provider: Isabel Hammond RN)1445 (Given - Provider: Hermelinda Tucker RN)1928 (Given - Provider: Ankush Lowry RN)2330 (Given - Provider: Ankush Lowry RN) 0336 (Given - Provider: Ankush Lowry RN)1103 (Given - Provider: Kaitlyn Buckner, CHELO)1452 (Given - Provider: Kaitlyn Buckner RN) polyethylene glycol (MIRALAX) packet 17 g 17 g, Oral, DAILY PRN, Starting on 11/26/17 at 2237, [...] on Fri11/27/17 at 1400, Until Discontinued, Routine And scopolamine (TRANSDERM-SCOP) 1 mg patch Patch Verification (CANCELED) Transdermal, 2 TIMES DAILY, First dose on Fri11/28/17 at 0145, Until Discontinued, Verify scopolamine 1 mg patch. And scopolamine (TRANSDERM-SCOP) 1 mg patch Patch Removal (CANCELED) Transdermal, EVERY 72 HOURS, First dose on 11/30/17 at 1345, Until Discontinued, Remove scopolamine 1 mg patch Group 3: dextrose 50% IV syringe 25-50 mLJump to med 25-50 mL (12.5-25 g), Intravenous, EVERY 1 HOUR PRN, Starting on Germania 11/27/17 at 0027, Until 11/29/17 at 7, Low blood sugar, For BG 50-70: 120 [...] Routine documented in this encounter Care Teams Adjunct Phlebotomy Instructor Relationship Specialty Start Date End Date Laura Ross APRN [address] [place], [place] [id number] PCP - General Family Medicine 10/01/17 08/21/22 documented as of this encounter
--- OUTSIDE RECORDS SUMMARY | 2024-08-15 12:10 | XMS_ITS | Encounter Summary ---
Author Organization [facility] [place] [address] Care Team Providers Care Panel Monitor Name Role Phone Laura Ross LOUIE Primary Care Provider [phone] Encounter Details Date Type Department Care Team (Late st Contact Info) Description 03/09/2018 Orders [place] [address] Sheridan Cassidy MD [facility] [address] Upper abdominal pain Social History Tobacco Use [...] PM EST TH Visit (TeleHealth) [place] [address] Roxana Webb MD [facility] [place] [address] documented as of this encounter Results * Lipase (03/09/2018 2:39 PM EDT) Lipase 40 0 - 60 unit/L [facility] Blood specimen (specimen) 03/09/2018 2:39 PM EDT 03/09/2018 2:48 PM EDT Narrative Resulting Agency Comment Spec In Lab Sheridan Cassidy MD CHEMISTRY ORDERABLES Performing Organization Address [facility] de Phone Number [facility] [place] [address] * Amylase (03/09/2018 2:39 PM EDT) Amylase 51 28 - 100 unit/L [facility] Blood specimen (specimen) 03/09/2018 2:39 PM EDT 03/09/2018 2:48 PM EDT Narrative Resulting Agency Comment Spec In Lab Sheridan Cassidy MD CHEMISTRY ORDERABLES Performing Organization Address [facility] de Phone Number [facility] [place] [address] * (ABNORMAL) Hepatic Function Panel (03/09/2018 2:39 PM EDT) Pathologist [facility] Protein, Total 6.5 6.1 - 8.0 gm/dL [facility] Albumin 4.1 3.2 - 5.2 gm/dL [facility] Aspartate Aminotransferase 24 0 - 30 unit/L [facility] Alanine Aminotransferase 82(H) 0 - 30 unit/L [facility] Alkaline Phosphatase 118(H) 40 - 104 unit/L [facility] Bilirubin, Total 0.4 0.2 - 1.3 mg/dL [facility] Bilirubin, Direct 0.1 0.0 - 0.3 mg/dL [facility] Blood specimen (specimen) 03/09/2018 2:39 PM EDT 03/09/2018 2:48 PM EDT Narrative Resulting Agency Comment Spec In Lab Sheridan Cassidy MD CHEMISTRY ORDERABLES [facility] [place] [address] documented in this encounter Visit Diagnoses Diagnosis Upper abdominal pain Abdominal pain, other specified site documented in this encounter Care Teams Panel Monitor Relationship Specialty Start Date End Date Laura Ross APRN [address] [place] [id number] PCP - General Family Medicine 10/01/17 08/21/22 documented as of this encounter
--- OUTSIDE RECORDS SUMMARY | 2024-08-15 12:10 | XMS_ITS | Encounter Summary ---
Author Organization [facility] Address [facility] [place] [address] Care Team Providers Care Home Care Scheduler Name Role Phone Laura Ross APRN Primary Care Provider [phone] Encounter Details Date Type Department Care Team (Late st Contact Info) Description 03/19/2019 External Results [place] [phone] Provider, Scanning Social History Tobacco Use Types [...] PM EST TH Visit (TeleHealth) [place] [phone] Roxana Webb MD [facility] [place] [address] documented as of this encounter Procedures Procedure Name Priority Date/Time Associated Diagnosis Comments SURGICAL PATHOLOGY SCAN Routine 03/19/2019 documented in this encounter Results * Scan Doc: Surgical Pathology (03/19/2019) Historical Provider MEDIA MGR SCAN EX T ORDR/RSLT documented in this encounter Visit Diagnoses Not on filedocumented in this encounter Care Teams Home Care Scheduler Relationship Specialty Start Date End Date Laura Ross APRN [address] [place] [phone] PCP - General Family Medicine 10/01/17 08/21/22 documented as of this encounter
--- OUTSIDE RECORDS SUMMARY | 2024-08-15 12:10 | XMS_ITS | Encounter Summary ---
Author Organization [facility] [place] [address] Care Team Providers Care Hat Sprayer Name Role Phone Laura Ross APRN Primary Care Provider [phone] Encounter Details Date Type Department Care Team (Latest Contact Info) Description 03/09/2018 2:45 PM EDT Laboratory Appointment Lab [address] [place] [phone] Upper abdominal pain Social History Tobacco Use [...] PM EST TH Visit (TeleHealth) [place] [phone] Roxana Webb MD [facility] [place] [address] documented as of this encounter Procedures Procedure Name Priority Date/Time Associated Diagnosis Comments LIPASE Routine 03/09/2018 2:39 PM EDT Upper abdominal pain AMYLASE Routine 03/09/2018 2:39 PM EDT Upper abdominal pain HEPATIC FUNCTION PANEL Routine 03/09/2018 2:39 PM EDT Upper abdominal pain documented in this encounter Results * Lipase (03/09/2018 2:39 PM EDT) Lipase 40 0 - 60 unit/L [facility] Blood specimen (specimen) 03/09/2018 2:39 PM EDT 03/09/2018 2:48 PM EDT Narrative Resulting Agency Comment Spec In Lab Sheridan Cassidy MD CHEMISTRY ORDERABLES Performing Organization Address [facility] Co de Phone Number [facility] [place] [address] * Amylase (03/09/2018 2:39 PM EDT) Pathologist [facility] Amylase 51 28 - 100 unit/L [facility] Blood specimen (specimen) 03/09/2018 2:39 PM EDT 03/09/2018 2:48 PM EDT Narrative Resulting Agency Comment Spec In Lab Sheridan Cassidy MD CHEMISTRY ORDERABLES Performing Organization Address [facility] Co de Phone Number [facility] [place] [address] * (ABNORMAL) Hepatic Function Panel (03/09/2018 2:39 PM EDT) Protein, Total 6.5 6.1 - 8.0 gm/dL [facility] Albumin 4.1 3.2 - 5.2 gm/dL [facility] Aspartate Aminotransferase 24 0 - 30 unit/L [facility] Alanine Aminotransferase 82(H) 0 - 30 unit/L [facility] Alkaline Phosphatase 118(H) 40 - 104 unit/L [facility] Bilirubin, Total 0.4 0.2 - 1.3 mg/dL [facility] Bilirubin, Direct 0.1 0.0 - 0.3 mg/dL [facility] Blood specimen (specimen) 03/09/2018 2:39 PM EDT 03/09/2018 2:48 PM EDT Narrative Resulting Agency Comment Spec In Lab Sheridan Cassidy MD CHEMISTRY ORDERABLES [facility] [place] [address] documented in this encounter Visit Diagnoses Diagnosis Upper abdominal pain Abdominal pain, other specified site documented in this encounter Care Teams Hat Sprayer Relationship Specialty Start Date End Date Laura Ross APRN [address] [place] [id number] PCP - General Family Medicine 10/01/17 08/21/22 documented as of this encounter
--- OUTSIDE RECORDS SUMMARY | 2024-08-15 12:10 | XMS_ITS | Encounter Summary ---
Author Organization Counts Include [address] [address] Care Team Providers Care Mining Engineer Name Role Phone Laura Ross LOUIE Primary Care Provider Encounter Details Date Type Department Care Team (Latest Contact Info) Description 03/16/2019 9:11 PM EDT - 03/16/2019 11:59 PM EDT Hospital [place] [address] Discharge Disposition: Home Social History Tobacco Use [...] PM EST TH Visit (TeleHealth) [place] [address] Roxana Webb MD [facility] [place] [address] documented as of this encounter Procedures Procedure Name Priority Date/Time Associated Diagnosis Comments SURGICAL PATHOLOGY REPORT Routine 03/16/2019 5:30 AM EDT documented in this encounter Results * Surgical Pathology Report (03/16/2019 5:30 AM EDT) Final Diagnosis [id number] ? Location: [facility] The signing pathologist has (i) examined the relevant preparation(s) for the specimen(s) and (ii) rendered or confirmed the diagnosis(es). . 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 No goblet cell metaplasia is seen. Electronically signed by: ??Tonie Pinto MD Verified: ??03/22/2019 ?Pathologist Performed at: ??-[facility] Dept. of Pathology, [place], [place] CLINICAL INFORMATION Specimen Submitted: A - GE junction bx Clinical History and Diagnosis: Reported history of Queen's Referring Identifier: ??[id number] SPECIMEN PROCESSING A - Labeled/Fixativ e: A GE junction biopsies, formalin. Quantity/Size: Four, ranging from 0.2-1.0 cm. Tissue Description: Soft, dukes-white tissues. Sections/Proces sing: Submitted en toto ??in 1 cassette labeled A1. ??apb 03/22/2019 11:36 AM EDT [facility] GI Biopsy 03/16/2019 5:30 AM EDT 03/16/2019 5:30 AM EDT Narrative Resulting Agency Comment Spec In Lab / WKS Walter Reynaga MD PATHOLOGY/CYTOLOGY O RDERACALVIN [facility] [place] [address] documented in this encounter Visit Diagnoses Not on filedocumented in this encounter Care Teams Mining Engineer Relationship Specialty Start Date End Date Larua Ross APRN [address] [place] [phone] PCP - General Family Medicine 10/01/17 08/21/22 documented as of this encounter
--- OUTSIDE RECORDS SUMMARY | 2024-08-15 12:10 | XMS_ITS | Encounter Summary ---
Author Organization [facility] Address [facility] [place] [address] Care Team Providers Care Acid Loader Name Role Phone Laura Ross LOUIE Primary Care Provider [phone] Reason for Visit * Reason Comments Follow-up Encounter Details Date Type Department Care Team (Latest Contact Info) Description 03/06/2018 3:00 PM EDT Office [place] [address] Sheridan Cassidy MD [facility] [place] [address] Postoperative epigastric abdominal pain; S/P partial gastrectomy [...] PM EST TH Visit (TeleHealth) [place] [address] Roxana Webb MD [facility] [place] [address] documented as of this encounter Visit Diagnoses Diagnosis Postoperative epigastric abdominal pain S/P partial gastrectomy Other postprocedural status documented in this encounter Care Teams Acid Loader Relationship Specialty Start Date End Date Laura Ross APRN [address] [place] [address] PCP - General Family Medicine 10/01/17 08/21/22 documented as of this encounter
--- OUTSIDE RECORDS SUMMARY | 2024-08-15 12:10 | XMS_ITS | Encounter Summary ---
Author Organization [facility] Address [facility] [place] [address] Care Team Providers Care Vat Packer Name Role Phone Laura Ross LOUIE Primary Care Provider [phone] Encounter Details Date Type Department Care Team (Late st Contact Info) Description 01/02/2021 8:45 AM EDT Office [place] [address] Sheridan Cassidy MD [facility] [place] [address] S/P partial gastrectomy (Primary Dx); Nausea; Inadequate [...] APRN - 01/02/2021 8:45 AM EDT BSP fire support specialist Ana Maria [phone] and Lawanda [phone] Dietitians: [phone] Surgeons/ nurse practitioners: [phone] Nurse line: [phone] Dear Mora, Please see your electronic medical record note from today for details we discussed at your visit. Below is some additional general information that you may find helpful. Testing: It would be helpful if you can have your lab work drawn a couple days before your visit uriel [facility] facility so the results are available at the time of your follow up visit. If you have labwork done by your primary respiratory care technician before that date, please have a copy sent to the Bariatric Surgery Program. Please call/send my message if you have not heard from us within 2 weeks of having labs work done. Here's the link to [facility] Lab hours and locations: [email or web address] Next visit: Follow up visits are done at 4 months and 12 months after surgery and yearly thereafter. Some patients are evaluated on a more frequent basis. Please call [phone] if you do not receive an appointment [...] Blow dry area on low setting with engineering department chair. 3. Avoid excessive heat and/or [...] such as Ibuprofen (Advil), Aleve (Naproxen), Excedrin, Michell-[place] should be used sparingly after gastric bypass, [...] Our post surgery support group meets at [facility] on the first Friday of every month from 1:00 PM-2:00 PM. Nutrition and Activity apps- Baritastic, My Fitness Pal, Lose It, My Plate Internet resources: www.M-Dot Network www.Trillium Therapeutics www.bariatriceating.com www.Commissioner.[employer]/blog [facility] facebook page: [email or web address]://[email or web address] Books & Magazines: - Recipes for Life After Weight Loss Surgery by Netta Stovall - Shrink Yourself by Dr Renny Madrigal - Eating Well - www.Meeps.[employer] - Cooking Light- www.cookinglight.[employer] Anxiety: The Happiness Trap by Jd Joy The Mindfulness and acceptance workbook for anxiety By Ryan Priest. Mindful eating: What are you Hungry For? By Christiano Barraza The Mindful Diet by Dora Stevenson and the [facility] group. Emotional eating: End Emotional Eating by Nedra Birch Calming the Emotional Storm Lissettechari Ferrari documented in this encounter Progress Notes * Lsia Grady APRN - 01/02/2021 8:45 AM EDT [...] No breakfast yesterday, typically will eat 1/2 belgian muffin with slice of cheese AM Snack [...] > 30 minutes spent with patient in ndyq-bi-xzfo discussion including review of diagnosis, labs, counseling/education [...] tried a number of PPIs and other xcwr-qcq-pjehopp meds totry to combat her symptoms with [...] PM EST TH Visit (TeleHealth) [place] [address] Roxana Webb MD [facility] [place] [address] documented as of this encounter Procedures Procedure [...] 25 OH 27 21 - 100 ng/mL [facility] Vit D Interp Insufficient [facility] Blood specimen (specimen) 01/02/2021 12:23 PM EDT 01/02/2021 12:36 PM EDT Narrative Resulting Agency Comment Spec In Lab Sheridan Cassidy MD CHEMISTRY ORDERABLES Performing Organization Address City/[facility]/ZIP Co de Phone Number [facility] [place] [address] * Vitamin B12 (01/02/2021 12:23 PM EDT) Vitamin B12 446 232 - 1,245 pg/mL [facility] Blood specimen (specimen) 01/02/2021 12:23 PM EDT 01/02/2021 12:36 PM EDT Narrative Resulting Agency Comment Spec In Lab Sheridan Cassidy MD CHEMISTRY ORDERABLES Performing Organization Address [facility] Co de Phone Number [facility] [place] [address] * Vitamin B1, whole blood (01/02/2021 12:23 PM EDT) Vit B1 Lvl Wb (JANUARY) 97 70 - 180 nmol/L [facility] Comment: ADDITIONAL INFORMATION This test was developed and its performance characteristics determined by [facility] in a manner consistent with CLIA requirements. This test has not been cleared or approved by the U.S. Food and Drug Administration. Test Performed by: [facility] [place] [address] Nursing Instructor: Didier Botello M.D. Ph.D.; CLIA# [id number] Blood specimen (specimen) 01/02/2021 12:23 PM EDT 01/02/2021 1:49 PM EDT Narrative Resulting Agency Comment Spec In Lab Sheridan Cassidy MD LAB SEND OUT ORDERAB LES Performing Organization Address City/[facility]/ZIP Co de Phone Number [facility] [place] [address] * PTH (01/02/2021 12:23 PM EDT) Parathyroid Hormone 45 15 - 65 pg/mL [facility] Blood specimen (specimen) 01/02/2021 12:23 PM EDT 01/02/2021 12:36 PM EDT Narrative Resulting Agency Comment Spec In Lab Sheridan Cassidy MD CHEMISTRY ORDERABLES [facility] [place] [address] * Lipid Panel (Reflex Direct LDL) (01/02/2021 12:23 PM EDT) Cholesterol, Total 182 mg/dL [facility] Comment: Lower Risk: <200 mg/dL Average Risk: 200-239 mg/dL Higher Risk: >jf=632 mg/dL Triglyceride 58 mg/dL [facility] Comment: Average Risk/Lower Risk: <150 mg/dL Borderline High Risk: 150-199 mg/dL High Risk: 200-499 mg/dL Very High Risk: >po=450 mg/dL HDL Cholesterol 76 mg/dL [facility] Comment: Males: ?? Higher Risk: <40 mg/dL Females: ?? Higher Risk: <50 mg/dL LDL Cholesterol 94 mg/dL [facility] Comment: Lowest Risk: <100 mg/dL Lower Risk: 100-129 mg/dL Borderline High Risk: 130-159 mg/dL High Risk: 160-189 mg/dL Very High Risk: >de=666 mg/dL Cholesterol/HDL Ratio 2.4 ratio [facility] Lipid Interpretation See Note [facility] Comment: Lipid management should be guided by a patient? s ASCVD risk, goals and preferences. ACC/AHA Guidelines recommend high intensity statin if clinical ASCVD or LDL greater than or equal to 190 mg/dL. http://tinyurl.com/GOU-NEV-Gtllfaggv Adults aged 40-75 with LDL 70-189 mg/dL should have their 10 year ASCVD risk estimated with the ACC/AHA ASCVD risk mechanical estimator http://tools.acc.org/CHXZP-Rbym-Ehwgqlajx/ Statin should be discussed if risk greater [...] Cassidy MD CHEMISTRY ORDERABLES Performing Organization Address City/[facility]/ZIP Co de Phone Number [facility] [place] [address] * Iron and TIBC (01/02/2021 12:23 PM EDT) Iron 90 30 - 150 mcg/dL [facility] TIBC 336 250 - 450 mcg/dL [facility] Iron Saturation 27 20 - 50 % [facility] Blood specimen (specimen) 01/02/2021 12:23 PM EDT 01/02/2021 12:36 PM EDT Narrative Resulting Agency Comment Spec In Lab Sheridan Cassidy MD CHEMISTRY ORDERABLES Performing Organization Address City/[facility] Co de Phone Number [facility] [place] [address] * Hemogram (01/02/2021 12:23 PM EDT) White Blood Cell 5.8 4.0 - 9.5 x10(3)/[facility] Red Blood Cell 4.52 4.00 - 5.21 x10(6)/[facility] Hemoglobin 12.4 11.7 - 15.5 gm/dL [facility] Hematocrit 37.5 35.7 - 45.8 % [facility] Mean Cell Volume 83.0 82.6 - 94.4 fL [facility] Mean Cell Hemoglobin 27.4 27.1 - 32.0 pg [facility] Mean Cell Hemoglobin Concentration 33.1 31.7 - 35.0 gm/dL [facility] Platelet 242 145 - 357 x10(3)/[facility] LABORATORY RDW Standard Deviation 37.1 37.0 - 46.0 fL [facility] RDW coefficient of variation 12.2 11.5 - 14.1 % [facility] Mean Platelet Volume 10.2 7.6 - 12.9 fL [facility] NRBC% auto 0.0 % [facility] NRBC Absolute 0.000 0.000 - 0.000 x10(3)/[facility] Blood specimen (specimen) 01/02/2021 12:23 PM EDT 01/02/2021 12:36 PM EDT Narrative Resulting Agency Comment Spec In Lab Sheridan Cassidy MD HEMATOLOGY ORDERABLE S [facility] [place] [address] * Hemoglobin A1c (01/02/2021 12:23 PM EDT) Hemoglobin A1c 4.9 4.3 - 5.6 % [facility] Comment: Reference Range: 4.3 - [...] Mellitus, Diabetes Care 2013; 36: Suppl. 1, S67-74 Estimated Average Glucose 93 mg/dL [facility] Comment: eAG equivalents for HbA1c percentages: [...] into estimated average glucose values. ??Diabetes Care 2008:31(8):7046-4876. Blood specimen (specimen) 01/02/2021 12:23 PM EDT 01/02/2021 12:36 PM EDT Narrative Resulting Agency Comment Spec In Lab Sheridan Cassidy MD CHEMISTRY ORDERABLES Performing Organization Address [facility] de Phone Number [facility] [place] [address] * Folate, serum (01/02/2021 12:23 PM EDT) Folate 11.2 4.8 - 24.2 ng/mL [facility] Blood specimen (specimen) 01/02/2021 12:23 PM EDT 01/02/2021 12:36 PM EDT Narrative Resulting Agency Comment Spec In Lab Sheridan Cassidy MD CHEMISTRY ORDERABLES Performing Organization Address [facility] Co de Phone Number [facility] [place] [address] * Ferritin (01/02/2021 12:23 PM EDT) Ferritin 46 15 - 150 ng/mL [facility] Comment: Pediatric reference ranges not verified at [facility], interpret with caution. Reference ranges for females greater than 50 years of age approach values for men, i.e., 30-400 ng/mL. Blood specimen (specimen) 01/02/2021 12:23 PM EDT 01/02/2021 12:36 PM EDT Narrative Resulting Agency Comment Spec In Lab Sheridan Csasidy MD CHEMISTRY ORDERABLES [facility] [place] [address] * (ABNORMAL) Comprehensive metabolic panel (non-fasting) (01/02/2021 12:23 PM EDT) Pathologist [facility] Glucose 92 65 - 199 mg/dL [facility] Comment:Diabetes: >=200 mg/d L plus symptoms Blood Urea Nitrogen 8 8 - 18 mg/dL [facility] Creatinine 0.72 0.70 - 1.20 mg/dL [facility] Sodium 143 135 - 145 mmol/L [facility] Potassium 4.3 3.5 - 5.0 mmol/L [facility] Comment: Please note: ??Patients with WBC >100,000 may have falsely elevated Potassium levels. ??For accurate Potassium quantification in these patients send serum separator tube (gold top) for subsequent determinations. ??Contact the Clinical Chemistry Laboratory if there are any questions. Chloride 105 98 - 107 mmol/L [facility] Carbon Dioxide 30 22 - 31 mmol/L [facility] Anion Gap 8 5 - 15 mmol/L [facility] Calcium 9.6 8.5 - 10.5 mg/dL [facility] Protein, Total 7.0 6.1 - 8.0 gm/dL [facility] Albumin 4.3 3.2 - 5.2 gm/dL [facility] Aspartate Aminotransferase 31(H) 0 - 30 unit/L [facility] Alanine Aminotransferase 27 0 - 30 unit/L [facility] Alkaline Phosphatase 82 35 - 105 unit/L [facility] Bilirubin, Total 0.4 0.2 - 1.3 mg/dL [facility] Est Glomerular Filtration Rate 100 >=60 mL/min/1. 73 m?? [facility] Comment: This patient? s estimated glomerular [...] Cassidy MD CHEMISTRY ORDERABLES Performing Organization Address City/State/[facility] Co de Phone Number [facility] [place] [address] documented in this encounter Visit Diagnoses Diagnosis S/P partial gastrectomy- Primary Other postprocedural status Nausea Nausea alone Inadequate nutrition Gastroesophageal reflux disease, unspecified whether esophagitis present documented in this encounter Care Teams Vat Packer Relationship Specialty Start Date End Date Laura Ross APRN [address] [place] [address] PCP - General Family Medicine 10/01/17 08/21/22 documented as of this encounter
--- OUTSIDE RECORDS SUMMARY | 2024-08-15 12:10 | XMS_ITS | Encounter Summary ---
Author Organization [facility] [place] [place] [address] Care Team Providers Care Decorator Consultant Name Role Phone Cody Laura Andre BAKERY DECORATOR Primary Care Provider [phone] Encounter Details Date Type Department Care Team (Late st Contact Info) Description 06/18/2019 12:10 AM EDT Ancillary Procedure Radiology Library at [facility] [place] [place] [address] Laura Ross, BAKERY DECORATOR [address] [place], [place] [id number] Social History Tobacco Use Types Packs/Day Years [...] PM EST TH Visit (TeleHealth) Endocrinology at [facility] [place] [place] [address] Roxana Webb MD [facility] [place] [address] documented as of this encounter Procedures Procedure Name Priority Date/Time Associated Diagnosis Comments FILM LIBRARY STORAGE ONLY DX WRIST Routine 06/18/2019 12:10 AM EDT documented in this encounter Results * Film Library- Storage Only DX Wrist (06/18/2019 12:10 AM EDT) Narrative MELODIE - 08/25/2019 4:19 PM EST This exam is auto-finalizing. It's purpose is for storage only. Laura Ross APRN Karen FILM LIBRARY ORD ERABLES [place], [place] documented in this encounter Visit Diagnoses Not on filedocumented in this encounter Care Teams Decorator Consultant Relationship Specialty Start Date End Date Laura Ross APRN [address] [place] [address] PCP - General Family Medicine 10/01/17 08/21/22 documented as of this encounter
--- OUTSIDE RECORDS SUMMARY | 2024-08-15 12:10 | XMS_ITS | Encounter Summary ---
Author Organization [facility] Address [facility] [place] [address] Care Team Providers Care Mill House Supervisor Name Role Phone Laura Ross LOUIE Primary Care Provider [phone] Encounter Details Date Type Department Care Team (Late st Contact Info) Description 12/18/2017 10:40 AM EDT Office Visit [place] [address] Sheridan Cassidy MD [facility] [place] [address] Nedra Ling, [place] [facility] [place] [address] S/P partial gastrectomy Social History Tobacco Use [...] EST TH Visit (TeleHealth) [place] [address] Roxana Webb MD [facility] [place] [place] [address] documented as of this encounter Visit Diagnoses Diagnosis S/P partial gastrectomy Other postprocedural status documented in this encounter Care Teams Mill House Supervisor Relationship Specialty Start Date End Date Laura Ross APRN [address] [place], [place] [id number] PCP - General Family Medicine 10/01/17 08/21/22 documented as of this encounter
--- OUTSIDE RECORDS SUMMARY | 2024-08-15 12:10 | XMS_ITS | Encounter Summary ---
Author Organization [facility] [place] [address] Care Team Providers Care Manager Medical Affairs Name Role Phone Laura Ross APRN Primary Care Provider [phone] Encounter Details Date Type Department Care Team (Late st Contact Info) Description 12/12/2020 External [place] [address] Provider, Scanning Social History Tobacco Use Types [...] PM EST TH Visit (TeleHealth) [place] [address] Roxana Webb MD [facility] [place] [address] documented as of this encounter Procedures Procedure Name Priority Date/Time Associated Diagnosis Comments SURGICAL PATHOLOGY SCAN Routine 12/12/2020 documented in this encounter Results * Scan Doc: Surgical Pathology (12/12/2020) Historical Provider MEDIA MGR SCAN EX T ORDR/RSLT documented in this encounter Visit Diagnoses Not on filedocumented in this encounter Care Teams Manager Medical Affairs Relationship Specialty Start Date End Date Laura Ross APRN [address] [place], [place] [id number] PCP - General Family Medicine 10/01/17 08/21/22 documented as of this encounter
--- OUTSIDE RECORDS SUMMARY | 2024-08-15 12:10 | XMS_ITS | Encounter Summary ---
Author Organization [facility] [place] [address] Care Team Providers Care Turnstile Collector Name Role Phone Christiane Rossna Andre SUPERVISOR DRILLING AND SHOOTING Primary Care Provider [phone] Encounter Details Date Type Department Care Team (Late st Contact Info) Description 06/18/2019 12:05 AM EDT Ancillary Procedure Radiology Library at [facility] [place] [address] Laura Ross, SUPERVISOR DRILLING AND SHOOTING [address] [place] [address] Social History Tobacco Use Types Packs/Day Years [...] PM EST TH Visit (TeleHealth) Endocrinology at [facility] [place] [address] Roxana Webb MD [facility] [place] [address] documented as of this encounter Procedures Procedure Name Priority Date/Time Associated Diagnosis Comments FILM LIBRARY STORAGE ONLY MR WRIST Routine 06/18/2019 12:05 AM EDT documented in this encounter Results * Film Library- Storage Only MR Wrist (06/18/2019 12:05 AM EDT) Narrative MELODIE - 08/25/2019 4:16 PM EST This exam is auto-finalizing. It's purpose is for storage only. Laura Ross APRN Karen FILM LIBRARY ORD ERABLES [place], [place] documented in this encounter Visit Diagnoses Not on filedocumented in this encounter Care Teams Turnstile Collector Relationship Specialty Start Date End Date Laura Ross APRN [address] [place] [address] PCP - General Family Medicine 10/01/17 08/21/22 documented as of this encounter
--- OUTSIDE RECORDS SUMMARY | 2024-08-15 12:10 | XMS_ITS | Encounter Summary ---
Author Organization [facility] [place] [address] Care Team Providers Care Eligibility Supervisor Name Role Phone Laura Ross APRN Primary Care Provider [phone] Encounter Details Date Type Department Care Team (Late st Contact Info) Description 10/04/2020 Ancillary Procedure Radiology Library at [facility] [place] [address] Olivier Sanz MD [facility] [place] [address] Social History Tobacco Use Types Packs/Day Years [...] PM EST TH Visit (TeleHealth) Endocrinology at [facility] [place] [address] Roxana Webb MD [facility] [place] [address] documented as of this encounter Procedures Procedure Name Priority Date/Time Associated Diagnosis Comments FILM LIBRARY STORAGE ONLY DX WRIST Routine 10/04/2020 12:00 AM EST documented in this encounter Results * Film Library- Storage Only DX Wrist (10/04/2020 12:00 AM EST) Narrative [facility] - 11/03/2020 9:10 AM EST This exam is auto-finalizing. It's purpose is for storage only. Olivier Sanz MD IMG FILM LIBRARY ORD ERABLES Performing Organization Address City/State/[facility] Co de Phone Number [place], [place] documented in this encounter Visit Diagnoses Not on filedocumented in this encounter Care Teams Eligibility Supervisor Relationship Specialty Start Date End Date Laura Ross, PROOF TECHNICIAN HELPER [address] [place] [address] PCP - General Family Medicine 10/01/17 08/21/22 documented as of this encounter
--- OUTSIDE RECORDS SUMMARY | 2024-08-15 12:10 | XMS_ITS | Encounter Summary ---
Author Organization [facility] [place] [address] Care Team Providers Care Tube Laser Operator Name Role Phone Laura Ross LOUIE Primary Care Provider Reason for Visit * Auth/Cert Specialty Diagnoses / Procedures Referred By Martha broussard Referred To Contact Diagnoses SEVERE ABDOMINAL PAIN Procedures PRO UPPER GI ENDOSCOPY, DIAGNOSTIC EGD, UPPER GI ENDOSCOPY Referral ID Status Reason Start Date Expiration Date Visits Re quested Visits Authorized [id number] 1 1 Encounter Details Date Type Department Care Team (Late st Contact Info) Description 03/09/2018 1:00 PM EDT - 03/09/2018 1:30 PM EDT Surgery [place] [address] Sheridan Cassidy MD [facility] [place] [address] EGD WITH BIOPSY (WRVU 2.39) Social History [...] better as expected. Friday-Friday Same Day Endo [phone]-8p Otherwise contact [phone] and ask to speak to the director of vocational training concrete worker Follow-up care is a diaz part of [...] FUNDOPLASTY performed by Sheridan Cassidy MD at [facility] MAIN OR ??? PRO LAP, ESOPHAGUS, OTHER PROC N/A 11/26/2017 LAPAROSCOPIC REVISION OF GABRIELLA FUNDOPLASTY (WRVU *) performed by Sheridan Cassidy MD at [facility] MAIN OR ??? PRO LAP, STOMACH, OTHER, W/O TUBE N/A 11/26/2017 LAPAROSCOPIC GASTRECTOMY, PARTIAL, W EVIN-EN-Y RECONSTRUCTION (WRVU *) performed by Sheridan Cassidy MD at [facility] MAIN OR ??? PRO UPPER GI ENDOSCOPY, BIOPSY 09/04/2012 EGD WITH BIOPSY performed by Didier Jones MD at [facility] ENDOSCOPY ??? PRO UPPER GI ENDOSCOPY, BIOPSY N/A 07/22/2016 UPPER GASTROINTESTINAL ENDOSCOPY,WITH BIOPSY SINGLE OR MULTIPLE performed by Sheridan Cassidy MD [facility] ENDOSCOPY ??? PRO UPPER GI ENDOSCOPY, BIOPSY N/A 10/20/2017 EGD WITH BIOPSY (WRVU 2.49) performed by Sheridan Cassidy MD at [facility] ENDOSCOPY ??? PRO UPPER GI ENDOSCOPY, DIAGNOSTIC 11/25/2012 ENDOSCOPY, UPPER GI, DIAGNOSTIC, WITH OR WITHOUT SPECIMENS [facility]?? PRO UPPER GI ENDOSCOPY, DIAGNOSTIC 07/18/2014 EGD, UPPER GI ENDOSCOPY performed by Sheridan Cassidy MD at [facility] ENDOSCOPY ??? PRO UPPER GI ENDOSCOPY, DIAGNOSTIC N/A 11/26/2017 ENDOSCOPY, UPPER GI, DIAGNOSTIC, WITH OR WITHOUT SPECIMENS performed by [facility] ??? UPPER GI ENDOSCOPY, EXAM 09/04/2012 UPPER GI ENDOSCOPY performed by Didier Jones MD at [facility] ENDOSCOPY No current facility-administered medications [...] PM EST TH Visit (TeleHealth) [place] [address] Roxana Webb MD [facility] [place] [address] documented as of this encounter Procedures Procedure [...] PM EDT 03/09/2018 1:20 PM EDT Narrative [facility] - 03/09/2018 1:20 PM EDT Specimen requisition ordered. ??Separate Pathology report to follow Sheridan Cassidy MD PATHOLOGY/CYTOLOGY O RDERACALVIN [facility] [place] [address] * Surgical Pathology Report (03/09/2018 1:13 PM EDT) Final Diagnosis [id number] ? Location: 4T; EA11; A The signing pathologist has (i) examined the relevant preparation(s) for the specimen(s) and (ii) rendered or confirmed the diagnosis(es). . ?Surgical Pathology DIAGNOSIS Stomach, biopsy: Gastric antral and body-fundic mucosa with pathcy increase in chronic inflammatory cells. See discussion #1. Electronically signed by: ??Cpao MCGOVERN PhD, Kevin Ramirez Verified: ??03/11/2018 ?Pathologist Performed at: ??-[facility] Dept. of Pathology, [place], [place] DISCUSSION 1. ??There is no histological evidence of H.pylori. 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 Quantity/Size: Two, averaging 0.4 cm. Tissue Description: Soft dukes tissue. Sections/Process ing: (T1) ??tiago 03/11/2018 12:42 PM EDT [facility] GI Biopsy 03/09/2018 1:13 PM EDT 03/09/2018 1:13 PM EDT Sheridan Cassidy MD PATHOLOGY/CYTOLOGY Britany GOMEZ [facility] [place] [address] * UPPER GI ENDOSCOPY (03/09/2018 12:38 PM EDT) UPPER GI ENDOSCOPY [facility] Endoscopy ___ Procedure Date: 03/09/2018 12:38 PM ? Patient Name: Mora Bolanos ? Date of : 1975 ? Age: 42 ? Order #: [id number] ? Instrument Name: [id number] ? ___ Procedure: ? Upper GI endoscopy Indications: ? Dysphagia Providers: ? Sheridan Cassidy MD, Alexandra Taylor, ? RN, Symone Queen, Teacher Asst Referring : ?Laura Ross Medicines: ? Fentanyl 200 micrograms [...] the physician, the nurse and the ? fire technician in the pre-procedure area ? in [...] by congestion. This was traversed. The ? idjzx-uf-zwybopr limb was characterized by ? congestion. Biopsies [...] Procedure Code(s): ?? --- Professional --- ? 59346, Esophagogastroduode noscopy, ? flexible, transoral; with biopsy, ? single or multiple ? 13458, 59, Moderate sedation services ? provided by [...] ? years or older CPT copyright 2016 [employer]. All rights reserved. The codes documented in this report are preliminary and upon cpc coder review may be revised to meet current compliance requirements. Attending Participation: ? I personally performed the entire procedure. ? Sheridan Cassidy MD 03/09/2018 1:26:14 PM This report has been signed electronically. Number of Addenda: 0 Note Initiated On: 03/09/2018 12:38 PM PROVATION 03/09/2018 12:3 8 PM EDT Laura Gannell MILK BOTTLER GENERAL SURGICAL ORD ERABLES PROVATION documented in [...] RN) documented in this encounter Care Teams Tube Laser Operator Relationship Specialty Start Date End Date Laura Ross APRN [address] [place] [place] [address] PCP - General Family Medicine 10/01/17 08/21/22 documented as of this encounter
--- OUTSIDE RECORDS SUMMARY | 2024-08-15 12:10 | XMS_ITS | Encounter Summary ---
Author Organization [facility] [place] [address] Care Team Providers Care Aircraft Sales Representative Name Role Phone Laura Ross FROG CATCHER Primary Care Provider [phone] Encounter Details Date Type Department Care Team (Late st Contact Info) Description 07/19/2019 Ancillary Procedure Radiology Library at [facility] [place] [phone] Laura Ross, FROG CATCHER [address] [place] [address] Social History Tobacco Use Types Packs/Day Years [...] PM EST TH Visit (TeleHealth) Endocrinology at [facility] [place] [address] Roxana Webb MD [facility] [place] [address] documented as of this encounter Procedures Procedure Name Priority Date/Time Associated Diagnosis Comments FILM LIBRARY STORAGE ONLY ULTRASOUND STUDY Routine 07/19/2019 12:00 AM EST documented in this encounter Results * Film Library- Storage Only Ultrasound Study (07/19/2019 12:00 AM EST) Narrative [facility] - 08/25/2019 4:52 PM EST This exam is auto-finalizing. It's purpose is for storage only. Laura Ross APRN IMG FILM LIBRARY ORD ERABLES Performing Organization Address City/State/[facility] Co de Phone Number [place], [place] documented in this encounter Visit Diagnoses Not on filedocumented in this encounter Care Teams Aircraft Sales Representative Relationship Specialty Start Date End Date Laura Ross APRN [address] [place] [address] PCP - General Family Medicine 10/01/17 08/21/22 documented as of this encounter
--- OUTSIDE RECORDS SUMMARY | 2024-08-15 12:10 | XMS_ITS | Encounter Summary ---
Author Organization [facility] [address] Care Team Providers Care Garment Liner Name Role Phone Laura Ross LOUIE Primary Care Provider [phone] Reason for Visit * Auth/Cert Specialty Diagnoses / Procedures Referred By Martha broussard Referred To Contact Diagnoses SEVERE ABDOMINAL PAIN Procedures PRO UPPER GI ENDOSCOPY, DIAGNOSTIC EGD, UPPER GI ENDOSCOPY Referral ID Status Reason Start Date Expiration Date Visits Re quested Visits Authorized [id number] 1 1 Encounter Details Date Type Department Care Team (Latest Contact Info) Description 03/09/2018 12:10 PM EDT - 03/09/2018 2:06 PM EDT Hospital En[place] [address] Sheridan Cassidy MD [facility] [place] [address] Discharge Disposition: Home Social History Tobacco Use [...] better as expected. Friday-Friday Same Day Endo [phone] 7a-8p Otherwise contact [phone] and ask to speak to the supply chain buyer jury consultant Follow-up care is a diaz part of [...] FUNDOPLASTY performed by Sheridan Cassidy MD at [facility] MAIN OR ??? PRO LAP, ESOPHAGUS, OTHER PROC N/A 11/26/2017 LAPAROSCOPIC REVISION OF GABRIELLA FUNDOPLASTY (WRVU *) performed by Sheridan Cassidy MD at [facility] MAIN OR ??? PRO LAP, STOMACH, OTHER, W/O TUBE N/A 11/26/2017 LAPAROSCOPIC GASTRECTOMY, PARTIAL, W EVIN-EN-Y RECONSTRUCTION (WRVU *) performed by Sheridan Cassidy MD at [facility] MAIN OR ??? PRO UPPER GI ENDOSCOPY, BIOPSY 09/04/2012 EGD WITH BIOPSY performed by Didier Jones MD at [facility] ENDOSCOPY ??? PRO UPPER GI ENDOSCOPY, BIOPSY N/A 07/22/2016 UPPER GASTROINTESTINAL ENDOSCOPY,WITH BIOPSY SINGLE OR MULTIPLE performed by Sheridan Cassidy MD [facility] ENDOSCOPY ??? PRO UPPER GI ENDOSCOPY, BIOPSY N/A 10/20/2017 EGD WITH BIOPSY (WRVU 2.49) performed by Sheridan Cassidy MD at [facility] ENDOSCOPY ??? PRO UPPER GI ENDOSCOPY, DIAGNOSTIC 11/25/2012 ENDOSCOPY, UPPER GI, DIAGNOSTIC, WITH OR WITHOUT SPECIMENS performed by Sheridan Cassidy MD at [facility] OR ??? PRO UPPER GI ENDOSCOPY, DIAGNOSTIC 07/18/2014 EGD, UPPER GI ENDOSCOPY performed by Sheridan Cassidy MD at [facility] ENDOSCOPY ??? PRO UPPER GI ENDOSCOPY, DIAGNOSTIC N/A 11/26/2017 ENDOSCOPY, UPPER GI, DIAGNOSTIC, WITH OR WITHOUT SPECIMENS [facility] ??? UPPER GI ENDOSCOPY, EXAM 09/04/2012 UPPER GI ENDOSCOPY performed by Didier Jones MD at [facility] ENDOSCOPY No current facility-administered medications [...] PM EST TH Visit (TeleHealth) [place] [address] Roxana Webb MD [facility] [place] [address] documented as of this encounter Procedures Procedure [...] PM EDT 03/09/2018 1:20 PM EDT Narrative [facility] - 03/09/2018 1:20 PM EDT Specimen requisition ordered. ??Separate Pathology report to follow Sheridan Cassidy MD PATHOLOGY/CYTOLOGY O RDERABLES [facility] [place] [address] * Surgical Pathology Report (03/09/2018 1:13 PM EDT) Final Diagnosis [id number] ? Location: 4T; EA11; A The signing pathologist has (i) examined the relevant preparation(s) for the specimen(s) and (ii) rendered or confirmed the diagnosis(es). . ?Surgical Pathology DIAGNOSIS Stomach, biopsy: Gastric antral and body-fundic mucosa with pathcy increase in chronic inflammatory cells. See discussion #1. Electronically signed by: ??Capo MCGOVERN PhD, Kevin Ramirez Verified: ??03/11/2018 ?Pathologist Performed at: ??-[facility] Dept. of Pathology, [place], [place] DISCUSSION 1. ??There is no histological evidence of H.pylori. 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 Quantity/Size: Two, averaging 0.4 cm. Tissue Description: Soft dukes tissue. Sections/Process ing: (T1) ??tiago 03/11/2018 12:42 PM EDT [facility] GI Biopsy 03/09/2018 1:13 PM EDT 03/09/2018 1:13 PM EDT Sheridan Cassidy MD PATHOLOGY/CYTOLOGY O [place] [facility] [place] [address] * UPPER GI ENDOSCOPY (03/09/2018 12:38 PM EDT) UPPER GI ENDOSCOPY [facility] Endoscopy ___ Procedure Date: 03/09/2018 12:38 PM ? Patient Name: Mora Bolanos ? Date of : 1975 ? Age: 42 ? Order #: [id number] ? Instrument Name: [id number] ? ___ Procedure: ? Upper GI endoscopy Indications: ? Dysphagia Providers: ? Sheridan Cassidy MD, Alexandra Taylor, ? RN, Symone Queen, Relay Adjuster Referring : ?Laura Ross Medicines: ? Fentanyl [...] the physician, the nurse and the ? vehicle modification technician in the pre-procedure area ? in [...] by congestion. This was traversed. The ? oafth-nw-asdxvvk limb was characterized by ? congestion. Biopsies [...] Procedure Code(s): ?? --- Professional --- ? 48948, Esophagogastroduode noscopy, ? flexible, transoral; with biopsy, ? single or multiple ? 90519, 59, Moderate sedation services ? provided by [...] ? years or older CPT copyright 2016 [employer]. All rights reserved. The codes documented in this report are preliminary and upon cat scan technologist review may be revised to meet current compliance requirements. Attending Participation: ? I personally performed the entire procedure. ? Sheridan Cassidy MD 03/09/2018 1:26:14 PM This report has been signed electronically. Number of Addenda: 0 Note Initiated On: 03/09/2018 12:38 PM PROVATION 03/09/2018 12:3 8 PM EDT Laura Ross ICU SPECIALIST GENERAL SURGICAL ORD ERABLES PROVATION documented [...] Alexandra Taylor RN)1309 (Given - Provider: Alexandra Taylor, CHELO) midazolam (PF) (VERSED) 1 mg/mL multi-dose injection (CANCELED) ONCE PRN, Starting on Fri03/09/18 at 1300, Until Fri03/09/18 at 1434, Intra-Operative (Intra-Procedure), Routine 1300 (Given - Provid er: Alexandra Taylor RN)1303 (Given - Provider: Alexandra Taylor RN)1306 (Given - Provider: Alexandra Taylor RN)1309 (Given - Provider: Alexandra Taylor RN)5942 (Given - Provider: Alexandra Taylor RN) documented in this encounter Care Teams Garment Liner Relationship Specialty Start Date End Date Laura Ross APRN [address] [place] [address] PCP - General Family Medicine 10/01/17 08/21/22 documented as of this encounter
--- OUTSIDE RECORDS SUMMARY | 2024-08-15 12:10 | XMS_ITS | Encounter Summary ---
Author Organization [facility] Address [facility] [place] [address] Care Team Providers Care Management Retail Intern Name Role Phone Laura Ross LOUEI Primary Care Provider [phone] Reason for Visit * Diagnostic Test (Routine) - Closed Specialty Diagnoses / Procedures Referred By Martha broussard Referred To Contact Radiology Diagnoses S/P partial gastrectomy Procedures XR Fluoro Barium Swallow (Single Contrast) Sheridan Cassidy MD [facility] [place] [address] [facility] Rad Xray [address] [place] [address] [place] [address] Referral ID Status Reason Start Date Expiration Date V isits Requested Visits Authorized [id number] Closed Specialty Service Requested 12/18/2020 06/19/2022 1 1 Encounter Details Date Type Department Care Team (Latest Contact Info) Description 12/27/2020 8:26 AM EDT - 12/27/2020 11:59 PM EDT Hospital Encounter XRay at [address] [place] [address] Sheridan Cassidy MD [facility] [place] [place] [address] S/P partial gastrectomy Discharge Disposition: [...] PM EST TH Visit (TeleHealth) [place] [address] Roxana Webb MD [facility] [place] [address] documented as of this encounter Procedures Procedure Name Priority Date/Time Associated Diagnosis Comments XR FLUORO BARIUM SWALLOW (DOUBLE CONTRAST) Routine 12/27/2020 9:26 AM EDT S/P partial gastrectomy documented in this encounter Results * XR Fluoro Barium Swallow (Double Contrast) (12/27/2020 9:26 AM EDT) Anatomical Region Laterality Modality N/A Radio Fluoroscop y Impressions 12/27/2020 11:29 AM EDT Status post Magdaleno fundoplication with a lack [...] questions please contact the health career development director that requested your imaging first. ? Electronically signed by: KRISTIN RICO MD, [facility] ([phone]), at 12/27/2020 11:29 AM Narrative 12/27/2020 11:29 AM EDT EXAMINATION: XR FLUORO BARIUM SWALLOW (DOUBLE CONTRAST) CLINICAL HISTORY: GERD, h/o slipped Magdaleno - check wrap TECHNIQUE: Double contrast esophagram was performed. Fluoroscopic spot films were obtained. Fluoro time: 1.6 minutes COMPARISON: Prior barium swallow studies, most recently 09/19/2017, abdominal radiograph 12/07/2018 FINDINGS: AP desktop publishing associate radiograph: The visualized lung bases are clear. [...] distal esophagus in a patient status post Magdaleon is not as pronounced on the current [...] most recently 09/19/2017, abdominalradiograph 12/07/2018 FINDINGS: AP desktop publishing associate radiograph: The visualized lung bases are clear. [...] have questions please contactthe health career development director that requested your imaging first. Electronically signed by: KRISTIN RICO MD, [facility]([phone]), at 12/27/2020 11:29 AM Sheridan Cassidy MD IM FLUORO ORDERABLE S documented in this encounter Visit Diagnoses Diagnosis S/P partial gastrectomy Other postprocedural status documented in this encounter Administered Medications Inactive Administered Medications - up to 3 most recent administrations Medication Order MAR Action Action Date Dose Rate Site barium sulfate (E-Z Disk) tablet 700 mg 700 mg, Oral, ONCE, 1 dose, On 4/14/21 at 0945, Routine Given 12/27/2020 9:45 AM [...] mLs documented in this encounter Care Teams Management Retail Intern Relationship Specialty Start Date End Date Laura Ross APRN [address] [place] [address] PCP - General Family Medicine 10/01/17 08/21/22 documented as of this encounter
--- OUTSIDE RECORDS SUMMARY | 2024-08-15 12:10 | XMS_ITS | Encounter Summary ---
Author Organization [facility] [place] [address] Care Team Providers Care Creative Art Director Name Role Phone Laura Ross SUPERVISOR COIN MACHINE Primary Care Provider [phone] Encounter Details Date Type Department Care Team (Late st Contact Info) Description 06/18/2019 Ancillary Procedure Radiology Library at [facility] [phone] Laura Ross, SUPERVISOR COIN MACHINE [address] [place] [address] Social History Tobacco Use Types Packs/Day Years [...] PM EST TH Visit (TeleHealth) Endocrinology at [facility] [address] Roxana Webb MD [facility] [place] [address] documented as of this encounter Procedures Procedure Name Priority Date/Time Associated Diagnosis Comments FILM LIBRARY STORAGE ONLY DX WRIST Routine 06/18/2019 12:00 AM EDT documented in this encounter Results * Film Library- Storage Only DX Wrist (06/18/2019 12:00 AM EDT) Narrative [facility] - 08/25/2019 4:15 PM EST This exam is auto-finalizing. It's purpose is for storage only. Laura Ross APRN G FILM LIBRARY ORD ERABLES Performing Organization Address City/State/[facility] Co de Phone Number [place], [place] documented in this encounter Visit Diagnoses Not on filedocumented in this encounter Care Teams Creative Art Director Relationship Specialty Start Date End Date Laura Ross APRN [address] [place] [address] PCP - General Family Medicine 10/01/17 08/21/22 documented as of this encounter
--- OUTSIDE RECORDS SUMMARY | 2024-08-15 12:10 | XMS_ITS | Encounter Summary ---
[place] [address] Care Team Providers Care Feed Manager Name Role Phone Laura Ross LOUIE Primary Care Provider [phone] Encounter Details Date Type Department Care Team (Late st Contact Info) Description 12/04/2017 Telephone [place] [phone] Aleja Curtis, RN Social History Tobacco Use [...] PERTINENT PAST MEDICAL HISTORY: Pt is s/p [facility] Operative Note ?? Patient Name: Mora Bolanos : [id number] MR#: [id number] ?? Case Date: 11/26/2017 ?? Surgeon: Surgeon(s) [...] PM EST TH Visit (TeleHealth) [place] [address] Roxana Webb MD [facility] [place] [address] documented as of this encounter Visit Diagnoses Not on filedocumented in this encounter Care Teams Feed Manager Relationship Specialty Start Date End Date Laura Ross APRN [address] [place] [address] PCP - General Family Medicine 10/01/17 08/21/22 documented as of this encounter
--- OUTSIDE RECORDS SUMMARY | 2024-08-15 12:10 | XMS_ITS | Encounter Summary ---
Author Organization [facility] [place] [address] Care Team Providers Care Fnp Name Role Phone Laura Ross APRN Primary Care Provider [phone] Encounter Details Date Type Department Care Team (Late st Contact Info) Description 02/20/2018 Notes Only Hematology [place] [address] Gabriel Young MD [facility] HEMATOLOGY/[place] [address] Social History Tobacco Use Types Packs/Day Years [...] PM EST TH Visit (TeleHealth) [place] [address] Roxana Webb MD [facility] [place] [address] documented as of this encounter Visit Diagnoses Not on filedocumented in this encounter Care Teams Fnp Relationship Specialty Start Date End Date Laura Ross APRN [address] [place] [address] PCP - General Family Medicine 10/01/17 08/21/22 documented as of this encounter
--- OUTSIDE RECORDS SUMMARY | 2024-08-15 12:10 | XMS_ITS | Encounter Summary ---
Author Organization [facility] [place] [address] Care Team Providers Care Pro Shop Attendant Name Role Phone Laura Ross MACHINE FEEDER RAW STOCK Primary Care Provider [phone] Encounter Details Date Type Department Care Team (Late st Contact Info) Description 08/24/2019 Ancillary Procedure Radiology Library at [facility] [place] [phone] Laura Ross, MACHINE FEEDER RAW STOCK [address] [place] [address] Social History Tobacco Use Types Packs/Day Years [...] PM EST TH Visit (TeleHealth) Endocrinology at [facility] [place] [address] Roxana Webb MD [facility] [place] [address] documented as of this encounter Procedures Procedure Name Priority Date/Time Associated Diagnosis Comments FILM LIBRARY STORAGE ONLY ULTRASOUND STUDY Routine 08/24/2019 12:00 AM EST documented in this encounter Results * Film Library- Storage Only Ultrasound Study (08/24/2019 12:00 AM EST) Narrative [facility] - 08/25/2019 4:49 PM EST This exam is auto-finalizing. It's purpose is for storage only. Laura Ross APRN IMG FILM LIBRARY ORD ERABLES Performing Organization Address City/State/[facility] Co de Phone Number [place], [place] documented in this encounter Visit Diagnoses Not on filedocumented in this encounter Care Teams Pro Shop Attendant Relationship Specialty Start Date End Date Laura Ross APRN [address] [place] [address] PCP - General Family Medicine 10/01/17 08/21/22 documented as of this encounter
--- OUTSIDE RECORDS SUMMARY | 2024-08-15 12:10 | XMS_ITS | Encounter Summary ---
Author Organization [facility] [place] [address] Care Team Providers Care Pickle Sorter Name Role Phone Laura Ross LOUIE Primary Care Provider [phone] Encounter Details Date Type Department Care Team (Late st Contact Info) Description 12/18/2020 Orders [place] [address] Sheridan Cassdiy MD [facility] [place] [address] S/P partial gastrectomy Social History Tobacco Use [...] PM EST TH Visit (TeleHealth) [place] [address] Roxana Webb MD [facility] [place] [address] documented as of this encounter Visit Diagnoses Diagnosis S/P partial gastrectomy Other postprocedural status documented in this encounter Care Teams Pickle Sorter Relationship Specialty Start Date End Date Laura Ross, LOUIE [address] [place] [address] PCP - General Family Medicine 10/01/17 08/21/22 documented as of this encounter
--- OUTSIDE RECORDS SUMMARY | 2024-08-15 12:10 | XMS_ITS | Encounter Summary ---
Author Organization [facility] Address [facility] [place] [address] Care Team Providers Care Building Trades Teacher Name Role Phone Laura Ross LOUIE Primary Care Provider [phone] Reason for Visit * Auth/Cert Specialty Diagnoses / Procedures Referred By Matrha broussard Referred To Contact Diagnoses FAILED FUNDOPLICATION Procedures PRO LAP, ESOPHAGUS, OTHER PROC PRO LAP, STOMACH, OTHER, W/O TUBE PRO UPPER GI ENDOSCOPY, DIAGNOSTIC LAPAROSCOPIC REVISION OF GABRIELLA FUNDOPLASTY (WRVU *) LAPAROSCOPIC GASTRECTOMY, PARTIAL, W EVIN-EN-Y RECONSTRUCTION (WRVU *) ENDOSCOPY, UPPER GI, DIAGNOSTIC, WITH OR WITHOUT SPECIMENS Referral ID Status Reason Start Date Expiration Date Visits Re quested Visits Authorized [id number] 1 1 Encounter Details Date Type Department Care Team (Latest Contact Info) Description 11/26/2017 1:39 PM EDT - 11/29/2017 6:46 PM EDT Hospital Encounter [address] [place] [address] Sheridan Mosher MD [facility] [place] [address] Discharge Disposition: Home Social History Tobacco Use [...] Revision of Gabriella Fundoplasty with Partial Gastrectomy [id number] Reconstruction and Intraoperative Upper Endoscopy Surgeons: Surgeon(s) [...] strict medically supervised weight loss with an ADMINISTRATIVE TECH in [place] for 3 months and still gained weight. 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 She continues to be Vitamin D deficient [...] changed to oral pain medications and the EMBEDDED PROCESSOR was discontinued on POD# 1. She was [...] Dorinda Covington MD Obstetrics and Gynecology at [facility] [phone] 12/18/2017 10:40 AM Nedra Ling LD; Sheridan Mosher MD General Surgery at [facility] [phone] 02/25/2018 2:00 PM Nina Ibanez Hematology/Oncology at [facility] [phone] Instructions Given to Patient at Discharge: SURGERY DISCHARGE INFORMATION SURGERY SUPPORT TEAM CONTACT NUMBERS (Mon-Fri 8am - 5pm): General Surgery [phone] Surgeons: Karen Cherry and Ange [phone] Dietitians: [phone] Outside of regular business hours, including weekends and holidays: Ask for General Surgery resident education specialist [phone] FOR EMERGENCIES: CALL 911 (trouble breathing, chest [...] weeks at the General Surgery Outpatient Clinic (Rn Shift Mgr 4, [facility] [facility] Future Appointments Date Time Provider Department Center 12/10/2017 1:00 PM Dorinda Covington MD [facility] [address] [place] [address] CLIN 12/18/2017 10:40 AM Sheridan Mosher MD [facility] 02/25/2018 2:00 PM Nina Ibanez [facility] BATHING AND WOUND CARE: ?? You [...] Follow up with primary care provider or clinical safety specialist in 1-2 weeks in order to [...] for life. Signed: Lynda De Santiago MD [facility] [id number] Primary Care Physician: Laura Ross APRN [address] [place] [id number] documented in this encounter Discharge Instructions * Patient Instructions* Ange Cordon MD - 11/28/2017 4:07 PM EDT SURGERY DISCHARGE INFORMATION SUPPORT TEAM CONTACT NUMBERS (Mon-Fri 8am - 5pm): General Surgery and Bariatric Surgery [phone] Surgeons: Karen Cherry and Ange [phone] Extractor Plant Operator: [phone] Dietitians: [phone] Outside of regular business hours, including weekends and holidays: Ask for General Surgery resident education specialist [phone] FOR EMERGENCIES: CALL 911 (trouble breathing, chest [...] weeks at the General Surgery Outpatient Clinic (Rn Shift Mgr , [facility] [facility]). Future Appointments Date Time Provider Department Center 12/10/2017 1:00 PM Dorinda Covington MD [facility] [address] [place] [address] CLIN 12/18/2017 10:40 AM Sheridan Mosher MD [facility] 02/25/2018 2:00 PM Nina Ibanez [facility] BATHING AND WOUND CARE: ?? You [...] Follow up with primary care provider or clinical safety specialist in 1-2 weeks in order to [...] NEURO: Pain control with IV Tylenol and EMBEDDED PROCESSOR Dilaudid; transition to elixir Tylenol and Oxycodone. [...] 11/27/2017 5:23 AM EDT Pt arrived to [facility] at 0520 after report received from Mara in PACU. Pt oriented to floor, call system, purposeful rounding, fall prevention program. VSS. Lap sites on abdomen CDI under bandaids. Denies nausea, states pain gets better with EMBEDDED PROCESSOR but is afraid to fall asleep because of pain. Denies CP/SOB * Mara Marie RN - 11/27/2017 12:53 AM EDT 2300 - report received from IN HOME BABY SITTER. Care assumed. Pt will remain in PACU [...] FUNDOPLASTY performed by Sheridan Mosher MD at [facility] MAIN OR ??? PRO UPPER GI ENDOSCOPY, BIOPSY ?? 09/04/2012 ?? EGD WITH BIOPSY performed by Didier Jones MD at [facility] ENDOSCOPY ??? PRO UPPER GI ENDOSCOPY, BIOPSY N/A 07/22/2016 ?? UPPER GASTROINTESTINAL ENDOSCOPY,WITH BIOPSY SINGLE OR MULTIPLE performed by Sheridan Mosher MDat [facility] ENDOSCOPY ??? PRO UPPER GI ENDOSCOPY, DIAGNOSTIC ?? 11/25/2012 ?? ENDOSCOPY, UPPER GI, DIAGNOSTIC, WITH OR WITHOUT SPECIMENS performed by Sheridan Mosher MD at [facility] OR ??? PRO UPPER GI ENDOSCOPY, DIAGNOSTIC ?? 07/18/2014 ?? EGD, UPPER GI ENDOSCOPY performed by Sheridan Mosher MD at [facility] ENDOSCOPY ??? UPPER GI ENDOSCOPY, EXAM ?? 09/04/2012 ?? UPPER GI ENDOSCOPY performed by Didier Jones MD at [facility] ENDOSCOPY ?? No current facility-administered medications [...] Patient ambulated in hallway several times today. EMBEDDED PROCESSOR discontinued this morning and patient now onliquid [...] and children. Two adult children live in [place]; youngest son attends [employer] in January 2018. Behavioral Health History: Denied. Substance Use/Abuse: Denied Other Pertinent/Service Specific Information: Pt has had many surgery in her past; she is very familiar with post-operative recovery. Health/Prescription Coverage: Primary Insurance: [facility] Secondary Insurance: [facility] Prescription Coverage: Pt was not sure if she has prescription coverage but said she can handle outof pocket co-pays of generic's. [place] Pharm[place] Other: no Primary Care Provider: Laura Ross, ESTHETICIAN SPA [phone] Patient/Caregiver Goals of Treatment: Effective pain management; [...] of care planning. Nena Bright RN, BSN Life Insurance Specialist-2 Tad Pager # [phone] [email or web address] * Plan of Care - Mara Marie [...] the night, and thus only using her EMBEDDED PROCESSOR intermittently. When she got up to walk to the bathroom (succsesfully voiding with low PVR) she c/o severe pain, but was able to catch up once returned to bed. VSS. NPO maintained. C/o nausea last hs, medicated with relief stated. PLAN MOVING FORWARD: mobilize; nausea meds as needed; EMBEDDED PROCESSOR INDIVIDUALIZED FALL PREVENTION INTERVENTIONS: Patient-specific fall risk [...] Mosher MD - 11/26/2017 8:05 PM EDT [facility] [facility] Operative Note Patient Name: Mora Bolanos : [id number] MR#: [id number] Case Date: 11/26/2017 Surgeon: Surgeon(s) and Role: [...] Order Time SPECIMEN TO PATHOLOGY OR 26 [id number] FAILED FUNDOPLICATION Fundus Excision No 11/26/2017 6:23 [...] distal bowel was chosen to create the [id number] jejunojejunostomy. The duodenal, afferent limb was approximated [...] two layers with a 30 Citizen Of [place] Bougie (blunt-tipped) in place. The Bougie was [...] PM EST TH Visit (TeleHealth) [place] [address] Roxana Webb MD [facility] [place] [address] documented as of this encounter Procedures Procedure [...] 48.75) 11/26/2017 4:32 PM EDT FAILED FUNDOPLICATION ON SITE WASTEWATER SYSTEMS TECHNICIAN SCAN 11/26/2017 12:00 AM EDT documented in this encounter Results * POCT Glucose (11/29/2017 3:08 PM EDT) Glucose, POC 92 65 - 199 mg/dL [facility] Comment: Supplemental ranges: <140 mg/dL before meals <180 mg/dL all other times of the day Blood specimen (specimen) 11/29/2017 3:08 PM EDT 11/29/2017 3:08 PM EDT Sheridan Mosher MD POINT OF CARE TEST O PATRICIA [facility] [place] [address] * POCT Glucose (11/29/2017 11:54 AM EDT) Glucose, POC 103 65 - 199 mg/dL [facility] Comment: Supplemental ranges: <140 mg/dL before meals <180 mg/dL all other times of the day Blood specimen (specimen) 11/29/2017 11:54 AM EDT 11/29/2017 11:54 AM EDT Sheridan Mosher MD POINT OF CARE TEST Britany GOMEZ Performing Organization Address [facility] Co de Phone Number [facility] [place] [address] * POCT Glucose (11/29/2017 7:43 AM EDT) Glucose, POC 88 65 - 199 mg/dL [facility] Comment: Supplemental ranges: <140 mg/dL before meals <180 mg/dL all other times of the day Blood specimen (specimen) 11/29/2017 7:43 AM EDT 11/29/2017 7:43 AM EDT Sheridan Mosher MD POINT OF CARE TEST Britany GOMEZ Performing Organization Address City/[facility]/ZIP Co de Phone Number [facility] [place] [address] * Differential, Automated (11/29/2017 3:50 AM EDT) Pathologist [facility] Neutrophil % 61.6 % [facility] Neutrophil Absolute 5.94 1.70 - 6.10 x10(3)/[facility] LABORATORY Lymph % 28.8 % [facility] Lymphocytes Abs 2.8 0.9 - 3.2 x10(3)/[facility] Monocyte % 6.2 % [facility] Monocyte Abs 0.6 0.3 - 0.9 x10(3)/[facility]ORAT[facility] Eos % 2.7 % [facility] Eosinophils Abs 0.3 0.0 - 0.4 x10(3)/[facility] Basophil % 0.4 % [facility] Baso Absolute 0.0 0.0 - 0.1 x10(3)/[facility] Immature Gran % 0.30 % [facility] Comment: Immature granulocytes(IG's)percentage and absolute count will include metamyelocytes, myelocytes, and promyelocytes. Blood smears from CBCs yielding IG's will be scanned manually for concordance. If this scan disagrees with the automated IG or if promyelocytes are noted, a manual differential will be performed. Immature Gran Absolute 0.03 0.00 - 0.04 x10(3)/[facility] Blood specimen (specimen) 11/29/2017 3:50 AM EDT 11/29/2017 4:03 AM EDT Narrative Resulting Agency Comment Spec In Lab Ange Oreilly MD HEMATOLOGY OR DERABLES [facility] [place] [address] * (ABNORMAL) Hemogram (11/29/2017 3:50 AM EDT) [facility] White Blood Cell 9.6(H) 4.0 - 9.5 x10(3)/[facility]ORATORY Red Blood Cell 4.24 4.00 - 5.21 x10(6)/mc L [facility] Hemoglobin 11.7 11.7 - 15.5 gm/dL [facility] Hematocrit 36.8 35.7 - 45.8 % [facility] Mean Cell Volume 86.8 82.6 - 94.4 fL [facility] Mean Cell Hemoglobin 27.6 27.1 - 32.0 pg [facility] Mean Cell Hemoglobin Concentration 31.8 31.7 - 35.0 gm/dL [facility] Platelet 216 145 - 357 x10(3)/mc L [facility] RDW Standard Deviation 40.6 37.0 - 46.0 fL [facility] RDW coefficient of variation 12.8 11.5 - 14.1 % [facility] Mean Platelet Volume 10.0 7.6 - 12.9 fL [facility] NRBC% auto 0.0 % [facility] NRBC Absolute 0.000 0.000 - 0.000 x10(3)/mc L [facility] Blood specimen (specimen) 11/29/2017 3:50 AM EDT 11/29/2017 4:03 AM EDT Narrative Resulting Agency Comment Spec In Lab Ange Oreilly MD HEMATOLOGY OR DERABLES [facility] [place] [address] * (ABNORMAL) Basic Metabolic Panel (non-fasting) (11/29/2017 3:50 AM EDT) Glucose 100 65 - 199 mg/dL [facility] Comment:Diabetes: >=200 mg/d L plus symptoms Blood Urea Nitrogen 4(L) 8 - 18 mg/dL [facility] Creatinine 0.66(L) 0.70 - 1.20 mg/dL [facility] Sodium 144 135 - 145 mmol/L [facility] Potassium 4.0 3.5 - 5.0 mmol/L [facility] Comment: Please note: ??Patients with WBC >100,000 may have falsely elevated Potassium levels. ??For accurate Potassium quantification in these patients send serum separator tube (gold top) for subsequent determinations. ??Contact the Clinical Chemistry Laboratory if there are any questions. Chloride 106 98 - 107 mmol/L [facility] Carbon Dioxide 28 22 - 31 mmol/L [facility] Anion Gap 10 5 - 15 mmol/L [facility] Calcium 9.0 8.5 - 10.5 mg/dL [facility] Comment:result rechecked-jt Est Glomerular Filtration Rate >60 >=60 [facility] Comment: The reported eGFR should be multiplied by 1.2 for patients. The MDRD is not an appropriate measure of renal function for patients with body mass extremes or in patients with acute kidney failure. http://[employer].The Library/DHnkdep http://Fontacto/DHMCnkf Blood specimen (specimen) 11/29/2017 3:50 AM EDT 11/29/2017 4:03 AM EDT Narrative Resulting Agency Comment Spec In Lab Ange Oreilly MD CHEMISTRY ORD ERABLES Performing Organization Address City/[facility]/ZIP Co de Phone Number [facility] [place] [address] * POCT Glucose (11/29/2017 3:49 AM EDT) Glucose, POC 91 65 - 199 mg/dL [facility] Comment: Supplemental ranges: <140 mg/dL before meals <180 mg/dL all other times of the day Blood specimen (specimen) 11/29/2017 3:49 AM EDT 11/29/2017 3:49 AM EDT Sheridan Mosher MD POINT OF CARE TEST O RDERABLES [facility] [place] [address] * POCT Glucose (11/28/2017 11:30 PM EDT) Glucose, POC 82 65 - 199 mg/dL [facility] Comment: Supplemental ranges: <140 mg/dL before meals <180 mg/dL all other times of the day Blood specimen (specimen) 11/28/2017 11:30 PM EDT 11/28/2017 11:30 PM EDT Sheridan Mosher MD POINT OF CARE TEST O PATRICIA Performing Organization Address City/[facility]/ZIP Co de Phone Number [facility] [place] [address] * POCT Glucose (11/28/2017 7:32 PM EDT) Glucose, POC 117 65 - 199 mg/dL [facility] Comment: Supplemental ranges: <140 mg/dL before meals <180 mg/dL all other times of the day Blood specimen (specimen) 11/28/2017 7:32 PM EDT 11/28/2017 7:32 PM EDT Sheridan Mosher MD POINT OF CARE TEST O PATRICIA Performing Organization Address [facility]/ZIP Co de Phone Number [facility] [place] [address] * POCT Glucose (11/28/2017 3:56 PM EDT) Glucose, POC 141 65 - 199 mg/dL [facility] Comment: Supplemental ranges: <140 mg/dL before meals <180 mg/dL all other times of the day Blood specimen (specimen) 11/28/2017 3:56 PM EDT 11/28/2017 3:56 PM EDT Sheridan Moshre MD POINT OF CARE TEST O PATRICIA Performing Organization Address City/[facility]/ZIP Co de Phone Number [facility] [place] [address] * XR Chest PA & Lateral (Generic) [...] Glucose, POC 120 65 - 199 mg/dL [facility] Comment: Supplemental ranges: <140 mg/dL before meals <180 mg/dL all other times of the day Blood specimen (specimen) 11/28/2017 11:53 AM EDT 11/28/2017 11:53 AM EDT Sheridan Mosher MD POINT OF CARE TEST O RDERABLES Performing Organization Address [facility] Co de Phone Number [facility] [place] [address] * POCT Glucose (11/28/2017 7:47 AM EDT) Glucose, POC 109 65 - 199 mg/dL [facility] Comment: Supplemental ranges: <140 mg/dL before meals <180 mg/dL all other times of the day Blood specimen (specimen) 11/28/2017 7:47 AM EDT 11/28/2017 7:47 AM EDT Sheridan Mosher MD POINT OF CARE TEST O RDERABLES Performing Organization Address [facility] Co de Phone Number [facility] [place] [address] * POCT Glucose (11/28/2017 4:21 AM EDT) Glucose, POC 104 65 - 199 mg/dL [facility] Comment: Supplemental ranges: <140 mg/dL before meals <180 mg/dL all other times of the day Blood specimen (specimen) 11/28/2017 4:21 AM EDT 11/28/2017 4:21 AM EDT Sherdian Mosher MD POINT OF CARE TEST O RDERABLES Performing Organization Address City/[facility] Co de Phone Number [facility] [place] [address] * (ABNORMAL) Differential, Automated (11/28/2017 2:42 AM EDT) Neutrophil % 67.1 % [facility] Neutrophil Absolute 6.24(H) 1.70 - 6.10 x10(3)/mc L [facility] Lymph % 24.0 % [facility] Lymphocytes Abs 2.2 0.9 - 3.2 x10(3)/mc L [facility] Monocyte % 7.5 % [facility] Monocyte Abs 0.7 0.3 - 0.9 x10(3)/[facility] LABORATORY Eos % 0.9 % [facility] Eosinophils Abs 0.1 0.0 - 0.4 x10(3)/[facility]OR[facility]ORY Basophil % 0.2 % [facility] Baso Absolute 0.0 0.0 - 0.1 x10(3)/[facility] LABORATORY Immature Gran % 0.30 % [facility] Comment: Immature granulocytes(IG's)percentage and absolute count will include metamyelocytes, myelocytes, and promyelocytes. Blood smears from CBCs yielding IG's will be scanned manually for concordance. If this scan disagrees with the automated IG or if promyelocytes are noted, a manual differential will be performed. Immature Gran Absolute 0.03 0.00 - 0.04 x10(3)/[facility]ORATORY Blood specimen (specimen) 11/28/2017 2:42 AM EDT 11/28/2017 3:08 AM EDT Narrative Resulting Agency Comment Spec In Lab Ange Oreilly MD HEMATOLOGY OR DERABLES [facility] [place] [address] * (ABNORMAL) Hemogram (11/28/2017 2:42 AM EDT) White Blood Cell 9.3 4.0 - 9.5 x10(3)/[facility] Red Blood Cell 3.78(L) 4.00 - 5.21 x10(6)/[facility] Hemoglobin 10.5(L) 11.7 - 15.5 gm/dL [facility] Hematocrit 32.7(L) 35.7 - 45.8 % [facility] Mean Cell Volume 86.5 82.6 - 94.4 fL [facility] Mean Cell Hemoglobin 27.8 27.1 - 32.0 pg [facility] Mean Cell Hemoglobin Concentration 32.1 31.7 - 35.0 gm/dL [facility] Platelet 212 145 - 357 x10(3)/mc L [facility] RDW Standard Deviation 40.9 37.0 - 46.0 [facility] RDW coefficient of variation 13.0 11.5 - 14.1 % [facility] Mean Platelet Volume 10.5 7.6 - 12.9 [facility] NRBC% auto 0.0 % [facility] NRBC Absolute 0.000 0.000 - 0.000 x10(3)/mc L [facility] Blood specimen (specimen) 11/28/2017 2:42 AM EDT 11/28/2017 3:08 AM EDT Narrative Resulting Agency Comment Spec In Lab Ange Oreilly MD HEMATOLOGY OR DERABLES [facility] [place] [address] * (ABNORMAL) Basic Metabolic Panel (non-fasting) (11/28/2017 2:42 AM EDT) Glucose 94 65 - 199 mg/dL [facility] Comment:Diabetes: >=200 mg/d L plus symptoms Blood Urea Nitrogen 5(L) 8 - 18 mg/dL [facility] Creatinine 0.73 0.70 - 1.20 mg/dL [facility] Sodium 142 135 - 145 mmol/L [facility] Potassium 3.7 3.5 - 5.0 mmol/L [facility] Comment: result rechecked-jt Please note: ??Patients with WBC >100,000 may have falsely elevated Potassium levels. ??For accurate Potassium quantification in these patients send serum separator tube (gold top) for subsequent determinations. ??Contact the Clinical Chemistry Laboratory if there are any questions. Chloride 104 98 - 107 mmol/L [facility] Carbon Dioxide 27 22 - 31 mmol/L [facility] Anion Gap 11 5 - 15 mmol/L [facility] Calcium 7.9(L) 8.5 - 10.5 mg/dL [facility] Est Glomerular Filtration Rate >60 >=60 [facility] Comment: The reported eGFR should be multiplied by 1.2 for patients. The MDRD is not an appropriate measure of renal function for patients with body mass extremes or in patients with acute kidney failure. http://Fontacto/DHnkdep http://Fontacto/DHMCnkf Blood specimen (specimen) 11/28/2017 2:42 AM EDT 11/28/2017 3:08 AM EDT Narrative Resulting Agency Comment Spec In Lab Ange Oreilly MD CHEMISTRY ORD ERABLES Performing Organization Address City/[facility]/ZIP Co de Phone Number [facility] [place] [address] * POCT Glucose (11/27/2017 11:46 PM EDT) Glucose, POC 95 65 - 199 mg/dL [facility] Comment: Supplemental ranges: <140 mg/dL before meals <180 mg/dL all other times of the day Blood specimen (specimen) 11/27/2017 11:46 PM EDT 11/27/2017 11:46 PM EDT Sheridan Mosher MD POINT OF CARE TEST O RDERABLES [facility] [place] [address] * POCT Glucose (11/27/2017 7:46 PM EDT) Glucose, POC 110 65 - 199 mg/dL [facility] Comment: Supplemental ranges: <140 mg/dL before meals <180 mg/dL all other times of the day Blood specimen (specimen) 11/27/2017 7:46 PM EDT 11/27/2017 7:46 PM EDT Sheridan Mosher MD POINT OF CARE TEST O PATRICIA Performing Organization Address [facility] Co de Phone Number [facility] [place] [address] * POCT Glucose (11/27/2017 3:51 PM EDT) Glucose, POC 105 65 - 199 mg/dL [facility] Comment: Supplemental ranges: <140 mg/dL before meals <180 mg/dL all other times of the day Blood specimen (specimen) 11/27/2017 3:51 PM EDT 11/27/2017 3:51 PM EDT Sheridan Mosher MD POINT OF CARE TEST Britany GOMEZ Performing Organization Address [facility] Co de Phone Number [facility] [place] [address] * POCT Glucose (11/27/2017 11:12 AM EDT) Glucose, POC 95 65 - 199 mg/dL [facility] Comment: Supplemental ranges: <140 mg/dL before meals <180 mg/dL all other times of the day Blood specimen (specimen) 11/27/2017 11:12 AM EDT 11/27/2017 11:12 AM EDT Sheridan Mosher MD POINT OF CARE TEST O PATRICIA Performing Organization Address [facility] Co de Phone Number [facility] [place] [address] * POCT Glucose (11/27/2017 8:08 AM EDT) Glucose, POC 105 65 - 199 mg/dL [facility] Comment: Supplemental ranges: <140 mg/dL before meals <180 mg/dL all other times of the day Blood specimen (specimen) 11/27/2017 8:08 AM EDT 11/27/2017 8:08 AM EDT Sheridan Mosher MD POINT OF CARE TEST O RDERABLES Performing Organization Address City/[facility]/ZIP Co de Phone Number [facility] [place] [address] * POCT Glucose (11/27/2017 4:47 AM EDT) Glucose, POC 113 65 - 199 mg/dL [facility] Comment: Supplemental ranges: <140 mg/dL before meals <180 mg/dL all other times of the day Blood specimen (specimen) 11/27/2017 4:47 AM EDT 11/27/2017 4:47 AM EDT Sheridan Mosher MD POINT OF CARE TEST O CAROLINAERACALVIN Performing Organization Address [facility] Co de Phone Number [facility] [place] [address] * (ABNORMAL) Differential, Automated (11/27/2017 4:40 AM EDT) [facility] Neutrophil % 84.9 % [facility] Neutrophil Absolute 12.83(H) 1.70 - 6.10 x10(3)/mc L [facility] Lymph % 10.0 % [facility] Lymphocytes Abs 1.5 0.9 - 3.2 x10(3)/mc L [facility] Monocyte % 4.7 % [facility] Monocyte Abs 0.7 0.3 - 0.9 x10(3)/mc L [facility] Eos % 0.0 % [facility] Eosinophils Abs 0.0 0.0 - 0.4 x10(3)/mc L [facility] Basophil % 0.1 % [facility] Baso Absolute 0.0 0.0 - 0.1 x10(3)/mc L [facility] Immature Gran % 0.30 % [facility] Comment: Immature granulocytes(IG's)percentage and absolute count will include metamyelocytes, myelocytes, and promyelocytes. Blood smears from CBCs yielding IG's will be scanned manually for concordance. If this scan disagrees with the automated IG or if promyelocytes are noted, a manual differential will be performed. Immature Gran Absolute 0.04 0.00 - 0.04 x10(3)/mc L [facility] Blood specimen (specimen) 11/27/2017 4:40 AM EDT 11/27/2017 4:46 AM EDT Narrative Resulting Agency Comment Spec In Lab Ange Oreilly MD HEMATOLOGY OR DERABLES Performing Organization Address City/State/[facility] Co de Phone Number [facility] [place] [address] * (ABNORMAL) Hemogram (11/27/2017 4:40 AM EDT) White Blood Cell 15.1(H) 4.0 - 9.5 x10(3)/mc L [facility] Red Blood Cell 4.46 4.00 - 5.21 x10(6)/mc L [facility] Hemoglobin 12.3 11.7 - 15.5 gm/dL [facility] Hematocrit 37.3 35.7 - 45.8 % [facility] Mean Cell Volume 83.6 82.6 - 94.4 fL [facility] Mean Cell Hemoglobin 27.6 27.1 - 32.0 pg [facility] Mean Cell Hemoglobin Concentration 33.0 31.7 - 35.0 gm/dL [facility] Platelet 281 145 - 357 x10(3)/mc L [facility] RDW Standard Deviation 38.5 37.0 - 46.0 [facility] RDW coefficient of variation 12.8 11.5 - 14.1 % [facility] Mean Platelet Volume 10.4 7.6 - 12.9 fL [facility] NRBC% auto 0.0 % [facility] NRBC Absolute 0.000 0.000 - 0.000 x10(3)/mc L [facility] Blood specimen (specimen) 11/27/2017 4:40 AM EDT 11/27/2017 4:46 AM EDT Narrative Resulting Agency Comment Spec In Lab Ange Oreilly MD HEMATOLOGY OR DERABLES Performing Organization Address [facility]/ZIP Co de Phone Number [facility] [place] [address] * Phosphorus (11/27/2017 4:40 AM EDT) Phosphorus 4.4 2.5 - 4.5 mg/dL [facility] Blood specimen (specimen) 11/27/2017 4:40 AM EDT 11/27/2017 4:46 AM EDT Narrative Resulting Agency Comment Spec In Lab Ange Oreilly MD CHEMISTRY ORD ERABLES Performing Organization Address [facility] Co de Phone Number [facility] [place] [address] * Magnesium (11/27/2017 4:40 AM EDT) Magnesium 0.81 0.69 - 1.07 mmol/L [facility] Blood specimen (specimen) 11/27/2017 4:40 AM EDT 11/27/2017 4:46 AM EDT Narrative Resulting Agency Comment Spec In Lab Ange Oreilly MD CHEMISTRY ORD ERABLES Performing Organization Address [facility] Co de Phone Number [facility] [place] [address] * (ABNORMAL) Glucose, fasting (11/27/2017 4:40 AM EDT) Glucose Fasting 114(H) 65 - 99 mg/dL [facility] Comment: ?Fasting* Glucose Interpretive [...] of Diabetes Mellitus, Position Statement from the [employer]. ??Diabetes Care, Volume 33, Supplement 1, Sep 2009 Blood specimen (specimen) 11/27/2017 4:40 AM EDT 11/27/2017 4:46 AM EDT Narrative Resulting Agency Comment Spec In Lab Ange Oreilly MD CHEMISTRY ORD [employer] Performing Organization Address [facility] de Phone Number [facility] [place] [address] * Creatinine (11/27/2017 4:40 AM EDT) Creatinine 0.79 0.70 - 1.20 mg/dL [facility] Est Glomerular Filtration Rate >60 >=60 [facility] Comment: The reported eGFR should be multiplied by 1.2 for patients. The MDRD is not an appropriate measure of renal function for patients with body mass extremes or in patients with acute kidney failure. http://JumpSoft.com/DHnkdep http://JumpSoft.com/DHMCnkf Blood specimen (specimen) 11/27/2017 4:40 AM EDT 11/27/2017 4:46 AM EDT Narrative Resulting Agency Comment Spec In Lab Ange Oreilly MD CHEMISTRY ORD ERABLES Performing Organization Address [facility] de Phone Number [facility] [place] [address] * (ABNORMAL) BUN (11/27/2017 4:40 AM EDT) Blood Urea Nitrogen 7(L) 8 - 18 mg/dL [facility] Blood specimen (specimen) 11/27/2017 4:40 AM EDT 11/27/2017 4:46 AM EDT Narrative Resulting Agency Comment Spec In Lab Ange Oreilly MD CHEMISTRY ORD ERABLES Performing Organization Address [facility]/ZIP Co de Phone Number [facility] [place] [address] * Electrolytes panel (11/27/2017 4:40 AM EDT) [facility] Sodium 139 135 - 145 mmol/L [facility] Potassium Not Perf 3.5 - 5.0 mmol/L [facility] Comment: Unable to quantitate [...] questions. Chloride 100 98 - 107 mmol/L [facility] Carbon Dioxide 27 22 - 31 mmol/L [facility] Anion Gap 12 5 - 15 mmol/L [facility] Blood specimen (specimen) 11/27/2017 4:40 AM EDT 11/27/2017 4:46 AM EDT Narrative Resulting Agency Comment Spec In Lab Ange Oreilly MD CHEMISTRY ORD ERABLES Performing Organization Address City/[facility]/ZIP Co de Phone Number [facility] [place] [address] * POCT Glucose (11/27/2017 12:18 AM EDT) Pathologist [facility] Glucose, POC 143 65 - 199 mg/dL [facility] Comment: Supplemental ranges: <140 mg/dL before meals <180 mg/dL all other times of the day Blood specimen (specimen) 11/27/2017 12:18 AM EDT 11/27/2017 12:18 AM EDT Sheridan Mosher MD POINT OF CARE TEST O PATRICIA Performing Organization Address [facility] Co de Phone Number [facility] [place] [address] * POCT Glucose (11/26/2017 8:40 PM EDT) Glucose, POC 158 65 - 199 mg/dL [facility] Comment: Supplemental ranges: <140 mg/dL before meals <180 mg/dL all other times of the day Blood specimen (specimen) 11/26/2017 8:40 PM EDT 11/26/2017 8:40 PM EDT Sheridan Mosher MD POINT OF CARE TEST O PATRICIA Performing Organization Address [facility] Co de Phone Number [facility] [place] [address] * Specimen to Pathology (11/26/2017 6:24 PM EDT) AP Specimen 11/26/2017 6:24 PM EDT 11/26/2017 6:24 PM EDT Narrative [facility] - 11/26/2017 6:24 PM EDT Specimen requisition ordered. ??Separate Pathology report to follow Sheridan Mosher MD PATHOLOGY/CYTOLOGY O PATRICIA Performing Organization Address [facility] Co de Phone Number [facility] [place] [address] * Surgical Pathology Report (11/26/2017 6:23 PM EDT) Final Diagnosis [id number] ? Location: 2WST; 0210; A The signing pathologist has (i) examined the relevant preparation(s) for the specimen(s) and (ii) rendered or confirmed the diagnosis(es). . ?Surgical Pathology DIAGNOSIS Fundus, wedge resection: Benign segment of stomach with unremarkable gastric fundic gland mucosa. Electronically signed by: ??Stefani Roberts MD Verified: ??12/01/2017 ?Pathologist Performed at: ??[facility] Dept. of Pathology, [place], [place] CLINICAL INFORMATION Specimen Submitted: A - Fundus Clinical History: Failed fundoplication Clinical Diagnosis: Same SPECIMEN PROCESSING A - ??Labeled/Fixativ e: Fundus, fresh. Quantity/Size: Single, 5.5 x 4.5 x 3.5 cm. Tissue Description: Intact, wedge resection of stomach. The serosa is pink, ragged with fibrous adhesions. The mucosa is pink with the usual rugal folds. Sections/Processi ng: ??(R1) ??sns 12/01/2017 3:54 PM EDT [facility] STOMACH STRUCTURE / Unknown 11/26/2017 6:23 PM EDT 11/26/2017 6:23 PM EDT Sheridan Mosher MD PATHOLOGY/CYTOLOGY O RDERABLES [facility] [place] [address] * SCAN DOC: ON SITE WASTEWATER SYSTEMS TECHNICIAN (11/26/2017 12:00 AM EDT) Anatomical Region Laterality [...] EDT 5,000 Units HYDROmorphone (DILAUDID) 1 mg/mL EMBEDDED PROCESSOR 50 mL Intravenous, EMBEDDED PROCESSOR ONLY, Starting on Fri11/26/17 at 2100, Until [...] NOT exceed 2 mg total dose. Per EMBEDDED PROCESSOR order., Recovery (Recovery-Hospital Unit), Routine ondansetron (ZOFRAN) [...] at 2004, 2 doses, Until Fri11/26/17 at 2211, VESICANT - Dilute with a minimum of [...] Ange Griffin RN)1800 (Given - Provider: Ange Griffin, CHELO)2349 (Given - Provider: Ankush Lowry RN) 0359 (Given - Provider: Ankush Lowry RN)0724 (Given - Provider: Ankush Lowry RN)1130 (Given - Provider: Isabel Hammond RN)1517 (Given - Provider: Isabel Hammond RN)1915 (Given - Provider: Isabel Hammond RN)2330 (Given - Provider: Ankush Lowry RN) 0336 (Given - Provider: Ankush Lowry RN)0829 (Given - Provider: Kiatlyn Buckner, CHELO)1103 (Given - Provider: Kaitlyn Buckner RN)1513 (Given - Provider: Kaitlyn Buckner RN) enoxaparin (LOVENOX) injection 40 mg 40 mg, Subcutaneous, NIGHTLY, First dose on Fri11/26/17 at 2300, Until Discontinued, Recovery (Recovery-Hospital Unit), Routine 2048 (Given - Provider: Ankush Lowry RN) 202 (Given - Provider: Ankush Lowry RN) insulin [...] Griffin RN) 0817 (Given - Provider: Isabel Hammond, CHELO) 0829 (Given - Provider: Kaitlyn Buckner [...] Lowry, CHELO) 0817 (Given - Provider: Isabel Hammond RN)202 (Given - Provider: Ankush Lowry, CHELO) 0830 [...] 11/26/17 at 2237, Until 11/29/17 at 2046, Opioid Reversal, May repeat every 60 seconds to increase respiratory rate. DO NOT exceed 2 mg total dose. Per EMBEDDED PROCESSOR order., Recovery (Recovery-Hospital Unit), Routine ondansetron (ZOFRAN) injection 4 mg 4 mg, Intravenous, EVERY 8 HOURS PRN, Starting on Germania 11/27/17 at 0859, Until 11/29/17 at 2046, Nausea 0951 (Given - Provider: Ange Griffin [...] Routine documented in this encounter Care Teams Building Trades Teacher Relationship Specialty Start Date End Date Laura Ross APRN [address] [place], [place] [id number] PCP - General Family Medicine 10/01/17 08/21/22 documented as of this encounter
--- OUTSIDE RECORDS SUMMARY | 2024-08-15 12:10 | XMS_ITS | Encounter Summary ---
Author Organization [facility] [place] [address] Care Team Providers Care Equipment Tester Name Role Phone Laura Ross LOUIE Primary Care Provider [phone] Encounter Details Date Type Department Care Team (Latest Contact Info) Description 12/11/2020 9:57 PM EDT - 12/11/2020 11:59 PM EDT Hospital [place] [address] Discharge Disposition: Home Social History Tobacco Use [...] PM EST TH Visit (TeleHealth) [place] [address] Roxana Webb MD [facility] [place] [address] documented as of this encounter Procedures Procedure Name Priority Date/Time Associated Diagnosis Comments SURGICAL PATHOLOGY REPORT Routine 12/11/2020 8:50 AM EDT documented in this encounter Results * Surgical Pathology Report (12/11/2020 8:50 AM EDT) Final Diagnosis [id number] ? Location: [facility] The signing pathologist has (i) examined the relevant preparation(s) for the specimen(s) and (ii) rendered or confirmed the diagnosis(es). . ?Surgical Pathology DIAGNOSIS Needle biopsies: ?Right breast Diagnosis: ?Benign breast tissue (see ?Discussion). Microcalcificat ions: ??N/A Electronically signed by: ??Misa Retana DO Verified: ??12/12/2020 ?Pathologist Performed at: ??[facility] Dept. of Pathology, [place], [place] DISCUSSION Histologic features of a mass or lesion are not identified in this sample. Radiologic correlation is recommended. SPECIMEN(S) SUBMITTED A - Unspecific lump in the right breast, upper outer quadrant. Referring Identifier: ??[id number] CLINICAL INFORMATION Unspecified lump in the right breast, upper outer quadrant SPECIMEN PROCESSING A - Labeled/Fixativ e: Right breast, formalin. Quantity/Size: Three, ranging from 0.7 x 0.1 cm, 1.2 x 0.2 cm Tissue Description: Yellow to focally pink red fibrofatty needle core biopsies. Sections/Proces sing: Entirely submitted in 1 cassette labeled A1. Ischemic Time: <1 minute ??shb 12/12/2020 12:39 PM EDT [facility] BREAST STRUCTURE / Unknown 12/11/2020 8:50 AM EDT 12/11/2020 8:50 AM EDT Narrative Resulting Agency Comment Spec In Lab / WKS Laura Ross APRN PATHOLOGY/CYTOLOGY O RDERABLES [facility] [place] [address] documented in this encounter Visit Diagnoses Not on filedocumented in this encounter Care Teams Equipment Tester Relationship Specialty Start Date End Date Laura Ross APRN [address] [place] [address] PCP - General Family Medicine 10/01/17 08/21/22 documented as of this encounter
--- OUTSIDE RECORDS SUMMARY | 2024-08-15 12:11 | XMS_ITS | Encounter Summary ---
Author Organization [facility] [place] [address] Care Team Providers Care Hardwood Floor Finisher Name Role Phone Arely Arzola LOUIE Primary Care Provider [phone] Reason for Referral * Diagnostic Test (Routine) - Closed Specialty Diagnoses / Procedures Referred By Martha broussard Referred To Contact Radiology Diagnoses Gastroesophageal reflux disease, esophagitis presence not specified Procedures XR Fluoro Barium Swallow Ange Cordon MD [facility] [place] [address] [facility] Xray [address] [place] [address] [place] [address] Referral ID Status Reason Start Date Expiration Date V isits Requested Visits Authorized [id number] Closed Specialty Service Requested 09/03/2017 09/03/2018 1 1 Reason for Visit * Diagnostic Test (Routine) - Closed Specialty Diagnoses / Procedures Referred By Martha broussard Referred To Contact Radiology Diagnoses Gastroesophageal reflux disease, esophagitis presence not specified Procedures XR Fluoro Barium Swallow Ange Cordon MD [facility] [place] [address] [facility] Rad Xray [address] [place] [address] [place] [address] Referral ID Status Reason Start Date Expiration Date V isits Requested Visits Authorized [id number] Closed Specialty Service Requested 09/03/2017 09/03/2018 1 1 Encounter Details Date Type Department Care Team (Latest Contact Info) Description 09/19/2017 9:37 AM EST - 09/19/2017 11:59 PM EST Hospital Encounter XRay at [address] [place] [address] Ange Cordon MD [facility] [place] [address] Gastroesophageal reflux disease, esophagitis presence not specified [...] (TeleHealth) Endocrinology at [facility] [place] [address] Roxana Webb MD [facility] [place] [address] documented as of this encounter Procedures Procedure [...] mLs documented in this encounter Care Teams Hardwood Floor Finisher Relationship Specialty Start Date End Date Arely Arzola APRN [address] [place] [address] PCP - General 11/23/12 09/30/17 documented as of this encounter
--- OUTSIDE RECORDS SUMMARY | 2024-08-15 12:11 | XMS_ITS | Encounter Summary ---
Author Organization [facility] Address [facility] [place] [address] Care Team Providers Care Button Decorating Machine Operator Name Role Phone Arely Arzola APRN Primary Care Provider [phone] Reason for Visit * Reason Comments Follow-up Encounter Details Date Type Department Care Team (Latest Contact Info) Description 08/20/2016 12:00 PM EST Office [place] [address] Sheridan Cassidy MD [facility] [place] [address] Gastroesophageal reflux disease without esophagitis Social History [...] slipped Magdaleno after she had moved to [place]. From her description, she became quite sick, with partial obstruction in the wrap, and a food bolus getting stuck, and an intense hospital course. 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
--- OUTSIDE RECORDS SUMMARY | 2024-08-15 12:11 | XMS_ITS | Encounter Summary ---
[place] [address] Care Team Providers Care Superintendent [employer] Name Role Phone Arely Arzola LOUIE Primary Care Provider [phone] Reason for Visit * Auth/Cert Specialty Diagnoses / Procedures Referred By Martha broussard Referred To Contact Diagnoses S/P Gabriella fundoplication (without gastrostomy tube) procedure S/P GABRIELLA Procedures PRO UPPER GI ENDOSCOPY, DIAGNOSTIC EGD, UPPER GI ENDOSCOPY Referral ID Status Reason Start Date Expiration Date Visits Re quested Visits Authorized [id number] 1 1 Encounter Details Date Type Department Care Team (Latest Contact Info) Description 07/22/2016 2:35 PM EST - 07/22/2016 5:21 PM [facility] Hospital En[place] [address] Sheridan Mosher MD [facility] [address] Discharge Disposition: Home Social History Tobacco Use [...] better as expected. Friday-Friday Same Day Endo [phone] Otherwise contact [phone] and ask to speak to the drafter assistant drug enforcement administration agent Follow-up care is a diaz part of [...] Didier Jones MD at [facility] ENDOSCOPY? Upper gi endoscopy, biopsy?? 09/04/2012? EGD WITH BIOPSY performed by Didier Jones MD at [facility] ENDOSCOPY? Lap, esophagus, other proc?? 11/25/2012? LAPAROSCOPIC REVISION OF GABRIELLA FUNDOPLASTY performed by Sheridan Mosher MD at [facility] MAIN OR? Upper gi endoscopy, diagnostic?? 11/25/2012? ENDOSCOPY, UPPER GI, DIAGNOSTIC, WITH OR WITHOUT SPECIMENS performed by Sheridan Mosher MD at [facility] OR? No current facility-administered medications on file [...] Social History Narrative? 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 [place] On examination, she appears well and in [...] Mosher MD - 07/22/2016 5:21 PM EST [facility] Operative Note Patient Name: Mora Bolanos : [id number] MR#: [id number] Case Date: 07/22/2016 Surgeon: Surgeon(s) and Role: [...] PM EST TH Visit (TeleHealth) [place] [address] Roxana Webb MD [facility] [address] [place] [id number] documented as of this encounter Procedures Procedure [...] Report (07/22/2016 4:56 PM EST) Final Diagnosis [id number] ?Location: 4T; EA08; A The signing pathologist has (i) examined [...] sing: (T1) ??ejr 07/24/2016 2:38 PM EST [facility] GI Biopsy 07/22/2016 4:56 PM EST 07/22/2016 4:56 PM EST Sheridan Mosher MD PATHOLOGY/CYTOLOGY O PATRICIA Performing Organization Address [facility] [place] [address] * Specimen to Pathology (surgical or derm) (07/22/2016 4:56 PM EST) AP Specimen 07/22/2016 4:56 PM EST 07/22/2016 4:56 PM EST Narrative [facility] - 07/22/2016 4:56 PM EST Specimen requisition ordered. ??Separate Pathology report to follow Sheridan Mosher MD PATHOLOGY/CYTOLOGY O PATRICIA Performing Organization Address [facility] [place] [address] * UPPER GI ENDOSCOPY (07/22/2016 4:08 PM EST) UPPER GI ENDOSCOPY [facility] ___ Procedure Date: 07/22/2016 4:08 PM ? Patient Name: Mora Bolanos ? N: [id number] ? Date of : 1975 ? Age: 41 ? Order #: [id number] ? Instrument Name: [id number] ? ___ Procedure: ? Upper GI endoscopy Indications: ? Epigastric abdominal pain, Dysphagia Providers: ? Sheridan Mosher MD, Ela Manley ? Tank, CHELO, Daksha Colvin MD: ?Arely Arzola Medicines: ? [...] the physician, the nurse and the ? biomedical technician in the pre-procedure area ? in [...] Procedure Code(s): ?? --- Professional --- ? 98616, Esophagogastroduode noscopy, ? flexible, transoral; with biopsy, ? single or multiple CPT copyright 2015 [employer]. All rights reserved. The codes documented in this report are preliminary and upon emotional support teacher review may be revised to meet current compliance requirements. Attending Participation: ? I personally performed the entire procedure. ? Sheridan Mosher MD 07/22/2016 4:51:29 PM This report has been signed electronically. Number of Addenda: 0 Note Initiated On: 07/22/2016 4:08 PM PROVATION 07/22/2016 4:08 PM EST Arely Arzola LOUIE GENERAL SURGICAL ORD ERABLES PROVATION documented [...] RN) documented in this encounter Care Teams Superintendent [employer] Relationship Specialty Start Date End Date Arely Arzola APRN [address] [place] [address] PCP - General 11/23/12 09/30/17 documented as of this encounter
--- OUTSIDE RECORDS SUMMARY | 2024-08-15 12:11 | XMS_ITS | Encounter Summary ---
[place] [address] Care Team Providers Care Party Plan Sales Host/Hostess Name Role Phone Laura Ross APRN Primary Care Provider Reason for Referral * Consultation (Routine) - Canceled Specialty Diagnoses / Procedures Referred By Martha broussard Referred To Contact Hematology and Oncology Diagnoses Breast mass Kaci Castellon APRN [facility] [place] [address] [facility] Hem Onc Office [address] [place] [phone] Referral ID Status Reason Start Date Expiration Date V isits Requested Visits Authorized [id number] Canceled Consult, Test & Treat 10/22/2017 10/22/2018 1 1 Reason for Visit * Reason Comments Breast Mass * Consultation (Routine) - Closed Specialty Diagnoses / Procedures Referred By Contjoe broussard Referred To Contact Hematology and Oncology Diagnoses eval and tx lateral lump in R breast. Pt looking for second opinion Laura Ross APRN [address] [place] [address] [facility] [address] [place] [address] Referral ID Status Reason Start Date Expiration Date V isits Requested Visits Authorized [id number] Closed Evaluate and Treat [facility] 10/09/2017 10/09/2018 1 1 Encounter Details Date Type Department Care Team (Late st Contact Info) Description 10/22/2017 9:45 AM EST Office Visit General Surgery at [facility] [place], [place] [facility] [address] Kaci Castellon APRN [facility] [place] [address] Breast mass Social History Tobacco Use Types [...] at 1200. In 2012 while living in [place] she thought she felt a mass in this area. She had breast imaging (not available for my review) which she believes was a cat 3 for an area on the right which needed watching. She moved to [place] in June of 2017 and at that time she received a letter telling her that she needed more imaging including and MRI. She had no discussions with the radiology department in [place]. When she relocated to [place] she eventually was seen by her PCP who sent her for imaging ( mammo and right US at Weeks/cat 2). She was then sent to see Dr Desyi Madrid. Dr Madrid did not feel a mass but agreed to refer her for another opinion. Ms Bolanos still feels a mass on the right at 1200 and tenderness in the UOQ of her right breast. She is wondering if she needs an MRI due to the fact the radiology dept in [place] told her she needed one. She denies [...] imaging normal, with review from imaging from [place]. Potentially high risk patient due to family [...] PM EST TH Visit (TeleHealth) [place] [address] Roxana Webb MD [facility] [place] [address] Scheduled Referrals Name Type Priority Associated Diagnoses Order Schedule Referral to Hematology and Oncology Outpatient Referral Routine Breast mass Ordered: 10/22/2017 documented as of this encounter Visit Diagnoses Diagnosis Breast mass Lump or mass in breast documented in this encounter Care Teams Party Plan Sales Host/Hostess Relationship Specialty Start Date End Date Laura Ross APRN [address] [place] [address] PCP - General Family Medicine 10/01/17 08/21/22 documented as of this encounter
--- OUTSIDE RECORDS SUMMARY | 2024-08-15 12:11 | XMS_ITS | Encounter Summary ---
Author Organization [facility] [place] [address] Care Team Providers Care Steam Bone Press Tender Name Role Phone Arely Arzola LOUIE Primary Care Provider [phone] Encounter Details Date Type Department Care Team (Latest Contact Info) Description 09/03/2017 4:10 PM EST Laboratory Appointment Lab [address] [place] [address] Weight gain; Gastroesophageal reflux disease, esophagitis presence [...] PM EST TH Visit (TeleHealth) [place] [address] Roxana Webb MD [facility] [place] [address] documented as of this encounter Procedures Procedure [...] 4:22 PM EST) Neutrophil % 61.6 % [facility] Neutrophil Absolute 6.36(H) 1.70 - 6.10 x10(3)/mc L [facility] Lymph % 29.1 % [facility] Lymphocytes Abs 3.0 0.9 - 3.2 x10(3)/mc L [facility] Monocyte % 7.5 % [facility] Monocyte Abs 0.8 0.3 - 0.9 x10(3)/mc L [facility] Eos % 1.2 % [facility] Eosinophils Abs 0.1 0.0 - 0.4 x10(3)/mc L [facility] Basophil % 0.3 % [facility] Baso Absolute 0.0 0.0 - 0.1 x10(3)/mc L [facility] Immature Gran % 0.30 % [facility] Comment: Immature granulocytes(IG's)percentage and absolute count will include metamyelocytes, myelocytes, and promyelocytes. Blood smears from CBCs yielding IG's will be scanned manually for concordance. If this scan disagrees with the automated IG or if promyelocytes are noted, a manual differential will be performed. Immature Gran Absolute 0.03 0.00 - 0.04 x10(3)/mc L [facility] Blood specimen (specimen) 09/03/2017 4:22 PM EST 09/03/2017 4:29 PM EST Narrative Resulting Agency Comment Spec In Lab Ange Oreilly MD HEMATOLOGY OR DERABLES Performing Organization Address City/State/[facility] Co de Phone Number [facility] [place] [address] * (ABNORMAL) Hemogram (09/03/2017 4:22 PM EST) White Blood Cell 10.3(H) 4.0 - 9.5 x10(3)/mc L [facility] Red Blood Cell 4.79 4.00 - 5.21 x10(6)/mc L [facility] Hemoglobin 13.6 11.7 - 15.5 gm/dL [facility] Hematocrit 39.1 35.7 - 45.8 % [facility] Mean Cell Volume 81.6(L) 82.6 - 94.[address] [facility] Mean Cell Hemoglobin 28.4 27.1 - 32.[address] [facility] Mean Cell Hemoglobin Concentration 34.8 31.7 - 35.0 gm/dL [facility] Platelet 312 145 - 357 x10(3)/mc L [facility] RDW Standard Deviation 37.1 37.0 - 46.[address] [facility] RDW coefficient of variation 12.5 11.5 - 14.1 % [facility] Mean Platelet Volume 9.7 7.6 - 12.[address] [facility] NRBC% auto 0.0 % [facility] NRBC Absolute 0.000 0.000 - 0.000 x10(3)/mc L [facility] Blood specimen (specimen) 09/03/2017 4:22 PM EST 09/03/2017 4:29 PM EST Narrative Resulting Agency Comment Spec In Lab Ange Oreilly MD HEMATOLOGY OR DERABLES Performing Organization Address [facility] Co de Phone Number [facility] [place] [address] * Calcium (09/03/2017 4:22 PM EST) Calcium 9.3 8.5 - 10.5 mg/dL [facility] Blood specimen (specimen) 09/03/2017 4:22 PM EST 09/03/2017 4:29 PM EST Narrative Resulting Agency Comment Spec In Lab Ange Oreilly MD CHEMISTRY ORD ERABLES Performing Organization Address [facility] Co de Phone Number [facility] [place] [address] * PTH (09/03/2017 4:22 PM EST) Parathyroid Hormone 37 15 - 65 pg/mL [facility] Blood specimen (specimen) 09/03/2017 4:22 PM EST 09/03/2017 4:29 PM EST Narrative Resulting Agency Comment Spec In Lab Ange Oreilly MD CHEMISTRY ORD ERABLES Performing Organization Address [facility] Co de Phone Number [facility] [place] [address] * Comprehensive metabolic panel (non-fasting) (09/03/2017 4:22 PM EST) Glucose 101 65 - 199 mg/dL [facility] Comment:Diabetes: >=200 mg/d L plus symptoms Blood Urea Nitrogen 9 8 - 18 mg/dL [facility] Creatinine 0.80 0.70 - 1.20 mg/dL [facility] Sodium 144 135 - 145 mmol/L [facility] Potassium 4.0 3.5 - 5.0 mmol/L [facility] Comment: Please note: ??Patients with WBC >100,000 may have falsely elevated Potassium levels. ??For accurate Potassium quantification in these patients send serum separator tube (gold top) for subsequent determinations. ??Contact the Clinical Chemistry Laboratory if there are any questions. Chloride 105 98 - 107 mmol/L [facility] Carbon Dioxide 24 22 - 31 mmol/L [facility] Anion Gap 15 5 - 15 mmol/L [facility] Calcium 9.3 8.5 - 10.5 mg/dL [facility] Protein, Total 7.4 6.1 - 8.0 gm/dL [facility] Albumin 4.3 3.2 - 5.2 gm/dL [facility] Aspartate Aminotransferase 23 0 - 30 unit/L [facility] Alanine Aminotransferase 26 0 - 30 unit/L [facility] Alkaline Phosphatase 83 40 - 104 unit/L [facility] Bilirubin, Total 0.2 0.2 - 1.3 mg/dL [facility] Est Glomerular Filtration Rate >60 >=60 [facility] Comment: The reported eGFR should be multiplied by 1.2 for patients. The MDRD is not an appropriate measure of renal function for patients with body mass extremes or in patients with acute kidney failure. http://Medopad.AlphaLab/DHnkdep http://Medopad.AlphaLab/DHMCnkf Blood specimen (specimen) 09/03/2017 4:22 PM EST 09/03/2017 4:29 PM EST Narrative Resulting Agency Comment Spec In Lab Ange Oreilly MD CHEMISTRY ORD ERABLES [facility] [place] [address] * T4, free (09/03/2017 4:22 PM EST) Free T4 1.09 0.93 - 1.70 ng/dL [facility] Blood specimen (specimen) 09/03/2017 4:22 PM EST 09/03/2017 4:29 PM EST Narrative Resulting Agency Comment Spec In Lab Dinesh Garner MD CHEMISTRY ORDERABLES Performing Organization Address City/[facility]/ZIP Co de Phone Number [facility] [place] [address] * TSH (09/03/2017 4:22 PM EST) Thyroid Stimulating Hormone 1.38 0.27 - 4.20 mlU/ML [facility] Blood specimen (specimen) 09/03/2017 4:22 PM EST 09/03/2017 4:29 PM EST Narrative Resulting Agency Comment Spec In Lab Dinesh Garner MD CHEMISTRY ORDERABLES Performing Organization Address City/[facility] Co de Phone Number [facility] [place] [address] documented in this encounter Visit Diagnoses Diagnosis Weight gain Abnormal weight gain Gastroesophageal reflux disease, esophagitis presence not specified documented in this encounter Care Teams Steam Bone Press Tender Relationship Specialty Start Date End Date Aerly Arzola APRN [address] [place] [address] PCP - General 11/23/12 09/30/17 documented as of this encounter
--- OUTSIDE RECORDS SUMMARY | 2024-08-15 12:11 | XMS_ITS | Encounter Summary ---
Author Organization [facility] Address [facility] [place] [address] Care Team Providers Care Library Technician Name Role Phone Arely Arzola LOUIE Primary Care Provider [phone] Reason for Visit * Reason Comments Pre-op Exam Encounter Details Date Type Department Care Team (Late st Contact Info) Description 11/23/2012 12:40 PM EDT Follow-Up [place] [address] Sheridan Cassidy MD [facility] [place] [address] Epigastric pain (Primary Dx); Gastroesophageal reflux Discharge [...] PM EST TH Visit (TeleHealth) [place] [address] Roxana Webb MD [facility] [place] [address] documented as of this encounter Procedures Procedure [...] Gran Absolute 0.00 0.00 - 0.05 x10(3)/mcL CERNER MILLENNIUM Blood specimen (specimen) 11/23/2012 2:44 PM EDT 11/23/2012 2:53 PM EDT Sheridan Cassidy MD HEMATOLOGY ORDERABLE S CERNER MARIUMENNIUM * Lipase (11/23/2012 2:44 PM EDT) Lipase 35 0 - 60 unit/L [facility] MILLENNIUM Blood specimen (specimen) 11/23/2012 2:44 PM EDT 11/23/2012 2:53 PM EDT Narrative Resulting Agency Comment Spec In Lab Sheridan Cassidy MD CHEMISTRY ORDERABLES Performing Organization Address [facility] de Phone Number CERNER MILLENNIUM * Amylase (11/23/2012 2:44 PM EDT) Amylase 64 28 - 100 unit/L [facility]ERN[facility] MILLENNIUM Blood specimen (specimen) 11/23/2012 2:44 PM EDT 11/23/2012 2:53 PM EDT Narrative Resulting Agency Comment Spec In Lab Sheridan Cassidy MD CHEMISTRY ORDERABLES Performing Organization Address [facility] de Phone Number CERNER MILLENNIUM * Hepatic Function Panel (11/23/2012 2:44 PM EDT) Protein, Total 7.0 6.4 - 8.3 gm/dL CERNER MILLENNIUM Albumin 4.3 3.2 - 5.2 gm/dL [facility]ERNER MILLENNIUM Aspartate Aminotransferase 18 0 - 30 unit/L [facility]ERNER MILLENNIUM Alanine Aminotransferase 15 0 - 30 unit/L CERNER MILLENNIUM Alkaline Phosphatase 58 40 - 104 unit/L [facility]ERN[facility] MILLENNIUM Bilirubin, Total 0.4 0.2 - 1.3 mg/dL CERNER MILLENNIUM Bilirubin, Direct 0.1 0.0 - 0.3 mg/dL CERNER MILLENNIUM Blood specimen (specimen) 11/23/2012 2:44 PM EDT 11/23/2012 2:53 PM EDT Narrative Resulting Agency Comment Spec In Lab Sheridan Cassidy MD CHEMISTRY ORDERABLES Performing Organization Address [facility] Co de Phone Number CERNER MILLENNIUM * Electrolytes [...] In Lab Sheridan Cassidy MD CHEMISTRY ORDERABLES CERNER MILLENNIUM * Creatinine (11/23/2012 2:44 PM EDT) Creatinine 0.71 0.70 - 1.20 mg/dL [facility] MILLENNIUM Comment: Please note that the pediatric reference intervals supplied above were not validated at [facility]. Results from pediatric patients should be interpreted [...] NA, Sindy AK, Ziyad TS, Griselda AD, Daneil CORRY. Relative performance of the MDRD and CKD-EPI equations for estimating glomerular filtration rate among patients with varied clinical presentations. Clin J Am Soc Nephrol;6:1963-72. Blood specimen (specimen) 11/23/2012 2:44 PM EDT 11/23/2012 2:53 PM EDT Narrative Resulting Agency Comment Spec In Lab Sheridan Cassidy MD CHEMISTRY ORDERABLES Performing Organization Address [facility] Co de Phone Number CERBANNER MILLENNIUM * BUN (11/23/2012 2:44 PM EDT) Blood Urea Nitrogen 8 8 - 18 mg/dL CERNER MILLENNIUM Blood specimen (specimen) 11/23/2012 2:44 PM EDT 11/23/2012 2:53 PM EDT Narrative Resulting Agency Comment Spec In Lab Sheridan Cassidy MD CHEMISTRY ORDERABLES Performing Organization Address [facility] Co de Phone Number CERBANNER MILLENNIUM * CBC (with Diff) (11/23/2012 2:44 PM [...] Lab Sheridan Cassidy MD HEMATOLOGY ORDERABLE S EUGENE BROOKS documented in this encounter Visit Diagnoses Diagnosis Epigastric pain- Primary Abdominal pain, epigastric Gastroesophageal reflux Esophageal reflux documented in this encounter Care Teams Library Technician Relationship Specialty Start Date End Date Arely Arzola APRN [address] [place] [address] PCP - General 11/23/12 09/30/17 documented as of this encounter
--- OUTSIDE RECORDS SUMMARY | 2024-08-15 12:11 | XMS_ITS | Encounter Summary ---
Author Organization [facility] [place] [address] Care Team Providers Care Metal Slitter Name Role Phone Arely Arzola LOUIE Primary Care Provider [phone] Encounter Details Date Type Department Care Team (Late st Contact Info) Description 11/25/2012 5:55 PM EDT Anesthesia [place] [address] Mau Fonseca MD [facility] [address] [place] [address] Jayant Rodriguez CRNA [facility] [place] [address] Anesthesia Record Procedure Summary Procedure Name Responsible [...] retained food in stomach, otherwise normal. -EGD, [facility], Dr. Julius Zepeda, 03/15/10: small hiatal hernia noted. Distal esophagitis noted, ? Queen???s. ??? Dyspepsia No past medical history on file. Past Surgical History Procedure Date ??? Upper gi endoscopy, exam 09/04/2012 UPPER GI ENDOSCOPY performed by Didier Jones MD at [facility] ENDOSCOPY ??? Upper gi endoscopy, biopsy 09/04/2012 EGD WITH BIOPSY performed by Didier Jones MD at [facility] ENDOSCOPY History Substance Use Topics ??? Smoking [...] consented to blood products. Plan discussed with CARDIAC NURSE. Misc. Assessment: documented in this encounter Miscellaneous [...] PM EST TH Visit (TeleHealth) [place] [address] Roxana Webb MD [facility] [address] documented as of this encounter Visit Diagnoses Not on filedocumented in this encounter Care Teams Metal Slitter Relationship Specialty Start Date End Date Arely Arzola, LOUIE [address] [place] [address] PCP - General 11/23/12 09/30/17 documented as of this encounter
--- OUTSIDE RECORDS SUMMARY | 2024-08-15 12:11 | XMS_ITS | Encounter Summary ---
Author Organization [facility] [place] [address] Care Team Providers Care Dampener Operator Name Role Phone Arely Arzola APRN Primary Care Provider [phone] Encounter Details Date Type Department Care Team (Latest Contact Info) Description 07/18/2014 10:00 AM EST Procedure visit [place] [address] CLINIC, Patti Ahn RN Esophageal reflux (Primary [...] Female, 39 yrs, 1975 PCP: ARELY ARZOLA DIRECTOR PHARMACOLOGY: NONE STUDY DATE: 07/18/14 INDICATION Reflux symptoms despite prior Magdaleno fundoplication; need to accurately place a wireless pH capsule. METHODS Stationary esophageal manometry was performed with the Wizer esophageal motility system utilizing the HowGood software with a 4-channel solid-state motility probe. [...] of the esophagus. Rigoberto Reid, PhD, MD clerical associate, [facility] [employer] Section of Gastroenterology and Hepatology [facility] [place] [address] V: [phone] F: [phone] BANNER/sunita CC/EC: PCP - fax copy 07/22/14 Enclosure: Tracing Sheridan Cassidy MD - staff msg copy 07/22/14 Enclosure: Tracing Danni Dominguez - staff msg copy 07/22/14 * Patti Plunkett RN - 07/18/2014 10:45 AM EST Esophageal manometry performed without Difficulty and was well tolerated. Bill teaching done. Study is being done off Acid suppression and this was confirmed with her. Returned to dental receptionist area to await EGD and Bill later today. No voiced concerns at this time. documented in this encounter Plan of Treatment Upcoming Encounters Date Type Department Care Team (Late st Contact Info) Description 08/23/2024 3:30 PM EST TH Visit (TeleHealth) [place] [address] Roxana Webb MD [facility] [place] [address] documented as of this encounter Visit Diagnoses Diagnosis Esophageal reflux- Primary documented in this encounter Care Teams Dampener Operator Relationship Specialty Start Date End Date Arely Arzola APRN [facility] [address] [address] PCP - General 11/23/12 09/30/17 documented as of this encounter
--- OUTSIDE RECORDS SUMMARY | 2024-08-15 12:11 | XMS_ITS | Encounter Summary ---
[place] [address] Care Team Providers Care Moving Picture Producer Name Role Phone Arely Arzola LOUIE Primary Care Provider [phone] Encounter Details Date Type Department Care Team (Late st Contact Info) Description 07/18/2014 2:00 PM EST Office [place] [address] Patti Plunkett, RN Esophageal reflux [...] PM EST TH Visit (TeleHealth) [place] [address] Roxana Webb MD [facility] [address] documented as of this encounter Visit Diagnoses Diagnosis Esophageal reflux- Primary documented in this encounter Care Teams Moving Picture Producer Relationship Specialty Start Date End Date Arely Arzola APRN [address] [place] [address] PCP - General 11/23/12 09/30/17 documented as of this encounter
--- OUTSIDE RECORDS SUMMARY | 2024-08-15 12:11 | XMS_ITS | Encounter Summary ---
Author Organization [facility] Address [facility] [place] [address] Care Team Providers Care Telemarketer Supervisor Name Role Phone Arely Arzola LOUIE Primary Care Provider [phone] Reason for Visit * Reason Comments Follow-up Encounter Details Date Type Department Care Team (Latest Contact Info) Description 12/02/2012 12:45 PM EDT Office [place] [address] Sheridan Cassidy MD [facility] [place] [address] Gastroesophageal reflux (Primary Dx) Discharge Disposition: Home [...] PM EST TH Visit (TeleHealth) [place] [address] Roxana Webb MD [facility] [place] [address] documented as of this encounter Visit Diagnoses Diagnosis Gastroesophageal reflux- Primary Esophageal reflux documented in this encounter Care Teams Telemarketer Supervisor Relationship Specialty Start Date End Date Arely Arzola APRN [address] [place] [address] PCP - General 11/23/12 09/30/17 documented as of this encounter
--- OUTSIDE RECORDS SUMMARY | 2024-08-15 12:11 | XMS_ITS | Encounter Summary ---
Author Organization [facility] [place] [address] Care Team Providers Care Cuprous Chloride Operator Name Role Phone DariuszArely carranza James PALMA Primary Care Provider [phone] Encounter Details Date Type Department Care Team (Latest Contact Info) Description 09/08/2017 2:41 PM EST - 09/08/2017 11:59 PM EST Hospital [place] [address] Reactive hypoglycemia Discharge Disposition: Home Social History [...] PM EST TH Visit (TeleHealth) [place] [address] Roxana Webb MD [facility] [place] [address] documented as of this encounter Procedures Procedure Name Priority Date/Time Associated Diagnosis Comments CORTISOL, SALIVA Routine 09/08/2017 11:1 6 PM EST Reactive hypoglycemia documented in this encounter Results * Cortisol, saliva (09/08/2017 11:16 PM EST) Bryan Saliva Midnight (JANUARY) <50 <100 ng/dL [facility] Comment: ADDITIONAL INFORMATION This test was developed and its performance characteristics determined by [facility] in a manner consistent with CLIA requirements. This test has not been cleared or approved by the U.S. Food and Drug Administration. Test Performed by: [facility] [place] [place] [address] Specimen of unknown material (specimen) 09/08/2017 11:16 PM EST 09/11/2017 3:05 PM EST Dinesh Garner MD LAB SEND OUT ORDERAB LES [facility] [place] [address] documented in this encounter Visit Diagnoses Diagnosis Reactive hypoglycemia Hypoglycemia, unspecified documented in this encounter Care Teams Cuprous Chloride Operator Relationship Specialty Start Date End Date Arely Arzola APRN [facility] [address] [address] PCP - General 11/23/12 09/30/17 documented as of this encounter
--- OUTSIDE RECORDS SUMMARY | 2024-08-15 12:11 | XMS_ITS | Encounter Summary ---
Author Organization [facility] [place] [id number] Care Team Providers Care Geometry Tutor Name Role Phone Arely Arzola APRN Primary Care Provider [phone] Encounter Details Date Type Department Care Team (Latest Contact Info) Description 08/06/2016 8:00 PM EST Tech [place] [address] Rigoberto Reid MD [facility] GASTROENTEROLOG[place] [address] Gastroesophageal reflux disease, esophagitis presence not specified [...] EST HIGH-RESOLUTION ESOPHAGEAL MANOMETRY Mora Bolanos [address] [place] [id number] : 1975 STUDY DATE: 08-06-2016 PROVIDER: Rigoberto Reid, PhD, [place] ([id number]) INDICATION GERD; history of prior Magdaleno fundoplication [...] measured. Water swallows were provided after a 9-kx-6-minute accommodation period to assess LES function andfunction [...] of contractile vigor. Rigoberto Reid, PhD, MD cook fruit, [employer] Chief, Section of Gastroenterology and Hepatology [place] [address] V: [phone] F: [phone] CC/EC: PCP documented in this encounter Plan of Treatment Upcoming Encounters Date Type Department Care Team (Late st Contact Info) Description 08/23/2024 3:30 PM EST TH Visit (TeleHealth) Endocrinology at [facility] [place] [address] Roxana Webb MD [facility] [place] [address] documented as of this encounter Visit Diagnoses Diagnosis Gastroesophageal reflux disease, esophagitis presence not specified documented in this encounter Care Teams Geometry Tutor Relationship Specialty Start Date End Date Arely Arzola, SAP BUSINESS INTELLIGENCE CONSULTANT [facility] [address] [place] [address] PCP - General 11/23/12 09/30/17 documented as of this encounter
--- OUTSIDE RECORDS SUMMARY | 2024-08-15 12:11 | XMS_ITS | Encounter Summary ---
Author Organization [facility] Address [facility] [place] [address] Care Team Providers Care Lead Systems Architect Name Role Phone Arely Arzola James PALMA Primary Care Provider [phone] Encounter Details Date Type Department Care Team (Latest Contact Info) Description 07/26/2014 9:26 AM EST - 07/26/2014 11:59 PM [facility] Hospital Encounter XRay at [address] [place] [address] Esophageal reflux Social History Tobacco Use Types [...] PM EST TH Visit (TeleHealth) Endocrinology at [place] [place] [address] Roxana Webb MD [facility] [place] [address] documented as of this encounter Procedures Procedure [...] mg documented in this encounter Care Teams Lead Systems Architect Relationship Specialty Start Date End Date Arely Arzola, LOUIE [address] [address] PCP - General 11/23/12 09/30/17 documented as of this encounter
--- OUTSIDE RECORDS SUMMARY | 2024-08-15 12:11 | XMS_ITS | Encounter Summary ---
Author Organization [facility] Address [facility] [place] [address] Care Team Providers Care Apron Cleaner Name Role Phone Laura Ross APRN Primary Care Provider [phone] Reason for Visit * Auth/Cert Specialty Diagnoses [...] Expiration Date Visits Re quested Visits Authorized [id number] 1 1 Encounter Details Date Type Department Care Team (Late st Contact Info) Description 11/26/2017 4:31 PM EDT Anesthesia Event [place] [address] Gloria Keys MD [facility] [place] [address] Rigoberto Knowles MD [facility] [place] [address] Anesthesia Record Procedure Summary Procedure Name Responsible [...] Time: 202011/26/17 164 by Ana Maria Garces STEAMING CABINET TENDER 11/26/172020 by Jarvis Marks CRNA (RETIRED) Peripheral IV Line - Single Lumen 11/26/17; 1658; cephalic vein (lateral side of arm), right; 18 gauge; kiran mckeon; 11/29/17; 1416 11/26/17 1658 by Ana Maria Garces STEAMING CABINET TENDER 11/29/17 1416 by Kaitlyn Buckner RN Incision [...] Keys MD - 11/26/2017 10:23 PM EDT [facility] Department of Anesthesiology Post-procedure Note Patient: Mora Bolanos Procedure Summary Date Anesthesia Start Anesthesia Stop Room / Location 11/26/171630 [facility] OR [facility] MAIN OR Procedure Diagnosis Surgeon Responsible Provider LAPAROSCOPIC REVISION OF GABRIELLA FUNDOPLASTY (WRVU *) (N/A Abdomen); LAPAROSCOPIC GASTRECTOMY, PARTIAL, W EVIN-EN-Y RECONSTRUCTION (WRVU *) (N/A Abdomen); ENDOSCOPY, UPPER GI, DIAGNOSTIC, WITH OR WITHOUT SPECIMENS (N/A ) (FAILED FUNDOPLICATION) Sheridan Cassidy MD Chinn, Christopher D, MD All Anesthesia Providers: Anesthesiologist: Gloria Keys MD; Ck Merlos MD; Rigoberto Knowles MD STEAMING CABINET TENDER: Jarvis Marks CRNA Student Nurse Data Processing Supervisor: Ana Maria Mckeon RN Most Recent Vitals: 11/26/172199 BP: 104/53 Pulse: 59 Resp: 13 Temp: 36.8 ??C (98.2 ??F) SpO2: 99% Pain 3 (11/26/172199) Patient Location: PACU/[facility] Level of Consciousness: Awake and Alert Pain [...] retained food in stomach, otherwise normal. -EGD, [facility], Dr. Julius Zepeda, 03/15/10: small [...] FUNDOPLASTY performed by Sheridan Cassidy MD at [facility] MAIN OR ??? PRO UPPER GI ENDOSCOPY, BIOPSY 09/04/2012 EGD WITH BIOPSY performed by Didier Jones MD at [facility] ENDOSCOPY ??? PRO UPPER GI ENDOSCOPY, BIOPSY N/A 07/22/2016 UPPER GASTROINTESTINAL ENDOSCOPY,WITH BIOPSY SINGLE OR MULTIPLE performed by Sheridan Cassidy MD [facility] ENDOSCOPY ??? PRO UPPER GI ENDOSCOPY, BIOPSY N/A 10/20/2017 EGD WITH BIOPSY (WRVU 2.49) performed by Sheridan Cassidy MD at [facility] ENDOSCOPY ??? PRO UPPER GI ENDOSCOPY, DIAGNOSTIC 11/25/2012 ENDOSCOPY, UPPER GI, DIAGNOSTIC, WITH OR WITHOUT SPECIMENS [facility]?? PRO UPPER GI ENDOSCOPY, DIAGNOSTIC 07/18/2014 EGD, UPPER GI ENDOSCOPY performed by Sheridan Cassidy MD at [facility] ENDOSCOPY ??? UPPER GI ENDOSCOPY, EXAM 09/04/2012 UPPER GI ENDOSCOPY performed by Didier Jones MD at [facility] ENDOSCOPY Social History Substance Use Topics [...] with patient and spouse. Plan discussed with STEAMING CABINET TENDER. PAT Staff Note documented in this encounter Plan of Treatment Upcoming Encounters Date Type Department Care Team (Late st Contact Info) Description 08/23/2024 3:30 PM EST TH Visit (TeleHealth) [place] [address] Roxana Webb MD [facility] [place] [address] documented as of this encounter Visit Diagnoses [...] on Fri11/26/17 at 1637, Until Fri11/26/17 at 2033, Anesthesia Intra-op, Routine Given 11/26/2017 4:37 PM [...] mg documented in this encounter Care Teams Apron Cleaner Relationship Specialty Start Date End Date Laura Ross APRN [address] [place] [address] PCP - General Family Medicine 10/01/17 08/21/22 documented as of this encounter
--- OUTSIDE RECORDS SUMMARY | 2024-08-15 12:11 | XMS_ITS | Encounter Summary ---
Author Organization [facility] [place] [address] Care Team Providers Care Privacy Director Name Role Phone Arely Arzola LOUIE Primary Care Provider [phone] Encounter Details Date Type Department Care Team (Latest Contact Info) Description 11/25/2012 10:02 PM EDT - 11/27/2012 2:56 PM EDT Hospital Encounter [address] [place] [address] Sheridan Mosher MD [facility] [place] [address] Discharge Disposition: Home Social History Tobacco Use [...] HOLIDAYS: ASK FOR THE GENERAL SURGERY RESIDENT ROLLER SKATER IF ANY OF THE ABOVE OCCUR. Activity level: Increase your activity slowly. You may tire easily, so frequent rest periods may be necessary. Do not lift more than 10 pounds for 4 weeks. Walk three times a day. Use common sense. Don't exhaust yourself. Diet: You should follow a post Anjel diet, as instructed by the maintenance mechanic millwright in the hospital for a period of [...] Mosher at the General Surgery Outpatient Clinic- [facility]. You will receive a letter in the mail confirming the appointment date and time. Your follow-up is very important to us. Please call [phone] if you do not hear from us [...] EDT General Surgery Resident Progress Note Mora Bolanos,[id number],1975 ID: A 37 yoF with h/o GERD, endometriosis, chronic constipation, now s/p re-do laparoscopic Anjel fundoplication POD#2 Interval: No acute events over night Ambulating Pain better controlled Tolerating adequate oral intake ??? DISCONTD: lactated ringers Stopped (11/26/12 0800) ??? DISCONTD: morphine PASTRY BAKER Stopped (11/26/12 0800) ??? DISCONTD: PASTRY BAKER diaz ??? DISCONTD: PASTRY BAKER diaz ??? scopolamine 1 patch Transdermal Q72H [...] 1:57 PM EDT Care Management/ CRC Pager# [phone]/ Assessment O: Patient talking on phone now. Notes reviewed. Patient lives with her Jay. Patient has [employer] PPO insurance. No Advance Directives on file here at [facility]. Patient is POD #1 laparoscopic Anjel revision. [...] EDT General Surgery Resident Progress Note Mora Bolanos,[id number],1975 ID: A 37 yoF with h/o GERD, endometriosis, chronic constipation, now s/p re-do laparoscopic Anjel fundoplication POD#1 Interval: Taken to surgery last PM, no intraoperative events reported Pain issues this AM Has not ambulated No nausea, tolerating small amount of liquids ??? lactated ringers 100 mL/hr (11/26/12 0521) ??? morphine PASTRY BAKER ??? PASTRY BAKER diaz ??? scopolamine 1 patch Transdermal Q72H [...] vomiting. Oriented to roomand call reddy system. PASTRY BAKER morphine infusing, set in PACU/Same day surgery. [...] 8:58 PM EDT 2044 instructed to use PASTRY BAKER Morphine-can successfully perform * Cheryl Matos RN - 11/25/2012 8:57 PM EDT 2024 s/p anjel revision w/ QH-vrozo-blxlnvlgr dressings (5 bandaids) intact documented in this encounter H&P Notes * Sheridan Mosher MD - 11/25/2012 5:06 PM EDT Patient Name: Mora Bolanos Patient Age: 37 y.o. Birthdate: 1975 Admit date: 11/25/2012 Attending Physician: Sheridan Mosher MD Mrs. Bolanos is a 37F post Lap Anjel Fundoplication in 2010. Apparently had some issues with epigastric pain last year in [place] and had part of her wrap taken down. No improvement in discomfort. Now has recurrent GERD. EGD shows abnormal wrap with some esophagitis Manometry normal Minimal herniation on swallow On ROS, she denies any recent illnesses. No fevers or chills. No CHAUDHRY or vision changes. 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 No SOB. Epigastric pain as above. [...] 2 with colon CA Father with lupus, CAD/[place] Brother x 2 with CAD/[place] Maternal uncle with pancreatic CA Maternal GF [...] EDT * Plan of Care - Ryan eLyva RN - 11/27/2012 2:37 AM EDT Problem: [...] Control/Comfort Level - Pain, Acute (Adult, Obstetric) PASTRY BAKER was discontinued this morning. Pt c/o sever [...] 2:00 PM Sheridan Mosher MD [facility] Patient Instructions: Call your doctor if you develop: Fever greater than 101.3 degrees Farenheit (38.5 degrees Celcius), chills, nausea or vomiting. Alsocall if you develop severe pain not relieved by your prescribed oral pain medicine. CALL THE GENERAL SURGERY CLINIC DURING WORKING HOURS AT , OR CALL AFTERCLINIC HOURS, WEEKENDS AND HOLIDAYS: ASK FOR THE GENERAL SURGERY RESIDENT ROLLER SKATER IF ANY OF THE ABOVE OCCUR. Activity level: Increase your activity slowly. You may tire easily, so frequent rest periods may be necessary. Do not lift more than 10 pounds for 4 weeks. Walk three times a day. Use common sense. Don't exhaust yourself. Diet: You should follow a post Anjel diet, as instructed by the maintenance mechanic millwright in the hospital for a period of [...] Mosher at the General Surgery Outpatient Clinic- [facility] 4L Friday. You will receive a letter in the mail confirming the appointment date and time. Your follow-up is very important to us. Please call [phone] if you do not hear from us [...] HOLIDAYS: ASK FOR THE GENERAL SURGERY RESIDENT ROLLER SKATER IF ANY OF THE ABOVE OCCUR. Activity level: Increase your activity slowly. You may tire easily, so frequent rest periods may be necessary. Do not lift more than 10 pounds for 4 weeks. Walk three times a day. Use common sense. Don't exhaust yourself. Diet: You should follow a post Anjel diet, as instructed by the maintenance mechanic millwright in the hospital for a period of [...] Mosher at the General Surgery Outpatient Clinic- [facility] 4L. You will receive a letter in the mail confirming the appointment date and time. Your follow-up is very important to us. Please call [phone] if you do not hear from us [...] s/p endoscopic fundoplication for reflux. On morphine PASTRY BAKER with good relief obtained. No c/onausea or vomiting, iv fluids infusing, tolerating ice/ water without nausea vomiting. Resp even and unlabored. Patient alert and oriented x4, easily awaken with voice or light touch. * Op Note - Sheridan Mosher MD - 11/25/2012 8:18 PM EDT [facility] Operative Note Patient Name: Mora Bolanos : [id number] MR#: [id number] Case Date: 11/25/2012 Surgeon: Surgeon(s) and Role: [...] with good result but a surgeon in [place] took it down and she now has [...] stomach. No leaks were noted. A 60 Malaysian Bougie was passed by Anesthesia and left [...] then removed under direct vision and the Rene drain and liver retractor were removed. The [...] PM EST TH Visit (TeleHealth) [place] [address] Roxana Webb MD [facility] [place] [address] documented as of this encounter Procedures Procedure [...] Absolute 0.01 0.00 - 0.05 x10(3)/mc L EUGENE BUSTAMANTEIUM Blood specimen (specimen) 11/26/2012 6:39 AM EDT 11/26/2012 6:54 AM EDT Manoj Leyva MD HEMATOLOGY ORD ERABLES EUGENE BUSTAMANTEIUM * Magnesium (11/26/2012 6:39 AM EDT) Magnesium 0.76 0.69 - 1.07 mmol/L EUGENE CAUSEYENNIUM Blood specimen (specimen) 11/26/2012 6:39 AM EDT 11/26/2012 6:54 AM EDT Narrative Resulting Agency Comment Spec In Lab Manoj Leyva MD CHEMISTRY [place] CERNER MILLENNIUM * (ABNORMAL) Basic Metabolic Panel (non-fasting) (11/26/2012 6:39 AM EDT) Glucose 141 60 - 199 mg/dL CERNER MILLENNIUM Comment:Diabetes: >=200 mg/d L plus symptoms Blood Urea Nitrogen 10 8 - 18 mg/dL CERNER MILLENNIUM Creatinine 0.65(L) 0.70 - 1.20 mg/dL [facility] MILLENNIUM Comment: Please note that the pediatric reference intervals supplied above were not validated at [facility]. Results from pediatric patients should be interpreted [...] Spec In Lab Manoj Leyva MD CHEMISTRY [place] [facility] * (ABNORMAL) CBC (with Diff) (11/26/2012 6:39 [...] Cell Hemoglobin 28.3 26.6 - 32.2 pg EUGENE BUSTAMANTEIUM Mean Cell Hemoglobin Concentration 33.2 32.0 - 36.5 gm/dL [facility] Platelet 204 145 - 370 x10(3)/mc L [facility] RDW Standard Deviation 38.2 35.0 - 46.0 fL [facility] RDW coefficient of variation 12.4 10.9 - 14.4 % [facility] Mean Platelet Volume 10.5 9.0 - 12.0 fL EUGENE BROOKS Blood specimen (specimen) 11/26/2012 6:39 AM EDT [...] CONTINUOUS, Starting on Fri11/25/12 at 2100, Until Fri11/26/12 at 0800 New Bag 11/26/2012 5:21 AM EDT 100 mL/hr 100 mL/hr Rate/Dose Verify 11/26/2012 5:00 AM EDT 100 mL/hr 100 mL/ hr New Bag 11/25/2012 8:45 PM EDT 100 mL/hr 100 mL/hr morphine 1 mg/mL PASTRY BAKER 30 mL Intravenous, PASTRY BAKER ONLY, Starting on Fri11/25/12 at 2100, Until [...] Routine 1745 (Given - Provider: Maria Alejandra Funes, RN)1800 (Not Given - Provider: Cheryl Matos RN - Reason: See comment - Comment: given in Or) sodium chloride 0.9 % flush 5 mL (CANCELED) 5 mL, Intravenous, EVERY 12 HOURS, First dose on Fri11/25/12 at 2230, Until Discontinued 2230 (Given - Provider: Ryan Leyva RN) 1030 (Given - Provider: Kasandra Molina RN)2230 (Given - Provider: Ryan Leyva RN) 1030 (Given - Provider: Syeda Haque, CHELO) Continuous Medication Order 11/25/2012 11/26/2012 11/27/2012 lactated ringers infusion (CANCELED) 100 mL/hr, Intravenous, CONTINUOUS, Starting on Fri11/25/12 at 2100, Until Germania 11/26/12 at 0800 2045 (New Bag - Provider: Cheryl Matos RN) 0500 (Rate/Dose Verify - Provider: Ryan Leyva RN)0521 (New Bag - Provider: Ryan Leyva RN)0800 (Stopped - Provider: Kasandra Molina, RN) morphine 1 mg/mL PASTRY BAKER 30 mL (CANCELED) Intravenous, PASTRY BAKER ONLY, Starting on Fri11/25/12 at 2100, Until Germania 11/26/12 at 0800 2045 (New Syringe/Cartridge - Provider: Cheryl Matos, RN) 0800 (Stopped - Provider: Kasandra Molina, RN) PRN Medication Order 11/25/2012 11/26/2012 11/27/2012 BUpivacaine (PF) (MARCAINE) 0.25 % (2.5 mg/mL) injection (CANCELED) ONCE PRN, Starting on Fri11/25/12 at 1903, Until Fri11/25/12 at 2139, Intra-Operative (Intra-Procedure), Routine 1903 (Given - Provider: Sheridan Mosher MD - [...] Ryan Leyva RN)1224 (Given - Provider: Syeda Haque RN) OXYcodone-acetaminophen [...] RN) 0000 (Given - Provider: Ryan Leyva RN)0338 (Given - Provider: Ryan Leyva RN)3921 (Given - Provider: Ryan Leyva RN)0274 (Given - Provider: Syeda Haque, CHELO)8702 (Given - Provider: Syeda Haque RN) Linked [...] Patch documented in this encounter Care Teams Privacy Director Relationship Specialty Start Date End Date Arely Arzola APRN [address] [address] PCP - General 11/23/12 09/30/17 documented as of this encounter
--- OUTSIDE RECORDS SUMMARY | 2024-08-15 12:11 | XMS_ITS | Encounter Summary ---
Author Organization [facility] [address] Care Team Providers Care Child Support Case Officer Name Role Phone DariuszArely carranza James PALMA Primary Care Provider [phone] Encounter Details Date Type Department Care Team (Latest Contact Info) Description 09/09/2017 2:40 PM EST - 09/09/2017 11:59 PM EST Hospital [place] [address] Reactive hypoglycemia Discharge Disposition: Home Social History [...] PM EST TH Visit (TeleHealth) [place] [address] Roxana Webb MD [facility] [place] [address] documented as of this encounter Procedures Procedure Name Priority Date/Time Associated Diagnosis Comments CORTISOL, SALIVA Routine 09/09/2017 11:1 7 PM EST Reactive hypoglycemia documented in this encounter Results * Cortisol, saliva (09/09/2017 11:17 PM EST) Bryan Saliva Midnight (JANUARY) <50 <100 ng/dL [facility] Comment: ADDITIONAL INFORMATION This test was developed and its performance characteristics determined by [facility] in a manner consistent with CLIA requirements. This test has not been cleared or approved by the U.S. Food and Drug Administration. Test Performed by: [facility] [place] [address] Specimen of unknown material (specimen) 09/09/2017 11:17 PM EST 09/11/2017 3:05 PM EST Dinesh Garner MD LAB SEND OUT ORDERAB LES [facility] [place] [place] [address] documented in this encounter Visit Diagnoses Diagnosis Reactive hypoglycemia Hypoglycemia, unspecified documented in this encounter Care Teams Child Support Case Officer Relationship Specialty Start Date End Date Arely Arzola APRN [facility] [address] [address] PCP - General 11/23/12 09/30/17 documented as of this encounter
--- OUTSIDE RECORDS SUMMARY | 2024-08-15 12:11 | XMS_ITS | Encounter Summary ---
Author Organization [facility] Address [facility] [place] [address] Care Team Providers Care First Helper Name Role Phone Arely Arzola LOUIE Primary Care Provider [phone] Encounter Details Date Type Department Care Team (Late st Contact Info) Description 07/18/2014 2:30 PM EST - 07/18/2014 3:00 PM EST [place] [address] Sheridan Cassidy MD [facility] [place] [address] EGD, UPPER GI ENDOSCOPY (WRVU 2.09) Social [...] Other Instructions Be sure to carry your real estate transaction coordinator within 3 feet at all times . [...] or concerns, please call us Friday-Friday Clinic [phone] 8a-5p Same Day Endo [phone] 7a-8p Otherwise contact [phone] and ask to speak to the inside upholsterer motor room controller. Patti Plunkett RN [phone] if any problems with real estate transaction coordinator Discharge instructions reviewed with patient who expresses [...] ENDOSCOPY performed by Didier Jones MD at [facility] ENDOSCOPY ??? Upper gi endoscopy, biopsy 09/04/2012 EGD WITH BIOPSY performed by Didier Jones MD at [facility] ENDOSCOPY ??? Lap, esophagus, other proc 11/25/2012 LAPAROSCOPIC REVISION OF GABRIELLA FUNDOPLASTY performed by Sheridan Cassidy MD at [facility] MAIN OR ??? Upper gi endoscopy, diagnostic 11/25/2012 ENDOSCOPY, UPPER GI, DIAGNOSTIC, WITH OR WITHOUT SPECIMENS [facility] Meds: None Allergies Allergen Reactions [...] History Narrative ??? No narrative on file ink printer in [place] Patient Vitals for the past 24 hrs: [...] PM EST TH Visit (TeleHealth) [place] [address] Roxana Webb MD [facility] [address] documented as of this encounter Procedures Procedure Name Priority Date/Time Associated Diagnosis Comments EGD, UPPER GI ENDOSCOPY (WRVU 2.09) 07/18/2014 2:24 PM EST S/P GABRIELLA UPPER GI ENDOSCOPY Routine 07/18/2014 2: 19 PM EST documented in this encounter Results * UPPER GI ENDOSCOPY (07/18/2014 2:19 PM EST) UPPER GI ENDOSCOPY [facility] Endoscopy ___ Patient Name: Mora Bolanos ? Procedure Date: 07/18/2014 2:19 PM ? Date of : 1975 ? Age: 39 ? Order #: [id number] ? ___ Procedure: ? Upper GI endoscopy Indications: ? Esophageal reflux symptoms that recur ? despite appropriate therapy Providers: ? Sheridan Cassidy MD, Patti Nevarez, ? RN, Cj Cordova, Harpsichord Maker Referring MD: ?Arely RamirezTracy Dariusz Medicines: ? Fentanyl 250 micrograms IV, Midazolam [...] gross lesions in esophagus. ? - The [employer] pH capsule was deployed. Procedure Code(s): ?? --- Professional --- ? 41346, Upper gastrointestinal ? endoscopy including esophagus, ? stomach, and either the duodenum ? and/or jejunum as appropriate; ? diagnostic, with or without ? collection of specimen(s) by brushing ? or washing (separate procedure) CPT (R) 2012 [employer]. All Rights Reserved. The codes documented in this report are preliminary and upon medical record coder review may be revised to meet current compliance requirements. Sheridan Cassidy MD 07/18/2014 3:02 PM This report has been signed electronically. Number of Addenda: 0 Note Initiated On: 07/18/2014 2:19 PM PROVATION 07/18/2014 2:19 PM EST Arely Arzola APRN GENERAL SURGICAL [...] infusion 100 mL/hr, Intravenous, CONTINUOUS, Starting on 07/18/14 at 1345, Until Fri07/18/14 at 1855, Endoscopy [...] uncomfortable) documented in this encounter Care Teams First Helper Relationship Specialty Start Date End Date Arely Arzola APRN [facility] [address] [address] PCP - General 11/23/12 09/30/17 documented as of this encounter
--- OUTSIDE RECORDS SUMMARY | 2024-08-15 12:11 | XMS_ITS | Encounter Summary ---
[facility] [place] [address] Care Team Providers Care Alterations Manager Name Role Phone Laura Ross LOUIE Primary Care Provider [phone] Encounter Details Date Type Department Care Team (Latest Contact Info) Description 10/20/2017 12:07 PM EST - 10/20/2017 3:08 PM EST Hospital Encounter [place] [address] Sheridan Cassidy MD [facility] [place] [address] Discharge Disposition: Home Social History Tobacco Use [...] - 10/20/2017 2:33 PM EST Please call [phone] before 8pm Mon-Fri with problems, questions or concerns. If you call after 8pm or on weekends, call the Hospital at [phone] and ask to speak to the Employee Relations Advisor accreditation specialist and the cone machine operator will contact that person for [...] better as expected. Friday-Friday Same Day Endo [phone] 7a-8p Otherwise contact [phone] and ask to speak to the assistant professor of theater accreditation specialist Follow-up care is a diaz part of [...] at [facility] MAIN OR ??? PRO UPPER GI ENDOSCOPY, BIOPSY 09/04/2012 EGD WITH BIOPSY performed by Didier Jones MD at [facility] ENDOSCOPY ??? PRO UPPER GI ENDOSCOPY, BIOPSY N/A 07/22/2016 UPPER GASTROINTESTINAL ENDOSCOPY,WITH BIOPSY SINGLE OR MULTIPLE performed by Sheridan Cassidy MD [facility] ENDOSCOPY ??? PRO UPPER GI ENDOSCOPY, DIAGNOSTIC 11/25/2012 ENDOSCOPY, UPPER GI, DIAGNOSTIC, WITH OR WITHOUT SPECIMENS [facility]?? PRO UPPER GI ENDOSCOPY, DIAGNOSTIC 07/18/2014 EGD, UPPER GI ENDOSCOPY performed by Sheridan Cassidy MD at [facility] ENDOSCOPY ??? UPPER GI ENDOSCOPY, EXAM 09/04/2012 UPPER GI ENDOSCOPY performed by Didier Jones MD at [facility] ENDOSCOPY No current facility-administered medications [...] PM EST TH Visit (TeleHealth) [place] [address] Roxana Webb MD [facility] [place] [address] documented as of this encounter Procedures Procedure [...] Report (10/20/2017 2:18 PM EST) Final Diagnosis [id number] ? Location: ; 06; The signing pathologist has (i) examined the relevant preparation(s) for the specimen(s) and (ii) rendered or confirmed the diagnosis(es). . 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 No goblet cell metaplasia is seen. Electronically signed by: ??Alejandra MCGOVERN, Stefani Boudreaux Verified: ??10/23/2017 ?Pathologist Performed at: ??-[facility] Dept. of Pathology, [place], [place] CLINICAL INFORMATION Specimen Submitted: A - Esaphagus bx at Z-line Clinical History: History of Queen 's, followup biopsy Clinical Diagnosis: Same SPECIMEN PROCESSING A - Labeled/Fixativ e: Esophagus BX at Z line 35 cm, formalin. Quantity/Size: Multiple, ranging from 0.1-0.5 cm. Tissue Description: ??Soft, pink tissues . Sections/Proces sing: (T2) ??sns 10/23/2017 11:36 AM EST [facility] GI Biopsy 10/20/2017 2:18 PM EST 10/20/2017 2:18 PM EST Sheridan Cassidy MD PATHOLOGY/CYTOLOGY O PATRICIA Performing Organization Address [facility] [place] [address] * Specimen to Pathology (10/20/2017 2:18 PM EST) AP Specimen 10/20/2017 2:18 PM EST 10/20/2017 2:18 PM EST Narrative [facility] - 10/20/2017 2:18 PM EST Specimen requisition ordered. ??Separate Pathology report to follow Sheridan Cassidy MD PATHOLOGY/CYTOLOGY Britany GOMEZ Performing Organization Address [facility] [place] [address] * UPPER GI ENDOSCOPY (10/20/2017 1:39 PM EST) UPPER GI ENDOSCOPY [facility] Endoscopy ___ Procedure Date: 10/20/2017 1:39 PM ? Patient Name: Mora Bolanos ? Date of : 1975 ? Age: 42 ? Order #: [id number] ? Instrument Name: [id number] ? ___ Procedure: ? Upper GI endoscopy Indications: ? 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 Sheridan Cassidy MD, Eamon Porras, ? RN, Ange Leach ? Malina Oreilly Referring : ?Laura Zhen Ross Medicines: ? Fentanyl 250 micrograms IV, [...] the physician, the nurse and the ? aviation electronics technician in the pre-procedure area ? in [...] Procedure Code(s): ?? --- Professional --- ? 27261, Esophagogastroduode noscopy, ? flexible, transoral; with biopsy, ? single or multiple CPT copyright 2016 [employer]. All rights reserved. The codes documented in this report are preliminary and upon refractive surgeon review may be revised to meet current [...] report has been signed electronically. ____ Ange Oerilly, Number of Addenda: 0 Note Initiated On: 10/20/2017 1:39 PM PROVATION 10/20/2017 1:39 PM EST Laura Ross PASSENGER CAR UPHOLSTERER APPRENTICE GENERAL SURGICAL ORD ERABLES PROVATION documented in this encounter Visit Diagnoses Not on filedocumented in this encounter Administered Medications Inactive Administered Medications - up to 3 most recent administrations Medication Order MAR Action Action Date Dose Rate Site lactated Ringers infusion 100 mL/hr, Intravenous, CONTINUOUS, Starting on 10/20/17 at 1245, Until Fri10/20/17 at 1458, Endoscopy [...] RN) documented in this encounter Care Teams Alterations Manager Relationship Specialty Start Date End Date Laura Ross APRN [address] [place] [address] PCP - General Family Medicine 10/01/17 08/21/22 documented as of this encounter
--- OUTSIDE RECORDS SUMMARY | 2024-08-15 12:11 | XMS_ITS | Encounter Summary ---
Author Organization [facility] [place] [address] Care Team Providers Care Fitting Room Operator Name Role Phone Laura Ross LOUIE Primary Care Provider [phone] Encounter Details Date Type Department Care Team (Latest Contact Info) Description 10/01/2017 9:04 PM EST - 10/01/2017 11:59 PM EST Hospital [place] [address] Discharge Disposition: Home Social History Tobacco Use [...] PM EST TH Visit (TeleHealth) [place] [address] Roxana Webb MD [facility] [place] [address] documented as of this encounter Procedures Procedure Name Priority Date/Time Associated Diagnosis Comments HPV Routine 10/01/2017 12:00 PM EST ADULT EDUCATION MANAGER CYTOLOGY INTERPRETATION Routine 10/01/2017 12:00 PM EST ADULT EDUCATION MANAGER CYTOLOGY FINAL REPORT Routine 10/01/2017 12:00 PM EST documented in this encounter Results * ADULT EDUCATION MANAGER Cytology Interpretation (10/01/2017 12:00 PM EST) Oxygen Therapy Technician Cytology Interpretation [facility] Comment:Oxygen Therapy Technician Cytology Final R eport Endocervical Component Vaginal Only [facility] AP Specimen 10/01/2017 12:0 0 PM EST 10/14/2017 11:27 AM EST Narrative Resulting Agency Comment Spec In Lab / WKS Laura Ross APRN PATHOLOGY/CYTOLOGY O RDERABLES [facility] [place] [address] * Oxygen Therapy Technician Cytology Final Report (10/01/2017 12:00 PM EST) Oxygen Therapy Technician Cytology Final Report [id number] ? Location: [facility] The signing pathologist has (i) examined the relevant preparation(s) for the specimen(s) and (ii) rendered or confirmed the diagnosis(es). . ? Oxygen Therapy Technician Final DIAGNOSIS Normal Negative for Intraepithelial Lesion or Malignancy (NILM). For consensus guidelines for the management of cervical cancer screening test results, please see: ?? http://www.asccp.o rg . Electronically signed by: ??Cari CARRIZALES(ASCP)Amalia Verified: ??10/14/2017 ?Summer Law Associate Performed at: ??-[facility] Dept. of Pathology, [place], [place] HPV RESULTS HPV16 (Result) ?Negative HPV18 [...] Clinical Genomics and Advanced Technology (CGAT) at [facility]. ? - Tomasz Whitehead, PhD, [facility], Director-[facility] STATEMENT OF ADEQUACY Specimen submitted is satisfactory. Vaginal Only. CLINICAL INFORMATION HPV Option: ? Concurrent HPV Preparation: ?Liquid Based Pap Specimen Source: ?Vaginal Only/LBP LMP: ?Hyst Hormones?: ?No Hysterectomy?: ?Yes ?: ?No ?: ?No I.U.D.?: ?No Pelvic Radiation: ? No Prior ADULT EDUCATION MANAGER Therapy?: ? No Hist Abnl Pap/Biopsy?: ??Yes Hist of HPV Vaccine?: ?? No Hist of Smoking?: ? No Hist of SANDRA exposure?: ??No Clinical Data, Significant Therapy and Clinical Impression ?? : ?? _ Referring Identifier: ?(not provided) . CLINICAL INFORMATION This Pap Test has been evaluated with the assistance of the Intransa Pap Test Imaging System. Note: The Pap test is a screening test for cervical cancer with an inherent false-negative rate dependent upon several variables. For further information please contact the [facility] Laboratory. Reference: Rosemary YE. [facility] Former of Pap Smear Results. In: Dane BS, Jeferson [facility], ed. ??The Pap Smear. [place]: Rolando, 2002: 71-77. [facility] 10/01/2017 12:0 0 PM EST Narrative Resulting Agency Comment Spec In Lab / WKS Laura Ross APRN PATHOLOGY/CYTOLOGY O RDERABLES [facility] [place] [address] * HPV (10/01/2017 12:00 PM EST) HPV16 NEGATIVE NE[address] [facility] HPV [address] [facility] HPV Other HR NEGATIVE NEGATIVE [facility] HPV Interpretation See Comment [facility] Comment: NEGATIVE for high-risk HPV [...] WKS Laura Ross APRN PATHOLOGY/[place] [address] documented in this encounter Visit Diagnoses Not on filedocumented in this encounter Care Teams Fitting Room Operator Relationship Specialty Start Date End Date Laura Ross APRN [address] [place] [id number] PCP - General Family Medicine 10/01/17 08/21/22 documented as of this encounter
--- OUTSIDE RECORDS SUMMARY | 2024-08-15 12:11 | XMS_ITS | Encounter Summary ---
Author Organization [facility] [place] [address] Care Team Providers Care Director Sales Training Name Role Phone Laura Ross LOUIE Primary Care Provider [phone] Encounter Details Date Type Department Care Team (Late st Contact Info) Description 10/20/2017 1:00 PM EST - 10/20/2017 1:30 PM EST [place] [address] Sheridan Cassidy MD [facility] [place] [address] EGD WITH BIOPSY (WRVU 2.39) Social History [...] - 10/20/2017 2:33 PM EST Please call [phone] before 8pm Mon-Fri with problems, questions or concerns. If you call after 8pm or on weekends, call the Hospital at [phone] and ask to speak to the Medical Device Sales Representative lamination operator and the diffusion operator will contact that person for you. [...] better as expected. Friday-Friday Same Day Endo [phone] 7a-8p Otherwise contact [phone] and ask to speak to the clinical program director lamination operator Follow-up care is a diaz part [...] FUNDOPLASTY performed by Sheridan Cassidy MD at [facility] MAIN OR ??? PRO UPPER GI ENDOSCOPY, BIOPSY 09/04/2012 EGD WITH BIOPSY performed by Didier Jones MD at [facility] ENDOSCOPY ??? PRO UPPER GI ENDOSCOPY, BIOPSY N/A 07/22/2016 UPPER GASTROINTESTINAL ENDOSCOPY,WITH BIOPSY SINGLE OR MULTIPLE performed by Sheridan Cassidy MD [facility] ENDOSCOPY ??? PRO UPPER GI ENDOSCOPY, DIAGNOSTIC 11/25/2012 ENDOSCOPY, UPPER GI, DIAGNOSTIC, WITH OR WITHOUT SPECIMENS [facility]?? PRO UPPER GI ENDOSCOPY, DIAGNOSTIC 07/18/2014 EGD, UPPER GI ENDOSCOPY performed by Sheridan Cassidy MD at [facility] ENDOSCOPY ??? UPPER GI ENDOSCOPY, EXAM 09/04/2012 UPPER GI ENDOSCOPY performed by Didier Jones MD at [facility] ENDOSCOPY No current facility-administered medications on [...] PM EST TH Visit (TeleHealth) [place] [address] Roxana Webb MD [facility] [place] [address] documented as of this encounter Procedures Procedure [...] Report (10/20/2017 2:18 PM EST) Final Diagnosis [id number] ? Location: 4T; EA06; A The signing pathologist has (i) examined the relevant preparation(s) for the specimen(s) and (ii) rendered or confirmed the diagnosis(es). . 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 No goblet cell metaplasia is seen. Electronically signed by: ??Stefani Rboerts MD Verified: ??10/23/2017 ?Pathologist Performed at: ??-[facility] Dept. of Pathology, [place], [place] CLINICAL INFORMATION Specimen Submitted: A - Esaphagus bx at Z-line Clinical History: History of Queen 's, followup biopsy Clinical Diagnosis: Same SPECIMEN PROCESSING A - Labeled/Fixativ e: Esophagus BX at Z line 35 cm, formalin. Quantity/Size: Multiple, ranging from 0.1-0.5 cm. Tissue Description: ??Soft, pink tissues . Sections/Proces sing: (T2) ??sns 10/23/2017 11:36 AM EST [facility] GI Biopsy 10/20/2017 2:18 PM EST 10/20/2017 2:18 PM EST Sheridan Cassidy MD PATHOLOGY/CYTOLOGY O PATRICIA Performing Organization Address [facility] [place] [address] * Specimen to Pathology (10/20/2017 2:18 PM EST) AP Specimen 10/20/2017 2:18 PM EST 10/20/2017 2:18 PM EST Narrative [facility] - 10/20/2017 2:18 PM EST Specimen requisition ordered. ??Separate Pathology report to follow Sheridan Cassidy MD PATHOLOGY/CYTOLOGY Britany GOMEZ Performing Organization Address [facility] [place] [address] * UPPER GI ENDOSCOPY (10/20/2017 1:39 PM EST) UPPER GI ENDOSCOPY [facility] Endoscopy ___ Procedure Date: 10/20/2017 1:39 PM ? Patient Name: Mora Bolanos ? Date of : 1975 ? Age: 42 ? Order #: [id number] ? Instrument Name: [id number] ? ___ Procedure: ? Upper GI endoscopy Indications: ? 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 Sheridan Cassidy MD, Eamon Porras, ? RN, Ange Leach ? Malina Oreilly Referring : ?Laura Ross Medicines: ? Fentanyl 250 micrograms [...] the physician, the nurse and the ? program technician in the pre-procedure area ? in [...] Procedure Code(s): ?? --- Professional --- ? 02736, Esophagogastroduode noscopy, ? flexible, transoral; with biopsy, ? single or multiple CPT copyright 2016 [place] [employer] [employer]. All rights reserved. The codes documented in this report are preliminary and upon pre coder review may be revised to meet [...] report has been signed electronically. ____ Ange Oreilly, Number of Addenda: 0 Note Initiated On: 10/20/2017 1:39 PM PROVATION 10/20/2017 1:39 PM EST Laura Ross PRENATAL GENETIC COUNSELOR GENERAL SURGICAL ORD ERABLES PROVATION documented in [...] mcg/mL multi-dose injection ONCE PRN, Starting on 10/20/17 at 1359, Until 10/20/17 at 1708, Intra-Operative (Intra-Procedure), Routine Given 10/20/2017 2:10 PM EST 50 mcg Given 10/20/2017 2:07 PM EST 50 mcg Given 10/20/2017 2:04 PM EST 50 mcg lactated Ringers infusion 100 mL/hr, Intravenous, CONTINUOUS, Starting on 10/20/17 at 1245, Until 10/20/17 at 1458, Endoscopy (Day of Procedure) New Bag 10/20/2017 12:33 PM EST 100 mL/hr 100 mL/hr midazolam (PF) (VERSED) 1 mg/mL multi-dose injection ONCE PRN, Starting on 10/20/17 at 1359, Until 10/20/17 at 1708, Intra-Operative (Intra-Procedure), Routine Given 10/20/2017 2:10 PM EST 1 mg Given 10/20/2017 2:07 PM EST 1 mg Given 10/20/2017 1:58 PM EST 1 mg documented in this encounter Active and Recently Administered Medications Times are shown in EST. Continuous Medication Order 10/18/2017 10/19/2017 10/20/2017 lactated Ringers infusion (CANCELED) 100 mL/hr, Intravenous, CONTINUOUS, Starting on 10/20/17 at 1245, Until 10/20/17 at 1458, Endoscopy (Day of Procedure) 1233 (New Bag - Prov ider: Lacey Borrego RN) PRN Medication Order 10/18/2017 10/19/2017 10/20/2017 diphenhydrAMINE (BENADRYL) injection (CANCELED) ONCE PRN, Starting on 10/20/17 at 1358, Until 10/20/17 at 1708, Intra-Operative (Intra-Procedure), Routine 1355 (Given - Provid er: Eamon Porras, CHELO)1358 (Given - Provider: Eamon Porras RN) fentaNYL 50 mcg/mL multi-dose injection (CANCELED) ONCE PRN, Starting on 10/20/17 at 1359, Until 10/20/17 at 1708, Intra-Operative (Intra-Procedure), Routine 1355 (Given [...] RN) documented in this encounter Care Teams Director Sales Training Relationship Specialty Start Date End Date Laura Ross APRN [address] [place] [address] PCP - General Family Medicine 10/01/17 08/21/22 documented as of this encounter
--- OUTSIDE RECORDS SUMMARY | 2024-08-15 12:11 | XMS_ITS | Encounter Summary ---
Author Organization [facility] [place] [address] Care Team Providers Care Enterprise Services Manager Name Role Phone Kasey Freed MD Primary Care Provider [phone] Encounter Details Date Type Department Care Team (Latest Contact Info) Description 09/09/2012 1:00 PM EST Procedure [place] [address] CLINIC, Patti Ahn RN GERD (gastroesophageal reflux [...] DATE: 09/09/12 PROVIDER: Rigoberto Reid, [place], [place] ([id number]) INDICATION Reflux, epigastric pain, prior fundoplication with concern over esophageal function. METHODS Stationary esophageal manometry was performed with the Storm Exchange esophageal motility system utilizing the [employer] software with a 4-channel solid-state motility probe. [...] of the esophagus. Rigoberto Reid, PhD, MD staking press operator, [facility]ly [facility] [employer] Section of Gastroenterology and Hepatology [facility] [place] [address] V: [phone] F: [phone] [facility]/sunita CC/EC: Sheridan Cassidy MD Enclosure: Tracing PCP Enclosure: Tracing * Patti Plunkett RN - 09/09/2012 2:10 PM EST Esophageal manometry performed without difficulty and was well tolerated. Discharged from lab without voiced concerns. documented in this encounter Plan of Treatment Upcoming Encounters Date Type Department Care Team (Late st Contact Info) Description 08/23/2024 3:30 PM EST TH Visit (TeleHealth) [place] [address] Roxana Webb MD [facility] [place] [address] documented as of this encounter Visit Diagnoses Diagnosis GERD (gastroesophageal reflux disease)- Primary Esophageal reflux documented in this encounter Care Teams Enterprise Services Manager Relationship Specialty Start Date End Date Kasey Freed MD [address] [place] [address] PCP - General 10/02/10 11/22/12 documented as of this encounter
--- OUTSIDE RECORDS SUMMARY | 2024-08-15 12:11 | XMS_ITS | Encounter Summary ---
Author Organization [facility] Address [facility] [place] [address] Care Team Providers Care Video And Sound Recorder Name Role Phone Laura Ross LOUIE Primary Care Provider [phone] Encounter Details Date Type Department Care Team (Latest Contact Info) Description 10/07/2017 10:50 AM EST Office [place] [address] Sheridan Cassidy MD [facility] [place] [address] Gastroesophageal reflux disease, esophagitis presence not specified [...] PM EST TH Visit (TeleHealth) [place] [address] Roxana Webb MD [facility] [place] [address] documented as of this encounter Visit Diagnoses Diagnosis Gastroesophageal reflux disease, esophagitis presence not specified documented in this encounter Care Teams Video And Sound Recorder Relationship Specialty Start Date End Date Laura Ross APRN [address] [place] [address] PCP - General Family Medicine 10/01/17 08/21/22 documented as of this encounter
--- OUTSIDE RECORDS SUMMARY | 2024-08-15 12:11 | XMS_ITS | Encounter Summary ---
Author Organization [facility] [place] [address] Care Team Providers Care Conveyor Feeder Name Role Phone Arely Arzola LOUIE Primary Care Provider [phone] Reason for Visit * Consultation (Routine) - Closed Specialty Diagnoses / Procedures Referred By Martha broussard Referred To Contact Endocrinology Diagnoses wt gain, hairloss, cold intolerance, w/ normal thyroid labs, surgical menopause, gastroparesis Deedee Inman PA [address] [place] [address] [facility] [address] [place] [phone] Referral ID Status Reason Start Date Expiration Date V isits Requested Visits Authorized [id number] Closed Consult, [facility] 2017 2018 1 1 Encounter Details Date Type Department Care Team (Late st Contact Info) Description 09/03/2017 1:30 PM EST Office Visit [place] [address] Dinesh Garner MD [facility] [place] [address] Weight gain; Reactive hypoglycemia; Sweating [...] - 09/03/2017 1:30 PM EST Referred (from [place]!) for fatigue and inability to lose weight [...] ascvd SH Lives w Moved back from [place] 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 We will check her midnight [...] PM EST TH Visit (TeleHealth) [place] [address] Roxana Webb MD [facility] [place] [address] documented as of this encounter Results * Cortisol, saliva (09/09/2017 11:17 PM EST) Bryan Saliva Midnight (JANUARY) <50 <100 ng/dL [facility] Comment: ADDITIONAL INFORMATION This test was developed and its performance characteristics determined by [facility] in a manner consistent with CLIA requirements. This test has not been cleared or approved by the U.S. Food and Drug Administration. Test Performed by: [facility] [place] [address] Specimen of unknown material (specimen) 09/09/2017 11:17 PM EST 09/11/2017 3:05 PM EST Dinesh Garner MD LAB SEND OUT ORDERAB LES [facility] [place] [place] [address] * Cortisol, saliva (09/08/2017 11:16 PM EST) Bryan Saliva Midnight (JANUARY) <50 <100 ng/dL [facility] Comment: ADDITIONAL INFORMATION This test was developed and its performance characteristics determined by [facility] in a manner consistent with CLIA requirements. This test has not been cleared or approved by the U.S. Food and Drug Administration. Test Performed by: [facility] [place] - [address] [address] Specimen of unknown material (specimen) 09/08/2017 11:16 PM EST 09/11/2017 3:05 PM EST Dinesh Garner MD LAB SEND OUT ORDERAB LES Performing Organization Address City/[facility] Co de Phone Number [facility] [place] [address] * T4, free (09/03/2017 4:22 PM EST) Free T4 1.09 0.93 - 1.70 ng/dL [facility] Blood specimen (specimen) 09/03/2017 4:22 PM EST 09/03/2017 4:29 PM EST Narrative Resulting Agency Comment Spec In Lab Dinesh Garner MD CHEMISTRY ORDERABLES Performing Organization Address [facility] Co de Phone Number [facility] [place] [place] [address] * TSH (09/03/2017 4:22 PM EST) Thyroid Stimulating Hormone 1.38 0.27 - 4.20 mlU/ML [facility] Blood specimen (specimen) 09/03/2017 4:22 PM EST 09/03/2017 4:29 PM EST Narrative Resulting Agency Comment Spec In Lab Dinesh Garner MD CHEMISTRY ORDERABLES Performing Organization Address [facility] Co de Phone Number [facility] [place] [address] documented in this encounter Visit Diagnoses Diagnosis Weight gain Abnormal weight gain Reactive hypoglycemia Hypoglycemia, unspecified Sweating abnormality Other specified disorder of sweat glands documented in this encounter Care Teams Conveyor Feeder Relationship Specialty Start Date End Date Arely Arzola APRN [address] [place] [address] PCP - General 11/23/12 09/30/17 documented as of this encounter
--- OUTSIDE RECORDS SUMMARY | 2024-08-15 12:11 | XMS_ITS | Encounter Summary ---
Author Organization [facility] Address [facility] [place] [address] Care Team Providers Care Certified Ophthalmic Technologist Name Role Phone Laura Ross APRN Primary Care Provider Encounter Details Date Type Department Care Team (Late st Contact Info) Description 10/20/2017 11:00 AM EST Clinical Support [place] [address] Nedra Ling, RD [facility] [place] [address] Social History Tobacco Use Types Packs/Day Years [...] go back to work. Moved back to [place] from [place] in June 2017. Support for after surgery: [...] PM EST TH Visit (TeleHealth) [place] [address] Roxana Webb MD [facility] [place] [place] [address] documented as of this encounter Visit Diagnoses Not on filedocumented in this encounter Care Teams Certified Ophthalmic Technologist Relationship Specialty Start Date End Date Laura Ross APRN [address] [place] [address] PCP - General Family Medicine 10/01/17 08/21/22 documented as of this encounter
--- OUTSIDE RECORDS SUMMARY | 2024-08-15 12:11 | XMS_ITS | Encounter Summary ---
Author Organization [facility] [place] [address] Care Team Providers Care Side Door Man Name Role Phone Arely Arzola LOUIE Primary Care Provider [phone] Encounter Details Date Type Department Care Team (Late st Contact Info) Description 05/26/2014 Orders [place] [address] Sheridan Cassidy MD [facility] [place] [address] Esophageal reflux Social History Tobacco Use Types [...] PM EST TH Visit (TeleHealth) [place] [phone] Roxana Webb MD [facility] [place] [address] documented as of this encounter Results * [...] wrap. 2. No gastroesophageal reflux seen. Sheridan GOMEZ FLUORO ORDERABLE S documented in this encounter Visit Diagnoses Diagnosis Esophageal reflux Esophageal reflux documented in this encounter Care Teams Side Door Man Relationship Specialty Start Date End Date Arely Arzola APRN [address] [place] [address] PCP - General 11/23/12 09/30/17 documented as of this encounter
--- OUTSIDE RECORDS SUMMARY | 2024-08-15 12:11 | XMS_ITS | Encounter Summary ---
Author [facility] [place] [address] Care Team Providers Care City Secretary Name Role Phone Arely Arzola APRN Primary Care Provider [phone] Encounter Details Date Type Department Care Team (Late st Contact Info) Description 07/22/2014 6:00 PM EST Office [place] [address] Rigoberto Reid MD [facility] [place] [address] Esophageal reflux Discharge Disposition: Home Social History [...] Reid MD - 07/26/2014 7:45 AM EST [id number] WIRELESS pH CAPSULE STUDY AFTER UPPER ENDOSCOPY Rachkayleigh Mora Kanika Age: Female, 39 y.o., 1975 PCP: Arely Arzola ANIMAL CARE ATTENDANT: NONE STUDY DATES: 07/18/14 to 07/20/14 INTERPRETATION DATE: 07/25/14 PROVIDER: [place]ober[place] ([id number]) INDICATION Reflux symptoms despite prior anti-reflux surgery. [...] 0.9% Percent of Supine Recording Time: 0% Tcjuq-Bhwfh-Jcqr (Total) Fraction of Time with pH Less Than 4%: 0.8% Calculated DeMeester Score (normal values are up to 14.72) Day One Calculated DeMeester Score: 4.5 Day Two Calculated DeMeester Score: 3.5 Flgnf-Zzqtj-Fbxy DeMeester Score (Total): 4 Day One Symptoms Association Probability (SAP) for Heartburn: 74% Regurgitation: 16% Chest pain: 20% Day Two SAP for Heartburn: 78% Regurgitation: 36% Chest pain: 41% Czluv-Dwafy-Okkx SAP for Heartburn: 89% Regurgitation: 48% Chest [...] 95% are positive. Rigoberto Reid MD, PhD forging engineer, [facility] of Medicine Section of Gastroenterology [place] [address] V: [phone] F: [phone] BEL/bcj EC/CC: PCP - fax copy 07/25/14 Sheridan Cassidy MD - staff msg copy 07/25/14 Danni Dominguez - staff msg copy 07/25/14 documented in this encounter Plan of Treatment Upcoming Encounters Date Type Department Care Team (Late st Contact Info) Description 08/23/2024 3:30 PM EST TH Visit (TeleHealth) [place] [address] Roxana Webb MD [facility] [place] [address] documented as of this encounter Visit Diagnoses Diagnosis Esophageal reflux documented in this encounter Care Teams City Secretary Relationship Specialty Start Date End Date Arely Arzola APRN [address] [place] [address] PCP - General 11/23/12 09/30/17 documented as of this encounter
--- OUTSIDE RECORDS SUMMARY | 2024-08-15 12:11 | XMS_ITS | Encounter Summary ---
[place] [address] Care Team Providers Care Grain Oilseed Or Pasture Farm Worker Name Role Phone Arely Arzola LOUIE Primary Care Provider [phone] Reason for Visit * Auth/Cert Specialty Diagnoses / Procedures Referred By Martha broussard Referred To Contact Diagnoses S/P Gabriella fundoplication (without gastrostomy tube) procedure S/P GABRIELLA Procedures PRO UPPER GI ENDOSCOPY, DIAGNOSTIC EGD, UPPER GI ENDOSCOPY Referral ID Status Reason Start Date Expiration Date Visits Re quested Visits Authorized [id number] 1 1 Encounter Details Date Type Department Care Team (Late st Contact Info) Description 07/22/2016 3:30 PM EST - 07/22/2016 4:00 PM EST [place] [address] Sheridan Mosher MD [facility] [place] [address] UPPER GASTROINTESTINAL ENDOSCOPY,WITH BIOPSY SINGLE OR MULTIPLE [...] better as expected. Friday-Friday Same Day Endo [phone]-[id number] Otherwise contact [phone] and ask to speak to the numberer and wirer strategy planning consultant Follow-up care is a diaz part [...] ENDOSCOPY performed by Didier Jones MD at [facility] ENDOSCOPY? Upper gi endoscopy, biopsy?? 09/04/2012? EGD WITH BIOPSY performed by Didier Jones MD at [facility] ENDOSCOPY? Lap, esophagus, other proc?? 11/25/2012? LAPAROSCOPIC REVISION OF GABRIELLA FUNDOPLASTY performed by Sheridan Mosher MD at [facility] MAIN OR? Upper gi endoscopy, diagnostic?? 11/25/2012? ENDOSCOPY, UPPER GI, DIAGNOSTIC, WITH OR WITHOUT SPECIMENS performed by Sheridan Mosher MD at [facility] OR? No current facility-administered medications on [...] Social History Narrative? 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 [place] On examination, she appears well and in [...] Mosher MD - 07/22/2016 5:21 PM EST [facility] Operative Note Patient Name: Mora Bolanos : [id number] MR#: [id number] Case Date: 07/22/2016 Surgeon: Surgeon(s) and Role: [...] PM EST TH Visit (TeleHealth) [place] [address] Roxana Webb MD [facility] [place] [address] documented as of this encounter Procedures Procedure [...] Report (07/22/2016 4:56 PM EST) Final Diagnosis [id number] ?Location: 4T; EA08; A The signing pathologist [...] sing: (T1) ??ejr 07/24/2016 2:38 PM EST [facility] GI Biopsy 07/22/2016 4:56 PM EST 07/22/2016 4:56 PM EST Sheridan Mosher MD PATHOLOGY/CYTOLOGY O PATRICIA Performing Organization Address [facility] [place] [address] * Specimen to Pathology (surgical or derm) (07/22/2016 4:56 PM EST) AP Specimen 07/22/2016 4:56 PM EST 07/22/2016 4:56 PM EST Narrative [facility] - 07/22/2016 4:56 PM EST Specimen requisition ordered. ??Separate Pathology report to follow Sheridan Mosher MD PATHOLOGY/CYTOLOGY O PATRICIA Performing Organization Address [facility] [place] [address] * UPPER GI ENDOSCOPY (07/22/2016 4:08 PM EST) UPPER GI ENDOSCOPY [facility] Endoscopy ___ Procedure Date: 07/22/2016 4:08 PM ? Patient Name: Mora Bolanos ? N: [id number] ? Date of : 1975 ? Age: 41 ? Order #: [id number] ? Instrument Name: [id number] ? ___ Procedure: ? Upper GI endoscopy [...] the physician, the nurse and the ? electrical mechanical technician in the pre-procedure area ? in [...] Procedure Code(s): ?? --- Professional --- ? 17567, Esophagogastroduode noscopy, ? flexible, transoral; with biopsy, ? single or multiple CPT copyright 2015 [employer]. All rights reserved. The codes documented in this report are preliminary and upon core stacker review may be revised to meet current compliance requirements. Attending Participation: ? I personally performed the entire procedure. ? Sheridan Mosher MD 07/22/2016 4:51:29 PM This report has been signed electronically. Number of Addenda: 0 Note Initiated On: 07/22/2016 4:08 PM PROVATION 07/22/2016 4:08 PM EST Arely Ramirez Dariusz LOUIE GENERAL [...] RN) documented in this encounter Care Teams Grain Oilseed Or Pasture Farm Worker Relationship Specialty Start Date End Date Arely Arzola APRN [address] [place] [address] PCP - General 11/23/12 09/30/17 documented as of this encounter
--- OUTSIDE RECORDS SUMMARY | 2024-08-15 12:11 | XMS_ITS | Encounter Summary ---
Author Organization [facility] [place] [address] Care Team Providers Care Belt Conveyor Drier Name Role Phone Arely Arzola LOUIE Primary Care Provider [phone] Encounter Details Date Type Department Care Team (Late st Contact Info) Description 11/25/2012 5:39 PM EDT - 11/25/2012 9:02 PM EDT Surgery [place] [address] Sheridan Mosher MD [facility] [place] [address] LAPAROSCOPIC REVISION OF GABRIELLA FUNDOPLASTY (WRVU 48.75) [...] HOLIDAYS: ASK FOR THE GENERAL SURGERY RESIDENT FIELD INSPECTOR IF ANY OF THE ABOVE OCCUR. Activity level: Increase your activity slowly. You may tire easily, so frequent rest periods may be necessary. Do not lift more than 10 pounds for 4 weeks. Walk three times a day. Use common sense. Don't exhaust yourself. Diet: You should follow a post Gabriella diet, as instructed by the dance studio manager in the hospital for a period of [...] Mosher at the General Surgery Outpatient [facility]- [facility] Assistant Teacher 4. You will receive a letter in the mail confirming the appointment date and time. Your follow-up is very important to us. Please call [phone] if you do not hear from us [...] General Surgery Resident Progress Note Mora Boudreaux Fecdanielle,[id number],1975 ID: A 37 yoF with h/o GERD, endometriosis, chronic constipation, now s/p re-do laparoscopic Gabriella fundoplication POD#2 Interval: No acute events over night Ambulating Pain better controlled Tolerating adequate oral intake ??? DISCONTD: lactated ringers Stopped (11/26/12 0800) ??? DISCONTD: morphine FOOD SERVICE ATTENDANT Stopped (11/26/12 0800) ??? DISCONTD: FOOD SERVICE ATTENDANT diaz ??? DISCONTD: FOOD SERVICE ATTENDANT diaz ??? scopolamine 1 patch Transdermal Q72H [...] 1:57 PM EDT Care Management/ CRC Pager# [phone]/ Assessment O: Patient talking on phone now. Notes reviewed. Patient lives with her Jay. Patient has [employer] PPO insurance. No Advance Directives on file here at [facility]. Patient is POD #1 laparoscopic Gabriella revision. [...] General Surgery Resident Progress Note Mora Boudreaux Fecdanielle,[id number],1975 ID: A 37 yoF with h/o GERD, endometriosis, chronic constipation, now s/p re-do laparoscopic Gabriella fundoplication POD#1 Interval: Taken to surgery last PM, no intraoperative events reported Pain issues this AM Has not ambulated No nausea, tolerating small amount of liquids ??? lactated ringers 100 mL/hr (11/26/12 0521) ??? morphine FOOD SERVICE ATTENDANT ??? FOOD SERVICE ATTENDANT diaz ??? scopolamine 1 patch Transdermal Q72H [...] on progress, possible d/c this PM * yRan Leyva RN - 11/26/2012 4:15 AM EDT [...] vomiting. Oriented to roomand call reddy system. FOOD SERVICE ATTENDANT morphine infusing, set in PACU/Same day surgery. [...] 8:58 PM EDT 2044 instructed to use FOOD SERVICE ATTENDANT Morphine-can successfully perform * Cheryl Matos RN - 11/25/2012 8:57 PM EDT 2024 s/p gabriella revision w/ RC-jwefw-nuiwmymya dressings (5 bandaids) intact documented in this encounter H&P Notes * Sheridan Mosher MD - 11/25/2012 5:06 PM EDT Patient Name: Mora Bolanos Patient Age: 37 y.o. Birthdate: 1975 Admit date: 11/25/2012 Attending Physician: Sheridan Mosher MD Mrs. Bolanos is a 37F post Lap Gabriella Fundoplication in 2010. Apparently had some issues with epigastric pain last year in [place] and had part of her wrap taken down. No improvement in discomfort. Now has recurrent GERD. EGD shows abnormal wrap with some esophagitis Manometry normal Minimal herniation on swallow On ROS, she denies any recent illnesses. No fevers or chills. No CHAUDHRY or vision changes. Nocturnal bell maker above. No SOB. Epigastric pain as above. [...] 2 with colon CA Father with lupus, CAD/UT Brother x 2 with CAD/UT Maternal uncle with pancreatic CA Maternal GF [...] Control/Comfort Level - Pain, Acute (Adult, Obstetric) FOOD SERVICE ATTENDANT was discontinued this morning. Pt c/o sever [...] 2:00 PM Sheridan Mosher MD [facility] [address] [place] [address] CLIN Patient Instructions: Call your doctor if you develop: Fever greater than 101.3 degrees Farenheit (38.5 degrees Celcius), chills, nausea or vomiting. Alsocall if you develop severe pain not relieved by your prescribed oral pain medicine. CALL THE GENERAL SURGERY CLINIC DURING WORKING HOURS AT , OR CALL AFTERCLINIC HOURS, WEEKENDS AND HOLIDAYS: ASK FOR THE GENERAL SURGERY RESIDENT FIELD INSPECTOR IF ANY OF THE ABOVE OCCUR. Activity level: Increase your activity slowly. You may tire easily, so frequent rest periods may be necessary. Do not lift more than 10 pounds for 4 weeks. Walk three times a day. Use common sense. Don't exhaust yourself. Diet: You should follow a post Gabriella diet, as instructed by the dance studio manager in the hospital for a period of [...] Mosher at the General Surgery Outpatient [facility]- [facility] Assistant Teacher 4L Friday. You will receive a letter in the mail confirming the appointment date and time. Your follow-up is very important to us. Please call [phone] if you do not hear from us [...] HOLIDAYS: ASK FOR THE GENERAL SURGERY RESIDENT FIELD INSPECTOR IF ANY OF THE ABOVE OCCUR. Activity level: Increase your activity slowly. You may tire easily, so frequent rest periods may be necessary. Do not lift more than 10 pounds for 4 weeks. Walk three times a day. Use common sense. Don't exhaust yourself. Diet: You should follow a post Gabriella diet, as instructed by the dance studio manager in the hospital for a period of [...] Mosher at the General Surgery Outpatient [facility]- [facility] Assistant Teacher 4L. You will receive a letter in the mail confirming the appointment date and time. Your follow-up is very important to us. Please call [phone] if you do not hear from us [...] s/p endoscopic fundoplication for reflux. On morphine FOOD SERVICE ATTENDANT with good relief obtained. No c/onausea or vomiting, iv fluids infusing, tolerating ice/ water without nausea vomiting. Resp even and unlabored. Patient alert and oriented x4, easily awaken with voice or light touch. * Op Note - Sheridan Mosher MD - 11/25/2012 8:18 PM EDT [facility] Operative Note Patient Name: Mora Bolanos : [id number] MR#: [id number] Case Date: 11/25/2012 Surgeon: Surgeon(s) and Role: [...] with good result but a surgeon in [place] took it down and she now has [...] esophagus was then easily encircled with a Whitman drain and this was used for further traction. The crural closure appeared adequate. After adequate mobility, the mobilized fundus easily remained in place around the esophagus withouttension. Endoscopy was performed to confirm the location of the GE junction and integrity of the stomach. No leaks were noted. A 60 Erit[place]an Bougie was passed by Anesthesia and left [...] then removed under direct vision and the Whitman drain and liver retractor were removed. The [...] PM EST TH Visit (TeleHealth) [place] [address] Roxana Webb MD [facility] [place] [address] documented as of this encounter Procedures Procedure [...] % 88.6(H) 34.0 - 71.0 % CERNER MARIUMENNIUM Neutrophil Absolute 14.47(H) 1.50 - 6.30 x10(3)/mc [...] intervals supplied above were not validated at [facility]. Results from pediatric patients should be interpreted [...] Lab Manoj Leyva MD CHEMISTRY [place] EUGENE MARIUMYUMIKO * (ABNORMAL) CBC (with Diff) (11/26/2012 6:39 [...] Hemoglobin Concentration 33.2 32.0 - 36.5 gm/dL EUGENE BUSTAMANTEIUM Platelet 204 145 - 370 x10(3)/mc L EUGENE BUSTAMANTEIUM RDW Standard Deviation 38.2 35.0 - 46.0 fL EUGENE BUSTAMANTEIUM RDW coefficient of variation 12.4 10.9 - 14.4 % EUGENE BUSTAMANTEIUM Mean Platelet Volume 10.5 9.0 - 12.0 fL EUGENE BUSTAMANTEIUM Blood specimen (specimen) 11/26/2012 6:39 [...] at 2138, Intra-Operative (Intra-Procedure), Routine Given 11/25/2012 7:03 PM [...] 100 mL/hr 100 mL/hr morphine 1 mg/mL FOOD SERVICE ATTENDANT 30 mL Intravenous, FOOD SERVICE ATTENDANT ONLY, Starting on Fri11/25/12 at 2100, Until [...] 0500 (Rate/Dose Verify - Provider: Ryan Leyva, CHELO)0521 (New Bag - Provider: Ryan Leyva, CHELO)0800 (Stopped - Provider: Kasandra Molina RN) morphine 1 mg/mL FOOD SERVICE ATTENDANT 30 mL (CANCELED) Intravenous, FOOD SERVICE ATTENDANT ONLY, Starting on Fri11/25/12 at 2100, Until Fri11/26/12 at 0800 204 (New Syringe/Cartridge - Provider: Cheryl Matos, CHELO) 0800 (Stopped - Provider: Kasandra Molina, RN) PRN Medication Order 11/25/2012 11/26/2012 11/27/2012 BUpivacaine (PF) (MARCAINE) 0.25 % (2.5 mg/mL) injection (CANCELED) ONCE PRN, Starting on Fri11/25/12 at 1903, Until Fri11/25/12 at 213, Intra-Operative (Intra-Procedure), Routine 1902 (Given - Provider: [...] Pain, Routine 1132 (Given - Provider: Kasandra Molina, RN)1744 (Given - Provider: Kasandra Molina, RN) 0000 (Given - Provider: Ryan Leyva, [...] Leyva RN) 0000 (Given - Provider: Ryan Leyva, CHELO)0334 (Given - Provider: Ryan Leyva RN)0625 (Given [...] Transdermal, EVERY 72 HOURS, First dose on 11/28/12 at 1800, Until Discontinued, Remove Scopolamine Patch documented in this encounter Care Teams Belt Conveyor Drier Relationship Specialty Start Date End Date Arely Arzola APRN [facility] [address] [address] PCP - General 11/23/12 09/30/17 documented as of this encounter
--- OUTSIDE RECORDS SUMMARY | 2024-08-15 12:11 | XMS_ITS | Encounter Summary ---
[place] [address] Care Team Providers Care Urologic Nurse Name Role Phone Arely Arzola James PALMA Primary Care Provider [phone] Reason for Visit * Surgical (Routine) - Closed Specialty Diagnoses / Procedures Referred By Martha broussard Referred To Contact Gastroenterology Diagnoses GERD/Queen's prior manometry in 2011 Procedures MANOMETRY ESOPHAGEAL HREM Sheridan Cassidy MD [facility] [place] [address] [facility] [place], [place] Gastro [address] [place] [address] Referral ID Status Reason Start Date Expiration Date Visits Re quested Visits Authorized [id number] Closed 08/01/2016 08/01/2017 1 1 Encounter Details Date Type Department Care Team (Latest Contact Info) Description 08/06/2016 9:00 AM EST Procedure visit [place] [address] Gastroesophageal reflux disease, esophagitis presence not specified [...] PM EST TH Visit (TeleHealth) [place] [address] Roxana Webb MD [facility] [place] [address] documented as of this encounter Visit Diagnoses Diagnosis Gastroesophageal reflux disease, esophagitis presence not specified documented in this encounter Care Teams Urologic Nurse Relationship Specialty Start Date End Date Arely Arzola APRN [address] [place], [place] [address]SCOTT MEJIA [address] PCP - General 11/23/12 09/30/17 documented as of this encounter
--- OUTSIDE RECORDS SUMMARY | 2024-08-15 12:11 | XMS_ITS | Encounter Summary ---
[place] [address] Care Team Providers Care Hadoop Consultant Name Role Phone Arely Arzola APRN Primary Care Provider [phone] Reason for Visit * Reason Comments Follow-up Encounter Details Date Type Department Care Team (Latest Contact Info) Description 07/26/2014 10:40 AM EST Follow-Up [place] [address] CLINIC, Sheridan Russ MD [facility] [place] [address] Gastroesophageal reflux Discharge Disposition: Home Social History [...] PM EST TH Visit (TeleHealth) [place] [address] Roxana Webb MD [facility] [address] documented as of this encounter Visit Diagnoses Diagnosis Gastroesophageal reflux Esophageal reflux documented in this encounter Care Teams Hadoop Consultant Relationship Specialty Start Date End Date Arely Arzola APRN [address] [place] [place] [address] PCP - General 11/23/12 09/30/17 documented as of this encounter
--- OUTSIDE RECORDS SUMMARY | 2024-08-15 12:11 | XMS_ITS | Encounter Summary ---
Author Organization [facility] Address [facility] [place] [address] Care Team Providers Care Pelletizer Name Role Phone Arely Arzola LOUIE Primary Care Provider [phone] Encounter Details Date Type Department Care Team (Latest Contact Info) Description 07/18/2014 12:59 PM EST - 07/18/2014 4:54 PM EST Hospital En[place] [address] Sheridan Cassidy MD [facility] [place] [address] Discharge Disposition: Home Social History Tobacco Use [...] Other Instructions Be sure to carry your organ fixer within 3 feet at all times . [...] or concerns, please call us Friday-Friday Clinic [phone] 8a-5p Same Day Endo [phone] 7a-8p Otherwise contact [phone] and ask to speak to the social and human services assistant computer console operator. Patti Plunkett RN [phone] if any problems with organ fixer Discharge instructions reviewed with patient who expresses [...] ENDOSCOPY performed by Didier Jones MD at [facility] ENDOSCOPY ??? Upper gi endoscopy, biopsy 09/04/2012 EGD WITH BIOPSY performed by Didier Jones MD at [facility] ENDOSCOPY ??? Lap, esophagus, other proc 11/25/2012 LAPAROSCOPIC REVISION OF GABRIELLA FUNDOPLASTY performed by Sheridan Cassidy MD at [facility] MAIN OR ??? Upper gi endoscopy, diagnostic 11/25/2012 ENDOSCOPY, UPPER GI, DIAGNOSTIC, WITH OR WITHOUT SPECIMENS [facility] Meds: None Allergies Allergen Reactions [...] History Narrative ??? 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 guide in [place] Patient Vitals for the past 24 hrs: [...] PM EST TH Visit (TeleHealth) [place] [address] Roxana Webb MD [facility] [place] [address] documented as of this encounter Procedures Procedure Name Priority Date/Time Associated Diagnosis Comments EGD, UPPER GI ENDOSCOPY (WRVU 2.09) 07/18/2014 2:24 PM EST S/P GABRIELLA UPPER GI ENDOSCOPY Routine 07/18/2014 2: 19 PM EST documented in this encounter Results * UPPER GI ENDOSCOPY (07/18/2014 2:19 PM EST) Pathologist [facility] UPPER GI ENDOSCOPY [facility] ___ Patient Name: Mora Bolanos ? Procedure Date: 07/18/2014 2:19 PM ? Date of : 1975 ? Age: 39 ? Order #: [id number] ? ___ Procedure: ? Upper GI endoscopy Indications: ? Esophageal reflux symptoms that recur ? despite appropriate therapy Providers: ? Sheridan Cassidy MD, Patti Nevarez, ? Cj [place], Family Program Specialist Referring MD: ?Arely Arzola Medicines: ? Fentanyl 250 [...] gross lesions in esophagus. ? - The Nirvanix pH capsule was deployed. Procedure Code(s): ?? --- Professional --- ? 94168, Upper gastrointestinal ? endoscopy including esophagus, ? stomach, and either the duodenum ? and/or jejunum as appropriate; ? diagnostic, with or without ? collection of specimen(s) by brushing ? or washing (separate procedure) CPT (R) 2012 [employer]. All Rights Reserved. The codes documented in this report are preliminary and upon accounts payable manager review may be revised to meet current compliance requirements. Sheriadn Cassidy MD 07/18/2014 3:02 PM This report has been signed electronically. Number of Addenda: 0 Note Initiated On: 07/18/2014 2:19 PM PROVATION 07/18/2014 2:19 PM EST Arely Arzola ASSOCIATE RESEARCH SCIENTIST GENERAL SURGICAL ORD ERABLES PROVATION documented in [...] uncomfortable) documented in this encounter Care Teams Pelletizer Relationship Specialty Start Date End Date Arely Arzola, ASSOCIATE RESEARCH SCIENTIST [facility] [address] [place] [address] PCP - General 11/23/12 09/30/17 documented as of this encounter
--- OUTSIDE RECORDS SUMMARY | 2024-08-15 12:11 | XMS_ITS | Encounter Summary ---
Author Organization [facility] [place] [address] Care Team Providers Care Coupon Redemption Clerk Name Role Phone Arely Arzola LOUIE Primary Care Provider [phone] Reason for Referral * Diagnostic Test (Routine) - Closed Specialty Diagnoses / Procedures Referred By Martha broussard Referred To Contact Radiology Diagnoses Gastroesophageal reflux disease, esophagitis presence not specified Procedures XR Fluoro Barium Swallow Ange Cordon MD [facility] [place] [address] [facility] Rad Xray [address] [place] [address] [place] [address] Referral ID Status Reason Start Date Expiration Date V isits Requested Visits Authorized [id number] Closed Specialty Service Requested 09/03/2017 09/03/2018 1 1 Reason for Visit * Reason Comments Follow-up Encounter Details Date Type Department Care Team (Late st Contact Info) Description 09/03/2017 11:30 AM EST Office Visit General Surgery at [facility] [address] Sheridan Cassidy MD [facility] [place] [address] Weight gain (Primary Dx); Gastroesophageal [...] strict medically supervised weight loss with an ASSISTANT PROFESSOR OF SURGERY in [place] for 3 months and still gained weight. 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 She continues to be Vitamin D deficient [...] FUNDOPLASTY performed by Sheridan Cassidy MD at [facility] MAIN OR ??? PRO UPPER GI ENDOSCOPY, BIOPSY 09/04/2012 EGD WITH BIOPSY performed by Didier Jones MD at [facility] ENDOSCOPY ??? PRO UPPER GI ENDOSCOPY, BIOPSY N/A 07/22/2016 UPPER GASTROINTESTINAL ENDOSCOPY,WITH BIOPSY SINGLE OR MULTIPLE performed by Sheridan Cassidy MD [facility] ENDOSCOPY ??? PRO UPPER GI ENDOSCOPY, DIAGNOSTIC 11/25/2012 ENDOSCOPY, UPPER GI, DIAGNOSTIC, WITH OR WITHOUT SPECIMENS [facility] ??? PRO UPPER GI ENDOSCOPY, DIAGNOSTIC 07/18/2014 EGD, UPPER GI ENDOSCOPY performed by Sheridan Cassidy MD at [facility] ENDOSCOPY ??? UPPER GI ENDOSCOPY, EXAM 09/04/2012 UPPER GI ENDOSCOPY performed by Didier Jones MD at [facility] ENDOSCOPY Medications: Current Outpatient Prescriptions on File [...] seen the patient and reviewed Dr. Malina Oreilly's above history and I agree with the detailsas written. The assessment and plan were formulated in discussion with me and I agree with them as documented. documented in this encounter Plan of Treatment Upcoming Encounters Date Type Department Care Team (Late st Contact Info) Description 08/23/2024 3:30 PM EST TH Visit (TeleHealth) [place] [address] Roxana Webb MD [facility] [place] [address] documented as of this encounter Results * [...] EST) Calcium 9.3 8.5 - 10.5 mg/dL [facility] Blood specimen (specimen) 09/03/2017 4:22 PM EST 09/03/2017 4:29 PM EST Narrative Resulting Agency Comment Spec In Lab Ange Oreilly MD CHEMISTRY ORD ERABLES Performing Organization Address City/[facility]/ZIP Co de Phone Number [facility] [place] [address] * PTH (09/03/2017 4:22 PM EST) Parathyroid Hormone 37 15 - 65 pg/mL [facility] Blood specimen (specimen) 09/03/2017 4:22 PM EST 09/03/2017 4:29 PM EST Narrative Resulting Agency Comment Spec In Lab Ange Oreilly MD CHEMISTRY ORD ERABLES Performing Organization Address City/[facility]/ZIP Co de Phone Number [facility] [place] [address] * Comprehensive metabolic panel (non-fasting) (09/03/2017 4:22 PM EST) Glucose 101 65 - 199 mg/dL [facility] Comment:Diabetes: >=200 mg/d L plus symptoms Blood Urea Nitrogen 9 8 - 18 mg/dL [facility] Creatinine 0.80 0.70 - 1.20 mg/dL [facility] Sodium 144 135 - 145 mmol/L [facility] Potassium 4.0 3.5 - 5.0 mmol/L [facility] Comment: Please note: ??Patients with WBC >100,000 may have falsely elevated Potassium levels. ??For accurate Potassium quantification in these patients send serum separator tube (gold top) for subsequent determinations. ??Contact the Clinical Chemistry Laboratory if there are any questions. Chloride 105 98 - 107 mmol/L [facility] Carbon Dioxide 24 22 - 31 mmol/L [facility] Anion Gap 15 5 - 15 mmol/L [facility] Calcium 9.3 8.5 - 10.5 mg/dL [facility] Protein, Total 7.4 6.1 - 8.0 gm/dL [facility] Albumin 4.3 3.2 - 5.2 gm/dL [facility] Aspartate Aminotransferase 23 0 - 30 unit/L [facility] Alanine Aminotransferase 26 0 - 30 unit/L [facility] Alkaline Phosphatase 83 40 - 104 unit/L [facility] Bilirubin, Total 0.2 0.2 - 1.3 mg/dL [facility] Est Glomerular Filtration Rate >60 >=60 [facility] Comment: The reported eGFR should be multiplied by 1.2 for patients. The MDRD is not an appropriate measure of renal function for patients with body mass extremes or in patients with acute kidney failure. http://Simperium.WoowUp/DHnkdep http://Simperium.com/DHMCnkf Blood specimen (specimen) 09/03/2017 4:22 PM EST 09/03/2017 4:29 PM EST Narrative Resulting Agency Comment Spec In Lab Ange Oreilly MD [place]MI[place] [address] documented in this encounter Visit Diagnoses Diagnosis Weight gain- Primary Abnormal weight gain Gastroesophageal reflux disease, esophagitis presence not specified Gastroesophageal reflux disease, esophagitis presence not specified documented in this encounter Care Teams Coupon Redemption Clerk Relationship Specialty Start Date End Date Arely Arzola APRN [address] [place] [address] [place] [address] PCP - General 11/23/12 09/30/17 documented as of this encounter
--- OUTSIDE RECORDS SUMMARY | 2024-08-15 12:12 | XMS_ITS | Encounter Summary ---
Author Organization [place] [address] Care Team Providers Care Angle Dozer Operator Name Role Phone Kasey Rader MD Primary Care Provider [phone] Encounter Details Date Type Department Care Team (Late st Contact Info) Description 09/04/2012 2:30 PM EST - 09/04/2012 3:00 PM EST Surgery [place] [address] Vianney Wolf MD [facility] [place] [address] UPPER GI ENDOSCOPY Social History Tobacco Use [...] GI ENDOSCOPY: WHAT TO EXPECT AT HOME (SERBIAN) documented in this encounter Medications at Time [...] Has since had some revisional surgery in [place] to her fundoplication. I have no info [...] PM EST TH Visit (TeleHealth) [place] [address] Roxana Webb MD [facility] [place] [address] documented as of this encounter Procedures Procedure [...] 6:20 PM EST) Surgical Pathology Report ? [facility] ? Provider: ?? VIANNEY WOLF ??Pt. Name: ?? MEAGAN BOLANOS ? Acc #: ?[id number] ?Pt. ? Col Date: ?? 09/04/2012 ?/Sex: ?1975,(37 years),Female ? Rec Date: ?? 09/04/2012 ?LOC: ?4T ? SURGICAL PATHOLOGY ? ---Pathologic Diagnosis--- ? Endoscopic biopsy - ? A - Esophagus, GE junction: ? Squamocolumnar junctional mucosa (cardia and corpus type) with mild ? chronic inflammation. ??There is no evidence of intestinal metaplasia. ? CR-0 ? 09/07/12 ? XL ? 09/07/12 Verified by: ? Meri Steen MD ? Pathologist ? (Electronic Signature) ? [...] HX of GERD, ? of Queen's CERNER MILLENNIUM 09/04/2012 6:20 PM EST Vianney Wolf MD PATHOLOGY/CYTOLOGY ORDERABLES Performing Organization Address [facility] de Phone Number EUGENE BUSTAMANTEIUM * Specimen to Pathology (surgical or derm) (09/04/2012 4:02 PM EST) AP Specimen 09/04/2012 4:02 PM EST 09/04/2012 4:02 PM EST Narrative CERNER MILLENNIUM - 09/04/2012 4:02 PM EST Specimen requisition ordered. ??Separate Pathology report to follow Vianney Wolf MD PATHOLOGY/CYTOLOGY ORDERABLES Performing Organization Address [facility] Co de Phone Number [facility] * UPPER GI ENDOSCOPY (09/04/2012 3:37 PM EST) Pathologist [facility] [place] UPPER GI ENDOSCOPY [facility] Patient Name: Meagan Bolanos ? Procedure Date: 09/04/2012 3:37 PM ? Date of : 1975 ? Age: 37 ? Order #: [id number] ? Procedure: ? Upper GI endoscopy Indications: ? Epigastric abdominal pain, Assessment ? following Magdaleno fundoplication Providers: ? Vianney Wolf MD, Alexandra ? CHELO Taylor, Camille López, ? Laminating Press Operator Referring MD: ?Kasey Rader MD Medicines: ? [...] Alexandra Taylor, CHELO)1550 (Given - Provider: Alexandra Taylor RN)1554 (Given - Provider: Alexandra Taylor, CHELO) documented in this encounter Care Teams Angle Dozer Operator Relationship Specialty Start Date End Date Kasey Rader MD [address] [address] PCP - General 10/02/10 11/22/12 documented as of this encounter
--- OUTSIDE RECORDS SUMMARY | 2024-08-15 12:12 | XMS_ITS | Encounter Summary ---
Author Organization [facility] Address [address] [place] [address] Care Team Providers Care Diver Helper Name Role Phone Cayla Yeager Odette HOFF Primary Care Provider [phone] Encounter Details Date Type Department Care Team (Latest Contact Info) Description 11/15/2009 20:21 EST - 11/15/2009 23:59 EST Hospital Encounter [facility] [address] [place] [address] Opal Thapa MD [address] [place] [address] Discharge Disposition: Auto Discharge Social History Tobacco Use Types Packs/Day Years Used Date Smoking Tobacco: Never Comments:no Alcohol Use Standard Drinks/Week Comments No 0 (1 standard drink = 0.6 oz pur e alcohol) no Comments Unknown Sex and Gender Information Value Date Recorded Sex Assigned at Not on file Legal Sex Female 17:31 EST Gender Identity Not on file Sexual Orientation Not on file documented as of this encounter Medications at Time of Discharge acetaminophen (TYLENOL) 500 mg tablet Take 2 Tabs by mouth as needed for Pain. Last dose 3 hrs ago IBUPROFEN ORAL Take by mouth as needed. oxycodone-acetami nophen (PERCOCET) 5-325 mg per tablet Take 1 [...] on filedocumented in this encounter Care Teams Diver Helper Relationship Specialty Start Date End Date Cayla Yeager FNP [address] [place] [address] PCP - General 05/30/09 documented as of this encounter
--- OUTSIDE RECORDS SUMMARY | 2024-08-15 12:12 | XMS_ITS | Encounter Summary ---
Author Organization [facility] Address [address] [place] [address] Care Team Providers Care Humanities Coordinator Name Role Phone Cayla Yeager KAVYA Primary Care Provider [phone] Encounter Details Date Type Department Care Team (Late st Contact Info) Description 10/20/2009 9:13 EST - 10/20/2009 23:59 EST Hospital Encounter [facility] Ophthalmology - [facility] [address] [place] [address] Rigoberto Bains MD [address] [facility] [place] [address] Discharge Disposition: Home or Self [...] Code Departure Means Destination Home or Self Residential documented in this encounter Consult Notes * Rigoberto Bains MD - 10/20/2009 0000 EST [facility] CONSULTATION - 10/20/2009 [place] [address] Dear Gene: Thank you for allowing me [...] Rigoberto Bains MD [facility] [address] [place] [address] - Rigoberto Bains MD - CJTato Job ID: SM Doc ID: [id number] Ext Doc ID: [id number] cc: *Gene Lan MD* documented in this encounter Plan of Treatment Not on file documented as of this encounter Visit Diagnoses Not on filedocumented in this encounter Care Teams Humanities Coordinator Relationship Specialty Start Date End Date Cayla Yeager FNP [address] [place] [address] PCP - General 05/30/09 documented as of this encounter
--- OUTSIDE RECORDS SUMMARY | 2024-08-15 12:12 | XMS_ITS | Referral Summary ---
Author Organization [facility] [place] [facility] Address [address] [place] [address] Care Team Providers Care Content Publisher Name Role Phone Cayla Yeager DIRECTOR OF THERAPY SERVICES Primary Care Provider [phone] Allergies Active Allergy Reactions Criticality Noted Date Comments Bupropion 08/05/2009 Medications pantoprazole (PROTONIX) 20 mg tablet Take 2 Tabs by mouth daily. 30 Tab 0 08/05/2009 Active acetaminophen (TYLENOL) 500 mg tablet Take 2 Tabs by mouth as needed for Pain. Last dose 3 hrs ago Active oxycodone-acetam inophen (PERCOCET) 5-325 mg per tablet Take 1 Tab by mouth every 4 hours as needed for Pain. 15 Tab 0 08/06/2009 Active IBUPROFEN ORAL Take by mouth as needed. Active PEG 3350-Electrolyte s (MIRALAX) 17 gram packet Take 17 g by mouth daily. 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
--- OUTSIDE RECORDS SUMMARY | 2024-08-15 12:12 | XMS_ITS | Encounter Summary ---
Author Organization [facility] Address [facility] [place] [address] Care Team Providers Care Rolled Gold Plater Name Role Phone Kasey Rader MD Primary Care Provider [phone] Encounter Details Date Type Department Care Team (Late st Contact Info) Description 09/03/2012 3:00 PM EST Follow-[place] [address] Sheridan Cassidy MD [facility] [place] [address] GERD (gastroesophageal reflux disease) (Primary Dx); Gastroesophageal [...] initial result. She developed acute cholecystitis in [place] and since her [place] she has had epigastric pain, dysphagia and bloating. A surgeon in [place] re-operated on her and apparently took down [...] PM EST TH Visit (TeleHealth) [place] [address] Roxana Webb MD [facility] [place] [place] [address] documented as of this encounter Results * [...] reflux documented in this encounter Care Teams Rolled Gold Plater Relationship Specialty Start Date End Date Kasey Rader MD [address] [place] [address] PCP - General 10/02/10 11/22/12 documented as of this encounter
--- OUTSIDE RECORDS SUMMARY | 2024-08-15 12:12 | XMS_ITS | Encounter Summary ---
Author Organization [facility] Address [address] [place] [address] Care Team Providers Care Green Belt Name Role Phone Cayla Yeager Primary Care Provider [phone] Encounter Details Date Type Department Care Team (Late st Contact Info) Description 09/21/2009 Orders Only [facility] [phone] Cayla Yeager, KAVYA [address] [place], [place] [address] Social History Tobacco Use Types Packs/Day Years [...] no significant central or foraminal stenosis Cayla Yeager [facility] MRI ORDERABLES Final Result documented in this encounter Visit Diagnoses Not on filedocumented in this encounter Care Teams Green Belt Relationship Specialty Start Date End Date Cayla Yeager FNP [address] [place] [address] PCP - General 05/30/09 documented as of this encounter
--- OUTSIDE RECORDS SUMMARY | 2024-08-15 12:12 | XMS_ITS | Encounter Summary ---
Author Organization [facility] [place] [address] Care Team Providers Care Oracle Financials Developer Name Role Phone Kasey Rader MD Primary Care Provider [phone] Encounter Details Date Type Department Care Team (Late st Contact Info) Description 01/11/2011 Abstract [place] [address] Rigoberto Reid MD [facility] [place] [address] Social History Tobacco Use Types Packs/Day Years [...] PM EST TH Visit (TeleHealth) [place] [address] Roxana Webb MD [facility] [place] [address] documented as of this encounter Visit Diagnoses Not on filedocumented in this encounter Care Teams Oracle Financials Developer Relationship Specialty Start Date End Date Kasey Rader MD [address] [place], [place] [address] PCP - General 10/02/10 11/22/12 documented as of this encounter
--- OUTSIDE RECORDS SUMMARY | 2024-08-15 12:12 | XMS_ITS | Encounter Summary ---
Author Organization [facility] Address [address] [place] [address] Care Team Providers Care Building Construction Contractor Name Role Phone Cayla Yeager Odette HOFF Primary Care Provider [phone] Encounter Details Date Type Department Care Team (Latest Contact Info) Description 08/16/2009 13:06 EST - 08/16/2009 23:59 EST Hospital Encounter [facility] [address] [place] [address] Ihsan Olmos MD [address] [place] [address] Discharge Disposition: Auto Discharge Social [...] for Pain. Last dose 3 hrs ago oxycodone-acetami nophen (PERCOCET) 5-325 mg per tablet [...] filedocumented in this encounter Care Teams Building Construction Contractor Relationship Specialty Start Date End Date Cayla Yeager FNP [address] [place] [address] PCP - General 05/30/09 documented as of this encounter
--- OUTSIDE RECORDS SUMMARY | 2024-08-15 12:12 | XMS_ITS | Encounter Summary ---
Author Organization [facility] Address [address] [place] [address] Care Team Providers Care Computer Hardware Developer Name Role Phone Cayla Yeager KAVYA Primary Care Provider [phone] Encounter Details Date Type Department Care Team (Late st Contact Info) Description 03/13/2023 Lab Requisition [facility] Pathology & Laboratory Medicine - [address] [address] Outr Resulting Lab, Provider Social History Tobacco [...] IGA <1.2 <4.0 U/mL 03/17/2023 13:03 EDT [facility] Comment: A negative result may be due to IgA deficiency and does not rule out celiac disease. ? Negative: ??<4.0 U/mL ? Weak Positive: ??4.0 - 10.0 U/mL ? Positive: ??>10.0 U/mL Results were obtained with the [employer] QUANTA Lite R h-tTG IgA AJ assay on the [employer] DSX. IgA 212 85 - 499 mg/dL 03/17/2023 13:03 EDT [facility] Celiac Disease Interpretation Negative Serology. Celiac disease unlikely. Approximately 10% of patients with celiac disease are seronegative. Patients who are already adhering to a gluten-free diet may also be seronegative. If celiac disease is highly clinically suspected, referral to gastroenterology for additional evaluation is recommended. 03/17/2023 13:03 EDT [facility] Blood VENOUS BLOOD / Unknown 03/13/2023 16:21 EDT 03/13/2023 21:48 EDT us Provider Outr Resulting Lab IMMUNOLOGY AND SEROL OGY ORDERABLES Final Result Performing Organization Address City/State/[facility] Co de Phone Number [facility] [address] [place] [address] documented in this encounter Visit Diagnoses Not on filedocumented in this encounter Care Teams Computer Hardware Developer Relationship Specialty Start Date End Date Cayla Yeager FNP [address] [place] [address] PCP - General 05/30/09 documented as of this encounter
--- OUTSIDE RECORDS SUMMARY | 2024-08-15 12:12 | XMS_ITS | Encounter Summary ---
Author Organization [facility] Address [address] [place] [address] Care Team Providers Care Fbi Profiler Name Role Phone Cayla Yeager Primary Care Provider [phone] [phone] Encounter Details Date Type Department Care Team (Late st Contact Info) Description 10/23/2009 Abstract [facility] OBGYN Services - [facility] [address], [place] [address] Cayla Yeager FNP [address] [place], [place] [id number] Unspecified symptom associated with female genital organs [...] organs documented in this encounter Care Teams Fbi Profiler Relationship Specialty Start Date End Date Cayla Yeager FNP [address] [place], [place] [phone] PCP - General 05/30/09 documented as of this encounter
--- OUTSIDE RECORDS SUMMARY | 2024-08-15 12:12 | XMS_ITS | Encounter Summary ---
Author Organization [facility] Address [address] [place] [address] Care Team Providers Care Family Resource Coordinator Name Role Phone Cayla Yeager KAVYA Primary Care Provider [phone] Reason for Visit * Reason Comments Abdominal [...] 15:25 EST - 08/21/2009 21:39 EST Emergency [facility] Emergency Department - [address] [id number] Ayo Webb MD [address] [facility], Level 1 [place] [address] Emergency, MD Efren Abdominal Pain; [...] Pressure 106/59 08/21/2009 2100 EST Pulse 64 08/21/20092099 EST Temperature 36.7 ??C (98.1 ??F) 08/21/2009 1529 EST Respiratory Rate 16 08/21/20092099 EST Oxygen Saturation 99% 08/21/20092099 EST Inhaled Oxygen Concentration - - Weight - - Height - - Body Mass Index - - documented in this encounter Discharge Instructions * Discharge Instructions* Ayo Webb MD - 08/21/2009 21:27 EST Images from the original note were not included. Call Dr. Yeager's office to make sure the upper GI study is scheduled for as soon as possible. [facility] Patient Instructions Abdominal Pain in Adults: After [...] Where can you learn more? Go to [email or web address] Enter E907 in the search box to learn more about Abdominal Pain in Adults: After Your Visit. ?? 2005 - 2008 [employer]. Care instructions adapted under license by [facility] . This care instruction is for use with your licensed healthcare professional. If you have questions about a medical condition or this instruction, always ask your healthcare professional. [employer] disclaims any warranty or liability for your [...] times daily. 20 Cap 0 08/05/2009 09/25/2009 hydrocodone-aceta minophen (VICODIN) 5-500 mg per tablet Take 1-2 Tabs by mouth every 6 hours as needed for Pain. 30 Tab 0 08/21/2009 09/25/2009 documented as of this encounter Ordered Prescriptions Prescription Sig Dispense Quantity Refills Last Filled Start Date End Date hydrocodone-acetam inophen (VICODIN) 5-500 mg per tablet Take 1-2 [...] stomach, duodenal bulb and sweep were obtained. Operation Manager KUB is non specific. There are pelvic [...] No gastric outlet obstruction. Procedure Note 08/24/2009 [facility] WO/AIR CONTR Aug 24, 2009 10:36:00 AM Signs and Symptoms/Comments: ABDOMINAL PAIN and bloating Comparison: CT of the abdomen and pelvis dated 08/16/2009 Findings: Single and double-contrast views of the thoracic esophagus, stomach, duodenal bulb and sweep were obtained. Operation Manager KUB is non specific. There are pelvic [...] outlet obstruction. Ayo Webb MD IMG FLUOROSCOPY ORDERABLES Final Result * HEMAGRAM AND DIFFERENTIAL (08/21/2009 18:05 EST) WBC 9.01 4.0 - 12.4 K/cmm [facility] RBC 4.56 3.86 - 5.04 M/cmm [facility] Hemoglobin 12.8 11.6 - 15.2 gm/dl [...] [facility] Type of Diff: Automated [facility] Blood specimen (specimen) 08/21/2009 18:05 EST 08/21/2009 18:11 EST us Ayo Webb MD PACKAGES & DNA PROBE ORDERA BLES Final Result Performing Organization Address City/State/[facility] Co de Phone Number [facility] [address] [place] [address] * LIVER FUNCTION TESTS (08/21/2009 18:05 EST) Albumin 4.1 3.4 - 4.9 g/dl [facility] Total Protein 7.3 6.5 - 8.3 g/dl [facility] Alkaline Phosphatase 78 38 - 126 U/L [facility] ALT 35 9 - 52 U/L [facility] AST 24 15 - 46 U/L [facility] Unconjugated Bilirubin 0.3 0.1 - 1.1 mg/dl [facility] Conjugated Bilirubin 0.0 0.0 - 0.3 mg/dl [facility] Bilirubin, Total <0.5 0.2 - 1.3 mg/dl [facility] Blood specimen (specimen) 08/21/2009 18:05 EST 08/21/2009 18:11 EST yAo Webb MD CHEMISTRY & BLOOD GAS ORDER JERARDO Final Result Performing Organization Address [facility] Phone Number [facility] [address] [place] [address] * LIPASE (08/21/2009 18:05 EST) Lipase 236 0 - 250 U/L [facility] Blood specimen (specimen) 08/21/2009 18:05 EST 08/21/2009 18:11 EST Ayo Webb MD CHEMISTRY & BLOOD GAS ORDER JERARDO Final Result Performing Organization Address [facility] Phone Number [facility] [address] [place] [address] * ELECTROLYTES (08/21/2009 18:05 EST) Sodium 141 136 - 145 mEq/L [facility] Potassium 4.1 3.5 - 5.0 mEq/L [facility] Chloride 104 96 - 110 mEq/L [facility] CO2 29 24 - 32 mEq/L [facility] Blood specimen (specimen) 08/21/2009 18:05 EST 08/21/2009 18:11 EST Ayo Webb MD CHEMISTRY & BLOOD GAS ORDER JERARDO Final Result Performing Organization Address [facility] de Phone Number [facility] [address] [place] [address] * BUN (08/21/2009 18:05 EST) BUN 12 10 - 26 mg/dl [facility] Blood specimen (specimen) 08/21/2009 18:05 EST 08/21/2009 18:11 EST Ayo Webb MD CHEMISTRY & BLOOD GAS ORDER JERARDO Final Result Performing Organization Address [facility] Co de Phone Number [facility] [address] [place] [address] * CREATININE (08/21/2009 18:05 EST) Creatinine 0.70 0.7 - 1.5 mg/dl [facility] GFR, Calculated >60 ml/min/1.7 3m2 [facility] Blood specimen (specimen) 08/21/2009 18:05 EST 08/21/2009 18:11 EST Ayo Webb MD CHEMISTRY & BLOOD GAS ORDER JERARDO Final Result Performing Organization Address [facility] de Phone Number [facility] [address] [place] [address] * POCT URINE TEST (08/21/2009 17:27 EST) Kit Lot Number POINT OF CARE Expiration Date POINT OF CARE Test, Urine, POC Negative Negative POINT OF CARE Control Line Present POINT OF CARE Background Clear? POINT OF CARE Urine specimen (specimen) 08/21/2009 17:27 EST Ayo Webb MD POINT OF CARE TEST ORDERABL ES Final Result Performing Organization Address [facility] de Phone Number POINT OF CARE * [...] mg/dL POINT OF CARE Urobilinogen, UA 0.2 <=2.0 E.U./dL POINT OF CARE Nitrite, UA Negative Negative POINT OF CARE Leuk Esterase Negative Negative POINT OF CARE Comment POINT OF CARE Urine specimen (specimen) 08/21/2009 17:26 EST Ayo Webb MD POINT OF CARE TEST ORDERABL ES Final Result POINT OF CARE documented in this encounter [...] mg, intravenous, NOW X1, 1 dose, On 08/21/09 at 1815, STAT Given 08/21/2009 18:17 EST [...] red Date DIET NPO TIME SPECIFIED 1 08/21/2009 Nursing Count Last Ordered Date First Orde red Date INSERT PERIPHERAL IV 1 08/21/2009 documented in this encounter Care Teams Family Resource Coordinator Relationship Specialty Start Date End Date Cayla Yeager FNP [address] [place] [address] PCP - General 05/30/09 documented as of this encounter
--- OUTSIDE RECORDS SUMMARY | 2024-08-15 12:12 | XMS_ITS | Encounter Summary ---
Author Organization [facility] [place] [address] Care Team Providers Care Equipment Service Lead Name Role Phone Mike Goodman DNP Primary Care Provider Encounter Details Date Type Department Care Team (Late st Contact Info) Description 02/17/2004 [place] [id number] Lena Howard MD OBSTETRICS & GYNECOLOGY Social History Tobacco Use Types Packs/Day Years Used Date Smoking Tobacco: Never Assessed [facility] Utilities Answer Date Recorded In [...] PM EST TH Visit (TeleHealth) [place] [address] Roxana Webb MD [facility] [place] [address] documented as of this encounter Procedures Procedure Name Priority Date/Time Associated Diagnosis Comments SURGICAL PATHOLOGY REPORT Routine 02/17/2004 1:03 PM EDT documented in this encounter Results * Surgical Pathology Report (02/17/2004 1:03 PM EDT) Surgical Pathology Report [id number] ? Location: The signing pathologist has (i) [...] Lena Howard MD PATHOLOGY/CYTOLOGY O RDERABLES EUGENE BROOKS documented in this encounter Visit Diagnoses Not on filedocumented in this encounter Care Teams Equipment Service Lead Relationship Specialty Start Date End Date Mike Goodman DNP [address] [place] [address] [place] [address] PCP - General Family Medicine 08/22/22 documented as of this encounter
--- OUTSIDE RECORDS SUMMARY | 2024-08-15 12:12 | XMS_ITS | Encounter Summary ---
Author Organization [facility] Address [address] [place] [address] Care Team Providers Care Senior Insight Manager International Name Role Phone Cayla Yeager KAVYA Primary Care Provider [phone] Encounter Details Date Type Department Care Team (Late st Contact Info) Description 12/24/2023 Lab Requisition [facility] Pathology & Laboratory Medicine - [address] [id number] Outr Resulting Lab, Provider Social History Tobacco [...] 19 - 88 pg/mL 12/24/2023 21:48 EDT [facility] Blood VENOUS BLOOD / Unknown 12/23/2023 13:30 EDT 12/24/2023 20:31 EDT us Provider Outr Resulting Lab CHEMISTRY & BLOOD GA S ORDERABLES Final Result Performing Organization Address City/[facility]/ZIP Co de Phone Number [facility] [address] [place], [place] [address] * PREALBUMIN (12/23/2023 13:30 EDT) Prealbumin 24 20 - 40 mg/dL 12/25/2023 8:45 EDT [facility] Blood VENOUS BLOOD / Unknown 12/23/2023 13:30 EDT 12/24/2023 20:31 EDT us Provider Outr Resulting Lab CHEMISTRY & BLOOD GA S ORDERABLES Final Result Performing Organization Address [facility] Co de Phone Number [facility] [address] [place] [phone] documented in this encounter Visit Diagnoses Not on filedocumented in this encounter Care Teams Senior Insight Manager International Relationship Specialty Start Date End Date Cayla Yeager FNP [address] [place] [address] PCP - General 05/30/09 documented as of this encounter
--- OUTSIDE RECORDS SUMMARY | 2024-08-15 12:12 | XMS_ITS | Encounter Summary ---
Author Organization [facility] Address [facility] [place] [address] Care Team Providers Care Web Editor Name Role Phone Kasey Rader MD Primary Care Provider [phone] Encounter Details Date Type Department Care Team (Latest Contact Info) Description 09/04/2012 7:49 AM EST - 09/04/2012 11:59 PM [facility] Hospital Encounter XRay at [address] [place] [address] CLINIC, Sheridan Russ MD [facility] [place] [address] GERD (gastroesophageal reflux disease) Discharge Disposition: Home [...] PM EST TH Visit (TeleHealth) [place] [address] Roxana Webb MD [facility] [place] [address] documented as of this encounter Procedures Procedure [...] mLs documented in this encounter Care Teams Web Editor Relationship Specialty Start Date End Date Kasey Rader MD [address] [place] [address] PCP - General 10/02/10 11/22/12 documented as of this encounter
--- OUTSIDE RECORDS SUMMARY | 2024-08-15 12:12 | XMS_ITS | Encounter Summary ---
Author Organization [facility] Address [address] [place] [address] Care Team Providers Care Lockmaker Name Role Phone Cayla Yeager Odette HOFF Primary Care Provider [phone] Encounter Details Date Type Department Care Team (Latest Contact Info) Description 10/21/2009 11:41 EST - 10/21/2009 23:59 EST Hospital Encounter [facility] [address] [place] [address] Client, MD Efren Discharge Disposition: Home or [...] Code Departure Means Destination Home or Self Detention documented in this encounter Plan of Treatment Not on file documented as of this encounter Procedures Procedure Name Priority Date/Time Associated Diagnosis Comments MUMPS ANTIBODY IGG Routine 10/21/2009 12 :01 EST documented in this encounter Results * MUMPS ANTIBODY IGG (10/21/2009 12:01 EST) Mumps Antibody IgG Positive [facility] Blood specimen (specimen) 10/21/2009 12:01 EST 10/21/2009 12:03 EST us Nurse Employee Health IMMUNOLOGY AND SEROLOGY OR DERABLES Final Result Performing Organization Address City/State/[facility] Co de Phone Number [facility] [address] [place] [address] documented in this encounter Visit Diagnoses Not on filedocumented in this encounter Care Teams Lockmaker Relationship Specialty Start Date End Date Cayla Yeager FNP [address] [place] [address] PCP - General 05/30/09 documented as of this encounter
--- OUTSIDE RECORDS SUMMARY | 2024-08-15 12:12 | XMS_ITS | Encounter Summary ---
Author Organization [facility] Address [facility] [place] [address] Care Team Providers Care Transfer And Pumphouse Operator Chief Name Role Phone Mike Goodman DNP Primary Care Provider [phone] Encounter Details Date Type Department Care Team (Late st Contact Info) Description 09/17/2010 Orders [place] [address] Rigoberto Reid MD [facility] [place] [address] Social History Tobacco Use Types Packs/Day Years Used Date Smoking Tobacco: Never Assessed [facility] Utilities Answer Date Recorded In the [...] in a detention (including now)? No 10/16/2023 IPV Inpatient Questions [...] PM EST TH Visit (TeleHealth) [place] [address] Roxana Webb MD [facility] [place] [address] documented as of this encounter Procedures Procedure Name Priority Date/Time Associated Diagnosis Comments SURGICAL PATHOLOGY REPORT Routine 09/17/2010 2:19 PM EST documented in this encounter Results * Surgical Pathology Report (09/17/2010 2:19 PM EST) Surgical Pathology Report [id number] ? Location: 4T The signing pathologist has [...] in rendering the final pathologic diagnosis. [facility] 09/17/2010 2:19 PM EST Rigoberto Reid MD PATHOLOGY/CYTOLOGY O RDERACALVIN EUGENE [facility] documented in this encounter Visit Diagnoses Not on filedocumented in this encounter Care Teams Transfer And Pumphouse Operator Chief Relationship Specialty Start Date End Date Mike Goodman DNP [address] [place] [address] PCP - General Family Medicine 08/22/22 documented as of this encounter
--- OUTSIDE RECORDS SUMMARY | 2024-08-15 12:12 | XMS_ITS | Encounter Summary ---
Author Organization [facility] Address [address] [place] [address] Care Team Providers Care Superintendent Electric Power Name Role Phone Cayla Yeager KAVYA Primary Care Provider [phone] Encounter Details Date Type Department Care Team (Latest Contact Info) Description 11/27/2009 15:58 EDT - 11/27/2009 23:59 EDT Hospital Encounter [facility] Ophthalmology - Main [place] [address] [place] [address] Opal Thapa MD [address] [place] [phone] Discharge Disposition: Auto Discharge Social History Tobacco [...] - 11/27/2009 0000 EDT DIVISION OF OPHTHALMOLOGY [facility] CONSULTATION - 11/27/2009 [place] [address] Dear Rigoberto: Ms Mora Bolanos was seen [...] exam reveals pink, healthy-appearing optic nerves with vftmedfjl-go-[id number] ratio, normal macula and retinal vessels. Ms [...] Thapa MD - Opal Thapa MD - [facility] Job ID: SM Doc ID: [id number] Ext Doc ID: [id number] cc: KAVYA Medel MD documented in this encounter Plan of Treatment Not on file documented as of this encounter Visit Diagnoses Not on filedocumented in this encounter Care Teams Superintendent Electric Power Relationship Specialty Start Date End Date Cayla Yeager FNP [address] [place] [address] PCP - General 05/30/09 documented as of this encounter
--- OUTSIDE RECORDS SUMMARY | 2024-08-15 12:12 | XMS_ITS | Encounter Summary ---
Author Organization [facility] Address [address] [place] [address] Care Team Providers Care Licensing Court Magistrate Name Role Phone Cayla Yeager KAVYA Primary Care Provider [phone] Encounter Details Date Type Department Care Team (Late st Contact Info) Description 11/03/2009 Orders Only [facility] Ophthalmology - Main [place] [address] [place], [place] [id number] Opal Thapa MD [address] [place] [phone] Social History Tobacco Use Types Packs/Day Years [...] above interpretation and agree with the findings. us Opal Thapa MD IMG MRI ORDERABLES Final Res ult documented in this encounter Visit Diagnoses Not on filedocumented in this encounter Care Teams Licensing Court Magistrate Relationship Specialty Start Date End Date Cayla Yeager FNP [address] [place] [address] PCP - General 05/30/09 documented as of this encounter
--- OUTSIDE RECORDS SUMMARY | 2024-08-15 12:12 | XMS_ITS | Encounter Summary ---
Author Organization [facility] [place] [address] Care Team Providers Care Cot Assembler Name Role Phone Kasey Rader MD Primary Care Provider [phone] Encounter Details Date Type Department Care Team (Late st Contact Info) Description 09/17/2010 [place] [address] Rigoberto Sommers MD [facility] [place] [address] Social History Tobacco Use Types Packs/Day Years [...] PM EST TH Visit (TeleHealth) [place] [address] Roxana Webb MD [facility] [address] documented as of this encounter Procedures Procedure Name Priority Date/Time Associated Diagnosis Comments SURGICAL PATHOLOGY REPORT Routine 09/17/2010 2:19 PM EST documented in this encounter Results * PATHOLOGY SURGICAL PATHOLOGY FINAL REPORT (09/17/2010 2:19 PM EST) Surgical Pathology Report ? [facility] ? Provider: ?? RIGOBERTO SOMMERS ? Pt. Name: ?? MORA BOLANOS ? Acc #: ?[id number] ?Pt. ? Col Date: ?? 09/17/2010 ?/Sex: [...] random ? Clinical History: ? _ ? [facility] ? Provider: ?? RIGOBERTO SOMMERS ? Pt. Name: ?? MORA BOLANOS ? Acc #: ?[id number] ?Pt. ? Col Date: ?? 09/17/2010 ?/Sex: ?1975,(35 years),Female ? Rec Date: ?? 09/17/2010 ?LOC: ?4T ? SURGICAL PATHOLOGY ? Clinical Diagnosis: ? _ EUGENE BROOKS 09/17/2010 2:19 PM EST Rigoberto Sommers MD PATHOLOGY/CYTOLOGY O RDERABLES Performing Organization Address City/State/[facility] Co de Phone Number EUGENE BROOKS documented in this encounter Visit Diagnoses Not on filedocumented in this encounter Care Teams Cot Assembler Relationship Specialty Start Date End Date Kasey Rader MD [address] [place] [address] PCP - General 10/02/10 11/22/12 documented as of this encounter
--- OUTSIDE RECORDS SUMMARY | 2024-08-15 12:12 | XMS_ITS | Encounter Summary ---
Author Organization [facility] Address [address] [place] [address] Care Team Providers Care Solution Maker Name Role Phone Cayla Yeager Primary Care Provider [phone] Encounter Details Date Type Department Care Team (Late st Contact Info) Description 08/28/2009 Abstract Used for ABSTRACTING Data [phone] Cayla Yeager FNP [address] [place], [place] [address] Social History Tobacco Use Types Packs/Day Years [...] may reflect changes made after this encounter. IBUPROFEN ORAL Take by mouth as needed. meclizine (ANTIVERT) 25 mg tablet Take 25 mg by mouth daily as needed. 09/25/2009 added in this encounter Care Teams Solution Maker Relationship Specialty Start Date End Date Cayla Yeager FNP [address] [place], [place] [id number] PCP - General 05/30/09 documented as of this encounter
--- OUTSIDE RECORDS SUMMARY | 2024-08-15 12:12 | XMS_ITS | Encounter Summary ---
Author Organization [facility] Address [facility] [place] [address] Care Team Providers Care Brownell Operator Name Role Phone Kasey Rader MD Primary Care Provider [phone] Encounter Details Date Type Department Care Team (Late st Contact Info) Description 10/02/2010 9:30 AM EST Office Visit [place] [address] Sheridan Cassidy MD [facility] [place] [address] Discharge Disposition: Home Social History Tobacco Use [...] PM EST TH Visit (TeleHealth) [place] [address] Roxana Webb MD [facility] [place] [address] documented as of this encounter Visit Diagnoses Not on filedocumented in this encounter Care Teams Brownell Operator Relationship Specialty Start Date End Date Kasey Rader MD [address] [place] [address] PCP - General 10/02/10 11/22/12 documented as of this encounter
--- OUTSIDE RECORDS SUMMARY | 2024-08-15 12:12 | XMS_ITS | Encounter Summary ---
Author Organization [facility] Address [address] [place] [address] Care Team Providers Care Lining Marker Name Role Phone Cayla Yeager Odette HOFF Primary Care Provider [phone] [phone] Encounter Details Date Type Department Care Team (Latest Contact Info) Description 01/06/2010 10:01 EDT - 01/06/2010 23:59 EDT Hospital Encounter [facility] [address] [place] [address] Opal Thapa MD [address] [place] [phone] Discharge Disposition: Home or Self Care Social [...] Code Departure Means Destination Home or Self Alf documented in this encounter Plan of Treatment [...] 10:05 EDT Opal Thapa MD IMMUNOLOGY AND SEROLOGY [place] Final Result [facility] [address] [place] [address] * VITAMIN B12 (01/06/2010 10:04 EDT) Vitamin B-12 534 211 - 911 pg/ml [facility] Blood specimen (specimen) 01/06/2010 10:04 EDT 01/06/2010 10:05 EDT Opal Thapa MD CHEMISTRY & BLOOD GAS ORDERA BLES Final Result Performing Organization Address [facility] de Phone Number [facility] [address] [place] [address] * FOLATE (01/06/2010 10:04 EDT) Pathologist [facility] Folate 15.2 ng/mL [facility] Comment: Deficient: ??Less than 3.4 ng/mL Indeterminate: ??3.4-5.4 ng/mL Normal: ??Greater than 5.4 ng/mL Blood specimen (specimen) 01/06/2010 10:04 EDT 01/06/2010 10:05 EDT Opal Thapa MD CHEMISTRY & BLOOD GAS ORDERA BLES Final Result Performing Organization Address [facility] de Phone Number [facility] [address] [place] [address] * ANTI NUCLEAR ANTIBODY (01/06/2010 10:04 EDT) [facility] Anti Nuclear Ab Positive at 40 dils, titer to follow. 0 - 40 Dils [facility] Blood specimen (specimen) 01/06/2010 10:04 EDT 01/06/2010 10:05 EDT Opal Thapa MD IMMUNOLOGY AND SEROLOGY [place] Final Result Performing Organization Address [facility] de Phone Number [facility] [address] [place] [address] * (ABNORMAL) COMPREHENSIVE METABOLIC PANEL (01/06/2010 10:04 EDT) Pathologist [facility] Potassium 4.3 3.5 - 5.0 mEq/L [facility] Sodium 144 136 - 145 mEq/L [facility] Chloride 107 96 - 110 mEq/L [facility] CO2 26 24 - 32 mEq/L [facility] Total Alkaline Phosphatase 60 38 - 126 U/L [facility] Bilirubin, Total <0.5 0.2 - [...] 100 mg/dl [facility] Fasting? Yes [facility] Blood specimen (specimen) 01/06/2010 10:04 EDT 01/06/2010 10:05 EDT Opal Thapa MD CHEMISTRY & BLOOD GAS ORDERA BLES Final Result Performing Organization Address [facility] Co de Phone Number [facility] [address] [place] [address] * LYME AB (01/06/2010 10:04 EDT) Pathologist [facility] Lyme AB Interpretatio n: Negative Reference Range: Negative [facility] Blood specimen (specimen) 01/06/2010 10:04 EDT 01/06/2010 10:05 EDT Opal Thapa MD IMMUNOLOGY AND SEROLOGY ORDHeber RABHORTENSIA Final Result Performing Organization Address [facility] Co de Phone Number [facility] [address] [place] [address] * HEMAGRAM AND DIFFERENTIAL (01/06/2010 10:04 EDT) Pathologist [facility] WBC 8.11 4.0 - 12.4 K/cmm [facility] [...] [facility] Blood specimen (specimen) 01/06/2010 10:04 EDT 01/06/2010 10:05 EDT us Opal Thapa MD PACKAGES & DNA PROBE ORDERAB LES Final Result [facility] [address] [place] [address] documented in this encounter Visit Diagnoses Not on filedocumented in this encounter Care Teams Lining Marker Relationship Specialty Start Date End Date Cayla Yeager FNP [address] [place] [address] PCP - General 05/30/09 documented as of this encounter
--- OUTSIDE RECORDS SUMMARY | 2024-08-15 12:12 | XMS_ITS | Encounter Summary ---
Author Organization [facility] Address [address] [place] [address] Care Team Providers Care Pipe Bowl Paint Trimmer Name Role Phone Cayla Yeager KAVYA Primary Care Provider [phone] Encounter Details Date Type Department Care Team (Latest Contact Info) Description 10/09/2009 15:43 EST - 10/09/2009 23:[address] [facility] Interventional Pain [address] [place], [place] [id number] Unknown, [place], [place] [address] [place] [address] Negrito Gonzalez MD [address] [phone] Discharge Disposition: Auto Discharge Social History Tobacco [...] MD - Job ID: SM Doc ID: [id number] Ext Doc ID: [id number] cc: RICHARD Cornejo MD documented in this encounter Care Teams Pipe Bowl Paint Trimmer Relationship Specialty Start Date End Date Cayla Yeager FNP [address] [place] [address] PCP - General 05/30/09 documented as of this encounter
--- OUTSIDE RECORDS SUMMARY | 2024-08-15 12:12 | XMS_ITS | Encounter Summary ---
Author Organization [facility] Address [address] [place] [address] Care Team Providers Care Manager Integration Name Role Phone Cayla Yeager Odette HOFF Primary Care Provider [phone] Encounter Details Date Type Department Care Team (Late st Contact Info) Description 08/24/2009 9:50 EST - 08/24/2009 23:59 [facility] Hospital Encounter [facility] [address] [place] [address] Ayo Webb MD [address] [facility], [address] [place] [phone] Discharge Disposition: Auto Discharge Social History Tobacco [...] filedocumented in this encounter Care Teams Manager Integration Relationship Specialty Start Date End Date Cayla Yeager FNP [address] [place] [address] PCP - General 05/30/09 documented as of this encounter
--- OUTSIDE RECORDS SUMMARY | 2024-08-15 12:12 | XMS_ITS | Encounter Summary ---
Author Organization [facility] Address [facility] [place] [address] Care Team Providers Care Branch Chief Name Role Phone Cayla Yeager APRN Primary Care Provider + Encounter Details Date Type Department Care Team (Latest Contact Info) Description 09/17/2010 7:34 AM EST - 09/17/2010 1:00 PM EST Hospital En[place] [address] Rigoberto Reid MD [facility] [address] GASTRO[place] [address] Discharge Disposition: Home Social History Tobacco Use [...] PM EST TH Visit (TeleHealth) [place] [phone] Roxana Webb MD [facility] [place] [address] documented as of this encounter Visit Diagnoses Not on filedocumented in this encounter Care Teams Branch Chief Relationship Specialty Start Date End Date Cayla Yeager APRN [address] [place] [address] PCP - General 08/28/10 10/01/10 documented as of this encounter
--- OUTSIDE RECORDS SUMMARY | 2024-08-15 12:12 | XMS_ITS | Encounter Summary ---
Author Organization [facility] [place] [address] Care Team Providers Care Flexographic Press Helper Name Role Phone Kasey Rader MD Primary Care Provider [phone] Encounter Details Date Type Department Care Team (Latest Contact Info) Description 09/04/2012 1:40 PM EST - 09/04/2012 5:35 PM EST Hospital Encounter [place] [address] Vianney Wolf MD [facility] [place] [address] Discharge Disposition: Home Social History Tobacco Use [...] GI ENDOSCOPY: WHAT TO EXPECT AT HOME (CHILEAN) documented in this encounter Medications at Time [...] Has since had some revisional surgery in [place] to her fundoplication. I have no info [...] PM EST TH Visit (TeleHealth) [place] [address] Roxana Webb MD [facility] [place] [address] documented as of this encounter Procedures Procedure [...] 6:20 PM EST) Surgical Pathology Report ? [facility] ? Provider: ?? VIANNEY WOLF ??Pt. Name: ?? MEAGAN BOLANOS ? Acc #: ?[id number] ?Pt. ? Col Date: ?? 09/04/2012 ?/Sex: [...] Wolf MD PATHOLOGY/CYTOLOGY ORDERABLES Performing Organization Address [facility] de Phone Number CERIVAN BUSTAMANTEIUM * Specimen to Pathology (surgical or derm) (09/04/2012 4:02 PM EST) AP Specimen 09/04/2012 4:02 PM EST 09/04/2012 4:02 PM EST Narrative CERNER MILLENNIUM - 09/04/2012 4:02 PM EST Specimen requisition ordered. ??Separate Pathology report to follow Vianney Wolf MD PATHOLOGY/CYTOLOGY ORDERABLES Performing Organization Address [facility] Co de Phone Number EUGENE CAUSEYP[employer] GroupIUM * UPPER GI ENDOSCOPY (09/04/2012 3:37 PM EST) Pathologist [facility] UPPER GI ENDOSCOPY [facility] Endoscopy Patient Name: Meagan Bolanos ? Procedure Date: 09/04/2012 3:37 PM ? Date of : 1975 ? Age: 37 ? Order #: [id number] ? Procedure: ? Upper GI endoscopy Indications: ? Epigastric abdominal pain, Assessment ? following Magdaleno fundoplication Providers: ? Vianney Wolf MD, Alexandra ? CHELO Taylor, Camille López, ? Cisco Consultant Referring : ?Kasey Rader MD Medicines: ? Midazolam 4 [...] (New Bag - Prov ider: Blanche Gonzalez, CHELO)1700 (Stopped - Provider: Niraj Kearns RN) PRN Medication Order 09/02/2012 09/03/2012 09/04/2012 fentaNYL 50mcg/mL injection (CANCELED) ONCE PRN, Starting on Fri09/04/12 at 1547, Until Fri09/04/12 at 1936, Pain, Intra-Operative (Intra-Procedure), Routine 1547 (Given - Provid er: Alexandra Taylor RN)1551 (Given - Provider: Alexandra Taylor RN)1554 (Given - Provider: Alexandra Taylor RN) midazolam (VERSED) injection (CANCELED) ONCE PRN, Starting on Fri09/04/12 at 1547, Until Fri09/04/12 at 1936, Sleep, Intra-Operative (Intra-Procedure), Routine 1547 (Given - Provid er: Alexandra Taylor RN)1549 (Given - Provider: Alexandra Taylor RN)1550 (Given - Provider: Alexandra Taylor RN)1554 (Given - Provider: Alexandra Taylor RN) documented in this encounter Care Teams Flexographic Press Helper Relationship Specialty Start Date End Date Kasey Rader MD [address] [place] [address] PCP - General 10/02/10 11/22/12 documented as of this encounter
--- OUTSIDE RECORDS SUMMARY | 2024-08-15 12:12 | XMS_ITS | Encounter Summary ---
Author Organization [facility] Address [address] [place] [address] Care Team Providers Care Mill Hand Plate Mill Name Role Phone Cayla Yeager KAVYA Primary Care Provider [phone] Encounter Details Date Type Department Care Team (Late st Contact Info) Description 02/14/2023 Lab Requisition [facility] - Main [address] [phone] Morris Mchugh MD [address] [place] [phone] Epigastric pain; Family history of malignant [...] explore management options, if applicable. 02/17/2023 16:54 [facility] Final Diagnosis A. DUODENUM, BIOPSY: - [...] with no significant pathologic change. 02/17/2023 16:54 [facility] Diagnosis Comment Specimen F: Deeper level tissue sections were examined on block F1. 02/17/2023 16:54 [facility] Attestation By the signature below, the attending physician certifies that they have 1) personally conducted a gross and/or microscopic examination of the described specimen(s), and/or personally interpreted the results of laboratory testing of the described specimen(s), and 2) personally rendered or confirmed the above diagnosis. 02/17/2023 16:54 [facility] at 1653 Clinical History Hx of anorexia, Queen's esophagus, GERD, globus sensation, epigastric pain, hematochezia, anemia, nausea, pyrosis, status post partial gastrectomy, status post Queen's ablation. 02/17/2023 16:54 [facility] Gross Description A. Received in formalin labeled ? Mora Clair Fecteau? and ? small bowel Bx? are [...] YOLI SYLVESTER 02/14/2023 12:23 02/17/2023 16:54 EDT [facility] Performing Lab [facility] 01/2023 16:54 EDT [facility] Scanned Images 02/17/2023 16:54 EDT [facility] Tissue ENTIRE ILEUM / Unknown [...] Unknown 02/13/2023 7:36 EDT 02/14/2023 7:31 EDT us Morris Mchugh MD PATHOLOGY ORDERABLES Final Result [facility] [address] [place] [address] documented in this encounter Visit Diagnoses Diagnosis Epigastric pain Abdominal pain, epigastric Family history of malignant neoplasm of digestive organs Melena Blood in stool Acquired absence of stomach (part of) documented in this encounter Care Teams Mill Hand Plate Mill Relationship Specialty Start Date End Date Cayla Yeager FNP [address] [place] [address] PCP - General 05/30/09 documented as of this encounter
--- OUTSIDE RECORDS SUMMARY | 2024-08-15 12:12 | XMS_ITS | Clinical Summary ---
Author Organization [facility] Address [address] [place] [address] Care Team Providers Care Loss Prevention Operations Manager Name Role Phone Cayla Yeager CUSTODIAN SUPERVISOR Primary Care Provider [phone] Allergies Active Allergy Reactions Criticality Noted Date [...] - 19+ 3-dose series) 06/08 COVID-19 Vaccine (2023- season) 2024 Insurance [employer] Care Teams Loss Prevention Operations Manager Relationship Specialty Start Date End Date Cayla Yeager FNP [address] [place] [address] PCP - General 05/30/09
--- OUTSIDE RECORDS SUMMARY | 2024-08-15 12:12 | XMS_ITS | Encounter Summary ---
Author Organization [facility] Address [address] [place] [address] Care Team Providers Care Flat Locker Name Role Phone Cayla Yeager Primary Care Provider [phone] [phone] Encounter Details Date Type Department Care Team (Latest Contact Info) Description 11/13/2009 17:05 EST - 11/13/2009 23:59 EST Hospital Encounter [address] [place] [address] Cayla Yeager, KAVYA [address] [place], [place] [address] Discharge Disposition: Home or Self Care Social [...] Code Departure Means Destination Home or Self Long Term documented in this encounter Plan of Treatment [...] or absence of malignant disease. Assayed utilizing [employer] technology. Values obtained by using different assay methods cannot be used interchangeably. [phone] 11/13/2009 17:2 0 EST 11/13/2009 17:22 EST Cayla HOFF CHEMISTRY & BLOOD GAS ORD ERABLES Final Result [facility] [address] [place] [address] documented in this encounter Visit Diagnoses Not on filedocumented in this encounter Care Teams Flat Locker Relationship Specialty Start Date End Date Cayla Yeager FNP [address] [place] [address] PCP - General 05/30/09 documented as of this encounter
--- OUTSIDE RECORDS SUMMARY | 2024-08-15 12:12 | XMS_ITS | Encounter Summary ---
Author Organization [facility] Address [address] [place] [address] Care Team Providers Care Lead Network Architect Name Role Phone Cayla Yeager KAVYA Primary Care Provider [phone] [phone] Encounter Details Date Type Department Care Team (Late st Contact Info) Description 08/16/[address] [facility] - [address] [phone] Misa Haywood MD Social History Tobacco Use [...] AND PELVIS W CONTRAST 08/16/2009 14:39 EST INTERNET TECHNOLOGY MANAGER US PELVIS TRANSVAGINAL 08/16/2009 11:33 EST documented [...] 2. Status post hysterectomy. Ihsan Olmos MD [facility] ORDERABLES Final Result * INTERNET TECHNOLOGY MANAGER US PELVIS TRANSVAGINAL (08/16/2009 11:33 EST) Anatomical [...] Dr. Olmos. ?? D: ??08/16/2009 T: ??08/16/2009 /dw Procedure Note 08/23/2009 INDICATION: This 34-year-old had [...] PLAN: Follow up with Dr. Olmos. /ayush us Misa Haywood MD IMG INTERNET TECHNOLOGY MANAGER ORDERABLES Final Re sult documented in this encounter Visit Diagnoses Not on filedocumented in this encounter Care Teams Lead Network Architect Relationship Specialty Start Date End Date Cayla Yeager FNP [address] [place] [address] PCP - General 05/30/09 documented as of this encounter
--- OUTSIDE RECORDS SUMMARY | 2024-08-15 12:12 | XMS_ITS | Encounter Summary ---
Author Organization [facility] Address [facility] [place] [address] Care Team Providers Care Human Resources Operations Coordinator Name Role Phone Kasey Rader MD Primary Care Provider [phone] Encounter Details Date Type Department Care Team (Late st Contact Info) Description 10/18/2010 11:00 AM EST Office [place] [address] Sheridan Cassidy MD [facility] [place] [address] Discharge Disposition: Home Social History Tobacco Use [...] PM EST TH Visit (TeleHealth) [place] [address] Roxana Webb MD [facility] [place] [address] documented as of this encounter Visit Diagnoses Not on filedocumented in this encounter Care Teams Human Resources Operations Coordinator Relationship Specialty Start Date End Date Kasey Rader MD [address] [place] [address] PCP - General 10/02/10 11/22/12 documented as of this encounter
--- OUTSIDE RECORDS SUMMARY | 2024-08-15 12:12 | XMS_ITS | Encounter Summary ---
Author Organization [facility] [place] [address] Care Team Providers Care Machinist Linotype Name Role Phone Cayla Yeager APRN Primary Care Provider + Encounter Details Date Type Department Care Team (Late st Contact Info) Description 09/17/2010 9:00 AM EST Procedure [place] [address] Patti Plunkett, RN Social History Tobacco Use Types [...] PM EST TH Visit (TeleHealth) [place] [address] Roxana Webb MD [facility] [place] [address] documented as of this encounter Visit Diagnoses Not on filedocumented in this encounter Care Teams Machinist Linotype Relationship Specialty Start Date End Date Cayla Yeager APRN [address] [place] [address] PCP - General 08/28/10 10/01/10 documented as of this encounter
--- OUTSIDE RECORDS SUMMARY | 2024-08-15 12:12 | XMS_ITS | Encounter Summary ---
Author Organization [facility] Address [address] [place] [address] Care Team Providers Care Channel Opener Outsoles Name Role Phone Cayla Yeager Odette HOFF Primary Care Provider [phone] [phone] Encounter Details Date Type Department Care Team (Late st Contact Info) Description 10/31/2021 Lab Requisition [facility] Pathology & Laboratory Medicine - [address] [address] [address] [place] [address] [place] [phone] Encounter for other general examination Social History [...] explore management options, if applicable. 11/02/2021 13:08 [facility] Final Diagnosis A. SKIN OF LABIA MINORA, RIGHT, EXCISION: - Mucinous cyst. 11/02/2021 13:08 [facility] Attestation By the signature below, the attending physician certifies that they have 1) personally conducted a gross and/or microscopic examination of the described specimen(s), and/or personally interpreted the results of laboratory testing of the described specimen(s), and 2) personally rendered or confirmed the above diagnosis. 11/02/2021 13:08 [facility] at 1308 Clinical History R labial cyst 11/02/2021 13:08 [facility] Gross Description A. Received in formalin labelled with proper patient identification (initials F, P) and right labial cyst is a 1.4 x 0.8 x 0.7 cm ovoid portion of dukes soft tissue. The outer surface is inked. Sectioning reveals a smooth-walled cyst filled with somewhat mucinous dukes material. No firm areas or excrescences are identified. Two artist representative sections are submitted in A1. RICHARD MITCHELL(ASCP) 11/01/2021 8:11 11/02/2021 13:08 [facility] Performing Lab [facility] 11/02/2021 13:08 [facility] Scanned Images 11/02/2021 13:08 [facility] Tissue STRUCTURE OF RIGHT LABIUM MINUS / Unknown 10/31/2021 9:21 EST 10/31/2021 17:33 EST [address] PATHOLOGY ORDERABLES Final Resul t [facility] [address] [place] [address] documented in this encounter Visit Diagnoses Diagnosis Encounter for other general examination documented in this encounter Care Teams Channel Opener Outsoles Relationship Specialty Start Date End Date Cayla Yeager FNP [address] [place] [address] PCP - General 05/30/09 documented as of this encounter
--- OUTSIDE RECORDS SUMMARY | 2024-08-15 12:12 | XMS_ITS | Encounter Summary ---
Author Organization [facility] Address [address] [place] [address] Care Team Providers Care Air Pollution Inspector Name Role Phone Cayla Yeager KAVYA Primary Care Provider [phone] Encounter Details Date Type Department Care Team (Late st Contact Info) Description 08/14/2022 Lab Requisition [facility] Pathology & Laboratory Medicine - [address] [phone] Outr Resulting Lab, Provider Social History Tobacco [...] Lyme Ab Negative Negative 08/15/2022 10:24 EST [facility] Blood VENOUS BLOOD / Unknown 08/13/2022 12:34 EST 08/14/2022 16:47 EST us Provider Outr Resulting Lab IMMUNOLOGY AND SEROL OGY ORDERABLES Final Result Performing Organization Address [facility] de Phone Number [facility] [address] [place] [address] * (ABNORMAL) ANTI NUCLEAR AB (NIKOLE), IFA (08/13/2022 12:34 EST) NIKOLE Interpretation Positive(A) Negative 08/15/2022 14:31 EST [facility] Comment: For titers greater than [...] Pattern 1 1:320 Speckled 08/15/2022 14:31 EST [facility] Blood VENOUS BLOOD / Unknown 08/13/2022 12:34 EST 08/14/2022 16:47 EST Narrative [facility] - 08/15/2022 14:31 EST Results were obtained with the INOVA NOVA Lite HEp-2 NIKOEL Kit by indirect immunofluorescence. us Provider Outr Resulting Lab IMMUNOLOGY AND SEROL OGY ORDERABLES Final Result Performing Organization Address [facility] Co de Phone Number [facility] [address] [place] [address] * CCP ANTIBODIES (08/13/2022 12:34 EST) CCP Antibodies <2.5 <5.0 U/mL 08/15/2022 10:32 EST [facility] Blood VENOUS BLOOD / Unknown 08/13/2022 12:34 EST 08/14/2022 16:47 EST us Provider Outr Resulting Lab IMMUNOLOGY AND SEROL OGY ORDERABLES Final Result [facility] [address] [place] [address] documented in this encounter Visit Diagnoses Not on filedocumented in this encounter Care Teams Air Pollution Inspector Relationship Specialty Start Date End Date Cayla Yeager FNP [address] [place] [address] PCP - General 05/30/09 documented as of this encounter
--- OUTSIDE RECORDS SUMMARY | 2024-08-15 12:12 | XMS_ITS | Encounter Summary ---
Author Organization [facility] Address [facility] [place] [address] Care Team Providers Care Immunology Teacher Name Role Phone Kasey Rader MD Primary Care Provider Encounter Details Date Type Department Care Team (Latest Contact Info) Description 10/09/2010 9:53 AM EST - 10/10/2010 7:28 PM EST Hospital Encounter [place] [phone] Sheridan Cassidy MD [facility] [place] [address] Discharge Disposition: Home Social History Tobacco Use [...] PM EST TH Visit (TeleHealth) [place] [phone] Roxana Webb MD [facility] [place] [address] documented as of this encounter Visit Diagnoses Not on filedocumented in this encounter Active and Recently Administered Medications Care Teams Immunology Teacher Relationship Specialty Start Date End Date Kasey Rader MD [address] [place] [address] PCP - General 10/02/10 11/22/12 documented as of this encounter
--- OUTSIDE RECORDS SUMMARY | 2024-08-15 12:12 | XMS_ITS | Encounter Summary ---
Author Organization [facility] [place] [address] Care Team Providers Care It Administrator Name Role Phone Cayla Yeager LOUIE Primary Care Provider + Encounter Details Date Type Department Care Team (Late st Contact Info) Description 09/27/2010 2:00 PM EST Office Visit [place] [phone] Yovana Herzog APRN [facility] [place] [address] Rigoberto Reid MD [facility] [place] [address] Discharge Disposition: Home Social History Tobacco Use [...] PM EST TH Visit (TeleHealth) [place] [phone] Roxana Webb MD [facility] [place] [address] documented as of this encounter Visit Diagnoses Not on filedocumented in this encounter Care Teams It Administrator Relationship Specialty Start Date End Date Cayla Yeager APRN [address] [place] [address] PCP - General 08/28/10 10/01/10 documented as of this encounter
--- OUTSIDE RECORDS SUMMARY | 2024-08-15 12:12 | XMS_ITS | Encounter Summary ---
Author Organization [facility] [place] [address] Care Team Providers Care Cmm Inspector Name Role Phone Cayla Yeager APRN Primary Care Provider + Encounter Details Date Type Department Care Team (Late st Contact Info) Description 09/27/2010 4:30 PM EST Office [place] [phone] Mary Grace Ortega APRN [facility] [place] [address] Discharge Disposition: Home Social History Tobacco Use [...] PM EST TH Visit (TeleHealth) [place] [phone] Roxana Webb MD [facility] [place] [address] documented as of this encounter Visit Diagnoses Not on filedocumented in this encounter Care Teams Cmm Inspector Relationship Specialty Start Date End Date Cayla Yeager APRN [address] [place] [address] PCP - General 08/28/10 10/01/10 documented as of this encounter
--- OUTSIDE RECORDS SUMMARY | 2024-08-15 12:12 | XMS_ITS | Encounter Summary ---
Author Organization [facility] [place] [address] Care Team Providers Care Dining Room Tables Set Up Attendant Name Role Phone Cayla Yeager APRN Primary Care Provider + Encounter Details Date Type Department Care Team (Latest Contact Info) Description 09/17/2010 8:00 AM EST Procedure [place] [phone] CLINIC, Patti Ahn, bed bug exterminator Disposition: Home Social History Tobacco Use Types [...] PM EST TH Visit (TeleHealth) [place] [address] Roxana Webb MD [facility] [place] [address] documented as of this encounter Visit Diagnoses Not on filedocumented in this encounter Care Teams Dining Room Tables Set Up Attendant Relationship Specialty Start Date End Date Cayla Yeager APRN [address] [place] [address] PCP - General 08/28/10 10/01/10 documented as of this encounter
--- OUTSIDE RECORDS SUMMARY | 2024-08-15 12:12 | XMS_ITS | Encounter Summary ---
Author Organization [facility] Address [address] [place] [address] Care Team Providers Care Dry Mill Operator Name Role Phone Cayla Yeager Primary Care Provider +1 -[phone] Encounter Details Date Type Department Care Team (Late st Contact Info) Description 10/27/2009 Abstract [facility] - [facility] [address] [place], [place] [phone] Cayla Yeager FNP [address] [place], [place] [phone] Endometriosis of other specified sites; Nausea alone [...] alone documented in this encounter Care Teams Dry Mill Operator Relationship Specialty Start Date End Date Cayla Yeager FNP [address] [place], [place] [phone] PCP - General 05/30/09 documented as of this encounter
--- OUTSIDE RECORDS SUMMARY | 2024-08-15 12:12 | XMS_ITS | Encounter Summary ---
Author Organization [facility] Address [address] [place] [address] Care Team Providers Care Information Technology Consultant Name Role Phone Cayla Yeager KAVYA Primary Care Provider +1 -[phone] Encounter Details Date Type Department Care Team (Latest Contact Info) Description 09/21/2009 15:50 EST - 09/21/2009 23:59 EST Hospital Encounter [facility] [place] [address] Kasey Rader MD [address] [place] [phone] Discharge Disposition: Home or Self Care [...] Code Departure Means Destination Home or Self Nursing Home documented in this encounter Plan of Treatment Not on file documented as of this encounter Visit Diagnoses Not on filedocumented in this encounter Care Teams Information Technology Consultant Relationship Specialty Start Date End Date Cayla Yeager FNP [address] [place] [address] PCP - General 05/30/09 documented as of this encounter
--- OUTSIDE RECORDS SUMMARY | 2024-08-15 12:12 | XMS_ITS | Encounter Summary ---
Author Organization [facility] Address [address] [place] [address] Care Team Providers Care Director Corporate Security Name Role Phone Cayla Yeager KAVYA Primary Care Provider +1 [phone] Encounter Details Date Type Department Care Team (Latest Contact Info) Description 01/11/2010 15:53 EDT - 01/11/2010 23:59 EDT Hospital Encounter [facility] - [facility] [place] [address] [place] [address] Opal Thapa MD [address] [place] [phone] Discharge Disposition: Auto Discharge Social History Tobacco [...] on filedocumented in this encounter Care Teams Director Corporate Security Relationship Specialty Start Date End Date Cayla Yeager FNP [address] [place] [address] PCP - General 05/30/09 documented as of this encounter
--- OUTSIDE RECORDS SUMMARY | 2024-08-15 12:12 | XMS_ITS | Encounter Summary ---
Author Organization [facility] Address [address] [place] [address] Care Team Providers Care Staff Scientist Name Role Phone Cayla Yeager [facility] Primary Care Provider +1 [phone] Reason for Visit * Reason Onset Date Comments Medications Refill 01/15/2021 Encounter Details Date Type Department Care Team (Late st Contact Info) Description 01/15/2021 Refill [facility] Adult Primary Care - [address] [address] Patti Ford RN Medications Refill Social History Tobacco Use Types [...] on filedocumented in this encounter Care Teams Staff Scientist Relationship Specialty Start Date End Date Cayla Yeager FNP [address] [place], [place] [address] PCP - General 05/30/09 documented as of this encounter
--- OUTSIDE RECORDS SUMMARY | 2024-08-15 12:12 | XMS_ITS | Encounter Summary ---
Author Organization [facility] Address [address] [place] [address] Care Team Providers Care Contracts Attorney Name Role Phone Cayla Yeager PAPER CUP MACHINE TENDER Primary Care Provider +1 -[phone] Reason for Visit * Reason Comments Abdominal [...] 15:24 EST - 09/25/2009 17:55 EST Emergency [facility] Emergency Department - [facility] [address] [place] [address] Maj Bajwa MD [address] [place] [phone] Emergency, MD Efren Abdominal pain; Visual [...] consider neurology evaluation for possible migraine. [facility] Patient Instructions Abdominal Pain: After [...] Where can you learn more? Go to www.[employer].net/fahc Enter D163 in the search box to learn more about Abdominal Pain: After Your Visit to the EmergencyRoom. ?? 2005 - 2008 [employer]. Care instructions adapted under license by [facility], [facility] . This care instruction is for use with your licensed healthcare professional. If you have questions about a medical condition or this instruction, always ask your healthcare professional. [employer] disclaims any warranty or liability for your [...] her Percocet starter pack, returned to the [facility]. * Krystyna Conley RN - 09/25/2009 1643 [...] flexion extension: MRI and MRA normal at [facility] Stable in ED, counselled re need for [...] may reflect changes made after this encounter. PEG 3350-Electrolytes (MIRALAX) 17 gram packet Take [...] RN) documented in this encounter Care Teams Contracts Attorney Relationship Specialty Start Date End Date Cayla Yeager FNP [address] [place] [address] PCP - General 05/30/09 documented as of this encounter
--- OUTSIDE RECORDS SUMMARY | 2024-08-15 12:12 | XMS_ITS | Encounter Summary ---
Author Organization [facility] Address [facility] [place] [address] Care Team Providers Care Sofa Cover Inspector Name Role Phone Cayla Yeager APRN Primary Care Provider + Encounter Details Date Type Department Care Team (Latest Contact Info) Description 08/28/2010 9:30 AM EST Initial consult [place] [address] Rigoberto Reid MD [facility] [place] [address] Discharge Disposition: Home Social History Tobacco Use [...] PM EST TH Visit (TeleHealth) [place] [address] Roxana Webb MD [facility] [place] [address] documented as of this encounter Visit Diagnoses Not on filedocumented in this encounter Care Teams Sofa Cover Inspector Relationship Specialty Start Date End Date Cayla Yeager APRN [address] [place] [address] PCP - General 08/28/10 10/01/10 documented as of this encounter
--- OUTSIDE RECORDS SUMMARY | 2024-08-15 12:12 | XMS_ITS | Encounter Summary ---
Author Organization [facility] [place] [address] Care Team Providers Care Braddisher Name Role Phone Cayla Yeager APRN Primary Care Provider + Encounter Details Date Type Department Care Team (Late st Contact Info) Description 09/17/2010 10:30 AM EST Procedure [place] [address] Rigoberto Reid MD [facility] DR GASTROENTEROLOG[place] [address] Social History Tobacco Use Types Packs/Day Years [...] PM EST TH Visit (TeleHealth) [place] [address] Roxana Webb MD [facility] [place] [address] documented as of this encounter Visit Diagnoses Not on filedocumented in this encounter Care Teams Braddisher Relationship Specialty Start Date End Date Cayla Yeager APRN [address] [place] [address] PCP - General 08/28/10 10/01/10 documented as of this encounter
--- OUTSIDE RECORDS SUMMARY | 2024-08-15 12:13 | XMS_ITS | Encounter Summary ---
Author Organization [facility] Address [address] [place] [address] Care Team Providers Care Technical Service Rep Name Role Phone Unavailable Primary Care Provider Unavailabl e Encounter Details Date Type Department Care Team (Latest Contact Info) Description 09/10/2007 14:05 EST Hospital Encounter [facility] - [address] [address] Franky Feliz MD [address] [facility] [address] [place] [address] Discharge Disposition: Auto Discharge Social History Tobacco Use Types Packs/Day Years Used Date Smoking Tobacco: Never Assessed Comments Unknown Sex and Gender Information Value [...]
--- OUTSIDE RECORDS SUMMARY | 2024-08-15 12:13 | XMS_ITS | Encounter Summary ---
Author Organization [facility] Address [address] [place] [address] Care Team Providers Care Manager Community Name Role Phone Unavailable Primary Care Provider Unavailabl e Encounter Details Date Type Department Care Team (Late st Contact Info) Description 04/10/2000 7:39 EDT Hospital Encounter [facility] - Other [address] [place] [address] Garry Toussaint MD [address] [facility], [facility] [address] [place] [phone] Unknown, Provider, Social History Tobacco Use Types [...] EDT Garry Toussaint MD HEMATOLOGY & PF4 ORDERABL ES Final Result Performing Organization Address [facility] de Phone Number [facility] [address] [place] [address] * PROTIME (04/10/2000 10:49 EDT) Pro Time 12.4 11.7 - 13.4 secs [facility] I.N.R. 1.0 0.8 - 1.2 Ratio [facility] Comment: Moderate Intensity Coumadin INR = 2.0-3.0 Adjustments in anticoagulant therapy dose should be based upon the INR and NOT the Pro Time 04/10/2000 10:4 9 EDT 04/10/2000 10:50 EDT Garry Toussaint MD HEMATOLOGY & PF4 ORDERABL ES Final Result Performing Organization Address [facility] de Phone Number [facility] [address] [place] [address] * HEMAGRAM & DIFF (04/10/2000 10:49 EDT) WBC 8.19 4.0 - 12.4 K/cmm [facility] RBC 4.89 3.86 - 5.04 M/cmm [facility] Hemoglobin 14.3 11.6 - 15.2 gm/dl [facility] HCT 40.3 34.9 - 44.4 % [facility] MCV 82 81 - 98 fl [facility] MCH 29.3 26.7 - 33.3 pg [facility] MCHC 35.5 32.1 - 35.9 gm/dl [facility] PLT 241 141 - 320 K/cmm [facility] RDW-CV 12.4 11.7 - 14.6 % [facility] % Neutrophils 56.8 45.5 - 79.7 [...] 04/10/2000 10:4 9 EDT 04/10/2000 10:50 EDT us Garyr Toussaint MD HISTORICAL LAB FOR SQ KB D Final Result [facility] [address] [place] [address] documented in this encounter Visit Diagnoses Not on filedocumented in this encounter
--- OUTSIDE RECORDS SUMMARY | 2024-08-15 12:13 | XMS_ITS | Encounter Summary ---
Author Organization [facility] Address [address] [place] [address] Care Team Providers Care Lpn Private Duty Name Role Phone Unavailable Primary Care Provider Unavailabl e Encounter Details Date Type Department Care Team (Latest Contact Info) Description 11/26/2007 16:31 EDT Hospital Encounter [address] [address] Kannan Banks MD [address] [place] [phone] Discharge Disposition: Auto Discharge Social History Tobacco [...] pain over distal radius snuffbox aarti limon wicc [id number] Comparison: None Findings: Three views of [...] Kannan Banks MD IMG DIAGNOSTIC IMAGING ORDERABLES Final Result * WRIST 3 OR MORE VIEWS (11/26/2007 [...] over distal radius snuffbox aarti ashly wi [id number] ANKLE 3 OR MORE VIEWS, right wrist 4 views Nov 26, 2007 5:16:00 PM Clinical history: fall on ice this am inversion injury pain over right fibula/lat malleolus left wrist pain over distal radius snuffbox aarti ashly wi [id number] Comparison: None Findings: Three views of the right ankle show normal osseous structures and alignment without signs of fracture. Four views of the right wrist show normal osseous structures and alignment without signs of fracture. Kannan Banks MD IMG DIAGNOSTIC IMAGING ORDERABLES Final Result documented in this encounter Visit Diagnoses Not on filedocumented in this encounter
--- OUTSIDE RECORDS SUMMARY | 2024-08-15 12:13 | XMS_ITS | Encounter Summary ---
Author Organization [facility] Address [address] [place] [address] Care Team Providers Care Rcis Name Role Phone Cayla Yeager KAVYA Primary Care Provider +1 -[phone] Reason for Visit * Reason Comments Abdominal [...] 11:03 EST - 08/06/2009 14:55 EST Emergency [facility] Emergency Department - [facility] [address] [place] [address] Dinesh Jorge MD Emergency, MD Efren Abdominal [...] their urgent list. When you call the research center partner clinic [phone]) ask to be seen in [...] Refills Last Filled Start Date End Date oxycodone-acetamino phen (PERCOCET) 5-325 mg per tablet Take 1 [...] relieves the symptoms. Has complicated GI and Clinical Research Manager issues (endometriosis) usually followed at [facility], here years ago. Review of Systems Constitutional: [...] Old records reviewed. Discussed with GI and FULL DECATOR OPERATOR: both will see her. Discharge Prescriptions New [...] Dinesh Jorge MD LAB INFO SERVICE AND SUPP ORT & PHONE RESULT Final Result Performing Organization Address [facility]/ZIP Co de Phone Number [facility] [address] [place] [address] * HOLD BLUE TOP (08/06/2009 12:06 EST) Hold Blue Top Sample for coagulation will be discarded after 4 hours [facility] Blood specimen (specimen) 08/06/2009 12:06 EST 08/06/2009 12:15 EST us Dinesh Jorge MD LAB INFO SERVICE AND SUPP ORT & PHONE RESULT Final Result Performing Organization Address [facility] de Phone Number [facility] [address] [place] [address] * HEMAGRAM AND DIFFERENTIAL (08/06/2009 11:58 EST) [...] Lymphocytes 28.9 15.0 - 46.8 % [facility] Monocytes 6.6 1.8 - 12.0 % [facility] Eosinophils 1.2 0.6 - 6.9 % [...] [facility] Type of Diff: Automated [facility] Blood specimen (specimen) 08/06/2009 11:58 EST 08/06/2009 12:15 EST Dinesh Jorge MD PACKAGES & DNA PROBE ORDE RABLES Final Result Performing Organization Address [facility] de Phone Number [facility] [address] [place] [address] * LIPASE (08/06/2009 11:58 EST) Lipase 176 0 - 250 U/L [facility] Blood specimen (specimen) 08/06/2009 11:58 EST 08/06/2009 12:15 EST us Dinesh Jorge MD CHEMISTRY & BLOOD GAS ORD ERABLES Final Result Performing Organization Address [facility] de Phone Number [facility] [address] [place] [address] * C-REACTIVE PROTEIN (08/06/2009 11:58 EST) C-Reactive Protein <0.7 <1.0 mg/dl [facility] Blood specimen (specimen) 08/06/2009 11:58 EST 08/06/2009 12:15 EST Dinesh Jorge MD CHEMISTRY & BLOOD GAS ORD ERABLES Final Result Performing Organization Address [facility] Co de Phone Number [facility] [address] [place] [address] documented in this encounter Visit Diagnoses Diagnosis [...] may reflect changes made after this encounter. acetaminophen (TYLENOL) 500 mg tablet Take 2 [...] 08/06/2009 documented in this encounter Care Teams Rcis Relationship Specialty Start Date End Date Cayla Yeager FNP [address] [place] [address] PCP - General 05/30/09 documented as of this encounter
--- OUTSIDE RECORDS SUMMARY | 2024-08-15 12:13 | XMS_ITS | Encounter Summary ---
Author Organization [facility] Address [address] [place] [address] Care Team Providers Care Knitting Tester Name Role Phone Unavailable Primary Care Provider Unavailabl e Encounter Details Date Type Department Care Team (Late st Contact Info) Description 05/05/2000 11:37 EDT - 05/05/2000 11:59 EDT Hospital Encounter [facility] [address] [place] [address] Garry Cortés MD [address] [facility], [address] [place] [phone] Discharge Disposition: Auto Discharge Social History Tobacco [...] ? MEAGAN BOLANOS ? Accession #: ? [id number] ? : ? 1975 (Age: 24) ??F [...] specimen is submitted intact as (F). ??(Dr. Reed)/[facility] End of Report [facility] 05/05/2000 05/05/2000 15: 24 EDT us Garry Cortés MD PATHOLOGY ORDERABLES Jennifer carter Result [facility] [address] [place] [address] documented in this encounter Visit Diagnoses Not on filedocumented in this encounter
--- OUTSIDE RECORDS SUMMARY | 2024-08-15 12:13 | XMS_ITS | Encounter Summary ---
Author Organization [facility] Address [address] [place] [address] Care Team Providers Care Pearl Restorer Name Role Phone Cayla Yeager Primary Care Provider +1 -[phone] Encounter Details Date Type Department Care Team (Late st Contact Info) Description 09/10/2007 Before PRISM Converted Visit (Maple) [facility] - Maple conversion [address] [place] [address] Franky Feliz MD [address] [place] [address] Social History Tobacco Use Types [...] obtained from the patient, some notessent from Ms. Yeager, and her [facility] chart. Mrs. 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 There was no eyivic-mq-gtzu or aylw-zi-dmll ataxia. Muscle bulk, tone, and strength were [...] brain done with and without contrast at [facility] on July 30, 2007 was reported to [...] also check an MR angiogram [place] [facility]. Mrs. Bolanos will see me in followup after her testing. If workup is negative, then treatment may need to focus on cervical musculoskeletal pain and cervicogenic headache. Signed by Franky Feliz MD 09/17/2007 10:29 Franky Feliz MD - Franky Feliz MD - REINA Job ID: [id number] Doc ID: [id number] cc: KAVYA Medel - Franky Feliz MD - reina Job ID: [id number] Doc ID: [id number] cc: KAVYA Medel documented in this encounter Plan of Treatment Not on file documented as of this encounter Visit Diagnoses Not on filedocumented in this encounter Care Teams Pearl Restorer Relationship Specialty Start Date End Date Cayla Yeager FNP [address] [place] [address] PCP - General 05/30/09 documented as of this encounter
--- OUTSIDE RECORDS SUMMARY | 2024-08-15 12:13 | XMS_ITS | Encounter Summary ---
Author Organization [facility] Address [address] [place] [address] Care Team Providers Care Pathology Laboratory Technologist Name Role Phone Cayla Yeager KAVYA Primary Care Provider +1 -[phone] Encounter Details Date Type Department Care Team (Late st Contact Info) Description 11/26/2007 Office Visit [facility] - Maple conversion [address] [place] [address] Kannan Banks MD [address] [place] [phone] Social History Tobacco Use Types Packs/Day Years Used Date Smoking Tobacco: Never Assessed Comments Unknown Sex and Gender Information Value Date Recorded Sex Assigned at Not on file Legal Sex Female 17:31 EST Gender Identity Not on file Sexual Orientation Not on file documented as of this encounter Progress Notes * Kannan Banks MD - 11/03/2009 1210 EST [facility] - Physician Summary Registration Date/Time: 11/26/2007 16:37 [...] on filedocumented in this encounter Care Teams Pathology Laboratory Technologist Relationship Specialty Start Date End Date Cayla Yeager FNP [address] [place] [address] PCP - General 05/30/09 documented as of this encounter
--- OUTSIDE RECORDS SUMMARY | 2024-08-15 12:13 | XMS_ITS | Encounter Summary ---
Author Organization [facility] Address [address] [place] [address] Care Team Providers Care Automobile Mechanic Radiator Name Role Phone Unavailable Primary Care Provider Unavailabl e Encounter Details Date Type Department Care Team (Latest Contact Info) Description 10/06/2007 13:02 EST Hospital Encounter [facility] [address] [place] [address] Franky Feliz MD [address] [facility] [address] [place] [id number] Discharge Disposition: Auto Discharge Social History Tobacco [...] and without contrast and MRA of the [place] Indication for Study: Posterior headache, vertigo, visual loss with weak flexion-extension. Brain Technique: Sagittal T1, axial T1, T2, FLAIR, gradient echo, and diffusion-weighted imaging of the brain is obtained. After contrast administration ??axial T1 images are obtained with fat-suppression. MRA [place] Technique: ??3-D time of flight MRA is performed of the [place]. Findings: Examination of the diffusion-weighted sequence demonstrates no acute infarct. On the gradient-echo sequence, no significant susceptibility effect is identified. No parenchymal mass, extra-axial fluid collection, midline shift, or focal mass effect is seen. There is minor ethmoid air cell mucosal thickening noted. With contrast administration, no abnormal enhancement is seen. There is slight nasoseptal deviation to the right noted incidentally. [place] MRA demonstrates no significant stenosis [...] artery. Impression: 1. Unremarkable MRA of the [place]. 2. No MR evidence of intracranial mass lesion or acute infarct. Procedure Note Mau Martinez MD - 03/06/2009 posterior headache, vertigo, vision loss with weak flexion and extension MRI of the brain with and without contrast and MRA of the [place] Indication for Study: Posterior headache, vertigo, visual loss with weak flexion-extension. Brain Technique: Sagittal T1, axial T1, T2, FLAIR, gradient echo, and diffusion-weighted imaging of the brain is obtained. After contrast administration axial T1 images are obtained with fat-suppression. MRA [place] Technique: 3-D time of flight MRA is performed of the [place]. Findings: Examination of the diffusion-weighted sequence demonstrates no acute infarct. On the gradient-echo sequence, no significant susceptibility effect is identified. No parenchymal mass, extra-axial fluid collection, midline shift, or focal mass effect is seen. There is minor ethmoid air cell mucosal thickening noted. With contrast administration, no abnormal enhancement is seen. There is slight nasoseptal deviation to the right noted incidentally. [place] MRA demonstrates no significant stenosis [...] artery. Impression: 1. Unremarkable MRA of the [place]. 2. No MR evidence of intracranial mass lesion or acute infarct. us Franky Feliz MD IMG MRI ORDERABLES Final Res ult documented in this encounter Visit Diagnoses Not on filedocumented in this encounter
--- OUTSIDE RECORDS SUMMARY | 2024-08-15 12:13 | XMS_ITS | Encounter Summary ---
Author Organization [facility] Address [address] [place] [address] Care Team Providers Care Coke Production Heater Name Role Phone Cayla Yeager KAVYA Primary Care Provider [phone] Reason for Visit * Reason Comments Abdominal Pain epigastric burning and no BM x 4 days Encounter Details Date Type Department Care Team (Late st Contact Info) Description 08/05/2009 10:27 EST - 08/05/2009 15:43 EST Emergency [facility] Emergency Department - Main [place] [address] [place], [place] [address] Franky Prado MD [address] [place] [phone] Maj Bajwa MD [address] [place] [id number] Emergency, MD Efren Abdominal Pain, Epigastric Discharge Disposition: Home or Self Care Social History Tobacco Use Types Packs/Day Years Used Date Smoking Tobacco: Never Assessed Comments:no Comments Unknown Sex and Gender Information Value [...] this encounter Medications at Time of Discharge pantoprazole (PROTONIX) 20 mg tablet Take 2 Tabs by mouth daily. 30 Tab 0 08/05/2009 docusate sodium (COLACE) 250 mg capsule Take 1 Cap by mouth 2 times daily. 20 Cap 0 08/05/2009 09/25/2009 documented as of this encounter Ordered Prescriptions Prescription Sig Dispense Quantity Refills Last Filled Start Date End Date pantoprazole (PROTONIX) 20 [...] (08/05/2009 14:00 EST) Tests to be added [facility] Number for problems [id number] (ED) [facility] 08/05/2009 14:0 0 EST 08/05/2009 14:05 EST us Maj Garett [facility] HEMATOLOGY & PF4 ORDERABLES Jennifer carter Result [facility] [address] [place] [address] * RAD US ABDOMEN ONE ORGAN/QUADRANT (08/05/2009 [...] interpretation and agree with the findings. us Maj Garett [facility] IMG US ORDERABLES Final Result * HEMAGRAM (08/05/2009 11:38 EST) WBC 12.12 [...] 08/05/2009 11:3 8 EST 08/05/2009 11:45 EST us Maj Garett [facility] HEMATOLOGY & PF4 ORDERABLES Jennifer l Result Performing Organization Address [facility] Co de Phone Number [facility] [address] [place] [address] * HOLD PURPLE TOP (08/05/2009 11:38 EST) Hold Purple Top EDTA for hematology will be discarded after 48 hours, differential not available after 12 hours. [facility] Blood specimen (specimen) 08/05/2009 11:38 EST 08/05/2009 11:45 EST us Maj Garett [facility] INFO SERVICE AND SUPPORT & P LUCIANA RESULT Final Result Performing Organization Address [facility] Co de Phone Number [facility] [address] [place] [address] * HOLD GREEN TOP (08/05/2009 11:38 EST) Hold Green Top Hold for further testing. Specimen will be held for 5 days. [facility] Blood specimen (specimen) 08/05/2009 11:38 EST 08/05/2009 11:45 EST us Maj Garett [facility] INFO SERVICE AND SUPPORT & P LUCIANA RESULT Final Result Performing Organization Address [facility] de Phone Number [facility] [address] [place] [address] * HOLD BLUE TOP (08/05/2009 11:38 EST) Hold Blue Top Sample for coagulation will be discarded after 4 hours [facility] Blood specimen (specimen) 08/05/2009 11:38 EST 08/05/2009 11:45 EST Maj Garett [facility] INFO SERVICE AND SUPPORT & P LUCIANA RESULT Final Result Performing Organization Address [facility] de Phone Number [facility] [address] [place] [address] * LIPASE (08/05/2009 11:38 EST) Pathologist [facility] Lipase 226 0 - 250 U/L [facility] Blood specimen (specimen) 08/05/2009 11:38 EST 08/05/2009 11:45 EST Maj Garett [facility] CHEMISTRY & BLOOD GAS ORDERABLES Final Result Performing Organization Address [facility] de Phone Number [facility] [address] [place] [address] * LIVER FUNCTION TESTS (08/05/2009 11:38 EST) Pathologist [facility] Albumin 4.6 3.4 - 4.9 g/dl [facility] Total Protein 8.0 6.5 - 8.3 g/dl [facility] Alkaline Phosphatase 70 38 - 126 U/L [facility] ALT 25 9 - 52 U/L [facility] AST 25 15 - 46 U/L [facility] Unconjugated Bilirubin 0.4 0.1 - 1.1 mg/dl [facility] Conjugated Bilirubin 0.0 0.0 - 0.3 mg/dl [facility] Bilirubin, Total <0.5 0.2 - 1.3 mg/dl [facility] Blood specimen (specimen) 08/05/2009 11:38 EST 08/05/2009 11:45 EST us Maj Garett [facility] CHEMISTRY & BLOOD GAS ORDERABLES Final Result Performing Organization Address [facility] Co de Phone Number [facility] [address] [place] [address] * CREATININE (08/05/2009 11:38 EST) Creatinine 0.70 0.7 - 1.5 mg/dl [facility] GFR, Calculated >60 ml/min/1.7 3m2 [facility] Blood specimen (specimen) 08/05/2009 11:38 EST 08/05/2009 11:45 EST us Maj Garett [facility] CHEMISTRY & BLOOD GAS ORDERABLES Final Result Performing Organization Address [facility] de Phone Number [facility] [address] [place] [address] * BUN (08/05/2009 11:38 EST) BUN 10 10 - 26 mg/dl [facility] Blood specimen (specimen) 08/05/2009 11:38 EST 08/05/2009 11:45 EST us Maj Garett [facility] CHEMISTRY & BLOOD GAS ORDERABLES Final Result Performing Organization Address [facility] Co de Phone Number [facility] [address] [place] [address] * GLUCOSE, SERUM (08/05/2009 11:38 EST) Glucose, Serum 92 70 - 100 mg/dl [facility] Blood specimen (specimen) 08/05/2009 11:38 EST 08/05/2009 11:45 EST us Maj Garett [facility] CHEMISTRY & BLOOD GAS ORDERABLES Final Result Performing Organization Address [facility] Co de Phone Number [facility] [address] [place] [address] * ELECTROLYTES (08/05/2009 11:38 EST) Sodium 141 136 - 145 mEq/L [facility] Potassium 4.4 3.5 - 5.0 mEq/L [facility] Chloride 102 96 - 110 mEq/L [facility] CO2 28 24 - 32 mEq/L [facility] Blood specimen (specimen) 08/05/2009 11:38 EST 08/05/2009 11:45 EST us Maj Garett [facility] CHEMISTRY & BLOOD GAS ORDERABLES Final Result Performing Organization Address [facility] de Phone Number [place] [address] documented in this encounter Visit Diagnoses Diagnosis [...] STAT 1421 (Given - Provid er: Tegan Rachel RN) morphine injection 2 mg (COMPLETED) 2 mg, intravenous, NOW X1, 1 dose, On 08/05/09 at 1145, STAT 1152 (Given - Provid er: Tegan Rachel RN)1310 (Given - Provider: Tegan Rachel, CHELO) ondansetron (PF) (ZOFRAN) 4 mg/2 mL injection 4 mg (COMPLETED) 4 mg, intravenous, NOW X1, 1 dose, On 08/05/09 at 1145, STAT 1149 (Given - Provid er: Tegan Rachel RN) Continuous Medication Order 08/03/2009 08/04/2009 08/05/2009 sodium [...] 08/05/2009 documented in this encounter Care Teams Coke Production Heater Relationship Specialty Start Date End Date Cayla Yeager FNP [address] [place] [id number] PCP - General 05/30/09 documented as of this encounter
--- OUTSIDE RECORDS SUMMARY | 2024-08-15 12:13 | XMS_ITS | Encounter Summary ---
Author Organization [facility] Address [address] [place] [address] Care Team Providers Care Soft Work Cigar Machine Operator Name Role Phone Cayla Yeager Odette HOFF Primary Care Provider [phone] Encounter Details Date Type Department Care Team (Latest Contact Info) Description 05/30/2009 14:23 EDT - 05/30/2009 23:59 EDT Hospital Encounter [address] [address] Client, MD Efren Discharge Disposition: Home or [...] 14:33 EDT Nurse Employee Health IMMUNOLOGY AND SEROLOGY OR DERABLES Final Result Performing Organization Address [facility] de Phone Number [facility] [address] [place] [address] * RUBEOLA IGG ANTIBODY (05/30/2009 14:32 EDT) Rubeola IgG Ab Positive [facility] Blood specimen (specimen) 05/30/2009 14:32 EDT 05/30/2009 14:33 EDT Nurse Employee [facility] IMMUNOLOGY AND SEROLOGY OR DERABLES Final Result Performing Organization Address [facility] de Phone Number [facility] [address] [place] [address] * MUMPS ANTIBODY IGG (05/30/2009 14:32 EDT) Mumps Antibody IgG Negative [facility] Blood specimen (specimen) 05/30/2009 14:32 EDT 05/30/2009 14:33 EDT Nurse Employee Health IMMUNOLOGY AND SEROLOGY OR DERABLES Final Result Performing Organization Address [facility] de Phone Number [facility] [address] [place] [address] * RUBELLA IGG ANTIBODY (05/30/2009 14:32 EDT) Rubella IgG Ab Antibody detected Assayed utilizing the [facility] Immulite 2500. Values may vary with other methods. [facility] Blood specimen (specimen) 05/30/2009 14:32 EDT 05/30/2009 14:33 EDT Nurse Employee Health CHEMISTRY & BLOOD GAS ORDE RABLES Final Result Performing Organization Address [facility] Co de Phone Number [facility] [address] [place] [address] documented in this encounter Visit Diagnoses Not on filedocumented in this encounter Care Teams Soft Work Cigar Machine Operator Relationship Specialty Start Date End Date Cayla Yeager FNP [address] [place] [address] PCP - General 05/30/09 documented as of this encounter
[2024-08-15 12:14] LABS: Clarity Sl Cloudy (Clear)
[2024-08-15 12:25] LABS: Epithelial Cells Rare HPF (Negative); RBC 0-2 HPF (0-2); WBC 20-50 HPF (0-5)
[2024-08-15 12:26] LABS: Bacteria Few HPF (Negative); C & S Indicated? C&S Done As Ordered; Casts Negative LPF (Negative); Crystals Negative HPF (Negative); Mucus Negative (Negative)
[2024-08-15] MEDS: Sulfameth/Trimeth DS TAB 1 TAB PO (12:33)
[2024-08-15 12:35] VITALS: BP 126/76; PULSE 61; RESP 16; TEMP 36.4; O2SAT 98
== END 2024-08-15 12:44 | disposition home or self-care (01) ==
PROVIDERS: Emergency Provider Emergency Medicine; PCP Nurse Practitioner Family
DX: R10.31 Right lower quadrant pain (principal); R30.0 Dysuria; R32 Unspecified urinary incontinence; R35.0 Frequency of micturition; R11.0 Nausea; R50.9 Fever, unspecified
CPT/HCPCS: 36415; 80053; 96374; 96375; 99284; 74176; 81003; 81015; 85025; 87086; J1885; J2405

== ENCOUNTER 2024-08-20 22:14 | Outpatient (REF) | payer BC, SELFPAY ==
[2024-08-20 21:25] LABS: Bilirubin Negative (Negative); Blood Negative (Negative); Clarity Clear (Clear); Glucose Negative (Negative); Ketones Negative (Negative); Leukocyte Esterase Negative (Negative); Nitrite Negative (Negative); Specific Gravity >= 1.030 (1.005-1.025); Urobilinogen 0.2 mg/dL (Up to 0.2); pH 6.5 (5-8)
[2024-08-20 21:48] LABS: COMMENT (LAB VIEW ONLY) 125.36 mg/dL; Microalb ug/mg Crea 1.3 ug/mg Cr
== END 2024-08-20 22:15 | disposition home or self-care (01) ==
LOC: LBN 22:14
PROVIDERS: PCP Nurse Practitioner Family; Visit Provider Nurse Practitioner Family
DX: Z00.00 Encounter for general adult medical examination without abnormal findings (principal); R10.9 Unspecified abdominal pain; R73.9 Hyperglycemia, unspecified; D50.9 Iron deficiency anemia, unspecified; E55.9 Vitamin D deficiency, unspecified; R81 Glycosuria; I77.4 Celiac artery compression syndrome; Z90.3 Acquired absence of stomach [part of]
CPT/HCPCS: 81003; 82043; 82570

== ENCOUNTER 2024-09-07 03:33 | Outpatient (CLI) | payer BC, SELFPAY ==
[2024-09-07 07:40] LABS: HCT 41.2 % (36.0-46.0); HGB 13.3 g/dL (11.2-15.7); MCH 26.5 pg (27.0-33.0); MCHC 32.3 % (32.0-36.0); MCV 82 fL (80-95); MPV 9.7 fL (8.0-11.0); Platelet Count 232 10^3/uL (130-400); RBC 5.01 10^6/uL (3.93-5.22); RDW 12.1 % (11.7-14.6); RDW-SD 36.8 fL; WBC 4.53 10^3/uL (4.4-10.8)
[2024-09-07 08:00] LABS: Iron 84 ug/dL (50-170)
[2024-09-07 08:23] LABS: Ferritin 113 ng/mL (8-252); Vitamin D 25 Total 19.8 ng/mL (30-100)
[2024-09-09 18:48] LABS: Fructosamine 215 mcmol/L (200 - 285)
== END 2024-09-07 03:34 | disposition home or self-care (01) ==
PROVIDERS: PCP Nurse Practitioner Family; Referring Provider Nurse Practitioner Family; Visit Provider Nurse Practitioner Family
DX: D50.9 Iron deficiency anemia, unspecified (principal); R81 Glycosuria; E55.9 Vitamin D deficiency, unspecified
CPT/HCPCS: 36415; 82306; 85027; 82728; 82985; 83540

== ENCOUNTER 2024-09-09 13:13 | Emergency (ER) | payer BC, SELFPAY ==
[2024-09-09 13:17] VITALS: BP 106/72; PULSE 96; RESP 16; TEMP 37.1; O2SAT 98
--- NOTE | 2024-09-09 13:30 | DI.CT_ITS ---
Exam(s) CT ABDOMEN PELVIS W EXAM: CT ABDOMEN PELVIS W CLINICAL HISTORY: LUQ pain x 6 days, worse after eating TECHNIQUE: Imaging Protocol: Axial computed tomography images with coronal and sagittal reformatted images were created and reviewed. CONTRAST MATERIAL: Intravenous: Omnipaque 350 Contrast volume:75 mL Oral: No COMPARISON: CT CT RENAL COLIC WO from 09/25/[address] CHEST WO from 09/27/[address] ABDOMEN PELVIS WO/W from 01/02/[address] ABDOMEN PELVIS WO from 08/15/2024 FINDINGS: ABDOMEN: Lung Bases: No acute abnormality. Liver: Normal density. No measurable mass. Portal, Superior Mesenteric, and Splenic Veins: Unremarkable. Gallbladder and Biliary Tract: Status post cholecystectomy. No significant biliary ductal dilatation is present. Pancreas: Normal density, no abnormal calcifications or inflammatory process. Spleen: Normal. Adrenals: No masses seen. Kidneys: Normal size, contour and axis. No radiodense stones or obstructive uropathy. No masses seen. Abdominal Aorta: Abdominal portion non-dilated. Atherosclerotic calcification is present. Bowel: There is bowel wall thickening seen in the splenic flexure. The remainder of the bowel is unr emarkable. No evidence of bowel obstruction is present. The patient has had gastric surgery. There is an anastomosis seen in the small bowel in the left abdomen. There is again seen a distended loop of small bowel in the left upper quadrant. This is associated with anastomotic clips. This has bee n relatively stable compared to the prior examinations the oldest of which is 09/25/2021. Appendix is unremarkable. Peritoneal Cavity: No ascites, collection or mesenteric inflammatory response. No free air. Lymph Nodes: Within normal limits. Bones: Within normal limits for the patient's age. Portions of the sacrum and coccyx are not include d on this examination. Soft Tissues: Unremarkable. PELVIS: Bladder: The urinary bladder is incompletely distended but grossly unremarkable. Reproductive Organs: The uterus is absent. Lymph Nodes: Within normal limits. Bones: Within normal limits for the patient's age. IMPRESSION: There is wall thickening seen in the splenic flexure suspicious for colitis. No abscess or free air. RADIATION DOSE DELIVERED: 515.14mGy.cm Total DLP DATA REPOSITORY: All CT scans at this facility are submitted to the National Radiology Data Registry (NRDR) Dose Index Registry (DIR) with the [employer] (A[employer]). RADIATION OPTIMIZATION: All CT scans at this facility use at least one of these dose optimization te chniques: automated exposure control; mA and/or kV adjustment per patient size (includes targeted exa ms where dose is matched to clinical indication); or iterative reconstruction.
[2024-09-09 13:53] LABS: Abs Immature Grans 0.02 10^3/uL (0.0-0.06); Absolute Basophil Count 0.01 10^3/uL (0.0-0.2); Absolute Eosinophil Count 0.07 10^3/uL (0.0-0.7); Absolute Lymphocyte Count 2.73 10^3/uL (1.2-3.4); Absolute Monocyte Count 0.48 10^3/uL (0.1-0.8); Basophils % 0.1 %; Eosinophils % 0.9 %; HCT 42.2 % (36.0-46.0); HGB 13.6 g/dL (11.2-15.7); Immature Grans % 0.3 %; Lymphocytes % 36.8 %; MCH 26.8 pg (27.0-33.0); MCHC 32.2 % (32.0-36.0); MCV 83 fL (80-95); MPV 10.1 fL (8.0-11.0); Monocytes % 6.5 %; Neutrophils % 55.4 %; Platelet Count 252 10^3/uL (130-400); RBC 5.07 10^6/uL (3.93-5.22); RDW 12.2 % (11.7-14.6); WBC 7.41 10^3/uL (4.4-10.8)
[2024-09-09] MEDS: Ondansetron 4 MG/2 ML VIAL IVP (14:05)
[2024-09-09] MEDS: Normal Saline Flush 10 ML SYR IVP (14:05)
[2024-09-09] MEDS: FAMOTIDINE 20 MG in Normal Saline 100 ML 400 MG IVPB (14:08)
[2024-09-09 14:12] LABS: ALT 34 U/L (14-59); AST 27 U/L (15-37); Alkaline Phosphatase 114 U/L (46-116); Anion Gap 5.7 mmol/L (3-11); BUN 9 mg/dL (7-18); Bilirubin, Total 0.35 mg/dL (0.2-1.0); CO2 32.3 mmol/L (21.0-32.0); Calcium 8.9 mg/dL (8.5-10.1); Chloride 107 mmol/L (98-107); Estimated GFR 68.63 (mL/min/1.73m2); Glucose 79 mg/dL (74-106); Lipase 85 U/L (<78); Magnesium 2.2 mg/dL (1.8-2.4); Potassium 3.6 mmol/L (3.5-5.1); Sodium 145 mmol/L (136-145); Total Protein 7.5 g/dL (6.4-8.2)
[2024-09-09] MEDS: Ketorolac 15 MG/ML VIAL IVP (14:17)
--- NOTE | 2024-09-09 14:33 | ED.GENADUL_ITS ---
Discharge Plan Disposition Patient Disposition: Home Condition: Stable Discharge Details Clinical Impression: Colitis Primary Care Provider: Mike Rivas ED Provider: Bibiana Melgoza Home Meds and New Rx's Prescriptions: New oxycodone-acetaminophen [Percocet] 5-325 mg tablet 1 tab PO Q8H PRN (Reason: pain) Qty: 7 0RF Rx Instructions: 1 tablet with food by mouth every 8 hours as needed for moderate to severe pain dicyclomine 20 mg tablet 20 mg PO TID PRN (Reason: stomach upset) Qty: 14 0RF Rx Instructions: Take 1 tablet up to 3 times daily as needed for stomach cramps or stomach upset ondansetron 4 mg tablet,disintegrating 4 mg PO Q8H PRN (Reason: nausea and vomiting) 4 Days Qty: 9 0RF Rx Instructions: Take 1 tablet up to 3 times daily as needed for nausea and vomiting 20 minutes prior to meals. Continued albuterol sulfate [Proventil HFA] 90 mcg/actuation HFA aerosol inhaler 2 puff inhalation Q6H PRN (Reason: shortness of breath or wheezing) Qty: 8.5 0RF epinephrine 0.3 mg/0.3 mL auto-injector 0.3 mg IM ONCE Qty: 2 0RF Rx Instructions: as a single dose; may repeat once ibuprofen 800 mg tablet 800 mg PO Q8H PRN (Reason: pain) Qty: 20 0RF amitriptyline 10 mg tablet 10 mg PO QHS Qty: 90 0RF ferrous sulfate [Feosol] 325 mg (65 mg iron) tablet 325 mg PO QID pantoprazole 40 mg tablet,delayed release (DR/EC) 40 mg PO BID Wegovy 0.25 mg/0.5 mL pen injector 0.25 mg subcut QWEEK Qty: 2 0RF Rx Instructions: administer weeks 1 through 4 of therapy ergocalciferol (vitamin D2) 1,250 mcg (50,000 unit) capsule 1,250 mcg PO DAILY ondansetron 4 mg tablet,disintegrating 4 mg PO Q6H PRN (Reason: nausea and vomiting) Qty: 20 0RF Discharge Instructions Instructions: Clear Liquid Diet, Colitis (DC) Additional Instructions: The CT does show some bowel wall thickening indicative of possible colitis. No evidence of bowel obstruction or any other abnormality. A prescription for pain medications, Bentyl or dicyclomine for stomach cramps and nausea medication was sent to pharmacy file. Please follow-up with your primary care provider early next week for reassessment. I recommend that you continue to use Ibuprofen 600 mg every 8 hours for pain control [id number] for pain control. A heating pad may also provide some comfort. For the next 1 to 2 days bowel rest is recommended. Follow a clear liquid diet, then advance diet slowly as tolerated.\ Return to emergency care for develop new fever/chills, worsening abdominal pain, are unable to hold down any fluids or food, decreased urine output, blood in your stool, or if you are very worried and need to be rechecked again immediately Follow up with primary care provider in 3-5 days. Return to ED sooner if any worsening or concerns. Referrals: Mike Rivas NP [Primary Care Provider] - Discharge Data Discharge Date/Time-TO BE ENTERED AT DEPARTURE: 09/09/24 16:58 HPI <Kalpana Thompsno - Last Filed: 09/09/24 16:06> General Date/Time Provider Initiated Documentation: 09/09/24 13:17 . HPI Narrative: Analisa is a 49year old female who presents to the emergency department today for evaluation of left upper quadrant pain. She reports that this started after her dog stepped on her abdomen while getting into bed. She initially felt a popping sensation, like breast cyst she has had in the past. The pain was initially very mild, a dull aching but has since developed into a sharp toothache type of pain that is aggravated with movement and eating. She reports this is accompanied by decreased appetite over the last few days. Denies fever/chills, congestion, sore throat, cough, chest pain, shortness of breath, nausea/vomiting, change in bowel or bladder function, black/tarry stools.. Past medical history is significant for GERD with Queen's esophagus, multiple gastric surgeries including Analia-en-Y procedure and partial gastrectomy. She is status post hysterectomy with unilateral oophorectomy. 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 Denies history of EtOH use, drug use, immunocompromise, diabetes, lung or heart disease. Physical exam remarkable for significant tenderness to palpation of left side of abdomen, worse in the left upper quadrant. Normoactive bowel sounds, abdomen is soft, nondistended, no rigidity or guarding. No lesions or ecchymosis overlying abdomen or flank. Easy work of breathing, lung sounds clear bilaterally. Normal heart sounds. No CVA tenderness. D/dx includes but is not limited to: Pancreatitis, cholelithiasis/cholecystitis, gastritis, peptic ulcer disease, adhesions or other complications status post surgery, pouchitis, diverticulitis, left lower lobe pneumonia (less likely) I independently interpreted the following tests: CBC and CMP reassuring. Lipase slightly elevated at 85. CRP negative. UA reassuring, slightly elevated specific gravity but otherwise unremarkable and not consistent with UTI. CT abdomen/pelvis performed, significant for bowel wall thickening in the splenic flexure suspicious for colitis without complication such as abscess or free air. While in the emergency department, Analisa received Toradol for discomfort, famotidine, and Zofran. She reports no change in pain level after receiving medications. Will give acetaminophen and oxycodone, along with p.o. challenge. Handoff report given to Bibiana Melgoza WORKPLACE RELATIONS ADVISER, evening STACEY. Related Data Home Medications ?Medication ?Instructions ?Recorded ?Confirmed ferrous sulfate 325 mg (65 mg 325 mg PO QID 03/11/23 09/09/24 iron) tablet (Feosol) pantoprazole 40 mg tablet,delayed 40 mg PO BID 10/20/23 09/09/24 release albuterol sulfate 90 mcg/actuation 2 puff inhalation Q6H PRN 02/16/24 09/09/24 aerosol inhaler (Proventil HFA) shortness of breath or wheezing #8.5 grams epinephrine 0.3 mg/0.3 mL 0.3 mg (0.3 mL) IM ONCE #2 ea 02/16/24 09/09/24 injection, auto-injector ibuprofen 800 mg tablet 800 mg PO Q8H PRN pain #20 tabs 06/24/24 09/09/24 ergocalciferol (vitamin D2) 1,250 1,250 mcg PO DAILY 08/15/24 09/09/24 mcg (50,000 unit) capsule ondansetron 4 mg disintegrating 4 mg PO Q6H PRN nausea and 08/15/24 09/09/24 tablet vomiting #20 tabs amitriptyline 10 mg tablet 10 mg PO QHS #90 tabs 08/20/24 09/09/24 semaglutide (weight loss) 0.25 0.25 mg (0.5 mL) subcut QWEEK #2 mL 08/20/24 09/09/24 mg/0.5 mL subcutaneous pen injector (Wegovy) dicyclomine 20 mg tablet 20 mg PO TID PRN stomach upset #14 09/09/24 tabs ondansetron 4 mg disintegrating 4 mg PO Q8H PRN nausea and 09/09/24 tablet vomiting 4 days #9 tabs oxycodone-acetaminophen 5 mg-325 1 tab PO Q8H PRN pain #7 tabs 09/09/24 mg tablet (Percocet) Previous Rx's ?Medication ?Instructions ?Recorded albuterol sulfate 90 mcg/actuation 2 puff inhalation Q6H PRN 02/16/24 aerosol inhaler (Proventil HFA) shortness of breath or wheezing #8.5 grams epinephrine 0.3 mg/0.3 mL 0.3 mg (0.3 mL) IM ONCE #2 ea 02/16/24 injection, auto-injector ibuprofen 800 mg tablet 800 mg PO Q8H PRN pain #20 tabs 06/24/24 ondansetron 4 mg disintegrating 4 mg PO Q6H PRN nausea and 08/15/24 tablet vomiting #20 tabs amitriptyline 10 mg tablet 10 mg PO QHS #90 tabs 08/20/24 semaglutide (weight loss) 0.25 0.25 mg (0.5 mL) subcut QWEEK #2 mL 08/20/24 mg/0.5 mL subcutaneous pen injector (Wegovy) dicyclomine 20 mg tablet 20 mg PO TID PRN stomach upset #14 09/09/24 tabs ondansetron 4 mg disintegrating 4 mg PO Q8H PRN nausea and 09/09/24 tablet vomiting 4 days #9 tabs oxycodone-acetaminophen 5 mg-325 1 tab PO Q8H PRN pain #7 tabs 09/09/24 mg tablet (Percocet) Allergies Allergy/AdvReac Type Severity Reaction Status Date / Time bupropion (From Wellbutrin) Allergy Severe Pt states Verified 09/09/24 13:19 serum sickness onion Allergy Severe Anaphylaxis Verified 09/09/24 13:19 General Stated Complaint: Abd Prob NINFA: 3 Review of Systems <Kalpana Knott Last Filed: 09/09/24 16:06> Narrative: See HPI Exam <Kalpana Knott Filed: 09/09/24 16:06> Const General: cooperative, healthy appearing, well developed and well groomed Nutritional Appearance: average body habitus Orientation: alert and oriented x3 Resp Effort & Inspection: normal respiratory effort and able to speak in complete sentences Auscultation: clear to auscultation bilaterally Cardio Rate: regular rate Rhythm: regular rhythm GI Inspection: normal to inspection Palpation: soft, not firm, no guarding, not rigid and tender (LUQ>LLQ) Auscultation: normal bowel sounds Back/Spine/Pelvis Back: no CVA tenderness and No ecchymosis Course <Kalpana Knott Filed: 09/09/24 16:06> Vital Signs Vital signs: Vital Signs Temperature 37.1 C 09/09/24 13:17 Pulse 96 H 09/09/24 13:17 Respiratory Rate 16 09/09/24 13:17 Blood Pressure 106/72 09/09/24 13:17 Pulse Oximetry 98 09/09/24 13:17 Temperature 37.1 C 09/09/24 13:17 Pulse 96 H 09/09/24 13:17 Respiratory Rate 16 09/09/24 13:17 Blood Pressure 106/72 09/09/24 13:17 Pulse Oximetry 98 09/09/24 13:17 Pain Level 8 09/09/24 13:17 Lab/Test Results Lab/Test Results: Laboratory Tests Range/Units 09/09/24 13:47 WBC (4.4-10.8) 10^3/uL 7.41 RBC (3.93-5.22) 10^6/uL 5.07 Hgb (11.2-15.7) g/dL 13.6 Hct (36.0-46.0) % 42.2 MCV (80-95) fL 83 MCH (27.0-33.0) pg 26.8 L MCHC (32.0-36.0) % 32.2 RDW (11.7-14.6) % 12.2 Plt Count (130-400) 10^3/uL 252 MPV (8.0-11.0) fL 10.1 Immature Gran % % 0.3 Neutrophils % % 55.4 Lymphocytes % % 36.8 Monocytes % % 6.5 Eosinophils % % 0.9 Basophils % % 0.1 Nucleated RBC % (0.0-0.3) % 0.0 Absolute Neutrophils (1.2-6.7) 10^3/uL 4.10 Absolute Lymphocytes (1.2-3.4) 10^3/uL 2.73 Absolute Monocytes (0.1-0.8) 10^3/uL 0.48 Absolute Eosinophils (0.0-0.7) 10^3/uL 0.07 Absolute Basophils (0.0-0.2) 10^3/uL 0.01 Sodium (136-145) mmol/L 145 Potassium (3.5-5.1) mmol/L 3.6 Chloride (98-107) mmol/L 107 Carbon Dioxide (21.0-32.0) mmol/L 32.3 H Anion Gap (3-11) mmol/L 5.7 BUN (7-18) mg/dL 9 Creatinine (0.55-1.02) mg/dL 1.0 Est GFR (CKD-EPI 2020) (mL/min/1.73m2) 68.63 Glucose (74-106) mg/dL 79 Calcium (8.5-10.1) mg/dL 8.9 Magnesium (1.8-2.4) mg/dL 2.2 Total Bilirubin (0.2-1.0) mg/dL 0.35 AST (15-37) U/L 27 ALT (14-59) U/L 34 Alkaline Phosphatase (46-116) U/L 114 Total Protein (6.4-8.2) g/dL 7.5 Albumin (3.4-5.0) g/dL 4.0 Lipase (<78) U/L 85 H Medical Decision Making <Kalpana Thompson - Last Filed: 09/09/24 16:06> Quality:SDOH Health Related Social Needs: No Data to Display <Bibiana Melgoza NP - Last Filed: 09/09/24 21:43> Medical Records Medical records narrative: 1555: S[place]: Care assumed from provider (Kalpana Calderon NP) Please see their initial HPI, PE, and documentation. Discussed patient details and case and pending workup and disposition. Patient is hemodynamically stable, and alert and oriented. At the time of signout awaiting p.o. challenge and additional pain medication and reevaluation. Patient 49-year-old female here with 6 days of left upper quadrant abdominal pain decreased appetite. CT abdomen pelvis shows most likely colitis. Will consider sending patient home with pain medication nausea medication possibly dicyclomine after reevaluation. Labs are largely unremarkable. Patient was given Percocet and some aminta bebeto which she has tolerated without vomiting. Informed by medical staff coordinator that patient is still complaining of pain. Patient reevaluation she is sitting in bed, appears much more comfortable at this time. She has been tolerating aminta bebeto, will discharge patient home with clear liquid diet for the next few days, nausea medication and dicyclomine along with Percocet. Patient remained hemodynamically stable alert and oriented throughout the remainder of her stay. Discussed follow-up with PCP and home care. This text was generated using [employer] dictation system, please disregard any oddities of phrase or misspellings. Lab Data Lab results reviewed: Yes I reviewed the patient's lab results. Labs: Laboratory Tests Range/Units 09/09/24 09/09/24 13:47 14:27 WBC (4.4-10.8) 10^3/uL 7.41 RBC (3.93-5.22) 10^6/uL 5.07 Hgb (11.2-15.7) g/dL 13.6 Hct (36.0-46.0) % 42.2 MCV (80-95) fL 83 MCH (27.0-33.0) pg 26.8 L MCHC (32.0-36.0) % 32.2 RDW (11.7-14.6) % 12.2 Plt Count (130-400) 10^3/uL 252 MPV (8.0-11.0) fL 10.1 Immature Gran % % 0.3 Neutrophils % % 55.4 Lymphocytes % % 36.8 Monocytes % % 6.5 Eosinophils % % 0.9 Basophils % % 0.1 Nucleated RBC % (0.0-0.3) % 0.0 Absolute Neutrophils (1.2-6.7) 10^3/uL 4.10 Absolute Lymphocytes (1.2-3.4) 10^3/uL 2.73 Absolute Monocytes (0.1-0.8) 10^3/uL 0.48 Absolute Eosinophils (0.0-0.7) 10^3/uL 0.07 Absolute Basophils (0.0-0.2) 10^3/uL 0.01 Sodium (136-145) mmol/L 145 Potassium (3.5-5.1) mmol/L 3.6 Chloride (98-107) mmol/L 107 Carbon Dioxide (21.0-32.0) mmol/L 32.3 H Anion Gap (3-11) mmol/L 5.7 BUN (7-18) mg/dL 9 Creatinine (0.55-1.02) mg/dL 1.0 Est GFR (CKD-EPI 2020) (mL/min/1.73m2) 68.63 Glucose (74-106) mg/dL 79 Calcium (8.5-10.1) mg/dL 8.9 Magnesium (1.8-2.4) mg/dL 2.2 Total Bilirubin (0.2-1.0) mg/dL 0.35 AST (15-37) U/L 27 ALT (14-59) U/L 34 Alkaline Phosphatase (46-116) U/L 114 C-Reactive Protein (<or=0.5) mg/dL < 0.50 Total Protein (6.4-8.2) g/dL 7.5 Albumin (3.4-5.0) g/dL 4.0 Lipase (<78) U/L 85 H Urine Color (Yellow) Yellow Urine Clarity (Clear) Clear Urine pH (5-8) 6.5 Ur Specific [place] (1.005-1.025) 1.025 Urine Protein (Neg-Trace) mg/dL Negative Urine Ketones (Negative) mg/dL Negative Urine Blood (Negative) Negative Urine Nitrite (Negative) Negative Urine Bilirubin (Negative) Negative Urine Urobilinogen (Up to 0.2) mg/dL 0.2 Ur Leukocyte Esterase (Negative) Negative Urine Glucose (Negative) mg/dL Negative PFSH <Kalpana Thompson - Last Filed: 09/09/24 16:06> All Active Problems (Updated 09/09/24 @ 16:08 by Kalpana Thompson) Colitis (Acute) Abdominal mass, LUQ (left upper quadrant) (Acute) Glucosuria (Acute) Acute flank pain (Acute) Fever (Acute) Dysuria (Acute) Celiac artery stenosis (Acute) per CT Dental infection (Acute) Seborrheic keratosis (Acute) Vitamin D deficiency (Acute) Altered gait (Acute) Hematoma (Acute) Upper back pain (Acute) Neck pain (Acute) Mass in neck (Acute) Periodic heart flutter (Acute) S/P partial gastrectomy (Acute) Syncope (Chronic) Hypochromic anemia (Acute) check CBC and ferritin q6-12m, refer back to hem/onc for iron transfusion for ferritin <30 BPPV (benign paroxysmal positional vertigo) (Acute) Restless legs (Acute) Elevated LFTs (Acute) Arthralgia (Acute) Microcytosis (Acute) Left wrist pain (Acute) Left upper arm pain (Acute) Painful lumpy right breast (Acute) Hx of endometriosis (Acute) Labial cyst (Acute) Right, 1 cm Pelvic pain (Acute) Medical History Urinary tract infection Obesity Gastroparesis Low back pain Hemorrhoids Anxiety about health Mild episode of recurrent major depressive disorder PTSD (post-traumatic stress disorder) Hx of colonic polyp Hiatal hernia with GERD Barretts esophagus with dysplasia Tibial plateau fracture, left orif, metal in left tibia UTI (urinary tract infection) Left flank pain Chronic bladder pain Surgical History H/O right breast biopsy Hx of knee surgery Hx of hysterectomy History of esophagogastroduodenoscopy (EGD) History of cholecystectomy History of partial gastrectomy History of Magdaleno fundoplication History of laparoscopy Hx of section H/O hysterectomy with oophorectomy Unilateral oophorectomy for endometriosis Family History Mother , 75 Cancer Cervical Depression Heart disease Hyperlipidemia Stroke Father , 81 Diabetes Hypertension Brother , 51 Heart disease Hyperlipidemia Stroke Brother Heart disease Hyperlipidemia Hypertension Son No problems noted. Son No problems noted. Maternal Grandfather , 77 Cancer Lung Diabetes Heart disease Stroke Paternal Grandfather , 75 Diabetes Heart disease Hypertension Maternal Grandmother , 63 Cancer Breast Diabetes Stroke Paternal Grandmother , 76 Cancer Ovarian Heart disease Hypertension Stroke Social History (Updated 08/23/24 @ 08:41 by Kianna Preston) Smoking/Tobacco Use Status: Former Tobacco Use tobacco type: cigarettes Quit Date: 09/15/94 Tobacco: How many years used: 20 Second Hand Exposure: Yes Smoking risk assessment performed?: Yes Alcohol Intake: current Alcohol Intake frequency: holidays/special occasions only Alcohol type: wine Drug use: Never Substance use type: does not use Adopted: No Household members: spouse and children Housing: house Number of Children: 4 number of grandchildren: 6 Communication Needs: None Education Level: college 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 Pets and animals: Yes Pets and animals: cat(s), dog(s) and horse(s) Sexually active: Yes Do you think of yourself as: straight/heterosexual Current gender identity: female What is your relationship status?: How often do you talk on the phone with friends or family?: twice per week How often do you get together with friends or relatives?: twice per week How often do you attend presybeterian or lutheran services?: 1-3 times per year Do you belong to any clubs or organized social groups?: no Panel score (0-1 are the most socially isolated patients): 2 What type of physical activity do you participate in: walking Duration: 15-30 minutes/day Frequency: 3-4 times per week Radha/Adventist: Non catholic Special radha needs: No Seatbelt use: always Helmet use: Yes Helmet use: always Drive intox or ride w/intox tractor trailer truck 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
[2024-09-09 14:48] LABS: Bilirubin Negative (Negative); Blood Negative (Negative); Clarity Clear (Clear); Glucose Negative (Negative); Ketones Negative (Negative); Leukocyte Esterase Negative (Negative); Nitrite Negative (Negative); Specific Gravity 1.025 (1.005-1.025); Urobilinogen 0.2 mg/dL (Up to 0.2); pH 6.5 (5-8)
[2024-09-09] MEDS: Normal Saline - Diluent 50 ML VIAL IJ (14:56)
[2024-09-09] MEDS: Omnipaque 350 MG/ML 100 ML BTL IJ (14:58)
[2024-09-09] MEDS: Acetaminophen 325 MG TAB 650 MG PO (15:50)
[2024-09-09 15:51] VITALS: BP 104/64; PULSE 66; RESP 14; TEMP 36.8; O2SAT 100
[2024-09-09] MEDS: oxyCODONE 5 MG TAB PO (15:51)
[2024-09-09 15:58] LABS: C-Reactive Protein < 0.50 mg/dL (<or=0.5)
[2024-09-09 16:58] VITALS: BP 104/61; PULSE 67; RESP 14; O2SAT 98
== END 2024-09-09 16:58 | disposition home or self-care (01) ==
PROVIDERS: Nurse Practitioner Family; Emergency Provider Registered Nurse Emergency; PCP Nurse Practitioner Family
DX: K52.9 Noninfective gastroenteritis and colitis, unspecified (principal); R10.12 Left upper quadrant pain; Z98.84 Bariatric surgery status; Z79.899 Other long term (current) drug therapy; Z87.891 Personal history of nicotine dependence
CPT/HCPCS: 36415; 80053; 83690; 96365; 96375; 99285; 74177; 81003; 83735; 85025; 86140; J1885; J2405; J3490

== ENCOUNTER 2024-09-14 14:53 | Outpatient (REF) | payer BC, SELFPAY ==
[2024-09-14 20:59] LABS: Abs Immature Grans 0.01 10^3/uL (0.0-0.06); Absolute Basophil Count 0.02 10^3/uL (0.0-0.2); Absolute Eosinophil Count 0.07 10^3/uL (0.0-0.7); Absolute Lymphocyte Count 2.31 10^3/uL (1.2-3.4); Absolute Monocyte Count 0.42 10^3/uL (0.1-0.8); Absolute Neutrophil Count 2.88 10^3/uL (1.2-6.7); Basophils % 0.4 %; Eosinophils % 1.2 %; HCT 41.7 % (36.0-46.0); HGB 13.5 g/dL (11.2-15.7); Immature Grans % 0.2 %; Lymphocytes % 40.5 %; MCH 26.9 pg (27.0-33.0); MCHC 32.4 % (32.0-36.0); MCV 83 fL (80-95); MPV 10.6 fL (8.0-11.0); Monocytes % 7.4 %; Neutrophils % 50.3 %; Platelet Count 235 10^3/uL (130-400); RBC 5.01 10^6/uL (3.93-5.22); RDW 12.1 % (11.7-14.6); RDW-SD 36.7 fL; WBC 5.71 10^3/uL (4.4-10.8)
[2024-09-14 21:09] LABS: ALT 43 U/L (14-59); AST 28 U/L (15-37); Albumin 4.1 g/dL (3.4-5.0); Alkaline Phosphatase 110 U/L (46-116); Amylase 72 U/L (25-115); Anion Gap 4.4 mmol/L (3-11); BUN 7 mg/dL (7-18); Bilirubin, Total 0.51 mg/dL (0.2-1.0); C-Reactive Protein < 0.50 mg/dL (<or=0.5); CO2 32.6 mmol/L (21.0-32.0); CREATININE 0.8 mg/dL (0.55-1.02); Chloride 104 mmol/L (98-107); Estimated GFR 89.71 (mL/min/1.73m2); Glucose 86 mg/dL (74-106); Lipase 64 U/L (<78); Potassium 4.9 mmol/L (3.5-5.1); Sodium 141 mmol/L (136-145)
[2024-09-14 21:13] LABS: Calcium 9.4 mg/dL (8.5-10.1)
== END 2024-09-14 14:54 | disposition home or self-care (01) ==
LOC: LBN 14:53
PROVIDERS: PCP Nurse Practitioner Family; Visit Provider Nurse Practitioner Family
DX: K52.9 Noninfective gastroenteritis and colitis, unspecified (principal); R10.9 Unspecified abdominal pain; R19.02 Left upper quadrant abdominal swelling, mass and lump
CPT/HCPCS: 80053; 83690; 82150; 85025; 86140

== ENCOUNTER 2024-09-27 08:27 | Emergency (ER) | payer BC, SELFPAY ==
[2024-09-27 08:33] VITALS: BP 120/82; PULSE 86; RESP 16; TEMP 36.5; O2SAT 98
--- NOTE | 2024-09-27 08:55 | W.ED.GENAD ---
Discharge Plan Disposition Patient Disposition: Home Condition: Stable Discharge Details Clinical Impression: Sprain of left wrist, Sacral contusion Primary Care Provider: Mike Rivas ED Provider: Kervin Spencer Home Meds and New Rx's Prescriptions: Continued albuterol sulfate [Proventil HFA] 90 mcg/actuation HFA aerosol inhaler 2 puff inhalation Q6H PRN (Reason: shortness of breath or wheezing) Qty: 8.5 0RF epinephrine 0.3 mg/0.3 mL auto-injector 0.3 mg IM ONCE Qty: 2 0RF Rx Instructions: as a single dose; may repeat once ibuprofen 800 mg tablet 800 mg PO Q8H PRN (Reason: pain) Qty: 20 0RF amitriptyline 10 mg tablet 10 mg PO QHS Qty: 90 0RF ferrous sulfate [Feosol] 325 mg (65 mg iron) tablet 325 mg PO QID pantoprazole 40 mg tablet,delayed release (DR/EC) 40 mg PO BID oxycodone-acetaminophen [Percocet] 5-325 mg tablet 1 tab PO Q8H MDD 3 tab PRN (Reason: pain) Qty: 7 0RF Rx Instructions: 1 tablet with food by mouth every 8 hours as needed for moderate to severe pain semaglutide (weight loss) 0.5 mg/0.5 mL pen injector 0.5 mg subcut QWEEK Qty: 2 0RF Rx Instructions: administer weeks 1 through 4 of therapy dicyclomine 20 mg tablet 20 mg PO TID PRN (Reason: stomach upset) Qty: 14 0RF Rx Instructions: Take 1 tablet up to 3 times daily as needed for stomach cramps or stomach upset ergocalciferol (vitamin D2) 1,250 mcg (50,000 unit) capsule 1,250 mcg PO DAILY ondansetron 4 mg tablet,disintegrating 4 mg PO Q6H PRN (Reason: nausea and vomiting) Qty: 20 0RF Discharge Instructions Instructions: Coccyx Injury, Wrist Sprain ED Additional Instructions: You were seen in the emergency department for your fall this morning, you have a sprained left wrist as well as a tailbone contusion. There is no fracture seen on any of your imaging. Please use therapeutic dosing of Tylenol (acetamenophen) & Advil (ibuprofen) in an alternating fashion as follows: Take 1000mg of Tylenol every 6 hours without missing doses- that is 4 times per day. Group Home in between the Tylenol dosings, take 400-600mg of Advil also on a 6 hour schedule, that is also 4 times per day. The daily maximum dosing of Tylenol is 4000mg, and the daily maximum dosing of Advil is 2400mg. This is safe to do for weeks. Please note that some common cold medications & prescription pain medications may contain acetamenophen and you need to read OTC drug labels and factor that in to maximum daily dosings. Please return for any emergent concerns Referrals: Mike Rivas NP [Primary Care Provider] - Discharge Data Discharge Date/Time-TO BE ENTERED AT DEPARTURE: 09/27/24 11:24 HPI General Date/Time Provider Initiated Documentation: 09/27/24 08:37. HPI Narrative: 49 year-old female presents to ED today by POV/ambulating with a chief complaint of fall backwards this morning on icy steps landing on her left wrist, having pain to tailbone. Quality described as mild tingling to the fingers of the left hand, patient [id number], no radiation to urinary retention, bowel incontinence, saddle anesthesia, deformity, gross deformity, bruising. Severity is described as 8/10. Palliating factors include nothing specific attempted. Provoking factors include nothing specific. Patient not anticoagulated. Related Data Home Medications ?Medication ?Instructions ?Recorded ?Confirmed ferrous sulfate 325 mg (65 mg 325 mg PO QID 03/11/23 09/27/24 iron) tablet (Feosol) pantoprazole 40 mg tablet,delayed 40 mg PO BID 10/20/23 09/27/24 release albuterol sulfate 90 mcg/actuation 2 puff inhalation Q6H PRN 02/16/24 09/27/24 aerosol inhaler (Proventil HFA) shortness of breath or wheezing #8.5 grams epinephrine 0.3 mg/0.3 mL 0.3 mg (0.3 mL) IM ONCE #2 ea 02/16/24 09/27/24 injection, auto-injector ibuprofen 800 mg tablet 800 mg PO Q8H PRN pain #20 tabs 06/24/24 09/27/24 ergocalciferol (vitamin D2) 1,250 1,250 mcg PO DAILY 08/15/24 09/27/24 mcg (50,000 unit) capsule ondansetron 4 mg disintegrating 4 mg PO Q6H PRN nausea and 08/15/24 09/27/24 tablet vomiting #20 tabs amitriptyline 10 mg tablet 10 mg PO QHS #90 tabs 08/20/24 09/27/24 dicyclomine 20 mg tablet 20 mg PO TID PRN stomach upset #14 09/09/24 09/27/24 tabs oxycodone-acetaminophen 5 mg-325 1 tab PO Q8H PRN pain #7 tabs 09/14/24 09/27/24 mg tablet (Percocet) semaglutide (weight loss) 0.5 0.5 mg (0.5 mL) subcut QWEEK #2 mL 09/23/24 09/27/24 mg/0.5 mL subcutaneous pen injector Previous Rx's ?Medication ?Instructions ?Recorded albuterol sulfate 90 mcg/actuation 2 puff inhalation Q6H PRN 02/16/24 aerosol inhaler (Proventil HFA) shortness of breath or wheezing #8.5 grams epinephrine 0.3 mg/0.3 mL 0.3 mg (0.3 mL) IM ONCE #2 ea 02/16/24 injection, auto-injector ibuprofen 800 mg tablet 800 mg PO Q8H PRN pain #20 tabs 06/24/24 ondansetron 4 mg disintegrating 4 mg PO Q6H PRN nausea and 08/15/24 tablet vomiting #20 tabs amitriptyline 10 mg tablet 10 mg PO QHS #90 tabs 08/20/24 dicyclomine 20 mg tablet 20 mg PO TID PRN stomach upset #14 09/09/24 tabs oxycodone-acetaminophen 5 mg-325 1 tab PO Q8H PRN pain #7 tabs 09/14/24 mg tablet (Percocet) semaglutide (weight loss) 0.5 0.5 mg (0.5 mL) subcut QWEEK #2 mL 09/23/24 mg/0.5 mL subcutaneous pen injector Allergies Allergy/AdvReac Type Severity Reaction Status Date / Time bupropion (From Wellbutrin) Allergy Severe Pt states Verified 09/27/24 08:37 serum sickness onion Allergy Severe Anaphylaxis Verified 09/27/24 08:37 General Stated Complaint: Orthopedic NINFA: 3 Review of Systems All systems reviewed & are unremarkable except as noted in HPI and below Exam Narrative Exam Narrative: GENERAL APPEARANCE: Well-nourished, non-toxic, awake and alert, atraumatic, no acute distress. SKIN: Warm, pink, dry, intact, without rashes/lesions/ulcerations. HEAD: Normocephalic, atraumatic, normal hair distribution for gender/age. EYES: Normal conjunctiva, no exudates on lids/lashes. ENT: Nares patent, no circumoral cyanosis, no facial swelling NECK: Supple, trachea midline, painless cervical ROM. LUNGS/CHEST: Non-labored respirations, normal A/P diameter, symmetrical expansion, no chest wall deformity HEART (CV/PV): Regular rate, L radial pulse 2+, no peripheral edema, no JVD. ABDOMEN: Soft, non-distended, no guarding. MSK: Normal ROM, no swelling/deformity to bilateral UEs or LEs, moving all extremities without weakness, no cyanosis, spine midline without tenderness, normal curvature, tenderness to the sacrum and coccyx without crepitus, able to sit comfortably, left wrist has without deformity or ecchymosis, mild anatomical snuffbox tenderness, sensation intact in all fingers, rubber thread spooler strength 4+/5 due to pain, no proximal forearm tenderness NEURO: Mental Status AAOx4 - alert to person, place, time, events No facial droop, no forehead involvement. Motor: No focal weakness - strength 5/5 in bilateral UEs and LEs, proximal and distal, symmetric. Sensory: sensation intact to light touch globally. Gait normal: patient ambulated without ataxia into ED room. PSYCH: euthymic, cooperative, pleasant, appropriate speech Course Vital Signs Vital signs: Vital Signs Temperature 36.5 C 09/27/24 08:33 Pulse 86 09/27/24 08:33 Respiratory Rate 16 09/27/24 08:33 Blood Pressure 120/82 09/27/24 08:33 Pulse Oximetry 98 09/27/24 08:33 Temperature 36.5 C 09/27/24 08:33 Temperature Source Oral 09/27/24 08:33 Pulse 86 09/27/24 08:33 Respiratory Rate 16 09/27/24 08:33 Blood Pressure 120/82 09/27/24 08:33 Blood Pressure Position Sitting 09/27/24 08:33 Pulse Oximetry 98 09/27/24 08:33 Oxygen Delivery Method Room Air 09/27/24 08:33 Oxygen Flow Rate 0 09/27/24 08:33 Pain Level 8 09/27/24 08:41 Comment IBU and heat [employer], ice was very painful 09/27/24 08:33 Medical Decision Making This dictation utilizes [id number] dictation software and may contain unedited grammatical errors. 49 year-old female presents to ED today by POV/ambulating with a chief complaint of fall backwards this morning on icy steps landing on her left wrist, having pain to tailbone. Quality described as mild tingling to the fingers of the left hand, patient [id number], no radiation to urinary retention, bowel incontinence, saddle anesthesia, deformity, gross deformity, bruising. Severity is described as 8/10. Palliating factors include nothing specific attempted. Provoking factors include nothing specific. Patients' medical history: Patient has ongoing workup for tremor for the past year with primary care, arthralgia. Family and social history: Noncontributory. Pertinent exam findings / vital signs include tenderness to the sacrum and coccyx without crepitus, able to sit comfortably, left wrist has without deformity or ecchymosis, mild anatomical snuffbox tenderness, sensation intact in all fingers, rubber thread spooler strength 4+/5 due to pain, no proximal forearm tenderness. Differential / pathologies of concern include fracture, sprain, contusion. Diagnostic studies of: -XR L wrist, CT sacrum and coccyx without. -No acute fractures Interventions of: -Volar wrist brace supplied. ED Course/Assessment/Plan: 49-year-old female suffered a slip and fall on icy steps this morning and has left wrist pain as well as tailbone pain, imaging is unremarkable for fracture she was supplied a volar wrist brace, recommend RICE therapy and therapeutic dosing of Tylenol and ibuprofen, follow-up with PCP, strict return criteria for any bowel or urinary changes. Findings not consistent with cauda equina, fracture, neurovascular compromise. Disposition of sacral contusion, sprain of left wrist. Patient verbalized understanding of the plan and return to ED criteria and engaged in shared decision making. Medical Records Medical records reviewed: Yes I reviewed the patient's medical records. Imaging Data Radiologic Study: Attestation: I personally reviewed and interpreted this imaging study as follows: Imaging: X-Ray Radiologist's impression: EXAM: XR WRIST LT COMP NAVICULAR CLINICAL HISTORY: L wrist pain. TECHNIQUE: 2D digital imaging was performed. Three views. COMPARISON: CR XR WRIST LT COMPLETE from 09/19/2022 FINDINGS: BONES: No acute fracture is present. No bony destructive lesion is seen. JOINTS: The carpal bones are normally aligned. SOFT TISSUE: Normal. IMPRESSION: Unremarkable radiographs of the left wrist. Radiologic Study #2: Attestation: I personally reviewed and interpreted this imaging study as follows: Imaging: CT Scan Radiologist's impression: EXAM: CT SACRUM AND COCCYX WO CLINICAL HISTORY: fall, tailbone pain. TECHNIQUE: Imaging Protocol: Axial computed tomography images with coronal and sagittal reformatted images were created and reviewed. CONTRAST MATERIAL: Noncontrast COMPARISON: None. FINDINGS: Bones: The last intervertebral disc space is designated the L5/S1 level for the numbering purpose of this examination. No evidence of fracture. Alignment is satisfactory. No fracture is seen. L5-S1: No disc herniations or bulges are present. Sacrum: No visible fracture. The visualized SI joints and sacrum are will maintained. Coccyx: No visible fracture. Soft Tissues: The paraspinal soft tissues are unremarkable. Sigmoid diverticulosis. IMPRESSION: Normal CT examination of the Sacrum Coccyx. Quality:SDOH Health Related Social Needs: No Data to Display PFSH All Active Problems (Updated 09/27/24 @ 11:01 by RICHARD Patrick) Sacral contusion (Acute) Sprain of left wrist (Acute) Colitis (Acute) Abdominal mass, LUQ (left upper quadrant) (Acute) Glucosuria (Acute) Celiac artery stenosis (Acute) per CT Dental infection (Acute) Seborrheic keratosis (Acute) Vitamin D deficiency (Acute) Altered gait (Acute) Hematoma (Acute) Upper back pain (Acute) Neck pain (Acute) Mass in neck (Acute) Periodic heart flutter (Acute) S/P partial gastrectomy (Acute) Syncope (Chronic) Hypochromic anemia (Acute) check CBC and ferritin q6-12m, refer back to hem/onc for iron transfusion for ferritin <30 BPPV (benign paroxysmal positional vertigo) (Acute) Restless legs (Acute) Elevated LFTs (Acute) Arthralgia (Acute) Microcytosis (Acute) Left wrist pain (Acute) Left upper arm pain (Acute) Painful lumpy right breast (Acute) Hx of endometriosis (Acute) Labial cyst (Acute) Right, 1 cm Pelvic pain (Acute) Medical History Urinary tract infection Obesity Gastroparesis Low back pain Hemorrhoids Anxiety about health Mild episode of recurrent major depressive disorder PTSD (post-traumatic stress disorder) Hx of colonic polyp Hiatal hernia with GERD Barretts esophagus with dysplasia Tibial plateau fracture, left orif, metal in left tibia UTI (urinary tract infection) Left flank pain Chronic bladder pain Surgical History H/O right breast biopsy Hx of knee surgery Hx of hysterectomy History of esophagogastroduodenoscopy (EGD) History of cholecystectomy History of partial gastrectomy History of Magdaleno fundoplication History of laparoscopy Hx of section H/O hysterectomy with oophorectomy Unilateral oophorectomy for endometriosis Family History Mother , 75 Cancer Cervical Depression Heart disease Hyperlipidemia Stroke Father , 81 Diabetes Hypertension Brother , 51 Heart disease Hyperlipidemia Stroke Brother Heart disease Hyperlipidemia Hypertension Son No problems noted. Son No problems noted. Maternal Grandfather , 77 Cancer Lung Diabetes Heart disease Stroke Paternal Grandfather , 75 Diabetes Heart disease Hypertension Maternal Grandmother , 63 Cancer Breast Diabetes Stroke Paternal Grandmother , 76 Cancer Ovarian Heart disease Hypertension Stroke Social History (Updated 08/23/24 @ 08:41 by Kianna Preston) Smoking/Tobacco Use Status: Former Tobacco Use tobacco type: cigarettes Quit Date: 09/15/94 Tobacco: How many years used: 20 Second Hand Exposure: Yes Smoking risk assessment performed?: Yes Alcohol Intake: current Alcohol Intake frequency: holidays/special occasions only Alcohol type: wine Drug use: Never Substance use type: does not use Adopted: No Household members: spouse and children Housing: house Number of Children: 4 number of grandchildren: 6 Communication Needs: None Education Level: college 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 Pets and animals: Yes Pets and animals: cat(s), dog(s) and horse(s) Sexually active: Yes Do you think of yourself as: straight/heterosexual Current gender identity: female What is your relationship status?: How often do you talk on the phone with friends or family?: twice per week How often do you get together with friends or relatives?: twice per week How often do you attend mormon or rastafarian services?: 1-3 times per year Do you belong to any clubs or organized social groups?: no Panel score (0-1 are the most socially isolated patients): 2 What type of physical activity do you participate in: walking Duration: 15-30 minutes/day Frequency: 3-4 times per week Radha/Taoism: Non mosque Special radha needs: No Seatbelt use: always Helmet use: Yes Helmet use: always Drive intox or ride w/intox fleet 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
--- NOTE | 2024-09-27 09:00 | DI.CT_ITS ---
Exam(s) CT SACRUM AND COCCYX WO EXAM: CT SACRUM AND COCCYX WO CLINICAL HISTORY: fall, tailbone pain. TECHNIQUE: Imaging Protocol: Axial computed tomography images with coronal and sagittal reformatted images were created and reviewed. CONTRAST MATERIAL: Noncontrast COMPARISON: None. FINDINGS: Bones: The last intervertebral disc space is designated the L5/S1 level for the numbering purpose of this examination. No evidence of fracture. Alignment is satisfactory. No fracture is seen. L5-S1: No disc herniations or bulges are present. Sacrum: No visible fracture. The visualized SI joints and sacrum are will maintained. Coccyx: No visible fracture. Soft Tissues: The paraspinal soft tissues are unremarkable. Sigmoid diverticulosis. IMPRESSION: Normal CT examination of the Sacrum Coccyx. RADIATION DOSE DELIVERED: 290.34mGy.cm Total DLP DATA REPOSITORY: All CT scans at this facility are submitted to the National Radiology Data Registry (NRDR) Dose Index Registry (DIR) with the [employer] (ACR). RADIATION OPTIMIZATION: All CT scans at this facility use at least one of these dose optimization te chniques: automated exposure control; mA and/or kV adjustment per patient size (includes targeted exa ms where dose is matched to clinical indication); or iterative reconstruction.
--- NOTE | 2024-09-27 09:00 | DI.RAD_ITS ---
Exam(s) XR WRIST LT COMP NAVICULAR EXAM: XR WRIST LT COMP NAVICULAR CLINICAL HISTORY: L wrist pain. TECHNIQUE: 2D digital imaging was performed. Three views. COMPARISON: CR XR WRIST LT COMPLETE from 09/19/2022 FINDINGS: BONES: No acute fracture is present. No bony destructive lesion is seen. JOINTS: The carpal bones are normally aligned. SOFT TISSUE: Normal. IMPRESSION: Unremarkable radiographs of the left wrist. DATA REPOSITORY: RADIATION DOSE DELIVERED:
[2024-09-27] MEDS: Acetaminophen 500 MG TAB 1000 MG PO (09:41)
[2024-09-27] MEDS: oxyCODONE 5 MG TAB PO (09:41)
[2024-09-27 11:22] VITALS: BP 126/79; PULSE 77; RESP 16; O2SAT 98
== END 2024-09-27 11:24 | disposition home or self-care (01) ==
PROVIDERS: Emergency Provider Physician Assistant; PCP Nurse Practitioner Family
DX: S30.0XXA Contusion of lower back and pelvis, initial encounter (principal); S63.502A Unspecified sprain of left wrist, initial encounter; W00.0XXA Fall on same level due to ice and snow, initial encounter; Z87.891 Personal history of nicotine dependence
CPT/HCPCS: 29125; 99284; 72192; 73110

== ENCOUNTER 2024-10-13 02:43 | Outpatient (CLI) | payer BC, SELFPAY ==
--- NOTE | 2024-10-13 13:23 | DI.RAD_ITS ---
Exam(s) XR WRIST LT COMP NAVICULAR EXAM: XR WRIST LT COMP NAVICULAR CLINICAL HISTORY: severe pain,SPRAIN LT WRIST,S63.502A. TECHNIQUE: 2D digital imaging was performed of the left wrist. Four images were obtained. Scaphoid , PA, oblique and lateral views were obtained. COMPARISON: CR XR WRIST LT COMP NAVICULAR from 09/27/2024 FINDINGS: BONES: There is a cortical deformity at the posterior aspect of the distal metaphysis of the left rad ius on the lateral view consistent with a nondisplaced fracture. No bony destructive lesion is seen. JOINTS: The carpal bones are normally aligned. SOFT TISSUE: Normal. IMPRESSION: Nondisplaced fracture involving the posterior cortex of the distal left radial metaphysis. This is b est appreciated on the lateral view. DATA REPOSITORY: RADIATION DOSE DELIVERED:
== END 2024-10-13 03:03 ==
LOC: DI 02:43
PROVIDERS: PCP Nurse Practitioner Family; Visit Provider Nurse Practitioner Family
DX: S52.515D Nondisplaced fracture of left radial styloid process, subsequent encounter for closed fracture with routine healing (principal); X58.XXXD Exposure to other specified factors, subsequent encounter
CPT/HCPCS: 73110

== ENCOUNTER 2024-11-10 15:05 | Outpatient (CLI) | payer BC, SELFPAY ==
--- NOTE | 2024-11-10 14:45 | DI.RAD_ITS ---
Exam(s) XR WRIST LT LIMITED EXAM: XR WRIST LT LIMITED CLINICAL HISTORY: F/U FRACTURE. TECHNIQUE: 2D digital imaging was performed. Three views. COMPARISON: CR XR WRIST LT COMP NAVICULAR from 09/27/2024 CR XR WRIST LT COMP NAVICULAR from 10/13/2024 FINDINGS: BONES: There is an area of sclerosis seen extending transversely in the distal radius consistent with healing of a hairline fracture. No bony destructive lesion is seen. JOINTS: The carpal bones are normally aligned. SOFT TISSUE: Normal. IMPRESSION: Healing nondisplaced distal radial fracture. DATA REPOSITORY: RADIATION DOSE DELIVERED:
== END 2024-11-10 15:06 | disposition home or self-care (01) ==
LOC: DIORS 15:06
PROVIDERS: PCP Nurse Practitioner Family; Visit Provider Student in an Organized Health Care Education/Training Program
DX: S52.592D Other fractures of lower end of left radius, subsequent encounter for closed fracture with routine healing (principal); X58.XXXD Exposure to other specified factors, subsequent encounter
CPT/HCPCS: 73100

== ENCOUNTER 2025-02-24 14:55 | Outpatient (REF) | payer BC, SELFPAY ==
[2025-02-24 16:32] LABS: Creatinine,Urine 101.63 mg/dL
[2025-02-24 16:36] LABS: Creatinine,24hr Ur 0.81 g/24hr (0.60-1.80); Total Volume 850 ml
[2025-02-25 08:57] LABS: Calcium Urine 7.2 mg/dL (See Note); Calcium Urine 24 hr 61 mg/24hr (100-300); Timed Urine Volume 850 mL
== END 2025-02-24 14:56 | disposition home or self-care (01) ==
LOC: LBN 14:55
PROVIDERS: PCP Nurse Practitioner Family; Visit Provider Internal Medicine Endocrinology, Diabetes & Metabolism
DX: Z98.84 Bariatric surgery status (principal); M83.9 Adult osteomalacia, unspecified; M81.0 Age-related osteoporosis without current pathological fracture
CPT/HCPCS: 81050; 82340; 82570

== ENCOUNTER 2025-02-24 15:42 | Outpatient (CLI) | payer BC, SELFPAY ==
[2025-02-24 15:51] LABS: Vitamin D 25 Total 13 ng/mL (30-100)
== END 2025-02-24 15:43 | disposition home or self-care (01) ==
LOC: LBO 15:42
PROVIDERS: PCP Nurse Practitioner Family; Visit Provider Internal Medicine Endocrinology, Diabetes & Metabolism
DX: E55.9 Vitamin D deficiency, unspecified (principal)
CPT/HCPCS: 36415; 82306

== ENCOUNTER 2025-03-15 17:40 | Observation (INO) | payer BC, SELFPAY ==
[2025-03-15] VITALS (28 sets, daily range): BP systolic 88–145; BP diastolic 54–84; PULSE 61–104; RESP 11–20; TEMP 36.7; O2SAT 92–99
--- NOTE | 2025-03-15 18:00 | DI.CT_ITS ---
Exam(s) CT CHEST WO EXAM: CT CHEST WO CLINICAL HISTORY: L lower rib pain frm trauma TECHNIQUE: Imaging Protocol: Axial computed tomography images with coronal and sagittal reformatted images were created and reviewed. Computer aided detection (CAD) was utilized. CONTRAST MATERIAL: Noncontrast COMPARISON: CT CT CHEST WO from 09/27/2022 FINDINGS: Pulmonary parenchyma: No consolidation. No dominant measurable mass. Tracheobronchial tree: No bronchiectasis or mucous plugging. Mediastinum and Edie: No dominant adenopathy or fluid collection. Pleura: No effusion. No pneumothorax. Heart: The heart is not dilated. No coronary artery calcifications are seen. Aorta: Thoracic aorta non-dilated. No atherosclerotic changes. Upper abdomen: No acute findings. Bones: Lower ribs not included on the exam. No rib or spine fractures are identified. Soft tissues: Unremarkable. IMPRESSION: No acute abnormality. The preliminary [facility] report was reviewed. RADIATION DOSE DELIVERED: 111.77mGy.cm Total DLP DATA REPOSITORY: All CT scans at this facility are submitted to the National Radiology Data Registry (NRDR) Dose Index Registry (DIR) with the [employer] (ACR). RADIATION OPTIMIZATION: All CT scans at this facility use at least one of these dose optimization techniques: automated exposure control; mA and/or kV adjustment per patient size (includes targeted exams where dose is matched to clinical indication); or iterative reconstruction.
--- NOTE | 2025-03-15 18:00 | DI.CT_ITS ---
Exam(s) CT ABDOMEN PELVIS W EXAM: CT ABDOMEN PELVIS W CLINICAL HISTORY: UTI symptoms, nausea, R flank pain. TECHNIQUE: Imaging Protocol: Axial computed tomography images with coronal and sagittal reformatted images were created and reviewed CONTRAST MATERIAL: Intravenous: Omnipaque 350 Contrast volume:75 ml Oral: no COMPARISON: CT CT ABDOMEN PELVIS W from 09/09/2024 FINDINGS: ABDOMEN and PELVIS: Lung Bases: No acute findings. Liver: Normal density. No suspicious mass. Gallbladder and biliary tract: Cholecystectomy. No biliary dilation. Pancreas: Normal density. No abnormal calcifications or inflammatory process. No evidence of mass. Spleen: Normal. Kidneys: Normal size, contour and axis. No radiodense stones. No obstructive uropathy. No suspicious masses seen. Normal perfusion. No CT evidence of pyelonephritis. Adrenal glands: No masses seen. Vasculature: Abdominal aorta non-dilated. Soft tissues: Unremarkable. Bladder: No empty. Not well evaluated. Bowel: Suture material at stomach. No obstruction. No bowel wall thickening. The appendix shows high density material but is otherwise normal. No abnormal appendiceal dilatation or surrounding inflammation. Mild diverticulosis of the sigmoid and descending colon these areas of the colon are free of stool. Peritoneal cavity: No ascites. No focal collection. No mesenteric inflammatory response. No free air. Bones: Unremarkable for age. No evidence of lower rib, spine or pelvic fractures. Reproductive organs: Hysterectomy. Lymph nodes: No pathologically enlarged lymph nodes. IMPRESSION:: No acute abnormality in the abdomen or pelvis. The preliminary [facility] report was reviewed. RADIATION DOSE DELIVERED: 379.79mGy.cm Total DLP DATA REPOSITORY: All CT scans at this facility are submitted to the National Radiology Data Registry (NRDR) Dose Index Registry (DIR) with the [employer] (ACR). RADIATION OPTIMIZATION: All CT scans at this facility use at least one of these dose optimization techniques: automated exposure control; mA and/or kV adjustment per patient size (includes targeted exams where dose is matched to clinical indication); or iterative reconstruction.
--- NOTE | 2025-03-15 18:04 | ED.GENADUL_ITS ---
Discharge Plan Disposition Patient Disposition: Admit to [facility] Condition: Stable Discharge Details Clinical Impression: Appendicolith, Intractable abdominal pain Primary Care Provider: Mike Rivas ED Provider: Kervin Spencer Home Meds and New Rx's Prescriptions: No Action albuterol sulfate [Proventil HFA] 90 mcg/actuation HFA aerosol inhaler 2 puff inhalation Q6H PRN (Reason: shortness of breath or wheezing) Qty: 8.5 0RF epinephrine 0.3 mg/0.3 mL auto-injector 0.3 mg IM ONCE Qty: 2 0RF Rx Instructions: as a single dose; may repeat once ibuprofen 800 mg tablet 800 mg PO Q8H PRN (Reason: pain) Qty: 20 0RF propranolol 20 mg tablet 20 mg PO TID PRN (Reason: anxiety) Qty: 90 0RF buspirone 5 mg tablet 5 mg PO TID Qty: 90 0RF ferrous sulfate [Feosol] 325 mg (65 mg iron) tablet 325 mg PO QID pantoprazole 40 mg tablet,delayed release (DR/EC) 40 mg PO BID semaglutide (weight loss) 1 mg/0.5 mL pen injector 0.5 mg subcut QWEEK Qty: 2 12RF Rx Instructions: Increase dose, add cyanocobalamin. Patient requires additional drug compenent to decrease risk of side effects. OK to compound. ergocalciferol (vitamin D2) 1,250 mcg (50,000 unit) capsule 1,250 mcg PO DAILY ondansetron 4 mg tablet,disintegrating 4 mg PO Q6H PRN (Reason: nausea and vomiting) Qty: 20 0RF HPI General Date/Time Provider Initiated Documentation: 03/15/25 17:45 . HPI Narrative: 49 year-old female presents to ED today by POV/ambulating with her with a chief complaint of multiple complaints- was at a horse show and maybe injured lower L rib on a saddle, but also feels abdominal pain similar to prior episode of UTI with onset over the past day or two, with some nausea and vomiting and diarrhea. Quality described as severe lower abdominal pain, no radiation to fever, dysuria, endorses bilateral flank pain, denies chest pain/shortness of breath. Severity is described as 10/10. Palliating factors include nothing helping, Tylenol etc. Provoking factors include nothing specific. Events leading up to the incident/Associated Symptoms: Patient has history of gastric bypass, and hysterectomy. Patient not anticoagulated. Related Data Home Medications ?Medication ?Instructions ?Recorded ?Confirmed ferrous sulfate 325 mg (65 mg 325 mg PO QID 03/11/23 0 03/15/25 iron) tablet (Feosol) pantoprazole 40 mg tablet,delayed 40 mg PO BID 4 03/15/25 release albuterol sulfate 90 mcg/actuation 2 puff inhalation Q 6H PRN 02/16/24 03/15/25 aerosol inhaler (Proventil HFA) shortness of breath or wheezing #8.5 grams epinephrine 0.3 mg/0.3 mL 0.3 mg (0.3 mL) IM ONCE #2 e a 02/16/24 03/15/25 injection, auto-injector ibuprofen 800 mg tablet 800 mg PO Q8H PRN pain #20 t abs 06/24/24 03/15/25 ergocalciferol (vitamin D2) 1,250 1,250 mcg PO DAILY 1 10/16/23 03/15/25 mcg (50,000 unit) capsule ondansetron 4 mg disintegrating 4 mg PO Q6H PRN nausea and 08/15/24 03/15/25 tablet vomiting #20 tabs propranolol 20 mg tablet 20 mg PO TID PRN anxiety #90 tabs 11/22/24 03/15/25 Held on 03/15/25. Instructions: Pt Stopped/Never Started buspirone 5 mg tablet 5 mg PO TID #90 tabs 5 03/15/25 semaglutide (weight loss) 1 mg/0.5 0.5 mg (0.25 mL) franco bcut QWEEK #2 mL 02/28/25 03/15/25 mL subcutaneous pen injector Previous Rx's ?Medication ?Instructions ?Recorded albuterol sulfate 90 mcg/actuation 2 puff inhalation Q 6H PRN 02/16/24 aerosol inhaler (Proventil HFA) shortness of breath or wheezing #8.5 grams epinephrine 0.3 mg/0.3 mL 0.3 mg (0.3 mL) IM ONCE #2 e a 02/16/24 injection, auto-injector ibuprofen 800 mg tablet 800 mg PO Q8H PRN pain #20 t abs 06/24/24 ondansetron 4 mg disintegrating 4 mg PO Q6H PRN nausea and 08/15/24 tablet vomiting #20 tabs propranolol 20 mg tablet 20 mg PO TID PRN anxiety #90 tabs 11/22/24 Held on 03/15/25. Instructions: Pt Stopped/Never Started buspirone 5 mg tablet 5 mg PO TID #90 tabs 5 semaglutide (weight loss) 1 mg/0.5 0.5 mg (0.25 mL) franco bcut QWEEK #2 mL 02/28/25 mL subcutaneous pen injector Allergies Allergy/AdvReac Type Severity Reaction Status Date / Time bupropion (From Wellbutrin) Allergy Severe Pt states Verified 03/15/25 17:46 serum sickness onion Allergy Severe Anaphylaxis Verified 03/15/25 17:46 escitalopram AdvReac Intermediate Agitation Verified 03/15/25 17:46 General Stated Complaint: Abd Prob NINFA: 3 Review of Systems All systems reviewed & are unremarkable except as noted in HPI and below Exam Narrative Exam Narrative: GENERAL APPEARANCE: Well-nourished, non-toxic, awake and alert, atraumatic, moderate acute distress. SKIN: Warm, pink, dry, intact, without rashes/lesions/ulcerations. HEAD: Normocephalic, atraumatic, normal hair distribution for gender/age. EYES: Normal conjunctiva, no exudates on lids/lashes. ENT: Nares patent, no circumoral cyanosis, no facial swelling NECK: Supple, trachea midline, painless cervical ROM. LUNGS/CHEST: Lungs CTA, non-labored respirations, normal A/P diameter, symmetrical expansion, no chest wall deformity HEART (CV/PV): Regular rate and rhythm without murmur, no peripheral edema, no JVD. ABDOMEN: Soft, non-distended, no guarding, diffuse lower abdominal tenderness with rebound tenderness, R CVA tenderness to percussion- re-exam shows McBurney's point tenderness with guarding and rebound tenderness. MSK: Normal ROM, no swelling/deformity to bilateral UEs or LEs, moving all extremities without weakness, no cyanosis, spine midline without tenderness, normal curvature. NEURO: Mental Status AAOx4 - alert to person, place, time, events No facial droop, no forehead involvement. Motor: No focal weakness - strength 5/5 in bilateral UEs and LEs, proximal and distal, symmetric. Sensory: sensation intact to light touch globally. Gait normal: patient ambulated without ataxia into ED room. PSYCH: euthymic, cooperative, pleasant, appropriate speech Course Vital Signs Vital signs: Vital Signs Temperature 36.7 C 03/15/25 17:42 Pulse 104 H 03/15/25 17:42 Respiratory Rate 18 03/15/25 17:42 Blood Pressure 117/84 03/15/25 17:42 Pulse Oximetry 94 03/15/25 17:42 Temperature 36.7 C 03/15/25 17:42 Pulse 104 H 03/15/25 17:42 Respiratory Rate 18 03/15/25 17:42 Blood Pressure 117/84 03/15/25 17:42 Pulse Oximetry 94 03/15/25 17:42 Oxygen Delivery Method Room Air 03/15/25 17:42 Oxygen Flow Rate 0 03/15/25 17:42 Pain Level 10 03/15/25 17:42 Medical Decision Making This dictation utilizes [id number] dictation software and may contain unedited grammatical errors. 49 year-old female presents to ED today by POV/ambulating with her with a chief complaint of multiple complaints- was at a horse show and maybe injured lower L rib on a saddle, but also feels abdominal pain similar to prior episode of UTI with onset over the past day or two, with some nausea and vomiting and diarrhea. Quality described as severe lower abdominal pain, no radiation to fever, dysuria, endorses bilateral flank pain, denies chest pain/shortness of breath. Severity is described as 10/10. Palliating factors include nothing helping, Tylenol etc. Provoking factors include nothing specific. Events leading up to the incident/Associated Symptoms: Patient has history of gastric bypass, and hysterectomy. Patients' medical history: Gastroparesis, hiatal hernia with GERD, Queen's esophagus, history of partial gastrectomy, status post cholecystectomy, status post hysterectomy with nephrectomy, celiac artery stenosis. Family and social history: Noncontributory, eating normal diet. Pertinent exam findings / vital signs include right CVA tenderness to percussion, diffuse lower abdominal tenderness- after doses of morphine, localized to McBurney's point tenderness, benign cardiopulmonary exam. Differential / pathologies of concern include UTI, pyelonephritis, gastroenteritis, SBO, gastroparesis, appendicitis, volvulus, rib fracture Diagnostic studies of: - CBC, CMP, lactate, lipase, magnesium, UA, blood cultures, CT ABD/pelvis with contrast, CT chest without contrast. - CBC benign - CMP without actionable abnormality - Lipase negative - Magnesium within normal limits - Lactate negative - UA benign - Blood cultures pending - CT chest shows no acute abnormality, does show heterogeneous attenuation from air trapping disease in the lungs, no mass - CT abdomen pelvis shows an appendicolith, bladder wall thickening, diffuse enterocolitis *added C. difficile test, pending at obs admit Interventions of: -1g IV APAP, 15mg IVP ketorolac, 6mg IVP morphine x1, 4mg IVP morphine x1, 2L IVF NS. -Consulted with Gen Surg Dr. Prado, OBS is an option for consult qAM due to her pain control requirement- patient agrees. Dr Leahy accepted at 2202. ED Course/Assessment/Plan: 49-year-old female presents with severe lower abdominal pain, after significant analgesia and reexamination she is still very tender at McBurney's point, there is concern with a calcification in her appendix but no periappendiceal inflammation seen on CT. Her CBC is benign, UA is negative even with bladder wall thickening on CT, I discussed all these findings with the patient she is wary to return home as the pain is significant and she is requiring multiple doses of morphine. Dr. Leahy excepted for admission, Dr. Prado can consult on her in the morning. Findings not consistent with overt appendicitis, SBO, volvulus, mesenteric isch emia, obstructive uropathy, pyelonephritis. Disposition of Appendicolith, Intractable Abdominal Pain. Patient verbalized understanding of the plan and return to ED criteria and engaged in shared decision making. Medical Records Medical records reviewed: Yes I reviewed the patient's medical records. Imaging Data Radiologic Study: Attestation: I personally reviewed and interpreted this imaging study as follows: Imaging: CT Scan Radiologist's impression: Exam: CT Abdomen And Pelvis With Contrast Exam date and time: 03/15/2025 7:24 PM Age: 49 years old Clinical indication: Prior surgery; Surgery date: 6+ months; Surgery type: Hysterectomy, cholecystectomy, magdaleno procedure; Nausea, R flank pain, UTI symptoms TECHNIQUE: Imaging protocol: Computed tomography of the abdomen and pelvis with contrast. Radiation optimization: All CT scans at this facility use at least one of these dose optimization techniques: automated exposure control; mA and/or kV adjustment per patient size (includes targeted exams where dose is matched to clinical indication); or iterative reconstruction. Contrast material: OMNIPAQUE 350; Contrast volume: 75 ml; Contrast route: INTRAVENOUS (IV); COMPARISON: CT ABDOMEN PELVIS W 09/09/2024 2:50 PM FINDINGS: Lungs: There is heterogeneous attenuation of the pulmonary parenchyma, consistent with air trapping from underlying small airways disease. The lungs are otherwise normal. Pleural spaces: There is no evidence of pneumothorax. There are no pleural effusions present. Heart: The cardiac structures are normal. Liver: Normal. No mass. Gallbladder and biliary ducts: There has been a cholecystectomy. There is mild intrahepatic biliary dilation. Pancreas: Normal. No ductal dilation. Spleen: The spleen is normal. Adrenal glands: Normal. No mass. Kidneys and ureters: The kidneys are normal. Stomach and bowel: Surgical changes at the gastroesophageal junction consistent with Magdaleno fundoplication. Mild thickening of the distal gastric and proximal duodenal wall may represent mild gastroduodenitis. Mild diverticulosis is present in the sigmoid and descending colon. There is no evidence of diverticulitis. There are diffuse fluid filled loops of small bowel and colon with scattered air fluid levels. The bowel loops are mildly distended. No associated small bowel wall thickening or inflammatory changes. Mild thickening of the descending colon. No evidence of obstruction. Findings most consistent with diffuse enterocolitis. There is no evidence of intestinal obstruction. Appendix: There is focal intraluminal appendiceal calcification, an otherwise normal appendix is identified. There is no evidence of distention or periappendiceal inflammation to suggest appendicitis. Intraperitoneal space: There is no free intraperitoneal air. There is no evidence of free intraperitoneal or pelvic fluid. Vasculature: The aorta shows mild atherosclerosis but otherwise is unremarkable without evidence of significant atherosclerosis or aneurysmal disease. The peripheral arterial vascular system visualized is unremarkable. The portal venous system visualized is unremarkable. The peripheral venous vascular system visualized is unremarkable. Lymph nodes: There is no evidence of lymphadenopathy. Urinary bladder: There is nonspecific bladder wall thickening. This may be related to incomplete bladder filling. Reproductive: There has been a hysterectomy. No adnexal cysts or masses are identified. Bones/joints: The skeletal structures and soft tissues show no evidence of fracture or other acute processes. Soft tissues: The extra-abdominal soft tissues are normal. IMPRESSION: 1. Mild thickening of the distal gastric and proximal duodenal wall may represent mild gastroduodenitis. There are diffuse fluid filled loops of small bowel and colon with scattered air fluid levels. The bowel loops are mildly distended. No associated small bowel wall thickening or inflammatory changes. Mild thickening of the descending colon. No evidence of obstruction. Findings most consistent with diffuse enterocolitis. 2. There is heterogeneous attenuation of the pulmonary parenchyma, consistent with air trapping from underlying small airways disease. Dictated and Authenticated by: Fuad Zarate MD. Radiologic Study #2: Attestation: I personally reviewed and interpreted this imaging study as follows: Imaging: CT Scan Radiologist's impression: Exam: CT Chest Without Contrast; Diagnostic Exam date and time: 03/15/2025 7:19 PM Age: 49 years old Clinical indication: Left-sided; L lower rib pain after leaning over horse, heard a pop per PT TECHNIQUE: Imaging protocol: Diagnostic computed tomography of the chest without contrast. 3D rendering (Not supervised by radiologist): MIP and/or 3D reconstructed images were created by the technologist. Radiation optimization: All CT scans at this facility use at least one of these dose optimization techniques: automated exposure control; mA and/or kV adjustment per patient size (includes targeted exams where dose is matched to clinical indication); or iterative reconstruction. COMPARISON: CT CHEST WO 09/27/2022 8:04 AM FINDINGS: Lungs: Minimal atelectasis and scarring within the lung bases bilaterally. There is mild heterogeneous attenuation of the pulmonary parenchyma, consistent with mild air trapping from underlying small airways disease. Calcified granuloma at the left lower lobe of the lung. Pleural spaces: There is no evidence of pneumothorax. There are no pleural effusions present. Heart: Mild ground-glass opacity /scarring at the cardiophrenic angle no definitive mass identified. Low attenuation within the cardiac ventricular chambers may represent anemia. Coronary arteries: No evidence of coronary artery atherosclerotic plaque or calcification. Lymph nodes: There is no evidence of lymphadenopathy. Vasculature: The aorta demonstrates mild atherosclerotic calcification. Bones/joints: Please see CT of the abdomen.The skeletal structures and soft tissues show no evidence of fracture or other acute processes. Degenerative changes at the costovertebral articulations at T10 present bilaterally this may explain the patient's signs and symptoms. Soft tissues: The soft tissues of the extrathoracic region are unremarkable. IMPRESSION: 1. Degenerative changes at the costovertebral articulations at T10 present bilaterally this may explain the patient's signs and symptoms. 2. There is mild heterogeneous attenuation of the pulmonary parenchyma, consistent with mild air trapping from underlying small airways disease. 3. Mild ground-glass opacity /scarring at the cardiophrenic angle no definitive mass identified. Dictated and Authenticated by: Fuad Zarate MD. Lab Data Lab results reviewed: Yes I reviewed the patient's lab results. Labs: 03/15/25 21:00 Blood Blood Culture - Pending 03/15/25 21:00 Blood Blood Culture - Pending Laboratory Tests Range/Units 03/15/25 03/15/25 18:30 20:25 WBC (4.4-10.8) 10^3/uL 8.62 RBC (3.93-5.22) 10^6/uL 4.85 Hgb (11.2-15.7) g/dL 13.3 Hct (36.0-46.0) % 41.2 MCV (80-95) fL 85 MCH (27.0-33.0) pg 27.4 MCHC (32.0-36.0) % 32.3 RDW (11.7-14.6) % 12.2 Plt Count (130-400) 10^3/uL 264 MPV (8.0-11.0) fL 10.2 Immature Gran % % 0.1 Neutrophils % % 56.2 Lymphocytes % % 35.6 Monocytes % % 6.8 Eosinophils % % 1.0 Basophils % % 0.3 Nucleated RBC % (0.0-0.3) % 0.0 Absolute Neutrophils (1.2-6.7) 10^3/uL 4.83 Absolute Lymphocytes (1.2-3.4) 10^3/uL 3.07 Absolute Monocytes (0.1-0.8) 10^3/uL 0.59 Absolute Eosinophils (0.0-0.7) 10^3/uL 0.09 Absolute Basophils (0.0-0.2) 10^3/uL 0.03 VBG Lactate (<or=2.0) mmol/L 1.0 Sodium (136-145) mmol/L 143 Potassium (3.5-5.1) mmol/L 4.3 Chloride (98-107) mmol/L 104 Carbon Dioxide (21.0-32.0) mmol/L 32.4 H Anion Gap (3-11) mmol/L 6.6 BUN (7-18) mg/dL 11 Creatinine (0.55-1.02) mg/dL 0.8 Est GFR (CKD-EPI 2020) (mL/min/1.73m2) 89.71 Glucose (74-106) mg/dL 90 Calcium (8.5-10.1) mg/dL 9.5 Magnesium (1.8-2.4) mg/dL 2.3 Total Bilirubin (0.2-1.0) mg/dL 0.4 AST (15-37) U/L 27 ALT (14-59) U/L 45 Alkaline Phosphatase (46-116) U/L 121 H Total Protein (6.4-8.2) g/dL 7.6 Albumin (3.4-5.0) g/dL 4.1 Lipase (<78) U/L 73 Urine Color (Yellow) Yellow Urine Clarity (Clear) Clear Urine pH (5-8) 5.0 Ur Specific [place] (1.005-1.025) <= 1.005 Urine Protein (Neg-Trace) mg/dL Negative Urine Ketones (Negative) mg/dL Negative Urine Blood (Negative) Negative Urine Nitrite (Negative) Negative Urine Bilirubin (Negative) Negative Urine Urobilinogen (Up to 0.2) mg/dL 0.2 Ur Leukocyte Esterase (Negative) Negative Urine Glucose (Negative) mg/dL Negative PFSH All Active Problems (Updated 03/15/25 @ 22:06 by RICHARD Patrick) Intractable abdominal pain (Acute) Appendicolith (Acute) Acute stress reaction (Acute) Closed fracture of metaphysis of distal end of left radius (Acute 09/27/24) Osteomalacia (Acute) Abdominal mass, LUQ (left upper quadrant) (Acute) Glucosuria (Acute) Celiac artery stenosis (Acute) per CT Dental infection (Acute) Seborrheic keratosis (Acute) Vitamin D deficiency (Acute) Altered gait (Acute) Hematoma (Acute) Upper back pain (Acute) Neck pain (Acute) Mass in neck (Acute) Periodic heart flutter (Acute) S/P partial gastrectomy (Acute) Syncope (Chronic) Hypochromic anemia (Acute) check CBC and ferritin q6-12m, refer back to hem/onc for iron transfusion for ferritin <30 BPPV (benign paroxysmal positional vertigo) (Acute) Restless legs (Acute) Elevated LFTs (Acute) Arthralgia (Acute) Microcytosis (Acute) Left wrist pain (Acute) Left upper arm pain (Acute) Painful lumpy right breast (Acute) Hx of endometriosis (Acute) Labial cyst (Acute) Right, 1 cm Pelvic pain (Acute) Medical History Urinary tract infection Obesity Gastroparesis Low back pain Hemorrhoids Anxiety about health Mild episode of recurrent major depressive disorder PTSD (post-traumatic stress disorder) Hx of colonic polyp Hiatal hernia with GERD Barretts esophagus with dysplasia Tibial plateau fracture, left orif, metal in left tibia UTI (urinary tract infection) Left flank pain Chronic bladder pain Surgical History H/O right breast biopsy Hx of knee surgery Hx of hysterectomy History of esophagogastroduodenoscopy (EGD) History of cholecystectomy History of partial gastrectomy History of Magdaleno fundoplication History of laparoscopy Hx of section H/O hysterectomy with oophorectomy Unilateral oophorectomy for endometriosis Family History Mother , 75 Cancer Cervical Depression Heart disease Hyperlipidemia Stroke Father , 81 Diabetes Hypertension Brother , 51 Heart disease Hyperlipidemia Stroke Brother Heart disease Hyperlipidemia Hypertension Son No problems noted. Son No problems noted. Maternal Grandfather , 77 Cancer Lung Diabetes Heart disease Stroke Paternal Grandfather , 75 Diabetes Heart disease Hypertension Maternal Grandmother , 63 Cancer Breast Diabetes Stroke Paternal Grandmother , 76 Cancer Ovarian Heart disease Hypertension Stroke Social History Smoking/Tobacco Use Status: Former Tobacco Use tobacco type: cigarettes Quit Date: 09/15/94 Tobacco: How many years used: 20 Second Hand Exposure: Yes Smoking risk assessment performed?: Yes Alcohol Intake: current Alcohol Intake frequency: holidays/special occasions only Alcohol type: wine Drug use: Never Substance use type: does not use Adopted: No Household members: spouse and children Housing: house Number of Children: 4 number of grandchildren: 6 Communication Needs: None Education Level: college 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 Pets and animals: Yes Pets and animals: cat(s), dog(s) and horse(s) Sexually active: Yes Do you think of yourself as: straight/heterosexual Current gender identity: female What is your relationship status?: How often do you talk on the phone with friends or family?: twice per week How often do you get together with friends or relatives?: twice per week How often do you attend hoahaoism or restorationism services?: 1-3 times per year Do you belong to any clubs or organized social groups?: no Panel score (0-1 are the most socially isolated patients): 2 What type of physical activity do you participate in: walking Duration: 15-30 minutes/day Frequency: 3-4 times per week Radha/Nondenominational: Non temple Special radha needs: No Seatbelt use: always Helmet use: Yes Helmet use: always Drive intox or ride w/intox bobtail 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
[2025-03-15] MEDS: ACETAMINOPHEN 1,000 MG/100 ML BAG 400 MG IVPB (18:24)
[2025-03-15] MEDS: Ondansetron 4 MG/2 ML VIAL IVP (18:25)
[2025-03-15] MEDS: Ketorolac 15 MG/ML VIAL IVP (18:25)
[2025-03-15] MEDS: Normal Saline 1,000 ML 1000 ML IV ×2 (18:25→22:35)
[2025-03-15 18:38] LABS: Abs Immature Grans 0.01 10^3/uL (0.0-0.06); HCT 41.2 % (36.0-46.0); HGB 13.3 g/dL (11.2-15.7); Immature Grans % 0.1 %; MCH 27.4 pg (27.0-33.0); MCHC 32.3 % (32.0-36.0); MCV 85 fL (80-95); MPV 10.2 fL (8.0-11.0); Platelet Count 264 10^3/uL (130-400); RBC 4.85 10^6/uL (3.93-5.22); RDW 12.2 % (11.7-14.6); RDW-SD 37.3 fL; WBC 8.62 10^3/uL (4.4-10.8)
[2025-03-15 19:02] LABS: ALT 45 U/L (14-59); AST 27 U/L (15-37); Albumin 4.1 g/dL (3.4-5.0); Alkaline Phosphatase 121 U/L (46-116); Anion Gap 6.6 mmol/L (3-11); BUN 11 mg/dL (7-18); Bilirubin, Total 0.4 mg/dL (0.2-1.0); CO2 32.4 mmol/L (21.0-32.0); Calcium 9.5 mg/dL (8.5-10.1); Chloride 104 mmol/L (98-107); Estimated GFR 89.71 (mL/min/1.73m2); Glucose 90 mg/dL (74-106); Lipase 73 U/L (<78); Magnesium 2.3 mg/dL (1.8-2.4); Potassium 4.3 mmol/L (3.5-5.1); Sodium 143 mmol/L (136-145); Total Protein 7.6 g/dL (6.4-8.2)
[2025-03-15] MEDS: Normal Saline Flush 10 ML SYR IVP (19:18)
[2025-03-15] MEDS: Omnipaque 350 MG/ML 500 ML BTL-Imaging package IJ (19:19)
[2025-03-15] MEDS: Normal Saline - Diluent 50 ML VIAL IJ (19:20)
[2025-03-15] MEDS: MORPHine 10 MG/ML VIAL 6 MG IVP (20:20)
--- NOTE | 2025-03-15 20:29 | DI.VRAD_ITS ---
PROCEDURE INFORMATION: Exam: CT Abdomen And Pelvis With Contrast Exam date and time: 03/15/2025 7:24 PM Age: 49 years old Clinical indication: Prior surgery; Surgery date: 6+ months; Surgery type: Hysterectomy, cholecystectomy, anjel procedure; Nausea, R flank pain, UTI symptoms TECHNIQUE: Imaging protocol: Computed tomography of the abdomen and pelvis with contrast. Radiation optimization: All CT scans at this facility use at least one of these dose optimization techniques: automated exposure control; mA and/or kV adjustment per patient size (includes targeted exams where dose is matched to clinical indication); or iterative reconstruction. Contrast material: OMNIPAQUE 350; Contrast volume: 75 ml; Contrast route: INTRAVENOUS (IV); COMPARISON: CT ABDOMEN PELVIS W 09/09/2024 2:50 PM FINDINGS: Lungs: There is heterogeneous attenuation of the pulmonary parenchyma, consistent with air trapping from underlying small airways disease. The lungs are otherwise normal. Pleural spaces: There is no evidence of pneumothorax. There are no pleural effusions present. Heart: The cardiac structures are normal. Liver: Normal. No mass. Gallbladder and biliary ducts: There has been a cholecystectomy. There is mild intrahepatic biliary dilation. Pancreas: Normal. No ductal dilation. Spleen: The spleen is normal. Adrenal glands: Normal. No mass. Kidneys and ureters: The kidneys are normal. Stomach and bowel: Surgical changes at the gastroesophageal junction consistent with Anjel fundoplication. Mild thickening of the distal gastric and proximal duodenal wall may represent mild gastroduodenitis. Mild diverticulosis is present in the sigmoid and descending colon. There is no evidence of diverticulitis. There are diffuse fluid filled loops of small bowel and colon with scattered air fluid levels. The bowel loops are mildly distended. No associated small bowel wall thickening or inflammatory changes. Mild thickening of the descending colon. No evidence of obstruction. Findings most consistent with diffuse enterocolitis. There is no evidence of intestinal obstruction. Appendix: There is focal intraluminal appendiceal calcification, an otherwise normal appendix is identified. There is no evidence of distention or periappendiceal inflammation to suggest appendicitis. Intraperitoneal space: There is no free intraperitoneal air. There is no evidence of free intraperitoneal or pelvic fluid. Vasculature: The aorta shows mild atherosclerosis but otherwise is unremarkable without evidence of significant atherosclerosis or aneurysmal disease. The peripheral arterial vascular system visualized is unremarkable. The portal venous system visualized is unremarkable. The peripheral venous vascular system visualized is unremarkable. Lymph nodes: There is no evidence of lymphadenopathy. Urinary bladder: There is nonspecific bladder wall thickening. This may be related to incomplete bladder filling. Reproductive: There has been a hysterectomy. No adnexal cysts or masses are identified. Bones/joints: The skeletal structures and soft tissues show no evidence of fracture or other acute processes. Soft tissues: The extra-abdominal soft tissues are normal. IMPRESSION: 1. Mild thickening of the distal gastric and proximal duodenal wall may represent mild gastroduodenitis. There are diffuse fluid filled loops of small bowel and colon with scattered air fluid levels. The bowel loops are mildly distended. No associated small bowel wall thickening or inflammatory changes. Mild thickening of the descending colon. No evidence of obstruction. Findings most consistent with diffuse enterocolitis. 2. There is heterogeneous attenuation of the pulmonary parenchyma, consistent with air trapping from underlying small airways disease. Dictated and Authenticated by: Fuad Zarate MD. Orderin Tj Galeana MD
--- NOTE | 2025-03-15 20:37 | DI.VRAD_ITS ---
PROCEDURE INFORMATION: Exam: CT Chest Without Contrast; Diagnostic Exam date and time: 03/15/2025 7:19 PM Age: 49 years old Clinical indication: Left-sided; L lower rib pain after leaning over horse, heard a pop per PT TECHNIQUE: Imaging protocol: Diagnostic computed tomography of the chest without contrast. 3D rendering (Not supervised by radiologist): MIP and/or 3D reconstructed images were created by the technologist. Radiation optimization: All CT scans at this facility use at least one of these dose optimization techniques: automated exposure control; mA and/or kV adjustment per patient size (includes targeted exams where dose is matched to clinical indication); or iterative reconstruction. COMPARISON: CT CHEST WO 09/27/2022 8:04 AM FINDINGS: Lungs: Minimal atelectasis and scarring within the lung bases bilaterally. There is mild heterogeneous attenuation of the pulmonary parenchyma, consistent with mild air trapping from underlying small airways disease. Calcified granuloma at the left lower lobe of the lung. Pleural spaces: There is no evidence of pneumothorax. There are no pleural effusions present. Heart: Mild ground-glass opacity /scarring at the cardiophrenic angle no definitive mass identified. Low attenuation within the cardiac ventricular chambers may represent anemia. Coronary arteries: No evidence of coronary artery atherosclerotic plaque or calcification. Lymph nodes: There is no evidence of lymphadenopathy. Vasculature: The aorta demonstrates mild atherosclerotic calcification. Bones/joints: Please see CT of the abdomen.The skeletal structures and soft tissues show no evidence of fracture or other acute processes. Degenerative changes at the costovertebral articulations at T10 present bilaterally this may explain the patient's signs and symptoms. Soft tissues: The soft tissues of the extrathoracic region are unremarkable. IMPRESSION: 1. Degenerative changes at the costovertebral articulations at T10 present bilaterally this may explain the patient's signs and symptoms. 2. There is mild heterogeneous attenuation of the pulmonary parenchyma, consistent with mild air trapping from underlying small airways disease. 3. Mild ground-glass opacity /scarring at the cardiophrenic angle no definitive mass identified. Dictated and Authenticated by: Fuad Zarate MD. Orderin Tj Galeana MD
[2025-03-15 20:53] LABS: Glucose Negative (Negative)
[2025-03-15] MEDS: MORPHine 4 MG/ML SYR IVP (21:26)
--- NOTE | 2025-03-15 22:06 | W.PM.HP.N ---
Date of service: 03/15/25 Time of Service: 22:06 Assessment and Plan Assessment and plan (1) Intractable abdominal pain: Status: Acute Assessment and plan: -patient presenting with severe abdominal pain, nausea and vomiting -CBC without leukocytosis, no fevers, but abdominal tenderness at McBurneys point -CT abdo/pelvis showed enterocolitis and appenicolith -Gen Surg constulted, rec admit with consult in AM -patient required total of 10mg IV morphine in ED, will transition to 2mg IV dilaudid Q4hr PRN for pain -differential broad at this time, and includes but is not limited to c. diff (which is pending), appendicolith, celiac artery stenosis (seen on previous imaging), gastroporesis, or endometrosis (2) Enterocolitis: Status: Acute Assessment and plan: -as seen on CT -may be cause/contributing factor in severe abdominal pain -f/u c. diff results (3) Appendicolith: Status: Acute Assessment and plan: -as seen on CT -likely cause/contributing factor in abdomial pain -f/u with formal Gen Surg consult in AM (4) Celiac artery stenosis: Status: Acute Assessment and plan: -history of, as seen on previous imaging -may be contributing factor in abdomina pain as noted above (5) Hx of endometriosis: Status: Acute Assessment and plan: -s/p hysterectomy -may be contributing factor in abdomina pain as noted above History of Present Illness History of Present Illness Chief Complaint: abdominal pain Narrative: 49-year-old female with past medical history of endometriosis, colitis, celiac artery stenosis who presents to the emergency department severe abdominal pain. Patient states that he was at a horse show which initially thought she injured her left lower rib on the saddle but then had significantly uncontrollable abdominal pain that she describes similar to when she had a UTI. She also said this is associated with some nausea, vomiting and diarrhea, not the abdominal pain that did not radiate and was not associated with any lightheadedness, dizziness, chest pain or shortness of breath. In the emergency department patient was noted as having normal vital signs, physical exam significant for diffuse abdominal pain motor severe Kiarra's point. CBC and CMP were unremarkable but CT abdomen pelvis was obtained and showed mild thickening of the distal g gastric and proximal duodenal wall that may represent gastroduodenitis, and mild thickening of the descending colon most consistent with a diffuse enterocolitis. ED provider relayed to me that there is concern for calcification in the appendix which was discussed with general surgery who stated they will see patient in the morning. At which time emergency room provider paged hospitalist admission for patient with intractable abdominal pain. Review of Systems All systems reviewed & are unremarkable except as noted in HPI and below PFSH All Active Problems (Updated 03/15/25 @ 22:10 by Ovidio Leahy MD) Enterocolitis (Acute) Intractable abdominal pain (Acute) Appendicolith (Acute) Acute stress reaction (Acute) Closed fracture of metaphysis of distal end of left radius (Acute 09/27/24) Osteomalacia (Acute) Abdominal mass, LUQ (left upper quadrant) (Acute) Glucosuria (Acute) Celiac artery stenosis (Acute) per CT Dental infection (Acute) Seborrheic keratosis (Acute) Vitamin D deficiency (Acute) Altered gait (Acute) Hematoma (Acute) Upper back pain (Acute) Neck pain (Acute) Mass in neck (Acute) Periodic heart flutter (Acute) S/P partial gastrectomy (Acute) Syncope (Chronic) Hypochromic anemia (Acute) check CBC and ferritin q6-12m, refer back to hem/onc for iron transfusion for ferritin <30 BPPV (benign paroxysmal positional vertigo) (Acute) Restless legs (Acute) Elevated LFTs (Acute) Arthralgia (Acute) Microcytosis (Acute) Left wrist pain (Acute) Left upper arm pain (Acute) Painful lumpy right breast (Acute) Hx of endometriosis (Acute) Labial cyst (Acute) Right, 1 cm Pelvic pain (Acute) Medical History Urinary tract infection Obesity Gastroparesis Low back pain Hemorrhoids Anxiety about health Mild episode of recurrent major depressive disorder PTSD (post-traumatic stress disorder) Hx of colonic polyp Hiatal hernia with GERD Barretts esophagus with dysplasia Tibial plateau fracture, left orif, metal in left tibia UTI (urinary tract infection) Left flank pain Chronic bladder pain Surgical History H/O right breast biopsy Hx of knee surgery Hx of hysterectomy History of esophagogastroduodenoscopy (EGD) History of cholecystectomy History of partial gastrectomy History of Magdaleno fundoplication History of laparoscopy Hx of section H/O hysterectomy with oophorectomy Unilateral oophorectomy for endometriosis Family History Mother , 75 Cancer Cervical Depression Heart disease Hyperlipidemia Stroke Father , 81 Diabetes Hypertension Brother , 51 Heart disease Hyperlipidemia Stroke Brother Heart disease Hyperlipidemia Hypertension Son No problems noted. Son No problems noted. Maternal Grandfather , 77 Cancer Lung Diabetes Heart disease Stroke Paternal Grandfather , 75 Diabetes Heart disease Hypertension Maternal Grandmother , 63 Cancer Breast Diabetes Stroke Paternal Grandmother , 76 Cancer Ovarian Heart disease Hypertension Stroke Social History Smoking/Tobacco Use Status: Former Tobacco Use tobacco type: cigarettes Quit Date: 09/15/94 Tobacco: How many years used: 20 Second Hand Exposure: Yes Smoking risk assessment performed?: Yes Alcohol Intake: current Alcohol Intake frequency: holidays/special occasions only Alcohol type: wine Drug use: Never Substance use type: does not use Adopted: No Household members: spouse and children Housing: house Number of Children: 4 number of grandchildren: 6 Communication Needs: None Education Level: college 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 Pets and animals: Yes Pets and animals: cat(s), dog(s) and horse(s) Sexually active: Yes Do you think of yourself as: straight/heterosexual Current gender identity: female What is your relationship status?: How often do you talk on the phone with friends or family?: twice per week How often do you get together with friends or relatives?: twice per week How often do you attend pentecostal or congregational services?: 1-3 times per year Do you belong to any clubs or organized social groups?: no Panel score (0-1 are the most socially isolated patients): 2 What type of physical activity do you participate in: walking Duration: 15-30 minutes/day Frequency: 3-4 times per week Radha/Pentecostal: Non jehovah's witness Special radha needs: No Seatbelt use: always Helmet use: Yes Helmet use: always Drive intox or ride w/intox chair car 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 Meds Allergies and Home Medications Allergies Allergy/AdvReac Type Severity Reaction Status Date / Time bupropion (From Wellbutrin) Allergy Severe Pt states Verified 03/15/25 17:46 serum sickness onion Allergy Severe Anaphylaxis Verified 03/15/25 17:46 escitalopram AdvReac Intermediate Agitation Verified 03/15/25 17:46 Home Medications ?Medication ?Instructions ?Recorded ?Confirmed ?Type ferrous sulfate 325 mg (65 mg 325 mg PO QID 03/11/23 03/15/25 History iron) tablet (Feosol) pantoprazole 40 mg tablet,delayed 40 mg PO BID 10/20/23 03/15/25 History release albuterol sulfate 90 mcg/actuation 2 puff inhalation Q6H PRN 02/16/24 03/15/25 Rx aerosol inhaler (Proventil HFA) shortness of breath or wheezing #8.5 grams epinephrine 0.3 mg/0.3 mL 0.3 mg (0.3 mL) IM ONCE #2 ea 02/16/24 03/15/25 Rx injection, auto-injector ibuprofen 800 mg tablet 800 mg PO Q8H PRN pain #20 tabs 06/24/24 03/15/25 Rx ergocalciferol (vitamin D2) 1,250 1,250 mcg PO DAILY 08/15/24 03/15/25 History mcg (50,000 unit) capsule ondansetron 4 mg disintegrating 4 mg PO Q6H PRN nausea and 08/15/24 03/15/25 Rx tablet vomiting #20 tabs propranolol 20 mg tablet 20 mg PO TID PRN anxiety #90 tabs 11/22/24 03/15/25 Rx Held on 03/15/25. Instructions: Pt Stopped/Never Started buspirone 5 mg tablet 5 mg PO TID #90 tabs 02/25/25 03/15/25 Rx semaglutide (weight loss) 1 mg/0.5 0.5 mg (0.25 mL) subcut QWEEK #2 mL 02/28/25 03/15/25 Rx mL subcutaneous pen injector Exam Narrative Exam Narrative: Continued but well-appearing female laying in bed in no acute distress, ANO x 4, heart regular rhythm, lungs, sensation bilaterally, abdomen with diffuse tenderness throughout most prominent McBurney's point Results Labs 03/15/25 18:30 03/15/25 18:30 Labs: Laboratory Results - last 24 hr 03/15/25 03/15/25 18:30 20:25 WBC 8.62 RBC 4.85 Hgb 13.3 Hct 41.2 MCV 85 MCH 27.4 MCHC 32.3 RDW 12.2 Plt Count 264 MPV 10.2 Immature Gran % 0.1 Neutrophils % 56.2 Lymphocytes % 35.6 Monocytes % 6.8 Eosinophils % 1.0 Basophils % 0.3 Nucleated RBC % 0.0 Absolute Neutrophils 4.83 Absolute Lymphocytes 3.07 Absolute Monocytes 0.59 Absolute Eosinophils 0.09 Absolute Basophils 0.03 VBG Lactate 1.0 Sodium 143 Potassium 4.3 Chloride 104 Carbon Dioxide 32.4 H Anion Gap 6.6 BUN 11 Creatinine 0.8 Est GFR (CKD-EPI 2020) 89.71 Glucose 90 Calcium 9.5 Magnesium 2.3 Total Bilirubin 0.4 AST 27 ALT 45 Alkaline Phosphatase 121 H Total Protein 7.6 Albumin 4.1 Lipase 73 Urine Color Yellow Urine Clarity Clear Urine pH 5.0 Ur Specific [place] <= 1.005 Urine Protein Negative Urine Ketones Negative Urine Blood Negative Urine Nitrite Negative Urine Bilirubin Negative Urine Urobilinogen 0.2 Ur Leukocyte Esterase Negative Urine Glucose Negative Last Vital Signs Temp 98.1 F 03/15/25 18:45 Pulse 74 03/15/25 21:46 Resp 12 03/15/25 21:46 BP 111/61 03/15/25 21:46 Pulse Ox 95 03/15/25 21:46 Time Spent Time spent with Patient: >75 minutes Time was spent: preparing to see the patient(eg.review tests), obtaining and/or reviewing separately otained hiistory, ordering medications,tests, procedures, referring, communicating with other health career counselor, indepentently interpreting results, counseling the patient and care coordination
[2025-03-15] MEDS: Calcium Carbonate *TUMS* 500 MG CHEW PO (22:34)
--- NOTE | 2025-03-15 22:50 | W.PCEDHO ---
Registration Status: REG ER Primary Language: Preferred Language: ED Information & Data Chief Complaint Abd Prob 03/15/25 18:04 Triage Note pt with c/o lower abdominal 03/15/25 17:42 pain and nausea vomiting pt also c/o diarrhea onset last night Medical / Surgical History (Last Reviewed 12/07/24 @ 19:56 by Mike Goodman NP) Urinary tract infection Obesity Gastroparesis Low back pain Hemorrhoids Anxiety about health Mild episode of recurrent major depressive disorder PTSD (post-traumatic stress disorder) Hx of colonic polyp Hiatal hernia with GERD Barretts esophagus Tibial plateau fracture, left UTI (urinary tract infection) Left flank pain Chronic bladder pain (Last Reviewed 12/07/24 @ 19:56 by Mike Goodman NP) H/O right breast biopsy Hx of knee surgery Hx of hysterectomy History of esophagogastroduodenoscopy (EGD) History of cholecystectomy History of partial gastrectomy History of Magdaleno fundoplication History of laparoscopy Hx of section H/O hysterectomy with oophorectomy Most Recent Vital Signs Temperature 36.7 C 03/15/25 18:45 Temperature Source Oral 03/15/25 18:45 Pulse 74 03/15/25 21:46 Pulse 73 03/15/25 21:46 Respiratory Rate 12 03/15/25 21:46 Blood Pressure 111/61 03/15/25 21:46 Blood Pressure Mean 74 03/15/25 21:46 Blood Pressure Position Sitting 03/15/25 18:45 Pulse Oximetry 95 03/15/25 21:46 Oxygen Delivery Method Room Air 03/15/25 18:45 Oxygen Flow Rate 0 03/15/25 17:42 Pain Level 7 03/15/25 20:20 Allergies bupropion (From Wellbutrin) Allergy (Severe, Verified 03/15/25 17:46) Pt states serum sickness onion Allergy (Severe, Verified 03/15/25 17:46) Anaphylaxis escitalopram Adverse Reaction (Intermediate, Verified 03/15/25 17:46) Agitation Active Medications Generic Name Dose Route Start Last Admin Trade Name Freq PRN Reason Stop Dose Admin Iohexol 500 ml 03/15/25 19:30 03/15/25 19:19 Omnipaque 350 Mg/Ml 500 Ml Btl-Imaging Package IJ 04/14/25 23:59 75 ml DIRECTED JULIO Administration Sodium Chloride 0 ml 03/15/25 19:18 03/15/25 19:18 Normal Saline Flush 10 Ml Syr IVP 10 ml PRN PRN Administration Sodium Chloride 50 ml 03/15/25 19:30 03/15/25 19:20 Normal Saline - Diluent 50 Ml Vial IJ 50 ml .FOR DI USE JULIO Administration IV IV Catheter Type [Left Saline Lock Antecubital] IV Catheter Gauge [Left 18 Antecubital] Diagnostics 03/15/25 03/15/25 Range/Units 20:25 18:30 WBC 8.62 (4.4-10.8) 10^3/uL RBC 4.85 (3.93-5.22) 10^6/uL Hgb 13.3 (11.2-15.7) g/dL Hct 41.2 (36.0-46.0) % MCV 85 (80-95) fL MCH 27.4 (27.0-33.0) pg MCHC 32.3 (32.0-36.0) % RDW 12.2 (11.7-14.6) % Plt Count 264 (130-400) 10^3/uL MPV 10.2 (8.0-11.0) fL Immature Gran % 0.1 % Neutrophils % 56.2 % Lymphocytes % 35.6 % Monocytes % 6.8 % Eosinophils % 1.0 % Basophils % 0.3 % Nucleated RBC % 0.0 (0.0-0.3) % Absolute Neutrophils 4.83 (1.2-6.7) 10^3/uL Absolute Lymphocytes 3.07 (1.2-3.4) 10^3/uL Absolute Monocytes 0.59 (0.1-0.8) 10^3/uL Absolute Eosinophils 0.09 (0.0-0.7) 10^3/uL Absolute Basophils 0.03 (0.0-0.2) 10^3/uL VBG Lactate 1.0 (<or=2.0) mmol/L Sodium 143 (136-145) mmol/L Potassium 4.3 (3.5-5.1) mmol/L Chloride 104 (98-107) mmol/L Carbon Dioxide 32.4 H (21.0-32.0) mmol/L Anion Gap 6.6 (3-11) mmol/L BUN 11 (7-18) mg/dL Creatinine 0.8 (0.55-1.02) mg/dL Est GFR (CKD-EPI 2020) 89.71 (mL/min/1.73m2) Glucose 90 (74-106) mg/dL Calcium 9.5 (8.5-10.1) mg/dL Magnesium 2.3 (1.8-2.4) mg/dL Total Bilirubin 0.4 (0.2-1.0) mg/dL AST 27 (15-37) U/L ALT 45 (14-59) U/L Alkaline Phosphatase 121 H (46-116) U/L Total Protein 7.6 (6.4-8.2) g/dL Albumin 4.1 (3.4-5.0) g/dL Lipase 73 (<78) U/L Urine Color Yellow (Yellow) Urine Clarity Clear (Clear) Urine pH 5.0 (5-8) Ur Specific [place] <= 1.005 (1.005-1.025) Urine Protein Negative (Neg-Trace) mg/dL Urine Ketones Negative (Negative) mg/dL Urine Blood Negative (Negative) Urine Nitrite Negative (Negative) Urine Bilirubin Negative (Negative) Urine Urobilinogen 0.2 (Up to 0.2) mg/dL Ur Leukocyte Esterase Negative (Negative) Urine Glucose Negative (Negative) mg/dL 03/15/25 21:00 Blood Culture - Pending Blood 03/15/25 21:00 Blood Culture - Pending Blood Intake and Output - 24 Hour Total 03/15/25 17:40 thru 03/15/25 17:42 Weight 60.781 kg Falls Risk Assessment History of Falls No History 03/15/25 18:46 Contributing Factors No Factors 03/15/25 18:46 Ambulatory Aids Independent 03/15/25 18:46 Tubes/Lines None 03/15/25 18:46 Gait Evaluation No gait disturbance 03/15/25 18:46 Cognition No cognitive impairment 03/15/25 18:46 Fall Total Score 0 03/15/25 18:46 Level of Risk Standard/Low Risk 03/15/25 18:46 Problems (Last Reviewed 12/07/24 @ 19:56 by Mike Goodman NP) Enterocolitis (Acute) Intractable abdominal pain (Acute) Appendicolith (Acute) Celiac artery stenosis (Acute) Hx of endometriosis (Acute) v v v v v v v v v Sending and/or Receiving Nurses: Please use comment section below to note any information pertinent to the patient hand-off not included above. Information / Comments: Alert and oriented, independent at baseline. Was riding horse today and thinks she might have injured L rib while riding. Has abd. pain as well. Pt felt pain was similar to UTI in the past. Nausea. Dunn with urination. No chest pain or shortness of breath. pain rated 10/10 in abdomen. Sitting makes pain worse. 18g L AC. IV tylenol, zofran, ketorolac, 10mg IVP morphine total, per patient morphine made pain worse. afebrile, bp 111/54, resp 16, room air at 96% spo2, hr 65-76. Surg consult in the AM. Report received from: Maria Del Carmen WHITNEY
[2025-03-15] MEDS: HYDROmorphone 2 MG/ML SYR IVP (23:35)
[2025-03-16] VITALS (7 sets, daily range): BP systolic 96–113; BP diastolic 55–78; PULSE 55–77; RESP 16–20; TEMP 36–36.8; O2SAT 94–97
[2025-03-16] MEDS: Normal Saline Flush 10 ML SYR IVP ×6 (00:29→22:00)
[2025-03-16] MEDS: HYDROmorphone 2 MG/ML SYR IVP (04:41)
[2025-03-16] MEDS: Ondansetron 4 MG/2 ML VIAL IVP ×2 (06:45→12:12)
[2025-03-16 07:07] LABS: HCT 35.5 % (36.0-46.0); HGB 11.4 g/dL (11.2-15.7); MCH 27.5 pg (27.0-33.0); MCHC 32.1 % (32.0-36.0); MCV 86 fL (80-95); MPV 10.5 fL (8.0-11.0); Platelet Count 183 10^3/uL (130-400); RBC 4.15 10^6/uL (3.93-5.22); RDW 12.4 % (11.7-14.6); RDW-SD 38.5 fL; WBC 3.31 10^3/uL (4.4-10.8)
[2025-03-16] MEDS: Pantoprazole 40 MG TABCR PO ×2 (07:40→17:12)
[2025-03-16] MEDS: busPIRone 5 MG TAB PO ×3 (07:40→20:17)
[2025-03-16] MEDS: Enoxaparin 40 MG/0.4 ML SYR SC (07:41)
[2025-03-16 07:53] LABS: Anion Gap 5.0 mmol/L (3-11); BUN 9 mg/dL (7-18); CO2 30.0 mmol/L (21.0-32.0); Calcium 8.6 mg/dL (8.5-10.1); Chloride 107 mmol/L (98-107); Estimated GFR 109.28 (mL/min/1.73m2); Glucose 90 mg/dL (74-106); Magnesium 2.0 mg/dL (1.8-2.4); Potassium 4.3 mmol/L (3.5-5.1); Sodium 142 mmol/L (136-145)
--- NOTE | 2025-03-16 10:41 | INITIAL_ITS ---
Date of service: 03/16/25 Time of Service: 10:41 Care Management Initial Assmt Initial Assessment Reason for Hospitalization: Intractable abdominal pain Functional Status/Living Situation Patient Presentation: Analisa was awake and lying in bed when CM met with her. She is accompanied by her and denies concerns at this time. She is eager to discharge home, and is hopeful it will be tomorrow because she has a horse show this weekend in [facility] and starts a new job on Friday. Town of Residence: [place] Resides with: Spouse (Eugene) Significant Other/Family: [facility] Instrumental Activities of Daily Living (ADLs): Independent Medications Medication Management: No Issues/Barriers identified Advance Directives Advance Directives: Do you have an Advance Directive: N , 10:04 AD On File at [facility]: N 09/11/23, 10:04 Date Asked 03/15/25 03/15/25, 17:55 AD Date Reviewed COLST On File at [facility] COLST Date Scanned Code Status Resuscitation Status Full Code Insurance Coverage/Financial Issues Insurance: / Out of State - [id number] Care Team Visit Care Team Role Provider Type Ryan Gerard MD [facility] STAFF PHYSICIAN Mike Goodamn NP Primary Care Provider NURSE PRACTITIONER RICHARD Patrick Emergency Provider [employer] Ovidio Leahy MD Admit Provider [facility] STAFF PHYSICIAN Attending Provider Discharge Potential Discharge Needs: PCP F/U Appt and Surgical F/U Appt Anticipated Barriers to Discharge: None Identified Patient/Family Education Needs: Review discharge instructions, discuss Ask Me Three Transportation: Private vehicle Plan: Mora is being monitored for abdominal pain and nausea, surgical is following; if symptoms worsen, potential exploratory lap may be needed per hospitalist. Anticipate pt will discharge home when medically cleared for discharge. No new services are anticipated at this time. CM will continue to follow and support discharge planning needs. Social Determinants of Health Screening Will the Patient Participate in the Screening?: Declined to provide PFSH All Active Problems (Updated 03/16/25 @ 18:14 by Norma Teixeira MD) Fecal retention (Acute) Postsurgical malabsorption (Acute) Vomiting bile (Acute) History of Analia-en-Y gastric bypass (Acute) RLQ abdominal pain (Acute) Enterocolitis (Acute) Intractable abdominal pain (Acute) Appendicolith (Acute) Acute stress reaction (Acute) Closed fracture of metaphysis of distal end of left radius (Acute 09/27/24) Osteomalacia (Acute) Abdominal mass, LUQ (left upper quadrant) (Acute) Glucosuria (Acute) Celiac artery stenosis (Acute) per CT Dental infection (Acute) Seborrheic keratosis (Acute) Vitamin D deficiency (Acute) Altered gait (Acute) Hematoma (Acute) Upper back pain (Acute) Neck pain (Acute) Mass in neck (Acute) Periodic heart flutter (Acute) S/P partial gastrectomy (Acute) Syncope (Chronic) Hypochromic anemia (Acute) check CBC and ferritin q6-12m, refer back to hem/onc for iron transfusion for ferritin <30 BPPV (benign paroxysmal positional vertigo) (Acute) Restless legs (Acute) Elevated LFTs (Acute) Arthralgia (Acute) Microcytosis (Acute) Left wrist pain (Acute) Left upper arm pain (Acute) Painful lumpy right breast (Acute) Hx of endometriosis (Acute) Labial cyst (Acute) Right, 1 cm Pelvic pain (Acute) Medical History Urinary tract infection Obesity Gastroparesis Low back pain Hemorrhoids Anxiety about health Mild episode of recurrent major depressive disorder PTSD (post-traumatic stress disorder) Hx of colonic polyp Hiatal hernia with GERD Barretts esophagus with dysplasia Tibial plateau fracture, left orif, metal in left tibia UTI (urinary tract infection) Left flank pain Chronic bladder pain Surgical History H/O right breast biopsy Hx of knee surgery Hx of hysterectomy History of esophagogastroduodenoscopy (EGD) History of cholecystectomy History of partial gastrectomy History of Magdaleno fundoplication History of laparoscopy Hx of section H/O hysterectomy with oophorectomy Unilateral oophorectomy for endometriosis Family History Mother , 75 Cancer Cervical Depression Heart disease Hyperlipidemia Stroke Father , 81 Diabetes Hypertension Brother , 51 Heart disease Hyperlipidemia Stroke Brother Heart disease Hyperlipidemia Hypertension Son No problems noted. Son No problems noted. Maternal Grandfather , 77 Cancer Lung Diabetes Heart disease Stroke Paternal Grandfather , 75 Diabetes Heart disease Hypertension Maternal Grandmother , 63 Cancer Breast Diabetes Stroke Paternal Grandmother , 76 Cancer Ovarian Heart disease Hypertension Stroke Social History Smoking/Tobacco Use Status: Former Tobacco Use tobacco type: cigarettes Quit Date: 09/15/94 Tobacco: How many years used: 20 Second Hand Exposure: Yes Smoking risk assessment performed?: Yes Alcohol Intake: current Alcohol Intake frequency: holidays/special occasions only Alcohol type: wine Drug use: Never Substance use type: does not use Adopted: No Household members: spouse and children Housing: house Number of Children: 4 number of grandchildren: 6 Communication Needs: None Education Level: college 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 Pets and animals: Yes Pets and animals: cat(s), dog(s) and horse(s) Sexually active: Yes Do you think of yourself as: straight/heterosexual Current gender identity: female What is your relationship status?: How often do you talk on the phone with friends or family?: twice per week How often do you get together with friends or relatives?: twice per week How often do you attend mosque or uatsdin services?: 1-3 times per year Do you belong to any clubs or organized social groups?: no Panel score (0-1 are the most socially isolated patients): 2 What type of physical activity do you participate in: walking Duration: 15-30 minutes/day Frequency: 3-4 times per week Radha/Islam: Non congregational Special radha needs: No Seatbelt use: always Helmet use: Yes Helmet use: always Drive intox or ride w/intox ambulette 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
--- NOTE | 2025-03-16 10:59 | NUR.NOTE ---
Nursing Note: Placed Aqua K pad per pt request on her neck, stated that the doctor was ordering it, will ask for order.
--- NOTE | 2025-03-16 11:47 | CHAPLAIN ---
Analisa was in bed when I visited. I explained my role and offered support. She said she is in touch with her family. She asked about getting a Coke to drink, so I got that for her.
[2025-03-16] MEDS: HYDROcodone 5/Acetaminophen 325 TAB PO (12:13)
[2025-03-16] MEDS: Polyethylene Glycol 3350 17 GM PACKET PO (13:04)
[2025-03-16] MEDS: POTASSIUM CHLORIDE/D5-0.45NACL 1,000 ML 125 MEQ IV (17:12)
[2025-03-16] MEDS: ACETAMINOPHEN 1,000 MG/100 ML BAG 400 MG IVPB (17:29)
[2025-03-16] MEDS: Magnesium Citrate 300 ML BTL PO (17:29)
--- NOTE | 2025-03-16 18:00 | W.SURGCON ---
Date of service: 03/16/25 Time of Service: 18:00 Assessment and Plan Assessment and plan (1) RLQ abdominal pain: Status: Acute Assessment and plan: differential includes fecal loading of cecum and asc colon VS appendicolith pain with colic without appendicitis VS distal obstruction of the small intestine of the bypass. Appendicitis unlikely as there is no inflammatory change. Even w her history of not showing proper inflammation when ill, I feel appendicitis is less likely given labs and exam, and appencectomy in her abdomen would not be as safe as normal because of prior surgery. Would want more signs of appendicitis before proceeding w surgery, and will want to rule out fecal loading as a cause of pain. Give bottle of mag citrate and reevaluate pain. If not better, will want to proceed w small bowel series to eval for distal small bowel obstruction as she has bilious emesis in a bypass patient which is a sign. If her pain resolves w clearing the fecal loading then she will still need the SB series but it can be done as outpatient. If she worsens will consider rechecking for signs of appendicitis. (2) History of Terrie-en-Y gastric bypass: Status: Acute Assessment and plan: for antireflux, now with symptoms of bile reflux which may represent distal obstruction or GG fistula. SB series will help evaluate. Ordered. (3) Vomiting bile: Status: Acute Assessment and plan: for antireflux, now with symptoms of bile reflux which may represent distal obstruction or GG fistula. SB series will help evaluate. Ordered. (4) Postsurgical malabsorption: Status: Acute Assessment and plan: recommend bariatric multivitamin as outpt and continue to follow with her surgeon and PCP for this. (5) Fecal retention: Status: Acute Assessment and plan: see above, mag citrate ordered and will reevaluate. History of Present Illness History of Present Illness Chief Complaint: abd pain, appendicolith Narrative: 49yo F with complex abdominal surgical history including a gastrectomy w terrie en y reconstruction for antireflux surgery for barretts esophagus with dysplasia. She says she has had 14+ operations on her abdomen for complex problems. Surgery has been done at [facility] by Dr gupta a general surgeon. Pt says her illnessesd have not presented in classic way with obvious inflammation or lab changes in the past and lives with a worry of being overlooked. She has new onset severe RLQ pain for the last 2 days that has not improved since admission. CT scan shows appendicolith without inflammation, as well as descending and sigmoid colitis/thickening, and prominent small bowel. Report says enterocolitis though description of small bowel notes only distention/prominence. She says she has had colitis in the past. She has been having severe epigastric pain with emesis of foamy bilious material since she last saw her surgeon at [facility]. She had not had bilious reflux or emesis before and he is not aware of this change. She has postprandial diarrhea and loose stools on a regular basis. She had colonoscopy in the past but not recently since CT scans have shown colitis. She has trouble absorbing nutrients since her bypass and notes a stubborn vitamin D deficiency. She has had a lot of adhesions noted in her abdominal operatiosn in the past. She had a magdaleno prior to her antireflux gastrectomy but the magdaleno slipped and failed. She initially was discouraged and wanted to discharge home despite not feeling any better but is agreeable to staying for evaluation and treatment after we discussed her health and care plan. Consults Consult date: 03/16/25 Requesting physician: Ryan Gerard Review of Systems All systems reviewed & are unremarkable except as noted in HPI and below PFSH All Active Problems (Updated 03/16/25 @ 18:14 by Norma Teixeira MD) Fecal retention (Acute) Postsurgical malabsorption (Acute) Vomiting bile (Acute) History of Terrie-en-Y gastric bypass (Acute) RLQ abdominal pain (Acute) Enterocolitis (Acute) Intractable abdominal pain (Acute) Appendicolith (Acute) Acute stress reaction (Acute) Closed fracture of metaphysis of distal end of left radius (Acute 09/27/24) Osteomalacia (Acute) Abdominal mass, LUQ (left upper quadrant) (Acute) Glucosuria (Acute) Celiac artery stenosis (Acute) per CT Dental infection (Acute) Seborrheic keratosis (Acute) Vitamin D deficiency (Acute) Altered gait (Acute) Hematoma (Acute) Upper back pain (Acute) Neck pain (Acute) Mass in neck (Acute) Periodic heart flutter (Acute) S/P partial gastrectomy (Acute) Syncope (Chronic) Hypochromic anemia (Acute) check CBC and ferritin q6-12m, refer back to hem/onc for iron transfusion for ferritin <30 BPPV (benign paroxysmal positional vertigo) (Acute) Restless legs (Acute) Elevated LFTs (Acute) Arthralgia (Acute) Microcytosis (Acute) Left wrist pain (Acute) Left upper arm pain (Acute) Painful lumpy right breast (Acute) Hx of endometriosis (Acute) Labial cyst (Acute) Right, 1 cm Pelvic pain (Acute) Medical History Urinary tract infection Obesity Gastroparesis Low back pain Hemorrhoids Anxiety about health Mild episode of recurrent major depressive disorder PTSD (post-traumatic stress disorder) Hx of colonic polyp Hiatal hernia with GERD Barretts esophagus with dysplasia Tibial plateau fracture, left orif, metal in left tibia UTI (urinary tract infection) Left flank pain Chronic bladder pain Surgical History H/O right breast biopsy Hx of knee surgery Hx of hysterectomy History of esophagogastroduodenoscopy (EGD) History of cholecystectomy History of partial gastrectomy History of Magdaleno fundoplication History of laparoscopy Hx of section H/O hysterectomy with oophorectomy Unilateral oophorectomy for endometriosis Family History Mother , 75 Cancer Cervical Depression Heart disease Hyperlipidemia Stroke Father , 81 Diabetes Hypertension Brother , 51 Heart disease Hyperlipidemia Stroke Brother Heart disease Hyperlipidemia Hypertension Son No problems noted. Son No problems noted. Maternal Grandfather , 77 Cancer Lung Diabetes Heart disease Stroke Paternal Grandfather , 75 Diabetes Heart disease Hypertension Maternal Grandmother , 63 Cancer Breast Diabetes Stroke Paternal Grandmother , 76 Cancer Ovarian Heart disease Hypertension Stroke Social History Smoking/Tobacco Use Status: Former Tobacco Use tobacco type: cigarettes Quit Date: 09/15/94 Tobacco: How many years used: 20 Second Hand Exposure: Yes Smoking risk assessment performed?: Yes Alcohol Intake: current Alcohol Intake frequency: holidays/special occasions only Alcohol type: wine Drug use: Never Substance use type: does not use Adopted: No Household members: spouse and children Housing: house Number of Children: 4 number of grandchildren: 6 Communication Needs: None Education Level: college 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 Pets and animals: Yes Pets and animals: cat(s), dog(s) and horse(s) Sexually active: Yes Do you think of yourself as: straight/heterosexual Current gender identity: female What is your relationship status?: How often do you talk on the phone with friends or family?: twice per week How often do you get together with friends or relatives?: twice per week How often do you attend jew or confucianist services?: 1-3 times per year Do you belong to any clubs or organized social groups?: no Panel score (0-1 are the most socially isolated patients): 2 What type of physical activity do you participate in: walking Duration: 15-30 minutes/day Frequency: 3-4 times per week Radha/Pentecostal: Non mu-ism Special radha needs: No Seatbelt use: always Helmet use: Yes Helmet use: always Drive intox or ride w/intox roll off 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 Exam Narrative Exam Narrative: awake, NAD eomi, MMM normal resp effort, equal chest rise with respiration abdomen is soft without obvious distention. RLQ tenderness to palpation with palpable fullness. There is no diffuse peritonitis. no c/c/e speech is clear and coherent, cognition is intact Results Last Vital Signs Temp 97.2 F L 03/16/25 15:18 Pulse 62 03/16/25 15:18 Resp 17 03/16/25 15:18 BP 97/59 L 03/16/25 15:18 Pulse Ox 95 03/16/25 15:18 Labs 03/16/25 06:30 03/16/25 06:30 Labs: Laboratory Results - last 24 hr 03/15/25 03/15/25 03/16/25 18:30 20:25 06:30 WBC 8.62 3.31 L RBC 4.85 4.15 Hgb 13.3 11.4 Hct 41.2 35.5 L MCV 85 86 MCH 27.4 27.5 MCHC 32.3 32.1 RDW 12.2 12.4 Plt Count 264 183 MPV 10.2 10.5 Immature Gran % 0.1 Neutrophils % 56.2 Lymphocytes % 35.6 Monocytes % 6.8 Eosinophils % 1.0 Basophils % 0.3 Nucleated RBC % 0.0 Absolute Neutrophils 4.83 Absolute Lymphocytes 3.07 Absolute Monocytes 0.59 Absolute Eosinophils 0.09 Absolute Basophils 0.03 VBG Lactate 1.0 Sodium 143 142 Potassium 4.3 4.3 Chloride 104 107 Carbon Dioxide 32.4 H 30.0 Anion Gap 6.6 5.0 BUN 11 9 Creatinine 0.8 0.6 Est GFR (CKD-EPI 2020) 89.71 109.28 Glucose 90 90 Calcium 9.5 8.6 Magnesium 2.3 2.0 Total Bilirubin 0.4 AST 27 ALT 45 Alkaline Phosphatase 121 H Total Protein 7.6 Albumin 4.1 Lipase 73 Urine Color Yellow Urine Clarity Clear Urine pH 5.0 Ur Specific [place] <= 1.005 Urine Protein Negative Urine Ketones Negative Urine Blood Negative Urine Nitrite Negative Urine Bilirubin Negative Urine Urobilinogen 0.2 Ur Leukocyte Esterase Negative Urine Glucose Negative Imaging Abdomen CT scan report/results: report reviewed and image reviewed Imaging Studies: Exam(s) PROCEDURE INFORMATION: Exam: CT Abdomen And Pelvis With Contrast Exam date and time: 03/15/2025 7:24 PM Age: 49 years old Clinical indication: Prior surgery; Surgery date: 6+ months; Surgery type: Hysterectomy, cholecystectomy, magdaleno procedure; Nausea, R flank pain, UTI symptoms TECHNIQUE: Imaging protocol: Computed tomography of the abdomen and pelvis with contrast. Radiation optimization: All CT scans at this facility use at least one of these dose optimization techniques: automated exposure control; mA and/or kV adjustment per patient size (includes targeted exams where dose is matched to clinical indication); or iterative reconstruction. Contrast material: OMNIPAQUE 350; Contrast volume: 75 ml; Contrast route: INTRAVENOUS (IV); COMPARISON: CT ABDOMEN PELVIS W 09/09/2024 2:50 PM FINDINGS: Lungs: There is heterogeneous attenuation of the pulmonary parenchyma, consistent with air trapping from underlying small airways disease. The lungs are otherwise normal. Pleural spaces: There is no evidence of pneumothorax. There are no pleural effusions present. Heart: The cardiac structures are normal. Liver: Normal. No mass. Gallbladder and biliary ducts: There has been a cholecystectomy. There is mild intrahepatic biliary dilation. Pancreas: Normal. No ductal dilation. Spleen: The spleen is normal. Adrenal glands: Normal. No mass. Kidneys and ureters: The kidneys are normal. Stomach and bowel: Surgical changes at the gastroesophageal junction consistent with Magdaleno fundoplication. Mild thickening of the distal gastric and proximal duodenal wall may represent mild gastroduodenitis. Mild diverticulosis is present in the sigmoid and descending colon. There is no evidence of diverticulitis. There are diffuse fluid filled loops of small bowel and colon with scattered air fluid levels. The bowel loops are mildly distended. No associated small bowel wall thickening or inflammatory changes. Mild thickening of the descending colon. No evidence of obstruction. Findings most consistent with diffuse enterocolitis. There is no evidence of intestinal obstruction. Appendix: There is focal intraluminal appendiceal calcification, an otherwise normal appendix is identified. There is no evidence of distention or periappendiceal inflammation to suggest appendicitis. Intraperitoneal space: There is no free intraperitoneal air. There is no evidence of free intraperitoneal or pelvic fluid. Vasculature: The aorta shows mild atherosclerosis but otherwise is unremarkable without evidence of significant atherosclerosis or aneurysmal disease. The peripheral arterial vascular system visualized is unremarkable. The portal venous system visualized is unremarkable. The peripheral venous vascular system visualized is unremarkable. Lymph nodes: There is no evidence of lymphadenopathy. Urinary bladder: There is nonspecific bladder wall thickening. This may be related to incomplete bladder filling. Reproductive: There has been a hysterectomy. No adnexal cysts or masses are identified. Bones/joints: The skeletal structures and soft tissues show no evidence of fracture or other acute processes. Soft tissues: The extra-abdominal soft tissues are normal. IMPRESSION: 1. Mild thickening of the distal gastric and proximal duodenal wall may represent mild gastroduodenitis. There are diffuse fluid filled loops of small bowel and colon with scattered air fluid levels. The bowel loops are mildly distended. No associated small bowel wall thickening or inflammatory changes. Mild thickening of the descending colon. No evidence of obstruction. Findings most consistent with diffuse enterocolitis. 2. There is heterogeneous attenuation of the pulmonary parenchyma, consistent with air trapping from underlying small airways disease. Dictated and Authenticated by: Fuad Zarate MD. Orderin Tj Galeana MD Ordered By: CC: Dictated By: Dolores mondragon 03/15/[id number]/15/[id number] Transcribed By: Rosa Diaz 03/15/251923
[2025-03-16] MEDS: fentaNYL 100 MCG/2 ML VIAL 50 MCG IVP ×2 (18:28→21:59)
--- NOTE | 2025-03-16 18:38 | W.PM.PROGNOT ---
Date of Service Date of service: 03/16/25 Time of Service: 18:38 Assessment and Plan Assessment and plan (1) Intractable abdominal pain: Status: Acute Assessment and plan: -patient presenting with severe abdominal pain, nausea and vomiting -CBC without leukocytosis, no fevers, but abdominal tenderness at McBurneys point -CT abdo/pelvis showed enterocolitis and appenicolith -Gen Surg constulted, appreciate Dr. Teixeira's input, SB follow through ordered. -Nausea with 2mg IV dilaudid, change to fentanyl for IV treatment. -differential remains broad, less likely appendicitis/appendicolith. I doubt celiac artery stenosis (seen on previous imaging) relavant. Adhesions/obstruction is a concern with surgical history. See Dr. Teixeira's note. -not getting ongoing diarrhea to suggest infection (2) Hx of endometriosis: Status: Acute Assessment and plan: -s/p hysterectomy, post menopausal per report of previous testing, which should cause this condition to dissipate, but hard to tell when s/p hysterectomy. Subjective Subjective Patient reports: voiding w/o difficulty and vomiting; denies tolerating a regular diet, bowel movement, diarrhea, blood in stool or fever Interval history since last seen: She still has RLQ pain. Not much change in pain. This pain is different than her more typical upper abdominal pain. Mouth is dry, but trouble drinking enough, still nauseous. Feels like hydromorphone might have been too strong, made her nausea worse. No pain with urination. Exam Narrative Exam Narrative: Uncomfortable but well-appearing female laying in bed in no acute distress, ANO x 4, heart regular rhythm, lungs CTAB nl effort, +BS, abdomen with diffuse tenderness throughout most prominent McBurney's point, no guarding or rebound. No c/c/e. Objective Last Vital Signs Temp 36.2 C L 03/16/25 15:18 Pulse 62 03/16/25 15:18 Resp 17 03/16/25 15:18 BP 97/59 L 03/16/25 15:18 Pulse Ox 95 03/16/25 15:18 Laboratory Results - last 24 hr 03/15/25 03/15/25 03/16/25 18:30 20:25 06:30 WBC 8.62 3.31 L RBC 4.85 4.15 Hgb 13.3 11.4 Hct 41.2 35.5 L MCV 85 86 MCH 27.4 27.5 MCHC 32.3 32.1 RDW 12.2 12.4 Plt Count 264 183 MPV 10.2 10.5 Immature Gran % 0.1 Neutrophils % 56.2 Lymphocytes % 35.6 Monocytes % 6.8 Eosinophils % 1.0 Basophils % 0.3 Nucleated RBC % 0.0 Absolute Neutrophils 4.83 Absolute Lymphocytes 3.07 Absolute Monocytes 0.59 Absolute Eosinophils 0.09 Absolute Basophils 0.03 VBG Lactate 1.0 Sodium 143 142 Potassium 4.3 4.3 Chloride 104 107 Carbon Dioxide 32.4 H 30.0 Anion Gap 6.6 5.0 BUN 11 9 Creatinine 0.8 0.6 Est GFR (CKD-EPI 2020) 89.71 109.28 Glucose 90 90 Calcium 9.5 8.6 Magnesium 2.3 2.0 Total Bilirubin 0.4 AST 27 ALT 45 Alkaline Phosphatase 121 H Total Protein 7.6 Albumin 4.1 Lipase 73 Urine Color Yellow Urine Clarity Clear Urine pH 5.0 Ur Specific [place] <= 1.005 Urine Protein Negative Urine Ketones Negative Urine Blood Negative Urine Nitrite Negative Urine Bilirubin Negative Urine Urobilinogen 0.2 Ur Leukocyte Esterase Negative Urine Glucose Negative Time Spent with Patient Time Spent with Patient: 35-49 minutes Time was spent: preparing to see the patient(eg.review tests), obtaining and/or reviewing separately otained hiistory, ordering medications,tests, procedures, referring, communicating with other health career technical supervisor, indepentently interpreting results, counseling the patient and care coordination
[2025-03-17] MEDS: Normal Saline Flush 10 ML SYR IVP (01:10)
[2025-03-17] MEDS: fentaNYL 100 MCG/2 ML VIAL 50 MCG IVP (01:10)
[2025-03-17] MEDS: POTASSIUM CHLORIDE/D5-0.45NACL 1,000 ML 125 MEQ IV ×2 (01:15→09:08)
[2025-03-17 03:12] VITALS: BP 102/46; PULSE 54; RESP 16; TEMP 36.3; O2SAT 94
[2025-03-17 06:52] LABS: Abs Immature Grans 0.00 10^3/uL (0.0-0.06); HCT 34.9 % (36.0-46.0); HGB 11.1 g/dL (11.2-15.7); Immature Grans % 0.0 %; MCH 27.2 pg (27.0-33.0); MCHC 31.8 % (32.0-36.0); MCV 86 fL (80-95); MPV 10.5 fL (8.0-11.0); Platelet Count 175 10^3/uL (130-400); RBC 4.08 10^6/uL (3.93-5.22); RDW 12.1 % (11.7-14.6); RDW-SD 37.8 fL; WBC 3.42 10^3/uL (4.4-10.8)
[2025-03-17 07:24] LABS: Anion Gap 5.9 mmol/L (3-11); BUN 6 mg/dL (7-18); CO2 30.1 mmol/L (21.0-32.0); Calcium 8.6 mg/dL (8.5-10.1); Chloride 108 mmol/L (98-107); Estimated GFR 105.30 (mL/min/1.73m2); Glucose 103 mg/dL (74-106); Potassium 4.6 mmol/L (3.5-5.1); Sodium 144 mmol/L (136-145)
[2025-03-17 07:30] VITALS: BP 114/67; PULSE 60; RESP 16; TEMP 36.5; O2SAT 96
[2025-03-17] MEDS: Pantoprazole 40 MG TABCR PO (07:41)
[2025-03-17] MEDS: busPIRone 5 MG TAB PO (07:42)
--- NOTE | 2025-03-17 07:50 | PT.INIE ---
PT Notes Visit Reasons: Intractable pain Physical Therapy Inpatient Initial Evaluation Date: 03/18/2025 Referring Doctor: Ryan Gerard MD PT Orders: PT CONSULT: Eval/Treat Precautions: Fall. Standard. Activity as tolerated. Patient Profile/Admitting Diagnosis: Mora is a 49-year-old female admitted with chief complaints of right LLQ abdominal pain, history of Analia/and Y gastric bypass, vomiting bile, postsurgical malabsorption, and fecal retention. PMHX: All Active Problems (Updated 03/15/25 @ 22:10 by Ovidio Leahy MD) Enterocolitis (Acute) Intractable abdominal pain (Acute) Appendicolith (Acute) Acute stress reaction (Acute) Closed fracture of metaphysis of distal end of left radius (Acute 09/27/24) Osteomalacia (Acute) Abdominal mass, LUQ (left upper quadrant) (Acute) Glucosuria (Acute) Celiac artery stenosis (Acute) per CTDental infection (Acute) Seborrheic keratosis (Acute) Vitamin D deficiency (Acute) Altered gait (Acute) Hematoma (Acute) Upper back pain (Acute) Neck pain (Acute) Mass in neck (Acute) Periodic heart flutter (Acute) S/P partial gastrectomy (Acute) Syncope (Chronic) Hypochromic anemia (Acute) check CBC and ferritin q6-12m, refer back to hem/onc for iron transfusion for ferritin <30 BPPV (benign paroxysmal positional vertigo) (Acute) Restless legs (Acute) Elevated LFTs (Acute) Arthralgia (Acute) Microcytosis (Acute) Left wrist pain (Acute) Left upper arm pain (Acute) Painful lumpy right breast (Acute) Hx of endometriosis (Acute) Labial cyst (Acute) Right, 1 cm Pelvic pain (Acute) Medical History Urinary tract infection Obesity Gastroparesis Low back pain Hemorrhoids Anxiety about health Mild episode of recurrent major depressive disorder PTSD (post-traumatic stress disorder) Hx of colonic polyp Hiatal hernia with GERD Barretts esophagus with dysplasia Tibial plateau fracture, left ORIF, metal in left tibiaUTI (urinary tract infection) Left flank pain Chronic bladder pain Surgical History H/O right breast biopsy Hx of knee surgery Hx of hysterectomy History of esophagogastroduodenoscopy (EGD) History of cholecystectomy History of partial gastrectomy History of Magdaleno fundoplication History of laparoscopy Hx of section H/O hysterectomy with oophorectomy Unilateral oophorectomy for endometriosis Social History/Home Situation: Independent with all ADLs [employer] Equipment Owned/DME: None Subjective: I want to go home. Patient said that the mattress and the pillow she was using last night was not really comfortable and made her neck pain worse. felt much better after today's session. Objective: General Observation: Apeared stressed out and anxious about her ongoing medical status Mental Status: Alert and oriented as to person, place, time, and purpose. Able to pay attention, focus, and respond appropriately. Pain: 6/10 in neck with end of L rotation and lateral flexion Vital Signs: WNL as clsoley monitored by nursing staff ROM: B UE and LE WFL. Cervical ROM WFL. Strength: B UE/LE 4-5/5. Cervical rotation to L with minimal pain at end of full range, all other WFL. Bed Mobility/Transfers: Independent without device Gait: Has been independent in room without AD but has not had the motivation to move out of bed due to ongoing medical issues. Balance: Static Sitting: Normal Dynamic Sitting: Normal Static Standing: Normal Dynamic Standing: Good Special Tests: Mobility Limitations Standardized Measure [facility] 6 clicks Basic Mobility Inpatient Short Form: Raw Score:24 CMS Score: 0% deficit Informed Consent/Education: Patient was instructed in purpose of PT consult and plan of care. Agreeable to proceed with established PT POC to achieve personal goals. 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 She has undergone a lot of emotional stress lately with her ongoing medical condition which have aggravated her pain level. Today's treatment focused on minimizing symptoms of MPS in involed area of her neck and upper back with good response from patient. Patient is assessed as a 53034 moderate complexity based on the following: History: 49-year-old female with past medical history as indicated above Examination: Demonstrable impairment in strength, balance, and mobility level with underlying impairments and functional limitations as exhibited above Presentation: Stable Decision Makin moderate complexity Goals: Goals X1 week 1. Patient will report no pain in neck to allow full return to ADL participation in the community. Plan of Care/Treatment Plan: 1-2x/day, 7 days/week x 1 week. Plan of care has been reviewed with the [employer] providing the service under Physical Therapy direction. Initiate Physical Therapy intervention for pain management as needed, strengthening, bed mobility, transfers, gait, stairs, balance training, and use of assistive device. TODAY's TREATMENT: Gentle passive stretching to neck muscles x 3 minutes AROM in all planes x 5 coordinated with DBE STM to posterior neck and upper back muscles Shouder rolls with DBE x 1 minute DISCHARGE RECOMMENDATIONS: [] Home with no services [] [] Home with services [specify] [] Home with outpatient PT [] [] SNF for continued rehabilitation [] [] [facility] [] [] SNF versus LTC based on ability to participate and progress [] [X] May benefit from OP PT services if symptoms of neck pain persist TREATMENT CODE/TIME: 05048 x 15 minutes, 54207 x 18 minutes for 1 unit (7:50-8:23). Thank you for the opportunity to participate in the care of this patient. Tiffany Oshea PT, DPT, CLT [facility] [place], [place]
--- NOTE | 2025-03-17 09:05 | PDOC.CMDIS ---
Date of service: 03/17/25 Time of Service: 09:05 LACE Index Scoring Tool Questions: Length of Stay (in days): 1 Was the patient admitted via the E.D.?: Yes E.D. Visits: 1 Answers: Total Score: 5 Risk of Readmission: Low Risk Care Management Discharge Plan Reason for Hospitalization: Intractable Pain Discharge Plan: Discharge home via private vehicle with . Follow up with community providers and discharge plan of care as directed. No new services are ordered prior to discharge. Patient/Family Education Needs: Review discharge instructions, limitations and plan to follow up after discharge. Discuss ask me three.
[2025-03-17 11:01] VITALS: BP 105/69; PULSE 70; RESP 18; TEMP 36.8; O2SAT 95
[2025-03-17] MEDS: HYDROcodone 5/Acetaminophen 325 TAB PO (11:44)
[2025-03-17] MEDS: ACETAMINOPHEN 1,000 MG/100 ML BAG 400 MG IVPB (11:45)
--- NOTE | 2025-03-17 13:24 | DSE_ITS ---
Date of service: 03/17/25 Time of Service: 13:25 DS: Diagnosis Discharge Diagnosis (1) Intractable abdominal pain: Status: Acute (2) Hx of endometriosis: Status: Acute Discharge Plan Disposition Patient Disposition: Home Condition: Fair Discharge Details Reason For Visit: Intractable pain Admit Date/Time: 03/15/25 22:05 Admit Provider: Ovidio Leahy Attending Provider: Ovidio Leahy Primary Care Provider: Mike Rivas Hospital Course Hospital Course: 49-year-old female with past medical history of terrie-in-Y gastric bypass for severe reflex and failed Magdaleno fundoplication as well as endometriosis and history of hysterectomy and right oopherectomy who presenteded to the emergency department severe RLQ abdominal pain associated with nausea and vomiting. CT C/A/P and abdominal ultrasound were both reassuring. She continued to have pain, but was never febrile and her WBC continued to be normal to slightly low. She was evaluated by Dr. Burks from surgery who felt this was not appendicitis. She was given magnesium citrate and had bowel movements but the pain did not resolve. She was concered for a degree of bowel obstruction or a fistula complicating her previous surgery. Given the patient appeared stable, she was discharged with pain and nausea medication and a plan for small bowel follow through and follow up with surgery in 1 week to plan endoscopy. Home Meds and New Rx's Prescriptions: New acetaminophen 325 mg Tablet 650 mg PO Q4H PRN PRNQty: 100 0RF hydrocodone-acetaminophen 5-325 mg Tablet 1 tab PO Q4H PRN PRNQty: 7 0RF Continued albuterol sulfate [Proventil HFA] 90 mcg/actuation HFA aerosol inhaler 2 puff inhalation Q6H PRN (Reason: shortness of breath or wheezing) Qty: 8.5 0RF epinephrine 0.3 mg/0.3 mL auto-injector 0.3 mg IM ONCE Qty: 2 0RF Rx Instructions: as a single dose; may repeat once ibuprofen 800 mg tablet 800 mg PO Q8H PRN (Reason: pain) Qty: 20 0RF propranolol 20 mg tablet 20 mg PO TID PRN (Reason: anxiety) Qty: 90 0RF buspirone 5 mg tablet 5 mg PO TID Qty: 90 0RF pantoprazole 40 mg tablet,delayed release (DR/EC) 40 mg PO BID semaglutide (weight loss) 1 mg/0.5 mL pen injector 0.5 mg subcut QWEEK Qty: 2 12RF Rx Instructions: Increase dose, add cyanocobalamin. Patient requires additional drug compenent to decrease risk of side effects. OK to compound. ondansetron 4 mg tablet,disintegrating 4 mg PO Q6H PRN (Reason: nausea and vomiting) Qty: 20 0RF ergocalciferol (vitamin D2) 1,250 mcg (50,000 unit) capsule 1,250 mcg PO DAILY Changed ferrous sulfate [Feosol] 325 mg (65 mg iron) tablet 325 mg PO Q OTHER DAY Qty: 0 0RF Discharge Instructions Instructions: Abdominal pain in adults - Discharge instructions Additional Instructions: return if you pain is worse Stand Alone Forms: Nursing Discharge Form Referrals: Mike Rivas [employer] DEVELOPER [Primary Care Provider, Medicine] Referral Note: Office will call Mora back as they had to look further into the schedule Activity:: Activity as Tolerated Equipment/Supplies:: No Equipment Needed Diet:: As Tolerated Discharge Orders Discharge Orders: Discharge Order (Routine); Ordered 03/17/25 Ordered By: Ryan Gerard Discharge Data Discharge Date/Time-TO BE ENTERED AT DEPARTURE: 03/17/25 14:26 DS: Summary Time Spent with Patient providing and/or coordinating discharge services: Greater than 30 minutes Status at Discharge Functional status at discharge: independent ambulation Overall status at discharge: patient is progressing back to baseline Mental Status: mental status grossly normal Speech and Movement: speech and movement normal Mood: congruent mood Affect: normal affect Exam Narrative Exam Narrative: Uncomfortable but well-appearing female laying in bed in no acute distress, ANO x 4, heart regular rhythm, lungs CTAB nl effort, +BS, abdomen with diffuse tenderness throughout most prominent McBurney's point, no guarding or rebound. No c/c/e. Psych Mental Status: mental status grossly normal Speech and Movement: speech and movement normal Mood: congruent mood Affect: normal affect DS: Data Vitals/I&O Vitals and I&O: Vital Signs Temperature 36.8 C 03/17/25 11:01 Temperature Source Tympanic 03/17/25 11:01 Pulse 70 03/17/25 11:01 Pulse Rhythm Regular 03/15/25 22:55 Pulse 65 03/15/25 22:45 Respiratory Rate 18 03/17/25 11:01 Respiratory Effort Normal, Non-Labored 03/15/25 22:55 Respiratory Depth Normal 03/15/25 22:55 Respiratory Pattern Normal 03/15/25 22:55 Blood Pressure 105/69 03/17/25 11:01 Blood Pressure Mean 81 03/17/25 11:01 Blood Pressure Position Sitting 03/15/25 18:45 Pulse Oximetry 95 03/17/25 11:01 Oxygen Delivery Method Room Air 03/17/25 11:01 Oxygen Flow Rate 0 03/17/25 11:01 Pain Level 6 03/17/25 11:44 Intake & Output 03/16/25 03/17/25 03/17/25 23:59 11:59 23:59 Intake Total 840 / 1840 1984.417 / 1984.417 Output Total 650 / 900 Balance 190 / 940 1984.417 / 1984.417 Intake: IV 1984.417 / 1984.417 Oral 840 / 840 Output: Urine 650 / 900 Other: Urine Color Pale Yellow Yellow Urine Appearance Clear Clear Urine Odor Normal None Stool Size Large Stool Characteristics Liquid Data Completed and Pending Labs on day of discharge: Labs from last 24 hours 03/17/25 06:05 WBC 3.42 L RBC 4.08 Hgb 11.1 L Hct 34.9 L MCV 86 MCH 27.2 MCHC 31.8 L RDW 12.1 Plt Count 175 MPV 10.5 Immature Gran % 0.0 Neutrophils % 41.4 Lymphocytes % 47.7 Monocytes % 9.1 Eosinophils % 1.5 Basophils % 0.3 Nucleated RBC % 0.0 Absolute Neutrophils 1.42 Absolute Lymphocytes 1.63 Absolute Monocytes 0.31 Absolute Eosinophils 0.05 Absolute Basophils 0.01 Sodium 144 Potassium 4.6 Chloride 108 H Carbon Dioxide 30.1 Anion Gap 5.9 BUN 6 L Creatinine 0.7 Est GFR (CKD-EPI 2020) 105.30 Glucose 103 Calcium 8.6 Preliminary micro results at discharge 03/15/25 22:43 Blood Blood Culture - Preliminary NO GROWTH 24 HOURS 03/15/25 22:41 Blood Blood Culture - Preliminary NO GROWTH 24 HOURS PFSH All Active Problems (Updated 03/17/25 @ 13:19 by Ryan Gerard) Fecal retention (Acute) Postsurgical malabsorption (Acute) Vomiting bile (Acute) History of Terrie-en-Y gastric bypass (Acute) RLQ abdominal pain (Acute) Enterocolitis (Acute) Intractable abdominal pain (Acute) Appendicolith (Acute) Acute stress reaction (Acute) Closed fracture of metaphysis of distal end of left radius (Acute 09/27/24) Osteomalacia (Acute) Abdominal mass, LUQ (left upper quadrant) (Acute) Glucosuria (Acute) Celiac artery stenosis (Acute) per CT Dental infection (Acute) Seborrheic keratosis (Acute) Vitamin D deficiency (Acute) Altered gait (Acute) Hematoma (Acute) Upper back pain (Acute) Neck pain (Acute) Mass in neck (Acute) Periodic heart flutter (Acute) S/P partial gastrectomy (Acute) Syncope (Chronic) Hypochromic anemia (Acute) check CBC and ferritin q6-12m, refer back to hem/onc for iron transfusion for ferritin <30 BPPV (benign paroxysmal positional vertigo) (Acute) Restless legs (Acute) Elevated LFTs (Acute) Arthralgia (Acute) Microcytosis (Acute) Left wrist pain (Acute) Left upper arm pain (Acute) Painful lumpy right breast (Acute) Hx of endometriosis (Acute) Labial cyst (Acute) Right, 1 cm Pelvic pain (Acute) Medical History Urinary tract infection Obesity Gastroparesis Low back pain Hemorrhoids Anxiety about health Mild episode of recurrent major depressive disorder PTSD (post-traumatic stress disorder) Hx of colonic polyp Hiatal hernia with GERD Barretts esophagus with dysplasia Tibial plateau fracture, left orif, metal in left tibia UTI (urinary tract infection) Left flank pain Chronic bladder pain Surgical History H/O right breast biopsy Hx of knee surgery Hx of hysterectomy History of esophagogastroduodenoscopy (EGD) History of cholecystectomy History of partial gastrectomy History of Magdaleno fundoplication History of laparoscopy Hx of section H/O hysterectomy with oophorectomy Unilateral oophorectomy for endometriosis Family History Mother , 75 Cancer Cervical Depression Heart disease Hyperlipidemia Stroke Father , 81 Diabetes Hypertension Brother , 51 Heart disease Hyperlipidemia Stroke Brother Heart disease Hyperlipidemia Hypertension Son No problems noted. Son No problems noted. Maternal Grandfather , 77 Cancer Lung Diabetes Heart disease Stroke Paternal Grandfather , 75 Diabetes Heart disease Hypertension Maternal Grandmother , 63 Cancer Breast Diabetes Stroke Paternal Grandmother , 76 Cancer Ovarian Heart disease Hypertension Stroke Social History Smoking/Tobacco Use Status: Former Tobacco Use tobacco type: cigarettes Quit Date: 09/15/94 Tobacco: How many years used: 20 Second Hand Exposure: Yes Smoking risk assessment performed?: Yes Alcohol Intake: current Alcohol Intake frequency: holidays/special occasions only Alcohol type: wine Drug use: Never Substance use type: does not use Adopted: No Household members: spouse and children Housing: house Number of Children: 4 number of grandchildren: 6 Communication Needs: None Education Level: college 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 Pets and animals: Yes Pets and animals: cat(s), dog(s) and horse(s) Sexually active: Yes Do you think of yourself as: straight/heterosexual Current gender identity: female What is your relationship status?: How often do you talk on the phone with friends or family?: twice per week How often do you get together with friends or relatives?: twice per week How often do you attend protestant or oriental orthodox services?: 1-3 times per year Do you belong to any clubs or organized social groups?: no Panel score (0-1 are the most socially isolated patients): 2 What type of physical activity do you participate in: walking Duration: 15-30 minutes/day Frequency: 3-4 times per week Radha/Hoahaoism: Non holiness Special radha needs: No Seatbelt use: always Helmet use: Yes Helmet use: always Drive intox or ride w/intox driver helper: No Firearms in home: Yes Firearms unloaded and locked: Yes Do you feel safe at home: Yes Do you feel safe in your relationship?: Yes Victim of physical abuse: No Victim of emotional abuse: No Victim of sexual abuse: No Female Reproductive History Menstrual Menopause type: surgical History History 3 Para 2 Hx # Term Pregnancies 2 Multiple births Hx # Pregnancies Ectopic pregnancies AB induced Hx Number of Living Children 2 AB spontaneous Time Spent with Patient Time Spent with Patient: <45 minutes Time was spent: preparing to see the patient(eg.review tests), obtaining and/or reviewing separately otained hiistory, ordering medications,tests, procedures, referring, communicating with other health respiratory care specialist, indepentently interpreting results, counseling the patient and care coordination
== END 2025-03-17 14:26 | disposition home or self-care (01) ==
LOC: ER 22:06 → MS 03-16 08:26
PROVIDERS: Admitting Provider Family Medicine; Emergency Provider Physician Assistant; PCP Nurse Practitioner Family; Responsible Provider Family Medicine; Visit Provider Family Medicine
DX: K38.1 Appendicular concretions (principal); I77.4 Celiac artery compression syndrome; K91.2 Postsurgical malabsorption, not elsewhere classified; K52.9 Noninfective gastroenteritis and colitis, unspecified; R10.31 Right lower quadrant pain; Z98.84 Bariatric surgery status; R11.14 Bilious vomiting; K59.00 Constipation, unspecified; E55.9 Vitamin D deficiency, unspecified; D50.9 Iron deficiency anemia, unspecified; Z79.899 Other long term (current) drug therapy; Z87.42 Personal history of other diseases of the female genital tract
CPT/HCPCS: 00123; 36415; 71250; 80048; 80053; 83690; 85027; 87040; 96361; 96365; 96375; 96376; 97162; 97530; 99285; J1650; 74177; 81003; 83605; 83735; 85025; 99223; 99232; 99239; G0378; J0131; J1171; J1885; J2270; J2405; J3010

== ENCOUNTER 2025-04-01 00:24 | Outpatient (CLI) | payer BC, SELFPAY ==
--- NOTE | 2025-04-01 07:15 | DI.RAD_ITS ---
Exam(s) RF SMALL BOWEL SERIES EXAM: RF SMALL BOWEL SERIES CLINICAL HISTORY: EVAL FOR GASTRIC FISTULA OR DISTAL OBSTRUCTION,vomiting bile,h/o TECHNIQUE: 2D and realtime digital imaging was performed. CONTRAST MATERIAL: Oral barium Oral water soluble contrast was administered. COMPARISON: CT CT ABDOMEN PELVIS W from 03/15/2025 FINDINGS: This patient has had prior bariatric surgery. We performed a single contrast study because of the history bariatric surgery and findings are as follows: The esophagus is not dilated. GE junction and gastric pouch appear unremarkable. There is no extravasation of oral contrast into the lovelock excluded stomach (which would suggest fistulous communication). There is rapid flow of contrast into the nondilated Analia limb. There does not appear to be evidence of obstruction at the distal anastomosis-enteroenterostomy. Small-bowel loops distal to the enteroenterostomy exhibit upper normal diameters. The terminal ileum appears unremarkable as does the ileocecal valve. The appendix is not opacified on this study. IMPRESSION: Prior bariatric analia en Y-type surgery with no evidence of bowel obstruction nor dilatation of the Analia limb. No extravasation of oral contrast into the lovelock excluded stomach. Evidence of more distal small bowel obstruction. The appendix is not outlined on this study. I note that on the recent CT scan of 03/15/2025 the appendix contains some dense material of but without evidence of acute appendicitis at that time. RADIATION DOSE DELIVERED: david Da Silva=19.3 mGy
[2025-04-01] MEDS: Barium Sulfate 60% W/V 355 ML BTL PO ×2 (13:40→13:41)
== END 2025-04-01 00:44 ==
LOC: DI 00:24
PROVIDERS: PCP Nurse Practitioner Family; Visit Provider Surgery
DX: Z98.84 Bariatric surgery status (principal); R11.14 Bilious vomiting
CPT/HCPCS: 74250

== ENCOUNTER 2025-06-13 07:07 | Day surgery (SDC) | payer OTHER, SELFPAY ==
[2025-06-13 07:10] VITALS: BP 104/78; PULSE 84; RESP 16; TEMP 36.6; O2SAT 99
--- NOTE | 2025-06-13 07:37 | W.ANESPRE ---
General Info Date of Service Date Performed: 06/13/25 Height: 5 ft 1 in Weight: 60.3 kg Body Mass Index (BMI): 25.1 Surgical Procedure: Operation Date: 06/13/25 09:05 Proposed Procedure Side Surgeon p Colonoscopy/Gastroscopy Norma Teixeira MD Meds Allergies and Home Medications Allergies Allergy/AdvReac Type Severity Reaction Status Date / Time bupropion (From Wellbutrin) Allergy Severe Pt states Verified 06/13/25 07:31 serum sickness onion Allergy Severe Anaphylaxis Verified 06/13/25 07:31 escitalopram AdvReac Intermediate Agitation Verified 06/13/25 07:31 Home Medication ?Medication ?Instructions ?Recorded pantoprazole 40 mg tablet,delayed 40 mg PO BID 10/20/23 release albuterol sulfate 90 mcg/actuation 2 puff inhalation Q6H PRN 02/16/24 aerosol inhaler (Proventil HFA) shortness of breath or wheezing #8.5 grams epinephrine 0.3 mg/0.3 mL 0.3 mg (0.3 mL) IM ONCE #2 ea 02/16/24 injection, auto-injector ibuprofen 800 mg tablet 800 mg PO Q8H PRN pain #20 tabs 06/24/24 ergocalciferol (vitamin D2) 1,250 1,250 mcg PO DAILY 08/15/24 mcg (50,000 unit) capsule propranolol 20 mg tablet 20 mg PO TID PRN anxiety #90 tabs 11/22/24 buspirone 5 mg tablet 5 mg PO TID #90 tabs 02/25/25 Held on 06/10/25. Instructions: Pt Stopped/Never Started acetaminophen 325 mg tablet 650 mg (2 x 325 mg) PO Q4H PRN PRN 03/17/25 #100 tabs ferrous sulfate 325 mg (65 mg 325 mg PO Q OTHER DAY #0 tabs 03/17/25 iron) tablet (Feosol) ondansetron 4 mg disintegrating 4 mg PO Q6H PRN nausea and 03/17/25 tablet vomiting #20 tabs semaglutide (weight loss) 0.5 0.5 mg (0.5 mL) subcut QWEEK #2 mL 06/07/25 mg/0.5 mL subcutaneous pen injector semaglutide (weight loss) 0.25 0.25 mg (0.5 mL) subcut QWEEK #5 mL 06/09/25 mg/0.5 mL subcutaneous pen injector Current Visit Medications: Current Medications Generic Name Dose Route Start Last Admin Trade Name Rebekah PRN Reason Stop Dose Admin Ringer's Solution 1,000 mls @ 80 mls/hr 06/13/25 06:00 IV 06/13/25 23:59 INFUSION JULIO IV Miscellaneous Supplies 1 each 06/13/25 06:00 Iv Access IV 06/13/25 23:59 DIRECTED JULIO Sodium Biphosphate/Sodium Phosphate 133 - 266 ml 06/13/25 06:00 Na Phosphate Enema-Adult 133 Ml Btl MA 06/13/25 23:59 PRN PRN Sodium Chloride 0 ml 06/13/25 06:00 Normal Saline Flush 10 Ml Syr IV 06/13/25 23:59 PRN PRN Sodium Chloride 0 ml 06/13/25 06:00 Normal Saline 10 Ml Vial IJ 06/13/25 23:59 DIRECTED PRN Sterile Water 0 ml 06/13/25 06:00 Water,Injection,Sterile 10 Ml Vial IJ 06/13/25 23:59 DIRECTED PRN PFSH Active Problems Active Problems: Problem Status Onset Code Chronic diarrhea Acute K52.9 Chronic nausea Acute R11.0 Appendix disease Acute K38.9 Gastric bypass status for obesity Acute Z98.84 Postsurgical malabsorption Acute K91.2 History of Analia-en-Y gastric bypass Acute Z98.84 RLQ abdominal pain Acute R10.31 Acute stress reaction Acute F43.0 Closed fracture of metaphysis of distal end of left radius Acute 09/27/24 S52.592A Osteomalacia Acute M83.9 Abdominal mass, LUQ (left upper quadrant) Acute R19.02 Glucosuria Acute R81 Dental infection Acute K04.7 Seborrheic keratosis Acute L82.1 Vitamin D deficiency Acute E55.9 Altered gait Acute R26.9 Hematoma Acute T14.8XXA Upper back pain Acute M54.9 Neck pain Acute M54.2 Mass in neck Acute R22.1 Periodic heart flutter Acute I49.8 S/P partial gastrectomy Acute Z90.3 Syncope Chronic R55 Hypochromic anemia Acute D50.9 BPPV (benign paroxysmal positional vertigo) Acute H81.10 Restless legs Acute G25.81 Elevated LFTs Acute R79.89 Arthralgia Acute M25.50 Microcytosis Acute R71.8 Left wrist pain Acute M25.532 Left upper arm pain Acute M79.622 Painful lumpy right breast Acute N64.4, N63.10 Labial cyst Acute N90.7 Pelvic pain Acute R10.2 Medical History Medical History Urinary tract infection Obesity Gastroparesis Low back pain Hemorrhoids Anxiety about health Mild episode of recurrent major depressive disorder PTSD (post-traumatic stress disorder) Hx of colonic polyp Hiatal hernia with GERD Barretts esophagus with dysplasia Tibial plateau fracture, left orif, metal in left tibia UTI (urinary tract infection) Left flank pain Chronic bladder pain Medical History Comments:: left knee metal implants Surgical History Surgical History H/O right breast biopsy Hx of knee surgery Hx of hysterectomy History of esophagogastroduodenoscopy (EGD) History of cholecystectomy History of partial gastrectomy History of Magdaleno fundoplication History of laparoscopy Hx of section H/O hysterectomy with oophorectomy Unilateral oophorectomy for endometriosis Tobacco Smoking/Tobacco Use Status: Former Tobacco Use Passive smoking exposure: Yes Second hand exposure: Yes Alcohol Alcohol Intake: current Alcohol intake frequency: holidays/special occasions only Alcohol type: wine Substance Use Substance use: Never Substance use type: does not use Prental History History 3 Para 2 Hx # Term Pregnancies 2 Multiple births Hx # Pregnancies Ectopic pregnancies AB induced Hx Number of Living Children 2 AB spontaneous Vital Signs and Lab Results Vital Signs Most Recent Vital Signs in EMR: Most Recent Vital Signs Temp Pulse Resp BP Pulse Ox 36.6 C 84 16 104/78 99 06/13/25 07:10 06/13/25 07:10 06/13/25 07:10 06/13/25 07:10 06/13/25 07:10 Anesthesia Assessment and Plan Anesthesia History Personal History: PONV Family History: No Family History of Anesthesia Complications Exercise Tolerance Exercise Tolerance: Metabolic Equivalents>4 Cardiac & Pulmonary Exam Cardiac Exam: Normal S1/S2 Heart Sounds Pulmonary Exam: Clear Bilateral Breath Sounds Implantable Cardiac Device Does patient have a Pacemaker or an ICD?: No Airway Exam Known Difficult Airway: No Mallampati Class: 2 Mouth Opening: Normal (> 3cm) Thyromental Distance: Greater than 3 cm Neck Range of Motion: Full ROM Neck Circumference: Normal Teeth Condition: Normal Dentition ASA Classification ASA Score: ASA 2 Emergency Case?: No NPO Status NPO Status: NPO Clears >2 hours, Solids >8 hours Status Status: History of Hysterectomy Anesthesia Plan Resuscitation Status: Full Code Anesthesia Technique: General Anesthesia Airway Planned: Natural Airway Monitors Used: Standard Monitors
[2025-06-13 07:39] VITALS: BMI 25.1
[2025-06-13] MEDS: Lactated Ringers 1,000 ML 80 ML IV (07:50)
--- NOTE | 2025-06-13 08:19 | W.PM.HP.N ---
Date of service: 06/13/25 Time of Service: 08:42 Assessment and Plan Assessment and plan (1) History of Terrie-en-Y gastric bypass: Status: Acute Assessment and plan: Significant surgical history for complications of reflux and barretts with dysplasia including a terrie en y gastric bypass, TAHBSO for endometriosis that was severe, multiple takeback operations. complex and hostile abdomen. Severe persistent RLQ pain, I suspect due to the appendix being abnormally clogged with contrast. Not enough to cause appendicitis and surgery to remove it is likely to be high risk for injury to nearby organs due to scarring and adhesions. we will continue to monitor her RLQ pain. At risk for appendicitis. For bilious emesis in bypass patient, I recommend EGD at this time to rule out gastrogastric fistula. Distal obstruction has been ruled out with fluoro study. Also will allow dilation of her GJ anastomosis if this is causing her trouble eating. (2) Chronic diarrhea: Status: Acute Assessment and plan: Chronic diarrhea, malabsorption and malnutrition. Colonoscopy with biopsies today to rule out microscopic colitis and IBD. (3) Chronic nausea: Status: Acute History of Present Illness History of Present Illness Chief Complaint: endoscopy Narrative: Bile emesis, chrnic nausea, heartburn despite terrie en y gastric bypass. Severe RLQ pain, chronic, persistent. CT shows appendix w residual gummed in contrast over multiple scans. At risk for appendicitis but with chronic pain from it. Diarrhea and malabsorption. Malnutrition is post surgical malabsorption seen in terrie en y patients, but exacerbated by this severe chronic diarrhea. endoscopy today to evaluate for microscopic colitis and IBD. She was not bebeto to try colestipol since our last visit due to her son getting in a motorcycle accident and is now a quadriplegic. She has been going through a lot emotionally. [facility] All Active Problems Chronic diarrhea (Acute) Chronic nausea (Acute) Appendix disease (Acute) Gastric bypass status for obesity (Acute) Postsurgical malabsorption (Acute) History of Terrie-en-Y gastric bypass (Acute) RLQ abdominal pain (Acute) Acute stress reaction (Acute) Closed fracture of metaphysis of distal end of left radius (Acute 09/27/24) Osteomalacia (Acute) Abdominal mass, LUQ (left upper quadrant) (Acute) Glucosuria (Acute) Dental infection (Acute) Seborrheic keratosis (Acute) Vitamin D deficiency (Acute) Altered gait (Acute) Hematoma (Acute) Upper back pain (Acute) Neck pain (Acute) Mass in neck (Acute) Periodic heart flutter (Acute) S/P partial gastrectomy (Acute) Syncope (Chronic) Hypochromic anemia (Acute) check CBC and ferritin q6-12m, refer back to hem/onc for iron transfusion for ferritin <30 BPPV (benign paroxysmal positional vertigo) (Acute) Restless legs (Acute) Elevated LFTs (Acute) Arthralgia (Acute) Microcytosis (Acute) Left wrist pain (Acute) Left upper arm pain (Acute) Painful lumpy right breast (Acute) Labial cyst (Acute) Right, 1 cm Pelvic pain (Acute) Medical History Vomiting bile Appendicolith Celiac artery stenosis per CT Hx of endometriosis Urinary tract infection Obesity Gastroparesis Low back pain Hemorrhoids Anxiety about health Mild episode of recurrent major depressive disorder PTSD (post-traumatic stress disorder) Hx of colonic polyp Hiatal hernia with GERD Barretts esophagus with dysplasia Tibial plateau fracture, left orif, metal in left tibia UTI (urinary tract infection) Left flank pain Chronic bladder pain Surgical History H/O right breast biopsy Hx of knee surgery Hx of hysterectomy History of esophagogastroduodenoscopy (EGD) History of cholecystectomy History of partial gastrectomy History of Magdaleno fundoplication History of laparoscopy Hx of section H/O hysterectomy with oophorectomy Unilateral oophorectomy for endometriosis Family History Mother , 75 Cancer Cervical Depression Heart disease Hyperlipidemia Stroke Father , 81 Diabetes Hypertension Brother , 51 Heart disease Hyperlipidemia Stroke Brother Heart disease Hyperlipidemia Hypertension Son No problems noted. Son No problems noted. Maternal Grandfather , 77 Cancer Lung Diabetes Heart disease Stroke Paternal Grandfather , 75 Diabetes Heart disease Hypertension Maternal Grandmother , 63 Cancer Breast Diabetes Stroke Paternal Grandmother , 76 Cancer Ovarian Heart disease Hypertension Stroke Social History Smoking/Tobacco Use Status: Former Tobacco Use tobacco type: cigarettes Quit Date: 09/15/94 Tobacco: How many years used: 20 Second Hand Exposure: Yes Smoking risk assessment performed?: Yes Alcohol Intake: current Alcohol Intake frequency: holidays/special occasions only Alcohol type: wine Drug use: Never Substance use type: does not use Adopted: No Household members: spouse and children Housing: house Number of Children: 4 number of grandchildren: 6 Communication Needs: None Education Level: college 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 Pets and animals: Yes Pets and animals: cat(s), dog(s) and horse(s) Sexually active: Yes Do you think of yourself as: straight/heterosexual Current gender identity: female What is your relationship status?: How often do you talk on the phone with friends or family?: twice per week How often do you get together with friends or relatives?: twice per week How often do you attend religious or denominational services?: 1-3 times per year Do you belong to any clubs or organized social groups?: no Panel score (0-1 are the most socially isolated patients): 2 What type of physical activity do you participate in: walking Duration: 15-30 minutes/day Frequency: 3-4 times per week Radha/Religious: Non yazdanism Special radha needs: No Seatbelt use: always Helmet use: Yes Helmet use: always Drive intox or ride w/intox company 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 Meds Allergies and Home Medications Allergies Allergy/AdvReac Type Severity Reaction Status Date / Time bupropion (From Wellbutrin) Allergy Severe Pt states Verified 06/13/25 07:31 serum sickness onion Allergy Severe Anaphylaxis Verified 06/13/25 07:31 escitalopram AdvReac Intermediate Agitation Verified 06/13/25 07:31 Home Medications ?Medication ?Instructions ?Recorded ?Confirmed ?Type pantoprazole 40 mg tablet,delayed 40 mg PO BID 10/20/23 06/13/25 History release albuterol sulfate 90 mcg/actuation 2 puff inhalation Q6H PRN 02/16/24 06/13/25 Rx aerosol inhaler (Proventil HFA) shortness of breath or wheezing #8.5 grams epinephrine 0.3 mg/0.3 mL 0.3 mg (0.3 mL) IM ONCE #2 ea 02/16/24 06/13/25 Rx injection, auto-injector ibuprofen 800 mg tablet 800 mg PO Q8H PRN pain #20 tabs 06/24/24 06/13/25 Rx ergocalciferol (vitamin D2) 1,250 1,250 mcg PO DAILY 08/15/24 06/13/25 History mcg (50,000 unit) capsule propranolol 20 mg tablet 20 mg PO TID PRN anxiety #90 tabs 11/22/24 06/13/25 Rx buspirone 5 mg tablet 5 mg PO TID #90 tabs 02/25/25 06/10/25 Rx acetaminophen 325 mg tablet 650 mg (2 x 325 mg) PO Q4H PRN PRN 03/17/25 06/13/25 Rx #100 tabs ferrous sulfate 325 mg (65 mg 325 mg PO Q OTHER DAY #0 tabs 03/17/25 06/13/25 Rx iron) tablet (Feosol) ondansetron 4 mg disintegrating 4 mg PO Q6H PRN nausea and 03/17/25 06/13/25 Rx tablet vomiting #20 tabs semaglutide (weight loss) 0.5 0.5 mg (0.5 mL) subcut QWEEK #2 mL 06/07/25 06/10/25 Rx mg/0.5 mL subcutaneous pen injector semaglutide (weight loss) 0.25 0.25 mg (0.5 mL) subcut QWEEK #5 mL 06/09/25 06/13/25 Rx mg/0.5 mL subcutaneous pen injector Exam Narrative Exam Narrative: awake, NAD eomi, MMM midline trachea, neck is symmetric PULM: normal resp effort, equal chest rise with respiration, no wheezing audible CARDIAC: normal PMI, no jvd, regular rate, normal perfusion abdomen is nondistended. extremities are without deformity, normal movement of all four extremities speech is clear and coherent mood and affect are congruent, no focal neurological deficits skin without rash Results Last Vital Signs Temp 97.9 F 06/13/25 07:10 Pulse 84 06/13/25 07:10 Resp 16 06/13/25 07:10 BP 104/78 06/13/25 07:10 Pulse Ox 99 06/13/25 07:10 Time Spent Time spent with Patient: <40 minutes Time was spent: preparing to see the patient(eg.review tests), referring, communicating with other health long term acute care registered nurse and counseling the patient
--- NOTE | 2025-06-13 08:26 | W.PM.DSUDISC ---
Date of service: 06/13/25 Discharge Plan Disposition Patient Disposition: Home Condition: Stable Discharge Details Attending Provider: Norma Teixeira Primary Care Provider: Mike Rivas Home Meds and New Rx's Prescriptions: New colestipol [Colestid] 1 gram tablet 1 g PO DAILY Qty: 30 3RF Continued albuterol sulfate [Proventil HFA] 90 mcg/actuation HFA aerosol inhaler 2 puff inhalation Q6H PRN (Reason: shortness of breath or wheezing) Qty: 8.5 0RF epinephrine 0.3 mg/0.3 mL auto-injector 0.3 mg IM ONCE Qty: 2 0RF Rx Instructions: as a single dose; may repeat once ibuprofen 800 mg tablet 800 mg PO Q8H PRN (Reason: pain) Qty: 20 0RF propranolol 20 mg tablet 20 mg PO TID PRN (Reason: anxiety) Qty: 90 0RF Patient Comments: pt has, but has not been taking buspirone 5 mg tablet 5 mg PO TID Qty: 90 0RF pantoprazole 40 mg tablet,delayed release (DR/EC) 40 mg PO BID semaglutide (weight loss) 0.5 mg/0.5 mL pen injector 0.5 mg subcut QWEEK Qty: 2 12RF semaglutide (weight loss) 0.25 mg/0.5 mL pen injector 0.25 mg subcut QWEEK Qty: 5 0RF Rx Instructions: Concentration: Cyanocobalamin 0.5mg/Semaglutide 1mg/mL Semaglutide and cyanocobalamin for compounding. Patient requires additional drug component to decrease risk of side effects of fatigue Week 1-4: Inject 0.25mL (25 syringe units) once weekly Week 5-8: Inject 0.5mL (50 syringe units) once weekly Week 9-12: Inject 1mL (100 syringe units) once weekly acetaminophen 325 mg Tablet 650 mg PO Q4H PRN PRNQty: 100 0RF ferrous sulfate [Feosol] 325 mg (65 mg iron) tablet 325 mg PO Q OTHER DAY Qty: 0 0RF ondansetron 4 mg tablet,disintegrating 4 mg PO Q6H PRN (Reason: nausea and vomiting) Qty: 20 0RF ergocalciferol (vitamin D2) 1,250 mcg (50,000 unit) capsule 1,250 mcg PO DAILY Discharge Instructions Additional Instructions: EGD shows a healthy bypass. DEsophagus looks good, no signs of damage or precancer like you had before. No fistula from pouch to old stomach, and no stricture or narrow spots. No ulcers. Normal colonoscopy overall without findings to explain the diarrhea. This means I dont see crohns disease or ulcerative colitis or any other obvious bad finding. We will follow up on biopsy results from today to rule out microscopic colitis issues that require steroids to fix. I suspect these will be normal/negative but we will see what they show. Start colestipol for diarrhea. Prescription resent to pharmacy today. I suspect you have a component of bile salt induced diarrhea which is a consequence of gallbladder being removed. Need to slow the transit time in the bowel and colon to improve the malabsorption that is occurring. Colestipol will do that. Recommend fiber supplementation for the diverticulosis that I saw today. Diverticulosis is mild to moderate, and adding fiber will protect you from getting an infection in them. Fiber will help with diarrhea as well. I like powdered supplements like metamucil and benefiber. Pick some up today as a part of the treatment plan. See me in office in 2-4 weeks to check on your symptoms. I think your pain will get better when you stop dumping all of the contents of your guts. I think it irritates the bowel and the appendix that your stools move so fast. Nutrition will also improve with improved absorption. Next screening colonoscopy will be due in 10 years. Activity:: Activity as Tolerated Diet:: As Tolerated Discharge Orders Discharge Orders: Discharge Order (Routine); Ordered 06/13/25 Ordered By: Norma Teixeira DS: Diagnosis Discharge Diagnosis (1) History of Analia-en-Y gastric bypass: Status: Acute (2) Chronic diarrhea: Status: Acute (3) Chronic nausea: Status: Acute (4) Diverticulosis, sigmoid: Status: Acute
--- NOTE | 2025-06-13 08:45 | W.COLOREPORT ---
Date of service: 06/13/25 Time of Service: 09:21 Colonoscopy Report Date of procedure: 06/13/25 Pre-op diagnosis general: Diarrhea of unknown origin Post-op diagnosis procedure note: same (Diarrhea of unknown origin, diverticulosis of sigmoid colon) Procedure: Colonoscopy with biopsy Surgeon: Norma Teixeira Anesthesia Type: General:No Airway Estimated blood loss (mL): 2 Pathology: other (1. Terminal ileum biopsy. 2. ascending colon biopsy. 3. transverse colon biopsy. 4. descending colon biopsy. 5. Rectum biopsy) Prep: Miralax/Dulcolax (Excellent) Procedure Description: Informed consent was obtained and the patient was taken to the procedure area. The patient was placed in left lateral decubitus position on the procedure table. Timeout was performed. Anesthesia was induced. A lubricated colonoscope was inserted through the anus and passed to the cecum. The cecum was identified by the ileocecal valve and the appendiceal orifice. The scope was then slowly withdrawn and the colonic and rectal mucosa examined. TI intubated and examined. It appears normal. There are no colon or rectal mass lesions, polyps, AVMs. There is no inflammatory change. Sigmoid diverticulosis was seen. Small and large mouthed diverticula noted, no diverticuitis. Degree of diverticulosis is moderate. The scope was retroflexed in the anorectal junction examined. Uncomplicated internal hemorrhoids w tags present. Cold forceps biopsies obtained for evaluation for microscopic colitis. Biopsies obtained from terminal ileum, ascending colon, transverse colon, descending colon and rectum. Assessment and plan: chronic malnutrition chronic diarrhea chronic RLQ pain Diverticulosis of sigmoid colon Normal colonoscopy overall without findings to explain the diarrhea. will follow up biopsy results to rule out microscopic colitis. Start colestipol for diarrhea. Rx resent to pharmacy today. She has had cholecystectomy and has a component of bile salt induced diarrhea. Need to slow the transit time in the bowel and colon to improve the chronic malabsorption that is occurring. Recommend fiber supplementation for the diverticulosis. This will help with diarrhea as well. Next screening colonoscopy will be due in 10 years.
--- NOTE | 2025-06-13 08:46 | W.PM.ENDDOP ---
Date of service: 06/13/25 Time of Service: 08:59 Endoscopy Report DATE OF PROCEDURE: 06/13/25 PRE-OP DIAGNOSIS: Bile emesis in terrie en y patient, chronic nausea POST-OP DIAGNOSIS: same PROCEDURE: EGD with biopsy SURGEON: Norma Teixeira ANESTHESIA TYPE: General:No Airway ESTIMATED BLOOD LOSS: 2 PATHOLOGY: none sent COMPLICATIONS: None DISPOSITION: same day INDICATIONS: Rule out gastrogastric fistula, rule out stricture of GJ anastomosis PROCEDURE DESCRIPTION: Lubricated endoscope was passed through a bite block into the gastric pouch. Gastric bypass examined. Gastrojejunal anastomosis is patent. No marginal ulcers. No strictures. Blind limb is 2cm. Pouch size is 5cm. GE junction is present at 35cm from the incisors. The distal esophagus is normal without ulceration, varices or candidiasis. The Z-line is regular. Remainder of the esophagus appears normal The upper digestive system was desufflated and the endoscope withdrawn. No complications. Assessment and plan: Chronic nausea Bile emesis in bypass patient No evidence of bile reflux or bile present in pouch today. There is no evidence of gastrogastric fistula. There is no evidence of distal obstruction on todays exam. No marginal ulcers, no GJ anastomotic stricture. I do not see inflammatory change of the esophagus. Recommend continued PPI for heartburn symptoms and complex history of Barretts esophagus. Proceed w colonoscopy to evaluate for cause for her symptoms.
--- NOTE | 2025-06-13 09:10 | BOWEL_PTH ---
PATIENT: Mora Bolanos LOC: [facility] U#:[id number] AGE/SX: 50/F ROOM: RE06/13/[address]: Norma Teixeira MD : [id number] BED: DIS: 06/13/2025 SPEC #: [id number] RECD: 06/13/25 12:37 STATUS: SOPHIE REQ #: [id number] AMBER: 06/13/25 09:[address]: Norma Teixeira DEPT: Surgical Specimen RECD BY: Silvia Cruz ENTERED: 06/13/25 12:38 SP TYPE: Bowel OTHR DR: Mike Martinez, KYLE Tissues: 1 - BIOPSY BOWEL 2 - BIOPSY BOWEL 3 - BIOPSY BOWEL 4 - BIOPSY BOWEL 5 - BIOPSY BOWEL Procedures: GROSS AND MICRO LEVEL 4 Comments: [id number]
[2025-06-13 09:22] VITALS: BP 114/76; PULSE 73; RESP 16; TEMP 36.4; O2SAT 99
--- NOTE | 2025-06-13 09:40 | W.ANESPOSTOP ---
Postoperative Evaluation Date, Time and Location Date Performed: 06/13/25 Time Performed: 09:40 Patient Location: Day Surgery Unit Vital Signs Most Recent Imported Vital Signs: Most Recent Vital Signs Temp Pulse Resp BP Pulse Ox 36.4 C L 73 16 114/76 99 06/13/25 09:22 06/13/25 09:22 06/13/25 09:22 06/13/25 09:22 06/13/25 09:22 Pain Score Most Recent Pain Score: Most Recent Pain Score Pain Level 0 06/13/25 09:22 Assessment Mental Status: Awake (Alert & Oriented to Patient Baseline) Airway and Respiratory Function: Patent airway with normal (patient baseline) respiratory exam Cardiovascular Function: Hemodynamically Stable Hydration Status: Adequately Hydrated Nausea & Vomiting: No Nausea or Vomiting Pain: Pt. Denies Any Pain Peripheral Nerve Block: Patient did not receive a nerve block
[2025-06-13 09:45] VITALS: BP 117/77; PULSE 62; RESP 16; TEMP 36.3; O2SAT 99
== END 2025-06-13 10:15 | disposition home or self-care (01) ==
PROVIDERS: PCP Nurse Practitioner Family; Visit Provider Surgery
PROC: (CPT 45380; principal; 2025-06-13 08:15)
DX: K52.9 Noninfective gastroenteritis and colitis, unspecified (principal); Z98.84 Bariatric surgery status; R11.0 Nausea; K57.30 Diverticulosis of large intestine without perforation or abscess without bleeding
CPT/HCPCS: 45380; 43239; 88305; J2003; J2704

== ENCOUNTER 2025-06-27 02:06 | Outpatient (CLI) | payer OTHER, SELFPAY ==
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
== END 2025-06-27 02:26 ==
PROVIDERS: PCP Nurse Practitioner Family; Visit Provider Nurse Practitioner Family
DX: V89.2XXA Person injured in unspecified motor-vehicle accident, traffic, initial encounter (principal); M25.511 Pain in right shoulder; M25.531 Pain in right wrist; M25.521 Pain in right elbow; M54.2 Cervicalgia; M54.9 Dorsalgia, unspecified
CPT/HCPCS: 71046; 72072; 73030; 73080; 73110

== ENCOUNTER 2025-07-09 15:39 | Outpatient (REF) | payer OTHER, SELFPAY ==
[2025-07-09 16:33] LABS: WBC 0-2 HPF (0-5)
== END 2025-07-09 15:40 | disposition home or self-care (01) ==
LOC: LBN 15:39
PROVIDERS: PCP Nurse Practitioner Family; Visit Provider Physician Assistant Medical
DX: R30.0 Dysuria (principal)
CPT/HCPCS: 81015; 87086